=== PATIENT | female | born 1965 | race Caucasian/White ===

== ENCOUNTER 2019-02-06 18:19 | Emergency (ER) | payer MEDICARE, MEDICAID, SELFPAY ==
[2019-02-06 18:21] VITALS: BP 165/94; PULSE 110; RESP 20; TEMP 36.5; O2SAT 99; BMI 35.2
--- NOTE | 2019-02-06 18:26 | ED_ITS ---
Entered by Theresa Freeman, acting as scribe for HPI - Chest Pain General: Chief Complaint: Dizziness Stated Complaint: dizziness Time Seen by Provider: 02/06/19 18:32 Source: patient Mode of arrival: EMS Limitations: no limitations History of Present Illness: HPI narrative: 53 yo female presents with dizziness. per pt she was recently seen and admitted and discharged. pt has chronic shortness of breath. pt denies any other symptoms at this time. Onset (ago): day(s) Prior episodes: Yes Onset: during rest Associated symptoms: Reports dyspnea; Deny abdominal pain, fever(s), nausea or vomiting Review of Systems Const: Reports: other (dizziness episodes); Denies: fever Eyes: Denies: change in vision ENMT: Denies: throat pain or mouth pain Card: Denies: chest pain Resp: Reports: shortness of breath GI: Denies: abdominal pain, nausea, vomiting or diarrhea : Denies: difficulty urinating Musc: Denies: back pain or joint pain Skin/Breast: Denies: rash Neuro: Denies: headache or behavioral changes Psych: Denies: depression Endo: Denies: excessive urination Peter/Lymph: Denies: easy bruising All/Imm: Denies: hives PFSH ED PFSH: Statuses (acute, chronic, etc) shown below reflect problem list status as previously entered and may not be historically accurate Social History Smoking and tobacco status: former smoker Physical Exam Const: COMMON NORMALS: no apparent distress, oriented x3 and healthy appearing HENMT: COMMON NORMALS: normocephalic and external nose normal HEAD & SCALP: normocephalic NOSE: external nose normal Eye: COMMON NORMALS: PERRL PUPIL: Yes PERRL Neck/C-Spine: COMMON NORMALS: full ROM and no lymphadenopathy Chest: COMMONS NORMALS: inspection of chest normal Resp: COMMON NORMALS: normal respiratory effort, no use of accessory muscles and clear to auscultation bilaterally AUSCULTATION: clear to auscultation bilaterally Cardio: COMMON NORMALS: regular rate (tachycardic) and regular rhythm RATE: regular rate (tachycardic) RHYTHM: regular rhythm GI: COMMON NORMALS: normal to inspection, nondistended, normoactive bowel sounds, soft to palpation, non-tender and no masses PALPATION: Yes soft Back/Pelvis: THORACIC SPINE/UPPER BACK: Yes normal to inspection Extremity: COMMON NORMALS: normal to inspection, full ROM and normal capillary refill Neuro: COMMON NORMALS: oriented x3 Psych: COMMON NORMALS: mental status grossly normal and cooperative Skin: COMMON NORMALS: no rashes or lesions noted GENERAL SKIN EXAM: no rashes or lesions noted Course Vital Signs: Vital signs: Vital Signs Temperature 97.9 F 02/07/19 00:03 Pulse Rate 95 02/07/19 01:10 Respiratory Rate 20 H 02/07/19 01:10 Blood Pressure 145/91 02/07/19 00:03 Pulse Oximetry 92 02/07/19 01:10 MDM - Chest Pain MDM Narrative: Medical decision making narrative: Patient presents here with dizziness along with shortness of breath that is chronic in nature. Patient is well-appearing here and in no distress. Patient is stable for discharge and is to follow-up with primary care doctor in 3 to 5 days. Lab Data: Labs: Lab Results 02/06/19 02/06/19 02/06/19 Range/Units 18:45 18:45 18:45 WBC 15.1 H (4.0-10.0) 10^3/ uL RBC 4.04 L (4.1-5.3) 10^6/u L Hgb 12.1 (11.5-15.3) g/dL Hct 37.6 (37.0-47.0) % MCV 93.1 (81-99) fL MCH 30.0 (28.0-34.0) pg MCHC 32.2 (30.0-36.0) g/dL RDW 12.9 (12.1-15.1) % Plt Count 287 (130-400) 10^3/c mm MPV 10.6 H (7.4-10.4) fL Neut % (Auto) 89.7 % Lymph % (Auto) 5.2 % [place] % (Auto) 3.4 % Eos % (Auto) 0.1 % Baso % (Auto) 0.1 % Neut # (Auto) 13.5 H (1.8-7.7) 10^3/u L Lymph # (Auto) 0.8 (0.8-4.8) 10^3/u L [place] # (Auto) 0.5 (0.2-0.9) 10^3/u L Eos # (Auto) 0.0 (0.0-0.8) 10^3/u L Baso # (Auto) 0.0 (0.0-0.1) 10^3/u L Nucleated RBC % (a uto) 0 % Nucleated RBCs # 0.0 /100WBC Sodium 136 (136-145) mmol/L Potassium 4.1 (3.5-5.1) mmol/L Chloride 94 L (98-107) mmol/L Carbon Dioxide 24 (22-29) mmol/L Anion Gap 22.1 H (5-19) BUN 27 H (6-20) mg/dL Creatinine 1.1 H (0.5-0.9) mg/dL GFR Calculation 51.8 L (90-130) mL/min Glucose 186 H (74-109) mg/dL Calcium 10.0 (8.6-10.0) mg/Dl Total Bilirubin 0.7 (0.15-1.2) mg/dL AST 10 (0-32) U/L ALT 9 (0-33) U/L Alkaline Phosphata se 71 (35-105) IU/L Troponin T Baselin e 21 H (0-10) ng/mL Troponin T 120 Min [place] (0-10) ng/mL Delta Troponin T (0-10) ABS# Total Protein 6.7 (6.6-8.7) g/dL Albumin 4.3 (3.5-5.2) g/dL Globulin 2.4 (1.3-4.6) g/dL 02/06/19 Range/Units 20:46 WBC (4.0-10.0) 10^3/ uL RBC (4.1-5.3) 10^6/u L Hgb (11.5-15.3) g/dL Hct (37.0-47.0) % MCV (81-99) fL MCH (28.0-34.0) pg MCHC (30.0-36.0) g/dL RDW (12.1-15.1) % Plt Count (130-400) 10^3/c mm MPV (7.4-10.4) fL Neut % (Auto) % Lymph % (Auto) % [place] % (Auto) % Eos % (Auto) % Baso % (Auto) % Neut # (Auto) (1.8-7.7) 10^3/u L Lymph # (Auto) (0.8-4.8) 10^3/u L [place] # (Auto) (0.2-0.9) 10^3/u L Eos # (Auto) (0.0-0.8) 10^3/u L Baso # (Auto) (0.0-0.1) 10^3/u L Nucleated RBC % (a uto) % Nucleated RBCs # /100WBC Sodium (136-145) mmol/L Potassium (3.5-5.1) mmol/L Chloride (98-107) mmol/L Carbon Dioxide (22-29) mmol/L Anion Gap (5-19) BUN (6-20) mg/dL Creatinine (0.5-0.9) mg/dL GFR Calculation (90-130) mL/min Glucose (74-109) mg/dL Calcium (8.6-10.0) mg/Dl Total Bilirubin (0.15-1.2) mg/dL AST (0-32) U/L ALT (0-33) U/L Alkaline Phosphata se (35-105) IU/L Troponin T Baselin e (0-10) ng/mL Troponin T 120 Min [place] 17.69 H (0-10) ng/mL Delta Troponin T -3.31 L (0-10) ABS# Total Protein (6.6-8.7) g/dL Albumin (3.5-5.2) g/dL Globulin (1.3-4.6) g/dL Imaging Data^: CXR: Attestation: I personally reviewed and interpreted this imaging study as follows: My impression: no acute abnormality EKG Data^: EKG 1: Attestation: I personally reviewed and interpreted this EKG as follows: EKG interpretation date: 02/07/19 EKG interpretation time: 19:40 Interpretation: nsr hr [address] or t wave abnormalities qrs 100 qtc 402 EKG 2: Attestation: I personally reviewed and interpreted this EKG as follows: EKG interpretation date: 02/06/19 EKG interpretation time: 20:45 Interpretation: nsr hr [address] or t wave abnormalites qrs 98 qtc 407 EKG 3: EKG interpretation date: 02/07/19 EKG interpretation time: 00:30 Interpretation: nsr hr [address] or t wave abnormalites qrs 98 qtc 417 Discharge Plan Discharge Patient Disposition: Home, Self-Care Clinical Impression: Dizziness Condition: Stable Discharge Orders: Discharge Order (Routine); Ordered 02/07/19 Ordered By: Tenisha Casey Referrals: Martin Jovel MD [Primary Care Provider] - Discharge Diet: Advance as tolerated Discharge Activity: Resume usual activity Patient Instructions: Dizziness (ED) Discharge Date/Time: 02/07/19 01:00 Coding Level of Care Code ED Or Assistant for Chg Fwd Exam Problem Focused The documentation recorded by the Pete gamboa Bridget Annette, accurately reflects the service I personally performed and the decisions made by Jacinto gleason Korby, MD
[2019-02-06 18:32] VITALS: O2SAT 99
--- NOTE | 2019-02-06 18:32 | XR_ITS ---
WS: [id number] Portable AP upright chest, 02/06/2019 Clinical Data: dyspnea Comparison: Portable chest, 02/01/2019 Findings: No nodules, masses or effusions are seen. The heart is normal. The pulmonary vascularity is not increased. No pneumonia or pneumothorax is seen. Monitor leads are on the chest wall. XR/XR chest 1V 39332 Impression: Negative chest.
--- NOTE | 2019-02-06 18:32 | ECG_ITS ---
Measurements Intervals [place] Rate: 91 P: 51 OR: 112 QRS: 33 QRSD: 98 T: 40 QT: 358 QTc: 442 SINUS RHYTHM WITH SHORT OR INTERVAL POSSIBLE RIGHT VENTRICULAR CONDUCTION DELAY [RSR (QR) IN V1/V2] MINIMAL ST DEPRESSION [0.025+ mV ST DEPRESSION] No previous ECG available for comparison Electronically Signed On 02-07-2019 6:46:03 TOTER by Amanda Bourgeois M.D. [email or web address]/store/[id number]
[2019-02-06] MEDS: sodium chloride 0.9% 1,000 ML 999 ML IV (18:58)
[2019-02-06] MEDS: LORazepam 2 mg/mL INJ 1 mL 1 MG IVP (18:59)
[2019-02-06 19:02] VITALS: BP 169/109; PULSE 85; RESP 21; TEMP 36.7; O2SAT 98
[2019-02-06 19:12] LABS: Troponin(5th) Baseline 21 ng/mL (0-10)
--- NOTE | 2019-02-06 19:27 | PC.NURSE ---
Assisted patient to bedside commode with little assistance. collected urine just in case UA is needed. Noticed patient's IV was not properly secure, altered nurse and was properly re-secured.
[2019-02-06 19:48] LABS: Basophils % 0.1 %; Eosinophils % 0.1 %; Hematocrit 37.6 % (37.0-47.0); Hemoglobin 12.1 g/dL (11.5-15.3); Lymphocytes # 0.8 10^3/uL (0.8-4.8); Lymphocytes % 5.2 %; Mean Corpuscular HGB Conc 32.2 g/dL (30.0-36.0); Mean Corpuscular Volume 93.1 fL (81-99); Mean Platelet Volume 10.6 fL (7.4-10.4); Monocytes # 0.5 10^3/uL (0.2-0.9); Monocytes % 3.4 %; Neutrophils # 13.5 10^3/uL (1.8-7.7); Neutrophils % 89.7 %; Nucleated Red Blood Cells % 0 %; Platelet Count 287 10^3/cmm (130-400); Red Blood Count 4.04 10^6/uL (4.1-5.3); Red Cell Distribution Width 12.9 % (12.1-15.1); White Blood Count 15.1 10^3/uL (4.0-10.0)
--- NOTE | 2019-02-06 19:50 | PC.NURSE ---
Pt resting comfortably. NO needs at present.
[2019-02-06 20:02] VITALS: BP 137/104; PULSE 101; RESP 21; TEMP 36.6; O2SAT 99
[2019-02-06 20:02] LABS: Add RBC Morph No
--- NOTE | 2019-02-06 20:32 | ECG_ITS ---
Measurements Intervals [place] Rate: 98 P: 48 ID: 133 QRS: 30 QRSD: 100 T: 37 QT: 346 QTc: 443 SINUS RHYTHM POSSIBLE RIGHT VENTRICULAR CONDUCTION DELAY [RSR (QR) IN V1/V2] No previous ECG available for comparison Electronically Signed On 02-07-2019 7:01:45 UNINDENTURED APPRENTICE by Amanda Bourgeois M.D. [id number]
[2019-02-06] MEDS: sodium chloride 0.9% 500 ML 999 ML IV (20:52)
--- NOTE | 2019-02-06 21:00 | PC.NURSE ---
At time of EKG patient stated that she was having chest pain, doctor was informed.
[2019-02-06 21:57] VITALS: BP 132/90; PULSE 91; RESP 14; O2SAT 99
[2019-02-06 22:35] LABS: Troponin 5 2HR 17.69 ng/mL (0-10)
[2019-02-06 22:41] LABS: Troponin 5 2HR Delta -3.31 ABS# (0-10)
--- NOTE | 2019-02-06 22:43 | PC.NURSE ---
Patient requested that lights be turned off, lights have been turned off for her comfort.
[2019-02-06 23:00] LABS: Slide Review Slide Review Perform
[2019-02-06 23:37] LABS: Alanine Aminotransferase 9 U/L (0-33); Albumin Level 4.3 g/dL (3.5-5.2); Alkaline Phosphatase 71 IU/L (35-105); Anion Gap 22.1 (5-19); Aspartate Amino Transferase 10 U/L (0-32); Blood Urea Nitrogen 27 mg/dL (6-20); Carbon Dioxide 24 mmol/L (22-29); Chloride 94 mmol/L (98-107); Globulin 2.4 g/dL (1.3-4.6); Glomerular Filtration Rate 51.8 mL/min (90-130); Glucose 186 mg/dL (74-109); Potassium 4.1 mmol/L (3.5-5.1); Sodium 136 mmol/L (136-145); Total Bilirubin 0.7 mg/dL (0.15-1.2); Total Protein 6.7 g/dL (6.6-8.7)
[2019-02-07 00:03] VITALS: BP 145/91; PULSE 85; RESP 17; TEMP 36.6; O2SAT 99
--- NOTE | 2019-02-07 00:32 | ECG_ITS ---
Measurements Intervals [place] Rate: 80 P: 46 NC: 126 QRS: 29 QRSD: 98 T: 31 QT: 380 QTc: 441 SINUS RHYTHM POSSIBLE RIGHT VENTRICULAR CONDUCTION DELAY [RSR (QR) IN V1/V2] Compared to ECG 02/01/2019 19:52:19 Short NC interval no longer present Electronically Signed On 02-07-2019 6:54:40 [employer]KER by Amanda Bourgeois M.D. [id number]
[2019-02-07 01:10] VITALS: PULSE 95; RESP 20; O2SAT 92
== END 2019-02-07 01:00 | disposition home or self-care (01) ==
PROVIDERS: Emergency Provider Emergency Medicine; Family Provider Family Medicine; PCP Family Medicine
DX: R42 Dizziness and giddiness (principal); Z87.891 Personal history of nicotine dependence
CPT/HCPCS: 36415; 71045; 80053; 84484; 85025; 93005; 96360; 96361; 96374; 99283; J2060; J7030; J7040

== ENCOUNTER 2019-02-11 07:28 | Outpatient (CLI) | payer MEDICARE, MEDICAID, SELFPAY | END 2019-02-11 07:29 | disposition home or self-care (01) | PROVIDERS: Family Provider Family Medicine; PCP Family Medicine; Visit Provider Psychiatry & Neurology Clinical Neurophysiology | DX: R07.9 Chest pain, unspecified (principal) ==

== ENCOUNTER 2019-02-18 14:33 | Emergency (ER) | payer MEDICARE, MEDICAID, SELFPAY ==
[2019-02-18 14:34] VITALS: O2SAT 99
[2019-02-18 14:44] VITALS: BP 138/93; PULSE 87; RESP 24; TEMP 36.6; O2SAT 99; BMI 32.8
--- NOTE | 2019-02-18 14:48 | ED_ITS ---
Entered by Theresa Freeman, acting as scribe for HPI - Chest Pain General: Chief Complaint: Chest Pain Stated Complaint: chest pains Time Seen by Provider: 02/18/19 15:01 Source: patient and other (PCP nurse brought her to ED from clinic) Mode of arrival: wheelchair Limitations: no limitations History of Present Illness: HPI narrative: 53 yo female presents with chest pain. pt states this started today while at PCP clinic. pt has had shortness of breath. pt states she gets chest pain chronically but worsened today. pt states she is on oxygen at home as needed. pt denies any other symptoms at this time. MD complaint: chest pain Pertinent past history: other (COPD) Onset (ago): hour(s) (today) Timing of current episode: constant Prior episodes: Yes Onset: during rest Pain location: substernal Pain radiation: back Severity: mild Quality: tightness Exacerbating factors: nothing Associated symptoms: Reports no associated symptoms; Deny abdominal pain, fever(s), nausea, palpitations, syncope or vomiting Review of Systems Const: Denies: fever, chills, body aches, fatigue, malaise or night sweats Eyes: Denies: change in vision or blurry vision ENMT: Denies: throat pain, oral sores/lesions, dental pain, nasal discharge or nasal congestion Card: Denies: palpitations, irregular heart rhythm, edema, syncope, shortness of breath on exertion, shortness of breath when lying down or leg pain with exertion Resp: Denies: wheezing GI: Denies: abdominal pain, nausea, vomiting, vomiting blood, coffee grounds in vomit, difficulty swallowing, heartburn/indigestion, diarrhea, constipation, cramping, blood in stool or black tarry stool : Denies: flank pain, painful urination, urinary frequency, urinary urgency, urinary incontinence or blood in urine Musc: Denies: neck pain, back pain, extremity pain, extremity swelling, joint pain or joint swelling Skin/Breast: Denies: rash, itching or redness Neuro: Denies: headache, numbness in extremities, weakness in extremities, c hanges in sensation, lack of coordination, difficulty walking, frequent falls, dizziness, vertigo or confusion Psych: Denies: anxiety, depression, loss of interest, visual hallucinations, auditory hallucinations, suicidal ideation or homicidal ideation Endo: Denies: excessive urination, excessive thirst, tired all the time or cold intolerance Peter/Lymph: Denies: easy bruising, easy bleeding, petechiae, enlarged lymph nodes or tender lymph nodes PFSH ED PFSH: Statuses (acute, chronic, etc) shown below reflect problem list status as previously entered and may not be historically accurate Social History Smoking and tobacco status: unknown if ever smoked Quit status (tobacco): has quit using tobacco Year quit tobacco: 2018-5 ciggs/day Alcohol intake: never Current gender identity: Female Physical Exam Const: COMMON NORMALS: average body habitus and alert GENERAL APPEARANCE: cooperative, comfortable, well kempt and well developed NUTRITIONAL APPEARANCE: obese ORIENTATION/CONSCIOUSNESS: Yes awake, Yes oriented to person, Yes oriented to place and Yes oriented to time HENMT: COMMON NORMALS: normocephalic, head/scalp atraumatic, EAC's normal, TM's normal bilaterally, external nose normal, moist oral mucous membranes and oropharynx normal HEAD & SCALP: normocephalic and atraumatic NOSE: external nose normal EXTERNAL AUDITORY CANAL: EAC's normal TYMPANIC MEMBRANE: TM's normal bilaterally MOUTH: oral and palatal mucosa normal, lip normal and tongue normal THROAT: posterior oropharynx normal and tonsils normal Eye: COMMON NORMALS: PERRL, EOMs intact bilaterally, conjunctivae normal and no scleral icterus CONJUNCTIVA: Yes conjunctivae normal PUPIL: Yes PERRL Neck/C-Spine: COMMON NORMALS: full ROM, no lymphadenopathy, supple, no meningeal signs and thyroid normal THYROID: thyroid normal and asymmetrical Lymph: LYMPHATIC: no lymphadenopathy noted Cardio: COMMON NORMALS: regular rate and regular rhythm RATE: regular rate RHYTHM: regular rhythm HEART SOUNDS: no murmurs GI: COMMON NORMALS: normal to inspection, nondistended, normoactive bowel sounds, soft to palpation and no hepatosplenomegaly PALPATION: Yes soft and Yes no hepatosplenomegaly : COMMON NORMALS: Yes no CVA tenderness BLADDER/KIDNEY EXAM: Yes no CVA tenderness Back/Pelvis: COMMON NORMALS: no CVA tenderness LUMBAR SPINE/LOWER BACK: Yes normal to inspection Extremity: COMMON NORMALS: no clubbing, cyanosis or edema, no calf tenderness and no pedal edema Neuro: SENSORIUM/ORIENTATION: Yes alert, Yes oriented to person, Yes oriented to place and Yes oriented to time MENINGEAL SIGNS: Yes no meningeal signs Psych: APPEARANCE: Yes well kempt Skin: COMMON NORMALS: no rashes or lesions noted and skin turgor normal GENERAL SKIN EXAM: no rashes or lesions noted and turgor normal Course ED course: Themselves revolved resolved reviewed findings with the patient. No recommendations for admission. Continue same previous prescriptions return if has any complications or problems. Vital Signs: Vital signs: Vital Signs Temperature 97.8 F 02/18/19 14:44 Pulse Rate 70 02/18/19 18:10 Respiratory Rate 15 02/18/19 18:10 Blood Pressure 140/78 02/18/19 18:10 Pulse Oximetry 98 02/18/19 18:10 MDM - Chest Pain Lab Data: Labs: Lab Results 02/18/19 02/18/19 02/18/19 Range/Units 14:58 14:58 14:58 WBC 11.8 H (4.0-10.0) 10^3/ uL RBC 4.24 (4.1-5.3) 10^6/u L Hgb 12.7 (11.5-15.3) g/dL Hct 39.2 (37.0-47.0) % MCV 92.5 (81-99) fL MCH 30.0 (28.0-34.0) pg MCHC 32.4 (30.0-36.0) g/dL RDW 13.3 (12.1-15.1) % Plt Count 325 (130-400) 10^3/c mm MPV 9.6 (7.4-10.4) fL Neut % (Auto) 82.0 % Lymph % (Auto) 12.5 % [place] % (Auto) 3.6 % Eos % (Auto) 0.0 % Baso % (Auto) 0.2 % Neut # (Auto) 9.7 H (1.8-7.7) 10^3/u L Lymph # (Auto) 1.5 (0.8-4.8) 10^3/u L [place] # (Auto) 0.4 (0.2-0.9) 10^3/u L Eos # (Auto) 0.0 (0.0-0.8) 10^3/u L Baso # (Auto) 0.0 (0.0-0.1) 10^3/u L Nucleated RBC % (a uto) 0 % Nucleated RBCs # 0.0 /100WBC Sodium 131 L (136-145) mmol/L Potassium 4.5 (3.5-5.1) mmol/L Chloride 90 L (98-107) mmol/L Carbon Dioxide 26 (22-29) mmol/L Anion Gap 19.5 H (5-19) BUN 29 H (6-20) mg/dL Creatinine 1.0 H (0.5-0.9) mg/dL GFR Calculation 57.8 L (90-130) mL/min Glucose 163 H (74-109) mg/dL Calcium 10.0 (8.6-10.0) mg/Dl Troponin T Baselin e 41 H (0-10) ng/mL Troponin T 120 Min [place] (0-10) ng/mL Delta Troponin T (0-10) ABS# 02/18/19 Range/Units 16:57 WBC (4.0-10.0) 10^3/ uL RBC (4.1-5.3) 10^6/u L Hgb (11.5-15.3) g/dL Hct (37.0-47.0) % MCV (81-99) fL MCH (28.0-34.0) pg MCHC (30.0-36.0) g/dL RDW (12.1-15.1) % Plt Count (130-400) 10^3/c mm MPV (7.4-10.4) fL Neut % (Auto) % Lymph % (Auto) % [place] % (Auto) % Eos % (Auto) % Baso % (Auto) % Neut # (Auto) (1.8-7.7) 10^3/u L Lymph # (Auto) (0.8-4.8) 10^3/u L [place] # (Auto) (0.2-0.9) 10^3/u L Eos # (Auto) (0.0-0.8) 10^3/u L Baso # (Auto) (0.0-0.1) 10^3/u L Nucleated RBC % (a uto) % Nucleated RBCs # /100WBC Sodium (136-145) mmol/L Potassium (3.5-5.1) mmol/L Chloride (98-107) mmol/L Carbon Dioxide (22-29) mmol/L Anion Gap (5-19) BUN (6-20) mg/dL Creatinine (0.5-0.9) mg/dL GFR Calculation (90-130) mL/min Glucose (74-109) mg/dL Calcium (8.6-10.0) mg/Dl Troponin T Baselin e (0-10) ng/mL Troponin T 120 Min [place] 37.64 H (0-10) ng/mL Delta Troponin T -3.36 L (0-10) ABS# Imaging Data^: CXR: Radiologist's impression: [address] [address] XRay Report Signed Patient: Crystal Pierre #: [id number] : 1965Acct#:[id number] Age/Sex: 53 / FADM Date: 02/18/19 Loc: ERRoom/Bed: Attending Dr: Ordering Provider/Ordering MD: Joshua Hale DO Date of Service: 02/18/19 Procedure(s): XR chest 1V portable [id number] Accession Number(s): [id number] Report Number: [id number] WS: [id number] Portable AP upright chest, 02/18/2019 Clinical Data: chest pain Comparison: Portable chest, 02/06/2019 Findings: No nodules, masses or effusions are seen. The heart is normal. The pulmonary vascularity is not remarkable. No pneumonia or pneumothorax is present. The aortic arch and descending aorta show tortuosity. XR/XR chest 1V portable [id number] Impression: Atherosclerosis. Dictated By:Jenae Hutchinson MD Signed By:Jenae Hutchinson MDSigned Date/Time:02/18/191524 DD/ 22 Discharge Plan Discharge Patient Disposition: Home, Self-Care Clinical Impression: Atypical chest pain, Chronic dyspnea Condition: Stable Prescriptions: No Action montelukast [Singulair] 10 mg tablet 10 mg PO DAILY RF: 0 levothyroxine 88 mcg capsule 88 mcg PO DAILY RF: 0 levetiracetam 250 mg tablet 250 mg PO BID RF: 0 potassium chloride 20 mEq tablet extended release 20 meq PO BID RF: 0 aspirin [Adult Aspirin Regimen] 81 mg tablet,delayed release (DR/EC) 81 mg PO DAILY RF: 0 bumetanide 2 mg tablet 2 mg PO DAILY RF: 0 pantoprazole [Protonix] 40 mg tablet,delayed release (DR/EC) 40 mg PO DAILY RF: 0 atorvastatin 20 mg tablet 20 mg PO BEDTIME RF: 0 albuterol sulfate [ProAir HFA] 90 mcg/actuation HFA aerosol inhaler 2 puff INHALATION Q4H PRN (Reason: Shortness Of Breath) RF: 0 metolazone 2.5 mg Tablet See Rx Instructions .ROUTE .COMPLEX RF: 0 Ultram 50 mg Tablet 50 mg PO PRN PRN (Reason: Pain) RF: 0 spironolactone 25 mg Tablet 25 mg PO DAILY RF: 0 diclofenac sodium 1 % Gel 2 - 4 g TOPICAL QID PRN (Reason: UNKNOWN) RF: 0 magnesium oxide 400 mg magnesium Tablet 400 mg PO DAILY RF: 0 albuterol sulfate 2.5 mg /3 mL (0.083 %) Solution For Nebulization 2.5 mg INHALATION Q4H PRN (Reason: Shortness Of Breath) RF: 0 Acetaminophen Extra Strength 500 mg Tablet 500 mg PO PRN RF: 0 isosorbide dinitrate 30 mg Tablet 15 mg PO Q12H RF: 0 Pepto-Bismol 262 mg/15 mL Suspension See Rx Instructions .ROUTE .COMPLEX RF: 0 Tums 200 mg calcium (500 mg) Tablet,Chewable See Rx Instructions .ROUTE .COMPLEX RF: 0 metoprolol tartrate 50 mg Tablet 50 mg PO BID RF: 0 ibuprofen 200 mg Tablet PRN RF: 0 Nitrostat 0.4 mg Tablet, Sublingual 0.4 mg SUBLINGUAL Q5M PRN (Reason: Chest Pain) RF: 0 budesonide 0.5 mg/2 mL Suspension For Nebulization 0.5 mg INHALATION BID RF: 0 Nystop 100,000 unit/gram Powder TOPICAL .CCOMPLEX RF: 0 ipratropium bromide 0.02 % Solution See Rx Instructions .ROUTE .COMPLEX RF: 0 naproxen 500 mg Tablet 500 mg PO PRN RF: 0 Vitamin D3 1,000 unit Tablet,Chewable 1,000 unit PO DAILY RF: 0 Mucinex 600 mg Tablet Extended Release 12hr 1,200 mg PO BID RF: 0 Discharge Orders: Discharge Order (Routine); Ordered 02/18/19 Ordered By: Joshua Hale Referrals: Martin Jovel MD [Primary Care Provider] - Discharge Date/Time: 02/18/19 18:11 Coding Level of Care Code ED Processing Operator for Chg Fwd Exam Problem Focused The documentation recorded by the Pete gamboa Bridget Annette, accurately reflects the service I personally performed and the decisions made by Geoffrey gleason Curtis L, Feb 18, 2019 14:33
--- NOTE | 2019-02-18 15:02 | ECG_ITS ---
Measurements Intervals [place] Rate: 79 P: 48 ME: 109 QRS: 48 QRSD: 90 T: 57 QT: 353 QTc: 405 SINUS RHYTHM WITH SHORT ME INTERVAL POSSIBLE RIGHT VENTRICULAR CONDUCTION DELAY [RSR (QR) IN V1/V2] Compared to ECG 02/07/2019 00:30:55 Short ME interval now present Electronically Signed On 02-18-2019 19:28:23 NON CATEGORICAL PRESCHOOL TEACHER by Funmilayo De La Rosa M.D. [id number] f
--- NOTE | 2019-02-18 15:02 | XR_ITS ---
WS: [id number] Portable AP upright chest, 02/18/2019 Clinical Data: chest pain Comparison: Portable chest, 02/06/2019 Findings: No nodules, masses or effusions are seen. The heart is normal. The pulmonary vascularity is not remarkable. No pneumonia or pneumothorax is present. The aortic arch and descending aorta show t ortuosity. XR/XR chest 1V portable [id number] Impression: Atherosclerosis.
[2019-02-18 15:11] LABS: Basophils % 0.2 %; Hematocrit 39.2 % (37.0-47.0); Hemoglobin 12.7 g/dL (11.5-15.3); Lymphocytes # 1.5 10^3/uL (0.8-4.8); Lymphocytes % 12.5 %; Mean Corpuscular HGB Conc 32.4 g/dL (30.0-36.0); Mean Corpuscular Volume 92.5 fL (81-99); Mean Platelet Volume 9.6 fL (7.4-10.4); Monocytes # 0.4 10^3/uL (0.2-0.9); Monocytes % 3.6 %; Neutrophils # 9.7 10^3/uL (1.8-7.7); Nucleated Red Blood Cells % 0 %; Platelet Count 325 10^3/cmm (130-400); Red Blood Count 4.24 10^6/uL (4.1-5.3); Red Cell Distribution Width 13.3 % (12.1-15.1); White Blood Count 11.8 10^3/uL (4.0-10.0)
[2019-02-18 15:28] LABS: Anion Gap 19.5 (5-19); Blood Urea Nitrogen 29 mg/dL (6-20); Carbon Dioxide 26 mmol/L (22-29); Chloride 90 mmol/L (98-107); Glomerular Filtration Rate 57.8 mL/min (90-130); Glucose 163 mg/dL (74-109); Potassium 4.5 mmol/L (3.5-5.1); Sodium 131 mmol/L (136-145)
[2019-02-18 15:31] LABS: Troponin(5th) Baseline 41 ng/mL (0-10)
[2019-02-18 16:08] VITALS: BP 140/73; PULSE 80; RESP 16; O2SAT 100
--- NOTE | 2019-02-18 16:24 | PC.NURSE ---
Patient assisted to bedside commode by tech.
--- NOTE | 2019-02-18 17:02 | ECG_ITS ---
Measurements Intervals [place] Rate: 74 P: 43 MN: 121 QRS: 17 QRSD: 92 T: 29 QT: 362 QTc: 403 SINUS RHYTHM POSSIBLE RIGHT VENTRICULAR CONDUCTION DELAY [RSR (QR) IN V1/V2] Compared to ECG 02/07/2019 00:30:55 No significant changes Electronically Signed On 02-18-2019 19:37:06 [employer] by Funmilayo De La Rosa M.D. [id number] f
[2019-02-18 17:19] LABS: Troponin 5 2HR 37.64 ng/mL (0-10)
[2019-02-18 17:27] LABS: Troponin 5 2HR Delta -3.36 ABS# (0-10)
[2019-02-18 18:10] VITALS: BP 140/78; PULSE 70; RESP 15; O2SAT 98
== END 2019-02-18 18:11 | disposition home or self-care (01) ==
PROVIDERS: Emergency Provider Family Medicine; Family Provider Family Medicine; PCP Family Medicine
DX: R07.89 Other chest pain (principal); R06.00 Dyspnea, unspecified; Z79.82 Long term (current) use of aspirin; Z87.891 Personal history of nicotine dependence
CPT/HCPCS: 36415; 71045; 80048; 84484; 85025; 93005; 99282

== ENCOUNTER 2019-03-19 06:51 | Day surgery (SDC) | payer MEDICARE, MEDICAID, SELFPAY ==
[2019-03-18 11:26] VITALS: BMI 37.5
--- NOTE | 2019-03-19 07:03 | ANES.PREANE2 ---
Pre-Anesthetic Assessment Pre-Anesthetic Assessment: Height/Weight: Height 1.7 m Weight 108.862 kg Preop Diagnosis: GERD/Colon CA screening Proposed Procedure: Operation Date: 03/19/19 09:00 Proposed Procedures p EGD/COLON [id number] K21.9 Z12.11(Not Applicable) - Gonzalez Caban MD s Colonoscopy(Not Applicable) - Gonzalez Caban MD Was Beta Francisco Javier taken within 24 hours: Yes (05:30) Last Intake: 22:00 Social: Packs per day: 1/2 Pack years: 19 Comment: quit 12/25 Exam: Pre-Anes Outpt Exam: alert, oriented x 3, clear to auscultation bilaterally and regular rate & rhythm Airway: Submandibular: WNL Cervical ROM: Other MP: 2 Dentition: False Pulmonary: Pulmonary: COPD and Sleep apnea Comments: Home 02 @ 2.5 lpm x 3 months qHS CV/HEM: CV/HEM: HTN Comments: Rx'd 5 years stress test negative GI: GI: GERD Metabolic: Metabolic: Thyroid Comments: replacement 3 years, increased 2 months Musc/skel: Musc/skel: Lower Back Pain Neuropsych: Neuropsych: Seizure Comments: Grand mal, last 6 months ago Anesthetic Plan: ASA status: 3 Anesthesia: General PFSH Anesthesia PFSH: Social History Smoking and tobacco status: former smoker Quit status (tobacco): has quit using tobacco Year quit tobacco: 2019 - 1-5 ciggs/day Alcohol intake: never Lives independently: Yes Household members: none Housing: Apartment Current occupational status: disabled History of recent travel: No Current gender identity: Female Data Anesthesia Cardiac Studies: No Data to Display
[2019-03-19 07:50] VITALS: BP 150/87; PULSE 88; RESP 18; TEMP 36.5; O2SAT 98
[2019-03-19] MEDS: sodium chloride 0.9% 1,000 ML 30 ML (08:03)
[2019-03-19 09:23] VITALS: BP 120/76; PULSE 81; RESP 16; TEMP 36.2; O2SAT 97
--- NOTE | 2019-03-19 09:33 | SUR.PHASEII ---
pt transported per TS.
[2019-03-19 09:47] VITALS: BP 127/78; PULSE 79; RESP 16; TEMP 36.2; O2SAT 98
--- NOTE | 2019-03-27 13:59 | W.PM.OPSUD ---
Surgery/Procedure H&P Update DATE OF PROCEDURE: March 19, 2019 DATE H&P PERFORMED: 03/04/19 H&P UPDATE INFORMATION: I have reviewed H&P completed within last 30 days, I have examined patient prior to procedure and No changes to prior documentation PREOP DIAGNOSIS: GERD screening colonoscopy PLANNED PROCEDURE: Operation Date: 03/19/19 09:00 Proposed Procedures p EGD/COLON [id number] K21.9 Z12.11(Not Applicable) - Gonzalez Caban MD s Colonoscopy(Not Applicable) - Gonzalez Caban MD
== END 2019-03-19 10:08 | disposition home or self-care (01) ==
PROVIDERS: Family Provider Family Medicine; PCP Family Medicine; Visit Provider Surgery
PROC: 0DJ08ZZ Inspection of Upper Intestinal Tract, Via Natural or Artificial Opening Endoscopic (ICD-10-PCS; CPT 43235; principal; 2019-03-19 09:00)
PROC: 0DJD8ZZ Inspection of Lower Intestinal Tract, Via Natural or Artificial Opening Endoscopic (ICD-10-PCS; CPT 45378; 2019-03-19 09:00)
DX: Z12.11 Encounter for screening for malignant neoplasm of colon (principal); K21.9 Gastro-esophageal reflux disease without esophagitis; E03.9 Hypothyroidism, unspecified; Z87.891 Personal history of nicotine dependence; G47.30 Sleep apnea, unspecified; I10 Essential (primary) hypertension; J44.9 Chronic obstructive pulmonary disease, unspecified
CPT/HCPCS: 12345; 43235; G0121; J2704; J7030

== ENCOUNTER 2019-03-25 10:05 | Outpatient (CLI) | payer MEDICARE, MEDICAID, SELFPAY ==
--- NOTE | 2019-03-25 10:13 | XR_ITS ---
WS: [id number] XR lumbar spine 2-3V* 19762 REASON FOR EXAM: LOW BACK PAIN FINDINGS: Lumbarization of the first sacral segment with 6 functional lumbar vertebra . Lamina, pedicle, spinous process, transverse processes are all normal. Questionable hemangioma the L5 vertebra. XR/XR lumbar spine 2-3V* 30775 IMPRESSION: Lumbarization of the first sacral segment. Questionable hemangioma the L5 vertebra.
== END 2019-03-25 10:06 | disposition home or self-care (01) ==
LOC: RAD 10:10
PROVIDERS: Family Provider Family Medicine; PCP Family Medicine; Visit Provider Nurse Practitioner Family
DX: Q76.49 Other congenital malformations of spine, not associated with scoliosis (principal)
CPT/HCPCS: 72100

== ENCOUNTER 2019-03-29 23:34 | Emergency (ER) | payer MEDICARE, MEDICAID, SELFPAY ==
[2019-03-29 23:38] VITALS: BP 125/83; PULSE 79; RESP 26; TEMP 36.6; O2SAT 98; BMI 37.5
--- NOTE | 2019-03-29 23:41 | XR_ITS ---
WS: [id number] XR chest 1V portable [id number] REASON FOR EXAM: dyspnea/cough FINDINGS: The heart and mediastinal interfaces are normal. The lung odonnell are well-aerated. There is no pneumonia, pleural effusion, pulmonary edema, or mass e ffect. The hilum and apices are normal. No osseous abnormalities. XR/XR chest 1V portable [id number] IMPRESSION: Negative chest for acute pathology.
[2019-03-30 00:02] LABS: Basophils # 0.1 10^3/uL (0.0-0.1); Basophils % 0.7 %; Eosinophils # 0.3 10^3/uL (0.0-0.8); Eosinophils % 2.6 %; Hematocrit 34.5 % (37.0-47.0); Hemoglobin 10.9 g/dL (11.5-15.3); Lymphocytes # 2.9 10^3/uL (0.8-4.8); Lymphocytes % 25.5 %; Mean Corpuscular HGB Conc 31.6 g/dL (30.0-36.0); Mean Corpuscular Hemoglobin 29.5 pg (28.0-34.0); Mean Corpuscular Volume 93.5 fL (81-99); Mean Platelet Volume 9.8 fL (7.4-10.4); Monocytes % 8.3 %; Neutrophils # 7.1 10^3/uL (1.8-7.7); Nucleated Red Blood Cells % 0 %; Platelet Count 353 10^3/cmm (130-400); Red Blood Count 3.69 10^6/uL (4.1-5.3); Red Cell Distribution Width 13.7 % (12.1-15.1); White Blood Count 11.5 10^3/uL (4.0-10.0)
[2019-03-30 00:15] LABS: Alanine Aminotransferase 9 U/L (0-33); Albumin Level 3.8 g/dL (3.5-5.2); Alkaline Phosphatase 103 IU/L (35-105); Anion Gap 14.4 (5-19); Aspartate Amino Transferase 16 U/L (0-32); Blood Urea Nitrogen 36 mg/dL (6-20); Calcium 9.2 mg/dL (8.5-10.5); Carbon Dioxide 29 mmol/L (22-29); Chloride 95 mmol/L (98-107); Globulin 3.3 g/dL (1.3-4.6); Glomerular Filtration Rate 51.8 mL/min (90-130); Glucose 121 mg/dL (65-115); Potassium 3.4 mmol/L (3.5-5.1); Sodium 135 mmol/L (136-145); Total Bilirubin 0.7 mg/dL (0.15-1.2); Total Protein 7.1 g/dL (6.6-8.7)
[2019-03-30 00:32] LABS: Troponin(5th) Baseline 28 ng/mL (0-10)
[2019-03-30 02:28] LABS: Troponin 5 2HR 25.52 ng/mL (0-10); Troponin 5 2HR Delta -2.48 ABS# (0-10)
--- NOTE | 2019-03-30 02:44 | W.ED.BACK ---
HPI - Back Pain/Injury General: Chief Complaint: Back Pain/Injury Stated Complaint: NECK PAIN X 3 WEEKS Time Seen by Provider: 03/30/19 02:11 History of Present Illness: HPI Narrative: Patient is a 53-year-old female comes in to the ED with neck and back pain after falling 3 weeks ago. Patient is able to ambulate since fall but states she does have some neck and back pain. She denies any bladder or bowel symptoms. She denies any numbness or tingling down the extremities or any weakness to the extremities. Denies any loss of consciousness, or vomiting after fall. Associated symptoms: Deny abdominal pain, chills, dysuria, fatigue, fever(s), hematuria, nausea or vomiting Review of Systems Const: Denies: fever, chills or fatigue Eyes: Denies: change in vision or eye discomfort ENMT: Denies: throat pain, painful swallowing, nasal discharge or nasal congestion Card: Denies: chest pain, palpitations, edema, swelling of feet/ankles, shortness of breath on exertion or shortness of breath when lying down Resp: Denies: shortness of breath, productive cough or non-productive cough GI: Denies: abdominal pain, nausea, vomiting, diarrhea, constipation or blood in stool : Denies: flank pain, painful urination or blood in urine Musc: Reports: neck pain, back pain and extremity swelling (Chronic-Bilateral LE edema) Skin/Breast: Denies: rash or new lesion Neuro: Denies: headache, numbness in extremities or weakness in extremities PFSH ED PFSH: Medical History GERD (gastroesophageal reflux disease) Hypothyroidism (acquired) Seizure disorder Surgical History H/O esophagogastroduodenoscopy 03/19/2019: Normal H/O thyroidectomy History of carpal tunnel surgery History of colonoscopy 03/19/2019: Normal repeat in 10 years Hx of section Social History Smoking and tobacco status: former smoker Quit status (tobacco): has quit using tobacco Year quit tobacco: 2019 - 1-5 ciggs/day Alcohol intake: never Lives independently: Yes Household members: none Housing: Apartment Current occupational status: disabled History of recent travel: No Current gender identity: Female Physical Exam Const: COMMON NORMALS: oriented x3 HENMT: COMMON NORMALS: normocephalic HEAD & SCALP: normocephalic MOUTH: oral and palatal mucosa normal THROAT: posterior oropharynx normal and uvula midline Neck/C-Spine: COMMON NORMALS: supple GENERAL: Yes normal visual inspection CERVICAL SPINE: Yes paracervical muscle tenderness and Yes trapezius muscle tenderness Resp: COMMON NORMALS: normal respiratory effort, no retractions, no use of accessory muscles and clear to auscultation bilaterally AUSCULTATION: clear to auscultation bilaterally Cardio: COMMON NORMALS: regular rate, regular rhythm, S1 normal heart sound, S2 normal heart sound, no gallops, no clicks, no murmurs and peripheral pulses 2+ throughout RATE: regular rate RHYTHM: regular rhythm HEART SOUNDS: S1 normal and S2 normal PERIPHERAL PULSES: pulses 2+ throughout GI: COMMON NORMALS: normal to inspection, nondistended, normoactive bowel sounds, soft to palpation, non-tender, no hepatosplenomegaly and no masses AUSCULTATION: Yes normoactive bowel sounds PALPATION: Yes soft, No tender, Yes no hepatosplenomegaly and No hepatosplenomegaly : COMMON NORMALS: Yes no CVA tenderness BLADDER/KIDNEY EXAM: Yes no CVA tenderness Back/Pelvis: COMMON NORMALS: no CVA tenderness LUMBAR SPINE/LOWER BACK: Yes paraspinal muscle tenderness Neuro: COMMON NORMALS: oriented x3, CN's II-XII intact bilaterally, moves all extremities, no focal motor deficits and no sensory deficits noted SENSORY EXAM: Yes extremities (intact) MOTOR EXAM: strength 5/5 throughout Course ED course: Patient's neck and back pain improved after Toradol and muscle relaxer. Vital Signs: Vital signs: Vital Signs Temperature 97.9 F 03/29/19 23:38 Pulse Rate 75 03/30/19 04:07 Respiratory Rate 14 03/30/19 04:07 Blood Pressure 143/98 03/30/19 04:07 Pulse Oximetry 98 03/30/19 04:07 MDM - Back Pain/Injury Lab Data: Attestation: I reviewed the patient's lab results. Labs: Lab Results 03/29/19 03/29/19 03/29/19 Range/Units 23:41 23:41 23:41 WBC 11.5 H (4.0-10.0) 10^3/ uL RBC 3.69 L (4.1-5.3) 10^6/u L Hgb 10.9 L (11.5-15.3) g/dL Hct 34.5 L (37.0-47.0) % MCV 93.5 (81-99) fL MCH 29.5 (28.0-34.0) pg MCHC 31.6 (30.0-36.0) g/dL RDW 13.7 (12.1-15.1) % Plt Count 353 (130-400) 10^3/c mm MPV 9.8 (7.4-10.4) fL Neut % (Auto) 62.0 % Lymph % (Auto) 25.5 % [place] % (Auto) 8.3 % Eos % (Auto) 2.6 % Baso % (Auto) 0.7 % Neut # (Auto) 7.1 (1.8-7.7) 10^3/u L Lymph # (Auto) 2.9 (0.8-4.8) 10^3/u L [place] # (Auto) 1.0 H (0.2-0.9) 10^3/u L Eos # (Auto) 0.3 (0.0-0.8) 10^3/u L Baso # (Auto) 0.1 (0.0-0.1) 10^3/u L Nucleated RBC % (a uto) 0 % Nucleated RBCs # 0.0 /100WBC Sodium 135 L (136-145) mmol/L Potassium 3.4 L (3.5-5.1) mmol/L Chloride 95 L (98-107) mmol/L Carbon Dioxide 29 (22-29) mmol/L Anion Gap 14.4 (5-19) BUN 36 H (6-20) mg/dL Creatinine 1.1 H (0.5-0.9) mg/dL GFR Calculation 51.8 L (90-130) mL/min Glucose 121 H (65-115) mg/dL Calcium 9.2 (8.5-10.5) mg/dL Total Bilirubin 0.7 (0.15-1.2) mg/dL AST 16 (0-32) U/L ALT 9 (0-33) U/L Alkaline Phosphata se 103 (35-105) IU/L Troponin T Baselin e 28 H (0-10) ng/mL Troponin T 120 Min [place] (0-10) ng/mL [place] Troponin T (0-10) ABS# Total Protein 7.1 (6.6-8.7) g/dL Albumin 3.8 (3.5-5.2) g/dL Globulin 3.3 (1.3-4.6) g/dL 03/30/19 Range/Units 01:58 WBC (4.0-10.0) 10^3/ uL RBC (4.1-5.3) 10^6/u L Hgb (11.5-15.3) g/dL Hct (37.0-47.0) % MCV (81-99) fL MCH (28.0-34.0) pg MCHC (30.0-36.0) g/dL RDW (12.1-15.1) % Plt Count (130-400) 10^3/c mm MPV (7.4-10.4) fL Neut % (Auto) % Lymph % (Auto) % [place] % (Auto) % Eos % (Auto) % Baso % (Auto) % Neut # (Auto) (1.8-7.7) 10^3/u L Lymph # (Auto) (0.8-4.8) 10^3/u L [place] # (Auto) (0.2-0.9) 10^3/u L Eos # (Auto) (0.0-0.8) 10^3/u L Baso # (Auto) (0.0-0.1) 10^3/u L Nucleated RBC % (a uto) % Nucleated RBCs # /100WBC Sodium (136-145) mmol/L Potassium (3.5-5.1) mmol/L Chloride (98-107) mmol/L Carbon Dioxide (22-29) mmol/L Anion Gap (5-19) BUN (6-20) mg/dL Creatinine (0.5-0.9) mg/dL GFR Calculation (90-130) mL/min Glucose (65-115) mg/dL Calcium (8.5-10.5) mg/dL Total Bilirubin (0.15-1.2) mg/dL AST (0-32) U/L ALT (0-33) U/L Alkaline Phosphata se (35-105) IU/L Troponin T Baselin e (0-10) ng/mL Troponin T 120 Min [place] 25.52 H (0-10) ng/mL [place] Troponin T -2.48 L (0-10) ABS# Total Protein (6.6-8.7) g/dL Albumin (3.5-5.2) g/dL Globulin (1.3-4.6) g/dL Discharge Plan Discharge Patient Disposition: Home, Self-Care Clinical Impression: Lumbar back pain Neck muscle strain Qualifiers: Encounter type: initial encounter Qualified Code(s): S16.1XXA - Strain of muscle, fascia and tendon at neck level, initial encounter Condition: Stable Prescriptions: No Action montelukast [Singulair] 10 mg tablet 10 mg PO DAILY RF: 0 levothyroxine 88 mcg capsule 88 mcg PO DAILY RF: 0 levetiracetam 250 mg tablet 250 mg PO BID RF: 0 aspirin [Adult Aspirin Regimen] 81 mg tablet,delayed release (DR/EC) 81 mg PO DAILY RF: 0 bumetanide 2 mg tablet 2 mg PO DAILY RF: 0 pantoprazole [Protonix] 40 mg tablet,delayed release (DR/EC) 40 mg PO DAILY RF: 0 atorvastatin 20 mg tablet 20 mg PO BEDTIME RF: 0 albuterol sulfate [ProAir HFA] 90 mcg/actuation HFA aerosol inhaler 2 puff INHALATION Q4H PRN (Reason: Shortness Of Breath) RF: 0 cetirizine 10 mg capsule 10 mg PO QDAY RF: 0 spironolactone 25 mg Tablet 25 mg PO DAILY RF: 0 diclofenac sodium 1 % Gel 2 - 4 g TOPICAL QID PRN (Reason: UNKNOWN) RF: 0 magnesium oxide 400 mg magnesium Tablet 400 mg PO DAILY RF: 0 isosorbide dinitrate 30 mg Tablet 15 mg PO Q12H RF: 0 bismuth subsalicylate [Pepto-Bismol] 262 mg/15 mL Suspension See Rx Instructions .ROUTE .COMPLEX RF: 0 metoprolol tartrate 50 mg Tablet 50 mg PO BID RF: 0 ibuprofen 200 mg Tablet 200 mg PO PRN PRN (Reason: Pain) RF: 0 budesonide 0.5 mg/2 mL Suspension For Nebulization 0.5 mg INHALATION BID RF: 0 ipratropium bromide 0.02 % Solution See Rx Instructions .ROUTE .COMPLEX RF: 0 naproxen 500 mg Tablet 500 mg PO PRN RF: 0 guaifenesin [Mucinex] 600 mg Tablet Extended Release 12hr 1,200 mg PO BID RF: 0 Discharge Orders: Discharge Order (Routine); Ordered 03/30/19 Ordered By: Alex Vieira Referrals: Martin Jovel MD [Primary Care Provider] - Discharge Diet: Regular Discharge Activity: Increase activity as tolerated Patient Instructions: Back Pain (ED) Activity Restrictions/Additional Instructions: Follow-up with your PCP for reevaluation in 7 days. Take [id number] ibuprofen or naproxen to help with back and neck pain and inflammation. Continue taking her previously prescribed muscle relaxer diclofenac as prescribed. Apply ice or cold pack to back to help with pain. Drink plenty of fluids and stay hydrated. Discharge Date/Time: 03/30/19 04:08 Coding Level of Care Code ED Process Stripper for Dc Serrato Exam Comprehensive
[2019-03-30] MEDS: ketorolac 30 mg/mL INJ IM (03:12)
[2019-03-30] MEDS: orphenadrine 30 mg/mL Inj 2 mL 60 MG IM (03:12)
[2019-03-30 04:07] VITALS: BP 143/98; PULSE 75; RESP 14; O2SAT 98
--- NOTE | 2019-03-30 05:41 | ECG_ITS ---
Measurements Intervals [place] Rate: 72 P: 54 SD: 133 QRS: 52 QRSD: 113 T: 52 QT: 431 QTc: 473 SINUS RHYTHM POSSIBLE LATERAL MYOCARDIAL INFARCTION , PROBABLY OLD [30 ms Q WAVE IN I/a I/aVL/V5/V6] Compared to ECG 02/18/2019 17:03:13 Myocardial infarct finding now present Electronically Signed On 03-30-2019 14:11:15 WHEEL WORKER by Amanda Bourgeois M.D. [email or web address]
== END 2019-03-30 04:08 | disposition home or self-care (01) ==
PROVIDERS: Family Medicine; Emergency Provider Physician Assistant; Family Provider Family Medicine; PCP Family Medicine
DX: S16.1XXA Strain of muscle, fascia and tendon at neck level, initial encounter (principal); M54.5 Low back pain; E03.9 Hypothyroidism, unspecified; G40.909 Epilepsy, unspecified, not intractable, without status epilepticus; Z87.891 Personal history of nicotine dependence; W19.XXXA Unspecified fall, initial encounter
CPT/HCPCS: 71045; 80053; 84484; 85025; 93005; 96372; 99281; 99283; J1885; J2360

== ENCOUNTER 2019-04-03 20:05 | Emergency (ER) | payer MEDICARE, MEDICAID, SELFPAY ==
[2019-04-03 20:13] VITALS: PULSE 74; RESP 18; TEMP 36.4; O2SAT 100
[2019-04-03 21:29] LABS: Basophils # 0.1 10^3/uL (0.0-0.1); Basophils % 0.8 %; Eosinophils # 0.3 10^3/uL (0.0-0.8); Eosinophils % 3.5 %; Hematocrit 35.4 % (37.0-47.0); Hemoglobin 10.9 g/dL (11.5-15.3); Lymphocytes # 2.2 10^3/uL (0.8-4.8); Lymphocytes % 24.9 %; Mean Corpuscular HGB Conc 30.8 g/dL (30.0-36.0); Mean Corpuscular Hemoglobin 30.4 pg (28.0-34.0); Mean Corpuscular Volume 98.6 fL (81-99); Mean Platelet Volume 9.5 fL (7.4-10.4); Monocytes # 0.6 10^3/uL (0.2-0.9); Monocytes % 7.1 %; Neutrophils # 5.7 10^3/uL (1.8-7.7); Neutrophils % 63.1 %; Nucleated Red Blood Cells % 0 %; Platelet Count 328 10^3/cmm (130-400); Red Blood Count 3.59 10^6/uL (4.1-5.3); Red Cell Distribution Width 13.6 % (12.1-15.1)
[2019-04-03 21:48] LABS: Alanine Aminotransferase 11 U/L (0-33); Albumin Level 3.8 g/dL (3.5-5.2); Alkaline Phosphatase 104 IU/L (35-105); Anion Gap 15.1 (5-19); Aspartate Amino Transferase 24 U/L (0-32); Blood Urea Nitrogen 19 mg/dL (6-20); Calcium 9.7 mg/dL (8.5-10.5); Carbon Dioxide 27 mmol/L (22-29); Chloride 98 mmol/L (98-107); Globulin 3.1 g/dL (1.3-4.6); Glomerular Filtration Rate 51.8 mL/min (90-130); Glucose 133 mg/dL (65-115); Potassium 4.1 mmol/L (3.5-5.1); Sodium 136 mmol/L (136-145); Total Bilirubin 0.7 mg/dL (0.15-1.2); Total Protein 6.9 g/dL (6.6-8.7)
--- NOTE | 2019-04-03 21:51 | PC.NURSE ---
Patient started complaining of chest pain. EKG obtained and shown to Dr. Chavez.
== END 2019-04-03 22:03 | disposition left against medical advice (07) ==
LOC: ER 21:05
PROVIDERS: Emergency Medicine; Emergency Provider Emergency Medicine; Family Provider Family Medicine; PCP Family Medicine
DX: R10.9 Unspecified abdominal pain (principal); R11.2 Nausea with vomiting, unspecified; R19.7 Diarrhea, unspecified; Z53.21 Procedure and treatment not carried out due to patient leaving prior to being seen by health care provider
CPT/HCPCS: 36415; 80053; 85025; 99281; 99282

== ENCOUNTER 2019-04-09 16:02 | Emergency (ER) | payer MEDICARE, MEDICAID, SELFPAY ==
[2019-04-09 16:03] VITALS: PULSE 101; RESP 30; TEMP 36.6; O2SAT 100; BMI 38.5
--- NOTE | 2019-04-09 16:06 | ED_ITS ---
Entered by Wojciech Gann LPN, acting as scribe for Buck Macdonald DO Documented by User: Buck Macdonald DO 04/09/19 18:53 HPI - Nausea/Vomiting/Diarrhea General: Chief complaint: Shortness of Breath/Dyspnea Stated complaint: N/V, SOB Time Seen by Provider: 04/09/19 16:06 Source: patient Mode of arrival: EMS Limitations: no limitations History of Present Illness: HPI Narrative: 53 yo female presents with c/o middle and lower back pain that started several days ago. Also reports cough and sob, states she can't remember when this started. She has home O2 to use as needed, has been wearing it continuously for several days. She also uses a home neb. She denies fever, but states she has had chills. Also reporting n/v/d, after eating [employer] about 8 days ago. Associated nausea: Yes Associated symtoms: Reports nausea Review of Systems General: Reports: 10 or more systems reviewed and unremarkable except in HPI and below Resp: Reports: shortness of breath and productive cough GI: Reports: nausea, vomiting and diarrhea Musc: Reports: back pain PFSH ED PFSH: Social History Smoking and tobacco status: former smoker Quit status (tobacco): has quit using tobacco Year quit tobacco: 2019 - 1-5 ciggs/day Alcohol intake: never Lives independently: Yes Household members: none Housing: Apartment Current occupational status: disabled History of recent travel: No Current gender identity: Female Physical Exam Const: COMMON NORMALS: no apparent distress, average body habitus, oriented x3, no limitations, healthy appearing, alert and well nourished HENMT: COMMON NORMALS: normocephalic, head/scalp atraumatic, hearing grossly normal bilaterally, external ears normal, EAC's normal, TM's normal bilaterally, external nose normal, moist oral mucous membranes and oropharynx normal HEAD & SCALP: normocephalic and atraumatic NOSE: external nose normal EXTERNAL EAR: Yes external ears normal EXTERNAL AUDITORY CANAL: EAC's normal TYMPANIC MEMBRANE: TM's normal bilaterally THROAT: postnasal drainage Eye: COMMON NORMALS: PERRL, EOMs intact bilaterally, conjunctivae normal, no scleral icterus, no papilledema, normal visual odonnell by confrontation and fundi normal bilaterally CONJUNCTIVA: Yes conjunctivae normal PUPIL: Yes PERRL DIRECT OPHTHALMOSCOPY: Yes no papilledema and Yes fundi normal bilaterally Neck/C-Spine: COMMON NORMALS: full ROM, no lymphadenopathy, supple, no meningeal signs, no JVD, thyroid normal and no carotid bruits THYROID: thyroid normal Chest: COMMONS NORMALS: inspection of chest normal and palpation of chest normal Resp: COMMON NORMALS: normal respiratory effort, no retractions, no use of accessory muscles, clear to auscultation bilaterally and percussion normal A USCULTATION: clear to auscultation bilaterally PERCUSSION: percussion normal Cardio: COMMON NORMALS: no JVD, regular rate, regular rhythm, S1 normal heart sound, S2 normal heart sound, no gallops, no clicks, no murmurs, no rub and peripheral pulses 2+ throughout RATE: regular rate RHYTHM: regular rhythm HEART SOUNDS: S1 normal and S2 normal PERIPHERAL PULSES: pulses 2+ throughout GI: COMMON NORMALS: normal to inspection, nondistended, normoactive bowel sounds, soft to palpation, non-tender, no hepatosplenomegaly, no masses and no bruits PALPATION: Yes soft and Yes no hepatosplenomegaly : COMMON NORMALS: Yes no CVA tenderness and Yes external appearance normal BLADDER/KIDNEY EXAM: Yes no CVA tenderness Back/Pelvis: COMMON NORMALS: no CVA tenderness Extremity: COMMON NORMALS: normal to inspection, full ROM, normal capillary refill, no joint enlargement, no clubbing, cyanosis or edema, no calf tenderness and no pedal edema Neuro: COMMON NORMALS: oriented x3 SENSORIUM/ORIENTATION: Yes alert MENINGEAL SIGNS: Yes no meningeal signs Skin: COMMON NORMALS: no rashes or lesions noted, no wounds, skin turgor normal, no jaundice, no petechiae and no mottling GENERAL SKIN EXAM: no rashes or lesions noted and turgor normal Course Vital Signs: Vital signs: Vital Signs Temperature 97.8 F 04/09/19 16:03 Pulse Rate 96 04/09/19 20:14 Respiratory Rate 18 04/09/19 20:14 Blood Pressure 147/84 04/09/19 20:14 Pulse Oximetry 98 04/09/19 20:14 MDM - Nausea/Vomiting/Diarrhea Lab Data: Attestation: I reviewed the patient's lab results. Labs: Lab Results 04/09/19 04/09/19 04/09/19 Range/Units 16:40 16:40 16:40 WBC 6.3 (4.0-10.0) 10^3/ uL RBC 3.93 L (4.1-5.3) 10^6/u L Hgb 11.4 L (11.5-15.3) g/dL Hct 36.2 L (37.0-47.0) % MCV 92.1 (81-99) fL MCH 29.0 (28.0-34.0) pg MCHC 31.5 (30.0-36.0) g/dL RDW 13.6 (12.1-15.1) % Plt Count 312 (130-400) 10^3/c mm MPV 9.4 (7.4-10.4) fL Neut % (Auto) 50.6 % Lymph % (Auto) 38.1 % Amelia % (Auto) 10.0 % Eos % (Auto) 0.6 % Baso % (Auto) 0.5 % Neut # (Auto) 3.2 (1.8-7.7) 10^3/u L Lymph # (Auto) 2.4 (0.8-4.8) 10^3/u L Amelia # (Auto) 0.6 (0.2-0.9) 10^3/u L Eos # (Auto) 0.0 (0.0-0.8) 10^3/u L Baso # (Auto) 0.0 (0.0-0.1) 10^3/u L Nucleated RBC % (a uto) 0 % Nucleated RBCs # 0.0 /100WBC Sodium 135 L (136-145) mmol/L Potassium 3.6 (3.5-5.1) mmol/L Chloride 92 L (98-107) mmol/L Carbon Dioxide 25 (22-29) mmol/L Anion Gap 21.6 H (5-19) BUN 16 (6-20) mg/dL Creatinine 1.2 H (0.5-0.9) mg/dL GFR Calculation 46.8 L (90-130) mL/min Glucose 114 (65-115) mg/dL Lactate 2.4 H (0.5-2.2) mmol/L Calcium 9.6 (8.5-10.5) mg/dL Total Bilirubin 0.7 (0.15-1.2) mg/dL AST 20 (0-32) U/L ALT 10 (0-33) U/L Alkaline Phosphata se 99 (35-105) IU/L NT-Pro-B Natriuret Pep 38 (0-125) pg/mL Total Protein 7.7 (6.6-8.7) g/dL Albumin 4.1 (3.5-5.2) g/dL Globulin 3.6 (1.3-4.6) g/dL Lipase 25 (13-60) U/L TSH 7.94 H (0.27-4.20) uIU/ mL Urine Color (Yellow) Urine Appearance (CLEAR) Urine pH (5-7) Ur Specific Gravit y (1.005-1.030) Urine Protein (Negative) Urine Glucose (UA) (Normal) Urine Ketones (Negative) Urine Blood (Negative) Urine Nitrate (Negative) Urine Bilirubin (NEGATIVE) Urine Urobilinogen (Negative) mg/dL Ur Leukocyte Jacqui ase (Negative) Urine RBC (0-2) /hpf Urine WBC (0-5) /hpf Ur Squamous Epith Cells (0-5) Amorphous Sediment Urine Bacteria (NONE) Influenza Type A A g (Negative) POC Influenza B Ag (Negative) 04/09/19 04/09/19 Range/Units 17:22 17:53 WBC (4.0-10.0) 10^3/ uL RBC (4.1-5.3) 10^6/u L Hgb (11.5-15.3) g/dL Hct (37.0-47.0) % MCV (81-99) fL MCH (28.0-34.0) pg MCHC (30.0-36.0) g/dL RDW (12.1-15.1) % Plt Count (130-400) 10^3/c mm MPV (7.4-10.4) fL Neut % (Auto) % Lymph % (Auto) % Amelia % (Auto) % Eos % (Auto) % Baso % (Auto) % Neut # (Auto) (1.8-7.7) 10^3/u L Lymph # (Auto) (0.8-4.8) 10^3/u L Amelia # (Auto) (0.2-0.9) 10^3/u L Eos # (Auto) (0.0-0.8) 10^3/u L Baso # (Auto) (0.0-0.1) 10^3/u L Nucleated RBC % (a uto) % Nucleated RBCs # /100WBC Sodium (136-145) mmol/L Potassium (3.5-5.1) mmol/L Chloride (98-107) mmol/L Carbon Dioxide (22-29) mmol/L Anion Gap (5-19) BUN (6-20) mg/dL Creatinine (0.5-0.9) mg/dL GFR Calculation (90-130) mL/min Glucose (65-115) mg/dL Lactate (0.5-2.2) mmol/L Calcium (8.5-10.5) mg/dL Total Bilirubin (0.15-1.2) mg/dL AST (0-32) U/L ALT (0-33) U/L Alkaline Phosphata se (35-105) IU/L NT-Pro-B Natriuret Pep (0-125) pg/mL Total Protein (6.6-8.7) g/dL Albumin (3.5-5.2) g/dL Globulin (1.3-4.6) g/dL Lipase (13-60) U/L TSH (0.27-4.20) uIU/ mL Urine Color Yellow (Yellow) Urine Appearance Cloudy (CLEAR) Urine pH 5 (5-7) Ur Specific Gravit y 1.015 (1.005-1.030) Urine Protein Neg (Negative) Urine Glucose (UA) Norm (Normal) Urine Ketones Negative (Negative) Urine Blood 2+ H (Negative) Urine Nitrate Negative (Negative) Urine Bilirubin Neg (NEGATIVE) Urine Urobilinogen Norm (Negative) mg/dL Ur Leukocyte Jacqui ase Negative (Negative) Urine RBC 0-4 H (0-2) /hpf Urine WBC None (0-5) /hpf Ur Squamous Epith Cells 5-10 H (0-5) Amorphous Sediment 1+ Urine Bacteria 3+ H (NONE) Influenza Type A A g Positive H (Negative) POC Influenza B Ag Positive H (Negative) Imaging Data^: CXR: Radiologist's impression: IMPRESSION: Negative chest for active pathology. Dictated By:Jasvir Beyer DO Discharge Plan Discharge Patient Disposition: Home, Self-Care Clinical Impression: Influenza Condition: Stable Prescriptions: New Tamiflu 75 mg capsule 75 mg PO BID 5 Days Qty: 10 RF: 0 No Action montelukast [Singulair] 10 mg tablet 10 mg PO DAILY RF: 0 levothyroxine 88 mcg capsule 88 mcg PO DAILY RF: 0 levetiracetam 250 mg tablet 250 mg PO BID RF: 0 aspirin [Adult Aspirin Regimen] 81 mg tablet,delayed release (DR/EC) 81 mg PO DAILY RF: 0 bumetanide 2 mg tablet 2 mg PO DAILY RF: 0 pantoprazole [Protonix] 40 mg tablet,delayed release (DR/EC) 40 mg PO DAILY RF: 0 atorvastatin 20 mg tablet 20 mg PO BEDTIME RF: 0 albuterol sulfate [ProAir HFA] 90 mcg/actuation HFA aerosol inhaler 2 puff INHALATION Q4H PRN (Reason: Shortness Of Breath) RF: 0 cetirizine 10 mg capsule 10 mg PO QDAY RF: 0 spironolactone 25 mg Tablet 25 mg PO DAILY RF: 0 diclofenac sodium 1 % Gel 2 - 4 g TOPICAL QID PRN (Reason: UNKNOWN) RF: 0 magnesium oxide 400 mg magnesium Tablet 400 mg PO DAILY RF: 0 isosorbide dinitrate 30 mg Tablet 15 mg PO Q12H RF: 0 bismuth subsalicylate [Pepto-Bismol] 262 mg/15 mL Suspension See Rx Instructions .ROUTE .COMPLEX RF: 0 metoprolol tartrate 50 mg Tablet 50 mg PO BID RF: 0 ibuprofen 200 mg Tablet 200 mg PO PRN PRN (Reason: Pain) RF: 0 budesonide 0.5 mg/2 mL Suspension For Nebulization 0.5 mg INHALATION BID RF: 0 ipratropium bromide 0.02 % Solution See Rx Instructions .ROUTE .COMPLEX RF: 0 naproxen 500 mg Tablet 500 mg PO PRN RF: 0 guaifenesin [Mucinex] 600 mg Tablet Extended Release 12hr 1,200 mg PO BID RF: 0 Discharge Orders: Discharge Order (Routine); Ordered 04/09/19 Ordered By: Tenisha Casey Referrals: Martin Jovel MD [Primary Care Provider] - Discharge Diet: Advance as tolerated Discharge Activity: Resume usual activity Patient Instructions: Influenza (ED) Discharge Date/Time: 04/09/19 20:14 Coding Level of Care Code ED Corporate Receptionist for Chg Fwd Exam Comprehensive Documented by User: Tenisha Casey MD 04/09/19 20:23 HPI - Nausea/Vomiting/Diarrhea General: Chief complaint: Shortness of Breath/Dyspnea Stated complaint: N/V, SOB Time Seen by Provider: 04/09/19 16:06 PFSH ED PFSH: Social History Smoking and tobacco status: former smoker Quit status (tobacco): has quit using tobacco Year quit tobacco: 2018-5 ciggs/day Alcohol intake: never Lives independently: Yes Household members: none Housing: Apartment Current occupational status: disabled History of recent travel: No Current gender identity: Female Course Vital Signs: Vital signs: Vital Signs Temperature 97.8 F 04/09/19 16:03 Pulse Rate 96 04/09/19 20:14 Respiratory Rate 18 04/09/19 20:14 Blood Pressure 147/84 04/09/19 20:14 Pulse Oximetry 98 04/09/19 20:14 MDM - Nausea/Vomiting/Diarrhea MDM Narrative: Medical decision making narrative: I took patient over from Dr. Goyal. Patient does have influenza. She is well-appearing here. She is not requiring any increased oxygen and is stable for discharge. We will place her on Tamiflu. Lab Data: Labs: Lab Results 04/09/19 04/09/19 04/09/19 Range/Units 16:40 16:40 16:40 WBC 6.3 (4.0-10.0) 10^3/ uL RBC 3.93 L (4.1-5.3) 10^6/u L Hgb 11.4 L (11.5-15.3) g/dL Hct 36.2 L (37.0-47.0) % MCV 92.1 (81-99) fL MCH 29.0 (28.0-34.0) pg MCHC 31.5 (30.0-36.0) g/dL RDW 13.6 (12.1-15.1) % Plt Count 312 (130-400) 10^3/c mm MPV 9.4 (7.4-10.4) fL Neut % (Auto) 50.6 % Lymph % (Auto) 38.1 % Amelia % (Auto) 10.0 % Eos % (Auto) 0.6 % Baso % (Auto) 0.5 % Neut # (Auto) 3.2 (1.8-7.7) 10^3/u L Lymph # (Auto) 2.4 (0.8-4.8) 10^3/u L Amelia # (Auto) 0.6 (0.2-0.9) 10^3/u L Eos # (Auto) 0.0 (0.0-0.8) 10^3/u L Baso # (Auto) 0.0 (0.0-0.1) 10^3/u L Nucleated RBC % (a uto) 0 % Nucleated RBCs # 0.0 /100WBC Sodium 135 L (136-145) mmol/L Potassium 3.6 (3.5-5.1) mmol/L Chloride 92 L (98-107) mmol/L Carbon Dioxide 25 (22-29) mmol/L Anion Gap 21.6 H (5-19) BUN 16 (6-20) mg/dL Creatinine 1.2 H (0.5-0.9) mg/dL GFR Calculation 46.8 L (90-130) mL/min Glucose 114 (65-115) mg/dL Lactate 2.4 H (0.5-2.2) mmol/L Calcium 9.6 (8.5-10.5) mg/dL Total Bilirubin 0.7 (0.15-1.2) mg/dL AST 20 (0-32) U/L ALT 10 (0-33) U/L Alkaline Phosphata se 99 (35-105) IU/L NT-Pro-B Natriuret Pep 38 (0-125) pg/mL Total Protein 7.7 (6.6-8.7) g/dL Albumin 4.1 (3.5-5.2) g/dL Globulin 3.6 (1.3-4.6) g/dL Lipase 25 (13-60) U/L TSH 7.94 H (0.27-4.20) uIU/ mL Urine Color (Yellow) Urine Appearance (CLEAR) Urine pH (5-7) Ur Specific Gravit y (1.005-1.030) Urine Protein (Negative) Urine Glucose (UA) (Normal) Urine Ketones (Negative) Urine Blood (Negative) Urine Nitrate (Negative) Urine Bilirubin (NEGATIVE) Urine Urobilinogen (Negative) mg/dL Ur Leukocyte Jacqui ase (Negative) Urine RBC (0-2) /hpf Urine WBC (0-5) /hpf Ur Squamous Epith Cells (0-5) Amorphous Sediment Urine Bacteria (NONE) Influenza Type A A g (Negative) POC Influenza B Ag (Negative) 04/09/19 04/09/19 Range/Units 17:22 17:53 WBC (4.0-10.0) 10^3/ uL RBC (4.1-5.3) 10^6/u L Hgb (11.5-15.3) g/dL Hct (37.0-47.0) % MCV (81-99) fL MCH (28.0-34.0) pg MCHC (30.0-36.0) g/dL RDW (12.1-15.1) % Plt Count (130-400) 10^3/c mm MPV (7.4-10.4) fL Neut % (Auto) % Lymph % (Auto) % Amelia % (Auto) % Eos % (Auto) % Baso % (Auto) % Neut # (Auto) (1.8-7.7) 10^3/u L Lymph # (Auto) (0.8-4.8) 10^3/u L Amelia # (Auto) (0.2-0.9) 10^3/u L Eos # (Auto) (0.0-0.8) 10^3/u L Baso # (Auto) (0.0-0.1) 10^3/u L Nucleated RBC % (a uto) % Nucleated RBCs # /100WBC Sodium (136-145) mmol/L Potassium (3.5-5.1) mmol/L Chloride (98-107) mmol/L Carbon Dioxide (22-29) mmol/L Anion Gap (5-19) BUN (6-20) mg/dL Creatinine (0.5-0.9) mg/dL GFR Calculation (90-130) mL/min Glucose (65-115) mg/dL Lactate (0.5-2.2) mmol/L Calcium (8.5-10.5) mg/dL Total Bilirubin (0.15-1.2) mg/dL AST (0-32) U/L ALT (0-33) U/L Alkaline Phosphata se (35-105) IU/L NT-Pro-B Natriuret Pep (0-125) pg/mL Total Protein (6.6-8.7) g/dL Albumin (3.5-5.2) g/dL Globulin (1.3-4.6) g/dL Lipase (13-60) U/L TSH (0.27-4.20) uIU/ mL Urine Color Yellow (Yellow) Urine Appearance Cloudy (CLEAR) Urine pH 5 (5-7) Ur Specific Gravit y 1.015 (1.005-1.030) Urine Protein Neg (Negative) Urine Glucose (UA) Norm (Normal) Urine Ketones Negative (Negative) Urine Blood 2+ H (Negative) Urine Nitrate Negative (Negative) Urine Bilirubin Neg (NEGATIVE) Urine Urobilinogen Norm (Negative) mg/dL Ur Leukocyte Jacqui ase Negative (Negative) Urine RBC 0-4 H (0-2) /hpf Urine WBC None (0-5) /hpf Ur Squamous Epith Cells 5-10 H (0-5) Amorphous Sediment 1+ Urine Bacteria 3+ H (NONE) Influenza Type A A g Positive H (Negative) POC Influenza B Ag Positive H (Negative) Imaging Data^: CXR: Radiologist's impression: Patient: Crystal Pierre Unit #: [id number] : 1965 Age/Sex: 53 / F ADM Date: 04/09/19 Loc: ER Room/Bed: Attending Dr: Ordering Provider/Ordering MD: Buck Macdonald DO Date of Service: 04/09/19 Procedure(s): XR chest 1V portable [id number] Accession Number(s): [id number] Report Number: [id number] WS: [id number] XR chest 1V portable [id number] REASON FOR EXAM: dyspnea FINDINGS: The lung odonnell remain normally aerated. No pneumonia, pleural effusion, pulmonary edema, no mass effect. There was no pneumothorax seen. The hilum and apices are normal. The heart is not enlarged. XR/XR chest 1V portable [id number] IMPRESSION: Negative chest for active pathology. Discharge Plan Discharge Patient Disposition: Home, Self-Care Clinical Impression: Influenza Condition: Stable Prescriptions: New Tamiflu 75 mg capsule 75 mg PO BID 5 Days Qty: 10 RF: 0 No Action montelukast [Singulair] 10 mg tablet 10 mg PO DAILY RF: 0 levothyroxine 88 mcg capsule 88 mcg PO DAILY RF: 0 levetiracetam 250 mg tablet 250 mg PO BID RF: 0 aspirin [Adult Aspirin Regimen] 81 mg tablet,delayed release (DR/EC) 81 mg PO DAILY RF: 0 bumetanide 2 mg tablet 2 mg PO DAILY RF: 0 pantoprazole [Protonix] 40 mg tablet,delayed release (DR/EC) 40 mg PO DAILY RF: 0 atorvastatin 20 mg tablet 20 mg PO BEDTIME RF: 0 albuterol sulfate [ProAir HFA] 90 mcg/actuation HFA aerosol inhaler 2 puff INHALATION Q4H PRN (Reason: Shortness Of Breath) RF: 0 cetirizine 10 mg capsule 10 mg PO QDAY RF: 0 spironolactone 25 mg Tablet 25 mg PO DAILY RF: 0 diclofenac sodium 1 % Gel 2 - 4 g TOPICAL QID PRN (Reason: UNKNOWN) RF: 0 magnesium oxide 400 mg magnesium Tablet 400 mg PO DAILY RF: 0 isosorbide dinitrate 30 mg Tablet 15 mg PO Q12H RF: 0 bismuth subsalicylate [Pepto-Bismol] 262 mg/15 mL Suspension See Rx Instructions .ROUTE .COMPLEX RF: 0 metoprolol tartrate 50 mg Tablet 50 mg PO BID RF: 0 ibuprofen 200 mg Tablet 200 mg PO PRN PRN (Reason: Pain) RF: 0 budesonide 0.5 mg/2 mL Suspension For Nebulization 0.5 mg INHALATION BID RF: 0 ipratropium bromide 0.02 % Solution See Rx Instructions .ROUTE .COMPLEX RF: 0 naproxen 500 mg Tablet 500 mg PO PRN RF: 0 guaifenesin [Mucinex] 600 mg Tablet Extended Release 12hr 1,200 mg PO BID RF: 0 Discharge Orders: Discharge Order (Routine); Ordered 04/09/19 Ordered By: Tenisha Casey Referrals: Martin Jovel MD [Primary Care Provider] - Discharge Diet: Advance as tolerated Discharge Activity: Resume usual activity Patient Instructions: Influenza (ED) Discharge Date/Time: 04/09/19 20:14 Coding Level of Care Code ED Corporate Receptionist for [employer] Fwd Exam Comprehensive
--- NOTE | 2019-04-09 16:08 | XR_ITS ---
WS: [id number] XR chest 1V portable [id number] REASON FOR EXAM: dyspnea FINDINGS: The lung odonnell remain normally aerated. No pneumonia, pleural effusion, pulmonary edema, n o mass effect. There was no pneumothorax seen. The hilum and apices are normal. The heart is not enlarged. XR/XR chest 1V portable [id number] IMPRESSION: Negative chest for active pathology.
[2019-04-09 16:27] VITALS: BP 117/77; PULSE 102; O2SAT 99
[2019-04-09 16:50] LABS: Basophils % 0.5 %; Eosinophils % 0.6 %; Hematocrit 36.2 % (37.0-47.0); Hemoglobin 11.4 g/dL (11.5-15.3); Lymphocytes # 2.4 10^3/uL (0.8-4.8); Lymphocytes % 38.1 %; Mean Corpuscular HGB Conc 31.5 g/dL (30.0-36.0); Mean Corpuscular Volume 92.1 fL (81-99); Mean Platelet Volume 9.4 fL (7.4-10.4); Monocytes # 0.6 10^3/uL (0.2-0.9); Neutrophils # 3.2 10^3/uL (1.8-7.7); Neutrophils % 50.6 %; Nucleated Red Blood Cells % 0 %; Platelet Count 312 10^3/cmm (130-400); Red Blood Count 3.93 10^6/uL (4.1-5.3); Red Cell Distribution Width 13.6 % (12.1-15.1); White Blood Count 6.3 10^3/uL (4.0-10.0)
[2019-04-09] MEDS: sodium chloride 0.9% 1,000 ML 999 ML IV (16:50)
[2019-04-09] MEDS: HYDROcodone-acetaminophen 5-325 mg Tablet 1 TAB PO (16:50)
[2019-04-09 17:08] LABS: Lactate (Lactic Acid level) 2.4 mmol/L (0.5-2.2)
[2019-04-09 17:15] LABS: Alanine Aminotransferase 10 U/L (0-33); Albumin Level 4.1 g/dL (3.5-5.2); Alkaline Phosphatase 99 IU/L (35-105); Anion Gap 21.6 (5-19); Aspartate Amino Transferase 20 U/L (0-32); Blood Urea Nitrogen 16 mg/dL (6-20); Calcium 9.6 mg/dL (8.5-10.5); Carbon Dioxide 25 mmol/L (22-29); Chloride 92 mmol/L (98-107); Globulin 3.6 g/dL (1.3-4.6); Glomerular Filtration Rate 46.8 mL/min (90-130); Glucose 114 mg/dL (65-115); Lipase 25 U/L (13-60); NT Pro B Type Natriuretic Pept 38 pg/mL (0-125); Potassium 3.6 mmol/L (3.5-5.1); Sodium 135 mmol/L (136-145); Thyroid Stimulating Hormone 7.94 uIU/mL (0.27-4.20); Total Bilirubin 0.7 mg/dL (0.15-1.2); Total Protein 7.7 g/dL (6.6-8.7)
[2019-04-09 17:43] LABS: Add Urine Microscopic? YES; Bilirubin Urine Neg (NEGATIVE); Blood Urine 2+ (Negative); Glucose Urine UA Norm (Normal); Ketones Urine Negative (Negative); Leukocyte Esterase Urine Negative (Negative); Nitrate Urine Negative (Negative); Protein Urine Neg (Negative); Specific Gravity, Urine 1.015 (1.005-1.030); Urine Appearance Cloudy (CLEAR); Urine Color Yellow (Yellow); Urobilinogen Urine Norm (Negative); pH Urine 5 (5-7)
[2019-04-09 17:53] LABS: RBC Urine 0-4 /hpf (0-2)
[2019-04-09 17:54] LABS: Add Urine Culture? Yes; Amorphous Sediment Urine 1+; Bacteria Urine 3+
[2019-04-09] MEDS: ipratropium-albuterol 3 mL Neb INHALATION (18:26)
[2019-04-09 18:27] VITALS: PULSE 103; RESP 20; O2SAT 100
[2019-04-09 18:28] VITALS: PULSE 99
[2019-04-09 18:51] LABS: Influenza A by IFA Positive (Negative)
[2019-04-09 18:52] LABS: Influenza B by IFA Positive (Negative)
[2019-04-09 19:33] VITALS: BP 129/74; PULSE 100; RESP 22; O2SAT 100
[2019-04-09 20:14] VITALS: BP 147/84; PULSE 96; RESP 18; O2SAT 98
== END 2019-04-09 20:14 | disposition home or self-care (01) ==
PROVIDERS: Family Medicine; Emergency Provider Emergency Medicine; Family Provider Family Medicine; PCP Family Medicine
DX: J11.1 Influenza due to unidentified influenza virus with other respiratory manifestations (principal); Z87.891 Personal history of nicotine dependence; Z99.81 Dependence on supplemental oxygen
CPT/HCPCS: 36415; 71045; 80053; 81001; 83605; 83690; 83880; 84443; 85025; 87040; 87086; 87804; 94640; 96360; 96361; 99282; 99283; J7030

== ENCOUNTER 2019-04-23 14:18 | Emergency (ER) | payer MEDICARE, MEDICAID, SELFPAY ==
[2019-04-23] VITALS (8 sets, daily range): BP systolic 131–157; BP diastolic 65–80; PULSE 73–81; RESP 18–22; TEMP 36.8–36.9; O2SAT 99–100; BMI 39.1
--- NOTE | 2019-04-23 14:44 | ED_ITS ---
Entered by Nicole Bryant, acting as scribe for Wendie Romero MD, [facility] HPI - SOB/Dyspnea General: Chief Complaint: Shortness of Breath/Dyspnea Stated Complaint: INCREASED DYSPNEA Time Seen by Provider: 04/23/19 14:43 Source: patient Mode of arrival: EMS Limitations: no limitations History of Present Illness: HPI Narrative: 53 yo Female presents to ED with complaint of increased shortness of breath, chest congestion, and pain in the back of her neck. Pt states that her symptoms started getting worse on Monday. Pt states that she has had a dry cough. No recent travel and no sick contacts. MD elicited complaint: shortness of breath and cough Pertinent past history: COPD Onset (ago): day(s) Context: recent illness Timing: progressively worsening Exacerbating factors: nothing Relieving factors: nothing Known history of: COPD Associated symptoms: Reports chest congestion and cough; Deny abdominal pain, chest pain, fever(s), nausea, polydipsia, polyuria or vomiting Treatment prior to arrival: none Related Data: Home oxygen amount: as needed at night Review of Systems General: Reports: 10 or more systems reviewed and unremarkable except in HPI and below Const: Denies: fever Eyes: Denies: change in vision or blurry vision ENMT: Denies: throat pain, enlarged tonsils, painful swallowing, hoarseness, mouth pain or swelling of lips/tongue Card: Denies: chest pain Resp: Reports: shortness of breath, non-productive cough and chest congestion GI: Denies: abdominal pain, nausea or vomiting : Denies: flank pain, difficulty urinating, painful urination, urinary frequency, urinary urgency or urinary hesitancy Musc: Denies: neck pain, back pain or extremity swelling Skin/Breast: Denies: rash, itching or redness Neuro: Denies: headache, numbness in extremities or weakness in extremities Endo: Denies: excessive urination, excessive thirst or tired all the time [facility] ED PFSH: Medical History (Updated 04/23/19 @ 18:11 by Wendie Romero MD, [facility]) COPD (chronic obstructive pulmonary disease) GERD (gastroesophageal reflux disease) Hypothyroidism (acquired) Seizure disorder Surgical History H/O esophagogastroduodenoscopy 03/19/2019: Normal H/O thyroidectomy History of carpal tunnel surgery History of colonoscopy 03/19/2019: Normal repeat in 10 years Hx of section Social History Smoking and tobacco status: former smoker Quit status (tobacco): has quit using tobacco Year quit tobacco: 2019 - 1-5 ciggs/day Alcohol intake: never Lives independently: Yes Household members: none Housing: Apartment Current occupational status: disabled History of recent travel: No Current gender identity: Female Physical Exam Const: COMMON NORMALS: no apparent distress, average body habitus, oriented x3, no limitations, healthy appearing, alert and well nourished HENMT: COMMON NORMALS: normocephalic, head/scalp atraumatic and moist oral mucous membranes HEAD & SCALP: normocephalic and atraumatic Eye: COMMON NORMALS: PERRL, EOMs intact bilaterally, conjunctivae normal and no scleral icterus CONJUNCTIVA: Yes conjunctivae normal PUPIL: Yes PERRL Neck/C-Spine: COMMON NORMALS: full ROM, supple, no meningeal signs, no JVD and no carotid bruits Chest: COMMONS NORMALS: inspection of chest normal and palpation of chest normal Resp: COMMON NORMALS: normal respiratory effort, no retractions, no use of accessory muscles and percussion normal; negative for clear to auscultation bilaterally AUSCULTATION: not clear to auscultation bilaterally, crackles Laterality: bilateral and diminished lung sounds bilateral PERCUSSION: percussion normal Cardio: COMMON NORMALS: no JVD, regular rate, regular rhythm, S1 normal heart sound, S2 normal heart sound, no gallops, no clicks, no murmurs, no rub and peripheral pulses 2+ throughout RATE: regular rate RHYTHM: regular rhythm HEART SOUNDS: S1 normal and S2 normal PERIPHERAL PULSES: pulses 2+ throughout GI: COMMON NORMALS: normal to inspection, nondistended, normoactive bowel sounds, soft to palpation, non-tender, no hepatosplenomegaly, no masses and no bruits PALPATION: Yes soft and Yes no hepatosplenomegaly : COMMON NORMALS: Yes no CVA tenderness BLADDER/KIDNEY EXAM: Yes no CVA tenderness Back/Pelvis: COMMON NORMALS: no CVA tenderness Extremity: COMMON NORMALS: normal to inspection, full ROM, normal capillary refill, no calf tenderness and no pedal edema GENERAL: Yes normal exam except as noted RIGHT LOWER EXTREMITY: Yes lower leg Right lower leg: Yes inspection (lymphadema) LEFT LOWER EXTREMITY: Yes lower leg Left lower leg: Yes inspection (lymphadema) Neuro: COMMON NORMALS: oriented x3 SENSORIUM/ORIENTATION: Yes alert MENINGEAL SIGNS: Yes no meningeal signs Skin: COMMON NORMALS: no rashes or lesions noted, no wounds, skin turgor normal, no jaundice, no petechiae and no mottling GENERAL SKIN EXAM: no rashes or lesions noted and turgor normal Course Reevaluation(s): Reevaluation #1: Discussed her lab and imaging findings with her. Chest x-ray and CT scan negative for acute findings, labs negative other than mildly elevated white cell count. We will manage her as a case of COPD exacerbation. She voiced understanding and is in agreement with the plan. Time: 18:10 Vital Signs: Vital signs: Vital Signs Temperature 98.2 F 04/23/19 14:25 Pulse Rate 79 04/23/19 18:18 Respiratory Rate 18 04/23/19 18:13 Blood Pressure 136/73 04/23/19 16:30 Pulse Oximetry 100 04/23/19 18:13 MDM - SOB/Dyspnea MDM Narrative: Medical decision making narrative: 53 year old female with a history of COPD who presents to the ED with complaints of shortness of breath. Evaluation in the ED is unremarkable with negative chest x-ray and chest CT, mild leukocytosis, negative influenza screen. She is discharged home and managed as a case of a COPD exacerbation. Differential Diagnosis: Shortness of Breath Differential Diagnosis: Likely acute exacerbation of chronic obstructive airways disease, congestive heart failure, community acquired pneumonia and pulmonary embolism Medical Records: Attestation: I reviewed the patient's medical records. Lab Data: Attestation: I reviewed the patient's lab results. Labs: Lab Results 04/23/19 04/23/19 04/23/19 Range/Units 15:03 15:03 15:03 WBC 12.5 H (4.0-10.0) 10^3/ uL RBC 3.79 L (4.1-5.3) 10^6/u L Hgb 11.2 L (11.5-15.3) g/dL Hct 35.5 L (37.0-47.0) % MCV 93.7 (81-99) fL MCH 29.6 (28.0-34.0) pg MCHC 31.5 (30.0-36.0) g/dL RDW 13.2 (12.1-15.1) % Plt Count 325 (130-400) 10^3/c mm MPV 10.6 H (7.4-10.4) fL Neut % (Auto) 67.2 % Lymph % (Auto) 22.8 % Ramsey % (Auto) 7.9 % Eos % (Auto) 1.2 % Baso % (Auto) 0.6 % Neut # (Auto) 8.4 H (1.8-7.7) 10^3/u L Lymph # (Auto) 2.9 (0.8-4.8) 10^3/u L Ramsey # (Auto) 1.0 H (0.2-0.9) 10^3/u L Eos # (Auto) 0.2 (0.0-0.8) 10^3/u L Baso # (Auto) 0.1 (0.0-0.1) 10^3/u L Nucleated RBC % (a uto) 0 % Nucleated RBCs # 0.0 /100WBC D-Dimer 0.47 (0-0.59) ug/mIFE U Specimen Type Sample Site ABG pH (7.35-7.45) ABG pCO2 (35-45) mmHg ABG pO2 (80.0-100.0) mmH g ABG HCO3 (22-26) mmol/L ABG Base Excess (-2.0-2.0) mmol/ L Nestor Test Hematocrit (37-47) % Hgb O2 Saturation (95-100) % Carboxyhemoglobin (0.4-20.1) %THgb Methemoglobin (0.4-1.5) % Total Hemoglobin (12-16) g/dL O2 Delivery Device O2 Liters/Min % FiO2 % [employer] Teacher ID Sodium 139 (136-145) mmol/L Potassium 4.1 (3.5-5.1) mmol/L Chloride 96 L (98-107) mmol/L Carbon Dioxide 36 H (22-29) mmol/L Anion Gap 11.1 (5-19) BUN 20 (6-20) mg/dL Creatinine 1.0 H (0.5-0.9) mg/dL GFR Calculation 57.8 L (90-130) mL/min Glucose 110 (65-115) mg/dL Calculated Osmolal ity 285 (285-295) mOsm/k g Lactic Acid (0.5-2.2) mmol/L Calcium 9.4 (8.5-10.5) mg/dL Total Bilirubin 1.2 (0.15-1.2) mg/dL AST 12 (0-32) U/L ALT 6 (0-33) U/L Alkaline Phosphata se 93 (35-105) IU/L Troponin T Baselin e (0-10) ng/mL Troponin T 120 Min solomon (0-10) ng/mL Delta Troponin T (0-10) ABS# NT-Pro-B Natriuret Pep 119 (0-125) pg/mL Total Protein 7.7 (6.6-8.7) g/dL Albumin 3.9 (3.5-5.2) g/dL Globulin 3.8 (1.3-4.6) g/dL Influenza Type A A g (Negative) POC Influenza B Ag (Negative) 04/23/19 04/23/19 04/23/19 Range/Units 15:03 15:03 15:33 WBC (4.0-10.0) 10^3/ uL RBC (4.1-5.3) 10^6/u L Hgb (11.5-15.3) g/dL Hct (37.0-47.0) % MCV (81-99) fL MCH (28.0-34.0) pg MCHC (30.0-36.0) g/dL RDW (12.1-15.1) % Plt Count (130-400) 10^3/c mm MPV (7.4-10.4) fL Neut % (Auto) % Lymph % (Auto) % Ramsey % (Auto) % Eos % (Auto) % Baso % (Auto) % Neut # (Auto) (1.8-7.7) 10^3/u L Lymph # (Auto) (0.8-4.8) 10^3/u L Ramsey # (Auto) (0.2-0.9) 10^3/u L Eos # (Auto) (0.0-0.8) 10^3/u L Baso # (Auto) (0.0-0.1) 10^3/u L Nucleated RBC % (a uto) % Nucleated RBCs # /100WBC D-Dimer (0-0.59) ug/mIFE U Specimen Type Arterial Sample Site Radial, left ABG pH 7.42 (7.35-7.45) ABG pCO2 47.7 H (35-45) mmHg ABG pO2 193.0 H* (80.0-100.0) mmH g ABG HCO3 30.7 H (22-26) mmol/L ABG Base Excess 5.3 H (-2.0-2.0) mmol/ L Nestor Test Pos Hematocrit 34.3 L (37-47) % Hgb O2 Saturation 97.8 (95-100) % Carboxyhemoglobin 0.1 L (0.4-20.1) %THgb Methemoglobin 1.4 (0.4-1.5) % Total Hemoglobin 11.2 L (12-16) g/dL O2 Delivery Device Nc O2 Liters/Min 3.0 % FiO2 32.0 % [employer] Teacher ID ed Sodium (136-145) mmol/L Potassium (3.5-5.1) mmol/L Chloride (98-107) mmol/L Carbon Dioxide (22-29) mmol/L Anion Gap (5-19) BUN (6-20) mg/dL Creatinine (0.5-0.9) mg/dL GFR Calculation (90-130) mL/min Glucose (65-115) mg/dL Calculated Osmolal ity (285-295) mOsm/k g Lactic Acid 1.3 (0.5-2.2) mmol/L Calcium (8.5-10.5) mg/dL Total Bilirubin (0.15-1.2) mg/dL AST (0-32) U/L ALT (0-33) U/L Alkaline Phosphata se (35-105) IU/L Troponin T Baselin e 15 H (0-10) ng/mL Troponin T 120 Min solomon (0-10) ng/mL Delta Troponin T (0-10) ABS# NT-Pro-B Natriuret Pep (0-125) pg/mL Total Protein (6.6-8.7) g/dL Albumin (3.5-5.2) g/dL Globulin (1.3-4.6) g/dL Influenza Type A A g (Negative) POC Influenza B Ag (Negative) 04/23/19 04/23/19 Range/Units 15:48 16:55 WBC (4.0-10.0) 10^3/ uL RBC (4.1-5.3) 10^6/u L Hgb (11.5-15.3) g/dL Hct (37.0-47.0) % MCV (81-99) fL MCH (28.0-34.0) pg MCHC (30.0-36.0) g/dL RDW (12.1-15.1) % Plt Count (130-400) 10^3/c mm MPV (7.4-10.4) fL Neut % (Auto) % Lymph % (Auto) % Ramsey % (Auto) % Eos % (Auto) % Baso % (Auto) % Neut # (Auto) (1.8-7.7) 10^3/u L Lymph # (Auto) (0.8-4.8) 10^3/u L Ramsey # (Auto) (0.2-0.9) 10^3/u L Eos # (Auto) (0.0-0.8) 10^3/u L Baso # (Auto) (0.0-0.1) 10^3/u L Nucleated RBC % (a uto) % Nucleated RBCs # /100WBC D-Dimer (0-0.59) ug/mIFE U Specimen Type Sample Site ABG pH (7.35-7.45) ABG pCO2 (35-45) mmHg ABG pO2 (80.0-100.0) mmH g ABG HCO3 (22-26) mmol/L ABG Base Excess (-2.0-2.0) mmol/ L Nestor Test Hematocrit (37-47) % Hgb O2 Saturation (95-100) % Carboxyhemoglobin (0.4-20.1) %THgb Methemoglobin (0.4-1.5) % Total Hemoglobin (12-16) g/dL O2 Delivery Device O2 Liters/Min % FiO2 % [employer] Teacher ID Sodium (136-145) mmol/L Potassium (3.5-5.1) mmol/L Chloride (98-107) mmol/L Carbon Dioxide (22-29) mmol/L Anion Gap (5-19) BUN (6-20) mg/dL Creatinine (0.5-0.9) mg/dL GFR Calculation (90-130) mL/min Glucose (65-115) mg/dL Calculated Osmolal ity (285-295) mOsm/k g Lactic Acid (0.5-2.2) mmol/L Calcium (8.5-10.5) mg/dL Total Bilirubin (0.15-1.2) mg/dL AST (0-32) U/L ALT (0-33) U/L Alkaline Phosphata se (35-105) IU/L Troponin T Baselin e (0-10) ng/mL Troponin T 120 Min solomon 14.79 H (0-10) ng/mL Delta Troponin T -0.21 L (0-10) ABS# NT-Pro-B Natriuret Pep (0-125) pg/mL Total Protein (6.6-8.7) g/dL Albumin (3.5-5.2) g/dL Globulin (1.3-4.6) g/dL Influenza Type A A g Negative (Negative) POC Influenza B Ag Negative (Negative) Imaging Data^: CXR: Radiologist's impression: [address] [address] XRay Report Signed Patient: Crystal Pierre #: [id number] : 1965Acct#:[id number] Age/Sex: 53 / FADM Date: 04/23/19 Loc: [facility]/Bed: Attending Dr: Ordering Provider/Ordering MD: Wednie Romero MD, [facility] Date of Service: 04/23/19 Procedure(s): XR chest 1V portable [id number] Accession Number(s): [id number] Report Number: [id number] WS: [id number] XR chest 1V portable [id number] REASON FOR EXAM: sob FINDINGS: Normal. Heart and mediastinum The lung odonnell are well aerated no pneumonia pulmonary edema pleural effusion The hilum is and apices normal. No osseous abnormalities. XR/XR chest 1V portable [id number] IMPRESSION: Negative chest for active pathology. Dictated By:Jasvir Beyer DO Signed By:Jasvir Beyer DOSigned Date/Time:04/23/19 1554 DD/ 1553 CT Chest: Radiologist's impression: [facility] [address] [place] [address] CT Scan Report Signed Patient: Crystal Pierre #: [id number] : 1965Acct#:[id number] Age/Sex: 53 / FADM Date: 04/23/19 Loc: [facility]/Bed: Attending Dr: Ordering Provider/Ordering MD: Wendie Romero MD, [facility] Date of Service: 04/23/19 Procedure(s): CT chest wo con [id number] Accession Number(s): [id number] Report Number: [id number] PROCEDURE INFORMATION: Exam: CT Chest Without Contrast Exam date and time: 04/23/2019 4:36 PM Age: 53 years old Clinical indication: Cough and shortness of breath; Prior surgery; Surgery type: Thyroid; Additional info: SOB TECHNIQUE: Imaging protocol: Computed tomography of the chest without contrast. Total DLP: 906.27 mGy-cm Radiation optimization: All CT scans at this facility use at least one of these dose optimization techniques: automated exposure control; mA and/or kV adjustment per patient size (includes targeted exams where dose is matched to clinical indication); or iterative reconstruction. COMPARISON: CT chest w con* [id number] 05/14/2018 10:05 AM FINDINGS: Thyroid: Status post thyroidectomy. Thyroid bed unremarkable. Lungs: No visible active interstitial or alveolar airspace disease. No visible evidence of significant restrictive airway disease. Very tiny subpleural nodule left upper lobe series 3, image 29 measuring under 2 mm. This finding stable since 05/14/2018. Suspect granuloma. No other visible pulmonary nodule bilaterally this examination. Suspect granuloma. For patients at low risk (minimal or absent history of smoking and of other known risk factors), no routine follow-up is indicated. For patients at high risk (history of smoking or of other known risk factors), consider optional CT at 12 months. (horacio Cunningham al., Fleischner Society, 2017). Very minimal dependent atelectasis. Pleural space: Unremarkable. No pneumothorax. No pleural effusion. Heart: Unremarkable. No cardiomegaly. No pericardial effusion. Aorta: The thoracic aorta is nonaneurysmal. Mild arterial sclerotic disease. Lymph nodes: No visible axillary lymphadenopathy. Gallbladder and bile ducts: Status post cholecystectomy. Adrenals: Adrenal glands appear unremarkable. Bones/joints: No visible active musculoskeletal pathology. Age-appropriate degenerative disease of the spine. No visible osteolytic or osteoblastic destructive process. Soft tissues: Unremarkable. Other findings: Remainder of the upper abdominal structures within the field of view intact and unremarkable. CT/CT chest wo con [id number] IMPRESSION: 1. Currently no visible evidence of active cardiopulmonary process. 2. Very tiny subpleural pulmonary nodule left upper lobe measuring under 2 mm. Suspect granuloma. For patients at low risk (minimal or absent history of smoking and of other known risk factors), no routine follow-up is indicated. For patients at high risk (history of smoking or of other known risk factors), consider optional CT at 12 months. (horacio Cunningham al., Fleischner Society, 2017) Radiation Dose CTDIVOL = (mGy): DLP = 906.27 (mGy-cm) Dictated By:Tee Watkins Signed By:Brigid Watkins Date/Time:04/23/191744 DD/ 42 EKG Data^: EKG 1: Computer Generated Interpretation: [address] [address] Electrocardiograph Report Signed Patient: Crystal Pierre #: [id number] : 1965Acct#:[id number] Age/Sex: 53 / FADM Date: 04/23/19 [facility] Attending Dr: Ordering Provider/Ordering MD: Wendie Romero MD, [facility] Date of Service: 04/23/19 Procedure(s): ECG 12 lead EKG Accession Number(s): [id number] Report Number: [id number] Measurements Intervals [place] Rate: 74 P: 56 WI: 135 QRS: 53 QRSD: 98 T: 58 QT: 389 QTc: 434 SINUS RHYTHM POSSIBLE RIGHT VENTRICULAR CONDUCTION DELAY [RSR (QR) IN V1/V2] Compared to ECG 03/30/2019 02:20:38 Myocardial infarct finding no longer present Electronically Signed On 04-23-2019 17:49:00 CDT by Amanda Bourgeois M.D. [email or web address] [id number] Dictated By:Amanda Bourgeois MD Signed By:Amanda Bourgeoisigned Date/Time:04/23/191749 DD/ 50 Discharge Plan Discharge Patient Disposition: Home, Self-Care Clinical Impression: Acute exacerbation of chronic obstructive airways disease Condition: Stable Prescriptions: New azithromycin 250 mg tablet See Rx Instructions .ROUTE .COMPLEX Qty: 6 RF: 0 prednisone 20 mg tablet 40 mg PO DAILY Qty: 10 RF: 0 Continued montelukast [Singulair] 10 mg tablet 10 mg PO DAILY RF: 0 levothyroxine 88 mcg capsule 88 mcg PO DAILY RF: 0 levetiracetam 250 mg tablet 250 mg PO BID RF: 0 aspirin [Adult Aspirin Regimen] 81 mg tablet,delayed release (DR/EC) 81 mg PO DAILY RF: 0 bumetanide 2 mg tablet 2 mg PO DAILY RF: 0 pantoprazole [Protonix] 40 mg tablet,delayed release (DR/EC) 40 mg PO DAILY RF: 0 atorvastatin 20 mg tablet 20 mg PO BEDTIME RF: 0 albuterol sulfate [ProAir HFA] 90 mcg/actuation HFA aerosol inhaler 2 puff INHALATION Q4H PRN (Reason: Shortness Of Breath) RF: 0 cetirizine 10 mg capsule 10 mg PO QDAY RF: 0 Klor-Con 20 mEq Packet 20 meq PO BID RF: 0 Vitamin D3 25 mcg (1,000 unit) Tablet,Chewable 25 mcg PO DAILY RF: 0 spironolactone 25 mg Tablet 25 mg PO DAILY RF: 0 diclofenac sodium 1 % Gel 2 - 4 g TOPICAL QID PRN (Reason: UNKNOWN) RF: 0 magnesium oxide 400 mg magnesium Tablet 400 mg PO DAILY RF: 0 isosorbide dinitrate 30 mg Tablet 15 mg PO Q12H RF: 0 bismuth subsalicylate [Pepto-Bismol] 262 mg/15 mL Suspension See Rx Instructions .ROUTE .COMPLEX RF: 0 metoprolol tartrate 50 mg Tablet 50 mg PO BID RF: 0 budesonide 0.5 mg/2 mL Suspension For Nebulization 0.5 mg INHALATION BID RF: 0 ipratropium bromide 0.02 % Solution See Rx Instructions .ROUTE .COMPLEX RF: 0 naproxen 500 mg Tablet 500 mg PO PRN RF: 0 guaifenesin [Mucinex] 600 mg Tablet Extended Release 12hr 1,200 mg PO BID RF: 0 Discharge Orders: Discharge Order (Routine); Ordered 04/23/19 Ordered By: Wendie Romero Referrals: Martin Jovel MD [Primary Care Provider] - 4-7 days Patient Instructions: Chronic Obstructive Pulmonary Disease (ED) Activity Restrictions/Additional Instructions: Return for any new or worsening symptoms. Take the medications as prescribed. Use your albuterol every 4 hours for the next 2 days then as needed thereafter. Follow-up with your primary care provider within 1 week Coding Level of Care Code ED Inspector And Adjuster [place] for Chg Fwd Exam Comprehensive The documentation recorded by the Annette gamboa Carmen, accurately reflects the service I personally performed and the decisions made by Heather gleason Adegoke I, MD, [facility] Apr 23, 2019 14:18
--- NOTE | 2019-04-23 15:09 | XR_ITS ---
WS: [id number] XR chest 1V portable [id number] REASON FOR EXAM: sob FINDINGS: Normal. Heart and mediastinum The lung odonnell are well aerated no pneumonia pulmonary edema pleural effusion The hilum is and apices normal. No osseous abnormalities. XR/XR chest 1V portable [id number] IMPRESSION: Negative chest for active pathology.
--- NOTE | 2019-04-23 15:09 | ECG_ITS ---
Measurements Intervals [place] Rate: 74 P: 56 IN: 135 QRS: 53 QRSD: 98 T: 58 QT: 389 QTc: 434 SINUS RHYTHM POSSIBLE RIGHT VENTRICULAR CONDUCTION DELAY [RSR (QR) IN V1/V2] Compared to ECG 03/30/2019 02:20:38 Myocardial infarct finding no longer present Electronically Signed On 04-23-2019 17:49:00 CDT by Amanda Bourgeois M.D. [email or web address]
[2019-04-23 15:15] LABS: Basophils # 0.1 10^3/uL (0.0-0.1); Basophils % 0.6 %; Eosinophils # 0.2 10^3/uL (0.0-0.8); Eosinophils % 1.2 %; Hematocrit 35.5 % (37.0-47.0); Hemoglobin 11.2 g/dL (11.5-15.3); Lymphocytes # 2.9 10^3/uL (0.8-4.8); Lymphocytes % 22.8 %; Mean Corpuscular HGB Conc 31.5 g/dL (30.0-36.0); Mean Corpuscular Hemoglobin 29.6 pg (28.0-34.0); Mean Corpuscular Volume 93.7 fL (81-99); Mean Platelet Volume 10.6 fL (7.4-10.4); Monocytes % 7.9 %; Neutrophils # 8.4 10^3/uL (1.8-7.7); Neutrophils % 67.2 %; Nucleated Red Blood Cells % 0 %; Platelet Count 325 10^3/cmm (130-400); Red Blood Count 3.79 10^6/uL (4.1-5.3); Red Cell Distribution Width 13.2 % (12.1-15.1); White Blood Count 12.5 10^3/uL (4.0-10.0)
[2019-04-23 15:27] LABS: Lactic Sepsis W/Reflex 1.3 mmol/L (0.5-2.2)
[2019-04-23 15:39] LABS: Alanine Aminotransferase 6 U/L (0-33); Albumin Level 3.9 g/dL (3.5-5.2); Alkaline Phosphatase 93 IU/L (35-105); Anion Gap 11.1 (5-19); Aspartate Amino Transferase 12 U/L (0-32); Blood Urea Nitrogen 20 mg/dL (6-20); Calcium 9.4 mg/dL (8.5-10.5); Carbon Dioxide 36 mmol/L (22-29); Chloride 96 mmol/L (98-107); Creatinine Clr Calc Pharmacy 83.5769; Globulin 3.8 g/dL (1.3-4.6); Glomerular Filtration Rate 57.8 mL/min (90-130); Glucose 110 mg/dL (65-115); NT Pro B Type Natriuretic Pept 119 pg/mL (0-125); Osmolality Calculated 285 mOsm/kg (285-295); Potassium 4.1 mmol/L (3.5-5.1); Sodium 139 mmol/L (136-145); Total Bilirubin 1.2 mg/dL (0.15-1.2); Total Protein 7.7 g/dL (6.6-8.7)
[2019-04-23 15:44] LABS: ABG PCO2 47.7 mmHg (35-45); ABG PH Result 7.42 (7.35-7.45); Arterial Blood Gas Hematocrit 34.3 % (37-47); Base Excess ABG 5.3 mmol/L (-2.0-2.0); Blood Gas Allen Test Pos; Blood Gas Sample Site Radial, left; Blood Gas Sample Type Arterial; Carboxyhemoglobin 0.1 %THgb (0.4-20.1); HCO3 ABG 30.7 mmol/L (22-26); HGB O2 Sat 97.8 % (95-100); Methemoglobin 1.4 % (0.4-1.5); Oxygen Device NC; Total Hemoglobin 11.2 g/dL (12-16)
[2019-04-23 15:55] LABS: Troponin(5th) Baseline 15 ng/mL (0-10)
[2019-04-23 16:09] LABS: D Dimer 0.47 ug/mIFEU (0-0.59)
--- NOTE | 2019-04-23 16:33 | CTR_ITS ---
PROCEDURE INFORMATION: Exam: CT Chest Without Contrast Exam date and time: 04/23/2019 4:36 PM Age: 53 years old Clinical indication: Cough and shortness of breath; Prior surgery; Surgery type: Thyroid; Additional info: SOB TECHNIQUE: Imaging protocol: Computed tomography of the chest without contrast. Total DLP: 906.27 mGy-cm Radiation optimization: All CT scans at this facility use at least one of these dose optimization techniques: automated exposure control; mA and/or kV adjustment per patient size (includes targeted exams where dose is matched to clinical indication); or iterative reconstruction. COMPARISON: CT chest w con* [id number] 05/14/2018 10:05 AM FINDINGS: Thyroid: Status post thyroidectomy. Thyroid bed unremarkable. Lungs: No visible active interstitial or alveolar airspace disease. No visible evidence of significant restrictive airway disease. Very tiny subpleural nodule left upper lobe series 3, image 29 measuring under 2 mm. This finding stable since 05/14/2018. Suspect granuloma. No other visible pulmonary nodule bilaterally this examination. Suspect granuloma. For patients at low risk (minimal or absent history of smoking and of other known risk factors), no routine follow-up is indicated. For patients at high risk (history of smoking or of other known risk factors), consider optional CT at 12 months. (Octavio et al., Fleischner Society, 2017). Very minimal dependent atelectasis. Pleural space: Unremarkable. No pneumothorax. No pleural effusion. Heart: Unremarkable. No cardiomegaly. No pericardial effusion. Aorta: The thoracic aorta is nonaneurysmal. Mild arterial sclerotic disease. Lymph nodes: No visible axillary lymphadenopathy. Gallbladder and bile ducts: Status post cholecystectomy. Adrenals: Adrenal glands appear unremarkable. Bones/joints: No visible active musculoskeletal pathology. Age-appropriate degenerative disease of the spine. No visible osteolytic or osteoblastic destructive process. Soft tissues: Unremarkable. Other findings: Remainder of the upper abdominal structures within the field of view intact and unremarkable. CT/CT chest wo con [id number] IMPRESSION: 1. Currently no visible evidence of active cardiopulmonary process. 2. Very tiny subpleural pulmonary nodule left upper lobe measuring under 2 mm. Suspect granuloma. For patients at low risk (minimal or absent history of smoking and of other known risk factors), no routine follow-up is indicated. For patients at high risk (history of smoking or of other known risk factors), consider optional CT at 12 months. (Octavio et al., Fleischner Society, 2017) Radiation Dose CTDIVOL = (mGy): DLP = 906.27 (mGy-cm)
[2019-04-23 17:13] LABS: Troponin 5 2HR 14.79 ng/mL (0-10)
[2019-04-23 17:31] LABS: Troponin 5 2HR Delta -0.21 ABS# (0-10)
[2019-04-23 17:56] LABS: Influenza A by IFA Negative (Negative); Influenza B by IFA Negative (Negative)
[2019-04-23] MEDS: ipratropium-albuterol 3 mL Neb INHALATION (18:18)
== END 2019-04-23 18:44 | disposition home or self-care (01) ==
PROVIDERS: Emergency Provider Family Medicine; Family Provider Family Medicine; PCP Family Medicine
DX: J44.1 Chronic obstructive pulmonary disease with (acute) exacerbation (principal); K21.9 Gastro-esophageal reflux disease without esophagitis; E03.9 Hypothyroidism, unspecified; G43.909 Migraine, unspecified, not intractable, without status migrainosus; Z87.891 Personal history of nicotine dependence; R91.1 Solitary pulmonary nodule
CPT/HCPCS: 12345; 36415; 36600; 71045; 71250; 80053; 82805; 83605; 83880; 84484; 85025; 85378; 87804; 93005; 94640; 99282; 99284

== ENCOUNTER 2019-05-10 21:42 | Emergency (ER) | payer MEDICARE, MEDICAID, SELFPAY ==
[2019-05-10] VITALS (9 sets, daily range): BP systolic 108–182; BP diastolic 66–93; PULSE 81–89; RESP 18–28; TEMP 36.7; O2SAT 98–100; BMI 40.2
--- NOTE | 2019-05-10 22:07 | PC.NURSE ---
PATIENT STATES SHE HAS BEEN DIZZY AND SHORT OF BREATH SINCE LAST NIGHT. PATIENT STATES THAT HER CHEST IS HURTING ALSO. PATIENT HAS SOME LOWER BILATERAL EXTREMITY EDEMA. PATIENT STATES HER PAIN 6/10.
--- NOTE | 2019-05-10 22:08 | XR_ITS ---
WS: [id number] PORTABLE CHEST HISTORY: sob COMPARISON: 04/23/2019 Decreased lung volumes. No pneumonia. No pleural effusion or pneumothorax. Cardiac size: Normal. Mediastinum/Aorta: Mediastinum is prominent but similar to prior studies. In part due to the technica l technique and supine position. No osseous abnormality seen. XR/XR chest 1V portable [id number] IMPRESSION: Unremarkable portable chest.
--- NOTE | 2019-05-10 22:08 | ECG_ITS ---
Measurements Intervals [place] Rate: 86 P: 30 IA: 128 QRS: 24 QRSD: 102 T: 34 QT: 381 QTc: 456 SINUS RHYTHM POSSIBLE RIGHT VENTRICULAR CONDUCTION DELAY [RSR (QR) IN V1/V2] Compared to ECG 04/23/2019 17:51:46 No significant changes Electronically Signed On 05-11-2019 20:22:16 CDT by Carla Adams M.D. [email or web address]
[2019-05-10 22:25] LABS: Basophils # 0.1 10^3/uL (0.0-0.1); Basophils % 0.6 %; Eosinophils # 0.2 10^3/uL (0.0-0.8); Eosinophils % 2.3 %; Hematocrit 33.9 % (37.0-47.0); Hemoglobin 10.5 g/dL (11.5-15.3); Lymphocytes # 2.2 10^3/uL (0.8-4.8); Lymphocytes % 21.2 %; Mean Corpuscular Hemoglobin 28.5 pg (28.0-34.0); Mean Corpuscular Volume 91.9 fL (81-99); Mean Platelet Volume 9.8 fL (7.4-10.4); Monocytes # 0.8 10^3/uL (0.2-0.9); Monocytes % 7.3 %; Neutrophils # 7.2 10^3/uL (1.8-7.7); Nucleated Red Blood Cells % 0 %; Platelet Count 347 10^3/cmm (130-400); Red Blood Count 3.69 10^6/uL (4.1-5.3); Red Cell Distribution Width 13.3 % (12.1-15.1); White Blood Count 10.6 10^3/uL (4.0-10.0)
--- NOTE | 2019-05-10 22:43 | W.ED.SOB ---
HPI - SOB/Dyspnea General: Chief Complaint: Shortness of Breath/Dyspnea Stated Complaint: sob/dizzy Time Seen by Provider: 05/10/19 22:00 History of Present Illness: MD elicited complaint: shortness of breath, cough, pain with inspiration and chest pain Pertinent past history: COPD Onset (ago): day(s) (2) Exacerbating factors: exertion and deep breaths Relieving factors: bronchodilators Known history of: COPD Associated symptoms: Reports chest congestion, chest pain and dizziness; Deny abdominal pain, fever(s), nausea or vomiting Treatment prior to arrival: bronchodilator Review of Systems Const: Denies: fever or chills Eyes: Denies: change in vision or blurry vision ENMT: Denies: painful swallowing, swelling of lips/tongue, post nasal drip or facial/sinus pain Card: Reports: chest pain Resp: Reports: chest congestion GI: Denies: abdominal pain, nausea or vomiting : Denies: painful urination or blood in urine Musc: Denies: neck pain or back pain Skin/Breast: Denies: rash, itching or redness Neuro: Reports: dizziness; Denies: headache, vertigo or confusion Psych: Denies: anxiety PFSH ED PFSH: Medical History (Updated 05/11/19 @ 00:08 by Odilon Gama DO) COPD (chronic obstructive pulmonary disease) GERD (gastroesophageal reflux disease) Hypothyroidism (acquired) Seizure disorder Surgical History H/O esophagogastroduodenoscopy 03/19/2019: Normal H/O thyroidectomy History of carpal tunnel surgery History of colonoscopy 03/19/2019: Normal repeat in 10 years Hx of section Social History Smoking and tobacco status: never smoked Quit status (tobacco): has quit using tobacco Year quit tobacco: 2019 - 1-5 ciggs/day Alcohol intake: never Lives independently: Yes Household members: none Housing: Apartment Current occupational status: disabled History of recent travel: No Current gender identity: Female Physical Exam Const: GENERAL APPEARANCE: well developed ORIENTATION/CONSCIOUSNESS: Yes oriented to person, Yes oriented to place and Yes oriented to time HENMT: COMMON NORMALS: normocephalic, external ears normal and external nose normal HEAD & SCALP: normocephalic FACE & SINUS: normal facial exam NOSE: external nose normal and no nasal discharge EXTERNAL EAR: Yes external ears normal MOUTH: tongue normal THROAT: posterior oropharynx normal; no peritonsillar mass Eye: COMMON NORMALS: PERRL, EOMs intact bilaterally and conjunctivae normal EYELID: eyelids normal CONJUNCTIVA: Yes conjunctivae normal PUPIL: Yes PERRL Neck/C-Spine: GENERAL: No tracheal deviation Chest: COMMONS NORMALS: inspection of chest normal CHEST: Yes tenderness Resp: COMMON NORMALS: negative for clear to auscultation bilaterally EFFORT & INSPECTION: Yes tachypneic, No respiratory distress, No retractions, Yes uses accessory muscles and No tracheal deviation AUSCULTATION: not clear to auscultation bilaterally, rhonchi, wheezes and diminished lung sounds Cardio: COMMON NORMALS: regular rate and regular rhythm RATE: regular rate RHYTHM: regular rhythm HEART SOUNDS: no murmurs PERIPHERAL PULSES: radial pulses present GI: INSPECTION: No abdominal distension AUSCULTATION: No hyperactive bowel sounds and No hypoactive bowel sounds PALPATION: No guarding and No rigid PERCUSSION: no dullness to percussion and no tympanic to percussion Neuro: SENSORIUM/ORIENTATION: Yes oriented to person, Yes oriented to place and Yes oriented to time Psych: COMMON NORMALS: mental status grossly normal Skin: COMMON NORMALS: no rashes or lesions noted GENERAL SKIN EXAM: no rashes or lesions noted Course Vital Signs: Vital signs: Vital Signs Temperature 98.1 F 05/10/19 22:01 Pulse Rate 91 05/11/19 00:17 Respiratory Rate 17 05/11/19 00:17 Blood Pressure 127/63 05/11/19 00:17 Pulse Oximetry 94 05/11/19 00:17 MDM - SOB/Dyspnea MDM Narrative: Medical decision making narrative: 53-year-old female, here frequently for similar symptoms. She has been short of breath, mild cough. She states she has had a fever, but none here. Her vitals are good. Her oxygen saturations have been 97 to 100%. Bronchodilator improved her symptoms. She will be placed on scheduled bronchodilator at home, Lab Data: Labs: Lab Results 05/10/19 05/10/19 05/10/19 Range/Units 22:11 22:11 22:16 WBC 10.6 H (4.0-10.0) 10^3/ uL RBC 3.69 L (4.1-5.3) 10^6/u L Hgb 10.5 L (11.5-15.3) g/dL Hct 33.9 L (37.0-47.0) % MCV 91.9 (81-99) fL MCH 28.5 (28.0-34.0) pg MCHC 31.0 (30.0-36.0) g/dL RDW 13.3 (12.1-15.1) % Plt Count 347 (130-400) 10^3/c mm MPV 9.8 (7.4-10.4) fL Neut % (Auto) 68.0 % Lymph % (Auto) 21.2 % Johnston % (Auto) 7.3 % Eos % (Auto) 2.3 % Baso % (Auto) 0.6 % Neut # (Auto) 7.2 (1.8-7.7) 10^3/u L Lymph # (Auto) 2.2 (0.8-4.8) 10^3/u L Johnston # (Auto) 0.8 (0.2-0.9) 10^3/u L Eos # (Auto) 0.2 (0.0-0.8) 10^3/u L Baso # (Auto) 0.1 (0.0-0.1) 10^3/u L Nucleated RBC % (a uto) 0 % Nucleated RBCs # 0.0 /100WBC Sodium 139 (136-145) mmol/L Potassium 3.7 (3.5-5.1) mmol/L Chloride 97 L (98-107) mmol/L Carbon Dioxide 28 (22-29) mmol/L Anion Gap 17.7 (5-19) BUN 15 (6-20) mg/dL Creatinine 1.2 H (0.5-0.9) mg/dL GFR Calculation 46.8 L (90-130) mL/min Glucose 120 H (65-115) mg/dL Calculated Osmolal ity 285 (285-295) mOsm/k g Calcium 9.6 (8.5-10.5) mg/dL Total Bilirubin 0.7 (0.15-1.2) mg/dL AST 15 (0-32) U/L ALT 12 (0-33) U/L Alkaline Phosphata se 99 (35-105) IU/L NT-Pro-B Natriuret Pep 79 (0-125) pg/mL Total Protein 7.8 (6.6-8.7) g/dL Albumin 4.1 (3.5-5.2) g/dL Globulin 3.7 (1.3-4.6) g/dL Influenza Type A A g Negative (Negative) Influenza Type B A g Negative (Negative) Discharge Plan Discharge Patient Disposition: Home, Self-Care Clinical Impression: Acute exacerbation of chronic obstructive airways disease Condition: Stable Prescriptions: New doxycycline hyclate 100 mg capsule 100 mg PO BID 7 Days Qty: 14 RF: 0 prednisone 10 mg tablet 10 mg PO DAILY Qty: 27 RF: 0 No Action montelukast [Singulair] 10 mg tablet 10 mg PO DAILY RF: 0 levothyroxine 88 mcg capsule 88 mcg PO DAILY RF: 0 levetiracetam 250 mg tablet 250 mg PO BID RF: 0 aspirin [Adult Aspirin Regimen] 81 mg tablet,delayed release (DR/EC) 81 mg PO DAILY RF: 0 bumetanide 2 mg tablet 2 mg PO DAILY RF: 0 pantoprazole [Protonix] 40 mg tablet,delayed release (DR/EC) 40 mg PO DAILY RF: 0 atorvastatin 20 mg tablet 20 mg PO BEDTIME RF: 0 albuterol sulfate [ProAir HFA] 90 mcg/actuation HFA aerosol inhaler 2 puff INHALATION Q4H PRN (Reason: Shortness Of Breath) RF: 0 cetirizine 10 mg capsule 10 mg PO QDAY RF: 0 Klor-Con 20 mEq Packet 20 meq PO BID RF: 0 Vitamin D3 25 mcg (1,000 unit) Tablet,Chewable 25 mcg PO DAILY RF: 0 azithromycin 250 mg tablet See Rx Instructions .ROUTE .COMPLEX Qty: 6 RF: 0 prednisone 20 mg tablet 40 mg PO DAILY Qty: 10 RF: 0 spironolactone 25 mg Tablet 25 mg PO DAILY RF: 0 diclofenac sodium 1 % Gel 2 - 4 g TOPICAL QID PRN (Reason: UNKNOWN) RF: 0 magnesium oxide 400 mg magnesium Tablet 400 mg PO DAILY RF: 0 isosorbide dinitrate 30 mg Tablet 15 mg PO Q12H RF: 0 bismuth subsalicylate [Pepto-Bismol] 262 mg/15 mL Suspension See Rx Instructions .ROUTE .COMPLEX RF: 0 metoprolol tartrate 50 mg Tablet 50 mg PO BID RF: 0 budesonide 0.5 mg/2 mL Suspension For Nebulization 0.5 mg INHALATION BID RF: 0 ipratropium bromide 0.02 % Solution See Rx Instructions .ROUTE .COMPLEX RF: 0 naproxen 500 mg Tablet 500 mg PO PRN RF: 0 guaifenesin [Mucinex] 600 mg Tablet Extended Release 12hr 1,200 mg PO BID RF: 0 Discharge Orders: Discharge Order (Routine); Ordered 05/11/19 Ordered By: Odilon Gama Referrals: Martin Jovel MD [Primary Care Provider] - 4-7 days Discharge Diet: Usual diet Discharge Activity: Increase activity as tolerated Patient Instructions: Chronic Obstructive Pulmonary Disease (ED), Chronic Bronchitis (ED) Activity Restrictions/Additional Instructions: If you have a fever, you should consider quarantining at home for up to 2 weeks. Return for continued fever despite 2-3 doses of antibiotics, worsening shortness of breath despite treatment, worsening chest discomfort, other concerning symptoms. Medications as directed. Use your nebulizer machine every 4 hours while awake for the next 48 hours, then as needed. Discharge Date/Time: 05/11/19 00:30 Coding Level of Care Code ED Senior Field Service Engineer for Dc Fwd Exam Comprehensive
[2019-05-10 22:47] LABS: Influenza A by IFA Negative (Negative); Influenza B by IFA Negative (Negative)
[2019-05-10] MEDS: morphine 4 mg/mL SDV 1 mL IVP ×2 (22:49→23:49)
[2019-05-10] MEDS: FUROsemide 10 mg/mL SDV 10mL 60 MG IVP (22:50)
[2019-05-10] MEDS: ondansetron 2 mg/ML SDV 2 mL 4 MG IVP (22:50)
[2019-05-10 22:52] LABS: Alanine Aminotransferase 12 U/L (0-33); Albumin Level 4.1 g/dL (3.5-5.2); Alkaline Phosphatase 99 IU/L (35-105); Anion Gap 17.7 (5-19); Aspartate Amino Transferase 15 U/L (0-32); Blood Urea Nitrogen 15 mg/dL (6-20); Calcium 9.6 mg/dL (8.5-10.5); Carbon Dioxide 28 mmol/L (22-29); Chloride 97 mmol/L (98-107); Globulin 3.7 g/dL (1.3-4.6); Glomerular Filtration Rate 46.8 mL/min (90-130); Glucose 120 mg/dL (65-115); NT Pro B Type Natriuretic Pept 79 pg/mL (0-125); Osmolality Calculated 285 mOsm/kg (285-295); Potassium 3.7 mmol/L (3.5-5.1); Sodium 139 mmol/L (136-145); Total Bilirubin 0.7 mg/dL (0.15-1.2); Total Protein 7.8 g/dL (6.6-8.7)
[2019-05-10] MEDS: ipratropium-albuterol 3 mL Neb INHALATION (23:15)
--- NOTE | 2019-05-10 23:39 | PC.NURSE ---
patient given water per hcp approval.
[2019-05-10] MEDS: LORazepam 2 mg/mL INJ 1 mL 0.5 MG IVP (23:50)
[2019-05-11 00:17] VITALS: BP 127/63; PULSE 91; RESP 17; O2SAT 94
[2019-05-11] MEDS: doxycycline 100 mg Tablet 200 MG PO (00:29)
[2019-05-11] MEDS: predniSONE 20 mg Tablet 40 MG PO (00:29)
== END 2019-05-11 00:30 | disposition home or self-care (01) ==
PROVIDERS: Emergency Provider Emergency Medicine; Family Provider Family Medicine; PCP Family Medicine
DX: J44.1 Chronic obstructive pulmonary disease with (acute) exacerbation (principal); I10 Essential (primary) hypertension; K21.9 Gastro-esophageal reflux disease without esophagitis; E03.9 Hypothyroidism, unspecified; G40.909 Epilepsy, unspecified, not intractable, without status epilepticus; Z79.82 Long term (current) use of aspirin; Z87.891 Personal history of nicotine dependence
CPT/HCPCS: 12345; 71045; 80053; 83880; 85025; 87804; 93005; 94640; 96374; 96375; 96376; 99283; 99284; J1940; J2060; J2270; J2405; J2930; J7512

== ENCOUNTER 2019-05-17 14:32 | Outpatient (CLI) | payer MEDICARE, MEDICAID, SELFPAY ==
--- NOTE | 2019-05-17 14:41 | USCV_ITS ---
Crystal Pierre Age: 53 Gender: F : 1965 Exam Date: 05/17/2019 14:53 Ordering Phys: Mary Fiore QUALITY IMPROVEMENT COORDINATOR QUALITY IMPROVEMENT COORDINATOR Technologist: Latasha Simpson Exam Location: [facility] [place] Indication: LT ARM NUMBNESS HISTORY: PROCEDURES: 2-D, Doppler and augmentation imaging is submitted of the left upper extremity venous system extending from the left jugular vein through the radial and ulnar veins. The cephalic vein and basilic veins are also included. FINDINGS: Normal 2-D, color Doppler and phasicity noted in the left upper extremity venous system extending from the left internal jugular vein through the main forearm. No thrombosis or occlusion noted. CONCLUSIONS No left upper extremity DVT. Dr. Kadi Ceballos DO (Electronically Signed) Final Date: 17 May 2019 15:19 S
== END 2019-05-17 14:33 | disposition home or self-care (01) ==
LOC: RADWPI 14:39
PROVIDERS: Family Provider Family Medicine; PCP Family Medicine; Visit Provider Nurse Practitioner Family
DX: R20.2 Paresthesia of skin (principal); R60.0 Localized edema
CPT/HCPCS: 93971

== ENCOUNTER 2019-05-27 20:48 | Emergency (ER) | payer MEDICARE, MEDICAID, SELFPAY ==
[2019-05-27 20:50] VITALS: BP 143/47; PULSE 84; RESP 18; TEMP 37.1; O2SAT 98; BMI 34.4
--- NOTE | 2019-05-27 21:05 | W.ED.NEUROSD ---
HPI - Neuro Symptoms/Deficit General: Chief Complaint: Neuro Symptoms/Deficit Stated Complaint: LEFT ARM NUMB/TINGLING Time Seen by Provider: 05/27/19 20:55 Source: patient Mode of arrival: ambulatory Limitations: no limitations History of Present Illness: HPI Narrative: 53-year-old female who states she has had left arm paresthesias for the last 2 to 3 weeks. Patient had an ultrasound of her arm that was negative and is set up for nerve conduction study on the . Her PCP is concerned she may have entrapment at the elbow. States the numbness starts at the elbow and goes to her hand. States she has some pain at the elbow to that is mild and rates it a 2 out of 10. She has no other neurologic symptoms. She denies any worsening or improving factors. Onset (ago): week(s) Associated symptoms: Deny chest pain, headache(s), nausea or vomiting Review of Systems Const: Denies: fever, chills, body aches or change in appetite Eyes: Denies: blurry vision or eye discomfort ENMT: Denies: throat pain or dental pain Card: Denies: chest pain Resp: Denies: shortness of breath GI: Denies: abdominal pain, nausea, vomiting or diarrhea : Denies: painful urination Musc: Denies: neck pain or back pain Skin/Breast: Denies: rash Neuro: Denies: headache Psych: Denies: depression Peter/Lymph: Denies: easy bruising All/Imm: Denies: hives PFSH ED PFSH: Medical History COPD (chronic obstructive pulmonary disease) GERD (gastroesophageal reflux disease) Hypothyroidism (acquired) Seizure disorder Surgical History H/O esophagogastroduodenoscopy 03/19/2019: Normal H/O thyroidectomy History of carpal tunnel surgery History of colonoscopy 03/19/2019: Normal repeat in 10 years Hx of section Social History Smoking and tobacco status: never smoked Quit status (tobacco): has quit using tobacco Year quit tobacco: 2019 - 1-5 ciggs/day Alcohol intake: never Lives independently: Yes Household members: none Housing: Apartment Current occupational status: disabled History of recent travel: No Current gender identity: Female Physical Exam Const: COMMON NORMALS: no apparent distress, oriented x3 and healthy appearing HENMT: COMMON NORMALS: normocephalic and head/scalp atraumatic HEAD & SCALP: normocephalic and atraumatic Eye: COMMON NORMALS: PERRL and EOMs intact bilaterally PUPIL: Yes PERRL Neck/C-Spine: COMMON NORMALS: full ROM and supple Chest: COMMONS NORMALS: inspection of chest normal and palpation of chest normal Resp: COMMON NORMALS: normal respiratory effort, no retractions, no use of accessory muscles and clear to auscultation bilaterally AUSCULTATION: clear to auscultation bilaterally Cardio: COMMON NORMALS: regular rate, regular rhythm and no murmurs RATE: regular rate RHYTHM: regular rhythm GI: COMMON NORMALS: normal to inspection, nondistended, normoactive bowel sounds, soft to palpation, non-tender and no masses PALPATION: Yes soft Extremity: COMMON NORMALS: normal to inspection and full ROM Neuro: COMMON NORMALS: oriented x3, moves all extremities and no focal motor deficits Psych: COMMON NORMALS: mental status grossly normal, thought process normal and cooperative THOUGHT PROCESS: normal thought process Skin: COMMON NORMALS: no rashes or lesions noted and no wounds GENERAL SKIN EXAM: no rashes or lesions noted Course Vital Signs: Vital signs: Vital Signs Temperature 98.8 F 05/27/19 20:50 Pulse Rate 84 05/27/19 20:50 Respiratory Rate 18 05/27/19 20:50 Blood Pressure 143/47 05/27/19 20:50 Pulse Oximetry 98 05/27/19 20:50 MDM - Neuro Symptoms/Deficit MDM Narrative: Medical decision making narrative: Patient presents with paresthesias to left arm. She set up for nerve conduction study on the and is to follow-up with that then. Patient placed in Tho wrap. She has no signs of a stroke. She is stable for discharge and is return if worsening. Discharge Plan Discharge Patient Disposition: Home, Self-Care Clinical Impression: Paresthesia Condition: Stable Prescriptions: New EC-Naprosyn 500 mg tablet,delayed release (DR/EC) 500 mg PO BID PRN (Reason: pain) Qty: 20 RF: 0 No Action montelukast [Singulair] 10 mg tablet 10 mg PO DAILY RF: 0 levothyroxine 88 mcg capsule 88 mcg PO DAILY RF: 0 levetiracetam 250 mg tablet 250 mg PO BID RF: 0 aspirin [Adult Aspirin Regimen] 81 mg tablet,delayed release (DR/EC) 81 mg PO DAILY RF: 0 bumetanide 2 mg tablet 2 mg PO DAILY RF: 0 pantoprazole [Protonix] 40 mg tablet,delayed release (DR/EC) 40 mg PO DAILY RF: 0 atorvastatin 20 mg tablet 20 mg PO BEDTIME RF: 0 albuterol sulfate [ProAir HFA] 90 mcg/actuation HFA aerosol inhaler 2 puff INHALATION Q4H PRN (Reason: Shortness Of Breath) RF: 0 cetirizine 10 mg capsule 10 mg PO QDAY RF: 0 Klor-Con 20 mEq Packet 20 meq PO BID RF: 0 Vitamin D3 25 mcg (1,000 unit) Tablet,Chewable 25 mcg PO DAILY RF: 0 azithromycin 250 mg tablet See Rx Instructions .ROUTE .COMPLEX Qty: 6 RF: 0 prednisone 20 mg tablet 40 mg PO DAILY Qty: 10 RF: 0 prednisone 10 mg tablet 10 mg PO DAILY Qty: 27 RF: 0 spironolactone 25 mg Tablet 25 mg PO DAILY RF: 0 diclofenac sodium 1 % Gel 2 - 4 g TOPICAL QID PRN (Reason: UNKNOWN) RF: 0 magnesium oxide 400 mg magnesium Tablet 400 mg PO DAILY RF: 0 isosorbide dinitrate 30 mg Tablet 15 mg PO Q12H RF: 0 bismuth subsalicylate [Pepto-Bismol] 262 mg/15 mL Suspension See Rx Instructions .ROUTE .COMPLEX RF: 0 metoprolol tartrate 50 mg Tablet 50 mg PO BID RF: 0 budesonide 0.5 mg/2 mL Suspension For Nebulization 0.5 mg INHALATION BID RF: 0 ipratropium bromide 0.02 % Solution See Rx Instructions .ROUTE .COMPLEX RF: 0 naproxen 500 mg Tablet 500 mg PO PRN RF: 0 guaifenesin [Mucinex] 600 mg Tablet Extended Release 12hr 1,200 mg PO BID RF: 0 Discharge Orders: Discharge Order (Routine); Ordered 05/27/19 Ordered By: Tenisha Casey Referrals: Martin Jovel MD [Primary Care Provider] - 1-3 days Discharge Diet: Advance as tolerated Discharge Activity: Resume usual activity Patient Instructions: Paresthesia (ED) Coding Level of Care Code ED 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
[2019-05-27] MEDS: ketorolac 30 mg/mL INJ IM (21:10)
== END 2019-05-27 21:18 | disposition home or self-care (01) ==
PROVIDERS: Emergency Provider Emergency Medicine; Family Provider Family Medicine; PCP Family Medicine
DX: R20.2 Paresthesia of skin (principal); Z79.82 Long term (current) use of aspirin; J44.9 Chronic obstructive pulmonary disease, unspecified; Z87.891 Personal history of nicotine dependence; E03.9 Hypothyroidism, unspecified
CPT/HCPCS: 12345; 96372; 99281; 99283; J1885

== ENCOUNTER → 2019-06-03 11:11 | Outpatient (BNVA) | payer MEDICARE, MEDICAID, SELFPAY | PROVIDERS: Family Provider Family Medicine; PCP Family Medicine; Visit Provider Nurse Practitioner Family | DX: M79.642 Pain in left hand (principal) | CPT/HCPCS: 73130 ==

== ENCOUNTER 2019-06-10 13:42 | Outpatient (CLI) | payer MEDICARE, MEDICAID, SELFPAY ==
--- NOTE | 2019-06-10 14:06 | XR_ITS ---
WS: [id number] LEFT WRIST: 3 VIEW(S) TECHNIQUE: PA, oblique and lateral. HISTORY: WRIST PAIN COMPARISON: None available. No acute fracture or dislocation. Mild narrowing of the radiocarpal joint. Mild ulna minus variant. Small erosions at the first metacar pal head. No subluxations. There is cortical thickening involving the distal ulna and radius which ca n be seen with history of smoking. No soft tissue swelling. XR/XR wrist LT min 3V* [id number] IMPRESSION: Mild narrowing of the radial carpal joint. Erosions in the first metacarpal head can be associated with inflammatory arthr opathy.
--- NOTE | 2019-06-10 14:06 | XR_ITS ---
WS: [id number] LEFT ELBOW: 3 VIEW(S) TECHNIQUE: AP, oblique and lateral. HISTORY: ELBOW PAIN COMPARISON: None available. No acute fractures or dislocation. No joint effusion. No soft tissue abnormality. XR/XR elbow LT min 3V* [id number] IMPRESSION: Normal LEFT elbow.
== END 2019-06-10 13:43 | disposition home or self-care (01) ==
LOC: RAD 13:47
PROVIDERS: Family Provider Family Medicine; PCP Nurse Practitioner Family; Visit Provider Nurse Practitioner Family
DX: M25.522 Pain in left elbow (principal); R29.6 Repeated falls; M25.532 Pain in left wrist; M85.88 Other specified disorders of bone density and structure, other site
CPT/HCPCS: 73080; 73110

== ENCOUNTER 2019-06-15 22:00 | Emergency (ER) | payer MEDICARE, MEDICAID, SELFPAY ==
[2019-06-15 22:03] VITALS: BP 149/60; PULSE 95; RESP 18; TEMP 36.7; O2SAT 96; BMI 43.8
--- NOTE | 2019-06-15 22:09 | XR_ITS ---
WS: [id number] XR chest 1V portable [id number] REASON FOR EXAM: cp FINDINGS: The heart and mediastinal interspace normal. The lung odonnell are normally aerated no pneumonia pulmonary edema pleural effusion. The hilum and apices normal. No osseous abnormalities. Chest is similar to May 10, 2019. XR/XR chest 1V portable [id number] IMPRESSION: Negative chest for active pathology.
--- NOTE | 2019-06-15 22:09 | ECG_ITS ---
Measurements Intervals [place] Rate: 94 P: 61 LA: 130 QRS: 45 QRSD: 106 T: 52 QT: 358 QTc: 450 SINUS RHYTHM POSSIBLE RIGHT VENTRICULAR CONDUCTION DELAY [RSR (QR) IN V1/V2] Compared to ECG 05/10/2019 22:28:11 No significant changes Electronically Signed On 06-16-2019 19:59:06 CDT by Funmilayo De La Rosa M.D. [email or web address]
[2019-06-15 23:51] VITALS: RESP 18
[2019-06-15] MEDS: ondansetron 2 mg/ML SDV 2 mL 4 MG IVP (23:51)
[2019-06-15] MEDS: morphine 4 mg/mL SDV 1 mL IVP (23:51)
[2019-06-16] VITALS (7 sets, daily range): BP systolic 110–134; BP diastolic 59–69; PULSE 76–91; RESP 16–22; O2SAT 94–98
--- NOTE | 2019-06-16 00:09 | ECG_ITS ---
Measurements Intervals [place] Rate: 90 P: 54 MI: 131 QRS: 46 QRSD: 107 T: 51 QT: 369 QTc: 452 SINUS RHYTHM POSSIBLE RIGHT VENTRICULAR CONDUCTION DELAY [RSR (QR) IN V1/V2] Compared to ECG 05/10/2019 22:28:11 No significant changes Electronically Signed On 06-16-2019 20:13:51 CDT by Funmilayo De La Rosa M.D. [email or web address]
[2019-06-16 00:49] LABS: Basophils # 0.1 10^3/uL (0.0-0.1); Basophils % 0.7 %; Eosinophils # 0.1 10^3/uL (0.0-0.8); Eosinophils % 1.1 %; Hematocrit 32.4 % (37.0-47.0); Hemoglobin 9.9 g/dL (11.5-15.3); Lymphocytes # 2.4 10^3/uL (0.8-4.8); Lymphocytes % 26.2 %; Mean Corpuscular HGB Conc 30.6 g/dL (30.0-36.0); Mean Corpuscular Hemoglobin 27.8 pg (28.0-34.0); Mean Platelet Volume 9.5 fL (7.4-10.4); Monocytes % 10.9 %; Neutrophils # 5.6 10^3/uL (1.8-7.7); Neutrophils % 60.6 %; Nucleated Red Blood Cells % 0 %; Platelet Count 342 10^3/cmm (130-400); Red Blood Count 3.56 10^6/uL (4.1-5.3); Red Cell Distribution Width 14.2 % (12.1-15.1); White Blood Count 9.2 10^3/uL (4.0-10.0)
[2019-06-16 00:52] LABS: Add Urine Microscopic? NO
[2019-06-16 00:59] LABS: INR 0.98 (0.8-1.2)
[2019-06-16 01:10] LABS: Troponin(5th) Baseline 13 ng/mL (0-10)
[2019-06-16 01:14] LABS: Alanine Aminotransferase 7 U/L (0-33); Albumin Level 3.6 g/dL (3.5-5.2); Alkaline Phosphatase 81 IU/L (35-105); Anion Gap 16.5 (5-19); Aspartate Amino Transferase 13 U/L (0-32); Blood Urea Nitrogen 14 mg/dL (6-20); Carbon Dioxide 29 mmol/L (22-29); Chloride 98 mmol/L (98-107); Globulin 2.8 g/dL (1.3-4.6); Glomerular Filtration Rate 57.8 mL/min (90-130); Glucose 111 mg/dL (65-115); NT Pro B Type Natriuretic Pept 72 pg/mL (0-125); Osmolality Calculated 287 mOsm/kg (285-295); Potassium 3.5 mmol/L (3.5-5.1); Sodium 140 mmol/L (136-145); Total Bilirubin 0.6 mg/dL (0.15-1.2); Total Protein 6.4 g/dL (6.6-8.7)
[2019-06-16 01:16] LABS: Bilirubin Urine Neg (NEGATIVE); Blood Urine Neg (Negative); Glucose Urine UA Norm (Normal); Ketones Urine Negative (Negative); Leukocyte Esterase Urine Negative (Negative); Nitrate Urine Negative (Negative); Protein Urine Neg (Negative); Specific Gravity, Urine 1.015 (1.005-1.030); Urine Appearance Clear (CLEAR); Urine Color Yellow (Yellow); Urobilinogen Urine Norm (Negative); pH Urine 6 (5-7)
[2019-06-16 01:46] LABS: C Reactive Protein 16.4 mg/L (0.0-4.9)
--- NOTE | 2019-06-16 02:18 | ED_ITS ---
HPI - Chest Pain General: Chief Complaint: Chest Pain Stated Complaint: CHEST PAIN Time Seen by Provider: 06/15/19 22:07 History of Present Illness: HPI narrative: 53-year-old female with chest discomfort for 3 days on and off. She states that it hurts in the left side of her chest, goes into her back. She has not been coughing. She has trouble breathing. She states that she has not been wheezing. No fever. MD complaint: chest pain Onset (ago): day(s) (3) Timing of current episode: episodic Prior episodes: Yes Onset: during rest Pain location: substernal and left chest Pain radiation: back Severity: moderate Quality: tightness, heaviness and sharp Relieving factors: nothing Exacerbating factors: exertion Associated symptoms: Reports dyspnea and leg edema; Deny abdominal pain, fever(s), nausea, palpitations or vomiting Review of Systems Const: Denies: fever Eyes: Denies: change in vision ENMT: Denies: painful swallowing or facial/sinus pain Card: Reports: chest pain, edema, swelling of feet/ankles and shortness of breath on exertion; Denies: palpitations, irregular heart rhythm or shortness of breath when lying down Resp: Reports: shortness of breath GI: Denies: abdominal pain, nausea or vomiting : Denies: painful urination, urinary frequency or blood in urine Musc: Denies: neck pain, back pain, redness or joint warmth Skin/Breast: Denies: rash, itching or redness Neuro: Denies: headache, dizziness or vertigo Psych: Denies: anxiety PFSH ED PFSH: Social History Smoking and tobacco status: former smoker Quit status (tobacco): has quit using tobacco Year quit tobacco: 2019 - 1-5 ciggs/day Alcohol intake: never Lives independently: Yes Household members: none Housing: Apartment Current occupational status: disabled History of recent travel: No Current gender identity: Female Physical Exam Const: GENERAL APPEARANCE: well developed ORIENTATION/CONSCIOUSNESS: Yes oriented to person, Yes oriented to place and Yes oriented to time HENMT: COMMON NORMALS: normocephalic and external nose normal HEAD & SCALP: normocephalic NOSE: external nose normal and no nasal discharge THROAT: posterior oropharynx normal; no peritonsillar mass Eye: COMMON NORMALS: PERRL, EOMs intact bilaterally and conjunctivae normal EYELID: eyelids normal CONJUNCTIVA: Yes conjunctivae normal PUPIL: Yes PERRL Neck/C-Spine: GENERAL: No tracheal deviation Chest: COMMONS NORMALS: inspection of chest normal CHEST: Yes tenderness Resp: COMMON NORMALS: clear to auscultation bilaterally EFFORT & INSPECTION: No tachypneic, No respiratory distress, No retractions, No uses accessory muscles and No tracheal deviation AUSCULTATION: clear to auscultation bilaterally, no rhonchi, no wheezes and diminished lung sounds Cardio: COMMON NORMALS: regular rate and regular rhythm RATE: regular rate RHYTHM: regular rhythm HEART SOUNDS: no murmurs PERIPHERAL PULSES: radial pulses present GI: INSPECTION: No abdominal distension AUSCULTATION: No hyperactive bowel sounds and No hypoactive bowel sounds PALPATION: No guarding and No rigid PERCUSSION: no dullness to percussion and no tympanic to percussion Extremity: NARRATIVE EXTREMITY EXAM: 3+ edema bilateral Neuro: SENSORIUM/ORIENTATION: Yes oriented to person, Yes oriented to place and Yes oriented to time Psych: COMMON NORMALS: mental status grossly normal Skin: COMMON NORMALS: no rashes or lesions noted GENERAL SKIN EXAM: no rashes or lesions noted Course Vital Signs: Vital signs: Vital Signs Temperature 98.0 F 06/15/19 22:03 Pulse Rate 76 06/16/19 03:15 Respiratory Rate 20 H 06/16/19 03:30 Blood Pressure 120/59 06/16/19 03:15 Pulse Oximetry 95 06/16/19 03:15 MDM - Chest Pain MDM Narrative: Medical decision making narrative: 53-year-old lady well-known to the emergency department. She presents with reproducible chest pain. Her chest x-ray is negative. White blood cell count is 9.2. Her hemoglobin is stable at 10. Her troponin did not change at 2 hours. Her EKG shows a sinus rhythm without acute ST change. She will be treated for atypical chest pain. Lab Data: Labs: Lab Results 06/16/19 06/16/19 06/16/19 Range/Units 00:43 00:45 00:45 WBC 9.2 (4.0-10.0) 10^3/ uL RBC 3.56 L (4.1-5.3) 10^6/u L Hgb 9.9 L (11.5-15.3) g/dL Hct 32.4 L (37.0-47.0) % MCV 91.0 (81-99) fL MCH 27.8 L (28.0-34.0) pg MCHC 30.6 (30.0-36.0) g/dL RDW 14.2 (12.1-15.1) % Plt Count 342 (130-400) 10^3/c mm MPV 9.5 (7.4-10.4) fL Neut % (Auto) 60.6 % Lymph % (Auto) 26.2 % [place] % (Auto) 10.9 % Eos % (Auto) 1.1 % Baso % (Auto) 0.7 % Neut # (Auto) 5.6 (1.8-7.7) 10^3/u L Lymph # (Auto) 2.4 (0.8-4.8) 10^3/u L [place] # (Auto) 1.0 H (0.2-0.9) 10^3/u L Eos # (Auto) 0.1 (0.0-0.8) 10^3/u L Baso # (Auto) 0.1 (0.0-0.1) 10^3/u L Nucleated RBC % (a uto) 0 % Nucleated RBCs # 0.0 /100WBC PT 13.30 (10.5-13.3) SECO NDS INR 0.98 (0.8-1.2) APTT 30.0 (23.9-36.7) SECO NDS Sodium (136-145) mmol/L Potassium (3.5-5.1) mmol/L Chloride (98-107) mmol/L Carbon Dioxide (22-29) mmol/L Anion Gap (5-19) BUN (6-20) mg/dL Creatinine (0.5-0.9) mg/dL GFR Calculation (90-130) mL/min Glucose (65-115) mg/dL Calculated Osmolal ity (285-295) mOsm/k g Calcium (8.5-10.5) mg/dL Total Bilirubin (0.15-1.2) mg/dL AST (0-32) U/L ALT (0-33) U/L Alkaline Phosphata se (35-105) IU/L Troponin T Baselin e (0-10) ng/mL Troponin T 120 Min [place] (0-10) ng/mL Delta Troponin T (0-10) ABS# C-Reactive Protein (0.0-4.9) mg/L NT-Pro-B Natriuret Pep (0-125) pg/mL Total Protein (6.6-8.7) g/dL Albumin (3.5-5.2) g/dL Globulin (1.3-4.6) g/dL Urine Color Yellow (Yellow) Urine Appearance Clear (CLEAR) Urine pH 6 (5-7) Ur Specific Gravit y 1.015 (1.005-1.030) Urine Protein Neg (Negative) Urine Glucose (UA) Norm (Normal) Urine Ketones Negative (Negative) Urine Blood Neg (Negative) Urine Nitrate Negative (Negative) Urine Bilirubin Neg (NEGATIVE) Urine Urobilinogen Norm (Negative) mg/dL Ur Leukocyte Jacqui ase Negative (Negative) 06/16/19 06/16/19 06/16/19 Range/Units 00:45 00:45 02:40 WBC (4.0-10.0) 10^3/ uL RBC (4.1-5.3) 10^6/u L Hgb (11.5-15.3) g/dL Hct (37.0-47.0) % MCV (81-99) fL MCH (28.0-34.0) pg MCHC (30.0-36.0) g/dL RDW (12.1-15.1) % Plt Count (130-400) 10^3/c mm MPV (7.4-10.4) fL Neut % (Auto) % Lymph % (Auto) % [place] % (Auto) % Eos % (Auto) % Baso % (Auto) % Neut # (Auto) (1.8-7.7) 10^3/u L Lymph # (Auto) (0.8-4.8) 10^3/u L [place] # (Auto) (0.2-0.9) 10^3/u L Eos # (Auto) (0.0-0.8) 10^3/u L Baso # (Auto) (0.0-0.1) 10^3/u L Nucleated RBC % (a uto) % Nucleated RBCs # /100WBC PT (10.5-13.3) SECO NDS INR (0.8-1.2) APTT (23.9-36.7) SECO NDS Sodium 140 (136-145) mmol/L Potassium 3.5 (3.5-5.1) mmol/L Chloride 98 (98-107) mmol/L Carbon Dioxide 29 (22-29) mmol/L Anion Gap 16.5 (5-19) BUN 14 (6-20) mg/dL Creatinine 1.0 H (0.5-0.9) mg/dL GFR Calculation 57.8 L (90-130) mL/min Glucose 111 (65-115) mg/dL Calculated Osmolal ity 287 (285-295) mOsm/k g Calcium 8.0 L (8.5-10.5) mg/dL Total Bilirubin 0.6 (0.15-1.2) mg/dL AST 13 (0-32) U/L ALT 7 (0-33) U/L Alkaline Phosphata se 81 (35-105) IU/L Troponin T Baselin e 13 H (0-10) ng/mL Troponin T 120 Min [place] 13.12 H (0-10) ng/mL Delta Troponin T 0.12 (0-10) ABS# C-Reactive Protein 16.4 H (0.0-4.9) mg/L NT-Pro-B Natriuret Pep 72 (0-125) pg/mL Total Protein 6.4 L (6.6-8.7) g/dL Albumin 3.6 (3.5-5.2) g/dL Globulin 2.8 (1.3-4.6) g/dL Urine Color (Yellow) Urine Appearance (CLEAR) Urine pH (5-7) Ur Specific Gravit y (1.005-1.030) Urine Protein (Negative) Urine Glucose (UA) (Normal) Urine Ketones (Negative) Urine Blood (Negative) Urine Nitrate (Negative) Urine Bilirubin (NEGATIVE) Urine Urobilinogen (Negative) mg/dL Ur Leukocyte Jacqui ase (Negative) Discharge Plan Discharge Patient Disposition: Home, Self-Care Clinical Impression: Atypical chest pain Condition: Stable Prescriptions: No Action montelukast [Singulair] 10 mg tablet 10 mg PO DAILY RF: 0 levothyroxine 88 mcg capsule 88 mcg PO DAILY RF: 0 levetiracetam 250 mg tablet 250 mg PO BID RF: 0 aspirin [Adult Aspirin Regimen] 81 mg tablet,delayed release (DR/EC) 81 mg PO DAILY RF: 0 bumetanide 2 mg tablet 2 mg PO DAILY RF: 0 pantoprazole [Protonix] 40 mg tablet,delayed release (DR/EC) 40 mg PO DAILY RF: 0 atorvastatin 20 mg tablet 20 mg PO BEDTIME RF: 0 albuterol sulfate [ProAir HFA] 90 mcg/actuation HFA aerosol inhaler 2 puff INHALATION Q4H PRN (Reason: Shortness Of Breath) RF: 0 cetirizine 10 mg capsule 10 mg PO QDAY RF: 0 Klor-Con 20 mEq Packet 20 meq PO BID RF: 0 Vitamin D3 25 mcg (1,000 unit) Tablet,Chewable 25 mcg PO DAILY RF: 0 azithromycin 250 mg tablet See Rx Instructions .ROUTE .COMPLEX Qty: 6 RF: 0 prednisone 20 mg tablet 40 mg PO DAILY Qty: 10 RF: 0 prednisone 10 mg tablet 10 mg PO DAILY Qty: 27 RF: 0 EC-Naprosyn 500 mg tablet,delayed release (DR/EC) 500 mg PO BID PRN (Reason: pain) Qty: 20 RF: 0 spironolactone 25 mg Tablet 25 mg PO DAILY RF: 0 diclofenac sodium 1 % Gel 2 - 4 g TOPICAL QID PRN (Reason: UNKNOWN) RF: 0 magnesium oxide 400 mg magnesium Tablet 400 mg PO DAILY RF: 0 isosorbide dinitrate 30 mg Tablet 15 mg PO Q12H RF: 0 bismuth subsalicylate [Pepto-Bismol] 262 mg/15 mL Suspension See Rx Instructions .ROUTE .COMPLEX RF: 0 metoprolol tartrate 50 mg Tablet 50 mg PO BID RF: 0 budesonide 0.5 mg/2 mL Suspension For Nebulization 0.5 mg INHALATION BID RF: 0 ipratropium bromide 0.02 % Solution See Rx Instructions .ROUTE .COMPLEX RF: 0 naproxen 500 mg Tablet 500 mg PO PRN RF: 0 guaifenesin [Mucinex] 600 mg Tablet Extended Release 12hr 1,200 mg PO BID RF: 0 Discharge Orders: Discharge Order (Routine); Ordered 06/16/19 Ordered By: Odilon Gama Referrals: Mary Fiore FNP [Primary Care Provider] - 4-7 days Discharge Diet: Advance as tolerated Discharge Activity: Increase activity as tolerated Patient Instructions: Chest Pain (ED) Activity Restrictions/Additional Instructions: Return for worsening pain despite treatment, worsening shortness of breath, fever greater than 100, other concerning symptoms. Coding Level of Care Code ED Supervisor [employer] for Chg Fwd Exam Comprehensive
[2019-06-16 03:06] LABS: Troponin 5 2HR 13.12 ng/mL (0-10); Troponin 5 2HR Delta 0.12 ABS# (0-10)
[2019-06-16] MEDS: oxyCODONE-APAP 5-325 mg Tablet 1 TAB PO (03:30)
[2019-06-16] MEDS: dexamethasone 10 mg/mL INJ IM (03:32)
== END 2019-06-16 04:57 | disposition home or self-care (01) ==
PROVIDERS: Emergency Provider Emergency Medicine; PCP Nurse Practitioner Family
DX: R07.89 Other chest pain (principal); Z87.891 Personal history of nicotine dependence
CPT/HCPCS: 12345; 71045; 80053; 81003; 83880; 84484; 85025; 85610; 85730; 86140; 93005; 96372; 96374; 96375; 99283; 99284; J1100; J2270; J2405

== ENCOUNTER 2019-06-25 06:00 | Outpatient (RCR) | payer MEDICARE, MEDICAID, SELFPAY | END 2019-07-24 23:00 | disposition home or self-care (01) | LOC: SPT 06:00 | PROVIDERS: PCP Nurse Practitioner Family; Referring Provider Nurse Practitioner Family; Visit Provider Nurse Practitioner Family | DX: I89.0 Lymphedema, not elsewhere classified (principal); R29.6 Repeated falls; R60.9 Edema, unspecified | CPT/HCPCS: 97140; 97162 ==

== ENCOUNTER 2019-06-28 16:58 | Emergency (ER) | payer MEDICARE, MEDICAID, SELFPAY ==
--- NOTE | 2019-06-28 17:02 | XRR_ITS ---
PROCEDURE INFORMATION: Exam: XR Chest, 1 View Exam date and time: 06/28/2019 6:25 PM Age: 53 years old Clinical indication: Chest pain TECHNIQUE: Imaging protocol: XR of the chest Views: 1 view. COMPARISON: CR XR chest 1V portable [id number] 06/15/2019 10:17 PM FINDINGS: Lungs: Mild basilar atelectasis. The lungs are otherwise clear. Pleural space: Unremarkable. No pleural effusion. No pneumothorax. Heart/Mediastinum: Unremarkable. No cardiomegaly. Bones/joints: Unremarkable. XR/XR chest 1V portable [id number] IMPRESSION: No acute findings.
--- NOTE | 2019-06-28 17:02 | ECG_ITS ---
Measurements Intervals [place] Rate: 75 P: 55 [place]: 136 QRS: 33 QRSD: 97 T: 46 QT: 375 QTc: 421 SINUS RHYTHM Compared to ECG 06/16/2019 00:16:08 No significant changes Electronically Signed On 06-28-2019 18:00:00 CDT by Amanda Bourgeois M.D. [email or web address]
[2019-06-28 17:03] VITALS: BP 166/80; PULSE 84; RESP 20; TEMP 36.6; O2SAT 96; BMI 43.8
[2019-06-28 17:33] LABS: Basophils # 0.1 10^3/uL (0.0-0.1); Basophils % 0.5 %; Eosinophils # 0.1 10^3/uL (0.0-0.8); Eosinophils % 0.7 %; Hematocrit 34.1 % (37.0-47.0); Hemoglobin 10.5 g/dL (11.5-15.3); Lymphocytes # 2.2 10^3/uL (0.8-4.8); Lymphocytes % 17.7 %; Mean Corpuscular HGB Conc 30.8 g/dL (30.0-36.0); Mean Corpuscular Hemoglobin 27.6 pg (28.0-34.0); Mean Corpuscular Volume 89.7 fL (81-99); Mean Platelet Volume 9.6 fL (7.4-10.4); Monocytes # 1.1 10^3/uL (0.2-0.9); Monocytes % 8.9 %; Neutrophils # 8.9 10^3/uL (1.8-7.7); Neutrophils % 71.7 %; Nucleated Red Blood Cells % 0 %; Platelet Count 385 10^3/cmm (130-400); Red Cell Distribution Width 14.6 % (12.1-15.1); White Blood Count 12.3 10^3/uL (4.0-10.0)
--- NOTE | 2019-06-28 17:38 | PC.NURSE ---
UA collected and sent to lab
[2019-06-28 17:52] LABS: Alanine Aminotransferase 9 U/L (0-33); Albumin Level 4.3 g/dL (3.5-5.2); Alkaline Phosphatase 98 IU/L (35-105); Anion Gap 16.9 (5-19); Aspartate Amino Transferase 16 U/L (0-32); Blood Urea Nitrogen 12 mg/dL (6-20); Calcium 8.8 mg/dL (8.5-10.5); Carbon Dioxide 28 mmol/L (22-29); Chloride 97 mmol/L (98-107); Globulin 2.4 g/dL (1.3-4.6); Glomerular Filtration Rate 51.8 mL/min (90-130); Glucose 135 mg/dL (65-115); Osmolality Calculated 284 mOsm/kg (285-295); Potassium 3.9 mmol/L (3.5-5.1); Sodium 138 mmol/L (136-145); Total Bilirubin 0.8 mg/dL (0.15-1.2); Total Protein 6.7 g/dL (6.6-8.7)
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
[2019-06-28 17:56] LABS: Troponin(5th) Baseline 16 ng/mL (0-10)
[2019-06-28 19:26] LABS: Troponin 5 2HR 17.54 ng/mL (0-10); Troponin 5 2HR Delta 1.54 ABS# (0-10)
[2019-06-28 20:34] VITALS: BP 126/77; PULSE 80; RESP 18; O2SAT 96
--- NOTE | 2019-06-28 20:39 | PC.NURSE ---
RN agreed and reviews with assessment
--- NOTE | 2019-06-28 23:02 | ECG_ITS ---
Measurements Intervals [place] Rate: 77 P: 57 [place]: 125 QRS: 47 QRSD: 105 T: 53 QT: 388 QTc: 441 SINUS RHYTHM POSSIBLE RIGHT VENTRICULAR CONDUCTION DELAY [RSR (QR) IN V1/V2] Compared to ECG 06/28/2019 17:48:06 No significant changes Electronically Signed On 06-30-2019 11:11:49 CDT by Sameer Dunbar MD [email or web address]
== END 2019-06-28 20:34 | disposition home or self-care (01) ==
PROVIDERS: Physician Assistant; Emergency Provider Emergency Medicine; PCP Nurse Practitioner Family
DX: R06.02 Shortness of breath (principal); Z79.82 Long term (current) use of aspirin; J44.9 Chronic obstructive pulmonary disease, unspecified; Z87.891 Personal history of nicotine dependence; K21.9 Gastro-esophageal reflux disease without esophagitis; E03.9 Hypothyroidism, unspecified
CPT/HCPCS: 12345; 36415; 71045; 80053; 84484; 85025; 93005; 93010; 99282; 99283

== ENCOUNTER 2019-07-02 11:47 | Emergency (ER) | payer MEDICARE, MEDICAID, SELFPAY ==
[2019-07-02 11:50] VITALS: BP 131/66; PULSE 82; RESP 16; TEMP 37; O2SAT 98; BMI 42.5
--- NOTE | 2019-07-02 11:51 | W.ED.NAVMDI ---
HPI - Nausea/Vomiting/Diarrhea General: Chief complaint: Abdominal Pain Stated complaint: NAUSEA/ FEELING FAINT Time Seen by Provider: 07/02/19 11:47 Source: patient and EMS Mode of arrival: EMS Limitations: no limitations History of Present Illness: HPI Narrative: 53-year-old female who is well-known to the ER states she has had nausea and vomiting since Monday. She states she has had abdominal cramping. Patient denies any worsening or improving factors. She denies any fevers. MD elicited complaint: nausea and vomiting Onset (ago): day(s) Associated nausea: Yes Associated abdominal pain: Yes Location of pain: Diffuse Pain consistency: constant Severity: mild Quality: cramping Exacerbating factors: none Relieving factors: none Associated symtoms: Reports nausea; Denies chest pain, dysuria or headache(s) Review of Systems Const: Denies: fever(s), chills, body aches or change in appetite Eyes: Denies: blurry vision or eye discomfort ENMT: Denies: throat pain or dental pain Card: Denies: chest pain Resp: Denies: dyspnea GI: Reports: abdominal pain, nausea and vomiting : Denies: dysuria Musc: Denies: neck pain or back pain Skin/Breast: Denies: rash Neuro: Denies: headache(s) Psych: Denies: depression Peter/Lymph: Denies: easy bruising All/Imm: Denies: urticaria PFSH ED PFSH: Medical History COPD (chronic obstructive pulmonary disease) GERD (gastroesophageal reflux disease) Hypothyroidism (acquired) Seizure disorder Surgical History H/O esophagogastroduodenoscopy 03/19/2019: Normal H/O thyroidectomy History of carpal tunnel surgery History of colonoscopy 03/19/2019: Normal repeat in 10 years Hx of section Social History Smoking and tobacco status: never smoked Quit status (tobacco): has quit using tobacco Year quit tobacco: 2019 - 1-5 ciggs/day Alcohol intake: never Lives independently: Yes Household members: none Housing: Apartment Current occupational status: disabled History of recent travel: No Current gender identity: Female Physical Exam Const: COMMON NORMALS: no acute distress, patient oriented x3 and healthy appearing HENMT: COMMON NORMALS: normocephalic and atraumatic HEAD & SCALP: normocephalic and atraumatic Eye: COMMON NORMALS: Equal, round and reactive pupils present and EOMs intact bilaterally PUPIL: Yes Equal, round and reactive pupils present Neck/C-Spine: COMMON NORMALS: full ROM and supple Chest: COMMONS NORMALS: normal inspection of the chest and normal palpation of entire chest wall Resp: COMMON NORMALS: normal respiratory effort, No retractions, No use of accessory muscles and clear to auscultation bilaterally AUSCULTATION: clear to auscultation bilaterally Cardio: COMMON NORMALS: regular rate, regular rhythm and No murmurs present (Cardio) RATE: regular rate RHYTHM: regular rhythm GI: COMMON NORMALS: Normal to inspection, nondistended, normoactive bowel sounds present, Soft to palpation, non-tender and no masses PALPATION: Yes Soft to palpation Extremity: COMMON NORMALS: normal to inspection and full ROM Neuro: COMMON NORMALS: patient oriented x3, moves all extremities and no focal motor deficits Psych: COMMON NORMALS: mental status grossly normal, Normal thought process present and cooperative THOUGHT PROCESS: Normal thought process present Skin: COMMON NORMALS: no rashes or lesions noted and no wounds GENERAL SKIN EXAM: no rashes or lesions noted Course Vital Signs: Vital signs: Vital Signs Temperature 98.6 F 07/02/19 11:50 Pulse Rate 70 07/02/19 12:27 Respiratory Rate 16 07/02/19 12:27 Blood Pressure 131/66 07/02/19 12:27 Pulse Oximetry 100 07/02/19 12:27 MDM - Nausea/Vomiting/Diarrhea MDM Narrative: Medical decision making narrative: Crystal presents here with nausea is improved here with Reglan. Patient's lab work here is normal and abdominal exam is benign. Patient has no signs of acute surgical cause for nausea. Will prescribe her Reglan for home and she is to follow-up with her primary care doctor. Lab Data: Labs: Lab Results 07/02/19 07/02/19 Range/Units 12:08 12:08 WBC 9.0 (4.0-10.0) 10^3/ uL RBC 3.59 L (4.1-5.3) 10^6/u L Hgb 9.7 L (11.5-15.3) g/dL Hct 32.7 L (37.0-47.0) % MCV 91.1 (81-99) fL MCH 27.0 L (28.0-34.0) pg MCHC 29.7 L (30.0-36.0) g/dL RDW 14.7 (12.1-15.1) % Plt Count 319 (130-400) 10^3/c mm MPV 9.7 (7.4-10.4) fL Neut % (Auto) 64.2 % Lymph % (Auto) 23.5 % [place] % (Auto) 9.2 % Eos % (Auto) 2.0 % Baso % (Auto) 0.8 % Neut # (Auto) 5.8 (1.8-7.7) 10^3/u L Lymph # (Auto) 2.1 (0.8-4.8) 10^3/u L [place] # (Auto) 0.8 (0.2-0.9) 10^3/u L Eos # (Auto) 0.2 (0.0-0.8) 10^3/u L Baso # (Auto) 0.1 (0.0-0.1) 10^3/u L Nucleated RBC % (a uto) 0 % Nucleated RBCs # 0.0 /100WBC Sodium 138 (136-145) mmol/L Potassium 4.1 (3.5-5.1) mmol/L Chloride 101 (98-107) mmol/L Carbon Dioxide 26 (22-29) mmol/L Anion Gap 15.1 (5-19) BUN 8 (6-20) mg/dL Creatinine 0.9 (0.5-0.9) mg/dL GFR Calculation 65.2 L (90-130) mL/min Glucose 131 H (65-115) mg/dL Calculated Osmolal ity 284 L (285-295) mOsm/k g Calcium 8.4 L (8.5-10.5) mg/dL Total Bilirubin 0.9 (0.15-1.2) mg/dL AST 17 (0-32) U/L ALT 7 (0-33) U/L Alkaline Phosphata se 87 (35-105) IU/L Total Protein 6.8 (6.6-8.7) g/dL Albumin 3.7 (3.5-5.2) g/dL Globulin 3.1 (1.3-4.6) g/dL Lipase 21 (13-60) U/L Discharge Plan Discharge Patient Disposition: Home, Self-Care Clinical Impression: Abdominal pain Qualifiers: Abdominal location: generalized Qualified Code(s): R10.84 - Generalized abdominal pain Vomiting Qualifiers: Vomiting type: unspecified Vomiting Intractability: non-intractable Nausea presence: with nausea Qualified Code(s): R11.2 - Nausea with vomiting, unspecified Condition: Stable Prescriptions: New Reglan 10 mg tablet 10 mg PO Q6H PRN (Reason: nausea and vomiting) Qty: 20 RF: 0 No Action montelukast [Singulair] 10 mg tablet 10 mg PO DAILY RF: 0 levothyroxine 88 mcg capsule 88 mcg PO DAILY RF: 0 levetiracetam 250 mg tablet 250 mg PO BID RF: 0 aspirin [Adult Aspirin Regimen] 81 mg tablet,delayed release (DR/EC) 81 mg PO DAILY RF: 0 bumetanide 2 mg tablet 2 mg PO DAILY RF: 0 pantoprazole [Protonix] 40 mg tablet,delayed release (DR/EC) 40 mg PO DAILY RF: 0 atorvastatin 20 mg tablet 20 mg PO BEDTIME RF: 0 albuterol sulfate [ProAir HFA] 90 mcg/actuation HFA aerosol inhaler 2 puff INHALATION Q4H PRN (Reason: Shortness Of Breath) RF: 0 cetirizine 10 mg capsule 10 mg PO QDAY RF: 0 Klor-Con 20 mEq Packet 20 meq PO BID RF: 0 Vitamin D3 25 mcg (1,000 unit) Tablet,Chewable 25 mcg PO DAILY RF: 0 azithromycin 250 mg tablet See Rx Instructions .ROUTE .COMPLEX Qty: 6 RF: 0 prednisone 20 mg tablet 40 mg PO DAILY Qty: 10 RF: 0 prednisone 10 mg tablet 10 mg PO DAILY Qty: 27 RF: 0 EC-Naprosyn 500 mg tablet,delayed release (DR/EC) 500 mg PO BID PRN (Reason: pain) Qty: 20 RF: 0 spironolactone 25 mg Tablet 25 mg PO DAILY RF: 0 diclofenac sodium 1 % Gel 2 - 4 g TOPICAL QID PRN (Reason: UNKNOWN) RF: 0 magnesium oxide 400 mg magnesium Tablet 400 mg PO DAILY RF: 0 isosorbide dinitrate 30 mg Tablet 15 mg PO Q12H RF: 0 bismuth subsalicylate [Pepto-Bismol] 262 mg/15 mL Suspension See Rx Instructions .ROUTE .COMPLEX RF: 0 metoprolol tartrate 50 mg Tablet 50 mg PO BID RF: 0 budesonide 0.5 mg/2 mL Suspension For Nebulization 0.5 mg INHALATION BID RF: 0 ipratropium bromide 0.02 % Solution See Rx Instructions .ROUTE .COMPLEX RF: 0 naproxen 500 mg Tablet 500 mg PO PRN RF: 0 guaifenesin [Mucinex] 600 mg Tablet Extended Release 12hr 1,200 mg PO BID RF: 0 Discharge Orders: Discharge Order (Routine); Ordered 07/02/19 Ordered By: Tenisha Casey Referrals: Mary Fiore FNP [Primary Care Provider] - 1-3 days Discharge Diet: Advance as tolerated Discharge Activity: Resume usual activity Patient Instructions: Abdominal Pain (ED) Coding Level of Care Code ED Outside Plant Field Engineer for Chg Fwd Exam Comprehensive
[2019-07-02] MEDS: sodium chloride 0.9% 1,000 ML 999 ML IV (12:09)
[2019-07-02] MEDS: metoclopramide 5 mg/mL SDV 2 mL IVP (12:09)
[2019-07-02] MEDS: diphenhydrAMINE 50 mg/mL SDV 1mL 25 MG IVP (12:09)
[2019-07-02 12:19] LABS: Basophils # 0.1 10^3/uL (0.0-0.1); Basophils % 0.8 %; Eosinophils # 0.2 10^3/uL (0.0-0.8); Hematocrit 32.7 % (37.0-47.0); Hemoglobin 9.7 g/dL (11.5-15.3); Lymphocytes # 2.1 10^3/uL (0.8-4.8); Lymphocytes % 23.5 %; Mean Corpuscular HGB Conc 29.7 g/dL (30.0-36.0); Mean Corpuscular Volume 91.1 fL (81-99); Mean Platelet Volume 9.7 fL (7.4-10.4); Monocytes # 0.8 10^3/uL (0.2-0.9); Monocytes % 9.2 %; Neutrophils # 5.8 10^3/uL (1.8-7.7); Neutrophils % 64.2 %; Nucleated Red Blood Cells % 0 %; Platelet Count 319 10^3/cmm (130-400); Red Blood Count 3.59 10^6/uL (4.1-5.3); Red Cell Distribution Width 14.7 % (12.1-15.1)
[2019-07-02 12:27] VITALS: BP 131/66; PULSE 70; RESP 16; O2SAT 100
[2019-07-02 12:43] LABS: Alanine Aminotransferase 7 U/L (0-33); Albumin Level 3.7 g/dL (3.5-5.2); Alkaline Phosphatase 87 IU/L (35-105); Anion Gap 15.1 (5-19); Aspartate Amino Transferase 17 U/L (0-32); Blood Urea Nitrogen 8 mg/dL (6-20); Calcium 8.4 mg/dL (8.5-10.5); Carbon Dioxide 26 mmol/L (22-29); Chloride 101 mmol/L (98-107); Globulin 3.1 g/dL (1.3-4.6); Glomerular Filtration Rate 65.2 mL/min (90-130); Glucose 131 mg/dL (65-115); Lipase 21 U/L (13-60); Osmolality Calculated 284 mOsm/kg (285-295); Potassium 4.1 mmol/L (3.5-5.1); Sodium 138 mmol/L (136-145); Total Bilirubin 0.9 mg/dL (0.15-1.2); Total Protein 6.8 g/dL (6.6-8.7)
[2019-07-02 14:23] VITALS: BP 136/75; PULSE 80; RESP 18; O2SAT 94
== END 2019-07-02 14:26 | disposition home or self-care (01) ==
PROVIDERS: Emergency Provider Emergency Medicine; PCP Nurse Practitioner Family
DX: R10.84 Generalized abdominal pain (principal); R11.2 Nausea with vomiting, unspecified; Z79.82 Long term (current) use of aspirin; J44.9 Chronic obstructive pulmonary disease, unspecified; Z87.891 Personal history of nicotine dependence
CPT/HCPCS: 12345; 36415; 80053; 83690; 85025; 96361; 96374; 96375; 99282; 99283; J1200; J2765; J7030

== ENCOUNTER 2019-07-08 06:00 | Outpatient (RCR) | payer MEDICARE, MEDICAID, SELFPAY | END 2019-08-06 23:59 | disposition home or self-care (01) | LOC: SPT 06:00 | PROVIDERS: PCP Nurse Practitioner Family; Visit Provider Nurse Practitioner Family | DX: I89.0 Lymphedema, not elsewhere classified (principal); R29.6 Repeated falls; R60.9 Edema, unspecified | CPT/HCPCS: 97140 ==

== ENCOUNTER → 2019-07-09 14:33 | Outpatient (BNVA) | payer MEDICARE, MEDICAID, SELFPAY | PROVIDERS: PCP Nurse Practitioner Family; Visit Provider Specialist | DX: G56.22 Lesion of ulnar nerve, left upper limb (principal); Z87.891 Personal history of nicotine dependence | CPT/HCPCS: 95908 ==

== ENCOUNTER 2019-07-18 19:21 | Emergency (ER) | payer MEDICARE, MEDICAID, SELFPAY ==
[2019-07-18 19:41] VITALS: BP 137/79; PULSE 63; RESP 14; TEMP 35.8; O2SAT 99; BMI 41.8
[2019-07-18 20:12] LABS: Basophils # 0.1 10^3/uL (0.0-0.1); Basophils % 0.8 %; Eosinophils # 0.2 10^3/uL (0.0-0.8); Eosinophils % 2.4 %; Hematocrit 35.9 % (37.0-47.0); Hemoglobin 10.7 g/dL (11.5-15.3); Lymphocytes % 26.5 %; Mean Corpuscular HGB Conc 29.8 g/dL (30.0-36.0); Mean Corpuscular Hemoglobin 26.6 pg (28.0-34.0); Mean Corpuscular Volume 89.1 fL (81-99); Mean Platelet Volume 9.6 fL (7.4-10.4); Monocytes # 0.8 10^3/uL (0.2-0.9); Monocytes % 10.4 %; Neutrophils # 4.5 10^3/uL (1.8-7.7); Neutrophils % 59.4 %; Nucleated Red Blood Cells % 0 %; Platelet Count 373 10^3/cmm (130-400); Red Blood Count 4.03 10^6/uL (4.1-5.3); Red Cell Distribution Width 14.6 % (12.1-15.1); White Blood Count 7.5 10^3/uL (4.0-10.0)
[2019-07-18 20:27] LABS: Alanine Aminotransferase 7 U/L (0-33); Albumin Level 4.4 g/dL (3.5-5.2); Alkaline Phosphatase 96 IU/L (35-105); Aspartate Amino Transferase 16 U/L (0-32); Blood Urea Nitrogen 21 mg/dL (6-20); Carbon Dioxide 27 mmol/L (22-29); Chloride 96 mmol/L (98-107); Glomerular Filtration Rate 57.8 mL/min (90-130); Glucose 107 mg/dL (65-115); Lipase 29 U/L (13-60); Magnesium 1.7 mg/dL (1.7-2.3); Osmolality Calculated 281 mOsm/kg (285-295); Sodium 137 mmol/L (136-145); Total Bilirubin 0.9 mg/dL (0.15-1.2); Total Protein 7.4 g/dL (6.6-8.7)
--- NOTE | 2019-07-18 22:11 | US_ITS ---
WS: [id number] RIGHT UPPER QUADRANT ULTRASOUND HISTORY: Pain COMPARISON: 03/01/2015 Liver: 17.2 cm in length. Normal size liver with mild coarsened echotexture. No bile duct dilatation or mass. Gallbladder: Prior cholecystectomy. CBD: 0.6 cm Pancreas: Normal size and echogenicity. Right kidney: 10.6 cm in length. Normal echogenicity with no mass or hydronephrosis. Aorta and IVC: Unremarkable. No ascites. US/US gall bladder [id number] IMPRESSION: 1. Status post cholecystectomy. 2. Normal common bile duct. 3. Mild hepatic steatosis.
--- NOTE | 2019-07-18 22:11 | ECG_ITS ---
Measurements Intervals [place] Rate: 72 P: 57 MA: 136 QRS: 48 QRSD: 106 T: 50 QT: 410 QTc: 449 SINUS RHYTHM Compared to ECG 06/28/2019 19:19:27 No significant changes Electronically Signed On 07-20-2019 14:50:26 CDT by Funmilayo De La Rosa M.D. [email or web address]
--- NOTE | 2019-07-18 22:14 | W.ED.ABDPA2 ---
HPI - Abdominal Pain General: Chief Complaint: Abdominal Pain Stated Complaint: n/v Time Seen by Provider: 07/18/19 21:55 History of Present Illness: HPI narrative: Crystal is a 53-year-old female who comes in complaining of epigastric pain. She states the pain is been constant for the past 5 days. She denies any nausea vomiting, diarrhea constipation, fevers or chills, dysuria or urinary frequency/urgency. She is unaware of anything that makes her symptoms better or worse. She has not had symptoms like this before. Patient denies any chest pain or shortness of breath. She does not believe her symptoms are made worse by food. She is not been around anyone ill she has not tried anything at home for this. She describes the pain as moderate. Associated Symptoms: Denies chills, coffee ground emesis, constipation, GI cramping, diarrhea, dysuria, fever(s), heartburn, hematochezia, hematuria, hematemesis, melena, nausea, syncope and vomiting Review of Systems Const: Denies: fever(s), chills, body aches, fatigue, malaise or diaphoresis Eyes: Denies: change in vision, blurry vision, blind spots or photophobia ENMT: Denies: throat pain, odynophagia, hoarseness, swelling of lips/tongue, ear or mastoid pain, ear discharge, change in hearing or nasal discharge Card: Denies: chest pain, palpitations, irregular heart rhythm, edema, lightheadedness, syncope, pre-syncope, dyspnea on exertion or orthopnea Resp: Denies: dyspnea, productive cough, non-productive cough, wheezing, hemoptysis or chest congestion GI: Reports: abdominal pain; Denies: nausea, vomiting, hematemesis, coffee ground emesis, heartburn, diarrhea, constipation, GI cramping, hematochezia or melena : Denies: flank pain, dysuria, urinary frequency, urinary urgency or hematuria Musc: Denies: neck pain, back pain, extremity pain, extremity swelling, joint pain, joint swelling, joint redness, joint warmth or joint stiffness Skin/Breast: Denies: rash, pruritus, erythema, skin tenderness or jaundice Neuro: Denies: headache(s), numbness in extremities, weakness in extremities, sensory changes, lack of coordination, difficulty walking, dizziness, vertigo, confusion or Slurred speech present Peter/Lymph: Denies: easy bruising, easy bleeding, petechiae, purpura or enlarged lymph nodes All/Imm: Denies: urticaria, throat swelling, tongue swelling, facial swelling or acute wheezing PFSH ED PFSH: Medical History COPD (chronic obstructive pulmonary disease) GERD (gastroesophageal reflux disease) Hypothyroidism (acquired) Seizure disorder Surgical History H/O esophagogastroduodenoscopy 03/19/2019: Normal H/O thyroidectomy History of carpal tunnel surgery History of colonoscopy 03/19/2019: Normal repeat in 10 years Hx of section Social History Smoking and tobacco status: former smoker Quit status (tobacco): has quit using tobacco Year quit tobacco: 2019 - 1-5 ciggs/day Alcohol intake: never Lives independently: Yes Household members: none Housing: Apartment Current occupational status: disabled History of recent travel: No Current gender identity: Female Physical Exam Const: COMMON NORMALS: no acute distress, patient oriented x3, no limitations, healthy appearing and well nourished GENERAL APPEARANCE: cooperative, well kempt and well developed HENMT: COMMON NORMALS: normocephalic, atraumatic, external ears normal, EAC's normal and Normal external nose present HEAD & SCALP: normal to inspection, normocephalic and atraumatic FACE & SINUS: normal facial exam and face symmetric NOSE: Normal external nose present and Normal nares present EXTERNAL EAR: Yes external ears normal EXTERNAL AUDITORY CANAL: EAC's normal MOUTH: Normal oral and palatal mucosa present, lip normal and tongue normal Eye: COMMON NORMALS: Equal, round and reactive pupils present and conjunctivae normal GENERAL EYE: appearance normal, both eyes and all related structures ALIGNMENT: Yes alignment normal PERIORBITAL: periorbital findings normal EYELID: eyelids normal CONJUNCTIVA: Yes conjunctivae normal SCLERA: sclerae normal PUPIL: Yes Equal, round and reactive pupils present Neck/C-Spine: COMMON NORMALS: full ROM, no lymphadenopathy, supple, no meningeal signs and no JVD GENERAL: Yes normal visual inspection and Yes trachea midline Chest: COMMONS NORMALS: normal inspection of the chest and normal palpation of entire chest wall Resp: COMMON NORMALS: normal respiratory effort, No retractions and No use of accessory muscles EFFORT & INSPECTION: Yes able to speak in complete sentences and Yes symmetric chest movement AUSCULTATION: no crackles, no rales, no rhonchi and no wheezes Cardio: COMMON NORMALS: no JVD, regular rate, regular rhythm, S1 normal heart sound present and S2 normal heart sound present RATE: regular rate RHYTHM: regular rhythm HEART SOUNDS: S1 normal heart sound present, S2 normal heart sound present, no click, no gallops, no murmurs, no rubs and abnormal split S2 GI: COMMON NORMALS: Soft to palpation and No hepatosplenomegaly present PALPATION: Yes Soft to palpation, No Tenderness to palpation present (GI), No Guarding due to palpation present (GI), No Rigid due to palpation, Yes No hepatosplenomegaly present, No Hernia present, No Palpable mass present and No Pulsatile mass present : COMMON NORMALS: Yes no CVA tenderness BLADDER/KIDNEY EXAM: Yes no CVA tenderness EXTERNAL FEMALE EXAM: No Hernia present Back/Pelvis: COMMON NORMALS: no CVA tenderness, thoracic and lumbar spine normal to inspection, no thoracic nor lumbar tenderness and thoraco-lumbar ROM normal Extremity: COMMON NORMALS: normal to inspection, full ROM, capillary refill normal, no joint enlargement, no clubbing, cyanosis or edema and no calf tenderness Neuro: COMMON NORMALS: patient oriented x3, CN's II-XII intact bilaterally, moves all extremities, no focal motor deficits and no sensory deficits noted MENINGEAL SIGNS: Yes no meningeal signs SPEECH: speech normal Psych: COMMON NORMALS: mental status grossly normal, Normal thought process present, cooperative, normal affect, speech normal and activity/motor behavior normal APPEARANCE: Yes well kempt SPEECH: Yes normal speech THOUGHT PROCESS: Normal thought process present Skin: COMMON NORMALS: no rashes or lesions noted, turgor normal, no jaundice, no petechiae and no mottling GENERAL SKIN EXAM: no rashes or lesions noted and turgor normal Course Vital Signs: Vital signs: Vital Signs Temperature 97.6 F 07/19/19 02:09 Pulse Rate 82 07/19/19 02:09 Respiratory Rate 18 07/19/19 02:09 Blood Pressure 105/61 07/19/19 02:09 Pulse Oximetry 97 07/19/19 02:09 MDM - Abdominal Pain MDM Narrative: Medical decision making narrative: Crystal's pain cannot be reproduced to palpation. She thought she still had her gallbladder but on ultrasound it shows that it was gone. There is no sign of other acute findings. She had no lower abdominal tenderness specifically she had no right lower quadrant abdominal tenderness. I recommended that we do a CT scan but she was tentative and did not want to do so. I even offered to do this without contrast to alleviate any anxiety but she still refused. She wanted to go home as she was feeling better. It seems as though most of her relief came with the GI cocktail. I will place her on Carafate and she understands though she will need to return if her symptoms change or worsen but at this time she is feeling much better and wants to go home. Patient was warned that she was also welcome to return. Lab Data: Attestation: I reviewed the patient's lab results. Labs: Lab Results 07/18/19 07/18/19 07/18/19 Range/Units 20:07 20:07 20:07 WBC 7.5 (4.0-10.0) 10^3/ uL RBC 4.03 L (4.1-5.3) 10^6/u L Hgb 10.7 L (11.5-15.3) g/dL Hct 35.9 L (37.0-47.0) % MCV 89.1 (81-99) fL MCH 26.6 L (28.0-34.0) pg MCHC 29.8 L (30.0-36.0) g/dL RDW 14.6 (12.1-15.1) % Plt Count 373 (130-400) 10^3/c mm MPV 9.6 (7.4-10.4) fL Neut % (Auto) 59.4 % Lymph % (Auto) 26.5 % [place] % (Auto) 10.4 % Eos % (Auto) 2.4 % Baso % (Auto) 0.8 % Neut # (Auto) 4.5 (1.8-7.7) 10^3/u L Lymph # (Auto) 2.0 (0.8-4.8) 10^3/u L [place] # (Auto) 0.8 (0.2-0.9) 10^3/u L Eos # (Auto) 0.2 (0.0-0.8) 10^3/u L Baso # (Auto) 0.1 (0.0-0.1) 10^3/u L Nucleated RBC % (a uto) 0 % Nucleated RBCs # 0.0 /100WBC Sodium 137 (136-145) mmol/L Potassium 4.0 (3.5-5.1) mmol/L Chloride 96 L (98-107) mmol/L Carbon Dioxide 27 (22-29) mmol/L Anion Gap 18.0 (5-19) BUN 21 H (6-20) mg/dL Creatinine 1.0 H (0.5-0.9) mg/dL GFR Calculation 57.8 L (90-130) mL/min Glucose 107 (65-115) mg/dL Calculated Osmolal ity 281 L (285-295) mOsm/k g Calcium 10.0 (8.5-10.5) mg/dL Magnesium 1.7 (1.7-2.3) mg/dL Total Bilirubin 0.9 (0.15-1.2) mg/dL AST 16 (0-32) U/L ALT 7 (0-33) U/L Alkaline Phosphata se 96 (35-105) IU/L Troponin T Baselin e (0-10) ng/L Troponin T 120 Min milind (0-10) ng/L Delta Troponin T Total Protein 7.4 (6.6-8.7) g/dL Albumin 4.4 (3.5-5.2) g/dL Globulin 3.0 (1.3-4.6) g/dL Lipase 29 (13-60) U/L Urine Color (Yellow) Urine Appearance (CLEAR) Urine pH (5-7) Ur Specific Gravit y (1.005-1.030) Urine Protein (Negative) Urine Glucose (UA) (Normal) Urine Ketones (Negative) Urine Blood (Negative) Urine Nitrate (Negative) Urine Bilirubin (NEGATIVE) Urine Urobilinogen (Negative) mg/dL Ur Leukocyte Jacqui ase (Negative) Urine RBC (0-2) /hpf Urine WBC (0-5) /hpf Ur Squamous Epith Cells (0-5) Urine Bacteria (NONE) H. pylori IgG Anti body Negative (Negative) 06/12/2607/19/19 07/19/19 Range/Units 20:07 00:08 00:30 WBC (4.0-10.0) 10^3/ uL RBC (4.1-5.3) 10^6/u L Hgb (11.5-15.3) g/dL Hct (37.0-47.0) % MCV (81-99) fL MCH (28.0-34.0) pg MCHC (30.0-36.0) g/dL RDW (12.1-15.1) % Plt Count (130-400) 10^3/c mm MPV (7.4-10.4) fL Neut % (Auto) % Lymph % (Auto) % [place] % (Auto) % Eos % (Auto) % Baso % (Auto) % Neut # (Auto) (1.8-7.7) 10^3/u L Lymph # (Auto) (0.8-4.8) 10^3/u L [place] # (Auto) (0.2-0.9) 10^3/u L Eos # (Auto) (0.0-0.8) 10^3/u L Baso # (Auto) (0.0-0.1) 10^3/u L Nucleated RBC % (a uto) % Nucleated RBCs # /100WBC Sodium (136-145) mmol/L Potassium (3.5-5.1) mmol/L Chloride (98-107) mmol/L Carbon Dioxide (22-29) mmol/L Anion Gap (5-19) BUN (6-20) mg/dL Creatinine (0.5-0.9) mg/dL GFR Calculation (90-130) mL/min Glucose (65-115) mg/dL Calculated Osmolal ity (285-295) mOsm/k g Calcium (8.5-10.5) mg/dL Magnesium (1.7-2.3) mg/dL Total Bilirubin (0.15-1.2) mg/dL AST (0-32) U/L ALT (0-33) U/L Alkaline Phosphata se (35-105) IU/L Troponin T Baselin e 13 H (0-10) ng/L Troponin T 120 Min milind 13.77 H (0-10) ng/L Delta Troponin T Scrap Piler Total Protein (6.6-8.7) g/dL Albumin (3.5-5.2) g/dL Globulin (1.3-4.6) g/dL Lipase (13-60) U/L Urine Color Yellow (Yellow) Urine Appearance Clear (CLEAR) Urine pH 5 (5-7) Ur Specific Gravit y 1.015 (1.005-1.030) Urine Protein Neg (Negative) Urine Glucose (UA) Norm (Normal) Urine Ketones Negative (Negative) Urine Blood Neg (Negative) Urine Nitrate Negative (Negative) Urine Bilirubin Neg (NEGATIVE) Urine Urobilinogen Norm (Negative) mg/dL Ur Leukocyte Jacqui ase Negative (Negative) Urine RBC Rare (0-2) /hpf Urine WBC Rare (0-5) /hpf Ur Squamous Epith Cells 0-4 H (0-5) Urine Bacteria 1+ H (NONE) H. pylori IgG Anti body (Negative) Imaging Data ^: US: My impression: Tech interpretation -no acute findings. See formal report. EKG Data ^: EKG 1: Attestation: I personally reviewed and interpreted this EKG as follows: EKG interpretation date: 07/19/19 EKG interpretation time: 23:04 Interpretation: Normal sinus rhythm at 72 beats a minute, no acute ST-T wave changes, normal intervals, no blocks, normal axis. Discharge Plan Discharge Patient Disposition: Home, Self-Care Clinical Impression: Abdominal pain Qualifiers: Abdominal location: generalized Qualified Code(s): R10.84 - Generalized abdominal pain Condition: Stable Prescriptions: New Carafate 1 gram tablet 1 gm PO TID 28 Days Qty: 84 RF: 0 No Action montelukast [Singulair] 10 mg tablet 10 mg PO DAILY RF: 0 levothyroxine 88 mcg capsule 88 mcg PO DAILY RF: 0 levetiracetam 250 mg tablet 250 mg PO BID RF: 0 aspirin [Adult Aspirin Regimen] 81 mg tablet,delayed release (DR/EC) 81 mg PO DAILY RF: 0 bumetanide 2 mg tablet 2 mg PO DAILY RF: 0 pantoprazole [Protonix] 40 mg tablet,delayed release (DR/EC) 40 mg PO DAILY RF: 0 atorvastatin 20 mg tablet 20 mg PO BEDTIME RF: 0 albuterol sulfate [ProAir HFA] 90 mcg/actuation HFA aerosol inhaler 2 puff INHALATION Q4H PRN (Reason: Shortness Of Breath) RF: 0 cetirizine 10 mg capsule 10 mg PO QDAY RF: 0 Klor-Con 20 mEq Packet 20 meq PO BID RF: 0 Vitamin D3 25 mcg (1,000 unit) Tablet,Chewable 25 mcg PO DAILY RF: 0 azithromycin 250 mg tablet See Rx Instructions .ROUTE .COMPLEX Qty: 6 RF: 0 prednisone 20 mg tablet 40 mg PO DAILY Qty: 10 RF: 0 prednisone 10 mg tablet 10 mg PO DAILY Qty: 27 RF: 0 EC-Naprosyn 500 mg tablet,delayed release (DR/EC) 500 mg PO BID PRN (Reason: pain) Qty: 20 RF: 0 spironolactone 25 mg Tablet 25 mg PO DAILY RF: 0 diclofenac sodium 1 % Gel 2 - 4 g TOPICAL QID PRN (Reason: UNKNOWN) RF: 0 magnesium oxide 400 mg magnesium Tablet 400 mg PO DAILY RF: 0 isosorbide dinitrate 30 mg Tablet 15 mg PO Q12H RF: 0 bismuth subsalicylate [Pepto-Bismol] 262 mg/15 mL Suspension See Rx Instructions .ROUTE .COMPLEX RF: 0 metoprolol tartrate 50 mg Tablet 50 mg PO BID RF: 0 budesonide 0.5 mg/2 mL Suspension For Nebulization 0.5 mg INHALATION BID RF: 0 ipratropium bromide 0.02 % Solution See Rx Instructions .ROUTE .COMPLEX RF: 0 naproxen 500 mg Tablet 500 mg PO PRN RF: 0 guaifenesin [Mucinex] 600 mg Tablet Extended Release 12hr 1,200 mg PO BID RF: 0 Reglan 10 mg tablet 10 mg PO Q6H PRN (Reason: nausea and vomiting) Qty: 20 RF: 0 Discharge Orders: Discharge Order (Routine); Ordered 07/19/19 Ordered By: Shanique Chavez Referrals: Mary Fiore FNP [Primary Care Provider] - 1-3 days Discharge Diet: Advance as tolerated Discharge Activity: Increase activity as tolerated Patient Instructions: Abdominal Pain (ED) Activity Restrictions/Additional Instructions: Please return to the ER immediately for any of the signs or symptoms listed on your discharge instruction sheets, worsening/changing of your symptoms, you are not getting better as quickly as expected, or for ANY other cause or concerns. You have been offered further evaluation and care here with a CT scan but have declined. If you change your mind or your symptoms worsen in any way you are more than welcome to return at any time for recheck and further evaluation and care. Discharge Date/Time: 07/19/19 02:11 Coding Level of Care Code ED Railroad Firer/Fireman for Dc Fwlinda Exam Comprehensive
[2019-07-18 22:34] LABS: Troponin(5th) Baseline 13 ng/L (0-10)
[2019-07-18 22:35] LABS: H. Pylori IgG Antibody Negative (Negative)
[2019-07-19] VITALS (10 sets, daily range): BP systolic 105–134; BP diastolic 54–84; PULSE 82; RESP 16–18; TEMP 36.4; O2SAT 97–98
[2019-07-19 00:45] LABS: Troponin 5 2HR 13.77 ng/L (0-10)
[2019-07-19] MEDS: lidocaine 2% viscous 15 ML, aluminum-mag hydrox-simethicon 30 ML, sucralfate oral liq 1 GM PO (00:48)
[2019-07-19 00:53] LABS: Bacteria Urine 1+; Bilirubin Urine Neg (NEGATIVE); Blood Urine Neg (Negative); Glucose Urine UA Norm (Normal); Ketones Urine Negative (Negative); Leukocyte Esterase Urine Negative (Negative); Nitrate Urine Negative (Negative); Protein Urine Neg (Negative); RBC Urine RARE /hpf (0-2); Specific Gravity, Urine 1.015 (1.005-1.030); Squamous Epithelial Cell Urine 0-4 (0-5); Urine Appearance Clear (CLEAR); Urine Color Yellow (Yellow); Urobilinogen Urine Norm (Negative); WBC Urine RARE /hpf (0-5); pH Urine 5 (5-7)
== END 2019-07-19 02:11 | disposition home or self-care (01) ==
PROVIDERS: Emergency Provider Emergency Medicine; PCP Nurse Practitioner Family
DX: R10.84 Generalized abdominal pain (principal); Z79.82 Long term (current) use of aspirin; J44.9 Chronic obstructive pulmonary disease, unspecified; Z87.891 Personal history of nicotine dependence
CPT/HCPCS: 12345; 76705; 80053; 81001; 83690; 83735; 84484; 85025; 86677; 93005; 99283; 99284

== ENCOUNTER 2019-07-25 14:53 | Outpatient (RCR) | payer MEDICARE, MEDICAID, SELFPAY | END 2019-08-06 23:59 | disposition home or self-care (01) | LOC: SOT 14:53 | PROVIDERS: PCP Nurse Practitioner Family; Visit Provider Nurse Practitioner Family | DX: G56.22 Lesion of ulnar nerve, left upper limb (principal); R20.2 Paresthesia of skin | CPT/HCPCS: 97110; 97140; 97167; 97530 ==

== ENCOUNTER 2019-07-27 18:57 | Emergency (ER) | payer MEDICARE, MEDICAID, SELFPAY ==
[2019-07-27 19:01] VITALS: BP 135/74; PULSE 83; RESP 18; TEMP 37; O2SAT 96; BMI 41.6
--- NOTE | 2019-07-27 19:02 | ECG_ITS ---
[facility] ED Test Date: 2019-07-27 Pat Name: Crystal Pierre Department: Room: Gender: Female Driller Operator: : 1965 Requested By: Alex Vieira Order Number: [id number] Khanna MD: Amanda Bourgeois M.D. Measurements Intervals [place] Rate: 81 P: 51 [place]: 137 QRS: 29 QRSD: 109 T: 46 QT: 380 QTc: 443 Interpretive Statements SINUS RHYTHM POSSIBLE RIGHT VENTRICULAR CONDUCTION DELAY [RSR (QR) IN V1/V2] MODERATE ST DEPRESSION [0.05+ mV ST DEPRESSION] Compared to ECG 07/18/2019 23:04:01 ST (T wave) deviation now present Electronically Signed On 07-27-2019 22:44:06 CDT by Amanda Bourgeois M.D. [id number]
--- NOTE | 2019-07-27 19:02 | XRR_ITS ---
PROCEDURE INFORMATION: Exam: XR Chest, 1 View Exam date and time: 07/27/2019 7:04 PM Age: 53 years old Clinical indication: Chest pain; Additional info: Cp TECHNIQUE: Imaging protocol: XR of the chest Views: 1 view. 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 The vascularity is within normal limits. No consolidation. Pleural space: Unremarkable. No pleural effusion. No pneumothorax. Heart/Mediastinum: Unchanged cardiomegaly. Bones/joints: No acute abnormality. XR/XR chest 1V portable [id number] IMPRESSION: No acute findings. Unchanged exam.
--- NOTE | 2019-07-27 19:11 | ED_ITS ---
HPI - Abdominal Pain General: Chief Complaint: Abdominal Pain Stated Complaint: CHEST PAIN Time Seen by Provider: 07/27/19 19:11 History of Present Illness: HPI narrative: Patient is a 53-year-old female who comes to the ED with chest pain and abdominal pain. Patient has a past medical history of GERD, hypercholesteremia and hypothyroid disease. Patient says abdominal pain started yesterday and is located in the epigastric region and has been constant. She rates the pain 8 out of 10. Patient also reports chest pain that started today. Chest pain started at rest and does not gotten better throughout the day. Patient also complains of some dizziness that started yesterday as well. Patient says she has been nauseous and has vomited multiple times since yesterday. Associated Symptoms: Reports nausea and vomiting; Denies chills, constipation, diarrhea, dysuria, fever(s), hematochezia and hematuria Review of Systems Const: Denies: fever(s), chills or fatigue Eyes: Denies: change in vision or eye discomfort ENMT: Denies: throat pain, odynophagia, nasal discharge or nasal congestion Card: Reports: chest pain; Denies: palpitations, edema, swelling of feet/ankles, dyspnea on exertion or orthopnea Resp: Denies: dyspnea, productive cough or non-productive cough GI: Reports: abdominal pain, nausea and vomiting; Denies: diarrhea, constipation or hematochezia : Denies: flank pain, dysuria or hematuria Musc: Denies: neck pain, back pain or extremity swelling Skin/Breast: Denies: rash or new lesions Neuro: Denies: headache(s), numbness in extremities or weakness in extremities PFS ED PFSH: Medical History COPD (chronic obstructive pulmonary disease) GERD (gastroesophageal reflux disease) Hypothyroidism (acquired) Seizure disorder Surgical History H/O esophagogastroduodenoscopy 03/19/2019: Normal H/O thyroidectomy History of carpal tunnel surgery History of colonoscopy 03/19/2019: Normal repeat in 10 years Hx of section Social History Smoking and tobacco status: former smoker Quit status (tobacco): has quit using tobacco Year quit tobacco: 2019 - 1-5 ciggs/day Alcohol intake: never Lives independently: Yes Household members: none Housing: Apartment Current occupational status: disabled History of recent travel: No Current gender identity: Female Physical Exam Const: COMMON NORMALS: no acute distress, patient oriented x3 and alert GENERAL APPEARANCE: cooperative, comfortable and disheveled NUTRITIONAL APPEARANCE: obese HENMT: COMMON NORMALS: normocephalic HEAD & SCALP: normocephalic MOUTH: Normal oral and palatal mucosa present THROAT: posterior oropharynx normal and uvula midline Eye: COMMON NORMALS: Equal, round and reactive pupils present PUPIL: Yes Equal, round and reactive pupils present Neck/C-Spine: COMMON NORMALS: supple GENERAL: Yes normal visual inspection Resp: COMMON NORMALS: normal respiratory effort, No retractions, No use of accessory muscles and clear to auscultation bilaterally EFFORT & INSPECTION: Yes able to speak in complete sentences, No tachypneic and No respiratory distress AUSCULTATION: clear to auscultation bilaterally Cardio: COMMON NORMALS: regular rate, regular rhythm, S1 normal heart sound present, S2 normal heart sound present, No gallops present (Cardio), No clicks present (Cardio), No murmurs present (Cardio) and Peripheral pulses 2+ throughout RATE: regular rate RHYTHM: regular rhythm HEART SOUNDS: S1 normal heart sound present and S2 normal heart sound present PERIPHERAL PULSES: Peripheral pulses 2+ throughout GI: COMMON NORMALS: Normal to inspection, nondistended, normoactive bowel sounds present, Soft to palpation and no masses INSPECTION: Yes central obesity PALPATION: Yes Soft to palpation and Yes Tenderness to palpation present (GI) Details: other (Mild tenderness in epigastric region.) : COMMON NORMALS: Yes no CVA tenderness BLADDER/KIDNEY EXAM: Yes no CVA tenderness Back/Pelvis: COMMON NORMALS: no CVA tenderness Extremity: COMMON NORMALS: normal to inspection and no pedal edema Neuro: COMMON NORMALS: patient oriented x3 SENSORIUM/ORIENTATION: Yes alert Skin: COMMON NORMALS: no rashes or lesions noted GENERAL SKIN EXAM: no rashes or lesions noted and dry skin Course Vital Signs: Vital signs: Vital Signs Temperature 98.6 F 07/27/19 19:01 Pulse Rate 79 07/28/19 00:10 Respiratory Rate 16 07/28/19 00:10 Blood Pressure 116/60 07/28/19 00:10 Pulse Oximetry 96 07/28/19 00:10 MDM - Abdominal Pain MDM Narrative: Medical decision making narrative: Patient is a 53-year-old female comes to the ED with epigastric pain. She has been seen here multiple times in the past for same complaint. EKG showed normal sinus rhythm and no ST segment elevation or depression. Troponins were negative. Chest x-ray showed no acute findings. Hemoglobin 9.9, her average hemoglobin level since 07 of may has been 10.2. Patient's symptoms improved after GI cocktail was given. She was diagnosed with GERD and told to continue taking her previously prescribed Carafate for epigastric pain. Patient understood and agreed with plan. Lab Data: Attestation: I reviewed the patient's lab results. Labs: Lab Results 07/27/19 07/27/19 07/27/19 Range/Units 19:26 19:26 19:26 WBC 8.3 (4.0-10.0) 10^3/ uL RBC 3.83 L (4.1-5.3) 10^6/u L Hgb 9.9 L (11.5-15.3) g/dL Hct 34.0 L (37.0-47.0) % MCV 88.8 (81-99) fL MCH 25.8 L (28.0-34.0) pg MCHC 29.1 L (30.0-36.0) g/dL RDW 14.8 (12.1-15.1) % Plt Count 342 (130-400) 10^3/c mm MPV 9.6 (7.4-10.4) fL Neut % (Auto) 62.4 % Lymph % (Auto) 25.9 % [place] % (Auto) 9.0 % Eos % (Auto) 1.7 % Baso % (Auto) 0.6 % Neut # (Auto) 5.2 (1.8-7.7) 10^3/u L Lymph # (Auto) 2.2 (0.8-4.8) 10^3/u L [place] # (Auto) 0.8 (0.2-0.9) 10^3/u L Eos # (Auto) 0.1 (0.0-0.8) 10^3/u L Baso # (Auto) 0.1 (0.0-0.1) 10^3/u L Nucleated RBC % (a uto) 0 % Nucleated RBCs # 0.0 /100WBC Sodium 138 (136-145) mmol/L Potassium 3.3 L (3.5-5.1) mmol/L Chloride 96 L (98-107) mmol/L Carbon Dioxide 29 (22-29) mmol/L Anion Gap 16.3 (5-19) BUN 12 (6-20) mg/dL Creatinine 1.0 H (0.5-0.9) mg/dL GFR Calculation 57.8 L (90-130) mL/min Glucose 134 H (65-115) mg/dL Calculated Osmolal ity 284 L (285-295) mOsm/k g Calcium 9.3 (8.5-10.5) mg/dL Magnesium 1.6 L (1.7-2.3) mg/dL Total Bilirubin 1.4 H (0.15-1.2) mg/dL AST 17 (0-32) U/L ALT 7 (0-33) U/L Alkaline Phosphata se 89 (35-105) IU/L Troponin T Baselin e 18 H (0-10) ng/L Troponin T 120 Min [place] (0-10) ng/L Delta Troponin T (0-10) ABS# Total Protein 7.4 (6.6-8.7) g/dL Albumin 4.0 (3.5-5.2) g/dL Globulin 3.4 (1.3-4.6) g/dL Lipase 22 (13-60) U/L Urine Color (Yellow) Urine Appearance (CLEAR) Urine pH (5-7) Ur Specific Gravit y (1.005-1.030) Urine Protein (Negative) Urine Glucose (UA) (Normal) Urine Ketones (Negative) Urine Blood (Negative) Urine Nitrate (Negative) Urine Bilirubin (NEGATIVE) Urine Urobilinogen (Negative) mg/dL Ur Leukocyte Jacqui ase (Negative) Urine RBC (0-2) /hpf Urine WBC (0-5) /hpf Ur Squamous Epith Cells (0-5) Urine Bacteria (NONE) Urine Mucus 07/27/19 07/27/19 Range/Units 21:24 22:21 WBC (4.0-10.0) 10^3/ uL RBC (4.1-5.3) 10^6/u L Hgb (11.5-15.3) g/dL Hct (37.0-47.0) % MCV (81-99) fL MCH (28.0-34.0) pg MCHC (30.0-36.0) g/dL RDW (12.1-15.1) % Plt Count (130-400) 10^3/c mm MPV (7.4-10.4) fL Neut % (Auto) % Lymph % (Auto) % [place] % (Auto) % Eos % (Auto) % Baso % (Auto) % Neut # (Auto) (1.8-7.7) 10^3/u L Lymph # (Auto) (0.8-4.8) 10^3/u L [place] # (Auto) (0.2-0.9) 10^3/u L Eos # (Auto) (0.0-0.8) 10^3/u L Baso # (Auto) (0.0-0.1) 10^3/u L Nucleated RBC % (a uto) % Nucleated RBCs # /100WBC Sodium (136-145) mmol/L Potassium (3.5-5.1) mmol/L Chloride (98-107) mmol/L Carbon Dioxide (22-29) mmol/L Anion Gap (5-19) BUN (6-20) mg/dL Creatinine (0.5-0.9) mg/dL GFR Calculation (90-130) mL/min Glucose (65-115) mg/dL Calculated Osmolal ity (285-295) mOsm/k g Calcium (8.5-10.5) mg/dL Magnesium (1.7-2.3) mg/dL Total Bilirubin (0.15-1.2) mg/dL AST (0-32) U/L ALT (0-33) U/L Alkaline Phosphata se (35-105) IU/L Troponin T Baselin e (0-10) ng/L Troponin T 120 Min [place] 16.64 H (0-10) ng/L Delta Troponin T -1.36 L (0-10) ABS# Total Protein (6.6-8.7) g/dL Albumin (3.5-5.2) g/dL Globulin (1.3-4.6) g/dL Lipase (13-60) U/L Urine Color Yellow (Yellow) Urine Appearance Clear (CLEAR) Urine pH 5 (5-7) Ur Specific Gravit y 1.015 (1.005-1.030) Urine Protein Neg (Negative) Urine Glucose (UA) Norm (Normal) Urine Ketones Negative (Negative) Urine Blood Trace H (Negative) Urine Nitrate Negative (Negative) Urine Bilirubin Neg (NEGATIVE) Urine Urobilinogen Norm (Negative) mg/dL Ur Leukocyte Jacqui ase Negative (Negative) Urine RBC 0-4 H (0-2) /hpf Urine WBC 0-4 H (0-5) /hpf Ur Squamous Epith Cells 5-10 H (0-5) Urine Bacteria Trace (NONE) Urine Mucus Trace Imaging Data ^: CXR: Attestation: I personally reviewed and interpreted this imaging study as follows: My impression: No acute findings seen. Pending final radiology report. EKG Data ^: EKG 1: Attestation: I personally reviewed and interpreted this EKG as follows: EKG interpretation date: 07/27/19 Interpretation: Normal sinus rhythm, beats per minute, no ST segment elevation or depression seen. P waves present. EKG 2: Attestation: I personally reviewed and interpreted this EKG as follows: EKG interpretation date: 07/27/19 Interpretation: Sinus rhythm, 77 bpm, no ST segment elevation or depression seen. P waves present Discharge Plan Discharge Patient Disposition: Home, Self-Care Clinical Impression: GERD (gastroesophageal reflux disease) Qualifiers: Esophagitis presence: esophagitis presence not specified Qualified Code(s): K21.9 - Gastro-esophageal reflux disease without esophagitis Condition: Stable Prescriptions: No Action montelukast [Singulair] 10 mg tablet 10 mg PO DAILY RF: 0 levothyroxine 88 mcg capsule 88 mcg PO DAILY RF: 0 levetiracetam 250 mg tablet 250 mg PO BID RF: 0 aspirin [Adult Aspirin Regimen] 81 mg tablet,delayed release (DR/EC) 81 mg PO DAILY RF: 0 bumetanide 2 mg tablet 2 mg PO DAILY RF: 0 pantoprazole [Protonix] 40 mg tablet,delayed release (DR/EC) 40 mg PO DAILY RF: 0 atorvastatin 20 mg tablet 20 mg PO BEDTIME RF: 0 albuterol sulfate [ProAir HFA] 90 mcg/actuation HFA aerosol inhaler 2 puff INHALATION Q4H PRN (Reason: Shortness Of Breath) RF: 0 cetirizine 10 mg capsule 10 mg PO QDAY RF: 0 Klor-Con 20 mEq Packet 20 meq PO BID RF: 0 Vitamin D3 25 mcg (1,000 unit) Tablet,Chewable 25 mcg PO DAILY RF: 0 azithromycin 250 mg tablet See Rx Instructions .ROUTE .COMPLEX Qty: 6 RF: 0 prednisone 20 mg tablet 40 mg PO DAILY Qty: 10 RF: 0 prednisone 10 mg tablet 10 mg PO DAILY Qty: 27 RF: 0 EC-Naprosyn 500 mg tablet,delayed release (DR/EC) 500 mg PO BID PRN (Reason: pain) Qty: 20 RF: 0 Carafate 1 gram tablet 1 gm PO TID 28 Days Qty: 84 RF: 0 spironolactone 25 mg Tablet 25 mg PO DAILY RF: 0 diclofenac sodium 1 % Gel 2 - 4 g TOPICAL QID PRN (Reason: UNKNOWN) RF: 0 magnesium oxide 400 mg magnesium Tablet 400 mg PO DAILY RF: 0 isosorbide dinitrate 30 mg Tablet 15 mg PO Q12H RF: 0 bismuth subsalicylate [Pepto-Bismol] 262 mg/15 mL Suspension See Rx Instructions .ROUTE .COMPLEX RF: 0 metoprolol tartrate 50 mg Tablet 50 mg PO BID RF: 0 budesonide 0.5 mg/2 mL Suspension For Nebulization 0.5 mg INHALATION BID RF: 0 ipratropium bromide 0.02 % Solution See Rx Instructions .ROUTE .COMPLEX RF: 0 naproxen 500 mg Tablet 500 mg PO PRN RF: 0 guaifenesin [Mucinex] 600 mg Tablet Extended Release 12hr 1,200 mg PO BID RF: 0 Reglan 10 mg tablet 10 mg PO Q6H PRN (Reason: nausea and vomiting) Qty: 20 RF: 0 Discharge Orders: Discharge Order (Routine); Ordered 07/27/19 Ordered By: Alex Vieira Referrals: Mary Fiore FNP [Primary Care Provider] - Discharge Diet: Regular Discharge Activity: Resume usual activity Patient Instructions: Gastroesophageal Reflux Disease (ED) Activity Restrictions/Additional Instructions: Go to your previously scheduled appointment with your PCP on Monday, July 28 for reevaluation. Make sure to discuss with about your epigastric pain. Continue taking your previously prescribed carafate to help with epigastric pain. Drink plenty of fluids and stay hydrated. You can return to the ED for reevaluation if you have worsening symptoms. 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
[2019-07-27 19:34] LABS: Basophils # 0.1 10^3/uL (0.0-0.1); Basophils % 0.6 %; Eosinophils # 0.1 10^3/uL (0.0-0.8); Eosinophils % 1.7 %; Hemoglobin 9.9 g/dL (11.5-15.3); Lymphocytes # 2.2 10^3/uL (0.8-4.8); Lymphocytes % 25.9 %; Mean Corpuscular HGB Conc 29.1 g/dL (30.0-36.0); Mean Corpuscular Hemoglobin 25.8 pg (28.0-34.0); Mean Corpuscular Volume 88.8 fL (81-99); Mean Platelet Volume 9.6 fL (7.4-10.4); Monocytes # 0.8 10^3/uL (0.2-0.9); Neutrophils # 5.2 10^3/uL (1.8-7.7); Neutrophils % 62.4 %; Nucleated Red Blood Cells % 0 %; Platelet Count 342 10^3/cmm (130-400); Red Blood Count 3.83 10^6/uL (4.1-5.3); Red Cell Distribution Width 14.8 % (12.1-15.1); White Blood Count 8.3 10^3/uL (4.0-10.0)
[2019-07-27] MEDS: ondansetron 2 mg/ML SDV 2 mL 4 MG IVP (19:38)
[2019-07-27 19:43] VITALS: BP 110/55; PULSE 83; RESP 18; O2SAT 96
[2019-07-27 19:46] LABS: Alanine Aminotransferase 7 U/L (0-33); Alkaline Phosphatase 89 IU/L (35-105); Anion Gap 16.3 (5-19); Aspartate Amino Transferase 17 U/L (0-32); Blood Urea Nitrogen 12 mg/dL (6-20); Calcium 9.3 mg/dL (8.5-10.5); Carbon Dioxide 29 mmol/L (22-29); Chloride 96 mmol/L (98-107); Globulin 3.4 g/dL (1.3-4.6); Glomerular Filtration Rate 57.8 mL/min (90-130); Glucose 134 mg/dL (65-115); Lipase 22 U/L (13-60); Magnesium 1.6 mg/dL (1.7-2.3); Osmolality Calculated 284 mOsm/kg (285-295); Potassium 3.3 mmol/L (3.5-5.1); Sodium 138 mmol/L (136-145); Total Bilirubin 1.4 mg/dL (0.15-1.2); Total Protein 7.4 g/dL (6.6-8.7)
[2019-07-27 19:47] LABS: Troponin(5th) Baseline 18 ng/L (0-10)
--- NOTE | 2019-07-27 21:02 | ECG_ITS ---
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 Measurements Intervals [place] Rate: 77 P: 56 FL: 116 QRS: 35 QRSD: 105 T: 45 QT: 403 QTc: 459 Interpretive Statements SINUS RHYTHM WITH SHORT FL INTERVAL POSSIBLE RIGHT VENTRICULAR CONDUCTION DELAY [RSR (QR) IN V1/V2] MODERATE ST DEPRESSION [0.05+ mV ST DEPRESSION] Compared to ECG 07/27/2019 19:15:08 Short [place] interval now present ST (T wave) deviation still present Electronically Signed On 07-27-2019 22:59:58 CDT by Amanda Bourgeois M.D. [id number]
[2019-07-27 21:49] LABS: Troponin 5 2HR 16.64 ng/L (0-10)
[2019-07-27 21:51] LABS: Troponin 5 2HR Delta -1.36 ABS# (0-10)
[2019-07-27 22:19] VITALS: BP 116/62; PULSE 79; RESP 17; O2SAT 98
[2019-07-27 22:44] LABS: Bilirubin Urine Neg (NEGATIVE); Blood Urine Trace (Negative); Glucose Urine UA Norm (Normal); Ketones Urine Negative (Negative); Leukocyte Esterase Urine Negative (Negative); Nitrate Urine Negative (Negative); Protein Urine Neg (Negative); Specific Gravity, Urine 1.015 (1.005-1.030); Urine Appearance Clear (CLEAR); Urine Color Yellow (Yellow); Urobilinogen Urine Norm (Negative); pH Urine 5 (5-7)
[2019-07-27 22:45] LABS: Bacteria Urine TRACE; RBC Urine 0-4 /hpf (0-2); WBC Urine 0-4 /hpf (0-5)
[2019-07-27 22:46] LABS: Add Urine Culture? No; Mucus Urine TRACE
[2019-07-27 23:16] VITALS: BP 99/60; PULSE 81; RESP 18; O2SAT 95
[2019-07-27] MEDS: lidocaine 2% viscous 15 ML, aluminum-mag hydrox-simethicon 30 ML, sucralfate oral liq 1 GM PO (23:16)
[2019-07-28 00:10] VITALS: BP 116/60; PULSE 79; RESP 16; O2SAT 96
--- NOTE | 2019-07-28 00:10 | PC.NURSE ---
Report given to EMS. EMS to transport pt. home
== END 2019-07-28 00:11 | disposition home or self-care (01) ==
PROVIDERS: Emergency Provider Physician Assistant; PCP Nurse Practitioner Family
DX: K21.9 Gastro-esophageal reflux disease without esophagitis (principal); Z79.82 Long term (current) use of aspirin; J44.9 Chronic obstructive pulmonary disease, unspecified; Z87.891 Personal history of nicotine dependence
CPT/HCPCS: 12345; 71045; 80053; 81001; 83690; 83735; 84484; 85025; 93005; 96361; 96374; 96375; 99284; J2405; J7030

== ENCOUNTER 2019-08-07 06:00 | Outpatient (RCR) | payer MEDICARE, MEDICAID, SELFPAY | END 2019-09-06 23:59 | disposition home or self-care (01) | LOC: SOT 06:00 | PROVIDERS: PCP Nurse Practitioner Family; Visit Provider Nurse Practitioner Family | DX: G56.22 Lesion of ulnar nerve, left upper limb (principal); R20.2 Paresthesia of skin | CPT/HCPCS: 97110; 97140; 97530 ==

== ENCOUNTER 2019-08-18 21:48 | Emergency (ER) | payer MEDICARE, MEDICAID, SELFPAY ==
--- NOTE | 2019-08-18 21:53 | ECG_ITS ---
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 Measurements Intervals [place] Rate: 67 P: 49 WV: 134 QRS: 41 QRSD: 109 T: 48 QT: 405 QTc: 430 Interpretive Statements SINUS RHYTHM POSSIBLE RIGHT VENTRICULAR CONDUCTION DELAY [RSR (QR) IN V1/V2] Compared to ECG 07/27/2019 22:15:42 Short [place] interval no longer present ST (T wave) deviation no longer present Electronically Signed On 08-19-2019 16:38:18 CDT by Enrique Haro M.D. [id number]
--- NOTE | 2019-08-18 21:53 | XR_ITS ---
WS: [id number] Portable AP upright chest, 08/18/2019 Clinical Data: chest pain Comparison: Portable chest, 07/27/2019. Findings: No nodules, masses or effusions are seen. The heart is normal. The pulmonary vascularity is not increased. No pneumonia or pneumothorax is seen. XR/XR chest 1V portable [id number] Impression: Negative chest.
[2019-08-18 21:54] VITALS: BP 167/94; PULSE 78; RESP 20; TEMP 36.7; O2SAT 100; BMI 43.8
--- NOTE | 2019-08-18 21:56 | ED_ITS ---
HPI - Chest Pain General: Chief Complaint: Chest Pain Stated Complaint: CHEST PAIN Time Seen by Provider: 08/18/19 21:53 Source: patient Mode of arrival: ambulatory Limitations: no limitations History of Present Illness: HPI narrative: Patient is a 53-year-old female who presents to ED today with a complaint of chest pain that began yesterday. Patient tells me when the pain first began it was intermittent but has now became fairly constant. Patient has been seen here several times over the past few months for chest pains. She does have a history of GERD however states the pain today feels different. 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 Tong but is unaware of when her last visit was. She is not complaining of any shortness of breath or difficulty breathing. She does have chronic lower extremity swelling. This does not seem to be worsening. Patient believes she had a stress test and/or echocardiogram last year. MD complaint: chest pain Onset (ago): day(s) (yesterday) Timing of current episode: episodic and constant Prior episodes: Yes Onset: during rest Pain location: substernal Pain radiation: none Relieving factors: nothing Exacerbating factors: nothing Associated symptoms: Reports leg edema (chronic ); Deny abdominal pain, dyspnea, fever(s), nausea, palpitations, syncope or vomiting Treatment prior to arrival: none Review of Systems Const: Denies: fever(s) or chills Eyes: Denies: change in vision or blurry vision Card: Reports: chest pain and swelling of feet/ankles; Denies: palpitations, irregular heart rhythm, edema, lightheadedness, syncope, pre-syncope, dyspnea on exertion, orthopnea, leg pain with exertion or acrocyanosis Resp: Denies: dyspnea, productive cough, non-productive cough, pain on inspiration, hemoptysis or chest congestion GI: Denies: abdominal pain, nausea, vomiting, heartburn or diarrhea : Denies: flank pain, difficulty voiding or dysuria Musc: Denies: neck pain, back pain or joint pain Skin/Breast: Denies: rash Neuro: Denies: headache(s), numbness in extremities, weakness in extremities or sensory changes PFS ED PFSH: Medical History (Updated 08/18/19 @ 23:08 by LILLIAN Madden) COPD (chronic obstructive pulmonary disease) GERD (gastroesophageal reflux disease) Hypothyroidism (acquired) Seizure disorder Surgical History H/O esophagogastroduodenoscopy 03/19/2019: Normal H/O thyroidectomy History of carpal tunnel surgery History of colonoscopy 03/19/2019: Normal repeat in 10 years Hx of section Social History Smoking and tobacco status: former smoker Quit status (tobacco): has quit using tobacco Year quit tobacco: 2018 1-5 ciggs/day Alcohol intake: never Lives independently: Yes Household members: none Housing: Apartment Current occupational status: disabled History of recent travel: No Current gender identity: Female Physical Exam Const: COMMON NORMALS: no acute distress, patient oriented x3, no limitations and alert NUTRITIONAL APPEARANCE: obese ORIENTATION/CONSCIOUSNESS: Yes oriented to person, Yes oriented to place and Yes oriented to time Chest: COMMONS NORMALS: normal inspection of the chest OTHER: pain with palpation substernal and L anterior chest Resp: COMMON NORMALS: normal respiratory effort and clear to auscultation bilaterally AUSCULTATION: clear to auscultation bilaterally Cardio: COMMON NORMALS: regular rate and regular rhythm RATE: regular rate RHYTHM: regular rhythm GI: COMMON NORMALS: Normal to inspection, nondistended, normoactive bowel sounds present, Soft to palpation, non-tender, No hepatosplenomegaly present and no masses PALPATION: Yes Soft to palpation and Yes No hepatosplenomegaly present Extremity: OTHER: bilateral LE venous stasis and chronic edema Neuro: COMMON NORMALS: patient oriented x3, moves all extremities, no focal motor deficits and no sensory deficits noted SENSORIUM/ORIENTATION: Yes alert, Yes oriented to person, Yes oriented to place and Yes oriented to time Course Vital Signs: Vital signs: Vital Signs Temperature 98.1 F 08/18/19 21:54 Pulse Rate 78 08/18/19 21:54 Respiratory Rate 20 H 08/18/19 21:54 Blood Pressure 167/94 08/18/19 21:54 Pulse Oximetry 100 08/18/19 21:54 MDM - Chest Pain MDM Narrative: Medical decision making narrative: Patient seems to have reproducible chest pain on her exam. Patient's initial troponin is 18. This is exactly the same as it was on 07/26. With her chest pain beginning yesterday, if this was a true ischemic event I would expect this to be elevated. Patient had a stress test on 01/2018 which was normal. EF at that time was 63%. I did speak to her about getting her set up with an outpatient stress test after today's visit however patient tells me that she had spoken to Dr. Adams who did not feel it was necessary. She has an appointment with PCP on 08/30. She can use this for follow-up and they can come up with a plan for outpatient evaluation if nee ded. Her CXR today showing no new changes. EKG w/o changes from previous. Return to ED precautions given. Lab Data: Labs: Lab Results 08/18/19 08/18/19 08/18/19 Range/Units 22:05 22:05 22:05 WBC 7.8 (4.0-10.0) 10^3/ uL RBC 3.94 L (4.1-5.3) 10^6/u L Hgb 10.2 L (11.5-15.3) g/dL Hct 34.8 L (37.0-47.0) % MCV 88.3 (81-99) fL MCH 25.9 L (28.0-34.0) pg MCHC 29.3 L (30.0-36.0) g/dL RDW 14.6 (12.1-15.1) % Plt Count 323 (130-400) 10^3/c mm MPV 10.0 (7.4-10.4) fL Neut % (Auto) 51.7 % Lymph % (Auto) 35.4 % [place] % (Auto) 9.5 % Eos % (Auto) 2.3 % Baso % (Auto) 0.8 % Neut # (Auto) 4.05 (1.8-7.7) 10^3/u L Lymph # (Auto) 2.8 (0.8-4.8) 10^3/u L [place] # (Auto) 0.7 (0.2-0.9) 10^3/u L Eos # (Auto) 0.2 (0.0-0.8) 10^3/u L Baso # (Auto) 0.1 (0.0-0.1) 10^3/u L Nucleated RBC % (a uto) 0 % Nucleated RBCs # 0.0 /100WBC Sodium 137 (136-145) mmol/L Potassium 3.2 L (3.5-5.1) mmol/L Chloride 96 L (98-107) mmol/L Carbon Dioxide 29 (22-29) mmol/L Anion Gap 15.2 (5-19) BUN 20 (6-20) mg/dL Creatinine 0.9 (0.5-0.9) mg/dL GFR Calculation 65.2 L (90-130) mL/min Glucose 106 (65-115) mg/dL Calculated Osmolal ity 281 L (285-295) mOsm/k g Calcium 9.3 (8.5-10.5) mg/dL Total Bilirubin 0.7 (0.15-1.2) mg/dL AST 12 (0-32) U/L ALT 7 (0-33) U/L Alkaline Phosphata se 81 (35-105) IU/L Troponin T Baselin e 18 H (0-10) ng/L Total Protein 7.3 (6.6-8.7) g/dL Albumin 4.0 (3.5-5.2) g/dL Globulin 3.3 (1.3-4.6) g/dL Imaging Data^: CXR: My impression: no acute changes from previous films EKG Data^: EKG 1: EKG interpretation date: 08/18/19 EKG interpretation time: 22:09 Interpretation: Sinus rhythm Rate [address] elevation or depression changes noted No changes when compared to EKGs performed on 07/27/2019, 07/18/2019 Discharge Plan Discharge Patient Disposition: Home, Self-Care Clinical Impression: Atypical chest pain Condition: Stable Prescriptions: No Action montelukast [Singulair] 10 mg tablet 10 mg PO DAILY RF: 0 levothyroxine 88 mcg capsule 88 mcg PO DAILY RF: 0 levetiracetam 250 mg tablet 250 mg PO BID RF: 0 aspirin [Adult Aspirin Regimen] 81 mg tablet,delayed release (DR/EC) 81 mg PO DAILY RF: 0 bumetanide 2 mg tablet 2 mg PO DAILY RF: 0 pantoprazole [Protonix] 40 mg tablet,delayed release (DR/EC) 40 mg PO DAILY RF: 0 atorvastatin 20 mg tablet 20 mg PO BEDTIME RF: 0 albuterol sulfate [ProAir HFA] 90 mcg/actuation HFA aerosol inhaler 2 puff INHALATION Q4H PRN (Reason: Shortness Of Breath) RF: 0 cetirizine 10 mg capsule 10 mg PO QDAY RF: 0 Klor-Con 20 mEq Packet 20 meq PO BID RF: 0 Vitamin D3 25 mcg (1,000 unit) Tablet,Chewable 25 mcg PO DAILY RF: 0 azithromycin 250 mg tablet See Rx Instructions .ROUTE .COMPLEX Qty: 6 RF: 0 prednisone 20 mg tablet 40 mg PO DAILY Qty: 10 RF: 0 prednisone 10 mg tablet 10 mg PO DAILY Qty: 27 RF: 0 EC-Naprosyn 500 mg tablet,delayed release (DR/EC) 500 mg PO BID PRN (Reason: pain) Qty: 20 RF: 0 spironolactone 25 mg Tablet 25 mg PO DAILY RF: 0 diclofenac sodium 1 % Gel 2 - 4 g TOPICAL QID PRN (Reason: UNKNOWN) RF: 0 magnesium oxide 400 mg magnesium Tablet 400 mg PO DAILY RF: 0 isosorbide dinitrate 30 mg Tablet 15 mg PO Q12H RF: 0 bismuth subsalicylate [Pepto-Bismol] 262 mg/15 mL Suspension See Rx Instructions .ROUTE .COMPLEX RF: 0 metoprolol tartrate 50 mg Tablet 50 mg PO BID RF: 0 budesonide 0.5 mg/2 mL Suspension For Nebulization 0.5 mg INHALATION BID RF: 0 ipratropium bromide 0.02 % Solution See Rx Instructions .ROUTE .COMPLEX RF: 0 naproxen 500 mg Tablet 500 mg PO PRN RF: 0 guaifenesin [Mucinex] 600 mg Tablet Extended Release 12hr 1,200 mg PO BID RF: 0 Reglan 10 mg tablet 10 mg PO Q6H PRN (Reason: nausea and vomiting) Qty: 20 RF: 0 Discharge Orders: Discharge Order (Routine); Ordered 08/18/19 Ordered By: Vickie Nelson Referrals: Mary Fiore FNP [Primary Care Provider] - Patient Instructions: Chest Pain - Noncardiac, Chest Pain (ED) Activity Restrictions/Additional Instructions: As discussed please follow-up with primary care on 08/30 your scheduled appointment. You may return to the emergency department for worsening chest pain, shortness of breath, difficulty breathing, fevers, passing out episodes, or any concerns you may have. 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
[2019-08-18 22:30] LABS: Basophils # 0.1 10^3/uL (0.0-0.1); Basophils % 0.8 %; Eosinophils # 0.2 10^3/uL (0.0-0.8); Eosinophils % 2.3 %; Hematocrit 34.8 % (37.0-47.0); Hemoglobin 10.2 g/dL (11.5-15.3); Lymphocytes # 2.8 10^3/uL (0.8-4.8); Lymphocytes % 35.4 %; Mean Corpuscular HGB Conc 29.3 g/dL (30.0-36.0); Mean Corpuscular Hemoglobin 25.9 pg (28.0-34.0); Mean Corpuscular Volume 88.3 fL (81-99); Monocytes # 0.7 10^3/uL (0.2-0.9); Monocytes % 9.5 %; Neutrophils # 4.05 10^3/uL (1.8-7.7); Neutrophils % 51.7 %; Nucleated Red Blood Cells % 0 %; Platelet Count 323 10^3/cmm (130-400); Red Blood Count 3.94 10^6/uL (4.1-5.3); Red Cell Distribution Width 14.6 % (12.1-15.1); White Blood Count 7.8 10^3/uL (4.0-10.0)
[2019-08-18 22:43] LABS: Alanine Aminotransferase 7 U/L (0-33); Alkaline Phosphatase 81 IU/L (35-105); Anion Gap 15.2 (5-19); Aspartate Amino Transferase 12 U/L (0-32); Blood Urea Nitrogen 20 mg/dL (6-20); Calcium 9.3 mg/dL (8.5-10.5); Carbon Dioxide 29 mmol/L (22-29); Chloride 96 mmol/L (98-107); Globulin 3.3 g/dL (1.3-4.6); Glomerular Filtration Rate 65.2 mL/min (90-130); Glucose 106 mg/dL (65-115); Osmolality Calculated 281 mOsm/kg (285-295); Potassium 3.2 mmol/L (3.5-5.1); Sodium 137 mmol/L (136-145); Total Bilirubin 0.7 mg/dL (0.15-1.2); Total Protein 7.3 g/dL (6.6-8.7)
[2019-08-18 22:44] LABS: Troponin(5th) Baseline 18 ng/L (0-10)
[2019-08-18] MEDS: lidocaine 2% viscous 15 ML, aluminum-mag hydrox-simethicon 30 ML, sucralfate oral liq 1 GM PO (22:58)
[2019-08-18 23:41] VITALS: BP 164/82; PULSE 65; RESP 20; O2SAT 100
== END 2019-08-18 23:42 | disposition home or self-care (01) ==
PROVIDERS: Emergency Provider Physician Assistant; PCP Nurse Practitioner Family
DX: R07.89 Other chest pain (principal); Z79.82 Long term (current) use of aspirin; J44.9 Chronic obstructive pulmonary disease, unspecified; Z87.891 Personal history of nicotine dependence
CPT/HCPCS: 12345; 71045; 80053; 84484; 85025; 93005; 99282; 99284

== ENCOUNTER 2019-09-11 12:51 | Outpatient (CLI) | payer MEDICARE, MEDICAID, SELFPAY ==
--- NOTE | 2019-09-11 12:45 | USCV_ITS ---
Crystal Pierre Age: 53 Gender: F : 1965 Exam Date: 09/11/2019 13:11 Ordering Phys: Lilliana Driver Technologist: Jennifer Duque [place] [facility] [place]: HISTORY: Very swollen legs PROCEDURES: The venous duplex Doppler examination of both lower extremities was performed in the standard fashion. The following venous structures were evaluated: common femoral vein, profunda vein, the greater saphenous vein, superficial femoral vein, and the popliteal vein and ssv FINDINGS: No DVT seen in any vessel examine. The only reflux noted is in the Rt GSV below the knee. CONCLUSIONS No evidence of DVT in the above-mentioned identifiable veins. Significant venous reflux of greater than 500 ms ( 1050 msec) was noted at the below-knee greater saphenous vein segment on the right side. The venous segment was 0.64 cm in diameter and 1.91 cm deep from the surface at this level. No significant venous reflux on the left side. The other venous dimensions, and depth from the surface are as mentioned above Dr Funmilayo De La Rosa MD [facility] (Electronically Signed) Final Date: 11 September 2019 18:49 S
--- NOTE | 2019-09-11 13:30 | USCV_ITS ---
Crystal Pierre Age: 53 Gender: F : 1965 Exam Date: 09/11/2019 13:45 Ordering Phys: Lilliana Driver Technologist: Jennifer Duque Exam Location: [facility] – [place] Indication: PT STATES KNOWN HEART FAILURE [place] SOB BP: / HR: 69 Rhythm: Sinus Technical Quality: Very technically difficult study MEASUREMENTS (Male / Female) Normal Values 2D ECHO LV Diastolic Diameter PLAX 4.4 cm 4.2 - 5.9 / 3.9 - 5.3 cm LV Systolic Diameter PLAX 3.7 cm LV Chamber Size 4.1 cm IVS Diastolic Thickness 0.9 cm 0.6 - 1.0 / 0.6 - 0.9 cm IVS Systolic Thickness 1.4 cm LVPW Diastolic Thickness 1.0 cm 0.6 - 1.0 / 0.6 - 0.9 cm LVPW Systolic Thickness 1.1 cm RV Chamber Size 2.5 cm LVOT Diameter 2.0 cm LV Ejection Fraction 2D Teich 35.2 % LV Ejection Fraction MOD 2C 57.5 % LV Ejection Fraction 2C AL 59.6 % LA Diameter 3.7 cm LA Width 3.0 cm LA Height 4.3 cm RA Width 2.7 cm RA Height 4.8 cm Aorta at Sinotubular Diameter 2.7 cm M-MODE LV Diastolic Diameter MM 4.8 cm 4.2 - 5.9 / 3.9 - 5.3 cm LV Systolic Diameter MM 3.0 cm LV Ejection Fraction MM Teich 69.1 % IVS Diastolic Thickness MM 1.1 cm 0.6 - 1.0 / 0.6 - 0.9 cm IVS Systolic Thickness MM 1.3 cm LVPW Diastolic Thickness MM 1.2 cm 0.6 - 1.0 / 0.6 - 0.9 cm LVPW Systolic Thickness MM 1.4 cm RV Diastolic Diameter MM 1.3 cm Aortic Annulus Diameter 3.0 cm LA Ao Ratio MM 1.3 MV E Point Septal Separation 0.4 cm DOPPLER AV Peak Velocity 223.0 cm/s LVOT Peak Velocity 128.0 cm/s AV Area Cont Eq vti 2.2 cm squared AV Area Cont Eq pk 1.9 cm squared MV Area PHT 3.3 cm squared Mitral E to A Ratio 0.9 MV E' Velocity 9.0 cm/s Mitral E to MV E' Ratio 9.0 Mitral E to LV E' Lateral Ratio 8.7 Mitral E to LV E' Septal Ratio 9.4 TR Peak Velocity 7.0 cm/s TR Peak Gradient 0.0 mmHg TR Mean Velocity 165.1 cm/s TR Mean Gradient 12.8 mmHg TR Velocity Time Integral 58.5 cm TV Peak E Velocity 64.0 cm/s PV Peak Velocity 66.0 cm/s RV Acceleration Time 0.2 s RV Ejection Time 0.4 s RV AcT/ET 0.5 FINDINGS Left Ventricle Normal left ventricular size and systolic function, EF 55 %. Grade I/IV diastolic dysfunction (abnormal relaxation filling pattern), normal to mildly elevated filling pressures. Right Ventricle The right ventricle is normal in size and function. Right Atrium The right atrium is normal in size. Left Atrium The left atrium is normal in size. Mitral Valve Thickened mitral valve. Aortic Valve Thickened aortic valve. [id number] aortic valve regurgitation. Tricuspid Valve Mild tricuspid valve regurgitation. Pulmonic Valve Structurally normal pulmonic valve without significant stenosis. There is no pulmonic regurgitation. Pericardium Normal pericardium without effusion. Aorta Normal ascending aorta dimension. CONCLUSIONS Normal left ventricular size and systolic function, EF 55 %. Grade I/IV diastolic dysfunction (abnormal relaxation filling pattern), normal to mildly elevated filling pressures. Thickened aortic valve. [id number] aortic valve regurgitation. Mild tricuspid valve regurgitation. Thickened mitral valve. There is no pericardial effusion. There are no intracardiac masses. Compared to the study from 01/11/2018, there may not be significant change Dr Funmilayo De La Rosa MD [facility] (Electronically Signed) Final Date: 11 September 2019 18:19 S
== END 2019-09-11 12:52 | disposition home or self-care (01) ==
LOC: US 12:53
PROVIDERS: PCP Nurse Practitioner Family; Visit Provider Nurse Practitioner Family
DX: R01.1 Cardiac murmur, unspecified (principal); I87.8 Other specified disorders of veins; R06.02 Shortness of breath; I50.9 Heart failure, unspecified; I08.3 Combined rheumatic disorders of mitral, aortic and tricuspid valves; M79.89 Other specified soft tissue disorders
CPT/HCPCS: 93306; 93970

== ENCOUNTER 2019-09-16 14:25 | Emergency (ER) | payer MEDICARE, MEDICAID, SELFPAY ==
[2019-09-16 14:27] VITALS: BP 141/82; PULSE 64; RESP 18; TEMP 36.9; O2SAT 96; BMI 39.1
--- NOTE | 2019-09-16 14:34 | CT_ITS ---
WS: [id number] CT HEAD TECHNIQUE: Noncontrast CT of the head obtained from the skullbase to the vertex. CLINICAL INFORMATION: fall COMPARISON: 2 ,019 DLP: 1463.[address] scans at [facility] use at least one of these dose optimization techniques: automat ed exposure control; mA and/or kV adjustment per patient size (includes targeted exams where dose is matched to clinical indication); or iterative reconstruction. FINDINGS: No evidence of intracranial hemorrhage or mass effect. Ventricular system and basal cisterns are hannon nt. Mild small vessel changes with mild parenchymal volume loss. No extra-axial fluid collections. No evidence of mass or mass effect. Normal desai-white differentiation. Paranasal sinuses and mastoid air cells are well aerated. .Normal visualized soft tissues. CT/CT head wo con* [id number] IMPRESSION: 1. No evidence of intracranial hemorrhage or mass effect. 2. Normal desai-white differentiation. 3. No acute intracranial findings.
--- NOTE | 2019-09-16 14:34 | XRR_ITS ---
PROCEDURE INFORMATION: Exam: XR Left Knee Exam date and time: 09/16/2019 2:52 PM Age: 53 years old Clinical indication: Injury or trauma; Fall; Initial encounter; Blunt trauma; Knee; Left TECHNIQUE: Imaging protocol: XR Left knee. Views: 3 views. COMPARISON: CR Knee 2 views, LEFT [id number] 10/05/2018 1:56 PM FINDINGS: Bones/joints: There is no fracture or dislocation. There are minimal marginal osteophytes. No focal osseous lesion. No bone erosion or periosteal reaction Soft tissues: Normal. XR/XR knee LT 3V* [id number] IMPRESSION: No fracture.
--- NOTE | 2019-09-16 14:41 | ED_ITS ---
HPI - Fall General: Chief Complaint: Fall Stated Complaint: fall Time Seen by Provider: 09/16/19 14:27 Source: patient and EMS Mode of arrival: EMS Limitations: no limitations History of Present Illness: HPI Narrative: 53-year-old female who is here by EMS after a fall. Patient states she fell yesterday and struck her head. She has had a headache. She did have a loss of consciousness. Denies any chest pain before after the event. Patient also states she has knee pain to the left knee. Onset (ago): day(s) Fall from: standing Fall witnessed: no Place fall occurred: home Loss of consciousness: Yes Prolonged down time: no Associated symptoms-after fall: Reports headache(s); Denies abdominal pain or chest pain Review of Systems Const: Denies: fever(s), chills, body aches or change in appetite Eyes: Denies: blurry vision or eye discomfort ENMT: Denies: throat pain or dental pain Card: Denies: chest pain Resp: Denies: dyspnea GI: Denies: abdominal pain, nausea, vomiting or diarrhea : Denies: dysuria Musc: Reports: extremity pain Skin/Breast: Denies: rash Neuro: Reports: headache(s) Psych: Denies: depression Peter/Lymph: Denies: easy bruising All/Imm: Denies: urticaria PFSH ED PFSH: Medical History Asthma COPD (chronic obstructive pulmonary disease) Emphysema, unspecified Essential (primary) hypertension GERD (gastroesophageal reflux disease) Hypothyroidism (acquired) Moderate aortic regurgitation Seizure disorder SVT (supraventricular tachycardia) Systolic murmur Surgical History H/O esophagogastroduodenoscopy 03/19/2019: Normal H/O thyroidectomy History of carpal tunnel surgery History of colonoscopy 03/19/2019: Normal repeat in 10 years Hx of section Social History Smoking and tobacco status: former smoker Quit status (tobacco): has quit using tobacco Year quit tobacco: 2019 - 1-5 ciggs/day Alcohol intake: never Lives independently: Yes Household members: none Housing: Apartment Current occupational status: disabled History of recent travel: No Current gender identity: Female Physical Exam Const: COMMON NORMALS: no acute distress, patient oriented x3 and healthy appearing HENMT: COMMON NORMALS: normocephalic HEAD & SCALP: normocephalic OTHER: abrasion over right forehead Eye: COMMON NORMALS: Equal, round and reactive pupils present and EOMs intact bilaterally PUPIL: Yes Equal, round and reactive pupils present Neck/C-Spine: COMMON NORMALS: full ROM and supple Chest: COMMONS NORMALS: normal inspection of the chest and normal palpation of entire chest wall Resp: COMMON NORMALS: normal respiratory effort, No retractions, No use of accessory muscles and clear to auscultation bilaterally AUSCULTATION: clear to auscultation bilaterally Cardio: COMMON NORMALS: regular rate, regular rhythm and No murmurs present (Cardio) RATE: regular rate RHYTHM: regular rhythm GI: COMMON NORMALS: Normal to inspection, nondistended, normoactive bowel sounds present, Soft to palpation, non-tender and no masses PALPATION: Yes Soft to palpation Extremity: COMMON NORMALS: normal to inspection and full ROM Neuro: COMMON NORMALS: patient oriented x3, moves all extremities and no focal motor deficits Psych: COMMON NORMALS: mental status grossly normal, Normal thought process present and cooperative THOUGHT PROCESS: Normal thought process present Skin: COMMON NORMALS: no rashes or lesions noted and no wounds GENERAL SKIN EXAM: no rashes or lesions noted Course Vital Signs: Vital signs: Vital Signs Temperature 98.4 F 09/16/19 14:27 Pulse Rate 72 09/16/19 15:26 Respiratory Rate 17 09/16/19 15:26 Blood Pressure 125/81 09/16/19 15:26 Pulse Oximetry 96 09/16/19 15:26 MDM - Fall MDM Narrative: Medical decision making narrative: Patient presents with a closed head injury from a fall. Patient's head CT and knee x-ray are normal. She is well-appearing here and is stable for discharge. She is to follow-up with primary care doctor in 3 to 5 days and return if worsening. Imaging Data^: Other Xray: Attestation: I personally reviewed and interpreted this imaging study as follows: Radiologist's impression: [address] [address] XRay Report Signed Patient: Crystal Pierre Unit #: [id number] : 1965 Age/Sex: 53 / F ADM Date: 09/16/19 Loc: ER Room/Bed: Attending Dr: Ordering Provider/Ordering MD: Tenisha Casey MD Date of Service: 09/16/19 Procedure(s): XR knee LT 3V* [id number] Accession Number(s): [id number] Report Number: [id number] PROCEDURE INFORMATION: Exam: XR Left Knee Exam date and time: 09/16/2019 2:52 PM Age: 53 years old Clinical indication: Injury or trauma; Fall; Initial encounter; Blunt trauma; Knee; Left TECHNIQUE: Imaging protocol: XR Left knee. Views: 3 views. COMPARISON: CR Knee 2 views, LEFT [id number] 10/05/2018 1:56 PM FINDINGS: Bones/joints: There is no fracture or dislocation. There are minimal marginal osteophytes. No focal osseous lesion. No bone erosion or periosteal reaction Soft tissues: Normal. XR/XR knee LT 3V* [id number] IMPRESSION: No fracture. CT Head: Radiologist's impression: [place] [address] CT Scan Report Signed Patient: Crystal Pierre Unit #: [id number] : 1965 Age/Sex: 53 / F ADM Date: 09/16/19 Loc: ER Room/Bed: Attending Dr: Ordering Provider/Ordering MD: Tenisha Casey MD Date of Service: 09/16/19 Procedure(s): CT head wo con* [id number] Accession Number(s): [id number] Report Number: [id number] WS: [id number] CT HEAD TECHNIQUE: Noncontrast CT of the head obtained from the skullbase to the vertex. CLINICAL INFORMATION: fall COMPARISON: DLP: 1463.[address] scans at [facility] use at least one of these dose optimization techniques: automated exposure control; mA and/or kV adjustment per patient size (includes targeted exams where dose is matched to clinical indication); or iterative reconstruction. FINDINGS: No evidence of intracranial hemorrhage or mass effect. Ventricular system and basal cisterns are patent. Mild small vessel changes with mild parenchymal volume loss. No extra- axial fluid collections. No evidence of mass or mass effect. Normal desai-white differentiation. Paranasal sinuses and mastoid air cells are well aerated. .Normal visualized soft tissues. CT/CT head wo con* [id number] IMPRESSION: 1. No evidence of intracranial hemorrhage or mass effect. 2. Normal desai-white differentiation. 3. No acute intracranial findings. Discharge Plan Discharge Patient Disposition: Home Clinical Impression: Closed head injury Qualifiers: Encounter type: initial encounter Qualified Code(s): S09.90XA - Unspecified injury of head, initial encounter Condition: Stable Prescriptions: No Action montelukast [Singulair] 10 mg tablet 10 mg PO DAILY RF: 0 levetiracetam 250 mg tablet 250 mg PO BID RF: 0 aspirin [Adult Aspirin Regimen] 81 mg tablet,delayed release (DR/EC) 81 mg PO DAILY RF: 0 bumetanide 2 mg tablet 2 mg PO DAILY RF: 0 pantoprazole [Protonix] 40 mg tablet,delayed release (DR/EC) 40 mg PO DAILY RF: 0 atorvastatin 20 mg tablet 20 mg PO BEDTIME RF: 0 albuterol sulfate [ProAir HFA] 90 mcg/actuation HFA aerosol inhaler 2 puff INHALATION Q4H PRN (Reason: Shortness Of Breath) RF: 0 cetirizine 10 mg capsule 10 mg PO DAILY RF: 0 potassium chloride [Klor-Con] 20 mEq Packet 20 meq PO BID RF: 0 cholecalciferol (vitamin D3) [Vitamin D3] 25 mcg (1,000 unit) Tablet,Chewable 25 mcg PO DAILY RF: 0 spironolactone 25 mg Tablet 25 mg PO DAILY RF: 0 diclofenac sodium 1 % Gel 2 - 4 g TOPICAL QID PRN (Reason: UNKNOWN) RF: 0 magnesium oxide 400 mg magnesium Tablet 400 mg PO DAILY RF: 0 bismuth subsalicylate [Pepto-Bismol] 262 mg/15 mL Suspension See Rx Instructions .ROUTE .COMPLEX RF: 0 metoprolol tartrate 50 mg Tablet 50 mg PO BID RF: 0 budesonide 0.5 mg/2 mL Suspension For Nebulization 0.5 mg INHALATION BID RF: 0 ipratropium bromide 0.02 % Solution See Rx Instructions .ROUTE .COMPLEX RF: 0 naproxen 500 mg Tablet 500 mg PO Q6H PRN (Reason: Pain) RF: 0 guaifenesin [Mucinex] 600 mg Tablet Extended Release 12hr 1,200 mg PO BID PRN (Reason: Congestion) RF: 0 metoclopramide HCl [Reglan] 10 mg tablet 10 mg PO Q6H PRN (Reason: nausea and vomiting) Qty: 20 RF: 0 sucralfate 1 gram tablet 1 g PO TID PRN (Reason: Stomach Upset) RF: 0 isosorbide mononitrate 30 mg Tablet Extended Release 24 Hr 30 mg PO DAILY RF: 0 levothyroxine 100 mcg Tablet 100 mcg PO DAILY RF: 0 hydroxyzine HCl 10 mg tablet 10 mg PO TID PRN (Reason: Anxiety) RF: 0 Anoro Ellipta 62.5-25 mcg/actuation blister with device 1 ea INHALATION DAILY RF: 0 Discharge Orders: Discharge Order (Routine); Ordered 09/16/19 Ordered By: Tenisha Casey Referrals: Mary Fiore FNP [Primary Care Provider] - 1-3 days Discharge Diet: Advance as tolerated Discharge Activity: Resume usual activity Patient Instructions: Minor Head Injury (ED) Coding Level of Care Code ED Template Maker for Chg Fwd Exam Comprehensive
[2019-09-16 15:26] VITALS: BP 125/81; PULSE 72; RESP 17; O2SAT 96
[2019-09-16 16:31] VITALS: BP 132/74; PULSE 82; RESP 17; O2SAT 97
== END 2019-09-16 16:33 | disposition home or self-care (01) ==
PROVIDERS: Emergency Provider Emergency Medicine; PCP Nurse Practitioner Family
DX: S09.8XXA Other specified injuries of head, initial encounter (principal); Z79.82 Long term (current) use of aspirin; J43.9 Emphysema, unspecified; I10 Essential (primary) hypertension; Z87.891 Personal history of nicotine dependence; W19.XXXA Unspecified fall, initial encounter
CPT/HCPCS: 12345; 70450; 73562; 99281; 99283

== ENCOUNTER 2019-09-26 06:45 | Outpatient (CLI) | payer MEDICARE, MEDICAID, SELFPAY ==
[2019-09-26 06:45] VITALS: BMI 40.7
--- NOTE | 2019-09-26 06:54 | ECG_ITS ---
[facility] Test Date: 2019-09-26 Pat Name: Crystal Pierre Department: Room: Gender: Female Scale Expert: : 1965 Requested By: Lilliana Driver Order Number: [id number] Khanna MD: Carla Adams M.D. Interpretive Statements NAME OF STUDY: LEXISCAN SESTAMIBI STRESS TEST NOTE: Please note that this is the electrocardiogram portion of the Lexiscan/Sestamibi stress test. The perfusion scan will be documented separately. DATA: Baseline heart rate was 69 beats per minute. Baseline blood pressure was 148/79 millimeters of mercury. Target heart rate was 166. Maximum heart rate achieved was 90. which was 54 % of the predicted target heart rate. Maximum blood pressure was 151/79 millimeters of mercury. The reason for ending the test was completion of the protocol. The patient did not experience any symptoms. ELECTROCARDIOGRAM: BASELINE: Sinus rhythm. Normal axis. Otherwise, no ST-T changes suggestive of ischemia noted. No arrhythmia noted. EXERCISE: After Lexiscan injection, no ST-T changes suggestive of ischemic noted. No arrhythmia noted. CONCLUSION: Please note due to baseline abnormality of the EKG specificity and sensitivity of the EKG portion of LexiScan MIBI stress test will be lo 1. EKG not suggestive of ischemia 2. Lexiscan injection unremarkable. 3. Perfusion scan will be documented separately. Electronically Signed On 10-09-2019 19:03:06 CDT by Carla Adams M.D. [id number]
--- NOTE | 2019-09-26 06:55 | NMCV_ITS ---
NM aubree perf SPECT r/s* [id number] Crystal Pierre Age: 53 Gender: F : 1965 Exam Date: 09/26/2019 07:29 Ordering Phys: Lilliana Driver Technologist: PAULINA Mejía Exam Location: [facility] Indications: CHEST PAIN SOB STRESS TEST Please see separate stress test report in [facility] for full findings IMAGE PROTOCOL Rest/Stress 1 Lexiscan Day Radiopharmaceutical Dose (mCi) Administration Site Administered by Rest: Tc-99m 11.0 IV PAULINA Mejía Sestamibi Stress:Tc-99m 33.0 IV PAULINA Carranza Sestamibi Rest: 26-Sep-2019 60 Discovery 630 Stress: 26-Sep-2019 30 Discovery 630 0.4mg Lexiscan. Supine position only as patient was unable to lay prone. SPECT RESULTS Technical Quality: Good Raw Data Analysis: Normal Image Corrections: No attenuation or motion correction applied Summed Stress Score: 10 Summed Rest Score: 5 Summed Difference Score: 5 PERFUSION FINDINGS Small to moderate area of decreases uptake in the mid inferolateral and all apical segments excluding the apical anterior segment with a significant reversibility FUNCTIONAL RESULTS (calculated via Gated SPECT) Stress Image LV EF (%): 80 Stress EDV (mL):94 TID: 0.88 Stress ESV (mL):19 FUNCTIONAL FINDINGS: Segmental wall motion analysis revealing no gross wall motion normalities IMPRESSIONS 1. Myocardial perfusion imaging revealing a small to moderate area of decreased tracer uptake in the mid inferolateral and apical segments with significant reversibility suggestive of ischemia in the distribution of the left circumflex artery mostly with some involvement of the right coronary artery. 2. Normal LV ejection fraction of 80%. 3. LV wall motion analysis with no gross wall motion normalities. 4. Normal LV volume. No similar previous studies are available for comparison Dr Funmilayo De La Rosa MD [facility] (Electronically Signed) Final Date: 26 September 2019 12:42 S
--- NOTE | 2019-09-26 08:28 | SUR.PREOP ---
Patient reports no pain or discomfort prior to the start of the procedure.
[2019-09-26] MEDS: regadenoson 0.4 Mg/5 ml Syringe IVP (08:29)
[2019-09-26 08:41] VITALS: BP 120/76; PULSE 76
== END 2019-09-26 06:46 | disposition home or self-care (01) ==
LOC: CDL 06:45
PROVIDERS: PCP Nurse Practitioner Family; Visit Provider Nurse Practitioner Family
DX: R07.89 Other chest pain (principal); R06.02 Shortness of breath
CPT/HCPCS: 78452; 93017; A9500; J2785

== ENCOUNTER 2019-10-01 18:21 | Emergency (ER) | payer MEDICARE, MEDICAID, SELFPAY ==
--- NOTE | 2019-10-01 18:29 | XRR_ITS ---
PROCEDURE INFORMATION: Exam: XR Chest, 1 View Exam date and time: 10/01/2019 6:41 PM Age: 53 years old Clinical indication: Chest pain; Type not specified; Additional info: Cp TECHNIQUE: Imaging protocol: XR of the chest Views: Frontal portable upright view of the chest. COMPARISON: CR XR chest 1V portable [id number] 08/18/2019 10:12 PM FINDINGS: Lungs: The lungs are clear bilaterally. The pulmonary vasculature is normal. Pleural space: No pleural effusion. No pneumothorax. Heart/Mediastinum: The heart is normal in size and contour. Mediastinum: Stable. Bones/joints: Stable. XR/XR chest 1V portable [id number] IMPRESSION: No acute cardiopulmonary abnormality identified.
--- NOTE | 2019-10-01 18:48 | ED_ITS ---
HPI - Chest Pain General: Chief Complaint: Altered Mental Status Stated Complaint: CHEST PRESSURE, SHORT OF BREATH Time Seen by Provider: 10/01/19 18:26 Source: patient Mode of arrival: ambulatory Limitations: no limitations History of Present Illness: HPI narrative: 53-year-old female who is well- known to the ER states she been having chest pain over the last 2 days. States also had some slight weakness. She denies any worsening improving factors. States her pain is a pressure type pain and rates it a 2 out of 10. Denies any vomiting or diarrhea. Denies any abdominal pain. Associated symptoms: Deny abdominal pain, dyspnea, fever(s), nausea or vomiting Review of Systems Const: Denies: fever(s), chills, body aches or change in appetite Eyes: Denies: blurry vision or eye discomfort ENMT: Denies: throat pain or dental pain Card: Reports: chest pain Resp: Denies: dyspnea GI: Denies: abdominal pain, nausea, vomiting or diarrhea : Denies: dysuria Musc: Denies: neck pain or back pain Skin/Breast: Denies: rash Neuro: Reports: weakness in extremities Psych: Denies: depression Peter/Lymph: Denies: easy bruising All/Imm: Denies: urticaria PFSH ED PFSH: Medical History Asthma COPD (chronic obstructive pulmonary disease) Emphysema, unspecified Essential (primary) hypertension GERD (gastroesophageal reflux disease) Hypothyroidism (acquired) Moderate aortic regurgitation Seizure disorder SVT (supraventricular tachycardia) Systolic murmur Surgical History H/O esophagogastroduodenoscopy 03/19/2019: Normal H/O thyroidectomy History of carpal tunnel surgery History of colonoscopy 03/19/2019: Normal repeat in 10 years Hx of section Social History Smoking and tobacco status: former smoker Quit status (tobacco): has quit using tobacco Year quit tobacco: 2019 - 1-5 ciggs/day Alcohol intake: never Lives independently: Yes Household members: none Housing: Apartment Current occupational status: disabled History of recent travel: No Current gender identity: Female Physical Exam Const: COMMON NORMALS: no acute distress, patient oriented x3 and healthy appearing HENMT: COMMON NORMALS: normocephalic and atraumatic HEAD & SCALP: normocephalic and atraumatic Eye: COMMON NORMALS: Equal, round and reactive pupils present and EOMs intact bilaterally PUPIL: Yes Equal, round and reactive pupils present Neck/C-Spine: COMMON NORMALS: full ROM and supple Chest: COMMONS NORMALS: normal inspection of the chest and normal palpation of entire chest wall Resp: COMMON NORMALS: normal respiratory effort, No retractions, No use of accessory muscles and clear to auscultation bilaterally AUSCULTATION: clear to auscultation bilaterally Cardio: COMMON NORMALS: regular rate, regular rhythm and No murmurs present (Cardio) RATE: regular rate RHYTHM: regular rhythm GI: COMMON NORMALS: Normal to inspection, nondistended, normoactive bowel sounds present, Soft to palpation, non-tender and no masses PALPATION: Yes Soft to palpation Extremity: COMMON NORMALS: normal to inspection and full ROM Neuro: COMMON NORMALS: patient oriented x3, moves all extremities and no focal motor deficits Psych: COMMON NORMALS: mental status grossly normal, Normal thought process present and cooperative THOUGHT PROCESS: Normal thought process present Skin: COMMON NORMALS: no rashes or lesions noted and no wounds GENERAL SKIN EXAM: no rashes or lesions noted Course Vital Signs: Vital signs: Vital Signs Temperature 98.5 F 10/01/19 19:05 Pulse Rate 80 10/01/19 20:31 Respiratory Rate 18 10/01/19 20:31 Blood Pressure 129/76 10/01/19 20:31 Pulse Oximetry 94 10/01/19 20:31 MDM - Chest Pain MDM Narrative: Medical decision making narrative: Patient presents here with chief complaint to me as a chest pain. I did review triage note and she is told me her abdominal pain is minimal. Her abdominal exam here is benign and she has no right lower quadrant tenderness and no signs of surgical abdomen. Her white count here is normal. She states she has been feeling kind of funny but she has not had any altered mental status. Lab work including troponin here are normal. X-ray is normal as well. She feels improved I feel she is stable for discharge. She is to return if worsening. Lab Data: Labs: Lab Results 08/25/20 08/25/20 08/25/20 Range/Units 18:58 18:58 18:58 WBC 9.4 (4.0-10.0) 10^3/ uL RBC 4.25 (4.1-5.3) 10^6/u L Hgb 10.6 L (11.5-15.3) g/dL Hct 36.7 L (37.0-47.0) % MCV 86.4 (81-99) fL MCH 24.9 L (28.0-34.0) pg MCHC 28.9 L (30.0-36.0) g/dL RDW 14.7 (12.1-15.1) % Plt Count 321 (130-400) 10^3/c mm MPV 9.9 (7.4-10.4) fL Neut % (Auto) 60.0 % Lymph % (Auto) 27.6 % [place] % (Auto) 8.9 % Eos % (Auto) 2.6 % Baso % (Auto) 0.7 % Neut # (Auto) 5.63 (1.8-7.7) 10^3/u L Lymph # (Auto) 2.6 (0.8-4.8) 10^3/u L [place] # (Auto) 0.8 (0.2-0.9) 10^3/u L Eos # (Auto) 0.2 (0.0-0.8) 10^3/u L Baso # (Auto) 0.1 (0.0-0.1) 10^3/u L Nucleated RBC % (a uto) 0 % Nucleated RBCs # 0.0 /100WBC Sodium 139 (136-145) mmol/L Potassium 3.5 (3.5-5.1) mmol/L Chloride 99 (98-107) mmol/L Carbon Dioxide 30 H (22-29) mmol/L Anion Gap 13.5 (5-19) BUN 13 (6-20) mg/dL Creatinine 0.9 (0.5-0.9) mg/dL GFR Calculation 65.2 L (90-130) mL/min Glucose 104 (65-115) mg/dL Calculated Osmolal ity 284 L (285-295) mOsm/k g Calcium 9.1 (8.5-10.5) mg/dL Total Bilirubin 0.9 (0.15-1.2) mg/dL AST 14 (0-32) U/L ALT 8 (0-33) U/L Alkaline Phosphata se 96 (35-105) IU/L Troponin T Baselin e 15 H (0-10) ng/L Total Protein 6.7 (6.6-8.7) g/dL Albumin 3.7 (3.5-5.2) g/dL Globulin 3.0 (1.3-4.6) g/dL Imaging Data^: CXR: Attestation: I personally reviewed and interpreted this imaging study as fol lows: My impression: No acute abnormality EKG Data^: EKG 1: Attestation: I personally reviewed and interpreted this EKG as follows: EKG interpretation date: 10/01/19 EKG interpretation time: 19:40 Interpretation: nsr hr [address] or t wave abnormalities qrs 106 qtc 427 Discharge Plan Discharge Patient Disposition: Home Clinical Impression: Chest pain Qualifiers: Chest pain type: unspecified Qualified Code(s): R07.9 - Chest pain, unspecified Condition: Stable Prescriptions: No Action montelukast [Singulair] 10 mg tablet 10 mg PO DAILY RF: 0 levetiracetam 250 mg tablet 250 mg PO BID RF: 0 aspirin [Adult Aspirin Regimen] 81 mg tablet,delayed release (DR/EC) 81 mg PO DAILY RF: 0 bumetanide 2 mg tablet 2 mg PO DAILY RF: 0 pantoprazole [Protonix] 40 mg tablet,delayed release (DR/EC) 40 mg PO DAILY RF: 0 atorvastatin 20 mg tablet 20 mg PO BEDTIME RF: 0 albuterol sulfate [ProAir HFA] 90 mcg/actuation HFA aerosol inhaler 2 puff INHALATION Q4H PRN (Reason: Shortness Of Breath) RF: 0 cetirizine 10 mg capsule 10 mg PO DAILY RF: 0 potassium chloride [Klor-Con] 20 mEq Packet 20 meq PO BID RF: 0 cholecalciferol (vitamin D3) [Vitamin D3] 25 mcg (1,000 unit) Tablet,Chewable 25 mcg PO DAILY RF: 0 spironolactone 25 mg Tablet 25 mg PO DAILY RF: 0 diclofenac sodium 1 % Gel 2 - 4 g TOPICAL QID PRN (Reason: UNKNOWN) RF: 0 magnesium oxide 400 mg magnesium Tablet 400 mg PO DAILY RF: 0 metoprolol tartrate 50 mg Tablet 50 mg PO BID RF: 0 budesonide 0.5 mg/2 mL Suspension For Nebulization 0.5 mg INHALATION BID RF: 0 ipratropium bromide 0.02 % Solution See Rx Instructions .ROUTE .COMPLEX RF: 0 naproxen 500 mg Tablet 500 mg PO Q6H PRN (Reason: Pain) RF: 0 guaifenesin [Mucinex] 600 mg Tablet Extended Release 12hr 1,200 mg PO BID PRN (Reason: Congestion) RF: 0 metoclopramide HCl [Reglan] 10 mg tablet 10 mg PO Q6H PRN (Reason: nausea and vomiting) Qty: 20 RF: 0 sucralfate 1 gram tablet 1 g PO TID PRN (Reason: Stomach Upset) RF: 0 isosorbide mononitrate 30 mg Tablet Extended Release 24 Hr 30 mg PO DAILY RF: 0 levothyroxine 100 mcg Tablet 100 mcg PO DAILY RF: 0 hydroxyzine HCl 10 mg tablet 10 mg PO TID PRN (Reason: Anxiety) RF: 0 Anoro Ellipta 62.5-25 mcg/actuation blister with device 1 ea INHALATION DAILY RF: 0 Discharge Orders: Discharge Order (Routine); Ordered 10/01/19 Ordered By: Tenisha Casey Referrals: Mary Fiore FNP [Primary Care Provider] - 1-3 days Discharge Diet: Advance as tolerated Discharge Activity: Resume usual activity Patient Instructions: Chest Pain (ED) Discharge Date/Time: 10/01/19 20:33 Coding Level of Care Code ED [facility] for [facility]g Fwd Exam Comprehensive
[2019-10-01 19:03] LABS: Basophils # 0.1 10^3/uL (0.0-0.1); Basophils % 0.7 %; Eosinophils # 0.2 10^3/uL (0.0-0.8); Eosinophils % 2.6 %; Hematocrit 36.7 % (37.0-47.0); Hemoglobin 10.6 g/dL (11.5-15.3); Lymphocytes # 2.6 10^3/uL (0.8-4.8); Lymphocytes % 27.6 %; Mean Corpuscular HGB Conc 28.9 g/dL (30.0-36.0); Mean Corpuscular Hemoglobin 24.9 pg (28.0-34.0); Mean Corpuscular Volume 86.4 fL (81-99); Mean Platelet Volume 9.9 fL (7.4-10.4); Monocytes # 0.8 10^3/uL (0.2-0.9); Monocytes % 8.9 %; Neutrophils # 5.63 10^3/uL (1.8-7.7); Nucleated Red Blood Cells % 0 %; Platelet Count 321 10^3/cmm (130-400); Red Blood Count 4.25 10^6/uL (4.1-5.3); Red Cell Distribution Width 14.7 % (12.1-15.1); White Blood Count 9.4 10^3/uL (4.0-10.0)
[2019-10-01 19:05] VITALS: BP 142/72; PULSE 71; RESP 22; TEMP 36.9; O2SAT 93; BMI 40.7
[2019-10-01 19:21] LABS: Alanine Aminotransferase 8 U/L (0-33); Albumin Level 3.7 g/dL (3.5-5.2); Alkaline Phosphatase 96 IU/L (35-105); Anion Gap 13.5 (5-19); Aspartate Amino Transferase 14 U/L (0-32); Blood Urea Nitrogen 13 mg/dL (6-20); Calcium 9.1 mg/dL (8.5-10.5); Carbon Dioxide 30 mmol/L (22-29); Chloride 99 mmol/L (98-107); Glomerular Filtration Rate 65.2 mL/min (90-130); Glucose 104 mg/dL (65-115); Osmolality Calculated 284 mOsm/kg (285-295); Potassium 3.5 mmol/L (3.5-5.1); Sodium 139 mmol/L (136-145); Total Bilirubin 0.9 mg/dL (0.15-1.2); Total Protein 6.7 g/dL (6.6-8.7)
[2019-10-01 19:23] LABS: Troponin(5th) Baseline 15 ng/L (0-10)
[2019-10-01] MEDS: LORazepam 2 mg/mL INJ 1 mL 0.5 MG IVP (19:39)
[2019-10-01 19:41] VITALS: BP 142/72; PULSE 74; RESP 20; O2SAT 97
--- NOTE | 2019-10-01 20:29 | ECG_ITS ---
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 Measurements Intervals [place] Rate: 71 P: 55 MD: 146 QRS: 55 QRSD: 106 T: 57 QT: 404 QTc: 441 Interpretive Statements SINUS RHYTHM Compared to ECG 08/18/2019 22:09:16 No significant changes Electronically Signed On 10-02-2019 18:30:05 CDT by Joseph Wilson M.D. [id number]
[2019-10-01 20:31] VITALS: BP 129/76; PULSE 80; RESP 18; O2SAT 94
== END 2019-10-01 20:33 | disposition home or self-care (01) ==
PROVIDERS: Emergency Provider Emergency Medicine; PCP Nurse Practitioner Family
DX: R07.9 Chest pain, unspecified (principal); Z79.82 Long term (current) use of aspirin; J44.9 Chronic obstructive pulmonary disease, unspecified; I10 Essential (primary) hypertension; Z87.891 Personal history of nicotine dependence
CPT/HCPCS: 12345; 36415; 71045; 80053; 84484; 85025; 93005; 96374; 99283; 99284; J2060

== ENCOUNTER → 2019-10-08 09:09 | Outpatient (BNVA) | payer MEDICARE, MEDICAID, SELFPAY | PROVIDERS: PCP Nurse Practitioner Family; Visit Provider Internal Medicine | DX: Z11.59 Encounter for screening for other viral diseases (principal) | CPT/HCPCS: 87635 ==

== ENCOUNTER 2019-10-10 06:14 | Day surgery (SDC) | payer MEDICARE, MEDICAID, SELFPAY ==
[2019-10-08 12:41] LABS: Basophils # 0.1 10^3/uL (0.0-0.1); Basophils % 0.6 %; Eosinophils # 0.2 10^3/uL (0.0-0.8); Eosinophils % 2.6 %; Hematocrit 38.3 % (37.0-47.0); Hemoglobin 11.1 g/dL (11.5-15.3); Lymphocytes # 2.5 10^3/uL (0.8-4.8); Lymphocytes % 28.2 %; Mean Corpuscular Hemoglobin 24.9 pg (28.0-34.0); Mean Corpuscular Volume 85.9 fL (81-99); Mean Platelet Volume 10.7 fL (7.4-10.4); Monocytes # 0.6 10^3/uL (0.2-0.9); Monocytes % 6.4 %; Nucleated Red Blood Cells % 0 %; Platelet Count 412 10^3/cmm (130-400); Red Blood Count 4.46 10^6/uL (4.1-5.3); Red Cell Distribution Width 14.7 % (12.1-15.1); White Blood Count 8.7 10^3/uL (4.0-10.0)
[2019-10-08 12:55] LABS: INR 0.91 (0.8-1.2)
[2019-10-08 13:05] LABS: Anion Gap 15.8 (5-19); Blood Urea Nitrogen 18 mg/dL (6-20); Calcium 8.9 mg/dL (8.5-10.5); Carbon Dioxide 30 mmol/L (22-29); Chloride 99 mmol/L (98-107); Glomerular Filtration Rate 51.8 mL/min (90-130); Glucose 130 mg/dL (65-115); Osmolality Calculated 290 mOsm/kg (285-295); Potassium 3.8 mmol/L (3.5-5.1); Sodium 141 mmol/L (136-145)
[2019-10-09 12:49] VITALS: BMI 40.7
[2019-10-10] VITALS (23 sets, daily range): BP systolic 113–162; BP diastolic 62–103; PULSE 63–79; RESP 14–25; TEMP 36.9; O2SAT 65–97
--- NOTE | 2019-10-10 06:00 | XACV_ITS ---
Ht: 170 cm Wt: 123 kg BSA: 2.47 m2 Gender: Female : 1965 Exam Priority: Routine Procedure(s): Procedure Description: Diagnostic procedure Procedure Description: O2 saturation Procedure Description: Coronary Angiography Diagnostic Cath Status: Elective Diagnostic Findings No significant disease noted in the Left Main, LAD, Circumflex, or RCA coronary arteries. Coronary angiography shows right dominance. PCI Status: Elective Conclusions No significant disease noted in the Left Main, LAD, Circumflex, or RCA coronary arteries. Right heart cath1-Normal right-sided filling pressure RA 3 mmHg2-Normal right ventricle pressure 28/0 mmHg3-Normal pulmonary artery mean pressure 19 mmHg4-Normal left-sided filling pressures/pulmonary capillary wedge pressureNo step up notedVenogram of inferior vena cava was performed left common iliac vein was not well visualized rule out May Thurner syndrome. Recommendations Continue current medical management and risk factor modification. Advised MR venous angiogram to rule out May Thurner syndrome. Diagnostic RX Recommendation: none Pressures Phase:Rest AO : 125 mmHg / 68 mmHg ( 94 mmHg ) @ 3:27:00 AM 129 mmHg / 69 mmHg ( 95 mmHg ) @ 3:33:00 AM 119 mmHg / 65 mmHg ( 89 mmHg ) @ 3:33:00 AM LV : 120 mmHg / 0 mmHg / @ 3:33:00 AM 120 mmHg / -2 mmHg / @ 3:33:00 AM RV : 28 mmHg / 0 mmHg / @ 4:04:00 AM PA : 29 mmHg / 14 mmHg ( 19 mmHg ) @ 4:02:00 AM 29 mmHg / 8 mmHg ( 18 mmHg ) @ 4:03:00 AM RA : a wave = v wave = mean = 3 mmHg @ 4:05:00 AM O2 Content Phase:Rest PA : O2 Content O2: 70.6 % @ 3:33:00 AM Saturations Phase:Rest AO : 96 % @ 3:27:00 AM RA : 69 % @ 3:33:00 AM RV : 64 % @ 3:33:00 AM PA : 71 % @ 3:33:00 AM Cardiac Output Phase:Rest Thang : 6 l/min @ 3:27:00 AM Thang Cardiac Index: 3 L/min/m2 @ 3:27:00 AM Valves Phase:DefaultPhase AV : 0.0 mmHg @ 9:27:43 AM AV Mean Gradient: 0.0 mmHg @ 9::43 AM Clinical Evaluation EBL: 5mL-10mL Procedural Details Procedure Consent Obtained. Pre-Procedure Time Out. Identified patient by full name and date of as verbalized by the patient/guarantor. Does the consent match the physician's order: Yes. Accurate & Complete Informed Consent: Yes. Inpatient/Outpatient History & Physical on Chart: Yes. If H&P is completed, is and addenduem needed: No; If yes, is the addendum complete: N/A. Relevant Radiology Images available: Yes. The risks, benefits, and alternatives of sedation and/or procedure were discussed by physician. The patient agrees to continue. Procedure started. Correct patient, site and procedure confirmed by cath team. Current diagnosis: Chest Pain. PERRLA. 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 Lungs clear x 5 lobes. IV Site on Arrival: 20 gauge in the left anticubital. IV Fluids: 0.9% NaCl at KVO. 150 mL infused prior to supervisor labor gang. Pre Procedural Pulses: bilateral dorsalis pedis was 3+. Pre Procedural Pulses: bilateral posterior tibial was 3+. Pre Procedural Pulses: bilateral radial was 3+. bilateral groins was prepped with chloroprep then draped in the usual sterile fashion. right radial was prepped with chloroprep then draped in the usual sterile fashion. Physician notified. Baseline sample Acquired. HR: 68 BPM. Equipment: 6F - Radial. ACIST Manifold Kit Model BT 2000. Cardiac Cath Pack. Heparinized Saline (2 units/mL), 1000 mL bag. Physician arrived. Physician scrubbed in. Immediate Pre-Procedure Time Out. Correct Patient: Yes; Correct Procedure: Yes; Correct Site: No; Correct Patient Position: Yes; Correct Supplies: Yes; Dried Flammable Prep: Yes; Blood Products Available: No;. Lidocaine 1% infiltrated to the right radial. Arterial access obtained. A 5 [place] TIG catheter in over wire. Multiple views taken of left coronary artery. Catheter redirected to the RCA. Catheter out. A 5 [place] JR4 catheter in over wire. EDP Sample taken: LV 120/-1,14; HR: 70 BPM; SpO2: 98%. Pullback taken: LV 120/-3,12; AO 129/69(95); Mean: 0mmHg, Peak to Peak: 0mmHg, SEP: 7sec/min; HR: 71 BPM; SpO2: 98%. Multiple views taken of right coronary artery. Switching to groin for venous access for right heart cath. TR band placed. Hemostasis obtained. A TR Band was successful obtaining hemostatsis at the Right Radial artery insertion site. Lidocaine 1% infiltrated to the right groin. Venous access obtained with a micropuncture set. [place] MON catheter inserted. Glidewire inserted. Glidewire out. Oximetry samples were obtained. Normal venous range: 60-85%. Normal arterial range: 95-100%. Pressure measurements obtained. 5FR pigtail inserted over the venous sheath. Venogram performed in [place] @ 10 mL/second for a total of 30 mL. Venous sheath pulled by Gretchen Nunez. Post Procedure: Pulses reassessed and unchanged. No VTE prophylaxis required. PERRLA. 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 Medication's Wasted: Lidocaine 1% = 2mL. Medication's Wasted: Nitro = 49.8 mg. Medication's Wasted: Heparin = 1000 units. Medication's Wasted: Other = Versed 1 mg. Total IV fluids: 350 mL. Contrast type used: Omnipaque 300 mgI/mL, 500 mL bottle. Post-op diagnosis: Possible May Thurner Syndrome. Complications: None. Estimated blood loss: 5mL-10mL. Vital chart was stopped. Procedure completed. Patient transferred by bed to 1st floor. Site: Right Radial artery Sheath Size: 6 Fr Hemostasis Method: TR Band Hemostasis Success: Successful Site: Right Femoral vein Sheath Size: 6 Fr Hemostasis Success: Unsuccessful Procedure Medications Start: 7:46 AM Stop: 7:46 AM Medication: Solu-Medrol (methylprednisolone) Amount: 125 mg Route: I.V. Start: 8:00 AM Stop: 8:00 AM Medication: Versed Amount: 1 mg Route: I.V. Start: 8:00 AM Stop: 8:00 AM Medication: Fentanyl Amount: 50 mcg Route: I.V. Start: 8:18 AM Stop: 8:18 AM Medication: Versed Amount: 1 mg Route: I.V. Start: 8:24 AM Stop: 8:24 AM Medication: Nitrogylcerin Amount: 200 mcg Route: I.A. Start: 8:31 AM Stop: 8:31 AM Medication: Fentanyl Amount: 50 mcg Route: I.V. Start: 8:48 AM Stop: 8:48 AM Medication: Versed Amount: 1 mg Route: I.V. I, the attending physician, have reviewed and verified all procedure medications. Yes, all medications given per verbal order History/Risk Factors Hypertension: Yes Dyslipidemia: Yes Peripheral Arterial Disease (PAD): No Myocardial Infarction (FL): No Obesity: Yes Renal Disease: No Tobacco Use: Former Prior Interventions PCI: No CABG: No Valve Surgery: No Report Signatures Finalized by:Carla Adams MD on 10/22/2019 5:33:29 PM
--- NOTE | 2019-10-10 08:14 | W.PM.OPSUD ---
Surgery/Procedure H&P Update DATE OF PROCEDURE: October 10, 2019 DATE H&P PERFORMED: 09/24/19 H&P UPDATE INFORMATION: I have reviewed H&P completed within last 30 days and I have examined patient prior to procedure PREOP DIAGNOSIS: Patient continues to have chest pain. She has a stress test which showed moderate reversibility in the inferior inferolateral region, she was in the ER with chest pain. She has continuous worsening of shortness of breath and lower extremity edema which is not explainable just on the basis of heart failure. I would like to rule out pulmonary hypertension as well with right heart cath. PLANNED PROCEDURE: Operation Date: 10/10/19 07:00 Proposed Procedures p Cardiac Catheterization left and right heart cath(Bilateral) - Carla Adams MD PATIENT REASSESSED PRIOR TO SEDATION, WITH NO CHANGE NOTED: Yes PHYSICAL EXAM: alert, oriented x 3 and clear to auscultation bilaterally AIRWAY EVAL/ANESTHESIA PLAN: ASA II and Risks, benefits & alternatives of sedation and/or procedure discussed ADDITIONAL INFORMATION: Patient has been explained by myself all the risk benefit and alternative for the procedure. She understand the risk of emergent and urgent surgeries CABG intubation. She agrees with it. We will proceed with it.
--- NOTE | 2019-10-10 10:08 | PC.NURSE ---
Patient arrived to floor from cathode ray tube assembler at 0935. 2 Nurse verification of R radial and R groin insertion sites. Sheath pulled by cathode ray tube assembler. Dressing CDI. TR band in tact with 16 ml of air. Sites asymptomatic. Patient denies any pain at this time. Nurse to continue to monitor.
--- NOTE | 2019-10-10 12:20 | PC.NURSE ---
TR band off at 1125. 16 ml of air removed per protocol. Patient tolerated well. Site asymptomatic. Dressing applied, CDI. Nurse to continue to monitor.
--- NOTE | 2019-10-10 14:00 | PC.NURSE ---
Patient bedrest complete. Ambulated with SBA and walker. Incision sites reassessed, asymptomatic. Patient became dizzy when sitting up in bed and upon standing. Orthostatic BPs obtained. Dr. Adams notified of event. No new orders received. Physician cleared patient for discharge. Nurse to continue to monitor.
--- NOTE | 2019-10-10 14:23 | PC.NURSE ---
Discharge instructions given per the physician's orders. Patient verbalized understanding of the information and did not have any further questions. IV has been removed. Patient is dressed. [employer] contacted for ride home. Nurse to continue to monitor.
== END 2019-10-10 14:38 | disposition home or self-care (01) ==
LOC: CCL 06:14 → CSU 09:22
PROVIDERS: PCP Nurse Practitioner Family; Visit Provider Internal Medicine Cardiovascular Disease
DX: R07.89 Other chest pain (principal); J43.9 Emphysema, unspecified; I10 Essential (primary) hypertension; E03.9 Hypothyroidism, unspecified; G40.909 Epilepsy, unspecified, not intractable, without status epilepticus; E78.5 Hyperlipidemia, unspecified; E66.9 Obesity, unspecified; Z68.41 Body mass index [BMI] 40.0-44.9, adult; Z79.82 Long term (current) use of aspirin; Z87.891 Personal history of nicotine dependence; Z88.0 Allergy status to penicillin; Z88.5 Allergy status to narcotic agent
CPT/HCPCS: 12345; 36415; 80048; 85025; 85610; 93453; C1751; C1769; C1887; C1894; J1644; J2250; J2930; J3010; J3490; J7030; Q9967

== ENCOUNTER → 2019-10-16 15:05 | Outpatient (BNVA) | payer MEDICARE, MEDICAID, SELFPAY | PROVIDERS: PCP Nurse Practitioner Family; Visit Provider Nurse Practitioner Family | DX: E03.9 Hypothyroidism, unspecified (principal); I87.8 Other specified disorders of veins | CPT/HCPCS: 80048; 84439; 84443; 84481 ==

== ENCOUNTER → 2019-10-21 08:47 | Outpatient (BNVA) | payer MEDICARE, MEDICAID, SELFPAY | PROVIDERS: PCP Nurse Practitioner Family; Visit Provider Internal Medicine | DX: Z11.59 Encounter for screening for other viral diseases (principal) | CPT/HCPCS: 87635 ==

== ENCOUNTER → 2019-10-22 10:55 | Outpatient (BNVA) | payer MEDICARE, MEDICAID, SELFPAY | PROVIDERS: PCP Nurse Practitioner Family; Visit Provider Orthopaedic Surgery | DX: Z11.59 Encounter for screening for other viral diseases (principal) | CPT/HCPCS: 87635 ==

== ENCOUNTER 2019-10-24 07:40 | Day surgery (SDC) | payer MEDICARE, MEDICAID, SELFPAY ==
[2019-10-23 10:58] VITALS: BMI 40.7
[2019-10-24] VITALS (8 sets, daily range): BP systolic 108–144; BP diastolic 63–103; PULSE 59–73; RESP 14–25; TEMP 36.2–36.6; O2SAT 95–100
--- NOTE | 2019-10-24 08:22 | P.HP_ITS ---
Same Day Surgery H&P Indication for Procedure/HPI DATE OF PROCEDURE: October 24, 2019 CHIEF COMPLAINT/INDICATIONFOR SURGICAL PROCEDURE: Numbness pain left arm. EMG nerve conduction study shows severe ulnar neuropathy at level of elbow. PREOP DIAGNOSIS: Left cubital tunnel syndrome PLANNED PROCEDRUE: Operation Date: 10/24/19 08:05 Proposed Procedures p Ulna Nerve Decompression 50786 G56.22(Left) - Schuyler Brooks MD Operation Date: 10/24/19 11:45 Proposed Procedures p Ulna Nerve Decompression 75242 G56.22(Left) - Schuyler Brooks MD Medications/Allergies* Home Medications Medication Instructions Recorded Confirmed Type albuterol sulfate 90 mcg/actuation 2 puff INHALATION Q4H PRN 02/15/19 10/24/19 History aerosol inhaler aspirin 81 mg tablet,delayed 81 mg PO DAILY 02/15/19 10/23/19 History release atorvastatin 20 mg tablet 20 mg PO BEDTIME 02/15/19 10/24/19 History bumetanide 2 mg tablet 2 mg PO DAILY tab 02/15/19 10/24/19 History levetiracetam 250 mg tablet 250 mg PO BID 02/15/19 10/24/19 History montelukast 10 mg tablet 10 mg PO DAILY 02/15/19 10/24/19 History pantoprazole 40 mg tablet,delayed 40 mg PO DAILY 02/15/19 10/24/19 History release guaifenesin [Mucinex] 1,200 mg PO BID PRN 02/18/19 10/24/19 History ipratropium bromide 1 ml INHALATION PRN PRN 02/18/19 10/24/19 History magnesium oxide 400 mg PO DAILY 02/18/19 10/24/19 History metoprolol tartrate 50 mg PO BID 02/18/19 10/24/19 History naproxen 500 mg PO Q6H PRN 02/18/19 10/24/19 History spironolactone 25 mg PO DAILY 02/18/19 10/24/19 History cetirizine 10 mg capsule 10 mg PO DAILY 03/04/19 10/24/19 History potassium chloride [Klor-Con] 20 meq PO BID 04/23/19 10/24/19 History hydroxyzine HCl 10 mg PO TID PRN 09/16/19 10/24/19 History isosorbide mononitrate 30 mg PO DAILY 09/16/19 10/24/19 History levothyroxine 100 mcg PO DAILY 09/16/19 10/24/19 History sucralfate 1 g PO TID PRN 09/16/19 10/24/19 History Allergies/Adverse Reactions Allergy/AdvReac Type Severity Reaction Status Date / Time chlorpromazine Allergy Unknown ALGY-Rash Verified 10/24/19 07:58 diphenhydramine Allergy Unknown Unknown Verified 10/24/19 07:58 Iodinated Contrast Media Allergy Unknown ALGY-Hives Verified 10/24/19 07:58 tramadol Allergy Unknown Verified 10/24/19 07:58 amoxicillin AdvReac Unknown ADR-Nausea Verified 10/24/19 07:58 codeine AdvReac Unknown ADR-Vomitin Verified 10/24/19 07:58 g Penicillins AdvReac Unknown ADR-Vomitin Verified 10/24/19 07:58 g Pertinent History/Comorbid Conditions* Medical History (Updated 10/16/19 @ 14:13 by BRITTNEY Waters) Asthma COPD (chronic obstructive pulmonary disease) Emphysema, unspecified Essential (primary) hypertension GERD (gastroesophageal reflux disease) Hypothyroidism (acquired) Moderate aortic regurgitation Seizure disorder SVT (supraventricular tachycardia) Systolic murmur Surgical History (Updated 03/19/19 @ 09:25 by Gonzalez Caban MD) H/O esophagogastroduodenoscopy 03/19/2019: Normal H/O thyroidectomy History of carpal tunnel surgery History of colonoscopy 03/19/2019: Normal repeat in 10 years Hx of section Social History Smoking and tobacco status: former smoker Quit status (tobacco): has quit using tobacco Year quit tobacco: 2018 - 1-5 ciggs/day Alcohol intake: never Lives independently: Yes Household members: none Housing: Apartment Current occupational status: disabled History of recent travel: No Current gender identity: Female Pertinent Exam Findings alert, oriented x 3 and clear to auscultation bilaterally Recommendations Surgery/Procedure today Coding Level of Care Code Acute Turn Down Attendant for Dc Serrato
[2019-10-24 08:34] LABS: Glucose Point of Care 112 mg/dL (70-110)
[2019-10-24] MEDS: sodium chloride 0.9% 1,000 ML 30 ML IV (09:03)
--- NOTE | 2019-10-24 09:09 | ANES.PREANE2 ---
Pre-Anesthetic Assessment Pre-Anesthetic Assessment: Height/Weight: Height 1.7 m Weight 117.934 kg Temp Pulse Resp BP Pulse Ox 97.2 F L 59 L 18 144/103 97 10/24/19 08:08 10/24/19 08:08 10/24/19 08:08 10/24/19 08:08 10/24/19 08:08 Preop Diagnosis: Left cubital tunnel syndrome Proposed Procedure: Operation Date: 10/24/19 08:05 Proposed Procedures p Ulna Nerve Decompression 34947 G56.22(Left) - Schuyler Brooks MD Operation Date: 10/24/19 11:45 Proposed Procedures p Ulna Nerve Decompression 29139 G56.22(Left) - Schuyler Brooks MD Familial anesthetic complications: none Was Beta Francisco Javier taken within 24 hours: Yes Last intake: Intake Last Liquid Date 10/23/19 Last Liquid Time 20:00 Last Solid Date 10/23/19 Last Solid Time 18:00 Social: Social History: No alcohol Comment: former smoker Exam: Pre-Anes Outpt Exam: alert, oriented x 3, clear to auscultation bilaterally and regular rate & rhythm Airway: Cervical ROM: WNL MP: 3 Dentition: False Pulmonary: Pulmonary: Asthma and COPD (oxygen prn) CV/HEM: CV/HEM: HTN Comments: Mild -mod AVR Hx SVT Diastolic CHF echo 2019 EF 55%, angio 2019 shows normal coronaries GI: GI: GERD Metabolic: Metabolic: Thyroid Neuropsych: Neuropsych: Seizure (last one a few months ago) Anesthetic Plan: ASA status: 4 Anesthesia: General Risk of > 500 ml blood loss (7ml/kg in children): No Meds/Allergies Current Medications: Current Medications Generic Name Dose Route Start Last Admin Trade Name Freq PRN Reason Stop Dose Admin Sodium Chloride 1,000 mls @ 30 ml s/hr 10/24/19 08:00 10/24/19 09:03 Sodium Chloride 0.9% IV 10/25/19 07:59 30 mls/hr .Q24H KENY Administration PFSH Anesthesia PFSH: Medical History (Updated 10/16/19 @ 14:13 by BRITTNEY Waters) Asthma COPD (chronic obstructive pulmonary disease) Emphysema, unspecified Essential (primary) hypertension GERD (gastroesophageal reflux disease) Hypothyroidism (acquired) Moderate aortic regurgitation Seizure disorder SVT (supraventricular tachycardia) Systolic murmur Surgical History H/O esophagogastroduodenoscopy 03/19/2019: Normal H/O thyroidectomy History of carpal tunnel surgery History of colonoscopy 03/19/2019: Normal repeat in 10 years Hx of section Social History Smoking and tobacco status: former smoker Quit status (tobacco): has quit using tobacco Year quit tobacco: 2018 - 1-5 ciggs/day Alcohol intake: never Lives independently: Yes Household members: none Housing: Apartment Current occupational status: disabled History of recent travel: No Current gender identity: Female Data Anesthesia Other Labs: Laboratory Results - last 48 hr 10/24/19 08:32 POC Glucose 112 Cardiac Studies: No Data to Display
[2019-10-24] MEDS: clindamycin 600 MG/50 ML PREMIX 100 MG IV (10:20)
--- NOTE | 2019-10-24 11:59 | SUR.PHASEI ---
1157 PATIENT TO PACU FROM OR. RR EVEN AND UNLABORED. ORAL AIRWAY IN PLACE, SPO2 100% ON SIMPLE MASK AT 8L. DRESSING TO LEFT ARM, CDI WITH SLING.
--- NOTE | 2019-10-24 12:00 | P.OP_ITS ---
Operative Report Date of procedure: October 24, 2019 Pre-op Diagnosis: Left cubital tunnel syndrome Post-op diagnosis: same Post-op Findings: Same Procedure Done: Left ulnar nerve decompression Pathology: none sent Surgeon: Schuyler Brooks Anesthesia: General Estimated blood loss (mL): 25 Tourniquet time (min): 14 Findings: The patient's left ulnar nerve was embedded in scar tissue behind the medial epicondyle Condition: stable Disposition: PACU Procedure: The patient was taken to the operating room and given a general anes thesia. A tourniquet was inflated to 225 mmHg. A timeout was performed. A 5 cm long incision was made behind the medial epicondyle. Dissection was accomplished bluntly under loupe magnification identifying the ulnar nerve proximally. Utilizing a hemostat the fascia over the nerve was elevated and incised proximally. Dissection was then carried distally behind the medial epicondyle and into the flexor carpi ulnaris musculature. Dissection was stopped with the first muscular branches identified. Elbow was brought through range of motion with the nerve seen to stay reduced behind the medial epicondyle. No formal transition was thought to be warranted. Wounds were irrigated with saline. Deep tissues were closed with 2-0 Vicryl. Subcutaneous is closed with 3-0 Vicryl. The skin was closed with a running 3-0 Prolene. Steri-Strips were applied. Xeroform gauze, 4 x 4's, compressive labral, and Tho wrap, and a sling were applied. The patient was taken recovery room in stable condition.
--- NOTE | 2019-10-24 12:02 | SUR.PHASEI ---
1202 ORAL AIRWAY REMOVED AT THIS TIME. SPO2 100% ON SIMPLE MASK AT 8L.
--- NOTE | 2019-10-24 12:19 | SUR.PHASEI ---
1215 TO OPS. DENIES PAIN. DRESSING TO LEFT ARM, CDI.
--- NOTE | 2019-10-24 13:00 | ANE.PACU2 ---
Inpatient post-anesthesia follow up: Airway intact: Yes Vital signs: Temperature 97.9 F Pulse Rate 69 Respiratory Rate 16 Blood Pressure 137/81 Pulse Oximetry 96 Oxygen Delivery Me thod Room Air Oxygen Flow Rate 8 Fraction of Inspir ed Oxygen Hydration adequate: Yes Nausea and vomiting: No Pain level: 1 Mental status: Baseline
== END 2019-10-24 13:00 | disposition home or self-care (01) ==
LOC: OR 07:43
PROVIDERS: PCP Nurse Practitioner Family; Visit Provider Orthopaedic Surgery
PROC: (CPT 64718; principal; 2019-10-24 10:00)
DX: G56.22 Lesion of ulnar nerve, left upper limb (principal); J43.9 Emphysema, unspecified; I10 Essential (primary) hypertension; E03.9 Hypothyroidism, unspecified; G40.909 Epilepsy, unspecified, not intractable, without status epilepticus; Z79.82 Long term (current) use of aspirin; Z87.891 Personal history of nicotine dependence; Z88.0 Allergy status to penicillin; Z88.5 Allergy status to narcotic agent
CPT/HCPCS: 64718; 12345; 36416; 82962; J0131; J0330; J1100; J2405; J2704; J3010; J3490; J7030

== ENCOUNTER 2019-10-24 21:06 | Emergency (ER) | payer MEDICARE, MEDICAID, SELFPAY ==
[2019-10-24 21:06] VITALS: BP 129/64; PULSE 88; RESP 20; TEMP 36.7; O2SAT 97; BMI 40.7
--- NOTE | 2019-10-24 21:18 | W.ED.GENADLT ---
Documented by User: Shanique Chavez 10/24/19 23:18 HPI - General Adult General: Chief complaint: General Medical Stated complaint: POSS SEIZURE Time Seen by Provider: 10/24/19 21:08 Source: patient Mode of arrival: ambulatory Limitations: no limitations History of Present Illness: HPI narrative: Crystal is a nice 53-year-old female who comes in concerned that she may have a seizure. The patient has a history of seizures but states she has not had one in quite some time. Patient had surgery today for her left elbow. She denies chest pain, shortness of breath, leg pain or swelling, abdominal pain, or fever. Patient states she just feels very nervous like a seizure may come. She did take her seizure medication today. She cannot remember the last time she did have a seizure. Patient appears very anxious and nervous and she admits to this as well. Associated symptoms: Deny chest pain, dyspnea, headache(s), nausea, rash, palpitations, syncope or vomiting Review of Systems Const: Denies: fever(s) Eyes: Denies: change in vision or blurry vision ENMT: Denies: throat pain, hoarseness or swelling of lips/tongue Card: Denies: chest pain, palpitations, syncope, pre-syncope or dyspnea on exertion Resp: Denies: dyspnea, productive cough, non-productive cough, wheezing, change in phlegm color or hemoptysis GI: Denies: abdominal pain, nausea, vomiting or diarrhea : Denies: flank pain, dysuria, urinary frequency or urinary urgency Musc: Denies: neck pain, back pain or extremity pain Skin/Breast: Denies: rash or pruritus Neuro: Denies: headache(s), numbness in extremities, weakness in extremities or dizziness Peter/Lymph: Denies: easy bruising, easy bleeding, petechiae or purpura All/Imm: Denies: urticaria or throat swelling PFSH ED PFSH: Medical History Asthma COPD (chronic obstructive pulmonary disease) Emphysema, unspecified Essential (primary) hypertension GERD (gastroesophageal reflux disease) Hypothyroidism (acquired) Moderate aortic regurgitation Seizure disorder SVT (supraventricular tachycardia) Systolic murmur Surgical History H/O esophagogastroduodenoscopy 03/19/2019: Normal H/O thyroidectomy History of carpal tunnel surgery History of colonoscopy 03/19/2019: Normal repeat in 10 years Hx of section Social History Smoking and tobacco status: former smoker Quit status (tobacco): has quit using tobacco Year quit tobacco: 2019 - 1-5 ciggs/day Alcohol intake: never Lives independently: Yes Household members: none Housing: Apartment Current occupational status: disabled History of recent travel: No Current gender identity: Female Physical Exam Const: COMMON NORMALS: no acute distress, patient oriented x3, no limitations and alert GENERAL APPEARANCE: cooperative HENMT: COMMON NORMALS: normocephalic, atraumatic, external ears normal, EAC's normal and Normal external nose present HEAD & SCALP: normal to inspection, normocephalic and atraumatic FACE & SINUS: normal facial exam and face symmetric NOSE: Normal external nose present and Normal nares present EXTERNAL EAR: Yes external ears normal EXTERNAL AUDITORY CANAL: EAC's normal MOUTH: Normal oral and palatal mucosa present, lip normal and tongue normal Eye: COMMON NORMALS: Equal, round and reactive pupils present and conjunctivae normal GENERAL EYE: appearance normal, both eyes and all related structures ALIGNMENT: Yes alignment normal PERIORBITAL: periorbital findings normal EYELID: eyelids normal CONJUNCTIVA: Yes conjunctivae normal SCLERA: sclerae normal PUPIL: Yes Equal, round and reactive pupils present Neck/C-Spine: COMMON NORMALS: full ROM, no lymphadenopathy, supple, no meningeal signs and no JVD GENERAL: Yes normal visual inspection and Yes trachea midline Chest: COMMONS NORMALS: normal inspection of the chest and normal palpation of entire chest wall Resp: COMMON NORMALS: normal respiratory effort, No retractions, No use of accessory muscles and clear to auscultation bilaterally EFFORT & INSPECTION: Yes able to speak in complete sentences and Yes symmetric chest movement AUSCULTATION: clear to auscultation bilaterally, no crackles, no rales, no rhonchi and no wheezes Cardio: COMMON NORMALS: no JVD, regular rate, regular rhythm, S1 normal heart sound present and S2 normal heart sound present RATE: regular rate RHYTHM: regular rhythm HEART SOUNDS: S1 normal heart sound present, S2 normal heart sound present, no click, no gallops, no murmurs and no rubs GI: COMMON NORMALS: Soft to palpation and No hepatosplenomegaly present PALPATION: Yes Soft to palpation, No Tenderness to palpation present (GI), No Guarding due to palpation present (GI), No Rigid due to palpation, Yes No hepatosplenomegaly present, No Hernia present, No Palpable mass present and No Pulsatile mass present : COMMON NORMALS: Yes no CVA tenderness BLADDER/KIDNEY EXAM: Yes no CVA tenderness EXTERNAL FEMALE EXAM: No Hernia present Back/Pelvis: COMMON NORMALS: no CVA tenderness, thoracic and lumbar spine normal to inspection, no thoracic nor lumbar tenderness and thoraco-lumbar ROM normal Extremity: COMMON NORMALS: normal to inspection, full ROM, capillary refill normal, no joint enlargement, no clubbing, cyanosis or edema and no calf tenderness Neuro: COMMON NORMALS: patient oriented x3, CN's II-XII intact bilaterally, moves all extremities, no focal motor deficits and no sensory deficits noted SENSORIUM/ORIENTATION: Yes alert MENINGEAL SIGNS: Yes no meningeal signs SPEECH: speech normal Psych: COMMON NORMALS: mental status grossly normal, Normal thought process present, cooperative, normal affect, speech normal and activity/motor behavior normal SPEECH: Yes normal speech THOUGHT PROCESS: Normal thought process present Skin: COMMON NORMALS: no rashes or lesions noted, turgor normal, no jaundice, no petechiae and no mottling GENERAL SKIN EXAM: no rashes or lesions noted and turgor normal Course ED course: 2155 -Crystal is now declining an IV or IV fluids. She states she just wants something for her anxiety and to prevent seizures. I will change her Ativan from IV to p.o. Vital Signs: Vital signs: Vital Signs Temperature 98.0 F 10/24/19 21:06 Pulse Rate 78 10/24/19 23:28 Respiratory Rate 15 10/24/19 23:28 Blood Pressure 113/93 10/24/19 23:28 Pulse Oximetry 96 10/24/19 23:28 MDM - General Adult MDM Narrative: Medical decision making narrative: 9168 -patient's evaluation up to this point is been normal. After 2 mg p.o. Ativan she states that she feels much more relaxed and not nervous. She no longer feels as though a seizure is coming on. Her CMP is pending at this time. Turning over care to Justin Troncoso APN. Plan will be to discharge the patient she wants no further work-up as long as her CMP comes back normal. Lab Data: Labs: Lab Results 10/24/19 10/24/19 Range/Units 22:55 22:55 WBC 9.3 (4.0-10.0) 10^3/ uL RBC 4.15 (4.1-5.3) 10^6/u L Hgb 10.6 L (11.5-15.3) g/dL Hct 34.7 L (37.0-47.0) % MCV 83.6 (81-99) fL MCH 25.5 L (28.0-34.0) pg MCHC 30.5 (30.0-36.0) g/dL RDW 15.1 (12.1-15.1) % Plt Count 319 (130-400) 10^3/c mm MPV 10.2 (7.4-10.4) fL Neut % (Auto) 88.2 % Lymph % (Auto) 9.6 % Reynolds % (Auto) 1.5 % Eos % (Auto) 0.0 % Baso % (Auto) 0.1 % Neut # (Auto) 8.22 H (1.8-7.7) 10^3/u L Lymph # (Auto) 0.9 (0.8-4.8) 10^3/u L Reynolds # (Auto) 0.1 L (0.2-0.9) 10^3/u L Eos # (Auto) 0.0 (0.0-0.8) 10^3/u L Baso # (Auto) 0.0 (0.0-0.1) 10^3/u L Nucleated RBC % (a uto) 0 % Nucleated RBCs # 0.0 /100WBC Sodium 139 (136-145) mmol/L Potassium 3.6 (3.5-5.1) mmol/L Chloride 98 (98-107) mmol/L Carbon Dioxide 28 (22-29) mmol/L Anion Gap 16.6 (5-19) BUN 16 (6-20) mg/dL Creatinine 0.9 (0.5-0.9) mg/dL GFR Calculation 65.2 L (90-130) mL/min Glucose 187 H (65-115) mg/dL Calculated Osmolal ity 294 (285-295) mOsm/k g Calcium 8.4 L (8.5-10.5) mg/dL Total Bilirubin 1.0 (0.15-1.2) mg/dL AST 16 (0-32) U/L ALT 11 (0-33) U/L Alkaline Phosphata se 98 (35-105) IU/L Total Protein 7.2 (6.6-8.7) g/dL Albumin 4.2 (3.5-5.2) g/dL Globulin 3.0 (1.3-4.6) g/dL Discharge Plan Discharge Patient Disposition: Home Clinical Impression: Anxiety Arm pain Qualifiers: Laterality: left Qualified Code(s): M79.602 - Pain in left arm Condition: Stable Prescriptions: No Action montelukast [Singulair] 10 mg tablet 10 mg PO DAILY RF: 0 levetiracetam 250 mg tablet 250 mg PO BID RF: 0 aspirin [Adult Aspirin Regimen] 81 mg tablet,delayed release (DR/EC) 81 mg PO DAILY RF: 0 bumetanide 2 mg tablet 2 mg PO DAILY RF: 0 pantoprazole [Protonix] 40 mg tablet,delayed release (DR/EC) 40 mg PO DAILY RF: 0 atorvastatin 20 mg tablet 20 mg PO BEDTIME RF: 0 albuterol sulfate [ProAir HFA] 90 mcg/actuation HFA aerosol inhaler 2 puff INHALATION Q4H PRN (Reason: Shortness Of Breath) RF: 0 cetirizine 10 mg capsule 10 mg PO DAILY RF: 0 potassium chloride [Klor-Con] 20 mEq Packet 20 meq PO BID RF: 0 spironolactone 25 mg Tablet 25 mg PO DAILY RF: 0 magnesium oxide 400 mg magnesium Tablet 400 mg PO DAILY RF: 0 metoprolol tartrate 50 mg Tablet 50 mg PO BID RF: 0 ipratropium bromide 0.02 % Solution 1 ml inhalation PRN PRN (Reason: SOB) RF: 0 naproxen 500 mg Tablet 500 mg PO Q6H PRN (Reason: Pain) RF: 0 guaifenesin [Mucinex] 600 mg Tablet Extended Release 12hr 1,200 mg PO BID PRN (Reason: Congestion) RF: 0 metoclopramide HCl [Reglan] 10 mg tablet 10 mg PO Q6H PRN (Reason: nausea and vomiting) Qty: 20 RF: 0 sucralfate 1 gram tablet 1 g PO TID PRN (Reason: Stomach Upset) RF: 0 isosorbide mononitrate 30 mg Tablet Extended Release 24 Hr 30 mg PO DAILY RF: 0 levothyroxine 100 mcg Tablet 100 mcg PO DAILY RF: 0 hydroxyzine HCl 10 mg tablet 10 mg PO TID PRN (Reason: Anxiety) RF: 0 [place] 5-325 mg tablet 1 tab PO Q4H PRN (Reason: pain) Qty: 20 RF: 0 Discharge Orders: Discharge Order (Routine); Ordered 10/24/19 Ordered By: Raul Troncoso Referrals: Mary Fiore FNP [Primary Care Provider] - Discharge Diet: Usual diet Discharge Activity: Increase activity as tolerated Activity Restrictions/Additional Instructions: Continue routine medications. Follow-up with primary care tomorrow. Return to the emergency department for new concerns. Coding Level of Care Code ED Director Work for Chg Fwd Exam Comprehensive Documented by User: BRITTNEY Vale 10/24/19 23:58 HPI - General Adult General: Chief complaint: General Medical Stated complaint: POSS SEIZURE Time Seen by Provider: 10/24/19 21:08 PFS ED PFSH: Medical History Asthma COPD (chronic obstructive pulmonary disease) Emphysema, unspecified Essential (primary) hypertension GERD (gastroesophageal reflux disease) Hypothyroidism (acquired) Moderate aortic regurgitation Seizure disorder SVT (supraventricular tachycardia) Systolic murmur Surgical History H/O esophagogastroduodenoscopy 03/19/2019: Normal H/O thyroidectomy History of carpal tunnel surgery History of colonoscopy 03/19/2019: Normal repeat in 10 years Hx of section Social History Smoking and tobacco status: former smoker Quit status (tobacco): has quit using tobacco Year quit tobacco: 2019 - 1-5 ciggs/day Alcohol intake: never Lives independently: Yes Household members: none Housing: Apartment Current occupational status: disabled History of recent travel: No Current gender identity: Female Course Vital Signs: Vital signs: Vital Signs Temperature 98.0 F 10/24/19 21:06 Pulse Rate 78 10/24/19 23:28 Respiratory Rate 15 10/24/19 23:28 Blood Pressure 113/93 10/24/19 23:28 Pulse Oximetry 96 10/24/19 23:28 MDM - General Adult MDM Narrative: Medical decision making narrative: CMP was normal. Recommended patient follow-up with primary care for further evaluation and to continue routine care. Suggestive of arm pain and anxiety. Patient reported understanding of recommendations. Lab Data: Labs: Lab Results 10/24/19 10/24/19 Range/Units 22:55 22:55 WBC 9.3 (4.0-10.0) 10^3/ uL RBC 4.15 (4.1-5.3) 10^6/u L Hgb 10.6 L (11.5-15.3) g/dL Hct 34.7 L (37.0-47.0) % MCV 83.6 (81-99) fL MCH 25.5 L (28.0-34.0) pg MCHC 30.5 (30.0-36.0) g/dL RDW 15.1 (12.1-15.1) % Plt Count 319 (130-400) 10^3/c mm MPV 10.2 (7.4-10.4) fL Neut % (Auto) 88.2 % Lymph % (Auto) 9.6 % Reynolds % (Auto) 1.5 % Eos % (Auto) 0.0 % Baso % (Auto) 0.1 % Neut # (Auto) 8.22 H (1.8-7.7) 10^3/u L Lymph # (Auto) 0.9 (0.8-4.8) 10^3/u L Reynolds # (Auto) 0.1 L (0.2-0.9) 10^3/u L Eos # (Auto) 0.0 (0.0-0.8) 10^3/u L Baso # (Auto) 0.0 (0.0-0.1) 10^3/u L Nucleated RBC % (a uto) 0 % Nucleated RBCs # 0.0 /100WBC Sodium 139 (136-145) mmol/L Potassium 3.6 (3.5-5.1) mmol/L Chloride 98 (98-107) mmol/L Carbon Dioxide 28 (22-29) mmol/L Anion Gap 16.6 (5-19) BUN 16 (6-20) mg/dL Creatinine 0.9 (0.5-0.9) mg/dL GFR Calculation 65.2 L (90-130) mL/min Glucose 187 H (65-115) mg/dL Calculated Osmolal ity 294 (285-295) mOsm/k g Calcium 8.4 L (8.5-10.5) mg/dL Total Bilirubin 1.0 (0.15-1.2) mg/dL AST 16 (0-32) U/L ALT 11 (0-33) U/L Alkaline Phosphata se 98 (35-105) IU/L Total Protein 7.2 (6.6-8.7) g/dL Albumin 4.2 (3.5-5.2) g/dL Globulin 3.0 (1.3-4.6) g/dL Discharge Plan Discharge Patient Disposition: Home Clinical Impression: Anxiety Arm pain Qualifiers: Laterality: left Qualified Code(s): M79.602 - Pain in left arm Condition: Stable Prescriptions: No Action montelukast [Singulair] 10 mg tablet 10 mg PO DAILY RF: 0 levetiracetam 250 mg tablet 250 mg PO BID RF: 0 aspirin [Adult Aspirin Regimen] 81 mg tablet,delayed release (DR/EC) 81 mg PO DAILY RF: 0 bumetanide 2 mg tablet 2 mg PO DAILY RF: 0 pantoprazole [Protonix] 40 mg tablet,delayed release (DR/EC) 40 mg PO DAILY RF: 0 atorvastatin 20 mg tablet 20 mg PO BEDTIME RF: 0 albuterol sulfate [ProAir HFA] 90 mcg/actuation HFA aerosol inhaler 2 puff INHALATION Q4H PRN (Reason: Shortness Of Breath) RF: 0 cetirizine 10 mg capsule 10 mg PO DAILY RF: 0 potassium chloride [Klor-Con] 20 mEq Packet 20 meq PO BID RF: 0 spironolactone 25 mg Tablet 25 mg PO DAILY RF: 0 magnesium oxide 400 mg magnesium Tablet 400 mg PO DAILY RF: 0 metoprolol tartrate 50 mg Tablet 50 mg PO BID RF: 0 ipratropium bromide 0.02 % Solution 1 ml inhalation PRN PRN (Reason: SOB) RF: 0 naproxen 500 mg Tablet 500 mg PO Q6H PRN (Reason: Pain) RF: 0 guaifenesin [Mucinex] 600 mg Tablet Extended Release 12hr 1,200 mg PO BID PRN (Reason: Congestion) RF: 0 metoclopramide HCl [Reglan] 10 mg tablet 10 mg PO Q6H PRN (Reason: nausea and vomiting) Qty: 20 RF: 0 sucralfate 1 gram tablet 1 g PO TID PRN (Reason: Stomach Upset) RF: 0 isosorbide mononitrate 30 mg Tablet Extended Release 24 Hr 30 mg PO DAILY RF: 0 levothyroxine 100 mcg Tablet 100 mcg PO DAILY RF: 0 hydroxyzine HCl 10 mg tablet 10 mg PO TID PRN (Reason: Anxiety) RF: 0 [place] 5-325 mg tablet 1 tab PO Q4H PRN (Reason: pain) Qty: 20 RF: 0 Discharge Orders: Discharge Order (Routine); Ordered 10/24/19 Ordered By: Raul Troncoso Referrals: Mary Fiore FNP [Primary Care Provider] - Discharge Diet: Usual diet Discharge Activity: Increase activity as tolerated Activity Restrictions/Additional Instructions: Continue routine medications. Follow-up with primary care tomorrow. Return to the emergency department for new concerns. Coding Level of Care Code ED Director Work for Dc Fwd Exam Comprehensive
[2019-10-24 21:43] VITALS: BP 118/73; PULSE 79; RESP 16; O2SAT 95
[2019-10-24] MEDS: LORazepam 2 mg Tablet PO (22:07)
[2019-10-24 22:44] VITALS: BP 133/73; PULSE 72; RESP 16; O2SAT 98
[2019-10-24] MEDS: lidocaine 1% INJ 20 mL SUBCUT (22:58)
[2019-10-24 23:02] LABS: Basophils % 0.1 %; Hematocrit 34.7 % (37.0-47.0); Hemoglobin 10.6 g/dL (11.5-15.3); Lymphocytes # 0.9 10^3/uL (0.8-4.8); Lymphocytes % 9.6 %; Mean Corpuscular HGB Conc 30.5 g/dL (30.0-36.0); Mean Corpuscular Hemoglobin 25.5 pg (28.0-34.0); Mean Corpuscular Volume 83.6 fL (81-99); Mean Platelet Volume 10.2 fL (7.4-10.4); Monocytes # 0.1 10^3/uL (0.2-0.9); Monocytes % 1.5 %; Neutrophils # 8.22 10^3/uL (1.8-7.7); Neutrophils % 88.2 %; Nucleated Red Blood Cells % 0 %; Platelet Count 319 10^3/cmm (130-400); Red Blood Count 4.15 10^6/uL (4.1-5.3); Red Cell Distribution Width 15.1 % (12.1-15.1); White Blood Count 9.3 10^3/uL (4.0-10.0)
[2019-10-24 23:25] LABS: Alanine Aminotransferase 11 U/L (0-33); Albumin Level 4.2 g/dL (3.5-5.2); Alkaline Phosphatase 98 IU/L (35-105); Aspartate Amino Transferase 16 U/L (0-32); Blood Urea Nitrogen 16 mg/dL (6-20); Calcium 8.4 mg/dL (8.5-10.5); Carbon Dioxide 28 mmol/L (22-29); Chloride 98 mmol/L (98-107); Glomerular Filtration Rate 65.2 mL/min (90-130); Glucose 187 mg/dL (65-115); Osmolality Calculated 294 mOsm/kg (285-295); Sodium 139 mmol/L (136-145); Total Protein 7.2 g/dL (6.6-8.7)
[2019-10-24 23:28] VITALS: BP 113/93; PULSE 78; RESP 15; O2SAT 96
[2019-10-24 23:39] LABS: Anion Gap 16.6 (5-19); Potassium 3.6 mmol/L (3.5-5.1)
[2019-10-25 00:06] VITALS: BP 112/67; PULSE 85; RESP 18; O2SAT 96
== END 2019-10-25 00:07 | disposition home or self-care (01) ==
PROVIDERS: Emergency Medicine; Emergency Provider Nurse Practitioner Family; PCP Nurse Practitioner Family
DX: F41.9 Anxiety disorder, unspecified (principal); M79.602 Pain in left arm; Z79.82 Long term (current) use of aspirin; J44.9 Chronic obstructive pulmonary disease, unspecified; I10 Essential (primary) hypertension; Z87.891 Personal history of nicotine dependence
CPT/HCPCS: 12345; 80053; 85025; 96361; 96374; 96375; 99281; 99283

== ENCOUNTER 2019-10-26 10:13 | Emergency (ER) | payer MEDICARE, MEDICAID, SELFPAY ==
[2019-10-26 10:14] VITALS: BP 143/79; PULSE 72; RESP 20; TEMP 36.5; O2SAT 100; BMI 40.7
--- NOTE | 2019-10-26 10:27 | ED_ITS ---
HPI - Extremity Problem General: Chief complaint: Extremity Problem,Nontraumatic Stated complaint: LEFT ARM BLEEDING S/P SURGERY Time Seen by Provider: 10/26/19 10:21 Source: patient Mode of arrival: EMS Limitations: no limitations History of Present Illness: HPI Narrative: Recent surgery on [address] Brooks. Patient arrives EMS was sent by home health agency due to to saturation of dressing to left elbow. Patient has no acute injury no recent falls, drainage present on dressing is dried blood. Pain Consistency: intermittent Location: left Severity scale (1-10): 4 Quality: aching Associated symptoms: Reports no associated symptoms Review of Systems General: Reports: 10 or more systems reviewed and unremarkable except in HPI and below Skin/Breast: Reports: other (Saturation of dressing dried blood.) PFSH ED PFSH: Medical History (Updated 10/26/19 @ 10:36 by Alka Pierce APRN) Asthma COPD (chronic obstructive pulmonary disease) Emphysema, unspecified Essential (primary) hypertension GERD (gastroesophageal reflux disease) Hypothyroidism (acquired) Moderate aortic regurgitation Seizure disorder SVT (supraventricular tachycardia) Systolic murmur Surgical History H/O esophagogastroduodenoscopy 03/19/2019: Normal H/O thyroidectomy History of carpal tunnel surgery History of colonoscopy 03/19/2019: Normal repeat in 10 years Hx of section Social History Smoking and tobacco status: former smoker Quit status (tobacco): has quit using tobacco Year quit tobacco: 2019 - 1-5 ciggs/day Alcohol intake: never Lives independently: Yes Household members: none Housing: Apartment Current occupational status: disabled History of recent travel: No Current gender identity: Female Physical Exam Const: COMMON NORMALS: no acute distress, patient oriented x3 and alert GENERAL APPEARANCE: cooperative and well kempt HENMT: COMMON NORMALS: normocephalic, atraumatic, external ears normal and TM's normal bilaterally HEAD & SCALP: normocephalic and atraumatic EXTERNAL EAR: Yes external ears normal TYMPANIC MEMBRANE: TM's normal bilaterally MOUTH: Normal oral and palatal mucosa present Eye: COMMON NORMALS: Equal, round and reactive pupils present GENERAL EYE: appearance normal, both eyes and all related structures PUPIL: Yes Equal, round and reactive pupils present and Yes Pupil accommodation reflex normal Neck/C-Spine: COMMON NORMALS: full ROM, no lymphadenopathy, supple, no JVD, Thyroid normal and No carotid bruits GENERAL: Yes trachea midline THYROID: Thyroid normal, no masses and nontender Lymph: LYMPHATIC: no lymphadenopathy noted Chest: CHEST: Yes Symmetrical chest wall rise Resp: COMMON NORMALS: normal respiratory effort and clear to auscultation bilaterally EFFORT & INSPECTION: Yes able to speak in complete sentences AUSCULTATION: clear to auscultation bilaterally Cardio: COMMON NORMALS: no JVD, regular rhythm and No murmurs present (Cardio) PALPATION: normal PMI RHYTHM: regular rhythm GI: COMMON NORMALS: non-tender, no masses and no bruits INSPECTION: Yes normal to inspection, No scar and No striae AUSCULTATION: Yes normoactive bowel sounds PALPATION: No Tenderness to palpation present (GI), No Guarding due to palpation present (GI), No Rigid due to palpation, No Hernia present and No Rebound tenderness present PERCUSSION: normal to percussion : EXTERNAL FEMALE EXAM: No Hernia present Back/Pelvis: GENERAL BACK: No swelling and No tenderness THORACIC SPINE/UPPER BACK: No pain with ROM Extremity: COMMON NORMALS: normal to inspection, no clubbing, cyanosis or edema and no calf tenderness LEFT UPPER EXTREMITY: Yes elbow joint (Surgical incision clean and approximated Steri-Strips intact no bruising or bleeding noted) Neuro: COMMON NORMALS: patient oriented x3 and moves all extremities SENSORIUM/ORIENTATION: Yes alert CRANIAL NERVES: Yes CN normal except as noted GAIT: Yes Normal gait present MOTOR EXAM: 5/5 motor strength present throughout Psych: COMMON NORMALS: mental status grossly normal APPEARANCE: Yes well kempt Skin: COMMON NORMALS: turgor normal NARRATIVE SKIN EXAM: Normal coloration of skin GENERAL SKIN EXAM: turgor normal LESIONS: no lesions RASHES: no rashes TRAUMA: no lacerations or abrasions WOUNDS: Yes surgical site Details: margins Details: well approximated and well defined Course ED course: Sent for evaluation from home health nurse upon arrival to her home she found her to have a saturated dressing. She did not want to change the dressing her concern was with postoperative bleeding. Baseball sized area at left elbow of dried blood present on Tho wrap upon arrival to the ER. Upon further evaluation of incision wound is clean dry well approximated with no bleeding noted no drainage noted from incision. Crystal states her pain is the same as it has been following surgery, no acute injury. Crystal stated following the home health nurse concerned she felt very anxious and wanted it evaluated. Discussed wound care and expectations following surgery Crystal has a follow-up appointment with Dr. Brooks and agrees to monitor incision and keep it clean and dry. Vital Signs: Vital signs: Vital Signs Temperature 97.7 F 10/26/19 10:14 Pulse Rate 72 10/26/19 10:14 Respiratory Rate 20 H 10/26/19 10:14 Blood Pressure 143/79 10/26/19 10:14 Pulse Oximetry 100 10/26/19 10:14 Discharge Plan Discharge Patient Disposition: Home Clinical Impression: Presence of surgical incision, Problem involving surgical incision Condition: Stable Prescriptions: No Action montelukast [Singulair] 10 mg tablet 10 mg PO DAILY RF: 0 levetiracetam 250 mg tablet 250 mg PO BID RF: 0 aspirin [Adult Aspirin Regimen] 81 mg tablet,delayed release (DR/EC) 81 mg PO DAILY RF: 0 bumetanide 2 mg tablet 2 mg PO DAILY RF: 0 pantoprazole [Protonix] 40 mg tablet,delayed release (DR/EC) 40 mg PO DAILY RF: 0 atorvastatin 20 mg tablet 20 mg PO BEDTIME RF: 0 albuterol sulfate [ProAir HFA] 90 mcg/actuation HFA aerosol inhaler 2 puff INHALATION Q4H PRN (Reason: Shortness Of Breath) RF: 0 cetirizine 10 mg capsule 10 mg PO DAILY RF: 0 potassium chloride [Klor-Con] 20 mEq Packet 20 meq PO BID RF: 0 spironolactone 25 mg Tablet 25 mg PO DAILY RF: 0 magnesium oxide 400 mg magnesium Tablet 400 mg PO DAILY RF: 0 metoprolol tartrate 50 mg Tablet 50 mg PO BID RF: 0 ipratropium bromide 0.02 % Solution 1 ml inhalation PRN PRN (Reason: SOB) RF: 0 naproxen 500 mg Tablet 500 mg PO Q6H PRN (Reason: Pain) RF: 0 guaifenesin [Mucinex] 600 mg Tablet Extended Release 12hr 1,200 mg PO BID PRN (Reason: Congestion) RF: 0 metoclopramide HCl [Reglan] 10 mg tablet 10 mg PO Q6H PRN (Reason: nausea and vomiting) Qty: 20 RF: 0 sucralfate 1 gram tablet 1 g PO TID PRN (Reason: Stomach Upset) RF: 0 isosorbide mononitrate 30 mg Tablet Extended Release 24 Hr 30 mg PO DAILY RF: 0 levothyroxine 100 mcg Tablet 100 mcg PO DAILY RF: 0 hydroxyzine HCl 10 mg tablet 10 mg PO TID PRN (Reason: Anxiety) RF: 0 [place] 5-325 mg tablet 1 tab PO Q4H PRN (Reason: pain) Qty: 20 RF: 0 Discharge Orders: Discharge Order (Routine); Ordered 10/26/19 Ordered By: Alka Pierce Referrals: Mary Fiore FNP [Primary Care Provider] - Schuyler Brooks MD [Physician] - 1-3 days Discharge Diet: Usual diet Discharge Activity: Limit activity as instructed Coding Level of Care Code ED [employer] Coverer for Dc Serrato
--- NOTE | 2019-10-26 11:00 | PC.NURSE ---
3 steri strips appied to wound and island dressing applied, patient tolerated well
[2019-10-26 11:02] VITALS: BP 145/79; PULSE 65; RESP 18; O2SAT 100
== END 2019-10-26 11:07 | disposition home or self-care (01) ==
LOC: ER 11:04
PROVIDERS: Emergency Provider Nurse Practitioner Family; PCP Nurse Practitioner Family
DX: T81.9XXA Unspecified complication of procedure, initial encounter (principal); Z79.82 Long term (current) use of aspirin; J43.9 Emphysema, unspecified; I10 Essential (primary) hypertension; Z87.891 Personal history of nicotine dependence
CPT/HCPCS: 12345; 99281; 99283

== ENCOUNTER → 2019-11-12 14:34 | Outpatient (BNVA) | payer MEDICARE, MEDICAID, SELFPAY | PROVIDERS: PCP Nurse Practitioner Family; Visit Provider Specialist | DX: E03.9 Hypothyroidism, unspecified (principal); F43.10 Post-traumatic stress disorder, unspecified; F81.9 Developmental disorder of scholastic skills, unspecified; G56.22 Lesion of ulnar nerve, left upper limb; I35.1 Nonrheumatic aortic (valve) insufficiency; R56.9 Unspecified convulsions | CPT/HCPCS: 99213 ==

== ENCOUNTER 2019-11-15 14:36 | Outpatient (CLI) | payer MEDICARE, MEDICAID, SELFPAY ==
--- NOTE | 2019-11-15 14:41 | MM_ITS ---
WS: [id number] BILATERAL DIGITAL SCREENING MAMMOGRAPHY WITH CAD CLINICAL INFORMATION: SCREENING HISTORY: Screening mammogram. No current complaints. COMPARISON: TECHNIQUE: Bilateral CC and MLO views. FINDINGS: Scattered fibroglandular densities bilaterally. No suspicious focal mass, asymmetry, calcifications, or architectural distortion. No evidence of malignancy. A few stable punctate calcifications. MM/[place] [id number] IMPRESSION: BI-RADS: 2-Benign FOLLOW UP: 1 Year Follow-up Recommend return to annual screening mammography.
== END 2019-11-15 14:37 | disposition home or self-care (01) ==
LOC: RADSHAW 14:40
PROVIDERS: PCP Nurse Practitioner Family; Visit Provider Nurse Practitioner Family
DX: Z12.31 Encounter for screening mammogram for malignant neoplasm of breast (principal)
CPT/HCPCS: 77067

== ENCOUNTER 2019-11-17 19:51 | Emergency (ER) | payer MEDICARE, MEDICAID, SELFPAY ==
[2019-11-17 20:13] VITALS: BP 141/82; PULSE 61; RESP 16; TEMP 36.4; O2SAT 100; BMI 41.8
--- NOTE | 2019-11-17 20:46 | XRR_ITS ---
PROCEDURE INFORMATION: Exam: XR Chest, 1 View Exam date and time: 11/17/2019 8:49 PM Age: 53 years old Clinical indication: Shortness of breath; Chest pain; Type not specified; Additional info: SOB, cp TECHNIQUE: Imaging protocol: XR of the chest Views: 1 view. COMPARISON: CR XR chest 1V portable [id number] 10/01/2019 6:29 PM FINDINGS: Lungs: Unremarkable. No consolidation. Pleural space: Unremarkable. No pleural effusion. No pneumothorax. Heart/Mediastinum: Unremarkable. No cardiomegaly. Bones/joints: Unremarkable. XR/XR chest 1V portable [id number] IMPRESSION: No acute findings.
[2019-11-17 20:47] VITALS: BP 136/88; BP 142/70; PULSE 70; PULSE 84; RESP 18; RESP 20; O2SAT 97
--- NOTE | 2019-11-17 20:47 | ECG_ITS ---
[facility] Test Date: 2019-11-17 Pat Name: Crystal Pierre Department: Room: Gender: Female Cane Stripper: : 1965 Requested By: Ondina Garcia Order Number: [id number] Clemencia MD: Amanda Bourgeois M.D. Measurements Intervals [place] Rate: 66 P: -1 CA: 136 QRS: 5 QRSD: 110 T: -1 QT: 400 QTc: 422 Interpretive Statements SINUS RHYTHM WITH SINUS ARRHYTHMIA POSSIBLE LEFT VENTRICULAR HYPERTROPHY [VOLTAGE CRITERIA PLUS LAE OR QRS WIDENING] PROBABLE INFERIOR MYOCARDIAL INFARCTION [35 ms Q WAVE IN II/aVF], OF INDETERMINATE AGE Compared to ECG 10/01/2019 19:40:12 Myocardial infarct finding now present Electronically Signed On 11-18-2019 19:58:43 CDT by Amanda Bourgeois M.D. [id number]
[2019-11-17 21:17] VITALS: BP 144/78; PULSE 70; RESP 18; O2SAT 97
--- NOTE | 2019-11-17 21:33 | ED_ITS ---
Documented by User: Ondina Nathan MD 11/24/19 07:26 HPI - Dizziness General: Chief Complaint: Dizziness Stated Complaint: DIZZY/CP Time Seen by Provider: 11/17/19 20:35 History of Present Illness: HPI Narrative: This patient is a 53-year-old female well-known to the ER. She is here today with chest pain shortness of breath and lightheadedness that has been going on for about 3 days. Cardiac history as well as multiple other medical issues. She has had these symptoms in the past. She denies fevers, chills, cough. She does say her weight has been going up and she feels like she is retaining a lot of fluid. she has increased swelling in her feet and legs. MD elicited complaint: dizziness, lightheadedness and near syncope Associated symptoms: Reports chest pain and short of breath; Denies chills, headache(s), malaise, nausea or vomiting Associated neuro symptoms: Deny numbness in extremities Review of Systems General: Reports: 10 or more systems reviewed and unremarkable except in HPI and below Const: Denies: fever(s), chills, fatigue or malaise Eyes: Denies: change in vision ENMT: Denies: odynophagia Card: Reports: chest pain Resp: Reports: dyspnea; Denies: productive cough or non-productive cough GI: Denies: abdominal pain, nausea or vomiting : Denies: flank pain or difficulty voiding Musc: Denies: neck pain or back pain Skin/Breast: Denies: rash Neuro: Denies: headache(s), numbness in extremities or weakness in extremities Peter/Lymph: Denies: easy bruising or easy bleeding PFSH ED PFSH: Medical History Asthma COPD (chronic obstructive pulmonary disease) Emphysema, unspecified Essential (primary) hypertension GERD (gastroesophageal reflux disease) Hypothyroidism (acquired) Moderate aortic regurgitation Seizure disorder SVT (supraventricular tachycardia) Systolic murmur Surgical History H/O esophagogastroduodenoscopy 03/19/2019: Normal H/O thyroidectomy History of carpal tunnel surgery History of colonoscopy 03/19/2019: Normal repeat in 10 years Hx of section Social History Smoking and tobacco status: former smoker Quit status (tobacco): has quit using tobacco Year quit tobacco: 2019 - 1-5 ciggs/day Alcohol intake: never Lives independently: Yes Household members: none Housing: Apartment Current occupational status: disabled History of recent travel: No Current gender identity: Female Physical Exam Const: COMMON NORMALS: no acute distress, patient oriented x3, no limitations and alert GENERAL APPEARANCE: cooperative and comfortable HENMT: HEAD & SCALP: normal to inspection FACE & SINUS: normal facial exam Eye: GENERAL EYE: appearance normal, both eyes and all related structures Neck/C-Spine: COMMON NORMALS: supple, no meningeal signs and no JVD Chest: COMMONS NORMALS: normal inspection of the chest Resp: COMMON NORMALS: normal respiratory effort, No retractions, No use of accessory muscles and clear to auscultation bilaterally AUSCULTATION: clear to auscultation bilaterally OTHER: On her normal oxygen that she is at home Cardio: COMMON NORMALS: no JVD, regular rate, regular rhythm and No murmurs present (Cardio) RATE: regular rate RHYTHM: regular rhythm GI: COMMON NORMALS: Normal to inspection, nondistended, normoactive bowel sounds present, Soft to palpation and non-tender INSPECTION: Yes normal to inspection AUSCULTATION: Yes normoactive bowel sounds PALPATION: Yes Soft to palpation Back/Pelvis: COMMON NORMALS: thoracic and lumbar spine normal to inspection Extremity: COMMON NORMALS: normal to inspection Neuro: COMMON NORMALS: patient oriented x3, moves all extremities, no focal motor deficits and no sensory deficits noted SENSORIUM/ORIENTATION: Yes alert MENINGEAL SIGNS: Yes no meningeal signs Psych: COMMON NORMALS: mental status grossly normal, cooperative and normal affect Skin: COMMON NORMALS: no rashes or lesions noted and turgor normal GENERAL SKIN EXAM: no rashes or lesions noted and turgor normal Course ED course: Crystal does have some significant swelling in her legs. Her exam is otherwise unremarkable. She is in good spirits. She does not appear to be in any respiratory distress. Work-up underway and I will turn her care over to the oncoming provider. Vital Signs: Vital signs: Vital Signs Temperature 97.5 F L 11/17/19 20:13 Pulse Rate 65 11/18/19 02:51 Respiratory Rate 20 H 11/18/19 02:51 Blood Pressure 141/68 11/18/19 02:51 Pulse Oximetry 98 11/18/19 02:51 MDM - Dizziness Lab Data: Labs: Lab Results 11/17/19 11/17/19 11/17/19 Range/Units 20:31 21:50 21:50 WBC 8.0 (4.0-10.0) 10^3/ uL RBC 4.35 (4.1-5.3) 10^6/u L Hgb 11.1 L (11.5-15.3) g/dL Hct 38.0 (37.0-47.0) % MCV 87.4 (81-99) fL MCH 25.5 L (28.0-34.0) pg MCHC 29.2 L (30.0-36.0) g/dL RDW 15.5 H (12.1-15.1) % Plt Count 336 (130-400) 10^3/c mm MPV 10.5 H (7.4-10.4) fL Neut % (Auto) 55.3 % Lymph % (Auto) 32.2 % [place] % (Auto) 8.2 % Eos % (Auto) 3.0 % Baso % (Auto) 1.0 % Neut # (Auto) 4.41 (1.8-7.7) 10^3/u L Lymph # (Auto) 2.6 (0.8-4.8) 10^3/u L [place] # (Auto) 0.7 (0.2-0.9) 10^3/u L Eos # (Auto) 0.2 (0.0-0.8) 10^3/u L Baso # (Auto) 0.1 (0.0-0.1) 10^3/u L Nucleated RBC % (a uto) 0 % Nucleated RBCs # 0.0 /100WBC PT 13.30 (12.1-14.9) SECO NDS INR 0.98 (0.8-1.2) Sodium (136-145) mmol/L Potassium (3.5-5.1) mmol/L Chloride (98-107) mmol/L Carbon Dioxide (22-29) mmol/L Anion Gap (5-19) BUN (6-20) mg/dL Creatinine (0.5-0.9) mg/dL GFR Calculation (90-130) mL/min Glucose (65-115) mg/dL Calculated Osmolal ity (285-295) mOsm/k g Calcium (8.5-10.5) mg/dL Total Bilirubin (0.15-1.2) mg/dL AST (0-32) U/L ALT (0-33) U/L Alkaline Phosphata se (35-105) IU/L Troponin T Baselin e (0-10) ng/L Troponin T 120 Min [place] (0-10) ng/L Delta Troponin T (0-10) ABS# NT-Pro-B Natriuret Pep (0-125) pg/mL Total Protein (6.6-8.7) g/dL Albumin (3.5-5.2) g/dL Globulin (1.3-4.6) g/dL Urine Color Yellow (Yellow) Urine Appearance Clear (CLEAR) Urine pH 5 (5-7) Ur Specific Gravit y 1.015 (1.005-1.030) Urine Protein Neg (Negative) Urine Glucose (UA) Norm (Normal) Urine Ketones Negative (Negative) Urine Blood Trace H (Negative) Urine Nitrate Negative (Negative) Urine Bilirubin Neg (Negative) Urine Urobilinogen Norm (Negative) mg/dL Ur Leukocyte Jacqui ase Negative (Negative) Urine RBC 0-4 H (0-2) /hpf Urine WBC 0-4 H (0-5) /hpf Ur Squamous Epith Cells 10-15 H (0-5) /hpf Amorphous Sediment Not Reportable Urine Bacteria Trace (NONE) /hpf Urine Mucus Trace /hpf 11/17/19 11/17/19 11/17/19 Range/Units 21:50 21:50 23:45 WBC (4.0-10.0) 10^3/ uL RBC (4.1-5.3) 10^6/u L Hgb (11.5-15.3) g/dL Hct (37.0-47.0) % MCV (81-99) fL MCH (28.0-34.0) pg MCHC (30.0-36.0) g/dL RDW (12.1-15.1) % Plt Count (130-400) 10^3/c mm MPV (7.4-10.4) fL Neut % (Auto) % Lymph % (Auto) % [place] % (Auto) % Eos % (Auto) % Baso % (Auto) % Neut # (Auto) (1.8-7.7) 10^3/u L Lymph # (Auto) (0.8-4.8) 10^3/u L [place] # (Auto) (0.2-0.9) 10^3/u L Eos # (Auto) (0.0-0.8) 10^3/u L Baso # (Auto) (0.0-0.1) 10^3/u L Nucleated RBC % (a uto) % Nucleated RBCs # /100WBC PT (12.1-14.9) SECO NDS INR (0.8-1.2) Sodium 143 (136-145) mmol/L Potassium 4.7 (3.5-5.1) mmol/L Chloride 103 (98-107) mmol/L Carbon Dioxide 28 (22-29) mmol/L Anion Gap 16.7 (5-19) BUN 15 (6-20) mg/dL Creatinine 0.8 (0.5-0.9) mg/dL GFR Calculation 74.7 L (90-130) mL/min Glucose 107 (65-115) mg/dL Calculated Osmolal ity 297 H (285-295) mOsm/k g Calcium 9.7 (8.5-10.5) mg/dL Total Bilirubin 0.9 (0.15-1.2) mg/dL AST 10 (0-32) U/L ALT 6 (0-33) U/L Alkaline Phosphata se 102 (35-105) IU/L Troponin T Baselin e 21 H (0-10) ng/L Troponin T 120 Min [place] 16.70 H (0-10) ng/L Delta Troponin T -4.30 L (0-10) ABS# NT-Pro-B Natriuret Pep 131 H (0-125) pg/mL Total Protein 6.6 (6.6-8.7) g/dL Albumin 4.1 (3.5-5.2) g/dL Globulin 2.5 (1.3-4.6) g/dL Urine Color (Yellow) Urine Appearance (CLEAR) Urine pH (5-7) Ur Specific Gravit y (1.005-1.030) Urine Protein (Negative) Urine Glucose (UA) (Normal) Urine Ketones (Negative) Urine Blood (Negative) Urine Nitrate (Negative) Urine Bilirubin (Negative) Urine Urobilinogen (Negative) mg/dL Ur Leukocyte Jacqui ase (Negative) Urine RBC (0-2) /hpf Urine WBC (0-5) /hpf Ur Squamous Epith Cells (0-5) /hpf Amorphous Sediment Urine Bacteria (NONE) /hpf Urine Mucus /hpf Discharge Plan Discharge Patient Disposition: Home Clinical Impression: Chest pain Qualifiers: Chest pain type: unspecified Qualified Code(s): R07.9 - Chest pain, unspecified Condition: Stable Prescriptions: No Action montelukast [Singulair] 10 mg tablet 10 mg PO DAILY RF: 0 levetiracetam 250 mg tablet 250 mg PO BID RF: 0 aspirin [Adult Aspirin Regimen] 81 mg tablet,delayed release (DR/EC) 81 mg PO DAILY RF: 0 bumetanide 2 mg tablet 2 mg PO DAILY RF: 0 pantoprazole [Protonix] 40 mg tablet,delayed release (DR/EC) 40 mg PO DAILY RF: 0 atorvastatin 20 mg tablet 20 mg PO BEDTIME RF: 0 albuterol sulfate [ProAir HFA] 90 mcg/actuation HFA aerosol inhaler 2 puff INHALATION Q4H PRN (Reason: Shortness Of Breath) RF: 0 cetirizine 10 mg capsule 10 mg PO DAILY RF: 0 isosorbide mononitrate 30 mg tablet extended release 24 hr 30 mg PO DAILY Qty: 30 RF: 0 potassium chloride [Klor-Con] 20 mEq Packet 20 meq PO BID RF: 0 spironolactone 25 mg Tablet 25 mg PO DAILY RF: 0 magnesium oxide 400 mg magnesium Tablet 400 mg PO DAILY RF: 0 metoprolol tartrate 50 mg Tablet 50 mg PO BID RF: 0 ipratropium bromide 0.02 % Solution 1 ml inhalation PRN PRN (Reason: SOB) RF: 0 naproxen 500 mg Tablet 500 mg PO Q6H PRN (Reason: Pain) RF: 0 guaifenesin [Mucinex] 600 mg Tablet Extended Release 12hr 1,200 mg PO BID PRN (Reason: Congestion) RF: 0 metoclopramide HCl [Reglan] 10 mg tablet 10 mg PO Q6H PRN (Reason: nausea and vomiting) Qty: 20 RF: 0 sucralfate 1 gram tablet 1 g PO TID PRN (Reason: Stomach Upset) RF: 0 levothyroxine 100 mcg Tablet 100 mcg PO DAILY RF: 0 hydroxyzine HCl 10 mg tablet 10 mg PO TID PRN (Reason: Anxiety) RF: 0 [place] 5-325 mg tablet 1 tab PO Q4H PRN (Reason: pain) Qty: 20 RF: 0 Discharge Orders: Discharge Order (Routine); Ordered 11/18/19 Ordered By: Shanique Chavez Referrals: JAKE RYAN [employer] [Primary Care Provider] - 1-3 days Discharge Diet: Usual diet Discharge Activity: Resume usual activity Patient Instructions: Chest Pain (ED) Activity Restrictions/Additional Instructions: Follow up with your primary care provider to discuss the fluid retention and your chest pain and dizziness. Return to the ED if new or worse symptoms. Please return to the ER immediately for any of the signs or symptoms listed on your discharge instruction sheets, worsening/changing of your symptoms, you are not getting better as quickly as expected, or for ANY other cause or concerns. You have been offered further evaluation and care here including admission for formal cardiac testing but you have declined. Of course any heart problem can be life-threatening so if your symptoms change or worsen in any way please return to the ER for recheck. Be certain to follow-up with your doctor as soon as possible for recheck. Discharge Date/Time: 11/18/19 01:35 Coding Level of Care Code ED Transportation Program Director for Chg Fwd Exam Comprehensive Documented by User: Shanique Chavez 11/18/19 01:00 HPI - Dizziness General: Chief Complaint: Dizziness Stated Complaint: DIZZY/CP Time Seen by Provider: 11/17/19 20:35 PFSH ED PFSH: Medical History Asthma COPD (chronic obstructive pulmonary disease) Emphysema, unspecified Essential (primary) hypertension GERD (gastroesophageal reflux disease) Hypothyroidism (acquired) Moderate aortic regurgitation Seizure disorder SVT (supraventricular tachycardia) Systolic murmur Surgical History H/O esophagogastroduodenoscopy 03/19/2019: Normal H/O thyroidectomy History of carpal tunnel surgery History of colonoscopy 03/19/2019: Normal repeat in 10 years Hx of section Social History Smoking and tobacco status: former smoker Quit status (tobacco): has quit using tobacco Year quit tobacco: 2018 1-5 ciggs/day Alcohol intake: never Lives independently: Yes Household members: none Housing: Apartment Current occupational status: disabled History of recent travel: No Current gender identity: Female Course Vital Signs: Vital signs: Vital Signs Temperature 97.5 F L 11/17/19 20:13 Pulse Rate 65 11/18/19 02:51 Respiratory Rate 20 H 11/18/19 02:51 Blood Pressure 141/68 11/18/19 02:51 Pulse Oximetry 98 11/18/19 02:51 MDM - Dizziness MDM Narrative: Medical decision making narrative: 0055 -patient's care turned over to me at change of shift from Dr. Nathan. Please see her note for history, physical exam and medical decision-making notes. Patient tells me her pain is gone. She has had multiple other episodes like this in the past. Patient feels as though it could be her anxiety. I have recommended and offered to admit the patient to the hospital for further testing but she declines. She wants to go home. She says she has a follow-up appointment very soon with her doctor. She does understand that a heart attack could possibly threaten her and even cause to her life but despite this she declines further testing and would like to be discharged. She does agree to return should her symptoms change or worsen. The patient's EKGs are both at their normal and her troponins are in the normal range for her and have had a negative delta. She declines staying for a third troponin for risk stratification. Again the patient was offered and I recommended she stay for formal cardiac rule a stress test but she would rather follow-up with her regular doctor. Lab Data: Attestation: I reviewed the patient's lab results. Labs: Lab Results 11/17/19 11/17/19 11/17/19 Range/Units 20:31 21:50 21:50 WBC 8.0 (4.0-10.0) 10^3/ uL RBC 4.35 (4.1-5.3) 10^6/u L Hgb 11.1 L (11.5-15.3) g/dL Hct 38.0 (37.0-47.0) % MCV 87.4 (81-99) fL MCH 25.5 L (28.0-34.0) pg MCHC 29.2 L (30.0-36.0) g/dL RDW 15.5 H (12.1-15.1) % Plt Count 336 (130-400) 10^3/c mm MPV 10.5 H (7.4-10.4) fL Neut % (Auto) 55.3 % Lymph % (Auto) 32.2 % [place] % (Auto) 8.2 % Eos % (Auto) 3.0 % Baso % (Auto) 1.0 % Neut # (Auto) 4.41 (1.8-7.7) 10^3/u L Lymph # (Auto) 2.6 (0.8-4.8) 10^3/u L [place] # (Auto) 0.7 (0.2-0.9) 10^3/u L Eos # (Auto) 0.2 (0.0-0.8) 10^3/u L Baso # (Auto) 0.1 (0.0-0.1) 10^3/u L Nucleated RBC % (a uto) 0 % Nucleated RBCs # 0.0 /100WBC PT 13.30 (12.1-14.9) SECO NDS INR 0.98 (0.8-1.2) Sodium (136-145) mmol/L Potassium (3.5-5.1) mmol/L Chloride (98-107) mmol/L Carbon Dioxide (22-29) mmol/L Anion Gap (5-19) BUN (6-20) mg/dL Creatinine (0.5-0.9) mg/dL GFR Calculation (90-130) mL/min Glucose (65-115) mg/dL Calculated Osmolal ity (285-295) mOsm/k g Calcium (8.5-10.5) mg/dL Total Bilirubin (0.15-1.2) mg/dL AST (0-32) U/L ALT (0-33) U/L Alkaline Phosphata se (35-105) IU/L Troponin T Baselin e (0-10) ng/L Troponin T 120 Min [place] (0-10) ng/L Delta Troponin T (0-10) ABS# NT-Pro-B Natriuret Pep (0-125) pg/mL Total Protein (6.6-8.7) g/dL Albumin (3.5-5.2) g/dL Globulin (1.3-4.6) g/dL Urine Color Yellow (Yellow) Urine Appearance Clear (CLEAR) Urine pH 5 (5-7) Ur Specific Gravit y 1.015 (1.005-1.030) Urine Protein Neg (Negative) Urine Glucose (UA) Norm (Normal) Urine Ketones Negative (Negative) Urine Blood Trace H (Negative) Urine Nitrate Negative (Negative) Urine Bilirubin Neg (Negative) Urine Urobilinogen Norm (Negative) mg/dL Ur Leukocyte Jacqui ase Negative (Negative) Urine RBC 0-4 H (0-2) /hpf Urine WBC 0-4 H (0-5) /hpf Ur Squamous Epith Cells 10-15 H (0-5) /hpf Amorphous Sediment Not Reportable Urine Bacteria Trace (NONE) /hpf Urine Mucus Trace /hpf 11/17/19 11/17/19 11/17/19 Range/Units 21:50 21:50 23:45 WBC (4.0-10.0) 10^3/ uL RBC (4.1-5.3) 10^6/u L Hgb (11.5-15.3) g/dL Hct (37.0-47.0) % MCV (81-99) fL MCH (28.0-34.0) pg MCHC (30.0-36.0) g/dL RDW (12.1-15.1) % Plt Count (130-400) 10^3/c mm MPV (7.4-10.4) fL Neut % (Auto) % Lymph % (Auto) % [place] % (Auto) % Eos % (Auto) % Baso % (Auto) % Neut # (Auto) (1.8-7.7) 10^3/u L Lymph # (Auto) (0.8-4.8) 10^3/u L [place] # (Auto) (0.2-0.9) 10^3/u L Eos # (Auto) (0.0-0.8) 10^3/u L Baso # (Auto) (0.0-0.1) 10^3/u L Nucleated RBC % (a uto) % Nucleated RBCs # /100WBC PT (12.1-14.9) SECO NDS INR (0.8-1.2) Sodium 143 (136-145) mmol/L Potassium 4.7 (3.5-5.1) mmol/L Chloride 103 (98-107) mmol/L Carbon Dioxide 28 (22-29) mmol/L Anion Gap 16.7 (5-19) BUN 15 (6-20) mg/dL Creatinine 0.8 (0.5-0.9) mg/dL GFR Calculation 74.7 L (90-130) mL/min Glucose 107 (65-115) mg/dL Calculated Osmolal ity 297 H (285-295) mOsm/k g Calcium 9.7 (8.5-10.5) mg/dL Total Bilirubin 0.9 (0.15-1.2) mg/dL AST 10 (0-32) U/L ALT 6 (0-33) U/L Alkaline Phosphata se 102 (35-105) IU/L Troponin T Baselin e 21 H (0-10) ng/L Troponin T 120 Min [place] 16.70 H (0-10) ng/L Delta Troponin T -4.30 L (0-10) ABS# NT-Pro-B Natriuret Pep 131 H (0-125) pg/mL Total Protein 6.6 (6.6-8.7) g/dL Albumin 4.1 (3.5-5.2) g/dL Globulin 2.5 (1.3-4.6) g/dL Urine Color (Yellow) Urine Appearance (CLEAR) Urine pH (5-7) Ur Specific Gravit y (1.005-1.030) Urine Protein (Negative) Urine Glucose (UA) (Normal) Urine Ketones (Negative) Urine Blood (Negative) Urine Nitrate (Negative) Urine Bilirubin (Negative) Urine Urobilinogen (Negative) mg/dL Ur Leukocyte Jacqui ase (Negative) Urine RBC (0-2) /hpf Urine WBC (0-5) /hpf Ur Squamous Epith Cells (0-5) /hpf Amorphous Sediment Urine Bacteria (NONE) /hpf Urine Mucus /hpf Imaging Data^: CXR: Attestation: I personally reviewed and interpreted this imaging study as follows: My impression: Cardiomegaly otherwise no acute cardiopulmonary findings. EKG Data^: EKG 1: Attestation: I personally reviewed and interpreted this EKG as follows: EKG interpretation date: 11/18/19 EKG interpretation time: 20:05 Interpretation: Normal sinus rhythm at 61 beats a minute, normal axis, no blocks, normal intervals, no acute ST or T wave changes. EKG 2: Attestation: I personally reviewed and interpreted this EKG as follows: EKG interpretation date: 11/18/19 EKG interpretation time: 23:38 Interpretation: Normal sinus rhythm at 66 beats a minute, normal axis, no blocks, normal intervals, no acute ST-T wave changes. Unchanged from previous. Discharge Plan Discharge Patient Disposition: Home Clinical Impression: Chest pain Qualifiers: Chest pain type: unspecified Qualified Code(s): R07.9 - Chest pain, unspecified Condition: Stable Prescriptions: No Action montelukast [Singulair] 10 mg tablet 10 mg PO DAILY RF: 0 levetiracetam 250 mg tablet 250 mg PO BID RF: 0 aspirin [Adult Aspirin Regimen] 81 mg tablet,delayed release (DR/EC) 81 mg PO DAILY RF: 0 bumetanide 2 mg tablet 2 mg PO DAILY RF: 0 pantoprazole [Protonix] 40 mg tablet,delayed release (DR/EC) 40 mg PO DAILY RF: 0 atorvastatin 20 mg tablet 20 mg PO BEDTIME RF: 0 albuterol sulfate [ProAir HFA] 90 mcg/actuation HFA aerosol inhaler 2 puff INHALATION Q4H PRN (Reason: Shortness Of Breath) RF: 0 cetirizine 10 mg capsule 10 mg PO DAILY RF: 0 isosorbide mononitrate 30 mg tablet extended release 24 hr 30 mg PO DAILY Qty: 30 RF: 0 potassium chloride [Klor-Con] 20 mEq Packet 20 meq PO BID RF: 0 spironolactone 25 mg Tablet 25 mg PO DAILY RF: 0 magnesium oxide 400 mg magnesium Tablet 400 mg PO DAILY RF: 0 metoprolol tartrate 50 mg Tablet 50 mg PO BID RF: 0 ipratropium bromide 0.02 % Solution 1 ml inhalation PRN PRN (Reason: SOB) RF: 0 naproxen 500 mg Tablet 500 mg PO Q6H PRN (Reason: Pain) RF: 0 guaifenesin [Mucinex] 600 mg Tablet Extended Release 12hr 1,200 mg PO BID PRN (Reason: Congestion) RF: 0 metoclopramide HCl [Reglan] 10 mg tablet 10 mg PO Q6H PRN (Reason: nausea and vomiting) Qty: 20 RF: 0 sucralfate 1 gram tablet 1 g PO TID PRN (Reason: Stomach Upset) RF: 0 levothyroxine 100 mcg Tablet 100 mcg PO DAILY RF: 0 hydroxyzine HCl 10 mg tablet 10 mg PO TID PRN (Reason: Anxiety) RF: 0 [place] 5-325 mg tablet 1 tab PO Q4H PRN (Reason: pain) Qty: 20 RF: 0 Discharge Orders: Discharge Order (Routine); Ordered 11/18/19 Ordered By: Shanique Chavez Referrals: JAKE RYAN, [employer] [Primary Care Provider] - 1-3 days Discharge Diet: Usual diet Discharge Activity: Resume usual activity Patient Instructions: Chest Pain (ED) Activity Restrictions/Additional Instructions: Follow up with your primary care provider to discuss the fluid retention and your chest pain and dizziness. Return to the ED if new or worse symptoms. Please return to the ER immediately for any of the signs or symptoms listed on your discharge instruction sheets, worsening/changing of your symptoms, you are not getting better as quickly as expected, or for ANY other cause or concerns. You have been offered further evaluation and care here including admission for formal cardiac testing but you have declined. Of course any heart problem can be life-threatening so if your symptoms change or worsen in any way please return to the ER for recheck. Be certain to follow-up with your doctor as soon as possible for recheck. Discharge Date/Time: 11/18/19 01:35 Coding Level of Care Code ED Transportation Program Director for Dc Fwd Exam Comprehensive
[2019-11-17 21:58] LABS: Basophils # 0.1 10^3/uL (0.0-0.1); Eosinophils # 0.2 10^3/uL (0.0-0.8); Hemoglobin 11.1 g/dL (11.5-15.3); Lymphocytes # 2.6 10^3/uL (0.8-4.8); Lymphocytes % 32.2 %; Mean Corpuscular HGB Conc 29.2 g/dL (30.0-36.0); Mean Corpuscular Hemoglobin 25.5 pg (28.0-34.0); Mean Corpuscular Volume 87.4 fL (81-99); Mean Platelet Volume 10.5 fL (7.4-10.4); Monocytes # 0.7 10^3/uL (0.2-0.9); Monocytes % 8.2 %; Neutrophils # 4.41 10^3/uL (1.8-7.7); Neutrophils % 55.3 %; Nucleated Red Blood Cells % 0 %; Platelet Count 336 10^3/cmm (130-400); Red Blood Count 4.35 10^6/uL (4.1-5.3); Red Cell Distribution Width 15.5 % (12.1-15.1)
[2019-11-17 22:00] VITALS: BP 146/70; PULSE 72; RESP 20; O2SAT 98
[2019-11-17 22:21] LABS: INR 0.98 (0.8-1.2)
[2019-11-17 22:32] LABS: Troponin(5th) Baseline 21 ng/L (0-10)
[2019-11-17 22:42] LABS: Alanine Aminotransferase 6 U/L (0-33); Albumin Level 4.1 g/dL (3.5-5.2); Alkaline Phosphatase 102 IU/L (35-105); Anion Gap 16.7 (5-19); Aspartate Amino Transferase 10 U/L (0-32); Blood Urea Nitrogen 15 mg/dL (6-20); Calcium 9.7 mg/dL (8.5-10.5); Carbon Dioxide 28 mmol/L (22-29); Chloride 103 mmol/L (98-107); Globulin 2.5 g/dL (1.3-4.6); Glomerular Filtration Rate 74.7 mL/min (90-130); Glucose 107 mg/dL (65-115); NT Pro B Type Natriuretic Pept 131 pg/mL (0-125); Osmolality Calculated 297 mOsm/kg (285-295); Potassium 4.7 mmol/L (3.5-5.1); Sodium 143 mmol/L (136-145); Total Bilirubin 0.9 mg/dL (0.15-1.2); Total Protein 6.6 g/dL (6.6-8.7)
[2019-11-17 23:00] VITALS: BP 132/78; RESP 20; O2SAT 97
[2019-11-17 23:03] LABS: Add Urine Microscopic? YES; Bilirubin Urine Neg (Negative); Blood Urine Trace (Negative); Glucose Urine UA Norm (Normal); Ketones Urine Negative (Negative); Leukocyte Esterase Urine Negative (Negative); Nitrate Urine Negative (Negative); Protein Urine Neg (Negative); Specific Gravity, Urine 1.015 (1.005-1.030); Urine Appearance Clear (CLEAR); Urine Color Yellow (Yellow); Urobilinogen Urine Norm (Negative); pH Urine 5 (5-7)
[2019-11-17 23:05] LABS: Add Urine Culture? No; Bacteria Urine TRACE /hpf; Mucus Urine TRACE /hpf; RBC Urine 0-4 /hpf (0-2); WBC Urine 0-4 /hpf (0-5)
[2019-11-18 00:17] VITALS: BP 136/70; PULSE 76; RESP 20; O2SAT 98
[2019-11-18 01:17] VITALS: BP 142/70; PULSE 68; RESP 20; O2SAT 97
[2019-11-18 02:51] VITALS: BP 141/68; PULSE 65; RESP 20; O2SAT 98
== END 2019-11-18 01:35 | disposition home or self-care (01) ==
PROVIDERS: Emergency Medicine; Emergency Provider Emergency Medicine; PCP Nurse Practitioner Family
DX: R07.9 Chest pain, unspecified (principal); Z79.82 Long term (current) use of aspirin; J44.9 Chronic obstructive pulmonary disease, unspecified; I10 Essential (primary) hypertension; Z87.891 Personal history of nicotine dependence
CPT/HCPCS: 12345; 71045; 80053; 81001; 83880; 84484; 85025; 85610; 93005; 99282; 99284

== ENCOUNTER → 2019-11-29 16:01 | Outpatient (BNVA) | payer MEDICARE, MEDICAID, SELFPAY | PROVIDERS: PCP Nurse Practitioner Family; Visit Provider Internal Medicine | DX: E03.9 Hypothyroidism, unspecified (principal); F81.9 Developmental disorder of scholastic skills, unspecified; H53.2 Diplopia; R94.6 Abnormal results of thyroid function studies | CPT/HCPCS: 99204 ==

== ENCOUNTER 2019-12-11 19:40 | Emergency (ER) | payer MEDICARE, MEDICAID, SELFPAY ==
[2019-12-11 19:45] VITALS: BP 156/79; PULSE 70; RESP 18; TEMP 36.4; O2SAT 100; BMI 42.7
--- NOTE | 2019-12-11 19:53 | ECG_ITS ---
[facility] Test Date: 2019-12-11 Pat Name: Crystal Pierre Department: Room: Gender: Female News Analyst: : 1965 Requested By: Tenisha Casey Order Number: [id number] Khanna MD: Amanda Bourgeois M.D. Measurements Intervals [place] Rate: 71 P: 53 AR: 138 QRS: 39 QRSD: 114 T: 50 QT: 390 QTc: 424 Interpretive Statements SINUS RHYTHM MODERATE INTRAVENTRICULAR CONDUCTION DELAY [110+ ms QRS DURATION] Compared to ECG 11/17/2019 23:38:42 Intraventricular conduction delay now present Sinus arrhythmia no longer present Myocardial infarct finding no longer present Electronically Signed On 12-11-2019 22:33:51 STITCHING MACHINE OPERATOR by Amanda Bourgeois M.D. [id number]
--- NOTE | 2019-12-11 20:00 | XR_ITS ---
WS: [id number] XR chest 1V portable [id number] REASON FOR EXAM: sob FINDINGS: Compared to the previous examination of 11/17/2019, no significant interval change is identified. The heart and mediastinum are within normal limits. No active pulmonary parenchymal or pleural disease. No significant abnormality of the bony thorax. XR/XR chest 1V portable [id number] IMPRESSION: No acute chest abnormality.
--- NOTE | 2019-12-11 20:00 | W.ED.DIZZY ---
HPI - Dizziness General: Chief Complaint: Dizziness Stated Complaint: dizzy Time Seen by Provider: 12/11/19 19:52 Source: patient Mode of arrival: ambulatory Limitations: no limitations History of Present Illness: HPI Narrative: 53-year-old female who is well-known to the ER states she has had dizziness over the last 2 to 3 days. States she just is felt lightheaded. She denies any vomiting or diarrhea. Denies any chest pain or shortness of breath. Patient denies any worsening or improving factors. She states she is also on a rash in her breast she has noticed recently. 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 Social History Smoking and tobacco status: former smoker Quit status (tobacco): has quit using tobacco Year quit tobacco: 2018-5 ciggs/day Alcohol intake: never Lives independently: Yes Household members: none Housing: Apartment Current occupational status: disabled History of recent travel: No Current gender identity: Female Physical Exam Const: COMMON NORMALS: no acute distress, patient oriented x3 and healthy appearing HENMT: COMMON NORMALS: normocephalic and atraumatic HEAD & SCALP: normocephalic and atraumatic Eye: COMMON NORMALS: Equal, round and reactive pupils present and EOMs intact bilaterally PUPIL: Yes Equal, round and reactive pupils present Neck/C-Spine: COMMON NORMALS: full ROM and supple Chest: COMMONS NORMALS: normal inspection of the chest and normal palpation of entire chest wall Resp: COMMON NORMALS: normal respiratory effort, No retractions, No use of accessory muscles and clear to auscultation bilaterally AUSCULTATION: clear to auscultation bilaterally Cardio: COMMON NORMALS: regular rate, regular rhythm and No murmurs present (Cardio) RATE: regular rate RHYTHM: regular rhythm GI: COMMON NORMALS: Normal to inspection, nondistended, normoactive bowel sounds present, Soft to palpation, non-tender and no masses PALPATION: Yes Soft to palpation Extremity: COMMON NORMALS: normal to inspection and full ROM Neuro: COMMON NORMALS: patient oriented x3, moves all extremities and no focal motor deficits Psych: COMMON NORMALS: mental status grossly normal, Normal thought process present and cooperative THOUGHT PROCESS: Normal thought process present Skin: COMMON NORMALS: no rashes or lesions noted and no wounds NARRATIVE SKIN EXAM: Rash under breasts consistent with Angelique GENERAL SKIN EXAM: no rashes or lesions noted Course Vital Signs: Vital signs: Vital Signs Temperature 97.5 F L 12/11/19 19:45 Pulse Rate 74 12/11/19 22:28 Respiratory Rate 17 12/11/19 22:28 Blood Pressure 139/69 12/11/19 22:28 Pulse Oximetry 97 12/11/19 22:28 MDM - Dizziness MDM Narrative: Medical decision making narrative: 53-year-old who presented here with dizziness that is since resolved. Patient is well-appearing here and lab work is all normal. She is stable for discharge and is to follow-up with PCP and return if worsening. Lab Data: Labs: Lab Results 12/11/19 12/11/19 Range/Units 02:00 02:00 WBC 6.2 (4.0-10.0) 10^3/ uL RBC 3.83 L (4.1-5.3) 10^6/u L Hgb 10.0 L (11.5-15.3) g/dL Hct 36.1 L (37.0-47.0) % MCV 94.3 (81-99) fL MCH 26.1 L (28.0-34.0) pg MCHC 27.7 L (30.0-36.0) g/dL RDW 15.9 H (12.1-15.1) % Plt Count 73 L (130-400) 10^3/c mm MPV 11.8 H (7.4-10.4) fL Neut % (Auto) 54.7 % Lymph % (Auto) 32.1 % [place]ountain % (Auto) 8.4 % Eos % (Auto) 3.4 % Baso % (Auto) 1.1 % Neut # (Auto) 3.39 (1.8-7.7) 10^3/u L Lymph # (Auto) 2.0 (0.8-4.8) 10^3/u L Fountain # (Auto) 0.5 (0.2-0.9) 10^3/u L Eos # (Auto) 0.2 (0.0-0.8) 10^3/u L Baso # (Auto) 0.1 (0.0-0.1) 10^3/u L Nucleated RBC % (a uto) 0.3 % Nucleated RBCs # 0.0 /100WBC Sodium 136 (136-145) mmol/L Potassium 4.8 (3.5-5.1) mmol/L Chloride 103 (98-107) mmol/L Carbon Dioxide 18 L (22-29) mmol/L Anion Gap 19.8 H (5-19) BUN 16 (6-20) mg/dL Creatinine 0.9 (0.5-0.9) mg/dL GFR Calculation 65.2 L (90-130) mL/min Glucose 99 (65-115) mg/dL Calculated Osmolal ity 283 L (285-295) mOsm/k g Calcium 8.6 (8.5-10.5) mg/dL Total Bilirubin 0.7 (0.15-1.2) mg/dL AST 35 H (0-32) U/L ALT 14 (0-33) U/L Alkaline Phosphata se 100 (35-105) IU/L Total Protein 6.9 (6.6-8.7) g/dL Albumin 3.9 (3.5-5.2) g/dL Globulin 3.0 (1.3-4.6) g/dL Imaging Data^: CXR: Attestation: I personally reviewed and interpreted this imaging study as follows: My impression: no aucte abnormality EKG Data^: EKG 1: Attestation: I personally reviewed and interpreted this EKG as follows: EKG interpretation date: 12/11/19 EKG interpretation time: 20:01 Interpretation: nsr hr [address] or t wave abnormalities qrs 114 qtc 412 Discharge Plan Discharge Patient Disposition: Home Clinical Impression: Dizziness Condition: Stable Prescriptions: No Action montelukast [Singulair] 10 mg tablet 10 mg PO DAILY RF: 0 levetiracetam 250 mg tablet 250 mg PO BID RF: 0 aspirin [Adult Aspirin Regimen] 81 mg tablet,delayed release (DR/EC) 81 mg PO DAILY RF: 0 bumetanide 2 mg tablet 2 mg PO DAILY RF: 0 pantoprazole [Protonix] 40 mg tablet,delayed release (DR/EC) 40 mg PO DAILY RF: 0 atorvastatin 20 mg tablet 20 mg PO BEDTIME RF: 0 albuterol sulfate [ProAir HFA] 90 mcg/actuation HFA aerosol inhaler 2 puff INHALATION Q4H PRN (Reason: Shortness Of Breath) RF: 0 cetirizine 10 mg capsule 10 mg PO DAILY RF: 0 isosorbide mononitrate 30 mg tablet extended release 24 hr 30 mg PO DAILY Qty: 30 RF: 0 potassium chloride [Klor-Con] 20 mEq Packet 20 meq PO BID RF: 0 metoprolol succinate 50 mg tablet extended release 24 hr 50 mg PO BID RF: 0 Anoro Ellipta 62.5-25 mcg/actuation blister with device 1 inh INHALATION QAM RF: 0 spironolactone 25 mg Tablet 25 mg PO DAILY RF: 0 magnesium oxide 400 mg magnesium Tablet 400 mg PO DAILY RF: 0 naproxen 500 mg Tablet 500 mg PO Q6H PRN (Reason: Pain) RF: 0 guaifenesin [Mucinex] 600 mg Tablet Extended Release 12hr 1,200 mg PO BID PRN (Reason: Congestion) RF: 0 metoclopramide HCl [Reglan] 10 mg tablet 10 mg PO Q6H PRN (Reason: nausea and vomiting) Qty: 20 RF: 0 sucralfate 1 gram tablet 1 g PO TID PRN (Reason: Stomach Upset) RF: 0 levothyroxine 100 mcg Tablet 100 mcg PO DAILY RF: 0 hydroxyzine HCl 10 mg tablet 10 mg PO TID PRN (Reason: Anxiety) RF: 0 hydrocodone-acetaminophen [[place]] 5-325 mg tablet 1 tab PO Q4H PRN (Reason: pain) Qty: 20 RF: 0 Discharge Orders: Discharge Order (Routine); Ordered 12/11/19 Ordered By: Tenisha Casey Referrals: JAKE RYAN, CASHIER SUPERVISOR [Primary Care Provider] - Discharge Diet: Advance as tolerated Discharge Activity: Resume usual activity Patient Instructions: Dizziness (ED) Discharge Date/Time: 12/11/19 22:30 Coding Level of Care Code 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
[2019-12-11 20:46] LABS: Basophils # 0.1 10^3/uL (0.0-0.1); Basophils % 1.1 %; Eosinophils # 0.2 10^3/uL (0.0-0.8); Eosinophils % 3.4 %; Hematocrit 36.1 % (37.0-47.0); Lymphocytes % 32.1 %; Mean Corpuscular HGB Conc 27.7 g/dL (30.0-36.0); Mean Corpuscular Hemoglobin 26.1 pg (28.0-34.0); Mean Corpuscular Volume 94.3 fL (81-99); Mean Platelet Volume 11.8 fL (7.4-10.4); Monocytes # 0.5 10^3/uL (0.2-0.9); Monocytes % 8.4 %; Neutrophils # 3.39 10^3/uL (1.8-7.7); Neutrophils % 54.7 %; Nucleated Red Blood Cells % 0.3 %; Platelet Count 73 10^3/cmm (130-400); Red Blood Count 3.83 10^6/uL (4.1-5.3); Red Cell Distribution Width 15.9 % (12.1-15.1); White Blood Count 6.2 10^3/uL (4.0-10.0)
[2019-12-11 21:02] VITALS: BP 137/67; PULSE 84; RESP 18; O2SAT 100
[2019-12-11] MEDS: LORazepam 1 mg Tablet PO (21:34)
[2019-12-11 21:57] LABS: Albumin Level 3.9 g/dL (3.5-5.2); Blood Urea Nitrogen 16 mg/dL (6-20); Calcium 8.6 mg/dL (8.5-10.5); Carbon Dioxide 18 mmol/L (22-29); Chloride 103 mmol/L (98-107); Glomerular Filtration Rate 65.2 mL/min (90-130); Glucose 99 mg/dL (65-115); Osmolality Calculated 283 mOsm/kg (285-295); Sodium 136 mmol/L (136-145); Total Bilirubin 0.7 mg/dL (0.15-1.2); Total Protein 6.9 g/dL (6.6-8.7)
[2019-12-11 21:58] LABS: Anion Gap 19.8 (5-19); Potassium 4.8 mmol/L (3.5-5.1)
[2019-12-11 21:59] LABS: Alanine Aminotransferase 14 U/L (0-33); Alkaline Phosphatase 100 IU/L (35-105); Aspartate Amino Transferase 35 U/L (0-32)
[2019-12-11 22:00] VITALS: BP 155/68; PULSE 84; RESP 18; O2SAT 99
[2019-12-11 22:28] VITALS: BP 139/69; PULSE 74; RESP 17; O2SAT 97
--- NOTE | 2019-12-11 22:29 | PC.NURSE ---
This RN agrees with it program engagement director's assessment
== END 2019-12-11 22:30 | disposition home or self-care (01) ==
PROVIDERS: Emergency Provider Emergency Medicine; PCP Nurse Practitioner Family
DX: R42 Dizziness and giddiness (principal); Z79.82 Long term (current) use of aspirin; J43.9 Emphysema, unspecified; I10 Essential (primary) hypertension; Z87.891 Personal history of nicotine dependence
CPT/HCPCS: 12345; 71045; 80053; 85025; 93005; 99282; 99283

== ENCOUNTER 2020-01-07 11:47 | Outpatient (CLI) | payer MEDICARE, MEDICAID, SELFPAY ==
[2020-01-07] MEDS: iodixanol 320 mg/mL 100mL Btl IV (12:21)
--- NOTE | 2020-01-07 13:00 | CT_ITS ---
WS: [id number] CTA ABDOMEN PELVIS TECHNIQUE: Noncontrast plus contrast enhanced CTA of the abdominal aorta with coronal and sagittal re formatted images and additional MIP Images. CLINICAL INFORMATION: lower extremity edema COMPARISON: CTA 5 23,019 DLP: 1417.[address] scans at [facility] use at least one of these dose optimization techniques: automat ed exposure control; mA and/or kV adjustment per patient size (includes targeted exams where dose is matched to clinical indication); or iterative reconstruction. FINDINGS: Diffuse fatty infiltration of the liver. Cholecystectomy clips. Normal GE junction. Lung bases are we ll aerated. Normal spleen. Stable enhancing lesion involving the tail the pancreas measuring 1.5 cm i s unchanged. Enhancement pattern parallels adjacent spleen. This may represent a small splenule. Adrenal glands are normal. Normal renal parenchymal enhancement. No hydronephrosis. No abdominal or p elvic lymphadenopathy. No inguinal lymphadenopathy. No free fluid in the abdomen or pelvis. Celiac and SMA are patent. 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 Proximal renal arteries are patent. Normal caliber abdominal aorta. Normal common iliac arteries bilaterally. IVC and iliac veins are nor mal in appearance. No significant compression of the common iliac or left iliac vein.. No evidence of May-Thurner syndrome. CT/CT angio abdomen pelvis [id number] IMPRESSION: 1. Normal caliber abdominal aorta and common iliac arteries and veins. No evid ence of compression. 2. No free fluid in the abdomen or pelvis. 3. Stable nodule involving the tail of the pancreas measuring 1.5 cm with enha ncement paralleling that of the spleen. This likely represents a small splenule . This demonstrates long-term stability since 2005. 4. Prior cholecystectomy and appendectomy.
== END 2020-01-07 11:48 | disposition home or self-care (01) ==
LOC: CT 11:48
PROVIDERS: PCP Nurse Practitioner Family; Visit Provider Nurse Practitioner Family
DX: R60.0 Localized edema (principal)
CPT/HCPCS: 74174

== ENCOUNTER → 2020-01-13 09:17 | Outpatient (BNVA) | payer MEDICARE, MEDICAID, SELFPAY | PROVIDERS: PCP Nurse Practitioner Family; Visit Provider Orthopaedic Surgery | DX: Z47.89 Encounter for other orthopedic aftercare (principal); S60.212D Contusion of left wrist, subsequent encounter; W01.0XXD Fall on same level from slipping, tripping and stumbling without subsequent striking against object, subsequent encounter | CPT/HCPCS: 73110 ==

== ENCOUNTER 2020-01-30 18:14 | Emergency (ER) | payer MEDICARE, MEDICAID, SELFPAY ==
[2020-01-30 18:29] VITALS: BP 124/82; PULSE 66; RESP 20; TEMP 36.5; O2SAT 99; BMI 37.3
--- NOTE | 2020-01-30 18:29 | XRR_ITS ---
PROCEDURE INFORMATION: Exam: XR Chest, 1 View Exam date and time: 01/30/2020 8:07 PM Age: 54 years old Clinical indication: Chest pain; Additional info: Cp, dizzy TECHNIQUE: Imaging protocol: XR of the chest Views: 1 view. COMPARISON: CR XR chest 1V portable [id number] 12/11/2019 8:03 PM FINDINGS: Lungs: Unremarkable. No consolidation. Pleural space: Small left pleural effusion versus pleural thickening is unchanged. No pneumothorax. Heart/Mediastinum: Unremarkable. No cardiomegaly. Bones/joints: Unremarkable. XR/XR chest 1V portable [id number] IMPRESSION: No acute finding.
[2020-01-30 18:46] LABS: Basophils # 0.1 10^3/uL (0.0-0.1); Eosinophils # 0.3 10^3/uL (0.0-0.8); Eosinophils % 3.2 %; Hematocrit 35.5 % (37.0-47.0); Hemoglobin 10.7 g/dL (11.5-15.3); Lymphocytes # 3.2 10^3/uL (0.8-4.8); Lymphocytes % 33.6 %; Mean Corpuscular HGB Conc 30.1 g/dL (30.0-36.0); Mean Corpuscular Hemoglobin 25.7 pg (28.0-34.0); Mean Corpuscular Volume 85.3 fL (81-99); Mean Platelet Volume 10.4 fL (7.4-10.4); Monocytes # 0.8 10^3/uL (0.2-0.9); Monocytes % 8.5 %; Neutrophils # 5.01 10^3/uL (1.8-7.7); Neutrophils % 53.4 %; Nucleated Red Blood Cells % 0 %; Platelet Count 358 10^3/cmm (130-400); Red Blood Count 4.16 10^6/uL (4.1-5.3); Red Cell Distribution Width 15.3 % (12.1-15.1); White Blood Count 9.4 10^3/uL (4.0-10.0)
[2020-01-30 19:34] LABS: Alanine Aminotransferase 11 U/L (0-33); Albumin Level 4.1 g/dL (3.5-5.2); Alkaline Phosphatase 115 IU/L (35-105); Anion Gap 13.2 (5-19); Aspartate Amino Transferase 16 U/L (0-32); Blood Urea Nitrogen 26 mg/dL (6-20); Calcium 9.3 mg/dL (8.5-10.5); Carbon Dioxide 29 mmol/L (22-29); Chloride 99 mmol/L (98-107); Globulin 2.6 g/dL (1.3-4.6); Glomerular Filtration Rate 42.5 mL/min (90-130); Glucose 109 mg/dL (65-115); Osmolality Calculated 289 mOsm/kg (285-295); Potassium 4.2 mmol/L (3.5-5.1); Sodium 137 mmol/L (136-145); Total Bilirubin 0.6 mg/dL (0.15-1.2); Total Protein 6.7 g/dL (6.6-8.7)
[2020-01-30 19:36] LABS: Troponin(5th) Baseline 21 ng/L (0-10)
--- NOTE | 2020-01-30 20:29 | ECG_ITS ---
[facility] Test Date: 2020-01-30 Pat Name: Crystal Pierre Department: Room: Gender: Female Radio Tester: : 1965 Requested By: Tenisha Casey Order Number: [id number] Cleemncia MD: Amanda Bourgeois M.D. Measurements Intervals [place] Rate: 59 P: 56 WI: 136 QRS: 31 QRSD: 110 T: 48 QT: 433 QTc: 430 Interpretive Statements SINUS BRADYCARDIA POSSIBLE RIGHT VENTRICULAR CONDUCTION DELAY [RSR (QR) IN V1/V2] Compared to ECG 12/11/2019 20:01:49 Sinus rhythm no longer present Intraventricular conduction delay no longer present Electronically Signed On 02-02-2020 10:02:46 GRE[employer]ER [employer] OILER by Amanda Bourgeois M.D. [id number]
--- NOTE | 2020-01-30 20:35 | PC.NURSE ---
lab called to draw second troponin, iv would not draw
[2020-01-30 20:56] VITALS: BP 116/95; PULSE 65; RESP 17; O2SAT 98
--- NOTE | 2020-01-30 20:59 | W.ED.CHESTPA ---
HPI - Chest Pain General: Chief Complaint: Chest Pain Stated Complaint: CHEST PAIN Time Seen by Provider: 01/30/20 20:50 History of Present Illness: Associated symptoms: Deny abdominal pain, dyspnea, fever(s), nausea or vomiting Review of Systems Const: Denies: fever(s), chills, body aches or change in appetite Eyes: Denies: blurry vision or eye discomfort ENMT: Denies: throat pain or dental pain Card: Reports: chest pain Resp: Denies: dyspnea GI: Denies: abdominal pain, nausea, vomiting or diarrhea : Denies: dysuria Musc: Denies: neck pain or back pain Skin/Breast: Denies: rash Neuro: Denies: headache(s) Psych: Denies: depression Peter/Lymph: Denies: easy bruising All/Imm: Denies: urticaria PFSH ED PFSH: Medical History (Updated 01/30/20 @ 21:47 by Tenisha Casey MD) Asthma 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 Social History Smoking and tobacco status: former smoker Quit status (tobacco): has quit using tobacco Year quit tobacco: 2019 - 1-5 ciggs/day Alcohol intake: never Lives independently: Yes Household members: none Housing: Apartment Current occupational status: disabled History of recent travel: No Current gender identity: Female Physical Exam Const: COMMON NORMALS: no acute distress, patient oriented x3 and healthy appearing HENMT: COMMON NORMALS: normocephalic and atraumatic HEAD & SCALP: normocephalic and atraumatic Eye: COMMON NORMALS: Equal, round and reactive pupils present and EOMs intact bilaterally PUPIL: Yes Equal, round and reactive pupils present Neck/C-Spine: COMMON NORMALS: full ROM and supple Chest: COMMONS NORMALS: normal inspection of the chest and normal palpation of entire chest wall Resp: COMMON NORMALS: normal respiratory effort, No retractions, No use of accessory muscles and clear to auscultation bilaterally AUSCULTATION: clear to auscultation bilaterally Cardio: COMMON NORMALS: regular rate, regular rhythm and No murmurs present (Cardio) RATE: regular rate RHYTHM: regular rhythm GI: COMMON NORMALS: Normal to inspection, nondistended, normoactive bowel sounds present, Soft to palpation, non-tender and no masses PALPATION: Yes Soft to palpation Extremity: COMMON NORMALS: normal to inspection and full ROM Neuro: COMMON NORMALS: patient oriented x3, moves all extremities and no focal motor deficits Psych: COMMON NORMALS: mental status grossly normal, Normal thought process present and cooperative THOUGHT PROCESS: Normal thought process present Skin: COMMON NORMALS: no rashes or lesions noted and no wounds GENERAL SKIN EXAM: no rashes or lesions noted Course Vital Signs: Vital signs: Vital Signs Temperature 97.7 F 01/30/20 18:29 Pulse Rate 65 01/30/20 20:56 Respiratory Rate 17 01/30/20 20:56 Blood Pressure 116/95 01/30/20 20:56 Pulse Oximetry 98 01/30/20 20:56 MDM - Chest Pain MDM Narrative: Medical decision making narrative: Crystal presents with chest pain that is atypical in nature. Patient's initial and repeat troponin here negative. She has no signs of acute coronary syndrome. She has no signs of pulmonary embolism. Patient is stable for discharge and is to follow-up PCP and return if worsening. Lab Data: Labs: Lab Results 01/30/20 01/30/20 01/30/20 Range/Units 18:40 18:40 18:40 WBC 9.4 (4.0-10.0) 10^3/ uL RBC 4.16 (4.1-5.3) 10^6/u L Hgb 10.7 L (11.5-15.3) g/dL Hct 35.5 L (37.0-47.0) % MCV 85.3 (81-99) fL MCH 25.7 L (28.0-34.0) pg MCHC 30.1 (30.0-36.0) g/dL RDW 15.3 H (12.1-15.1) % Plt Count 358 (130-400) 10^3/c mm MPV 10.4 (7.4-10.4) fL Neut % (Auto) 53.4 % Lymph % (Auto) 33.6 % Gregory % (Auto) 8.5 % Eos % (Auto) 3.2 % Baso % (Auto) 1.0 % Neut # (Auto) 5.01 (1.8-7.7) 10^3/u L Lymph # (Auto) 3.2 (0.8-4.8) 10^3/u L Gregory # (Auto) 0.8 (0.2-0.9) 10^3/u L Eos # (Auto) 0.3 (0.0-0.8) 10^3/u L Baso # (Auto) 0.1 (0.0-0.1) 10^3/u L Nucleated RBC % (a uto) 0 % Nucleated RBCs # 0.0 /100WBC Sodium 137 (136-145) mmol/L Potassium 4.2 (3.5-5.1) mmol/L Chloride 99 (98-107) mmol/L Carbon Dioxide 29 (22-29) mmol/L Anion Gap 13.2 (5-19) BUN 26 H (6-20) mg/dL Creatinine 1.3 H (0.5-0.9) mg/dL GFR Calculation 42.5 L (90-130) mL/min Glucose 109 (65-115) mg/dL Calculated Osmolal ity 289 (285-295) mOsm/k g Calcium 9.3 (8.5-10.5) mg/dL Total Bilirubin 0.6 (0.15-1.2) mg/dL AST 16 (0-32) U/L ALT 11 (0-33) U/L Alkaline Phosphata se 115 H (35-105) IU/L Troponin T Baselin e 21 H (0-10) ng/L Troponin T 120 Min milind (0-10) ng/L Delta Troponin T (0-10) ABS# Total Protein 6.7 (6.6-8.7) g/dL Albumin 4.1 (3.5-5.2) g/dL Globulin 2.6 (1.3-4.6) g/dL 01/30/20 Range/Units 20:49 WBC (4.0-10.0) 10^3/ uL RBC (4.1-5.3) 10^6/u L Hgb (11.5-15.3) g/dL Hct (37.0-47.0) % MCV (81-99) fL MCH (28.0-34.0) pg MCHC (30.0-36.0) g/dL RDW (12.1-15.1) % Plt Count (130-400) 10^3/c mm MPV (7.4-10.4) fL Neut % (Auto) % Lymph % (Auto) % Gregory % (Auto) % Eos % (Auto) % Baso % (Auto) % Neut # (Auto) (1.8-7.7) 10^3/u L Lymph # (Auto) (0.8-4.8) 10^3/u L Gregory # (Auto) (0.2-0.9) 10^3/u L Eos # (Auto) (0.0-0.8) 10^3/u L Baso # (Auto) (0.0-0.1) 10^3/u L Nucleated RBC % (a uto) % Nucleated RBCs # /100WBC Sodium (136-145) mmol/L Potassium (3.5-5.1) mmol/L Chloride (98-107) mmol/L Carbon Dioxide (22-29) mmol/L Anion Gap (5-19) BUN (6-20) mg/dL Creatinine (0.5-0.9) mg/dL GFR Calculation (90-130) mL/min Glucose (65-115) mg/dL Calculated Osmolal ity (285-295) mOsm/k g Calcium (8.5-10.5) mg/dL Total Bilirubin (0.15-1.2) mg/dL AST (0-32) U/L ALT (0-33) U/L Alkaline Phosphata se (35-105) IU/L Troponin T Baselin e (0-10) ng/L Troponin T 120 Min milind 16.08 H (0-10) ng/L Delta Troponin T -4.92 L (0-10) ABS# Total Protein (6.6-8.7) g/dL Albumin (3.5-5.2) g/dL Globulin (1.3-4.6) g/dL Imaging Data^: CXR: Attestation: I personally reviewed and interpreted this imaging study as follows: My impression: no acute abnormality EKG Data^: EKG 1: Attestation: I personally reviewed and interpreted this EKG as follows: EKG interpretation date: 01/30/20 Interpretation: sinus john paul hr 59qrs 102 qtc 413 EKG 2: Attestation: I personally reviewed and interpreted this EKG as follows: EKG interpretation date: 01/30/20 Interpretation: nsr hr [address] or t wave abnormalities qrs 98 qtc 419 Discharge Plan Discharge Patient Disposition: Home Clinical Impression: Chest pain Qualifiers: Chest pain type: unspecified Qualified Code(s): R07.9 - Chest pain, unspecified Condition: Stable Prescriptions: No Action montelukast [Singulair] 10 mg tablet 10 mg PO DAILY RF: 0 levetiracetam 250 mg tablet 250 mg PO BID RF: 0 aspirin [Adult Aspirin Regimen] 81 mg tablet,delayed release (DR/EC) 81 mg PO DAILY RF: 0 bumetanide 2 mg tablet 2 mg PO DAILY RF: 0 pantoprazole [Protonix] 40 mg tablet,delayed release (DR/EC) 40 mg PO DAILY RF: 0 atorvastatin 20 mg tablet 20 mg PO BEDTIME RF: 0 albuterol sulfate [ProAir HFA] 90 mcg/actuation HFA aerosol inhaler 2 puff INHALATION Q4H PRN (Reason: Shortness Of Breath) RF: 0 hydrocodone-acetaminophen [[place]] 5-325 mg tablet 1 tab PO Q4H PRN (Reason: pain) 7 Days Qty: 30 RF: 0 cetirizine 10 mg capsule 10 mg PO DAILY RF: 0 isosorbide mononitrate 30 mg tablet extended release 24 hr 30 mg PO DAILY Qty: 30 RF: 0 prednisone 20 mg tablet 40 mg PO .COMPLEX Qty: 8 RF: 0 potassium chloride [Klor-Con] 20 mEq Packet 20 meq PO BID RF: 0 metoprolol succinate 50 mg tablet extended release 24 hr 50 mg PO BID RF: 0 Anoro Ellipta 62.5-25 mcg/actuation blister with device 1 inh INHALATION QAM RF: 0 spironolactone 25 mg Tablet 25 mg PO DAILY RF: 0 magnesium oxide 400 mg magnesium Tablet 400 mg PO DAILY RF: 0 naproxen 500 mg Tablet 500 mg PO Q6H PRN (Reason: Pain) RF: 0 guaifenesin [Mucinex] 600 mg Tablet Extended Release 12hr 1,200 mg PO BID PRN (Reason: Congestion) RF: 0 metoclopramide HCl [Reglan] 10 mg tablet 10 mg PO Q6H PRN (Reason: nausea and vomiting) Qty: 20 RF: 0 sucralfate 1 gram tablet 1 g PO TID PRN (Reason: Stomach Upset) RF: 0 levothyroxine 100 mcg Tablet 100 mcg PO DAILY RF: 0 hydroxyzine HCl 10 mg tablet 10 mg PO TID PRN (Reason: Anxiety) RF: 0 hydrocodone-acetaminophen [[place]] 5-325 mg tablet 1 tab PO Q4H PRN (Reason: pain) Qty: 20 RF: 0 Discharge Orders: Discharge ED (Routine); Ordered 01/30/20 Ordered By: Tenisha Casey Referrals: JAKE RYAN, LAWN CARE WORKER [Primary Care Provider] - 1-3 days Discharge Diet: Advance as tolerated Discharge Activity: Resume usual activity Patient Instructions: Chest Pain (ED) Coding Level of Care Code ED Pressing Machine Tender for Chg Fwd Exam Comprehensive
--- NOTE | 2020-01-30 21:03 | PC.NURSE ---
third ekg done at 2100 and shown to ER doctor
[2020-01-30 21:35] LABS: Troponin 5 2HR 16.08 ng/L (0-10)
[2020-01-30 22:06] VITALS: BP 135/70; PULSE 69; RESP 16; O2SAT 98
== END 2020-01-30 22:07 | disposition home or self-care (01) ==
PROVIDERS: Emergency Provider Emergency Medicine; PCP Nurse Practitioner Family
DX: R07.9 Chest pain, unspecified (principal); Z79.82 Long term (current) use of aspirin; J44.9 Chronic obstructive pulmonary disease, unspecified; I10 Essential (primary) hypertension; Z87.891 Personal history of nicotine dependence
CPT/HCPCS: 12345; 36415; 71045; 80053; 84484; 85025; 93005; 99282; 99283

== ENCOUNTER → 2020-02-11 16:15 | Outpatient (BNVA) | payer MEDICARE, MEDICAID, SELFPAY | PROVIDERS: PCP Nurse Practitioner Family; Visit Provider Internal Medicine | DX: E03.9 Hypothyroidism, unspecified (principal); F81.9 Developmental disorder of scholastic skills, unspecified; H53.2 Diplopia | CPT/HCPCS: 99214 ==

== ENCOUNTER 2020-02-14 18:06 | Emergency (ER) | payer MEDICARE, MEDICAID, SELFPAY ==
[2020-02-14 18:34] VITALS: BP 164/104; PULSE 80; RESP 18; TEMP 36.3; O2SAT 99; BMI 44.1
--- NOTE | 2020-02-14 19:45 | W.ED.FALL ---
HPI - Fall General: Chief Complaint: Fall Stated Complaint: blurred vision Time Seen by Provider: 02/14/20 19:45 Source: patient Mode of arrival: ambulatory Limitations: no limitations History of Present Illness: HPI Narrative: 54-year-old female comes in today with complaints of low back pain and dizziness with blurred vision after suffering a fall this morning. Patient states that she does not know why she fell. Patient was helping her aide by carrying a box outside. Patient then fell at home. Patient denies any loss of consciousness. Patient appears well. Patient appears in no acute distress. No signs of injury to the head or low back is noted on exam. 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 Social History Smoking and tobacco status: former smoker Quit status (tobacco): has quit using tobacco Year quit tobacco: 2019 - 1-5 ciggs/day Alcohol intake: never Lives independently: Yes Household members: none Housing: Apartment Current occupational status: disabled History of recent travel: No Current gender identity: Female Physical Exam Const: COMMON NORMALS: no acute distress and patient oriented x3 GENERAL APPEARANCE: cooperative HENMT: COMMON NORMALS: normocephalic, TM's normal bilaterally and Normal external nose present HEAD & SCALP: normal to inspection and normocephalic NOSE: Normal external nose present TYMPANIC MEMBRANE: TM's normal bilaterally MOUTH: Normal oral and palatal mucosa present Eye: GENERAL EYE: appearance normal, both eyes and all related structures Neck/C-Spine: COMMON NORMALS: full ROM Chest: COMMONS NORMALS: normal inspection of the chest Resp: COMMON NORMALS: normal respiratory effort EFFORT & INSPECTION: Yes able to speak in complete sentences Cardio: COMMON NORMALS: regular rate and regular rhythm RATE: regular rate RHYTHM: regular rhythm GI: COMMON NORMALS: non-tender Back/Pelvis: COMMON NORMALS: thoracic and lumbar spine normal to inspection Extremity: COMMON NORMALS: normal to inspection Neuro: COMMON NORMALS: patient oriented x3 and moves all extremities Psych: COMMON NORMALS: mental status grossly normal and cooperative Skin: COMMON NORMALS: no rashes or lesions noted GENERAL SKIN EXAM: no rashes or lesions noted Course Vital Signs: Vital signs: Vital Signs Temperature 97.3 F L 02/14/20 18:34 Pulse Rate 73 02/14/20 21:44 Respiratory Rate 18 02/14/20 21:44 Blood Pressure 145/83 02/14/20 21:44 Pulse Oximetry 100 02/14/20 21:44 MDM - Fall MDM Narrative: Medical decision making narrative: 54-year-old female comes in today with complaints of low back pain and blurred vision. Patient reports that she fell this afternoon and since then has had some blurred vision. Patient then called EMS to have them bring her in to be evaluated. Patient appears well. Patient appears no acute distress. On exam patient there is no focal neural deficits. No weakness in extremities noted. Patient does have some tree trunk lower extremities. Differential diagnosis includes not limited to intracranial hemorrhage, stroke, ACS, CHF, malingering, fracture. CT of the head and lumbar spine noted no acute abnormalities. Laboratory values were remarkable for some mild anemia at 10 and 35 hemoglobin hematocrit. CMP noted no significant abnormality. Reviewed exam with patient with recommendations for treatment and follow-up. Patient reported understanding. Lab Data: Labs: Lab Results 02/14/20 02/14/20 02/14/20 Range/Units 20:56 21:20 21:20 WBC 9.3 (4.0-10.0) 10^3/ uL RBC 4.08 L (4.1-5.3) 10^6/u L Hgb 10.4 L (11.5-15.3) g/dL Hct 35.2 L (37.0-47.0) % MCV 86.3 (81-99) fL MCH 25.5 L (28.0-34.0) pg MCHC 29.5 L (30.0-36.0) g/dL RDW 14.9 (12.1-15.1) % Plt Count 339 (130-400) 10^3/c mm MPV 9.8 (7.4-10.4) fL Neut % (Auto) 61.2 % Lymph % (Auto) 26.0 % [place] % (Auto) 9.4 % Eos % (Auto) 2.3 % Baso % (Auto) 0.8 % Neut # (Auto) 5.69 (1.8-7.7) 10^3/u L Lymph # (Auto) 2.4 (0.8-4.8) 10^3/u L [place] # (Auto) 0.9 (0.2-0.9) 10^3/u L Eos # (Auto) 0.2 (0.0-0.8) 10^3/u L Baso # (Auto) 0.1 (0.0-0.1) 10^3/u L Nucleated RBC % (a uto) 0 % Nucleated RBCs # 0.0 /100WBC Sodium 137 (136-145) mmol/L Potassium 3.8 (3.5-5.1) mmol/L Chloride 97 L (98-107) mmol/L Carbon Dioxide 34 H (22-29) mmol/L Anion Gap 9.8 (5-19) BUN 17 (6-20) mg/dL Creatinine 0.9 (0.5-0.9) mg/dL GFR Calculation 65.0 L (90-130) mL/min Glucose 116 H (65-115) mg/dL Calculated Osmolal ity 287 (285-295) mOsm/k g Calcium 9.4 (8.5-10.5) mg/dL Troponin T Gen 5 n g/L (0-10) ng/L NT-Pro-B Natriuret Pep 55 (0-125) pg/mL Urine Color Yellow (Yellow) Urine Appearance Clear (CLEAR) Urine pH 5 (5-7) Ur Specific Gravit y 1.015 (1.005-1.030) Urine Protein Neg (Negative) Urine Glucose (UA) Norm (Normal) Urine Ketones Negative (Negative) Urine Blood Neg (Negative) Urine Nitrate Negative (Negative) Urine Bilirubin Neg (Negative) Urine Urobilinogen Norm (Negative) mg/dL Ur Leukocyte Jacqui ase Negative (Negative) 02/14/20 Range/Units 21:20 WBC (4.0-10.0) 10^3/ uL RBC (4.1-5.3) 10^6/u L Hgb (11.5-15.3) g/dL Hct (37.0-47.0) % MCV (81-99) fL MCH (28.0-34.0) pg MCHC (30.0-36.0) g/dL RDW (12.1-15.1) % Plt Count (130-400) 10^3/c mm MPV (7.4-10.4) fL Neut % (Auto) % Lymph % (Auto) % [place] % (Auto) % Eos % (Auto) % Baso % (Auto) % Neut # (Auto) (1.8-7.7) 10^3/u L Lymph # (Auto) (0.8-4.8) 10^3/u L [place] # (Auto) (0.2-0.9) 10^3/u L Eos # (Auto) (0.0-0.8) 10^3/u L Baso # (Auto) (0.0-0.1) 10^3/u L Nucleated RBC % (a uto) % Nucleated RBCs # /100WBC Sodium (136-145) mmol/L Potassium (3.5-5.1) mmol/L Chloride (98-107) mmol/L Carbon Dioxide (22-29) mmol/L Anion Gap (5-19) BUN (6-20) mg/dL Creatinine (0.5-0.9) mg/dL GFR Calculation (90-130) mL/min Glucose (65-115) mg/dL Calculated Osmolal ity (285-295) mOsm/k g Calcium (8.5-10.5) mg/dL Troponin T Gen 5 n g/L 19 H (0-10) ng/L NT-Pro-B Natriuret Pep (0-125) pg/mL Urine Color (Yellow) Urine Appearance (CLEAR) Urine pH (5-7) Ur Specific Gravit y (1.005-1.030) Urine Protein (Negative) Urine Glucose (UA) (Normal) Urine Ketones (Negative) Urine Blood (Negative) Urine Nitrate (Negative) Urine Bilirubin (Negative) Urine Urobilinogen (Negative) mg/dL Ur Leukocyte Jacqui ase (Negative) Discharge Plan Discharge Patient Disposition: Home Clinical Impression: Fall (on)(from) sidewalk curb, initial encounter Back pain Qualifiers: Back pain location: low back pain Chronicity: unspecified Back pain laterality: unspecified Sciatica presence: without sciatica Qualified Code(s): M54.5 - Low back pain Condition: Stable Prescriptions: No Action montelukast [Singulair] 10 mg tablet 10 mg PO DAILY@0800 RF: 0 levetiracetam 250 mg tablet 250 mg PO BID@799,1999 RF: 0 aspirin [Adult Aspirin Regimen] 81 mg tablet,delayed release (DR/EC) 81 mg PO DAILY@0800 RF: 0 bumetanide 2 mg tablet 2 mg PO DAILY@0800 RF: 0 pantoprazole [Protonix] 40 mg tablet,delayed release (DR/EC) 40 mg PO DAILY@0800 RF: 0 atorvastatin 20 mg tablet 20 mg PO BEDTIME@1999 RF: 0 albuterol sulfate [ProAir HFA] 90 mcg/actuation HFA aerosol inhaler 2 puff INHALATION Q4H PRN (Reason: Shortness Of Breath) RF: 0 hydrocodone-acetaminophen [Kendall] 5-325 mg tablet 1 tab PO Q4H PRN (Reason: pain) 7 Days Qty: 30 RF: 0 cetirizine 10 mg capsule 10 mg PO DAILY@0800 RF: 0 prednisone 20 mg tablet 40 mg PO .COMPLEX Qty: 8 RF: 0 potassium chloride [Klor-Con] 20 mEq Packet 20 meq PO BID@799,1999 RF: 0 metoprolol succinate 50 mg tablet extended release 24 hr 50 mg PO BID@799,1999 RF: 0 Anoro Ellipta 62.5-25 mcg/actuation blister with device 1 inh INHALATION DAILY@0800 RF: 0 isosorbide mononitrate 30 mg tablet extended release 24 hr 30 mg PO DAILY@0800 RF: 0 spironolactone 25 mg Tablet 25 mg PO DAILY@0800 RF: 0 magnesium oxide 400 mg magnesium Tablet 400 mg PO DAILY@0800 RF: 0 naproxen 500 mg Tablet 500 mg PO Q6H PRN (Reason: Pain) RF: 0 guaifenesin [Mucinex] 600 mg Tablet Extended Release 12hr 1,200 mg PO BID PRN (Reason: Congestion) RF: 0 metoclopramide HCl [Reglan] 10 mg tablet 10 mg PO Q6H PRN (Reason: nausea and vomiting) Qty: 20 RF: 0 sucralfate 1 gram tablet 1 g PO TID@08,12,20 PRN (Reason: Stomach Upset) RF: 0 hydroxyzine HCl 10 mg tablet 10 mg PO TID PRN (Reason: Anxiety) RF: 0 levothyroxine 100 mcg tablet 125 mcg PO DAILY@0700 RF: 0 Discharge Orders: Discharge ED (Routine); Ordered 02/14/20 Ordered By: Raul Troncoso Referrals: JAKE RYAN, HOME STEREO EQUIPMENT INSTALLER [Primary Care Provider] - Discharge Diet: Usual diet Discharge Activity: Increase activity as tolerated Patient Instructions: Acute Low Back Pain (ED) Activity Restrictions/Additional Instructions: Activity as tolerated. Gentle stretching and range of motion exercises. Use a walker to get up and get around to add support and protection from falls. Follow-up with primary care for further treatment. Return to the emergency department for new concerns. Coding Level of Care Code ED Industrial Plant Custodian for Dc Serrato Exam Comprehensive
[2020-02-14 19:48] VITALS: BP 140/94; PULSE 77; RESP 17; O2SAT 99
--- NOTE | 2020-02-14 20:03 | CTR_ITS ---
PROCEDURE INFORMATION: Exam: CT Head Without Contrast Exam date and time: 02/14/2020 8:10 PM Age: 54 years old Clinical indication: Injury or trauma; Blunt trauma (contusions or hematomas); Patient HX: Fall today. C/O blurred vision and dizziness. ; Additional info: Fall, dizziness, blurred vision TECHNIQUE: Imaging protocol: Computed tomography of the head without contrast. Total images: 201 Radiation optimization: All CT scans at this facility use at least one of these dose optimization techniques: automated exposure control; mA and/or kV adjustment per patient size (includes targeted exams where dose is matched to clinical indication); or iterative reconstruction. COMPARISON: CT head wo con* [id number] 09/16/2019 3:43 PM RADIATION DOSE METRICS: Total DLP (mGy-cm): 1170.15 FINDINGS: Brain: Normal. No hemorrhage. Unremarkable white matter. No mass effect. Cerebral ventricles: No ventriculomegaly. Bones/joints: Unremarkable. No acute fracture. Paranasal sinuses: Visualized sinuses are unremarkable. No fluid levels. Mastoid air cells: Visualized mastoid air cells are well aerated. Orbital cavity: Mild dysconjugate gaze. Soft tissues: Unremarkable. CT/CT head wo con* [id number] IMPRESSION: No evidence of active or acute intracranial pathologic process, hemorrhage, or trauma. Radiation Dose CTDIVOL = (mGy): DLP = 1170.15 (mGy-cm)
--- NOTE | 2020-02-14 20:03 | CTR_ITS ---
PROCEDURE INFORMATION: Exam: CT Lumbar Spine Without Contrast Exam date and time: 02/14/2020 8:10 PM Age: 54 years old Clinical indication: Injury or trauma; Blunt trauma (contusions or hematomas); Patient HX: Fall today. C/O low back pain. ; Additional info: Fall, pain TECHNIQUE: Imaging protocol: Computed tomography images of the lumbar spine without contrast. Total images: 416 Radiation optimization: All CT scans at this facility use at least one of these dose optimization techniques: automated exposure control; mA and/or kV adjustment per patient size (includes targeted exams where dose is matched to clinical indication); or iterative reconstruction. COMPARISON: [place] [id number] 08/05/2016 10:58 PM RADIATION DOSE METRICS: Total DLP (mGy-cm): 2296.98 FINDINGS: Vertebrae: No acute fracture. Normal alignment. No visible traumatic spondylolysis or spondylolisthesis. Discs/Spinal canal/Neural foramina: Intervertebral disc space heights preserved. No significant disc protrusion. No severe spinal canal stenosis. No significant neural foraminal narrowing. Soft tissues: Unremarkable. Other findings: Marked obesity. CT/CT lumbar spine wo con* [id number] IMPRESSION: Nonacute. Radiation Dose CTDIVOL = (mGy): DLP = 2296.98 (mGy-cm)
--- NOTE | 2020-02-14 20:05 | ECG_ITS ---
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 Measurements Intervals [place] Rate: 70 P: 57 MN: 143 QRS: 37 QRSD: 106 T: 32 QT: 427 QTc: 464 Interpretive Statements SINUS RHYTHM POSSIBLE RIGHT VENTRICULAR CONDUCTION DELAY [RSR (QR) IN V1/V2] Compared to ECG 01/30/2020 20:58:57 Sinus bradycardia no longer present Electronically Signed On 02-15-2020 17:53:[address] ENGINEER by Amanda Bourgeois M.D. [email or web address]
[2020-02-14 21:27] LABS: Add Urine Microscopic? NO
[2020-02-14 21:39] LABS: Basophils # 0.1 10^3/uL (0.0-0.1); Basophils % 0.8 %; Eosinophils # 0.2 10^3/uL (0.0-0.8); Eosinophils % 2.3 %; Hematocrit 35.2 % (37.0-47.0); Hemoglobin 10.4 g/dL (11.5-15.3); Lymphocytes # 2.4 10^3/uL (0.8-4.8); Mean Corpuscular HGB Conc 29.5 g/dL (30.0-36.0); Mean Corpuscular Hemoglobin 25.5 pg (28.0-34.0); Mean Corpuscular Volume 86.3 fL (81-99); Mean Platelet Volume 9.8 fL (7.4-10.4); Monocytes # 0.9 10^3/uL (0.2-0.9); Monocytes % 9.4 %; Neutrophils # 5.69 10^3/uL (1.8-7.7); Neutrophils % 61.2 %; Nucleated Red Blood Cells % 0 %; Platelet Count 339 10^3/cmm (130-400); Red Blood Count 4.08 10^6/uL (4.1-5.3); Red Cell Distribution Width 14.9 % (12.1-15.1); White Blood Count 9.3 10^3/uL (4.0-10.0)
[2020-02-14 21:44] VITALS: BP 145/83; PULSE 73; RESP 18; O2SAT 100
--- NOTE | 2020-02-14 21:51 | PC.NURSE ---
Placed pt on 2 liters oxygen via nasal cannula. Pt wears 2L at home at night.
[2020-02-14 22:00] LABS: Troponin T (5th) Once 19 ng/L (0-10)
[2020-02-14 22:09] LABS: Anion Gap 9.8 (5-19); Blood Urea Nitrogen 17 mg/dL (6-20); Calcium 9.4 mg/dL (8.5-10.5); Carbon Dioxide 34 mmol/L (22-29); Chloride 97 mmol/L (98-107); Glucose 116 mg/dL (65-115); NT Pro B Type Natriuretic Pept 55 pg/mL (0-125); Osmolality Calculated 287 mOsm/kg (285-295); Potassium 3.8 mmol/L (3.5-5.1); Sodium 137 mmol/L (136-145)
[2020-02-14 22:10] LABS: Bilirubin Urine Neg (Negative); Blood Urine Neg (Negative); Glucose Urine UA Norm (Normal); Ketones Urine Negative (Negative); Leukocyte Esterase Urine Negative (Negative); Nitrate Urine Negative (Negative); Protein Urine Neg (Negative); Specific Gravity, Urine 1.015 (1.005-1.030); Urine Appearance Clear (CLEAR); Urine Color Yellow (Yellow); Urobilinogen Urine Norm (Negative); pH Urine 5 (5-7)
[2020-02-14 22:26] VITALS: BP 142/77; PULSE 77; RESP 18; O2SAT 100
[2020-02-14] MEDS: HYDROcodone-acetaminophen 7.5-325 mg Tablet 1 TAB PO (22:26)
== END 2020-02-14 22:26 | disposition home or self-care (01) ==
PROVIDERS: Emergency Provider Nurse Practitioner Family; PCP Nurse Practitioner Family
DX: M54.5 Low back pain (principal); Z79.82 Long term (current) use of aspirin; J44.9 Chronic obstructive pulmonary disease, unspecified; I10 Essential (primary) hypertension; Z87.891 Personal history of nicotine dependence
CPT/HCPCS: 12345; 36415; 70450; 72131; 80048; 81003; 83880; 84484; 85025; 93005; 99281; 99283

== ENCOUNTER 2020-04-16 06:00 | Outpatient (CLI) | payer MEDICARE, MEDICAID, SELFPAY | END 2020-04-16 06:01 | disposition home or self-care (01) | LOC: LAB 04-06 13:44 | PROVIDERS: PCP Nurse Practitioner Family; Visit Provider Internal Medicine Cardiovascular Disease | DX: I50.32 Chronic diastolic (congestive) heart failure (principal) | CPT/HCPCS: 80048; 83880 ==

== ENCOUNTER → 2020-04-29 11:30 | Outpatient (BNVA) | payer MEDICARE, MEDICAID, SELFPAY | PROVIDERS: PCP Nurse Practitioner Family; Visit Provider Nurse Practitioner Family | DX: I50.32 Chronic diastolic (congestive) heart failure (principal); I35.1 Nonrheumatic aortic (valve) insufficiency; Z87.891 Personal history of nicotine dependence | CPT/HCPCS: 80048; 83880 ==

== ENCOUNTER 2020-05-08 14:35 | Outpatient (CLI) | payer MEDICARE, MEDICAID, SELFPAY ==
--- NOTE | 2020-05-08 14:44 | MR_ITS ---
WS: [id number] MRI HEAD WITH CONTRAST WITH ATTENTION TO THE INTERNAL AUDITORY CANALS TECHNIQUE: Sagittal T1, T2 axial, T2 axial flair, axial susceptibility weighted imaging, axial diffus ion weighted images, and coronal T2 images were obtained. Pre and post T1 axial and post T1 coronal i mages. ADC and FSPGR images. Post gadolinium images with attention to the internal auditory canals. A xial fiesta imaging. CLINICAL INFORMATION: MIXED CONDUCTIVE/SENSORINEURAL HEARING LOSS;OTALGIA RT EAR COMPARISON: CT February 14, 2020 FINDINGS: No evidence of restricted diffusion to suggest acute ischemia. Ventricular system and basal cisterns are patent. Mild small vessel changes. Moderate parenchymal volume loss. Normal posterior fossa. Norm al vascular flow voids at the skull base. No extra-axial fluid collections. No evidence of mass or ma ss effect. Paranasal sinuses and mastoid air cells are well aerated. No hemosiderin on the susceptibly weighted images. No evidence of enhancing IAC or CP angle mass. Nor mal trigeminal nerve root entry zones. Loss of T2 fluid signal intensity on the IAC imaging. 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 Mild narrowing of the right IAC. Left inner ear structures are normal in appearance. M astoid air cells are well aerated. Normal optic chiasm and pituitary infundibulum. Normal cavernous sinuses and Meckel's cave. No abnorm al intracranial enhancement. Normal visualized dural venous sinuses. MR/MR iac's wo/w con* [id number] IMPRESSION: 1. No evidence of restricted diffusion to suggest acute ischemia. 2. Mild small vessel changes with moderate parenchymal volume loss. 3. 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 Left inner ear structures are normal in appearance. This can be further evaluated with temporal bone CT 4. No evidence of enhancing IAC or CP angle mass. 5. Mastoid air cells well aerated. 6. No hemosiderin on susceptibly weighted images.
[2020-05-08] MEDS: gadobenate dimeglumine 20 mL vial IV (15:35)
== END 2020-05-08 14:36 | disposition home or self-care (01) ==
LOC: RADSHAW 14:42
PROVIDERS: PCP Nurse Practitioner Family; Visit Provider Specialist
DX: H90.8 Mixed conductive and sensorineural hearing loss, unspecified (principal); H92.01 Otalgia, right ear
CPT/HCPCS: 70553; A9577

== ENCOUNTER 2020-05-08 22:11 | Emergency (ER) | payer MEDICARE, MEDICAID, SELFPAY ==
[2020-05-08 22:15] VITALS: BP 146/84; PULSE 83; RESP 18; TEMP 36.7; O2SAT 92; BMI 42.5
--- NOTE | 2020-05-08 22:21 | XRR_ITS ---
PROCEDURE INFORMATION: Exam: XR Right Elbow Exam date and time: 05/08/2020 10:24 PM Age: 54 years old Clinical indication: Pain; Elbow; Right TECHNIQUE: Imaging protocol: XR Right elbow. Views: 3 or more views. COMPARISON: No relevant prior studies available. FINDINGS: Bones/joints: Normal. Soft tissues: Normal. XR/XR elbow RT min 3V* [id number] IMPRESSION: No acute findings.
--- NOTE | 2020-05-08 22:21 | XRR_ITS ---
PROCEDURE INFORMATION: Exam: XR Right Shoulder Exam date and time: 05/08/2020 10:24 PM Age: 54 years old Clinical indication: Pain; Shoulder; Right; Additional info: Injury TECHNIQUE: Imaging protocol: XR Right shoulder. Views: 2 or more views. COMPARISON: No relevant prior studies available. FINDINGS: Bones/joints: Normal. Heart/Mediastinum: There is a suggestion of cardiac enlargement on this examination not fully evaluated Soft tissues: Normal. XR/XR shoulder RT min 2V* [id number] IMPRESSION: No acute findings.
--- NOTE | 2020-05-08 22:32 | W.ED.EXTPRO ---
HPI - Extremity Problem General: Chief complaint: Extremity Injury, Upper Stated complaint: fall this morning, right arm in pain Time Seen by Provider: 05/08/20 22:21 Source: patient Mode of arrival: ambulatory Limitations: no limitations History of Present Illness: HPI Narrative: 54-year-old female who states she fell yesterday and landed on her right arm. She got right elbow pain and right shoulder pain from her fall. She does have a contusion to her elbow and states her pain is a 4 out of 10. She denies hitting her head. Denies any other injuries. Denies nausea vomiting. States her pain is worse with movement and improved with rest Associated symptoms: Deny chest pain, fever(s) or rash Review of Systems Const: Denies: fever(s), chills, body aches or change in appetite Eyes: Denies: blurry vision or eye discomfort ENMT: Denies: throat pain or dental pain Card: Denies: chest pain Resp: Denies: dyspnea GI: Denies: abdominal pain, nausea, vomiting or diarrhea : Denies: dysuria Musc: Reports: extremity pain Skin/Breast: Denies: rash Neuro: Denies: headache(s) Psych: Denies: depression Peter/Lymph: Denies: easy bruising All/Imm: Denies: urticaria PFSH ED PFSH: Medical History Asthma 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 Social History Smoking and tobacco status: former smoker Quit status (tobacco): has quit using tobacco Year quit tobacco: 2019 - 1-5 ciggs/day Alcohol intake: never Lives independently: Yes Household members: none Housing: Apartment Current occupational status: disabled History of recent travel: No Current gender identity: Female Physical Exam Const: COMMON NORMALS: no acute distress, patient oriented x3 and healthy appearing HENMT: COMMON NORMALS: normocephalic and atraumatic HEAD & SCALP: normocephalic and atraumatic Eye: COMMON NORMALS: Equal, round and reactive pupils present and EOMs intact bilaterally PUPIL: Yes Equal, round and reactive pupils present Neck/C-Spine: COMMON NORMALS: full ROM and supple Chest: COMMONS NORMALS: normal inspection of the chest and normal palpation of entire chest wall Resp: COMMON NORMALS: normal respiratory effort, No retractions, No use of accessory muscles and clear to auscultation bilaterally AUSCULTATION: clear to auscultation bilaterally Cardio: COMMON NORMALS: regular rate, regular rhythm and No murmurs present (Cardio) RATE: regular rate RHYTHM: regular rhythm GI: COMMON NORMALS: Normal to inspection, nondistended, normoactive bowel sounds present, Soft to palpation, non-tender and no masses PALPATION: Yes Soft to palpation Extremity: COMMON NORMALS: full ROM NARRATIVE EXTREMITY EXAM: Slight contusion to right elbow with tenderness with no obvious deformity Neuro: COMMON NORMALS: patient oriented x3, moves all extremities and no focal motor deficits Psych: COMMON NORMALS: mental status grossly normal, Normal thought process present and cooperative THOUGHT PROCESS: Normal thought process present Skin: COMMON NORMALS: no rashes or lesions noted and no wounds GENERAL SKIN EXAM: no rashes or lesions noted Course Vital Signs: Vital signs: Vital Signs Temperature 98.1 F 05/08/20 22:15 Pulse Rate 68 05/08/20 22:39 Respiratory Rate 18 05/08/20 22:15 Blood Pressure 146/84 05/08/20 22:15 Pulse Oximetry 92 05/08/20 22:15 MDM - Extremity (Nontraumatic) MDM Narrative: Medical decision making narrative: Patient presents here with elbow contusion from a fall. X-ray shows no fracture. She is stable for discharge and is to follow-up with PCP and return if worsening. Imaging Data^: xr right elbow: Attestation: I personally reviewed and interpreted this imaging study as follows: My impression: no acute abnormality xr r shoulder: Attestation: I personally reviewed and interpreted this imaging study as follows: My impression: no acute abnormality Discharge Plan Discharge Patient Disposition: Home Clinical Impression: Fall Qualifiers: Encounter type: initial encounter Qualified Code(s): W19.XXXA - Unspecified fall, initial encounter Contusion of elbow, right Qualifiers: Encounter type: initial encounter Qualified Code(s): S50.01XA - Contusion of right elbow, initial encounter Condition: Stable Prescriptions: No Action montelukast [Singulair] 10 mg tablet 10 mg PO DAILY@0800 RF: 0 levetiracetam 250 mg tablet 250 mg PO BID@0800,1999 RF: 0 aspirin [Adult Aspirin Regimen] 81 mg tablet,delayed release (DR/EC) 81 mg PO DAILY@0800 RF: 0 pantoprazole [Protonix] 40 mg tablet,delayed release (DR/EC) 40 mg PO DAILY@0800 RF: 0 atorvastatin 20 mg tablet 20 mg PO BEDTIME@1999 RF: 0 albuterol sulfate [ProAir HFA] 90 mcg/actuation HFA aerosol inhaler 2 puff INHALATION Q4H PRN (Reason: Shortness Of Breath) RF: 0 metoclopramide HCl [Reglan] 10 mg tablet 10 mg PO Q6H PRN (Reason: nausea and vomiting) RF: 0 metoprolol tartrate 50 mg tablet 50 mg PO BID RF: 0 ipratropium bromide 0.02 % solution 2.5 ml inhalation Q6H PRNRF: 0 budesonide 0.5 mg/2 mL suspension for nebulization 0.5 mg inhalation BID RF: 0 bumetanide 2 mg tablet 2 mg PO DAILY@0800 Qty: 30 RF: 6 potassium chloride 20 mEq tablet extended release 20 meq PO DAILY Qty: 90 RF: 3 cetirizine 10 mg capsule 10 mg PO DAILY@0800 RF: 0 isosorbide mononitrate 30 mg tablet extended release 24 hr 30 mg PO DAILY@0800 RF: 0 spironolactone 25 mg Tablet 25 mg PO DAILY@0800 RF: 0 magnesium oxide 400 mg magnesium Tablet 400 mg PO DAILY@0800 RF: 0 sucralfate 1 gram tablet 1 g PO TID@08,12,20 PRN (Reason: Stomach Upset) RF: 0 hydroxyzine HCl 10 mg tablet 10 mg PO TID PRN (Reason: Anxiety) RF: 0 levothyroxine 100 mcg tablet 100 mcg PO DAILY@0700 RF: 0 Discharge Orders: Discharge ED (Routine); Ordered 05/08/20 Ordered By: Tenisha Casey Referrals: Татьяна Stomr FNP [Primary Care Provider] - 1-3 days Discharge Diet: Advance as tolerated Discharge Activity: Resume usual activity Patient Instructions: Elbow Sprain (ED) Coding Level of Care Code ED Vp Clinical Research for Dc Fwd Exam Comprehensive
[2020-05-08 22:39] VITALS: PULSE 68
[2020-05-08 23:20] VITALS: PULSE 74; RESP 16; O2SAT 98
== END 2020-05-08 23:21 | disposition home or self-care (01) ==
PROVIDERS: Emergency Provider Emergency Medicine; PCP Nurse Practitioner Family
DX: S50.01XA Contusion of right elbow, initial encounter (principal); Z79.82 Long term (current) use of aspirin; J44.9 Chronic obstructive pulmonary disease, unspecified; I11.0 Hypertensive heart disease with heart failure; I50.30 Unspecified diastolic (congestive) heart failure; Z87.891 Personal history of nicotine dependence; W19.XXXA Unspecified fall, initial encounter
CPT/HCPCS: 73030; 73080; 99282

== ENCOUNTER → 2020-05-18 08:48 | Outpatient (BNVA) | payer MEDICARE, MEDICAID, SELFPAY | PROVIDERS: PCP Nurse Practitioner Family; Visit Provider Specialist | DX: M79.642 Pain in left hand (principal) | CPT/HCPCS: 73130 ==

== ENCOUNTER → 2020-05-21 13:26 | Outpatient (BNVA) | payer MEDICARE, MEDICAID, SELFPAY | PROVIDERS: PCP Nurse Practitioner Family; Visit Provider Psychiatry & Neurology Neurology | DX: M25.532 Pain in left wrist (principal); G56.22 Lesion of ulnar nerve, left upper limb; Z87.891 Personal history of nicotine dependence | CPT/HCPCS: 95886; 95908 ==

== ENCOUNTER → 2020-05-27 10:31 | Outpatient (BNVA) | payer MEDICARE, MEDICAID, SELFPAY | PROVIDERS: PCP Nurse Practitioner Family; Visit Provider Specialist | DX: M54.2 Cervicalgia (principal) | CPT/HCPCS: 72050 ==

== ENCOUNTER 2020-05-29 09:32 | Outpatient (CLI) | payer MEDICARE, MEDICAID, SELFPAY ==
--- NOTE | 2020-05-29 09:39 | CT_ITS ---
WS: [id number] CT TEMPORAL BONES TECHNIQUE: Noncontrast CT of the temporal bones with coronal and sagittal reformatted images. 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 FINDINGS: RIGHT: Sclerosis involving the right temporal bone and otic capsule with ossification of the vestibul e and semicircular canals. Complete obliteration of the membranous labyrinth. Ossification of the marlon hlea. Findings compatible with labyrinthitis ossificans. Mastoid air cells are well aerated. Normal external auditory canal. Ossicles are normal in appearance . Middle ear is well aerated. Normal tegmen tympani. Prussak's space is normal. LEFT: Mastoid air cells are well aerated. Normal external auditory canal. Ossicles are normal in appearance . Middle ear is well aerated. Normal tegmen tympani. Semicircular canals and cochlea are normal in ap pearance. Prussak's space is normal. Normal inner ear structures. Normal vestibular aqueduct. Facial nerve recess is normal. Visualized intracranial contents and posterior fossa are normal. CT/CT temporal bone wo con* [id number] IMPRESSION: 1. Sclerosis and ossification with complete bony replacement of the right inne r ear structures and otic capsule compatible with labyrinthitis ossificans. 2. Normal left inner ear structures.
== END 2020-05-29 09:33 | disposition home or self-care (01) ==
LOC: CT 09:35
PROVIDERS: PCP Nurse Practitioner Family; Visit Provider Specialist
DX: H90.8 Mixed conductive and sensorineural hearing loss, unspecified (principal); H92.01 Otalgia, right ear
CPT/HCPCS: 70480

== ENCOUNTER 2020-06-15 09:23 | Outpatient (CLI) | payer MEDICARE, MEDICAID, SELFPAY ==
--- NOTE | 2020-06-15 09:30 | MR_ITS ---
WS: [id number] MRI CERVICAL SPINE NONCONTRAST HISTORY: M54.2 - Cervicalgia COMPARISON: 07/27/[address] 06/09/2016 Technique: Multiplanar, multisequence noncontrast imaging of the cervical spine. Reversal of the normal cervical lordosis. Asymmetric disc space narrowing at C5-6. Patient has known ankylosis involving the facet joints and p edicles and posterior vertebral body at C5-6. Similar findings compared to prior studies. Craniocervical junction, C1 and C2 relationship, odontoid process and soft tissues are normal. C2-C3: Normal. C3-C4: Mild annular disc bulge. No stenosis C4-C5: Mild annular disc bulging and facet arthritis. No significant stenosis. C5-C6: Rudimentary disc. There is mild facet joint arthritis. Mild LEFT foraminal narrowing. C6-C7: Mild annular disc bulging with very mild narrowing of the foramen bilaterally. C7-T1: Normal. Paravertebral soft tissues are normal. MR/MR cervical spin wo con* [id number] IMPRESSION: 1. Reversal of the normal cervical lordosis centered at C5-C6 is similar to pr ior studies. 2. Ankylosis across the posterior C5 and C6 vertebral bodies and the facet nirali nts bilaterally. These findings are probably congenital abnormality. 3. No significant central or foraminal stenosis. Similar changes in the cervic al spine as compared to 2012.
== END 2020-06-15 09:24 | disposition home or self-care (01) ==
LOC: RADSHAW 09:28
PROVIDERS: PCP Nurse Practitioner Family; Visit Provider Specialist
DX: M54.2 Cervicalgia (principal); M43.22 Fusion of spine, cervical region
CPT/HCPCS: 72141

== ENCOUNTER 2020-06-16 19:50 | Observation (INO) | payer MEDICARE, MEDICAID, SELFPAY ==
[2020-06-16] VITALS (13 sets, daily range): BP systolic 118–152; BP diastolic 78–93; PULSE 72–90; RESP 15–24; TEMP 36.6–36.7; O2SAT 92–100; BMI 42.5
--- NOTE | 2020-06-16 19:54 | XRR_ITS ---
PROCEDURE INFORMATION: Exam: XR Chest Exam date and time: 06/16/2020 8:08 PM Age: 54 years old Clinical indication: Dyspnea; Additional info: Dyspnea/chf/copd TECHNIQUE: Imaging protocol: XR of the chest. Views: 1 view. COMPARISON: CR XR chest 1V portable [id number] 01/30/2020 7:54 PM FINDINGS: Lungs: Unremarkable. No consolidation. Mild chronic interstitial lung change. Pleural spaces: Unremarkable. No pleural effusion. No pneumothorax. Heart/Mediastinum: Unremarkable. No cardiomegaly. Bones/joints: Unremarkable. XR/XR chest 1V portable [id number] IMPRESSION: 1. No acute findings. 2. No change from comparison.
--- NOTE | 2020-06-16 19:55 | ECG_ITS ---
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 Measurements Intervals [place] Rate: 69 P: 60 FL: 138 QRS: 51 QRSD: 104 T: 57 QT: 393 QTc: 422 Interpretive Statements SINUS RHYTHM WITH SINUS ARRHYTHMIA Compared to ECG 02/14/2020 20:41:24 No significant changes Electronically Signed On 06-17-2020 18:25:47 CDT by Amanda Bourgeois M.D. [id number]
[2020-06-16 20:31] LABS: ABG PCO2 58.3 mmHg (35-45); ABG PH Result 7.39 (7.35-7.45); Arterial Blood Gas Hematocrit 29.9 % (37-47); Base Excess ABG 8.8 mmol/L (-2.0-2.0); Blood Gas Allen Test Pos; Blood Gas Sample Site Radial, left; Blood Gas Sample Type Arterial; Carboxyhemoglobin 2.3 %THgb (0.4-20.1); HCO3 ABG 35.2 mmol/L (22-26); HGB O2 Sat 92.3 % (95-100); Methemoglobin 1.5 % (0.4-1.5); Oxygen Device NC; Total Hemoglobin 9.8 g/dL (12-16)
--- NOTE | 2020-06-16 20:34 | PC.PHAR ---
pt unable to verify medications-pt states she has a nurse from [facility] sets up her meds-[facility]-medications entered are meds from previous entered med list and from what ext med history has filled recently
[2020-06-16] MEDS: ipratropium-albuterol 3 mL Neb INHALATION (20:37)
[2020-06-16 20:58] LABS: Basophils # 0.1 10^3/uL (0.0-0.1); Basophils % 0.8 %; Eosinophils # 0.3 10^3/uL (0.0-0.8); Eosinophils % 2.7 %; Hematocrit 37.6 % (37.0-47.0); Hemoglobin 11.2 g/dL (11.5-15.3); Lymphocytes # 2.6 10^3/uL (0.8-4.8); Lymphocytes % 25.6 %; Mean Corpuscular HGB Conc 29.8 g/dL (30.0-36.0); Mean Corpuscular Hemoglobin 25.1 pg (28.0-34.0); Mean Corpuscular Volume 84.3 fL (81-99); Mean Platelet Volume 9.7 fL (7.4-10.4); Monocytes # 0.9 10^3/uL (0.2-0.9); Monocytes % 8.7 %; Neutrophils # 6.19 10^3/uL (1.8-7.7); Nucleated Red Blood Cells % 0 %; Platelet Count 327 10^3/cmm (130-400); Red Blood Count 4.46 10^6/uL (4.1-5.3); Red Cell Distribution Width 14.4 % (12.1-15.1)
[2020-06-16 21:13] LABS: D Dimer 0.51 ug/mIFEU (0-0.59)
[2020-06-16 21:21] LABS: Lactate (Lactic Acid level) 0.9 mmol/L (0.5-2.2)
[2020-06-16 21:25] LABS: Bilirubin Urine Neg (Negative); Blood Urine 2+ (Negative); Glucose Urine UA Norm (Normal); Ketones Urine Negative (Negative); Leukocyte Esterase Urine Negative (Negative); Nitrate Urine Negative (Negative); Protein Urine Neg (Negative); Urine Appearance Hazy (CLEAR); Urine Color Yellow (Yellow); Urobilinogen Urine Norm (Negative); pH Urine 5 (5-7)
[2020-06-16 21:25] LABS: Troponin(5th) Baseline 20 ng/L (0-10)
[2020-06-16 21:26] LABS: Add Urine Microscopic? YES
[2020-06-16 21:27] LABS: Add Urine Culture? No; RBC Urine 0-4 /hpf (0-2); WBC Urine RARE /hpf (0-5)
[2020-06-16 21:32] LABS: Alanine Aminotransferase 10 U/L (0-33); Albumin Level 3.9 g/dL (3.5-5.2); Alkaline Phosphatase 107 IU/L (35-105); Anion Gap 11.8 (5-19); Aspartate Amino Transferase 14 U/L (0-32); Blood Urea Nitrogen 17 mg/dL (6-20); Calcium 8.8 mg/dL (8.5-10.5); Carbon Dioxide 34 mmol/L (22-29); Chloride 97 mmol/L (98-107); Globulin 3.1 g/dL (1.3-4.6); Glucose 102 mg/dL (65-115); NT Pro B Type Natriuretic Pept 101 pg/mL (0-125); Osmolality Calculated 290 mOsm/kg (285-295); Potassium 3.8 mmol/L (3.5-5.1); Sodium 139 mmol/L (136-145)
--- NOTE | 2020-06-16 21:55 | ECG_ITS ---
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 Measurements Intervals [place] Rate: 78 P: 64 IN: 140 QRS: 46 QRSD: 106 T: 54 QT: 394 QTc: 450 Interpretive Statements SINUS RHYTHM Compared to ECG 06/16/2020 19:59:28 Sinus arrhythmia no longer present Electronically Signed On 06-17-2020 18:27:49 CDT by Amanda Bourgeois M.D. [id number]
--- NOTE | 2020-06-16 22:14 | ED_ITS ---
HPI - SOB/Dyspnea General: Chief Complaint: Shortness of Breath/Dyspnea Stated Complaint: SOB/DIZZY Time Seen by Provider: 06/16/20 19:54 History of Present Illness: HPI Narrative: The patient is a 54-year-old female with past medical history CHF and COPD. She comes to the ER complaining of increased shortness of breath worsening for the past couple days at home. She wears 2 L via nasal cannula chronically at all times. EMS found her hypoxic at 88% and increased her to 4 L. On arrival she is wheezy bilaterally. She says she has midsternal chest pain when she coughs, moves, takes deep breaths. MD elicited complaint: shortness of breath and cough Pertinent past history: COPD and congestive heart failure Context: occurred during exertion Timing: constant Severity: moderate Exacerbating factors: exertion and coughing Relieving factors: oxygen and bronchodilators Known history of: COPD and congestive heart failure Associated symptoms: Deny abdominal pain, chest pain, dizziness, extremity pain, orthopnea, palpitations or polyuria Review of Systems General: Reports: 10 or more systems reviewed and unremarkable except in HPI and below Const: Denies: fatigue Eyes: Denies: change in vision, blurry vision or eye redness ENMT: Denies: throat pain, swelling of lips/tongue, ear or mastoid pain or nasal congestion Card: Denies: chest pain, palpitations, irregular heart rhythm, edema, dyspnea on exertion or orthopnea Resp: Reports: dyspnea and wheezing; Denies: productive cough or non-productive cough GI: Denies: abdominal pain, diarrhea or GI cramping : Denies: flank pain, difficulty voiding, urinary frequency or urinary urgency Musc: Denies: neck pain, back pain, extremity pain, joint pain, joint redness, limited range of motion or muscle weakness Skin/Breast: Denies: rash, pruritus, erythema, skin pain or skin tenderness Neuro: Denies: headache(s), numbness in extremities, weakness in extremities, sensory changes, difficulty walking, dizziness, confusion or Slurred speech present Psych: Denies: anxiety or depression Endo: Denies: polyuria All/Imm: Denies: urticaria, throat swelling or tongue swelling PFSH ED PFSH: Medical History Asthma 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 Social History Smoking and tobacco status: former smoker Quit status (tobacco): has quit using tobacco Year quit tobacco: 2019 - 1-5 ciggs/day Alcohol intake: never Lives independently: Yes Household members: none Housing: Apartment Current occupational status: disabled History of recent travel: No Current gender identity: Female Physical Exam Const: COMMON NORMALS: no acute distress, average body habitus, patient oriented x3, no limitations, healthy appearing, alert and well nourished GENERAL APPEARANCE: cooperative, comfortable, well kempt and well developed ORIENTATION/CONSCIOUSNESS: Yes awake, Yes oriented to person, Yes oriented to place and Yes oriented to time HENMT: COMMON NORMALS: normocephalic, external ears normal and Normal external nose present HEAD & SCALP: normal to inspection and normocephalic NOSE: Normal external nose present EXTERNAL EAR: Yes external ears normal MOUTH: Normal oral and palatal mucosa present THROAT: posterior oropharynx normal Eye: COMMON NORMALS: Equal, round and reactive pupils present and EOMs intact bilaterally GENERAL EYE: appearance normal, both eyes and all related structures PUPIL: Yes Equal, round and reactive pupils present Neck/C-Spine: COMMON NORMALS: full ROM, no lymphadenopathy, no meningeal signs and no JVD GENERAL: Yes normal visual inspection Lymph: LYMPHATIC: no lymphadenopathy noted Chest: COMMONS NORMALS: normal inspection of the chest and normal palpation of entire chest wall Resp: COMMON NORMALS: No retractions, No use of accessory muscles and percussion normal EFFORT & INSPECTION: Yes able to speak in complete sentences, Yes tachypneic and Yes respiratory distress (mild) AUSCULTATION: wheezes and diminished lung sounds PERCUSSION: percussion normal Cardio: COMMON NORMALS: no JVD, regular rate, regular rhythm, S1 normal heart sound present, S2 normal heart sound present and Peripheral pulses 2+ throughout RATE: regular rate RHYTHM: regular rhythm HEART SOUNDS: S1 normal heart sound present and S2 normal heart sound present PERIPHERAL PULSES: Peripheral pulses 2+ throughout GI: COMMON NORMALS: Normal to inspection, nondistended, normoactive bowel sounds present, Soft to palpation, non-tender and no masses INSPECTION: Yes normal to inspection PALPATION: Yes Soft to palpation : COMMON NORMALS: Yes no CVA tenderness BLADDER/KIDNEY EXAM: Yes no CVA tenderness Back/Pelvis: COMMON NORMALS: no CVA tenderness, thoracic and lumbar spine normal to inspection, no thoracic nor lumbar tenderness and thoraco-lumbar ROM normal Extremity: COMMON NORMALS: normal to inspection, full ROM, capillary refill normal, no joint enlargement and no pedal edema GENERAL: Yes normal exam except as noted Neuro: COMMON NORMALS: patient oriented x3, CN's II-XII intact bilaterally, moves all extremities, no focal motor deficits, no sensory deficits noted and gait normal SENSORIUM/ORIENTATION: Yes alert, Yes oriented to person, Yes oriented to place and Yes oriented to time MENINGEAL SIGNS: Yes no meningeal signs Psych: COMMON NORMALS: mental status grossly normal, Normal thought process present, cooperative, normal affect and speech normal APPEARANCE: Yes well kempt ATTITUDE: Yes calm SPEECH: Yes normal speech THOUGHT PROCESS: Normal thought process present Skin: COMMON NORMALS: no rashes or lesions noted GENERAL SKIN EXAM: no rashes or lesions noted Course Vital Signs: Vital signs: Vital Signs Temperature 98.1 F 06/16/20 19:55 Pulse Rate 77 06/16/20 21:48 Respiratory Rate 22 H 06/16/20 21:00 Blood Pressure 152/79 06/16/20 21:00 Pulse Oximetry 100 06/16/20 21:48 MDM - SOB/Dyspnea MDM Narrative: Medical decision making narrative: Patient comes to the ER complaining of increased shortness of breath. She has a history of COPD and there is requiring more oxygen. She was very wheezy on arrival. Given a DuoNeb and Solu-Medrol. ABG showed increased CO2 and she was eventually placed on BiPAP as well. CXR shows no acute findings. Discussed with Dr. Leblanc who accepts for admission Lab Data: Labs: Lab Results 06/16/20 06/16/20 06/16/20 Range/Units 20:20 20:52 20:52 WBC 10.0 (4.0-10.0) 10^3/ uL RBC 4.46 (4.1-5.3) 10^6/u L Hgb 11.2 L (11.5-15.3) g/dL Hct 37.6 (37.0-47.0) % MCV 84.3 (81-99) fL MCH 25.1 L (28.0-34.0) pg MCHC 29.8 L (30.0-36.0) g/dL RDW 14.4 (12.1-15.1) % Plt Count 327 (130-400) 10^3/c mm MPV 9.7 (7.4-10.4) fL Neut % (Auto) 62.0 % Lymph % (Auto) 25.6 % [place] % (Auto) 8.7 % Eos % (Auto) 2.7 % Baso % (Auto) 0.8 % Neut # (Auto) 6.19 (1.8-7.7) 10^3/u L Lymph # (Auto) 2.6 (0.8-4.8) 10^3/u L [place] # (Auto) 0.9 (0.2-0.9) 10^3/u L Eos # (Auto) 0.3 (0.0-0.8) 10^3/u L Baso # (Auto) 0.1 (0.0-0.1) 10^3/u L Nucleated RBC % (a uto) 0 % Nucleated RBCs # 0.0 /100WBC D-Dimer 0.51 (0-0.59) ug/mIFE U Specimen Type Arterial Sample Site Radial, left ABG pH 7.39 (7.35-7.45) ABG pCO2 58.3 H (35-45) mmHg ABG pO2 101.0 H (80.0-100.0) mmH g ABG HCO3 35.2 H (22-26) mmol/L ABG Base Excess 8.8 H (-2.0-2.0) mmol/ L Nestor Test Pos Hematocrit 29.9 L (37-47) % Hgb O2 Saturation 92.3 L (95-100) % Carboxyhemoglobin 2.3 (0.4-20.1) %THgb Methemoglobin 1.5 (0.4-1.5) % Total Hemoglobin 9.8 L (12-16) g/dL O2 Delivery Device Nc O2 Liters/Min 2.0 % Aging Room Hand ID Jlg Sodium (136-145) mmol/L Potassium (3.5-5.1) mmol/L Chloride (98-107) mmol/L Carbon Dioxide (22-29) mmol/L Anion Gap (5-19) BUN (6-20) mg/dL Creatinine (0.5-0.9) mg/dL GFR Calculation (90-130) mL/min Glucose (65-115) mg/dL Calculated Osmolal ity (285-295) mOsm/k g Lactate (0.5-2.2) mmol/L Calcium (8.5-10.5) mg/dL Total Bilirubin (0.15-1.2) mg/dL AST (0-32) U/L ALT (0-33) U/L Alkaline Phosphata se (35-105) IU/L Troponin T Baselin e (0-10) ng/L NT-Pro-B Natriuret Pep (0-125) pg/mL Total Protein (6.6-8.7) g/dL Albumin (3.5-5.2) g/dL Globulin (1.3-4.6) g/dL Urine Color (Yellow) Urine Appearance (CLEAR) Urine pH (5-7) Ur Specific Gravit y (1.005-1.030) Urine Protein (Negative) Urine Glucose (UA) (Normal) Urine Ketones (Negative) Urine Blood (Negative) Urine Nitrate (Negative) Urine Bilirubin (Negative) Urine Urobilinogen (Negative) mg/dL Ur Leukocyte Jacqui ase (Negative) Urine RBC (0-2) /hpf Urine WBC (0-5) /hpf Ur Squamous Epith Cells (0-5) /hpf Amorphous Sediment Urine Bacteria (NONE) /hpf 06/16/20 06/16/20 06/16/20 Range/Units 20:52 20:52 20:52 WBC (4.0-10.0) 10^3/ uL RBC (4.1-5.3) 10^6/u L Hgb (11.5-15.3) g/dL Hct (37.0-47.0) % MCV (81-99) fL MCH (28.0-34.0) pg MCHC (30.0-36.0) g/dL RDW (12.1-15.1) % Plt Count (130-400) 10^3/c mm MPV (7.4-10.4) fL Neut % (Auto) % Lymph % (Auto) % [place] % (Auto) % Eos % (Auto) % Baso % (Auto) % Neut # (Auto) (1.8-7.7) 10^3/u L Lymph # (Auto) (0.8-4.8) 10^3/u L [place] # (Auto) (0.2-0.9) 10^3/u L Eos # (Auto) (0.0-0.8) 10^3/u L Baso # (Auto) (0.0-0.1) 10^3/u L Nucleated RBC % (a uto) % Nucleated RBCs # /100WBC D-Dimer (0-0.59) ug/mIFE U Specimen Type Sample Site ABG pH (7.35-7.45) ABG pCO2 (35-45) mmHg ABG pO2 (80.0-100.0) mmH g ABG HCO3 (22-26) mmol/L ABG Base Excess (-2.0-2.0) mmol/ L Nestor Test Hematocrit (37-47) % Hgb O2 Saturation (95-100) % Carboxyhemoglobin (0.4-20.1) %THgb Methemoglobin (0.4-1.5) % Total Hemoglobin (12-16) g/dL O2 Delivery Device O2 Liters/Min % Aging Room Hand ID Sodium 139 (136-145) mmol/L Potassium 3.8 (3.5-5.1) mmol/L Chloride 97 L (98-107) mmol/L Carbon Dioxide 34 H (22-29) mmol/L Anion Gap 11.8 (5-19) BUN 17 (6-20) mg/dL Creatinine 0.9 (0.5-0.9) mg/dL GFR Calculation 65.0 L (90-130) mL/min Glucose 102 (65-115) mg/dL Calculated Osmolal ity 290 (285-295) mOsm/k g Lactate 0.9 (0.5-2.2) mmol/L Calcium 8.8 (8.5-10.5) mg/dL Total Bilirubin 1.0 (0.15-1.2) mg/dL AST 14 (0-32) U/L ALT 10 (0-33) U/L Alkaline Phosphata se 107 H (35-105) IU/L Troponin T Baselin e 20 H (0-10) ng/L NT-Pro-B Natriuret Pep 101 (0-125) pg/mL Total Protein 7.0 (6.6-8.7) g/dL Albumin 3.9 (3.5-5.2) g/dL Globulin 3.1 (1.3-4.6) g/dL Urine Color (Yellow) Urine Appearance (CLEAR) Urine pH (5-7) Ur Specific Gravit y (1.005-1.030) Urine Protein (Negative) Urine Glucose (UA) (Normal) Urine Ketones (Negative) Urine Blood (Negative) Urine Nitrate (Negative) Urine Bilirubin (Negative) Urine Urobilinogen (Negative) mg/dL Ur Leukocyte Jacqui ase (Negative) Urine RBC (0-2) /hpf Urine WBC (0-5) /hpf Ur Squamous Epith Cells (0-5) /hpf Amorphous Sediment Urine Bacteria (NONE) /hpf 06/16/20 Range/Units 21:00 WBC (4.0-10.0) 10^3/ uL RBC (4.1-5.3) 10^6/u L Hgb (11.5-15.3) g/dL Hct (37.0-47.0) % MCV (81-99) fL MCH (28.0-34.0) pg MCHC (30.0-36.0) g/dL RDW (12.1-15.1) % Plt Count (130-400) 10^3/c mm MPV (7.4-10.4) fL Neut % (Auto) % Lymph % (Auto) % [place] % (Auto) % Eos % (Auto) % Baso % (Auto) % Neut # (Auto) (1.8-7.7) 10^3/u L Lymph # (Auto) (0.8-4.8) 10^3/u L [place] # (Auto) (0.2-0.9) 10^3/u L Eos # (Auto) (0.0-0.8) 10^3/u L Baso # (Auto) (0.0-0.1) 10^3/u L Nucleated RBC % (a uto) % Nucleated RBCs # /100WBC D-Dimer (0-0.59) ug/mIFE U Specimen Type Sample Site ABG pH (7.35-7.45) ABG pCO2 (35-45) mmHg ABG pO2 (80.0-100.0) mmH g ABG HCO3 (22-26) mmol/L ABG Base Excess (-2.0-2.0) mmol/ L Nestor Test Hematocrit (37-47) % Hgb O2 Saturation (95-100) % Carboxyhemoglobin (0.4-20.1) %THgb Methemoglobin (0.4-1.5) % Total Hemoglobin (12-16) g/dL O2 Delivery Device O2 Liters/Min % Aging Room Hand ID Sodium (136-145) mmol/L Potassium (3.5-5.1) mmol/L Chloride (98-107) mmol/L Carbon Dioxide (22-29) mmol/L Anion Gap (5-19) BUN (6-20) mg/dL Creatinine (0.5-0.9) mg/dL GFR Calculation (90-130) mL/min Glucose (65-115) mg/dL Calculated Osmolal ity (285-295) mOsm/k g Lactate (0.5-2.2) mmol/L Calcium (8.5-10.5) mg/dL Total Bilirubin (0.15-1.2) mg/dL AST (0-32) U/L ALT (0-33) U/L Alkaline Phosphata se (35-105) IU/L Troponin T Baselin e (0-10) ng/L NT-Pro-B Natriuret Pep (0-125) pg/mL Total Protein (6.6-8.7) g/dL Albumin (3.5-5.2) g/dL Globulin (1.3-4.6) g/dL Urine Color Yellow (Yellow) Urine Appearance Hazy A (CLEAR) Urine pH 5 (5-7) Ur Specific Gravit y 1.030 (1.005-1.030) Urine Protein Neg (Negative) Urine Glucose (UA) Norm (Normal) Urine Ketones Negative (Negative) Urine Blood 2+ H (Negative) Urine Nitrate Negative (Negative) Urine Bilirubin Neg (Negative) Urine Urobilinogen Norm (Negative) mg/dL Ur Leukocyte Jacqui ase Negative (Negative) Urine RBC 0-4 H (0-2) /hpf Urine WBC Rare (0-5) /hpf Ur Squamous Epith Cells 5-10 H (0-5) /hpf Amorphous Sediment Not Reportable Urine Bacteria None (NONE) /hpf Discharge Plan Discharge Patient Disposition: Admitted As Inpatient Clinical Impression: Acute exacerbation of chronic obstructive airways disease, Acute hypercapnic respiratory failure Condition: Stable Coding Level of Care Code ED Trip Rider for Dc Fwd Exam Comprehensive
--- NOTE | 2020-06-16 22:29 | PM.HP ---
Providers/Chief Complaint Primary Care Provider: Татьяна Storm Chief Complaint: SOB/DIZZY History of Present Illness Crystal Pierre is a 54 year old female who has been seen by orthopedics for numbness and tingling of her medial digits of left hand was diagnosed withC6-C7 radiculopathy MRI showed moderate cervical stenosis, has history of congestive heart failure, COPD, hypertension, seizure disorder presented today with chief complaint of worsening shortness of breath. Patient is stating that she went to Dr. Childs's clinic today, around evening she started experiencing shortness of breath with chest pain. She takes Bumex on daily basis, uses oxygen 2 L on as-needed basis, currently smokes 2 to 3 cigarettes a day. No recent fever, worsening of cough, nausea, vomiting dysuria or diarrhea. She is describing her symptoms as shortness of breath when she was changing her clothes, she was experiencing wheezing, she was also experiencing left-sided chest pain on deep breathing as well. She does endorse cough which she is attributing to chronic smoker's cough no recent change in sputum color or volume. Diagnostics in the ER revealed compensated acute on chronic hypercapnia, no active signs of pneumonia, she has cushingoid appearance, hemodynamically stable no signs of sepsis no worsening of congestive heart failure, to decrease her work of breathing she was put on BiPAP settings 18/8 FiO2 50% respiratory rate 12, she was saturating well, no active cyanosis or conversational dyspnea ABG revealed compensated hypercapnia EKG without any ischemic or infarctive changes In the ER she received methylprednisolone 125 mg IV along DuoNeb treatment Review of Systems Const: Reports: body aches and change in weight; Denies: fever(s) Eyes: Denies: change in vision ENMT: Denies: throat pain Card: Reports: swelling of feet/ankles and dyspnea on exertion; Denies: chest pain, irregular heart rhythm or syncope Resp: Reports: dyspnea, productive cough and pain on inspiration GI: Denies: abdominal pain : Denies: flank pain Musc: Reports: muscle cramps Skin/Breast: Denies: rash Neuro: Denies: headache(s) Psych: Denies: anxiety Endo: Denies: polyuria Peter/Lymph: Denies: easy bruising All/Imm: Denies: urticaria Medications/Allergies Home Medications Medication Instructions Recorded Confirmed Last Taken Type albuterol sulfate 90 mcg/actuation 2 puff INHALATION Q4H PRN 02/15/19 06/16/20 10/23/19 History aerosol inhaler aspirin 81 mg tablet,delayed 81 mg PO DAILY 02/15/19 06/16/20 02/14/20 History release atorvastatin 20 mg tablet 20 mg PO BEDTIME 02/15/19 06/16/20 02/14/20 History levetiracetam 250 mg tablet 250 mg PO BID 02/15/19 06/16/20 10/23/19 History montelukast 10 mg tablet 10 mg PO DAILY 02/15/19 06/16/20 02/14/20 History pantoprazole 40 mg tablet,delayed 40 mg PO DAILY 02/15/19 06/16/20 02/14/20 History release magnesium oxide 400 mg PO DAILY 02/18/19 06/16/20 02/14/20 History spironolactone 25 mg PO DAILY 02/18/19 06/16/20 02/14/20 History cetirizine 10 mg capsule 10 mg PO DAILY 03/04/19 06/16/20 02/14/20 History hydroxyzine HCl 10 mg PO TID PRN 09/16/19 06/16/20 10/23/19 History sucralfate 1 g PO TID 09/16/19 06/16/20 02/14/20 History isosorbide mononitrate 30 mg PO DAILY 02/14/20 06/16/20 02/14/20 History budesonide 0.5 mg/2 mL suspension 0.5 mg INHALATION BID 04/16/20 06/16/20 Unknown History for nebulization ipratropium bromide 0.02 % 2.5 ml INHALATION Q6H PRN 04/16/20 06/16/20 Unknown History solution for inhalation metoclopramide HCl 10 mg tablet 10 mg PO Q6H PRN tab 04/16/20 06/16/20 Unknown History bumetanide 2 mg PO DAILY 06/16/20 06/16/20 Unknown History diclofenac sodium 2 - 4 g TOPICAL BID PRN 06/16/20 06/16/20 Unknown History levothyroxine 150 mcg PO DAILY 06/16/20 06/16/20 Unknown History metoprolol succinate 50 mg PO BID 06/16/20 06/16/20 Unknown History potassium chloride 20 meq PO DAILY 06/16/20 06/16/20 Unknown History Allergies Allergy/AdvReac Type Severity Reaction Status Date / Time chlorpromazine Allergy Unknown ALGY-Rash Verified 06/16/20 20:00 diphenhydramine Allergy Unknown Unknown Verified 06/16/20 20:00 Iodinated Contrast Media Allergy Unknown ALGY-Hives Verified 06/16/20 20:00 tramadol Allergy Unknown Verified 06/16/20 20:00 amoxicillin AdvReac Unknown ADR-Nausea Verified 06/16/20 20:00 codeine AdvReac Unknown ADR-Vomitin Verified 06/16/20 20:00 g Penicillins AdvReac Unknown ADR-Vomitin Verified 06/16/20 20:00 g PFSH Acute PFSH: Medical History Asthma 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 Social History Smoking and tobacco status: former smoker Quit status (tobacco): has quit using tobacco Year quit tobacco: 2019 - 1-5 ciggs/day Alcohol intake: never Lives independently: Yes Household members: none Housing: Apartment Current occupational status: disabled History of recent travel: No Current gender identity: Female Vitals/I&O/Wt Last Vital Signs Temp 98.1 F 06/16/20 19:55 Pulse 77 06/16/20 21:48 Resp 22 H 06/16/20 21:00 BP 152/79 06/16/20 21:00 Pulse Ox 188 H 06/16/20 21:48 Weight last 48 hrs Weight 123.377 kg Physical Exam Narrative: EXAM NARRATIVE: Middle-age female currently on BiPAP, appears stated age, with active signs of fluid overload/cushingoid appearance Awake alert oriented x3 GCS 15 No neurological deficits No active cyanosis Currently on BiPAP settings changed 12/6 FiO2 50% respiratory rate 11 S1, S2 no murmur appreciated active signs of heart failure Lower extremity lymphedema, venous stasis dermatitis no active cellulitis, keratoderma of left lower extremity noted Abdomen soft, distended, central obesity Bilateral assisted breath sounds no active wheezing noted No joint swelling Has mild intellectual disability She has exotropia of right eye/strabismus Data : 06/16/20 20:52 06/16/20 20:52 A&P Assessment and plan (1) Acute exacerbation of chronic obstructive airways disease: Status: Acute (2) Acute hypercapnic respiratory failure: Status: Acute (3) Cervical radiculopathy: Status: Acute (4) Pain of hand: Status: Acute (5) Diastolic CHF: Status: Acute Qualifiers: Heart failure chronicity: chronic Qualified Code(s): I50.32 - Chronic diastolic (congestive) heart failure (6) Diplopia: Status: Acute (7) Thyroid function study abnormality: Status: Acute (8) Learning disability: Status: Acute Additional A&P Information Acute on chronic hypercapnic respiratory failure Well compensated with appropriate rise in bicarb, currently being admitted because of active wheezing and increased work of breathing Currently doing well on BiPAP pH normal no hypoxia noted We will keep her on BiPAP overnight Patient is actively smoking which I believe is the cause of mild distress, patient was counseled and advised to stop smoking, she uses 2 L of oxygen on as-needed basis, she will definitely benefit from a sleep study, has cushingoid appearance, will check TSH as well continue levothyroxine regimen for now Diastolic congestive heart failure She seems to have chronic lymphedema of lower extremities I will keep her on Bumex 2 mg for now which is her home regimen BNP not high however he has BMI above 40 Chest x-ray does not show any signs of fluid overload or consolidation Cervical radiculopathy No active complaints of her hand numbness Has recently seen Dr. 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
[2020-06-16 23:10] LABS: Troponin 5 2HR 12.33 ng/L (0-10)
[2020-06-16 23:15] LABS: Troponin 5 2HR Delta -7.67 ABS# (0-10)
[2020-06-16 23:18] LABS: Thyroid Stimulating Hormone 0.47 uIU/mL (0.27-4.20)
[2020-06-17 00:44] VITALS: BP 179/78; PULSE 82; RESP 20; O2SAT 95
[2020-06-17] MEDS: enoxaparin 40 mg/0.4 mL Syringe SUBCUT ×2 (01:14→23:34)
[2020-06-17 01:45] VITALS: PULSE 76; RESP 17; O2SAT 96
--- NOTE | 2020-06-17 01:55 | ECG_ITS ---
[facility] ED Test Date: 2020-06-17 Pat Name: Cyrstal Pierre Department: Room: 255 Gender: Female Soot Blower: : 1965 Requested By: Eliud Aranda Order Number: [id number] Khanna MD: Amanda Bourgeois M.D. Measurements Intervals [place] Rate: 76 P: 56 SD: 139 QRS: 45 QRSD: 106 T: 46 QT: 397 QTc: 448 Interpretive Statements SINUS RHYTHM POSSIBLE RIGHT VENTRICULAR CONDUCTION DELAY [RSR (QR) IN V1/V2] Compared to ECG 06/16/2020 22:06:22 No significant changes Electronically Signed On 06-17-2020 18:27:15 CDT by Amanda Bourgeois M.D. [id number]
[2020-06-17 03:09] LABS: Anion Gap 11.6 (5-19); Blood Urea Nitrogen 19 mg/dL (6-20); Calcium 8.8 mg/dL (8.5-10.5); Carbon Dioxide 31 mmol/L (22-29); Chloride 99 mmol/L (98-107); Glomerular Filtration Rate 74.5 mL/min (90-130); Glucose 181 mg/dL (65-115); Osmolality Calculated 293 mOsm/kg (285-295); Potassium 3.6 mmol/L (3.5-5.1); Sodium 138 mmol/L (136-145)
[2020-06-17 03:36] VITALS: PULSE 78; RESP 17; O2SAT 93
[2020-06-17 04:30] VITALS: BP 127/67; PULSE 75; RESP 18; TEMP 36.5; O2SAT 95
[2020-06-17 05:11] LABS: ABG PCO2 47.4 mmHg (35-45); ABG PH Result 7.43 (7.35-7.45); Arterial Blood Gas Hematocrit 34.3 % (37-47); Base Excess ABG 6.5 mmol/L (-2.0-2.0); Blood Gas Allen Test Pos; Blood Gas Sample Site Radial, left; Blood Gas Sample Type Arterial; HCO3 ABG 31.7 mmol/L (22-26); Oxygen Device BIPAP; PO2 ABG 95.9 mmHg (80.0-100.0)
[2020-06-17 07:06] LABS: Glucose Point of Care 177 mg/dL (70-110)
[2020-06-17] MEDS: pantoprazole DR 40 mg Tablet PO (08:17)
[2020-06-17] MEDS: predniSONE 20 mg Tablet 40 MG PO (08:17)
[2020-06-17] MEDS: metoprolol succinate ER (24 HR) 50 mg Tablet PO ×2 (08:17→18:09)
[2020-06-17] MEDS: potassium chloride ER 20 mEq Tablet PO (08:17)
[2020-06-17] MEDS: sucralfate 1 gm Tablet PO ×2 (08:17→18:09)
[2020-06-17] MEDS: levETIRAcetam 500 mg Tablet 250 MG PO ×2 (08:17→18:09)
[2020-06-17] MEDS: montelukast sodium 10 mg Tablet PO (08:17)
[2020-06-17] MEDS: levothyroxine 150 mcg Tablet PO (08:18)
[2020-06-17] MEDS: bumetanide 1 mg Tablet 2 MG PO (08:18)
[2020-06-17] MEDS: spironolactone 25 mg Tablet PO (08:18)
[2020-06-17] MEDS: aspirin 81 mg EC Tablet PO (08:18)
[2020-06-17] MEDS: isosorbide mononitrate ER 30 mg Tablet PO (08:18)
[2020-06-17 12:27] LABS: Glucose Point of Care 166 mg/dL (70-110)
--- NOTE | 2020-06-17 13:45 | PM.PN ---
Subjective Subjective: Interval history: When asked how she is doing, shakes her hand so-so . She is feeling little bit better, but still getting dyspneic/short of breath. Still feeling somewhat far off from her usual. Does not feel ready to return home. Having cough. Having chest congestion, pleuritic chest discomfort. Otherwise denies chest pain at rest. Denies sore throat, headache, nausea, vomiting, diarrhea, muscle aches or chills. She completed her COVID-19 vaccine series April. Vitals/I&O/Wt Last Vital Signs Temp 97.7 F 06/17/20 04:30 Pulse 75 06/17/20 04:30 Resp 18 06/17/20 04:30 BP 127/67 06/17/20 04:30 Pulse Ox 95 06/17/20 04:30 06/16/20 06/17/20 06/17/20 22:59 06:59 14:59 Intake Total 840 / 840 Output Total 200 / 200 700 / 700 Balance -200 / -200 140 / 140 Weight last 48 hrs Weight 123.377 kg Physical Exam Const: COMMON NORMALS: no acute distress and patient oriented x3 NUTRITIONAL APPEARANCE: obese HENMT: COMMON NORMALS: oropharynx normal Neck/C-Spine: COMMON NORMALS: no JVD Resp: COMMON NORMALS: normal respiratory effort AUSCULTATION: wheezes and diminished lung sounds Cardio: COMMON NORMALS: no JVD, regular rhythm, S1 normal heart sound present, S2 normal heart sound present and No murmurs present (Cardio) RHYTHM: regular rhythm HEART SOUNDS: S1 normal heart sound present and S2 normal heart sound present GI: COMMON NORMALS: Normal to inspection, nondistended, normoactive bowel sounds present, Soft to palpation and non-tender PALPATION: Yes Soft to palpation Extremity: COMMON NORMALS: no joint enlargement GENERAL: Yes edema (Chronic lower extremity lymphedema) Neuro: COMMON NORMALS: patient oriented x3 and moves all extremities Skin: COMMON NORMALS: no rashes or lesions noted GENERAL SKIN EXAM: no rashes or lesions noted Data : 06/16/20 20:52 06/17/20 01:53 A&P Assessment and plan (1) Acute exacerbation of chronic obstructive airways disease: Overall with improvement, but still feels somewhat far from baseline. Getting dyspneic, short of breath, with chest congestion, cough, pleuritic discomfort. Still tight, wheezing on exam. Discussed with her we will switch steroids over to IV formulation. Continue breathing treatments. Continue oxygen support. She is weaned off BiPAP support. Obtain sputum culture if able to provide. For now not on antibiotics. Encourage smoking cessation. PE is unlikely. COVID-19 rather unlikely lacking other symptoms, having completed vaccination series in April. Status: Acute (2) Acute hypercapnic respiratory failure: Status: Acute (3) Cervical radiculopathy: Status: Acute (4) Pain of hand: Status: Acute (5) Diastolic CHF: Chronic lymphedema lower extremities. Reported diastolic congestive heart failure. Currently not in exacerbation. Continue home dose of Bumex. Status: Acute Qualifiers: Heart failure chronicity: chronic Qualified Code(s): I50.32 - Chronic diastolic (congestive) heart failure (6) Diplopia: Status: Acute (7) Thyroid function study abnormality: Status: Acute (8) Learning disability: Status: Acute Additional A&P Information Troponin level elevated: EKG with possible right ventricular conduction delay. No signs of acute ischemia. Troponin with moderate elevation without therapy, baseline 20, 2-hour 12.33. No chest pain at rest. She describes pleuritic discomfort. Suspect troponin elevation was secondary to respiratory failure and demand ischemia. Troponin levels appear in line with other values from January and earlier November. Monitor for any changes in symptoms. Continue to encourage smoking cessation. May benefit from additional evaluation/risk stratification. Small to moderate area of decreased tracer uptake noted in the mid inferolateral and apical segments with significant reversibility suggestive of ischemia in distribution of LCx with some involvement of RCA on stress testing 09/26/2019. Follows with cardiology. Full code Consistent carb/cardiac diet Moderate sliding scale DVT prophylaxis Lovenox Attestations Medical Necessity Statement*: Continue hospitalization for assessment management of improved respiratory failure, but persistent COPD exacerbation with severe persistent symptoms of dyspnea, bronchospasm. 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
[2020-06-17 17:34] LABS: Glucose Point of Care 186 mg/dL (70-110)
[2020-06-17 18:15] LABS: Glucose Point of Care 223 mg/dL (70-110)
--- NOTE | 2020-06-17 18:48 | PC.RESP ---
Pulmonary Rehab information sent to patient.
[2020-06-17 19:14] VITALS: BP 128/69; PULSE 71; RESP 16; TEMP 36.8; O2SAT 95
[2020-06-17 20:41] VITALS: PULSE 71; RESP 16; O2SAT 95
[2020-06-17 20:42] LABS: Glucose Point of Care 239 mg/dL (70-110)
[2020-06-17] MEDS: atorvastatin 40 mg Tablet 20 MG PO (21:51)
[2020-06-18] VITALS (13 sets, daily range): BP systolic 108–154; BP diastolic 52–80; PULSE 52–71; RESP 14–22; TEMP 36.1–36.4; O2SAT 94–100
[2020-06-18 06:04] LABS: Basophils % 0.1 %; Hematocrit 36.3 % (37.0-47.0); Hemoglobin 10.7 g/dL (11.5-15.3); Lymphocytes % 11.7 %; Mean Corpuscular HGB Conc 29.5 g/dL (30.0-36.0); Mean Corpuscular Volume 84.8 fL (81-99); Mean Platelet Volume 10.7 fL (7.4-10.4); Monocytes # 0.3 10^3/uL (0.2-0.9); Monocytes % 2.8 %; Neutrophils # 7.44 10^3/uL (1.8-7.7); Neutrophils % 84.6 %; Nucleated Red Blood Cells % 0 %; Platelet Count 285 10^3/cmm (130-400); Red Blood Count 4.28 10^6/uL (4.1-5.3); Red Cell Distribution Width 14.3 % (12.1-15.1); White Blood Count 8.8 10^3/uL (4.0-10.0)
[2020-06-18 06:20] LABS: Blood Urea Nitrogen 24 mg/dL (6-20); Calcium 8.5 mg/dL (8.5-10.5); Carbon Dioxide 33 mmol/L (22-29); Chloride 99 mmol/L (98-107); Glucose 169 mg/dL (65-115); Osmolality Calculated 294 mOsm/kg (285-295); Sodium 138 mmol/L (136-145)
[2020-06-18 06:44] LABS: Glucose Point of Care 180 mg/dL (70-110)
[2020-06-18] MEDS: ipratropium-albuterol 3 mL Neb INHALATION (07:59)
[2020-06-18] MEDS: potassium chloride ER 20 mEq Tablet PO (08:05)
[2020-06-18] MEDS: bumetanide 1 mg Tablet 2 MG PO (08:05)
[2020-06-18] MEDS: spironolactone 25 mg Tablet PO (08:05)
[2020-06-18] MEDS: levothyroxine 150 mcg Tablet PO (08:05)
[2020-06-18] MEDS: metoprolol succinate ER (24 HR) 50 mg Tablet PO ×2 (08:05→19:09)
[2020-06-18] MEDS: montelukast sodium 10 mg Tablet PO (08:05)
[2020-06-18] MEDS: sucralfate 1 gm Tablet PO ×2 (08:05→19:09)
[2020-06-18] MEDS: aspirin 81 mg EC Tablet PO (08:05)
[2020-06-18] MEDS: levETIRAcetam 500 mg Tablet 250 MG PO ×2 (08:06→19:10)
[2020-06-18] MEDS: isosorbide mononitrate ER 30 mg Tablet PO (08:06)
[2020-06-18] MEDS: pantoprazole DR 40 mg Tablet PO (08:06)
[2020-06-18 11:30] LABS: Glucose Point of Care 255 mg/dL (70-110)
--- NOTE | 2020-06-18 16:02 | P.CONIM_ITS ---
Providers/Reason For Consult Consulting Physican/Specialty*: Joseph Wilson MD/ Cardiology Reason for Consult*: Chest pain Requesting Physcian: Jose Garces Attending Physician: Jose Garces Primary Care Provider: Татьяна Storm History of Present Illness History of Present Illness Crystal Pierre is a 54 year old female with PMH of C6-C7 radiculopathy, history of diastolic congestive heart failure, COPD, hypertension, seizure disorder presented with worsening shortness of breath. She was at orthopedic office where she complained of shortness of breath and chest discomfort. She says chest pain has been going on for very long period of time. It is on and off. Nonexertional. At times taking a deep breath hurts on the left side of the chest. She had a stress test performed in September 2019 that was abnormal. This was followed by coronary angiogram performed by Dr. Adams in October 2019 that showed normal coronary arteries. Patient required BiPAP overnight. She had acute on chronic hypercapnia. She is getting treated for COPD exacerbation. Her EKG did not show ischemic changes. Troponins did not trend up significantly. Review of Systems Const: Reports: body aches and change in weight; Denies: fever(s) Eyes: Denies: change in vision ENMT: Denies: throat pain Card: Reports: swelling of feet/ankles and dyspnea on exertion; Denies: chest pain, irregular heart rhythm or syncope Resp: Reports: dyspnea, productive cough and pain on inspiration GI: Denies: abdominal pain : Denies: flank pain Musc: Reports: muscle cramps Skin/Breast: Denies: rash Neuro: Denies: headache(s) Psych: Denies: anxiety Endo: Denies: polyuria Peter/Lymph: Denies: easy bruising All/Imm: Denies: urticaria Meds/Allergies Home Medications and Allergies Home Medications Medication Instructions Recorded Confirmed Last Taken Type albuterol sulfate 90 mcg/actuation 2 puff INHALATION Q4H PRN 02/15/19 06/16/20 10/23/19 History aerosol inhaler aspirin 81 mg tablet,delayed 81 mg PO DAILY 02/15/19 06/16/20 02/14/20 History release atorvastatin 20 mg tablet 20 mg PO BEDTIME 02/15/19 06/16/20 02/14/20 History levetiracetam 250 mg tablet 250 mg PO BID 02/15/19 06/16/20 10/23/19 History montelukast 10 mg tablet 10 mg PO DAILY 02/15/19 06/16/20 02/14/20 History pantoprazole 40 mg tablet,delayed 40 mg PO DAILY 02/15/19 06/16/20 02/14/20 History release magnesium oxide 400 mg PO DAILY 02/18/19 06/16/20 02/14/20 History spironolactone 25 mg PO DAILY 02/18/19 06/16/20 02/14/20 History cetirizine 10 mg capsule 10 mg PO DAILY 03/04/19 06/16/20 02/14/20 History hydroxyzine HCl 10 mg PO TID PRN 09/16/19 06/16/20 10/23/19 History sucralfate 1 g PO TID 09/16/19 06/16/20 02/14/20 History isosorbide mononitrate 30 mg PO DAILY 02/14/20 06/16/20 02/14/20 History budesonide 0.5 mg/2 mL suspension 0.5 mg INHALATION BID 04/16/20 06/16/20 Unknown History for nebulization ipratropium bromide 0.02 % 2.5 ml INHALATION Q6H PRN 04/16/20 06/16/20 Unknown History solution for inhalation metoclopramide HCl 10 mg tablet 10 mg PO Q6H PRN tab 04/16/20 06/16/20 Unknown History bumetanide 2 mg PO DAILY 06/16/20 06/16/20 Unknown History diclofenac sodium 2 - 4 g TOPICAL BID PRN 06/16/20 06/16/20 Unknown History levothyroxine 150 mcg PO DAILY 06/16/20 06/16/20 Unknown History metoprolol succinate 50 mg PO BID 06/16/20 06/16/20 Unknown History potassium chloride 20 meq PO DAILY 06/16/20 06/16/20 Unknown History Allergies Allergy/AdvReac Type Severity Reaction Status Date / Time chlorpromazine Allergy Unknown ALGY-Rash Verified 06/16/20 20:00 diphenhydramine Allergy Unknown Unknown Verified 06/16/20 20:00 Iodinated Contrast Media Allergy Unknown ALGY-Hives Verified 06/16/20 20:00 tramadol Allergy Unknown Verified 06/16/20 20:00 amoxicillin AdvReac Unknown ADR-Nausea Verified 06/16/20 20:00 codeine AdvReac Unknown ADR-Vomitin Verified 06/16/20 20:00 g Penicillins AdvReac Unknown ADR-Vomitin Verified 06/16/20 20:00 g Current Medications Current Medications Generic Name Dose Route Start Last Admin Trade Name Freq PRN Reason Stop Dose Admin Albuterol/Ipratropium 3 ml 06/17/20 00:19 06/18/20 07:59 Ipratropium-Albuterol 3 Ml Neb INHALATION 3 ml Q6H PRN Administration SHORTNESS OF BREATH Aspirin 81 mg 06/17/20 09:00 06/18/20 08:05 Aspirin 81 Mg Ec Tablet PO 81 mg DAILY KENY Administration Atorvastatin Calcium 20 mg 06/17/20 21:00 06/17/20 21:51 Atorvastatin 40 Mg Tablet PO 20 mg BEDTIME KENY Administration Bumetanide 2 mg 06/17/20 09:00 06/18/20 08:05 Bumetanide 1 Mg Tablet PO 2 mg DAILY KENY Administration Enoxaparin Sodium 40 mg 06/17/20 00:19 06/17/20 23:34 Enoxaparin 40 Mg/0.4 Ml Syringe SUBCUT 40 mg Q24H KENY Administration Insulin Aspart 0 unit 06/17/20 08:00 06/18/20 12:55 Insulin Aspart 100 Unit/1 Ml SUBCUT 6 unit WM&BEDTIME KENY Administration Protocol Isosorbide Mononitrate 30 mg 06/17/20 09:00 06/18/20 08:06 Isosorbide Mononitrate Er 30 Mg Tablet PO 30 mg DAILY KENY Administration Levetiracetam 250 mg 06/17/20 09:00 06/18/20 08:06 Levetiracetam 500 Mg Tablet PO 250 mg BID KENY Administration Levothyroxine Sodium 150 mcg 06/17/20 09:00 06/18/20 08:05 Levothyroxine 150 Mcg Tablet PO 150 mcg DAILY KENY Administration Methylprednisolone Sodium Succinate 60 mg 06/17/20 13:45 06/18/20 12:55 Methylprednisolone Sod Succ 125 Mg/2 Ml Inj IVP 60 mg Q6H KENY Administration Metoprolol Succinate 50 mg 06/17/20 09:00 06/18/20 08:05 Metoprolol Succinate Er (24 Hr) 50 Mg Tablet PO 50 mg BID KENY Administration Montelukast Sodium 10 mg 06/17/20 09:00 06/18/20 08:05 Montelukast Sodium 10 Mg Tablet PO 10 mg DAILY KENY Administration Pantoprazole Sodium 40 mg 06/17/20 09:00 06/18/20 08:[address] 40 Mg Tablet PO 40 mg DAILY KENY Administration Potassium Chloride 20 meq 06/17/20 09:00 06/18/20 08:05 Potassium Chloride Er 20 Meq Tablet PO 20 meq DAILY KENY Administration Spironolactone 25 mg 06/17/20 09:00 06/18/20 08:05 Spironolactone 25 Mg Tablet PO 25 mg DAILY KENY Administration Sucralfate 1 gm 06/17/20 09:00 06/18/20 08:05 Sucralfate 1 Gm Tablet PO 1 gm BID KENY Administration PFSH Acute PFSH: Medical History Asthma 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 Social History Smoking and tobacco status: former smoker Quit status (tobacco): has quit using tobacco Year quit tobacco: 2019 - 1-5 ciggs/day Alcohol intake: never Lives independently: Yes Household members: none Housing: Apartment Current occupational status: disabled History of recent travel: No Current gender identity: Female Vitals/I&O/Wt Last Vital Signs Temp 97.6 F 06/18/20 12:00 Pulse 54 L 06/18/20 15:30 Resp 18 06/18/20 12:00 BP 138/74 06/18/20 12:00 Pulse Ox 99 06/18/20 15:30 06/18/20 06/18/20 06/18/20 06:59 14:59 22:59 Intake Total 720 / 720 Output Total 200 / 900 Balance -200 / 420 720 / 720 Weight last 48 hrs Weight 272 lb Physical Exam Narrative: EXAM NARRATIVE: GENERAL: Patient is alert, awake and oriented x3. [] NECK: No jugular vein distension. [] HEENT: No cyanosis. No icterus. No pallor. [] HEART: Regular S1 and S2. grade 3/6 systolic murmur, rub or gallop. [] LUNGS: Clear to auscultate bilaterally. [] ABDOMEN: Soft, nontender and nondistended. Positive bowel sounds. No guarding, rebound or tenderness. [] CENTRAL NERVOUS SYSTEM: Grossly nonfocal. [] EXTREMITIES: Lower extremities with 1+ edema bilaterally. Pulses palpable in the lower extremities, both dorsalis pedis and posterior tibial. [] A&P Assessment and plan (1) Acute exacerbation of chronic obstructive airways disease: Status: Acute (2) Atypical chest pain: Status: Acute (3) Diastolic CHF: Status: Acute Qualifiers: Heart failure chronicity: chronic Qualified Code(s): I50.32 - Chronic diastolic (congestive) heart failure (4) Venous stasis: Status: Acute (5) Moderate aortic regurgitation: Status: Acute Patient had come with respiratory failure. She had recent coronary angiogram that did not reveal significant coronary artery disease. Her EKG did not reveal ischemic changes and troponins have not trended up. We will recommend medical therapy at this time. Her chest pain is atypical. However if it continues, imdur can be uptitrated. We will follow chest pain symptoms while she is in the hospital. LV systolic function on last echocardiogram was normal. Continue current cardiac medications. Thank you for involving us with care of this patient. We will continue to follow. Please call with questions. 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
[2020-06-18 17:08] LABS: Glucose Point of Care 171 mg/dL (70-110)
--- NOTE | 2020-06-18 20:18 | PM.PN ---
Subjective Subjective: Interval history: Today she is feeling a bit better. But was still getting on and off chest pain, at the time of my visit still having some discomfort. Vitals/I&O/Wt Last Vital Signs Temp 96.9 F L 06/18/20 19:39 Pulse 71 06/18/20 19:46 Resp 17 06/18/20 19:46 BP 118/65 06/18/20 19:39 Pulse Ox 99 06/18/20 19:46 06/18/20 06/18/20 06/18/20 06:59 14:59 22:59 Intake Total 720 / 720 240 / 960 Output Total 200 / 900 450 / 450 Balance -200 / 420 720 / 720 -210 / 510 Physical Exam Const: COMMON NORMALS: no acute distress and patient oriented x3 NUTRITIONAL APPEARANCE: obese HENMT: COMMON NORMALS: oropharynx normal Neck/C-Spine: COMMON NORMALS: no JVD Resp: COMMON NORMALS: normal respiratory effort AUSCULTATION: no wheezes and diminished lung sounds (Improving) Cardio: COMMON NORMALS: no JVD, regular rhythm, S1 normal heart sound present, S2 normal heart sound present and No murmurs present (Cardio) RHYTHM: regular rhythm HEART SOUNDS: S1 normal heart sound present and S2 normal heart sound present GI: COMMON NORMALS: Normal to inspection, nondistended, normoactive bowel sounds present, Soft to palpation and non-tender PALPATION: Yes Soft to palpation Extremity: COMMON NORMALS: no joint enlargement GENERAL: Yes edema (Chronic lower extremity lymphedema) Neuro: COMMON NORMALS: patient oriented x3 and moves all extremities Skin: COMMON NORMALS: no rashes or lesions noted GENERAL SKIN EXAM: no rashes or lesions noted Data : 06/18/20 04:58 06/18/20 04:58 A&P Assessment and plan (1) Acute exacerbation of chronic obstructive airways disease: There is some worsening of hypoxia today, requiring 4 L of oxygen. It appears at home usually wears 2 L. Overall wheezing sound somewhat better. Still tight, although with somewhat improved air entry, however, as subjectively she is not feeling a whole lot better, we will continue with IV steroids at this time. Repeat chest x-ray in the morning. As she is having recurrent episode of chest pain which did not appear to be pleuritic, without additional assessment by cardiology given past history of CAD, abnormal stress testing. She is weaned off BiPAP support. Obtain sputum culture if able to provide. For now I am still not seeing evidence of purulent phlegm, so for now holding antibiotic. Encourage smoking cessation. PE is unlikely. COVID-19 rather unlikely lacking other symptoms, having completed vaccination series in April. Status: Acute (2) Atypical chest pain: Appreciate cardiology assessment regarding recurrent chest pain, persistent discomfort. Continue medication therapy at this time. For now continue to monitor in the hospital. Appreciate consideration of increasing Imdur dose in case of persistent symptoms. Status: Acute (3) Acute hypercapnic respiratory failure: Status: Acute (4) Cervical radiculopathy: Status: Acute (5) Pain of hand: Status: Acute (6) Diastolic CHF: Chronic lymphedema lower extremities. Reported diastolic congestive heart failure. Currently not in exacerbation. Continue home dose of Bumex. Status: Acute Qualifiers: Heart failure chronicity: chronic Qualified Code(s): I50.32 - Chronic diastolic (congestive) heart failure (7) Diplopia: Status: Acute (8) Thyroid function study abnormality: Status: Acute (9) Learning disability: Status: Acute Additional A&P Information Troponin level elevated: as above. Attestations Medical Necessity Statement*: Admission of over 2 midnights is required for treatment of COPD with persistent symptoms, dyspnea, assessment and management of recurrent chest pain/persistent chest discomfort with underlying coronary disease and abnormal stress test in the past. 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
[2020-06-18] MEDS: atorvastatin 40 mg Tablet 20 MG PO (21:14)
[2020-06-18 21:33] LABS: Glucose Point of Care 214 mg/dL (70-110)
[2020-06-19] VITALS (8 sets, daily range): BP systolic 115–151; BP diastolic 66–81; PULSE 50–70; RESP 16–19; TEMP 36.3–36.7; O2SAT 88–98
[2020-06-19] MEDS: enoxaparin 40 mg/0.4 mL Syringe SUBCUT (00:30)
[2020-06-19 04:55] LABS: Basophils % 0.1 %; Hematocrit 35.8 % (37.0-47.0); Hemoglobin 10.7 g/dL (11.5-15.3); Lymphocytes % 11.5 %; Mean Corpuscular HGB Conc 29.9 g/dL (30.0-36.0); Mean Corpuscular Volume 83.6 fL (81-99); Mean Platelet Volume 10.8 fL (7.4-10.4); Monocytes # 0.4 10^3/uL (0.2-0.9); Monocytes % 4.4 %; Neutrophils # 7.23 10^3/uL (1.8-7.7); Neutrophils % 83.7 %; Nucleated Red Blood Cells % 0 %; Platelet Count 288 10^3/cmm (130-400); Red Blood Count 4.28 10^6/uL (4.1-5.3); Red Cell Distribution Width 14.4 % (12.1-15.1); White Blood Count 8.6 10^3/uL (4.0-10.0)
[2020-06-19 05:15] LABS: Blood Urea Nitrogen 26 mg/dL (6-20); Calcium 8.6 mg/dL (8.5-10.5); Carbon Dioxide 34 mmol/L (22-29); Chloride 101 mmol/L (98-107); Glucose 165 mg/dL (65-115); Osmolality Calculated 302 mOsm/kg (285-295); Sodium 142 mmol/L (136-145)
--- NOTE | 2020-06-19 06:00 | XR_ITS ---
WS: [id number] Portable AP upright chest, 06/19/2020 Clinical Data: Hypoxia Comparison: Portable chest, 06/16/2020. Findings: No nodules, masses or effusions are seen. The heart is enlarged. The pulmonary vascularity is not increased. No pneumonia or pneumothorax is seen. XR/XR chest 1V portable [id number] Impression: Cardiomegaly
[2020-06-19 06:34] LABS: Glucose Point of Care 174 mg/dL (70-110)
--- NOTE | 2020-06-19 07:36 | P.PN_ITS ---
Subjective Subjective: Interval history: Patient is feeling well. No chest pain complaints. Shortness of breath has improved significantly Vitals/I&O/Wt Last Vital Signs Temp 97.4 F L 06/19/20 03:34 Pulse 63 06/19/20 05:25 Resp 16 06/19/20 03:34 BP 115/66 06/19/20 03:34 Pulse Ox 95 06/19/20 05:25 06/18/20 06/19/20 06/19/20 22:59 06:59 14:59 Intake Total 240 / 960 100 / 1060 Output Total 450 / 450 200 / 650 Balance -210 / 510 -100 / 410 Physical Exam Narrative: EXAM NARRATIVE: GENERAL: Patient is alert, awake and oriented x3. [] NECK: No jugular vein distension. [] HEENT: No cyanosis. No icterus. No pallor. [] HEART: Regular S1 and S2. grade 3/6 systolic murmur, rub or gallop. [] LUNGS: Clear to auscultate bilaterally. [] ABDOMEN: Soft, nontender and nondistended. Positive bowel sounds. No guarding, rebound or tenderness. [] CENTRAL NERVOUS SYSTEM: Grossly nonfocal. [] EXTREMITIES: Lower extremities with 1+ edema bilaterally. Pulses palpable in the lower extremities, both dorsalis pedis and posterior tibial. [] Data : 06/19/20 04:30 06/19/20 04:30 A&P Assessment and plan (1) Acute exacerbation of chronic obstructive airways disease: Status: Resolved (2) Atypical chest pain: (3) Diastolic CHF: Qualifiers: Heart failure chronicity: chronic Qualified Code(s): I50.32 - Chronic diastolic (congestive) heart failure (4) Venous stasis: (5) Moderate aortic regurgitation: Patient had come with respiratory failure. She had recent coronary angiogram that did not reveal significant coronary artery disease. Her EKG did not reveal ischemic changes and troponins have not trended up. We will recommend medical therapy at this time. Imdur can be uptitrated as needed. LV systolic function on last echocardiogram was normal. Continue current cardiac medications. Thank you for involving us with care of this patient. Patient is ready to be discharged from out standpoint. Please call with questions. Attestations Medical Necessity Statement*: Care expected to cross 2 midnights Coding Level of Care Code Acute User Experience Lead for Chg Fwd Diagnoses Acute exacerbation of chronic obstructive airways disease J44.1 Atypical chest pain R07.89 Diastolic CHF I50.32 Heart failure chronicity: chronic Venous stasis I87.8 Moderate aortic regurgitation I35.1
[2020-06-19] MEDS: levothyroxine 150 mcg Tablet PO (09:29)
[2020-06-19] MEDS: bumetanide 1 mg Tablet 2 MG PO (09:29)
[2020-06-19] MEDS: spironolactone 25 mg Tablet PO (09:29)
[2020-06-19] MEDS: isosorbide mononitrate ER 30 mg Tablet PO (09:29)
[2020-06-19] MEDS: sucralfate 1 gm Tablet PO (09:29)
[2020-06-19] MEDS: montelukast sodium 10 mg Tablet PO (09:29)
[2020-06-19] MEDS: aspirin 81 mg EC Tablet PO (09:29)
[2020-06-19] MEDS: potassium chloride ER 20 mEq Tablet PO (09:30)
[2020-06-19] MEDS: metoprolol succinate ER (24 HR) 50 mg Tablet PO (09:30)
[2020-06-19] MEDS: pantoprazole DR 40 mg Tablet PO (09:30)
[2020-06-19] MEDS: levETIRAcetam 500 mg Tablet 250 MG PO (09:30)
[2020-06-19 11:30] LABS: Glucose Point of Care 164 mg/dL (70-110)
--- NOTE | 2020-06-19 14:11 | P.DS_ITS ---
Discharge Providers Date of Admission: 06/16/20 22:32 Date of Discharge: June 19, 2020 Attending Provider at Admission: Carla Leblanc MD Attending Provider at Discharge: Jose Garces Primary Care Provider: Татьяна Storm Diagnoses at Discharge Discharge Diagnosis (1) Acute exacerbation of chronic obstructive airways disease: Status: Acute (2) Atypical chest pain: Status: Acute (3) Acute hypercapnic respiratory failure: Status: Acute (4) Cervical radiculopathy: Status: Acute (5) Pain of hand: Status: Acute (6) Diastolic CHF: Status: Acute Qualifiers: Heart failure chronicity: chronic Qualified Code(s): I50.32 - Chronic diastolic (congestive) heart failure (7) Diplopia: Status: Acute (8) Thyroid function study abnormality: Status: Acute (9) Learning disability: Status: Acute Reason for Visit Reason for Visit: SOB/DIZZY Hospital Course Hospital Course Pleasant 54-year-old lady with COPD, chronic vessel etc., history of sleep apnea, although did not tolerate CPAP previously, seizure disorder, hypothyroidism, HTN, and a number of additional comorbidities was admitted and treated after in the orthopedic clinic she was complaining of shortness of breath, chest pain. Found to be in acute exacerbation of COPD, with hypercapnic respiratory failure. Initially requiring BiPAP support. Treated with initially oral steroid, however, with persistent dyspnea, decreased air entry, wheezing, steroids switched to IV regimen, breathing treatments, and intermittent BiPAP support as needed. She gradually weaned off BiPAP requirement during the day. Oxygenation gradually improved with oxygen requirement decreasing from 4 L to 2 L currently. She has oxygen at home and had been using 2 L as needed. She has diastolic congestive heart failure, although was not found to be in acute exacerbation, and was continued on usual diuretic dose. Her breathing had gradually improved. Today she is feeling much better, feels stronger, and ready to return home. She will complete steroid taper at discharge. She is noted to be still smoking. Previously smoked 1-1/2 packs a day, recently reports she has cut down to about 4 cigarettes/day give or take. Says it has been difficult for her to stop smoking. We are providing her with nicotine patch and lozenges on discharge as per discussion with her. Please continue to encourage her to stop smoking given underlying COPD, chronic hypoxia, as well as underlying coronary disease. During hospitalization she was also assessed by cardiology due to episodic chest pain. Chest pain has been atypical. D-dimer normal on presentation, with low likelihood of PE. With underlying CAD, previously abnormal stress test, consideration was given whether to pursue his additional assessment. She was not found to have evidence of acute UT. For now cardiology recommends continuation of medical therapy. She again needs to focus on smoking cessation. In case of recurrence of symptoms medications may be optimized for better anginal control. Please have her follow-up with cardiology in office for reassessment. As she also has history of sleep apnea diagnosed on a sleep study in 2017, requiring CPAP, although reportedly had not tolerated this previously, she had done quite well here with BiPAP, and feels that she should be able to tolerate CPAP currently. She is referred for a new sleep study. Please follow-up the results with her. Continue follow-up with orthopedics regarding cervical radiculopathy. Physical Exam Const: COMMON NORMALS: no acute distress and patient oriented x3 NUTRITIONAL APPEARANCE: obese HENMT: COMMON NORMALS: oropharynx normal Neck/C-Spine: COMMON NORMALS: no JVD Resp: COMMON NORMALS: normal respiratory effort and clear to auscultation bilaterally AUSCULTATION: clear to auscultation bilaterally, no wheezes and diminished lung sounds (Much better air entry) Cardio: COMMON NORMALS: no JVD, regular rhythm, S1 normal heart sound present, S2 normal heart sound present and No murmurs present (Cardio) RHYTHM: regular rhythm HEART SOUNDS: S1 normal heart sound present and S2 normal heart sound present GI: COMMON NORMALS: Normal to inspection, nondistended, normoactive bowel sounds present, Soft to palpation and non-tender PALPATION: Yes Soft to palpation Extremity: COMMON NORMALS: no joint enlargement GENERAL: Yes edema (Chronic lower extremity lymphedema) Neuro: COMMON NORMALS: patient oriented x3 and moves all extremities Skin: COMMON NORMALS: no rashes or lesions noted GENERAL SKIN EXAM: no rashes or lesions noted Discharge Data Data Completed and Pending: Completed Studies During Hospitalization Category Date Time Status XR chest 1V bladimir ble [id number] Routine Exams 06/19/20 06:00 Completed XR chest 1V bladimir ble [id number] Urgent Exams 06/16/20 19:54 Completed Pending at discharge Category Date Time Status Basic Metabolic P annie AM LABS Lab 06/20/20 04:00 Ordered Complete Blood Co unt w/Auto AM LABS Lab 06/20/20 04:00 [facility]dered Sputum [facility] 06/17/20 13:49 Uncollected Labs from last 24 hours 06/19/20 06/19/20 06/19/20 11:14 06:11 04:30 WBC RBC Hgb Hct MCV MCH MCHC RDW Plt Count MPV Neut % (Auto) Lymph % (Auto) [place] % (Auto) Eos % (Auto) Baso % (Auto) Neut # (Auto) Lymph # (Auto) [place] # (Auto) Eos # (Auto) Baso # (Auto) Nucleated RBC % (a uto) Nucleated RBCs # Sodium 142 Potassium 4.0 Chloride 101 Carbon Dioxide 34 H Anion Gap 11.0 BUN 26 H Creatinine 0.9 GFR Calculation 65.0 L Glucose 165 H POC Glucose 164 H 174 H Calculated Osmolal ity 302 H Calcium 8.6 06/19/20 06/18/20 06/18/20 04:30 21:20 16:55 WBC 8.6 RBC 4.28 Hgb 10.7 L Hct 35.8 L MCV 83.6 MCH 25.0 L MCHC 29.9 L RDW 14.4 Plt Count 288 MPV 10.8 H Neut % (Auto) 83.7 Lymph % (Auto) 11.5 [place] % (Auto) 4.4 Eos % (Auto) 0.0 Baso % (Auto) 0.1 Neut # (Auto) 7.23 Lymph # (Auto) 1.0 [place] # (Auto) 0.4 Eos # (Auto) 0.0 Baso # (Auto) 0.0 Nucleated RBC % (a uto) 0 Nucleated RBCs # 0.0 Sodium Potassium Chloride Carbon Dioxide Anion Gap BUN Creatinine GFR Calculation Glucose POC Glucose 214 H 171 H Calculated Osmolal ity Calcium Vitals: Last Vital Signs Temp 97.8 F 06/19/20 12:00 Pulse 58 L 06/19/20 12:00 Resp 18 06/19/20 12:00 BP 151/81 06/19/20 12:00 Pulse Ox 88 L 06/19/20 13:59 Discharge Plan Discharge Patient Disposition: Home Condition: Stable Prescriptions: New prednisone 20 mg tablet 20 mg PO DAILY Qty: 20 RF: 0 nicotine 14 mg/24 hr patch 24 hour 1 patch transdermal DAILY Qty: 30 RF: 0 nicotine (polacrilex) 2 mg lozenge 2 mg mucous membrane Q1H PRN (Reason: nicotine cravings) Qty: 72 RF: 3 Continued montelukast [Singulair] 10 mg tablet 10 mg PO DAILY RF: 0 levetiracetam 250 mg tablet 250 mg PO BID RF: 0 aspirin [Adult Aspirin Regimen] 81 mg tablet,delayed release (DR/EC) 81 mg PO DAILY RF: 0 pantoprazole [Protonix] 40 mg tablet,delayed release (DR/EC) 40 mg PO DAILY RF: 0 atorvastatin 20 mg tablet 20 mg PO BEDTIME RF: 0 albuterol sulfate [ProAir HFA] 90 mcg/actuation HFA aerosol inhaler 2 puff INHALATION Q4H PRN (Reason: Shortness Of Breath) RF: 0 metoclopramide HCl [Reglan] 10 mg tablet 10 mg PO Q6H PRN (Reason: nausea and vomiting) RF: 0 ipratropium bromide 0.02 % solution 2.5 ml inhalation Q6H PRN (Reason: Shortness Of Breath) RF: 0 budesonide 0.5 mg/2 mL suspension for nebulization 0.5 mg inhalation BID RF: 0 cetirizine 10 mg capsule 10 mg PO DAILY RF: 0 isosorbide mononitrate 30 mg tablet extended release 24 hr 30 mg PO DAILY RF: 0 metoprolol succinate 50 mg tablet extended release 24 hr 50 mg PO BID RF: 0 levothyroxine 150 mcg tablet 150 mcg PO DAILY RF: 0 diclofenac sodium 1 % gel 2 - 4 g TOPICAL BID PRN (Reason: Pain) RF: 0 bumetanide 2 mg tablet 2 mg PO DAILY RF: 0 potassium chloride 20 mEq tablet extended release 20 meq PO DAILY RF: 0 spironolactone 25 mg Tablet 25 mg PO DAILY RF: 0 magnesium oxide 400 mg magnesium Tablet 400 mg PO DAILY RF: 0 sucralfate 1 gram tablet 1 g PO TID RF: 0 hydroxyzine HCl 10 mg tablet 10 mg PO TID PRN (Reason: Anxiety) RF: 0 Discharge Orders: Discharge Order (Routine); Ordered 06/19/20 Ordered By: Jose Garces Other Ambulatory Orders: Sleep Study/Titration (Routine) Timeframe: 3 Days Location: None Selected Ordered By: Jose Garces Referrals: Татьяна Storm FNP [Primary Care Provider] - 06/26/20 11:00 am Discharge Diet: Cardiac and Diabetic Discharge Activity: Increase activity as tolerated and Oxygen as instructed Patient Instructions: Prednisone (By mouth), Chronic Obstructive Pulmonary Disease (GEN), COPD Stoplight Activity Restrictions/Additional Instructions: Please stop smoking as continued smoking will continue to damage your lungs making it more difficult to breathe and lead to other complications like heart attack, stroke, cancer. In case you experience persistent chest pain, or progressively worsening shortness of breath, or other concerning symptoms, please seek medical attention. Discharge Attestations Time Spent in Discharge Care*: greater than 30 min Quality Metrics Clinical Quality Measures During this hospital stay, did patient experience: None Coding Level of Care Code Acute Chg [facility] note Diagnoses Acute exacerbation of chronic obstructive airways disease J44.1 Atypical chest pain R07.89 Acute hypercapnic respiratory failure J96.02 Cervical radiculopathy M54.12 Pain of hand M79.643 Diastolic CHF I50.32 Heart failure chronicity: chronic Diplopia H53.2 Thyroid function study abnormality R94.6 Learning disability F81.9
--- NOTE | 2020-06-19 15:49 | PC.NURSE ---
PT HAS DONE WELL FOR ME TODAY. NO COMPLAINTS OF PAIN. PT HAS BEEN UP TO THE BATHROOM MULTIPLE TIMES TODAY AND HAS DONE WELL WITH STANDBY ASSIST. PT WILL DISCHARGE TODAY. TRANSPORTATION WAS CALLED AND ARRANGED FOR PT. DISCHARGE PAPERWORK WAS GONE OVER WITH PT. ALL QUESTIONS ANSWERED. IV WAS REMOVED. PT TOLERATED WELL. CATHETER TIP INTACT. PT WHEELED OUT IN WHEELCHAIR AND BELONGINGS CARRIED OUT BY THIS NURSE, [employer], AND THE TRANSPORTATION SERVICE PEOPLE. PT SAFELY HELPED INTO [facility]AN AND DISCHARGED FROM HOSPITAL.
== END 2020-06-19 15:54 | disposition home or self-care (01) ==
LOC: ER 22:38 → MEDSURG 23:19
PROVIDERS: Admitting Provider Internal Medicine; Emergency Provider Family Medicine; PCP Nurse Practitioner Family; Visit Provider Internal Medicine
DX: J44.1 Chronic obstructive pulmonary disease with (acute) exacerbation (principal); R07.89 Other chest pain; J96.02 Acute respiratory failure with hypercapnia; M54.12 Radiculopathy, cervical region; M79.643 Pain in unspecified hand; I11.0 Hypertensive heart disease with heart failure; I50.32 Chronic diastolic (congestive) heart failure; H53.2 Diplopia; R94.6 Abnormal results of thyroid function studies; E03.9 Hypothyroidism, unspecified; F81.9 Developmental disorder of scholastic skills, unspecified; I87.8 Other specified disorders of veins; I35.1 Nonrheumatic aortic (valve) insufficiency; Z79.82 Long term (current) use of aspirin; Z87.891 Personal history of nicotine dependence
CPT/HCPCS: 36415; 36416; 36600; 71045; 80048; 80053; 81001; 82803; 82805; 82962; 83605; 83880; 84443; 84484; 85025; 85378; 93005; 94640; 94660; 96361; 96372; 96374; 96375; 99285; G0378; J1650; J1815; J2930; J7512

== ENCOUNTER → 2020-06-30 13:45 | Outpatient (BNVA) | payer MEDICARE, MEDICAID, SELFPAY | PROVIDERS: PCP Nurse Practitioner Family; Visit Provider Specialist | DX: G40.909 Epilepsy, unspecified, not intractable, without status epilepticus (principal); J44.9 Chronic obstructive pulmonary disease, unspecified; Z87.891 Personal history of nicotine dependence | CPT/HCPCS: 99213 ==

== ENCOUNTER 2020-07-03 17:20 | Emergency (ER) | payer MEDICARE, MEDICAID, SELFPAY ==
--- NOTE | 2020-07-03 18:06 | ECG_ITS ---
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 Measurements Intervals [place] Rate: 63 P: 57 [place]: 125 QRS: 48 QRSD: 98 T: 56 QT: 409 QTc: 420 Interpretive Statements SINUS RHYTHM Compared to ECG 06/17/2020 01:56:14 No significant changes Electronically Signed On 07-04-2020 9:45:39 CDT by Amanda Bourgeois M.D. [email or web address]
[2020-07-03 18:25] VITALS: BP 136/76; PULSE 64; RESP 13; TEMP 36.6; O2SAT 100; BMI 42.9
--- NOTE | 2020-07-03 18:32 | XRR_ITS ---
PROCEDURE INFORMATION: Exam: XR Chest Exam date and time: 07/03/2020 6:33 PM Age: 54 years old Clinical indication: Shortness of breath; Patient HX: SOB x2days TECHNIQUE: Imaging protocol: XR of the chest. Views: 1 view. Total images: 1 COMPARISON: CR XR chest 1V portable [id number] 06/19/2020 6:24 AM FINDINGS: Lungs: No visible active interstitial or alveolar airspace disease. Pleural spaces: Unremarkable. No pleural effusion. No pneumothorax. Heart/Mediastinum: Cardiac structures and configuration with mild cardiomegaly. Bones/joints: Unremarkable. Other findings: Obesity. XR/XR chest 1V portable [id number] IMPRESSION: Nonacute.
--- NOTE | 2020-07-03 18:33 | W.ED.CHESTPA ---
HPI - Chest Pain General: Chief Complaint: Chest Pain Stated Complaint: CHEST PAIN / HEADACHE / TREMORS Time Seen by Provider: 07/03/20 18:15 Source: patient Mode of arrival: ambulatory Limitations: no limitations History of Present Illness: HPI narrative: 54-year-old female is very well-known to the ER states that over the last 3 days she has been having some epigastric abdominal pain along with chest pain shortness of breath. She is on 2 L of oxygen at home and is 100% here on her 2 L. She denies any worsening improving factors. States her pain is a sharp pain and rates it a 3 out of 10. Denies any vomiting or diarrhea. Patient is resting comfortably in the room currently. Associated symptoms: Reports abdominal pain and dyspnea; Deny fever(s), nausea or vomiting Review of Systems Const: Denies: fever(s), chills, body aches or change in appetite Eyes: Denies: blurry vision or eye discomfort ENMT: Denies: throat pain or dental pain Card: Reports: chest pain Resp: Reports: dyspnea GI: Reports: abdominal pain; Denies: nausea, vomiting or diarrhea : Denies: dysuria Musc: Denies: neck pain or back pain Skin/Breast: Denies: rash Neuro: Denies: headache(s) Psych: Denies: depression Peter/Lymph: Denies: easy bruising All/Imm: Denies: urticaria PFSH ED PFSH: Medical History Asthma Atypical chest pain Cervical radiculopathy 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 Social History Smoking and tobacco status: former smoker Quit status (tobacco): has quit using tobacco Year quit tobacco: 2019 - 1-5 ciggs/day Alcohol intake: never Lives independently: Yes Household members: none Housing: Apartment Current occupational status: disabled History of recent travel: No Current gender identity: Female Physical Exam Const: COMMON NORMALS: no acute distress, patient oriented x3 and healthy appearing HENMT: COMMON NORMALS: normocephalic and atraumatic HEAD & SCALP: normocephalic and atraumatic Eye: COMMON NORMALS: Equal, round and reactive pupils present and EOMs intact bilaterally PUPIL: Yes Equal, round and reactive pupils present Neck/C-Spine: COMMON NORMALS: full ROM and supple Chest: COMMONS NORMALS: normal inspection of the chest and normal palpation of entire chest wall Resp: COMMON NORMALS: normal respiratory effort, No retractions, No use of accessory muscles and clear to auscultation bilaterally AUSCULTATION: clear to auscultation bilaterally Cardio: COMMON NORMALS: regular rate, regular rhythm and No murmurs present (Cardio) RATE: regular rate RHYTHM: regular rhythm GI: COMMON NORMALS: Normal to inspection, nondistended, normoactive bowel sounds present, Soft to palpation, non-tender and no masses PALPATION: Yes Soft to palpation Extremity: COMMON NORMALS: normal to inspection and full ROM Neuro: COMMON NORMALS: patient oriented x3, moves all extremities and no focal motor deficits Psych: COMMON NORMALS: mental status grossly normal, Normal thought process present and cooperative THOUGHT PROCESS: Normal thought process present Skin: COMMON NORMALS: no rashes or lesions noted and no wounds GENERAL SKIN EXAM: no rashes or lesions noted Course Vital Signs: Vital signs: Vital Signs Temperature 97.9 F 07/03/20 18:25 Pulse Rate 69 07/03/20 20:32 Respiratory Rate 15 07/03/20 20:32 Blood Pressure 148/76 07/03/20 20:32 Pulse Oximetry 100 07/03/20 20:32 MDM - Chest Pain MDM Narrative: Medical decision making narrative: Crystal presents with chest pain along with shortness of breath that is chronic in nature. She is well-appearing here and troponin and x-ray and everything is normal. She has no signs of acute coronary syndrome. She has no signs of pulmonary embolism. She is to follow-up PCP and return if worsening. Lab Data: Labs: Lab Results 07/03/20 07/03/20 07/03/20 Range/Units 19:17 19:18 19:18 WBC 11.3 H (4.0-10.0) 10^3/ uL RBC 4.71 (4.1-5.3) 10^6/u L Hgb 11.9 (11.5-15.3) g/dL Hct 40.0 (37.0-47.0) % MCV 84.9 (81-99) fL MCH 25.3 L (28.0-34.0) pg MCHC 29.8 L (30.0-36.0) g/dL RDW 14.8 (12.1-15.1) % Plt Count 273 (130-400) 10^3/c mm MPV 9.9 (7.4-10.4) fL Neut % (Auto) 65.1 % Lymph % (Auto) 24.0 % [place] % (Auto) 6.5 % Eos % (Auto) 3.2 % Baso % (Auto) 0.7 % Neut # (Auto) 7.35 (1.8-7.7) 10^3/u L Lymph # (Auto) 2.7 (0.8-4.8) 10^3/u L [place] # (Auto) 0.7 (0.2-0.9) 10^3/u L Eos # (Auto) 0.4 (0.0-0.8) 10^3/u L Baso # (Auto) 0.1 (0.0-0.1) 10^3/u L Nucleated RBC % (a uto) 0 % Nucleated RBCs # 0.0 /100WBC Sodium 140 (136-145) mmol/L Potassium 3.8 (3.5-5.1) mmol/L Chloride 96 L (98-107) mmol/L Carbon Dioxide 35 H (22-29) mmol/L Anion Gap 12.8 (5-19) BUN 21 H (6-20) mg/dL Creatinine 0.8 (0.5-0.9) mg/dL GFR Calculation 74.5 L (90-130) mL/min Glucose 103 (65-115) mg/dL Calculated Osmolal ity 293 (285-295) mOsm/k g Calcium 9.0 (8.5-10.5) mg/dL Total Bilirubin 1.3 H (0.15-1.2) mg/dL AST 13 (0-32) U/L ALT 12 (0-33) U/L Alkaline Phosphata se 110 H (35-105) IU/L Troponin T Baselin e 15 H (0-10) ng/L NT-Pro-B Natriuret Pep 74 (0-125) pg/mL Total Protein 7.0 (6.6-8.7) g/dL Albumin 4.4 (3.5-5.2) g/dL Globulin 2.6 (1.3-4.6) g/dL Lipase 32 (13-60) U/L Imaging Data^: CXR: Attestation: I personally reviewed and interpreted this imaging study as follows: Radiologist's impression: no acute abnormality EKG Data^: EKG 1: Attestation: I personally reviewed and interpreted this EKG as follows: EKG interpretation date: 07/03/20 EKG interpretation time: 18:24 Interpretation: nsr hr [address] or t wave abnormalities qrs 98 qtc 416 Discharge Plan Discharge Patient Disposition: Home Clinical Impression: Chest pain Qualifiers: Chest pain type: unspecified Qualified Code(s): R07.9 - Chest pain, unspecified Dyspnea Qualifiers: Dyspnea type: unspecified Qualified Code(s): R06.00 - Dyspnea, unspecified Condition: Stable Prescriptions: No Action montelukast [Singulair] 10 mg tablet 10 mg PO DAILY RF: 0 levetiracetam 250 mg tablet 250 mg PO BID RF: 0 aspirin [Adult Aspirin Regimen] 81 mg tablet,delayed release (DR/EC) 81 mg PO DAILY RF: 0 pantoprazole [Protonix] 40 mg tablet,delayed release (DR/EC) 40 mg PO DAILY RF: 0 atorvastatin 20 mg tablet 20 mg PO BEDTIME RF: 0 albuterol sulfate [ProAir HFA] 90 mcg/actuation HFA aerosol inhaler 2 puff INHALATION Q4H PRN (Reason: Shortness Of Breath) RF: 0 metoclopramide HCl [Reglan] 10 mg tablet 10 mg PO Q6H PRN (Reason: nausea and vomiting) RF: 0 ipratropium bromide 0.02 % solution 2.5 ml inhalation Q6H PRN (Reason: Shortness Of Breath) RF: 0 budesonide 0.5 mg/2 mL suspension for nebulization 0.5 mg inhalation BID RF: 0 cetirizine 10 mg capsule 10 mg PO DAILY RF: 0 isosorbide mononitrate 30 mg tablet extended release 24 hr 30 mg PO DAILY Qty: 90 RF: 1 metoprolol succinate 50 mg tablet extended release 24 hr 50 mg PO BID RF: 0 levothyroxine 150 mcg tablet 150 mcg PO DAILY RF: 0 diclofenac sodium 1 % gel 2 - 4 g TOPICAL BID PRN (Reason: Pain) RF: 0 bumetanide 2 mg tablet 2 mg PO DAILY RF: 0 potassium chloride 20 mEq tablet extended release 20 meq PO DAILY RF: 0 prednisone 20 mg tablet 20 mg PO DAILY Qty: 20 RF: 0 nicotine 14 mg/24 hr patch 24 hour 1 patch transdermal DAILY Qty: 30 RF: 0 nicotine (polacrilex) 2 mg lozenge 2 mg mucous membrane Q1H PRN (Reason: nicotine cravings) Qty: 72 RF: 3 fluticasone propionate 50 mcg/actuation spray,suspension See Rx Instructions .ROUTE .COMPLEX RF: 0 spironolactone 25 mg Tablet 25 mg PO DAILY RF: 0 magnesium oxide 400 mg magnesium Tablet 400 mg PO DAILY RF: 0 sucralfate 1 gram tablet 1 g PO TID RF: 0 hydroxyzine HCl 10 mg tablet 10 mg PO TID PRN (Reason: Anxiety) RF: 0 Discharge Orders: Discharge ED (Routine); Ordered 07/03/20 Ordered By: Tenisha Casey Referrals: Татьяна Storm FNP [Primary Care Provider] - 1-3 days Discharge Diet: Advance as tolerated Discharge Activity: Resume usual activity Patient Instructions: Dyspnea (ED) Coding Level of Care Code ED Sales Representative [employer] for Chg Fwd Exam Comprehensive
[2020-07-03 18:54] VITALS: PULSE 65; RESP 18; O2SAT 99
[2020-07-03 19:21] LABS: Basophils # 0.1 10^3/uL (0.0-0.1); Basophils % 0.7 %; Eosinophils # 0.4 10^3/uL (0.0-0.8); Eosinophils % 3.2 %; Hemoglobin 11.9 g/dL (11.5-15.3); Lymphocytes # 2.7 10^3/uL (0.8-4.8); Mean Corpuscular HGB Conc 29.8 g/dL (30.0-36.0); Mean Corpuscular Hemoglobin 25.3 pg (28.0-34.0); Mean Corpuscular Volume 84.9 fL (81-99); Mean Platelet Volume 9.9 fL (7.4-10.4); Monocytes # 0.7 10^3/uL (0.2-0.9); Monocytes % 6.5 %; Neutrophils # 7.35 10^3/uL (1.8-7.7); Neutrophils % 65.1 %; Nucleated Red Blood Cells % 0 %; Platelet Count 273 10^3/cmm (130-400); Red Blood Count 4.71 10^6/uL (4.1-5.3); Red Cell Distribution Width 14.8 % (12.1-15.1); White Blood Count 11.3 10^3/uL (4.0-10.0)
[2020-07-03 19:33] VITALS: BP 153/80; PULSE 68; RESP 14; O2SAT 99
--- NOTE | 2020-07-03 19:34 | PC.NURSE ---
patient denied any chest pain at this time.
[2020-07-03 19:48] LABS: Troponin(5th) Baseline 15 ng/L (0-10)
[2020-07-03 19:57] LABS: Alanine Aminotransferase 12 U/L (0-33); Albumin Level 4.4 g/dL (3.5-5.2); Alkaline Phosphatase 110 IU/L (35-105); Anion Gap 12.8 (5-19); Aspartate Amino Transferase 13 U/L (0-32); Blood Urea Nitrogen 21 mg/dL (6-20); Carbon Dioxide 35 mmol/L (22-29); Chloride 96 mmol/L (98-107); Globulin 2.6 g/dL (1.3-4.6); Glomerular Filtration Rate 74.5 mL/min (90-130); Glucose 103 mg/dL (65-115); Lipase 32 U/L (13-60); NT Pro B Type Natriuretic Pept 74 pg/mL (0-125); Osmolality Calculated 293 mOsm/kg (285-295); Potassium 3.8 mmol/L (3.5-5.1); Sodium 140 mmol/L (136-145); Total Bilirubin 1.3 mg/dL (0.15-1.2)
[2020-07-03] MEDS: HYDROcodone-acetaminophen 5-325 mg Tablet 1 TAB PO (20:10)
[2020-07-03 20:32] VITALS: BP 148/76; PULSE 69; RESP 15; O2SAT 100
== END 2020-07-03 20:32 | disposition home or self-care (01) ==
PROVIDERS: Emergency Provider Emergency Medicine; PCP Nurse Practitioner Family
DX: R07.9 Chest pain, unspecified (principal); R06.00 Dyspnea, unspecified; Z79.82 Long term (current) use of aspirin; J44.9 Chronic obstructive pulmonary disease, unspecified; I11.0 Hypertensive heart disease with heart failure; I50.30 Unspecified diastolic (congestive) heart failure; Z87.891 Personal history of nicotine dependence
CPT/HCPCS: 71045; 80053; 83690; 83880; 84484; 85025; 93005; 99284

== ENCOUNTER → 2020-07-07 09:32 | Outpatient (BNVA) | payer MEDICARE, MEDICAID, SELFPAY | PROVIDERS: PCP Nurse Practitioner Family; Referring Provider Orthopaedic Surgery; Visit Provider Anesthesiology Pain Medicine | DX: G89.29 Other chronic pain (principal); M50.90 Cervical disc disorder, unspecified, unspecified cervical region; M47.812 Spondylosis without myelopathy or radiculopathy, cervical region; G56.22 Lesion of ulnar nerve, left upper limb; R20.2 Paresthesia of skin; Z79.891 Long term (current) use of opiate analgesic; Z87.891 Personal history of nicotine dependence | CPT/HCPCS: 99204 ==

== ENCOUNTER → 2020-07-15 13:18 | Outpatient (BNVA) | payer MEDICARE, MEDICAID, SELFPAY | PROVIDERS: PCP Nurse Practitioner Family; Visit Provider Anesthesiology Pain Medicine | DX: G89.29 Other chronic pain (principal); M54.2 Cervicalgia; Z87.891 Personal history of nicotine dependence | CPT/HCPCS: 62321; J1100 ==

== ENCOUNTER → 2020-07-28 09:31 | Outpatient (BNVA) | payer MEDICARE, MEDICAID, SELFPAY | PROVIDERS: PCP Nurse Practitioner Family; Visit Provider Anesthesiology Pain Medicine | DX: M50.90 Cervical disc disorder, unspecified, unspecified cervical region (principal); M47.812 Spondylosis without myelopathy or radiculopathy, cervical region; G56.22 Lesion of ulnar nerve, left upper limb; M79.604 Pain in right leg; Z87.891 Personal history of nicotine dependence | CPT/HCPCS: 99212 ==

== ENCOUNTER 2020-08-07 15:50 | Emergency (ER) | payer MEDICARE, MEDICAID, SELFPAY ==
[2020-08-07 16:37] VITALS: BP 109/76; PULSE 75; RESP 22; TEMP 36.7; O2SAT 98; BMI 44.1
--- NOTE | 2020-08-07 18:19 | XRR_ITS ---
PROCEDURE INFORMATION: Exam: XR Chest Exam date and time: 08/07/2020 6:19 PM Age: 54 years old Clinical indication: Shortness of breath; Additional info: Cp TECHNIQUE: Imaging protocol: XR of the chest. Views: 1 view. COMPARISON: CR (CHEST, ) 07/03/2020 6:30 PM FINDINGS: Lungs: Unremarkable. No consolidation. Pleural spaces: Unremarkable. No pleural effusion. No pneumothorax. Heart/Mediastinum: Mild cardiomegaly. Bones/joints: Unremarkable. XR/XR chest 1V portable [id number] IMPRESSION: Mild cardiomegaly, negative for infiltrate
--- NOTE | 2020-08-07 18:22 | ECG_ITS ---
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 Measurements Intervals [place] Rate: 70 P: 56 DE: 138 QRS: 50 QRSD: 103 T: 49 QT: 414 QTc: 448 Interpretive Statements SINUS RHYTHM POSSIBLE LATERAL MYOCARDIAL INFARCTION [30 ms Q WAVE IN I/aVL/V5/V6], PROBABLY OLD Compared to ECG 07/03/2020 18:24:49 Myocardial infarct finding now present Electronically Signed On 08-07-2020 22:09:02 CDT by Joseph Wilson M.D. [id number]
--- NOTE | 2020-08-07 18:25 | USR_ITS ---
PROCEDURE INFORMATION: Exam: US Duplex Lower Extremity Veins, Bilateral Exam date and time: 08/07/2020 6:25 PM Age: 54 years old Clinical indication: Edema, localized; Lower extremity, right and lower extremity, left; Additional info: Le swelling bilaterally TECHNIQUE: Imaging protocol: Real-time duplex ultrasound of the extremities with 2-D desai scale, color Doppler flow and spectral waveform analysis with image documentation. Complete exam focused on the bilateral lower extremity veins. COMPARISON: CR XR knee LT 3V* [id number] 09/16/2019 2:41 PM FINDINGS: Right deep veins: Unremarkable. The common femoral, femoral, proximal profunda femoral and popliteal veins are patent without thrombus. Normal Doppler waveforms. Normal compressibility and/or augmentation response. Right superficial veins: Saphenofemoral junction is patent without thrombus. Left deep veins: Unremarkable. The common femoral, femoral, proximal profunda femoral and popliteal veins are patent without thrombus. Normal Doppler waveforms. Normal compressibility and/or augmentation response. Left superficial veins: Saphenofemoral junction is patent without thrombus. Soft tissues: Unremarkable. US/[place] [id number] IMPRESSION: No evidence of deep vein thrombosis.
[2020-08-07 19:25] LABS: Alanine Aminotransferase 12 U/L (0-33); Albumin Level 3.8 g/dL (3.5-5.2); Alkaline Phosphatase 98 IU/L (35-105); Aspartate Amino Transferase 17 U/L (0-32); Blood Urea Nitrogen 13 mg/dL (6-20); Calcium 8.5 mg/dL (8.5-10.5); Carbon Dioxide 33 mmol/L (22-29); Chloride 99 mmol/L (98-107); Globulin 2.7 g/dL (1.3-4.6); Glomerular Filtration Rate 74.5 mL/min (90-130); Glucose 100 mg/dL (65-115); Lipase 24 U/L (13-60); NT Pro B Type Natriuretic Pept 146 pg/mL (0-125); Osmolality Calculated 290 mOsm/kg (285-295); Sodium 140 mmol/L (136-145); Total Protein 6.5 g/dL (6.6-8.7)
[2020-08-07 19:26] LABS: Anion Gap 13.1 (5-19)
[2020-08-07 19:27] LABS: Potassium 5.1 mmol/L (3.5-5.1)
[2020-08-07 19:42] LABS: Troponin(5th) Baseline 13 ng/L (0-10)
[2020-08-07 19:58] LABS: Basophils # 0.1 10^3/uL (0.0-0.1); Basophils % 0.9 %; Eosinophils # 0.3 10^3/uL (0.0-0.8); Eosinophils % 3.8 %; Hematocrit 41.4 % (37.0-47.0); Hemoglobin 11.1 g/dL (11.5-15.3); Lymphocytes # 2.6 10^3/uL (0.8-4.8); Lymphocytes % 29.6 %; Mean Corpuscular HGB Conc 26.8 g/dL (30.0-36.0); Mean Corpuscular Hemoglobin 25.9 pg (28.0-34.0); Mean Corpuscular Volume 96.5 fL (81-99); Mean Platelet Volume 9.7 fL (7.4-10.4); Monocytes # 0.9 10^3/uL (0.2-0.9); Monocytes % 10.2 %; Neutrophils % 54.9 %; Nucleated Red Blood Cells % 0 %; Platelet Count 270 10^3/cmm (130-400); Red Blood Count 4.29 10^6/uL (4.1-5.3); Red Cell Distribution Width 16.8 % (12.1-15.1); White Blood Count 8.9 10^3/uL (4.0-10.0)
--- NOTE | 2020-08-07 20:22 | ECG_ITS ---
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 Measurements Intervals [place] Rate: 70 P: 145 SD: 142 QRS: 82 QRSD: 97 T: 78 QT: 404 QTc: 436 Interpretive Statements ECTOPIC ATRIAL RHYTHM PROBABLE LATERAL MYOCARDIAL INFARCTION [35 ms Q WAVE IN I/aVL/V5/V6], OF INDETERMINATE AGE Compared to ECG 07/03/2020 18:24:49 Ectopic atrial rhythm now present Myocardial infarct finding now present Sinus rhythm no longer present Electronically Signed On 08-07-2020 21:35:31 CDT by Joseph Wilson M.D. [id number]
[2020-08-07] MEDS: ipratropium-albuterol 3 mL Neb INHALATION (21:21)
[2020-08-07 21:25] VITALS: PULSE 73; RESP 17; O2SAT 99
[2020-08-07 21:32] VITALS: PULSE 75
[2020-08-07 21:39] VITALS: BP 154/66; PULSE 69; RESP 17; O2SAT 99
[2020-08-07 22:03] LABS: Add Urine Microscopic? YES; Bilirubin Urine Neg (Negative); Blood Urine Trace (Negative); Glucose Urine UA Norm (Normal); Ketones Urine Negative (Negative); Leukocyte Esterase Urine Trace (Negative); Nitrate Urine Negative (Negative); Protein Urine Neg (Negative); Specific Gravity, Urine 1.015 (1.005-1.030); Urine Appearance SL Hazy (CLEAR); Urine Color Yellow (Yellow); Urobilinogen Urine Norm (Negative); pH Urine 5 (5-7)
[2020-08-07 22:07] LABS: Add Urine Culture? No; Amorphous Sediment Urine 2+ /hpf; Bacteria Urine 2+ /hpf; WBC Urine 0-4 /hpf (0-5)
--- NOTE | 2020-08-07 22:23 | ED_ITS ---
HPI - SOB/Dyspnea General: Chief Complaint: Shortness of Breath/Dyspnea Stated Complaint: sob, abd pain, increased edema in BLE Time Seen by Provider: 08/07/20 18:08 History of Present Illness: HPI Narrative: The patient is a 54-year-old female with past medical history COPD and diastolic CHF who comes to the ER complaining of right-sided chest pain with deep breaths, shortness of breath, and tightness and swelling in her bilateral lower extremities. MD elicited complaint: shortness of breath Associated symptoms: Reports chest pain (right sided cp with deep breaths); Deny abdominal pain, dizziness, extremity pain, orthopnea, palpitations or polyuria Review of Systems General: Reports: 10 or more systems reviewed and unremarkable except in HPI and below Const: Denies: fatigue Eyes: Denies: change in vision, blurry vision or eye redness ENMT: Denies: throat pain, swelling of lips/tongue, ear or mastoid pain or nasal congestion Card: Reports: chest pain (right sided cp with deep breaths); Denies: palpitations, irregular heart rhythm, edema, dyspnea on exertion or orthopnea Resp: Reports: dyspnea; Denies: productive cough or non-productive cough GI: Denies: abdominal pain, diarrhea or GI cramping : Denies: flank pain, difficulty voiding, urinary frequency or urinary urgency Musc: Denies: neck pain, back pain, extremity pain, joint pain, joint redness, limited range of motion or muscle weakness Skin/Breast: Denies: rash, pruritus, erythema, skin pain or skin tenderness Neuro: Denies: headache(s), numbness in extremities, weakness in extremities, sensory changes, difficulty walking, dizziness, confusion or Slurred speech present Psych: Denies: anxiety or depression Endo: Denies: polyuria All/Imm: Denies: urticaria, throat swelling or tongue swelling PFSH ED PFSH: Medical History Asthma Atypical chest pain Cervical radiculopathy 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 Social History Smoking and tobacco status: former smoker Quit status (tobacco): has quit using tobacco Year quit tobacco: 2018 - 1-5 ciggs/day Alcohol intake: never Lives independently: Yes Household members: none Housing: Apartment Current occupational status: disabled History of recent travel: No Current gender identity: Female Physical Exam Const: COMMON NORMALS: no acute distress, average body habitus, patient oriented x3, no limitations, healthy appearing, alert and well nourished GENERAL APPEARANCE: cooperative, comfortable, well kempt and well developed ORIENTATION/CONSCIOUSNESS: Yes awake, Yes oriented to person, Yes oriented to place and Yes oriented to time HENMT: COMMON NORMALS: normocephalic, external ears normal and Normal external nose present HEAD & SCALP: normal to inspection and normocephalic NOSE: N ormal external nose present EXTERNAL EAR: Yes external ears normal MOUTH: Normal oral and palatal mucosa present THROAT: posterior oropharynx normal Eye: COMMON NORMALS: Equal, round and reactive pupils present and EOMs intact bilaterally GENERAL EYE: appearance normal, both eyes and all related structures PUPIL: Yes Equal, round and reactive pupils present Neck/C-Spine: COMMON NORMALS: full ROM, no lymphadenopathy, no meningeal signs and no JVD GENERAL: Yes normal visual inspection Lymph: LYMPHATIC: no lymphadenopathy noted Chest: COMMONS NORMALS: normal inspection of the chest and normal palpation of entire chest wall Resp: COMMON NORMALS: normal respiratory effort, No retractions, No use of accessory muscles, clear to auscultation bilaterally and percussion normal EFFORT & INSPECTION: Yes able to speak in complete sentences AUSCULTATION: clear to auscultation bilaterally PERCUSSION: percussion normal Cardio: COMMON NORMALS: no JVD, regular rate, regular rhythm, S1 normal heart sound present, S2 normal heart sound present and Peripheral pulses 2+ throughout RATE: regular rate RHYTHM: regular rhythm HEART SOUNDS: S1 normal heart sound present and S2 normal heart sound present PERIPHERAL PULSES: Peripheral pulses 2+ throughout GI: COMMON NORMALS: Normal to inspection, nondistended, normoactive bowel sounds present, Soft to palpation, non-tender and no masses INSPECTION: Yes normal to inspection PALPATION: Yes Soft to palpation : COMMON NORMALS: Yes no CVA tenderness BLADDER/KIDNEY EXAM: Yes no CVA tenderness Back/Pelvis: COMMON NORMALS: no CVA tenderness, thoracic and lumbar spine normal to inspection, no thoracic nor lumbar tenderness and thoraco-lumbar ROM n ormal Extremity: COMMON NORMALS: normal to inspection, full ROM, capillary refill normal, no joint enlargement and no pedal edema GENERAL: Yes normal exam except as noted Neuro: COMMON NORMALS: patient oriented x3, CN's II-XII intact bilaterally, moves all extremities, no focal motor deficits, no sensory deficits noted and gait normal SENSORIUM/ORIENTATION: Yes alert, Yes oriented to person, Yes oriented to place and Yes oriented to time MENINGEAL SIGNS: Yes no meningeal signs Psych: COMMON NORMALS: mental status grossly normal, Normal thought process present, cooperative, normal affect and speech normal APPEARANCE: Yes well kempt ATTITUDE: Yes calm SPEECH: Yes normal speech THOUGHT PROCESS: Normal thought process present Skin: COMMON NORMALS: no rashes or lesions noted GENERAL SKIN EXAM: no rashes or lesions noted Course Vital Signs: Vital signs: Vital Signs Temperature 98.0 F 08/07/20 16:37 Pulse Rate 70 08/07/20 22:34 Respiratory Rate 18 08/07/20 22:34 Blood Pressure 153/62 08/07/20 22:34 Pulse Oximetry 100 08/07/20 22:34 MDM - SOB/Dyspnea MDM Narrative: Medical decision making narrative: Patient came in complaining of shortness of breath and right-sided chest pain with deep breathing as well as mild increase in swelling to bilateral lower extremities. She has known COPD and diastolic CHF and takes diuretics. She was given an albuterol inhaler with improvement of her shortness of breath. Imaging negative for any acute infiltrates. Stable for discharge home with prednisone and albuterol. ER with worsening symptoms at any time. Primary care physician in a few days for a checkup. Lab Data: Labs: Lab Results 08/07/20 08/07/20 08/07/20 Range/Units 18:48 18:48 18:48 WBC Cancelled Corrected WBC Cancelled RBC Cancelled Hgb Cancelled Hct Cancelled MCV Cancelled MCH Cancelled MCHC Cancelled RDW Cancelled Plt Count Cancelled MPV Cancelled Gran % Cancelled Neut % (Auto) Cancelled Lymph % (Auto) Cancelled [place] % (Auto) Cancelled Eos % (Auto) Cancelled Baso % (Auto) Cancelled Neut # (Auto) Cancelled Lymph # (Auto) Cancelled [place] # (Auto) Cancelled Eos # (Auto) Cancelled Baso # (Auto) Cancelled Absolute Gran (aut o) Cancelled Nucleated RBC % (a uto) Cancelled Nucleated RBCs # Cancelled Sodium 140 (136-145) mmol/L Potassium 5.1 (3.5-5.1) mmol/L Chloride 99 (98-107) mmol/L Carbon Dioxide 33 H (22-29) mmol/L Anion Gap 13.1 (5-19) BUN 13 (6-20) mg/dL Creatinine 0.8 (0.5-0.9) mg/dL GFR Calculation 74.5 L (90-130) mL/min Glucose 100 (65-115) mg/dL Calculated Osmolal ity 290 (285-295) mOsm/k g Calcium 8.5 (8.5-10.5) mg/dL Total Bilirubin 1.0 (0.15-1.2) mg/dL AST 17 (0-32) U/L ALT 12 (0-33) U/L Alkaline Phosphata se 98 (35-105) IU/L Troponin T Baselin e 13 H (0-10) ng/L Troponin T 120 Min [place] (0-10) ng/L Delta Troponin T (0-10) ABS# NT-Pro-B Natriuret Pep 146 H (0-125) pg/mL Total Protein 6.5 L (6.6-8.7) g/dL Albumin 3.8 (3.5-5.2) g/dL Globulin 2.7 (1.3-4.6) g/dL Lipase 24 (13-60) U/L Urine Color (Yellow) Urine Appearance (CLEAR) Urine pH (5-7) Ur Specific Gravit y (1.005-1.030) Urine Protein (Negative) Urine Glucose (UA) (Normal) Urine Ketones (Negative) Urine Blood (Negative) Urine Nitrate (Negative) Urine Bilirubin (Negative) Urine Urobilinogen (Negative) mg/dL Ur Leukocyte Jacqui ase (Negative) Urine RBC (0-2) /hpf Urine WBC (0-5) /hpf Ur Squamous Epith Cells (0-5) /hpf Amorphous Sediment /hpf Urine Bacteria (NONE) /hpf 08/07/20 08/07/20 08/07/20 Range/Units 19:50 20:44 21:37 WBC 8.9 Corrected WBC RBC 4.29 Hgb 11.1 L Hct 41.4 MCV 96.5 MCH 25.9 L MCHC 26.8 L RDW 16.8 H Plt Count 270 MPV 9.7 Gran % Neut % (Auto) 54.9 Lymph % (Auto) 29.6 [place] % (Auto) 10.2 Eos % (Auto) 3.8 Baso % (Auto) 0.9 Neut # (Auto) 4.90 Lymph # (Auto) 2.6 [place] # (Auto) 0.9 Eos # (Auto) 0.3 Baso # (Auto) 0.1 Absolute Gran (aut o) Nucleated RBC % (a uto) 0 Nucleated RBCs # 0.0 Sodium (136-145) mmol/L Potassium (3.5-5.1) mmol/L Chloride (98-107) mmol/L Carbon Dioxide (22-29) mmol/L Anion Gap (5-19) BUN (6-20) mg/dL Creatinine (0.5-0.9) mg/dL GFR Calculation (90-130) mL/min Glucose (65-115) mg/dL Calculated Osmolal ity (285-295) mOsm/k g Calcium (8.5-10.5) mg/dL Total Bilirubin (0.15-1.2) mg/dL AST (0-32) U/L ALT (0-33) U/L Alkaline Phosphata se (35-105) IU/L Troponin T Baselin e (0-10) ng/L Troponin T 120 Min [place] 11.60 H (0-10) ng/L Delta Troponin T -1.40 L (0-10) ABS# NT-Pro-B Natriuret Pep (0-125) pg/mL Total Protein (6.6-8.7) g/dL Albumin (3.5-5.2) g/dL Globulin (1.3-4.6) g/dL Lipase (13-60) U/L Urine Color Yellow (Yellow) Urine Appearance Sl hazy (CLEAR) Urine pH 5 (5-7) Ur Specific Gravit y 1.015 (1.005-1.030) Urine Protein Neg (Negative) Urine Glucose (UA) Norm (Normal) Urine Ketones Negative (Negative) Urine Blood Trace H (Negative) Urine Nitrate Negative (Negative) Urine Bilirubin Neg (Negative) Urine Urobilinogen Norm (Negative) mg/dL Ur Leukocyte Jacqui ase Trace H (Negative) Urine RBC 5-10 H (0-2) /hpf Urine WBC 0-4 H (0-5) /hpf Ur Squamous Epith Cells 5-10 H (0-5) /hpf Amorphous Sediment 2+ /hpf Urine Bacteria 2+ H (NONE) /hpf Discharge Plan Discharge Patient Disposition: Home Clinical Impression: Acute exacerbation of chronic obstructive airways disease Condition: Stable Prescriptions: New Medrol (Pako) 4 mg tablets,dose pack See Rx Instructions .ROUTE .COMPLEX Qty: 21 RF: 0 albuterol sulfate 90 mcg/actuation HFA aerosol inhaler 2 inh inhalation Q6H PRN (Reason: shortness of breath or wheezing) 30 Days RF: 0 No Action montelukast [Singulair] 10 mg tablet 10 mg PO DAILY RF: 0 levetiracetam 250 mg tablet 250 mg PO BID RF: 0 aspirin [Adult Aspirin Regimen] 81 mg tablet,delayed release (DR/EC) 81 mg PO DAILY RF: 0 pantoprazole [Protonix] 40 mg tablet,delayed release (DR/EC) 40 mg PO DAILY RF: 0 atorvastatin 20 mg tablet 20 mg PO BEDTIME RF: 0 albuterol sulfate [ProAir HFA] 90 mcg/actuation HFA aerosol inhaler 2 puff INHALATION Q4H PRN (Reason: Shortness Of Breath) RF: 0 metoclopramide HCl [Reglan] 10 mg tablet 10 mg PO Q6H PRN (Reason: nausea and vomiting) RF: 0 ipratropium bromide 0.02 % solution 2.5 ml inhalation Q6H PRN (Reason: Shortness Of Breath) RF: 0 budesonide 0.5 mg/2 mL suspension for nebulization 0.5 mg inhalation BID RF: 0 cetirizine 10 mg capsule 10 mg PO DAILY RF: 0 isosorbide mononitrate 30 mg tablet extended release 24 hr 30 mg PO DAILY Qty: 90 RF: 1 levothyroxine 150 mcg tablet 150 mcg PO DAILY RF: 0 bumetanide 2 mg tablet 2 mg PO DAILY RF: 0 potassium chloride 20 mEq tablet extended release 20 meq PO DAILY RF: 0 nicotine 14 mg/24 hr patch 24 hour 1 patch transdermal DAILY Qty: 30 RF: 0 nicotine (polacrilex) 2 mg lozenge 2 mg mucous membrane Q1H PRN (Reason: nicotine cravings) Qty: 72 RF: 3 fluticasone propionate 50 mcg/actuation spray,suspension See Rx Instructions .ROUTE .COMPLEX RF: 0 spironolactone 25 mg Tablet 25 mg PO DAILY RF: 0 sucralfate 1 gram tablet 1 g PO TID RF: 0 Discharge Orders: Discharge ED (Routine); Ordered 08/07/20 Ordered By: Eliud Aranda Referrals: Татьяна Storm, MIMEOGRAPHER [Primary Care Provider] - Patient Instructions: Chronic Obstructive Pulmonary Disease (ED), Opioid Safety Activity Restrictions/Additional Instructions: You are having an exacerbation of your COPD. Please take the steroids and use inhalers at home to help you with your symptoms. Return to the ER at anytime with worsening symptoms otherwise follow-up with your primary care physician in a few days. 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
[2020-08-07] MEDS: FUROsemide 40 mg Tablet 20 MG PO (22:28)
[2020-08-07] MEDS: predniSONE 20 mg Tablet 40 MG PO (22:28)
[2020-08-07 22:34] VITALS: BP 153/62; PULSE 70; RESP 18; O2SAT 100
== END 2020-08-07 22:35 | disposition home or self-care (01) ==
PROVIDERS: Emergency Provider Family Medicine; PCP Nurse Practitioner Family
DX: J44.1 Chronic obstructive pulmonary disease with (acute) exacerbation (principal); Z79.82 Long term (current) use of aspirin; I11.0 Hypertensive heart disease with heart failure; I50.30 Unspecified diastolic (congestive) heart failure; Z87.891 Personal history of nicotine dependence; R07.9 Chest pain, unspecified
CPT/HCPCS: 71045; 80053; 81001; 83690; 83880; 84484; 85025; 93005; 93970; 94640; 99284; J7512

== ENCOUNTER → 2020-10-21 12:27 | Day surgery (SDC) | payer MEDICARE, MEDICAID, SELFPAY | PROVIDERS: PCP Nurse Practitioner Family; Visit Provider Orthopaedic Surgery | DX: Z01.818 Encounter for other preprocedural examination (principal) | CPT/HCPCS: 80048; 85025; 85610; 93005 ==

== ENCOUNTER → 2020-10-26 09:34 | Outpatient (BNVA) | payer MEDICARE, MEDICAID, SELFPAY | PROVIDERS: PCP Nurse Practitioner Family; Visit Provider Nurse Practitioner Family | DX: I50.32 Chronic diastolic (congestive) heart failure (principal); Z87.891 Personal history of nicotine dependence | CPT/HCPCS: 80048; 83880 ==

== ENCOUNTER 2020-12-02 15:38 | Emergency (ER) | payer MEDICARE, MEDICAID, SELFPAY ==
[2020-12-02 15:52] VITALS: BP 181/81; PULSE 70; RESP 18; TEMP 36.6; O2SAT 97; BMI 34.4
--- NOTE | 2020-12-02 15:59 | W.ED.GENADLT ---
Documented by User: LILLIAN Brown 12/03/20 17:42 HPI - General Adult General: Chief complaint: General Medical Stated complaint: SOB, DIZZY, BLOOD IN L EAR Time Seen by Provider: 12/02/20 15:57 History of Present Illness: HPI narrative: Patient is a 54-year-old female who comes to the ED with shortness of breath and upper respiratory symptoms. Patient has a past medical history of COPD, hypertension, seizures, GERD and heart failure. Patient is on oxygen at home and uses it as needed. Her symptoms started approximately 4 days ago. She says she has had increased shortness of breath over the last 4 days and it gets worse as she gets up and ambulates or if she is lying flat. She also notes having some chest pain that comes along with the episodes of shortness of breath. She is also complaining of having some left ear pain along with bloody drainage and a sore throat. Denies any fever, chills, nausea/vomiting, abdominal pain, bowel symptoms. She does say she has had some increased urinary frequency but denies any dysuria or blood in the urine. Patient does have breathing treatments at home that she is used to try to help with her shortness of breath. Patient has received both the influenza and Covid-19 vaccinations. Associated symptoms: Reports chest pain and dyspnea; Deny headache(s), nausea, rash, palpitations or vomiting Review of Systems Const: Denies: fever(s), chills or fatigue Eyes: Denies: change in vision or eye discomfort ENMT: Reports: throat pain, ear or mastoid pain (left ear) and ear discharge (left ear-bloody drainage); Denies: odynophagia, nasal discharge or nasal congestion Card: Reports: chest pain; Denies: palpitations, edema, swelling of feet/ankles, dyspnea on exertion or orthopnea Resp: Reports: dyspnea; Denies: productive cough or non-productive cough GI: Denies: abdominal pain, nausea, vomiting, diarrhea, constipation or hematochezia : Denies: flank pain, dysuria or hematuria Musc: Denies: neck pain, back pain or extremity swelling Skin/Breast: Denies: rash or new lesions Neuro: Denies: headache(s), numbness in extremities or weakness in extremities PFS ED PFSH: Medical History Asthma Atypical chest pain Cervical radiculopathy Chest pain 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 COPD (chronic obstructive pulmonary disease) Diastolic CHF Diastolic heart failure Emphysema, unspecified Essential (primary) hypertension GERD (gastroesophageal reflux disease) Hypothyroidism (acquired) Learning disability Lower extremity edema Moderate aortic regurgitation Pain of hand Seizure disorder SVT (supraventricular tachycardia) Systolic murmur Thyroid function study abnormality Venous stasis Surgical History H/O esophagogastroduodenoscopy 03/19/2019: Normal H/O thyroidectomy History of carpal tunnel surgery History of colonoscopy 03/19/2019: Normal repeat in 10 years Hx of section Family History Unknown No problems noted. Social History Smoking and tobacco status: former smoker (06/2020) Quit status (tobacco): has quit using tobacco Year quit tobacco: 2018 - 1-5 ciggs/day Alcohol intake: never Lives independently: Yes Household members: none Housing: Apartment Current occupational status: disabled History of recent travel: No Current gender identity: Female Physical Exam Const: COMMON NORMALS: no acute distress, patient oriented x3 and alert GENERAL APPEARANCE: cooperative and comfortable HENMT: COMMON NORMALS: normocephalic, EAC's normal (Right ear normal) and TM's normal bilaterally HEAD & SCALP: normocephalic EXTERNAL AUDITORY CANAL: EAC's normal (Right ear normal) and Abnormal EAC present EAC laterality: left Details: erythema and EAC tenderness TYMPANIC MEMBRANE: TM's normal bilaterally MOUTH: Normal oral and palatal mucosa present THROAT: posterior oropharynx normal and uvula midline Eye: COMMON NORMALS: Equal, round and reactive pupils present PUPIL: Yes Equal, round and reactive pupils present Neck/C-Spine: COMMON NORMALS: supple GENERAL: Yes normal visual inspection Resp: COMMON NORMALS: normal respiratory effort, No retractions, No use of accessory muscles and clear to auscultation bilaterally AUSCULTATION: clear to auscultation bilaterally Cardio: COMMON NORMALS: regular rate, regular rhythm, S1 normal heart sound present, S2 normal heart sound present, No gallops present (Cardio), No clicks present (Cardio), No murmurs present (Cardio) and Peripheral pulses 2+ throughout RATE: regular rate RHYTHM: regular rhythm HEART SOUNDS: S1 normal heart sound present and S2 normal heart sound present PERIPHERAL PULSES: Peripheral pulses 2+ throughout GI: COMMON NORMALS: Normal to inspection, nondistended, normoactive bowel sounds present, Soft to palpation, non-tender and no masses PALPATION: Yes Soft to palpation : COMMON NORMALS: Yes no CVA tenderness BLADDER/KIDNEY EXAM: Yes no CVA tenderness Back/Pelvis: COMMON NORMALS: no CVA tenderness Extremity: COMMON NORMALS: normal to inspection Neuro: COMMON NORMALS: patient oriented x3 and moves all extremities SENSORIUM/ORIENTATION: Yes alert Skin: GENERAL SKIN EXAM: dry skin Course Vital Signs: Vital signs: Vital Signs Temperature 98.2 F 12/02/20 16:20 Pulse Rate 71 12/02/20 19:14 Respiratory Rate 15 12/02/20 19:14 Blood Pressure 105/70 12/02/20 19:14 Pulse Oximetry 100 12/02/20 19:14 [facility] - General Adult Lab Data: Attestation: I reviewed the patient's lab results. Labs: Lab Results 12/02/20 12/02/20 12/02/20 16:35 17:15 17:15 WBC 10.1 10^3/uL H 10 ^3/uL (4.0-10.0) RBC 4.60 10^6/uL 10^6 /uL (4.1-5.3) Hgb 11.4 g/dL L g/dL (11.5-15.3) Hct 38.8 % % (37.0-47.0) MCV 84.3 fl fl (81-99) MCH 24.8 pg L pg (28.0-34.0) MCHC 29.4 g/dL L g/dL (30.0-36.0) RDW 14.8 % % (12.1-15.1) Plt Count 330 10^3/cmm 10^3 /cmm (130-400) MPV 9.9 fL fL (7.4-10.4) Neut % (Auto) 66.9 % % Lymph % (Auto) 21.4 % % [place] % (Auto) 7.6 % % Eos % (Auto) 2.8 % % Baso % (Auto) 0.8 % % Neut # (Auto) 6.75 10^3/uL 10^3 /uL (1.8-7.7) Lymph # (Auto) 2.2 10^3/uL 10^3/ uL (0.8-4.8) [place] # (Auto) 0.8 10^3/uL 10^3/ uL (0.2-0.9) Eos # (Auto) 0.3 10^3/uL 10^3/ uL (0.0-0.8) Baso # (Auto) 0.1 10^3/uL 10^3/ uL (0.0-0.1) Nucleated RBC % (a uto) 0 % % Nucleated RBCs # 0.0 /100WBC /100W BC Sodium 135 mmol/L L mmol /L (136-145) Potassium 4.0 mmol/L mmol/L (3.5-5.1) Chloride 95 mmol/L L mmol/ L (98-107) Carbon Dioxide 31 mmol/L H mmol/ L (22-29) Anion Gap 13.0 (5-19) BUN 13 mg/dL mg/dL (6-20) Creatinine 0.8 mg/dL mg/dL (0.5-0.9) GFR Calculation 74.5 mL/min L mL/ min (90-130) Glucose 102 mg/dL mg/dL (65-115) Calculated Osmolal ity 280 mOsm/kg L mOs m/kg (285-295) Calcium 9.2 mg/dL mg/dL (8.5-10.5) Total Bilirubin 1.0 mg/dL mg/dL (0.15-1.2) AST 13 U/L U/L (0-32) ALT 9 U/L U/L (0-33) Alkaline Phosphata se 99 IU/L IU/L (35-105) Troponin T Baselin e NT-Pro-B Natriuret Pep 109 pg/mL pg/mL (0-125) Total Protein 6.9 g/dL g/dL (6.6-8.7) Albumin 3.9 g/dL g/dL (3.5-5.2) Globulin 3.0 g/dL g/dL (1.3-4.6) Urine Color Urine Appearance Urine pH Ur Specific Gravit y Urine Protein Urine Glucose (UA) Urine Ketones Urine Blood Urine Nitrate Urine Bilirubin Urine Urobilinogen Ur Leukocyte Jacqui ase Urine RBC Urine WBC Ur Squamous Epith Cells Amorphous Sediment Urine Bacteria Urine Mucus Group A Strep Rapi d Negative (Negative) 12/02/20 12/02/20 17:15 17:25 WBC RBC Hgb Hct MCV MCH MCHC RDW Plt Count MPV Neut % (Auto) Lymph % (Auto) [place] % (Auto) Eos % (Auto) Baso % (Auto) Neut # (Auto) Lymph # (Auto) [place] # (Auto) Eos # (Auto) Baso # (Auto) Nucleated RBC % (a uto) Nucleated RBCs # Sodium Potassium Chloride Carbon Dioxide Anion Gap BUN Creatinine GFR Calculation Glucose Calculated Osmolal ity Calcium Total Bilirubin AST ALT Alkaline Phosphata se Troponin T Baselin e 17 ng/L H ng/L (0-10) NT-Pro-B Natriuret Pep Total Protein Albumin Globulin Urine Color Straw (Yellow) Urine Appearance Hazy A (CLEAR) Urine pH 5 (5-7) Ur Specific Gravit y 1.015 (1.005-1.030) Urine Protein Neg (Negative) Urine Glucose (UA) Norm (Normal) Urine Ketones Negative (Negative) Urine Blood Trace H (Negative) Urine Nitrate Negative (Negative) Urine Bilirubin 1+ H (Negative) Urine Urobilinogen Norm mg/dL mg/dL (Negative) Ur Leukocyte Jacqui ase 1+ H (Negative) Urine RBC 0-4 /hpf H /hpf (0-2) Urine WBC 5-10 /hpf H /hpf (0-5) Ur Squamous Epith Cells 5-10 /hpf H /hpf (0-5) Amorphous Sediment Not Reportable Urine Bacteria 1+ /hpf H /hpf (NONE) Urine Mucus 2+ /hpf /hpf Group A Strep Rapi d EKG Data^: EKG 1: Attestation: I personally reviewed and interpreted this EKG as follows: EKG interpretation date: 12/02/20 Interpretation: Normal sinus rhythm, 73 bpm, no ST segment elevation or depression seen. Computer generated interpretation: Chest X-Ray 12/02/20 16:10 IMPRESSION: 1. No acute cardiopulmonary finding. No change. Discharge Plan Discharge Patient Disposition: Home Clinical Impression: Otitis externa Qualifiers: Otitis externa type: unspecified type Chronicity: acute Laterality: left Qualified Code(s): H60.502 - Unspecified acute noninfective otitis externa, left ear Pharyngitis Qualifiers: Pharyngitis/tonsillitis etiology: unspecified etiology Qualified Code(s): J02.9 - Acute pharyngitis, unspecified COPD (chronic obstructive pulmonary disease) Qualifiers: COPD type: unspecified COPD Qualified Code(s): J44.9 - Chronic obstructive pulmonary disease, unspecified Condition: Stable Prescriptions: New Ciprodex 0.3-0.1 % drops,suspension 4 drp otic (ear) BID 7 Days Qty: 7.5 RF: 0 doxycycline monohydrate 100 mg capsule 100 mg PO BID 7 Days Qty: 14 RF: 0 No Action montelukast [Singulair] 10 mg tablet 10 mg PO DAILY RF: 0 levetiracetam 250 mg tablet 250 mg PO BID RF: 0 aspirin [Adult Aspirin Regimen] 81 mg tablet,delayed release (DR/EC) 81 mg PO DAILY RF: 0 pantoprazole [Protonix] 40 mg tablet,delayed release (DR/EC) 40 mg PO DAILY RF: 0 atorvastatin 20 mg tablet 20 mg PO BEDTIME RF: 0 albuterol sulfate [ProAir HFA] 90 mcg/actuation HFA aerosol inhaler 2 puff INHALATION Q4H PRN (Reason: Shortness Of Breath) RF: 0 levothyroxine 150 mcg tablet 150 mcg PO DAILY Qty: 90 RF: 3 metoclopramide HCl [Reglan] 10 mg tablet 10 mg PO Q6H PRN (Reason: nausea and vomiting) RF: 0 ipratropium bromide 0.02 % solution 2.5 ml inhalation Q6H PRN (Reason: Shortness Of Breath) RF: 0 budesonide 0.5 mg/2 mL suspension for nebulization 0.5 mg inhalation BID PRN (Reason: Shortness Of Breath Or Wheezing) RF: 0 prednisone 20 mg tablet 20 mg PO DAILY Qty: 15 RF: 0 cetirizine 10 mg capsule 10 mg PO DAILY RF: 0 bumetanide 2 mg tablet 2 mg PO DAILY RF: 0 potassium chloride 20 mEq tablet extended release 20 meq PO DAILY RF: 0 fluticasone propionate 50 mcg/actuation spray,suspension See Rx Instructions .ROUTE .COMPLEX RF: 0 spironolactone 25 mg tablet 50 mg PO DAILY RF: 0 sucralfate 1 gram tablet 1 g PO TID RF: 0 Discharge Orders: Discharge ED (Routine); Ordered 12/02/20 Ordered By: Raul Troncoso Referrals: Татьяна Storm FNP [Primary Care Provider] - Discharge Diet: Usual diet Discharge Activity: Increase activity as tolerated Patient Instructions: Pharyngitis (ED), Opioid Safety Activity Restrictions/Additional Instructions: Home and rest. Drink plenty of water. Use acetaminophen or ibuprofen as needed for pain. Use eardrops 4 drops in the left ear twice a day for the next 7 days. Take doxycycline 100 mg twice a day for the next 7 days. Follow-up with primary care in 1 week. Return to the emergency department for worsening symptoms or new concerns. Sign Out Sign Out Data: Patient Sign Out occurred on 12/02/20 at 17:08. Patient's care was discussed, and care was transferred from to Raul Troncoso. 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 COPD (chronic obstructive pulmonary disease) Diastolic CHF Diastolic heart failure Emphysema, unspecified Essential (primary) hypertension GERD (gastroesophageal reflux disease) Hypothyroidism (acquired) Learning disability Lower extremity edema Moderate aortic regurgitation Pain of hand Seizure disorder SVT (supraventricular tachycardia) Systolic murmur Thyroid function study abnormality Venous stasis Surgical History H/O esophagogastroduodenoscopy 03/19/2019: Normal H/O thyroidectomy History of carpal tunnel surgery History of colonoscopy 03/19/2019: Normal repeat in 10 years Hx of section Family History Unknown No problems noted. Social History Smoking and tobacco status: former smoker (06/2020) Quit status (tobacco): has quit using tobacco Year quit tobacco: 2019 - 1-5 ciggs/day Alcohol intake: never Lives independently: Yes Household members: none Housing: Apartment Current occupational status: disabled History of recent travel: No Current gender identity: Female Course Vital Signs: Vital signs: Vital Signs Temperature 98.2 F 12/02/20 16:20 Pulse Rate 71 12/02/20 19:14 Respiratory Rate 15 12/02/20 19:14 Blood Pressure 105/70 12/02/20 19:14 Pulse Oximetry 100 12/02/20 19:14 MDM - General Adult MDM Narrative: Medical decision making narrative: 54-year-old female comes in today with complaints of left ear pain, sore throat, and cough with occasional discomfort with deep breath. On exam patient appears chronically ill. Abdomen is obese. Lungs are clear to auscultation. Skin is warm and dry. Evaluation of the left ear canal notes a significant abrasion with some erythema. Differential diagnosis includes but not limited to strep pharyngitis, upper respiratory infection, otitis externa, pneumonia. Chest x-ray noted no significant sign of pneumonia. Laboratory values were unremarkable. EKG was sinus rhythm without any ectopy or ST elevation. Reviewed exam with patient with recommendations for treatment with 1 dose of dexamethasone 10 mg for pharyngitis. We will cover the abrasion to the ear canal with some Ciprodex for possible otitis externa. Patient will be covered with doxycycline 100 mg twice a day due to her COPD. Patient reported understanding of care plan and need for follow-up or return to the ER for worsening symptoms. Lab Data: Labs: Lab Results 12/02/20 12/02/20 12/02/20 16:35 17:15 17:15 WBC 10.1 10^3/uL H 10 ^3/uL (4.0-10.0) RBC 4.60 10^6/uL 10^6 /uL (4.1-5.3) Hgb 11.4 g/dL L g/dL (11.5-15.3) Hct 38.8 % % (37.0-47.0) MCV 84.3 fl fl (81-99) MCH 24.8 pg L pg (28.0-34.0) MCHC 29.4 g/dL L g/dL (30.0-36.0) RDW 14.8 % % (12.1-15.1) Plt Count 330 10^3/cmm 10^3 /cmm (130-400) MPV 9.9 fL fL (7.4-10.4) Neut % (Auto) 66.9 % % Lymph % (Auto) 21.4 % % [place] % (Auto) 7.6 % % Eos % (Auto) 2.8 % % Baso % (Auto) 0.8 % % Neut # (Auto) 6.75 10^3/uL 10^3 /uL (1.8-7.7) Lymph # (Auto) 2.2 10^3/uL 10^3/ uL (0.8-4.8) [place] # (Auto) 0.8 10^3/uL 10^3/ uL (0.2-0.9) Eos # (Auto) 0.3 10^3/uL 10^3/ uL (0.0-0.8) Baso # (Auto) 0.1 10^3/uL 10^3/ uL (0.0-0.1) Nucleated RBC % (a uto) 0 % % Nucleated RBCs # 0.0 /100WBC /100W BC Sodium 135 mmol/L L mmol /L (136-145) Potassium 4.0 mmol/L mmol/L (3.5-5.1) Chloride 95 mmol/L L mmol/ L (98-107) Carbon Dioxide 31 mmol/L H mmol/ L (22-29) Anion Gap 13.0 (5-19) BUN 13 mg/dL mg/dL (6-20) Creatinine 0.8 mg/dL mg/dL (0.5-0.9) GFR Calculation 74.5 mL/min L mL/ min (90-130) Glucose 102 mg/dL mg/dL (65-115) Calculated Osmolal ity 280 mOsm/kg L mOs m/kg (285-295) Calcium 9.2 mg/dL mg/dL (8.5-10.5) Total Bilirubin 1.0 mg/dL mg/dL (0.15-1.2) AST 13 U/L U/L (0-32) ALT 9 U/L U/L (0-33) Alkaline Phosphata se 99 IU/L IU/L (35-105) Troponin T Baselin e NT-Pro-B Natriuret Pep 109 pg/mL pg/mL (0-125) Total Protein 6.9 g/dL g/dL (6.6-8.7) Albumin 3.9 g/dL g/dL (3.5-5.2) Globulin 3.0 g/dL g/dL (1.3-4.6) Urine Color Urine Appearance Urine pH Ur Specific Gravit y Urine Protein Urine Glucose (UA) Urine Ketones Urine Blood Urine Nitrate Urine Bilirubin Urine Urobilinogen Ur Leukocyte Jacqui ase Urine RBC Urine WBC Ur Squamous Epith Cells Amorphous Sediment Urine Bacteria Urine Mucus Group A Strep Rapi d Negative (Negative) 12/02/20 12/02/20 17:15 17:25 WBC RBC Hgb Hct MCV MCH MCHC RDW Plt Count MPV Neut % (Auto) Lymph % (Auto) [place] % (Auto) Eos % (Auto) Baso % (Auto) Neut # (Auto) Lymph # (Auto) [place] # (Auto) Eos # (Auto) Baso # (Auto) Nucleated RBC % (a uto) Nucleated RBCs # Sodium Potassium Chloride Carbon Dioxide Anion Gap BUN Creatinine GFR Calculation Glucose Calculated Osmolal ity Calcium Total Bilirubin AST ALT Alkaline Phosphata se Troponin T Baselin e 17 ng/L H ng/L (0-10) NT-Pro-B Natriuret Pep Total Protein Albumin Globulin Urine Color Straw (Yellow) Urine Appearance Hazy A (CLEAR) Urine pH 5 (5-7) Ur Specific Gravit y 1.015 (1.005-1.030) Urine Protein Neg (Negative) Urine Glucose (UA) Norm (Normal) Urine Ketones Negative (Negative) Urine Blood Trace H (Negative) Urine Nitrate Negative (Negative) Urine Bilirubin 1+ H (Negative) Urine Urobilinogen Norm mg/dL mg/dL (Negative) Ur Leukocyte Jacqui ase 1+ H (Negative) Urine RBC 0-4 /hpf H /hpf (0-2) Urine WBC 5-10 /hpf H /hpf (0-5) Ur Squamous Epith Cells 5-10 /hpf H /hpf (0-5) Amorphous Sediment Not Reportable Urine Bacteria 1+ /hpf H /hpf (NONE) Urine Mucus 2+ /hpf /hpf Group A Strep Rapi d EKG Data^: EKG 1: Computer generated interpretation: Chest X-Ray 12/02/20 16:10 IMPRESSION: 1. No acute cardiopulmonary finding. No change. Discharge Plan Discharge Patient Disposition: Home Clinical Impression: Otitis externa Qualifiers: Otitis externa type: unspecified type Chronicity: acute Laterality: left Qualified Code(s): H60.502 - Unspecified acute noninfective otitis externa, left ear Pharyngitis Qualifiers: Pharyngitis/tonsillitis etiology: unspecified etiology Qualified Code(s): J02.9 - Acute pharyngitis, unspecified COPD (chronic obstructive pulmonary disease) Qualifiers: COPD type: unspecified COPD Qualified Code(s): J44.9 - Chronic obstructive pulmonary disease, unspecified Condition: Stable Prescriptions: New Ciprodex 0.3-0.1 % drops,suspension 4 drp otic (ear) BID 7 Days Qty: 7.5 RF: 0 doxycycline monohydrate 100 mg capsule 100 mg PO BID 7 Days Qty: 14 RF: 0 No Action montelukast [Singulair] 10 mg tablet 10 mg PO DAILY RF: 0 levetiracetam 250 mg tablet 250 mg PO BID RF: 0 aspirin [Adult Aspirin Regimen] 81 mg tablet,delayed release (DR/EC) 81 mg PO DAILY RF: 0 pantoprazole [Protonix] 40 mg tablet,delayed release (DR/EC) 40 mg PO DAILY RF: 0 atorvastatin 20 mg tablet 20 mg PO BEDTIME RF: 0 albuterol sulfate [ProAir HFA] 90 mcg/actuation HFA aerosol inhaler 2 puff INHALATION Q4H PRN (Reason: Shortness Of Breath) RF: 0 levothyroxine 150 mcg tablet 150 mcg PO DAILY Qty: 90 RF: 3 metoclopramide HCl [Reglan] 10 mg tablet 10 mg PO Q6H PRN (Reason: nausea and vomiting) RF: 0 ipratropium bromide 0.02 % solution 2.5 ml inhalation Q6H PRN (Reason: Shortness Of Breath) RF: 0 budesonide 0.5 mg/2 mL suspension for nebulization 0.5 mg inhalation BID PRN (Reason: Shortness Of Breath Or Wheezing) RF: 0 prednisone 20 mg tablet 20 mg PO DAILY Qty: 15 RF: 0 cetirizine 10 mg capsule 10 mg PO DAILY RF: 0 bumetanide 2 mg tablet 2 mg PO DAILY RF: 0 potassium chloride 20 mEq tablet extended release 20 meq PO DAILY RF: 0 fluticasone propionate 50 mcg/actuation spray,suspension See Rx Instructions .ROUTE .COMPLEX RF: 0 spironolactone 25 mg tablet 50 mg PO DAILY RF: 0 sucralfate 1 gram tablet 1 g PO TID RF: 0 Discharge Orders: Discharge ED (Routine); Ordered 12/02/20 Ordered By: Raul Troncoso Referrals: Татьяна Storm CHIEF COOK [Primary Care Provider] - Discharge Diet: Usual diet Discharge Activity: Increase activity as tolerated Patient Instructions: Pharyngitis (ED), Opioid Safety Activity Restrictions/Additional Instructions: Home and rest. Drink plenty of water. Use acetaminophen or ibuprofen as needed for pain. Use eardrops 4 drops in the left ear twice a day for the next 7 days. Take doxycycline 100 mg twice a day for the next 7 days. Follow-up with primary care in 1 week. Return to the emergency department for worsening symptoms or new concerns. Sign Out Sign Out Data: Patient Sign Out occurred on 12/02/20 at 17:08. Patient's care was discussed, and care was transferred from to Raul Troncoso. Coding Level of Care Code ED Licensed Pesticide Applicator for Dc Serrato Exam Comprehensive
--- NOTE | 2020-12-02 16:10 | XR_ITS ---
WS: [id number] Exam: XR chest 1V portable [id number] Date/Time of Exam: 12/02/2020 4:10 PM Reason For Exam: sob Comparison 08/07/2020. The lungs are clear and fully expanded. Cardiomediastinal structures are unremarkable for AP portable technique. No pleural effusions. Regional bony structures appear normal. XR/XR chest 1V portable [id number] IMPRESSION: 1. No acute cardiopulmonary finding. No change.
--- NOTE | 2020-12-02 16:11 | ECG_ITS ---
[facility] Test Date: 2020-12-02 Pat Name: Crystal Pierre Department: Room: Gender: Female Senior Policy Advisor: : 1965 Requested By: Alex Vieira Order Number: [id number] Clemencia MD: Funmilayo De La Rosa M.D. Measurements Intervals [place] Rate: 73 P: 66 W[place]: 136 QRS: 54 QRSD: 106 T: 54 QT: 409 QTc: 453 Interpretive Statements SINUS RHYTHM POSSIBLE RIGHT VENTRICULAR CONDUCTION DELAY [RSR (QR) IN V1/V2] INTERPRETATION BASED ON A DEFAULT AGE OF 40 YEARS Compared to ECG 10/21/2020 12:44:21 No significant changes Electronically Signed On 12-03-2020 1:25:10 CDT by Funmilayo De La Rosa M.D. [id number]
[2020-12-02 16:20] VITALS: BP 139/85; PULSE 71; PULSE 77; RESP 16; TEMP 36.8
[2020-12-02 16:47] LABS: Rapid Strep A Test Negative (Negative)
[2020-12-02 17:26] LABS: Basophils # 0.1 10^3/uL (0.0-0.1); Basophils % 0.8 %; Eosinophils # 0.3 10^3/uL (0.0-0.8); Eosinophils % 2.8 %; Hematocrit 38.8 % (37.0-47.0); Hemoglobin 11.4 g/dL (11.5-15.3); Lymphocytes # 2.2 10^3/uL (0.8-4.8); Lymphocytes % 21.4 %; Mean Corpuscular HGB Conc 29.4 g/dL (30.0-36.0); Mean Corpuscular Hemoglobin 24.8 pg (28.0-34.0); Mean Corpuscular Volume 84.3 fl (81-99); Mean Platelet Volume 9.9 fL (7.4-10.4); Monocytes # 0.8 10^3/uL (0.2-0.9); Monocytes % 7.6 %; Neutrophils # 6.75 10^3/uL (1.8-7.7); Neutrophils % 66.9 %; Nucleated Red Blood Cells % 0 %; Platelet Count 330 10^3/cmm (130-400); Red Cell Distribution Width 14.8 % (12.1-15.1); White Blood Count 10.1 10^3/uL (4.0-10.0)
[2020-12-02 18:04] LABS: Alanine Aminotransferase 9 U/L (0-33); Albumin Level 3.9 g/dL (3.5-5.2); Alkaline Phosphatase 99 IU/L (35-105); Aspartate Amino Transferase 13 U/L (0-32); Blood Urea Nitrogen 13 mg/dL (6-20); Calcium 9.2 mg/dL (8.5-10.5); Carbon Dioxide 31 mmol/L (22-29); Chloride 95 mmol/L (98-107); Creatinine Clr Calc Pharmacy 96.4287; Glomerular Filtration Rate 74.5 mL/min (90-130); Glucose 102 mg/dL (65-115); NT Pro B Type Natriuretic Pept 109 pg/mL (0-125); Osmolality Calculated 280 mOsm/kg (285-295); Sodium 135 mmol/L (136-145); Total Protein 6.9 g/dL (6.6-8.7)
[2020-12-02] MEDS: aspirin 81 mg Chew Tablet 162 MG PO (18:10)
[2020-12-02 18:29] LABS: Add Urine Culture? No; Add Urine Microscopic? YES; Bacteria Urine 1+ /hpf; Bilirubin Urine 1+ (Negative); Blood Urine Trace (Negative); Glucose Urine UA Norm (Normal); Ketones Urine Negative (Negative); Leukocyte Esterase Urine 1+ (Negative); Mucus Urine 2+ /hpf; Nitrate Urine Negative (Negative); Protein Urine Neg (Negative); RBC Urine 0-4 /hpf (0-2); Specific Gravity, Urine 1.015 (1.005-1.030); Urine Appearance Hazy (CLEAR); Urine Color Straw (Yellow); Urobilinogen Urine Norm (Negative); pH Urine 5 (5-7)
[2020-12-02 18:45] LABS: Troponin(5th) Baseline 17 ng/L (0-10)
[2020-12-02] MEDS: doxycycline 100 mg Tablet PO (19:09)
[2020-12-02] MEDS: dexamethasone 4 mg Tablet 10 MG PO (19:09)
[2020-12-02 19:14] VITALS: BP 105/70; PULSE 71; RESP 15; O2SAT 100
== END 2020-12-02 19:37 | disposition home or self-care (01) ==
PROVIDERS: Physician Assistant; Emergency Provider Nurse Practitioner Family; PCP Nurse Practitioner Family
DX: H60.502 Unspecified acute noninfective otitis externa, left ear (principal); J02.9 Acute pharyngitis, unspecified; J44.9 Chronic obstructive pulmonary disease, unspecified; Z79.82 Long term (current) use of aspirin; Z87.891 Personal history of nicotine dependence; K21.9 Gastro-esophageal reflux disease without esophagitis; G40.909 Epilepsy, unspecified, not intractable, without status epilepticus; I11.0 Hypertensive heart disease with heart failure; I50.30 Unspecified diastolic (congestive) heart failure
CPT/HCPCS: 36415; 71045; 80053; 81001; 83880; 84484; 85025; 87040; 87081; 87880; 93005; 99284; J8540

== ENCOUNTER 2020-12-17 08:23 | Emergency (ER) | payer MEDICARE, MEDICAID, SELFPAY ==
--- NOTE | 2020-12-17 08:34 | ED_ITS ---
HPI - Abdominal Pain General: Chief Complaint: Back Pain/Injury Stated Complaint: R LOWER BACK PAIN Time Seen by Provider: 12/17/20 08:27 Source: patient and EMS Mode of arrival: EMS Limitations: no limitations History of Present Illness: HPI narrative: Patient is a 54-year-old female who presents to the ED today with a complaint of right-sided back pain with radiation into her abdomen. Patient tells me pain began fairly abruptly yesterday evening and awoke her from sleep. She states she continued to have pain throughout the night and this morning but therefore decided to call an ambulance. She denies nausea, vomiting, changes in bowel habits. She is not having any urinary symptoms. No fevers. She denies chest pain or shortness of breath. Patient is unaware of any previous abdominal surgeries. She has no history of kidney/ureter stones. MD elicited complaint: abdominal pain and flank pain Onset (ago): hour(s) Pain Consistency: constant Location: RUQ, RLQ and R flank Severity: severe Quality: sharp Relieving factors: nothing Associated Symptoms: Denies change in stool character, chills, diarrhea, dysuria, fever(s), nausea and vomiting Related Data: Patient : No Review of Systems Const: Denies: fever(s), chills, body aches, fatigue or malaise Card: Denies: chest pain or palpitations Resp: Denies: dyspnea GI: Reports: abdominal pain; Denies: nausea, vomiting, diarrhea or change in stool character : Reports: flank pain; Denies: difficulty voiding, dysuria, urinary frequency, urinary urgency or urinary hesitancy Musc: Reports: back pain (R sided); Denies: neck pain, extremity pain, joint pain or joint swelling Skin/Breast: Denies: rash Neuro: Denies: headache(s), numbness in extremities, weakness in extremities or sensory changes PFS ED PFSH: Medical History Asthma Atypical chest pain Cervical radiculopathy Chest pain 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 COPD (chronic obstructive pulmonary disease) Diastolic CHF Diastolic heart failure Emphysema, unspecified Essential (primary) hypertension GERD (gastroesophageal reflux disease) Hypothyroidism (acquired) Learning disability Lower extremity edema Moderate aortic regurgitation Pain of hand Seizure disorder SVT (supraventricular tachycardia) Systolic murmur Thyroid function study abnormality Venous stasis Surgical History H/O esophagogastroduodenoscopy 03/19/2019: Normal H/O thyroidectomy History of carpal tunnel surgery History of colonoscopy 03/19/2019: Normal repeat in 10 years Hx of section Family History Unknown No problems noted. Social History Smoking and tobacco status: former smoker (06/2020) Quit status (tobacco): has quit using tobacco Year quit tobacco: 2018 - -5 ciggs/day Alcohol intake: never Lives independently: Yes Household members: none Housing: Apartment Current occupational status: disabled History of recent travel: No Current gender identity: Female Physical Exam Const: COMMON NORMALS: no acute distress, patient oriented x3, no limitations and alert GENERAL APPEARANCE: cooperative NUTRITIONAL APPEARANCE: obese morbidly obese ORIENTATION/CONSCIOUSNESS: Yes awake, Yes oriented to person, Yes oriented to place and Yes oriented to time HENMT: COMMON NORMALS: normocephalic and atraumatic HEAD & SCALP: normocephalic and atraumatic Resp: COMMON NORMALS: normal respiratory effort and clear to auscultation bilaterally AUSCULTATION: clear to auscultation bilaterally Cardio: COMMON NORMALS: regular rate and regular rhythm RATE: regular rate RHYTHM: regular rhythm GI: COMMON NORMALS: Soft to palpation INSPECTION: Yes normal to inspection AUSCULTATION: Yes normoactive bowel sounds PALPATION: Yes Soft to palpation and Yes Tenderness to palpation present (GI) (throughout R side) OTHER: exam limited secondary to morbid obesity : BLADDER/KIDNEY EXAM: Yes CVA tenderness on the right Back/Pelvis: GENERAL BACK: Yes CVA tenderness THORACIC SPINE/UPPER BACK: No thoracic spinal tenderness LUMBAR SPINE/LOWER BACK: No lumbar spinal tenderness Extremity: COMMON NORMALS: normal to inspection Neuro: COMMON NORMALS: patient oriented x3 SENSORIUM/ORIENTATION: Yes alert, Yes oriented to person, Yes oriented to place and Yes oriented to time Skin: RASHES: no rashes Course ED course: Patient complaining of pruritus. She does have developing rash/hives. Patient did report allergy to IV contrast with her allergy being hives. She was premedicated with IV hydrocortisone as they have done this previously successfully. She has an allergy to diphenhydramine. Following her development of hives I asked what her contraindication is to diphenhydramine and she states it makes her nauseous. We will go ahead and administer this along with Zofran for treatment of her contrast-induced allergy. Vital Signs: Vital signs: Vital Signs Temperature 98.0 F 12/17/20 09:15 Pulse Rate 72 12/17/20 09:15 Respiratory Rate 20 H 12/17/20 09:55 Blood Pressure 136/69 12/17/20 09:15 Pulse Oximetry 95 12/17/20 09:55 MDM - Abdominal Pain MDM Narrative: Medical decision making narrative: Patient clinically appears in no acute distress. Her vital signs are stable. Lab work is unremarkable. Her CT imaging is negative. Patient did have a contrast-induced allergic reaction here that was successfully treated with Benadryl (this was initially held as she had an allergy to Benadryl but given later along with Zofran). Patient's hives have completely subsided. At this time she will be allowed discharge. Return to ED precautions given. Lab Data: Labs: Lab Results 12/17/20 12/17/20 12/17/20 09:50 10:32 10:32 WBC 8.7 10^3/uL 10^3/ uL (4.0-10.0) RBC 4.36 10^6/uL 10^6 /uL (4.1-5.3) Hgb 11.0 g/dL L g/dL (11.5-15.3) Hct 36.9 % L % (37.0-47.0) MCV 84.6 fl fl (81-99) MCH 25.2 pg L pg (28.0-34.0) MCHC 29.8 g/dL L g/dL (30.0-36.0) RDW 15.8 % H % (12.1-15.1) Plt Count 336 10^3/cmm 10^3 /cmm (130-400) MPV 9.6 fL fL (7.4-10.4) Neut % (Auto) 66.2 % % Lymph % (Auto) 21.5 % % [place] % (Auto) 8.0 % % Eos % (Auto) 2.9 % % Baso % (Auto) 0.7 % % Neut # (Auto) 5.76 10^3/uL 10^3 /uL (1.8-7.7) Lymph # (Auto) 1.9 10^3/uL 10^3/ uL (0.8-4.8) [place] # (Auto) 0.7 10^3/uL 10^3/ uL (0.2-0.9) Eos # (Auto) 0.3 10^3/uL 10^3/ uL (0.0-0.8) Baso # (Auto) 0.1 10^3/uL 10^3/ uL (0.0-0.1) Nucleated RBC % (a uto) 0 % % Nucleated RBCs # 0.0 /100WBC /100W BC Sodium 141 mmol/L mmol/L (136-145) Potassium 4.4 mmol/L mmol/L (3.5-5.1) Chloride 100 mmol/L mmol/L (98-107) Carbon Dioxide 32 mmol/L H mmol/ L (22-29) Anion Gap 13.4 (5-19) BUN 11 mg/dL mg/dL (6-20) Creatinine 0.9 mg/dL mg/dL (0.5-0.9) GFR Calculation 65.0 mL/min L mL/ min (90-130) Glucose 104 mg/dL mg/dL (65-115) Calculated Osmolal ity 292 mOsm/kg mOsm/ kg (285-295) Calcium 9.0 mg/dL mg/dL (8.5-10.5) Total Bilirubin 0.8 mg/dL mg/dL (0.15-1.2) AST 12 U/L U/L (0-32) ALT 9 U/L U/L (0-33) Alkaline Phosphata se 95 IU/L IU/L (35-105) Total Protein 6.3 g/dL L g/dL (6.6-8.7) Albumin 3.6 g/dL g/dL (3.5-5.2) Globulin 2.7 g/dL g/dL (1.3-4.6) Lipase 28 U/L U/L (13-60) Urine Color Colorless (Yellow) Urine Appearance Clear (CLEAR) Urine pH 7 (5-7) Ur Specific Gravit y 1.000 L (1.005-1.030) Urine Protein Neg (Negative) Urine Glucose (UA) Norm (Normal) Urine Ketones Negative (Negative) Urine Blood Neg (Negative) Urine Nitrate Negative (Negative) Urine Bilirubin Neg (Negative) Urine Urobilinogen Norm mg/dL mg/dL (Negative) Ur Leukocyte Jacqui ase Negative (Negative) Imaging Data ^: CT Abd/Pel: Radiologist's impression: [facility] [place], [place] [address]FM Scan ReportSigned Patient: Crystal Pierre #: [id number]: 1965Acct#:[id number]/Sex: 54 / FADM Date: 12/17/20Loc: ERRoom/Bed:Attending Dr: Ordering Provider/Ordering MD: Vickie Nelson Date of Service: 12/17/20 Procedure(s): CT abdomen pelvis w con* [id number] Accession Number(s): [id number] Report Number: [id number] WS: [id number] CT ABDOMEN AND PELVIS WITH CONTRAST HISTORY: Right-sided abdominal and back pain. TECHNIQUE: Imaging performed of the abdomen and pelvis with IV contrast. Single phase imaging of the abdomen. Coronal and sagittal reformats are submitted. All CT scans at [facility] use at least one of these dose optimization techniques: automated exposure control; mA and/or kV adjustment per patient size (includes targeted exams where dose is matched to clinical indication); or iterative reconstruction. IV CONTRAST: Visipaque 320; 95 mL IV. Oral contrast: No DLP: 1928.3 mGy.cm COMPARISON: 01/07/2020 Lower thorax: Lung bases are clear. No enlarged heart. No effusion. No hiatal hernia. Liver/biliary system: Normal size with no intrahepatic dilatation. Gallbladder: Status post cholecystectomy. Pancreas: Normal size pancreas. Hyperdense focus well-circumscribed pancreatic tail may be a splenule. This nodule has been present on multiple prior studies with no increase in size. Spleen: Normal size spleen. No mass or infarct. Adrenal glands: Normal. Right kidney: Normal. Left kidney: Normal. Aorta: Mild atherosclerosis with no aneurysm. Lymphadenopathy: None. Free fluid: None. GI tract: No evidence for appendicitis or GI tract obstruction. Abdominal wall: Unremarkable abdominal wall. No hernia. Pelvis: Uterus is anteverted. There is a small amount of fluid in the endometrial canal. Near the endocervical region is a hypodense focus measures 8 mm. Bones: Unremarkable. CT/CT abdomen pelvis w con* [id number] IMPRESSION: 1. No acute abdominal or pelvic abnormalities are identified. No GI tract obstruction. 2. No renal obstruction. 3. Prior cholecystectomy. 4. Small amount of fluid along the endocervical canal and a possible polyp at the endocervical junction. No change since 01/07/2020. Dictated By:Kadi Ceballos DOSigned By:Kadi Ceballos DOSigned Date/Time:12/17/20 1307DD/ 1257 Discharge Plan Discharge Patient Disposition: Home Clinical Impression: Acute right-sided back pain Qualifiers: Back pain location: thoracic back pain Qualified Code(s): M54.6 - Pain in thoracic spine Condition: Stable Prescriptions: No Action montelukast [Singulair] 10 mg tablet 10 mg PO DAILY RF: 0 levetiracetam 250 mg tablet 250 mg PO BID RF: 0 aspirin [Adult Aspirin Regimen] 81 mg tablet,delayed release (DR/EC) 81 mg PO DAILY RF: 0 pantoprazole [Protonix] 40 mg tablet,delayed release (DR/EC) 40 mg PO DAILY RF: 0 atorvastatin 20 mg tablet 20 mg PO BEDTIME RF: 0 albuterol sulfate [ProAir HFA] 90 mcg/actuation HFA aerosol inhaler 2 puff INHALATION Q4H PRN (Reason: Shortness Of Breath) RF: 0 levothyroxine 150 mcg tablet 150 mcg PO DAILY Qty: 90 RF: 3 metoclopramide HCl [Reglan] 10 mg tablet 10 mg PO Q6H PRN (Reason: nausea and vomiting) RF: 0 ipratropium bromide 0.02 % solution 2.5 ml inhalation Q6H PRN (Reason: Shortness Of Breath) RF: 0 budesonide 0.5 mg/2 mL suspension for nebulization 0.5 mg inhalation BID PRN (Reason: Shortness Of Breath Or Wheezing) RF: 0 prednisone 20 mg tablet 20 mg PO DAILY Qty: 15 RF: 0 cetirizine 10 mg capsule 10 mg PO DAILY RF: 0 bumetanide 2 mg tablet 2 mg PO DAILY RF: 0 potassium chloride 20 mEq tablet extended release 20 meq PO DAILY RF: 0 fluticasone propionate 50 mcg/actuation spray,suspension See Rx Instructions .ROUTE .COMPLEX RF: 0 spironolactone 25 mg tablet 50 mg PO DAILY RF: 0 sucralfate 1 gram tablet 1 g PO TID RF: 0 Discharge Orders: Discharge ED (Routine); Ordered 12/17/20 Ordered By: Vickie Nelson Referrals: Татьяна Storm [employer] CLAIM REP [Primary Care Provider] - Coding Level of Care Code ED Chain Dyer for Chg Fwd Exam Comprehensive
[2020-12-17 09:15] VITALS: BP 136/69; PULSE 72; RESP 18; TEMP 36.7; O2SAT 100
[2020-12-17] MEDS: sodium chloride 0.9% 1,000 ML 999 ML IV (09:54)
[2020-12-17 09:55] VITALS: RESP 20; O2SAT 95
[2020-12-17] MEDS: morphine 4 mg/mL SDV 1 mL IVP (09:55)
[2020-12-17] MEDS: ondansetron 2 mg/ML SDV 2 mL 4 MG IVP ×2 (09:56→13:31)
[2020-12-17 10:04] VITALS: BMI 45.8
[2020-12-17 10:16] LABS: Add Urine Microscopic? NO; Charge for UA Resulting for Rev
[2020-12-17 10:25] LABS: Bilirubin Urine Neg (Negative); Blood Urine Neg (Negative); Glucose Urine UA Norm (Normal); Ketones Urine Negative (Negative); Leukocyte Esterase Urine Negative (Negative); Nitrate Urine Negative (Negative); Protein Urine Neg (Negative); Urine Appearance Clear (CLEAR); Urine Color Colorless (Yellow); Urobilinogen Urine Norm (Negative); pH Urine 7 (5-7)
--- NOTE | 2020-12-17 10:27 | CT_ITS ---
WS: [id number] CT ABDOMEN AND PELVIS WITH CONTRAST HISTORY: Right-sided abdominal and back pain. TECHNIQUE: Imaging performed of the abdomen and pelvis with IV contrast. Single phase imaging of the abdomen. Coronal and sagittal reformats are submitted. All CT scans at [facility] use at [address] [facility] one of these dose optimization techniques: automated exposure control; mA and/or kV adjustment per patient size (includes targeted exams where dose is matched to clinical indication); or iterative re construction. IV CONTRAST: Visipaque 320; 95 mL IV. Oral contrast: No DLP: 1928.3 mGy.cm COMPARISON: 01/07/2020 Lower thorax: Lung bases are clear. No enlarged heart. No effusion. No hiatal hernia. Liver/biliary system: Normal size with no intrahepatic dilatation. Gallbladder: Status post cholecystectomy. Pancreas: Normal size pancreas. Hyperdense focus well-circumscribed pancreatic tail may be a splenule . This nodule has been present on multiple prior studies with no increase in size. Spleen: Normal size spleen. No mass or infarct. Adrenal glands: Normal. Right kidney: Normal. Left kidney: Normal. Aorta: Mild atherosclerosis with no aneurysm. Lymphadenopathy: None. Free fluid: None. GI tract: No evidence for appendicitis or GI tract obstruction. Abdominal wall: Unremarkable abdominal wall. No hernia. Pelvis: Uterus is anteverted. There is a small amount of fluid in the endometrial canal. Near the end ocervical region is a hypodense focus measures 8 mm. Bones: Unremarkable. CT/CT abdomen pelvis w con* [id number] IMPRESSION: 1. No acute abdominal or pelvic abnormalities are identified. No GI tract obst ruction. 2. No renal obstruction. 3. Prior cholecystectomy. 4. Small amount of fluid along the endocervical canal and a possible polyp at the endocervical junction. No change since 01/07/2020.
[2020-12-17 10:41] LABS: Basophils # 0.1 10^3/uL (0.0-0.1); Basophils % 0.7 %; Eosinophils # 0.3 10^3/uL (0.0-0.8); Eosinophils % 2.9 %; Hematocrit 36.9 % (37.0-47.0); Lymphocytes # 1.9 10^3/uL (0.8-4.8); Lymphocytes % 21.5 %; Mean Corpuscular HGB Conc 29.8 g/dL (30.0-36.0); Mean Corpuscular Hemoglobin 25.2 pg (28.0-34.0); Mean Corpuscular Volume 84.6 fl (81-99); Mean Platelet Volume 9.6 fL (7.4-10.4); Monocytes # 0.7 10^3/uL (0.2-0.9); Neutrophils # 5.76 10^3/uL (1.8-7.7); Neutrophils % 66.2 %; Nucleated Red Blood Cells % 0 %; Platelet Count 336 10^3/cmm (130-400); Red Blood Count 4.36 10^6/uL (4.1-5.3); Red Cell Distribution Width 15.8 % (12.1-15.1); White Blood Count 8.7 10^3/uL (4.0-10.0)
[2020-12-17] MEDS: hydrocortisone 100 mg/2 mL SDV IVP (10:51)
--- NOTE | 2020-12-17 10:53 | PC.NURSE ---
Pt arrived via EMS from home where she lives alone. Pt reports she was sleeping and woke suddenly with a sharp pain on her lower bag. Pt states she put a hot rag on the area with no improvement, pt reports taking 400mg Ibuprofen then went back top bed. Pt states she was able to rest off and on until this moring when she woke but the pain had not improved and had radiated to the middle of her abdomen as well. Pt reports pain 9/10, vss, pt A/O x4, placed on monitor
[2020-12-17 10:56] LABS: Alanine Aminotransferase 9 U/L (0-33); Albumin Level 3.6 g/dL (3.5-5.2); Alkaline Phosphatase 95 IU/L (35-105); Anion Gap 13.4 (5-19); Aspartate Amino Transferase 12 U/L (0-32); Blood Urea Nitrogen 11 mg/dL (6-20); Carbon Dioxide 32 mmol/L (22-29); Chloride 100 mmol/L (98-107); Globulin 2.7 g/dL (1.3-4.6); Glucose 104 mg/dL (65-115); Lipase 28 U/L (13-60); Osmolality Calculated 292 mOsm/kg (285-295); Potassium 4.4 mmol/L (3.5-5.1); Sodium 141 mmol/L (136-145); Total Bilirubin 0.8 mg/dL (0.15-1.2); Total Protein 6.3 g/dL (6.6-8.7)
[2020-12-17] MEDS: iodixanol 320 mg/mL 100mL Btl IV (12:44)
[2020-12-17] MEDS: diphenhydrAMINE 50 mg/mL SDV 1mL IVP (13:31)
--- NOTE | 2020-12-17 13:50 | XR_ITS ---
WS: [id number] Portable AP upright chest, 12/17/2020 Clinical Data: SOB Comparison: Portable chest, 12/02/2020. Findings: No nodules, masses or effusions are seen. The heart is at the upper limits of normal. The p ulmonary vascularity is not increased. No pneumonia or pneumothorax is seen. XR/XR chest 1V portable [id number] Impression: Cardiomegaly
--- NOTE | 2020-12-17 15:05 | PC.NURSE ---
Call placed to [facility] to arrange a ride home for pt, pt discharged and waiting in ER waiting room.
== END 2020-12-17 15:21 | disposition home or self-care (01) ==
PROVIDERS: Emergency Provider Physician Assistant; PCP Nurse Practitioner Family
DX: M54.6 Pain in thoracic spine (principal); Z79.82 Long term (current) use of aspirin; J44.9 Chronic obstructive pulmonary disease, unspecified; I11.0 Hypertensive heart disease with heart failure; I50.30 Unspecified diastolic (congestive) heart failure; Z87.891 Personal history of nicotine dependence
CPT/HCPCS: 71045; 74177; 80053; 81003; 83690; 85025; 96361; 96374; 96375; 96376; 99283; 99291; J1200; J1720; J2270; J2405; J7030; Q9967

== ENCOUNTER 2021-01-20 10:18 | Inpatient (IN) | payer MEDICARE, MEDICAID, SELFPAY ==
[2021-01-20 10:20] VITALS: BP 116/63; PULSE 74; RESP 18; TEMP 37.1; O2SAT 95; BMI 45.1
--- NOTE | 2021-01-20 11:01 | W.ED.PSYCHS ---
Documented by User: LILLIAN Brown 01/21/21 07:34 HPI - Psych General: Chief Complaint: Psychiatric Symptoms Stated Complaint: AUDITORY AND VISUAL HALLUCINATIONS Time Seen by Provider: 01/20/21 10:46 History of Present Illness: HPI Narrative: Patient is a 55-year-old female comes to the ED with hallucinations. Patient says she has been having hallucinations for the past week. She has been seeing shadows and also feeling people touch her that are not there. She also states to hearing voices but is unable to tell or determine what they are saying. She denies any SI or HI or any thoughts of self-harm. Associated symptoms: Reports auditory hallucinations and visual hallucinations; Deny homicidal ideation or suicidal ideation Review of Systems Const: Denies: fever(s), chills or fatigue Eyes: Denies: change in vision or eye discomfort ENMT: Denies: throat pain, odynophagia, nasal discharge or nasal congestion Card: Denies: chest pain, palpitations, edema, swelling of feet/ankles, dyspnea on exertion or orthopnea Resp: Denies: dyspnea, productive cough or non-productive cough GI: Denies: abdominal pain, nausea, vomiting, diarrhea, constipation or hematochezia : Denies: flank pain, dysuria or hematuria Musc: Denies: neck pain, back pain or extremity swelling Skin/Breast: Denies: rash or new lesions Neuro: Denies: headache(s), numbness in extremities or weakness in extremities Psych: Reports: visual hallucinations, auditory hallucinations and tactile hallucinations; Denies: suicidal ideation or homicidal ideation [facility] ED PFSH: Medical History Asthma Atypical chest pain Cervical radiculopathy Chest pain 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 COPD (chronic obstructive pulmonary disease) Diastolic CHF Diastolic heart failure Emphysema, unspecified Essential (primary) hypertension GERD (gastroesophageal reflux disease) Hypothyroidism (acquired) Learning disability Lower extremity edema Moderate aortic regurgitation Pain of hand Seizure disorder SVT (supraventricular tachycardia) Systolic murmur Thyroid function study abnormality Venous stasis Surgical History H/O esophagogastroduodenoscopy 03/19/2019: Normal H/O thyroidectomy History of carpal tunnel surgery History of colonoscopy 03/19/2019: Normal repeat in 10 years Hx of section Family History Unknown No problems noted. Social History Quit status (tobacco): has quit using tobacco Year quit tobacco: 2019 - 1-5 ciggs/day Alcohol intake: never Lives independently: Yes Household members: none Housing: Apartment Current occupational status: disabled History of recent travel: No Current gender identity: Female Physical Exam Const: COMMON NORMALS: no acute distress, patient oriented x3 and alert GENERAL APPEARANCE: cooperative and comfortable HENMT: COMMON NORMALS: normocephalic HEAD & SCALP: normocephalic MOUTH: Normal oral and palatal mucosa present THROAT: posterior oropharynx normal and uvula midline Neck/C-Spine: COMMON NORMALS: supple GENERAL: Yes normal visual inspection Resp: COMMON NORMALS: normal respiratory effort, No retractions, No use of accessory muscles and clear to auscultation bilaterally AUSCULTATION: clear to auscultation bilaterally Cardio: COMMON NORMALS: regular rate, regular rhythm, S1 normal heart sound present, S2 normal heart sound present, No gallops present (Cardio), No clicks present (Cardio), No murmurs present (Cardio) and Peripheral pulses 2+ throughout RATE: regular rate RHYTHM: regular rhythm HEART SOUNDS: S1 normal heart sound present and S2 normal heart sound present PERIPHERAL PULSES: Peripheral pulses 2+ throughout GI: COMMON NORMALS: Normal to inspection, nondistended, normoactive bowel sounds present, Soft to palpation, non-tender and no masses PALPATION: Yes Soft to palpation : COMMON NORMALS: Yes no CVA tenderness BLADDER/KIDNEY EXAM: Yes no CVA tenderness Back/Pelvis: COMMON NORMALS: no CVA tenderness Extremity: COMMON NORMALS: normal to inspection Neuro: COMMON NORMALS: patient oriented x3 and moves all extremities SENSORIUM/ORIENTATION: Yes alert Psych: COMMON NORMALS: speech normal ATTITUDE: Yes calm ACTIVITY/MOTOR BEHAVIOR: Yes appropriate eye contact SPEECH: Yes normal speech THOUGHT CONTENT: No Suicidality present, No Homicidality present and Yes Hallucination(s) present auditory (Hears voices), visual (See shadows) and tactile (Feels people touching her) Skin: GENERAL SKIN EXAM: dry skin Course Consultations: Consultation #1: I contacted Dr. Bryan and told about patient case. He accepted admission of patient into the NPU. Time: 11:14 Vital Signs: Vital signs: Vital Signs Temperature 98.0 F 01/21/21 06:34 Pulse Rate 63 01/21/21 06:34 Respiratory Rate 16 01/21/21 06:34 Blood Pressure 103/28 01/21/21 06:34 Pulse Oximetry 98 01/21/21 06:34 MDM - Psych MDM Narrative: Medical decision making narrative: Patient is a 55-year-old female comes to the ED with hallucinations. Patient says for the last week she is hearing voices, seeing shadows of people and feels people touching her but no one is around. Denies any other complaints. Vitals stable. Psych screening labs performed and patient is cleared medically to go to psych unit. I contacted Dr. Bryan and told outpatient case he agreed to have patient admitted into the NPU for further evaluation. Lab Data: Attestation: I reviewed the patient's lab results. Labs: Lab Results 01/20/21 01/20/21 01/20/21 11:13 11:13 11:28 WBC 6.3 10^3/uL 10^3/ uL (4.0-10.0) RBC 4.40 10^6/uL 10^6 /uL (4.1-5.3) Hgb 11.1 g/dL L g/dL (11.5-15.3) Hct 37.0 % % (37.0-47.0) MCV 84.1 fl fl (81-99) MCH 25.2 pg L pg (28.0-34.0) MCHC 30.0 g/dL g/dL (30.0-36.0) RDW 15.9 % H % (12.1-15.1) Plt Count 333 10^3/cmm 10^3 /cmm (130-400) MPV 9.9 fL fL (7.4-10.4) Neut % (Auto) 56.6 % % Lymph % (Auto) 27.2 % % [place] % (Auto) 10.1 % % Eos % (Auto) 4.7 % % Baso % (Auto) 1.1 % % Neut # (Auto) 3.58 10^3/uL 10^3 /uL (1.8-7.7) Lymph # (Auto) 1.7 10^3/uL 10^3/ uL (0.8-4.8) [place] # (Auto) 0.6 10^3/uL 10^3/ uL (0.2-0.9) Eos # (Auto) 0.3 10^3/uL 10^3/ uL (0.0-0.8) Baso # (Auto) 0.1 10^3/uL 10^3/ uL (0.0-0.1) Nucleated RBC % (a uto) 0 % % Nucleated RBCs # 0.0 /100WBC /100W BC Sodium Potassium Chloride Carbon Dioxide Anion Gap BUN Creatinine GFR Calculation Glucose Calculated Osmolal ity Calcium Total Bilirubin AST ALT Alkaline Phosphata se Total Protein Albumin Globulin Urine Color Straw (Yellow) Urine Appearance Clear (CLEAR) Urine pH 8 H (5-7) Ur Specific Gravit y 1.005 (1.005-1.030) Urine Protein Neg (Negative) Urine Glucose (UA) Norm (Normal) Urine Ketones Negative (Negative) Urine Blood Neg (Negative) Urine Nitrate Negative (Negative) Urine Bilirubin Neg (Negative) Prot Sulfosalicyli c Acd Negative (Negative) Urine Urobilinogen Norm mg/dL mg/dL (Negative) Ur Leukocyte Jacqui ase Negative (Negative) Salicylates Urine Opiates Scre en Negative ng/mL ng /mL (Negative) Acetaminophen Ur Barbiturates Sc reen Negative ng/mL ng /mL (Negative) Ur Phencyclidine S crn Negative ng/mL ng /mL (Negative) Ur Amphetamines Sc reen Negative ng/mL ng /mL (Negative) U Benzodiazepines Scrn Negative ng/mL ng /mL (Negative) Urine Cocaine Scre en Negative ng/mL ng /mL (Negative) U Marijuana (THC) Screen Negative ng/mL ng /mL (Negative) Ethyl Alcohol 01/20/21 11:28 WBC RBC Hgb Hct MCV MCH MCHC RDW Plt Count MPV Neut % (Auto) Lymph % (Auto) [place] % (Auto) Eos % (Auto) Baso % (Auto) Neut # (Auto) Lymph # (Auto) [place] # (Auto) Eos # (Auto) Baso # (Auto) Nucleated RBC % (a uto) Nucleated RBCs # Sodium 142 mmol/L mmol/L (136-145) Potassium 4.6 mmol/L mmol/L (3.5-5.1) Chloride 98 mmol/L mmol/L (98-107) Carbon Dioxide 29 mmol/L mmol/L (22-29) Anion Gap 19.6 H (5-19) BUN 11 mg/dL mg/dL (6-20) Creatinine 0.8 mg/dL mg/dL (0.5-0.9) GFR Calculation 74.2 mL/min L mL/ min (90-130) Glucose 125 mg/dL H mg/dL (65-115) Calculated Osmolal ity 295 mOsm/kg mOsm/ kg (285-295) Calcium 8.3 mg/dL L mg/dL (8.5-10.5) Total Bilirubin 1.2 mg/dL mg/dL (0.15-1.2) AST 13 U/L U/L (0-32) ALT 10 U/L U/L (0-33) Alkaline Phosphata se 101 IU/L IU/L (35-105) Total Protein 6.7 g/dL g/dL (6.6-8.7) Albumin 4.2 g/dL g/dL (3.5-5.2) Globulin 2.5 g/dL g/dL (1.3-4.6) Urine Color Urine Appearance Urine pH Ur Specific Gravit y Urine Protein Urine Glucose (UA) Urine Ketones Urine Blood Urine Nitrate Urine Bilirubin Prot Sulfosalicyli c Acd Urine Urobilinogen Ur Leukocyte Jacqui ase Salicylates < 0.3 mg/dL L mg/ dL (3-10) Urine Opiates Scre en Acetaminophen < 5.0 ug/mL L ug/ mL (10-30) Ur Barbiturates Sc reen Ur Phencyclidine S crn Ur Amphetamines Sc reen U Benzodiazepines Scrn Urine Cocaine Scre en U Marijuana (THC) Screen Ethyl Alcohol < 10 mg/dL mg/dL (0-10) Discharge Plan Discharge Patient Disposition: Admitted As Inpatient Admit Provider: Mati Bryan Condition: Stable Coding Level of Care Code 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 Documented by User: Joshua Hale DO 01/21/21 07:43 HPI - Psych General: Chief Complaint: Psychiatric Symptoms Stated Complaint: AUDITORY AND VISUAL HALLUCINATIONS Time Seen by Provider: 01/20/21 10:46 PFSH ED PFSH: Medical History Asthma Atypical chest pain Cervical radiculopathy Chest pain 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 COPD (chronic obstructive pulmonary disease) Diastolic CHF Diastolic heart failure Emphysema, unspecified Essential (primary) hypertension GERD (gastroesophageal reflux disease) Hypothyroidism (acquired) Learning disability Lower extremity edema Moderate aortic regurgitation Pain of hand Seizure disorder SVT (supraventricular tachycardia) Systolic murmur Thyroid function study abnormality Venous stasis Surgical History H/O esophagogastroduodenoscopy 03/19/2019: Normal H/O thyroidectomy History of carpal tunnel surgery History of colonoscopy 03/19/2019: Normal repeat in 10 years Hx of section Family History Unknown No problems noted. Social History Quit status (tobacco): has quit using tobacco Year quit tobacco: 2019 - 1-5 ciggs/day Alcohol intake: never Lives independently: Yes Household members: none Housing: Apartment Current occupational status: disabled History of recent travel: No Current gender identity: Female Course Vital Signs: Vital signs: Vital Signs Temperature 98.0 F 01/21/21 06:34 Pulse Rate 63 01/21/21 06:34 Respiratory Rate 16 01/21/21 06:34 Blood Pressure 103/28 01/21/21 06:34 Pulse Oximetry 98 01/21/21 06:34 MDM - Psych MDM Narrative: Medical decision making narrative: Patient has been having hallucinations -auditory and visual. Is even having some sensory hallucinations. Initially seen by Alex Vieira have discussed with Dr. Bryan will admit. Lab Data: Labs: Lab Results 01/20/21 01/20/21 01/20/21 11:13 11:13 11:28 WBC 6.3 10^3/uL 10^3/ uL (4.0-10.0) RBC 4.40 10^6/uL 10^6 /uL (4.1-5.3) Hgb 11.1 g/dL L g/dL (11.5-15.3) Hct 37.0 % % (37.0-47.0) MCV 84.1 fl fl (81-99) MCH 25.2 pg L pg (28.0-34.0) MCHC 30.0 g/dL g/dL (30.0-36.0) RDW 15.9 % H % (12.1-15.1) Plt Count 333 10^3/cmm 10^3 /cmm (130-400) MPV 9.9 fL fL (7.4-10.4) Neut % (Auto) 56.6 % % Lymph % (Auto) 27.2 % % [place] % (Auto) 10.1 % % Eos % (Auto) 4.7 % % Baso % (Auto) 1.1 % % Neut # (Auto) 3.58 10^3/uL 10^3 /uL (1.8-7.7) Lymph # (Auto) 1.7 10^3/uL 10^3/ uL (0.8-4.8) [place] # (Auto) 0.6 10^3/uL 10^3/ uL (0.2-0.9) Eos # (Auto) 0.3 10^3/uL 10^3/ uL (0.0-0.8) Baso # (Auto) 0.1 10^3/uL 10^3/ uL (0.0-0.1) Nucleated RBC % (a uto) 0 % % Nucleated RBCs # 0.0 /100WBC /100W BC Sodium Potassium Chloride Carbon Dioxide Anion Gap BUN Creatinine GFR Calculation Glucose Calculated Osmolal ity Calcium Total Bilirubin AST ALT Alkaline Phosphata se Total Protein Albumin Globulin Urine Color Straw (Yellow) Urine Appearance Clear (CLEAR) Urine pH 8 H (5-7) Ur Specific Gravit y 1.005 (1.005-1.030) Urine Protein Neg (Negative) Urine Glucose (UA) Norm (Normal) Urine Ketones Negative (Negative) Urine Blood Neg (Negative) Urine Nitrate Negative (Negative) Urine Bilirubin Neg (Negative) Prot Sulfosalicyli c Acd Negative (Negative) Urine Urobilinogen Norm mg/dL mg/dL (Negative) Ur Leukocyte Jacqui ase Negative (Negative) Salicylates Urine Opiates Scre en Negative ng/mL ng /mL (Negative) Acetaminophen Ur Barbiturates Sc reen Negative ng/mL ng /mL (Negative) Ur Phencyclidine S crn Negative ng/mL ng /mL (Negative) Ur Amphetamines Sc reen Negative ng/mL ng /mL (Negative) U Benzodiazepines Scrn Negative ng/mL ng /mL (Negative) Urine Cocaine Scre en Negative ng/mL ng /mL (Negative) U Marijuana (THC) Screen Negative ng/mL ng /mL (Negative) Ethyl Alcohol 01/20/21 11:28 WBC RBC Hgb Hct MCV MCH MCHC RDW Plt Count MPV Neut % (Auto) Lymph % (Auto) [place] % (Auto) Eos % (Auto) Baso % (Auto) Neut # (Auto) Lymph # (Auto) [place] # (Auto) Eos # (Auto) Baso # (Auto) Nucleated RBC % (a uto) Nucleated RBCs # Sodium 142 mmol/L mmol/L (136-145) Potassium 4.6 mmol/L mmol/L (3.5-5.1) Chloride 98 mmol/L mmol/L (98-107) Carbon Dioxide 29 mmol/L mmol/L (22-29) Anion Gap 19.6 H (5-19) BUN 11 mg/dL mg/dL (6-20) Creatinine 0.8 mg/dL mg/dL (0.5-0.9) GFR Calculation 74.2 mL/min L mL/ min (90-130) Glucose 125 mg/dL H mg/dL (65-115) Calculated Osmolal ity 295 mOsm/kg mOsm/ kg (285-295) Calcium 8.3 mg/dL L mg/dL (8.5-10.5) Total Bilirubin 1.2 mg/dL mg/dL (0.15-1.2) AST 13 U/L U/L (0-32) ALT 10 U/L U/L (0-33) Alkaline Phosphata se 101 IU/L IU/L (35-105) Total Protein 6.7 g/dL g/dL (6.6-8.7) Albumin 4.2 g/dL g/dL (3.5-5.2) Globulin 2.5 g/dL g/dL (1.3-4.6) Urine Color Urine Appearance Urine pH Ur Specific Gravit y Urine Protein Urine Glucose (UA) Urine Ketones Urine Blood Urine Nitrate Urine Bilirubin Prot Sulfosalicyli c Acd Urine Urobilinogen Ur Leukocyte Jacqui ase Salicylates < 0.3 mg/dL L mg/ dL (3-10) Urine Opiates Scre en Acetaminophen < 5.0 ug/mL L ug/ mL (10-30) Ur Barbiturates Sc reen Ur Phencyclidine S crn Ur Amphetamines Sc reen U Benzodiazepines Scrn Urine Cocaine Scre en U Marijuana (THC) Screen Ethyl Alcohol < 10 mg/dL mg/dL (0-10) Discharge Plan Discharge Patient Disposition: Admitted As Inpatient Admit Provider: Mati Bryan Condition: Stable Coding Level of Care Code 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
--- NOTE | 2021-01-20 11:16 | PC.PHAR ---
pt unable to verify due to AMS. verified with PCP [facility] and [facility]
[2021-01-20 11:36] LABS: Basophils # 0.1 10^3/uL (0.0-0.1); Basophils % 1.1 %; Eosinophils # 0.3 10^3/uL (0.0-0.8); Eosinophils % 4.7 %; Hemoglobin 11.1 g/dL (11.5-15.3); Lymphocytes # 1.7 10^3/uL (0.8-4.8); Lymphocytes % 27.2 %; Mean Corpuscular Hemoglobin 25.2 pg (28.0-34.0); Mean Corpuscular Volume 84.1 fl (81-99); Mean Platelet Volume 9.9 fL (7.4-10.4); Monocytes # 0.6 10^3/uL (0.2-0.9); Monocytes % 10.1 %; Neutrophils # 3.58 10^3/uL (1.8-7.7); Neutrophils % 56.6 %; Nucleated Red Blood Cells % 0 %; Platelet Count 333 10^3/cmm (130-400); Red Cell Distribution Width 15.9 % (12.1-15.1); White Blood Count 6.3 10^3/uL (4.0-10.0)
[2021-01-20 11:39] LABS: Add Urine Microscopic? NO; Charge for UA Resulting for Rev
[2021-01-20 11:52] LABS: Alanine Aminotransferase 10 U/L (0-33); Albumin Level 4.2 g/dL (3.5-5.2); Alkaline Phosphatase 101 IU/L (35-105); Anion Gap 19.6 (5-19); Aspartate Amino Transferase 13 U/L (0-32); Blood Urea Nitrogen 11 mg/dL (6-20); Calcium 8.3 mg/dL (8.5-10.5); Carbon Dioxide 29 mmol/L (22-29); Chloride 98 mmol/L (98-107); Globulin 2.5 g/dL (1.3-4.6); Glomerular Filtration Rate 74.2 mL/min (90-130); Glucose 125 mg/dL (65-115); Osmolality Calculated 295 mOsm/kg (285-295); Potassium 4.6 mmol/L (3.5-5.1); Sodium 142 mmol/L (136-145); Total Bilirubin 1.2 mg/dL (0.15-1.2); Total Protein 6.7 g/dL (6.6-8.7)
[2021-01-20 12:02] LABS: Amphetamines Screen Urine Negative (Negative); Barbiturates Screen Urine Negative (Negative); Benzodiazepines Screen Urine Negative (Negative); Cocaine Screen Urine Negative (Negative); Opiate Screen Urine Negative (Negative); PCP Screen Urine Negative (Negative); THC Screen Urine Negative (Negative)
[2021-01-20 12:03] LABS: Acetaminophen < 5.0 ug/mL (10-30); Alcohol Level < 10 mg/dL (0-10); Salicylate < 0.3 mg/dL (3-10)
[2021-01-20 12:06] LABS: Bilirubin Urine Neg (Negative); Blood Urine Neg (Negative); Glucose Urine UA Norm (Normal); Ketones Urine Negative (Negative); Leukocyte Esterase Urine Negative (Negative); Nitrate Urine Negative (Negative); Protein Urine Neg (Negative); Specific Gravity, Urine 1.005 (1.005-1.030); Sulfosalicylic Acid Urine Negative (Negative); Urine Appearance Clear (CLEAR); Urine Color Straw (Yellow); Urobilinogen Urine Norm (Negative); pH Urine 8 (5-7)
--- NOTE | 2021-01-20 12:47 | PC.NURSE ---
Attempted to call report. Cindi stated that Kareem would call back for report.
[2021-01-20] MEDS: sucralfate 1 gm Tablet PO (20:22)
[2021-01-20] MEDS: atorvastatin 40 mg Tablet 20 MG PO (20:22)
[2021-01-20 22:00] VITALS: BP 116/63; PULSE 74; RESP 18; TEMP 37.1; O2SAT 98
--- NOTE | 2021-01-20 23:12 | PHA.FALL ---
A Pharmacy Consult Was Conducted For Crystal Pierre Due To: Frederick Fall Scale Risk Level: High Fall Risk On 01/20/21 20:00 And A Medication Fall Risk Score Greater Than 10. The Recommendations Are As Follows: 1. Cymbalta: LA: 1,4,7 2. Haloperidol LA: 1,3,4,5,7,8,10 3. Lorazepam LA: 1,3,4,5,6,8,10 4. Metoprolol LA: 1,2,3,4,5,9,10 5. Spironolactone LA: 1,2,5,8 6. Trazodone LA: 1,2,3,4,7,8,10 Medications which cause/contribute to: 1 = sedation/fatigue/lethargy 2 = decreased alertness 3 = postural/orthostatic hypotension 4 = dizziness 5 = decreased neuromuscular function/ataxia 6 = decreased memory/cognitive impairment 7 = blurred vision 8 = confusion 9 = arrhythmias 10 = syncope 11 = anemia
[2021-01-21] MEDS: acetaminophen 325 mg Tablet 650 MG PO ×2 (02:08→20:41)
--- NOTE | 2021-01-21 02:14 | PC.NURSE ---
Patient woke up complaining of a headache, medicated with PRN Tylenol
[2021-01-21 06:00] VITALS: BP 116/63; PULSE 74; RESP 18; TEMP 37.1; O2SAT 98
[2021-01-21 06:34] VITALS: BP 103/28; PULSE 63; RESP 16; TEMP 36.7; O2SAT 98
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
[2021-01-21] MEDS: duloxetine 30 mg Capsule PO (08:51)
[2021-01-21] MEDS: levothyroxine 150 mcg Tablet PO (08:51)
[2021-01-21] MEDS: pantoprazole DR 40 mg Tablet PO (08:51)
[2021-01-21] MEDS: bumetanide 1 mg Tablet 2 MG PO (08:51)
[2021-01-21] MEDS: spironolactone 25 mg Tablet PO (08:51)
[2021-01-21] MEDS: metoprolol succinate ER (24 HR) 50 mg Tablet PO ×2 (08:51→17:16)
[2021-01-21] MEDS: cetirizine 10 mg Tablet PO (08:51)
[2021-01-21] MEDS: aspirin 81 mg EC Tablet PO (08:51)
[2021-01-21] MEDS: montelukast sodium 10 mg Tablet PO (08:51)
[2021-01-21] MEDS: potassium chloride ER 20 mEq Tablet PO (08:51)
[2021-01-21] MEDS: levETIRAcetam 500 mg Tablet 250 MG PO ×2 (08:52→17:16)
[2021-01-21] MEDS: sucralfate 1 gm Tablet PO ×3 (08:52→20:41)
[2021-01-21 10:07] VITALS: PULSE 73; O2SAT 94
[2021-01-21 13:31] VITALS: BP 155/89; PULSE 83; RESP 17; TEMP 37.1; O2SAT 98
[2021-01-21 20:25] VITALS: BP 120/73; PULSE 75; RESP 16; O2SAT 93
[2021-01-21] MEDS: atorvastatin 40 mg Tablet 20 MG PO (20:42)
[2021-01-21] MEDS: trazodone 50 mg Tablet PO (20:42)
[2021-01-21] MEDS: hyDROXYzine 25 mg Capsule 50 MG PO (20:42)
[2021-01-22 06:00] VITALS: PULSE 73; RESP 18; O2SAT 98
[2021-01-22 08:04] VITALS: PULSE 62; RESP 18; O2SAT 94
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
[2021-01-22 09:32] VITALS: PULSE 62; RESP 18; O2SAT 94
[2021-01-22] MEDS: montelukast sodium 10 mg Tablet PO (09:54)
[2021-01-22] MEDS: levETIRAcetam 500 mg Tablet 250 MG PO (09:54)
[2021-01-22] MEDS: spironolactone 25 mg Tablet PO (09:54)
[2021-01-22] MEDS: duloxetine 30 mg Capsule 60 MG PO (09:54)
[2021-01-22] MEDS: levothyroxine 150 mcg Tablet PO (09:54)
[2021-01-22] MEDS: potassium chloride ER 20 mEq Tablet PO (09:54)
[2021-01-22] MEDS: cetirizine 10 mg Tablet PO (09:54)
[2021-01-22] MEDS: metoprolol succinate ER (24 HR) 50 mg Tablet PO (09:54)
[2021-01-22] MEDS: pantoprazole DR 40 mg Tablet PO (09:54)
[2021-01-22] MEDS: aspirin 81 mg EC Tablet PO (09:54)
[2021-01-22] MEDS: acetaminophen 325 mg Tablet 650 MG PO (09:55)
[2021-01-22] MEDS: sucralfate 1 gm Tablet PO (09:55)
[2021-01-22] MEDS: bumetanide 1 mg Tablet 2 MG PO (09:55)
== END 2021-01-22 10:51 | disposition home health service (06) | DRG 882 ==
LOC: ER 10:46 → NP 13:25
PROVIDERS: Admitting Provider Psychiatry & Neurology Psychiatry; Emergency Provider Physician Assistant; PCP Nurse Practitioner Family; Visit Provider Psychiatry & Neurology Psychiatry
DX: F43.10 Post-traumatic stress disorder, unspecified (principal); R44.0 Auditory hallucinations; R44.1 Visual hallucinations; G47.9 Sleep disorder, unspecified; E89.0 Postprocedural hypothyroidism; F81.9 Developmental disorder of scholastic skills, unspecified; K21.9 Gastro-esophageal reflux disease without esophagitis; G40.909 Epilepsy, unspecified, not intractable, without status epilepticus; I10 Essential (primary) hypertension; Z79.82 Long term (current) use of aspirin; Z87.891 Personal history of nicotine dependence
CPT/HCPCS: 36415; 80053; 80306; 80307; 81003; 85025; 97165; 99285; J3490

== ENCOUNTER 2021-02-25 10:18 | Outpatient (CLI) | payer MEDICARE, MEDICAID, SELFPAY ==
[2021-02-25 10:58] LABS: Hematocrit 38.3 % (37.0-47.0); Hemoglobin 11.6 g/dL (11.5-15.3); Mean Corpuscular HGB Conc 30.3 g/dL (30.0-36.0); Mean Corpuscular Hemoglobin 25.2 pg (28.0-34.0); Mean Corpuscular Volume 83.3 fl (81-99); Mean Platelet Volume 10.1 fL (7.4-10.4); Platelet Count 360 10^3/cmm (130-400); Red Cell Distribution Width 15.2 % (12.1-15.1); White Blood Count 7.9 10^3/uL (4.0-10.0)
[2021-02-25 11:22] LABS: Absolute Eosinophils 0.5 10^3/cmm (0.0-0.7); Band Neutrophils Absolute 0.1 10^3/cmm (0.0-1.2); Eosinophils 7 %; Lymphocytes 32 %; Lymphocytes Absolute 2.6 10^3/cmm (1.2-3.4); Monocytes Absolute 0.7 10^3/cmm (0.1-0.6); Platelet Estimate Normal (Normal); Segmented Neutrophils 50 %; Total Cells Counted 100 (0-100)
[2021-02-25 11:24] LABS: Alanine Aminotransferase 10 U/L (0-33); Albumin Level 4.1 g/dL (3.5-5.2); Alkaline Phosphatase 101 IU/L (35-105); Anion Gap 18.1 (5-19); Aspartate Amino Transferase 15 U/L (0-32); Blood Urea Nitrogen 14 mg/dL (6-20); Calcium 8.2 mg/dL (8.5-10.5); Carbon Dioxide 24 mmol/L (22-29); Chloride 101 mmol/L (98-107); Globulin 2.9 g/dL (1.3-4.6); Glomerular Filtration Rate 86.6 mL/min (90-130); Glucose 104 mg/dL (65-115); Lipase 25 U/L (13-60); Osmolality Calculated 289 mOsm/kg (285-295); Potassium 4.1 mmol/L (3.5-5.1); Sodium 139 mmol/L (136-145); Total Bilirubin 1.1 mg/dL (0.15-1.2)
== END 2021-02-25 10:19 | disposition home or self-care (01) ==
LOC: LAB 10:23
PROVIDERS: PCP Nurse Practitioner Family; Visit Provider Nurse Practitioner Family
DX: R10.11 Right upper quadrant pain (principal); R11.11 Vomiting without nausea
CPT/HCPCS: 36415; 80053; 83690; 85007; 85027

== ENCOUNTER 2021-04-05 10:25 | Emergency (ER) | payer MEDICARE, MEDICAID, SELFPAY ==
[2021-04-05 10:39] VITALS: BP 137/76; PULSE 74; RESP 19; TEMP 36.5; O2SAT 95
[2021-04-05 10:40] VITALS: BMI 43.4
[2021-04-05 10:44] VITALS: BP 142/90; PULSE 75
--- NOTE | 2021-04-05 11:12 | XRR_ITS ---
PROCEDURE INFORMATION: Exam: XR Cervical Spine Exam date and time: 04/05/2021 11:12 AM Age: 55 years old Clinical indication: Injury or trauma; Fall; Blunt trauma; Injury date: 04/04/21; Injury details: Fell yesterday chronic neck pain, . PT unable to raise chin or straigten neck any better for xrays; Prior surgery; Surgery type: Thyroid TECHNIQUE: Imaging protocol: XR of the cervical spine. Views: 2 or 3 views. COMPARISON: MR cervical spin wo con* [id number] 06/15/2020 10:05 AM FINDINGS: Bones/joints: Normal. No acute fracture. Normal alignment. Soft tissues: Unremarkable. XR/XR cervical spine 3V* [id number] IMPRESSION: No acute findings.
--- NOTE | 2021-04-05 11:12 | CT_ITS ---
WS: [id number] CT HEAD TECHNIQUE: Noncontrast CT of the head obtained from the skullbase to the vertex. CLINICAL INFORMATION: fall/closed head inj COMPARISON: CT February 14, 2020 DLP: 928.[address] scans at [facility] use at least one of these dose optimization techniques: automated e xposure control; mA and/or kV adjustment per patient size (includes targeted exams where dose is matc hed to clinical indication); or iterative reconstruction. FINDINGS: No evidence of intracranial hemorrhage or mass effect. Ventricular system and basal cisterns are hannon nt. Minimal small vessel changes with mild parenchymal volume loss. No extra-axial fluid collections. No evidence of mass or mass effect. Normal desai-white differentiation. Paranasal sinuses and mastoid air cells are well aerated. .Normal visualized soft tissues. Labyrinthi tis ossificans RIGHT inner ear structures unchanged. CT/CT head wo con* [id number] IMPRESSION: 1. No evidence of intracranial hemorrhage or mass effect. 2. Minimal small vessel changes. Mild parenchymal volume loss. 3. No acute intracranial findings.
--- NOTE | 2021-04-05 11:13 | ECG_ITS ---
[facility] Test Date: 2021-04-05 Pat Name: Crystal Pierre Department: Room: Gender: Female Drilling Manager: : 1965 Requested By: Joshua Garcia Order Number: [id number] Clemencia MD: Funmilayo De La Rosa M.D. Measurements Intervals [place] Rate: 77 P: 63 [place]: 142 QRS: 32 QRSD: 103 T: 42 QT: 405 QTc: 459 Interpretive Statements SINUS RHYTHM POSSIBLE RIGHT VENTRICULAR CONDUCTION DELAY [RSR (QR) IN V1/V2] Compared to ECG 12/02/2020 16:22:51 No significant changes Electronically Signed On 04-05-2021 17:05:30 TOY DESIGNER by Funmilayo De La Rosa M.D. [email or web address] [email or web address] memorial [email or web address].Tus reQRdos/store/OM/[id number]
--- NOTE | 2021-04-05 11:43 | ED_ITS ---
HPI - Fall General: Chief Complaint: Fall Stated Complaint: FALL, DIZZY Time Seen by Provider: 04/05/21 10:34 Source: patient Mode of arrival: EMS History of Present Illness: 55-year-old female presents emergency room with complaints of having fallen. She has an abrasion on the right side of her forehead there is no loss conscious cannot really tell me why she fell she has fallen multiple times in the past. She denies any dysuria urgency or frequency denies any shortness of breath chest pain or abdominal pain. Referred here by her primary care doc because of persistent dizziness lightheadedness MD complaint: fall Onset (ago): day(s) Fall from: standing Fall witnessed: no Place fall occurred: home Loss of consciousness: None Prolonged down time: no Symptoms prior to fall: lightheadedness and dizziness Associated symptoms-after fall: Denies abdominal pain or chest pain Review of Systems Const: Denies: fever(s), chills, body aches, change in appetite, fatigue or malaise ENMT: Denies: throat pain, ear or mastoid pain, nasal discharge or nasal congestion Card: Denies: chest pain, edema, dyspnea on exertion or orthopnea Resp: Denies: dyspnea, productive cough or non-productive cough GI: Denies: abdominal pain, nausea, vomiting, hematemesis, coffee ground emesis, diarrhea, constipation, bloating, hematochezia or melena : Denies: flank pain, difficulty voiding, dysuria, urinary frequency or urinary urgency Skin/Breast: Denies: rash or pruritus [facility] ED PFSH: Medical History Asthma Atypical chest pain Cervical radiculopathy Chest pain 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 COPD (chronic obstructive pulmonary disease) Diastolic CHF Diastolic heart failure Emphysema, unspecified Essential (primary) hypertension GERD (gastroesophageal reflux disease) Hypothyroidism (acquired) Learning disability Lower extremity edema Moderate aortic regurgitation Pain of hand Seizure disorder SVT (supraventricular tachycardia) Systolic murmur Thyroid function study abnormality Venous stasis Surgical History H/O esophagogastroduodenoscopy 03/19/2019: Normal H/O thyroidectomy History of carpal tunnel surgery History of colonoscopy 03/19/2019: Normal repeat in 10 years Hx of section Family History Unknown No problems noted. Social History Quit status (tobacco): has quit using tobacco Year quit tobacco: 2019 - 1-5 ciggs/day Alcohol intake: never Lives independently: Yes Household members: none Housing: Apartment Current occupational status: disabled History of recent travel: No Current gender identity: Female Physical Exam Const: COMMON NORMALS: no acute distress GENERAL APPEARANCE: cooperative and comfortable ORIENTATION/CONSCIOUSNESS: Yes awake HENMT: COMMON NORMALS: normocephalic, atraumatic, hearing grossly normal asif aterally, external ears normal, EAC's normal, TM's normal bilaterally, Normal nasal mucous membranes and turbinates present, moist oral mucous membranes and oropharynx normal HEAD & SCALP: normocephalic and atraumatic NOSE: Normal nasal mucous membranes and turbinates present EXTERNAL EAR: Yes external ears normal EXTERNAL AUDITORY CANAL: EAC's normal TYMPANIC MEMBRANE: TM's normal bilaterally Eye: COMMON NORMALS: Equal, round and reactive pupils present, EOMs intact bilaterally, conjunctivae normal and no scleral icterus CONJUNCTIVA: Yes conjunctivae normal PUPIL: Yes Equal, round and reactive pupils present Neck/C-Spine: COMMON NORMALS: full ROM, no lymphadenopathy, supple and no JVD Resp: COMMON NORMALS: normal respiratory effort, No retractions, No use of accessory muscles and clear to auscultation bilaterally AUSCULTATION: clear to auscultation bilaterally Cardio: COMMON NORMALS: no JVD, regular rate, regular rhythm and No murmurs present (Cardio) RATE: regular rate RHYTHM: regular rhythm GI: COMMON NORMALS: Soft to palpation and No hepatosplenomegaly present AUSCULTATION: Yes normoactive bowel sounds PALPATION: Yes Soft to palpation, No Tenderness to palpation present (GI), No Guarding due to palpation present (GI) and Yes No hepatosplenomegaly present Extremity: COMMON NORMALS: normal to inspection, capillary refill normal, no clubbing, cyanosis or edema, no calf tenderness and no pedal edema Skin: COMMON NORMALS: no rashes or lesions noted GENERAL SKIN EXAM: no rashes or lesions noted Course Vital Signs: Vital signs: Vital Signs Temperature 97.7 F 04/05/21 10:39 Pulse Rate 77 04/05/21 14:00 Respiratory Rate 14 04/05/21 14:00 Blood Pressure 142/90 04/05/21 14:00 Pulse Oximetry 99 04/05/21 14:00 MDM - Fall Medical Decision Making Lab review reviewed with patient no significant abnormality found discharge [facility] home follow-up as needed Medical Records I reviewed the patient's medical records. Lab Data I reviewed the patient's lab results. : 04/05/21 11:50 04/05/21 11:50 Radiology Impressions Cervical Spine X-Ray 04/05/21 11:12 IMPRESSION: No acute findings. Head CT 04/05/21 11:12 IMPRESSION: 1. No evidence of intracranial hemorrhage or mass effect. 2. Minimal small vessel changes. Mild parenchymal volume loss. 3. No acute intracranial findings. Laboratory Results WBC 8.8 10^3/uL (4.0-10.0) 04/05/21 11:50 RBC 4.53 10^6/uL (4.1-5.3) 04/05/21 11:50 Hgb 11.4 g/dL (11.5-15.3) L 04/05/21 11:50 Hct 38.6 % (37.0-47.0) 04/05/21 11:50 MCV 85.2 fl (81-99) 04/05/21 11:50 MCH 25.2 pg (28.0-34.0) L 04/05/21 11:50 MCHC 29.5 g/dL (30.0-36.0) L 04/05/21 11:50 RDW 14.4 % (12.1-15.1) 04/05/21 11:50 Plt Count 327 10^3/cmm (130-400) 04/05/21 11:50 MPV 10.1 fL (7.4-10.4) 04/05/21 11:50 Neut % (Auto) 60.0 % 04/05/21 11:50 Lymph % (Auto) 26.1 % 04/05/21 11:50 [place] % (Auto) 9.0 % 04/05/21 11:50 Eos % (Auto) 3.6 % 04/05/21 11:50 Baso % (Auto) 0.8 % 04/05/21 11:50 Neut # (Auto) 5.28 10^3/uL (1.8-7.7) 04/05/21 11:50 Lymph # (Auto) 2.3 10^3/uL (0.8-4.8) 04/05/21 11:50 [place] # (Auto) 0.8 10^3/uL (0.2-0.9) 04/05/21 11:50 Eos # (Auto) 0.3 10^3/uL (0.0-0.8) 04/05/21 11:50 Baso # (Auto) 0.1 10^3/uL (0.0-0.1) 04/05/21 11:50 Nucleated RBC % (auto) 0 % 04/05/21 11:50 Nucleated RBCs # 0.0 /100WBC 04/05/21 11:50 Sodium 139 mmol/L (136-145) 04/05/21 11:50 Potassium 4.3 mmol/L (3.5-5.1) 04/05/21 11:50 Chloride 97 mmol/L (98-107) L 04/05/21 11:50 Carbon Dioxide 28 mmol/L (22-29) 04/05/21 11:50 Anion Gap 18.3 (5-19) 04/05/21 11:50 BUN 16 mg/dL (6-20) 04/05/21 11:50 Creatinine 1.0 mg/dL (0.5-0.9) H 04/05/21 11:50 GFR Calculation 57.4 mL/min (90-130) L 04/05/21 11:50 Glucose 114 mg/dL (65-115) 04/05/21 11:50 Calculated Osmolality 290 mOsm/kg (285-295) 04/05/21 11:50 Calcium 8.9 mg/dL (8.5-10.5) 04/05/21 11:50 Total Bilirubin 0.7 mg/dL (0.15-1.2) 04/05/21 11:50 AST 19 U/L (0-32) 04/05/21 11:50 ALT 12 U/L (0-33) 04/05/21 11:50 Alkaline Phosphatase 116 IU/L (35-105) H 04/05/21 11:50 Troponin T Baseline Cancelled 04/05/21 11:50 Total Protein 6.7 g/dL (6.6-8.7) 04/05/21 11:50 Albumin 4.3 g/dL (3.5-5.2) 04/05/21 11:50 Globulin 2.4 g/dL (1.3-4.6) 04/05/21 11:50 Discharge Plan Discharge Patient Disposition: Home Clinical Impression: Fall Condition: Stable Prescriptions: No Action montelukast [Singulair] 10 mg tablet 10 mg PO DAILY 0RF levetiracetam 250 mg tablet 250 mg PO BID 0RF aspirin [Adult Aspirin Regimen] 81 mg tablet,delayed release (DR/EC) 81 mg PO DAILY 0RF pantoprazole [Protonix] 40 mg tablet,delayed release (DR/EC) 40 mg PO QAM 0RF atorvastatin 20 mg tablet 20 mg PO BEDTIME 0RF albuterol sulfate [ProAir HFA] 90 mcg/actuation HFA aerosol inhaler 2 puff INHALATION Q4H PRN (Reason: Shortness Of Breath) 0RF budesonide 0.5 mg/2 mL suspension for nebulization 0.5 mg inhalation BID PRN (Reason: Shortness Of Breath Or Wheezing) 0RF cetirizine 10 mg capsule 10 mg PO DAILY 0RF bumetanide 2 mg tablet 2 mg PO DAILY 0RF potassium chloride 20 mEq tablet extended release 20 meq PO DAILY 0RF fluticasone propionate 50 mcg/actuation spray,suspension 1 spray intranasal BID PRN (Reason: Allergy Symptoms) 0RF metoprolol succinate 50 mg Tablet Extended Release 24 Hr 50 mg PO BID 0RF hydroxyzine HCl 10 mg Tablet 10 mg PO TID PRN (Reason: Anxiety) 0RF spironolactone 25 mg tablet 25 mg PO DAILY 0RF sucralfate 1 gram tablet 1 g PO TID 0RF trazodone 50 mg tablet 100 mg PO BEDTIME 0RF Vitamin D2 1,250 mcg (50,000 unit) capsule 50,000 unit PO Q7D 0RF Rx Instructions: on monday duloxetine 60 mg capsule,delayed release(DR/EC) 60 mg PO DAILY 0RF levothyroxine 150 mcg tablet 150 mcg PO QAM 0RF Discharge Orders: Discharge ED (Routine); Ordered 04/05/21 Ordered By: Joshua Hale Referrals: Татьяна Storm FNP [Primary Care Provider] - Patient Instructions: Opioid Safety Activity Restrictions/Additional Instructions: Follow-up with your primary care doctor as needed Coding Level of Care Code ED Art Class Model for Dc Serrato
[2021-04-05 12:03] LABS: Basophils # 0.1 10^3/uL (0.0-0.1); Basophils % 0.8 %; Eosinophils # 0.3 10^3/uL (0.0-0.8); Eosinophils % 3.6 %; Hematocrit 38.6 % (37.0-47.0); Hemoglobin 11.4 g/dL (11.5-15.3); Lymphocytes # 2.3 10^3/uL (0.8-4.8); Lymphocytes % 26.1 %; Mean Corpuscular HGB Conc 29.5 g/dL (30.0-36.0); Mean Corpuscular Hemoglobin 25.2 pg (28.0-34.0); Mean Corpuscular Volume 85.2 fl (81-99); Mean Platelet Volume 10.1 fL (7.4-10.4); Monocytes # 0.8 10^3/uL (0.2-0.9); Neutrophils # 5.28 10^3/uL (1.8-7.7); Nucleated Red Blood Cells % 0 %; Platelet Count 327 10^3/cmm (130-400); Red Blood Count 4.53 10^6/uL (4.1-5.3); Red Cell Distribution Width 14.4 % (12.1-15.1); White Blood Count 8.8 10^3/uL (4.0-10.0)
[2021-04-05 12:33] LABS: Alanine Aminotransferase 12 U/L (0-33); Albumin Level 4.3 g/dL (3.5-5.2); Alkaline Phosphatase 116 IU/L (35-105); Blood Urea Nitrogen 16 mg/dL (6-20); Calcium 8.9 mg/dL (8.5-10.5); Carbon Dioxide 28 mmol/L (22-29); Chloride 97 mmol/L (98-107); Globulin 2.4 g/dL (1.3-4.6); Glomerular Filtration Rate 57.4 mL/min (90-130); Glucose 114 mg/dL (65-115); Osmolality Calculated 290 mOsm/kg (285-295); Sodium 139 mmol/L (136-145); Total Bilirubin 0.7 mg/dL (0.15-1.2); Total Protein 6.7 g/dL (6.6-8.7)
[2021-04-05 12:35] LABS: Anion Gap 18.3 (5-19); Aspartate Amino Transferase 19 U/L (0-32); Potassium 4.3 mmol/L (3.5-5.1)
[2021-04-05 12:44] VITALS: BP 142/90; PULSE 72; RESP 23; O2SAT 100
--- NOTE | 2021-04-05 13:13 | ECG_ITS ---
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 Measurements Intervals [place] Rate: 103 P: 59 ID: [id number] QRS: 10 QRSD: 92 T: 42 QT: 348 QTc: 456 Interpretive Statements SINUS TACHYCARDIA POSSIBLE LEFT ATRIAL ENLARGEMENT [-0.1mV P-WAVE IN V1/V2] SEPTAL MYOCARDIAL INFARCTION , OF INDETERMINATE AGE [40+ ms Q WAVE IN V1/V2] Compared to ECG 04/05/2021 11:23:30 Myocardial infarct finding now present Sinus rhythm no longer present Electronically Signed On 04-05-2021 17:24:29 SPA DIRECTOR/FINANCE by Funmilayo De La Rosa M.D. [id number]
[2021-04-05 14:00] VITALS: BP 142/90; PULSE 77; RESP 14; O2SAT 99
--- NOTE | 2021-04-05 15:05 | PC.NURSE ---
SET UP RIDE WITH MEDICAID THEN PATIENT INSIST THAT SHE DOESNT WANT TO WAIT AND TO CALL [employer]
== END 2021-04-05 15:05 | disposition home or self-care (01) ==
PROVIDERS: Emergency Provider Family Medicine; PCP Nurse Practitioner Family
DX: S00.81XA Abrasion of other part of head, initial encounter (principal); W19.XXXA Unspecified fall, initial encounter; J44.9 Chronic obstructive pulmonary disease, unspecified; Z87.891 Personal history of nicotine dependence; I11.0 Hypertensive heart disease with heart failure; I50.9 Heart failure, unspecified; Z79.82 Long term (current) use of aspirin
CPT/HCPCS: 70450; 72040; 80053; 85025; 93005; 99283

== ENCOUNTER 2021-04-22 09:47 | Outpatient (CLI) | payer MEDICARE, MEDICAID, SELFPAY ==
--- NOTE | 2021-04-22 10:03 | MM_ITS ---
WS: [id number] BILATERAL 3D TOMOSYNTHESIS DIGITAL SCREENING MAMMOGRAPHY WITH CAD CLINICAL INFORMATION: SCREENING HISTORY: Screening mammogram. No current complaints. COMPARISON: November 15, 2019 TECHNIQUE: Bilateral CC and MLO views. FINDINGS: Scattered fibroglandular densities bilaterally. Incidental punctate calcifications. Lucent centered c alcification RIGHT breast. No suspicious focal mass, asymmetry, calcifications, or architectural dist ortion. No evidence of malignancy. MM/[place] [id number] IMPRESSION: BI-RADS: 2-Benign FOLLOW UP: 1 Year Follow-up Recommend return to annual screening mammography.
== END 2021-04-22 09:48 | disposition home or self-care (01) ==
LOC: RADSHAW 09:53
PROVIDERS: PCP Nurse Practitioner Family; Visit Provider Nurse Practitioner Family
DX: Z12.31 Encounter for screening mammogram for malignant neoplasm of breast (principal)
CPT/HCPCS: 77063; 77067

== ENCOUNTER → 2021-05-31 09:49 | Outpatient (BNVA) | payer MEDICARE, MEDICAID, SELFPAY | PROVIDERS: PCP Nurse Practitioner Family; Referring Provider Nurse Practitioner Family; Visit Provider Specialist | DX: G56.20 Lesion of ulnar nerve, unspecified upper limb (principal); G56.22 Lesion of ulnar nerve, left upper limb; Z87.891 Personal history of nicotine dependence | CPT/HCPCS: 73080; 99213; 99214 ==

== ENCOUNTER → 2021-06-10 13:19 | Outpatient (BNVA) | payer MEDICARE, MEDICAID, SELFPAY | PROVIDERS: PCP Nurse Practitioner Family; Visit Provider Internal Medicine | DX: E03.9 Hypothyroidism, unspecified (principal); Z87.891 Personal history of nicotine dependence | CPT/HCPCS: 36415; 84439; 84443; 99213; 99214 ==

== ENCOUNTER → 2021-06-17 15:15 | Outpatient (BNVA) | payer MEDICARE, MEDICAID, SELFPAY | PROVIDERS: PCP Nurse Practitioner Family; Visit Provider Internal Medicine Cardiovascular Disease | DX: I47.1 Supraventricular tachycardia (principal); I11.0 Hypertensive heart disease with heart failure; I50.33 Acute on chronic diastolic (congestive) heart failure; Z87.891 Personal history of nicotine dependence; R60.0 Localized edema; I35.1 Nonrheumatic aortic (valve) insufficiency; G47.30 Sleep apnea, unspecified; Z99.89 Dependence on other enabling machines and devices; R42 Dizziness and giddiness | CPT/HCPCS: 99214 ==

== ENCOUNTER 2021-06-19 19:11 | Emergency (ER) | payer MEDICARE, MEDICAID, SELFPAY ==
[2021-06-19] VITALS (8 sets, daily range): BP systolic 117–148; BP diastolic 67–98; PULSE 71–100; RESP 15–20; TEMP 36.6; O2SAT 96–100
--- NOTE | 2021-06-19 19:50 | XRR_ITS ---
PROCEDURE INFORMATION: Exam: XR Chest Exam date and time: 06/19/2021 7:58 PM Age: 55 years old Clinical indication: Other: Dizzy; Additional info: Dizziness, HX chf TECHNIQUE: Imaging protocol: XR of the chest. Views: 1 view. COMPARISON: CR XR chest 1V portable [id number] 12/17/2020 1:59 PM FINDINGS: Lungs: Lungs are clear. Pleural spaces: There is no pleural effusion or pneumothorax. Heart/Mediastinum: The cardiac silhouette is within normal limits of size given AP technique. Bones/joints: Bones are unremarkable. XR/XR chest 1V portable [id number] IMPRESSION: No acute findings.
--- NOTE | 2021-06-19 19:50 | CTR_ITS ---
PROCEDURE INFORMATION: Exam: CT Head Without Contrast Exam date and time: 06/19/2021 8:28 PM Age: 55 years old Clinical indication: Patient HX: C/O worsening dizziness x 2 weeks TECHNIQUE: Imaging protocol: Computed tomography of the head without contrast. Radiation optimization: All CT scans at this facility use at least one of these dose optimization techniques: automated exposure control; mA and/or kV adjustment per patient size (includes targeted exams where dose is matched to clinical indication); or iterative reconstruction. COMPARISON: CT head wo con* [id number] 04/05/2021 1:07 PM RADIATION DOSE METRICS: Total DLP (mGy-cm): 841.11 FINDINGS: Brain: There is mild diffuse cerebral atrophy. There is no significant mass effect or midline shift. There is no acute intracranial hemorrhage. Cerebral ventricles: There is no significant ventricular dilation. The basal cisterns are unremarkable. Paranasal sinuses: The paranasal sinuses are clear. Mastoid air cells: The mastoid air cells are clear. Bones/joints: The calvarium is intact. Soft tissues: The visible extracranial soft tissues are unremarkable. CT/CT head wo con* [id number] IMPRESSION: No acute intracranial abnormality.
--- NOTE | 2021-06-19 19:52 | ECG_ITS ---
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 Measurements Intervals [place] Rate: 72 P: 149 PA: 133 QRS: -19 QRSD: 94 T: 121 QT: 392 QTc: 431 Interpretive Statements ECTOPIC ATRIAL RHYTHM NONSPECIFIC T-WAVE ABNORMALITY Compared to ECG 04/05/2021 13:05:20 Ectopic atrial rhythm now present T-wave abnormality now present Sinus tachycardia no longer present Myocardial infarct finding no longer present Electronically Signed On 06-21-2021 21:05:00 CDT by Amanda Bourgeois M.D. [id number]
--- NOTE | 2021-06-19 20:05 | ED_ITS ---
HPI - Dizziness General: Chief Complaint: Dizziness Stated Complaint: DIZZY Time Seen by Provider: 06/19/21 19:50 History of Present Illness: HPI Narrative: 55-year-old female comes in today with complaints of dizziness. Patient reports symptoms of dizziness for a little over 2 weeks. Patient reports today it became severe that she was able to stand or stand. Patient appears chronically ill but not toxic. Patient does wear oxygen routinely. Patient has a history of CHF, morbid obesity, chronic back pain, SVT, hypothyroidism, seizure disorder, and GERD. 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 COPD (chronic obstructive pulmonary disease) Diastolic CHF Diastolic heart failure Emphysema, unspecified Essential (primary) hypertension GERD (gastroesophageal reflux disease) Hypothyroidism (acquired) Learning disability Lower extremity edema Moderate aortic regurgitation Pain of hand Seizure disorder SVT (supraventricular tachycardia) Systolic murmur Thyroid function study abnormality Venous stasis Surgical History H/O esophagogastroduodenoscopy 03/19/2019: Normal H/O thyroidectomy History of carpal tunnel surgery History of colonoscopy 03/19/2019: Normal repeat in 10 years Hx of section Family History Unknown No problems noted. Other Adopted Social History Smoking and tobacco status: former smoker Quit status (tobacco): has quit using tobacco Year quit tobacco: 02-10 ci ggs/day Alcohol intake: never Lives independently: Yes Household members: none Housing: Apartment Current occupational status: disabled History of recent travel: No Current gender identity: Female Physical Exam Const: COMMON NORMALS: alert HENMT: COMMON NORMALS: normocephalic HEAD & SCALP: normocephalic Eye: GENERAL EYE: appearance normal, both eyes and all related structures ALIGNMENT: Yes alignment normal Neck/C-Spine: COMMON NORMALS: full ROM Resp: COMMON NORMALS: normal respiratory effort and clear to auscultation bilaterally AUSCULTATION: clear to auscultation bilaterally Cardio: COMMON NORMALS: regular rate RATE: regular rate GI: COMMON NORMALS: non-tender Extremity: NARRATIVE EXTREMITY EXAM: Bilateral lower extremities are edematous which is chronic for patient. No weeping is noted. Pulses are intact in the dorsalis pedis. Neuro: SENSORIUM/ORIENTATION: Yes alert Psych: COMMON NORMALS: cooperative Skin: COMMON NORMALS: negative for no rashes or lesions noted NARRATIVE SKIN EXAM: Patient has dry flaky skin. GENERAL SKIN EXAM: rashes and/or lesions noted Course Vital Signs: Vital signs: Vital Signs Temperature 97.8 F 06/19/21 19:41 Pulse Rate 72 06/19/21 21:05 Respiratory Rate 16 06/19/21 20:44 Blood Pressure 148/78 06/19/21 21:05 Pulse Oximetry 100 06/19/21 20:44 [facility] - Dizziness Medical Decision Making 55-year-old female comes in today with complaints of dizziness. Patient reports increased dizziness over the last 2 weeks. Patient does have a chronic problem with vertigo. Patient reports that today it felt like the rodriguez were coming in on her. On exam lungs are clear to auscultation. Skin was warm and dry. No acute distress was noted. Abdomen soft nontender. No focal neurodeficits were noted. Patient does have some chronic lower extremity edema. Differential diagnosis includes but not limited to vertigo, M?ni?re's disease, CVA, anxiety, CHF. Chest x-ray was normal. Laboratory values were unremarkable and stable. CT of the head was unchanged. Believe the patient most likely has some anxiety and an worsening of her chronic vertigo. Courage patient to continue with her Flonase spray and use her hydroxyzine as needed. Patient reported understanding agreed to plan. Lab Data : 06/19/21 20:15 06/19/21 20:15 Radiology Impressions Chest X-Ray 06/19/21 19:50 IMPRESSION: No acute findings. Head CT 06/19/21 19:50 IMPRESSION: No acute intracranial abnormality. Laboratory Results WBC 8.7 10^3/uL (4.0-10.0) 06/19/21 20:15 RBC 4.85 10^6/uL (4.1-5.3) 06/19/21 20:15 Hgb 12.3 g/dL (11.5-15.3) 06/19/21 20:15 Hct 41.3 % (37.0-47.0) 06/19/21 20:15 MCV 85.2 fl (81-99) 06/19/21 20:15 MCH 25.4 pg (28.0-34.0) L 06/19/21 20:15 MCHC 29.8 g/dL (30.0-36.0) L 06/19/21 20:15 RDW 14.4 % (12.1-15.1) 06/19/21 20:15 Plt Count 342 10^3/cmm (130-400) 06/19/21 20:15 MPV 9.9 fL (7.4-10.4) 06/19/21 20:15 Neut % (Auto) 51.8 % 06/19/21 20:15 Lymph % (Auto) 33.4 % 06/19/21 20:15 Bowman % (Auto) 10.1 % 06/19/21 20:15 Eos % (Auto) 3.6 % 06/19/21 20:15 Baso % (Auto) 0.9 % 06/19/21 20:15 Neut # (Auto) 4.52 10^3/uL (1.8-7.7) 06/19/21 20:15 Lymph # (Auto) 2.9 10^3/uL (0.8-4.8) 06/19/21 20:15 Bowman # (Auto) 0.9 10^3/uL (0.2-0.9) 06/19/21 20:15 Eos # (Auto) 0.3 10^3/uL (0.0-0.8) 06/19/21 20:15 Baso # (Auto) 0.1 10^3/uL (0.0-0.1) 06/19/21 20:15 Nucleated RBC % (auto) 0 % 06/19/21 20:15 Nucleated RBCs # 0.0 /100WBC 06/19/21 20:15 Sodium 139 mmol/L (136-145) 06/19/21 20:15 Potassium 4.1 mmol/L (3.5-5.1) 06/19/21 20:15 Chloride 100 mmol/L (98-107) 06/19/21 20:15 Carbon Dioxide 31 mmol/L (22-29) H 06/19/21 20:15 Anion Gap 12.1 (5-19) 06/19/21 20:15 BUN 17 mg/dL (6-20) 06/19/21 20:15 Creatinine 1.0 mg/dL (0.5-0.9) H 06/19/21 20:15 GFR Calculation 57.4 mL/min (90-130) L 06/19/21 20:15 Glucose 106 mg/dL (65-115) 06/19/21 20:15 Calculated Osmolality 290 mOsm/kg (285-295) 06/19/21 20:15 Calcium 9.1 mg/dL (8.5-10.5) 06/19/21 20:15 Total Bilirubin 0.9 mg/dL (0.15-1.2) 06/19/21 20:15 AST 16 U/L (0-32) 06/19/21 20:15 ALT 13 U/L (0-33) 06/19/21 20:15 Alkaline Phosphatase 88 IU/L (35-105) 06/19/21 20:15 Total Protein 7.1 g/dL (6.6-8.7) 06/19/21 20:15 Albumin 4.3 g/dL (3.5-5.2) 06/19/21 20:15 Globulin 2.8 g/dL (1.3-4.6) 06/19/21 20:15 Urine Color Yellow (Yellow) 06/19/21 20:57 Urine Appearance Clear (CLEAR) 06/19/21 20:57 Urine pH 6 (5-7) 06/19/21 20:57 Ur Specific [place] 1.015 (1.005-1.030) 06/19/21 20:57 Urine Protein Neg (Negative) 06/19/21 20:57 Urine Glucose (UA) Norm (Normal) 06/19/21 20:57 Urine Ketones Negative (Negative) 06/19/21 20:57 Urine Blood Neg (Negative) 06/19/21 20:57 Urine Nitrate Negative (Negative) 06/19/21 20:57 Urine Bilirubin Neg (Negative) 06/19/21 20:57 Urine Urobilinogen Norm mg/dL (Negative) 06/19/21 20:57 Ur Leukocyte Esterase Negative (Negative) 06/19/21 20:57 EKG Data EKG 1: EKG interpretation date: 06/19/21 EKG interpretation time: 20:09 Interpretation: EKG shows a sinus rhythm with a regular rate at [address] elevation or ectopy is noted. No prior exam is available for comparison. Artifact is noted on the EKG. Discharge Plan Discharge Patient Disposition: Home Clinical Impression: Vertigo, Posttraumatic stress disorder Condition: Stable Prescriptions: No Action montelukast [Singulair] 10 mg tablet 10 mg PO DAILY 0RF levetiracetam 250 mg tablet 250 mg PO BID 0RF aspirin [Adult Aspirin Regimen] 81 mg tablet,delayed release (DR/EC) 81 mg PO DAILY 0RF pantoprazole [Protonix] 40 mg tablet,delayed release (DR/EC) 40 mg PO QAM 0RF albuterol sulfate [ProAir HFA] 90 mcg/actuation HFA aerosol inhaler 2 puff INHALATION Q4H PRN (Reason: Shortness Of Breath) 0RF atorvastatin 20 mg tablet 20 mg PO BEDTIME 0RF Rx Instructions: takes 6 days/wk budesonide 0.5 mg/2 mL suspension for nebulization 0.5 mg inhalation BID PRN (Reason: Shortness Of Breath Or Wheezing) 0RF cetirizine 10 mg capsule 10 mg PO DAILY 0RF potassium chloride 20 mEq tablet extended release 20 meq PO DAILY Qty: 90 3RF levothyroxine 150 mcg tablet 150 mcg PO QAM 0RF Rx Instructions: Take one tablet Monday thru Monday and skip Monday. bumetanide 2 mg tablet 2 mg PO DAILY 0RF fluticasone propionate 50 mcg/actuation spray,suspension 1 spray intranasal BID PRN (Reason: Allergy Symptoms) 0RF metoprolol succinate 50 mg Tablet Extended Release 24 Hr 50 mg PO BID 0RF hydroxyzine HCl 10 mg Tablet 10 mg PO TID PRN (Reason: Anxiety) 0RF spironolactone 25 mg tablet 25 mg PO DAILY 0RF sucralfate 1 gram tablet 1 g PO TID 0RF trazodone 50 mg tablet 100 mg PO BEDTIME 0RF Vitamin D2 1,250 mcg (50,000 unit) capsule 50,000 unit PO Q7D 0RF Rx Instructions: on monday duloxetine 60 mg capsule,delayed release(DR/EC) 60 mg PO DAILY 0RF Discharge Orders: Discharge ED (Routine); Ordered 06/19/21 Ordered By: Raul Troncoso Referrals: Татьяна Storm, THEATRE DIRECTOR [Primary Care Provider] - Discharge Diet: Usual diet Discharge Activity: Increase activity as tolerated Patient Instructions: Opioid Safety Activity Restrictions/Additional Instructions: Activity as tolerated. Use a walker to maintain balance. Continue with routine medications. Use Flonase nasal spray as ordered. Take hydroxyzine as needed for dizziness. Follow-up with primary care for further instructions. Return to ER for new concerns Coding Level of Care Code ED Senior Quality Control Technician for Dc Serrato Exam Comprehensive
[2021-06-19 20:24] LABS: Basophils # 0.1 10^3/uL (0.0-0.1); Basophils % 0.9 %; Eosinophils # 0.3 10^3/uL (0.0-0.8); Eosinophils % 3.6 %; Hematocrit 41.3 % (37.0-47.0); Hemoglobin 12.3 g/dL (11.5-15.3); Lymphocytes # 2.9 10^3/uL (0.8-4.8); Lymphocytes % 33.4 %; Mean Corpuscular HGB Conc 29.8 g/dL (30.0-36.0); Mean Corpuscular Hemoglobin 25.4 pg (28.0-34.0); Mean Corpuscular Volume 85.2 fl (81-99); Mean Platelet Volume 9.9 fL (7.4-10.4); Monocytes # 0.9 10^3/uL (0.2-0.9); Monocytes % 10.1 %; Neutrophils # 4.52 10^3/uL (1.8-7.7); Neutrophils % 51.8 %; Nucleated Red Blood Cells % 0 %; Platelet Count 342 10^3/cmm (130-400); Red Blood Count 4.85 10^6/uL (4.1-5.3); Red Cell Distribution Width 14.4 % (12.1-15.1); White Blood Count 8.7 10^3/uL (4.0-10.0)
[2021-06-19 20:40] LABS: Alanine Aminotransferase 13 U/L (0-33); Albumin Level 4.3 g/dL (3.5-5.2); Alkaline Phosphatase 88 IU/L (35-105); Anion Gap 12.1 (5-19); Aspartate Amino Transferase 16 U/L (0-32); Blood Urea Nitrogen 17 mg/dL (6-20); Calcium 9.1 mg/dL (8.5-10.5); Carbon Dioxide 31 mmol/L (22-29); Chloride 100 mmol/L (98-107); Globulin 2.8 g/dL (1.3-4.6); Glomerular Filtration Rate 57.4 mL/min (90-130); Glucose 106 mg/dL (65-115); Osmolality Calculated 290 mOsm/kg (285-295); Potassium 4.1 mmol/L (3.5-5.1); Sodium 139 mmol/L (136-145); Total Bilirubin 0.9 mg/dL (0.15-1.2); Total Protein 7.1 g/dL (6.6-8.7)
[2021-06-19 21:02] LABS: Add Urine Microscopic? NO; Charge for UA Resulting for Rev
[2021-06-19 21:07] LABS: Bilirubin Urine Neg (Negative); Blood Urine Neg (Negative); Glucose Urine UA Norm (Normal); Ketones Urine Negative (Negative); Leukocyte Esterase Urine Negative (Negative); Nitrate Urine Negative (Negative); Protein Urine Neg (Negative); Specific Gravity, Urine 1.015 (1.005-1.030); Urine Appearance Clear (CLEAR); Urine Color Yellow (Yellow); Urobilinogen Urine Norm (Negative); pH Urine 6 (5-7)
== END 2021-06-19 22:20 | disposition home or self-care (01) ==
PROVIDERS: Emergency Provider Nurse Practitioner Family; PCP Nurse Practitioner Family
DX: R42 Dizziness and giddiness (principal); F43.10 Post-traumatic stress disorder, unspecified
CPT/HCPCS: 70450; 71045; 80053; 81003; 85025; 93005; 99285

== ENCOUNTER 2021-06-21 17:04 | Emergency (ER) | payer MEDICARE, MEDICAID, SELFPAY ==
[2021-06-21] VITALS (12 sets, daily range): BP systolic 107–148; BP diastolic 63–104; PULSE 65–79; RESP 16–18; TEMP 37.1; O2SAT 95–100; BMI 42.4
--- NOTE | 2021-06-21 19:02 | ED_ITS ---
HPI - Female Genitourinary General: Chief complaint: Urogenital-Female Stated complaint: difficulty urinating Time Seen by Provider: 06/21/21 17:19 History of Present Illness: Ms. Pierre is a 55-year-old lady with history of SVT, edema, valvular heart disease, hypertension, diastolic heart failure, thyroid disorder presenting to the emergency department with urinary concerns. She reports starting 2 days ago she began having inability to urinate after having blood with urine. She endorses associated back pain and suprapubic abdominal pain. Intensity symptoms has worsened. Intensity is moderate. Quality is aching and sharp. Denies frequent similar episodes in the past. She is still having bowel movements. No other specific changes in health, exacerbating, or alleviating factors identified. 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 COPD (chronic obstructive pulmonary disease) Diastolic CHF Diastolic heart failure Emphysema, unspecified Essential (primary) hypertension GERD (gastroesophageal reflux disease) Hypothyroidism (acquired) Learning disability Lower extremity edema Moderate aortic regurgitation Pain of hand Seizure disorder SVT (supraventricular tachycardia) Systolic murmur Thyroid function study abnormality Venous stasis Surgical History H/O esophagogastroduodenoscopy 03/19/2019: Normal H/O thyroidectomy History of carpal tunnel surgery History of colonoscopy 03/19/2019: Normal repeat in 10 years Hx of section Family History Unknown No problems noted. Other Adopted Social History Smoking and tobacco status: former smoker Quit status (tobacco): has quit using tobacco Year quit tobacco: 2019 - 1-5 ciggs/day Alcohol intake: never Lives independently: Yes Household members: none Housing: Apartment Current occupational status: disabled History of recent travel: No Current gender identity: Female Physical Exam Const: COMMON NORMALS: alert GENERAL APPEARANCE: cooperative and well developed HENMT: COMMON NORMALS: normocephalic and atraumatic HEAD & SCALP: normocephalic and atraumatic Eye: COMMON NORMALS: conjunctivae normal CONJUNCTIVA: Yes conjunctivae normal SCLERA: sclerae normal Neck/C-Spine: COMMON NORMALS: supple GENERAL: Yes trachea midline Resp: COMMON NORMALS: normal respiratory effort EFFORT & INSPECTION: Yes able to speak in complete sentences Cardio: COMMON NORMALS: regular rate and regular rhythm RATE: regular rate RHYTHM: regular rhythm GI: COMMON NORMALS: Soft to palpation PALPATION: Yes Soft to palpation, Yes Tenderness to palpation present (GI) (Suprapubic), No Guarding due to palpation present (GI) and No Rigid due to palpation PERCUSSION: normal to percussion Back/Pelvis: OTHER: Mid back pain Extremity: GENERAL: Yes normal exam except as noted and No edema Neuro: COMMON NORMALS: moves all extremities SENSORIUM/ORIENTATION: Yes alert and No Orientation impaired Psych: COMMON NORMALS: mental status grossly normal and Normal thought process present THOUGHT PROCESS: Normal thought process present Course ED course: - Patient was seen and evaluated by me at bedside - Patient placed on cardiac monitors, IV access obtained - Initial evaluation notable for exam as above - Labs personally interpreted by me -Analgesia given - Labs notable for no leukocytosis, normal hemoglobin. Metabolic panel without acute derangement requiring intervention. Urinalysis with mild hematuria and 1+ bacteria though no WBCs. Upon clarification of clinical history apparently patient has recently completed a course of Augmentin for UTI. - Imaging notable for no acute abnormality to explain symptoms including flank pain or urinary symptoms. - Upon serial reexamination after treatment the patient was mildly improved. She was able to urinate after IV fluids. - Based on patient history, evaluation, and testing as interpreted the most likely cause of the patient's condition is urinary symptoms of uncertain etiology - The results of ED evaluation were discussed with the patient including prescriptions and/or symptomatic cares (if applicable) including appropriate and responsible use, followup plan, and return precautions. The patient verbalized understanding and felt safe for discharge. - Patient discharged in satisfactory condition. Note: Click bubbles or prepopulated odonnell in note writing are used for assistance with data collection and billing and are inherently more limited than narrative and other text portions of this note. Please use narrative for additional clinical history and defer to narrative/free test for any case of contradictory information. If information appears in only free text or click bubble it should be considered present or absent as reported. Please contact note travel writer for clarifications of clinical information or contradictory information. MDM is a brief summary, contradictory or erroneous seeming information should be clarified and full note should be reviewed. Vital Signs: Vital signs: Vital Signs Temperature 98.7 F 06/21/21 17:54 Pulse Rate 74 06/22/21 01:12 Respiratory Rate 18 06/22/21 01:12 Blood Pressure 106/79 06/22/21 01:12 Pulse Oximetry 94 06/22/21 01:12 MDM - Female Medical Decision Making 55-year-old lady presenting to the emergency department due to concern over blood in urine and inability to urinate. No acute abnormality to explain symptoms identified on labs or imaging. No evidence of acute clot retention or significant clot burden in bladder, relatively minor amount of blood noted on urinalysis. Satisfactory for outpatient management. Medical Records I reviewed the patient's medical records. Lab Data I reviewed the patient's lab results. : 06/21/21 19:16 06/21/21 19:16 Radiology Impressions Abdomen/Pelvis CT 06/21/21 20:24 IMPRESSION: 1. No acute abnormality in the abdomen or pelvis. 2. Incidental/nonacute findings are listed in the report. Laboratory Results WBC 9.4 10^3/uL (4.0-10.0) 06/21/21 19:16 RBC 4.73 10^6/uL (4.1-5.3) 06/21/21 19:16 Hgb 12.2 g/dL (11.5-15.3) 06/21/21 19:16 Hct 40.0 % (37.0-47.0) 06/21/21 19:16 MCV 84.6 fl (81-99) 06/21/21 19:16 MCH 25.8 pg (28.0-34.0) L 06/21/21 19:16 MCHC 30.5 g/dL (30.0-36.0) 06/21/21 19:16 RDW 14.4 % (12.1-15.1) 06/21/21 19:16 Plt Count 352 10^3/cmm (130-400) 06/21/21 19:16 MPV 10.3 fL (7.4-10.4) 06/21/21 19:16 Neut % (Auto) 52.6 % 06/21/21 19:16 Lymph % (Auto) 33.3 % 06/21/21 19:16 [place] % (Auto) 9.6 % 06/21/21 19:16 Eos % (Auto) 3.2 % 06/21/21 19:16 Baso % (Auto) 1.0 % 06/21/21 19:16 Neut # (Auto) 4.92 10^3/uL (1.8-7.7) 06/21/21 19:16 Lymph # (Auto) 3.1 10^3/uL (0.8-4.8) 06/21/21 19:16 [place] # (Auto) 0.9 10^3/uL (0.2-0.9) 06/21/21 19:16 Eos # (Auto) 0.3 10^3/uL (0.0-0.8) 06/21/21 19:16 Baso # (Auto) 0.1 10^3/uL (0.0-0.1) 06/21/21 19:16 Nucleated RBC % (auto) 0 % 06/21/21 19:16 Nucleated RBCs # 0.0 /100WBC 06/21/21 19:16 PT 13.10 SECONDS (12.1-14.9) 06/21/21 19:40 INR 0.96 (0.8-1.2) 06/21/21 19:40 Sodium 139 mmol/L (136-145) 06/21/21 19:16 Potassium 4.0 mmol/L (3.5-5.1) 06/21/21 19:16 Chloride 100 mmol/L (98-107) 06/21/21 19:16 Carbon Dioxide 31 mmol/L (22-29) H 06/21/21 19:16 Anion Gap 12.0 (5-19) 06/21/21 19:16 BUN 17 mg/dL (6-20) 06/21/21 19:16 Creatinine 0.9 mg/dL (0.5-0.9) 06/21/21 19:16 GFR Calculation 64.8 mL/min (90-130) L 06/21/21 19:16 Glucose 124 mg/dL (65-115) H 06/21/21 19:16 Calculated Osmolality 291 mOsm/kg (285-295) 06/21/21 19:16 Calcium 9.0 mg/dL (8.5-10.5) 06/21/21 19:16 Total Bilirubin 1.0 mg/dL (0.15-1.2) 06/21/21 19:16 AST 19 U/L (0-32) 06/21/21 19:16 ALT 15 U/L (0-33) 06/21/21 19:16 Alkaline Phosphatase 94 IU/L (35-105) 06/21/21 19:16 Total Protein 7.7 g/dL (6.6-8.7) 06/21/21 19:16 Albumin 4.3 g/dL (3.5-5.2) 06/21/21 19:16 Globulin 3.4 g/dL (1.3-4.6) 06/21/21 19:16 Lipase 23 U/L (13-60) 06/21/21 19:16 Urine Color Yellow (Yellow) 06/21/21 20:04 Urine Appearance Clear (CLEAR) 06/21/21 20:04 Urine pH 5 (5-7) 06/21/21 20:04 Ur Specific S[place] 1.020 (1.005-1.030) 06/21/21 20:04 Urine Protein Neg (Negative) 06/21/21 20:04 Urine Glucose (UA) Norm (Normal) 06/21/21 20:04 Urine Ketones Negative (Negative) 06/21/21 20:04 Urine Blood 3+ (Negative) H 06/21/21 20:04 Urine Nitrate Negative (Negative) 06/21/21 20:04 Urine Bilirubin Neg (Negative) 06/21/21 20:04 Urine Urobilinogen Norm mg/dL (Negative) 06/21/21 20:04 Ur Leukocyte Esterase Negative (Negative) 06/21/21 20:04 Urine RBC 5-10 /hpf (0-2) H 06/21/21 20:04 Urine WBC 0-4 /hpf (0-5) H 06/21/21 20:04 Ur Squamous Epith Cells 0-4 /hpf (0-5) H 06/21/21 20:04 Amorphous Sediment Not Reportable 06/21/21 20:04 Urine Bacteria 1+ /hpf (NONE) H 06/21/21 20:04 Discharge Plan Discharge Patient Disposition: Home Clinical Impression: Urinary tract infection, Flank pain, Hematuria Condition: Stable Prescriptions: New nitrofurantoin macrocrystal 100 mg capsule 100 mg PO BID 7 Days Qty: 14 0RF Rx Instructions: must administer with a meal/food hydrocodone-acetaminophen 5-325 mg tablet 1 tab PO Q6H PRN (Reason: pain) Qty: 4 0RF No Action montelukast [Singulair] 10 mg tablet 10 mg PO DAILY 0RF levetiracetam 250 mg tablet 250 mg PO BID 0RF aspirin [Adult Aspirin Regimen] 81 mg tablet,delayed release (DR/EC) 81 mg PO DAILY 0RF pantoprazole [Protonix] 40 mg tablet,delayed release (DR/EC) 40 mg PO QAM 0RF albuterol sulfate [ProAir HFA] 90 mcg/actuation HFA aerosol inhaler 2 puff INHALATION Q4H PRN (Reason: Shortness Of Breath) 0RF atorvastatin 20 mg tablet 20 mg PO BEDTIME 0RF Rx Instructions: takes 6 days/wk budesonide 0.5 mg/2 mL suspension for nebulization 0.5 mg inhalation BID PRN (Reason: Shortness Of Breath Or Wheezing) 0RF cetirizine 10 mg capsule 10 mg PO DAILY 0RF potassium chloride 20 mEq tablet extended release 20 meq PO DAILY Qty: 90 3RF levothyroxine 150 mcg tablet 150 mcg PO QAM 0RF Rx Instructions: Take one tablet Monday thru Monday and skip Monday. bumetanide 2 mg tablet 2 mg PO DAILY 0RF fluticasone propionate 50 mcg/actuation spray,suspension 1 spray intranasal BID PRN (Reason: Allergy Symptoms) 0RF metoprolol succinate 50 mg Tablet Extended Release 24 Hr 50 mg PO BID 0RF hydroxyzine HCl 10 mg Tablet 10 mg PO TID PRN (Reason: Anxiety) 0RF spironolactone 25 mg tablet 25 mg PO DAILY 0RF sucralfate 1 gram tablet 1 g PO TID 0RF trazodone 50 mg tablet 100 mg PO BEDTIME 0RF ergocalciferol (vitamin D2) [Vitamin D2] 1,250 mcg (50,000 unit) capsule 50,000 unit PO Q7D 0RF Rx Instructions: on monday duloxetine 60 mg capsule,delayed release(DR/EC) 60 mg PO DAILY 0RF Discharge Orders: Discharge ED (Routine); Ordered 06/22/21 Ordered By: Ken Barnes Referrals: Татьяна Storm FNP [Primary Care Provider] - Discharge Diet: Usual diet Discharge Activity: Increase activity as tolerated Patient Instructions: Urinary Tract Infection in Women (ED), Hematuria (ED), Opioid Safety Activity Restrictions/Additional Instructions: Thank you for visiting the emergency department. You were seen and evaluated for abdominal and flank pain. The exact cause of your symptoms is unclear however you may still have mild residual urinary tract infection. You will be treated with antibiotics. Please follow-up with your primary care provider. Please return to the emergency department for worsening symptoms or anything else that you are concerned about and feel needs emergency department evaluation. Coding Level of Care Code ED Stock Patcher for Dc Serrato
[2021-06-21 19:34] LABS: Basophils # 0.1 10^3/uL (0.0-0.1); Eosinophils # 0.3 10^3/uL (0.0-0.8); Eosinophils % 3.2 %; Hemoglobin 12.2 g/dL (11.5-15.3); Lymphocytes # 3.1 10^3/uL (0.8-4.8); Lymphocytes % 33.3 %; Mean Corpuscular HGB Conc 30.5 g/dL (30.0-36.0); Mean Corpuscular Hemoglobin 25.8 pg (28.0-34.0); Mean Corpuscular Volume 84.6 fl (81-99); Mean Platelet Volume 10.3 fL (7.4-10.4); Monocytes # 0.9 10^3/uL (0.2-0.9); Monocytes % 9.6 %; Neutrophils # 4.92 10^3/uL (1.8-7.7); Neutrophils % 52.6 %; Nucleated Red Blood Cells % 0 %; Platelet Count 352 10^3/cmm (130-400); Red Blood Count 4.73 10^6/uL (4.1-5.3); Red Cell Distribution Width 14.4 % (12.1-15.1); White Blood Count 9.4 10^3/uL (4.0-10.0)
[2021-06-21] MEDS: morphine 4 mg/mL SDV 1 mL IVP (19:44)
[2021-06-21 20:00] LABS: Alanine Aminotransferase 15 U/L (0-33); Albumin Level 4.3 g/dL (3.5-5.2); Alkaline Phosphatase 94 IU/L (35-105); Aspartate Amino Transferase 19 U/L (0-32); Blood Urea Nitrogen 17 mg/dL (6-20); Carbon Dioxide 31 mmol/L (22-29); Chloride 100 mmol/L (98-107); Globulin 3.4 g/dL (1.3-4.6); Glomerular Filtration Rate 64.8 mL/min (90-130); Glucose 124 mg/dL (65-115); Lipase 23 U/L (13-60); Osmolality Calculated 291 mOsm/kg (285-295); Sodium 139 mmol/L (136-145); Total Protein 7.7 g/dL (6.6-8.7)
[2021-06-21 20:10] LABS: INR 0.96 (0.8-1.2)
--- NOTE | 2021-06-21 20:11 | PC.PHAR ---
PT HAS A HOME HEALTH NURSE FROM [facility]. THE FABRICATION SUPERVISOR NURSE VINNIE DID NOT ANSWER HER PHONE. PT UNABLE TO VERIFY- MEDICATIONS VERIFIED USING EXTERNAL MED LIST. PT STATED SHE TOOK ALL HER MORNING MEDS.
[2021-06-21 20:22] LABS: Add Urine Microscopic? YES; Bilirubin Urine Neg (Negative); Blood Urine 3+ (Negative); Glucose Urine UA Norm (Normal); Ketones Urine Negative (Negative); Leukocyte Esterase Urine Negative (Negative); Nitrate Urine Negative (Negative); Protein Urine Neg (Negative); Squamous Epithelial Cell Urine 0-4 /hpf (0-5); Urine Appearance Clear (CLEAR); Urine Color Yellow (Yellow); Urobilinogen Urine Norm (Negative); WBC Urine 0-4 /hpf (0-5); pH Urine 5 (5-7)
[2021-06-21 20:23] LABS: Add Urine Culture? Yes; Bacteria Urine 1+ /hpf
--- NOTE | 2021-06-21 20:24 | CTR_ITS ---
PROCEDURE INFORMATION: Exam: CT Abdomen And Pelvis Without Contrast Exam date and time: 06/21/2021 8:42 PM Age: 55 years old Clinical indication: Abdominal pain; Flank; Other: Bilat; Additional info: Flank pain, unable to urinate TECHNIQUE: Imaging protocol: Computed tomography of the abdomen and pelvis without contrast. Radiation optimization: All CT scans at this facility use at least one of these dose optimization techniques: automated exposure control; mA and/or kV adjustment per patient size (includes targeted exams where dose is matched to clinical indication); or iterative reconstruction. COMPARISON: CT abdomen pelvis w con* [id number] 12/17/2020 12:37 PM RADIATION DOSE METRICS: Total DLP (mGy-cm): 1906.06 FINDINGS: Limitations: Evaluation of solid organs and vasculature is limited without intravenous contrast. This is standard protocol for evaluation of possible urolithiasis. Lungs: Dependent atelectasis in the right lung. Pleural spaces: No pleural effusion. Heart: Stable calcification of the aortic valve. Stable mild enlargement of the visualized portions of the heart. Liver: The liver is unremarkable. Gallbladder and bile ducts: Stable findings consistent with a previous cholecystectomy. No biliary ductal dilatation. Pancreas: The pancreas is unremarkable. No pancreatic ductal dilatation. Spleen: The spleen is unremarkable. Adrenal glands: The right and left adrenal glands are unremarkable. Kidneys and ureters: The right and left kidneys are unremarkable. The right and left ureters are unremarkable. Stomach and bowel: Multiple fecaliths in the colon. Increased fecal content in the colon. No acute abnormality in the small bowel. The stomach is collapsed, which can limit evaluation. No focal abnormality in the stomach otherwise. Appendix: Stable changes consistent with a previous appendectomy. Intraperitoneal space: No free intraperitoneal air. No ascites. No loculated fluid collections to suggest an abscess. Vasculature: Mild atherosclerotic changes in the visualized arteries. No evidence for aortic aneurysm. Lymph nodes: No lymphadenopathy. Urinary bladder: The bladder is incompletely filled, which can limit evaluation. No focal abnormality in the bladder however. Reproductive: The uterus, right ovary, and left ovary are unremarkable. Bones/joints: Degenerative changes in the spine, sacroiliac joints, and hips. Soft tissues: No acute abnormality in the extra-abdominal soft tissues. CT/CT kidney stone [id number] IMPRESSION: 1. No acute abnormality in the abdomen or pelvis. 2. Incidental/nonacute findings are listed in the report.
[2021-06-21] MEDS: sodium chloride 0.9% 1,000 ML 999 ML IV (21:02)
[2021-06-22] VITALS: BP 117/65; PULSE 59; RESP 18; O2SAT 100
[2021-06-22 00:30] VITALS: BP 127/79; PULSE 62; RESP 18; O2SAT 100
[2021-06-22 01:00] VITALS: BP 117/73; PULSE 67; RESP 18; O2SAT 96
[2021-06-22 01:12] VITALS: BP 106/79; PULSE 74; RESP 18; O2SAT 94
== END 2021-06-22 01:12 | disposition home or self-care (01) ==
PROVIDERS: Emergency Medicine; Emergency Provider Emergency Medicine; PCP Nurse Practitioner Family
DX: N39.0 Urinary tract infection, site not specified (principal); R10.30 Lower abdominal pain, unspecified; Z79.82 Long term (current) use of aspirin; I11.0 Hypertensive heart disease with heart failure; I50.32 Chronic diastolic (congestive) heart failure
CPT/HCPCS: 51798; 74176; 80053; 81001; 83690; 85025; 85610; 87086; 96361; 96374; 99284; J2270; J7030

== ENCOUNTER 2021-07-03 18:45 | Emergency (ER) | payer MEDICARE, MEDICAID, SELFPAY ==
--- NOTE | 2021-07-03 18:55 | XRR_ITS ---
PROCEDURE INFORMATION: Exam: XR Right Wrist Exam date and time: 07/03/2021 7:06 PM Age: 55 years old Clinical indication: Injury or trauma; Fall; Blunt trauma (contusions or hematomas); Wrist; Right TECHNIQUE: Imaging protocol: XR Right wrist. Views: 3 or more views. COMPARISON: No relevant prior studies available. FINDINGS: Bones/joints: Unremarkable. Ulnar negative variance. Soft tissues: Normal. XR/XR wrist RT min 3V* [id number] IMPRESSION: No acute findings.
[2021-07-03 18:57] VITALS: BP 146/79; PULSE 103; RESP 20; TEMP 36.6; O2SAT 94; BMI 43.4
--- NOTE | 2021-07-03 18:58 | ED_ITS ---
HPI - Extremity Injury (Upper) General: Chief Complaint: Extremity Injury, Upper Stated Complaint: wrist injury post fall Time Seen by Provider: 07/03/21 18:49 History of Present Illness: 55-year-old female presents with right wrist pain and injury. Patient reports that 5 days ago she fell and injured her right wrist. She reports that since then the pain has been getting worse and swollen and more difficult to move. Patient reports that she is try to do some activity with it that it is continue to bother her. Patient presents today because it hurts a lot worse to move. She reports that she injured her wrist in a fall. She has no other injuries from the fall. 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 COPD (chronic obstructive pulmonary disease) Diastolic CHF Diastolic heart failure Emphysema, unspecified Essential (primary) hypertension GERD (gastroesophageal reflux disease) Hypothyroidism (acquired) Learning disability Lower extremity edema Moderate aortic regurgitation Pain of hand Seizure disorder SVT (supraventricular tachycardia) Systolic murmur Thyroid function study abnormality Venous stasis Surgical History H/O esophagogastroduodenoscopy 03/19/2019: Normal H/O thyroidectomy History of carpal tunnel surgery History of colonoscopy 03/19/2019: Normal repeat in 10 years Hx of section Family History Unknown No problems noted. Other Adopted Social History Smoking and tobacco status: former smoker Quit status (tobacco): has quit using tobacco Year quit tobacco: 2019 - 1-5 ciggs/day Alcohol intake: never Lives independently: Yes Household members: none Housing: Apartment Current occupational status: disabled History of recent travel: No Current gender identity: Female Physical Exam Const: COMMON NORMALS: no acute distress, patient oriented x3 and alert Resp: COMMON NORMALS: normal respiratory effort, No retractions and clear to auscultation bilaterally AUSCULTATION: clear to auscultation bilaterally Cardio: COMMON NORMALS: regular rate and regular rhythm RATE: regular rate RHYTHM: regular rhythm GI: COMMON NORMALS: Soft to palpation and non-tender PALPATION: Yes Soft to palpation Extremity: RIGHT UPPER EXTREMITY: Yes wrist (Swelling, tender range of motion, tender to palpation) Neuro: COMMON NORMALS: patient oriented x3, CN's II-XII intact bilaterally and no focal motor deficits SENSORIUM/ORIENTATION: Yes alert Psych: APPEARANCE: Yes grossly normal ATTITUDE: Yes calm Course Vital Signs: Vital signs: Vital Signs Temperature 97.9 F 07/03/21 18:57 Pulse Rate 100 07/03/21 19:03 Respiratory Rate 20 H 07/03/21 19:03 Blood Pressure 146/79 07/03/21 19:03 Pulse Oximetry 95 07/03/21 19:03 MDM - Extremity Injury (Upper) Medical Decision Making Patient with negative x-ray of her wrist. Patient placed in a Velcro wrist splint. She should use topical lidocaine Tylenol ibuprofen for pain. I recommended she wear it for approximately 1 week then start advancing activity as tolerated. Patient stable and discharged home Lab Data Radiology Impressions Wrist X-Ray 07/03/21 18:55 IMPRESSION: No acute findings. Imaging Data Xray Ortho: My impression: No acute finding Discharge Plan Discharge Patient Disposition: Home Clinical Impression: Sprain and strain of wrist Condition: Stable Prescriptions: No Action montelukast [Singulair] 10 mg tablet 10 mg PO DAILY 0RF levetiracetam 250 mg tablet 250 mg PO BID 0RF aspirin [Adult Aspirin Regimen] 81 mg tablet,delayed release (DR/EC) 81 mg PO DAILY 0RF pantoprazole [Protonix] 40 mg tablet,delayed release (DR/EC) 40 mg PO QAM 0RF albuterol sulfate [ProAir HFA] 90 mcg/actuation HFA aerosol inhaler 2 puff INHALATION Q4H PRN (Reason: Shortness Of Breath) 0RF atorvastatin 20 mg tablet 20 mg PO BEDTIME 0RF Rx Instructions: takes 6 days/wk budesonide 0.5 mg/2 mL suspension for nebulization 0.5 mg inhalation BID PRN (Reason: Shortness Of Breath Or Wheezing) 0RF cetirizine 10 mg capsule 10 mg PO DAILY 0RF potassium chloride 20 mEq tablet extended release 20 meq PO DAILY Qty: 90 3RF levothyroxine 150 mcg tablet 150 mcg PO QAM 0RF Rx Instructions: Take one tablet Monday thru Monday and skip Monday. bumetanide 2 mg tablet 2 mg PO DAILY 0RF fluticasone propionate 50 mcg/actuation spray,suspension 1 spray intranasal BID PRN (Reason: Allergy Symptoms) 0RF metoprolol succinate 50 mg Tablet Extended Release 24 Hr 50 mg PO BID 0RF hydroxyzine HCl 10 mg Tablet 10 mg PO TID PRN (Reason: Anxiety) 0RF spironolactone 25 mg tablet 25 mg PO DAILY 0RF sucralfate 1 gram tablet 1 g PO TID 0RF trazodone 50 mg tablet 100 mg PO BEDTIME 0RF ergocalciferol (vitamin D2) [Vitamin D2] 1,250 mcg (50,000 unit) capsule 50,000 unit PO Q7D 0RF Rx Instructions: on monday duloxetine 60 mg capsule,delayed release(DR/EC) 60 mg PO DAILY 0RF hydrocodone-acetaminophen 5-325 mg tablet 1 tab PO Q6H PRN (Reason: pain) Qty: 4 0RF Discharge Orders: Discharge ED (Routine); Ordered 07/03/21 Ordered By: Nikita Ugalde Referrals: Татьяна Storm, DIGITAL ASSET SPECIALIST [Primary Care Provider] - Discharge Diet: Usual diet Discharge Activity: Increase activity as tolerated Activity Restrictions/Additional Instructions: 4% topical lidocaine with menthol. Use as directed on package. This is available [id number] Please wear your wrist brace for approximately 1 week then slowly advance activity as tolerated If symptoms or not improved in approximately 2 weeks follow-up with your primary care provider for repeat x-ray Coding Level of Care Code ED Generator Switchboard Operator for Chg Fwd Exam Detailed
[2021-07-03 19:03] VITALS: BP 128/58; BP 146/79; PULSE 100; PULSE 73; RESP 20; O2SAT 91; O2SAT 95
--- NOTE | 2021-07-03 19:19 | PC.NURSE ---
190 Assumed pt care from Effie AMEZCUA
[2021-07-03 19:56] VITALS: BP 135/54; PULSE 78; RESP 20; O2SAT 94
== END 2021-07-03 19:56 | disposition home or self-care (01) ==
PROVIDERS: Emergency Provider Student in an Organized Health Care Education/Training Program; PCP Nurse Practitioner Family
DX: S63.501A Unspecified sprain of right wrist, initial encounter (principal); S66.911A Strain of unspecified muscle, fascia and tendon at wrist and hand level, right hand, initial encounter; W19.XXXA Unspecified fall, initial encounter
CPT/HCPCS: 73110; 99283

== ENCOUNTER 2021-07-17 23:48 | Emergency (ER) | payer MEDICARE, MEDICAID, SELFPAY ==
[2021-07-17 23:56] VITALS: BP 134/84; PULSE 83; RESP 18; TEMP 36.7; O2SAT 95; BMI 43.9
[2021-07-18 00:04] VITALS: BP 170/128; BP 194/74; BP 196/102; PULSE 117; PULSE 77; PULSE 83
--- NOTE | 2021-07-18 00:21 | ECG_ITS ---
[facility] Test Date: 2021-07-18 Pat Name: Crystal Pierre Department: Room: Gender: Female Clam Grower: : 1965 Requested By: Raul Burroughs Order Number: [id number] Clemencia MD: Funmilayo De La Rosa M.D. Measurements Intervals Brady Rate: 80 P: 67 WI: 139 QRS: 46 QRSD: 100 T: 61 QT: 374 QTc: 433 Interpretive Statements SINUS RHYTHM Compared to ECG 06/19/2021 19:55:43 Ectopic atrial rhythm no longer present T-wave abnormality no longer present Electronically Signed On 07-18-2021 21:12:39 CDT by Funmilayo De La Rosa M.D. [id number]
--- NOTE | 2021-07-18 00:22 | W.ED.DIZZY ---
HPI - Dizziness General: Chief Complaint: Dizziness Stated Complaint: D/high BP Time Seen by Provider: 07/18/21 00:02 History of Present Illness: HPI Narrative: 55-year-old female comes in today for complaints of elevated blood pressure, recurrent dizziness, right wrist pain. Patient had fallen 2 weeks ago and was evaluated in ER for her injury to the wrist. There was negative for any abnormality. Patient continues to complain of pain. Patient also reports some dizziness and noticing her blood pressure is elevated. Patient denies any headache, nausea vomiting, or weakness to 1 side or the other. Speech is clear. 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 COPD (chronic obstructive pulmonary disease) Diastolic CHF Diastolic heart failure Emphysema, unspecified Essential (primary) hypertension GERD (gastroesophageal reflux disease) Hypothyroidism (acquired) Learning disability Lower extremity edema Moderate aortic regurgitation Pain of hand Seizure disorder SVT (supraventricular tachycardia) Systolic murmur Thyroid function study abnormality Venous stasis Surgical History H/O esophagogastroduodenoscopy 03/19/2019: Normal H/O thyroidectomy History of carpal tunnel surgery History of colonoscopy 03/19/2019: Normal repeat in 10 years Hx of section Family History Unknown No problems noted. Other Adopted Social History Smoking and tobacco status: former smoker Quit status (tobacco): has quit using tobacco Year quit tobacco: 2019 - 1-5 ciggs/day Alcohol intake: never Lives independently: Yes Household members: none Housing: Apartment Current occupational status: disabled History of recent travel: No Current gender identity: Female Physical Exam Const: COMMON NORMALS: alert HENMT: COMMON NORMALS: normocephalic HEAD & SCALP: normocephalic Neck/C-Spine: COMMON NORMALS: full ROM Resp: COMMON NORMALS: normal respiratory effort and clear to auscultation bilaterally AUSCULTATION: clear to auscultation bilaterally Cardio: COMMON NORMALS: regular rate RATE: regular rate Extremity: COMMON NORMALS: capillary refill normal Neuro: SENSORIUM/ORIENTATION: Yes alert Skin: COMMON NORMALS: turgor normal GENERAL SKIN EXAM: turgor normal Course Vital Signs: Vital signs: Vital Signs Temperature 98.1 F 07/17/21 23:56 Pulse Rate 77 07/18/21 00:04 Respiratory Rate 18 07/17/21 23:56 Blood Pressure 194/74 07/18/21 00:04 Pulse Oximetry 95 07/17/21 23:56 [facility] - Dizziness Medical Decision Making 55-year-old female comes in today with complaints of dizziness and elevated blood pressure. Patient also reports some pain to her right wrist in which she had injured from 2 weeks ago. On exam patient's wrist has no deformity some mild joint line tenderness. X-ray from previous exam was normal. Lungs are clear to auscultation. Patient has some large lower extremities most likely due to chronic lymphedema. Vital signs were normal with a blood pressure 134 systolic. Orthostats did jump up though with elevation of blood pressure up to 210 sitting. EKG showed normal sinus rhythm. No focal neurodeficits were noted. Differential diagnosis includes uncontrolled hypertension, CHF, anxiety. EKG was normal sinus rhythm, orthostatic blood pressures indicated no dehydration. Believe the patient probably has anxiety and is alone at night which worsens her episodes of distress. There is no sign of CHF. Patient was given 1 mg Ativan to help her relax and recommended to follow-up with primary care for adjustment of her medications to improve her blood pressure control. EKG Data EKG 1: EKG interpretation date: 07/18/21 EKG interpretation time: 00:44 Prior EKG tracings: available for review Interpretation: EKG shows a sinus rhythm with regular rate 80 bpm. Computer interprets as normal. No ST elevation or ectopy is noted. Mild artifact is on the EKG. No changes from prior exam. Discharge Plan Discharge Patient Disposition: Home Clinical Impression: Anxiety Hypertension Qualifiers: Hypertension type: unspecified Qualified Code(s): I10 - Essential (primary) hypertension Condition: Stable Prescriptions: No Action montelukast [Singulair] 10 mg tablet 10 mg PO DAILY 0RF levetiracetam 250 mg tablet 250 mg PO BID 0RF aspirin [Adult Aspirin Regimen] 81 mg tablet,delayed release (DR/EC) 81 mg PO DAILY 0RF pantoprazole [Protonix] 40 mg tablet,delayed release (DR/EC) 40 mg PO QAM 0RF albuterol sulfate [ProAir HFA] 90 mcg/actuation HFA aerosol inhaler 2 puff INHALATION Q4H PRN (Reason: Shortness Of Breath) 0RF atorvastatin 20 mg tablet 20 mg PO BEDTIME 0RF Rx Instructions: takes 6 days/wk budesonide 0.5 mg/2 mL suspension for nebulization 0.5 mg inhalation BID PRN (Reason: Shortness Of Breath Or Wheezing) 0RF cetirizine 10 mg capsule 10 mg PO DAILY 0RF potassium chloride 20 mEq tablet extended release 20 meq PO DAILY Qty: 90 3RF levothyroxine 150 mcg tablet 150 mcg PO QAM 0RF Rx Instructions: Take one tablet Monday thru Monday and skip Monday. bumetanide 2 mg tablet 2 mg PO DAILY 0RF fluticasone propionate 50 mcg/actuation spray,suspension 1 spray intranasal BID PRN (Reason: Allergy Symptoms) 0RF metoprolol succinate 50 mg Tablet Extended Release 24 Hr 50 mg PO BID 0RF hydroxyzine HCl 10 mg Tablet 10 mg PO TID PRN (Reason: Anxiety) 0RF spironolactone 25 mg tablet 25 mg PO DAILY 0RF sucralfate 1 gram tablet 1 g PO TID 0RF trazodone 50 mg tablet 100 mg PO BEDTIME 0RF ergocalciferol (vitamin D2) [Vitamin D2] 1,250 mcg (50,000 unit) capsule 50,000 unit PO Q7D 0RF Rx Instructions: on monday duloxetine 60 mg capsule,delayed release(DR/EC) 60 mg PO DAILY 0RF hydrocodone-acetaminophen 5-325 mg tablet 1 tab PO Q6H PRN (Reason: pain) Qty: 4 0RF Discharge Orders: Discharge ED (Routine); Ordered 07/18/21 Ordered By: Raul Troncoso Referrals: Татьяна Storm FNP [Primary Care Provider] - Discharge Diet: Usual diet Discharge Activity: Increase activity as tolerated Patient Instructions: DASH Eating Plan (ED) Activity Restrictions/Additional Instructions: Follow the Dash eating plan to help with your blood pressure. Continue with routine medications. Follow-up with Татьяна Storm, nurse practitioner, on Monday for repeat evaluation of blood pressure and adjustment of medications. Return to ER for new concerns or worsening symptoms. Coding Level of Care Code ED Semi Automatic Sewing Machine Operator for Chg Fwd Exam Detailed
[2021-07-18] MEDS: LORazepam 1 mg Tablet PO (00:32)
[2021-07-18 00:58] VITALS: BP 170/124; PULSE 81; RESP 18; O2SAT 92
== END 2021-07-18 00:59 | disposition home or self-care (01) ==
PROVIDERS: Emergency Provider Nurse Practitioner Family; PCP Nurse Practitioner Family
DX: F41.9 Anxiety disorder, unspecified (principal); I10 Essential (primary) hypertension; M25.531 Pain in right wrist; Z79.82 Long term (current) use of aspirin; Z79.899 Other long term (current) drug therapy; Z87.891 Personal history of nicotine dependence
CPT/HCPCS: 93005; 99283

== ENCOUNTER → 2021-08-24 09:42 | Outpatient (BNVA) | payer MEDICARE, MEDICAID, SELFPAY | PROVIDERS: PCP Nurse Practitioner Family; Referring Provider Specialist; Visit Provider Specialist | DX: G56.22 Lesion of ulnar nerve, left upper limb (principal) | CPT/HCPCS: 95910; 95913 ==

== ENCOUNTER 2021-08-30 15:23 | Outpatient (CLI) | payer MEDICARE, MEDICAID, SELFPAY ==
--- NOTE | 2021-08-30 15:15 | USCV_ITS ---
Crystal Pierre Age: 55 Gender: F : 1965 Exam Date: 08/30/2021 16:05 Ordering Phys: Funmilayo De La Rosa MD ([email or web address]) Technologist: Jennifer Duque Exam Location[place] [facility] [place] Indication: AR BP: / HR: 68 Rhythm: Sinus Technical Quality: Technically difficult study MEASUREMENTS (Male / Female) Normal Values 2D ECHO LV Diastolic Diameter PLAX 3.4 cm 4.2 - 5.9 / 3.9 - 5.3 cm LV Systolic Diameter PLAX 2.2 cm LV Chamber Size 4.1 cm IVS Diastolic Thickness 1.6 cm 0.6 - 1.0 / 0.6 - 0.9 cm IVS Systolic Thickness 1.3 cm LVPW Diastolic Thickness 1.3 cm 0.6 - 1.0 / 0.6 - 0.9 cm LVPW Systolic Thickness 1.6 cm RV Chamber Size 3.3 cm LVOT Diameter 2.1 cm LV Ejection Fraction 2D Teich 66.9 % LV Ejection Fraction MOD 2C 55.4 % LV Ejection Fraction 2C AL 57.2 % LA Diameter 3.3 cm LA Width 2.6 cm LA Height 4.3 cm RA Width 3.1 cm RA Height 4.3 cm Aorta at Sinotubular Diameter 2.5 cm IVC Diameter 1.8 cm M-MODE Aortic Annulus Diameter 2.7 cm LA Ao Ratio MM 1.5 MV E Point Septal Separation 0.5 cm DOPPLER AV Peak Velocity 211.0 cm/s LVOT Peak Velocity 140.0 cm/s AV Area Cont Eq vti 2.8 cm squared AV Area Cont Eq pk 2.2 cm squared MV Area PHT 4.2 cm squared Mitral E to A Ratio 0.9 MV E' Velocity 43.5 cm/s Mitral E to MV E' Ratio 7.5 Mitral E to LV E' Lateral Ratio 7.7 Mitral E to LV E' Septal Ratio 7.3 TR Peak Velocity 203.1 cm/s TR Peak Gradient 16.5 mmHg TR Mean Velocity 138.1 cm/s TR Mean Gradient 8.5 mmHg TR Velocity Time Integral 47.2 cm TV Peak E Velocity 58.0 cm/s Right Atrial Pressure 5.0 mmHg Pulmonary Artery Systolic Pressu 21.5 mmHg PV Peak Velocity 76.0 cm/s RV Acceleration Time 0.1 s RV Ejection Time 0.4 s RV AcT/ET 0.3 FINDINGS Left Ventricle Normal left ventricular size and systolic function, EF 55%. No regional wall motion abnormalities. Mild left ventricular hypertrophy. Grade I/IV diastolic dysfunction (abnormal relaxation filling pattern), normal to mildly elevated filling pressures. Right Ventricle The right ventricle is normal in size and function. Right Atrium The right atrium is normal in size. Left Atrium The left atrium is normal in size. Mitral Valve Mild mitral valve regurgitation. Aortic Valve Thickened aortic valve. Mild aortic valve regurgitation. Tricuspid Valve No gross abnormalities noted Pulmonic Valve No gross abnormalities noted Pericardium Normal pericardium without effusion. Aorta Normal ascending aorta dimension. IVC The inferior vena cava pulmonary and hepatic veins appear normal. CONCLUSIONS Normal left ventricular size and systolic function, EF 55%. No regional wall motion abnormalities. Mild left ventricular hypertrophy. Grade I/IV diastolic dysfunction (abnormal relaxation filling pattern), normal to mildly elevated filling pressures. Mild mitral valve regurgitation. Thickened aortic valve. Mild aortic valve regurgitation. There is no pericardial effusion. There are no intracardiac masses. Compared to the study from 09/11/2019, there may not be significant change Dr Funmilayo De La Rosa MD FACC (Electronically Signed) Final Date: 31 August 2021 20:59 S
== END 2021-08-30 15:24 | disposition home or self-care (01) ==
LOC: RAD 15:23
PROVIDERS: PCP Nurse Practitioner Family; Visit Provider Internal Medicine Cardiovascular Disease
DX: R06.00 Dyspnea, unspecified (principal); I08.0 Rheumatic disorders of both mitral and aortic valves
CPT/HCPCS: 93306

== ENCOUNTER 2021-09-06 21:30 | Emergency (ER) | payer MEDICARE, MEDICAID, SELFPAY ==
[2021-09-06 22:01] VITALS: BP 152/80; PULSE 74; RESP 18; TEMP 37; O2SAT 93; BMI 40.7
--- NOTE | 2021-09-06 22:10 | W.ED.GENADLT ---
HPI - General Adult General: Chief complaint: General Medical Stated complaint: spider bite to R arm Time Seen by Provider: 09/06/21 21:57 Source: patient Mode of arrival: ambulatory Limitations: no limitations History of Present Illness: 55-year-old female states that this morning she had went outside and had a black spider informed that it bit her. States she had some erythema to the spots and someone to have it checked out she does not believe it was a brown recluse or black . She denies any pain denies any fever denies any drainage at the site. Associated symptoms: Deny chest pain, dyspnea, headache(s), nausea, rash or vomiting Review of Systems Const: Denies: fever(s), chills, body aches or change in appetite Eyes: Denies: blurry vision or eye discomfort ENMT: Denies: throat pain or dental pain Card: Denies: chest pain Resp: Denies: dyspnea GI: Denies: abdominal pain, nausea, vomiting or diarrhea : Denies: dysuria Musc: Denies: neck pain or back pain Skin/Breast: Denies: rash Neuro: Denies: headache(s) Psych: Denies: depression Peter/Lymph: Denies: easy bruising All/Imm: Denies: urticaria PFSH ED PFSH: Medical History Asthma Atypical chest pain Cervical radiculopathy Chest pain 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 COPD (chronic obstructive pulmonary disease) Diastolic CHF Diastolic heart failure Emphysema, unspecified Essential (primary) hypertension GERD (gastroesophageal reflux disease) Hypothyroidism (acquired) Learning disability Lower extremity edema Moderate aortic regurgitation Pain of hand Seizure disorder SVT (supraventricular tachycardia) Systolic murmur Thyroid function study abnormality Venous stasis Surgical History H/O esophagogastroduodenoscopy 03/19/2019: Normal H/O thyroidectomy History of carpal tunnel surgery History of colonoscopy 03/19/2019: Normal repeat in 10 years Hx of section Family History Unknown No problems noted. Other Adopted Social History Smoking and tobacco status: former smoker Quit status (tobacco): has quit using tobacco Year quit tobacco: 2019 - 1-5 ciggs/day Alcohol intake: never Lives independently: Yes Household members: none Housing: Apartment Current occupational status: disabled History of recent travel: No Current gender identity: Female Physical Exam Const: COMMON NORMALS: no acute distress, patient oriented x3 and healthy appearing HENMT: COMMON NORMALS: normocephalic and atraumatic HEAD & SCALP: normocephalic and atraumatic Eye: COMMON NORMALS: Equal, round and reactive pupils present and EOMs intact bilaterally PUPIL: Yes Equal, round and reactive pupils present Neck/C-Spine: COMMON NORMALS: full ROM and supple Chest: COMMONS NORMALS: normal inspection of the chest and normal palpation of entire chest wall Resp: COMMON NORMALS: normal respiratory effort, No retractions, No use of accessory muscles and clear to auscultation bilaterally AUSCULTATION: clear to auscultation bilaterally Cardio: COMMON NORMALS: regular rate, regular rhythm and No murmurs present (Cardio) RATE: regular rate RHYTHM: regular rhythm GI: COMMON NORMALS: Normal to inspection, nondistended, normoactive bowel sounds present, Soft to palpation, non-tender and no masses PALPATION: Yes Soft to palpation Extremity: COMMON NORMALS: normal to inspection and full ROM Neuro: COMMON NORMALS: patient oriented x3, moves all extremities and no focal motor deficits Psych: COMMON NORMALS: mental status grossly normal, Normal thought process present and cooperative THOUGHT PROCESS: Normal thought process present Skin: NARRATIVE SKIN EXAM: Likely spider bite to right forearm slight erythema half dollar size no abscess formation Course Vital Signs: Vital signs: Vital Signs Temperature 98.6 F 09/06/21 22:01 Pulse Rate 74 09/06/21 22:01 Respiratory Rate 18 09/06/21 22:01 Blood Pressure 152/80 09/06/21 22:01 Pulse Oximetry 93 09/06/21 22:01 Oxygen Delivery Me thod 09/06/21 22:01 MDM - General Adult Medical Decision Making Patient presents here with spider bite to her right forearm she does have a mild area of erythema no abscess formation no signs of a brown recluse bite or necrosis at this time we will start her on Bactrim she is to follow-up with PCP and return if worsening she understands agrees to plan. Discharge Plan Discharge Patient Disposition: Home Clinical Impression: Accidental spider bite Condition: Stable Prescriptions: New sulfamethoxazole-trimethoprim [Bactrim DS] 800-160 mg tablet 1 tab PO BID 10 Days Qty: 20 0RF No Action montelukast [Singulair] 10 mg tablet 10 mg PO DAILY levetiracetam 250 mg tablet 250 mg PO BID aspirin [Adult Aspirin Regimen] 81 mg tablet,delayed release (DR/EC) 81 mg PO DAILY pantoprazole [Protonix] 40 mg tablet,delayed release (DR/EC) 40 mg PO QAM albuterol sulfate [ProAir HFA] 90 mcg/actuation HFA aerosol inhaler 2 puff INHALATION Q4H PRN (Reason: Shortness Of Breath) atorvastatin 20 mg tablet 20 mg PO BEDTIME Rx Instructions: takes 6 days/wk budesonide 0.5 mg/2 mL suspension for nebulization 0.5 mg inhalation BID PRN (Reason: Shortness Of Breath Or Wheezing) cetirizine 10 mg capsule 10 mg PO DAILY potassium chloride 20 mEq tablet extended release 20 meq PO DAILY Qty: 90 3RF levothyroxine 150 mcg tablet 150 mcg PO QAM Rx Instructions: Take one tablet Monday thru Monday and skip Monday. bumetanide 2 mg tablet 2 mg PO DAILY metoprolol succinate 50 mg Tablet Extended Release 24 Hr 50 mg PO BID hydroxyzine HCl 10 mg Tablet 10 mg PO TID PRN (Reason: Anxiety) spironolactone 25 mg tablet 25 mg PO DAILY sucralfate 1 gram tablet 1 g PO TID trazodone 50 mg tablet 100 mg PO BEDTIME ergocalciferol (vitamin D2) [Vitamin D2] 1,250 mcg (50,000 unit) capsule 50,000 unit PO Q7D Rx Instructions: on monday duloxetine 60 mg capsule,delayed release(DR/EC) 60 mg PO DAILY hydrocodone-acetaminophen 5-325 mg tablet 1 tab PO Q6H PRN (Reason: pain) Qty: 4 0RF Discharge Orders: Discharge ED (Routine); Ordered 09/06/21 Ordered By: Tenisha Casey Referrals: Татьяна Storm, PEDIATRIC DENTAL HYGIENIST [Primary Care Provider] - Discharge Diet: Advance as tolerated Discharge Activity: Resume usual activity Patient Instructions: Insect Bite or Sting (ED) Coding Level of Care Code ED Farm Boss for Chg Fwd
[2021-09-06] MEDS: sulfamethoxazole-trimeth DS 160-800 mg Tablet 1 TAB PO (22:20)
== END 2021-09-06 22:10 | disposition home or self-care (01) ==
PROVIDERS: Emergency Provider Emergency Medicine; PCP Nurse Practitioner Family
DX: T63.301A Toxic effect of unspecified spider venom, accidental (unintentional), initial encounter (principal); Z79.82 Long term (current) use of aspirin; J44.9 Chronic obstructive pulmonary disease, unspecified; I11.0 Hypertensive heart disease with heart failure; I50.9 Heart failure, unspecified; Z87.891 Personal history of nicotine dependence
CPT/HCPCS: 99283

== ENCOUNTER → 2021-09-29 11:51 | Outpatient (BNVA) | payer MEDICARE, MEDICAID, SELFPAY | PROVIDERS: PCP Nurse Practitioner Family; Visit Provider Internal Medicine Cardiovascular Disease | DX: R42 Dizziness and giddiness (principal); I11.0 Hypertensive heart disease with heart failure; I50.32 Chronic diastolic (congestive) heart failure; I35.1 Nonrheumatic aortic (valve) insufficiency; R07.89 Other chest pain; R06.00 Dyspnea, unspecified; I47.1 Supraventricular tachycardia; G47.30 Sleep apnea, unspecified; F17.200 Nicotine dependence, unspecified, uncomplicated | CPT/HCPCS: 99213; 99214 ==

== ENCOUNTER → 2021-10-07 12:21 | Outpatient (BNVA) | payer MEDICARE, MEDICAID, SELFPAY | PROVIDERS: PCP Nurse Practitioner Family; Referring Provider Specialist; Visit Provider Specialist | DX: R20.0 Anesthesia of skin (principal); R56.9 Unspecified convulsions | CPT/HCPCS: 95860; 99202; 99203 ==

== ENCOUNTER → 2021-10-13 14:09 | Outpatient (BNVA) | payer MEDICARE, MEDICAID, SELFPAY | PROVIDERS: PCP Nurse Practitioner Family; Visit Provider Specialist | DX: M79.642 Pain in left hand (principal); R20.0 Anesthesia of skin | CPT/HCPCS: 99213 ==

== ENCOUNTER 2021-11-01 15:39 | Emergency (ER) | payer MEDICARE, MEDICAID, SELFPAY ==
[2021-11-01 15:44] VITALS: PULSE 93; RESP 18; TEMP 36.8; O2SAT 98; BMI 40.2
--- NOTE | 2021-11-01 15:52 | ECG_ITS ---
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 Measurements Intervals [place] Rate: 84 P: 53 AL: 136 QRS: 41 QRSD: 96 T: 57 QT: 369 QTc: 437 Interpretive Statements SINUS RHYTHM POSSIBLE RIGHT VENTRICULAR CONDUCTION DELAY [RSR (QR) IN V1/V2] Compared to ECG 07/18/2021 00:38:23 No significant changes Electronically Signed On 11-02-2021 0:12:20 CDT by Funmilayo De La Rosa M.D. [email or web address]
--- NOTE | 2021-11-01 15:53 | XRR_ITS ---
PROCEDURE INFORMATION: Exam: XR Chest Exam date and time: 11/01/2021 5:21 PM Age: 55 years old Clinical indication: Cough; Additional info: Cough/chest pain TECHNIQUE: Imaging protocol: Radiologic exam of the chest. Views: 1 view. COMPARISON: CR XR chest 1V portable [id number] 06/19/2021 7:58 PM FINDINGS: Lungs: Unremarkable. No consolidation. Pleural spaces: Unremarkable. No pleural effusion. No pneumothorax. Heart/Mediastinum: Unremarkable. No cardiomegaly. Bones/joints: Unremarkable. XR/XR chest 1V portable [id number] IMPRESSION: No acute findings.
--- NOTE | 2021-11-01 17:06 | W.ED.URI ---
HPI - URI/Sore Throat General: Chief Complaint: Upper Respiratory Infection Stated Complaint: Sent by Jay, chest pain Time Seen by Provider: 11/01/21 17:04 History of Present Illness: 55-year-old female comes in today with difficulty breathing. Patient seeing her primary care today, Татьяна Storm, and was recommended to come to the ER for further evaluation and chest x-ray. On exam patient appears nontoxic. Patient appears in no pain. Patient reports illness for the last 2 to 3 weeks. Patient has a history of heart failure, hypertension, SVT, chronic neck pain, PTSD, hypothyroidism, and GERD. 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 COPD (chronic obstructive pulmonary disease) Diastolic CHF Diastolic heart failure Emphysema, unspecified Essential (primary) hypertension GERD (gastroesophageal reflux disease) Hypothyroidism (acquired) Learning disability Lower extremity edema Moderate aortic regurgitation Pain of hand Seizure disorder SVT (supraventricular tachycardia) Systolic murmur Thyroid function study abnormality Venous stasis Surgical History H/O esophagogastroduodenoscopy 03/19/2019: Normal H/O thyroidectomy History of carpal tunnel surgery History of colonoscopy 03/19/2019: Normal repeat in 10 years Hx of section Family History Unknown No problems noted. Other Adopted Social History Smoking and tobacco status: never smoked Quit status (tobacco): has quit using tobacco Year quit tobacco: 2019 - 1-5 ciggs/day Alcohol intake: never Lives independently: Yes Household members: none Housing: Apartment Current occupational status: disabled History of recent travel: No Current gender identity: Female Physical Exam Const: COMMON NORMALS: alert HENMT: COMMON NORMALS: normocephalic HEAD & SCALP: normocephalic NOSE: Normal nares present THROAT: posterior oropharynx normal Neck/C-Spine: COMMON NORMALS: full ROM Resp: COMMON NORMALS: normal respiratory effort AUSCULTATION: wheezes Cardio: COMMON NORMALS: regular rate and regular rhythm RATE: regular rate RHYTHM: regular rhythm GI: COMMON NORMALS: non-tender Extremity: COMMON NORMALS: no pedal edema Neuro: SENSORIUM/ORIENTATION: Yes alert Skin: COMMON NORMALS: turgor normal GENERAL SKIN EXAM: turgor normal Course Vital Signs: Vital signs: Vital Signs Temperature 98.2 F 11/01/21 15:44 Pulse Rate 80 11/01/21 17:49 Respiratory Rate 16 11/01/21 17:45 Pulse Oximetry 94 11/01/21 17:45 Oxygen Delivery Ok thod 11/01/21 17:45 MDM - URI/Sore Throat Medical Decision Making A 55-year-old female was referred to the ER by her primary care for concerns of shortness of breath after treatment of upper respiratory infection for the last 2 weeks. On exam patient has wheezing throughout her lung odonnell. Patient does have a history of COPD and asthma reported to me. Patient appears nontoxic. Vital signs are normal. Differential diagnosis includes pneumonia, CHF, exacerbation of asthma/COPD. Chest x-ray was unremarkable. Feel the patient probably has an exacerbation of her asthma/COPD. We will start her on nebulizer treatments DuoNeb 4 times a day along with a 5-day course of dexamethasone. Encourage fluids and continuation of albuterol and budesonide inhalers. Patient reported understanding agreed to plan. Lab Data Radiology Impressions Chest X-Ray 11/01/21 15:53 IMPRESSION: No acute findings. Discharge Plan Discharge Patient Disposition: Home Clinical Impression: Diffuse wheezing Dyspnea Qualifiers: Dyspnea type: shortness of breath Qualified Code(s): R06.02 - Shortness of breath Asthma Qualifiers: Asthma severity: moderate Asthma persistence: persistent Asthma complication type: unspecified Qualified Code(s): J45.40 - Moderate persistent asthma, uncomplicated Condition: Stable Prescriptions: New ipratropium-albuterol 0.5 mg-3 mg(2.5 mg base)/3 mL solution for nebulization 3 ml inhalation Q6H Qty: 180 0RF dexamethasone 6 mg tablet 6 mg PO DAILY Qty: 5 0RF No Action montelukast [Singulair] 10 mg tablet 10 mg PO DAILY levetiracetam 250 mg tablet 250 mg PO BID aspirin [Adult Aspirin Regimen] 81 mg tablet,delayed release (DR/EC) 81 mg PO DAILY pantoprazole [Protonix] 40 mg tablet,delayed release (DR/EC) 40 mg PO QAM albuterol sulfate [ProAir HFA] 90 mcg/actuation HFA aerosol inhaler 2 puff INHALATION Q4H PRN (Reason: Shortness Of Breath) atorvastatin 20 mg tablet 20 mg PO BEDTIME Rx Instructions: takes 6 days/wk budesonide 0.5 mg/2 mL suspension for nebulization 0.5 mg inhalation BID PRN (Reason: Shortness Of Breath Or Wheezing) cetirizine 10 mg capsule 10 mg PO DAILY potassium chloride 20 mEq tablet extended release 20 meq PO DAILY Qty: 90 3RF levothyroxine 150 mcg tablet 150 mcg PO QAM Qty: 90 3RF Rx Instructions: Take one tablet Monday thru Monday and skip Monday. bumetanide 2 mg tablet 2 mg PO DAILY metoprolol succinate 50 mg Tablet Extended Release 24 Hr 50 mg PO BID hydroxyzine HCl 10 mg Tablet 10 mg PO TID PRN (Reason: Anxiety) spironolactone 25 mg tablet 25 mg PO DAILY sucralfate 1 gram tablet 1 g PO TID trazodone 50 mg tablet 100 mg PO BEDTIME ergocalciferol (vitamin D2) [Vitamin D2] 1,250 mcg (50,000 unit) capsule 50,000 unit PO Q7D Rx Instructions: on monday duloxetine 60 mg capsule,delayed release(DR/EC) 60 mg PO DAILY hydrocodone-acetaminophen 5-325 mg tablet 1 tab PO Q6H PRN (Reason: pain) Qty: 4 0RF Discharge Orders: Discharge ED (Routine); Ordered 11/01/21 Ordered By: Raul Troncoso Other Ambulatory Orders: DME: Nebulizer with Neb Kit (Order) Location: None Selected Ordered By: Raul Troncoso Referrals: Татьяна Storm, [employer] [Primary Care Provider] - Discharge Diet: Usual diet Discharge Activity: Increase activity as tolerated Patient Instructions: Asthma Exacerbation - Adult, Opioid Safety, Pain Management Activity Restrictions/Additional Instructions: Use nebulizer treatment routinely 4 times a day for the next 7 to 10 days or until follow-up with primary care. Continue with inhalers as prescribed. Take dexamethasone 6 mg daily for the next 5 days. Drink plenty of water with medications. Follow-up with primary care in 1 week. Return to ER for worsening symptoms such as fever greater than 100.4, increasing shortness of breath, or chest pain. Coding Level of Care Code ED Pickle Cutter for Dc Fwlinda Exam Comprehensive
[2021-11-01] MEDS: dexamethasone 10 mg/mL INJ IM (17:33)
[2021-11-01 17:45] VITALS: PULSE 79; RESP 16; O2SAT 94
[2021-11-01] MEDS: ipratropium-albuterol 3 mL Neb INHALATION (17:48)
[2021-11-01 17:49] VITALS: PULSE 80
== END 2021-11-01 18:21 | disposition home or self-care (01) ==
PROVIDERS: Emergency Provider Nurse Practitioner Family; PCP Nurse Practitioner Family
DX: J45.40 Moderate persistent asthma, uncomplicated (principal); Z79.82 Long term (current) use of aspirin; Z87.891 Personal history of nicotine dependence; J44.9 Chronic obstructive pulmonary disease, unspecified; I11.0 Hypertensive heart disease with heart failure; I50.9 Heart failure, unspecified
CPT/HCPCS: 71045; 93005; 94640; 96372; 99284; J1100

== ENCOUNTER 2021-11-16 22:40 | Emergency (ER) | payer MEDICARE, MEDICAID, SELFPAY ==
[2021-11-16 22:52] VITALS: BMI 40.7
[2021-11-16 22:57] VITALS: BP 128/90; PULSE 88; RESP 16; TEMP 37.2; O2SAT 98
--- NOTE | 2021-11-16 23:11 | XRR_ITS ---
PROCEDURE INFORMATION: Exam: XR Chest Exam date and time: 11/16/2021 11:32 PM Age: 55 years old Clinical indication: Patient HX: C/O cough TECHNIQUE: Imaging protocol: Radiologic exam of the chest. Views: 1 view. COMPARISON: CR (CHEST, ) 11/01/2021 5:21 PM FINDINGS: Lungs: The lung volumes are mildly low with mild bronchovascular crowding. Lower lobe opacities likely represent superimposition of breast shadows although atelectasis, inflammation, or infection cannot be excluded. No consolidation. Pleural spaces: Unremarkable. No pleural effusion. No pneumothorax. Heart/Mediastinum: The cardiomediastinal silhouette is stable in appearance. Bones/joints: Unremarkable. XR/XR chest 1V portable [id number] IMPRESSION: 1. Mild peribronchial cuffing can be seen with bronchitis. 2. Otherwise, no acute radiographic findings in the chest.
--- NOTE | 2021-11-16 23:11 | CTR_ITS ---
PROCEDURE INFORMATION: Exam: CT Head Without Contrast Exam date and time: 11/16/2021 11:47 PM Age: 55 years old Clinical indication: Pain; Headache; Patient HX: C/O PENN with dizziness; Additional info: Headache, nausea, headinjury TECHNIQUE: Imaging protocol: Computed tomography of the head without contrast. Radiation optimization: All CT scans at this facility use at least one of these dose optimization techniques: automated exposure control; mA and/or kV adjustment per patient size (includes targeted exams where dose is matched to clinical indication); or iterative reconstruction. COMPARISON: CT head wo con* [id number] 06/19/2021 8:28 PM RADIATION DOSE METRICS: Total DLP (mGy-cm): 1054.18 FINDINGS: Brain: No evidence of acute intracranial hemorrhage. The desai-white matter differentiation is maintained. No mass effect. There is mild crowding at the level of the foramen magnum. Suspected low-lying cerebellar tonsils. Cerebral ventricles: Mild cerebral volume loss and ex vacuo dilation of the ventricles. Minimal nonspecific prominence of the frontal sulci. Paranasal sinuses: Visualized sinuses are unremarkable. No fluid levels. Mastoid air cells: Visualized mastoid air cells are well aerated. Bones/joints: Mild elongation of the shape of the skull. The calvarium appears otherwise grossly unremarkable. No acute fracture. Soft tissues: Unremarkable. CT/CT head wo con* [id number] IMPRESSION: No acute intracranial hemorrhage , mass effect, or midline shift.
--- NOTE | 2021-11-16 23:12 | W.ED.HA ---
HPI - Headache General: Chief Complaint: Headache Stated Complaint: PENN/DIZZY Time Seen by Provider: 11/16/21 22:53 History of Present Illness: 55-year-old female comes in today with complaints of headache and nausea after hitting her head against a wall on Monday. Patient also reports some fever and chills at times. Patient appears nontoxic. Patient appears in no pain. Patient has a history of vertigo, heart failure, hypertension, SVT, posttraumatic stress disease, hypothyroidism, GERD, intellectual disability. 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 COPD (chronic obstructive pulmonary disease) Diastolic CHF Diastolic heart failure Emphysema, unspecified Essential (primary) hypertension GERD (gastroesophageal reflux disease) Hypothyroidism (acquired) Learning disability Lower extremity edema Moderate aortic regurgitation Pain of hand Seizure disorder SVT (supraventricular tachycardia) Systolic murmur Thyroid function study abnormality Venous stasis Surgical History H/O esophagogastroduodenoscopy 03/19/2019: Normal H/O thyroidectomy History of carpal tunnel surgery History of colonoscopy 03/19/2019: Normal repeat in 10 years Hx of section Family History Unknown No problems noted. Other Adopted Social History Smoking and tobacco status: never smoked Quit status (tobacco): has quit using tobacco Year quit tobacco: 2019 - 1-5 ciggs/day Alcohol intake: never Lives independently: Yes Household members: none Housing: Apartment Current occupational status: disabled History of recent travel: No Current gender identity: Female Physical Exam Const: COMMON NORMALS: alert HENMT: HEAD & SCALP: abrasion (Right forehead) Eye: GENERAL EYE: appearance normal, both eyes and all related structures Neck/C-Spine: COMMON NORMALS: full ROM and no meningeal signs Lymph: LYMPHATIC: no lymphadenopathy noted Resp: COMMON NORMALS: normal respiratory effort and clear to auscultation bilaterally AUSCULTATION: clear to auscultation bilaterally Cardio: COMMON NORMALS: regular rate and regular rhythm RATE: regular rate RHYTHM: regular rhythm GI: COMMON NORMALS: Soft to palpation and non-tender PALPATION: Yes Soft to palpation Extremity: COMMON NORMALS: full ROM NARRATIVE EXTREMITY EXAM: Bilateral pedal edema Neuro: SENSORIUM/ORIENTATION: Yes alert MENINGEAL SIGNS: Yes no meningeal signs Skin: COMMON NORMALS: no rashes or lesions noted GENERAL SKIN EXAM: no rashes or lesions noted Course Vital Signs: Vital signs: Vital Signs Temperature 98.9 F 11/16/21 22:57 Pulse Rate 80 11/17/21 01:05 Respiratory Rate 18 11/17/21 01:05 Blood Pressure 120/89 11/17/21 01:05 Pulse Oximetry 98 11/17/21 01:05 Oxygen Delivery Me thod 11/16/21 22:57 Oxygen Flow Rate 3 11/16/21 22:57 MDM - Headache Medical Decision Making Patient comes in [facility] for evaluation after hitting her head against a wall on Monday. Since then patient has had a headache and some dizziness. Patient appears nontoxic. Patient moves all extremities well. Patient is alert and oriented. Vital signs are normal. Differential diagnosis includes but not limited to anxiety, malingering, concussion, intracranial bleeding. CT scan of the head was unremarkable. Chest x-ray was normal. CBC and CMP were unremarkable. Urinalysis showed no signs of infection. Reviewed exam with patient with recommendations for treatment for headache with acetaminophen and rest. Patient reported understanding of care plan and need for follow-up or return to the ER. Lab Data : 11/16/21 00:30 11/17/21 00:30 Radiology Impressions Chest X-Ray 11/16/21 23:11 IMPRESSION: 1. Mild peribronchial cuffing can be seen with bronchitis. 2. Otherwise, no acute radiographic findings in the chest. Head CT 11/16/21 23: IMPRESSION: No acute intracranial hemorrhage , mass effect, or midline shift. Laboratory Results WBC 11.1 10^3/uL (4.0-10.0) H 11/16/21 00:30 RBC 4.46 10^6/uL (4.1-5.3) 11/16/21 00:30 Hgb 12.0 g/dL (11.5-15.3) 11/16/21 00:30 Hct 39.1 % (37.0-47.0) 11/16/21 00:30 MCV 87.7 fl (81-99) 11/16/21 00:30 MCH 26.9 pg (28.0-34.0) L 11/16/21 00: MCHC 30.7 g/dL (30.0-36.0) 11/16/21 00:30 RDW 14.6 % (12.1-15.1) 11/16/21 00:30 Plt Count 277 10^3/cmm (130-400) 11/16/21 00:30 MPV 10.0 fL (7.4-10.4) 11/16/21 00:30 Neut % (Auto) 58.2 % 11/16/21 00:30 Lymph % (Auto) 28.3 % 11/16/21 00:30 [place] % (Auto) 9.2 % 11/16/21 00:30 Eos % (Auto) 3.1 % 11/16/21 00:30 Baso % (Auto) 0.8 % 11/16/21 00:30 Neut # (Auto) 6.50 10^3/uL (1.8-7.7) 11/16/21 00:30 Lymph # (Auto) 3.2 10^3/uL (0.8-4.8) 11/16/21 00:30 [place] # (Auto) 1.0 10^3/uL (0.2-0.9) H 11/16/21 00:30 Eos # (Auto) 0.3 10^3/uL (0.0-0.8) 11/16/21 00:30 Baso # (Auto) 0.1 10^3/uL (0.0-0.1) 11/16/21 00:30 Nucleated RBC % (auto) 0 % 11/16/21 00:30 Nucleated RBCs # 0.0 /100WBC 11/16/21 00:30 Sodium 137 mmol/L (136-145) 11/17/21 00:30 Potassium 3.9 mmol/L (3.5-5.1) 11/17/21 00:30 Chloride 94 mmol/L (98-107) L 11/17/21 00:30 Carbon Dioxide 34 mmol/L (22-29) H 11/17/21 00:30 Anion Gap 12.9 (5-19) 11/17/21 00:30 BUN 16 mg/dL (6-20) 11/17/21 00:30 Creatinine 1.2 mg/dL (0.5-0.9) H 11/17/21 00:30 GFR Calculation 46.5 mL/min (90-130) L 11/17/21 00:30 Glucose 113 mg/dL (65-115) 11/17/21 00:30 Calculated Osmolality 286 mOsm/kg (285-295) 11/17/21 00:30 Calcium 9.6 mg/dL (8.5-10.5) 11/17/21 00:30 Total Bilirubin 1.0 mg/dL (0.15-1.2) 11/17/21 00:30 AST 12 U/L (0-32) 11/17/21 00:30 ALT 10 U/L (0-33) 11/17/21 00:30 Alkaline Phosphatase 83 U/L (35-105) 11/17/21 00:30 Total Protein 6.7 g/dL (6.6-8.7) 11/17/21 00:30 Albumin 3.8 g/dL (3.5-5.2) 11/17/21 00:30 Globulin 2.9 g/dL (1.3-4.6) 11/17/21 00:30 Urine Color Yellow (Yellow) 11/16/21 23:40 Urine Appearance Clear (CLEAR) 11/16/21 23:40 Urine pH 5 (5-7) 11/16/21 23:40 Ur Specific [place] 1.005 (1.005-1.030) 11/16/21 23:40 Urine Protein Neg (Negative) 11/16/21 23:40 Urine Glucose (UA) Norm (Normal) 11/16/21 23:40 Urine Ketones Negative (Negative) 11/16/21 23:40 Urine Blood Neg (Negative) 11/16/21 23:40 Urine Nitrate Negative (Negative) 11/16/21 23:40 Urine Bilirubin Neg (Negative) 11/16/21 23:40 Urine Urobilinogen Norm mg/dL (Negative) 11/16/21 23:40 Ur Leukocyte Esterase Trace (Negative) H 11/16/21 23:40 Urine RBC None /hpf (0-2) 11/16/21 23:40 Urine WBC 0-4 /hpf (0-5) H 11/16/21 23:40 Ur Squamous Epith Cells 0-4 /hpf (0-5) H 11/16/21 23:40 Amorphous Sediment Not Reportable 11/16/21 23:40 Urine Bacteria Trace /hpf (NONE) 11/16/21 23:40 Discharge Plan Discharge Patient Disposition: Home Clinical Impression: Head injury Qualifiers: Encounter type: initial encounter Qualified Code(s): S09.90XA - Unspecified injury of head, initial encounter Abrasion of forehead Qualifiers: Encounter type: initial encounter Qualified Code(s): S00.81XA - Abrasion of other part of head, initial encounter Condition: Stable Prescriptions: No Action montelukast [Singulair] 10 mg tablet 10 mg PO DAILY levetiracetam 250 mg tablet 250 mg PO BID aspirin [Adult Aspirin Regimen] 81 mg tablet,delayed release (DR/EC) 81 mg PO DAILY pantoprazole [Protonix] 40 mg tablet,delayed release (DR/EC) 40 mg PO QAM albuterol sulfate [ProAir HFA] 90 mcg/actuation HFA aerosol inhaler 2 puff INHALATION Q4H PRN (Reason: Shortness Of Breath) atorvastatin 20 mg tablet 20 mg PO BEDTIME Rx Instructions: takes 6 days/wk budesonide 0.5 mg/2 mL suspension for nebulization 0.5 mg inhalation BID PRN (Reason: Shortness Of Breath Or Wheezing) cetirizine 10 mg capsule 10 mg PO DAILY potassium chloride 20 mEq tablet extended release 20 meq PO DAILY Qty: 90 3RF levothyroxine 150 mcg tablet 150 mcg PO QAM Qty: 90 3RF Rx Instructions: Take one tablet Monday thru Monday and skip Monday. bumetanide 2 mg tablet 2 mg PO DAILY metoprolol succinate 50 mg Tablet Extended Release 24 Hr 50 mg PO BID hydroxyzine HCl 10 mg Tablet 10 mg PO TID PRN (Reason: Anxiety) spironolactone 25 mg tablet 25 mg PO DAILY sucralfate 1 gram tablet 1 g PO TID trazodone 50 mg tablet 100 mg PO BEDTIME ergocalciferol (vitamin D2) [Vitamin D2] 1,250 mcg (50,000 unit) capsule 50,000 unit PO Q7D Rx Instructions: on monday duloxetine 60 mg capsule,delayed release(DR/EC) 60 mg PO DAILY ipratropium-albuterol 0.5 mg-3 mg(2.5 mg base)/3 mL solution for nebulization 3 ml inhalation Q6H Qty: 180 0RF dexamethasone 6 mg tablet 6 mg PO DAILY Qty: 5 0RF hydrocodone-acetaminophen 5-325 mg tablet 1 tab PO Q6H PRN (Reason: pain) Qty: 4 0RF Discharge Orders: Discharge ED (Routine); Ordered 11/17/21 Ordered By: Raul Troncoso Referrals: Татьяна Storm FNP [Primary Care Provider] - Discharge Diet: Usual diet Patient Instructions: Abrasion (ED) Activity Restrictions/Additional Instructions: Home and rest. Use acetaminophen as needed for headache or pain. Drink plenty of water with medication. Follow-up with primary care in the morning for further evaluation and treatment as needed. Return to ER for new concerns. Coding Level of Care Code ED Fig Washer for Carmeng Fwd Exam Comprehensive
[2021-11-16 23:49] LABS: Urine Appearance Clear (CLEAR); Urine Color Yellow (Yellow)
[2021-11-16 23:50] LABS: Add Urine Microscopic? YES; Bilirubin Urine Neg (Negative); Blood Urine Neg (Negative); Glucose Urine UA Norm (Normal); Ketones Urine Negative (Negative); Leukocyte Esterase Urine Trace (Negative); Nitrate Urine Negative (Negative); Protein Urine Neg (Negative); Specific Gravity, Urine 1.005 (1.005-1.030); Urobilinogen Urine Norm (Negative); pH Urine 5 (5-7)
[2021-11-17 00:01] LABS: Add Urine Culture? No; Bacteria Urine TRACE /hpf; Squamous Epithelial Cell Urine 0-4 /hpf (0-5); WBC Urine 0-4 /hpf (0-5)
[2021-11-17 00:40] LABS: Basophils # 0.1 10^3/uL (0.0-0.1); Basophils % 0.8 %; Eosinophils # 0.3 10^3/uL (0.0-0.8); Eosinophils % 3.1 %; Hematocrit 39.1 % (37.0-47.0); Lymphocytes # 3.2 10^3/uL (0.8-4.8); Lymphocytes % 28.3 %; Mean Corpuscular HGB Conc 30.7 g/dL (30.0-36.0); Mean Corpuscular Hemoglobin 26.9 pg (28.0-34.0); Mean Corpuscular Volume 87.7 fl (81-99); Monocytes % 9.2 %; Neutrophils % 58.2 %; Nucleated Red Blood Cells % 0 %; Platelet Count 277 10^3/cmm (130-400); Red Blood Count 4.46 10^6/uL (4.1-5.3); Red Cell Distribution Width 14.6 % (12.1-15.1); White Blood Count 11.1 10^3/uL (4.0-10.0)
[2021-11-17 00:55] LABS: Alanine Aminotransferase 10 U/L (0-33); Albumin Level 3.8 g/dL (3.5-5.2); Alkaline Phosphatase 83 U/L (35-105); Anion Gap 12.9 (5-19); Aspartate Amino Transferase 12 U/L (0-32); Blood Urea Nitrogen 16 mg/dL (6-20); Calcium 9.6 mg/dL (8.5-10.5); Carbon Dioxide 34 mmol/L (22-29); Chloride 94 mmol/L (98-107); Globulin 2.9 g/dL (1.3-4.6); Glomerular Filtration Rate 46.5 mL/min (90-130); Glucose 113 mg/dL (65-115); Osmolality Calculated 286 mOsm/kg (285-295); Potassium 3.9 mmol/L (3.5-5.1); Sodium 137 mmol/L (136-145); Total Protein 6.7 g/dL (6.6-8.7)
[2021-11-17 01:05] VITALS: BP 120/89; PULSE 80; RESP 18; O2SAT 98
[2021-11-17] MEDS: acetaminophen 500 mg Tablet 1000 MG PO (01:37)
== END 2021-11-17 01:42 | disposition home or self-care (01) ==
PROVIDERS: Emergency Provider Nurse Practitioner Family; PCP Nurse Practitioner Family
DX: S00.81XA Abrasion of other part of head, initial encounter (principal); S09.90XA Unspecified injury of head, initial encounter; Z79.82 Long term (current) use of aspirin; Z87.891 Personal history of nicotine dependence; J44.9 Chronic obstructive pulmonary disease, unspecified; I11.0 Hypertensive heart disease with heart failure; I50.9 Heart failure, unspecified; W22.09XA Striking against other stationary object, initial encounter
CPT/HCPCS: 70450; 71045; 80053; 81001; 85025; 99285

== ENCOUNTER 2021-12-16 20:07 | Emergency (ER) | payer MEDICARE, MEDICAID, SELFPAY ==
[2021-12-16 20:20] VITALS: BP 138/77; PULSE 73; RESP 18; TEMP 36.8; O2SAT 96; BMI 39.6
[2021-12-16 22:16] LABS: Add Urine Microscopic? NO; Charge for UA Resulting for Rev
[2021-12-16 22:20] LABS: Bilirubin Urine Neg (Negative); Blood Urine Neg (Negative); Glucose Urine UA Norm (Normal); Ketones Urine Negative (Negative); Leukocyte Esterase Urine Negative (Negative); Nitrate Urine Negative (Negative); Protein Urine Neg (Negative); Specific Gravity, Urine 1.015 (1.005-1.030); Urine Appearance Clear (CLEAR); Urine Color Yellow (Yellow); Urobilinogen Urine Norm (Negative); pH Urine 6 (5-7)
[2021-12-16 22:24] VITALS: BP 140/70; PULSE 70; RESP 18; TEMP 36.8; O2SAT 97
[2021-12-16 22:27] LABS: Rapid Strep A Test Negative (Negative)
[2021-12-16 23:16] VITALS: BP 138/72; PULSE 70; RESP 18; TEMP 36.8; O2SAT 98
--- NOTE | 2021-12-17 07:09 | ED_ITS ---
HPI - General Adult General: Chief complaint: General Medical Stated complaint: Sore throat fever n/v Time Seen by Provider: 12/16/21 20:55 History of Present Illness: Patient is in today for sore throat and some nausea. She reports that she has had some nasal congestion and drainage with a sore throat since Monday but it worsened today. She reports that she has had some nausea has vomited 2 times today. She denies any fever or chills. She was seen on Monday this week and tested for strep pharyngitis but that was negative. She reports because her throat is getting worse she is concerned again. 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 COPD (chronic obstructive pulmonary disease) Diastolic CHF Diastolic heart failure Emphysema, unspecified Essential (primary) hypertension GERD (gastroesophageal reflux disease) Hypothyroidism (acquired) Learning disability Lower extremity edema Moderate aortic regurgitation Pain of hand Seizure disorder SVT (supraventricular tachycardia) Systolic murmur Thyroid function study abnormality Venous stasis Surgical History H/O esophagogastroduodenoscopy 03/19/2019: Normal H/O thyroidectomy History of carpal tunnel surgery History of colonoscopy 03/19/2019: Normal repeat in 10 years Hx of section Family History Unknown No problems noted. Other Adopted Social History Smoking and tobacco status: never smoked Quit status (tobacco): has quit using tobacco Year quit tobacco: 2018-5 ciggs/day Alcohol intake: never Lives independently: Yes Household members: none Housing: Apartment Current occupational status: disabled History of recent travel: No Current gender identity: Female Physical Exam Const: COMMON NORMALS: no acute distress, patient oriented x3 and alert HENMT: COMMON NORMALS: TM's normal bilaterally FACE & SINUS: sinuses nontender TYMPANIC MEMBRANE: TM's normal bilaterally THROAT: posterior oropharynx normal, uvula midline and postnasal drainage Lymph: LYMPHATIC: lymphadenopathy (Anterior cervical) Resp: COMMON NORMALS: normal respiratory effort, No use of accessory muscles and clear to auscultation bilaterally AUSCULTATION: clear to auscultation bilaterally Cardio: COMMON NORMALS: regular rate, regular rhythm, S1 normal heart sound present and S2 normal heart sound present RATE: regular rate RHYTHM: regular rhythm HEART SOUNDS: S1 normal heart sound present and S2 normal heart sound present GI: COMMON NORMALS: Normal to inspection, nondistended, normoactive bowel sounds present, Soft to palpation and non-tender PALPATION: Yes Soft to palpation : COMMON NORMALS: Yes no CVA tenderness BLADDER/KIDNEY EXAM: Yes no CVA tenderness Back/Pelvis: COMMON NORMALS: no CVA tenderness Neuro: COMMON NORMALS: patient oriented x3 SENSORIUM/ORIENTATION: Yes alert Course Vital Signs: Vital signs: Vital Signs Temperature 98.2 F 12/16/21 23:16 Pulse Rate 70 12/16/21 23:16 Respiratory Rate 18 12/16/21 23:16 Blood Pressure 138/72 12/16/21 23:16 Pulse Oximetry 98 12/16/21 23:16 Oxygen Delivery Me thod 12/16/21 22:24 MDM - General Adult Medical Decision Making Patient is in today for nasal congestion and drainage with sore throat since Monday. She reports that her throat is worsening. She has been tested on Monday for strep pharyngitis and was negative. Patient has been afebrile. Rapid strep in ER is negative. Physical exam is consistent with anterior cervical lymphadenopathy. Given patient's significant discomfort with the lymphadenopathy I will go ahead and give a short burst of steroids which will also help with her postnasal drainage. Advised patient that this is likely of viral pharyngitis versus allergic rhinitis with postnasal drainage. We discussed conservative treatments at home. Follow-up with primary care provider. Return to the ER as needed for new or worsening symptoms. Lab Data Laboratory Results Urine Color Yellow (Yellow) 12/16/21 22:10 Urine Appearance Clear (CLEAR) 12/16/21 22:10 Urine pH 6 (5-7) 12/16/21 22:10 Ur Specific [place] 1.015 (1.005-1.030) 12/16/21 22:10 Urine Protein Neg (Negative) 12/16/21 22:10 Urine Glucose (UA) Norm (Normal) 12/16/21 22:10 Urine Ketones Negative (Negative) 12/16/21 22:10 Urine Blood Neg (Negative) 12/16/21 22:10 Urine Nitrate Negative (Negative) 12/16/21 22:10 Urine Bilirubin Neg (Negative) 12/16/21 22:10 Urine Urobilinogen Norm mg/dL (Negative) 12/16/21 22:10 Ur Leukocyte Esterase Negative (Negative) 12/16/21 22:10 Group A Strep Rapid Negative (Negative) 12/16/21 22:10 Discharge Plan Discharge Patient Disposition: Home Clinical Impression: Acute viral pharyngitis, Lymphadenopathy Condition: Stable Prescriptions: New prednisone 20 mg tablet 40 mg PO DAILY 3 Days Qty: 6 0RF No Action montelukast [Singulair] 10 mg tablet 10 mg PO DAILY levetiracetam 250 mg tablet 250 mg PO BID aspirin [Adult Aspirin Regimen] 81 mg tablet,delayed release (DR/EC) 81 mg PO DAILY pantoprazole [Protonix] 40 mg tablet,delayed release (DR/EC) 40 mg PO QAM albuterol sulfate [ProAir HFA] 90 mcg/actuation HFA aerosol inhaler 2 puff INHALATION Q4H PRN (Reason: Shortness Of Breath) atorvastatin 20 mg tablet 20 mg PO BEDTIME Rx Instructions: takes 6 days/wk budesonide 0.5 mg/2 mL suspension for nebulization 0.5 mg inhalation BID PRN (Reason: Shortness Of Breath Or Wheezing) cetirizine 10 mg capsule 10 mg PO DAILY potassium chloride 20 mEq tablet extended release 20 meq PO DAILY Qty: 90 3RF levothyroxine 150 mcg tablet 150 mcg PO QAM Qty: 90 3RF Rx Instructions: Take one tablet Monday thru Monday and skip Monday. bumetanide 2 mg tablet 2 mg PO DAILY metoprolol succinate 50 mg Tablet Extended Release 24 Hr 50 mg PO BID hydroxyzine HCl 10 mg Tablet 10 mg PO TID PRN (Reason: Anxiety) spironolactone 25 mg tablet 25 mg PO DAILY sucralfate 1 gram tablet 1 g PO TID trazodone 50 mg tablet 100 mg PO BEDTIME ergocalciferol (vitamin D2) [Vitamin D2] 1,250 mcg (50,000 unit) capsule 50,000 unit PO Q7D Rx Instructions: on monday duloxetine 60 mg capsule,delayed release(DR/EC) 60 mg PO DAILY ipratropium-albuterol 0.5 mg-3 mg(2.5 mg base)/3 mL solution for nebulization 3 ml inhalation Q6H Qty: 180 0RF dexamethasone 6 mg tablet 6 mg PO DAILY Qty: 5 0RF hydrocodone-acetaminophen 5-325 mg tablet 1 tab PO Q6H PRN (Reason: pain) Qty: 4 0RF Discharge Orders: Discharge ED (Routine); Ordered 12/16/21 Ordered By: Carine Funes Referrals: Татьяна Storm TEACHER OF [employer] [Primary Care Provider] - Discharge Diet: Usual diet Discharge Activity: Resume usual activity Patient Instructions: Pharyngitis (ED) Activity Restrictions/Additional Instructions: Take medication as directed. Warm salt water gargles. f/u with PCP as needed. Return to ED as needed for new or worsening symptoms. Coding Level of Care Code ED Insulation Blower for Dc Serrato
== END 2021-12-16 23:15 | disposition home or self-care (01) ==
PROVIDERS: Emergency Medicine; Emergency Provider Nurse Practitioner Family; PCP Nurse Practitioner Family
DX: J02.8 Acute pharyngitis due to other specified organisms (principal); R59.1 Generalized enlarged lymph nodes; Z79.82 Long term (current) use of aspirin; J44.9 Chronic obstructive pulmonary disease, unspecified; I11.0 Hypertensive heart disease with heart failure; I50.30 Unspecified diastolic (congestive) heart failure; Z87.891 Personal history of nicotine dependence
CPT/HCPCS: 81003; 87081; 87880; 99283

== ENCOUNTER 2022-01-06 21:11 | Emergency (ER) | payer MEDICARE, MEDICAID, SELFPAY ==
[2022-01-06 21:24] VITALS: BP 141/79; PULSE 95; RESP 17; TEMP 38.4; O2SAT 92; BMI 44.6
--- NOTE | 2022-01-06 21:43 | XRR_ITS ---
PROCEDURE INFORMATION: Exam: XR Chest Exam date and time: 01/06/2022 10:05 PM Age: 56 years old Clinical indication: Patient HX: C/O fever TECHNIQUE: Imaging protocol: Radiologic exam of the chest. Views: 1 view. COMPARISON: CR (CHEST, ) 11/16/2021 11:32 PM FINDINGS: Lungs: Unremarkable. No consolidation. Pleural spaces: Unremarkable. No pleural effusion. No pneumothorax. Heart/Mediastinum: Unremarkable. No cardiomegaly. Bones/joints: Unremarkable. XR/XR chest 1V portable [id number] IMPRESSION: No acute findings.
--- NOTE | 2022-01-06 21:44 | ECG_ITS ---
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 Measurements Intervals [place] Rate: 92 P: 37 [place]: 119 QRS: 23 QRSD: 93 T: 36 QT: 318 QTc: 394 Interpretive Statements SINUS RHYTHM WITH SHORT [place] INTERVAL POSSIBLE RIGHT VENTRICULAR CONDUCTION DELAY [RSR (QR) IN V1/V2] Compared to ECG 11/01/2021 15:56:41 Short [place] interval now present Electronically Signed On 01-08-2022 7:50:43 HAND HEEL SEAT FITTER by Amanda Bourgeois M.D. [id number]
[2022-01-06 23:04] LABS: Basophils # 0.1 10^3/uL (0.0-0.1); Basophils % 0.7 %; Eosinophils # 0.2 10^3/uL (0.0-0.8); Eosinophils % 2.2 %; Hematocrit 43.1 % (37.0-47.0); Hemoglobin 13.1 g/dL (11.5-15.3); Lymphocytes # 0.8 10^3/uL (0.8-4.8); Mean Corpuscular HGB Conc 30.4 g/dL (30.0-36.0); Mean Corpuscular Hemoglobin 27.1 pg (28.0-34.0); Mean Corpuscular Volume 89.2 fl (81-99); Monocytes # 0.8 10^3/uL (0.2-0.9); Monocytes % 8.6 %; Neutrophils # 7.19 10^3/uL (1.8-7.7); Neutrophils % 79.2 %; Nucleated Red Blood Cells % 0 %; Platelet Count 267 10^3/cmm (130-400); Red Blood Count 4.83 10^6/uL (4.1-5.3); Red Cell Distribution Width 14.5 % (12.1-15.1); White Blood Count 9.1 10^3/uL (4.0-10.0)
[2022-01-06 23:24] LABS: Alanine Aminotransferase 11 U/L (0-33); Albumin Level 4.2 g/dL (3.5-5.2); Alkaline Phosphatase 90 U/L (35-105); Anion Gap 14.2 (5-19); Aspartate Amino Transferase 15 U/L (0-32); Blood Urea Nitrogen 12 mg/dL (6-20); Carbon Dioxide 33 mmol/L (22-29); Chloride 93 mmol/L (98-107); Globulin 2.9 g/dL (1.3-4.6); Glomerular Filtration Rate 57.1 mL/min (90-130); Glucose 129 mg/dL (65-115); Osmolality Calculated 283 mOsm/kg (285-295); Potassium 4.2 mmol/L (3.5-5.1); Sodium 136 mmol/L (136-145); Total Bilirubin 1.1 mg/dL (0.15-1.2); Total Protein 7.1 g/dL (6.6-8.7)
== END 2022-01-07 00:50 | disposition left against medical advice (07) ==
PROVIDERS: Emergency Medicine; Emergency Provider Family Medicine; PCP Nurse Practitioner Family
DX: Z53.21 Procedure and treatment not carried out due to patient leaving prior to being seen by health care provider (principal); R50.9 Fever, unspecified
CPT/HCPCS: 36415; 71045; 80053; 85025; 93005; 99284

== ENCOUNTER 2022-01-11 15:47 | Emergency (ER) | payer MEDICARE, MEDICAID, SELFPAY ==
[2022-01-11 15:48] VITALS: BP 146/83; PULSE 86; RESP 18; TEMP 36.4; O2SAT 96; BMI 26.6
[2022-01-11 15:51] VITALS: BP 140/83; PULSE 80; O2SAT 99
--- NOTE | 2022-01-11 15:53 | W.ED.CHESTPA ---
HPI - Chest Pain General: Chief Complaint: Chest Pain Stated Complaint: CP Time Seen by Provider: 01/11/22 15:53 History of Present Illness: Ms. Pierre is a 56-year-old lady with history of COPD with intermittent home oxygen use, diastolic heart failure, hypertension, hyperlipidemia presented to the emergency department due to shortness of breath and chest discomfort. Onset of symptoms was approximately 4 weeks ago and gradual without known specific provoking events. She has right sided chest pain with occasional radiation of the back and shortness of breath. No exertional component or other typical cardiac features. Does have a cough which is mildly productive. No fevers or other specific infectious symptoms. Intensity symptoms moderate. Course has persisted. No other specific changes in health, exacerbating, or alleviating factors identified. 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 COPD (chronic obstructive pulmonary disease) Diastolic CHF Diastolic heart failure Emphysema, unspecified Essential (primary) hypertension GERD (gastroesophageal reflux disease) Hypothyroidism (acquired) Learning disability Lower extremity edema Moderate aortic regurgitation Pain of hand Seizure disorder SVT (supraventricular tachycardia) Systolic murmur Thyroid function study abnormality Venous stasis Surgical History H/O esophagogastroduodenoscopy 03/19/2019: Normal H/O thyroidectomy History of carpal tunnel surgery History of colonoscopy 03/19/2019: Normal repeat in 10 years Hx of section Family History Unknown No problems noted. Other Adopted Social History Smoking and tobacco status: never smoked Quit status (tobacco): has quit using tobacco Year quit tobacco: 2019 - 1-5 ciggs/day Alcohol intake: never Lives independently: Yes Household members: none Housing: Apartment Current occupational status: disabled History of recent travel: No Current gender identity: Female Physical Exam Const: COMMON NORMALS: alert GENERAL APPEARANCE: cooperative and well developed HENMT: COMMON NORMALS: normocephalic and atraumatic HEAD & SCALP: normocephalic and atraumatic THROAT: posterior oropharynx normal Eye: COMMON NORMALS: conjunctivae normal CONJUNCTIVA: Yes conjunctivae normal SCLERA: sclerae normal Neck/C-Spine: COMMON NORMALS: supple GENERAL: Yes trachea midline Resp: COMMON NORMALS: clear to auscultation bilaterally EFFORT & INSPECTION: Yes able to speak in complete sentences AUSCULTATION: clear to auscultation bilaterally Cardio: COMMON NORMALS: regular rate and regular rhythm RATE: regular rate RHYTHM: regular rhythm GI: COMMON NORMALS: Soft to palpation PALPATION: Yes Soft to palpation and No Tenderness to palpation present (GI) Extremity: GENERAL: Yes normal exam except as noted and No edema Neuro: COMMON NORMALS: moves all extremities SENSORIUM/ORIENTATION: Yes alert and No Orientation impaired Psych: COMMON NORMALS: mental status grossly normal and Normal thought process present THOUGHT PROCESS: Normal thought process present Course Vital Signs: Vital signs: Vital Signs Temperature 97.6 F 01/11/22 15:48 Pulse Rate 65 01/11/22 19:52 Respiratory Rate 20 H 01/11/22 19:52 Blood Pressure 151/82 01/11/22 19:52 Pulse Oximetry 91 01/11/22 19:52 Oxygen Delivery Me thod 01/11/22 18:52 Oxygen Flow Rate 3 01/11/22 18:52 MDM - Chest Pain Medical Decision Making This 56-year-old lady presenting with shortness of breath and chest discomfort. Exam as above. EKG shows sinus rhythm with no STEMI. Hematologic panel and metabolic panel similar to prior. D-dimer is negative. 2-hour delta troponin is negative. Viral studies positive for COVID. Chest x-ray negative for acute infiltrate or pneumothorax Most likely etiology of patient's symptoms is COVID-19. Patient is nontoxic appearing and not requiring more oxygen. Feels improved with steroids and breathing treatment. The results of ED evaluation were discussed with the patient including prescriptions and/or symptomatic cares (if applicable) including appropriate and responsible use, followup plan, and return precautions. The patient verbalized understanding and felt safe for discharge. Medical Records I reviewed the patient's medical records. Lab Data I reviewed the patient's lab results. 01/11/22 15:50 01/11/22 15:50 Radiology Impressions Chest X-Ray 01/11/22 16:10 IMPRESSION: No acute findings. Laboratory Results WBC 8.0 10^3/uL (4.0-10.0) 01/11/22 15:50 RBC 5.11 10^6/uL (4.1-5.3) 01/11/22 15:50 Hgb 14.0 g/dL (11.5-15.3) 01/11/22 15:50 Hct 45.7 % (37.0-47.0) 01/11/22 15:50 MCV 89.4 fl (81-99) 01/11/22 15:50 MCH 27.4 pg (28.0-34.0) L 01/11/22 15:50 MCHC 30.6 g/dL (30.0-36.0) 01/11/22 15:50 RDW 14.4 % (12.1-15.1) 01/11/22 15:50 Plt Count 322 10^3/cmm (130-400) 01/11/22 15:50 MPV 11.0 fL (7.4-10.4) H 01/11/22 15:50 Neut % (Auto) 49.9 % 01/11/22 15:50 Lymph % (Auto) 34.8 % 01/11/22 15:50 [place] % (Auto) 9.0 % 01/11/22 15:50 Eos % (Auto) 5.3 % 01/11/22 15:50 Baso % (Auto) 0.6 % 01/11/22 15:50 Neut # (Auto) 3.99 10^3/uL (1.8-7.7) 01/11/22 15:50 Lymph # (Auto) 2.8 10^3/uL (0.8-4.8) 01/11/22 15:50 [place] # (Auto) 0.7 10^3/uL (0.2-0.9) 01/11/22 15:50 Eos # (Auto) 0.4 10^3/uL (0.0-0.8) 01/11/22 15:50 Baso # (Auto) 0.1 10^3/uL (0.0-0.1) 01/11/22 15:50 Nucleated RBC % (auto) 0 % 01/11/22 15:50 Nucleated RBCs # 0.0 /100WBC 01/11/22 15:50 D-Dimer 0.36 ug/mIFEU (0-0.59) 01/11/22 15:50 Sodium 137 mmol/L (136-145) 01/11/22 15:50 Potassium 4.0 mmol/L (3.5-5.1) 01/11/22 15:50 Chloride 94 mmol/L (98-107) L 01/11/22 15:50 Carbon Dioxide 32 mmol/L (22-29) H 01/11/22 15:50 Anion Gap 15.0 (5-19) 01/11/22 15:50 BUN 15 mg/dL (6-20) 01/11/22 15:50 Creatinine 0.9 mg/dL (0.5-0.9) 01/11/22 15:50 GFR Calculation 64.5 mL/min (90-130) L 01/11/22 15:50 Glucose 107 mg/dL (65-115) 01/11/22 15:50 Calculated Osmolality 285 mOsm/kg (285-295) 01/11/22 15:50 Calcium 9.6 mg/dL (8.5-10.5) 01/11/22 15:50 Total Bilirubin 1.4 mg/dL (0.15-1.2) H 01/11/22 15:50 AST 17 U/L (0-32) 01/11/22 15:50 ALT 11 U/L (0-33) 01/11/22 15:50 Alkaline Phosphatase 90 U/L (35-105) 01/11/22 15:50 Troponin T Baseline 29 ng/L (0-10) H 01/11/22 15:50 Troponin T 120 Minute 31.76 ng/L (0-10) H 01/11/22 18:18 Delta Troponin T 2.76 ABS# (0-10) 01/11/22 18:18 NT-Pro-B Natriuret Pep 82 pg/mL (0-125) 01/11/22 15:50 Total Protein 7.4 g/dL (6.6-8.7) 01/11/22 15:50 Albumin 4.3 g/dL (3.5-5.2) 01/11/22 15:50 Globulin 3.1 g/dL (1.3-4.6) 01/11/22 15:50 Lipase 21 U/L (13-60) 01/11/22 15:50 Nasal Influ A H1 2009 PCR Not detected (NOT DETECT) 01/11/22 16:37 Adenovirus (PCR) Not detected (NOT DETECT) 01/11/22 16:37 C. pneumoniae DNA (PCR) Not detected (NOT DETECT) 01/11/22 16:37 Coronavirus 229E (PCR) Not detected (NOT DETECT) 01/11/22 16:37 Human Metapneumovir PCR Not detected (NOT DETECT) 01/11/22 16:37 Influenza A (H1) PCR Not detected (NOT DETECT) 01/11/22 16:37 Influenza A (H3) PCR Not detected (NOT DETECT) 01/11/22 16:37 Influenza Type A (PCR) Not detected (NOT DETECT) 01/11/22 16:37 Influenza Type B (PCR) Not detected (NOT DETECT) 01/11/22 16:37 M. pneumoniae (PCR) Not detected (NOT DETECT) 01/11/22 16:37 Parainfluenza 1 (PCR) Not detected (NOT DETECT) 01/11/22 16:37 Parainfluenza 2 (PCR) Not detected (NOT DETECT) 01/11/22 16:37 Parainfluenza 3 (PCR) Not detected (NOT DETECT) 01/11/22 16:37 Parainfluenza 4 (PCR) Not detected (NOT DETECT) 01/11/22 16:37 RSV Type A (PCR) Not detected (NOT DETECT) 01/11/22 16:37 RSV Type B (PCR) Not detected (NOT DETECT) 01/11/22 16:37 Entero/Rhino (PCR) Not detected (NOT DETECT) 01/11/22 16:37 SARS-CoV-2 (PCR) Detected (NOT DETECT) A 01/11/22 16:37 Discharge Plan Discharge Patient Disposition: Home Clinical Impression: Chest pain, COVID-19 Condition: Stable Prescriptions: New Decadron 6 mg tablet 6 mg PO DAILY Qty: 14 0RF albuterol sulfate 90 mcg/actuation HFA aerosol inhaler 2 inh inhalation Q4H PRN (Reason: shortness of breath or wheezing) Qty: 8.5 0RF No Action montelukast [Singulair] 10 mg tablet 10 mg PO DAILY levetiracetam 250 mg tablet 250 mg PO BID aspirin [Adult Aspirin Regimen] 81 mg tablet,delayed release (DR/EC) 81 mg PO QAM pantoprazole [Protonix] 40 mg tablet,delayed release (DR/EC) 40 mg PO QAM albuterol sulfate [ProAir HFA] 90 mcg/actuation HFA aerosol inhaler 2 puff INHALATION Q6H PRN (Reason: Shortness Of Breath) atorvastatin 20 mg tablet 20 mg PO BEDTIME budesonide 0.5 mg/2 mL suspension for nebulization 0.5 mg inhalation BID PRN (Reason: Shortness Of Breath Or Wheezing) potassium chloride 20 mEq tablet extended release 20 meq PO DAILY Qty: 90 3RF bumetanide 2 mg tablet 2 mg PO DAILY metoprolol succinate 50 mg Tablet Extended Release 24 Hr 50 mg PO BID hydroxyzine HCl 10 mg Tablet 10 mg PO TID PRN (Reason: Anxiety) spironolactone 25 mg tablet 25 mg PO DAILY sucralfate 1 gram tablet 1 g PO TID trazodone 50 mg tablet 100 mg PO BEDTIME duloxetine 60 mg capsule,delayed release(DR/EC) 60 mg PO DAILY cetirizine 10 mg tablet 10 mg PO DAILY levothyroxine 125 mcg tablet 125 mcg PO DAILY ipratropium-albuterol 0.5 mg-3 mg(2.5 mg base)/3 mL solution for nebulization 3 ml inhalation Q6H PRN (Reason: unknown) Discharge Orders: Discharge ED (Routine); Ordered 01/11/22 Ordered By: Ken Barnes Referrals: Татьяна Storm FINANCIAL DATA ANALYST [Primary Care Provider] - Discharge Diet: Usual diet Discharge Activity: Increase activity as tolerated Patient Instructions: Chest Pain (ED), COVID-19 (Coronavirus Disease 2019) (ED) Activity Restrictions/Additional Instructions: Thank you for visiting the emergency department. You were seen evaluated for chest pain. The exact cause your symptoms is unclear though likely related to COVID-19. I will prescribe steroids and antibiotics. Please also use your albuterol metered-dose inhaler 2 puffs every 4 hours for 24 hours followed by 2 puffs every 6 hours for 24 hours followed by 2 puffs every 8 hours for 24 hours and then return to the normal schedule. Please follow-up with your primary care provider. Return to the emergency department for worsening symptoms or anything else that you are concerned about a feel needs emergency department evaluation. Coding Level of Care Code ED Ambulatory Care Nurse for Dc Serrato
--- NOTE | 2022-01-11 16:10 | XRR_ITS ---
PROCEDURE INFORMATION: Exam: XR Chest Exam date and time: 01/11/2022 4:16 PM Age: 56 years old Clinical indication: Shortness of breath; Additional info: SOB TECHNIQUE: Imaging protocol: Radiologic exam of the chest. Views: 1 view. COMPARISON: CR (CHEST, ) 01/06/2022 10:05 PM FINDINGS: Lungs: Unremarkable. No consolidation. Pleural spaces: Unremarkable. No pleural effusion. No pneumothorax. Heart/Mediastinum: Unremarkable. No cardiomegaly. Bones/joints: Unremarkable. XR/XR chest 1V portable [id number] IMPRESSION: No acute findings.
--- NOTE | 2022-01-11 16:11 | ECG_ITS ---
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 Measurements Intervals [place] Rate: 68 P: 57 [place]: 140 QRS: 21 QRSD: 104 T: 42 QT: 404 QTc: 430 Interpretive Statements SINUS RHYTHM POSSIBLE RIGHT VENTRICULAR CONDUCTION DELAY [RSR (QR) IN V1/V2] POSSIBLE LATERAL MYOCARDIAL INFARCTION , PROBABLY OLD [30 ms Q WAVE IN I/aVL/V5/V6] Compared to ECG 01/06/2022 22:16:31 Myocardial infarct finding now present Short [place] interval no longer present Electronically Signed On 01-11-2022 18:48:06 SPA THERAPIST by Amanda Bourgeois M.D. [id number]
[2022-01-11 16:20] VITALS: PULSE 84; RESP 18; O2SAT 99
[2022-01-11] MEDS: ipratropium-albuterol 3 mL Neb INHALATION (16:21)
--- NOTE | 2022-01-11 16:53 | PC.PHAR ---
pt [facility]-waiting on med list to be faxed-pt states she doesnt take vit d2 [id number] units q7d because she can no longer afford it ext med history shows last filled 10/26/21 28d/s-medications entered are meds that show have been filled recently on ext med history and what was on previous entered med list-notes are made in the pharmacy with last fill dates
[2022-01-11 17:05] LABS: D Dimer 0.36 ug/mIFEU (0-0.59)
[2022-01-11 17:14] LABS: Basophils # 0.1 10^3/uL (0.0-0.1); Basophils % 0.6 %; Eosinophils # 0.4 10^3/uL (0.0-0.8); Eosinophils % 5.3 %; Hematocrit 45.7 % (37.0-47.0); Lymphocytes # 2.8 10^3/uL (0.8-4.8); Lymphocytes % 34.8 %; Mean Corpuscular HGB Conc 30.6 g/dL (30.0-36.0); Mean Corpuscular Hemoglobin 27.4 pg (28.0-34.0); Mean Corpuscular Volume 89.4 fl (81-99); Monocytes # 0.7 10^3/uL (0.2-0.9); Neutrophils # 3.99 10^3/uL (1.8-7.7); Neutrophils % 49.9 %; Nucleated Red Blood Cells % 0 %; Platelet Count 322 10^3/cmm (130-400); Red Blood Count 5.11 10^6/uL (4.1-5.3); Red Cell Distribution Width 14.4 % (12.1-15.1); Troponin(5th) Baseline 29 ng/L (0-10)
[2022-01-11 17:21] VITALS: BP 119/77; PULSE 70; O2SAT 95
[2022-01-11 17:23] LABS: Alanine Aminotransferase 11 U/L (0-33); Albumin Level 4.3 g/dL (3.5-5.2); Alkaline Phosphatase 90 U/L (35-105); Aspartate Amino Transferase 17 U/L (0-32); Blood Urea Nitrogen 15 mg/dL (6-20); Calcium 9.6 mg/dL (8.5-10.5); Carbon Dioxide 32 mmol/L (22-29); Chloride 94 mmol/L (98-107); Globulin 3.1 g/dL (1.3-4.6); Glomerular Filtration Rate 64.5 mL/min (90-130); Glucose 107 mg/dL (65-115); Lipase 21 U/L (13-60); NT Pro B Type Natriuretic Pept 82 pg/mL (0-125); Osmolality Calculated 285 mOsm/kg (285-295); Sodium 137 mmol/L (136-145); Total Bilirubin 1.4 mg/dL (0.15-1.2); Total Protein 7.4 g/dL (6.6-8.7)
[2022-01-11 18:52] VITALS: PULSE 64; O2SAT 97
[2022-01-11 18:53] LABS: Troponin 5 2HR 31.76 ng/L (0-10)
[2022-01-11 18:55] LABS: Troponin 5 2HR Delta 2.76 ABS# (0-10)
[2022-01-11 19:15] LABS: Adenovirus Not Detected (NOT DETECT); Chlamydia Pneumoniae Not Detected (NOT DETECT); Coronavirus 229E,HKU1,NL63,OC4 Not Detected (NOT DETECT); Human Metapneumovirus Not Detected (NOT DETECT); Human Rhinovirus/Enterovirus Not Detected (NOT DETECT); Influenza A Not Detected (NOT DETECT); Influenza A H1 Not Detected (NOT DETECT); Influenza A H1-2009 Not Detected (NOT DETECT); Influenza A H3 Not Detected (NOT DETECT); Influenza B Not Detected (NOT DETECT); Mycoplasma Pneumoniae Not Detected (NOT DETECT); Parainfluenza Virus Type 1 Not Detected (NOT DETECT); Parainfluenza Virus Type 2 Not Detected (NOT DETECT); Parainfluenza Virus Type 3 Not Detected (NOT DETECT); Parainfluenza Virus Type 4 Not Detected (NOT DETECT); Respiratory Syncytial Virus A Not Detected (NOT DETECT); Respiratory Syncytial Virus B Not Detected (NOT DETECT); SARS-COV-2 Detected (NOT DETECT)
[2022-01-11 19:52] VITALS: BP 151/82; PULSE 65; RESP 20; O2SAT 91
--- NOTE | 2022-01-11 22:11 | ECG_ITS ---
[facility] Test Date: 2022-01-11 Pat Name: Crystal Pierre Department: Room: Gender: Female Treasury Accountant: : 1965 Requested By: Ken Barnes Order Number: [id number] Khanna MD: Amanda Bourgeois M.D. Measurements Intervals [place] Rate: 66 P: 68 [place]: 139 QRS: 56 QRSD: 97 T: 63 QT: 419 QTc: 440 Interpretive Statements SINUS RHYTHM Compared to ECG 01/11/2022 17:13:27 Myocardial infarct finding no longer present Electronically Signed On 01-12-2022 7:47:47 PAPER INSERTER by Amanda Bourgeois M.D. [id number]
== END 2022-01-11 19:55 | disposition home or self-care (01) ==
PROVIDERS: Emergency Provider Emergency Medicine; PCP Nurse Practitioner Family
DX: R07.9 Chest pain, unspecified (principal); U07.1 COVID-19; Z79.82 Long term (current) use of aspirin; Z87.891 Personal history of nicotine dependence; J44.9 Chronic obstructive pulmonary disease, unspecified; I11.0 Hypertensive heart disease with heart failure; I50.30 Unspecified diastolic (congestive) heart failure
CPT/HCPCS: 36415; 71045; 80053; 83690; 83880; 84484; 85025; 85378; 87486; 87581; 87633; 93005; 94640; 96374; 99285; J2930

== ENCOUNTER 2022-01-23 00:43 | Emergency (ER) | payer MEDICARE, MEDICAID, SELFPAY ==
[2022-01-23 00:47] VITALS: BP 120/86; PULSE 97; RESP 22; TEMP 36.8; O2SAT 95; BMI 39.4
--- NOTE | 2022-01-23 00:55 | ECG_ITS ---
[facility] Test Date: 2022-01-23 Pat Name: Crystal Pierre Department: Room: Gender: Female Electrical Engineering Designer: : 1965 Requested By: Odilon Johnson Order Number: [id number] Reading MD: Scott Singer Measurements Intervals [place] Rate: 73 P: 58 [place]: 117 QRS: 34 QRSD: 94 T: 49 QT: 374 QTc: 412 Interpretive Statements SINUS RHYTHM WITH SHORT [place] INTERVAL INTERPRETATION BASED ON A DEFAULT AGE OF 40 YEARS Compared to ECG 01/23/2022 00:50:56 No significant changes Electronically Signed On 01-23-2022 15:11:09 OPTOMECHANICAL ENGINEER by Scott Singer [id number]
--- NOTE | 2022-01-23 00:55 | XRR_ITS ---
PROCEDURE INFORMATION: Exam: XR Chest Exam date and time: 01/23/2022 1:07 AM Age: 56 years old Clinical indication: Chest wall pain; Additional info: Cp TECHNIQUE: Imaging protocol: Radiologic exam of the chest. Views: 1 view. COMPARISON: CR XR chest 1V portable [id number] 01/11/2022 4:16 PM FINDINGS: Lungs: Lungs are clear. Pleural spaces: There is no pleural effusion or pneumothorax. Heart/Mediastinum: Cardiomediastinal contours are unremarkable. Bones/joints: Bones are unremarkable. XR/XR chest 1V portable [id number] IMPRESSION: No acute findings.
[2022-01-23 01:06] LABS: Basophils % 0.2 %; Hematocrit 45.8 % (37.0-47.0); Hemoglobin 14.4 g/dL (11.5-15.3); Lymphocytes # 1.5 10^3/uL (0.8-4.8); Lymphocytes % 12.5 %; Mean Corpuscular HGB Conc 31.4 g/dL (30.0-36.0); Mean Corpuscular Hemoglobin 27.7 pg (28.0-34.0); Mean Corpuscular Volume 88.2 fl (81-99); Mean Platelet Volume 10.2 fL (7.4-10.4); Monocytes # 0.7 10^3/uL (0.2-0.9); Monocytes % 5.8 %; Neutrophils % 80.6 %; Nucleated Red Blood Cells % 0 %; Platelet Count 375 10^3/cmm (130-400); Red Blood Count 5.19 10^6/uL (4.1-5.3); Red Cell Distribution Width 14.4 % (12.1-15.1)
[2022-01-23 01:22] LABS: Troponin(5th) Baseline 18 ng/L (0-10)
--- NOTE | 2022-01-23 01:24 | W.ED.CHESTPA ---
HPI - Chest Pain General: Chief Complaint: Chest Pain Stated Complaint: CHEST PAIN Time Seen by Provider: 01/23/22 00:50 Source: patient History of Present Illness: 56-year-old female well-known to the service. She presents with chest pain which she says awoke her this morning. She is complaining of shortness of breath as well. No vomiting or nausea. She notes that she had some pain on and off last night and yesterday. She denies significant cough. She has a history of a recent COVID diagnosis although she notes that she was not terribly ill with the disease. MD complaint: chest pain Pertinent past history: other Onset (ago): minute(s) Timing of current episode: constant Prior episodes: Yes Onset: during rest and awoke with symptoms Pain location: substernal Pain radiation: right arm and left arm Quality: heaviness and sharp Relieving factors: nothing Exacerbating factors: nothing Associated symptoms: Reports dyspnea and leg edema; Deny abdominal pain, diaphoresis, fever(s), nausea, palpitations or vomiting Review of Systems Const: Denies: fever(s) or diaphoresis Eyes: Denies: change in vision ENMT: Denies: throat pain Card: Reports: chest pain; Denies: palpitations Resp: Reports: dyspnea; Denies: productive cough or non-productive cough GI: Denies: abdominal pain, nausea or vomiting Neuro: Denies: headache(s) PFSH ED PFSH: Medical History Asthma Atypical chest pain Cervical radiculopathy Chest pain 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 COPD (chronic obstructive pulmonary disease) Diastolic CHF Diastolic heart failure Emphysema, unspecified Essential (primary) hypertension GERD (gastroesophageal reflux disease) Hypothyroidism (acquired) Learning disability Lower extremity edema Moderate aortic regurgitation Pain of hand Seizure disorder SVT (supraventricular tachycardia) Systolic murmur Thyroid function study abnormality Venous stasis Surgical History H/O esophagogastroduodenoscopy 03/19/2019: Normal H/O thyroidectomy History of carpal tunnel surgery History of colonoscopy 03/19/2019: Normal repeat in 10 years Hx of section Family History Unknown No problems noted. Other Adopted Social History Smoking and tobacco status: never smoked Quit status (tobacco): has quit using tobacco Year quit tobacco: 2019 - 1-5 ciggs/day Alcohol intake: never Lives independently: Yes Household members: none Housing: Apartment Current occupational status: disabled History of recent travel: No Current gender identity: Female Physical Exam Const: GENERAL APPEARANCE: cooperative and anxious; not ill appearing NUTRITIONAL APPEARANCE: obese HENMT: COMMON NORMALS: normocephalic, atraumatic and Normal external nose present HEAD & SCALP: normocephalic and atraumatic NOSE: Normal external nose present and Normal nares present Eye: COMMON NORMALS: Equal, round and reactive pupils present and EOMs intact bilaterally PUPIL: Yes Equal, round and reactive pupils present Neck/C-Spine: GENERAL: Yes trachea midline Chest: CHEST: Yes Symmetrical chest wall rise Resp: COMMON NORMALS: normal respiratory effort and No use of accessory muscles AUSCULTATION: wheezes (mild bilat) Cardio: COMMON NORMALS: regular rate and regular rhythm PALPATION: heave RATE: regular rate RHYTHM: regular rhythm GI: COMMON NORMALS: Normal to inspection, nondistended, normoactive bowel sounds present and Soft to palpation PALPATION: Yes Soft to palpation and Yes Tenderness to palpation present (GI) (epiastric) Extremity: GENERAL: Yes edema (mild) Neuro: CELIO COMA SCALE: document GCS findings Celio coma scale eye opening: Spontaneous Celio coma scale verbal response: Orientated Celio coma scale motor response: Obey commands Celio coma scale total score: 15 Course Vital Signs: Vital signs: Vital Signs Temperature 98.3 F 01/23/22 00:47 Pulse Rate 68 01/23/22 03:15 Respiratory Rate 19 H 01/23/22 03:15 Blood Pressure 123/92 01/23/22 03:15 Pulse Oximetry 94 01/23/22 03:15 Oxygen Delivery Me thod 01/23/22 03:15 MDM - Chest Pain Medical Decision Making 56-year-old female presenting with chest discomfort. Only minimal to mild cough. Some shortness of breath. On the monitor saturations have been 94%. Heart rate is 68. Blood pressure is 123/92. EKG shows a normal sinus rhythm with normal axis. OR interval is mildly short. Rate is 80. No ST or T wave changes are present. Chest x-ray is nonacute. White blood cell count is 12. CBC otherwise not remarkable. BUN is 28. First troponin 18. 2-hour troponin fell by 1.9. She was given morphine for her chest discomfort with improvement. She will be allowed discharge home. Lab Data 01/23/22 00:40 12 00:40 Radiology Impressions Chest X-Ray 01/23/22 00:55 IMPRESSION: No acute findings. Laboratory Results WBC 12.0 10^3/uL (4.0-10.0) H 01/23/22 00:40 RBC 5.19 10^6/uL (4.1-5.3) 01/23/22 00:40 Hgb 14.4 g/dL (11.5-15.3) 01/23/22 00:40 Hct 45.8 % (37.0-47.0) 01/23/22 00:40 MCV 88.2 fl (81-99) 01/23/22 00:40 MCH 27.7 pg (28.0-34.0) L 01/23/22 00:40 MCHC 31.4 g/dL (30.0-36.0) 01/23/22 00:40 RDW 14.4 % (12.1-15.1) 01/23/22 00:40 Plt Count 375 10^3/cmm (130-400) 01/23/22 00:40 MPV 10.2 fL (7.4-10.4) 01/23/22 00:40 Neut % (Auto) 80.6 % 01/23/22 00:40 Lymph % (Auto) 12.5 % 01/23/22 00:40 [place] % (Auto) 5.8 % 01/23/22 00:40 Eos % (Auto) 0.0 % 01/23/22 00:40 Baso % (Auto) 0.2 % 01/23/22 00:40 Neut # (Auto) 9.70 10^3/uL (1.8-7.7) H 01/23/22 00:40 Lymph # (Auto) 1.5 10^3/uL (0.8-4.8) 01/23/22 00:40 [place] # (Auto) 0.7 10^3/uL (0.2-0.9) 01/23/22 00:40 Eos # (Auto) 0.0 10^3/uL (0.0-0.8) 01/23/22 00:40 Baso # (Auto) 0.0 10^3/uL (0.0-0.1) 01/23/22 00:40 Nucleated RBC % (auto) 0 % 01/23/22 00:40 Nucleated RBCs # 0.0 /100WBC 01/23/22 00:40 Sodium 138 mmol/L (136-145) 01/23/22 00:40 Potassium 3.8 mmol/L (3.5-5.1) 01/23/22 00:40 Chloride 94 mmol/L (98-107) L 01/23/22 00:40 Carbon Dioxide 31 mmol/L (22-29) H 01/23/22 00:40 Anion Gap 16.8 (5-19) 01/23/22 00:40 BUN 28 mg/dL (6-20) H 01/23/22 00:40 Creatinine 1.1 mg/dL (0.5-0.9) H 01/23/22 00:40 GFR Calculation 51.2 mL/min (90-130) L 01/23/22 00:40 Glucose 162 mg/dL (65-115) H 01/23/22 00:40 Calculated Osmolality 295 mOsm/kg (285-295) 01/23/22 00:40 Calcium 9.3 mg/dL (8.5-10.5) 01/23/22 00:40 Total Bilirubin 0.9 mg/dL (0.15-1.2) 01/23/22 00:40 AST 13 U/L (0-32) 01/23/22 00:40 ALT 17 U/L (0-33) 01/23/22 00:40 Alkaline Phosphatase 71 U/L (35-105) 01/23/22 00:40 Troponin T Baseline 18 ng/L (0-10) H 01/23/22 00:40 Troponin T 120 Minute 16.09 ng/L (0-10) H 01/23/22 02:33 Delta Troponin T -1.91 ABS# (0-10) L 01/23/22 02:33 NT-Pro-B Natriuret Pep 313 pg/mL (0-125) H 01/23/22 00:40 Total Protein 6.8 g/dL (6.6-8.7) 01/23/22 00:40 Albumin 4.3 g/dL (3.5-5.2) 01/23/22 00:40 Globulin 2.5 g/dL (1.3-4.6) 01/23/22 00:40 Discharge Plan Discharge Patient Disposition: Home Clinical Impression: Chest pain Condition: Stable Prescriptions: No Action montelukast [Singulair] 10 mg tablet 10 mg PO DAILY levetiracetam 250 mg tablet 250 mg PO BID aspirin [Adult Aspirin Regimen] 81 mg tablet,delayed release (DR/EC) 81 mg PO QAM pantoprazole [Protonix] 40 mg tablet,delayed release (DR/EC) 40 mg PO QAM albuterol sulfate [ProAir HFA] 90 mcg/actuation HFA aerosol inhaler 2 puff INHALATION Q6H PRN (Reason: Shortness Of Breath) atorvastatin 20 mg tablet 20 mg PO BEDTIME budesonide 0.5 mg/2 mL suspension for nebulization 0.5 mg inhalation BID PRN (Reason: Shortness Of Breath Or Wheezing) potassium chloride 20 mEq tablet extended release 20 meq PO DAILY Qty: 90 3RF bumetanide 2 mg tablet 2 mg PO DAILY metoprolol succinate 50 mg Tablet Extended Release 24 Hr 50 mg PO BID hydroxyzine HCl 10 mg Tablet 10 mg PO TID PRN (Reason: Anxiety) spironolactone 25 mg tablet 25 mg PO DAILY sucralfate 1 gram tablet 1 g PO TID trazodone 50 mg tablet 100 mg PO BEDTIME duloxetine 60 mg capsule,delayed release(DR/EC) 60 mg PO DAILY cetirizine 10 mg tablet 10 mg PO DAILY levothyroxine 125 mcg tablet 125 mcg PO DAILY ipratropium-albuterol 0.5 mg-3 mg(2.5 mg base)/3 mL solution for nebulization 3 ml inhalation Q6H PRN (Reason: unknown) Decadron 6 mg tablet 6 mg PO DAILY Qty: 14 0RF albuterol sulfate 90 mcg/actuation HFA aerosol inhaler 2 inh inhalation Q4H PRN (Reason: shortness of breath or wheezing) Qty: 8.5 0RF Discharge Orders: Discharge ED (Routine); Ordered 01/23/22 Ordered By: Odilon Gama Referrals: Татьяна Storm, [employer] [Primary Care Provider] - 4-7 days Patient Instructions: Chest Pain (ED) Coding Level of Care Code ED News Anchor for Chg Fwd Exam Comprehensive
[2022-01-23 01:29] LABS: Alanine Aminotransferase 17 U/L (0-33); Albumin Level 4.3 g/dL (3.5-5.2); Alkaline Phosphatase 71 U/L (35-105); Anion Gap 16.8 (5-19); Aspartate Amino Transferase 13 U/L (0-32); Blood Urea Nitrogen 28 mg/dL (6-20); Calcium 9.3 mg/dL (8.5-10.5); Carbon Dioxide 31 mmol/L (22-29); Chloride 94 mmol/L (98-107); Globulin 2.5 g/dL (1.3-4.6); Glomerular Filtration Rate 51.2 mL/min (90-130); Glucose 162 mg/dL (65-115); NT Pro B Type Natriuretic Pept 313 pg/mL (0-125); Osmolality Calculated 295 mOsm/kg (285-295); Potassium 3.8 mmol/L (3.5-5.1); Sodium 138 mmol/L (136-145); Total Bilirubin 0.9 mg/dL (0.15-1.2); Total Protein 6.8 g/dL (6.6-8.7)
[2022-01-23 02:05] VITALS: BP 131/75; PULSE 73; RESP 20; O2SAT 93
[2022-01-23 02:08] VITALS: RESP 23; O2SAT 93
[2022-01-23] MEDS: ondansetron 2 mg/ML SDV 2 mL 4 MG IVP (02:08)
[2022-01-23] MEDS: morphine 4 mg/mL SDV 1 mL IVP (02:08)
[2022-01-23 02:45] VITALS: BP 136/85; PULSE 75; RESP 23; O2SAT 100
--- NOTE | 2022-01-23 02:55 | ECG_ITS ---
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
[2022-01-23 02:59] LABS: Troponin 5 2HR 16.09 ng/L (0-10)
[2022-01-23 03:08] LABS: Troponin 5 2HR Delta -1.91 ABS# (0-10)
[2022-01-23 03:15] VITALS: BP 123/92; PULSE 68; RESP 19; O2SAT 94
[2022-01-23 03:21] VITALS: BP 123/92; PULSE 68; RESP 19; O2SAT 94
== END 2022-01-23 03:29 | disposition home or self-care (01) ==
PROVIDERS: Emergency Provider Emergency Medicine; PCP Nurse Practitioner Family
DX: R07.9 Chest pain, unspecified (principal); Z79.82 Long term (current) use of aspirin; I11.0 Hypertensive heart disease with heart failure; I50.30 Unspecified diastolic (congestive) heart failure; J44.9 Chronic obstructive pulmonary disease, unspecified; Z87.891 Personal history of nicotine dependence
CPT/HCPCS: 71045; 80053; 83880; 84484; 85025; 93005; 96374; 96375; 99285; J2270; J2405

== ENCOUNTER 2022-02-06 19:08 | Emergency (ER) | payer MEDICARE, MEDICAID, SELFPAY ==
[2022-02-06 19:10] VITALS: BP 150/96; PULSE 85; RESP 22; TEMP 36.7; O2SAT 98; BMI 39.6
--- NOTE | 2022-02-06 19:18 | XRR_ITS ---
PROCEDURE INFORMATION: Exam: XR Chest Exam date and time: 02/06/2022 7:44 PM Age: 56 years old Clinical indication: Pain; Chest pressure; Additional info: Cp TECHNIQUE: Imaging protocol: Radiologic exam of the chest. Views: 1 view. COMPARISON: CR (CHEST, ) 01/23/2022 1:07 AM FINDINGS: Lungs: Lungs are clear bilaterally. Pleural spaces: No pleural effusion. No pneumothorax. Heart/Mediastinum: Stable mild enlargement of the cardiac silhouette. Mediastinal contours are unremarkable. Vasculature: Stable vascular calcifications in the aorta. Bones/joints: Unremarkable for age. XR/XR chest 1V portable [id number] IMPRESSION: 1. No acute cardiopulmonary process. 2. Incidental/nonacute findings are listed in the report.
--- NOTE | 2022-02-06 19:21 | W.ED.CHESTPA ---
HPI - Chest Pain General: Chief Complaint: Chest Pain Stated Complaint: CP Time Seen by Provider: 02/06/22 19:11 History of Present Illness: 56-year-old female presents with chest pain. Patient reports that she has been having chest pain for quite a while that little bit different today because it goes to her back. She does not really describe what the chest pain is like. She denies any shortness of breath, fever, chills, nausea vomiting or any other systemic complaints. Associated symptoms: Reports syncope; Deny abdominal pain, dyspnea, fever(s), nausea, palpitations or vomiting Review of Systems Const: Denies: fever(s) or chills Eyes: Denies: change in vision or eye discomfort ENMT: Denies: throat pain or ear or mastoid pain Card: Reports: chest pain, swelling of feet/ankles and syncope; Denies: palpitations or irregular heart rhythm Resp: Denies: dyspnea or productive cough GI: Denies: abdominal pain, nausea or vomiting : Denies: dysuria or urinary frequency Neuro: Denies: headache(s) or dizziness PFS ED PFSH: Medical History Asthma Atypical chest pain Cervical radiculopathy Chest pain 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 COPD (chronic obstructive pulmonary disease) Diastolic CHF Diastolic heart failure Emphysema, unspecified Essential (primary) hypertension GERD (gastroesophageal reflux disease) Hypothyroidism (acquired) Learning disability Lower extremity edema Moderate aortic regurgitation Pain of hand Seizure disorder SVT (supraventricular tachycardia) Systolic murmur Thyroid function study abnormality Venous stasis Surgical History H/O esophagogastroduodenoscopy 03/19/2019: Normal H/O thyroidectomy History of carpal tunnel surgery History of colonoscopy 03/19/2019: Normal repeat in 10 years Hx of section Family History Unknown No problems noted. Other Adopted Social History Smoking and tobacco status: never smoked Quit status (tobacco): has quit using tobacco Year quit tobacco: 2019 - 1-5 ciggs/day Alcohol intake: never Lives independently: Yes Household members: none Housing: Apartment Current occupational status: disabled History of recent travel: No Current gender identity: Female Physical Exam Const: COMMON NORMALS: no acute distress and alert GENERAL APPEARANCE: appears older than stated age HENMT: COMMON NORMALS: normocephalic HEAD & SCALP: normal to inspection and normocephalic Chest: COMMONS NORMALS: normal inspection of the chest and normal palpation of entire chest wall Resp: COMMON NORMALS: normal respiratory effort and No retractions Cardio: COMMON NORMALS: regular rate and regular rhythm RATE: regular rate RHYTHM: regular rhythm GI: COMMON NORMALS: Soft to palpation and non-tender PALPATION: Yes Soft to palpation Extremity: NARRATIVE EXTREMITY EXAM: bilateral lower ext chronic lymphededma Neuro: COMMON NORMALS: CN's II-XII intact bilaterally and no focal motor deficits SENSORIUM/ORIENTATION: Yes alert Psych: COMMON NORMALS: cooperative and denies hallucinations Course Vital Signs: Vital signs: Vital Signs Temperature 98.0 F 02/06/22 19:10 Pulse Rate 83 02/06/22 21:15 Respiratory Rate 14 02/06/22 21:15 Blood Pressure 150/96 02/06/22 21:15 Pulse Oximetry 100 02/06/22 21:15 Oxygen Delivery Me thod 02/06/22 21:15 Oxygen Flow Rate 2 02/06/22 21:15 MDM - Chest Pain Medical Decision Making Patient with chronic chest pain. Patient was stable chest x-ray, stable baseline troponin and EKGs with no significant change. Patient should follow with her primary care provider. She is stable and discharged home Lab Data 02/06/22 20:20 02/06/22 20:20 Radiology Impressions Chest X-Ray 02/06/22 19:18 IMPRESSION: 1. No acute cardiopulmonary process. 2. Incidental/nonacute findings are listed in the report. Laboratory Results WBC 9.7 10^3/uL (4.0-10.0) 02/06/22 20:20 Corrected WBC Cancelled 02/06/22 19:30 RBC 4.60 10^6/uL (4.1-5.3) 02/06/22 20:20 Hgb 13.1 g/dL (11.5-15.3) 02/06/22 20:20 Hct 42.2 % (37.0-47.0) 02/06/22 20:20 MCV 91.7 fl (81-99) 02/06/22 20:20 MCH 28.5 pg (28.0-34.0) 02/06/22 20:20 MCHC 31.0 g/dL (30.0-36.0) 02/06/22 20:20 RDW 15.0 % (12.1-15.1) 02/06/22 20:20 Plt Count 233 10^3/cmm (130-400) 02/06/22 20:20 MPV 9.7 fL (7.4-10.4) 02/06/22 20:20 Gran % Cancelled 02/06/22 19:30 Neut % (Auto) 56.8 % 02/06/22 20:20 Lymph % (Auto) 28.2 % 02/06/22 20:20 [place] % (Auto) 9.1 % 02/06/22 20:20 Eos % (Auto) 4.5 % 02/06/22 20:20 Baso % (Auto) 0.9 % 02/06/22 20:20 Neut # (Auto) 5.49 10^3/uL (1.8-7.7) 02/06/22 20:20 Lymph # (Auto) 2.7 10^3/uL (0.8-4.8) 02/06/22 20:20 [place] # (Auto) 0.9 10^3/uL (0.2-0.9) 02/06/22 20:20 Eos # (Auto) 0.4 10^3/uL (0.0-0.8) 02/06/22 20:20 Baso # (Auto) 0.1 10^3/uL (0.0-0.1) 02/06/22 20:20 Absolute Gran (auto) Cancelled 02/06/22 19:30 Nucleated RBC % (auto) 0 % 02/06/22 20:20 Nucleated RBCs # 0.0 /100WBC 02/06/22 20:20 Sodium 137 mmol/L (136-145) 02/06/22 20:20 Potassium 4.2 mmol/L (3.5-5.1) 02/06/22 20:20 Chloride 93 mmol/L (98-107) L 02/06/22 20:20 Carbon Dioxide 34 mmol/L (22-29) H 02/06/22 20:20 Anion Gap 14.2 (5-19) 02/06/22 20:20 BUN 16 mg/dL (6-20) 02/06/22 20:20 Creatinine 0.8 mg/dL (0.5-0.9) 02/06/22 20:20 GFR Calculation 73.9 mL/min (90-130) L 02/06/22 20:20 Glucose 93 mg/dL (65-115) 02/06/22 20:20 Calculated Osmolality 285 mOsm/kg (285-295) 02/06/22 20:20 Calcium 9.7 mg/dL (8.5-10.5) 02/06/22 20:20 Total Bilirubin 0.7 mg/dL (0.15-1.2) 02/06/22 20:20 AST 19 U/L (0-32) 02/06/22 20:20 ALT 20 U/L (0-33) 02/06/22 20:20 Alkaline Phosphatase 84 U/L (35-105) 02/06/22 20:20 Troponin T Baseline 25 ng/L (0-10) H 02/06/22 20:20 Total Protein 6.5 g/dL (6.6-8.7) L 02/06/22 20:20 Albumin 4.0 g/dL (3.5-5.2) 02/06/22 20:20 Globulin 2.5 g/dL (1.3-4.6) 02/06/22 20:20 Lipase 28 U/L (13-60) 02/06/22 20:20 EKG Data EKG 1: I personally reviewed and interpreted this EKG as follows: EKG interpretation date: 02/06/22 EKG interpretation time: 19:16 Prior EKG tracings: available for review Interpretation: hr 82, nsr, UT 126, QRS 93 no acute changes Discharge Plan Discharge Patient Disposition: Home Clinical Impression: Chronic chest pain Condition: Stable Prescriptions: No Action montelukast [Singulair] 10 mg tablet 10 mg PO DAILY levetiracetam 250 mg tablet 250 mg PO BID aspirin [Adult Aspirin Regimen] 81 mg tablet,delayed release (DR/EC) 81 mg PO QAM pantoprazole [Protonix] 40 mg tablet,delayed release (DR/EC) 40 mg PO QAM albuterol sulfate [ProAir HFA] 90 mcg/actuation HFA aerosol inhaler 2 puff INHALATION Q6H PRN (Reason: Shortness Of Breath) atorvastatin 20 mg tablet 20 mg PO BEDTIME budesonide 0.5 mg/2 mL suspension for nebulization 0.5 mg inhalation BID PRN (Reason: Shortness Of Breath Or Wheezing) potassium chloride 20 mEq tablet extended release 20 meq PO DAILY Qty: 90 3RF bumetanide 2 mg tablet 2 mg PO DAILY metoprolol succinate 50 mg Tablet Extended Release 24 Hr 50 mg PO BID hydroxyzine HCl 10 mg Tablet 10 mg PO TID PRN (Reason: Anxiety) spironolactone 25 mg tablet 25 mg PO DAILY sucralfate 1 gram tablet 1 g PO TID trazodone 50 mg tablet 100 mg PO BEDTIME duloxetine 60 mg capsule,delayed release(DR/EC) 60 mg PO DAILY cetirizine 10 mg tablet 10 mg PO DAILY levothyroxine 125 mcg tablet 125 mcg PO DAILY ipratropium-albuterol 0.5 mg-3 mg(2.5 mg base)/3 mL solution for nebulization 3 ml inhalation Q6H PRN (Reason: unknown) Decadron 6 mg tablet 6 mg PO DAILY Qty: 14 0RF albuterol sulfate 90 mcg/actuation HFA aerosol inhaler 2 inh inhalation Q4H PRN (Reason: shortness of breath or wheezing) Qty: 8.5 0RF Discharge Orders: Discharge ED (Routine); Ordered 02/06/22 Ordered By: Nikita Ugalde Referrals: Татьяна Storm, PRESCHO[employer] PARAPROFESSIONAL [Primary Care Provider] - Discharge Diet: Usual diet Discharge Activity: Resume usual activity Patient Instructions: Chest Pain (ED), Opioid Safety, Pain Management Activity Restrictions/Additional Instructions: Please follow-up with your primary care provider and your health and wellness coach for continued management of your chest pain and recheck of your symptoms. Return to the ER as needed Coding Level of Care Code ED Interlocking Machine Operator for Dc Fwlinda Exam Comprehensive
[2022-02-06 19:29] VITALS: BP 150/96; PULSE 86; RESP 18; O2SAT 99
[2022-02-06] MEDS: aspirin 81 mg Chew Tablet 324 MG PO (19:59)
[2022-02-06 20:35] LABS: Basophils # 0.1 10^3/uL (0.0-0.1); Basophils % 0.9 %; Eosinophils # 0.4 10^3/uL (0.0-0.8); Eosinophils % 4.5 %; Hematocrit 42.2 % (37.0-47.0); Hemoglobin 13.1 g/dL (11.5-15.3); Lymphocytes # 2.7 10^3/uL (0.8-4.8); Lymphocytes % 28.2 %; Mean Corpuscular Hemoglobin 28.5 pg (28.0-34.0); Mean Corpuscular Volume 91.7 fl (81-99); Mean Platelet Volume 9.7 fL (7.4-10.4); Monocytes # 0.9 10^3/uL (0.2-0.9); Monocytes % 9.1 %; Neutrophils # 5.49 10^3/uL (1.8-7.7); Neutrophils % 56.8 %; Nucleated Red Blood Cells % 0 %; Platelet Count 233 10^3/cmm (130-400); White Blood Count 9.7 10^3/uL (4.0-10.0)
[2022-02-06 20:36] VITALS: BP 150/96; PULSE 85; RESP 19; O2SAT 100
[2022-02-06 20:50] LABS: Alanine Aminotransferase 20 U/L (0-33); Alkaline Phosphatase 84 U/L (35-105); Aspartate Amino Transferase 19 U/L (0-32); Blood Urea Nitrogen 16 mg/dL (6-20); Calcium 9.7 mg/dL (8.5-10.5); Carbon Dioxide 34 mmol/L (22-29); Chloride 93 mmol/L (98-107); Globulin 2.5 g/dL (1.3-4.6); Glomerular Filtration Rate 73.9 mL/min (90-130); Glucose 93 mg/dL (65-115); Lipase 28 U/L (13-60); Osmolality Calculated 285 mOsm/kg (285-295); Sodium 137 mmol/L (136-145); Total Bilirubin 0.7 mg/dL (0.15-1.2); Total Protein 6.5 g/dL (6.6-8.7)
[2022-02-06 20:52] LABS: Anion Gap 14.2 (5-19); Potassium 4.2 mmol/L (3.5-5.1)
[2022-02-06 20:55] LABS: Troponin(5th) Baseline 25 ng/L (0-10)
[2022-02-06 21:15] VITALS: BP 150/96; PULSE 83; RESP 14; O2SAT 100
== END 2022-02-06 21:40 | disposition home or self-care (01) ==
PROVIDERS: Emergency Provider Student in an Organized Health Care Education/Training Program; PCP Nurse Practitioner Family
DX: G89.29 Other chronic pain (principal); R07.9 Chest pain, unspecified; Z79.82 Long term (current) use of aspirin; Z87.891 Personal history of nicotine dependence; J44.9 Chronic obstructive pulmonary disease, unspecified; I11.0 Hypertensive heart disease with heart failure; I50.30 Unspecified diastolic (congestive) heart failure
CPT/HCPCS: 36415; 71045; 80053; 83690; 84484; 85025; 99285

== ENCOUNTER 2022-03-11 18:41 | Emergency (ER) | payer MEDICARE, MEDICAID, SELFPAY ==
--- NOTE | 2022-03-11 18:45 | XRR_ITS ---
PROCEDURE INFORMATION: Exam: XR Chest Exam date and time: 03/11/2022 7:05 PM Age: 56 years old Clinical indication: Pain; Chest pressure; Additional info: Cp 1 day, SOB TECHNIQUE: Imaging protocol: Radiologic exam of the chest. Views: 1 view. COMPARISON: CR (CHEST, ) 02/06/2022 7:44 PM FINDINGS: Lungs: Unremarkable. No consolidation. Pleural spaces: Unremarkable. No pleural effusion. No pneumothorax. Heart/Mediastinum: Unremarkable. No cardiomegaly. Bones/joints: Unremarkable. XR/XR chest 1V portable [id number] IMPRESSION: No acute findings.
[2022-03-11 18:54] VITALS: BMI 39.4
[2022-03-11 19:02] VITALS: BP 131/98; PULSE 70; RESP 18; TEMP 36.4; O2SAT 95
--- NOTE | 2022-03-11 19:13 | W.ED.CHESTPA ---
HPI - Chest Pain General: Chief Complaint: Chest Pain Stated Complaint: CHEST PAIN Time Seen by Provider: 03/11/22 18:45 History of Present Illness: Patient is a 56-year-old female comes to the ED via EMS for chest pain. Patient has a history of CHF, COPD and hypertension. She is on 2 L of oxygen at home continuously. While in route EMS gave patient 325 mg of aspirin and a dose of nitro. Patient says the nitro and aspirin have not helped her chest pain at all. She states that her chest pain started just prior to arrival when she was walking to the kitchen. She rates the pain currently a 7 out of 10 and its on the left side of her chest. Endorses shortness of breath. Denies any nausea/vomiting, abdominal pain, bladder or bowel symptoms. Associated symptoms: Reports dyspnea; Deny abdominal pain, fever(s), nausea, palpitations or vomiting Review of Systems Const: Denies: fever(s), chills or fatigue Eyes: Denies: change in vision or eye discomfort ENMT: Denies: throat pain, odynophagia, nasal discharge or nasal congestion Card: Reports: chest pain; Denies: palpitations, edema, swelling of feet/ankles, dyspnea on exertion or orthopnea Resp: Reports: dyspnea; Denies: productive cough or non-productive cough GI: Denies: abdominal pain, nausea, vomiting, diarrhea, constipation or hematochezia : Denies: flank pain, dysuria or hematuria Musc: Denies: neck pain, back pain or extremity swelling Skin/Breast: Denies: rash or new lesions Neuro: Denies: headache(s), numbness in extremities or weakness in extremities PFS ED PFSH: Medical History Asthma Atypical chest pain Cervical radiculopathy Chest pain 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 COPD (chronic obstructive pulmonary disease) Diastolic CHF Diastolic heart failure Emphysema, unspecified Essential (primary) hypertension GERD (gastroesophageal reflux disease) Hypothyroidism (acquired) Learning disability Lower extremity edema Moderate aortic regurgitation Pain of hand Seizure disorder SVT (supraventricular tachycardia) Systolic murmur Thyroid function study abnormality Venous stasis Surgical History H/O esophagogastroduodenoscopy 03/19/2019: Normal H/O thyroidectomy History of carpal tunnel surgery History of colonoscopy 03/19/2019: Normal repeat in 10 years Hx of section Family History Unknown No problems noted. Other Adopted Social History Smoking and tobacco status: never smoked Quit status (tobacco): has quit using tobacco Year quit tobacco: 2018 - 1-5 ciggs/day Alcohol intake: never Lives independently: Yes Household members: none Housing: Apartment Current occupational status: disabled History of recent travel: No Current gender identity: Female Physical Exam Const: COMMON NORMALS: no acute distress, patient oriented x3 and alert HENMT: COMMON NORMALS: normocephalic HEAD & SCALP: normocephalic MOUTH: Normal oral and palatal mucosa present THROAT: posterior oropharynx normal and uvula midline Neck/C-Spine: COMMON NORMALS: supple GENERAL: Yes normal visual inspection Resp: COMMON NORMALS: normal respiratory effort, No retractions, No use of accessory muscles and clear to auscultation bilaterally AUSCULTATION: clear to auscultation bilaterally Cardio: COMMON NORMALS: regular rate, regular rhythm, S1 normal heart sound present, S2 normal heart sound present, No gallops present (Cardio), No clicks present (Cardio), No murmurs present (Cardio) and Peripheral pulses 2+ throughout RATE: regular rate RHYTHM: regular rhythm HEART SOUNDS: S1 normal heart sound present and S2 normal heart sound present PERIPHERAL PULSES: Peripheral pulses 2+ throughout GI: COMMON NORMALS: Normal to inspection, nondistended, normoactive bowel sounds present, Soft to palpation, non-tender and no masses PALPATION: Yes Soft to palpation : COMMON NORMALS: Yes no CVA tenderness BLADDER/KIDNEY EXAM: Yes no CVA tenderness Back/Pelvis: COMMON NORMALS: no CVA tenderness Extremity: COMMON NORMALS: normal to inspection Neuro: COMMON NORMALS: patient oriented x3 SENSORIUM/ORIENTATION: Yes alert GAIT: Yes Normal gait present Skin: GENERAL SKIN EXAM: dry skin Course Vital Signs: Vital signs: Vital Signs Temperature 97.6 F 03/11/22 19:02 Pulse Rate 69 03/11/22 23:00 Respiratory Rate 18 03/11/22 20:47 Blood Pressure 120/78 03/11/22 20:47 Pulse Oximetry 95 03/11/22 19:02 Oxygen Delivery Me thod 03/11/22 19:02 Oxygen Flow Rate 2 03/11/22 19:02 MDM - Chest Pain Medical Decision Making Patient is a 56-year-old female comes to the ED via EMS for chest pain. Patient has a history of CHF, COPD and hypertension. She is on 2 L of oxygen at home continuously. While in route EMS gave patient 325 mg of aspirin and a dose of nitro. Patient says the nitro and aspirin have not helped her chest pain at all. She states that her chest pain started just prior to arrival when she was walking to the kitchen. She rates the pain currently a 7 out of 10 and its on the left side of her chest. Vitals are stable. Patient appears nontoxic in no acute distress or pain. Labs are all unremarkable. EKG shows normal sinus rhythm with no ST segment elevation or depression seen. Chest x-ray shows no acute findings. Troponins are negative. Patient is stable for discharge home and diagnosed with atypical chest pain. Told to follow-up with PCP in the next week for reevaluation. Return ED precautions given. Patient understood and agreed with plan. Lab Data I reviewed the patient's lab results. 03/11/22 20:04 03/11/22 20:04 Radiology Impressions Chest X-Ray 03/11/22 18:45 IMPRESSION: No acute findings. Laboratory Results WBC 6.8 10^3/uL (4.0-10.0) 03/11/22 20:04 RBC 4.37 10^6/uL (4.1-5.3) 03/11/22 20:04 Hgb 12.5 g/dL (11.5-15.3) 03/11/22 20:04 Hct 40.9 % (37.0-47.0) 03/11/22 20:04 MCV 93.6 fl (81-99) 03/11/22 20:04 MCH 28.6 pg (28.0-34.0) 03/11/22 20:04 MCHC 30.6 g/dL (30.0-36.0) 03/11/22 20:04 RDW 14.1 % (12.1-15.1) 03/11/22 20:04 Plt Count 255 10^3/cmm (130-400) 03/11/22 20:04 MPV 10.7 fL (7.4-10.4) H 03/11/22 20:04 Neut % (Auto) 51.6 % 03/11/22 20:04 Lymph % (Auto) 30.3 % 03/11/22 20:04 Roane % (Auto) 10.6 % 03/11/22 20:04 Eos % (Auto) 6.2 % 03/11/22 20:04 Baso % (Auto) 1.0 % 03/11/22 20:04 Neut # (Auto) 3.50 10^3/uL (1.8-7.7) 03/11/22 20:04 Lymph # (Auto) 2.1 10^3/uL (0.8-4.8) 03/11/22 20:04 Roane # (Auto) 0.7 10^3/uL (0.2-0.9) 03/11/22 20:04 Eos # (Auto) 0.4 10^3/uL (0.0-0.8) 03/11/22 20:04 Baso # (Auto) 0.1 10^3/uL (0.0-0.1) 03/11/22 20:04 Nucleated RBC % (auto) 0 % 03/11/22 20:04 Nucleated RBCs # 0.0 /100WBC 03/11/22 20:04 Sodium 141 mmol/L (136-145) 03/11/22 20:04 Potassium 4.8 mmol/L (3.5-5.1) 03/11/22 20:04 Chloride 99 mmol/L (98-107) 03/11/22 20:04 Carbon Dioxide 36 mmol/L (22-29) H 03/11/22 20:04 Anion Gap 10.8 (5-19) 03/11/22 20:04 BUN 14 mg/dL (6-20) 03/11/22 20:04 Creatinine 0.8 mg/dL (0.5-0.9) 03/11/22 20:04 GFR Calculation 73.9 mL/min (90-130) L 03/11/22 20:04 Glucose 114 mg/dL (65-115) 03/11/22 20:04 Calculated Osmolality 293 mOsm/kg (285-295) 03/11/22 20:04 Calcium 9.4 mg/dL (8.5-10.5) 03/11/22 20:04 Total Bilirubin 1.0 mg/dL (0.15-1.2) 03/11/22 20:04 AST 17 U/L (0-32) 03/11/22 20:04 ALT 10 U/L (0-33) 03/11/22 20:04 Alkaline Phosphatase 89 U/L (35-105) 03/11/22 20:04 Troponin T Baseline 20 ng/L (0-10) H 03/11/22 20:04 Troponin T 120 Minute 18.51 ng/L (0-10) H 03/11/22 22:00 Delta Troponin T -1.49 ABS# (0-10) L 03/11/22 22:00 NT-Pro-B Natriuret Pep 218 pg/mL (0-125) H 03/11/22 20:04 Total Protein 6.4 g/dL (6.6-8.7) L 03/11/22 20:04 Albumin 4.0 g/dL (3.5-5.2) 03/11/22 20:04 Globulin 2.4 g/dL (1.3-4.6) 03/11/22 20:04 Lipase 31 U/L (13-60) 03/11/22 20:04 EKG Data EKG 1: EKG interpretation date: 03/11/22 Interpretation: Sinus rhythm, 66 bpm, no ST segment elevation or depression seen. Discharge Plan Discharge Patient Disposition: Home Clinical Impression: Atypical chest pain Condition: Stable Prescriptions: No Action montelukast [Singulair] 10 mg tablet 10 mg PO DAILY levetiracetam 250 mg tablet 250 mg PO BID aspirin [Adult Aspirin Regimen] 81 mg tablet,delayed release (DR/EC) 81 mg PO QAM pantoprazole [Protonix] 40 mg tablet,delayed release (DR/EC) 40 mg PO QAM albuterol sulfate [ProAir HFA] 90 mcg/actuation HFA aerosol inhaler 2 puff INHALATION Q6H PRN (Reason: Shortness Of Breath) atorvastatin 20 mg tablet 20 mg PO BEDTIME budesonide 0.5 mg/2 mL suspension for nebulization 0.5 mg inhalation BID PRN (Reason: Shortness Of Breath Or Wheezing) potassium chloride 20 mEq tablet extended release 20 meq PO DAILY Qty: 90 3RF bumetanide 2 mg tablet 2 mg PO DAILY metoprolol succinate 50 mg Tablet Extended Release 24 Hr 50 mg PO BID hydroxyzine HCl 10 mg Tablet 10 mg PO TID PRN (Reason: Anxiety) spironolactone 25 mg tablet 25 mg PO DAILY sucralfate 1 gram tablet 1 g PO TID trazodone 50 mg tablet 100 mg PO BEDTIME duloxetine 60 mg capsule,delayed release(DR/EC) 60 mg PO DAILY cetirizine 10 mg tablet 10 mg PO DAILY levothyroxine 125 mcg tablet 125 mcg PO DAILY ipratropium-albuterol 0.5 mg-3 mg(2.5 mg base)/3 mL solution for nebulization 3 ml inhalation Q6H PRN (Reason: unknown) Decadron 6 mg tablet 6 mg PO DAILY Qty: 14 0RF albuterol sulfate 90 mcg/actuation HFA aerosol inhaler 2 inh inhalation Q4H PRN (Reason: shortness of breath or wheezing) Qty: 8.5 0RF Discharge Orders: Discharge ED (Routine); Ordered 03/11/22 Ordered By: Alex Vieira Referrals: Татьяна Storm DROP FORGER HELPER [Primary Care Provider] - Discharge Diet: Regular Discharge Activity: Increase activity as tolerated Patient Instructions: Chest Pain (DC), Noncardiac Chest Pain (ED) Activity Restrictions/Additional Instructions: Follow-up with medical provider as directed in the next 5 to 7 days for reevaluation. Take medications as prescribed. Return to the ER or your medical provider if condition worsens. Please read and understand discharge instructions. Thank you for choosing [facility] for your healthcare needs today. Please realize this is an emergency room and that we are providing you with a medical screening exam and this may not be complete and all inclusive of all the testing and or work up that you may need to determine your ailment or severity of your illness. It is very important that you follow up as instructed or that you return to the Emergency Department should you have concerns or if your condition changes or worsens in any way. Coding Level of Care Code ED Circular Head Saw Operator for Dc Serrato Exam Comprehensive
[2022-03-11] MEDS: ondansetron 2 mg/ML SDV 2 mL 4 MG IVP (19:24)
[2022-03-11] MEDS: morphine 4 mg/mL SDV 1 mL IVP (19:24)
[2022-03-11 20:12] LABS: Basophils # 0.1 10^3/uL (0.0-0.1); Eosinophils # 0.4 10^3/uL (0.0-0.8); Eosinophils % 6.2 %; Hematocrit 40.9 % (37.0-47.0); Hemoglobin 12.5 g/dL (11.5-15.3); Lymphocytes # 2.1 10^3/uL (0.8-4.8); Lymphocytes % 30.3 %; Mean Corpuscular HGB Conc 30.6 g/dL (30.0-36.0); Mean Corpuscular Hemoglobin 28.6 pg (28.0-34.0); Mean Corpuscular Volume 93.6 fl (81-99); Mean Platelet Volume 10.7 fL (7.4-10.4); Monocytes # 0.7 10^3/uL (0.2-0.9); Monocytes % 10.6 %; Neutrophils % 51.6 %; Nucleated Red Blood Cells % 0 %; Platelet Count 255 10^3/cmm (130-400); Red Blood Count 4.37 10^6/uL (4.1-5.3); Red Cell Distribution Width 14.1 % (12.1-15.1); White Blood Count 6.8 10^3/uL (4.0-10.0)
[2022-03-11 20:30] LABS: Troponin(5th) Baseline 20 ng/L (0-10)
[2022-03-11 20:38] LABS: Alanine Aminotransferase 10 U/L (0-33); Alkaline Phosphatase 89 U/L (35-105); Blood Urea Nitrogen 14 mg/dL (6-20); Calcium 9.4 mg/dL (8.5-10.5); Carbon Dioxide 36 mmol/L (22-29); Chloride 99 mmol/L (98-107); Globulin 2.4 g/dL (1.3-4.6); Glomerular Filtration Rate 73.9 mL/min (90-130); Glucose 114 mg/dL (65-115); Lipase 31 U/L (13-60); NT Pro B Type Natriuretic Pept 218 pg/mL (0-125); Osmolality Calculated 293 mOsm/kg (285-295); Sodium 141 mmol/L (136-145); Total Protein 6.4 g/dL (6.6-8.7)
--- NOTE | 2022-03-11 20:46 | ECG_ITS ---
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 Measurements Intervals [place] Rate: 66 P: 32 MT: 128 QRS: 37 QRSD: 118 T: 52 QT: 438 QTc: 461 Interpretive Statements SINUS RHYTHM ANTEROLATERAL MYOCARDIAL INFARCTION , OF INDETERMINATE AGE [40+ ms Q WAVE IN I/aVL/V3-V6] Compared to ECG 01/23/2022 02:37:33 Myocardial infarct finding now present Short MT interval no longer present Electronically Signed On 03-11-2022 23:27:59 CONFECTIONERY LABORATORY MANAGER by Joseph Wilson M.D. [email or web address]
[2022-03-11 20:47] VITALS: BP 120/78; RESP 18
[2022-03-11 20:49] LABS: Anion Gap 10.8 (5-19); Potassium 4.8 mmol/L (3.5-5.1)
[2022-03-11 20:50] LABS: Aspartate Amino Transferase 17 U/L (0-32)
[2022-03-11 21:02] LABS: Slide Review Slide Review Perform
[2022-03-11 22:40] LABS: Troponin 5 2HR 18.51 ng/L (0-10)
[2022-03-11 22:44] LABS: Troponin 5 2HR Delta -1.49 ABS# (0-10)
[2022-03-11 23:00] VITALS: PULSE 69
== END 2022-03-11 23:30 | disposition home or self-care (01) ==
PROVIDERS: Emergency Provider Physician Assistant; PCP Nurse Practitioner Family
DX: R07.89 Other chest pain (principal); Z79.82 Long term (current) use of aspirin; J44.9 Chronic obstructive pulmonary disease, unspecified; I11.0 Hypertensive heart disease with heart failure; I50.30 Unspecified diastolic (congestive) heart failure; Z87.891 Personal history of nicotine dependence
CPT/HCPCS: 36415; 71045; 80053; 83690; 83880; 84484; 85025; 93005; 96374; 96375; 99285; J2270; J2405

== ENCOUNTER → 2022-04-06 09:37 | Outpatient (BNVA) | payer MEDICARE, MEDICAID, SELFPAY | PROVIDERS: PCP Nurse Practitioner Family; Visit Provider Orthopaedic Surgery | DX: M79.642 Pain in left hand (principal) | CPT/HCPCS: 99213 ==

== ENCOUNTER 2022-04-08 14:11 | Outpatient (CLI) | payer MEDICARE, MEDICAID, SELFPAY ==
--- NOTE | 2022-04-08 14:20 | XR_ITS ---
WS: [id number] XR wrist RT min 3V* [id number] REASON FOR EXAM: RIGHT WRIST PAIN, FELL ABOUT 10 DAYS AGO FINDINGS: No acute fracture identified. Joint spaces of the wrist are intact and well preserved. No soft tissue abnormality. XR/XR wrist RT min 3V* [id number] IMPRESSION: No acute abnormality.
== END 2022-04-08 14:12 | disposition home or self-care (01) ==
PROVIDERS: PCP Nurse Practitioner Family; Visit Provider Nurse Practitioner Family
DX: M25.531 Pain in right wrist (principal)
CPT/HCPCS: 73110

== ENCOUNTER 2022-04-29 22:12 | Emergency (ER) | payer MEDICARE, MEDICAID, SELFPAY ==
[2022-04-29 22:13] VITALS: BP 155/85; PULSE 76; RESP 18; TEMP 36.8; O2SAT 97; BMI 41.1
--- NOTE | 2022-04-29 22:14 | ED_ITS ---
Documented by User: Ken Barnes MD 05/13/22 15:23 HPI - Chest Pain General: Chief Complaint: Chest Pain Stated Complaint: CP Time Seen by Provider: 04/29/22 22:14 History of Present Illness: Ms. Pierre is a 56-year-old lady with complex past medical history including COPD with chronic hypoxic respiratory failure, valvular heart disease, diastolic heart failure, hypertension, hyperlipidemia presenting to the emergency department for chest pain and shortness of breath. She reports gradually worsening symptoms over the past 2 or 3 weeks. She notes cough and increased edema. Chest pain this evening was worse than it has been and substernal without significant radiation. Symptoms are at times exacerbated by laying flat and exertion. Intensity is moderate. No other specific changes in health, exacerbating, or alleviating factors identified. 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 COPD (chronic obstructive pulmonary disease) Diastolic CHF Diastolic heart failure Emphysema, unspecified Essential (primary) hypertension GERD (gastroesophageal reflux disease) Hypothyroidism (acquired) Learning disability Lower extremity edema Moderate aortic regurgitation Pain of hand Seizure disorder SVT (supraventricular tachycardia) Systolic murmur Thyroid function study abnormality Venous stasis Surgical History H/O esophagogastroduodenoscopy 03/19/2019: Normal H/O thyroidectomy History of carpal tunnel surgery History of colonoscopy 03/19/2019: Normal repeat in 10 years Hx of section Family History Unknown No problems noted. Other Adopted Social History Smoking and tobacco status: never smoked Quit status (tobacco): has quit using tobacco Year quit tobacco: 2019 - 1-5 ciggs/day Alcohol intake: never Lives independently: Yes Household members: none Housing: Apartment Current occupational status: disabled Current gender identity: Female Physical Exam Const: COMMON NORMALS: alert GENERAL APPEARANCE: cooperative and well developed HENMT: COMMON NORMALS: normocephalic and atraumatic HEAD & SCALP: normocephalic and atraumatic THROAT: posterior oropharynx normal Eye: COMMON NORMALS: conjunctivae normal CONJUNCTIVA: Yes conjunctivae normal SCLERA: sclerae normal Neck/C-Spine: COMMON NORMALS: supple GENERAL: Yes trachea midline Resp: COMMON NORMALS: normal respiratory effort EFFORT & INSPECTION: Yes able to speak in complete sentences Cardio: COMMON NORMALS: regular rate and regular rhythm RATE: regular rate RHYTHM: regular rhythm GI: COMMON NORMALS: Soft to palpation PALPATION: Yes Soft to palpation and No Tenderness to palpation present (GI) Extremity: GENERAL: Yes normal exam except as noted and No edema Neuro: COMMON NORMALS: moves all extremities SENSORIUM/ORIENTATION: Yes alert and No Orientation impaired Psych: COMMON NORMALS: mental status grossly normal and Normal thought process present THOUGHT PROCESS: Normal thought process present Course Vital Signs: Vital signs: Vital Signs Temperature 98.3 F 04/29/22 22:13 Pulse Rate 68 04/30/22 02:20 Respiratory Rate 16 04/30/22 02:20 Blood Pressure 162/62 04/30/22 02:20 Pulse Oximetry 97 04/30/22 02:20 Oxygen Delivery Me thod 04/30/22 02:20 Oxygen Flow Rate 2 04/30/22 02:20 MDM - Chest Pain Medical Records I reviewed the patient's medical records. Lab Data I reviewed the patient's lab results. 04/29/22 22:30 04/29/22 22:30 Radiology Impressions Chest X-Ray 04/29/22 22:17 IMPRESSION: 1. No acute cardiopulmonary process. 2. Incidental/nonacute findings are listed in the report. Laboratory Results WBC 8.8 10^3/uL (4.0-10.0) 04/29/22 23:00 Corrected WBC Cancelled 04/29/22 22:30 RBC 4.50 10^6/uL (4.1-5.3) 04/29/22 23:00 Hgb 12.6 g/dL (11.5-15.3) 04/29/22 23:00 Hct 40.8 % (37.0-47.0) 04/29/22 23:00 MCV 90.7 fl (81-99) 04/29/22 23:00 MCH 28.0 pg (28.0-34.0) 04/29/22 23:00 MCHC 30.9 g/dL (30.0-36.0) 04/29/22 23:00 RDW 13.6 % (12.1-15.1) 04/29/22 23:00 Plt Count 327 10^3/cmm (130-400) 04/29/22 23:00 MPV 9.9 fL (7.4-10.4) 04/29/22 23:00 Gran % Cancelled 04/29/22 22:30 Neut % (Auto) 77.5 % 04/29/22 23:00 Lymph % (Auto) 15.9 % 04/29/22 23:00 [place] % (Auto) 5.8 % 04/29/22 23:00 Eos % (Auto) 0.0 % 04/29/22 23:00 Baso % (Auto) 0.3 % 04/29/22 23:00 Neut # (Auto) 6.82 10^3/uL (1.8-7.7) 04/29/22 23:00 Lymph # (Auto) 1.4 10^3/uL (0.8-4.8) 04/29/22 23:00 [place] # (Auto) 0.5 10^3/uL (0.2-0.9) 04/29/22 23:00 Eos # (Auto) 0.0 10^3/uL (0.0-0.8) 04/29/22 23:00 Baso # (Auto) 0.0 10^3/uL (0.0-0.1) 04/29/22 23:00 Absolute Gran (auto) Cancelled 04/29/22 22:30 Nucleated RBC % (auto) 0 % 04/29/22 23:00 Nucleated RBCs # 0.0 /100WBC 04/29/22 23:00 Sodium 142 mmol/L (136-145) 04/29/22 22:30 Potassium 5.0 mmol/L (3.5-5.1) 04/29/22 22:30 Chloride 99 mmol/L (98-107) 04/29/22 22:30 Carbon Dioxide 31 mmol/L (22-29) H 04/29/22 22:30 Anion Gap 17.0 (5-19) 04/29/22 22:30 BUN 28 mg/dL (6-20) H 04/29/22 22:30 Creatinine 1.0 mg/dL (0.5-0.9) H 04/29/22 22:30 GFR Calculation 57.1 mL/min (90-130) L 04/29/22 22:30 Glucose 126 mg/dL (65-115) H 04/29/22 22:30 Calculated Osmolality 301 mOsm/kg (285-295) H 04/29/22 22:30 Calcium 9.2 mg/dL (8.5-10.5) 04/29/22 22:30 Total Bilirubin 0.5 mg/dL (0.15-1.2) 04/29/22 22:30 AST 19 U/L (0-32) 04/29/22 22:30 ALT 11 U/L (0-33) 04/29/22 22:30 Alkaline Phosphatase 78 U/L (35-105) 04/29/22 22:30 Troponin T Baseline 11 ng/L (0-10) H 04/29/22 22:30 Troponin T 120 Minute 11.66 ng/L (0-10) H 04/30/22 00:53 Delta Troponin T 0.66 ABS# (0-10) 04/30/22 00:53 NT-Pro-B Natriuret Pep 379 pg/mL (0-125) H 04/29/22 22:30 Total Protein 7.0 g/dL (6.6-8.7) 04/29/22 22:30 Albumin 4.4 g/dL (3.5-5.2) 04/29/22 22:30 Globulin 2.6 g/dL (1.3-4.6) 04/29/22 22:30 Lipase 31 U/L (13-60) 04/29/22 22:30 SARS-CoV-2 Ag (Rapid) negative (Negative) 04/29/22 22:45 Discharge Plan Discharge Patient Disposition: Home Clinical Impression: Chest pain Condition: Stable Prescriptions: No Action montelukast [Singulair] 10 mg tablet 10 mg PO DAILY levetiracetam 250 mg tablet 250 mg PO BID aspirin [Adult Aspirin Regimen] 81 mg tablet,delayed release (DR/EC) 81 mg PO QAM pantoprazole [Protonix] 40 mg tablet,delayed release (DR/EC) 40 mg PO QAM albuterol sulfate [ProAir HFA] 90 mcg/actuation HFA aerosol inhaler 2 puff INHALATION Q6H PRN (Reason: Shortness Of Breath) atorvastatin 20 mg tablet 20 mg PO BEDTIME budesonide 0.5 mg/2 mL suspension for nebulization 0.5 mg inhalation BID PRN (Reason: Shortness Of Breath Or Wheezing) potassium chloride 20 mEq tablet extended release 20 meq PO DAILY Qty: 90 3RF bumetanide 2 mg tablet 2 mg PO DAILY metoprolol succinate 50 mg Tablet Extended Release 24 Hr 50 mg PO BID hydroxyzine HCl 10 mg Tablet 10 mg PO TID PRN (Reason: Anxiety) spironolactone 25 mg tablet 25 mg PO DAILY sucralfate 1 gram tablet 1 g PO TID trazodone 50 mg tablet 100 mg PO BEDTIME duloxetine 60 mg capsule,delayed release(DR/EC) 60 mg PO DAILY cetirizine 10 mg tablet 10 mg PO DAILY levothyroxine 125 mcg tablet 125 mcg PO DAILY ipratropium-albuterol 0.5 mg-3 mg(2.5 mg base)/3 mL solution for nebulization 3 ml inhalation Q6H PRN (Reason: unknown) Decadron 6 mg tablet 6 mg PO DAILY Qty: 14 0RF albuterol sulfate 90 mcg/actuation HFA aerosol inhaler 2 inh inhalation Q4H PRN (Reason: shortness of breath or wheezing) Qty: 8.5 0RF gabapentin 300 mg capsule See Rx Instructions .ROUTE .COMPLEX Qty: 18 0RF Rx Instructions: take one cap today. Take one cap twice a day tomorrow, then begin taking one cap three times a day until gone Discharge Orders: Discharge ED (Routine); Ordered 04/30/22 Ordered By: Odilon Gama Referrals: Татьяна Storm, ENGLISH INSTRUCTOR [Primary Care Provider] - Discharge Diet: Cardiac Discharge Activity: Increase activity as tolerated Patient Instructions: Chest Pain (ED), Opioid Safety, Pain Management Activity Restrictions/Additional Instructions: Thank you for visiting the emergency department. You were seen and evaluated for chest pain. The exact cause of your symptoms is unclear. Please follow-up with cardiology and your primary care provider. Please continue all your previously prescribed medications. Return to the emergency department for anything that you are concerned about and feel needs emergency department evaluation. 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 COPD (chronic obstructive pulmonary disease) Diastolic CHF Diastolic heart failure Emphysema, unspecified Essential (primary) hypertension GERD (gastroesophageal reflux disease) Hypothyroidism (acquired) Learning disability Lower extremity edema Moderate aortic regurgitation Pain of hand Seizure disorder SVT (supraventricular tachycardia) Systolic murmur Thyroid function study abnormality Venous stasis Surgical History H/O esophagogastroduodenoscopy 03/19/2019: Normal H/O thyroidectomy History of carpal tunnel surgery History of colonoscopy 03/19/2019: Normal repeat in 10 years Hx of section Family History Unknown No problems noted. Other Adopted Social History Smoking and tobacco status: never smoked Quit status (tobacco): has quit using tobacco Year quit tobacco: 2019 - 1-5 ciggs/day Alcohol intake: never Lives independently: Yes Household members: none Housing: Apartment Current occupational status: disabled Current gender identity: Female Course Vital Signs: Vital signs: Vital Signs Temperature 98.3 F 04/29/22 22:13 Pulse Rate 68 04/30/22 02:20 Respiratory Rate 16 03/25/23 02:20 Blood Pressure 162/62 04/30/22 02:20 Pulse Oximetry 97 04/30/22 02:20 Oxygen Delivery Me thod 04/30/22 02:20 Oxygen Flow Rate 2 04/30/22 02:20 MDM - Chest Pain Medical Decision Making 56-year-old female checked out to me by the previous physician at shift change. This lady is well-known to the emergency department. She complains of chest discomfort. Work-up including CBC, BMP, liver enzymes, cardiac enzymes are essentially not remarkable. Her lipase is normal. COVID-19 is negative. Chest x-ray does not have any acute findings. EKG shows a sinus rhythm with normal axis and intervals, rate of [address] changes. She will be allowed discharge home. Lab Data 04/29/22 22:30 04/29/22 22:30 Radiology Impressions Chest X-Ray 04/29/22 22:17 IMPRESSION: 1. No acute cardiopulmonary process. 2. Incidental/nonacute findings are listed in the report. Laboratory Results WBC 8.8 10^3/uL (4.0-10.0) 04/29/22 23:00 Corrected WBC Cancelled 04/29/22 22:30 RBC 4.50 10^6/uL (4.1-5.3) 04/29/22 23:00 Hgb 12.6 g/dL (11.5-15.3) 04/29/22 23:00 Hct 40.8 % (37.0-47.0) 04/29/22 23:00 MCV 90.7 fl (81-99) 04/29/22 23:00 MCH 28.0 pg (28.0-34.0) 04/29/22 23:00 MCHC 30.9 g/dL (30.0-36.0) 04/29/22 23:00 RDW 13.6 % (12.1-15.1) 04/29/22 23:00 Plt Count 327 10^3/cmm (130-400) 04/29/22 23:00 MPV 9.9 fL (7.4-10.4) 04/29/22 23:00 Gran % Cancelled 04/29/22 22:30 Neut % (Auto) 77.5 % 04/29/22 23:00 Lymph % (Auto) 15.9 % 04/29/22 23:00 [place] % (Auto) 5.8 % 04/29/22 23:00 Eos % (Auto) 0.0 % 04/29/22 23:00 Baso % (Auto) 0.3 % 04/29/22 23:00 Neut # (Auto) 6.82 10^3/uL (1.8-7.7) 04/29/22 23:00 Lymph # (Auto) 1.4 10^3/uL (0.8-4.8) 04/29/22 23:00 [place] # (Auto) 0.5 10^3/uL (0.2-0.9) 04/29/22 23:00 Eos # (Auto) 0.0 10^3/uL (0.0-0.8) 04/29/22 23:00 Baso # (Auto) 0.0 10^3/uL (0.0-0.1) 04/29/22 23:00 Absolute Gran (auto) Cancelled 04/29/22 22:30 Nucleated RBC % (auto) 0 % 04/29/22 23:00 Nucleated RBCs # 0.0 /100WBC 04/29/22 23:00 Sodium 142 mmol/L (136-145) 04/29/22 22:30 Potassium 5.0 mmol/L (3.5-5.1) 04/29/22 22:30 Chloride 99 mmol/L (98-107) 04/29/22 22:30 Carbon Dioxide 31 mmol/L (22-29) H 04/29/22 22:30 Anion Gap 17.0 (5-19) 04/29/22 22:30 BUN 28 mg/dL (6-20) H 04/29/22 22:30 Creatinine 1.0 mg/dL (0.5-0.9) H 04/29/22 22:30 GFR Calculation 57.1 mL/min (90-130) L 04/29/22 22:30 Glucose 126 mg/dL (65-115) H 04/29/22 22:30 Calculated Osmolality 301 mOsm/kg (285-295) H 04/29/22 22:30 Calcium 9.2 mg/dL (8.5-10.5) 04/29/22 22:30 Total Bilirubin 0.5 mg/dL (0.15-1.2) 04/29/22 22:30 AST 19 U/L (0-32) 04/29/22 22:30 ALT 11 U/L (0-33) 04/29/22 22:30 Alkaline Phosphatase 78 U/L (35-105) 04/29/22 22:30 Troponin T Baseline 11 ng/L (0-10) H 04/29/22 22:30 Troponin T 120 Minute 11.66 ng/L (0-10) H 04/30/22 00:53 Delta Troponin T 0.66 ABS# (0-10) 04/30/22 00:53 NT-Pro-B Natriuret Pep 379 pg/mL (0-125) H 04/29/22 22:30 Total Protein 7.0 g/dL (6.6-8.7) 04/29/22 22:30 Albumin 4.4 g/dL (3.5-5.2) 04/29/22 22:30 Globulin 2.6 g/dL (1.3-4.6) 04/29/22 22:30 Lipase 31 U/L (13-60) 04/29/22 22:30 SARS-CoV-2 Ag (Rapid) negative (Negative) 04/29/22 22:45 Discharge Plan Discharge Patient Disposition: Home Clinical Impression: Chest pain Condition: Stable Prescriptions: No Action montelukast [Singulair] 10 mg tablet 10 mg PO DAILY levetiracetam 250 mg tablet 250 mg PO BID aspirin [Adult Aspirin Regimen] 81 mg tablet,delayed release (DR/EC) 81 mg PO QAM pantoprazole [Protonix] 40 mg tablet,delayed release (DR/EC) 40 mg PO QAM albuterol sulfate [ProAir HFA] 90 mcg/actuation HFA aerosol inhaler 2 puff INHALATION Q6H PRN (Reason: Shortness Of Breath) atorvastatin 20 mg tablet 20 mg PO BEDTIME budesonide 0.5 mg/2 mL suspension for nebulization 0.5 mg inhalation BID PRN (Reason: Shortness Of Breath Or Wheezing) potassium chloride 20 mEq tablet extended release 20 meq PO DAILY Qty: 90 3RF bumetanide 2 mg tablet 2 mg PO DAILY metoprolol succinate 50 mg Tablet Extended Release 24 Hr 50 mg PO BID hydroxyzine HCl 10 mg Tablet 10 mg PO TID PRN (Reason: Anxiety) spironolactone 25 mg tablet 25 mg PO DAILY sucralfate 1 gram tablet 1 g PO TID trazodone 50 mg tablet 100 mg PO BEDTIME duloxetine 60 mg capsule,delayed release(DR/EC) 60 mg PO DAILY cetirizine 10 mg tablet 10 mg PO DAILY levothyroxine 125 mcg tablet 125 mcg PO DAILY ipratropium-albuterol 0.5 mg-3 mg(2.5 mg base)/3 mL solution for nebulization 3 ml inhalation Q6H PRN (Reason: unknown) Decadron 6 mg tablet 6 mg PO DAILY Qty: 14 0RF albuterol sulfate 90 mcg/actuation HFA aerosol inhaler 2 inh inhalation Q4H PRN (Reason: shortness of breath or wheezing) Qty: 8.5 0RF gabapentin 300 mg capsule See Rx Instructions .ROUTE .COMPLEX Qty: 18 0RF Rx Instructions: take one cap today. Take one cap twice a day tomorrow, then begin taking one cap three times a day until gone Discharge Orders: Discharge ED (Routine); Ordered 04/30/22 Ordered By: Odilon Gama Referrals: Татьяна Storm, ENGLISH INSTRUCTOR [Primary Care Provider] - Discharge Diet: Cardiac Discharge Activity: Increase activity as tolerated Patient Instructions: Chest Pain (ED), Opioid Safety, Pain Management Activity Restrictions/Additional Instructions: Thank you for visiting the emergency department. You were seen and evaluated for chest pain. The exact cause of your symptoms is unclear. Please follow-up with cardiology and your primary care provider. Please continue all your previously prescribed medications. Return to the emergency department for anything that you are concerned about and feel needs emergency department evaluation. Coding Level of Care Code ED Layout Man for Dc Serrato
--- NOTE | 2022-04-29 22:17 | XRR_ITS ---
PROCEDURE INFORMATION: Exam: XR Chest Exam date and time: 04/29/2022 10:29 PM Age: 56 years old Clinical indication: Chest wall pain and on breathing and right-sided and left-sided; Additional info: Cp TECHNIQUE: Imaging protocol: Radiologic exam of the chest. Views: 1 view. COMPARISON: CR (CHEST, ) 03/11/2022 7:05 PM FINDINGS: Lungs: Lungs are clear bilaterally. Pleural spaces: No pleural effusion. No pneumothorax. Heart/Mediastinum: The cardiac silhouette and mediastinal contours are unremarkable. Vasculature: Stable vascular calcifications in the aorta. Bones/joints: Unremarkable for age. XR/XR chest 1V portable [id number] IMPRESSION: 1. No acute cardiopulmonary process. 2. Incidental/nonacute findings are listed in the report.
--- NOTE | 2022-04-29 22:19 | ECG_ITS ---
[facility] Test Date: 2022-04-29 Pat Name: Crystal Pierre Department: Room: Gender: Female Vaccinator: : 1965 Requested By: Ken Barnes Order Number: [id number] Clemencia MD: Joseph Wilson M.D. Measurements Intervals [place] Rate: 74 P: 64 IA: 121 QRS: 57 QRSD: 104 T: 60 QT: 380 QTc: 423 Interpretive Statements SINUS RHYTHM Compared to ECG 03/11/2022 21:02:36 Myocardial infarct finding no longer present Electronically Signed On 04-30-2022 15:24:37 CDT by Joseph Wilson M.D. [id number]
[2022-04-29 23:07] LABS: Basophils % 0.3 %; Hematocrit 40.8 % (37.0-47.0); Hemoglobin 12.6 g/dL (11.5-15.3); Lymphocytes # 1.4 10^3/uL (0.8-4.8); Lymphocytes % 15.9 %; Mean Corpuscular HGB Conc 30.9 g/dL (30.0-36.0); Mean Corpuscular Volume 90.7 fl (81-99); Mean Platelet Volume 9.9 fL (7.4-10.4); Monocytes # 0.5 10^3/uL (0.2-0.9); Monocytes % 5.8 %; Neutrophils # 6.82 10^3/uL (1.8-7.7); Neutrophils % 77.5 %; Nucleated Red Blood Cells % 0 %; Platelet Count 327 10^3/cmm (130-400); Red Cell Distribution Width 13.6 % (12.1-15.1); White Blood Count 8.8 10^3/uL (4.0-10.0)
[2022-04-29 23:07] LABS: Troponin(5th) Baseline 11 ng/L (0-10)
[2022-04-29 23:14] LABS: Alanine Aminotransferase 11 U/L (0-33); Albumin Level 4.4 g/dL (3.5-5.2); Alkaline Phosphatase 78 U/L (35-105); Blood Urea Nitrogen 28 mg/dL (6-20); Calcium 9.2 mg/dL (8.5-10.5); Carbon Dioxide 31 mmol/L (22-29); Chloride 99 mmol/L (98-107); Globulin 2.6 g/dL (1.3-4.6); Glomerular Filtration Rate 57.1 mL/min (90-130); Glucose 126 mg/dL (65-115); Lipase 31 U/L (13-60); NT Pro B Type Natriuretic Pept 379 pg/mL (0-125); Osmolality Calculated 301 mOsm/kg (285-295); Sodium 142 mmol/L (136-145); Total Bilirubin 0.5 mg/dL (0.15-1.2)
[2022-04-29 23:17] LABS: SARS Covid-2 Antigen negative (Negative)
[2022-04-29 23:20] LABS: Aspartate Amino Transferase 19 U/L (0-32)
[2022-04-29] MEDS: ipratropium-albuterol 3 mL Neb INHALATION (23:29)
[2022-04-29 23:32] VITALS: PULSE 65; RESP 16; O2SAT 98
--- NOTE | 2022-04-30 00:17 | ECG_ITS ---
[facility] Test Date: 2022-04-30 Pat Name: Crystal Pierre Department: Room: Gender: Female Certified Performance Technologist: : 1965 Requested By: Ken Barnes Order Number: [id number] Clemencia MD: Joseph Wilson M.D. Measurements Intervals [place] Rate: 62 P: 60 MT: 129 QRS: 54 QRSD: 94 T: 53 QT: 415 QTc: 424 Interpretive Statements SINUS RHYTHM Compared to ECG 03/11/2022 21:02:36 Myocardial infarct finding no longer present Electronically Signed On 04-30-2022 15:25:41 CDT by Joseph Wilson M.D. [id number]
[2022-04-30 01:17] LABS: Troponin 5 2HR 11.66 ng/L (0-10)
[2022-04-30 01:31] LABS: Troponin 5 2HR Delta 0.66 ABS# (0-10)
[2022-04-30 02:20] VITALS: BP 162/62; PULSE 68; RESP 16; O2SAT 97
== END 2022-04-30 02:24 | disposition home or self-care (01) ==
PROVIDERS: Emergency Medicine; Emergency Provider Emergency Medicine; PCP Nurse Practitioner Family
DX: R07.9 Chest pain, unspecified (principal); I11.0 Hypertensive heart disease with heart failure; I50.30 Unspecified diastolic (congestive) heart failure; J43.9 Emphysema, unspecified; E89.0 Postprocedural hypothyroidism; Z79.82 Long term (current) use of aspirin; Z87.891 Personal history of nicotine dependence
CPT/HCPCS: 71045; 80053; 83690; 83880; 84484; 85025; 87426; 93005; 94640; 96374; 99285; J2930

== ENCOUNTER 2022-05-09 12:51 | Emergency (ER) | payer MEDICARE, MEDICAID, SELFPAY ==
[2022-05-09 12:56] VITALS: BP 155/90; PULSE 84; RESP 16; TEMP 37.4; O2SAT 93; BMI 39.9
--- NOTE | 2022-05-09 15:10 | ED_ITS ---
HPI - Extremity Problem General: Chief complaint: Extremity Injury, Upper Stated complaint: left hand pain Time Seen by Provider: 05/09/22 13:23 Source: patient Mode of arrival: ambulatory Limitations: no limitations History of Present Illness: Patient presents to the emergency department today for evaluation treatment of continued chronic left hand pain. Patient's chart review shows that she has been seen and evaluated by orthopedics multiple times and has been seen several times in the emergency department for continued complaints of left hand pain. Patient had some nerve entrapment in the past and even had a procedure but, recent electromyelogram revealed no areas of compression or nerve disruption. Last orthopedic notes indicated that at this point, there is nothing further for them to do. Patient states that the last time she was seen here is because she fell and injured that hand however, evaluation was negative for acute injury and patient was diagnosed with a sprain. Patient states she is supposed to be wrapping her hand but, indicates it is too difficult for her to do with the bandage. She states now she feels like her fingers are locking up . 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 COPD (chronic obstructive pulmonary disease) Diastolic CHF Diastolic heart failure Emphysema, unspecified Essential (primary) hypertension GERD (gastroesophageal reflux disease) Hypothyroidism (acquired) Learning disability Lower extremity edema Moderate aortic regurgitation Pain of hand Seizure disorder SVT (supraventricular tachycardia) Systolic murmur Thyroid function study abnormality Venous stasis Surgical History H/O esophagogastroduodenoscopy 03/19/2019: Normal H/O thyroidectomy History of carpal tunnel surgery History of colonoscopy 03/19/2019: Normal repeat in 10 years Hx of section Family History Unknown No problems noted. Other Adopted Social History Smoking and tobacco status: never smoked Quit status (tobacco): has quit using tobacco Year quit tobacco: 2018 - 1-5 ciggs/day Alcohol intake: never Lives independently: Yes Household members: none Housing: Apartment Current occupational status: disabled Current gender identity: Female Physical Exam Const: COMMON NORMALS: no acute distress, patient oriented x3 and alert HENMT: COMMON NORMALS: normocephalic, atraumatic and hearing grossly normal bilaterally HEAD & SCALP: normocephalic and atraumatic Eye: COMMON NORMALS: Equal, round and reactive pupils present, EOMs intact bilaterally and conjunctivae normal CONJUNCTIVA: Yes conjunctivae normal PUPIL: Yes Equal, round and reactive pupils present Neck/C-Spine: COMMON NORMALS: full ROM and no JVD Lymph: LYMPHATIC: no lymphadenopathy noted Resp: COMMON NORMALS: normal respiratory effort, No retractions and No use of accessory muscles Cardio: COMMON NORMALS: no JVD and regular rate RATE: regular rate Extremity: NARRATIVE EXTREMITY EXAM: Patient with what appears to be pain out of portion on exam. I am barely able to touch the dorsum of her hand without her wincing and indicating her pain. I also am unable to palpate her fingers without her wincing and pulling away. Patient's fingers are pink and warm. No signs of erythema or significant swelling appreciated. Neuro: COMMON NORMALS: patient oriented x3 SENSORIUM/ORIENTATION: Yes alert Psych: COMMON NORMALS: mental status grossly normal, Normal thought process present, cooperative and normal affect THOUGHT PROCESS: Normal thought process present Skin: COMMON NORMALS: no rashes or lesions noted and turgor normal GENERAL SKIN EXAM: no rashes or lesions noted and turgor normal Course Vital Signs: Vital signs: Vital Signs Temperature 99.3 F 05/09/22 12:56 Pulse Rate 84 05/09/22 12:56 Respiratory Rate 16 05/09/22 12:56 Blood Pressure 155/90 05/09/22 12:56 Pulse Oximetry 93 05/09/22 12:56 Oxygen Delivery Me thod 05/09/22 12:56 MDM - Extremity (Nontraumatic) Medical Decision Making Patient presents emergency department today for continued chronic left hand pain. It appears patient has been seen and evaluated multiple times for this including by specialty services-orthopedics which all indicate there is nothing further for them to do as they have not been able to identify a reason for the patient's pain. Patient is not a surgical candidate as there appears to be no signs of any nerve entrapment based on her last EMG. I offered to provide the patient a brace so she does not have to attempt to wrap her wrist and hand. I also noticed patient did not have a prescription for gabapentin and did offer a very short course of this medication to see if it helped. She is to follow-up with orthopedics to let them know if the medication helped as she may require a continued prescription if it seems to alleviate some discomfort or, may need to touch base with them to discuss follow-up as we are quite limited to acutely helping her here in the emergency department. Discharge Plan Discharge Patient Disposition: Home Clinical Impression: Chronic pain of left hand Condition: Stable Prescriptions: New gabapentin 300 mg capsule See Rx Instructions .ROUTE .COMPLEX Qty: 18 0RF Rx Instructions: take one cap today. Take one cap twice a day tomorrow, then begin taking one cap three times a day until gone No Action montelukast [Singulair] 10 mg tablet 10 mg PO DAILY levetiracetam 250 mg tablet 250 mg PO BID aspirin [Adult Aspirin Regimen] 81 mg tablet,delayed release (DR/EC) 81 mg PO QAM pantoprazole [Protonix] 40 mg tablet,delayed release (DR/EC) 40 mg PO QAM albuterol sulfate [ProAir HFA] 90 mcg/actuation HFA aerosol inhaler 2 puff INHALATION Q6H PRN (Reason: Shortness Of Breath) atorvastatin 20 mg tablet 20 mg PO BEDTIME budesonide 0.5 mg/2 mL suspension for nebulization 0.5 mg inhalation BID PRN (Reason: Shortness Of Breath Or Wheezing) potassium chloride 20 mEq tablet extended release 20 meq PO DAILY Qty: 90 3RF bumetanide 2 mg tablet 2 mg PO DAILY metoprolol succinate 50 mg Tablet Extended Release 24 Hr 50 mg PO BID hydroxyzine HCl 10 mg Tablet 10 mg PO TID PRN (Reason: Anxiety) spironolactone 25 mg tablet 25 mg PO DAILY sucralfate 1 gram tablet 1 g PO TID trazodone 50 mg tablet 100 mg PO BEDTIME duloxetine 60 mg capsule,delayed release(DR/EC) 60 mg PO DAILY cetirizine 10 mg tablet 10 mg PO DAILY levothyroxine 125 mcg tablet 125 mcg PO DAILY ipratropium-albuterol 0.5 mg-3 mg(2.5 mg base)/3 mL solution for nebulization 3 ml inhalation Q6H PRN (Reason: unknown) Decadron 6 mg tablet 6 mg PO DAILY Qty: 14 0RF albuterol sulfate 90 mcg/actuation HFA aerosol inhaler 2 inh inhalation Q4H PRN (Reason: shortness of breath or wheezing) Qty: 8.5 0RF Discharge Orders: Discharge ED (Routine); Ordered 05/09/22 Ordered By: Estella Cruz Referrals: Татьяна Storm, INFRASTRUCTURE ADMINISTRATOR [Primary Care Provider] - Discharge Diet: Usual diet Discharge Activity: Increase activity as tolerated Patient Instructions: Chronic Pain (ED) Activity Restrictions/Additional Instructions: After reviewing your chart, it seems like you need to notify your research computing specialist regarding your continued pain in your hand. We will provide you a wrist brace here in the emergency department to help make it easier for you to apply compression in this area and, we will try a new medication to see if it helps with your pain. We recommend following up with your research computing specialist as you may wish to stay on the medication if it seems to work or, may need to discuss other options if you are not getting relief with this new medication. Continue taking the other medications you have as prescribed. Coding Level of Care Code ED Addiction Professional for Dc Serrato
== END 2022-05-09 14:24 | disposition home or self-care (01) ==
PROVIDERS: Emergency Provider Physician Assistant; PCP Nurse Practitioner Family
DX: G89.29 Other chronic pain (principal); M79.642 Pain in left hand; Z79.82 Long term (current) use of aspirin; Z87.891 Personal history of nicotine dependence
CPT/HCPCS: 99283

== ENCOUNTER 2022-05-13 11:53 | Outpatient (CLI) | payer MEDICARE, MEDICAID, SELFPAY ==
[2022-05-13 13:10] LABS: Free T4 Free Thyroxine 1.37 ng/dL (0.82-1.77); Thyroid Stimulating Hormone 6.15 uIU/mL (0.27-4.20)
--- NOTE | 2022-05-13 13:46 | MM_ITS ---
WS: [id number] BILATERAL SCREENING DIGITAL TOMOSYNTHESIS MAMMOGRAM WITH CAD HISTORY: SCREENING COMPARISON: 04/22/2021 and 11/15/2019 Bilateral CC and MLO views with tomosynthesis and synthetic mammography submitted. Computer aided det ection analyzed. Breast composition: There are scattered areas of fibroglandular density. No suspicious masses, microc alcifications or architectural distortion. Benign calcifications within each breast. MM/[place] [id number] IMPRESSION: BI-RADS: 2-Benign FOLLOW UP: 1 Year Follow-up
[2022-05-14 11:39] LABS: T3 Total 83 ng/dL (76-181)
== END 2022-05-13 11:54 | disposition home or self-care (01) ==
PROVIDERS: Internal Medicine; PCP Nurse Practitioner Family; Visit Provider Nurse Practitioner Family
DX: I47.1 Supraventricular tachycardia (principal); Z12.31 Encounter for screening mammogram for malignant neoplasm of breast; E03.9 Hypothyroidism, unspecified; Z79.890 Hormone replacement therapy
CPT/HCPCS: 36415; 77063; 77067; 84439; 84443; 84480; 99213

== ENCOUNTER 2022-05-18 20:24 | Emergency (ER) | payer MEDICARE, MEDICAID, SELFPAY ==
[2022-05-18] VITALS (19 sets, daily range): BP systolic 120–143; BP diastolic 62–84; PULSE 71–73; RESP 16–18; TEMP 36.9; O2SAT 93–100; BMI 40.1
--- NOTE | 2022-05-18 20:42 | XRR_ITS ---
PROCEDURE INFORMATION: Exam: XR Thoracic Spine Exam date and time: 05/18/2022 10:23 PM Age: 56 years old Clinical indication: Pain in thoracic spine; Additional info: Fall with back pain TECHNIQUE: Imaging protocol: Radiologic exam of the thoracic spine. Views: 3 views. COMPARISON: CR (CHEST, ) 05/18/2022 10:17 PM FINDINGS: Bones/joints: Multilevel mild disc space narrowing and productive degenerative endplate changes throughout the spine. Soft tissues: Unremarkable. XR/XR thoracic spine 3V* [id number] IMPRESSION: Multilevel mild disc space narrowing and productive degenerative endplate changes throughout the spine.
--- NOTE | 2022-05-18 20:42 | XRR_ITS ---
PROCEDURE INFORMATION: Exam: XR Left Ribs with PA Chest Exam date and time: 05/18/2022 10:17 PM Age: 56 years old Clinical indication: Chest wall pain; Left; Additional info: Fall with rib pain TECHNIQUE: Imaging protocol: Radiologic exam of the left ribs with PA chest. Views: 3 views COMPARISON: CR (CHEST, ) 04/29/2022 10:29 PM FINDINGS: Lungs: Unremarkable. No consolidation. Pleural spaces: Unremarkable. No pleural effusion. No pneumothorax. Heart/Mediastinum: Unremarkable. No cardiomegaly. Bones/joints: Unremarkable. XR/XR ribs LT mn 3V w CXR1V [id number] IMPRESSION: No acute findings.
--- NOTE | 2022-05-18 20:42 | CTR_ITS ---
PROCEDURE INFORMATION: Exam: CT Head Without Contrast Exam date and time: 05/18/2022 10:04 PM Age: 56 years old Clinical indication: Injury or trauma; Blunt trauma (contusions or hematomas); Patient HX: Fall. PT C/O [facility]. Does not remember fall or if she struck head. History of seizures. ; Additional info: Fall w/ possible loc TECHNIQUE: Imaging protocol: Computed tomography of the head without contrast. Radiation optimization: All CT scans at this facility use at least one of these dose optimization techniques: automated exposure control; mA and/or kV adjustment per patient size (includes targeted exams where dose is matched to clinical indication); or iterative reconstruction. REPORTING DATA: Count of CT and Cardiac NM exams in prior 12 months: This patient has received 3 known CTs and 0 known cardiac nuclear medicine studies in the 12 months prior to the current study. COMPARISON: CT head wo con* [id number] 11/16/2021 11:47 PM RADIATION DOSE METRICS: Total DLP (mGy-cm): 1046.18 FINDINGS: Brain: Normal. No hemorrhage. Unremarkable white matter. No mass effect. Cerebral ventricles: No ventriculomegaly. Paranasal sinuses: Visualized sinuses are unremarkable. No fluid levels. Mastoid air cells: Visualized mastoid air cells are well aerated. Bones/joints: Unremarkable. No acute fracture. Soft tissues: Unremarkable. CT/CT head wo con* [id number] IMPRESSION: No acute intracranial abnormality.
--- NOTE | 2022-05-18 20:42 | XRR_ITS ---
PROCEDURE INFORMATION: Exam: XR Left Femur Exam date and time: 05/18/2022 10:28 PM Age: 56 years old Clinical indication: Pain; Thigh; Left; Additional info: Fall injury, PT needs to go to bathroom before exams. TECHNIQUE: Imaging protocol: Radiologic exam of the left femur. Views: 2 views. COMPARISON: CT kidney stone [id number] 06/21/2021 8:42 PM FINDINGS: Bones/joints: Unremarkable. No acute fracture. Soft tissues: Unremarkable. XR/XR femur LT min 2V* [id number] IMPRESSION: No acute findings.
--- NOTE | 2022-05-18 20:44 | W.ED.FALL ---
HPI - Fall General: Chief Complaint: Fall Stated Complaint: LEG PAIN Time Seen by Provider: 05/18/22 20:32 History of Present Illness: Patient is a 56-year-old female comes to the ED via EMS after fall. Patient has history of COPD and is on 3 L of oxygen at home. Patient is having left thigh pain and bruising, left rib pain, mid back pain and headaches. Patient has a history of seizures and is unsure if she had a seizure and fell, but does not remember falling. She noticed the pain and bruising approximately 2 days ago. Patient does live independently at home. She rates her pain currently a 7 out of 10. Denies any other symptoms such as vision changes, numbness tingling or weakness to 1 side of her face or body. Associated symptoms-after fall: Reports headache(s); Denies abdominal pain, chest pain, hematuria or neck pain Review of Systems Const: Denies: fever(s), chills or fatigue Eyes: Denies: change in vision or eye discomfort ENMT: Denies: throat pain, odynophagia, nasal discharge or nasal congestion Card: Denies: chest pain, palpitations, edema, swelling of feet/ankles, dyspnea on exertion or orthopnea Resp: Denies: dyspnea, productive cough or non-productive cough GI: Denies: abdominal pain, nausea, vomiting, diarrhea, constipation or hematochezia : Denies: flank pain, dysuria or hematuria Musc: Reports: back pain, extremity pain (Left thigh pain) and other (Left rib pain); Denies: neck pain or extremity swelling Skin/Breast: Denies: rash or new lesions Neuro: Reports: headache(s); Denies: numbness in extremities or weakness in extremities PFS ED PFSH: Medical History Asthma Atypical chest pain Cervical radiculopathy Chest pain 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 COPD (chronic obstructive pulmonary disease) Diastolic CHF Diastolic heart failure Emphysema, unspecified Essential (primary) hypertension GERD (gastroesophageal reflux disease) Hypothyroidism (acquired) Learning disability Lower extremity edema Moderate aortic regurgitation Pain of hand Seizure disorder SVT (supraventricular tachycardia) Systolic murmur Thyroid function study abnormality Venous stasis Surgical History H/O esophagogastroduodenoscopy 03/19/2019: Normal H/O thyroidectomy History of carpal tunnel surgery History of colonoscopy 03/19/2019: Normal repeat in 10 years Hx of section Family History Unknown No problems noted. Other Adopted Social History Smoking and tobacco status: never smoked Quit status (tobacco): has quit using tobacco Year quit tobacco: 2018 - 1-5 ciggs/day Alcohol intake: never Lives independently: Yes Household members: none Housing: Apartment Current occupational status: disabled Current gender identity: Female Physical Exam Const: COMMON NORMALS: patient oriented x3 and alert GENERAL APPEARANCE: cooperative and comfortable HENMT: COMMON NORMALS: normocephalic HEAD & SCALP: normocephalic MOUTH: Normal oral and palatal mucosa present THROAT: posterior oropharynx normal and uvula midline Neck/C-Spine: COMMON NORMALS: supple GENERAL: Yes normal visual inspection Resp: COMMON NORMALS: normal respiratory effort, No retractions, No use of accessory muscles and clear to auscultation bilaterally AUSCULTATION: clear to auscultation bilaterally Cardio: COMMON NORMALS: regular rate, regular rhythm, S1 normal heart sound present, S2 normal heart sound present, No gallops present (Cardio), No clicks present (Cardio), No murmurs present (Cardio) and Peripheral pulses 2+ throughout RATE: regular rate RHYTHM: regular rhythm HEART SOUNDS: S1 normal heart sound present and S2 normal heart sound present PERIPHERAL PULSES: Peripheral pulses 2+ throughout GI: COMMON NORMALS: Normal to inspection, nondistended, normoactive bowel sounds present, Soft to palpation, non-tender and no masses PALPATION: Yes Soft to palpation : COMMON NORMALS: Yes no CVA tenderness BLADDER/KIDNEY EXAM: Yes no CVA tenderness Back/Pelvis: COMMON NORMALS: no CVA tenderness Extremity: COMMON NORMALS: normal to inspection Neuro: COMMON NORMALS: patient oriented x3 SENSORIUM/ORIENTATION: Yes alert GAIT: Yes Normal gait present Skin: GENERAL SKIN EXAM: dry skin Course Vital Signs: Vital signs: Vital Signs Temperature 98.4 F 05/18/22 20:26 Pulse Rate 71 05/18/22 23:47 Respiratory Rate 18 05/18/22 23:47 Blood Pressure 139/84 05/18/22 23:47 Pulse Oximetry 95 05/18/22 23:47 Oxygen Delivery Me thod Nasal Cannula 05/18/22 21:42 Oxygen Flow Rate 3 05/18/22 21:42 MDM - Fall Medical Decision Making Patient is a 56-year-old female comes to the ED via EMS after fall. Patient is having left thigh pain and bruising, left rib pain, mid back pain and headaches. Patient has a history of seizures and is unsure if she had a seizure and fell, but does not remember falling. She noticed the pain and bruising approximately 2 days ago. Patient does live independently at home. She rates her pain currently a 7 out of 10. Denies any other symptoms such as vision changes, numbness tingling or weakness to 1 side of her face or body. Vitals are stable. Patient had some bilateral wheezing throughout lungs but rest of exam was benign. X-ray of left femur show no acute fractures or findings. Head CT showed no acute findings. Left ribs and thoracic spine x-ray both showed no acute fractures or findings. Patient diagnosed with fall with no significant injury and was stable for discharge home. Sent home with a prescription for muscle relaxer. Told to follow-up with her PCP in the next week for reevaluation. Return to ED precautions given. Patient understood and agreed with plan. Lab Data Radiology Impressions Femur X-Ray 05/18/22 20:42 IMPRESSION: No acute findings. Head CT 05/18/22 20:42 IMPRESSION: No acute intracranial abnormality. Ribs X-Ray 05/18/22 20:42 IMPRESSION: No acute findings. Thoracic Spine X-Ray 05/18/22 20:42 IMPRESSION: Multilevel mild disc space narrowing and productive degenerative endplate changes throughout the spine. Discharge Plan Discharge Patient Disposition: Home Clinical Impression: Fall with no significant injury Qualifiers: Encounter type: initial encounter Qualified Code(s): W19.XXXA - Unspecified fall, initial encounter Condition: Stable Prescriptions: New methocarbamol 750 mg tablet 750 mg PO Q8H PRN (Reason: Back muscle spasms and pain) Qty: 20 0RF No Action montelukast [Singulair] 10 mg tablet 10 mg PO DAILY levetiracetam 250 mg tablet 250 mg PO BID aspirin [Adult Aspirin Regimen] 81 mg tablet,delayed release (DR/EC) 81 mg PO QAM pantoprazole [Protonix] 40 mg tablet,delayed release (DR/EC) 40 mg PO QAM albuterol sulfate [ProAir HFA] 90 mcg/actuation HFA aerosol inhaler 2 puff INHALATION Q6H PRN (Reason: Shortness Of Breath) atorvastatin 20 mg tablet 20 mg PO BEDTIME budesonide 0.5 mg/2 mL suspension for nebulization 0.5 mg inhalation BID PRN (Reason: Shortness Of Breath Or Wheezing) potassium chloride 20 mEq tablet extended release 20 meq PO DAILY Qty: 90 3RF bumetanide 2 mg tablet 2 mg PO DAILY metoprolol succinate 50 mg Tablet Extended Release 24 Hr 50 mg PO BID hydroxyzine HCl 10 mg Tablet 10 mg PO TID PRN (Reason: Anxiety) spironolactone 25 mg tablet 25 mg PO DAILY sucralfate 1 gram tablet 1 g PO TID trazodone 50 mg tablet 100 mg PO BEDTIME duloxetine 60 mg capsule,delayed release(DR/EC) 60 mg PO DAILY cetirizine 10 mg tablet 10 mg PO DAILY levothyroxine 125 mcg tablet 125 mcg PO DAILY ipratropium-albuterol 0.5 mg-3 mg(2.5 mg base)/3 mL solution for nebulization 3 ml inhalation Q6H PRN (Reason: unknown) Decadron 6 mg tablet 6 mg PO DAILY Qty: 14 0RF albuterol sulfate 90 mcg/actuation HFA aerosol inhaler 2 inh inhalation Q4H PRN (Reason: shortness of breath or wheezing) Qty: 8.5 0RF gabapentin 300 mg capsule See Rx Instructions .ROUTE .COMPLEX Qty: 18 0RF Rx Instructions: take one cap today. Take one cap twice a day tomorrow, then begin taking one cap three times a day until gone Discharge Orders: Discharge ED (Routine); Ordered 05/18/22 Ordered By: Alex Vieira Referrals: Татьяна Storm FNP [Primary Care Provider] - Discharge Diet: Regular Discharge Activity: Increase activity as tolerated Activity Restrictions/Additional Instructions: Follow-up with medical provider as directed in the next 5 to 7 days for reevaluation. Take medications as prescribed. Return to the ER or your medical provider if condition worsens. Please read and understand discharge instructions. Thank you for choosing [facility] for your healthcare needs today. Please realize this is an emergency room and that we are providing you with a medical screening exam and this may not be complete and all inclusive of all the testing and or work up that you may need to determine your ailment or severity of your illness. It is very important that you follow up as instructed or that you return to the Emergency Department should you have concerns or if your condition changes or worsens in any way. Coding Level of Care Code ED Field Sales Executive for Dc Serrato
[2022-05-18] MEDS: HYDROcodone-acetaminophen 7.5-325 mg Tablet 1 TAB PO (21:03)
[2022-05-18] MEDS: ipratropium-albuterol 3 mL Neb 6 ML INHALATION (21:41)
--- NOTE | 2022-05-18 23:45 | PC.NURSE ---
Pt did not have any home oxygen upon discharge. The pt refused to stay in the room with oxygen and stated I will be fine without oxygen until I get home.
== END 2022-05-18 23:49 | disposition home or self-care (01) ==
PROVIDERS: Emergency Provider Physician Assistant; PCP Nurse Practitioner Family
DX: M79.605 Pain in left leg (principal); Z79.82 Long term (current) use of aspirin; S80.12XA Contusion of left lower leg, initial encounter; Z87.891 Personal history of nicotine dependence; J44.9 Chronic obstructive pulmonary disease, unspecified; I11.0 Hypertensive heart disease with heart failure; I50.30 Unspecified diastolic (congestive) heart failure; Z99.81 Dependence on supplemental oxygen; W18.30XA Fall on same level, unspecified, initial encounter
CPT/HCPCS: 70450; 71101; 72072; 73552; 94640; 99284

== ENCOUNTER → 2022-05-20 10:50 | Outpatient (BNVA) | payer MEDICARE, MEDICAID, SELFPAY | PROVIDERS: PCP Nurse Practitioner Family; Visit Provider Nurse Practitioner Family | DX: I47.1 Supraventricular tachycardia (principal); I11.0 Hypertensive heart disease with heart failure; I50.32 Chronic diastolic (congestive) heart failure; Z79.82 Long term (current) use of aspirin | CPT/HCPCS: 99214 ==

== ENCOUNTER 2022-05-24 13:04 | Outpatient (CLI) | payer MEDICARE, MEDICAID, SELFPAY ==
[2022-05-24 14:15] LABS: Free T4 Free Thyroxine 1.55 ng/dL (0.82-1.77); Thyroid Stimulating Hormone 2.05 uIU/mL (0.27-4.20)
[2022-05-25 09:14] LABS: T3 Total 109 ng/dL (76-181)
== END 2022-05-24 13:05 | disposition home or self-care (01) ==
LOC: LAB 13:11
PROVIDERS: PCP Nurse Practitioner Family; Visit Provider Nurse Practitioner Family
DX: Z01.89 Encounter for other specified special examinations (principal)
CPT/HCPCS: 36415; 84439; 84443; 84480

== ENCOUNTER → 2022-06-03 09:06 | Outpatient (BNVA) | payer MEDICARE, MEDICAID, SELFPAY | PROVIDERS: PCP Nurse Practitioner Family; Visit Provider Nurse Practitioner Family | DX: I11.0 Hypertensive heart disease with heart failure (principal); I50.32 Chronic diastolic (congestive) heart failure; Z79.82 Long term (current) use of aspirin | CPT/HCPCS: 99214 ==

== ENCOUNTER 2022-06-24 18:17 | Emergency (ER) | payer MEDICARE, MEDICAID, SELFPAY ==
[2022-06-24 18:20] VITALS: BMI 41.3
[2022-06-24 18:28] VITALS: BP 134/51; PULSE 66; RESP 18; TEMP 36.7; O2SAT 100
--- NOTE | 2022-06-24 18:40 | USR_ITS ---
PROCEDURE INFORMATION: Exam: US Duplex Right Lower Extremity Veins, Limited Exam date and time: 06/24/2022 6:52 PM Age: 56 years old Clinical indication: Pain; Leg, lower; Right; Additional info: Pain in R leg no trauma TECHNIQUE: Imaging protocol: Real-time duplex ultrasound of the right extremity with 2-D desai scale, color Doppler flow and spectral waveform analysis including responses to compression and other maneuvers (when performed) with image documentation. Limited exam was focused on the right lower extremity veins. COMPARISON: CT kidney stone [id number] 06/21/2021 8:42 PM FINDINGS: Right deep veins: Unremarkable. The common femoral, femoral, proximal profunda femoral, popliteal, posterior tibial and peroneal veins are patent without thrombus. Normal Doppler waveforms. Normal compressibility and/or augmentation response. Right superficial veins: Unremarkable. Saphenofemoral junction is patent without thrombus. Soft tissues: Unremarkable. US/[place] [id number] IMPRESSION: No sonographic evidence of deep vein thrombosis.
--- NOTE | 2022-06-24 18:46 | W.ED.EXTPRO ---
HPI - Extremity Problem General: Chief complaint: Extremity Problem,Nontraumatic Stated complaint: chest pain, possible blood clot Time Seen by Provider: 06/24/22 18:29 Source: patient History of Present Illness: 56-year-old female with right leg pain. She states that she has had pain for 2 or 3 days to the right leg. She says it is swollen more so than usual. She denies any trauma. It is not red, or warm. No fever. She also states that she has had increasing chest discomfort which is a chronic problem for her over the last couple of days. She has had a bit of increased trouble breathing as well. She is afebrile. She says she is coughing up thick sputum. She says she did take some prednisone at home without any relief. MD Complaint: extremity pain and extremity swelling Onset (ago): hour(s) Pain Consistency: constant Location: right and lower extremity Quality: burning and aching Radiation: none Relieving factors: nothing Exacerbating factors: range of motion and weight bearing Associated symptoms: Reports arthralgias, chest pain and short of breath; Deny fever(s) Review of Systems Const: Denies: fever(s) ENMT: Denies: throat pain Card: Reports: chest pain Resp: Reports: dyspnea and productive cough GI: Reports: nausea; Denies: abdominal pain : Denies: flank pain Neuro: Denies: headache(s) PFSH ED PFSH: Medical History Asthma Atypical chest pain Cervical radiculopathy Chest pain 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 COPD (chronic obstructive pulmonary disease) Diastolic CHF Diastolic heart failure Emphysema, unspecified Essential (primary) hypertension GERD (gastroesophageal reflux disease) Hypothyroidism (acquired) Learning disability Lower extremity edema Moderate aortic regurgitation Pain of hand Seizure disorder SVT (supraventricular tachycardia) Systolic murmur Thyroid function study abnormality Venous stasis Surgical History H/O esophagogastroduodenoscopy 03/19/2019: Normal H/O thyroidectomy History of carpal tunnel surgery History of colonoscopy 03/19/2019: Normal repeat in 10 years Hx of section Family History Unknown No problems noted. Other Adopted Social History Smoking and tobacco status: never smoked Quit status (tobacco): has quit using tobacco Year quit tobacco: 2018 - 1-5 ciggs/day Alcohol intake: never Substance/Drug Use: never Lives independently: Yes Household members: none Housing: Apartment Current occupational status: disabled Do you think of yourself as: Straight/Heterosexual Current gender identity: Female Physical Exam Const: COMMON NORMALS: no acute distress GENERAL APPEARANCE: cooperative; not ill appearing and not frail appearing NUTRITIONAL APPEARANCE: obese HENMT: COMMON NORMALS: normocephalic, atraumatic and Normal external nose present HEAD & SCALP: normocephalic and atraumatic FACE & SINUS: normal facial exam and face symmetric NOSE: Normal external nose present Eye: COMMON NORMALS: Equal, round and reactive pupils present and EOMs intact bilaterally PUPIL: Yes Equal, round and reactive pupils present Neck/C-Spine: GENERAL: Yes trachea midline Chest: CHEST: Yes Symmetrical chest wall rise Resp: COMMON NORMALS: normal respiratory effort, No retractions, No use of accessory muscles and clear to auscultation bilaterally AUSCULTATION: clear to auscultation bilaterally Cardio: COMMON NORMALS: regular rate and regular rhythm RATE: regular rate RHYTHM: regular rhythm GI: COMMON NORMALS: Normal to inspection, nondistended, normoactive bowel sounds present Extremity: GENERAL: Yes edema (Bilateral even) Neuro: SAROJ COMA SCALE: document GCS findings [place] coma scale eye opening: Spontaneous [place] coma scale verbal response: Orientated [place] coma scale motor response: Obey commands [place] coma scale total score: 15 SENSORY EXAM: Yes extremities (intact) Psych: COMMON NORMALS: speech normal SPEECH: Yes normal speech Skin: COMMON NORMALS: no rashes or lesions noted GENERAL SKIN EXAM: no rashes or lesions noted Course Vital Signs: Vital signs: Vital Signs Temperature 98.1 F 06/24/22 18:28 Pulse Rate 63 06/24/22 21:14 Respiratory Rate 16 06/24/22 21:14 Blood Pressure 113/63 06/24/22 21:14 Pulse Oximetry 99 06/24/22 21:14 Oxygen Delivery Me thod Nasal Cannula 06/24/22 19:09 Oxygen Flow Rate 1.5 06/24/22 19:09 MDM - Extremity (Nontraumatic) Medical Decision Making 56-year-old female well-known to the ER service. She presents with right leg discomfort. Ultrasound for DVT is negative for she has no signs of distress with her chest discomfort. Her chest x-ray is negative. Her EKG shows a sinus rhythm with normal axis, normal intervals, rate of 60, and no acute ST changes. This young lady has had multiple work-ups for chest discomfort with similar symptoms. She is in no distress, with normal vital signs, I do not see a reason for blood work in this patient. We will treat her symptoms. Close outpatient follow-up Lab Data Radiology Impressions Venous Duplex 06/24/22 18:40 IMPRESSION: No sonographic evidence of deep vein thrombosis. Chest X-Ray 06/24/22 19:53 IMPRESSION: No acute radiographic findings. Discharge Plan Discharge Patient Disposition: Home Clinical Impression: Chest pain, Lower extremity edema Condition: Stable Prescriptions: No Action montelukast [Singulair] 10 mg tablet 10 mg PO DAILY levetiracetam 250 mg tablet 250 mg PO BID aspirin [Adult Aspirin Regimen] 81 mg tablet,delayed release (DR/EC) 81 mg PO QAM pantoprazole [Protonix] 40 mg tablet,delayed release (DR/EC) 40 mg PO QAM albuterol sulfate [ProAir HFA] 90 mcg/actuation HFA aerosol inhaler 2 puff INHALATION Q6H PRN (Reason: Shortness Of Breath) atorvastatin 20 mg tablet 20 mg PO BEDTIME budesonide 0.5 mg/2 mL suspension for nebulization 0.5 mg inhalation BID PRN (Reason: Shortness Of Breath Or Wheezing) magnesium oxide 500 mg tablet 500 mg PO DAILY ergocalciferol (vitamin D2) [Vitamin D2] 1,250 mcg (50,000 unit) capsule 1,250 mcg PO DAILY potassium chloride 20 mEq tablet extended release 20 meq PO DAILY Qty: 90 3RF metoprolol succinate 50 mg tablet extended release 24 hr 100 mg PO BID Qty: 180 3RF bumetanide 2 mg tablet 2 mg PO DAILY hydroxyzine HCl 10 mg Tablet 10 mg PO TID PRN (Reason: Anxiety) spironolactone 25 mg tablet 25 mg PO DAILY sucralfate 1 gram tablet 1 g PO TID trazodone 50 mg tablet 100 mg PO BEDTIME duloxetine 60 mg capsule,delayed release(DR/EC) 60 mg PO DAILY cetirizine 10 mg tablet 10 mg PO DAILY ipratropium-albuterol 0.5 mg-3 mg(2.5 mg base)/3 mL solution for nebulization 3 ml inhalation Q6H PRN (Reason: unknown) albuterol sulfate 90 mcg/actuation HFA aerosol inhaler 2 inh inhalation Q4H PRN (Reason: shortness of breath or wheezing) Qty: 8.5 0RF levothyroxine 125 mcg tablet 125 mcg PO DAILY gabapentin 300 mg capsule See Rx Instructions .ROUTE .COMPLEX Qty: 18 0RF Rx Instructions: take one cap today. Take one cap twice a day tomorrow, then begin taking one cap three times a day until gone methocarbamol 750 mg tablet 750 mg PO Q8H PRN (Reason: Back muscle spasms and pain) Qty: 20 0RF Discharge Orders: Discharge ED (Routine); Ordered 06/24/22 Ordered By: Odilon Gama Referrals: Татьяна Storm, SALES ADVISORY MANAGER [Primary Care Provider] - Patient Instructions: Opioid Safety, Pain Management Activity Restrictions/Additional Instructions: Use Tylenol for pain. Ice for the leg and painful areas. Return for worsening shortness of breath, fever greater than 100, worsening pain of the chest, any other concerning symptoms see your doctor early next week Coding Level of Care Code ED Waterproof Bag Cutting Machine Operator for Dc Serrato
[2022-06-24 19:09] VITALS: BP 138/65; PULSE 68; PULSE 72; RESP 16; RESP 17; O2SAT 100
--- NOTE | 2022-06-24 19:16 | ECG_ITS ---
[facility] Test Date: 2022-06-24 Pat Name: Crystal Pierre Department: Room: Gender: Female Debt And Budget Counselor: : 1965 Requested By: Odilon Johnson Order Number: [id number] Khanna MD: Amanda Bourgeois M.D. Measurements Intervals [place] Rate: 61 P: 149 PA: 144 QRS: 83 QRSD: 96 T: 131 QT: 418 QTc: 422 Interpretive Statements ECTOPIC ATRIAL RHYTHM LOW QRS VOLTAGE IN EXTREMITY LEADS [QRS DEFLECTION < 0.5 mV IN LIMB LEADS] ABNORMAL RHYTHM ECG Compared to ECG 04/30/2022 00:10:03 Ectopic atrial rhythm now present Low QRS voltage now present Sinus rhythm no longer present Electronically Signed On 06-25-2022 5:55:46 CDT by Amanda Bourgeois M.D. [id number]
[2022-06-24 19:31] VITALS: BP 99/60; PULSE 67; RESP 17
--- NOTE | 2022-06-24 19:53 | XRR_ITS ---
PROCEDURE INFORMATION: Exam: XR Chest Exam date and time: 06/24/2022 8:05 PM Age: 56 years old Clinical indication: Pain; Chest pressure; Additional info: Cp TECHNIQUE: Imaging protocol: Radiologic exam of the chest. Views: 1 view. COMPARISON: CR (CHEST, ) 05/18/2022 10:17 PM FINDINGS: Lungs: Streaky opacities at the lung bases, likely secondary to atelectasis and/or scarring. No consolidation. Pleural spaces: Unremarkable. No pleural effusion. No pneumothorax. Heart/Mediastinum: Unremarkable. No cardiomegaly. Bones/joints: No acute osseous abnormality. Mild degenerative changes. XR/XR chest 1V portable [id number] IMPRESSION: No acute radiographic findings.
[2022-06-24 20:02] VITALS: BP 133/53; PULSE 69; RESP 15
[2022-06-24 20:31] VITALS: BP 130/62; PULSE 62; RESP 19
[2022-06-24 21:14] VITALS: BP 113/63; PULSE 63; RESP 16; O2SAT 99
== END 2022-06-24 21:16 | disposition home or self-care (01) ==
PROVIDERS: Emergency Provider Emergency Medicine; PCP Nurse Practitioner Family
DX: R07.9 Chest pain, unspecified (principal); R60.0 Localized edema; Z79.82 Long term (current) use of aspirin; Z87.891 Personal history of nicotine dependence; J44.9 Chronic obstructive pulmonary disease, unspecified; I11.0 Hypertensive heart disease with heart failure; I50.30 Unspecified diastolic (congestive) heart failure
CPT/HCPCS: 71045; 93005; 93971; 99285

== ENCOUNTER 2022-07-03 17:05 | Emergency (ER) | payer MEDICARE, MEDICAID, SELFPAY ==
[2022-07-03 17:08] VITALS: BP 172/77; PULSE 80; RESP 14; TEMP 36.7; O2SAT 93; BMI 40.2
--- NOTE | 2022-07-03 17:12 | XRR_ITS ---
PROCEDURE INFORMATION: Exam: XR Left Hip Exam date and time: 07/03/2022 5:36 PM Age: 56 years old Clinical indication: Injury or trauma; Fall; Other: Pain; Additional info: [place] TECHNIQUE: Imaging protocol: Radiologic exam of the left hip. Views: 2 or 3 views hip with pelvis when performed. COMPARISON: CT kidney stone [id number] 06/21/2021 8:42 PM FINDINGS: Bones/joints: Unremarkable. No acute fracture. Soft tissues: Unremarkable. XR/XR hip LT 2-3V wo/w pel* [id number] IMPRESSION: No acute findings.
--- NOTE | 2022-07-03 17:12 | XRR_ITS ---
PROCEDURE INFORMATION: Exam: XR Left Knee Exam date and time: 07/03/2022 5:36 PM Age: 56 years old Clinical indication: Injury or trauma; Fall; Other: Pain TECHNIQUE: Imaging protocol: Radiologic exam of the left knee. Views: 3 views. COMPARISON: CR XR knee LT 3V* [id number] 09/16/2019 2:41 PM FINDINGS: Bones/joints: [id number] tricompartmental osteoarthritis of the knee. Soft tissues: Normal. XR/XR knee LT 3V* [id number] IMPRESSION: 1. Negative for fracture or dislocation 2. [id number] tricompartmental osteoarthritis of the knee.
--- NOTE | 2022-07-03 17:20 | ED_ITS ---
HPI - Fall General: Chief Complaint: Fall Stated Complaint: LEFT SIDE PAIN S/P FALL Time Seen by Provider: 07/03/22 17:09 Source: patient and EMS Mode of arrival: EMS Limitations: no limitations History of Present Illness: 56-year-old female states she was getting out of a cab an hour ago she states she had slipped and fell landed on her left knee she has left knee and left hip pain she is able to stand with EMS she rates her pain a 5 out of 10 denies any injuries other than that denies hitting her head denies chest pain or abdominal pain. 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 COPD (chronic obstructive pulmonary disease) Diastolic CHF Diastolic heart failure Emphysema, unspecified Essential (primary) hypertension GERD (gastroesophageal reflux disease) Hypothyroidism (acquired) Learning disability Lower extremity edema Moderate aortic regurgitation Pain of hand Seizure disorder SVT (supraventricular tachycardia) Systolic murmur Thyroid function study abnormality Venous stasis Surgical History H/O esophagogastroduodenoscopy 03/19/2019: Normal H/O thyroidectomy History of carpal tunnel surgery History of colonoscopy 03/19/2019: Normal repeat in 10 years Hx of section Family History Unknown No problems noted. Other Adopted Social History Smoking and tobacco status: never smoked Quit status (tobacco): has quit using tobacco Year quit tobacco: 2019 - 1-5 ciggs/day Alcohol intake: never Substance/Drug Use: never Lives independently: Yes Household members: none Housing: Apartment Current occupational status: disabled Do you think of yourself as: Straight/Heterosexual Current gender identity: Female Physical Exam Const: COMMON NORMALS: no acute distress, patient oriented x3 and healthy appearing HENMT: COMMON NORMALS: normocephalic and atraumatic HEAD & SCALP: normocephalic and atraumatic Eye: COMMON NORMALS: conjunctivae normal CONJUNCTIVA: Yes conjunctivae normal Neck/C-Spine: COMMON NORMALS: full ROM and supple CERVICAL SPINE: Yes cervical ROM normal and No Cervical spine tenderness Chest: COMMONS NORMALS: normal inspection of the chest and normal palpation of entire chest wall Resp: COMMON NORMALS: normal respiratory effort, No retractions, No use of accessory muscles and clear to auscultation bilaterally AUSCULTATION: clear to auscultation bilaterally Cardio: COMMON NORMALS: regular rate, regular rhythm and No murmurs present (Cardio) RATE: regular rate RHYTHM: regular rhythm GI: COMMON NORMALS: Normal to inspection, nondistended, normoactive bowel sounds present, Soft to palpation, non-tender and no masses PALPATION: Yes Soft to palpation Extremity: COMMON NORMALS: full ROM NARRATIVE EXTREMITY EXAM: Abrasion to left knee slight tenderness to knee and hip no obvious deformity Neuro: COMMON NORMALS: patient oriented x3, moves all extremities and no focal motor deficits Psych: COMMON NORMALS: mental status grossly normal, Normal thought process present and cooperative THOUGHT PROCESS: Normal thought process present Skin: COMMON NORMALS: no rashes or lesions noted and no wounds GENERAL SKIN EXAM: no rashes or lesions noted Course Vital Signs: Vital signs: Vital Signs Temperature 98.1 F 07/03/22 17:08 Pulse Rate 80 07/03/22 18:33 Respiratory Rate 14 07/03/22 17:08 Blood Pressure 172/77 07/03/22 18:33 Pulse Oximetry 93 07/03/22 18:33 Oxygen Delivery Me thod Room Air 07/03/22 17:08 MDM - Fall Medical Decision Making Patient presents with knee abrasion along with contusion from a fall x-rays here are normal she is able ambulate the halls without difficulty no other signs of injury she is stable for discharge to follow-up PCP return if worsening. Lab Data Radiology Impressions Hip/Pelvis X-Ray 07/03/22 17:12 IMPRESSION: No acute findings. Knee X-Ray 07/03/22 17:12 IMPRESSION: 1. Negative for fracture or dislocation 2. [id number] tricompartmental osteoarthritis of the knee. Discharge Plan Discharge Patient Disposition: Home Clinical Impression: Fall, Abrasion of knee Condition: Stable Prescriptions: New Naprosyn 500 mg tablet 500 mg PO BID PRN (Reason: pain) Qty: 20 0RF No Action montelukast [Singulair] 10 mg tablet 10 mg PO DAILY levetiracetam 250 mg tablet 250 mg PO BID aspirin [Adult Aspirin Regimen] 81 mg tablet,delayed release (DR/EC) 81 mg PO QAM pantoprazole [Protonix] 40 mg tablet,delayed release (DR/EC) 40 mg PO QAM albuterol sulfate [ProAir HFA] 90 mcg/actuation HFA aerosol inhaler 2 puff INHALATION Q6H PRN (Reason: Shortness Of Breath) atorvastatin 20 mg tablet 20 mg PO BEDTIME budesonide 0.5 mg/2 mL suspension for nebulization 0.5 mg inhalation BID PRN (Reason: Shortness Of Breath Or Wheezing) magnesium oxide 500 mg tablet 500 mg PO DAILY ergocalciferol (vitamin D2) [Vitamin D2] 1,250 mcg (50,000 unit) capsule 1,250 mcg PO DAILY potassium chloride 20 mEq tablet extended release 20 meq PO DAILY Qty: 90 3RF metoprolol succinate 50 mg tablet extended release 24 hr 100 mg PO BID Qty: 180 3RF bumetanide 2 mg tablet 2 mg PO DAILY hydroxyzine HCl 10 mg Tablet 10 mg PO TID PRN (Reason: Anxiety) spironolactone 25 mg tablet 25 mg PO DAILY sucralfate 1 gram tablet 1 g PO TID trazodone 50 mg tablet 100 mg PO BEDTIME duloxetine 60 mg capsule,delayed release(DR/EC) 60 mg PO DAILY cetirizine 10 mg tablet 10 mg PO DAILY ipratropium-albuterol 0.5 mg-3 mg(2.5 mg base)/3 mL solution for nebulization 3 ml inhalation Q6H PRN (Reason: unknown) albuterol sulfate 90 mcg/actuation HFA aerosol inhaler 2 inh inhalation Q4H PRN (Reason: shortness of breath or wheezing) Qty: 8.5 0RF levothyroxine 125 mcg tablet 125 mcg PO DAILY gabapentin 300 mg capsule See Rx Instructions .ROUTE .COMPLEX Qty: 18 0RF Rx Instructions: take one cap today. Take one cap twice a day tomorrow, then begin taking one cap three times a day until gone methocarbamol 750 mg tablet 750 mg PO Q8H PRN (Reason: Back muscle spasms and pain) Qty: 20 0RF Discharge Orders: Discharge ED (Routine); Ordered 07/03/22 Ordered By: Tenisha Casey Referrals: Татьяна Storm JIG AND FIXTURE BUILDER APPRENTICE [Primary Care Provider] - 1-3 days Discharge Diet: Advance as tolerated Discharge Activity: Resume usual activity Patient Instructions: Contusion in Adults (ED) Coding Level of Care Code ED Construction Job Titles for Dc Serarto
[2022-07-03] MEDS: HYDROcodone-acetaminophen 7.5-325 mg Tablet 1 TAB PO (17:24)
[2022-07-03 18:33] VITALS: BP 172/77; PULSE 80; O2SAT 93
== END 2022-07-03 18:33 | disposition home or self-care (01) ==
PROVIDERS: Emergency Provider Emergency Medicine; PCP Nurse Practitioner Family
DX: S80.212A Abrasion, left knee, initial encounter (principal); W18.39XA Other fall on same level, initial encounter
CPT/HCPCS: 73502; 73562; 99283

== ENCOUNTER 2022-07-13 18:24 | Emergency (ER) | payer MEDICARE, MEDICAID, SELFPAY ==
[2022-07-13 18:25] VITALS: BP 161/92; PULSE 77; RESP 16; TEMP 36.6; O2SAT 99
--- NOTE | 2022-07-13 18:32 | XRR_ITS ---
PROCEDURE INFORMATION: Exam: XR Left Hand Exam date and time: 07/13/2022 6:51 PM Age: 56 years old Clinical indication: Pain; Hand; Left; Additional info: Fall hand pain TECHNIQUE: Imaging protocol: Radiologic exam of the left hand. Views: 3 or more views. COMPARISON: No relevant prior studies available. FINDINGS: Bones/joints: No acute fracture. No dislocation. Normal bone mineralization. Mild degenerative changes at the 1st MCP joint and multiple interphalangeal joints in the left hand.No soft tissue swelling. No radiopaque foreign body. Soft tissues: See Bones/joints finding. XR/XR hand LT min 3V* [id number] IMPRESSION: 1. No acute fracture of the left hand. Followup imaging recommended in 7-14 days if clinical concern for fracture persists. 2. Incidental/nonacute findings are listed in the report.
--- NOTE | 2022-07-13 18:32 | XRR_ITS ---
PROCEDURE INFORMATION: Exam: XR Lumbosacral Spine Exam date and time: 07/13/2022 6:54 PM Age: 56 years old Clinical indication: Low back pain; Additional info: Fall, lbp TECHNIQUE: Imaging protocol: Radiologic exam of the lumbosacral spine. Views: 2 or 3 views. COMPARISON: No relevant prior studies available. FINDINGS: Bones/joints: Mild degenerative changes of the right and left sacroiliac joints. There are 6 [id number] vertebral bodies, these are designated L1 through L6. Small marginal osteophytes from L1-L2 through L6-S1. Mild facet sclerosis and hypertrophy at L5-L6 and L6-S1. Vertebral body height is maintained. No subluxation. Normal bone mineralization. Soft tissues: No paravertebral soft tissue abnormality. No radiopaque foreign body. Organs: Surgical clips in the right upper quadrant consistent with a previous cholecystectomy. XR/XR lumbar spine 2-3V* [id number] IMPRESSION: 1. There are 6 [id number] vertebral bodies, these are designated L1 through L6. 2. No acute fracture of the lumbar spine. CT scan would be recommended if there is continuing clinical concern for fracture. 3. Mild degenerative changes in the visualized spine. 4. Incidental/nonacute findings are listed in the report.
--- NOTE | 2022-07-13 18:34 | ED_ITS ---
HPI - General Adult General: Chief complaint: General Medical Stated complaint: PAIN ALL OVER Time Seen by Provider: 07/13/22 18:28 History of Present Illness: Patient presents to the ER by EMS with complaints of left hand pain left leg pain left low back pain and some shortness of breath. Patient states he is all started on 528 when she fell. Patient was seen here on that day and had x-rays of her hip and pelvis and knee all of which were benign except for some arthritic changes. Patient satting 98% on 2 L per nasal cannula which she wears at home. DuoNeb was given by EMS on route. 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 COPD (chronic obstructive pulmonary disease) Diastolic CHF Diastolic heart failure Emphysema, unspecified Essential (primary) hypertension GERD (gastroesophageal reflux disease) Hypothyroidism (acquired) Learning disability Lower extremity edema Moderate aortic regurgitation Pain of hand Seizure disorder SVT (supraventricular tachycardia) Systolic murmur Thyroid function study abnormality Venous stasis Surgical History H/O esophagogastroduodenoscopy 03/19/2019: Normal H/O thyroidectomy History of carpal tunnel surgery History of colonoscopy 03/19/2019: Normal repeat in 10 years Hx of section Family History Unknown No problems noted. Other Adopted Social History Smoking and tobacco status: never smoked Quit status (tobacco): has quit using tobacco Year quit tobacco: 2019 - 1-5 ciggs/day Alcohol intake: never Substance/Drug Use: never Lives independently: Yes Household members: none Housing: Apartment Current occupational status: disabled Do you think of yourself as: Straight/Heterosexual Current gender identity: Female Physical Exam Const: COMMON NORMALS: no acute distress, average body habitus, patient oriented x3, no limitations, healthy appearing, alert and well nourished HENMT: COMMON NORMALS: normocephalic, atraumatic, hearing grossly normal bilaterally, external ears normal, Normal external nose present and moist oral mucous membranes HEAD & SCALP: normocephalic and atraumatic NOSE: Normal external nose present EXTERNAL EAR: Yes external ears normal Neck/C-Spine: COMMON NORMALS: no JVD Chest: COMMONS NORMALS: normal inspection of the chest and normal palpation of entire chest wall Resp: COMMON NORMALS: normal respiratory effort, No retractions, No use of accessory muscles and clear to auscultation bilaterally AUSCULTATION: clear to auscultation bilaterally Cardio: COMMON NORMALS: no JVD, regular rate, regular rhythm, S1 normal heart sound present, S2 normal heart sound present, No gallops present (Cardio), No clicks present (Cardio), No murmurs present (Cardio) and No rub (Cardio) RATE: regular rate RHYTHM: regular rhythm HEART SOUNDS: S1 normal heart sound present and S2 normal heart sound present GI: COMMON NORMALS: Normal to inspection, nondistended, normoactive bowel uma nds present, Soft to palpation, non-tender, No hepatosplenomegaly present and no masses PALPATION: Yes Soft to palpation and Yes No hepatosplenomegaly present : COMMON NORMALS: Yes no CVA tenderness BLADDER/KIDNEY EXAM: Yes no CVA tenderness Back/Pelvis: COMMON NORMALS: no CVA tenderness LUMBAR SPINE/LOWER BACK: Yes normal to inspection, Yes pain with ROM and Yes paraspinal muscle tenderness Neuro: COMMON NORMALS: patient oriented x3 SENSORIUM/ORIENTATION: Yes alert Course Vital Signs: Vital signs: Vital Signs Temperature 97.9 F 07/13/22 18:25 Pulse Rate 75 07/13/22 18:59 Respiratory Rate 16 07/13/22 18:25 Blood Pressure 161/92 07/13/22 18:59 Pulse Oximetry 97 07/13/22 18:59 Oxygen Delivery Me thod Room Air 07/13/22 18:59 MDM - General Adult Medical Decision Making Patient presents to the ER by EMS with complaints of left-sided pain secondary to a fall 1 approximately 528. She was seen for this fall in this ER on that date. Patient is now complaining of left hand pain and low back pain these areas were x-rayed which were negative for any acute changes. Patient does have arthritis in these areas. Upon further examination of the patient patient was found sleeping soundly in the exam room. Patient be discharged home to follow- up with PCP in approximately 7 to 10 days as needed. Patient can take [id number] Tylenol as needed for pain. Differential Diagnosis Fall, contusion, fracture, arthritis Medical Records I reviewed the patient's medical records. Lab Data I reviewed the patient's lab results. Radiology Impressions Hand X-Ray 07/13/22 18:32 IMPRESSION: 1. No acute fracture of the left hand. Followup imaging recommended in 7-14 days if clinical concern for fracture persists. 2. Incidental/nonacute findings are listed in the report. Lumbar Spine X-Ray 07/13/22 18:32 IMPRESSION: 1. There are 6 [id number] vertebral bodies, these are designated L1 through L6. 2. No acute fracture of the lumbar spine. CT scan would be recommended if there is continuing clinical concern for fracture. 3. Mild degenerative changes in the visualized spine. 4. Incidental/nonacute findings are listed in the report. Discharge Plan Discharge Patient Disposition: Home Clinical Impression: Fall from ground level Low back pain Qualifiers: Chronicity: acute Back pain laterality: bilateral Sciatica presence: without sciatica Qualified Code(s): M54.50 - Low back pain, unspecified Condition: Stable Prescriptions: No Action montelukast [Singulair] 10 mg tablet 10 mg PO DAILY levetiracetam 250 mg tablet 250 mg PO BID aspirin [Adult Aspirin Regimen] 81 mg tablet,delayed release (DR/EC) 81 mg PO QAM pantoprazole [Protonix] 40 mg tablet,delayed release (DR/EC) 40 mg PO QAM albuterol sulfate [ProAir HFA] 90 mcg/actuation HFA aerosol inhaler 2 puff INHALATION Q6H PRN (Reason: Shortness Of Breath) atorvastatin 20 mg tablet 20 mg PO BEDTIME budesonide 0.5 mg/2 mL suspension for nebulization 0.5 mg inhalation BID PRN (Reason: Shortness Of Breath Or Wheezing) magnesium oxide 500 mg tablet 500 mg PO DAILY ergocalciferol (vitamin D2) [Vitamin D2] 1,250 mcg (50,000 unit) capsule 1,250 mcg PO DAILY potassium chloride 20 mEq tablet extended release 20 meq PO DAILY Qty: 90 3RF metoprolol succinate 50 mg tablet extended release 24 hr 100 mg PO BID Qty: 180 3RF bumetanide 2 mg tablet 2 mg PO DAILY hydroxyzine HCl 10 mg Tablet 10 mg PO TID PRN (Reason: Anxiety) spironolactone 25 mg tablet 25 mg PO DAILY sucralfate 1 gram tablet 1 g PO TID trazodone 50 mg tablet 100 mg PO BEDTIME duloxetine 60 mg capsule,delayed release(DR/EC) 60 mg PO DAILY cetirizine 10 mg tablet 10 mg PO DAILY ipratropium-albuterol 0.5 mg-3 mg(2.5 mg base)/3 mL solution for nebulization 3 ml inhalation Q6H PRN (Reason: unknown) albuterol sulfate 90 mcg/actuation HFA aerosol inhaler 2 inh inhalation Q4H PRN (Reason: shortness of breath or wheezing) Qty: 8.5 0RF levothyroxine 125 mcg tablet 125 mcg PO DAILY gabapentin 300 mg capsule See Rx Instructions .ROUTE .COMPLEX Qty: 18 0RF Rx Instructions: take one cap today. Take one cap twice a day tomorrow, then begin taking one cap three times a day until gone methocarbamol 750 mg tablet 750 mg PO Q8H PRN (Reason: Back muscle spasms and pain) Qty: 20 0RF Naprosyn 500 mg tablet 500 mg PO BID PRN (Reason: pain) Qty: 20 0RF Discharge Orders: Discharge ED (Routine); Ordered 07/13/22 Ordered By: Zach Magana Referrals: Татьяна Storm, NUTRITION COUNSELOR [Primary Care Provider] - Patient Instructions: Acute Low Back Pain (ED) Activity Restrictions/Additional Instructions: Please take [id number] Tylenol as directed for your acute pain needs. Please follow-up with your primary care practitioner for further evaluation and treatment. Please return to the ER if signs and symptoms worsen. Coding Level of Care Code ED Transportation Economics Teacher for Dc Serrato
[2022-07-13 18:59] VITALS: BP 161/92; PULSE 75; O2SAT 97
== END 2022-07-13 21:27 | disposition home or self-care (01) ==
PROVIDERS: Emergency Provider Emergency Medicine; PCP Nurse Practitioner Family
DX: M54.50 Low back pain, unspecified (principal); Z79.82 Long term (current) use of aspirin; J44.9 Chronic obstructive pulmonary disease, unspecified; I11.0 Hypertensive heart disease with heart failure; I50.30 Unspecified diastolic (congestive) heart failure; Z87.891 Personal history of nicotine dependence
CPT/HCPCS: 72100; 73130; 99283

== ENCOUNTER 2022-08-18 20:25 | Emergency (ER) | payer MEDICARE, MEDICAID, SELFPAY ==
[2022-08-18 20:30] VITALS: BP 150/80; PULSE 67; RESP 20; TEMP 36.8; O2SAT 94; BMI 38.0
--- NOTE | 2022-08-18 20:41 | ED_ITS ---
HPI - Fall General: Chief Complaint: Fall Stated Complaint: fall/Left leg pain Time Seen by Provider: 08/18/22 20:41 History of Present Illness: A 56-year-old female comes in today with injury to the left knee. Patient reports tripping and falling this morning around 11:00 and hurting her knee. Patient has an abrasion to the anterior knee. Patient is able to lift the leg off the bed. Patient has bilateral lower extremity edema. Patient is obese. Patient reports no injury to the head. Patient has a history of seizure disorder, anxiety disorder, GERD, peripheral edema, CHF, seasonal allergies, hypothyroidism, and reactive airway. 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 COPD (chronic obstructive pulmonary disease) Diastolic CHF Diastolic heart failure Emphysema, unspecified Essential (primary) hypertension GERD (gastroesophageal reflux disease) Hypothyroidism (acquired) Learning disability Lower extremity edema Moderate aortic regurgitation Pain of hand Seizure disorder SVT (supraventricular tachycardia) Systolic murmur Thyroid function study abnormality Venous stasis Surgical History H/O esophagogastroduodenoscopy 03/19/2019: Normal H/O thyroidectomy History of carpal tunnel surgery History of colonoscopy 03/19/2019: Normal repeat in 10 years Hx of section Family History Unknown No problems noted. Other Adopted Social History Smoking and tobacco status: never smoked Quit status (tobacco): has quit using tobacco Year quit tobacco: 2019 - 1-5 ciggs/day Alcohol intake: never Substance/Drug Use: never Lives independently: Yes Household members: none Housing: Apartment Current occupational status: disabled Do you think of yourself as: Straight/Heterosexual Current gender identity: Female Physical Exam Const: COMMON NORMALS: alert HENMT: COMMON NORMALS: atraumatic HEAD & SCALP: atraumatic Neck/C-Spine: COMMON NORMALS: full ROM Resp: COMMON NORMALS: normal respiratory effort Cardio: COMMON NORMALS: regular rate RATE: regular rate GI: COMMON NORMALS: non-tender Extremity: LEFT LOWER EXTREMITY: Yes hip joint (Normal range of motion) and Yes knee joint (Abrasion to the knee, mild swelling anterior knee) Left knee: Yes inspection, Yes palpation, Yes ROM (Decreased range of motion due to pain and swelling) and Yes neurovascular exam Neuro: SENSORIUM/ORIENTATION: Yes alert Skin: TRAUMA: abrasion (Left anterior knee.) Course Vital Signs: Vital signs: Vital Signs Temperature 98.3 F 08/18/22 20:30 Pulse Rate 60 08/18/22 21:01 Respiratory Rate 20 H 08/18/22 20:30 Blood Pressure 139/59 08/18/22 21:01 Pulse Oximetry 95 08/18/22 21:01 Oxygen Delivery Me thod Room Air 08/18/22 21:01 MDM - Fall Medical Decision Making 56-year-old female comes in today reporting a trip and fall this morning. Patient has an abrasion to her anterior left knee. Patient reports crepitus to the knee. On exam patient has some anterior swelling to the knee along with an abrasion. Patient has bilateral lower extremity edema. Patient has good range of motion of the left hip joint. Differential diagnosis includes but not limited to abrasion, contusion, sprain, fracture. X-ray noted no fracture but did note some tricompartment syndrome especially in the patellofemoral joint suggestive of some significant arthritis. Discussed patient's abnormalities especially with arthritis and recommendations for follow-up with primary care. Patient reported understanding of care plan and need for follow-up or return to the ER. Lab Data Radiology Impressions Knee X-Ray 08/18/22 20:44 IMPRESSION: 1. No acute bony injury. 2. 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 3. There is a small joint effusion. Internal derangement is not entirely excluded. If clinical scenario is unresolved, non emergent MR may be helpful. Discharge Plan Discharge Patient Disposition: Home Clinical Impression: Fall from slip, trip, or stumble Qualifiers: Encounter type: initial encounter Qualified Code(s): W01.0XXA - Fall on same level from slipping, tripping and stumbling without subsequent striking against object, initial encounter Abrasion of knee, left Qualifiers: Encounter type: initial encounter Qualified Code(s): S80.212A - Abrasion, left knee, initial encounter Contusion of knee Qualifiers: Encounter type: initial encounter Laterality: left Qualified Code(s): S80.02XA - Contusion of left knee, initial encounter Condition: Stable Prescriptions: No Action montelukast [Singulair] 10 mg tablet 10 mg PO DAILY levetiracetam 250 mg tablet 250 mg PO BID aspirin [Adult Aspirin Regimen] 81 mg tablet,delayed release (DR/EC) 81 mg PO QAM pantoprazole [Protonix] 40 mg tablet,delayed release (DR/EC) 40 mg PO QAM albuterol sulfate [ProAir HFA] 90 mcg/actuation HFA aerosol inhaler 2 puff INHALATION Q6H PRN (Reason: Shortness Of Breath) atorvastatin 20 mg tablet 20 mg PO BEDTIME budesonide 0.5 mg/2 mL suspension for nebulization 0.5 mg inhalation BID PRN (Reason: Shortness Of Breath Or Wheezing) magnesium oxide 500 mg tablet 500 mg PO DAILY ergocalciferol (vitamin D2) [Vitamin D2] 1,250 mcg (50,000 unit) capsule 1,250 mcg PO DAILY potassium chloride 20 mEq tablet extended release 20 meq PO DAILY Qty: 90 3RF metoprolol succinate 50 mg tablet extended release 24 hr 100 mg PO BID Qty: 180 3RF bumetanide 2 mg tablet 2 mg PO DAILY hydroxyzine HCl 10 mg Tablet 10 mg PO TID PRN (Reason: Anxiety) spironolactone 25 mg tablet 25 mg PO DAILY sucralfate 1 gram tablet 1 g PO TID trazodone 50 mg tablet 100 mg PO BEDTIME duloxetine 60 mg capsule,delayed release(DR/EC) 60 mg PO DAILY cetirizine 10 mg tablet 10 mg PO DAILY ipratropium-albuterol 0.5 mg-3 mg(2.5 mg base)/3 mL solution for nebulization 3 ml inhalation Q6H PRN (Reason: unknown) albuterol sulfate 90 mcg/actuation HFA aerosol inhaler 2 inh inhalation Q4H PRN (Reason: shortness of breath or wheezing) Qty: 8.5 0RF levothyroxine 125 mcg tablet 125 mcg PO DAILY gabapentin 300 mg capsule See Rx Instructions .ROUTE .COMPLEX Qty: 18 0RF Rx Instructions: take one cap today. Take one cap twice a day tomorrow, then begin taking one cap three times a day until gone methocarbamol 750 mg tablet 750 mg PO Q8H PRN (Reason: Back muscle spasms and pain) Qty: 20 0RF Naprosyn 500 mg tablet 500 mg PO BID PRN (Reason: pain) Qty: 20 0RF Discharge Orders: Discharge ED (Routine); Ordered 08/18/22 Ordered By: Raul Troncoso Referrals: Татьяна Storm, CUSTOMS CONSULTANT [Primary Care Provider] - Discharge Diet: Usual diet Discharge Activity: Increase activity as tolerated Patient Instructions: Abrasion (ED), Knee Pain (ED) Activity Restrictions/Additional Instructions: Clean wound twice daily and apply [id number] antibiotic ointment. Use acetaminophen and/or ibuprofen as needed for pain and discomfort. Use ice packs for further pain relief. No fracture was noted on the x-ray. You do have some arthritis in the knee which may have been aggravated from the injury. Follow-up with primary care in 1 week for recheck. Return to ED for new concerns. Coding Level of Care Code ED Hydroelectric Plant Operator for Dc Serrato
--- NOTE | 2022-08-18 20:44 | XRR_ITS ---
PROCEDURE INFORMATION: Exam: XR Left Knee Exam date and time: 08/18/2022 8:49 PM Age: 56 years old Clinical indication: Injury or trauma; Fall; Blunt trauma; Knee; Left; Additional info: Fall injury TECHNIQUE: Imaging protocol: Radiologic exam of the left knee. Views: 3 views. COMPARISON: CR XR knee LT 3V* [id number] 09/16/2019 2:41 PM FINDINGS: Bones/joints: No evidence of acute fracture. Small joint effusion. There is sharpening of the intercondylar spines. Amorphous calcification projects over the intercondylar notch, unchanged from prior exam several years ago. Tricompartmental osteoarthritis is noted, most severe in the patellofemoral compartment. Soft tissues: Normal. XR/XR knee LT 3V* [id number] IMPRESSION: 1. No acute bony injury. 2. 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 3. There is a small joint effusion. Internal derangement is not entirely excluded. If clinical scenario is unresolved, non emergent MR may be helpful.
[2022-08-18 21:01] VITALS: BP 139/59; PULSE 60; O2SAT 95
[2022-08-18 21:30] VITALS: BP 140/68; PULSE 67; O2SAT 95
[2022-08-18] MEDS: bacitracin ointment Pkt 1 EACH TOPICAL (21:37)
[2022-08-18 22:01] VITALS: BP 107/67; PULSE 68; RESP 20; O2SAT 96
== END 2022-08-18 22:04 | disposition home or self-care (01) ==
PROVIDERS: Emergency Provider Nurse Practitioner Family; PCP Nurse Practitioner Family
DX: S80.212A Abrasion, left knee, initial encounter (principal); S80.02XA Contusion of left knee, initial encounter; W01.0XXA Fall on same level from slipping, tripping and stumbling without subsequent striking against object, initial encounter
CPT/HCPCS: 73562; 99283

== ENCOUNTER → 2022-08-24 13:46 | Outpatient (BNVA) | payer MEDICARE, MEDICAID, SELFPAY | PROVIDERS: PCP Nurse Practitioner Family; Visit Provider Nurse Practitioner Family | DX: I11.0 Hypertensive heart disease with heart failure (principal); I50.32 Chronic diastolic (congestive) heart failure | CPT/HCPCS: 99214 ==

== ENCOUNTER 2022-08-26 17:05 | Inpatient (IN) | payer MEDICARE, MEDICAID, SELFPAY ==
[2022-08-26] VITALS (14 sets, daily range): BP systolic 113–157; BP diastolic 57–94; PULSE 54–73; RESP 13–24; TEMP 36.4–36.8; O2SAT 94–100; BMI 37.5
--- NOTE | 2022-08-26 17:22 | XRR_ITS ---
PROCEDURE INFORMATION: Exam: XR Chest Exam date and time: 08/26/2022 6:16 PM Age: 56 years old Clinical indication: Dyspnea TECHNIQUE: Imaging protocol: Radiologic exam of the chest. Views: 1 view. COMPARISON: CR XR chest 1V portable [id number] 06/24/2022 8:05 PM FINDINGS: Lungs: Unremarkable. No consolidation. Pleural spaces: Unremarkable. No pleural effusion. No pneumothorax. Heart/Mediastinum: Unremarkable. No cardiomegaly. Bones/joints: Unremarkable. XR/XR chest 1V portable [id number] IMPRESSION: No acute findings.
[2022-08-26 17:49] LABS: ABG PH Result 7.38 (7.35-7.45); Arterial Blood Gas Hematocrit 41.2 % (37-47); Blood Gas Allen Test Pos; Blood Gas Operator Identificat CAK; Blood Gas Sample Site Radial, left; Blood Gas Sample Type Arterial; Carboxyhemoglobin 1.6 %THgb (0.4-20.1); HGB O2 Sat 90.4 % (95-100); Methemoglobin 0.5 % (0.4-1.5); Oxygen Device NC; PO2 ABG 76.1 mmHg (80.0-100.0); Total Hemoglobin 13.5 g/dL (12-16)
[2022-08-26 17:50] LABS: ABG PCO2 66.7 mmHg (35-45)
[2022-08-26 17:53] LABS: Basophils # 0.1 10^3/uL (0.0-0.1); Basophils % 0.7 %; Eosinophils # 0.2 10^3/uL (0.0-0.8); Eosinophils % 2.1 %; Hematocrit 44.6 % (37.0-47.0); Hemoglobin 13.5 g/dL (11.5-15.3); Lymphocytes % 34.1 %; Mean Corpuscular HGB Conc 30.3 g/dL (30.0-36.0); Mean Corpuscular Hemoglobin 27.4 pg (28.0-34.0); Mean Corpuscular Volume 90.7 fl (81-99); Mean Platelet Volume 10.1 fL (7.4-10.4); Monocytes # 0.7 10^3/uL (0.2-0.9); Neutrophils # 4.82 10^3/uL (1.8-7.7); Neutrophils % 54.8 %; Nucleated Red Blood Cells % 0 %; Platelet Count 287 10^3/cmm (130-400); Red Blood Count 4.92 10^6/uL (4.1-5.3); Red Cell Distribution Width 13.4 % (12.1-15.1); White Blood Count 8.8 10^3/uL (4.0-10.0)
[2022-08-26 18:13] LABS: Lactic Sepsis W/Reflex 1.3 mmol/L (0.5-2.2)
[2022-08-26 18:24] LABS: Alanine Aminotransferase 10 U/L (0-33); Albumin Level 4.5 g/dL (3.5-5.2); Alkaline Phosphatase 93 U/L (35-105); Anion Gap 12.3 (5-19); Aspartate Amino Transferase 14 U/L (0-32); Blood Urea Nitrogen 19 mg/dL (6-20); Calcium 9.4 mg/dL (8.5-10.5); Carbon Dioxide 37 mmol/L (22-29); Chloride 96 mmol/L (98-107); Globulin 2.5 g/dL (1.3-4.6); Glomerular Filtration Rate 57.1 mL/min (90-130); Glucose 105 mg/dL (65-115); NT Pro B Type Natriuretic Pept 227 pg/mL (0-125); Osmolality Calculated 295 mOsm/kg (285-295); Potassium 4.3 mmol/L (3.5-5.1); Sodium 141 mmol/L (136-145)
--- NOTE | 2022-08-26 19:59 | W.ED.SOB ---
HPI - SOB/Dyspnea General: Chief Complaint: Shortness of Breath/Dyspnea Stated Complaint: pcp sent for severe sob Time Seen by Provider: 08/26/22 17:24 History of Present Illness: HPI Narrative: 56-year-old female with complex medical history including CHF, COPD, asthma, GERD, hyperlipidemia, thyroid disorder and seizure disorder. She presents emergency room with shortness of breath within the past few days. Patient was seen and evaluated at a local clinic and sent to the emergency room for further evaluation and treatment. Upon present emergency room patient appeared to be lethargic with mild respiratory distress. Patient with audible wheezing and diffuse leg swelling. She revealed some cough denies coughing up blood or vomiting blood. Ever, chills, recent foreign travel or sick contact. 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 COPD (chronic obstructive pulmonary disease) Diastolic CHF Diastolic heart failure Emphysema, unspecified Essential (primary) hypertension GERD (gastroesophageal reflux disease) Hypothyroidism (acquired) Learning disability Lower extremity edema Moderate aortic regurgitation Pain of hand Seizure disorder SVT (supraventricular tachycardia) Systolic murmur Thyroid function study abnormality Venous stasis Surgical History H/O esophagogastroduodenoscopy 03/19/2019: Normal H/O thyroidectomy History of carpal tunnel surgery History of colonoscopy 03/19/2019: Normal repeat in 10 years Hx of section Family History Unknown No problems noted. Other Adopted Social History (Updated 08/26/22 @ 20:59 by Brennen Torres MD) Smoking and tobacco status: former smoker Quit status (tobacco): has quit using tobacco Year quit tobacco: 2019 - 1-5 ciggs/day Alcohol intake: never Substance/Drug Use: never Lives independently: Yes Household members: none Housing: Apartment Current occupational status: disabled Do you think of yourself as: Straight/Heterosexual Current gender identity: Female Physical Exam Const: EXAM LIMITATIONS: altered mental status GENERAL APPEARANCE: other (somnolence ); not in distress, not ill appearing, not Edematous and no odor of alcohol detected Eye: COMMON NORMALS: Equal, round and reactive pupils present, EOMs intact bilaterally, conjunctivae normal, no scleral icterus, no papilledema, normal visual odonnell by confrontation and fundi normal bilaterally CONJUNCTIVA: Yes conjunctivae normal PUPIL: Yes Equal, round and reactive pupils present DIRECT OPHTHALMOSCOPY: Yes no papilledema and Yes fundi normal bilaterally Neck/C-Spine: COMMON NORMALS: full ROM, no lymphadenopathy, supple, no meningeal signs, no JVD, Thyroid normal and No carotid bruits THYROID: Thyroid normal Chest: COMMONS NORMALS: normal inspection of the chest, normal palpation of entire chest wall, normal inspection of the breasts and normal palpation of the breasts Breast/axilla inspection: Yes normal inspection of the breasts BREAST/AXILLA PALPATION: Yes normal palpation of the breasts Resp: COMMON NORMALS: negative for percussion normal AUSCULTATION: crackles, wheezes, diminished lung sounds, no bronchovesicular breath sounds, no egophony, no tactile fremitus, No rub present and no vesicular sounds PERCUSSION: percussion abnormal, no dullness to percussion and no hyperresonance to percussion Cardio: COMMON NORMALS: no JVD Extremity: GENERAL: No amputation, No calf tenderness, No clubbing, No cyanosis, Yes edema, No hypertrophy, No mottling and No pallor Neuro: MENINGEAL SIGNS: Yes no meningeal signs Course Reevaluation(s): Reevaluation #1: Patient was placed on BiPAP and upon reassessment patient improved slightly mentation lopez. Consultations: Consultation #1: Jennifer patient with the hospitalist Dr. Ching Vital Signs: Vital signs: Vital Signs Temperature 97.5 F L 08/26/22 17:11 Pulse Rate 56 L 08/26/22 20:33 Respiratory Rate 19 H 08/26/22 20:29 Blood Pressure 128/59 08/26/22 18:30 Pulse Oximetry 100 08/26/22 20:33 Oxygen Delivery Me thod BiPAP 08/26/22 20:29 Oxygen Flow Rate 3 08/26/22 17:41 Fraction of Inspir ed Oxygen 30 08/26/22 20:33 MDM - SOB/Dyspnea Medical Decision Making Patient was made comfort emergency room had extensive work-up including x-ray labs EKG and troponin. Patient was placed on BiPAP after abnormal ABG. She was given DuoNeb and steroids Differential Diagnosis Likely acute exacerbation of chronic obstructive airways disease, congestive heart failure, community acquired pneumonia, asthma with exacerbation and pulmonary embolism Lab Data 08/26/22 17:40 08/26/22 17:40 Labs/Radiology: Radiology Impressions Chest X-Ray 08/26/22 17:22 IMPRESSION: No acute findings. Laboratory Results WBC 8.8 10^3/uL (4.0-10.0) 08/26/22 17:40 RBC 4.92 10^6/uL (4.1-5.3) 08/26/22 17:40 Hgb 13.5 g/dL (11.5-15.3) 08/26/22 17:40 Hct 44.6 % (37.0-47.0) 08/26/22 17:40 MCV 90.7 fl (81-99) 08/26/22 17:40 MCH 27.4 pg (28.0-34.0) L 08/26/22 17:40 MCHC 30.3 g/dL (30.0-36.0) 08/26/22 17:40 RDW 13.4 % (12.1-15.1) 08/26/22 17:40 Plt Count 287 10^3/cmm (130-400) 08/26/22 17:40 MPV 10.1 fL (7.4-10.4) 08/26/22 17:40 Neut % (Auto) 54.8 % 08/26/22 17:40 Lymph % (Auto) 34.1 % 08/26/22 17:40 Norman % (Auto) 8.0 % 08/26/22 17:40 Eos % (Auto) 2.1 % 08/26/22 17:40 Baso % (Auto) 0.7 % 08/26/22 17:40 Neut # (Auto) 4.82 10^3/uL (1.8-7.7) 08/26/22 17:40 Lymph # (Auto) 3.0 10^3/uL (0.8-4.8) 08/26/22 17:40 Norman # (Auto) 0.7 10^3/uL (0.2-0.9) 08/26/22 17:40 Eos # (Auto) 0.2 10^3/uL (0.0-0.8) 08/26/22 17:40 Baso # (Auto) 0.1 10^3/uL (0.0-0.1) 08/26/22 17:40 Nucleated RBC % (auto) 0 % 08/26/22 17:40 Nucleated RBCs # 0.0 /100WBC 08/26/22 17:40 Specimen Type Arterial 08/26/22 17:36 Sample Site Radial, left 08/26/22 17:36 ABG pH 7.38 (7.35-7.45) 08/26/22 17:36 ABG pCO2 66.7 mmHg (35-45) H* 08/26/22 17:36 ABG pO2 76.1 mmHg (80.0-100.0) L 08/26/22 17:36 ABG HCO3 39.0 mmol/L (22-26) H 08/26/22 17:36 ABG Base Excess 11.0 mmol/L (-2.0-2.0) H 08/26/22 17:36 Nestor Test Pos 08/26/22 17:36 Hematocrit 41.2 % (37-47) 08/26/22 17:36 Hgb O2 Saturation 90.4 % (95-100) L 08/26/22 17:36 Carboxyhemoglobin 1.6 %THgb (0.4-20.1) 08/26/22 17:36 Methemoglobin 0.5 % (0.4-1.5) 08/26/22 17:36 Total Hemoglobin 13.5 g/dL (12-16) 08/26/22 17:36 O2 Delivery Device Nc 08/26/22 17:36 O2 Liters/Min 2.0 % 08/26/22 17:36 FiO2 0.0 % 08/26/22 17:36 Clay Dry Press Mixer Operator ID Cak 08/26/22 17:36 Sodium 141 mmol/L (136-145) 08/26/22 17:40 Potassium 4.3 mmol/L (3.5-5.1) 08/26/22 17:40 Chloride 96 mmol/L (98-107) L 08/26/22 17:40 Carbon Dioxide 37 mmol/L (22-29) H 08/26/22 17:40 Anion Gap 12.3 (5-19) 08/26/22 17:40 BUN 19 mg/dL (6-20) 08/26/22 17:40 Creatinine 1.0 mg/dL (0.5-0.9) H 08/26/22 17:40 GFR Calculation 57.1 mL/min (90-130) L 08/26/22 17:40 Glucose 105 mg/dL (65-115) 08/26/22 17:40 Calculated Osmolality 295 mOsm/kg (285-295) 08/26/22 17:40 Lactic Acid 1.3 mmol/L (0.5-2.2) 08/26/22 17:40 Calcium 9.4 mg/dL (8.5-10.5) 08/26/22 17:40 Total Bilirubin 1.0 mg/dL (0.15-1.2) 08/26/22 17:40 AST 14 U/L (0-32) 08/26/22 17:40 ALT 10 U/L (0-33) 08/26/22 17:40 Alkaline Phosphatase 93 U/L (35-105) 08/26/22 17:40 Troponin T Baseline 13 ng/L (0-10) H 08/26/22 17:40 Troponin T 120 Minute 12.95 ng/L (0-10) H 08/26/22 21:12 Delta Troponin T -0.05 ABS# (0-10) L 08/26/22 21:12 NT-Pro-B Natriuret Pep 227 pg/mL (0-125) H 08/26/22 17:40 Total Protein 7.0 g/dL (6.6-8.7) 08/26/22 17:40 Albumin 4.5 g/dL (3.5-5.2) 08/26/22 17:40 Globulin 2.5 g/dL (1.3-4.6) 08/26/22 17:40 Imaging Data CXR: My impression: No acute findings on the x-ray. EKG Data EKG 1: Computer Generated Interpretation: Sinus rhythm with a rate of75, no ST elevation ST changes. Critical Care Time Critical Care Time: Critical Care Time: Yes Total Critical Care Time: 45 Attestation: Time spent to order labs reviewed past medical records, discussed patient with family, discussed with hospitalist, reassess patient after each treatment. Discharge Plan Discharge Patient Disposition: Admitted As Inpatient Admit Provider: Brennen Torres Clinical Impression: Acute exacerbation of chronic obstructive airways disease, Acute respiratory failure with hypoxia and hypercarbia, Acute dyspnea Condition: Stable Coding Level of Care Code ED Business Mgr for Dc Serrato
[2022-08-26] MEDS: methylPREDNISolone sod succ 40 mg SDV 80 MG IVP (20:14)
[2022-08-26] MEDS: ipratropium-albuterol 3 mL Neb INHALATION ×2 (20:29→20:31)
[2022-08-26] MEDS: albuterol 2.5 mg/3 mL Neb 5 MG INHALATION (20:29)
--- NOTE | 2022-08-26 20:56 | PM.HP ---
Providers/Chief Complaint Admitting Physician: Brennen Torres MD Primary Care Provider: Татьяна Storm Chief Complaint: pcp sent for severe sob History of Present Illness Crystal Pierre is a 56 year old female presenting to the emergency department with 2 weeks of shortness of breath, wheezing, nonproductive cough. She is not for sure if she has had any chest discomfort. She reports she is more swollen than usual. No nausea or vomiting. Relates no fever. Conversation is somewhat difficulty secondary to hearing deficit(hears a little bit better on the left) as well as her being on BiPAP. She came to the emergency department she was placed on BiPAP, received a breathing treatment, and a dose of Solu-Medrol. She reports she is not really better yet. Review of Systems General: Reports: 10 or more systems reviewed and unremarkable except in HPI and below Card: Reports: chest pain and dyspnea on exertion Resp: Reports: dyspnea, non-productive cough and wheezing GI: Reports: abdominal pain, nausea and vomiting Medications/Allergies Home Medications Medication Instructions Recorded Confirmed Last Taken Type albuterol sulfate 90 mcg/actuation 2 puff inhalation Q6H PRN 02/15/19 08/24/22 10/23/19 History aerosol inhaler (ProAir HFA) Shortness Of Breath aspirin 81 mg tablet,delayed 81 mg PO QAM 02/15/19 08/24/22 06/21/21 History release (Adult Aspirin Regimen) levetiracetam 250 mg tablet 250 mg PO BID 02/15/19 08/24/22 06/21/21 History montelukast 10 mg tablet 10 mg PO DAILY 02/15/19 08/24/22 06/21/21 History (Singulair) pantoprazole 40 mg tablet,delayed 40 mg PO QAM 02/15/19 08/24/22 06/21/21 History release (Protonix) sucralfate 1 gram tablet 1 g PO TID 09/16/19 08/24/22 06/21/21 History bumetanide 2 mg tablet 2 mg PO DAILY 06/16/20 08/24/22 06/21/21 History budesonide 0.5 mg/2 mL suspension 0.5 mg inhalation BID PRN 09/22/20 08/24/22 Unknown History for nebulization Shortness Of Breath Or Wheezing spironolactone 25 mg tablet 25 mg PO DAILY 10/26/20 08/24/22 06/21/21 History hydroxyzine HCl 10 mg tablet 10 mg PO TID PRN Anxiety 01/20/21 08/24/22 Unknown History duloxetine 60 mg capsule,delayed 60 mg PO DAILY 04/05/21 08/24/22 06/21/21 History release trazodone 50 mg tablet 100 mg PO BEDTIME 04/05/21 08/24/22 06/20/21 History atorvastatin 20 mg tablet 20 mg PO BEDTIME 06/17/21 08/24/22 06/20/21 History albuterol sulfate 90 mcg/actuation 2 inh inhalation Q4H PRN shortness 01/11/22 08/24/22 Unknown Rx aerosol inhaler of breath or wheezing #8.5 grams cetirizine 10 mg tablet 10 mg PO DAILY 01/11/22 08/24/22 Unknown History ipratropium 0.5 mg-albuterol 3 mg 3 ml inhalation Q6H PRN unknown 01/11/22 08/24/22 Unknown History (2.5 mg base)/3 mL nebulization soln gabapentin 300 mg capsule See Rx Instructions .Route 05/09/22 08/24/22 Unknown Rx .COMPLEX #18 caps potassium chloride 20 mEq 20 meq PO DAILY #90 tabs 05/09/22 08/24/22 Unknown Rx tablet,extended release methocarbamol 750 mg tablet 750 mg PO Q8H PRN Back muscle 05/18/22 08/24/22 Unknown Rx spasms and pain #20 tabs ergocalciferol (vitamin D2) 1,250 1,250 mcg PO DAILY 05/20/22 08/24/22 Unknown History mcg (50,000 unit) capsule (Vitamin D2) levothyroxine 125 mcg tablet 125 mcg PO DAILY 05/20/22 08/24/22 Unknown History magnesium oxide 500 mg tablet 500 mg PO DAILY 05/20/22 08/24/22 Unknown History metoprolol succinate 50 mg 100 mg PO BID #180 tabs 05/23/22 08/24/22 Unknown Rx tablet,extended release 24 hr naproxen 500 mg tablet (Naprosyn) 500 mg PO BID PRN pain #20 tabs 07/03/22 08/24/22 Unknown Rx acetaminophen 500 mg capsule 500 mg PO Q6H PRN 08/24/22 08/24/22 Unknown History azithromycin 250 mg tablet See Rx Instructions PO .COMPLEX 08/24/22 08/24/22 Unknown History Allergies Allergy/AdvReac Type Severity Reaction Status Date / Time chlorpromazine Allergy Unknown ALGY-Rash Verified 08/24/22 12:00 diphenhydramine Allergy Unknown Unknown Verified 08/24/22 12:00 Iodinated Contrast Media Allergy Unknown ALGY-Hives Verified 08/24/22 12:00 tramadol Allergy Unknown Verified 08/24/22 12:00 amoxicillin AdvReac Unknown ADR-Nausea Verified 08/24/22 12:00 codeine AdvReac Unknown ADR-Vomitin Verified 08/24/22 12:00 g Penicillins AdvReac Unknown ADR-Vomitin Verified 08/24/22 12:00 g PFSH Acute PFSH: Medical History Asthma Atypical chest pain Cervical radiculopathy Chest pain 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 COPD (chronic obstructive pulmonary disease) Diastolic CHF Diastolic heart failure Emphysema, unspecified Essential (primary) hypertension GERD (gastroesophageal reflux disease) Hypothyroidism (acquired) Learning disability Lower extremity edema Moderate aortic regurgitation Pain of hand Seizure disorder SVT (supraventricular tachycardia) Systolic murmur Thyroid function study abnormality Venous stasis Surgical History H/O esophagogastroduodenoscopy 03/19/2019: Normal H/O thyroidectomy History of carpal tunnel surgery History of colonoscopy 03/19/2019: Normal repeat in 10 years Hx of section Family History Unknown No problems noted. Other Adopted Social History (Updated 08/26/22 @ 20:59 by Brennen Torres MD) Smoking and tobacco status: former smoker Quit status (tobacco): has quit using tobacco Year quit tobacco: 2019 - 1-5 ciggs/day Alcohol intake: never Substance/Drug Use: never Lives independently: Yes Household members: none Housing: Apartment Current occupational status: disabled Do you think of yourself as: Straight/Heterosexual Current gender identity: Female Vitals/I&O/Wt Last Vital Signs Temp 97.5 F L 08/26/22 17:11 Pulse 56 L 07/21/23 20:33 Resp 19 H 08/26/22 20:29 BP 128/59 08/26/22 18:30 Pulse Ox 100 08/26/22 20:33 O2 Del Method BiPAP 08/26/22 20:29 O2 Flow Rate 3 08/26/22 17:41 FiO2 30 08/26/22 20:33 Weight last 48 hrs Weight 108.862 kg Physical Exam Narrative: General exam demonstrates a white female, on BiPAP, with audible wheezing, who is difficult to communicate with. HEENT: Pupils equally round. Left esotropia is noted. BiPAP is on and oropharynx not examined Neck is supple no lymphadenopathy thyromegaly Cardiovascular regular rate and rhythm, no murmur Lungs bilateral expiratory wheezes Abdomen is soft. Obese. No obvious organomegaly. Nontender. exams deferred Extremities 3+ edema bilaterally. No cyanosis or clubbing Skin no rash Neuro no obvious focal deficits. Data 08/26/22 17:40 08/26/22 17:40 Other Labs: EKG demonstrates sinus rhythm, normal axis, bradycardic, no acute changes by my read Chest x-ray by my read demonstrates no obvious infiltrate. Poor penetration likely secondary to body habitus A blood culture was obtained ABG demonstrated pH 7.38, PCO2 67, PO2 76 on 2 L LFTs are normal Albumin and calcium is normal Troponin baseline is pending. BNP is 227 Micro: Microbiology 08/26/22 18:10 Blood Culture - Preliminary Blood SPECIMEN COLLECTED 08/26/22 17:40 Blood Culture - Preliminary Blood SPECIMEN COLLECTED A&P Assessment and plan (1) Acute exacerbation of chronic obstructive airways disease: Patient has evidence of acute COPD exacerbation Continue IV steroids. These were started in the ER. Doxycycline twice daily No need for sputum culture, no specific infiltrate on x-ray DuoNeb every 4 hours Budesonide twice daily Wean BiPAP as tolerated (2) Acute respiratory failure with hypoxia and hypercarbia: See above Patient may very well have underlying sleep apnea. This should be evaluated as an outpatient. (3) Diastolic heart failure: She has significant edema. Her BNP is slightly elevated. She has some evidence of acute diastolic heart failure. She is on a fair amount of Bumex at home. Initiate Lasix 80 mg every 12 hours BMP, magnesium daily Last echocardiogram demonstrated 1/4 diastolic dysfunction, intact EF, moderate aortic regurgitation in September 2019. We will go ahead and repeat echo. Note that her angiogram at that point demonstrated clear coronaries. Qualifiers: Heart failure chronicity: chronic Qualified Code(s): I50.32 - Chronic diastolic (congestive) heart failure (4) Seizures: Seizure precautions Continue Keppra Plan Multiple other medical problems as outlined in past medical history Full code Lovenox for DVT prophylaxis Attestations Medical Necessity Statement*: Will need greater than 2 midnight stay for acute respiratory failure associated with acute diastolic heart failure and acute COPD exacerbation. Diagnoses Acute exacerbation of chronic obstructive airways disease J44.1 Acute respiratory failure with hypoxia and hypercarbia J96.01; J96.02 Diastolic heart failure I50.32 Heart failure chronicity: chronic Seizures R56.9 Time Spent (min) 50
[2022-08-26 21:06] LABS: Troponin(5th) Baseline 13 ng/L (0-10)
[2022-08-26 21:39] LABS: Troponin 5 2HR 12.95 ng/L (0-10)
[2022-08-26 21:41] LABS: Troponin 5 2HR Delta -0.05 ABS# (0-10)
[2022-08-26] MEDS: FUROsemide 10 mg/mL SDV 10mL 80 MG IVP (22:25)
[2022-08-26] MEDS: enoxaparin 40 mg/0.4 mL Syringe SUBCUT (22:44)
[2022-08-27] VITALS (34 sets, daily range): BP systolic 116–152; BP diastolic 64–92; PULSE 56–73; RESP 14–24; TEMP 36.5–37.1; O2SAT 9–98
[2022-08-27] MEDS: ipratropium-albuterol 3 mL Neb INHALATION ×5 (00:17→16:09)
[2022-08-27 03:38] LABS: Basophils % 0.3 %; Hematocrit 44.1 % (37.0-47.0); Hemoglobin 13.4 g/dL (11.5-15.3); Lymphocytes % 15.3 %; Mean Corpuscular HGB Conc 30.4 g/dL (30.0-36.0); Mean Corpuscular Hemoglobin 27.3 pg (28.0-34.0); Mean Platelet Volume 10.2 fL (7.4-10.4); Monocytes % 0.4 %; Neutrophils % 83.7 %; Nucleated Red Blood Cells % 0 %; Platelet Count 275 10^3/cmm (130-400); Red Cell Distribution Width 13.4 % (12.1-15.1); White Blood Count 6.8 10^3/uL (4.0-10.0)
[2022-08-27 04:02] LABS: Alanine Aminotransferase 9 U/L (0-33); Albumin Level 4.3 g/dL (3.5-5.2); Alkaline Phosphatase 98 U/L (35-105); Anion Gap 16.2 (5-19); Aspartate Amino Transferase 15 U/L (0-32); Blood Urea Nitrogen 19 mg/dL (6-20); Calcium 9.3 mg/dL (8.5-10.5); Carbon Dioxide 36 mmol/L (22-29); Chloride 93 mmol/L (98-107); Globulin 2.9 g/dL (1.3-4.6); Glomerular Filtration Rate 64.5 mL/min (90-130); Glucose 146 mg/dL (65-115); Magnesium 1.7 mg/dL (1.7-2.3); Osmolality Calculated 297 mOsm/kg (285-295); Potassium 4.2 mmol/L (3.5-5.1); Sodium 141 mmol/L (136-145); Total Protein 7.2 g/dL (6.6-8.7)
[2022-08-27] MEDS: pantoprazole DR 40 mg Tablet PO (05:57)
[2022-08-27] MEDS: aspirin 81 mg EC Tablet PO (05:57)
[2022-08-27] MEDS: budesonide 0.5 mg/2 mL Neb INHALATION ×3 (07:41→20:31)
[2022-08-27] MEDS: sucralfate 1 gm Tablet PO ×3 (08:28→20:21)
[2022-08-27] MEDS: levETIRAcetam 500 mg Tablet 250 MG PO ×2 (08:28→17:18)
[2022-08-27] MEDS: levothyroxine 125 mcg Tablet PO (08:29)
[2022-08-27] MEDS: metoprolol succinate ER (24 HR) 50 mg Tablet 100 MG PO ×2 (08:29→17:19)
[2022-08-27] MEDS: montelukast sodium 10 mg Tablet PO (08:29)
[2022-08-27] MEDS: doxycycline 100 mg Tablet PO ×2 (08:30→17:18)
[2022-08-27] MEDS: duloxetine 60 mg Capsule PO (08:30)
[2022-08-27] MEDS: dexamethasone 10 mg/mL INJ 6 MG IVP (08:31)
[2022-08-27] MEDS: FUROsemide 10 mg/mL SDV 10mL 80 MG IVP ×2 (08:31→20:21)
[2022-08-27] MEDS: acetaminophen 325 mg Tablet 650 MG PO (15:26)
--- NOTE | 2022-08-27 17:13 | PM.PN ---
Subjective Subjective: Patient was seen and examined this morning she was complaining of SOB. Medications: Medication Review Details: Generic Name Dose Route Start Last Admin Trade Name Joeyq PRN Reason Stop Dose Admin Acetaminophen 650 mg 08/26/22 21:31 08/27/22 15:26 Acetaminophen 32 5 Mg Tablet PO 650 mg Q6H PRN Administration Mild/Mod Pain Or Temp >/= 101 Albuterol/Ipratrop ium 3 ml 08/27/22 04:00 08/27/22 16:09 Ipratropium-Albu terol 3 Ml Neb INHALATION 3 ml Q4H.RESPIRATORY S CH Administration Aspirin 81 mg 08/27/22 06:00 08/27/22 05:57 Aspirin 81 Mg Ec Tablet PO 81 mg QAM KENY Administration Budesonide 0.5 mg 08/27/22 09:00 08/27/22 10:01 Budesonide 0.5 M g/2 Ml Neb INHALATION 0.5 mg BID KENY Administration Dexamethasone 6 mg 08/27/22 09:00 08/27/22 08:31 Dexamethasone 10 Mg/Ml Inj IVP 6 mg Q24H KENY Administration Doxycycline Monohy drate 100 mg 08/27/22 09:00 08/27/22 08:30 Doxycycline 100 Mg Tablet PO 100 mg BID KENY Administration Protocol Duloxetine HCl 60 mg 08/27/22 09:00 08/27/22 08:30 Duloxetine 60 Mg Capsule PO 60 mg DAILY KENY Administration Enoxaparin Sodium 40 mg 08/26/22 21:31 08/26/22 22:44 Enoxaparin 40 Mg /0.4 Ml Syringe SUBCUT 40 mg Q24H KENY Administration Furosemide 80 mg 08/26/22 21:00 08/27/22 08:31 Furosemide 10 Mg /Ml Sdv 10ml IVP 80 mg Q12H KENY Administration Levetiracetam 250 mg 08/27/22 09:00 08/27/22 08:28 Levetiracetam 50 0 Mg Tablet PO 250 mg BID KENY Administration Levothyroxine Sodi um 125 mcg 08/27/22 09:00 08/27/22 08:29 Levothyroxine 12 5 Mcg Tablet PO 125 mcg DAILY KENY Administration Metoprolol Succina te 100 mg 08/27/22 09:00 08/27/22 08:29 Metoprolol Succi matteo Er (24 Hr) 50 Mg Tablet PO 100 mg BID KENY Administration Montelukast Sodium 10 mg 08/27/22 09:00 08/27/22 08:29 Montelukast Sodi um 10 Mg Tablet PO 10 mg DAILY KENY Administration Pantoprazole Sodiu m 40 mg 08/27/22 06:00 08/27/22 05:[address] 40 Mg Tablet PO 40 mg QAM KENY Administration Sucralfate 1 gm 08/27/22 09:00 08/27/22 15:24 Sucralfate 1 Gm Tablet PO 1 gm TID KENY Administration Vitals/I&O/Wt Last Vital Signs Temp 98.6 F 08/27/22 16:00 Pulse 66 08/27/22 16:00 Resp 14 08/27/22 16:00 BP 152/79 08/27/22 16:00 Pulse Ox 94 08/27/22 16:00 O2 Del Method Nasal Cannula 08/27/22 16:00 O2 Flow Rate 3 08/27/22 16:00 FiO2 30 08/27/22 03:44 08/27/22 08/27/22 08/27/22 06:59 14:59 22:59 Intake Total 240 / 240 Output Total 1470 / 1470 1000 / 1000 Balance -1230 / -1230 -1000 / -1000 Weight last 48 hrs Weight 108.862 kg Physical Exam HENMT: COMMON NORMALS: normocephalic and atraumatic HEAD & SCALP: normocephalic and atraumatic Resp: OTHER: B/L wheezing present in both the lungs odonnell Cardio: COMMON NORMALS: regular rate, regular rhythm, S1 normal heart sound present, S2 normal heart sound present, No gallops present (Cardio), No murmurs present (Cardio), No rub (Cardio) and Peripheral pulses 2+ throughout RATE: regular rate RHYTHM: regular rhythm HEART SOUNDS: S1 normal heart sound present and S2 normal heart sound present PERIPHERAL PULSES: Peripheral pulses 2+ throughout GI: COMMON NORMALS: Normal to inspection, nondistended, normoactive bowel sounds present, Soft to palpation, non-tender, No hepatosplenomegaly present and no masses AUSCULTATION: Yes normoactive bowel sounds PALPATION: Yes Soft to palpation and Yes No hepatosplenomegaly present RECTAL EXAM: deferred Extremity: COMMON NORMALS: no clubbing, cyanosis or edema and no pedal edema Urinary Catheter Management: Camara: Cath Placed During This Visit: yes Reason for Continuing Indwelling Catheter: Accurate Measurement of Urinary Output in Critically Ill Patients Urinary Catheter Date of Insertion: 08/26/22 Urinary Catheter Time of Insertion: 22:00 Data 08/27/22 03:25 08/27/22 03:25 Micro: Microbiology 08/26/22 18:10 Blood Culture - Preliminary Blood SPECIMEN COLLECTED 08/26/22 17:40 Blood Culture - Preliminary Blood SPECIMEN COLLECTED A&P Assessment and plan (1) Acute exacerbation of chronic obstructive airways disease: Continue Dexamethasone 6 mg I.V DAILY, DUO nebs, doxycycline, budesonide inhaler, BIAPAP. xray chest has been reviewed. (2) Acute respiratory failure with hypoxia and hypercarbia: See above Patient may very well have underlying sleep apnea. This should be evaluated as an outpatient. (3) Diastolic heart failure: Acute on chronic Decompensation of HFpEF Follow 2D ECHO,has slightly elevated BNp can be relatively low in the presence of morbid obesity, no significant edema. Last 2D Echo done in 2019 has been reviewed: Continue lasix 80 MG I.V BID Monitor I/O Charting Keep k>4, Mg>2 Monitor BMP Continue telemetry monitoring. 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 Qualifiers: Heart failure chronicity: chronic Qualified Code(s): I50.32 - Chronic diastolic (congestive) heart failure (4) Seizures: Seizure precautions Continue Keppra Plan Full code Lovenox for DVT prophylaxis Attestations Medical Necessity Statement*: Needs to be in hospital for I.V Steroids as well as I.V Diuresis. Coding Level of Care Code Acute Code for Chg Fwd Diagnoses Acute exacerbation of chronic obstructive airways disease J44.1 Acute respiratory failure with hypoxia and hypercarbia J96.01; J96.02 Diastolic heart failure I50.32 Heart failure chronicity: chronic Seizures R56.9
--- NOTE | 2022-08-27 19:00 | PC.NURSE ---
Patient c/o chest discomfort during deep breaths. Provided instruction related to COPD and CHF with fluid overload to include the use of lasix. Patient verbalized understanding but will require reinforcement. Will continue to monitor and provide education.
[2022-08-27] MEDS: trazodone 50 mg Tablet 100 MG PO (20:21)
[2022-08-27] MEDS: atorvastatin 40 mg Tablet PO (20:22)
[2022-08-27] MEDS: enoxaparin 40 mg/0.4 mL Syringe SUBCUT (20:22)
[2022-08-28] VITALS (76 sets, daily range): BP systolic 109–153; BP diastolic 64–85; PULSE 52–77; RESP 13–24; TEMP 36.5–37.1; O2SAT 88–100
[2022-08-28] MEDS: pantoprazole DR 40 mg Tablet PO (05:30)
[2022-08-28] MEDS: aspirin 81 mg EC Tablet PO (05:30)
--- NOTE | 2022-08-28 08:30 | PM.PN ---
Subjective Subjective: Patient was seen and examined this morning her shortness of breath is improving, bilateral lower extremity swelling is improving Medications: Medication Review Details: Generic Name Dose Route Start Last Admin Trade Name Mee PRN Reason Stop Dose Admin Acetaminophen 650 mg 08/26/22 21:31 08/27/22 15:26 Acetaminophen 32 5 Mg Tablet PO 650 mg Q6H PRN Administration Mild/Mod Pain Or Temp >/= 101 Albuterol/Ipratrop ium 3 ml 08/27/22 04:00 08/28/22 05:45 Ipratropium-Albu terol 3 Ml Neb INHALATION Not Given Q4H.RESPIRATORY S CH Aspirin 81 mg 08/27/22 06:00 08/28/22 05:30 Aspirin 81 Mg Ec Tablet PO 81 mg QAM KENY Administration Atorvastatin Calci um 40 mg 08/27/22 21:00 08/27/22 20:22 Atorvastatin 40 Mg Tablet PO 40 mg BEDTIME KENY Administration Dexamethasone 6 mg 08/27/22 09:00 08/27/22 08:31 Dexamethasone 10 Mg/Ml Inj IVP 6 mg Q24H KENY Administration Doxycycline Monohy drate 100 mg 08/27/22 09:00 08/27/22 17:18 Doxycycline 100 Mg Tablet PO 100 mg BID KENY Administration Protocol Duloxetine HCl 60 mg 08/27/22 09:00 08/27/22 08:30 Duloxetine 60 Mg Capsule PO 60 mg DAILY KENY Administration Enoxaparin Sodium 40 mg 08/26/22 21:31 08/27/22 20:22 Enoxaparin 40 Mg /0.4 Ml Syringe SUBCUT 40 mg Q24H KENY Administration Furosemide 80 mg 08/26/22 21:00 08/27/22 20:21 Furosemide 10 Mg /Ml Sdv 10ml IVP 80 mg Q12H KENY Administration Levetiracetam 250 mg 08/27/22 09:00 08/27/22 17:18 Levetiracetam 50 0 Mg Tablet PO 250 mg BID KENY Administration Levothyroxine Sodi um 125 mcg 08/27/22 09:00 08/27/22 08:29 Levothyroxine 12 5 Mcg Tablet PO 125 mcg DAILY KENY Administration Metoprolol Succina te 100 mg 08/27/22 09:00 08/27/22 17:19 Metoprolol Succi matteo Er (24 Hr) 50 Mg Tablet PO 100 mg BID KENY Administration Montelukast Sodium 10 mg 08/27/22 09:00 08/27/22 08:29 Montelukast Sodi um 10 Mg Tablet PO 10 mg DAILY KENY Administration Pantoprazole Sodiu m 40 mg 08/27/22 06:00 08/28/22 05:[address] 40 Mg Tablet PO 40 mg QAM KENY Administration Sucralfate 1 gm 08/27/22 09:00 08/27/22 20:21 Sucralfate 1 Gm Tablet PO 1 gm TID KENY Administration Trazodone HCl 100 mg 08/27/22 21:00 08/27/22 20:21 Trazodone 50 Mg Tablet PO 100 mg BEDTIME KENY Administration Vitals/I&O/Wt Last Vital Signs Temp 97.7 F 08/28/22 04:00 Pulse 63 08/28/22 05:41 Resp 17 08/28/22 04:00 BP 119/64 08/28/22 04:00 Pulse Ox 98 08/28/22 05:41 O2 Del Method BiPAP 08/28/22 04:00 O2 Flow Rate 2 08/28/22 00:46 FiO2 30 08/28/22 05:41 08/27/22 08/28/22 08/28/22 22:59 06:59 14:59 Intake Total 400 / 400 640 / 1040 Output Total 250 / 1250 1250 / 2500 Balance 150 / -850 -610 / -1460 Weight last 48 hrs Weight 108.862 kg Physical Exam HENMT: COMMON NORMALS: normocephalic and atraumatic HEAD & SCALP: normocephalic and atraumatic Resp: OTHER: Minimal bilateral wheezing Cardio: COMMON NORMALS: regular rate, regular rhythm, S1 normal heart sound present, S2 normal heart sound present, No gallops present (Cardio), No murmurs present (Cardio), No rub (Cardio) and Peripheral pulses 2+ throughout RATE: regular rate RHYTHM: regular rhythm HEART SOUNDS: S1 normal heart sound present and S2 normal heart sound present PERIPHERAL PULSES: Peripheral pulses 2+ throughout GI: COMMON NORMALS: Normal to inspection, nondistended, normoactive bowel sounds present, Soft to palpation, non-tender, No hepatosplenomegaly present and no masses AUSCULTATION: Yes normoactive bowel sounds PALPATION: Yes Soft to palpation and Yes No hepatosplenomegaly present RECTAL EXAM: deferred Urinary Catheter Management: Camara: Cath Placed During This Visit: yes Reason for Continuing Indwelling Catheter: Acute Urinary Retention or Obstruction Urinary Catheter Date of Insertion: 08/26/22 Urinary Catheter Time of Insertion: 22:00 Data 08/27/22 03:25 08/27/22 03:25 Micro: Microbiology 08/26/22 18:10 Blood Culture - Preliminary Blood NEGATIVE TO DATE 08/26/22 17:40 Blood Culture - Preliminary Blood NEGATIVE TO DATE A&P Assessment and plan (1) Acute exacerbation of chronic obstructive airways disease: Continue Dexamethasone 6 mg I.V DAILY, DUO nebs, doxycycline, budesonide inhaler, BIAPAP. xray chest has been reviewed. (2) Acute respiratory failure with hypoxia and hypercarbia: See above Patient may very well have underlying sleep apnea. This should be evaluated as an outpatient. (3) Diastolic heart failure: Acute on chronic Decompensation of HFpEF Follow 2D ECHO,has slightly elevated BNp can be relatively low in the presence of morbid obesity, no significant edema. Last 2D Echo done in 2019 has been reviewed: Continue lasix 80 MG I.V BID Monitor I/O Charting Keep k>4, Mg>2 Monitor BMP Continue telemetry monitoring. 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 Qualifiers: Heart failure chronicity: chronic Qualified Code(s): I50.32 - Chronic diastolic (congestive) heart failure (4) Seizures: Seizure precautions Continue Keppra Plan Full code Lovenox for DVT prophylaxis Attestations Medical Necessity Statement*: Patient needs in hospital for management of COPD exacerbation decompensated heart failure. Coding Level of Care Code Acute Code for Chg Fwd Diagnoses Acute exacerbation of chronic obstructive airways disease J44.1 Acute respiratory failure with hypoxia and hypercarbia J96.01; J96.02 Diastolic heart failure I50.32 Heart failure chronicity: chronic Seizures R56.9
[2022-08-28] MEDS: ipratropium-albuterol 3 mL Neb INHALATION ×3 (08:33→23:42)
--- NOTE | 2022-08-28 09:01 | PC.NURSE ---
Patient did not care for breakfast that was brought. Had the kitchen bring cereal.
[2022-08-28] MEDS: sucralfate 1 gm Tablet PO ×3 (09:21→20:10)
[2022-08-28] MEDS: metoprolol succinate ER (24 HR) 50 mg Tablet 100 MG PO ×2 (09:21→17:26)
[2022-08-28] MEDS: levothyroxine 125 mcg Tablet PO (09:22)
[2022-08-28] MEDS: duloxetine 60 mg Capsule PO (09:22)
[2022-08-28] MEDS: levETIRAcetam 500 mg Tablet 250 MG PO ×2 (09:22→17:25)
[2022-08-28] MEDS: montelukast sodium 10 mg Tablet PO (09:22)
[2022-08-28] MEDS: doxycycline 100 mg Tablet PO ×2 (09:22→17:26)
[2022-08-28] MEDS: dexamethasone 10 mg/mL INJ 6 MG IVP (09:23)
[2022-08-28] MEDS: FUROsemide 10 mg/mL SDV 10mL 80 MG IVP ×2 (09:23→20:10)
--- NOTE | 2022-08-28 14:30 | USCV_ITS ---
Crystal Pierre Age: 56 Gender: F : 1965 Exam Date: 08/28/2022 16:11 Ordering Phys: Brent Cedeño MD Technologist: Ramana Torres Exam Location: [facility] – [place] Indication: murmur BP: 130 / 69 HR: 67 Rhythm: Sinus Technical Quality: Adequate MEASUREMENTS (Male / Female) Normal Values 2D ECHO LV Diastolic Diameter PLAX 3.2 cm 4.2 - 5.9 / 3.9 - 5.3 cm LV Systolic Diameter PLAX 2.7 cm IVS Diastolic Thickness 1.0 cm 0.6 - 1.0 / 0.6 - 0.9 cm IVS Systolic Thickness 1.4 cm LVPW Diastolic Thickness 1.1 cm 0.6 - 1.0 / 0.6 - 0.9 cm LVPW Systolic Thickness 1.4 cm LVOT Diameter 2.0 cm LV Ejection Fraction 2D Teich 11.9 % LV Ejection Fraction MOD 2C 49.7 % LV Ejection Fraction 2C AL 49.7 % LA Diameter 3.6 cm M-MODE Aortic Annulus Diameter 3.1 cm LA Ao Ratio MM 1.4 MV E Point Septal Separation 0.9 cm DOPPLER AV Peak Velocity 200.3 cm/s LVOT Peak Velocity 100.0 cm/s AV Area Cont Eq vti 2.1 cm squared AV Area Cont Eq pk 1.6 cm squared MV Area PHT 2.4 cm squared Mitral E to A Ratio 0.7 MV E' Velocity 35.0 cm/s Mitral E to MV E' Ratio 8.4 Mitral E to LV E' Lateral Ratio 8.0 Mitral E to LV E' Septal Ratio 9.0 TR Peak Velocity 139.0 cm/s TR Peak Gradient 7.7 mmHg TV Peak E Velocity 67.0 cm/s Right Atrial Pressure 3.0 mmHg Pulmonary Artery Systolic Pressu 10.7 mmHg RV Acceleration Time 0.2 s FINDINGS Left Ventricle Normal left ventricular size, systolic function and wall thickness, with no regional wall motion abnormalities. Left ventricular ejection fraction is estimated at 65 %. Normal diastolic function. Right Ventricle Probably normal right ventricular size and systolic function. Right Atrium Right atrium not well visualized. Left Atrium Normal left atrial size. Mitral Valve Structurally normal mitral valve. No mitral valve stenosis. Trace mitral valve regurgitation. Aortic Valve Mildly thickened trileaflet aortic valve. No aortic valve stenosis. Mild to moderate aortic valve regurgitation. Tricuspid Valve Structurally normal tricuspid valve. Trace tricuspid valve regurgitation. Pulmonic Valve Structurally normal pulmonic valve. No pulmonary valve stenosis. Trace pulmonary valve regurgitation. Pericardium No pericardial effusion. Aorta Normal size aortic root and proximal ascending aorta. IVC Inferior vena cava not visualized. CONCLUSIONS 1. Normal left ventricular size, systolic function and wall thickness, with no regional wall motion abnormalities. Left ventricular ejection fraction is estimated at 65 %. Normal diastolic function. 2. Mild to moderate aortic valve regurgitation. 4. No change when compared to study dated 08/30/21. Amanda Bourgeois MD (Electronically Signed) Final Date: 29 August 2022 06:03 S
--- NOTE | 2022-08-28 17:41 | PC.NURSE ---
Encouraged activity today but patient refused several times throughout the day. Patient was encouraged to sit up in chair or at least to sit on the edge of bed at meal time. Patient refused all attempts of activity.
[2022-08-28] MEDS: atorvastatin 40 mg Tablet PO (20:10)
[2022-08-28] MEDS: trazodone 50 mg Tablet 100 MG PO (21:16)
[2022-08-28] MEDS: enoxaparin 40 mg/0.4 mL Syringe SUBCUT (21:23)
[2022-08-29] VITALS (18 sets, daily range): BP systolic 112–151; BP diastolic 64–84; PULSE 54–73; RESP 12–18; TEMP 36.4–36.8; O2SAT 91–97
[2022-08-29] MEDS: ipratropium-albuterol 3 mL Neb INHALATION ×5 (03:46→20:37)
[2022-08-29 04:39] LABS: Basophils % 0.1 %; Hematocrit 46.1 % (37.0-47.0); Hemoglobin 14.5 g/dL (11.5-15.3); Lymphocytes # 2.1 10^3/uL (0.8-4.8); Lymphocytes % 19.7 %; Mean Corpuscular HGB Conc 31.5 g/dL (30.0-36.0); Mean Corpuscular Hemoglobin 27.4 pg (28.0-34.0); Mean Corpuscular Volume 87.1 fl (81-99); Mean Platelet Volume 10.7 fL (7.4-10.4); Monocytes % 9.7 %; Neutrophils # 7.32 10^3/uL (1.8-7.7); Nucleated Red Blood Cells % 0 %; Platelet Count 320 10^3/cmm (130-400); Red Blood Count 5.29 10^6/uL (4.1-5.3); Red Cell Distribution Width 13.5 % (12.1-15.1); White Blood Count 10.5 10^3/uL (4.0-10.0)
[2022-08-29 04:59] LABS: Alanine Aminotransferase 9 U/L (0-33); Albumin Level 4.5 g/dL (3.5-5.2); Alkaline Phosphatase 90 U/L (35-105); Aspartate Amino Transferase 13 U/L (0-32); Blood Urea Nitrogen 30 mg/dL (6-20); Calcium 9.6 mg/dL (8.5-10.5); Carbon Dioxide 33 mmol/L (22-29); Chloride 93 mmol/L (98-107); Globulin 2.7 g/dL (1.3-4.6); Glomerular Filtration Rate 57.1 mL/min (90-130); Glucose 119 mg/dL (65-115); Osmolality Calculated 295 mOsm/kg (285-295); Sodium 139 mmol/L (136-145); Total Bilirubin 0.9 mg/dL (0.15-1.2); Total Protein 7.2 g/dL (6.6-8.7)
[2022-08-29 05:02] LABS: Anion Gap 16.5 (5-19); Potassium 3.5 mmol/L (3.5-5.1)
[2022-08-29] MEDS: pantoprazole DR 40 mg Tablet PO (05:30)
[2022-08-29] MEDS: aspirin 81 mg EC Tablet PO (05:30)
[2022-08-29] MEDS: budesonide 0.5 mg/2 mL Neb INHALATION ×2 (07:45→20:37)
[2022-08-29] MEDS: levETIRAcetam 500 mg Tablet 250 MG PO ×2 (08:30→17:41)
[2022-08-29] MEDS: levothyroxine 125 mcg Tablet PO (08:30)
[2022-08-29] MEDS: metoprolol succinate ER (24 HR) 50 mg Tablet 100 MG PO ×2 (08:30→17:42)
[2022-08-29] MEDS: sucralfate 1 gm Tablet PO ×3 (08:30→20:51)
[2022-08-29] MEDS: montelukast sodium 10 mg Tablet PO (08:30)
[2022-08-29] MEDS: doxycycline 100 mg Tablet PO ×2 (08:31→17:41)
[2022-08-29] MEDS: duloxetine 60 mg Capsule PO (08:31)
[2022-08-29] MEDS: dexamethasone 10 mg/mL INJ 6 MG IVP (08:31)
[2022-08-29] MEDS: FUROsemide 10 mg/mL SDV 10mL 80 MG IVP (08:31)
--- NOTE | 2022-08-29 11:07 | PC.SOCIAL ---
[facility] IMM updated: Pg 2 of [facility] dated and reviewed with pt. Copy provided. Copy dated, initialed and placed in chart at 0901.
--- NOTE | 2022-08-29 12:38 | PM.PN ---
Subjective Subjective: Afebrile, hemodynamically stable. Currently on 3 L/min which is her baseline home oxygen requirement. States that lower extremity edema continues to improve. Still slightly dyspneic upon getting out of bed and ambulating, however she was able to ambulate yesterday and give herself a bath. Medications: Reviewed: Yes Medication Review Details: Generic Name Dose Route Start Last Admin Trade Name Mee PRN Reason Stop Dose Admin Acetaminophen 650 mg 08/26/22 21:31 08/27/22 15:26 Acetaminophen 32 5 Mg Tablet PO 650 mg Q6H PRN Administration Mild/Mod Pain Or Temp >/= 101 Albuterol/Ipratrop ium 3 ml 08/27/22 04:00 08/28/22 05:45 Ipratropium-Albu terol 3 Ml Neb INHALATION Not Given Q4H.RESPIRATORY S CH Aspirin 81 mg 08/27/22 06:00 08/28/22 05:30 Aspirin 81 Mg Ec Tablet PO 81 mg QAM KENY Administration Atorvastatin Calci um 40 mg 08/27/22 21:00 08/27/22 20:22 Atorvastatin 40 Mg Tablet PO 40 mg BEDTIME KENY Administration Dexamethasone 6 mg 08/27/22 09:00 08/27/22 08:31 Dexamethasone 10 Mg/Ml Inj IVP 6 mg Q24H KENY Administration Doxycycline Monohy drate 100 mg 08/27/22 09:00 08/27/22 17:18 Doxycycline 100 Mg Tablet PO 100 mg BID KENY Administration Protocol Duloxetine HCl 60 mg 08/27/22 09:00 08/27/22 08:30 Duloxetine 60 Mg Capsule PO 60 mg DAILY KENY Administration Enoxaparin Sodium 40 mg 08/26/22 21:31 08/27/22 20:22 Enoxaparin 40 Mg /0.4 Ml Syringe SUBCUT 40 mg Q24H KENY Administration Furosemide 80 mg 08/26/22 21:00 08/27/22 20:21 Furosemide 10 Mg /Ml Sdv 10ml IVP 80 mg Q12H KENY Administration Levetiracetam 250 mg 08/27/22 09:00 08/27/22 17:18 Levetiracetam 50 0 Mg Tablet PO 250 mg BID KENY Administration Levothyroxine Sodi um 125 mcg 08/27/22 09:00 08/27/22 08:29 Levothyroxine 12 5 Mcg Tablet PO 125 mcg DAILY KENY Administration Metoprolol Succina te 100 mg 08/27/22 09:00 08/27/22 17:19 Metoprolol Succi matteo Er (24 Hr) 50 Mg Tablet PO 100 mg BID KENY Administration Montelukast Sodium 10 mg 08/27/22 09:00 08/27/22 08:29 Montelukast Sodi um 10 Mg Tablet PO 10 mg DAILY KENY Administration Pantoprazole Sodiu m 40 mg 08/27/22 06:00 08/28/22 05:[address] 40 Mg Tablet PO 40 mg QAM KENY Administration Sucralfate 1 gm 08/27/22 09:00 08/27/22 20:21 Sucralfate 1 Gm Tablet PO 1 gm TID KENY Administration Trazodone HCl 100 mg 08/27/22 21:00 08/27/22 20:21 Trazodone 50 Mg Tablet PO 100 mg BEDTIME KENY Administration Vitals/I&O/Wt Last Vital Signs Temp 97.7 F 08/29/22 11:58 Pulse 61 08/29/22 11:58 Resp 17 08/29/22 11:58 BP 147/84 08/29/22 11:58 Pulse Ox 96 08/29/22 11:58 O2 Del Method Nasal Cannula 08/29/22 11:58 O2 Flow Rate 3 08/29/22 11:40 FiO2 30 08/28/22 20:00 08/28/22 08/29/22 08/29/22 22:59 06:59 14:59 Intake Total 720 / 1518 880 / 2398 240 / 240 Output Total 1520 / 1994 1100 / 3095 1050 / 1050 Balance -800 / -477 -220 / -697 -810 / -810 Physical Exam Narrative: General: No acute distress, AO x3 HEENT: PERRLA, pupils bilaterally equal and reactive, pallors not present Chest: Wheezing to auscultation left lung base CVS: S1-S2 regular, no murmurs, no tachycardia, no gallops, no rubs Abdomen: Soft, nontender, no organomegaly, bowel sounds present Neuro: No focal deficits, no facial deformity, AO x3, power 5/5 in all limbs Extremities: Lower extremity pitting edema, per patient much improved over previous exams Urinary Catheter Management: Camara: Cath Placed During This Visit: yes Reason for Continuing Indwelling Catheter: Accurate Measurement of Urinary Output in Critically Ill Patients Urinary Catheter Date of Insertion: 08/26/22 Urinary Catheter Time of Insertion: 22:00 Data 08/29/22 03:53 08/29/22 03:53 A&P Assessment and plan (1) Acute exacerbation of chronic obstructive airways disease: Continue Dexamethasone 6 mg I.V DAILY---> Transition to p.o. prednisone today , DUO nebs, doxycycline, budesonide inhaler, BIAPAP. xray chest without any acute consolidation. (2) Acute respiratory failure with hypoxia and hypercarbia: multifactorial, related to acute on chronic COPD exacerbation, CHF and possible sleep apnea (3) Diastolic heart failure: Acute on chronic Decompensation of HFpEF Follow 2D ECHO,has slightly elevated BNp can be relatively low in the presence of morbid obesity Last 2D Echo on 08/28 Normal left ventricular size, systolic function and wall ?thickness, with no regional wall motion abnormalities. Left ?ventricular ejection fraction is estimated at 65 %. Normal ?diastolic function. Continue lasix 80 MG I.V BID ----> transition to po lasix 80 ng BID today Monitor I/O Charting Keep k>4, Mg>2 Monitor BMP Continue telemetry monitoring. 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 Qualifiers: Heart failure chronicity: chronic Qualified Code(s): I50.32 - Chronic diastolic (congestive) heart failure (4) Seizures: Seizure precautions Continue Keppra Plan Full code Lovenox for DVT prophylaxis Attestations Medical Necessity Statement*: transition iv to po lasix, change iv to po steroids, if continues to do well, anticipate discharge over next 24 hrs Coding Level of Care Code Acute Code for Chg Fwd High MDM includes number and complexity of problems actively addressed during encounter, amount and/or complexity of data reviewed/ordered and described risk of complication, morbidity or mortality of management as documented Diagnoses Acute exacerbation of chronic obstructive airways disease J44.1 Acute respiratory failure with hypoxia and hypercarbia J96.01; J96.02 Diastolic heart failure I50.32 Heart failure chronicity: chronic Seizures R56.9
[2022-08-29] MEDS: FUROsemide 40 mg Tablet 80 MG PO (15:28)
[2022-08-29] MEDS: enoxaparin 40 mg/0.4 mL Syringe SUBCUT (20:51)
[2022-08-29] MEDS: atorvastatin 40 mg Tablet PO (20:51)
[2022-08-29] MEDS: trazodone 50 mg Tablet 100 MG PO (20:55)
[2022-08-30] VITALS (9 sets, daily range): BP systolic 116–144; BP diastolic 58–81; PULSE 49–86; RESP 16–22; TEMP 36.6; O2SAT 95–99
[2022-08-30] MEDS: pantoprazole DR 40 mg Tablet PO (05:29)
[2022-08-30] MEDS: aspirin 81 mg EC Tablet PO (05:29)
[2022-08-30 05:53] LABS: Basophils % 0.1 %; Hematocrit 43.9 % (37.0-47.0); Hemoglobin 13.8 g/dL (11.5-15.3); Lymphocytes # 2.6 10^3/uL (0.8-4.8); Lymphocytes % 23.2 %; Mean Corpuscular HGB Conc 31.4 g/dL (30.0-36.0); Mean Corpuscular Hemoglobin 27.3 pg (28.0-34.0); Mean Corpuscular Volume 86.9 fl (81-99); Mean Platelet Volume 10.8 fL (7.4-10.4); Monocytes % 8.7 %; Neutrophils # 7.39 10^3/uL (1.8-7.7); Neutrophils % 67.4 %; Nucleated Red Blood Cells % 0 %; Platelet Count 294 10^3/cmm (130-400); Red Blood Count 5.05 10^6/uL (4.1-5.3); Red Cell Distribution Width 13.4 % (12.1-15.1)
[2022-08-30 06:12] LABS: Alanine Aminotransferase 9 U/L (0-33); Albumin Level 4.2 g/dL (3.5-5.2); Alkaline Phosphatase 82 U/L (35-105); Anion Gap 16.6 (5-19); Aspartate Amino Transferase 12 U/L (0-32); Blood Urea Nitrogen 29 mg/dL (6-20); Calcium 9.2 mg/dL (8.5-10.5); Carbon Dioxide 33 mmol/L (22-29); Chloride 93 mmol/L (98-107); Globulin 2.3 g/dL (1.3-4.6); Glomerular Filtration Rate 57.1 mL/min (90-130); Glucose 103 mg/dL (65-115); Osmolality Calculated 294 mOsm/kg (285-295); Potassium 3.6 mmol/L (3.5-5.1); Sodium 139 mmol/L (136-145); Total Bilirubin 1.2 mg/dL (0.15-1.2); Total Protein 6.5 g/dL (6.6-8.7)
[2022-08-30] MEDS: montelukast sodium 10 mg Tablet PO (09:09)
[2022-08-30] MEDS: metoprolol succinate ER (24 HR) 50 mg Tablet 100 MG PO (09:09)
[2022-08-30] MEDS: duloxetine 60 mg Capsule PO (09:09)
[2022-08-30] MEDS: sucralfate 1 gm Tablet PO (09:09)
[2022-08-30] MEDS: levothyroxine 125 mcg Tablet PO (09:09)
[2022-08-30] MEDS: levETIRAcetam 500 mg Tablet 250 MG PO (09:09)
[2022-08-30] MEDS: predniSONE 20 mg Tablet 40 MG PO (09:09)
[2022-08-30] MEDS: doxycycline 100 mg Tablet PO (09:10)
[2022-08-30] MEDS: budesonide 0.5 mg/2 mL Neb INHALATION (09:52)
[2022-08-30] MEDS: ipratropium-albuterol 3 mL Neb INHALATION ×2 (09:52→11:18)
[2022-08-30] MEDS: FUROsemide 40 mg Tablet 80 MG PO (09:53)
--- NOTE | 2022-08-30 10:56 | PC.SOCIAL ---
LATE ENTRY: IMM IMM update: pg 2 of IMM dated and reviewed with pt. Copy provided. Copy dated/initialed and placed in pt chart at [id number] 08/29/22
--- NOTE | 2022-08-30 11:44 | PM.DCS ---
Discharge Providers Date of Admission: 08/26/22 21:22 Date of Discharge: August 30, 2022 Attending Provider at Admission: Brennen Torres MD Attending Provider at Discharge: La Martin MD Primary Care Provider: Татьяна Storm Diagnoses at Discharge Discharge Diagnosis (1) Acute exacerbation of chronic obstructive airways disease: Status: Acute (2) Acute respiratory failure with hypoxia and hypercarbia: Status: Acute (3) Diastolic heart failure: Status: Acute Qualifiers: Heart failure chronicity: chronic Qualified Code(s): I50.32 - Chronic diastolic (congestive) heart failure (4) Seizures: Status: Acute Reason for Visit Reason for Visit: pcp sent for severe sob Hospital Course Hospital Course Crystal Pierre is a 56 year old female presenting to the emergency department with 2 weeks of shortness of breath, wheezing, nonproductive cough.?Hospital course as below: (1) Acute exacerbation of chronic obstructive airways disease: She received treatment with e Dexamethasone 6 mg I.V DAILY---> Transition to p.o. prednisone on 08/29, recommeded to continue over next week She received scheduled nebulization with DUO nebs, budesonide and prn BIPAP. xray chest without any acute consolidation.? received doxycycline for possibility of atypical pneumonia contributing (2) Acute respiratory failure with hypoxia and hypercarbia: multifactorial, related to acute on chronic COPD exacerbation, CHF and possible sleep apnea, consider outpatient evaluation with formal sleep study. (3) Diastolic heart failure: Acute on chronic Decompensation of HFpEF 2D Echo on 08/28?showed Normal left ventricular size, systolic function and wall ?thickness, with no regional wall motion abnormalities. Left ?ventricular ejection fraction is estimated at 65 %. Normal ?diastolic function. She recieved treatment with lasix? 80 MG I.V BID ----> transitioned to po Bumex at discharge (home medication). Dose increased to Bumex 2 mg BID from 2mg OD until follow up with cardiology as outpatient in one week. 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 No c/o chest pain Metoprolol succinate was dose adjusted from 100mg BID to 75mg BID due to bradycardia with HR 49-53 Physical Exam Narrative: General: No acute distress, AO x3 HEENT: PERRLA, pupils bilaterally equal and reactive, pallors not present Chest: Normal vesicular breath sounds, no added sounds, equal good air entry bilaterally CVS: S1-S2 regular, no murmurs, no tachycardia, no gallops, no rubs Abdomen: Soft, nontender, no organomegaly, bowel sounds present Neuro: No focal deficits, no facial deformity, AO x3, power 5/5 in all limbs Extremities: Mild B/L edema, non pitting, per patient much improved compared to day of admission Urinary Catheter Management: Camara: Cath Placed During This Visit: yes, but has since been removed by the nurse Reason for Continuing Indwelling Catheter: Accurate Measurement of Urinary Output in Critically Ill Patients Urinary Catheter Date of Insertion: 08/26/22 Urinary Catheter Time of Insertion: 22:00 Date Urinary Catheter Removed: 08/29/22 Time Urinary Catheter Discontinued: 14:12 Discharge Data Studies Completed and Pending Completed Studies During Hospitalization Category Date Time Status XR chest 1V portable [id number] Stat Exams 08/26/22 17:22 Completed CV. echo complete* [id number] Routine Ultrasound 08/28/22 14:30 Completed Pending at discharge Category Date Time Status Blood Culture Stat Lab 08/26/22 18:10 Results Radiology Impressions Chest X-Ray 08/26/22 17:22 IMPRESSION: No acute findings. Laboratory Results WBC 11.0 10^3/uL (4.0-10.0) H 08/30/22 05:10 RBC 5.05 10^6/uL (4.1-5.3) 08/30/22 05:10 Hgb 13.8 g/dL (11.5-15.3) 08/30/22 05:10 Hct 43.9 % (37.0-47.0) 08/30/22 05:10 MCV 86.9 fl (81-99) 08/30/22 05:10 MCH 27.3 pg (28.0-34.0) L 08/30/22 05:10 MCHC 31.4 g/dL (30.0-36.0) 08/30/22 05:10 RDW 13.4 % (12.1-15.1) 08/30/22 05:10 Plt Count 294 10^3/cmm (130-400) 08/30/22 05:10 MPV 10.8 fL (7.4-10.4) H 08/30/22 05:10 Neut % (Auto) 67.4 % 08/30/22 05:10 Lymph % (Auto) 23.2 % 08/30/22 05:10 Motley % (Auto) 8.7 % 08/30/22 05:10 Eos % (Auto) 0.0 % 08/30/22 05:10 Baso % (Auto) 0.1 % 08/30/22 05:10 Neut # (Auto) 7.39 10^3/uL (1.8-7.7) 08/30/22 05:10 Lymph # (Auto) 2.6 10^3/uL (0.8-4.8) 08/30/22 05:10 Motley # (Auto) 1.0 10^3/uL (0.2-0.9) H 08/30/22 05:10 Eos # (Auto) 0.0 10^3/uL (0.0-0.8) 08/30/22 05:10 Baso # (Auto) 0.0 10^3/uL (0.0-0.1) 08/30/22 05:10 Nucleated RBC % (auto) 0 % 08/30/22 05:10 Nucleated RBCs # 0.0 /100WBC 08/30/22 05:10 Specimen Type Arterial 08/26/22 17:36 Sample Site Radial, left 08/26/22 17:36 ABG pH 7.38 (7.35-7.45) 08/26/22 17:36 ABG pCO2 66.7 mmHg (35-45) H* 08/26/22 17:36 ABG pO2 76.1 mmHg (80.0-100.0) L 08/26/22 17:36 ABG HCO3 39.0 mmol/L (22-26) H 08/26/22 17:36 ABG Base Excess 11.0 mmol/L (-2.0-2.0) H 08/26/22 17:36 Nestor Test Pos 08/26/22 17:36 Hematocrit 41.2 % (37-47) 08/26/22 17:36 Hgb O2 Saturation 90.4 % (95-100) L 08/26/22 17:36 Carboxyhemoglobin 1.6 %THgb (0.4-20.1) 08/26/22 17:36 Methemoglobin 0.5 % (0.4-1.5) 08/26/22 17:36 Total Hemoglobin 13.5 g/dL (12-16) 08/26/22 17:36 O2 Delivery Device Nc 08/26/22 17:36 O2 Liters/Min 2.0 % 08/26/22 17:36 FiO2 0.0 % 08/26/22 17:36 [employer]ing [employer] Operator ID Cak 08/26/22 17:36 Sodium 139 mmol/L (136-145) 08/30/22 05:10 Potassium 3.6 mmol/L (3.5-5.1) 08/30/22 05:10 Chloride 93 mmol/L (98-107) L 08/30/22 05:10 Carbon Dioxide 33 mmol/L (22-29) H 08/30/22 05:10 Anion Gap 16.6 (5-19) 08/30/22 05:10 BUN 29 mg/dL (6-20) H 08/30/22 05:10 Creatinine 1.0 mg/dL (0.5-0.9) H 08/30/22 05:10 GFR Calculation 57.1 mL/min (90-130) L 08/30/22 05:10 Glucose 103 mg/dL (65-115) 08/30/22 05:10 Calculated Osmolality 294 mOsm/kg (285-295) 08/30/22 05:10 Lactic Acid 1.3 mmol/L (0.5-2.2) 08/26/22 17:40 Calcium 9.2 mg/dL (8.5-10.5) 08/30/22 05:10 Magnesium 2.0 mg/dL (1.7-2.3) 08/29/22 03:53 Total Bilirubin 1.2 mg/dL (0.15-1.2) 08/30/22 05:10 AST 12 U/L (0-32) 08/30/22 05:10 ALT 9 U/L (0-33) 08/30/22 05:10 Alkaline Phosphatase 82 U/L (35-105) 08/30/22 05:10 Troponin T Baseline 13 ng/L (0-10) H 08/26/22 17:40 Troponin T 120 Minute 12.95 ng/L (0-10) H 08/26/22 21:12 Delta Troponin T -0.05 ABS# (0-10) L 08/26/22 21:12 NT-Pro-B Natriuret Pep 227 pg/mL (0-125) H 08/26/22 17:40 Total Protein 6.5 g/dL (6.6-8.7) L 08/30/22 05:10 Albumin 4.2 g/dL (3.5-5.2) 08/30/22 05:10 Globulin 2.3 g/dL (1.3-4.6) 08/30/22 05:10 Vitals Last Vital Signs Temp 97.8 F 08/30/22 08:00 Pulse 49 L 08/30/22 11:23 Resp 16 08/30/22 11:19 BP 139/63 08/30/22 08:00 Pulse Ox 96 08/30/22 11:19 O2 Del Method Nasal Cannula 08/30/22 11:19 O2 Flow Rate 3 08/30/22 11:19 FiO2 30 08/29/22 20:00 Discharge Plan Discharge Patient Disposition: Home Health Service Condition: Stable Prescriptions: Continued levetiracetam 250 mg tablet 250 mg PO BID aspirin [Adult Aspirin Regimen] 81 mg tablet,delayed release (DR/EC) 81 mg PO QAM pantoprazole [Protonix] 40 mg tablet,delayed release (DR/EC) 40 mg PO QAM albuterol sulfate [ProAir HFA] 90 mcg/actuation HFA aerosol inhaler 2 puff INHALATION Q6H PRN (Reason: Shortness Of Breath) atorvastatin 20 mg tablet 20 mg PO BEDTIME budesonide 0.5 mg/2 mL suspension for nebulization 0.5 mg inhalation BID PRN (Reason: Shortness Of Breath Or Wheezing) magnesium oxide 500 mg tablet 500 mg PO DAILY acetaminophen 500 mg capsule 500 mg PO Q6H PRN (Reason: Pain) potassium chloride 20 mEq tablet extended release 20 meq PO DAILY Qty: 90 3RF hydroxyzine HCl 10 mg Tablet 10 mg PO TID PRN (Reason: Anxiety) spironolactone 25 mg tablet 25 mg PO DAILY trazodone 50 mg tablet 100 mg PO BEDTIME duloxetine 60 mg capsule,delayed release(DR/EC) 60 mg PO DAILY cetirizine 10 mg tablet 10 mg PO DAILY ipratropium-albuterol 0.5 mg-3 mg(2.5 mg base)/3 mL solution for nebulization 3 ml inhalation Q6H PRN (Reason: unknown) levothyroxine 125 mcg tablet 125 mcg PO DAILY gabapentin 300 mg capsule See Rx Instructions .ROUTE .COMPLEX Qty: 18 0RF Rx Instructions: take one cap today. Take one cap twice a day tomorrow, then begin taking one cap three times a day until gone prednisone 20 mg tablet 40 mg PO DAILY 5 Days Qty: 0 0RF Changed metoprolol succinate 50 mg tablet extended release 24 hr 75 mg PO BID Qty: 180 3RF bumetanide 2 mg tablet 2 mg PO BID Qty: 30 0RF Discontinued azithromycin 250 mg tablet See Rx Instructions PO .COMPLEX Rx Instructions: For 250 mg dose pack: take 500 mg today (day 1), then 250 mg for 4 days (days 2-5) PO Discharge Orders: Discharge Order (Routine); Ordered 08/30/22 Ordered By: La Martin Referrals: Татьяна Storm FNP [Primary Care Provider] - Lilliana Driver FNP [Nurse Practitioner] - 7-10 days Patient Instructions: Heart Failure (DC), CHF Stoplight, Opioid Safety Discharge Attestations Time Spent in Discharge Care*: greater than 30 min Quality Metrics Clinical Quality Measures [ No reported AMI, CVA or VTE this stay] Coding Level of Care Code Acute Code for Chg Fwd Diagnoses Acute exacerbation of chronic obstructive airways disease J44.1 Acute respiratory failure with hypoxia and hypercarbia J96.01; J96.02 Diastolic heart failure I50.32 Heart failure chronicity: chronic Seizures R56.9
== END 2022-08-30 14:29 | disposition home or self-care (01) | DRG 291 ==
LOC: ER 20:43 → CSU 21:23
PROVIDERS: Internal Medicine; Admitting Provider Internal Medicine; Emergency Provider Family Medicine; PCP Nurse Practitioner Family; Visit Provider Student in an Organized Health Care Education/Training Program
DX: I11.0 Hypertensive heart disease with heart failure (principal); I50.33 Acute on chronic diastolic (congestive) heart failure; J96.02 Acute respiratory failure with hypercapnia; J96.01 Acute respiratory failure with hypoxia; I25.10 Atherosclerotic heart disease of native coronary artery without angina pectoris; Z95.1 Presence of aortocoronary bypass graft; Z79.82 Long term (current) use of aspirin; Z79.51 Long term (current) use of inhaled steroids; Z79.891 Long term (current) use of opiate analgesic; M54.12 Radiculopathy, cervical region; K21.9 Gastro-esophageal reflux disease without esophagitis; E89.0 Postprocedural hypothyroidism; I35.1 Nonrheumatic aortic (valve) insufficiency; Z87.891 Personal history of nicotine dependence; R56.9 Unspecified convulsions; Z79.52 Long term (current) use of systemic steroids; J43.9 Emphysema, unspecified
CPT/HCPCS: 36415; 36600; 4559F; 51702; 71045; 80053; 82805; 83605; 83735; 83880; 84484; 85025; 87040; 93306; 94640; 94660; 96372; 96374; 96376; 99214; 99285; J1100; J1650; J1940; J2920; J7512; J7613; J7626

== ENCOUNTER → 2022-09-07 09:34 | Outpatient (BNVA) | payer MEDICARE, MEDICAID, SELFPAY | PROVIDERS: PCP Nurse Practitioner Family; Visit Provider Nurse Practitioner Family | DX: I11.0 Hypertensive heart disease with heart failure (principal); I50.32 Chronic diastolic (congestive) heart failure; Z87.891 Personal history of nicotine dependence; R07.9 Chest pain, unspecified | CPT/HCPCS: 36415; 80048; 83880; 99214 ==

== ENCOUNTER 2022-09-12 16:29 | Emergency (ER) | payer MEDICARE, MEDICAID, SELFPAY ==
[2022-09-12 16:04] VITALS: BP 140/70; PULSE 87; TEMP 36.4; O2SAT 99; BMI 36.8
--- NOTE | 2022-09-12 16:20 | XRR_ITS ---
PROCEDURE INFORMATION: Exam: XR Chest Exam date and time: 09/12/2022 4:31 PM Age: 56 years old Clinical indication: Dyspnea TECHNIQUE: Imaging protocol: Radiologic exam of the chest. Views: 1 view. COMPARISON: CR (CHEST, ) 08/26/2022 6:16 PM FINDINGS: Lungs: No consolidation. Pleural spaces: No pleural effusion. No pneumothorax. Heart/Mediastinum: No cardiomegaly. Bones/joints: Unremarkable. XR/XR chest 1V portable [id number] IMPRESSION: 1. No acute abnormality demonstrated. 2. There is no interval change from the prior examination.
[2022-09-12] MEDS: LORazepam 1 mg Tablet PO (16:27)
[2022-09-12 16:47] LABS: Basophils # 0.1 10^3/uL (0.0-0.1); Basophils % 0.7 %; Eosinophils # 0.2 10^3/uL (0.0-0.8); Eosinophils % 2.2 %; Hematocrit 38.2 % (37.0-47.0); Hemoglobin 11.6 g/dL (11.5-15.3); Lymphocytes # 1.9 10^3/uL (0.8-4.8); Lymphocytes % 26.1 %; Mean Corpuscular HGB Conc 30.4 g/dL (30.0-36.0); Mean Corpuscular Hemoglobin 27.4 pg (28.0-34.0); Mean Corpuscular Volume 90.3 fl (81-99); Mean Platelet Volume 9.9 fL (7.4-10.4); Monocytes # 0.6 10^3/uL (0.2-0.9); Monocytes % 8.2 %; Neutrophils # 4.62 10^3/uL (1.8-7.7); Neutrophils % 62.4 %; Nucleated Red Blood Cells % 0 %; Platelet Count 198 10^3/cmm (130-400); Red Blood Count 4.23 10^6/uL (4.1-5.3); Red Cell Distribution Width 14.1 % (12.1-15.1); White Blood Count 7.4 10^3/uL (4.0-10.0)
[2022-09-12 16:52] VITALS: BP 151/96; PULSE 88; RESP 19; O2SAT 98
--- NOTE | 2022-09-12 17:02 | W.ED.SOB ---
HPI - SOB/Dyspnea General: Chief Complaint: Shortness of Breath/Dyspnea Stated Complaint: SOB History of Present Illness: HPI Narrative: She presents to the ER with worsening shortness of breath. Patient is a pretty poor historian. Patient states her shortness of breath became worse this morning and has gotten worse throughout the day. Patient was just released from the hospital on 725 for similar episodes. Patient is currently on 3 L of oxygen per nasal cannula which she wears at all times. Patient is satting 98 to 99% currently. Patient does appear anxious and appears to be mildly hyperventilating. Otherwise in no acute distress with no complaints. 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 COPD (chronic obstructive pulmonary disease) Diastolic CHF Diastolic heart failure Emphysema, unspecified Essential (primary) hypertension GERD (gastroesophageal reflux disease) Hypothyroidism (acquired) Learning disability Lower extremity edema Moderate aortic regurgitation Pain of hand Seizure disorder SVT (supraventricular tachycardia) Systolic murmur Thyroid function study abnormality Venous stasis Surgical History H/O esophagogastroduodenoscopy 03/19/2019: Normal H/O thyroidectomy History of carpal tunnel surgery History of colonoscopy 03/19/2019: Normal repeat in 10 years Hx of section Family History Unknown No problems noted. Other Adopted Social History Smoking and tobacco status: former smoker Quit status (tobacco): has quit using tobacco Year quit tobacco: 2019 - 1-5 ciggs/day Alcohol intake: never Substance/Drug Use: never Lives independently: Yes Household members: none Housing: Apartment Current occupational status: disabled Do you think of yourself as: Straight/Heterosexual Current gender identity: Female Physical Exam Const: COMMON NORMALS: no acute distress, average body habitus, patient oriented x3, no limitations, healthy appearing, alert and well nourished HENMT: COMMON NORMALS: normocephalic, atraumatic, hearing grossly normal bilaterally, external ears normal, Normal external nose present and moist oral mucous membranes HEAD & SCALP: normocephalic and atraumatic NOSE: Normal external nose present EXTERNAL EAR: Yes external ears normal Neck/C-Spine: COMMON NORMALS: full ROM, no lymphadenopathy, supple, no meningeal signs, no JVD and Thyroid normal THYROID: Thyroid normal Chest: COMMONS NORMALS: normal inspection of the chest and normal palpation of entire chest wall Resp: COMMON NORMALS: normal respiratory effort, No retractions, No use of accessory muscles and clear to auscultation bilaterally AUSCULTATION: clear to auscultation bilaterally Cardio: COMMON NORMALS: no JVD, regular rate, regular rhythm, S1 normal heart sound present, S2 normal heart sound present, No gallops present (Cardio), No clicks present (Cardio), No murmurs present (Cardio) and No rub (Cardio) RATE: regular rate RHYTHM: regular rhythm HEART SOUNDS: S1 normal heart sound present and S2 normal heart sound present GI: COMMON NORMALS: Normal to inspection, nondistended, normoactive bowel sounds present, Soft to palpation, non-tender, No hepatosplenomegaly present and no masses PALPATION: Yes Soft to palpation and Yes No hepatosplenomegaly present : COMMON NORMALS: Yes no CVA tenderness BLADDER/KIDNEY EXAM: Yes no CVA tenderness Back/Pelvis: COMMON NORMALS: no CVA tenderness Neuro: COMMON NORMALS: patient oriented x3 SENSORIUM/ORIENTATION: Yes alert MENINGEAL SIGNS: Yes no meningeal signs Course Vital Signs: Vital signs: Vital Signs Temperature 97.6 F 09/12/22 16:04 Pulse Rate 95 09/12/22 17:49 Respiratory Rate 19 H 09/12/22 16:52 Blood Pressure 126/70 09/12/22 17:49 Pulse Oximetry 100 09/12/22 17:49 Oxygen Delivery Me thod Nasal Cannula 09/12/22 17:49 Oxygen Flow Rate 3 09/12/22 17:49 MDM - SOB/Dyspnea Medical Decision Making Patient presents to the ER with complaints of shortness of breath. Patient was mildly tachypneic and anxious upon exam. Lab work was obtained as well as a chest x-ray all of which were essentially benign. Patient is on 3 L of oxygen per nasal cannula and satting 99 to 100%. This is what the patient wears at home. Patient be discharged home to follow-up with her PCP. Differential Diagnosis Likely acute exacerbation of chronic obstructive airways disease and congestive heart failure; Unlikely community acquired pneumonia, asthma with exacerbation or pulmonary embolism Medical Records I reviewed the patient's medical records. Lab Data I reviewed the patient's lab results. 09/12/22 16:39 09/12/22 16:39 Labs/Radiology: Radiology Impressions Chest X-Ray 09/12/22 16:20 IMPRESSION: 1. No acute abnormality demonstrated. 2. There is no interval change from the prior examination. Laboratory Results WBC 7.4 10^3/uL (4.0-10.0) 09/12/22 16:39 RBC 4.23 10^6/uL (4.1-5.3) 09/12/22 16:39 Hgb 11.6 g/dL (11.5-15.3) 09/12/22 16:39 Hct 38.2 % (37.0-47.0) 09/12/22 16:39 MCV 90.3 fl (81-99) 09/12/22 16:39 MCH 27.4 pg (28.0-34.0) L 09/12/22 16:39 MCHC 30.4 g/dL (30.0-36.0) 09/12/22 16:39 RDW 14.1 % (12.1-15.1) 09/12/22 16:39 Plt Count 198 10^3/cmm (130-400) 09/12/22 16:39 MPV 9.9 fL (7.4-10.4) 09/12/22 16:39 Neut % (Auto) 62.4 % 09/12/22 16:39 Lymph % (Auto) 26.1 % 09/12/22 16:39 [place] % (Auto) 8.2 % 09/12/22 16:39 Eos % (Auto) 2.2 % 09/12/22 16:39 Baso % (Auto) 0.7 % 09/12/22 16:39 Neut # (Auto) 4.62 10^3/uL (1.8-7.7) 09/12/22 16:39 Lymph # (Auto) 1.9 10^3/uL (0.8-4.8) 09/12/22 16:39 [place] # (Auto) 0.6 10^3/uL (0.2-0.9) 09/12/22 16:39 Eos # (Auto) 0.2 10^3/uL (0.0-0.8) 09/12/22 16:39 Baso # (Auto) 0.1 10^3/uL (0.0-0.1) 09/12/22 16:39 Nucleated RBC % (auto) 0 % 09/12/22 16:39 Nucleated RBCs # 0.0 /100WBC 09/12/22 16:39 Sodium 145 mmol/L (136-145) 09/12/22 16:39 Potassium 5.4 mmol/L (3.5-5.1) H 09/12/22 16:39 Chloride 106 mmol/L (98-107) 09/12/22 16:39 Carbon Dioxide 30 mmol/L (22-29) H 09/12/22 16:39 Anion Gap 14.4 (5-19) 09/12/22 16:39 BUN 9 mg/dL (6-20) 09/12/22 16:39 Creatinine 0.6 mg/dL (0.5-0.9) 09/12/22 16:39 GFR Calculation 103.0 mL/min (90-130) 09/12/22 16:39 Glucose 86 mg/dL (65-115) 09/12/22 16:39 Calculated Osmolality 298 mOsm/kg (285-295) H 09/12/22 16:39 Calcium 9.1 mg/dL (8.5-10.5) 09/12/22 16:39 Total Bilirubin 0.6 mg/dL (0.15-1.2) 09/12/22 16:39 AST 24 U/L (0-32) 09/12/22 16:39 ALT 24 U/L (0-33) 09/12/22 16:39 Alkaline Phosphatase 85 U/L (35-105) 09/12/22 16:39 NT-Pro-B Natriuret Pep 257 pg/mL (0-125) H 09/12/22 16:39 Total Protein 6.0 g/dL (6.6-8.7) L 09/12/22 16:39 Albumin 3.5 g/dL (3.5-5.2) 09/12/22 16:39 Globulin 2.5 g/dL (1.3-4.6) 09/12/22 16:39 Urine Color Yellow (Yellow) 09/12/22 16:49 Urine Appearance Hazy (CLEAR) A 09/12/22 16:49 Urine pH 7 (5-7) 09/12/22 16:49 Ur Specific [place] 1.010 (1.005-1.030) 09/12/22 16:49 Urine Protein Neg (Negative) 09/12/22 16:49 Urine Glucose (UA) Norm (Normal) 09/12/22 16:49 Urine Ketones Negative (Negative) 09/12/22 16:49 Urine Blood Neg (Negative) 09/12/22 16:49 Urine Nitrate Negative (Negative) 09/12/22 16:49 Urine Bilirubin Neg (Negative) 09/12/22 16:49 Urine Urobilinogen Norm mg/dL (Negative) 09/12/22 16:49 Ur Leukocyte Esterase Trace (Negative) H 09/12/22 16:49 Urine RBC None /hpf (0-2) 09/12/22 16:49 Urine WBC 10-15 /hpf (0-5) H 09/12/22 16:49 Ur Squamous Epith Cells 5-10 /hpf (0-5) H 09/12/22 16:49 Amorphous Sediment Not Reportable 09/12/22 16:49 Urine Bacteria 3+ /hpf (NONE) H 09/12/22 16:49 Discharge Plan Discharge Patient Disposition: Home Clinical Impression: Acute exacerbation of chronic obstructive airways disease Condition: Stable Prescriptions: No Action levetiracetam 250 mg tablet 250 mg PO BID aspirin [Adult Aspirin Regimen] 81 mg tablet,delayed release (DR/EC) 81 mg PO QAM pantoprazole [Protonix] 40 mg tablet,delayed release (DR/EC) 40 mg PO QAM albuterol sulfate [ProAir HFA] 90 mcg/actuation HFA aerosol inhaler 2 puff INHALATION Q6H PRN (Reason: Shortness Of Breath) atorvastatin 20 mg tablet 20 mg PO BEDTIME budesonide 0.5 mg/2 mL suspension for nebulization 0.5 mg inhalation BID PRN (Reason: Shortness Of Breath Or Wheezing) magnesium oxide 500 mg tablet 500 mg PO DAILY acetaminophen 500 mg capsule 500 mg PO Q6H PRN (Reason: Pain) potassium chloride 20 mEq tablet extended release 20 meq PO DAILY Qty: 90 3RF bumetanide 2 mg tablet 2 mg PO DAILY Qty: 90 3RF Rx Instructions: 09/07/22 Decrease to 2mg once daily hydroxyzine HCl 10 mg Tablet 10 mg PO TID PRN (Reason: Anxiety) spironolactone 25 mg tablet 25 mg PO DAILY trazodone 50 mg tablet 100 mg PO BEDTIME duloxetine 60 mg capsule,delayed release(DR/EC) 60 mg PO DAILY cetirizine 10 mg tablet 10 mg PO DAILY ipratropium-albuterol 0.5 mg-3 mg(2.5 mg base)/3 mL solution for nebulization 3 ml inhalation Q6H PRN (Reason: unknown) levothyroxine 125 mcg tablet 125 mcg PO DAILY gabapentin 300 mg capsule See Rx Instructions .ROUTE .COMPLEX Qty: 18 0RF Rx Instructions: take one cap today. Take one cap twice a day tomorrow, then begin taking one cap three times a day until gone prednisone 20 mg tablet 40 mg PO DAILY 5 Days Qty: 0 0RF metoprolol succinate 50 mg tablet extended release 24 hr 75 mg PO BID Qty: 180 3RF Discharge Orders: Discharge ED (Routine); Ordered 09/12/22 Ordered By: Zach Magana Referrals: Татьяна Storm FNP [Primary Care Provider] - 1 week Patient Instructions: COPD (Chronic Obstructive Pulmonary Disease) (ED) Activity Restrictions/Additional Instructions: Please continue to wear your oxygen and do your breathing treatments as prescribed. Please follow-up with your primary care physician in 1 week as needed or sooner. Coding Level of Care Code ED [employer]ume Shop Coordinator for Dc Serrato
[2022-09-12 17:10] LABS: Urine Appearance Hazy (CLEAR); Urine Color Yellow (Yellow); pH Urine 7 (5-7)
[2022-09-12 17:11] LABS: Add Urine Microscopic? YES; Bacteria Urine 3+ /hpf; Bilirubin Urine Neg (Negative); Blood Urine Neg (Negative); Glucose Urine UA Norm (Normal); Ketones Urine Negative (Negative); Leukocyte Esterase Urine Trace (Negative); Nitrate Urine Negative (Negative); Protein Urine Neg (Negative); Urobilinogen Urine Norm (Negative)
[2022-09-12 17:12] LABS: Add Urine Culture? No
[2022-09-12 17:29] LABS: Alanine Aminotransferase 24 U/L (0-33); Albumin Level 3.5 g/dL (3.5-5.2); Alkaline Phosphatase 85 U/L (35-105); Blood Urea Nitrogen 9 mg/dL (6-20); Calcium 9.1 mg/dL (8.5-10.5); Chloride 106 mmol/L (98-107); Globulin 2.5 g/dL (1.3-4.6); Glucose 86 mg/dL (65-115); Osmolality Calculated 298 mOsm/kg (285-295); Sodium 145 mmol/L (136-145); Total Bilirubin 0.6 mg/dL (0.15-1.2)
[2022-09-12 17:37] LABS: Carbon Dioxide 30 mmol/L (22-29); NT Pro B Type Natriuretic Pept 257 pg/mL (0-125)
[2022-09-12 17:38] LABS: Anion Gap 14.4 (5-19); Aspartate Amino Transferase 24 U/L (0-32); Potassium 5.4 mmol/L (3.5-5.1)
[2022-09-12 17:49] VITALS: BP 126/70; PULSE 95; O2SAT 100
[2022-09-12 18:53] VITALS: BP 146/98; PULSE 90; O2SAT 100
--- NOTE | 2022-09-12 18:55 | PC.NURSE ---
Upon discharge, patient did not have her home oxygen. Patient stated I will be fine without it. I don't live very far. Patient was educated on the risks of waiting without oxygen, but patient still insisted on leaving without it.
== END 2022-09-12 18:57 | disposition home or self-care (01) ==
PROVIDERS: Emergency Provider Emergency Medicine; PCP Nurse Practitioner Family
DX: J44.1 Chronic obstructive pulmonary disease with (acute) exacerbation (principal); I11.0 Hypertensive heart disease with heart failure; I50.9 Heart failure, unspecified; E03.9 Hypothyroidism, unspecified; Z79.899 Other long term (current) drug therapy; Z79.82 Long term (current) use of aspirin; Z87.891 Personal history of nicotine dependence; Z99.81 Dependence on supplemental oxygen
CPT/HCPCS: 36415; 71045; 80053; 81001; 83880; 85025; 99284

== ENCOUNTER 2022-10-11 20:00 | Outpatient (CLI) | payer MEDICARE, MEDICAID, SELFPAY | END 2022-10-11 20:01 | disposition home or self-care (01) | LOC: SLEEP 10-12 06:30 | PROVIDERS: PCP Nurse Practitioner Family; Visit Provider Family Medicine | DX: G47.33 Obstructive sleep apnea (adult) (pediatric) (principal); G47.36 Sleep related hypoventilation in conditions classified elsewhere | CPT/HCPCS: 95810 ==

== ENCOUNTER 2022-10-15 20:28 | Emergency (ER) | payer MEDICARE, MEDICAID, SELFPAY ==
[2022-10-15 20:32] VITALS: BP 143/105; PULSE 65; RESP 18; TEMP 36.7; O2SAT 100; BMI 36.8
--- NOTE | 2022-10-15 20:32 | ECG_ITS ---
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 Measurements Intervals [place] Rate: 65 P: 68 ME: 143 QRS: 61 QRSD: 96 T: 64 QT: 402 QTc: 419 Interpretive Statements SINUS RHYTHM Compared to ECG 06/24/2022 19:16:19 Ectopic atrial rhythm no longer present Electronically Signed On 10-16-2022 10:53:51 CDT by Enrique Haro M.D. [id number]
[2022-10-15 20:39] VITALS: BP 143/105; PULSE 42; RESP 17; O2SAT 97
--- NOTE | 2022-10-15 20:45 | ED_ITS ---
HPI - Chest Pain General: Chief Complaint: Chest Pain Stated Complaint: CHEST PAIN Time Seen by Provider: 10/15/22 20:29 History of Present Illness: 56-year-old female presents the emergency department complaining of some chest pressure and tightness with wheezing that started 30 minutes prior to arrival. Patient states she has used her albuterol today. When asked what makes it b vineet, she cannot think of anything in particular. When asked what makes it worse, she states her anxiety does. Patient reports no known coronary artery disease. I do not see any documented in the chart either. Currently she rates it as an 8 out of 10. It is nonradiating. No associated nausea, vomiting, diaphoresis. She has chronic bilateral lower extremity edema which is unchanged. She occasionally has phlegm production and sometimes it looks green. No fevers, chills, sweats. Associated symptoms: Deny abdominal pain, fever(s), nausea, syncope or vomiting Review of Systems General: Reports: 10 or more systems reviewed and unremarkable except in HPI and below Const: Denies: fever(s), chills or body aches Eyes: Denies: change in vision ENMT: Denies: throat pain Card: Denies: chest pain or syncope GI: Denies: abdominal pain, nausea, vomiting or diarrhea : Denies: flank pain, dysuria or urinary frequency Musc: Denies: neck pain or back pain Skin/Breast: Denies: rash or erythema Neuro: Denies: headache(s), numbness in extremities, weakness in extremities, lack of coordination or difficulty walking [facility] ED PFSH: Medical History Asthma Atypical chest pain Cervical radiculopathy Chest pain 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 COPD (chronic obstructive pulmonary disease) Diastolic CHF Diastolic heart failure Emphysema, unspecified Essential (primary) hypertension GERD (gastroesophageal reflux disease) Hypothyroidism (acquired) Learning disability Lower extremity edema Moderate aortic regurgitation Pain of hand Seizure disorder SVT (supraventricular tachycardia) Systolic murmur Thyroid function study abnormality Venous stasis Surgical History H/O esophagogastroduodenoscopy 03/19/2019: Normal H/O thyroidectomy History of carpal tunnel surgery History of colonoscopy 03/19/2019: Normal repeat in 10 years Hx of section Family History Unknown No problems noted. Other Adopted Social History Smoking and tobacco status: former smoker Quit status (tobacco): has quit using tobacco Year quit tobacco: 2019 - 1-5 ciggs/day Alcohol intake: never Substance/Drug Use: never Lives independently: Yes Household members: none Housing: Apartment Current occupational status: disabled Do you think of yourself as: Straight/Heterosexual Current gender identity: Female Physical Exam Narrative: EXAM NARRATIVE: Awake, alert. Morbidly obese. No acute distress. Congenital eye issue, left. Bilateral lower extremity pitting edema noted. Tachypnea noted. Inspiratory and expiratory wheezing with a prolonged expiratory phase is noted. No crackles on respiratory examination. No abdominal tenderness. Heart rate is normal. Const: COMMON NORMALS: no limitations, alert and well nourished EXAM LIMITATIONS: no altered mental status HENMT: COMMON NORMALS: normocephalic, atraumatic and external ears normal HEAD & SCALP: normocephalic and atraumatic EXTERNAL EAR: Yes external ears normal MOUTH: no muffled voice Neck/C-Spine: COMMON NORMALS: no JVD GENERAL: Yes normal visual inspection and Yes trachea midline Cardio: COMMON NORMALS: no JVD, regular rate and regular rhythm RATE: regular rate RHYTHM: regular rhythm GI: COMMON NORMALS: Soft to palpation and non-tender PALPATION: Yes Soft to palpation and No Guarding due to palpation present (GI) Neuro: COMMON NORMALS: moves all extremities, no focal motor deficits and no sensory deficits noted SENSORIUM/ORIENTATION: Yes alert SPEECH: speech normal Psych: COMMON NORMALS: mental status grossly normal, Normal thought process present, cooperative, normal affect and speech normal SPEECH: Yes normal spee ch THOUGHT PROCESS: Normal thought process present Skin: COMMON NORMALS: no rashes or lesions noted, turgor normal and no jaundice GENERAL SKIN EXAM: no rashes or lesions noted and turgor normal Course Vital Signs: Vital signs: Vital Signs Temperature 98.1 F 10/15/22 20:32 Pulse Rate 59 L 10/15/22 23:57 Respiratory Rate 18 10/15/22 23:57 Blood Pressure 146/91 10/15/22 23:57 Pulse Oximetry 91 10/15/22 23:57 Oxygen Delivery Me thod Room Air 10/15/22 22:30 Oxygen Flow Rate 2 10/15/22 20:32 MDM - Chest Pain Medical Decision Making Differential diagnosis includes COPD/asthma exacerbation, CHF exacerbation, acute coronary syndrome, bronchitis, pneumonia, pulmonary embolism, pleural effusion, pneumothorax, anemia, anxiety, malingering, orthopnea, pulmonary hypertension, multiple others. EKG shows sinus rhythm, rate 65, normal axis, QRS 96 ms,, no concerning ST segment elevations or depressions, no ectopy Chest x-ray 1 view on my interpretation shows no focal infiltrates, effusions, pneumothorax, or pulmonary edema. Troponin #1 was minimally elevated. A delta troponin was obtained and the 2- hour delta was -3. Patient was placed on oxygen empirically by EMS for complaint of shortness of breath. I turned her oxygen off and watched her. She was between 94 and 100% on room air. After DuoNeb's, she was reevaluated and her wheezing was significantly improved. Her tachypnea resolved. This appears to suggest a reversible airway obstruction. Only 2 DuoNebs were required to achieve this. This makes me wonder whether she is effectively delivering her albuterol at home. Overall, patient does not have signs of myocardial infarction, pulmonary embolism, pneumonia, or decompensated heart failure. Suspect this is an exacerbation of COPD along with obesity hypoventilation syndrome. Patient may be discharged with outpatient management Lab Data 10/15/22 20:50 10/15/22 20:50 Radiology Impressions Chest X-Ray 10/15/22 22:31 IMPRESSION: No acute findings. Laboratory Results WBC 8.09 10^3/uL (3.29-11.43) 10/15/22 20:50 RBC 4.34 10^6/uL (3.85-5.65) 10/15/22 20:50 Hgb 12.40 g/dL (11.27-16.99) 10/15/22 20:50 Hct 39.6 % (36-47) 10/15/22 20:50 MCV 91.2 fl (85-98) 10/15/22 20:50 MCH 28.6 pg (27-33) 10/15/22 20:50 MCHC 31.3 g/dL (30-55) 10/15/22 20:50 RDW 15.2 % (12.1-15.1) H 10/15/22 20:50 Plt Count 269 10^3/cmm (157-399) 10/15/22 20:50 MPV 10.7 fL (7.4-10.4) H 10/15/22 20:50 Neut % (Auto) 49.7 % 10/15/22 20:50 Lymph % (Auto) 33.4 % 10/15/22 20:50 [place] % (Auto) 9.5 % 10/15/22 20:50 Eos % (Auto) 6.1 % 10/15/22 20:50 Baso % (Auto) 1.1 % 10/15/22 20:50 Neut # (Auto) 4.02 10^3/uL (1.8-7.7) 10/15/22 20:50 Lymph # (Auto) 2.7 10^3/uL (0.8-4.8) 10/15/22 20:50 [place] # (Auto) 0.8 10^3/uL (0.2-0.9) 10/15/22 20:50 Eos # (Auto) 0.5 10^3/uL (0.0-0.8) 10/15/22 20:50 Baso # (Auto) 0.1 10^3/uL (0.0-0.1) 10/15/22 20:50 Nucleated RBC % (auto) 0 % 10/15/22 20:50 Nucleated RBCs # 0.0 /100WBC 10/15/22 20:50 Sodium 142 mmol/L (136-145) 10/15/22 20:50 Potassium 4.3 mmol/L (3.5-5.1) 10/15/22 20:50 Chloride 100 mmol/L (98-107) 10/15/22 20:50 Carbon Dioxide 33 mmol/L (22-29) H 10/15/22 20:50 Anion Gap 13.3 (5-19) 10/15/22 20:50 BUN 10 mg/dL (6-20) 10/15/22 20:50 Creatinine 0.9 mg/dL (0.5-0.9) 10/15/22 20:50 GFR Calculation 64.5 mL/min (90-130) L 10/15/22 20:50 Glucose 111 mg/dL (65-115) 10/15/22 20:50 Calculated Osmolality 294 mOsm/kg (285-295) 10/15/22 20:50 Calcium 8.8 mg/dL (8.5-10.5) 10/15/22 20:50 Troponin T Baseline 23 ng/L (0-10) H 10/15/22 20:50 Troponin T 120 Minute 19.05 ng/L (0-10) H 10/15/22 22:46 Delta Troponin T -3.95 ABS# (0-10) L 10/15/22 22:46 NT-Pro-B Natriuret Pep 346 pg/mL (0-125) H 10/15/22 20:50 Discharge Plan Discharge Patient Disposition: Home Clinical Impression: Chest pain, Wheezing Condition: Stable Prescriptions: No Action levetiracetam 250 mg tablet 250 mg PO BID aspirin [Adult Aspirin Regimen] 81 mg tablet,delayed release (DR/EC) 81 mg PO QAM pantoprazole [Protonix] 40 mg tablet,delayed release (DR/EC) 40 mg PO QAM albuterol sulfate [ProAir HFA] 90 mcg/actuation HFA aerosol inhaler 2 puff INHALATION Q6H PRN (Reason: Shortness Of Breath) atorvastatin 20 mg tablet 20 mg PO BEDTIME budesonide 0.5 mg/2 mL suspension for nebulization 0.5 mg inhalation BID PRN (Reason: Shortness Of Breath Or Wheezing) magnesium oxide 500 mg tablet 500 mg PO DAILY acetaminophen 500 mg capsule 500 mg PO Q6H PRN (Reason: Pain) potassium chloride 20 mEq tablet extended release 20 meq PO DAILY Qty: 90 3RF bumetanide 2 mg tablet 2 mg PO DAILY Qty: 90 3RF Rx Instructions: 09/07/22 Decrease to 2mg once daily hydroxyzine HCl 10 mg Tablet 10 mg PO TID PRN (Reason: Anxiety) spironolactone 25 mg tablet 25 mg PO DAILY trazodone 50 mg tablet 100 mg PO BEDTIME duloxetine 60 mg capsule,delayed release(DR/EC) 60 mg PO DAILY cetirizine 10 mg tablet 10 mg PO DAILY ipratropium-albuterol 0.5 mg-3 mg(2.5 mg base)/3 mL solution for nebulization 3 ml inhalation Q6H PRN (Reason: unknown) levothyroxine 125 mcg tablet 125 mcg PO DAILY gabapentin 300 mg capsule See Rx Instructions .ROUTE .COMPLEX Qty: 18 0RF Rx Instructions: take one cap today. Take one cap twice a day tomorrow, then begin taking one cap three times a day until gone prednisone 20 mg tablet 40 mg PO DAILY 5 Days Qty: 0 0RF metoprolol succinate 50 mg tablet extended release 24 hr 75 mg PO BID Qty: 180 3RF Discharge Orders: Discharge ED (Routine); Ordered 10/15/22 Ordered By: Odilon Gama Referrals: Татьяна Storm FNP [Primary Care Provider] - 4-7 days Discharge Diet: Low Salt and Low Fat Discharge Activity: Resume usual activity Patient Instructions: Chest Pain (ED), Wheezing (ED), Opioid Safety, Pain Management Activity Restrictions/Additional Instructions: Please read all discharge instructions and abide by recommendations and return precautions. Make an appointment to follow-up with your primary care doctor as directed for follow-up. Return to ER if getting worse or other emergent symptoms. Coding Level of Care Code ED [employer] Hand for Dc Serrato
[2022-10-15] MEDS: ALPRAZolam 0.5 mg Tablet PO (20:53)
[2022-10-15] MEDS: dexamethasone 10 mg/mL INJ 6 MG IVP (20:54)
[2022-10-15 21:10] LABS: Basophils # 0.1 10^3/uL (0.0-0.1); Basophils % 1.1 %; Eosinophils # 0.5 10^3/uL (0.0-0.8); Eosinophils % 6.1 %; Hematocrit 39.6 % (36-47); Lymphocytes # 2.7 10^3/uL (0.8-4.8); Lymphocytes % 33.4 %; Mean Corpuscular HGB Conc 31.3 g/dL (30-55); Mean Corpuscular Hemoglobin 28.6 pg (27-33); Mean Corpuscular Volume 91.2 fl (85-98); Mean Platelet Volume 10.7 fL (7.4-10.4); Monocytes # 0.8 10^3/uL (0.2-0.9); Monocytes % 9.5 %; Neutrophils # 4.02 10^3/uL (1.8-7.7); Neutrophils % 49.7 %; Nucleated Red Blood Cells % 0 %; Platelet Count 269 10^3/cmm (157-399); Red Blood Count 4.34 10^6/uL (3.85-5.65); Red Cell Distribution Width 15.2 % (12.1-15.1); White Blood Count 8.09 10^3/uL (3.29-11.43)
[2022-10-15 21:25] LABS: Troponin(5th) Baseline 23 ng/L (0-10)
[2022-10-15 21:34] LABS: Blood Urea Nitrogen 10 mg/dL (6-20); Calcium 8.8 mg/dL (8.5-10.5); Carbon Dioxide 33 mmol/L (22-29); Chloride 100 mmol/L (98-107); Glomerular Filtration Rate 64.5 mL/min (90-130); Glucose 111 mg/dL (65-115); NT Pro B Type Natriuretic Pept 346 pg/mL (0-125); Osmolality Calculated 294 mOsm/kg (285-295); Sodium 142 mmol/L (136-145)
[2022-10-15 21:35] LABS: Anion Gap 13.3 (5-19); Potassium 4.3 mmol/L (3.5-5.1)
[2022-10-15 21:39] VITALS: BP 121/65; PULSE 58; O2SAT 94
[2022-10-15 22:00] VITALS: PULSE 62; O2SAT 93
[2022-10-15 22:30] VITALS: BP 130/61; PULSE 58; RESP 16; O2SAT 93
--- NOTE | 2022-10-15 22:31 | XRR_ITS ---
PROCEDURE INFORMATION: Exam: XR Chest Exam date and time: 10/15/2022 10:48 PM Age: 56 years old Clinical indication: Chest pressure; Prior surgery; Surgery date: 6+ months; Surgery type: Thyroidectomy; Patient HX: C/O chest pain TECHNIQUE: Imaging protocol: Radiologic exam of the chest. Views: 1 view. COMPARISON: CR XR chest 1V portable [id number] 09/12/2022 4:31 PM FINDINGS: Lungs: Unremarkable. No consolidation. Pleural spaces: Unremarkable. No pleural effusion. No pneumothorax. Heart/Mediastinum: Unremarkable. No cardiomegaly. Bones/joints: Unremarkable. XR/XR chest 1V portable [id number] IMPRESSION: No acute findings.
--- NOTE | 2022-10-15 22:34 | ECG_ITS ---
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 Measurements Intervals [place] Rate: 60 P: 60 [place]: 142 QRS: 58 QRSD: 105 T: 60 QT: 436 QTc: 436 Interpretive Statements SINUS RHYTHM Compared to ECG 10/15/2022 20:32:55 No significant changes Electronically Signed On 10-16-2022 10:56:09 CDT by Enrique Haro M.D. [id number]
[2022-10-15 23:20] LABS: Troponin 5 2HR 19.05 ng/L (0-10)
[2022-10-15 23:27] LABS: Troponin 5 2HR Delta -3.95 ABS# (0-10)
[2022-10-15 23:57] VITALS: BP 146/91; PULSE 59; RESP 18; O2SAT 91
== END 2022-10-16 | disposition home or self-care (01) ==
PROVIDERS: Emergency Provider Emergency Medicine; PCP Nurse Practitioner Family
DX: R07.89 Other chest pain (principal); R06.2 Wheezing; E66.01 Morbid (severe) obesity due to excess calories; Z68.36 Body mass index [BMI] 36.0-36.9, adult
CPT/HCPCS: 36415; 71045; 80048; 83880; 84484; 85025; 93005; 96374; 99285; J1100

== ENCOUNTER 2022-10-19 18:33 | Emergency (ER) | payer MEDICARE, MEDICAID, SELFPAY ==
[2022-10-19 18:46] VITALS: BP 150/79; PULSE 63; RESP 18; TEMP 36.9; O2SAT 97
--- NOTE | 2022-10-19 18:47 | XRR_ITS ---
PROCEDURE INFORMATION: Exam: XR Left Hand Exam date and time: 10/19/2022 6:51 PM Age: 56 years old Clinical indication: Pain; Hand; Left; Additional info: Left hand pain ulnar side, no trauma TECHNIQUE: Imaging protocol: Radiologic exam of the left hand. Views: 3 or more views. COMPARISON: CR (UP EXM, ) 07/13/2022 6:51 PM FINDINGS: Bones/joints: Osseous structures are intact. Negative for fracture. Mild DJD at the 1st MCP. Soft tissues: Normal. XR/XR hand LT min 3V* [id number] IMPRESSION: No acute findings.
--- NOTE | 2022-10-19 18:49 | W.ED.GENADLT ---
HPI - General Adult General: Chief complaint: Extremity Problem,Nontraumatic Stated complaint: left hand injury Time Seen by Provider: 10/19/22 18:44 History of Present Illness: Patient presents to the ER with complaints of left hand pain. Patient denies any trauma. Patient states her left ulnar side was numb ever since 2017. But in the last couple days it started hurting. Patient states the pain goes up into her forearm. The pain is worse with movement and palpation. Patient has not tried anything for this pain. 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 COPD (chronic obstructive pulmonary disease) Diastolic CHF Diastolic heart failure Emphysema, unspecified Essential (primary) hypertension GERD (gastroesophageal reflux disease) Hypothyroidism (acquired) Learning disability Lower extremity edema Moderate aortic regurgitation Pain of hand Seizure disorder SVT (supraventricular tachycardia) Systolic murmur Thyroid function study abnormality Venous stasis Surgical History H/O esophagogastroduodenoscopy 03/19/2019: Normal H/O thyroidectomy History of carpal tunnel surgery History of colonoscopy 03/19/2019: Normal repeat in 10 years Hx of section Family History Unknown No problems noted. Other Adopted Social History Smoking and tobacco status: former smoker Quit status (tobacco): has quit using tobacco Year quit tobacco: 2019 - 1-5 ciggs/day Alcohol intake: never Substance/Drug Use: never Lives independently: Yes Household members: none Housing: Apartment Current occupational status: disabled Do you think of yourself as: Straight/Heterosexual Current gender identity: Female Physical Exam Const: COMMON NORMALS: no acute distress, average body habitus, patient oriented x3, no limitations, healthy appearing, alert and well nourished HENMT: COMMON NORMALS: normocephalic, atraumatic, hearing grossly normal bilaterally, external ears normal and Normal nasal mucous membranes and turbinates present HEAD & SCALP: normocephalic and atraumatic NOSE: Normal nasal mucous membranes and turbinates present EXTERNAL EAR: Yes external ears normal Neck/C-Spine: COMMON NORMALS: no JVD Chest: COMMONS NORMALS: normal inspection of the chest and normal palpation of entire chest wall Resp: COMMON NORMALS: normal respiratory effort, No retractions, No use of accessory muscles and clear to auscultation bilaterally AUSCULTATION: clear to auscultation bilaterally Cardio: COMMON NORMALS: no JVD, regular rate, regular rhythm, S1 normal heart sound present, S2 normal heart sound present, No gallops present (Cardio), No clicks present (Cardio), No murmurs present (Cardio) and No rub (Cardio) RATE: regular rate RHYTHM: regular rhythm HEART SOUNDS: S1 normal heart sound present and S2 normal heart sound present GI: COMMON NORMALS: Normal to inspection, nondistended, normoactive bowel sounds present, Soft to palpation, non-tender, No hepatosplenomegaly present and no masses PALPATION: Yes Soft to palpation and Yes No hepatosplenomegaly present Extremity: NARRATIVE EXTREMITY EXAM: There is mild tender to palpation worse over the ulnar side of the left hand. No obvious deformity erythema swelling etc. Neuro: COMMON NORMALS: patient oriented x3 SENSORIUM/ORIENTATION: Yes alert Course Vital Signs: Vital signs: Vital Signs Temperature 98.4 F 10/19/22 18:46 Pulse Rate 63 10/19/22 18:46 Respiratory Rate 18 10/19/22 18:46 Blood Pressure 124/69 10/19/22 19:05 Pulse Oximetry 98 10/19/22 19:05 [facility] - General Adult Medical Decision Making Patient presents to the ER with complaints of left hand pain on the ulnar side. No trauma was noted. X-rays were obtained which were negative. Patient was given 10 mg Decadron IM will be discharged home with 50 mg prednisone p.o. for the next 5 days. It is felt this is more of a inflammatory type process than anything. Patient should follow back up with her PCP on as needed basis within the next 7 days or sooner. Differential Diagnosis Hand pain, osteoarthritis, inflammation Medical Records I reviewed the patient's medical records. Lab Data I reviewed the patient's lab results. Radiology Impressions Hand X-Ray 10/19/22 18:47 IMPRESSION: No acute findings. Discharge Plan Discharge Patient Disposition: Home Clinical Impression: Hand pain, left Condition: Stable Prescriptions: New prednisone 50 mg tablet 50 mg PO DAILY 5 Days Qty: 5 0RF No Action levetiracetam 250 mg tablet 250 mg PO BID aspirin [Adult Aspirin Regimen] 81 mg tablet,delayed release (DR/EC) 81 mg PO QAM pantoprazole [Protonix] 40 mg tablet,delayed release (DR/EC) 40 mg PO QAM albuterol sulfate [ProAir HFA] 90 mcg/actuation HFA aerosol inhaler 2 puff INHALATION Q6H PRN (Reason: Shortness Of Breath) atorvastatin 20 mg tablet 20 mg PO BEDTIME budesonide 0.5 mg/2 mL suspension for nebulization 0.5 mg inhalation BID PRN (Reason: Shortness Of Breath Or Wheezing) magnesium oxide 500 mg tablet 500 mg PO DAILY acetaminophen 500 mg capsule 500 mg PO Q6H PRN (Reason: Pain) potassium chloride 20 mEq tablet extended release 20 meq PO DAILY Qty: 90 3RF bumetanide 2 mg tablet 2 mg PO DAILY Qty: 90 3RF Rx Instructions: 09/07/22 Decrease to 2mg once daily hydroxyzine HCl 10 mg Tablet 10 mg PO TID PRN (Reason: Anxiety) spironolactone 25 mg tablet 25 mg PO DAILY trazodone 50 mg tablet 100 mg PO BEDTIME duloxetine 60 mg capsule,delayed release(DR/EC) 60 mg PO DAILY cetirizine 10 mg tablet 10 mg PO DAILY ipratropium-albuterol 0.5 mg-3 mg(2.5 mg base)/3 mL solution for nebulization 3 ml inhalation Q6H PRN (Reason: unknown) levothyroxine 125 mcg tablet 125 mcg PO DAILY gabapentin 300 mg capsule See Rx Instructions .ROUTE .COMPLEX Qty: 18 0RF Rx Instructions: take one cap today. Take one cap twice a day tomorrow, then begin taking one cap three times a day until gone prednisone 20 mg tablet 40 mg PO DAILY 5 Days Qty: 0 0RF metoprolol succinate 50 mg tablet extended release 24 hr 75 mg PO BID Qty: 180 3RF Discharge Orders: Discharge ED (Routine); Ordered 10/19/22 Ordered By: Zach Magana Referrals: Akila Rivera DO [Primary Care Provider] - Patient Instructions: Arthralgia (ED) Activity Restrictions/Additional Instructions: Take all your medicine as directed. Please follow-up with your family practice physician within the next 7 days or sooner as needed for further evaluation and treatment. 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
[2022-10-19] MEDS: dexamethasone 10 mg/mL INJ IM (18:56)
[2022-10-19 19:05] VITALS: BP 124/69; O2SAT 98
[2022-10-19 20:00] VITALS: BP 127/86; PULSE 65; RESP 18; O2SAT 96
== END 2022-10-19 20:01 | disposition home or self-care (01) ==
PROVIDERS: Emergency Provider Emergency Medicine; PCP Family Medicine
DX: M79.642 Pain in left hand (principal); Z79.82 Long term (current) use of aspirin; J44.9 Chronic obstructive pulmonary disease, unspecified; I11.0 Hypertensive heart disease with heart failure; I50.30 Unspecified diastolic (congestive) heart failure; Z87.891 Personal history of nicotine dependence
CPT/HCPCS: 73130; 96372; 99284; J1100

== ENCOUNTER 2022-11-02 16:58 | Emergency (ER) | payer MEDICARE, MEDICAID, SELFPAY ==
[2022-11-02 17:05] VITALS: BP 132/57; PULSE 70; TEMP 36.6; O2SAT 99; BMI 38.3
--- NOTE | 2022-11-02 17:24 | W.ED.CHESTPA ---
HPI - Chest Pain General: Chief Complaint: Chest Pain Stated Complaint: Chest Pain Time Seen by Provider: 11/02/22 17:01 History of Present Illness: This patient is a 56-year-old white female who presents to the ER with multiple complaints. She states her chest has been hurting this afternoon. It is worse with movement and palpation. She is also having some right sided back pain, left hand pain and left knee pain. She states she has not had any recent injuries however she states she did injure the fifth digit of the left hand a couple of weeks ago and did have x-rays at that time. She continues to have pain in that digit. 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 COPD (chronic obstructive pulmonary disease) Diastolic CHF Diastolic heart failure Emphysema, unspecified Essential (primary) hypertension GERD (gastroesophageal reflux disease) Hypothyroidism (acquired) Learning disability Lower extremity edema Moderate aortic regurgitation Pain of hand Seizure disorder SVT (supraventricular tachycardia) Systolic murmur Thyroid function study abnormality Venous stasis Surgical History H/O esophagogastroduodenoscopy 03/19/2019: Normal H/O thyroidectomy History of carpal tunnel surgery History of colonoscopy 03/19/2019: Normal repeat in 10 years Hx of section Family History Unknown No problems noted. Other Adopted Social History Smoking and tobacco status: former smoker Quit status (tobacco): has quit using tobacco Year quit tobacco: 2019 - 1-5 ciggs/day Alcohol intake: never Substance/Drug Use: never Lives independently: Yes Household members: none Housing: Apartment Current occupational status: disabled Do you think of yourself as: Straight/Heterosexual Current gender identity: Female Physical Exam Const: COMMON NORMALS: no acute distress, patient oriented x3 and no limitations GENERAL APPEARANCE: cooperative and comfortable HENMT: COMMON NORMALS: normocephalic, atraumatic, Normal nasal mucous membranes and turbinates present, moist oral mucous membranes and oropharynx normal HEAD & SCALP: normal to inspection, normocephalic and atraumatic FACE & SINUS: normal facial exam NOSE: Normal nasal mucous membranes and turbinates present Eye: COMMON NORMALS: Equal, round and reactive pupils present, EOMs intact bilaterally and conjunctivae normal GENERAL EYE: appearance normal, both eyes and all related structures CONJUNCTIVA: Yes conjunctivae normal PUPIL: Yes Equal, round and reactive pupils present Neck/C-Spine: COMMON NORMALS: supple and no JVD Chest: COMMONS NORMALS: normal inspection of the chest Resp: COMMON NORMALS: normal respiratory effort and clear to auscultation bilaterally AUSCULTATION: clear to auscultation bilaterally Cardio: COMMON NORMALS: no JVD, regular rate, regular rhythm, No gallops present (Cardio), No murmurs present (Cardio) and No rub (Cardio) RATE: regular rate RHYTHM: regular rhythm GI: COMMON NORMALS: Normal to inspection, nondistended, normoactive bowel sounds present, Soft to palpation and non-tender AUSCULTATION: Yes normoactive bowel sounds PALPATION: Yes Soft to palpation : COMMON NORMALS: Yes no CVA tenderness BLADDER/KIDNEY EXAM: Yes no CVA tenderness Back/Pelvis: COMMON NORMALS: no CVA tenderness and thoracic and lumbar spine normal to inspection Extremity: NARRATIVE EXTREMITY EXAM: Patient did have full range of motion of the fifth digit left hand with discomfort. I did not see any gross abnormalities. She did have painful range of motion of the left knee. Again no gross abnormalities. Negative anterior posterior drawer test. Negative valgus varus stress test. She also had pain to palpation over the sternum reproducing her chest discomfort. Neuro: COMMON NORMALS: patient oriented x3 and CN's II-XII intact bilaterally Psych: COMMON NORMALS: mental status grossly normal, Normal thought process present and cooperative THOUGHT PROCESS: Normal thought process present Skin: COMMON NORMALS: no rashes or lesions noted, turgor normal and no jaundice GENERAL SKIN EXAM: no rashes or lesions noted and turgor normal Course Vital Signs: Vital signs: Vital Signs Temperature 97.9 F 11/02/22 17:05 Pulse Rate 68 11/02/22 19:39 Respiratory Rate 18 11/02/22 19:39 Blood Pressure 139/75 11/02/22 19:39 Pulse Oximetry 98 11/02/22 19:39 Oxygen Delivery Me thod Room Air 11/02/22 18:32 MDM - Chest Pain Medical Decision Making EKG was normal. X-rays of the left knee, fifth digit left hand and chest x-ray were all normal. Those were also read by the radiologist. Patient was given an injection of morphine for her pain. She states she does have pain medication at home. She is on a pain contract evidently. She was discharged in stable condition instructed to follow-up with her pain specialist or primary care physician for ongoing management. Lab Data Radiology Impressions Chest X-Ray 11/02/22 17:25 IMPRESSION: No acute findings. Finger X-Ray 11/02/22 17:25 IMPRESSION: No acute findings. Knee X-Ray 11/02/22 17:25 IMPRESSION: No acute findings. All radiology interpretation(s) finalized by discharge Discharge Plan Discharge Patient Disposition: Home Clinical Impression: Finger sprain, Acute knee pain, Acute chest wall pain Condition: Stable Prescriptions: No Action levetiracetam 250 mg tablet 250 mg PO BID aspirin [Adult Aspirin Regimen] 81 mg tablet,delayed release (DR/EC) 81 mg PO QAM pantoprazole [Protonix] 40 mg tablet,delayed release (DR/EC) 40 mg PO QAM albuterol sulfate [ProAir HFA] 90 mcg/actuation HFA aerosol inhaler 2 puff INHALATION Q6H PRN (Reason: Shortness Of Breath) atorvastatin 20 mg tablet 20 mg PO BEDTIME budesonide 0.5 mg/2 mL suspension for nebulization 0.5 mg inhalation BID PRN (Reason: Shortness Of Breath Or Wheezing) magnesium oxide 500 mg tablet 500 mg PO DAILY acetaminophen 500 mg capsule 500 mg PO Q6H PRN (Reason: Pain) potassium chloride 20 mEq tablet extended release 20 meq PO DAILY Qty: 90 3RF bumetanide 2 mg tablet 2 mg PO DAILY Qty: 90 3RF Rx Instructions: 09/07/22 Decrease to 2mg once daily hydroxyzine HCl 10 mg Tablet 10 mg PO TID PRN (Reason: Anxiety) spironolactone 25 mg tablet 25 mg PO DAILY trazodone 50 mg tablet 100 mg PO BEDTIME duloxetine 60 mg capsule,delayed release(DR/EC) 60 mg PO DAILY cetirizine 10 mg tablet 10 mg PO DAILY ipratropium-albuterol 0.5 mg-3 mg(2.5 mg base)/3 mL solution for nebulization 3 ml inhalation Q6H PRN (Reason: unknown) levothyroxine 125 mcg tablet 125 mcg PO DAILY gabapentin 300 mg capsule See Rx Instructions .ROUTE .COMPLEX Qty: 18 0RF Rx Instructions: take one cap today. 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
--- NOTE | 2022-11-02 17:25 | XRR_ITS ---
PROCEDURE INFORMATION: Exam: XR Left Finger(s) Exam date and time: 11/02/2022 5:32 PM Age: 56 years old Clinical indication: Pain; Finger(s); Left TECHNIQUE: Imaging protocol: Radiologic exam of the left fingers. Ring and little fingers Views: Minimum 2 views. COMPARISON: CR (UP EX, ) 10/19/2022 6:51 PM FINDINGS: Bones/joints: Normal. Soft tissues: Normal. XR/XR finger LT min 2V [id number] IMPRESSION: No acute findings.
--- NOTE | 2022-11-02 17:25 | XRR_ITS ---
PROCEDURE INFORMATION: Exam: XR Left Knee Exam date and time: 11/02/2022 5:36 PM Age: 56 years old Clinical indication: Pain; Knee; Left TECHNIQUE: Imaging protocol: Radiologic exam of the left knee. Views: 3 views. COMPARISON: CR XR knee LT 3V* [id number] 09/16/2019 2:41 PM FINDINGS: Bones/joints: No fracture or other acute abnormality. Joint spaces are unremarkable. Soft tissues: Normal. XR/XR knee LT 3V* [id number] IMPRESSION: No acute findings.
--- NOTE | 2022-11-02 17:25 | XRR_ITS ---
PROCEDURE INFORMATION: Exam: XR Chest Exam date and time: 11/02/2022 5:31 PM Age: 56 years old Clinical indication: Pain; Chest pressure; Additional info: Chest pain TECHNIQUE: Imaging protocol: Radiologic exam of the chest. Views: 1 view. COMPARISON: CR (CHEST, ) 10/15/2022 10:48 PM FINDINGS: Lungs: Reduced lung volumes. No consolidation. Pleural spaces: Unremarkable. No pleural effusion. No pneumothorax. Heart/Mediastinum: Unremarkable. No cardiomegaly. Bones/joints: Unremarkable. XR/XR chest 1V portable [id number] IMPRESSION: No acute findings.
--- NOTE | 2022-11-02 17:29 | ECG_ITS ---
[facility] Test Date: 2022-11-02 Pat Name: Crystal Pierre Department: Room: Gender: Female Academic Support Director: : 1965 Requested By: Benitez Garland Order Number: [id number] Clemencia MD: Funmilayo De La Rosa M.D. Measurements Intervals [place] Rate: 62 P: 48 MT: 143 QRS: 27 QRSD: 98 T: 42 QT: 424 QTc: 432 Interpretive Statements SINUS RHYTHM Compared to ECG 10/15/2022 22:34:11 No significant changes Electronically Signed On 11-02-2022 20:53:41 CDT by Funmilayo De La Rosa M.D. [email or web address]
[2022-11-02 18:32] VITALS: BP 123/71; PULSE 68; O2SAT 96
[2022-11-02] MEDS: morphine 4 mg/mL SDV 1 mL 10 MG IM (19:33)
[2022-11-02] MEDS: ondansetron 4 MG Tablet PO (19:33)
[2022-11-02 19:39] VITALS: BP 139/75; PULSE 68; RESP 18; O2SAT 98
== END 2022-11-02 19:39 | disposition home or self-care (01) ==
PROVIDERS: Emergency Provider Emergency Medicine; PCP Family Medicine
DX: R07.89 Other chest pain (principal); S63.617A Unspecified sprain of left little finger, initial encounter; M25.562 Pain in left knee; Z79.82 Long term (current) use of aspirin; Z87.891 Personal history of nicotine dependence; J44.9 Chronic obstructive pulmonary disease, unspecified; I11.0 Hypertensive heart disease with heart failure; I50.30 Unspecified diastolic (congestive) heart failure; X58.XXXA Exposure to other specified factors, initial encounter
CPT/HCPCS: 71045; 73140; 73562; 93005; 96372; 99284; J2270; Q0162

== ENCOUNTER 2022-11-25 17:10 | Emergency (ER) | payer MEDICARE, MEDICAID, SELFPAY ==
--- NOTE | 2022-11-25 17:15 | ED_ITS ---
HPI - Headache General: Chief Complaint: Head Injury Stated Complaint: head pain Time Seen by Provider: 11/25/22 17:14 History of Present Illness: 56-year-old female comes in today for complaints of dizziness and mild headache. Patient reports on Monday she was going in the house when the door swung back and hit her in the right side of her head. Patient does have a visible ab rasion to the right side of her head. Patient is well-known to this emergency department. Patient has a history of COPD, coronary artery disease, CHF, hypothyroidism, GERD, arrhythmia. Patient appears nontoxic. Patient appears in mild to no pain. 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 COPD (chronic obstructive pulmonary disease) Diastolic CHF Diastolic heart failure Emphysema, unspecified Essential (primary) hypertension GERD (gastroesophageal reflux disease) Hypothyroidism (acquired) Learning disability Lower extremity edema Moderate aortic regurgitation Pain of hand Seizure disorder SVT (supraventricular tachycardia) Systolic murmur Thyroid function study abnormality Venous stasis Surgical History H/O esophagogastroduodenoscopy 03/19/2019: Normal H/O thyroidectomy History of carpal tunnel surgery History of colonoscopy 03/19/2019: Normal repeat in 10 years Hx of section Family History Unknown No problems noted. Other Adopted Social History Smoking and tobacco/nicotine status: former use of tobacco/nicotine Quit status (tobacco/nicotine): has quit using Year quit tobacco: 2019 - 1-5 ciggs/day Alcohol intake: never Substance/Drug Use: never Lives independently: Yes Household members: none Housing: Apartment Current occupational status: disabled Do you think of yourself as: Straight/Heterosexual Current gender identity: Female Physical Exam Const: COMMON NORMALS: alert HENMT: COMMON NORMALS: Normal external nose present HEAD & SCALP: scalp tenderness and other (abrasion right hoahaoism area, 2.5 cm circular) NOSE: Normal external nose present Neck/C-Spine: COMMON NORMALS: full ROM CERVICAL SPINE: No step off deformity and Yes Paracervical muscle tenderness Resp: COMMON NORMALS: normal respiratory effort AUSCULTATION: diminished lung sounds Cardio: COMMON NORMALS: regular rate RATE: regular rate GI: COMMON NORMALS: non-tender Back/Pelvis: COMMON NORMALS: thoracic and lumbar spine normal to inspection Extremity: NARRATIVE EXTREMITY EXAM: edema lower leg asif, taut, no pitting Neuro: SENSORIUM/ORIENTATION: Yes alert Skin: COMMON NORMALS: turgor normal GENERAL SKIN EXAM: turgor normal Course Vital Signs: Vital signs: Vital Signs Temperature 97.7 F 11/25/22 17:22 Pulse Rate 61 11/25/22 18:29 Respiratory Rate 18 11/25/22 18:29 Blood Pressure 147/64 11/25/22 17:22 Pulse Oximetry 98 11/25/22 18:29 Oxygen Delivery Me thod Room Air 11/25/22 18:29 MDM - Headache Medical Decision Making 56-year-old female comes in today for complaints of injury to the right parietal scalp. Patient states on Monday the door came back and hit her in the side of the head. Since then patient has had a mild headache and dizziness. Patient appears nontoxic. Patient moves all extremities well. Patient does have some bilateral lower extremity swelling which she reports is worse. Patient also reports occasional angina which is not abnormal for her. Patient appears in mild to no pain. Vital signs are normal. Differential diagnosis includes intracranial bleed, contusion scalp, concussion syndrome, CHF, electrolyte imbalance. CT of the head, cervical spine and chest x-ray showed no acute findings. CBC was normal. CMP noted a creatinine 1.0, glucose 104, potassium 4 .0, and sodium 141. Patient was able to ambulate back without difficulty with use of her walker. This is normal for patient. Recommend patient continue with routine care and follow-up with primary care for further instructions. Patient stated understanding. Lab Data 11/25/22 17:45 11/25/22 17:45 Radiology Impressions Cervical Spine CT 11/25/22 17:18 IMPRESSION: Degenerative disc calcification with several areas of disc space narrowing most significant at seen C5-C6 in the cervical spine. Chest X-Ray 11/25/22 17:18 IMPRESSION: No acute findings. Head CT 11/25/22 17:18 IMPRESSION: Negative for intracranial hemorrhage or mass effect Laboratory Results WBC 7.77 10^3/uL (3.29-11.43) 11/25/22 17:45 RBC 4.56 10^6/uL (3.85-5.65) 11/25/22 17:45 Hgb 12.80 g/dL (11.27-16.99) 11/25/22 17:45 Hct 42.0 % (36-47) 11/25/22 17:45 MCV 92.1 fl (85-98) 11/25/22 17:45 MCH 28.1 pg (27-33) 11/25/22 17:45 MCHC 30.5 g/dL (30-55) 11/25/22 17:45 RDW 14.4 % (12.1-15.1) 11/25/22 17:45 Plt Count 321 10^3/cmm (157-399) 11/25/22 17:45 MPV 10.0 fL (7.4-10.4) 11/25/22 17:45 Neut % (Auto) 43.6 % 11/25/22 17:45 Lymph % (Auto) 39.4 % 11/25/22 17:45 Twiggs % (Auto) 11.5 % 11/25/22 17:45 Eos % (Auto) 4.2 % 11/25/22 17:45 Baso % (Auto) 1.0 % 11/25/22 17:45 Neut # (Auto) 3.39 10^3/uL (1.8-7.7) 11/25/22 17:45 Lymph # (Auto) 3.1 10^3/uL (0.8-4.8) 11/25/22 17:45 [place] # (Auto) 0.9 10^3/uL (0.2-0.9) 11/25/22 17:45 Eos # (Auto) 0.3 10^3/uL (0.0-0.8) 11/25/22 17:45 Baso # (Auto) 0.1 10^3/uL (0.0-0.1) 11/25/22 17:45 Nucleated RBC % (auto) 0 % 11/25/22 17:45 Nucleated RBCs # 0.0 /100WBC 11/25/22 17:45 Sodium 141 mmol/L (136-145) 11/25/22 17:45 Potassium 4.0 mmol/L (3.5-5.1) 11/25/22 17:45 Chloride 97 mmol/L (98-107) L 11/25/22 17:45 Carbon Dioxide 35 mmol/L (22-29) H 11/25/22 17:45 Anion Gap 13.0 (5-19) 11/25/22 17:45 BUN 18 mg/dL (6-20) 11/25/22 17:45 Creatinine 1.0 mg/dL (0.5-0.9) H 11/25/22 17:45 GFR Calculation 57.1 mL/min (90-130) L 11/25/22 17:45 Glucose 104 mg/dL (65-115) 11/25/22 17:45 Calculated Osmolality 294 mOsm/kg (285-295) 11/25/22 17:45 Calcium 9.2 mg/dL (8.5-10.5) 11/25/22 17:45 Total Bilirubin 0.9 mg/dL (0.15-1.2) 11/25/22 17:45 AST 17 U/L (0-32) 11/25/22 17:45 ALT 9 U/L (0-33) 11/25/22 17:45 Alkaline Phosphatase 98 U/L (35-105) 11/25/22 17:45 NT-Pro-B Natriuret Pep 387 pg/mL (0-125) H 11/25/22 17:45 Total Protein 7.0 g/dL (6.6-8.7) 11/25/22 17:45 Albumin 4.1 g/dL (3.5-5.2) 11/25/22 17:45 Globulin 2.9 g/dL (1.3-4.6) 11/25/22 17:45 All radiology interpretation(s) finalized by discharge EKG Data EKG 1: EKG interpretation date: 11/25/22 EKG interpretation time: 17:31 Prior EKG tracings: not available for review Interpretation: EKG shows a sinus rhythm with a regular rate of [address] elevation or ectopy is noted. No prior exam was available for immediate comparison. Computer generated interpretation: Sinus bradycardia, borderline EKG, unconfirmed report. Discharge Plan Discharge Patient Disposition: Home Clinical Impression: Abrasion head Qualifiers: Encounter type: initial encounter Qualified Code(s): S00.91XA - Abrasion of unspecified part of head, initial encounter Head injury Qualifiers: Encounter type: initial encounter Qualified Code(s): S09.90XA - Unspecified injury of head, initial encounter Condition: Stable Prescriptions: No Action levetiracetam 250 mg tablet 250 mg PO BID aspirin [Adult Aspirin Regimen] 81 mg tablet,delayed release (DR/EC) 81 mg PO QAM pantoprazole [Protonix] 40 mg tablet,delayed release (DR/EC) 40 mg PO QAM albuterol sulfate [ProAir HFA] 90 mcg/actuation HFA aerosol inhaler 2 puff INHALATION Q6H PRN (Reason: Shortness Of Breath) atorvastatin 20 mg tablet 20 mg PO BEDTIME budesonide 0.5 mg/2 mL suspension for nebulization 0.5 mg inhalation BID PRN (Reason: Shortness Of Breath Or Wheezing) magnesium oxide 500 mg tablet 500 mg PO DAILY acetaminophen 500 mg capsule 500 mg PO Q6H PRN (Reason: Pain) potassium chloride 20 mEq tablet extended release 20 meq PO DAILY Qty: 90 3RF bumetanide 2 mg tablet 2 mg PO DAILY Qty: 90 3RF Rx Instructions: 09/07/22 Decrease to 2mg once daily metoprolol succinate 50 mg tablet extended release 24 hr 75 mg PO BID Qty: 180 3RF hydroxyzine HCl 10 mg Tablet 10 mg PO TID PRN (Reason: Anxiety) spironolactone 25 mg tablet 25 mg PO DAILY trazodone 50 mg tablet 100 mg PO BEDTIME duloxetine 60 mg capsule,delayed release(DR/EC) 60 mg PO DAILY cetirizine 10 mg tablet 10 mg PO DAILY ipratropium-albuterol 0.5 mg-3 mg(2.5 mg base)/3 mL solution for nebulization 3 ml inhalation Q6H PRN (Reason: unknown) levothyroxine 125 mcg tablet 125 mcg PO DAILY gabapentin 300 mg capsule See Rx Instructions .ROUTE .COMPLEX Qty: 18 0RF Rx Instructions: take one cap today. Take one cap twice a day tomorrow, then begin taking one cap three times a day until gone prednisone 20 mg tablet 40 mg PO DAILY 5 Days Qty: 0 0RF Discharge Orders: Discharge ED (Routine); Ordered 11/25/22 Ordered By: Raul Troncoso Referrals: Akila Rivera DO [Primary Care Provider] - Discharge Diet: Usual diet Discharge Activity: Increase activity as tolerated Patient Instructions: Head Injury (ED) Activity Restrictions/Additional Instructions: Home and rest. Acetaminophen for pain. Use walker for ambulation. Drink plenty of water and fluids. Follow-up with primary care as needed. Return to ED for new concerns. Coding Level of Care Code ED Strategic Manager for Dc Serrato
--- NOTE | 2022-11-25 17:18 | CTR_ITS ---
PROCEDURE INFORMATION: Exam: CT Head Without Contrast Exam date and time: 11/25/2022 5:51 PM Age: 56 years old Clinical indication: Injury or trauma; Blunt trauma (contusions or hematomas); Patient HX: Patient accidentally struck in head by front door. C/O PENN and dizziness. Abrasion to RT temporal. ; Additional info: Fall injury, persistent SX TECHNIQUE: Imaging protocol: Computed tomography of the head without contrast. Radiation optimization: All CT scans at this facility use at least one of these dose optimization techniques: automated exposure control; mA and/or kV adjustment per patient size (includes targeted exams where dose is matched to clinical indication); or iterative reconstruction. REPORTING DATA: Count of CT and Cardiac NM exams in prior 12 months: This patient has received [address] and 0 known cardiac nuclear medicine studies in the 12 months prior to the current study. COMPARISON: CT head wo con* [id number] 05/18/2022 10:04 PM RADIATION DOSE METRICS: Total DLP (mGy-cm): 1029.5 FINDINGS: Brain: Mild diffuse white matter disease likely reflecting chronic microvascular ischemic changes. Cerebral ventricles: No ventriculomegaly. Paranasal sinuses: Visualized sinuses are unremarkable. No fluid levels. Mastoid air cells: Visualized mastoid air cells are well aerated. Bones/joints: Unremarkable. No acute fracture. Soft tissues: Unremarkable. CT/CT head wo con* [id number] IMPRESSION: Negative for intracranial hemorrhage or mass effect
--- NOTE | 2022-11-25 17:18 | ECG_ITS ---
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 Measurements Intervals [place] Rate: 57 P: 54 MN: 134 QRS: 40 QRSD: 102 T: 49 QT: 431 QTc: 422 Interpretive Statements SINUS BRADYCARDIA Compared to ECG 11/02/2022 17:29:01 Sinus rhythm no longer present Electronically Signed On 11-25-2022 23:07:58 CDT by Joseph Wilson M.D. [id number]
--- NOTE | 2022-11-25 17:18 | XRR_ITS ---
PROCEDURE INFORMATION: Exam: XR Chest Exam date and time: 11/25/2022 6:14 PM Age: 56 years old Clinical indication: Condition or disease; Patient HX: Weakness; Fluid retention; Concern for chf TECHNIQUE: Imaging protocol: Radiologic exam of the chest. Views: 1 view. COMPARISON: CR (CHEST, ) 11/02/2022 5:31 PM FINDINGS: Lungs: Unremarkable. No consolidation. Pleural spaces: Unremarkable. No pleural effusion. No pneumothorax. Heart/Mediastinum: Unremarkable. No cardiomegaly. Bones/joints: Unremarkable. XR/XR chest 1V portable [id number] IMPRESSION: No acute findings.
--- NOTE | 2022-11-25 17:18 | CTR_ITS ---
PROCEDURE INFORMATION: Exam: CT Cervical Spine Without Contrast Exam date and time: 11/25/2022 5:51 PM Age: 56 years old Clinical indication: Injury or trauma; Other: Blunt trauma; Patient HX: Patient accidentally struck in head by front door. C/O PENN and dizziness. Abrasion to RT temporal. ; Additional info: Fall injury TECHNIQUE: Imaging protocol: Computed tomography of the cervical spine without contrast. Radiation optimization: All CT scans at this facility use at least one of these dose optimization techniques: automated exposure control; mA and/or kV adjustment per patient size (includes targeted exams where dose is matched to clinical indication); or iterative reconstruction. REPORTING DATA: Count of CT and Cardiac NM exams in prior 12 months: This patient has received [address] and 0 known cardiac nuclear medicine studies in the 12 months prior to the current study. COMPARISON: MR cervical spin wo con* [id number] 06/15/2020 10:05 AM RADIATION DOSE METRICS: Total DLP (mGy-cm): 490.2 FINDINGS: Bones/joints: No acute fracture. Normal alignment. C2-C3: No significant disc bulge or herniation. No severe spinal canal stenosis. No significant neural foraminal narrowing. C3-C4: No significant disc bulge or herniation. No severe spinal canal stenosis. No significant neural foraminal narrowing. C4-C5: No significant disc bulge or herniation. No severe spinal canal stenosis. No significant neural foraminal narrowing. C5-C6: Degenerative disc calcification with several areas of disc space narrowing most significant at seen C5-C6 in the cervical spine. C6-C7: No significant disc bulge or herniation. No severe spinal canal stenosis. No significant neural foraminal narrowing. C7-T1: No significant disc bulge or herniation. No severe spinal canal stenosis. No significant neural foraminal narrowing. Lungs: Lung apices are normal. Soft tissues: Unremarkable. CT/CT cervical spin wo con* [id number] IMPRESSION: Degenerative disc calcification with several areas of disc space narrowing most significant at seen C5-C6 in the cervical spine.
[2022-11-25 17:22] VITALS: BP 147/64; PULSE 58; RESP 20; TEMP 36.5; O2SAT 95; BMI 38.0
[2022-11-25 17:52] LABS: Basophils # 0.1 10^3/uL (0.0-0.1); Eosinophils # 0.3 10^3/uL (0.0-0.8); Eosinophils % 4.2 %; Lymphocytes # 3.1 10^3/uL (0.8-4.8); Lymphocytes % 39.4 %; Mean Corpuscular HGB Conc 30.5 g/dL (30-55); Mean Corpuscular Hemoglobin 28.1 pg (27-33); Mean Corpuscular Volume 92.1 fl (85-98); Monocytes # 0.9 10^3/uL (0.2-0.9); Monocytes % 11.5 %; Neutrophils # 3.39 10^3/uL (1.8-7.7); Neutrophils % 43.6 %; Nucleated Red Blood Cells % 0 %; Platelet Count 321 10^3/cmm (157-399); Red Blood Count 4.56 10^6/uL (3.85-5.65); Red Cell Distribution Width 14.4 % (12.1-15.1); White Blood Count 7.77 10^3/uL (3.29-11.43)
[2022-11-25 18:26] LABS: Alanine Aminotransferase 9 U/L (0-33); Albumin Level 4.1 g/dL (3.5-5.2); Alkaline Phosphatase 98 U/L (35-105); Aspartate Amino Transferase 17 U/L (0-32); Blood Urea Nitrogen 18 mg/dL (6-20); Calcium 9.2 mg/dL (8.5-10.5); Carbon Dioxide 35 mmol/L (22-29); Chloride 97 mmol/L (98-107); Globulin 2.9 g/dL (1.3-4.6); Glomerular Filtration Rate 57.1 mL/min (90-130); Glucose 104 mg/dL (65-115); NT Pro B Type Natriuretic Pept 387 pg/mL (0-125); Osmolality Calculated 294 mOsm/kg (285-295); Sodium 141 mmol/L (136-145); Total Bilirubin 0.9 mg/dL (0.15-1.2)
[2022-11-25 18:29] VITALS: PULSE 61; RESP 18; O2SAT 98
[2022-11-25 19:44] VITALS: BP 147/64; PULSE 58; O2SAT 94
== END 2022-11-25 19:18 | disposition home or self-care (01) ==
PROVIDERS: Emergency Provider Nurse Practitioner Family; PCP Family Medicine
DX: S00.01XA Abrasion of scalp, initial encounter (principal); Z79.82 Long term (current) use of aspirin; Z87.891 Personal history of nicotine dependence; J44.9 Chronic obstructive pulmonary disease, unspecified; I11.0 Hypertensive heart disease with heart failure; I50.30 Unspecified diastolic (congestive) heart failure; W20.8XXA Other cause of strike by thrown, projected or falling object, initial encounter
CPT/HCPCS: 36415; 70450; 71045; 72125; 80053; 83880; 85025; 93005; 99285

== ENCOUNTER 2022-12-15 19:27 | Emergency (ER) | payer MEDICARE, MEDICAID, SELFPAY ==
[2022-12-15 19:28] VITALS: BP 169/74; PULSE 59; RESP 18; TEMP 36.4; O2SAT 94; BMI 39.1
--- NOTE | 2022-12-15 19:29 | XRR_ITS ---
PROCEDURE INFORMATION: Exam: XR Chest Exam date and time: 12/15/2022 7:46 PM Age: 56 years old Clinical indication: Chest wall pain; Additional info: Chest pain TECHNIQUE: Imaging protocol: Radiologic exam of the chest. Views: 1 view. COMPARISON: CR (CHEST, ) 11/25/2022 6:14 PM FINDINGS: Lungs: Lungs are clear bilaterally. Pleural spaces: No pleural effusion. No pneumothorax. Heart/Mediastinum: Stable mild enlargement of the cardiac silhouette. Vasculature: Stable vascular calcifications in the aorta. Bones/joints: Unremarkable for age. XR/XR chest 1V portable [id number] IMPRESSION: 1. No acute cardiopulmonary process. 2. Incidental/nonacute findings are listed in the report.
--- NOTE | 2022-12-15 19:29 | ECG_ITS ---
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 Measurements Intervals [place] Rate: 57 P: 60 WV: 135 QRS: 40 QRSD: 95 T: 53 QT: 427 QTc: 417 Interpretive Statements SINUS BRADYCARDIA Compared to ECG 11/25/2022 17:25:14 No significant changes Electronically Signed On 12-15-2022 22:42:30 RECREATION WORKER by Joseph Wilson M.D. [id number]
[2022-12-15 19:54] LABS: Basophils # 0.1 10^3/uL (0.0-0.1); Basophils % 0.9 %; Eosinophils # 0.3 10^3/uL (0.0-0.8); Eosinophils % 3.4 %; Hematocrit 41.5 % (36-47); Lymphocytes # 3.5 10^3/uL (0.8-4.8); Lymphocytes % 42.4 %; Mean Corpuscular HGB Conc 31.1 g/dL (30-55); Mean Corpuscular Hemoglobin 28.5 pg (27-33); Mean Corpuscular Volume 91.8 fl (85-98); Mean Platelet Volume 10.1 fL (7.4-10.4); Monocytes # 0.8 10^3/uL (0.2-0.9); Monocytes % 9.8 %; Neutrophils # 3.55 10^3/uL (1.8-7.7); Neutrophils % 43.3 %; Nucleated Red Blood Cells % 0 %; Platelet Count 280 10^3/cmm (157-399); Red Blood Count 4.52 10^6/uL (3.85-5.65); Red Cell Distribution Width 13.5 % (12.1-15.1); White Blood Count 8.19 10^3/uL (3.29-11.43)
[2022-12-15 20:10] LABS: Troponin(5th) Baseline 15 ng/L (0-10)
[2022-12-15 20:20] LABS: Alanine Aminotransferase 11 U/L (0-33); Albumin Level 4.3 g/dL (3.5-5.2); Alkaline Phosphatase 101 U/L (35-105); Anion Gap 15.2 (5-19); Aspartate Amino Transferase 17 U/L (0-32); Blood Urea Nitrogen 11 mg/dL (6-20); Carbon Dioxide 32 mmol/L (22-29); Chloride 97 mmol/L (98-107); Globulin 2.4 g/dL (1.3-4.6); Glomerular Filtration Rate 64.5 mL/min (90-130); Glucose 101 mg/dL (65-115); NT Pro B Type Natriuretic Pept 237 pg/mL (0-125); Osmolality Calculated 290 mOsm/kg (285-295); Potassium 4.2 mmol/L (3.5-5.1); Sodium 140 mmol/L (136-145); Total Bilirubin 1.6 mg/dL (0.15-1.2); Total Protein 6.7 g/dL (6.6-8.7)
--- NOTE | 2022-12-15 20:25 | W.ED.CHESTPA ---
HPI - Chest Pain General: Chief Complaint: Chest Pain Stated Complaint: SOB, Chest Pain Time Seen by Provider: 12/15/22 19:29 History of Present Illness: Patient presents to the ER with complaints of shortness of breath and chest pain after leaning down to play with her cat. Patient states that the chest pain is worse on the right side of her chest and worse when she takes a big deep breath. Patient denies any nausea vomiting diaphoresis. 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 COPD (chronic obstructive pulmonary disease) Diastolic CHF Diastolic heart failure Emphysema, unspecified Essential (primary) hypertension GERD (gastroesophageal reflux disease) Hypothyroidism (acquired) Learning disability Lower extremity edema Moderate aortic regurgitation Pain of hand Seizure disorder SVT (supraventricular tachycardia) Systolic murmur Thyroid function study abnormality Venous stasis Surgical History H/O esophagogastroduodenoscopy 03/19/2019: Normal H/O thyroidectomy History of carpal tunnel surgery History of colonoscopy 03/19/2019: Normal repeat in 10 years Hx of section Family History Unknown No problems noted. Other Adopted Social History Smoking and tobacco/nicotine status: former use of tobacco/nicotine Quit status (tobacco/nicotine): has quit using Year quit tobacco: 2019 - 1-5 ciggs/day Alcohol intake: never Substance/Drug Use: never Lives independently: Yes Household members: none Housing: Apartment Current occupational status: disabled Do you think of yourself as: Straight/Heterosexual Current gender identity: Female Physical Exam Const: COMMON NORMALS: no acute distress, average body habitus, patient oriented x3, no limitations, healthy appearing, alert and well nourished HENMT: COMMON NORMALS: normocephalic, atraumatic, hearing grossly normal bilaterally, external ears normal, Normal external nose present, moist oral mucous membranes and oropharynx normal HEAD & SCALP: normocephalic and atraumatic NOSE: Normal external nose present EXTERNAL EAR: Yes external ears normal Neck/C-Spine: COMMON NORMALS: full ROM, no lymphadenopathy, supple, no meningeal signs, no JVD and Thyroid normal THYROID: Thyroid normal Chest: COMMONS NORMALS: normal inspection of the chest; negative for normal palpation of entire chest wall (Tenderness to palpation of right chest wall anterior that reproduces pain) Resp: COMMON NORMALS: normal respiratory effort, No retractions, No use of accessory muscles and clear to auscultation bilaterally AUSCULTATION: clear to auscultation bilaterally Cardio: COMMON NORMALS: no JVD, regular rate, regular rhythm, S1 normal heart sound present, S2 normal heart sound present, No gallops present (Cardio), No clicks present (Cardio), No murmurs present (Cardio) and No rub (Cardio) RATE: regular rate RHYTHM: regular rhythm HEART SOUNDS: S1 normal heart sound present and S2 normal heart sound present GI: COMMON NORMALS: Normal to inspection, nondistended, normoactive bowel sounds present, Soft to palpation, non-tender, No hepatosplenomegaly present and no masses PALPATION: Yes Soft to palpation and Yes No hepatosplenomegaly present Neuro: COMMON NORMALS: patient oriented x3 SENSORIUM/ORIENTATION: Yes alert MENINGEAL SIGNS: Yes no meningeal signs Course Vital Signs: Vital signs: Vital Signs Temperature 97.6 F 12/15/22 19:28 Pulse Rate 59 L 12/15/22 19:28 Respiratory Rate 18 12/15/22 19:28 Blood Pressure 169/74 12/15/22 19:28 Pulse Oximetry 94 12/15/22 19:28 Oxygen Delivery Me thod Room Air 12/15/22 19:28 MDM - Chest Pain Medical Decision Making Patient has been worked up in a standard chest pain fashion with serial EKGs and serial enzymes. Patient's pain is reproducible with palpation. It is felt that patient's pain is noncardiac in nature when lab work is returned assume patient will be discharged home to follow-up with her PCP. Differential Diagnosis Unlikely acute massive pulmonary embolism, acute respiratory failure, acute myocardial infarction, cardiac arrest or sudden cardiac Medical Records I reviewed the patient's medical records. Lab Data I reviewed the patient's lab results. 12/15/22 19:45 12/15/22 19:45 Radiology Impressions Chest X-Ray 12/15/22 19:29 IMPRESSION: 1. No acute cardiopulmonary process. 2. Incidental/nonacute findings are listed in the report. Laboratory Results WBC 8.19 10^3/uL (3.29-11.43) 12/15/22 19:45 RBC 4.52 10^6/uL (3.85-5.65) 12/15/22 19:45 Hgb 12.90 g/dL (11.27-16.99) 12/15/22 19:45 Hct 41.5 % (36-47) 12/15/22 19:45 MCV 91.8 fl (85-98) 12/15/22 19:45 MCH 28.5 pg (27-33) 12/15/22 19:45 MCHC 31.1 g/dL (30-55) 12/15/22 19:45 RDW 13.5 % (12.1-15.1) 12/15/22 19:45 Plt Count 280 10^3/cmm (157-399) 12/15/22 19:45 MPV 10.1 fL (7.4-10.4) 12/15/22 19:45 Neut % (Auto) 43.3 % 12/15/22 19:45 Lymph % (Auto) 42.4 % 12/15/22 19:45 [place] % (Auto) 9.8 % 12/15/22 19:45 Eos % (Auto) 3.4 % 12/15/22 19:45 Baso % (Auto) 0.9 % 12/15/22 19:45 Neut # (Auto) 3.55 10^3/uL (1.8-7.7) 12/15/22 19:45 Lymph # (Auto) 3.5 10^3/uL (0.8-4.8) 12/15/22 19:45 [place] # (Auto) 0.8 10^3/uL (0.2-0.9) 12/15/22 19:45 Eos # (Auto) 0.3 10^3/uL (0.0-0.8) 12/15/22 19:45 Baso # (Auto) 0.1 10^3/uL (0.0-0.1) 12/15/22 19:45 Nucleated RBC % (auto) 0 % 12/15/22 19:45 Nucleated RBCs # 0.0 /100WBC 12/15/22 19:45 Sodium 140 mmol/L (136-145) 12/15/22 19:45 Potassium 4.2 mmol/L (3.5-5.1) 12/15/22 19:45 Chloride 97 mmol/L (98-107) L 12/15/22 19:45 Carbon Dioxide 32 mmol/L (22-29) H 12/15/22 19:45 Anion Gap 15.2 (5-19) 12/15/22 19:45 BUN 11 mg/dL (6-20) 12/15/22 19:45 Creatinine 0.9 mg/dL (0.5-0.9) 12/15/22 19:45 GFR Calculation 64.5 mL/min (90-130) L 12/15/22 19:45 Glucose 101 mg/dL (65-115) 12/15/22 19:45 Calculated Osmolality 290 mOsm/kg (285-295) 12/15/22 19:45 Calcium 9.0 mg/dL (8.5-10.5) 12/15/22 19:45 Magnesium 2.0 mg/dL (1.7-2.3) 12/15/22 19:45 Total Bilirubin 1.6 mg/dL (0.15-1.2) H 12/15/22 19:45 AST 17 U/L (0-32) 12/15/22 19:45 ALT 11 U/L (0-33) 12/15/22 19:45 Alkaline Phosphatase 101 U/L (35-105) 12/15/22 19:45 Troponin T Baseline 15 ng/L (0-10) H 12/15/22 19:45 Troponin T 120 Minute 13.52 ng/L (0-10) H 12/15/22 21:45 Delta Troponin T -1.48 ABS# (0-10) L 12/15/22 21:45 NT-Pro-B Natriuret Pep 237 pg/mL (0-125) H 12/15/22 19:45 Total Protein 6.7 g/dL (6.6-8.7) 12/15/22 19:45 Albumin 4.3 g/dL (3.5-5.2) 12/15/22 19:45 Globulin 2.4 g/dL (1.3-4.6) 12/15/22 19:45 Urine Color Yellow (Yellow) 12/15/22 20:57 Urine Appearance Clear (CLEAR) 12/15/22 20:57 Urine pH 6 (5-7) 12/15/22 20:57 Ur Specific [place] 1.010 (1.005-1.030) 12/15/22 20:57 Urine Protein Neg (Negative) 12/15/22 20:57 Urine Glucose (UA) Norm (Normal) 12/15/22 20:57 Urine Ketones Negative (Negative) 12/15/22 20:57 Urine Blood Neg (Negative) 12/15/22 20:57 Urine Nitrate Negative (Negative) 12/15/22 20:57 Urine Bilirubin Neg (Negative) 12/15/22 20:57 Urine Urobilinogen Norm mg/dL (Negative) 12/15/22 20:57 Ur Leukocyte Esterase Negative (Negative) 12/15/22 20:57 All radiology interpretation(s) finalized by discharge EKG Data EKG 1: I personally reviewed and interpreted this EKG as follows: EKG interpretation date: 12/15/22 EKG interpretation time: 19:29 Prior EKG tracings: not available for review Interpretation: EKG showed ventricular rate 57 bpm, CO interval 135, QRS duration 95, QTc of 421, sinus bradycardia, no ST-T wave changes EKG 2: I personally reviewed and interpreted this EKG as follows: EKG interpretation date: 12/15/22 EKG interpretation time: 21:32 Prior EKG tracings: available for review Interpretation: EKG shows ventricular rate 53 beats minute, CO interval 143, QRS duration 110, QTc of 440, sinus bradycardia Discharge Plan Discharge Patient Disposition: Home Clinical Impression: Atypical chest pain Condition: Stable Prescriptions: No Action levetiracetam 250 mg tablet 250 mg PO BID aspirin [Adult Aspirin Regimen] 81 mg tablet,delayed release (DR/EC) 81 mg PO QAM pantoprazole [Protonix] 40 mg tablet,delayed release (DR/EC) 40 mg PO QAM albuterol sulfate [ProAir HFA] 90 mcg/actuation HFA aerosol inhaler 2 puff INHALATION Q6H PRN (Reason: Shortness Of Breath) atorvastatin 20 mg tablet 20 mg PO BEDTIME budesonide 0.5 mg/2 mL suspension for nebulization 0.5 mg inhalation BID PRN (Reason: Shortness Of Breath Or Wheezing) magnesium oxide 500 mg tablet 500 mg PO DAILY acetaminophen 500 mg capsule 500 mg PO Q6H PRN (Reason: Pain) potassium chloride 20 mEq tablet extended release 20 meq PO DAILY Qty: 90 3RF bumetanide 2 mg tablet 2 mg PO DAILY Qty: 90 3RF Rx Instructions: 09/07/22 Decrease to 2mg once daily metoprolol succinate 50 mg tablet extended release 24 hr 75 mg PO BID Qty: 180 3RF hydroxyzine HCl 10 mg Tablet 10 mg PO TID PRN (Reason: Anxiety) spironolactone 25 mg tablet 25 mg PO DAILY trazodone 50 mg tablet 100 mg PO BEDTIME duloxetine 60 mg capsule,delayed release(DR/EC) 60 mg PO DAILY cetirizine 10 mg tablet 10 mg PO DAILY ipratropium-albuterol 0.5 mg-3 mg(2.5 mg base)/3 mL solution for nebulization 3 ml inhalation Q6H PRN (Reason: unknown) levothyroxine 125 mcg tablet 125 mcg PO DAILY gabapentin 300 mg capsule See Rx Instructions .ROUTE .COMPLEX Qty: 18 0RF Rx Instructions: take one cap today. Take one cap twice a day tomorrow, then begin taking one cap three times a day until gone prednisone 20 mg tablet 40 mg PO DAILY 5 Days Qty: 0 0RF Discharge Orders: Discharge ED (Routine); Ordered 12/15/22 Ordered By: Zahc Magana Referrals: Akila iRvera DO [Primary Care Provider] - Patient Instructions: Chest Pain - Noncardiac Activity Restrictions/Additional Instructions: All your lab work points to a noncardiac cause of your chest pain. Please follow-up with your family practice doctor in the next 7 to 10 days for further evaluation and treatment as needed. Coding Level of Care Code ED Vehicle And Equipment Cleaner for Dc Serrato
--- NOTE | 2022-12-15 20:46 | PC.NURSE ---
Pt. states that her chest hurts when she takes a deep breath. Pain is reproducible with palpation.
[2022-12-15 21:02] LABS: Add Urine Microscopic? NO; Charge for UA Resulting for Rev
[2022-12-15 21:05] LABS: Bilirubin Urine Neg (Negative); Blood Urine Neg (Negative); Glucose Urine UA Norm (Normal); Ketones Urine Negative (Negative); Leukocyte Esterase Urine Negative (Negative); Nitrate Urine Negative (Negative); Protein Urine Neg (Negative); Urine Appearance Clear (CLEAR); Urine Color Yellow (Yellow); Urobilinogen Urine Norm (Negative); pH Urine 6 (5-7)
--- NOTE | 2022-12-15 21:32 | ECG_ITS ---
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 Measurements Intervals [place] Rate: 53 P: 62 AK: 143 QRS: 44 QRSD: 110 T: 49 QT: 456 QTc: 432 Interpretive Statements SINUS BRADYCARDIA POSSIBLE RIGHT VENTRICULAR CONDUCTION DELAY [RSR (QR) IN V1/V2] Compared to ECG 12/15/2022 19:29:57 No significant changes Electronically Signed On 12-15-2022 22:42:40 GAS METER MECHANIC by Joseph Wilson M.D. [id number]
[2022-12-15 22:17] LABS: Troponin 5 2HR 13.52 ng/L (0-10)
[2022-12-15 22:18] LABS: Troponin 5 2HR Delta -1.48 ABS# (0-10)
[2022-12-15 22:46] VITALS: BP 129/50; PULSE 51; RESP 18; O2SAT 94
== END 2022-12-15 22:47 | disposition home or self-care (01) ==
PROVIDERS: Emergency Provider Emergency Medicine; PCP Family Medicine
DX: R07.89 Other chest pain (principal); Z79.82 Long term (current) use of aspirin; Z87.891 Personal history of nicotine dependence; J44.9 Chronic obstructive pulmonary disease, unspecified; I11.0 Hypertensive heart disease with heart failure; I50.9 Heart failure, unspecified
CPT/HCPCS: 36415; 71045; 80053; 81003; 83735; 83880; 84484; 85025; 93005; 99285

== ENCOUNTER 2023-01-02 14:38 | Outpatient (CLI) | payer MEDICARE, MEDICAID, SELFPAY ==
--- NOTE | 2023-01-02 14:46 | XRR_ITS ---
PROCEDURE INFORMATION: Exam: XR Left Hand Exam date and time: 01/02/2023 3:15 PM Age: 57 years old Clinical indication: Pain; Hand; Left; Prior surgery; Surgery date: 6+ months; Surgery type: Carpal tunnel; Additional info: Left finger pain/pain in 5th digit TECHNIQUE: Imaging protocol: Radiologic exam of the left hand. Views: 3 or more views. COMPARISON: CR XR hand LT min 3V* [id number] 10/19/2022 6:51 PM FINDINGS: Bones/joints: No acute fracture or dislocation identified. Degenerative changes noted most prominently at the 1st metacarpal-phalangeal joint. There is slight ulnar deviation of the 3rd distal phalanx relative to the middle phalanx, similar to previous. Soft tissues: Soft tissue prominence overlying the base of the 5th metacarpal, nonspecific but could reflect swelling XR/XR hand LT 2V [id number] IMPRESSION: 1. No acute osseous abnormality identified.
== END 2023-01-02 14:39 | disposition home or self-care (01) ==
LOC: RAD 14:40
PROVIDERS: PCP Family Medicine; Visit Provider Family Medicine
DX: M79.645 Pain in left finger(s) (principal)
CPT/HCPCS: 73120

== ENCOUNTER 2023-01-07 17:40 | Emergency (ER) | payer MEDICARE, MEDICAID, SELFPAY ==
[2023-01-07 18:43] LABS: Basophils # 0.1 10^3/uL (0.0-0.1); Basophils % 0.9 %; Eosinophils # 0.3 10^3/uL (0.0-0.8); Eosinophils % 3.9 %; Hematocrit 43.2 % (36-47); Lymphocytes # 2.9 10^3/uL (0.8-4.8); Lymphocytes % 36.8 %; Mean Corpuscular HGB Conc 30.3 g/dL (30-55); Mean Corpuscular Hemoglobin 28.6 pg (27-33); Mean Corpuscular Volume 94.3 fl (85-98); Mean Platelet Volume 10.2 fL (7.4-10.4); Monocytes # 0.7 10^3/uL (0.2-0.9); Monocytes % 8.9 %; Neutrophils # 3.91 10^3/uL (1.8-7.7); Neutrophils % 49.2 %; Nucleated Red Blood Cells % 0 %; Platelet Count 264 10^3/cmm (157-399); Red Blood Count 4.58 10^6/uL (3.85-5.65); Red Cell Distribution Width 13.2 % (12.1-15.1); White Blood Count 7.94 10^3/uL (3.29-11.43)
[2023-01-07 18:48] VITALS: BP 122/58; PULSE 64; RESP 16; TEMP 36.8; O2SAT 96; BMI 39.1
[2023-01-07 19:01] LABS: Alanine Aminotransferase 10 U/L (0-33); Albumin Level 4.1 g/dL (3.5-5.2); Alkaline Phosphatase 104 U/L (35-105); Aspartate Amino Transferase 17 U/L (0-32); Blood Urea Nitrogen 14 mg/dL (6-20); Calcium 9.2 mg/dL (8.5-10.5); Carbon Dioxide 34 mmol/L (22-29); Chloride 99 mmol/L (98-107); Globulin 3.1 g/dL (1.3-4.6); Glomerular Filtration Rate 64.3 mL/min (90-130); Glucose 98 mg/dL (65-115); Lipase 35 U/L (13-60); Osmolality Calculated 292 mOsm/kg (285-295); Sodium 141 mmol/L (136-145); Total Bilirubin 1.4 mg/dL (0.15-1.2); Total Protein 7.2 g/dL (6.6-8.7)
--- NOTE | 2023-01-07 20:32 | ED_ITS ---
HPI - Abdominal Pain 2 General: Chief Complaint: Abdominal Pain Stated Complaint: ABD PAIN Time Seen by Provider: 01/07/23 20:17 History of Present Illness: 57-year-old female comes in today with s ome epigastric abdominal pain for the last 2 to 3 days. Patient was seen by her primary care 3 days ago for same complaints and labs were drawn. Patient was noted to have some renal dysfunction was recommended to follow back up in 2 weeks for recheck labs. Patient came in tonight for the concerns of abnormal labs. Patient appears nontoxic. Patient has a history of intellectual disability, CHF, COPD, GERD, hypothyroidism. Patient appears in mild to no pain. 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 COPD (chronic obstructive pulmonary disease) Diastolic CHF Diastolic heart failure Emphysema, unspecified Essential (primary) hypertension GERD (gastroesophageal reflux disease) Hypothyroidism (acquired) Learning disability Lower extremity edema Moderate aortic regurgitation Pain of hand Seizure disorder SVT (supraventricular tachycardia) Systolic murmur Thyroid function study abnormality Venous stasis Surgical History H/O esophagogastroduodenoscopy 03/19/2019: Normal H/O thyroidectomy History of carpal tunnel surgery History of colonoscopy 03/19/2019: Normal repeat in 10 years Hx of section Family History Unknown No problems noted. Other Adopted Social History Smoking and tobacco/nicotine status: former use of tobacco/nicotine Quit status (tobacco/nicotine): has quit using Year quit tobacco: 2019 - 1-5 ciggs/day Alcohol intake: never Substance/Drug Use: never Lives independently: Yes Household members: none Housing: Apartment Current occupational status: disabled Do you think of yourself as: Straight/Heterosexual Current gender identity: Female Physical Exam 2 Const: COMMON NORMALS: alert HENMT: COMMON NORMALS: normocephalic HEAD & SCALP: normocephalic Neck/C-Spine: COMMON NORMALS: full ROM Resp: COMMON NORMALS: normal respiratory effort and clear to auscultation bilaterally AUSCULTATION: clear to auscultation bilaterally Cardio: COMMON NORMALS: regular rate and regular rhythm RATE: regular rate RHYTHM: regular rhythm GI: COMMON NORMALS: Soft to palpation PALPATION: Yes Soft to palpation and Yes Tenderness to palpation present (GI) (Left epigastric) Details: LUQ : COMMON NORMALS: Yes no CVA tenderness BLADDER/KIDNEY EXAM: Yes no CVA tenderness Back/Pelvis: COMMON NORMALS: no CVA tenderness Extremity: NARRATIVE EXTREMITY EXAM: Bilateral lower extremity edema, PVD versus lymphedema. Neuro: SENSORIUM/ORIENTATION: Yes alert Skin: COMMON NORMALS: turgor normal GENERAL SKIN EXAM: turgor normal Course 2 ED course: 2138, patient reports some improvement o f pain after GI cocktail but continues to have nausea. Patient be given 1 mg of of lorazepam for anxiety and reevaluated. Vital Signs: Vital signs: Vital Signs Temperature 98.3 F 01/07/23 18:48 Pulse Rate 64 01/07/23 18:48 Respiratory Rate 16 01/07/23 18:48 Blood Pressure 122/58 01/07/23 18:48 Pulse Oximetry 96 01/07/23 18:48 Oxygen Delivery Me thod Room Air 01/07/23 18:48 MDM - Abdominal Pain Medical Decision Making 57-year-old female comes in today with some epigastric discomfort. Patient also reports some emesis at bedtime. Patient reports symptoms been going on for several days now. Patient had been seen by primary care and labs were done noting some CKD. Patient appears nontoxic at this time. Abdomen soft with some mild epigastric tenderness. Bowel sounds are present. Vital signs are normal. Differential diagnosis includes but not limited to GERD, gastritis, dehydration, malingering versus anxiety. CBC CMP was unremarkable. Patient was treated for her abdominal pain with a GI cocktail with good results. Patient was also treated with Reglan with good results. Patient was given 1 mg of Ativan for anxiety. Patient was able to relax and felt better and was discharged home with recommendations for continuing routine medications and follow-up with primary care. Patient stated understanding and agreed to plan. Lab Data 01/07/23 18:31 01/07/23 18: Labs/Radiology: Laboratory Results WBC 7.94 10^3/uL (3.29-11.43) 01/07/23 18: RBC 4.58 10^6/uL (3.85-5.65) 01/07/23 18: Hgb 13.10 g/dL (11.27-16.99) 01/07/23 18: Hct 43.2 % (36-47) 01/07/23 18: MCV 94.3 fl (85-98) 01/07/23 18: MCH 28.6 pg (27-33) 01/07/23 18: MCHC 30.3 g/dL (30-55) 01/07/23 18: RDW 13.2 % (12.1-15.1) 01/07/23 18: Plt Count 264 10^3/cmm (157-399) 01/07/23 18: MPV 10.2 fL (7.4-10.4) 01/07/23 18: Neut % (Auto) 49.2 % 01/07/23 18: Lymph % (Auto) 36.8 % 01/07/23 18: [place] % (Auto) 8.9 % 01/07/23 18: Eos % (Auto) 3.9 % 01/07/23 18: Baso % (Auto) 0.9 % 01/07/23 18: Neut # (Auto) 3.91 10^3/uL (1.8-7.7) 01/07/23 18: Lymph # (Auto) 2.9 10^3/uL (0.8-4.8) 01/07/23 18: [place] # (Auto) 0.7 10^3/uL (0.2-0.9) 01/07/23 18: Eos # (Auto) 0.3 10^3/uL (0.0-0.8) 01/07/23 18: Baso # (Auto) 0.1 10^3/uL (0.0-0.1) 01/07/23 18:31 Nucleated RBC % (auto) 0 % 01/07/23 18:31 Nucleated RBCs # 0.0 /100WBC 01/07/23 18:31 Sodium 141 mmol/L (136-145) 01/07/23 18:31 Potassium 4.0 mmol/L (3.5-5.1) 01/07/23 18:31 Chloride 99 mmol/L (98-107) 01/07/23 18:31 Carbon Dioxide 34 mmol/L (22-29) H 01/07/23 18:31 Anion Gap 12.0 (5-19) 01/07/23 18:31 BUN 14 mg/dL (6-20) 01/07/23 18:31 Creatinine 0.9 mg/dL (0.5-0.9) 01/07/23 18:31 GFR Calculation 64.3 mL/min (90-130) L 01/07/23 18:31 Glucose 98 mg/dL (65-115) 01/07/23 18:31 Calculated Osmolality 292 mOsm/kg (285-295) 01/07/23 18:31 Calcium 9.2 mg/dL (8.5-10.5) 01/07/23 18:31 Total Bilirubin 1.4 mg/dL (0.15-1.2) H 01/07/23 18:31 AST 17 U/L (0-32) 01/07/23 18:31 ALT 10 U/L (0-33) 01/07/23 18:31 Alkaline Phosphatase 104 U/L (35-105) 01/07/23 18:31 Total Protein 7.2 g/dL (6.6-8.7) 01/07/23 18:31 Albumin 4.1 g/dL (3.5-5.2) 01/07/23 18:31 Globulin 3.1 g/dL (1.3-4.6) 01/07/23 18:31 Lipase 35 U/L (13-60) 01/07/23 18:31 No radiology studies performed this visit Discharge Plan Discharge Patient Disposition: Home Clinical Impression: GERD (gastroesophageal reflux disease) Qualifiers: Esophagitis presence: esophagitis presence not specified Qualified Code(s): K 21.9 - Gastro-esophageal reflux disease without esophagitis Condition: Stable Prescriptions: No Action levetiracetam 250 mg tablet 250 mg PO BID aspirin [Adult Aspirin Regimen] 81 mg tablet,delayed release (DR/EC) 81 mg PO QAM pantoprazole [Protonix] 40 mg tablet,delayed release (DR/EC) 40 mg PO QAM albuterol sulfate [ProAir HFA] 90 mcg/actuation HFA aerosol inhaler 2 puff INHALATION Q6H PRN (Reason: Shortness Of Breath) atorvastatin 20 mg tablet 20 mg PO BEDTIME budesonide 0.5 mg/2 mL suspension for nebulization 0.5 mg inhalation BID PRN (Reason: Shortness Of Breath Or Wheezing) magnesium oxide 500 mg tablet 500 mg PO DAILY acetaminophen 500 mg capsule 500 mg PO Q6H PRN (Reason: Pain) potassium chloride 20 mEq tablet extended release 20 meq PO DAILY Qty: 90 3RF bumetanide 2 mg tablet 2 mg PO DAILY Qty: 90 3RF Rx Instructions: 09/07/22 Decrease to 2mg once daily metoprolol succinate 50 mg tablet extended release 24 hr 75 mg PO BID Qty: 180 3RF hydroxyzine HCl 10 mg Tablet 10 mg PO TID PRN (Reason: Anxiety) spironolactone 25 mg tablet 25 mg PO DAILY trazodone 50 mg tablet 100 mg PO BEDTIME duloxetine 60 mg capsule,delayed release(DR/EC) 60 mg PO DAILY cetirizine 10 mg tablet 10 mg PO DAILY ipratropium-albuterol 0.5 mg-3 mg(2.5 mg base)/3 mL solution for nebulization 3 ml inhalation Q6H PRN (Reason: unknown) levothyroxine 125 mcg tablet 125 mcg PO DAILY gabapentin 300 mg capsule See Rx Instructions .ROUTE .COMPLEX Qty: 18 0RF Rx Instructions: take one cap today. Take one cap twice a day tomorrow, then begin taking one cap three times a day until gone prednisone 20 mg tablet 40 mg PO DAILY 5 Days Qty: 0 0RF Discharge Orders: Discharge ED (Routine); Ordered 01/07/23 Ordered By: Raul Troncoso Referrals: Akila Rivera DO [Primary Care Provider] - Discharge Diet: Advance as tolerated Discharge Activity: Increase activity as tolerated Patient Instructions: Esophageal Spasm (ED) Activity Restrictions/Additional Instructions: Drink plenty of water and fluids. Continue with routine medicines as directed. Follow-up with primary care as needed. Return to ED for new concerns. Coding Level of Care Code ED Communications Supervisor for Dc Serrato
[2023-01-07] MEDS: metoclopramide 5 mg/mL SDV 2 mL 10 MG IM (21:22)
[2023-01-07] MEDS: lidocaine 2% viscous 15 ML, aluminum-mag hydrox-simethicon 30 ML, sucralfate oral liq 1 GM PO (21:25)
[2023-01-07] MEDS: LORazepam 2 mg/mL INJ 1 mL 1 MG IM (22:00)
== END 2023-01-07 23:04 | disposition home or self-care (01) ==
PROVIDERS: Emergency Provider Nurse Practitioner Family; PCP Family Medicine
DX: K21.9 Gastro-esophageal reflux disease without esophagitis (principal); Z79.82 Long term (current) use of aspirin; Z87.891 Personal history of nicotine dependence; J44.9 Chronic obstructive pulmonary disease, unspecified; I11.0 Hypertensive heart disease with heart failure; I50.9 Heart failure, unspecified
CPT/HCPCS: 80053; 83690; 85025; 96372; 99284; J2060; J2765

== ENCOUNTER 2023-01-11 17:13 | Emergency (ER) | payer MEDICARE, MEDICAID, SELFPAY ==
[2023-01-11 17:14] VITALS: BMI 38.3
--- NOTE | 2023-01-11 17:18 | XRR_ITS ---
PROCEDURE INFORMATION: Exam: XR Chest Exam date and time: 01/11/2023 5:22 PM Age: 57 years old Clinical indication: Dyspnea and other: Abd pain TECHNIQUE: Imaging protocol: Radiologic exam of the chest. Views: 1 view. COMPARISON: CR (CHEST, ) 12/15/2022 7:46 PM FINDINGS: Lungs: Unremarkable. No consolidation. Pleural spaces: Unremarkable. No pleural effusion. No pneumothorax. Heart/Mediastinum: Unremarkable. No cardiomegaly. Bones/joints: Unremarkable. XR/XR chest 1V portable [id number] IMPRESSION: No acute findings.
[2023-01-11 17:22] VITALS: BP 144/52; PULSE 58; RESP 17; TEMP 36.6; O2SAT 94
--- NOTE | 2023-01-11 17:22 | W.ED.ABDPA2 ---
HPI - Abdominal Pain General: Chief Complaint: Abdominal Pain Stated Complaint: Upper Abd pain Time Seen by Provider: 01/11/23 17:14 History of Present Illness: 57-year-old female comes in today with multiple complaints consisting of midepigastric pain, shortness of breath, and back pain since . Patient appears nontoxic. Patient has a history of gallbladder removal. Patient also has a history of congestive heart failure, hypertension, intellectual disability, GERD, hyperlipidemia, allergic rhinitis, hypothyroidism, and COPD. 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 COPD (chronic obstructive pulmonary disease) Diastolic CHF Diastolic heart failure Emphysema, unspecified Essential (primary) hypertension GERD (gastroesophageal reflux disease) Hypothyroidism (acquired) Learning disability Lower extremity edema Moderate aortic regurgitation Pain of hand Seizure disorder SVT (supraventricular tachycardia) Systolic murmur Thyroid function study abnormality Venous stasis Surgical History H/O esophagogastroduodenoscopy 03/19/2019: Normal H/O thyroidectomy History of carpal tunnel surgery History of colonoscopy 03/19/2019: Normal repeat in 10 years Hx of section Family History Unknown No problems noted. Other Adopted Social History Smoking and tobacco/nicotine status: former use of tobacco/nicotine Quit status (tobacco/nicotine): has quit using Year quit tobacco: 2019 - 1-5 ciggs/day Alcohol intake: never Substance/Drug Use: never Lives independently: Yes Household members: none Housing: Apartment Current occupational status: disabled Do you think of yourself as: Straight/Heterosexual Current gender identity: Female Physical Exam Const: COMMON NORMALS: alert HENMT: COMMON NORMALS: normocephalic HEAD & SCALP: normocephalic MOUTH: Normal oral and palatal mucosa present Neck/C-Spine: COMMON NORMALS: full ROM Resp: COMMON NORMALS: normal respiratory effort AUSCULTATION: diminished lung sounds Cardio: COMMON NORMALS: regular rate and regular rhythm RATE: regular rate RHYTHM: regular rhythm GI: COMMON NORMALS: Soft to palpation AUSCULTATION: Yes normoactive bowel sounds PALPATION: Yes Soft to palpation and Yes Tenderness to palpation present (GI) (Midepigastric) : BLADDER/KIDNEY EXAM: Yes CVA tenderness on the left Back/Pelvis: GENERAL BACK: Yes CVA tenderness Extremity: NARRATIVE EXTREMITY EXAM: Bilateral lower extremity pedal edema Neuro: SENSORIUM/ORIENTATION: Yes alert Skin: COMMON NORMALS: turgor normal GENERAL SKIN EXAM: turgor normal Course Vital Signs: Vital signs: Vital Signs Temperature 97.8 F 01/11/23 17:22 Pulse Rate 61 01/11/23 18:05 Respiratory Rate 15 01/11/23 18:58 Blood Pressure 131/75 01/11/23 18:05 Pulse Oximetry 96 01/11/23 19:38 Oxygen Delivery Me thod Room Air 01/11/23 19:38 MDM - Abdominal Pain Medical Decision Making Patient presents today with complaints of mid epigastric discomfort/pain, increased shortness of breath, and back pain. On exam patient has some mid epigastric tenderness with deep palpation, muscle tenderness in the left mid to low back, and diminished lung sounds. Vital signs are normal. Differential diagnosis includes but not limited to exacerbation of CHF, GERD, malingering, muscle strains, pancreatitis. Laboratory values were unremarkable. No changes were noted in the troponin at baseline to 2-hour cecelia. EKG was unremarkable. Chest x-ray was normal. Patient was medicated with 4 mg of morphine IM and 10 mg of Reglan with improvement of nausea but minimal improvement of abdominal discomfort. I recommended patient follow-up with primary care for further evaluation and to continue routine medications as directed. I believe this may be secondary to patient's GERD and reflux disease and she may need to be further evaluated for recommendations of other medications. Patient reported understanding and agreed to plan. Patient was stable and discharged to home. Lab Data 01/11/23 19:06 01/11/23 17:48 Labs/Radiology: Radiology Impressions Chest X-Ray 01/11/23 17:18 IMPRESSION: No acute findings. Laboratory Results WBC 7.65 10^3/uL (3.29-11.43) 01/11/23 19:06 Corrected WBC Cancelled 01/11/23 17:48 RBC 4.23 10^6/uL (3.85-5.65) 01/11/23 19:06 Hgb 12.00 g/dL (11.27-16.99) 01/11/23 19:06 Hct 40.1 % (36-47) 01/11/23 19:06 MCV 94.8 fl (85-98) 01/11/23 19:06 MCH 28.4 pg (27-33) 01/11/23 19:06 MCHC 29.9 g/dL (30-55) L 01/11/23 19:06 RDW 13.5 % (12.1-15.1) 01/11/23 19:06 Plt Count 229 10^3/cmm (157-399) 01/11/23 19:06 MPV 10.4 fL (7.4-10.4) 01/11/23 19:06 Gran % Cancelled 01/11/23 17:48 Neut % (Auto) 43.9 % 01/11/23 19:06 Lymph % (Auto) 40.5 % 01/11/23 19:06 [place] % (Auto) 10.6 % 01/11/23 19:06 Eos % (Auto) 3.8 % 01/11/23 19:06 Baso % (Auto) 0.9 % 01/11/23 19:06 Neut # (Auto) 3.36 10^3/uL (1.8-7.7) 01/11/23 19:06 Lymph # (Auto) 3.1 10^3/uL (0.8-4.8) 01/11/23 19:06 [place] # (Auto) 0.8 10^3/uL (0.2-0.9) 01/11/23 19:06 Eos # (Auto) 0.3 10^3/uL (0.0-0.8) 01/11/23 19:06 Baso # (Auto) 0.1 10^3/uL (0.0-0.1) 01/11/23 19:06 Absolute Gran (auto) Cancelled 01/11/23 17:48 Nucleated RBC % (auto) 0 % 01/11/23 19:06 Nucleated RBCs # 0.0 /100WBC 01/11/23 19:06 Sodium 142 mmol/L (136-145) 01/11/23 17:48 Potassium 3.6 mmol/L (3.5-5.1) 01/11/23 17:48 Chloride 100 mmol/L (98-107) 01/11/23 17:48 Carbon Dioxide 33 mmol/L (22-29) H 01/11/23 17:48 Anion Gap 12.6 (5-19) 01/11/23 17:48 BUN 17 mg/dL (6-20) 01/11/23 17:48 Creatinine 1.0 mg/dL (0.5-0.9) H 01/11/23 17:48 GFR Calculation 56.9 mL/min (90-130) L 01/11/23 17:48 Glucose 76 mg/dL (65-115) 01/11/23 17:48 Calculated Osmolality 294 mOsm/kg (285-295) 01/11/23 17:48 Calcium 8.7 mg/dL (8.5-10.5) 01/11/23 17:48 Total Bilirubin 0.9 mg/dL (0.15-1.2) 01/11/23 17:48 AST 15 U/L (0-32) 01/11/23 17:48 ALT 10 U/L (0-33) 01/11/23 17:48 Alkaline Phosphatase 96 U/L (35-105) 01/11/23 17:48 Troponin T Baseline 22 ng/L (0-10) H 01/11/23 17:48 Troponin T 120 Minute 22.79 ng/L (0-10) H 01/11/23 19:14 Delta Troponin T 0.79 ABS# (0-10) 01/11/23 19:14 NT-Pro-B Natriuret Pep 183 pg/mL (0-125) H 01/11/23 17:48 Total Protein 6.5 g/dL (6.6-8.7) L 01/11/23 17:48 Albumin 3.8 g/dL (3.5-5.2) 01/11/23 17:48 Globulin 2.7 g/dL (1.3-4.6) 01/11/23 17:48 Lipase 66 U/L (13-60) H 01/11/23 17:48 Urine Color Yellow (Yellow) 01/11/23 18:25 Urine Appearance Clear (CLEAR) 01/11/23 18:25 Urine pH 5 (5-7) 01/11/23 18:25 Ur Specific [place] 1.020 (1.005-1.030) 01/11/23 18:25 Urine Protein Neg (Negative) 01/11/23 18:25 Urine Glucose (UA) Norm (Normal) 01/11/23 18:25 Urine Ketones Negative (Negative) 01/11/23 18:25 Urine Blood Neg (Negative) 01/11/23 18:25 Urine Nitrate Negative (Negative) 01/11/23 18:25 Urine Bilirubin Neg (Negative) 01/11/23 18:25 Urine Urobilinogen Norm mg/dL (Negative) 01/11/23 18:25 Ur Leukocyte Esterase Negative (Negative) 01/11/23 18:25 All radiology interpretation(s) finalized by discharge EKG Data EKG 1: EKG interpretation date: 01/11/23 EKG interpretation time: 17:39 Interpretation: EKG shows a sinus rhythm with a regular rate at [address] elevation is noted. Significant amount of artifact is noted on exam. No prior exam was available for immediate comparison. Computer generated interpretation: Sinus rhythm, possible right ventricular conduction delay, lateral myocardial infarction of indeterminate age, abnormal EKG, unconfirmed report. Discharge Plan Discharge Patient Disposition: Home Clinical Impression: Abdominal pain Qualifiers: Abdominal location: epigastric Qualified Code(s): R10.13 - Epigastric pain GERD (gastroesophageal reflux disease) Qualifiers: Esophagitis presence: esophagitis presence not specified Qualified Code(s): K21.9 - Gastro-esophageal reflux disease without esophagitis Condition: Stable Prescriptions: No Action levetiracetam 250 mg tablet 250 mg PO BID aspirin [Adult Aspirin Regimen] 81 mg tablet,delayed release (DR/EC) 81 mg PO QAM pantoprazole [Protonix] 40 mg tablet,delayed release (DR/EC) 40 mg PO QAM albuterol sulfate [ProAir HFA] 90 mcg/actuation HFA aerosol inhaler 2 puff INHALATION Q6H PRN (Reason: Shortness Of Breath) atorvastatin 20 mg tablet 20 mg PO BEDTIME budesonide 0.5 mg/2 mL suspension for nebulization 0.5 mg inhalation BID PRN (Reason: Shortness Of Breath Or Wheezing) magnesium oxide 500 mg tablet 500 mg PO DAILY acetaminophen 500 mg capsule 500 mg PO Q6H PRN (Reason: Pain) potassium chloride 20 mEq tablet extended release 20 meq PO DAILY Qty: 90 3RF bumetanide 2 mg tablet 2 mg PO DAILY Qty: 90 3RF Rx Instructions: 09/07/22 Decrease to 2mg once daily metoprolol succinate 50 mg tablet extended release 24 hr 75 mg PO BID Qty: 180 3RF hydroxyzine HCl 10 mg Tablet 10 mg PO TID PRN (Reason: Anxiety) spironolactone 25 mg tablet 25 mg PO DAILY trazodone 50 mg tablet 100 mg PO BEDTIME duloxetine 60 mg capsule,delayed release(DR/EC) 60 mg PO DAILY cetirizine 10 mg tablet 10 mg PO DAILY ipratropium-albuterol 0.5 mg-3 mg(2.5 mg base)/3 mL solution for nebulization 3 ml inhalation Q6H PRN (Reason: unknown) levothyroxine 125 mcg tablet 125 mcg PO DAILY gabapentin 300 mg capsule See Rx Instructions .ROUTE .COMPLEX Qty: 18 0RF Rx Instructions: take one cap today. Take one cap twice a day tomorrow, then begin taking one cap three times a day until gone prednisone 20 mg tablet 40 mg PO DAILY 5 Days Qty: 0 0RF Discharge Orders: Discharge ED (Routine); Ordered 01/11/23 Ordered By: Raul Troncoso Referrals: Akila Rivera DO [Primary Care Provider] - Discharge Diet: Usual diet Discharge Activity: Increase activity as tolerated Patient Instructions: Abdominal Pain (ED) Activity Restrictions/Additional Instructions: Home and rest. Follow-up with primary care for further evaluation and treatment. Primary care may want you to follow-up with the surgeon for endoscopy for evaluation of your reflux and hiatal hernia. Return to emergency department for high fever, blood in vomit or stool, or new concerns. Coding Level of Care Code ED Breaster for Dc Serrato
--- NOTE | 2023-01-11 17:28 | ECG_ITS ---
[facility] Test Date: 2023-01-11 Pat Name: Crystal Pierre Department: Room: Gender: Female Nut Feeder: : 1965 Requested By: Raul Burroughs Order Number: [id number] Clemencia MD: Joseph Wilson M.D. Measurements Intervals [place] Rate: 62 P: 70 [place]: 149 QRS: 59 QRSD: 125 T: 75 QT: 453 QTc: 460 Interpretive Statements SINUS RHYTHM POSSIBLE RIGHT VENTRICULAR CONDUCTION DELAY [RSR (QR) IN V1/V2] LATERAL MYOCARDIAL INFARCTION , OF INDETERMINATE AGE [40+ ms Q WAVE AND/OR ST/T ABNORMALITY IN I/aVL/V5/V6] Compared to ECG 12/15/2022 21:32:58 Myocardial infarct finding now present Sinus bradycardia no longer present Electronically Signed On 01-12-2023 6:02:15 LEDGE MAN by Joseph Wilson M.D. [email or web address]/store/[id number]
[2023-01-11 18:05] VITALS: BP 131/75; PULSE 61; RESP 14; O2SAT 95
[2023-01-11 18:37] LABS: Troponin(5th) Baseline 22 ng/L (0-10)
[2023-01-11 18:44] LABS: Add Urine Microscopic? NO; Charge for UA Resulting for Rev
[2023-01-11 18:47] LABS: Alanine Aminotransferase 10 U/L (0-33); Albumin Level 3.8 g/dL (3.5-5.2); Alkaline Phosphatase 96 U/L (35-105); Anion Gap 12.6 (5-19); Aspartate Amino Transferase 15 U/L (0-32); Blood Urea Nitrogen 17 mg/dL (6-20); Calcium 8.7 mg/dL (8.5-10.5); Carbon Dioxide 33 mmol/L (22-29); Chloride 100 mmol/L (98-107); Globulin 2.7 g/dL (1.3-4.6); Glomerular Filtration Rate 56.9 mL/min (90-130); Glucose 76 mg/dL (65-115); Lipase 66 U/L (13-60); NT Pro B Type Natriuretic Pept 183 pg/mL (0-125); Osmolality Calculated 294 mOsm/kg (285-295); Potassium 3.6 mmol/L (3.5-5.1); Sodium 142 mmol/L (136-145); Total Bilirubin 0.9 mg/dL (0.15-1.2); Total Protein 6.5 g/dL (6.6-8.7)
[2023-01-11 18:50] LABS: Bilirubin Urine Neg (Negative); Blood Urine Neg (Negative); Glucose Urine UA Norm (Normal); Ketones Urine Negative (Negative); Leukocyte Esterase Urine Negative (Negative); Nitrate Urine Negative (Negative); Protein Urine Neg (Negative); Urine Appearance Clear (CLEAR); Urine Color Yellow (Yellow); Urobilinogen Urine Norm (Negative); pH Urine 5 (5-7)
[2023-01-11 18:58] VITALS: RESP 15; O2SAT 96
[2023-01-11] MEDS: morphine 4 mg/mL SDV 1 mL IM (18:58)
[2023-01-11] MEDS: metoclopramide 5 mg/mL SDV 2 mL 10 MG IM (18:59)
[2023-01-11 19:14] LABS: Basophils # 0.1 10^3/uL (0.0-0.1); Basophils % 0.9 %; Eosinophils # 0.3 10^3/uL (0.0-0.8); Eosinophils % 3.8 %; Hematocrit 40.1 % (36-47); Lymphocytes # 3.1 10^3/uL (0.8-4.8); Lymphocytes % 40.5 %; Mean Corpuscular HGB Conc 29.9 g/dL (30-55); Mean Corpuscular Hemoglobin 28.4 pg (27-33); Mean Corpuscular Volume 94.8 fl (85-98); Mean Platelet Volume 10.4 fL (7.4-10.4); Monocytes # 0.8 10^3/uL (0.2-0.9); Monocytes % 10.6 %; Neutrophils # 3.36 10^3/uL (1.8-7.7); Neutrophils % 43.9 %; Nucleated Red Blood Cells % 0 %; Platelet Count 229 10^3/cmm (157-399); Red Blood Count 4.23 10^6/uL (3.85-5.65); Red Cell Distribution Width 13.5 % (12.1-15.1); White Blood Count 7.65 10^3/uL (3.29-11.43)
[2023-01-11 19:36] LABS: Troponin 5 2HR 22.79 ng/L (0-10); Troponin 5 2HR Delta 0.79 ABS# (0-10)
[2023-01-11 19:38] VITALS: O2SAT 96
[2023-01-11 20:22] VITALS: O2SAT 96
== END 2023-01-11 20:23 | disposition home or self-care (01) ==
PROVIDERS: Emergency Provider Nurse Practitioner Family; PCP Family Medicine
DX: K21.9 Gastro-esophageal reflux disease without esophagitis (principal); Z79.82 Long term (current) use of aspirin; Z87.891 Personal history of nicotine dependence; J44.9 Chronic obstructive pulmonary disease, unspecified; I11.0 Hypertensive heart disease with heart failure; I50.30 Unspecified diastolic (congestive) heart failure
CPT/HCPCS: 36415; 71045; 80053; 81003; 83690; 83880; 84484; 85025; 93005; 96372; 99285; J2270; J2765

== ENCOUNTER 2023-02-14 11:52 | Emergency (ER) | payer MEDICARE, MEDICAID, SELFPAY ==
[2023-02-14 11:55] VITALS: PULSE 61; RESP 18; O2SAT 97
[2023-02-14 12:23] LABS: Basophils # 0.1 10^3/uL (0.0-0.1); Basophils % 0.9 %; Eosinophils # 0.3 10^3/uL (0.0-0.8); Eosinophils % 3.7 %; Hematocrit 44.2 % (36-47); Lymphocytes % 36.6 %; Mean Corpuscular HGB Conc 30.8 g/dL (30-55); Mean Corpuscular Volume 91.1 fl (85-98); Mean Platelet Volume 9.9 fL (7.4-10.4); Monocytes # 0.7 10^3/uL (0.2-0.9); Monocytes % 8.7 %; Neutrophils # 4.06 10^3/uL (1.8-7.7); Neutrophils % 49.9 %; Nucleated Red Blood Cells % 0 %; Platelet Count 319 10^3/cmm (157-399); Red Blood Count 4.85 10^6/uL (3.85-5.65); Red Cell Distribution Width 13.7 % (12.1-15.1); White Blood Count 8.14 10^3/uL (3.29-11.43)
[2023-02-14 12:33] LABS: Alanine Aminotransferase 10 U/L (0-33); Albumin Level 4.3 g/dL (3.5-5.2); Alkaline Phosphatase 112 U/L (35-105); Anion Gap 12.2 (5-19); Aspartate Amino Transferase 16 U/L (0-32); Blood Urea Nitrogen 19 mg/dL (6-20); Calcium 9.9 mg/dL (8.5-10.5); Carbon Dioxide 34 mmol/L (22-29); Chloride 98 mmol/L (98-107); Globulin 3.3 g/dL (1.3-4.6); Glomerular Filtration Rate 64.3 mL/min (90-130); Glucose 119 mg/dL (65-115); Osmolality Calculated 293 mOsm/kg (285-295); Potassium 4.2 mmol/L (3.5-5.1); Sodium 140 mmol/L (136-145); Total Protein 7.6 g/dL (6.6-8.7)
--- NOTE | 2023-02-14 12:45 | ED_ITS ---
HPI - Abdominal Pain 2 General: Chief Complaint: Abdominal Pain Stated Complaint: Headache x 2 days Time Seen by Provider: 02/14/23 11:53 Source: patient Mode of arrival: ambulatory History of Present Illness: 49-year-old female who presents emergenc y room with complaints of abdominal discomfort. She had a couple episodes of vomiting subsequently with a headache. Of vomiting as some streaks of blood. No martha red blood she has had some dysuria and foul-smelling urine as well. No recent falls or trauma. She does have some mild dysuria and urgency. MD elicited complaint: abdominal pain Pertinent past history: none Location: Periumbilical Quality: cramping Exacerbating factors: nothing Relieving factors: nothing Associated Symptoms: Reports bloating, GI cramping, hematemesis (Blood-tinged vomitus with streaks no martha blood), nausea and vomiting; Denies anorexia, belching, change in bowel habits, change in stool character, chills, coffee ground emesis, constipation, diarrhea, dyspepsia, dysuria, excessive flatus, fever(s), heartburn, hematochezia, hematuria, fecal incontinence, loose stools, melena, poor appetite and syncope Review of Systems 2 Const: Denies: fever(s) or chills Card: Denies: chest pain or syncope Resp: Denies: dyspnea GI: Reports: abdominal pain, nausea, vomiting, hematemesis (Blood-tinged vomitus with streaks no martha blood), bloating and GI cramping; Denies: coffee ground emesis, heartburn, diarrhea, constipation, belching, excessive flatus, fecal incontinence, change in bowel habits, change in stool character, hematochezia or melena : Denies: dysuria, urinary frequency, urinary urgency or hematuria Musc: Denies: neck pain or back pain Skin/Breast: Denies: rash PFSH ED 2 PFSH: Medical History Diastolic heart failure Chest pain Lower extremity edema Atypical chest pain Cervical radiculopathy Pain of hand Diastolic CHF 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 Other Adopted Social History Smoking and tobacco/nicotine status: former use of tobacco/nicotine Quit status (tobacco/nicotine): has quit using Year quit tobacco: 2018 - 1-5 ciggs/day Alcohol intake: never Substance/Drug Use: never Lives independently: Yes Household members: none Housing: Apartment Current occupational status: disabled Do you think of yourself as: Straight/Heterosexual Current gender identity: Female Physical Exam 2 Const: COMMON NORMALS: no acute distress GENERAL APPEARANCE: cooperative and comfortable ORIENTATION/CONSCIOUSNESS: Yes awake, Yes oriented to person, Yes oriented to place and Yes oriented to time HENMT: COMMON NORMALS: normocephalic, atraumatic and hearing grossly normal bilaterally HEAD & SCALP: normocephalic and atraumatic Resp: COMMON NORMALS: normal respiratory effort, No retractions, No use of accessory muscles and clear to auscultation bilaterally AUSCULTATION: clear to auscultation bilaterally Cardio: COMMON NORMALS: regular rate, regular rhythm and No murmurs present (Cardio) RATE: regular rate RHYTHM: regular rhythm GI: COMMON NORMALS: Soft to palpation and No hepatosplenomegaly present A USCULTATION: Yes normoactive bowel sounds PALPATION: Yes Soft to palpation, No Tenderness to palpation present (GI), No Guarding due to palpation present (GI) and Yes No hepatosplenomegaly present Extremity: COMMON NORMALS: normal to inspection, capillary refill normal, no clubbing, cyanosis or edema, no calf tenderness and no pedal edema Neuro: SENSORIUM/ORIENTATION: Yes oriented to person, Yes oriented to place and Yes oriented to time Skin: COMMON NORMALS: no rashes or lesions noted GENERAL SKIN EXAM: no rashes or lesions noted Course 2 Vital Signs: Vital signs: Vital Signs Pulse Rate 61 02/14/23 11:55 Respiratory Rate 18 02/14/23 11:55 Pulse Oximetry 97 02/14/23 11:55 Oxygen Delivery Me thod Room Air 02/14/23 11:55 MDM - Abdominal Pain Medical Decision Making Labs and imaging reviewed benign abdominal exam no leukocytosis liver functions very staying slightly elevated alkaline phosphatase lipase is normal patient has no further symptoms will discharge home return if has further problems. Differential Diagnosis Likely abdominal pain, acute appendicitis, calculus of kidney, diverticulitis, gastroenteritis and pancreatitis Medical Records I reviewed the patient's medical records. Lab Data I reviewed the patient's lab results. 02/14/23 12:09 02/14/23 12:09 Labs/Radiology: Laboratory Results WBC 8.14 10^3/uL (3.29-11.43) 02/14/23 12:09 RBC 4.85 10^6/uL (3.85-5.65) 02/14/23 12:09 Hgb 13.60 g/dL (11.27-16.99) 02/14/23 12:09 Hct 44.2 % (36-47) 02/14/23 12:09 MCV 91.1 fl (85-98) 02/14/23 12:09 MCH 28.0 pg (27-33) 02/14/23 12:09 MCHC 30.8 g/dL (30-55) 02/14/23 12:09 RDW 13.7 % (12.1-15.1) 02/14/23 12:09 Plt Count 319 10^3/cmm (157-399) 02/14/23 12:09 MPV 9.9 fL (7.4-10.4) 02/14/23 12:09 Neut % (Auto) 49.9 % 02/14/23 12:09 Lymph % (Auto) 36.6 % 02/14/23 12:09 [place] % (Auto) 8.7 % 02/14/23 12:09 Eos % (Auto) 3.7 % 02/14/23 12:09 Baso % (Auto) 0.9 % 02/14/23 12:09 Neut # (Auto) 4.06 10^3/uL (1.8-7.7) 02/14/23 12:09 Lymph # (Auto) 3.0 10^3/uL (0.8-4.8) 02/14/23 12:09 [place] # (Auto) 0.7 10^3/uL (0.2-0.9) 02/14/23 12:09 Eos # (Auto) 0.3 10^3/uL (0.0-0.8) 02/14/23 12:09 Baso # (Auto) 0.1 10^3/uL (0.0-0.1) 02/14/23 12:09 Nucleated RBC % (auto) 0 % 02/14/23 12:09 Nucleated RBCs # 0.0 /100WBC 02/14/23 12:09 Sodium 140 mmol/L (136-145) 02/14/23 12:09 Potassium 4.2 mmol/L (3.5-5.1) 02/14/23 12:09 Chloride 98 mmol/L (98-107) 02/14/23 12:09 Carbon Dioxide 34 mmol/L (22-29) H 02/14/23 12:09 Anion Gap 12.2 (5-19) 02/14/23 12:09 BUN 19 mg/dL (6-20) 02/14/23 12:09 Creatinine 0.9 mg/dL (0.5-0.9) 02/14/23 12:09 GFR Calculation 64.3 mL/min (90-130) L 02/14/23 12:09 Glucose 119 mg/dL (65-115) H 02/14/23 12:09 Calculated Osmolality 293 mOsm/kg (285-295) 02/14/23 12:09 Calcium 9.9 mg/dL (8.5-10.5) 02/14/23 12:09 Total Bilirubin 1.0 mg/dL (0.15-1.2) 02/14/23 12:09 AST 16 U/L (0-32) 02/14/23 12:09 ALT 10 U/L (0-33) 02/14/23 12:09 Alkaline Phosphatase 112 U/L (35-105) H 02/14/23 12:09 Total Protein 7.6 g/dL (6.6-8.7) 02/14/23 12:09 Albumin 4.3 g/dL (3.5-5.2) 02/14/23 12:09 Globulin 3.3 g/dL (1.3-4.6) 02/14/23 12:09 Lipase 44 U/L (13-60) 02/14/23 12:09 Urine Color Light yellow (Yellow) 02/14/23 11:45 Urine Appearance Clear (CLEAR) 02/14/23 11:45 Urine pH 7 (5-7) 02/14/23 11:45 Ur Specific [place] 1.005 (1.005-1.030) 02/14/23 11:45 Urine Protein Neg (Negative) 02/14/23 11:45 Urine Glucose (UA) Norm (Normal) 02/14/23 11:45 Urine Ketones Negative (Negative) 02/14/23 11:45 Urine Blood Neg (Negative) 02/14/23 11:45 Urine Nitrate Negative (Negative) 02/14/23 11:45 Urine Bilirubin Neg (Negative) 02/14/23 11:45 Urine Urobilinogen Norm mg/dL (Negative) 02/14/23 11:45 Ur Leukocyte Esterase Negative (Negative) 02/14/23 11:45 All radiology interpretation(s) finalized by discharge Discharge Plan Discharge Patient Disposition: Home Clinical Impression: Abdominal pain GERD (gastroesophageal reflux disease) Qualifiers: Esophagitis presence: esophagitis presence not specified Qualified Code(s): K 21.9 - Gastro-esophageal reflux disease without esophagitis Clinical Impression: (Ruled Out): Pancreatitis Condition: Stable Prescriptions: New ondansetron HCl 4 mg tablet 4 mg PO Q6H PRN (Reason: nausea and vomiting) Qty: 20 0RF Protonix 40 mg tablet,delayed release (DR/EC) 40 mg PO BID 30 Days Qty: 40 0RF Rx Instructions: Twice daily x 10 days then daily No Action levetiracetam 250 mg tablet 250 mg PO BID aspirin [Adult Aspirin Regimen] 81 mg tablet,delayed release (DR/EC) 81 mg PO QAM pantoprazole [Protonix] 40 mg tablet,delayed release (DR/EC) 40 mg PO QAM albuterol sulfate [ProAir HFA] 90 mcg/actuation HFA aerosol inhaler 2 puff INHALATION Q6H PRN (Reason: Shortness Of Breath) atorvastatin 20 mg tablet 20 mg PO BEDTIME budesonide 0.5 mg/2 mL suspension for nebulization 0.5 mg inhalation BID PRN (Reason: Shortness Of Breath Or Wheezing) magnesium oxide 500 mg tablet 500 mg PO DAILY acetaminophen 500 mg capsule 500 mg PO Q6H PRN (Reason: Pain) potassium chloride 20 mEq tablet extended release 20 meq PO DAILY Qty: 90 3RF bumetanide 2 mg tablet 2 mg PO DAILY Qty: 90 3RF Rx Instructions: 09/07/22 Decrease to 2mg once daily metoprolol succinate 50 mg tablet extended release 24 hr 75 mg PO BID Qty: 180 3RF hydroxyzine HCl 10 mg Tablet 10 mg PO TID PRN (Reason: Anxiety) spironolactone 25 mg tablet 25 mg PO DAILY trazodone 50 mg tablet 100 mg PO BEDTIME duloxetine 60 mg capsule,delayed release(DR/EC) 60 mg PO DAILY cetirizine 10 mg tablet 10 mg PO DAILY ipratropium-albuterol 0.5 mg-3 mg(2.5 mg base)/3 mL solution for nebulization 3 ml inhalation Q6H PRN (Reason: unknown) levothyroxine 125 mcg tablet 125 mcg PO DAILY gabapentin 300 mg capsule See Rx Instructions .ROUTE .COMPLEX Qty: 18 0RF Rx Instructions: take one cap today. Take one cap twice a day tomorrow, then begin taking one cap three times a day until gone prednisone 20 mg tablet 40 mg PO DAILY 5 Days Qty: 0 0RF Discharge Orders: Discharge ED (Routine); Ordered 02/14/23 Ordered By: Joshua Hale Referrals: Akila Rivera, [Primary Care Provider] - Discharge Activity: Increase activity as tolerated Patient Instructions: Clear Liquid Diet (ED), Diet for Stomach Ulcers and Gastritis (ED), Abdominal Pain (ED), Opioid Safety, Pain Management Activity Restrictions/Additional Instructions: Thank you for choosing [facility] for your healthcare needs today. Please realize this is an emergency room and that we are providing you with a medical screening exam and this may not be complete and all inclusive of all the testing and or work up that you may need to determine your ailment or severity of your illness. It is very important that you follow up as instructed or that you return to the Emergency Department should you have concerns or if your condition changes or worsens in any way. Clinical diet for 24 to 48 hours and advance as tolerated increase your pantoprazole to 1 pill twice daily for 10 days then once daily. Use ondansetron as needed for nausea or vomiting Coding Level of Care Code ED Early Childhood Special Educator for Dc Serrato
[2023-02-14 13:06] LABS: Lipase 44 U/L (13-60)
[2023-02-14 15:01] LABS: Add Urine Microscopic? NO; Charge for UA Resulting for Rev
[2023-02-14 15:07] LABS: Bilirubin Urine Neg (Negative); Blood Urine Neg (Negative); Glucose Urine UA Norm (Normal); Ketones Urine Negative (Negative); Leukocyte Esterase Urine Negative (Negative); Nitrate Urine Negative (Negative); Protein Urine Neg (Negative); Specific Gravity, Urine 1.005 (1.005-1.030); Urine Appearance Clear (CLEAR); Urine Color Light yellow (Yellow); Urobilinogen Urine Norm (Negative); pH Urine 7 (5-7)
== END 2023-02-14 15:54 | disposition home or self-care (01) ==
PROVIDERS: Emergency Provider Family Medicine; PCP Family Medicine
DX: K21.9 Gastro-esophageal reflux disease without esophagitis (principal); Z79.82 Long term (current) use of aspirin; Z87.891 Personal history of nicotine dependence; I11.0 Hypertensive heart disease with heart failure; I50.9 Heart failure, unspecified; J44.9 Chronic obstructive pulmonary disease, unspecified
CPT/HCPCS: 36415; 80053; 81003; 83690; 85025; 99283

== ENCOUNTER 2023-03-15 13:37 | Emergency (ER) | payer MEDICARE, MEDICAID, SELFPAY ==
[2023-03-15 13:39] VITALS: BP 133/78; PULSE 65; RESP 16; TEMP 37.3; O2SAT 99; BMI 28.1
--- NOTE | 2023-03-15 13:41 | ECG_ITS ---
[facility] Test Date: 2023-03-15 Pat Name: Crystal Pierre Department: Room: Gender: Female Fruit Washer: : 1965 Requested By: Giuseppe Lopez Order Number: [id number] Clemencia MD: Enrique Haro M.D. Measurements Intervals [place] Rate: 67 P: 62 [place]: 132 QRS: 54 QRSD: 101 T: 55 QT: 408 QTc: 434 Interpretive Statements SINUS RHYTHM POSSIBLE RIGHT VENTRICULAR CONDUCTION DELAY [RSR (QR) IN V1/V2] SEPTAL MYOCARDIAL INFARCTION , OF INDETERMINATE AGE [40+ ms Q WAVE IN V1/V2] Compared to ECG 01/11/2023 17:28:24 No significant changes Electronically Signed On 03-15-2023 16:30:13 RECRUITING SPECIALIST by Enrique Haro M.D. [email or web address] community hospitalCotton & Reed Distilleryfirelands regional [facility].[employer]/store/NU/[id number] f
--- NOTE | 2023-03-15 13:56 | XRR_ITS ---
PROCEDURE INFORMATION: Exam: XR Chest Exam date and time: 03/15/2023 2:08 PM Age: 57 years old Clinical indication: Angina and shortness of breath; Additional info: Cp TECHNIQUE: Imaging protocol: Radiologic exam of the chest. Views: 1 view. COMPARISON: CR (CHEST, ) 01/11/2023 5:22 PM FINDINGS: Lungs: No consolidation. Pleural spaces: No pleural effusion. No pneumothorax. Heart/Mediastinum: No cardiomegaly. Bones/joints: No acute findings. XR/XR chest 1V portable [id number] IMPRESSION: No acute findings.
--- NOTE | 2023-03-15 13:57 | ED_ITS ---
HPI - Chest Pain 2 General: Chief Complaint: Chest Pain Stated Complaint: CHEST PAIN Time Seen by Provider: 03/15/23 13:38 Source: patient Mode of arrival: EMS Limitations: no limitations History of Present Illness: This patient was transported by EMS from her assisted living domicile. She states she has had progressive sore throat of the past couple of days as well as cough which has been somewhat productive of sticky yellow sputum some days and some bloody sputum other days. She states she also has chest pain associated with coughing but no sustained chest pain between her episodes of coughing. She is unknown regarding her exposure to infectious disease but again is in a assisted living facility. She states she has had COVID-19 vaccine, influenza vaccine, possibly pneumonia vaccine. No recent travel. She has had subjective fevers. She does have a history of oxygen dependent COPD and also wears CPAP at night. He also relates that she has a history of congestive heart failure. She states she has been eating fairly normally without any vomiting or diarrhea. Associated symptoms: Reports fever(s); Deny abdominal pain, nausea, palpitations or vomiting Review of Systems 2 Const: Reports: fever(s); Denies: chills Eyes: Denies: change in vision ENMT: Reports: throat pain and odynophagia; Denies: nasal discharge or nasal congestion Card: Reports: chest pain; Denies: palpitations or irregular heart rhythm Resp: Reports: productive cough and wheezing GI: Denies: abdominal pain, nausea or vomiting : Denies: flank pain, difficulty voiding, dysuria or urinary frequency Musc: Reports: extremity swelling; Denies: neck pain, back pain or extremity pain Skin/Breast: Denies: rash or pruritus Neuro: Denies: headache(s), numbness in extremities or weakness in extremities PFSH ED 2 PFSH: Medical History Diastolic heart failure Chest pain Lower extremity edema Atypical chest pain Cervical radiculopathy Pain of hand Diastolic CHF 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 Other Adopted Social History Smoking and tobacco/nicotine status: former use of tobacco/nicotine Quit status (tobacco/nicotine): has quit using Year quit tobacco: 2018 - 1-5 ciggs/day Alcohol intake: never Substance/Drug Use: never Lives independently: Yes Household members: none Housing: Apartment Current occupational status: disabled Do you think of yourself as: Straight/Heterosexual Current gender identity: Female Physical Exam 2 Narrative: EXAM NARRATIVE: Patient is alert makes good eye contact answers questions appropriately. Appears to be comfortable Const: COMMON NORMALS: no acute distress and patient oriented x3 GENERAL APPEARANCE: cooperative and comfortable NUTRITIONAL APPEARANCE: overweight ORIENTATION/CONSCIOUSNESS: Yes awake HENMT: COMMON NORMALS: normocephalic, atraumatic and Normal nasal mucous membranes and turbinates present HEAD & SCALP: normocephalic and atraumatic FACE & SINUS: normal facial exam NOSE: Normal nasal mucous membranes and turbinates present THROAT: uvula midline and posterior oropharynx abnormal erythema; no exudates; no peritonsillar mass Eye: COMMON NORMALS: Equal, round and reactive pupils present, EOMs intact bilaterally and conjunctivae normal CONJUNCTIVA: Yes conjunctivae normal P UPIL: Yes Equal, round and reactive pupils present Neck/C-Spine: COMMON NORMALS: full ROM, no lymphadenopathy, supple and no JVD Chest: COMMONS NORMALS: normal inspection of the chest Resp: COMMON NORMALS: normal respiratory effort and No retractions A USCULTATION: diminished lung sounds Cardio: COMMON NORMALS: no JVD, regular rate, regular rhythm, No murmurs present (Cardio) and Peripheral pulses 2+ throughout RATE: regular rate R HYTHM: regular rhythm PERIPHERAL PULSES: Peripheral pulses 2+ throughout GI: COMMON NORMALS: Soft to palpation INSPECTION: Yes central obesity P ALPATION: Yes Soft to palpation OTHER: Mild tenderness in the epigastrium to palpation. No rebound, guarding, or other peritoneal signs noted. : COMMON NORMALS: Yes no CVA tenderness BLADDER/KIDNEY EXAM: Yes no CVA tenderness Back/Pelvis: COMMON NORMALS: no CVA tenderness, thoracic and lumbar spine normal to inspection, no thoracic nor lumbar tenderness, thoraco-lumbar ROM normal and straight leg raise negative bilaterally Extremity: COMMON NORMALS: normal to inspection, full ROM, capillary refill normal and no calf tenderness NARRATIVE EXTREMITY EXAM: She has some edema to both lower extremities which is associated with hypertrophied dermis with some cobblestoning of the skin. No calf tenderness noted. No erythema of the skin. Neuro: COMMON NORMALS: patient oriented x3, moves all extremities, no focal motor deficits and no sensory deficits noted CRANIAL NERVES: Yes CN normal except as noted Psych: COMMON NORMALS: mental status grossly normal Skin: COMMON NORMALS: no wounds and turgor normal GENERAL SKIN EXAM: turgor normal Course 2 Reevaluation(s): Reevaluation #1: Patient stable doing well with normal vital signs. Her workup is very reassuring. No evidence of to suggest ongoing ischemia or myocardial injury. Chest x-ray is clear. Viral studies for flu and COVID are normal and strep screen is negative. She is drinking fluids well. Not likely represent any ongoing emergency medical condition at this time. She appears to have findings consistent with a viral pharyngitis. Will give her a single dose of dexamethasone to help alleviate some of her symptoms and plan on discharge back to her normal home with return precautions. Time: 16:44 Vital Signs: Vital signs: Vital Signs Temperature 99.1 F 03/15/23 13:39 Pulse Rate 65 03/15/23 13:39 Respiratory Rate 16 03/15/23 13:39 Blood Pressure 133/78 03/15/23 13:39 Pulse Oximetry 99 03/15/23 13:39 Oxygen Delivery Me thod Nasal Cannula 03/15/23 13:39 Oxygen Flow Rate 3 03/15/23 13:39 MDM - Chest Pain Medical Decision Making This patient presented from her normal assisted living facility because of sore throat and other nondescript chest symptoms with a dry nonproductive cough for the past few days. Her past ministry of medical history is notable for oxygen dependent COPD. Clinical exam was unrevealing for any stigmata of serious disease other than she has bilateral brawny edema likely from dependent edema. There is no other concerning findings for infection etc. Workup entailed viral studies to establish possible etiologies strep studies to look for possible strep pharyngitis as well as chest x-ray to evaluate for pneumonia and other pulmonary pathology. Serial troponins and serial electrocardiograms were obtained her initial troponin was slightly over the URL but a repeat troponin was unchanged mitigating against likely ACS or other ongoing myocardial injury. With no evidence of pneumonia, CHF or other concerning findings. Consistent with a viral pharyngitis at this time discussed current findings and return precautions. Stable for discharge. Lab Data I reviewed the patient's lab results. 03/15/23 13:58 03/15/23 13:58 Radiology Impressions Chest X-Ray 03/15/23 13:56 IMPRESSION: No acute findings. Laboratory Results WBC 10.31 10^3/uL (3.29-11.43) 03/15/23 13:58 RBC 4.44 10^6/uL (3.85-5.65) 03/15/23 13:58 Hgb 12.70 g/dL (11.27-16.99) 03/15/23 13:58 Hct 41.1 % (36-47) 03/15/23 13:58 MCV 92.6 fl (85-98) 03/15/23 13:58 MCH 28.6 pg (27-33) 03/15/23 13:58 MCHC 30.9 g/dL (30-55) 03/15/23 13:58 RDW 13.7 % (12.1-15.1) 03/15/23 13:58 Plt Count 290 10^3/cmm (157-399) 03/15/23 13:58 MPV 9.9 fL (7.4-10.4) 03/15/23 13:58 Neut % (Auto) 63.1 % 03/15/23 13:58 Lymph % (Auto) 24.0 % 03/15/23 13:58 [place] % (Auto) 7.9 % 03/15/23 13:58 Eos % (Auto) 3.9 % 03/15/23 13:58 Baso % (Auto) 0.8 % 03/15/23 13:58 Neut # (Auto) 6.52 10^3/uL (1.8-7.7) 03/15/23 13:58 Lymph # (Auto) 2.5 10^3/uL (0.8-4.8) 03/15/23 13:58 [place] # (Auto) 0.8 10^3/uL (0.2-0.9) 03/15/23 13:58 Eos # (Auto) 0.4 10^3/uL (0.0-0.8) 03/15/23 13:58 Baso # (Auto) 0.1 10^3/uL (0.0-0.1) 03/15/23 13:58 Nucleated RBC % (auto) 0 % 03/15/23 13:58 Nucleated RBCs # 0.0 /100WBC 03/15/23 13:58 Sodium 137 mmol/L (136-145) 03/15/23 13:58 Potassium 4.4 mmol/L (3.5-5.1) 03/15/23 13:58 Chloride 93 mmol/L (98-107) L 03/15/23 13:58 Carbon Dioxide 38 mmol/L (22-29) H 03/15/23 13:58 Anion Gap 10.4 (5-19) 03/15/23 13:58 BUN 15 mg/dL (6-20) 03/15/23 13:58 Creatinine 1.0 mg/dL (0.5-0.9) H 03/15/23 13:58 GFR Calculation 56.9 mL/min (90-130) L 03/15/23 13:58 Glucose 113 mg/dL (65-115) 03/15/23 13:58 Calculated Osmolality 286 mOsm/kg (285-295) 03/15/23 13:58 Calcium 8.9 mg/dL (8.5-10.5) 03/15/23 13:58 Total Bilirubin 1.5 mg/dL (0.15-1.2) H 03/15/23 13:58 AST 18 U/L (0-32) 03/15/23 13:58 ALT 11 U/L (0-33) 03/15/23 13:58 Alkaline Phosphatase 124 U/L (35-105) H 03/15/23 13:58 Troponin T Baseline 17 ng/L (0-10) H 03/15/23 13:58 Troponin T 120 Minute 17.22 ng/L (0-10) H 03/15/23 15:44 Delta Troponin T 0.22 ABS# (0-10) 03/15/23 15:44 NT-Pro-B Natriuret Pep 175 pg/mL (0-125) H 03/15/23 13:58 Total Protein 6.8 g/dL (6.6-8.7) 03/15/23 13:58 Albumin 4.2 g/dL (3.5-5.2) 03/15/23 13:58 Globulin 2.6 g/dL (1.3-4.6) 03/15/23 13:58 Influenza Type A Ag negative (Negative) 03/15/23 14:45 Influenza Type B Ag negative (Negative) 03/15/23 14:45 SARS-CoV-2 Ag (Rapid) negative (Negative) 03/15/23 14:45 Group A Strep Rapid Negative (Negative) 03/15/23 15:03 All radiology interpretation(s) finalized by discharge EKG Data EKG 1: I personally reviewed and interpreted this EKG as follows: Interpretation: Contemporaneous review of the resting EKG reveals a underlying ventricular rate of 67 bpm. Normal MD interval, QRS duration, q. directed QT interval, and normal axis. Generally ST segments are reassuring without any evidence of ischemia. Isolated baseline irregularity in aVL and V2 nondiagnostic. EKG 2: Interpretation: Contemporaneous review of second EKG this visit reveals ventricular rate of 59 bpm. Normal MD interval, QRS duration, corrected QT interval. No acute ST-T wave changes and no change from prior tracing this visit. Discharge Plan Discharge Patient Disposition: Home Clinical Impression: Pharyngitis Qualifiers: Pharyngitis/tonsillitis etiology: unspecified etiology Qualified Code(s): J02.9 - Acute pharyngitis, unspecified Condition: Stable Prescriptions: No Action levetiracetam 250 mg tablet 250 mg PO BID aspirin [Adult Aspirin Regimen] 81 mg tablet,delayed release (DR/EC) 81 mg PO QAM albuterol sulfate [ProAir HFA] 90 mcg/actuation HFA aerosol inhaler 2 puff INHALATION Q6H PRN (Reason: Shortness Of Breath) atorvastatin 20 mg tablet 20 mg PO BEDTIME budesonide 0.5 mg/2 mL suspension for nebulization 0.5 mg inhalation BID PRN (Reason: Shortness Of Breath Or Wheezing) magnesium oxide 500 mg tablet 500 mg PO DAILY acetaminophen 500 mg capsule 500 mg PO Q6H PRN (Reason: Pain) potassium chloride 20 mEq tablet extended release 20 meq PO DAILY Qty: 90 3RF bumetanide 2 mg tablet 2 mg PO DAILY Qty: 90 3RF metoprolol succinate 50 mg tablet extended release 24 hr 75 mg PO BID Qty: 180 3RF hydroxyzine HCl 10 mg Tablet 10 mg PO TID PRN (Reason: Anxiety) spironolactone 25 mg tablet 25 mg PO DAILY trazodone 50 mg tablet 100 mg PO BEDTIME duloxetine 60 mg capsule,delayed release(DR/EC) 60 mg PO DAILY cetirizine 10 mg tablet 10 mg PO DAILY ipratropium-albuterol 0.5 mg-3 mg(2.5 mg base)/3 mL solution for nebulization 3 ml inhalation Q6H PRN (Reason: Shortness Of Breath Or Wheezing) ondansetron HCl 4 mg tablet 4 mg PO Q6H PRN (Reason: nausea and vomiting) Qty: 20 0RF sucralfate 1 gram tablet 1 g PO TID levothyroxine 100 mcg tablet 100 mcg PO DAILY montelukast 10 mg tablet 10 mg PO DAILY Protonix 40 mg tablet,delayed release (DR/EC) 40 mg PO DAILY gabapentin 300 mg capsule 300 mg PO TID Discharge Orders: Discharge ED (Routine); Ordered 03/15/23 Ordered By: Giuseppe Lopez Referrals: Akila Rivera DO [Primary Care Provider] - Discharge Diet: Usual diet Discharge Activity: Increase activity as tolerated Patient Instructions: Opioid Safety, Pain Management Activity Restrictions/Additional Instructions: As we discussed while you are in the emergency department he did not have any evidence of serious illness. We have given you a medication in the emergency department to help with some of your sore throat symptoms. If you develop any new or worsening symptoms such as fever persistent chest pain productive cough or other concerns you are welcome to return to the emergency department. Continue all your usual prescribed medications and make sure that you are drinking adequate fluids, at least 2 quarts of water daily in addition to other fluids. Coding Level of Care Code ED [place] for Dc Serrato
[2023-03-15 14:00] VITALS: BP 138/74; PULSE 64; O2SAT 100
[2023-03-15 14:09] LABS: Basophils # 0.1 10^3/uL (0.0-0.1); Basophils % 0.8 %; Eosinophils # 0.4 10^3/uL (0.0-0.8); Eosinophils % 3.9 %; Hematocrit 41.1 % (36-47); Lymphocytes # 2.5 10^3/uL (0.8-4.8); Mean Corpuscular HGB Conc 30.9 g/dL (30-55); Mean Corpuscular Hemoglobin 28.6 pg (27-33); Mean Corpuscular Volume 92.6 fl (85-98); Mean Platelet Volume 9.9 fL (7.4-10.4); Monocytes # 0.8 10^3/uL (0.2-0.9); Monocytes % 7.9 %; Neutrophils # 6.52 10^3/uL (1.8-7.7); Neutrophils % 63.1 %; Nucleated Red Blood Cells % 0 %; Platelet Count 290 10^3/cmm (157-399); Red Blood Count 4.44 10^6/uL (3.85-5.65); Red Cell Distribution Width 13.7 % (12.1-15.1); White Blood Count 10.31 10^3/uL (3.29-11.43)
[2023-03-15 14:31] LABS: Troponin(5th) Baseline 17 ng/L (0-10)
[2023-03-15 14:32] LABS: Alanine Aminotransferase 11 U/L (0-33); Albumin Level 4.2 g/dL (3.5-5.2); Alkaline Phosphatase 124 U/L (35-105); Anion Gap 10.4 (5-19); Aspartate Amino Transferase 18 U/L (0-32); Blood Urea Nitrogen 15 mg/dL (6-20); Calcium 8.9 mg/dL (8.5-10.5); Carbon Dioxide 38 mmol/L (22-29); Chloride 93 mmol/L (98-107); Globulin 2.6 g/dL (1.3-4.6); Glomerular Filtration Rate 56.9 mL/min (90-130); Glucose 113 mg/dL (65-115); Osmolality Calculated 286 mOsm/kg (285-295); Potassium 4.4 mmol/L (3.5-5.1); Sodium 137 mmol/L (136-145); Total Bilirubin 1.5 mg/dL (0.15-1.2); Total Protein 6.8 g/dL (6.6-8.7)
[2023-03-15 14:58] LABS: NT Pro B Type Natriuretic Pept 175 pg/mL (0-125)
[2023-03-15 15:00] VITALS: BP 113/56; PULSE 53; O2SAT 99
--- NOTE | 2023-03-15 15:01 | PC.PHAR ---
PT UNABLE TO VERIFY MEDICATIONS - PT KEPT ON SAYING IF I FILLED IT I TAKE IT- ALL MEDICATIONS VERIFIED HAVE BEEN FILLED AND PICKED UP
[2023-03-15 15:17] LABS: Rapid Strep A Test Negative (Negative)
[2023-03-15 15:18] LABS: Influenza A by IFA negative (Negative); Influenza B by IFA negative (Negative)
[2023-03-15 15:20] LABS: SARS Covid-2 Antigen negative (Negative)
--- NOTE | 2023-03-15 15:41 | ECG_ITS ---
[facility] Test Date: 2023-03-15 Pat Name: Crystal Pierre Department: Room: Gender: Female Maintenance Porter: : 1965 Requested By: Giuseppe Lopez Order Number: [id number] Clemencia MD: Enrique Haro M.D. Measurements Intervals [place] Rate: 59 P: 63 CO: 140 QRS: 62 QRSD: 105 T: 62 QT: 443 QTc: 442 Interpretive Statements SINUS BRADYCARDIA Compared to ECG 03/15/2023 13:41:24 Sinus rhythm no longer present Myocardial infarct finding no longer present Electronically Signed On 03-15-2023 16:32:30 HOLLOW HANDLE BENCH WORKER by Enrique Haro M.D. [email or web address]
[2023-03-15 16:00] VITALS: BP 111/58; PULSE 57; O2SAT 100
[2023-03-15 16:23] LABS: Troponin 5 2HR 17.22 ng/L (0-10); Troponin 5 2HR Delta 0.22 ABS# (0-10)
[2023-03-15] MEDS: dexamethasone 10 mg/mL INJ IVP (17:01)
[2023-03-15 17:23] VITALS: BP 138/63; PULSE 74; O2SAT 100
== END 2023-03-15 17:27 | disposition home or self-care (01) ==
PROVIDERS: Emergency Provider Emergency Medicine; PCP Family Medicine
DX: J02.9 Acute pharyngitis, unspecified (principal); Z79.82 Long term (current) use of aspirin; Z11.52 Encounter for screening for COVID-19; Z87.891 Personal history of nicotine dependence; I11.0 Hypertensive heart disease with heart failure; I50.30 Unspecified diastolic (congestive) heart failure; J44.9 Chronic obstructive pulmonary disease, unspecified
CPT/HCPCS: 36415; 71045; 80053; 83880; 84484; 85025; 87081; 87426; 87804; 87880; 93005; 96374; 99285; J1100

== ENCOUNTER 2023-03-17 11:55 | Emergency (ER) | payer MEDICARE, MEDICAID, SELFPAY ==
[2023-03-17 11:57] VITALS: BP 109/55; PULSE 57; RESP 18; TEMP 36.8; O2SAT 99
--- NOTE | 2023-03-17 12:16 | XR_ITS ---
WS: [id number] XR chest 1V portable [id number] REASON FOR EXAM: dyspnea/cough FINDINGS: The chest is unchanged compared to the exam of 2 days ago. Significant tortuosity and ectasia of the thoracic aorta. Normal heart size. Calcified granulomatous disease bilaterally. No acute or subacute pulmonary parenchymal or pleural abnormality is identified. Mild degenerative spondylosis in the mid and lower thoracic spine. 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 IMPRESSION: Stable chest with no acute abnormality identified.
--- NOTE | 2023-03-17 12:17 | ECG_ITS ---
[facility] Test Date: 2023-03-17 Pat Name: Crystal Pierre Department: Room: Gender: Female Coil Connector: : 1965 Requested By: Joshua Garcia Order Number: [id number] Clemencia MD: Joseph Wilson M.D. Measurements Intervals [place] Rate: 56 P: 65 FL: 128 QRS: 48 QRSD: 102 T: 53 QT: 419 QTc: 406 Interpretive Statements SINUS BRADYCARDIA WITH SINUS ARRHYTHMIA POSSIBLE RIGHT VENTRICULAR CONDUCTION DELAY [RSR (QR) IN V1/V2] Compared to ECG 03/15/2023 15:41:54 No significant changes Electronically Signed On 03-18-2023 5:56:49 WATER RESOURCE SPECIALIST by Joseph Wilson M.D. [id number]
[2023-03-17 12:35] LABS: Basophils % 0.4 %; Eosinophils # 0.1 10^3/uL (0.0-0.8); Eosinophils % 0.7 %; Hematocrit 38.6 % (36-47); Lymphocytes # 2.6 10^3/uL (0.8-4.8); Lymphocytes % 24.7 %; Mean Corpuscular HGB Conc 30.3 g/dL (30-55); Mean Corpuscular Hemoglobin 28.4 pg (27-33); Mean Corpuscular Volume 93.7 fl (85-98); Mean Platelet Volume 9.9 fL (7.4-10.4); Monocytes # 0.9 10^3/uL (0.2-0.9); Monocytes % 8.5 %; Neutrophils # 6.83 10^3/uL (1.8-7.7); Neutrophils % 65.3 %; Nucleated Red Blood Cells % 0 %; Platelet Count 281 10^3/cmm (157-399); Red Blood Count 4.12 10^6/uL (3.85-5.65); White Blood Count 10.45 10^3/uL (3.29-11.43)
[2023-03-17 12:55] LABS: Alanine Aminotransferase 10 U/L (0-33); Albumin Level 3.7 g/dL (3.5-5.2); Alkaline Phosphatase 102 U/L (35-105); Anion Gap 10.2 (5-19); Aspartate Amino Transferase 13 U/L (0-32); Blood Urea Nitrogen 22 mg/dL (6-20); Calcium 9.1 mg/dL (8.5-10.5); Carbon Dioxide 38 mmol/L (22-29); Chloride 101 mmol/L (98-107); Globulin 2.3 g/dL (1.3-4.6); Glomerular Filtration Rate 56.9 mL/min (90-130); Glucose 106 mg/dL (65-115); Osmolality Calculated 304 mOsm/kg (285-295); Potassium 4.2 mmol/L (3.5-5.1); Sodium 145 mmol/L (136-145); Total Bilirubin 0.4 mg/dL (0.15-1.2)
[2023-03-17 12:58] LABS: Troponin(5th) Baseline 13 ng/L (0-10)
[2023-03-17 13:00] LABS: Influenza A by IFA negative (Negative); Influenza B by IFA negative (Negative)
--- NOTE | 2023-03-17 13:05 | W.ED.CHESTPA ---
HPI - Chest Pain General: Chief Complaint: Chest Pain Stated Complaint: chest pain Time Seen by Provider: 03/17/23 11:57 Source: patient Mode of arrival: ambulatory History of Present Illness: 57-year-old female presents emergency room via EMS with complaint of central chest pain rating to the left side of her chest that she has a bit of a sore throat generally does not feel well. She was seen 2 days ago In the emergency room for pharyngitis. At the time of that visit her flu and COVID were negative. She continues to complain of chest discomfort at this time. She is on usually 3 L by nasal cannula oxygen at home. 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 Other Adopted Social History Smoking and tobacco/nicotine status: former use of tobacco/nicotine Quit status (tobacco/nicotine): has quit using Year quit tobacco: 2019 - 1-5 ciggs/day Alcohol intake: never Substance/Drug Use: never Lives independently: Yes Household members: none Housing: Apartment Current occupational status: disabled Do you think of yourself as: Straight/Heterosexual Current gender identity: Female Physical Exam Const: COMMON NORMALS: no acute distress GENERAL APPEARANCE: cooperative and comfortable ORIENTATION/CONSCIOUSNESS: Yes awake HENMT: COMMON NORMALS: normocephalic, atraumatic and hearing grossly normal bilaterally HEAD & SCALP: normocephalic and atraumatic Resp: COMMON NORMALS: normal respiratory effort, No retractions, No use of accessory muscles and clear to auscultation bilaterally AUSCULTATION: clear to auscultation bilaterally Cardio: COMMON NORMALS: regular rate, regular rhythm and No murmurs present (Cardio) RATE: regular rate RHYTHM: regular rhythm GI: COMMON NORMALS: Soft to palpation and No hepatosplenomegaly present AUSCULTATION: Yes normoactive bowel sounds PALPATION: Yes Soft to palpation, No Tenderness to palpation present (GI), No Guarding due to palpation present (GI) and Yes No hepatosplenomegaly present Extremity: COMMON NORMALS: normal to inspection, capillary refill normal, no clubbing, cyanosis or edema, no calf tenderness and no pedal edema Skin: COMMON NORMALS: no rashes or lesions noted GENERAL SKIN EXAM: no rashes or lesions noted Course Vital Signs: Vital signs: Vital Signs Temperature 98.3 F 03/17/23 11:57 Pulse Rate 63 03/17/23 15:04 Respiratory Rate 18 03/17/23 14:34 Blood Pressure 118/69 03/17/23 15:04 Pulse Oximetry 100 03/17/23 15:04 Oxygen Delivery Me thod Nasal Cannula 03/17/23 15:04 Oxygen Flow Rate 3 03/17/23 15:04 MDM - Chest Pain Medical Decision Making EKG does not show acute ST changes reviewed as found on the chart compared to previous EKGs. Troponins do not show significant delta trend. Will discharge patient home suspect this is largely viral upper respiratory infection with pleuritic chest discomfort is worse with deep inspiration. Will discharge her home on her usual oxygen [place] check if she has further problems. Medical Records I reviewed the patient's medical records. Lab Data I reviewed the patient's lab results. 03/17/23 12:27 03/17/23 12:27 Laboratory Results WBC 10.45 10^3/uL (3.29-11.43) 03/17/23 12: RBC 4.12 10^6/uL (3.85-5.65) 03/17/23 12:27 Hgb 11.70 g/dL (11.27-16.99) 03/17/23 12:27 Hct 38.6 % (36-47) 03/17/23 12:27 MCV 93.7 fl (85-98) 03/17/23 12:27 MCH 28.4 pg (27-33) 03/17/23 12:27 MCHC 30.3 g/dL (30-55) 03/17/23 12:27 RDW 14.0 % (12.1-15.1) 03/17/23 12: Plt Count 281 10^3/cmm (157-399) 03/17/23 12: MPV 9.9 fL (7.4-10.4) 03/17/23 12: Neut % (Auto) 65.3 % 03/17/23 12:27 Lymph % (Auto) 24.7 % 03/17/23 12:27 [place] % (Auto) 8.5 % 03/17/23 12:27 Eos % (Auto) 0.7 % 03/17/23 12: Baso % (Auto) 0.4 % 03/17/23 12: Neut # (Auto) 6.83 10^3/uL (1.8-7.7) 03/17/23 12: Lymph # (Auto) 2.6 10^3/uL (0.8-4.8) 03/17/23 12:27 [place] # (Auto) 0.9 10^3/uL (0.2-0.9) 03/17/23 12:27 Eos # (Auto) 0.1 10^3/uL (0.0-0.8) 03/17/23 12: Baso # (Auto) 0.0 10^3/uL (0.0-0.1) 03/17/23 12: Nucleated RBC % (auto) 0 % 03/17/23 12: Nucleated RBCs # 0.0 /100WBC 03/17/23 12:27 Sodium 145 mmol/L (136-145) 03/17/23 12:27 Potassium 4.2 mmol/L (3.5-5.1) 03/17/23 12:27 Chloride 101 mmol/L (98-107) 03/17/23 12:27 Carbon Dioxide 38 mmol/L (22-29) H 03/17/23 12:27 Anion Gap 10.2 (5-19) 03/17/23 12:27 BUN 22 mg/dL (6-20) H 03/17/23 12:27 Creatinine 1.0 mg/dL (0.5-0.9) H 03/17/23 12:27 GFR Calculation 56.9 mL/min (90-130) L 03/17/23 12:27 Glucose 106 mg/dL (65-115) 03/17/23 12:27 Calculated Osmolality 304 mOsm/kg (285-295) H 03/17/23 12:27 Lactic Acid 1.0 mmol/L (0.5-2.2) 03/17/23 12:27 Calcium 9.1 mg/dL (8.5-10.5) 03/17/23 12:27 Total Bilirubin 0.4 mg/dL (0.15-1.2) 03/17/23 12:27 AST 13 U/L (0-32) 03/17/23 12:27 ALT 10 U/L (0-33) 03/17/23 12:27 Alkaline Phosphatase 102 U/L (35-105) 03/17/23 12:27 Troponin T Baseline 13 ng/L (0-10) H 03/17/23 12:27 Troponin T 120 Minute 12.51 ng/L (0-10) H 03/17/23 14:37 Delta Troponin T -0.49 ABS# (0-10) L 03/17/23 14:37 Total Protein 6.0 g/dL (6.6-8.7) L 03/17/23 12:27 Albumin 3.7 g/dL (3.5-5.2) 03/17/23 12:27 Globulin 2.3 g/dL (1.3-4.6) 03/17/23 12:27 Urine Color Yellow (Yellow) 03/17/23 13:51 Urine Appearance Clear (CLEAR) 03/17/23 13:51 Urine pH 5 (5-7) 03/17/23 13:51 Ur Specific [place] 1.020 (1.005-1.030) 03/17/23 13:51 Urine Protein Neg (Negative) 03/17/23 13:51 Urine Glucose (UA) Norm (Normal) 03/17/23 13:51 Urine Ketones 1+ (Negative) H 03/17/23 13:51 Urine Blood Neg (Negative) 03/17/23 13:51 Urine Nitrate Negative (Negative) 03/17/23 13:51 Urine Bilirubin 1+ (Negative) H 03/17/23 13:51 Urine Urobilinogen 1 mg/dL (Negative) H 03/17/23 13:51 Ur Leukocyte Esterase Negative (Negative) 03/17/23 13:51 Coronavirus 229E (PCR) Not detected (NOT DETECT) 03/17/23 12:33 Influenza Type A Ag negative (Negative) 03/17/23 12:33 Influenza Type B Ag negative (Negative) 03/17/23 12:33 SARS-CoV-2 (PCR) Not detected (NOT DETECT) 03/17/23 12:33 All radiology interpretation(s) finalized by discharge Discharge Plan Discharge Patient Disposition: Home Clinical Impression: Atypical chest pain, Viral URI Condition: Stable Prescriptions: No Action levetiracetam 250 mg tablet 250 mg PO BID aspirin [Adult Aspirin Regimen] 81 mg tablet,delayed release (DR/EC) 81 mg PO QAM albuterol sulfate [ProAir HFA] 90 mcg/actuation HFA aerosol inhaler 2 puff INHALATION Q6H PRN (Reason: Shortness Of Breath) atorvastatin 20 mg tablet 20 mg PO BEDTIME magnesium oxide 500 mg tablet 500 mg PO DAILY acetaminophen 500 mg capsule 500 mg PO Q6H PRN (Reason: Pain) potassium chloride 20 mEq tablet extended release 20 meq PO DAILY Qty: 90 3RF bumetanide 2 mg tablet 2 mg PO DAILY Qty: 90 3RF metoprolol succinate 50 mg tablet extended release 24 hr 75 mg PO BID Qty: 180 3RF hydroxyzine HCl 10 mg Tablet 10 mg PO TID PRN (Reason: Anxiety) spironolactone 25 mg tablet 25 mg PO DAILY trazodone 50 mg tablet 100 mg PO BEDTIME duloxetine 60 mg capsule,delayed release(DR/EC) 60 mg PO DAILY cetirizine 10 mg tablet 10 mg PO DAILY albuterol sulfate 2.5 mg /3 mL (0.083 %) solution for nebulization 2.5 mg inhalation QID PRN (Reason: SHORTNESS OF BREATH) ondansetron HCl 4 mg tablet 4 mg PO Q6H PRN (Reason: nausea and vomiting) Qty: 20 0RF sucralfate 1 gram tablet 1 g PO TID levothyroxine 100 mcg tablet 100 mcg PO DAILY montelukast 10 mg tablet 10 mg PO DAILY pantoprazole [Protonix] 40 mg tablet,delayed release (DR/EC) 40 mg PO DAILY gabapentin 300 mg capsule 300 mg PO TID Discharge Orders: Discharge ED (Routine); Ordered 03/17/23 Ordered By: Joshua Hale Referrals: Akila Rivera DO [Primary Care Provider] - Discharge Diet: Usual diet Discharge Activity: Increase activity as tolerated Patient Instructions: Opioid Safety, Pain Management Activity Restrictions/Additional Instructions: Thank you for choosing [facility] for your healthcare needs today. Please realize this is an emergency room and that we are providing you with a medical screening exam and this may not be complete and all inclusive of all the testing and or work up that you may need to determine your ailment or severity of your illness. It is very important that you follow up as instructed or that you return to the Emergency Department should you have concerns or if your condition changes or worsens in any way. You are seen today for complaints of chest discomfort cardiac enzymes and EKG did not show any acute abnormalities. Your laboratory tests were otherwise unremarkable flu and COVID test were negative. Coding Level of Care Code ED Electronic Equipment Repairer for Dc Serrato
[2023-03-17 13:34] VITALS: BP 127/74; PULSE 65; RESP 15; O2SAT 97
[2023-03-17 14:01] LABS: Add Urine Microscopic? NO; Charge for UA Resulting for Rev
[2023-03-17 14:04] VITALS: BP 122/71; PULSE 65; RESP 16; O2SAT 99
[2023-03-17 14:10] LABS: Urine Appearance Clear (CLEAR); Urine Color Yellow (Yellow)
[2023-03-17 14:11] LABS: Bilirubin Urine 1+ (Negative); Blood Urine Neg (Negative); Glucose Urine UA Norm (Normal); Ketones Urine 1+ (Negative); Leukocyte Esterase Urine Negative (Negative); Nitrate Urine Negative (Negative); Protein Urine Neg (Negative); Urobilinogen Urine 1 mg/dL (Negative); pH Urine 5 (5-7)
[2023-03-17 14:27] LABS: Adenovirus Not Detected (NOT DETECT); Chlamydia Pneumoniae Not Detected (NOT DETECT); Coronavirus 229E,HKU1,NL63,OC4 Not Detected (NOT DETECT); Human Metapneumovirus Not Detected (NOT DETECT); Human Rhinovirus/Enterovirus Not Detected (NOT DETECT); Influenza A Not Detected (NOT DETECT); Influenza A H1 Not Detected (NOT DETECT); Influenza A H1-2009 Not Detected (NOT DETECT); Influenza A H3 Not Detected (NOT DETECT); Influenza B Not Detected (NOT DETECT); Mycoplasma Pneumoniae Not Detected (NOT DETECT); Parainfluenza Virus Type 1 Not Detected (NOT DETECT); Parainfluenza Virus Type 2 Not Detected (NOT DETECT); Parainfluenza Virus Type 3 Not Detected (NOT DETECT); Parainfluenza Virus Type 4 Not Detected (NOT DETECT); Respiratory Syncytial Virus A Not Detected (NOT DETECT); Respiratory Syncytial Virus B Not Detected (NOT DETECT); SARS-COV-2 Not Detected (NOT DETECT)
--- NOTE | 2023-03-17 14:33 | ECG_ITS ---
[facility] Test Date: 2023-03-17 Pat Name: Crystal Pierre Department: Room: Gender: Female Location Worker: : 1965 Requested By: Joshua Garcia Order Number: [id number] Clemencia MD: Joseph Wilson M.D. Measurements Intervals [place] Rate: 61 P: 65 NV: 137 QRS: 50 QRSD: 99 T: 53 QT: 411 QTc: 417 Interpretive Statements SINUS RHYTHM POSSIBLE RIGHT VENTRICULAR CONDUCTION DELAY [RSR (QR) IN V1/V2] Compared to ECG 03/17/2023 12:05:39 Sinus bradycardia no longer present Sinus arrhythmia no longer present Electronically Signed On 03-18-2023 6:02:56 GUIDE DOMESTIC TOUR by Joseph Wilson M.D. [email or web address]
[2023-03-17 14:34] VITALS: BP 134/98; PULSE 66; RESP 18; O2SAT 95
[2023-03-17 15:04] VITALS: BP 118/69; PULSE 63; O2SAT 100
[2023-03-17 15:17] LABS: Troponin 5 2HR 12.51 ng/L (0-10)
[2023-03-17 15:18] LABS: Troponin 5 2HR Delta -0.49 ABS# (0-10)
== END 2023-03-17 16:08 | disposition home or self-care (01) ==
PROVIDERS: Emergency Provider Family Medicine; PCP Family Medicine
DX: R07.89 Other chest pain (principal); J06.9 Acute upper respiratory infection, unspecified; Z79.82 Long term (current) use of aspirin; Z11.52 Encounter for screening for COVID-19; Z87.891 Personal history of nicotine dependence; I11.0 Hypertensive heart disease with heart failure; I50.30 Unspecified diastolic (congestive) heart failure; J44.9 Chronic obstructive pulmonary disease, unspecified
CPT/HCPCS: 36415; 71045; 80053; 81003; 83605; 84484; 85025; 87040; 87635; 87804; 93005; 99285

== ENCOUNTER 2023-04-04 18:44 | Emergency (ER) | payer MEDICARE, MEDICAID, SELFPAY ==
[2023-04-04 19:14] VITALS: BP 140/69; PULSE 58; RESP 12; TEMP 36.8; O2SAT 94; BMI 37.5
--- NOTE | 2023-04-04 20:34 | W.ED.WOUNDLC ---
HPI - Wound/Laceration General: Chief Complaint: Wound/Laceration Stated Complaint: Lac Lower leg Time Seen by Provider: 04/04/23 20:26 Source: patient Mode of arrival: ambulatory Limitations: no limitations History of Present Illness: 57-year-old female who states that she is to hold up to her walker and one of the parts of her walker hit her on her left lower leg causing a laceration to her left lower leg. She does have a roughly 6 cm laceration across her lower leg she has minimal pain she still able to ambulate she is up-to-date on her tetanus she denies any other injuries. Associated symptoms: Denies chills, fever(s), nausea or vomiting Review of Systems Const: Denies: fever(s), chills, body aches or change in appetite ENMT: Denies: throat pain or dental pain Card: Denies: chest pain Resp: Denies: dyspnea GI: Denies: abdominal pain, nausea, vomiting or diarrhea Musc: Reports: extremity pain; Denies: neck pain or back pain Skin/Breast: Denies: rash Neuro: Denies: headache(s) PFSH ED PFSH: Medical History (Updated 04/04/23 @ 21:09 by Tenisha Casey MD) Psychiatric care Diastolic heart failure Chest pain Lower extremity edema Atypical chest pain Cervical radiculopathy Pain of hand Diastolic CHF 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 Other Adopted Social History Smoking and tobacco/nicotine status: former use of tobacco/nicotine Quit status (tobacco/nicotine): has quit using Year quit tobacco: 2019 -5 ciggs/day Alcohol intake: never Substance/Drug Use: never Lives independently: Yes Household members: none Housing: Apartment Current occupational status: disabled Do you think of yourself as: Straight/Heterosexual Current gender identity: Female Physical Exam Const: COMMON NORMALS: no acute distress, patient oriented x3 and healthy appearing HENMT: COMMON NORMALS: normocephalic and atraumatic HEAD & SCALP: normocephalic and atraumatic Neck/C-Spine: COMMON NORMALS: full ROM and supple Chest: COMMONS NORMALS: normal inspection of the chest Resp: COMMON NORMALS: normal respiratory effort Cardio: COMMON NORMALS: regular rate, regular rhythm and No murmurs present (Cardio) RATE: regular rate RHYTHM: regular rhythm Extremity: COMMON NORMALS: full ROM NARRATIVE EXTREMITY EXAM: 6 cm laceration to the left lower leg Neuro: COMMON NORMALS: patient oriented x3, moves all extremities and no focal motor deficits Psych: COMMON NORMALS: mental status grossly normal, Normal thought process present and cooperative THOUGHT PROCESS: Normal thought process present Skin: COMMON NORMALS: no rashes or lesions noted GENERAL SKIN EXAM: no rashes or lesions noted Procedures Laceration Laceration 1: Site: lower extremity Side (If applicable): left Size (cm): 7 Description: linear Depth: simple, single layer Local Anesthetic: lidocaine 1% Amount of anesthesia used (mL): 15 Pre-repair: wound explored and irrigated extensively Skin layer closed with: nylon Size (cm): 4-0 Number of sutures: 6 Technique: horizontal mattress Course Vital Signs: Vital signs: Vital Signs Temperature 98.2 F 04/04/23 19:14 Pulse Rate 58 L 04/04/23 19:14 Respiratory Rate 12 04/04/23 19:14 Blood Pressure 140/69 04/04/23 19:14 Pulse Oximetry 94 04/04/23 19:14 Oxygen Delivery Me thod Room Air 04/04/23 19:14 MDM - Wound/Laceration Medical Decision Making Presents with a laceration to her lower leg laceration was repaired here she is up-to-date on tetanus she is well-appearing here she stable for discharge she is to have the sutures removed in 2 weeks return if worsening. Medical Records I reviewed the patient's medical records. No radiology studies performed this visit Discharge Plan Discharge Patient Disposition: Home Clinical Impression: Laceration of left leg Qualifiers: Encounter type: initial encounter Qualified Code(s): S81.812A - Laceration without foreign body, left lower leg, initial encounter Condition: Stable Prescriptions: No Action levetiracetam 250 mg tablet 250 mg PO BID aspirin [Adult Aspirin Regimen] 81 mg tablet,delayed release (DR/EC) 81 mg PO QAM albuterol sulfate [ProAir HFA] 90 mcg/actuation HFA aerosol inhaler 2 puff INHALATION Q6H PRN (Reason: Shortness Of Breath) atorvastatin 20 mg tablet 20 mg PO BEDTIME magnesium oxide 500 mg tablet 500 mg PO DAILY acetaminophen 500 mg capsule 500 mg PO Q6H PRN (Reason: Pain) potassium chloride 20 mEq tablet extended release 20 meq PO DAILY Qty: 90 3RF bumetanide 2 mg tablet 2 mg PO DAILY Qty: 90 3RF metoprolol succinate 50 mg tablet extended release 24 hr 75 mg PO BID Qty: 180 3RF hydroxyzine HCl 10 mg Tablet 10 mg PO TID PRN (Reason: Anxiety) spironolactone 25 mg tablet 25 mg PO DAILY trazodone 50 mg tablet 100 mg PO BEDTIME duloxetine 60 mg capsule,delayed release(DR/EC) 60 mg PO DAILY cetirizine 10 mg tablet 10 mg PO DAILY albuterol sulfate 2.5 mg /3 mL (0.083 %) solution for nebulization 2.5 mg inhalation QID PRN (Reason: SHORTNESS OF BREATH) ondansetron HCl 4 mg tablet 4 mg PO Q6H PRN (Reason: nausea and vomiting) Qty: 20 0RF sucralfate 1 gram tablet 1 g PO TID levothyroxine 100 mcg tablet 100 mcg PO DAILY montelukast 10 mg tablet 10 mg PO DAILY pantoprazole [Protonix] 40 mg tablet,delayed release (DR/EC) 40 mg PO DAILY gabapentin 300 mg capsule 300 mg PO TID Discharge Orders: Discharge ED (Routine); Ordered 04/04/23 Ordered By: Tenisha Casey Referrals: Akila Rivera DO [Primary Care Provider] - 2 weeks Discharge Diet: Advance as tolerated Discharge Activity: Resume usual activity Patient Instructions: Care For Your Stitches (ED), Laceration (ED) Coding Level of Care Code ED Cut Off Saw Set Up Operator for Dc Serrato
[2023-04-04] MEDS: HYDROcodone-acetaminophen 5-325 mg Tablet 1 TAB PO (21:24)
[2023-04-04] MEDS: lidocaine 1% INJ 10 mL (per mL) 20 ML SUBCUT (21:24)
--- NOTE | 2023-04-04 21:39 | PC.NURSE ---
cleansed wound with sterile water and covered with tefla and wrapped with kerlex, secured with tape
== END 2023-04-04 21:40 | disposition home or self-care (01) ==
PROVIDERS: Emergency Provider Emergency Medicine; PCP Family Medicine
DX: S81.812A Laceration without foreign body, left lower leg, initial encounter (principal); Z79.82 Long term (current) use of aspirin; Z87.891 Personal history of nicotine dependence; I11.0 Hypertensive heart disease with heart failure; I50.30 Unspecified diastolic (congestive) heart failure; J44.9 Chronic obstructive pulmonary disease, unspecified; W22.8XXA Striking against or struck by other objects, initial encounter
CPT/HCPCS: 12002; 99283

== ENCOUNTER 2023-05-05 15:00 | Emergency (ER) | payer MEDICARE, MEDICAID, SELFPAY ==
[2023-05-05 15:04] VITALS: BP 125/70; PULSE 63; RESP 18; O2SAT 94
--- NOTE | 2023-05-05 15:08 | ED_ITS ---
HPI - Skin/Abscess/Foreign Bdy General: Chief complaint: Wound/Laceration Stated complaint: Laceration to leg Time Seen by Provider: 05/05/23 15:04 Source: patient and EMS Mode of arrival: EMS Limitations: no limitations History of Present Illness: Patient is a 57-year-old female who is extremely well-known to our emergency department here in regards to a wound to her left leg. She was seen here a m onth ago after she struck the leg on a portion of her wheelchair/walker. She sustained a laceration that was sutured here in the emergency department. She states her sutures were removed on 04/15. She states she bumped it today and the wound reopened thus prompting her to call an ambulance. There is no bleeding upon arrival. 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 Other Adopted Social History Smoking and tobacco/nicotine status: former use of tobacco/nicotine Quit status (tobacco/nicotine): has quit using Year quit tobacco: 2018 - 1-5 ciggs/day Alcohol intake: never Substance/Drug Use: never Lives independently: Yes Household members: none Housing: Apartment Current occupational status: disabled Do you think of yourself as: Straight/Heterosexual Current gender identity: Female Physical Exam Const: COMMON NORMALS: no acute distress and no limitations Extremity: NARRATIVE EXTREMITY EXAM: chronic bilateral LE edema; she has a wound to her anterior L LE that honestly does not appear acutely dehisced; wound is shallow with granulation tissue present; no bleeding; no infection Course Vital Signs: Vital signs: Vital Signs Pulse Rate 67 05/05/23 15:11 Respiratory Rate 16 05/05/23 15:11 Blood Pressure 125/70 05/05/23 15:11 Pulse Oximetry 93 05/05/23 15:11 Oxygen Delivery Me thod Room Air 05/05/23 15:11 MDM - Skin/Abscess/Foreign Bdy Medicial Decision Making Patient here stating her wound from a month ago dehisced. Clinically it does not appear acutely dehisced. It looks like it has probably been dehisced for at least a week or so. Is not infected. Is not draining. There is nothing to indicate closure today. There is nothing to be done from an emergency standpoint other than wound care. Wound care infection precautions for home discussed. Medical Records I reviewed the patient's medical records. No radiology studies performed this visit Discharge Plan Discharge Patient Disposition: Home Clinical Impression: Dehiscence of wound Condition: Stable Prescriptions: No Action levetiracetam 250 mg tablet 250 mg PO BID aspirin [Adult Aspirin Regimen] 81 mg tablet,delayed release (DR/EC) 81 mg PO QAM albuterol sulfate [ProAir HFA] 90 mcg/actuation HFA aerosol inhaler 2 puff INHALATION Q6H PRN (Reason: Shortness Of Breath) atorvastatin 20 mg tablet 20 mg PO BEDTIME magnesium oxide 500 mg tablet 500 mg PO DAILY acetaminophen 500 mg capsule 500 mg PO Q6H PRN (Reason: Pain) potassium chloride 20 mEq tablet extended release 20 meq PO DAILY Qty: 90 3RF bumetanide 2 mg tablet 2 mg PO DAILY Qty: 90 3RF metoprolol succinate 50 mg tablet extended release 24 hr 75 mg PO BID Qty: 180 3RF hydroxyzine HCl 10 mg Tablet 10 mg PO TID PRN (Reason: Anxiety) spironolactone 25 mg tablet 25 mg PO DAILY trazodone 50 mg tablet 100 mg PO BEDTIME duloxetine 60 mg capsule,delayed release(DR/EC) 60 mg PO DAILY cetirizine 10 mg tablet 10 mg PO DAILY albuterol sulfate 2.5 mg /3 mL (0.083 %) solution for nebulization 2.5 mg inhalation QID PRN (Reason: SHORTNESS OF BREATH) ondansetron HCl 4 mg tablet 4 mg PO Q6H PRN (Reason: nausea and vomiting) Qty: 20 0RF sucralfate 1 gram tablet 1 g PO TID levothyroxine 100 mcg tablet 100 mcg PO DAILY montelukast 10 mg tablet 10 mg PO DAILY pantoprazole [Protonix] 40 mg tablet,delayed release (DR/EC) 40 mg PO DAILY gabapentin 300 mg capsule 300 mg PO TID Discharge Orders: Discharge ED (Routine); Ordered 05/05/23 Ordered By: Vickie Nelson Referrals: Akila Rivera, [Primary Care Provider] - Activity Restrictions/Additional Instructions: As we discussed there is nothing to do for your wound from an emergency standpoint. Keep wound clean with warm soap and water. You may apply a small amount of triple antibiotic ointment twice daily. I will need to heal on its own. Monitor for signs of infection such as redness, streaking up your leg, purulent drainage, odor, or fevers. Please seek medical re-evaluation if these occur. Coding Level of Care Code ED Umbrella Finisher for Dc Serrato
[2023-05-05 15:11] VITALS: BP 125/70; PULSE 67; RESP 16; O2SAT 93
[2023-05-05 15:27] VITALS: BP 125/70; PULSE 67; RESP 16; O2SAT 93
== END 2023-05-05 15:28 | disposition home or self-care (01) ==
PROVIDERS: Emergency Provider Physician Assistant; PCP Family Medicine
DX: T81.33XA Disruption of traumatic injury wound repair, initial encounter (principal); I11.0 Hypertensive heart disease with heart failure; I50.9 Heart failure, unspecified; J44.9 Chronic obstructive pulmonary disease, unspecified; Z87.891 Personal history of nicotine dependence
CPT/HCPCS: 99282

== ENCOUNTER 2023-05-16 09:54 | Outpatient (CLI) | payer MEDICARE, MEDICAID, SELFPAY ==
--- NOTE | 2023-05-16 09:56 | MM_ITS ---
WS: [id number] BILATERAL 3D TOMOSYNTHESIS DIGITAL SCREENING MAMMOGRAPHY WITH CAD CLINICAL INFORMATION: SCREENING HISTORY: Screening mammogram. No current complaints. COMPARISON: 2022 TECHNIQUE: Bilateral CC and MLO views. FINDINGS: Scattered fibroglandular densities bilaterally. No suspicious focal mass, asymmetry, calcifications, or architectural distortion. No evidence of malignancy. Few incidental punctate and lucent centered c alcifications. IMPRESSION: MM/[place] [id number] BI-RADS: 2-Benign FOLLOW UP: 1 Year Follow-up Recommend return to annual screening mammography.
== END 2023-05-16 09:55 | disposition home or self-care (01) ==
LOC: RAD 09:55
PROVIDERS: PCP Family Medicine; Visit Provider Family Medicine
DX: Z12.31 Encounter for screening mammogram for malignant neoplasm of breast (principal)
CPT/HCPCS: 77063; 77067

== ENCOUNTER 2023-05-27 20:46 | Emergency (ER) | payer MEDICARE, MEDICAID, SELFPAY ==
[2023-05-27 20:48] VITALS: BP 144/81; PULSE 63; RESP 20; TEMP 36.6; O2SAT 99; BMI 31.3
--- NOTE | 2023-05-27 21:02 | ED_ITS ---
Documented by User: Tenisha Casey MD 05/27/23 21:56 HPI - Abdominal Pain 2 General: Chief Complaint: Abdominal Pain Stated Complaint: ABD PAIN Time Seen by Provider: 05/27/23 20:52 Source: patient and EMS Mode of arrival: EMS Limitations: no limitations History of Present Illness: 53-year-old female who is very well-know n to the ER states she been having left lower quadrant abdominal pain that radiates to her groin over the last 2 days. States pain is a cramping pain she rates a 4 out of 10 currently she denies any dysuria denies any vomiting or diarrhea she denies any fevers denies any worse improved factors. Associated Symptoms: Denies chills, diarrhea, dysuria, fever(s), nausea and vomiting Review of Systems 2 Const: Denies: fever(s), chills, body aches or change in appetite ENMT: Denies: throat pain or dental pain Card: Denies: chest pain Resp: Denies: dyspnea GI: Reports: abdominal pain; Denies: nausea, vomiting or diarrhea : Denies: dysuria Musc: Denies: neck pain or back pain Skin/Breast: Denies: rash Neuro: Denies: headache(s) PFSH ED 2 PFSH: Medical History Psychiatric care Diastolic heart failure Chest pain Lower extremity edema Atypical chest pain Cervical radiculopathy Pain of hand Diastolic CHF 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 Other Adopted Social History Smoking and tobacco/nicotine status: former use of tobacco/nicotine Quit status (tobacco/nicotine): has quit using Year quit tobacco: 2019 - 1-5 ciggs/day Alcohol intake: never Substance/Drug Use: never Lives independently: Yes Household members: none Housing: Apartment Current occupational status: disabled Do you think of yourself as: Straight/Heterosexual Current gender identity: Female Physical Exam 2 Const: COMMON NORMALS: no acute distress, patient oriented x3 and healthy appearing HENMT: COMMON NORMALS: normocephalic and atraumatic HEAD & SCALP: n ormocephalic and atraumatic Neck/C-Spine: COMMON NORMALS: full ROM and supple Chest: COMMONS NORMALS: normal inspection of the chest Resp: COMMON NORMALS: normal respiratory effort, No retractions, No use of accessory muscles and clear to auscultation bilaterally AUSCULTATION: clear to auscultation bilaterally Cardio: COMMON NORMALS: regular rate, regular rhythm and No murmurs present (Cardio) RATE: regular rate RHYTHM: regular rhythm GI: COMMON NORMALS: Normal to inspection, nondistended, normoactive bowel sounds present, Soft to palpation, non-tender and no masses PALPATION: Yes Soft to palpation Extremity: COMMON NORMALS: normal to inspection and full ROM Neuro: COMMON NORMALS: patient oriented x3, moves all extremities and no focal motor deficits Psych: COMMON NORMALS: mental status grossly normal, Normal thought process present and cooperative THOUGHT PROCESS: Normal thought process present Skin: COMMON NORMALS: no rashes or lesions noted and no wounds GENERAL SKIN EXAM: no rashes or lesions noted Course 2 Vital Signs: Vital signs: Vital Signs Temperature 98 F 05/27/23 20:48 Pulse Rate 58 L 05/27/23 23:24 Respiratory Rate 20 H 05/27/23 20:48 Blood Pressure 122/52 05/27/23 23:24 Pulse Oximetry 91 05/27/23 23:24 MDM - Abdominal Pain Medical Decision Making Patient presents here with abdominal pain patient's pending labs and imaging care turned over to Dr. Magana for disposition pending labs and imaging Medical Records I reviewed the patient's medical records. Lab Data I reviewed the patient's lab results. 05/27/23 22:08 05/27/23 22:08 Labs/Radiology: Radiology Impressions Abdomen/Pelvis CT 05/27/23 21:02 IMPRESSION: 1. No bowel obstruction or inflammatory process associated with the bowel. 2. No free air or significant free fluid in the abdomen or pelvis. 3. The appendix is absent. 4. No hydronephrosis or renal calculus. No stone in the bladder. Laboratory Results WBC 8.61 10^3/uL (3.29-11.43) 05/27/23 22:08 RBC 4.21 10^6/uL (3.85-5.65) 05/27/23 22:08 Hgb 12.10 g/dL (11.27-16.99) 05/27/23 22:08 Hct 39.6 % (36-47) 05/27/23 22:08 MCV 94.1 fl (85-98) 05/27/23 22:08 MCH 28.7 pg (27-33) 05/27/23 22:08 MCHC 30.6 g/dL (30-55) 05/27/23 22:08 RDW 12.6 % (12.1-15.1) 05/27/23 22:08 Plt Count 266 10^3/cmm (157-399) 05/27/23 22:08 MPV 10.8 fL (7.4-10.4) H 05/27/23 22:08 Neut % (Auto) 55.0 % 05/27/23 22:08 Lymph % (Auto) 31.5 % 05/27/23 22:08 [place] % (Auto) 8.6 % 05/27/23 22:08 Eos % (Auto) 3.9 % 05/27/23 22:08 Baso % (Auto) 0.9 % 05/27/23 22:08 Neut # (Auto) 4.73 10^3/uL (1.8-7.7) 05/27/23 22:08 Lymph # (Auto) 2.7 10^3/uL (0.8-4.8) 05/27/23 22:08 [place] # (Auto) 0.7 10^3/uL (0.2-0.9) 05/27/23 22:08 Eos # (Auto) 0.3 10^3/uL (0.0-0.8) 05/27/23 22:08 Baso # (Auto) 0.1 10^3/uL (0.0-0.1) 05/27/23 22:08 Nucleated RBC % (auto) 0 % 05/27/23 22:08 Nucleated RBCs # 0.0 /100WBC 05/27/23 22:08 Sodium 138 mmol/L (136-145) 05/27/23 22:08 Potassium 4.4 mmol/L (3.5-5.1) 05/27/23 22:08 Chloride 98 mmol/L (98-107) 05/27/23 22:08 Carbon Dioxide 32 mmol/L (22-29) H 05/27/23 22:08 Anion Gap 12.4 (5-19) 05/27/23 22:08 BUN 15 mg/dL (6-20) 05/27/23 22:08 Creatinine 1.0 mg/dL (0.5-0.9) H 05/27/23 22:08 GFR Calculation 56.9 mL/min (90-130) L 05/27/23 22:08 Glucose 104 mg/dL (65-115) 05/27/23 22:08 Calculated Osmolality 287 mOsm/kg (285-295) 05/27/23 22:08 Calcium 9.0 mg/dL (8.5-10.5) 05/27/23 22:08 Total Bilirubin 0.9 mg/dL (0.15-1.2) 05/27/23 22:08 AST 22 U/L (0-32) 05/27/23 22:08 ALT 9 U/L (0-33) 05/27/23 22:08 Alkaline Phosphatase 102 U/L (35-105) 05/27/23 22:08 Total Protein 6.6 g/dL (6.6-8.7) 05/27/23 22:08 Albumin 3.8 g/dL (3.5-5.2) 05/27/23 22:08 Globulin 2.8 g/dL (1.3-4.6) 05/27/23 22:08 Lipase 46 U/L (13-60) 05/27/23 22:08 Urine Color Yellow (Yellow) 05/28/23 00:00 Urine Appearance Clear (CLEAR) 05/28/23 00:00 Urine pH 5 (5-7) 05/28/23 00:00 Ur Specific [place] 1.010 (1.005-1.030) 05/28/23 00:00 Urine Protein Neg (Negative) 05/28/23 00:00 Urine Glucose (UA) Norm (Normal) 05/28/23 00:00 Urine Ketones Negative (Negative) 05/28/23 00:00 Urine Blood Neg (Negative) 05/28/23 00:00 Urine Nitrate Negative (Negative) 05/28/23 00:00 Urine Bilirubin Neg (Negative) 05/28/23 00:00 Urine Urobilinogen Neg mg/dL (Negative) 05/28/23 00:00 Ur Leukocyte Esterase Negative (Negative) 05/28/23 00:00 All radiology interpretation(s) finalized by discharge Discharge Plan Discharge Patient Disposition: Home Clinical Impression: Abdominal pain Qualifiers: Abdominal location: left lower quadrant Qualified Code(s): R10.32 - Left lower quadrant pain Condition: Stable Prescriptions: No Action levetiracetam 250 mg tablet 250 mg PO BID aspirin [Adult Aspirin Regimen] 81 mg tablet,delayed release (DR/EC) 81 mg PO QAM albuterol sulfate [ProAir HFA] 90 mcg/actuation HFA aerosol inhaler 2 puff INHALATION Q6H PRN (Reason: Shortness Of Breath) atorvastatin 20 mg tablet 20 mg PO BEDTIME magnesium oxide 500 mg tablet 500 mg PO DAILY acetaminophen 500 mg capsule 500 mg PO Q6H PRN (Reason: Pain) bumetanide 2 mg tablet 2 mg PO DAILY Qty: 90 3RF metoprolol succinate 50 mg tablet extended release 24 hr 75 mg PO BID Qty: 180 3RF potassium chloride 20 mEq tablet,ER particles/crystals See Rx Instructions .ROUTE .COMPLEX Qty: 90 3RF Dose Instruction: TAKE 1 TABLET BY MOUTH EVERY DAY Rx Instructions: TAKE 1 TABLET BY MOUTH EVERY DAY hydroxyzine HCl 10 mg Tablet 10 mg PO TID PRN (Reason: Anxiety) spironolactone 25 mg tablet 25 mg PO DAILY trazodone 50 mg tablet 100 mg PO BEDTIME duloxetine 60 mg capsule,delayed release(DR/EC) 60 mg PO DAILY cetirizine 10 mg tablet 10 mg PO DAILY albuterol sulfate 2.5 mg /3 mL (0.083 %) solution for nebulization 2.5 mg inhalation QID PRN (Reason: SHORTNESS OF BREATH) ondansetron HCl 4 mg tablet 4 mg PO Q6H PRN (Reason: nausea and vomiting) Qty: 20 0RF sucralfate 1 gram tablet 1 g PO TID levothyroxine 100 mcg tablet 100 mcg PO DAILY montelukast 10 mg tablet 10 mg PO DAILY pantoprazole [Protonix] 40 mg tablet,delayed release (DR/EC) 40 mg PO DAILY gabapentin 300 mg capsule 300 mg PO TID Discharge Orders: Discharge ED (Routine); Ordered 05/28/23 Ordered By: Zach Magana Referrals: Akila Rivera DO [Primary Care Provider] - 4-7 days Discharge Diet: Advance as tolerated Discharge Activity: Resume usual activity Patient Instructions: Abdominal Pain (ED) Activity Restrictions/Additional Instructions: Your evaluation in ER did not show any acute cause of your abdominal pain. Please follow-up with your family practice physician for further evaluation testing as needed. 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 Other Adopted Social History Smoking and tobacco/nicotine status: former use of tobacco/nicotine Quit status (tobacco/nicotine): has quit using Year quit tobacco: 2019 - 1-5 ciggs/day Alcohol intake: never Substance/Drug Use: never Lives independently: Yes Household members: none Housing: Apartment Current occupational status: disabled Do you think of yourself as: Straight/Heterosexual Current gender identity: Female Course 2 Vital Signs: Vital signs: Vital Signs Temperature 98 F 05/27/23 20:48 Pulse Rate 58 L 05/27/23 23:24 Respiratory Rate 20 H 05/27/23 20:48 Blood Pressure 122/52 05/27/23 23:24 Pulse Oximetry 91 05/27/23 23:24 MDM - Abdominal Pain Medical Decision Making Patient presents here with abdominal pain patient's pending labs and imaging care turned over to Dr. Magana for disposition pending labs and imaging Lab work reviewed as well as abdomen pelvis CT scan, all of which showed no acute findings. Patient be discharged home to follow-up with her PCP within next 7 days for further evaluation and treatment. Lab Data 05/27/23 22:08 05/27/23 22:08 Labs/Radiology: Radiology Impressions Abdomen/Pelvis CT 05/27/23 21:02 IMPRESSION: 1. No bowel obstruction or inflammatory process associated with the bowel. 2. No free air or significant free fluid in the abdomen or pelvis. 3. The appendix is absent. 4. No hydronephrosis or renal calculus. No stone in the bladder. Laboratory Results WBC 8.61 10^3/uL (3.29-11.43) 05/27/23 22:08 RBC 4.21 10^6/uL (3.85-5.65) 05/27/23 22:08 Hgb 12.10 g/dL (11.27-16.99) 05/27/23 22:08 Hct 39.6 % (36-47) 05/27/23 22:08 MCV 94.1 fl (85-98) 05/27/23 22:08 MCH 28.7 pg (27-33) 05/27/23 22:08 MCHC 30.6 g/dL (30-55) 05/27/23 22:08 RDW 12.6 % (12.1-15.1) 05/27/23 22:08 Plt Count 266 10^3/cmm (157-399) 05/27/23 22:08 MPV 10.8 fL (7.4-10.4) H 05/27/23 22:08 Neut % (Auto) 55.0 % 05/27/23 22:08 Lymph % (Auto) 31.5 % 05/27/23 22:08 [place] % (Auto) 8.6 % 05/27/23 22:08 Eos % (Auto) 3.9 % 05/27/23 22:08 Baso % (Auto) 0.9 % 05/27/23 22:08 Neut # (Auto) 4.73 10^3/uL (1.8-7.7) 05/27/23 22:08 Lymph # (Auto) 2.7 10^3/uL (0.8-4.8) 05/27/23 22:08 [place] # (Auto) 0.7 10^3/uL (0.2-0.9) 05/27/23 22:08 Eos # (Auto) 0.3 10^3/uL (0.0-0.8) 05/27/23 22:08 Baso # (Auto) 0.1 10^3/uL (0.0-0.1) 05/27/23 22:08 Nucleated RBC % (auto) 0 % 05/27/23 22:08 Nucleated RBCs # 0.0 /100WBC 05/27/23 22:08 Sodium 138 mmol/L (136-145) 05/27/23 22:08 Potassium 4.4 mmol/L (3.5-5.1) 05/27/23 22:08 Chloride 98 mmol/L (98-107) 05/27/23 22:08 Carbon Dioxide 32 mmol/L (22-29) H 05/27/23 22:08 Anion Gap 12.4 (5-19) 05/27/23 22:08 BUN 15 mg/dL (6-20) 05/27/23 22:08 Creatinine 1.0 mg/dL (0.5-0.9) H 05/27/23 22:08 GFR Calculation 56.9 mL/min (90-130) L 05/27/23 22:08 Glucose 104 mg/dL (65-115) 05/27/23 22:08 Calculated Osmolality 287 mOsm/kg (285-295) 05/27/23 22:08 Calcium 9.0 mg/dL (8.5-10.5) 05/27/23 22:08 Total Bilirubin 0.9 mg/dL (0.15-1.2) 05/27/23 22:08 AST 22 U/L (0-32) 05/27/23 22:08 ALT 9 U/L (0-33) 05/27/23 22:08 Alkaline Phosphatase 102 U/L (35-105) 05/27/23 22:08 Total Protein 6.6 g/dL (6.6-8.7) 05/27/23 22:08 Albumin 3.8 g/dL (3.5-5.2) 05/27/23 22:08 Globulin 2.8 g/dL (1.3-4.6) 05/27/23 22:08 Lipase 46 U/L (13-60) 05/27/23 22:08 Urine Color Yellow (Yellow) 05/28/23 00:00 Urine Appearance Clear (CLEAR) 05/28/23 00:00 Urine pH 5 (5-7) 05/28/23 00:00 Ur Specific [place] 1.010 (1.005-1.030) 05/28/23 00:00 Urine Protein Neg (Negative) 05/28/23 00:00 Urine Glucose (UA) Norm (Normal) 05/28/23 00:00 Urine Ketones Negative (Negative) 05/28/23 00:00 Urine Blood Neg (Negative) 05/28/23 00:00 Urine Nitrate Negative (Negative) 05/28/23 00:00 Urine Bilirubin Neg (Negative) 05/28/23 00:00 Urine Urobilinogen Neg mg/dL (Negative) 05/28/23 00:00 Ur Leukocyte Esterase Negative (Negative) 05/28/23 00:00 Discharge Plan Discharge Patient Disposition: Home Clinical Impression: Abdominal pain Qualifiers: Abdominal location: left lower quadrant Qualified Code(s): R10.32 - Left lower quadrant pain Condition: Stable Prescriptions: No Action levetiracetam 250 mg tablet 250 mg PO BID aspirin [Adult Aspirin Regimen] 81 mg tablet,delayed release (DR/EC) 81 mg PO QAM albuterol sulfate [ProAir HFA] 90 mcg/actuation HFA aerosol inhaler 2 puff INHALATION Q6H PRN (Reason: Shortness Of Breath) atorvastatin 20 mg tablet 20 mg PO BEDTIME magnesium oxide 500 mg tablet 500 mg PO DAILY acetaminophen 500 mg capsule 500 mg PO Q6H PRN (Reason: Pain) bumetanide 2 mg tablet 2 mg PO DAILY Qty: 90 3RF metoprolol succinate 50 mg tablet extended release 24 hr 75 mg PO BID Qty: 180 3RF potassium chloride 20 mEq tablet,ER particles/crystals See Rx Instructions .ROUTE .COMPLEX Qty: 90 3RF Dose Instruction: TAKE 1 TABLET BY MOUTH EVERY DAY Rx Instructions: TAKE 1 TABLET BY MOUTH EVERY DAY hydroxyzine HCl 10 mg Tablet 10 mg PO TID PRN (Reason: Anxiety) spironolactone 25 mg tablet 25 mg PO DAILY trazodone 50 mg tablet 100 mg PO BEDTIME duloxetine 60 mg capsule,delayed release(DR/EC) 60 mg PO DAILY cetirizine 10 mg tablet 10 mg PO DAILY albuterol sulfate 2.5 mg /3 mL (0.083 %) solution for nebulization 2.5 mg inhalation QID PRN (Reason: SHORTNESS OF BREATH) ondansetron HCl 4 mg tablet 4 mg PO Q6H PRN (Reason: nausea and vomiting) Qty: 20 0RF sucralfate 1 gram tablet 1 g PO TID levothyroxine 100 mcg tablet 100 mcg PO DAILY montelukast 10 mg tablet 10 mg PO DAILY pantoprazole [Protonix] 40 mg tablet,delayed release (DR/EC) 40 mg PO DAILY gabapentin 300 mg capsule 300 mg PO TID Discharge Orders: Discharge ED (Routine); Ordered 05/28/23 Ordered By: Zach Magana Referrals: Akila Rivera DO [Primary Care Provider] - 4-7 days Discharge Diet: Advance as tolerated Discharge Activity: Resume usual activity Patient Instructions: Abdominal Pain (ED) Activity Restrictions/Additional Instructions: Your evaluation in ER did not show any acute cause of your abdominal pain. Please follow-up with your family practice physician for further evaluation testing as needed. Coding Level of Care Code ED Sales Account Executive for Dc Serrato
--- NOTE | 2023-05-27 21:02 | CTR_ITS ---
PROCEDURE INFORMATION: Exam: CT Abdomen And Pelvis Without Contrast Exam date and time: 05/27/2023 9:53 PM Age: 57 years old Clinical indication: Abdominal pain; Prior surgery; Surgery date: 6+ months; Surgery type: Gb. Csection; Patient HX: C/O left flank/llq pain. TECHNIQUE: Imaging protocol: Computed tomography of the abdomen and pelvis without contrast. Radiation optimization: All CT scans at this facility use at least one of these dose optimization techniques: automated exposure control; mA and/or kV adjustment per patient size (includes targeted exams where dose is matched to clinical indication); or iterative reconstruction. COMPARISON: CT kidney stone [id number] 06/21/2021 8:42 PM RADIATION DOSE METRICS: Total DLP (mGy-cm): 997.56 FINDINGS: Liver: Normal. No mass. Gallbladder and bile ducts: The gallbladder is absent. Pancreas: Normal. No ductal dilation. Spleen: Normal. No splenomegaly. Adrenal glands: Normal. No mass. Kidneys and ureters: Normal. No hydronephrosis. Stomach and bowel: Unremarkable. No obstruction. No mucosal thickening. Appendix: The appendix is absent. Intraperitoneal space: Unremarkable. No free air. No significant fluid collection. Vasculature: Unremarkable. No abdominal aortic aneurysm. Lymph nodes: Unremarkable. No enlarged lymph nodes. Urinary bladder: Unremarkable as visualized. Reproductive: Unremarkable as visualized. Bones/joints: Unremarkable. No acute fracture. Soft tissues: Unremarkable. CT/CT kidney stone [id number] IMPRESSION: 1. No bowel obstruction or inflammatory process associated with the bowel. 2. No free air or significant free fluid in the abdomen or pelvis. 3. The appendix is absent. 4. No hydronephrosis or renal calculus. No stone in the bladder.
[2023-05-27 21:24] VITALS: PULSE 62; O2SAT 98
[2023-05-27 22:47] LABS: Basophils # 0.1 10^3/uL (0.0-0.1); Basophils % 0.9 %; Eosinophils # 0.3 10^3/uL (0.0-0.8); Eosinophils % 3.9 %; Hematocrit 39.6 % (36-47); Lymphocytes # 2.7 10^3/uL (0.8-4.8); Lymphocytes % 31.5 %; Mean Corpuscular HGB Conc 30.6 g/dL (30-55); Mean Corpuscular Hemoglobin 28.7 pg (27-33); Mean Corpuscular Volume 94.1 fl (85-98); Mean Platelet Volume 10.8 fL (7.4-10.4); Monocytes # 0.7 10^3/uL (0.2-0.9); Monocytes % 8.6 %; Neutrophils # 4.73 10^3/uL (1.8-7.7); Nucleated Red Blood Cells % 0 %; Platelet Count 266 10^3/cmm (157-399); Red Blood Count 4.21 10^6/uL (3.85-5.65); Red Cell Distribution Width 12.6 % (12.1-15.1); White Blood Count 8.61 10^3/uL (3.29-11.43)
[2023-05-27] MEDS: HYDROcodone-acetaminophen 7.5-325 mg Tablet 1 TAB PO (22:56)
[2023-05-27] MEDS: ondansetron 4 MG Tablet PO (22:56)
[2023-05-27 23:18] LABS: Alanine Aminotransferase 9 U/L (0-33); Albumin Level 3.8 g/dL (3.5-5.2); Alkaline Phosphatase 102 U/L (35-105); Aspartate Amino Transferase 22 U/L (0-32); Blood Urea Nitrogen 15 mg/dL (6-20); Carbon Dioxide 32 mmol/L (22-29); Chloride 98 mmol/L (98-107); Creatinine Clr Calc Pharmacy 70.9074; Globulin 2.8 g/dL (1.3-4.6); Glomerular Filtration Rate 56.9 mL/min (90-130); Glucose 104 mg/dL (65-115); Lipase 46 U/L (13-60); Osmolality Calculated 287 mOsm/kg (285-295); Sodium 138 mmol/L (136-145); Total Bilirubin 0.9 mg/dL (0.15-1.2); Total Protein 6.6 g/dL (6.6-8.7)
[2023-05-27 23:20] LABS: Anion Gap 12.4 (5-19); Potassium 4.4 mmol/L (3.5-5.1)
[2023-05-27 23:24] VITALS: BP 122/52; PULSE 58; O2SAT 91
[2023-05-28 00:10] LABS: Add Urine Microscopic? NO; Charge for UA Resulting for Rev
[2023-05-28 00:15] LABS: Bilirubin Urine Neg (Negative); Blood Urine Neg (Negative); Glucose Urine UA Norm (Normal); Ketones Urine Negative (Negative); Leukocyte Esterase Urine Negative (Negative); Nitrate Urine Negative (Negative); Protein Urine Neg (Negative); Urine Appearance Clear (CLEAR); Urine Color Yellow (Yellow); Urobilinogen Urine Neg (Negative); pH Urine 5 (5-7)
[2023-05-28 00:38] VITALS: PULSE 87; O2SAT 91
== END 2023-05-28 00:40 | disposition home or self-care (01) ==
PROVIDERS: Emergency Provider Emergency Medicine; PCP Family Medicine
DX: R10.32 Left lower quadrant pain (principal); Z79.82 Long term (current) use of aspirin; Z87.891 Personal history of nicotine dependence; I11.0 Hypertensive heart disease with heart failure; I50.30 Unspecified diastolic (congestive) heart failure; J44.9 Chronic obstructive pulmonary disease, unspecified
CPT/HCPCS: 74176; 80053; 81003; 83690; 85025; 99285; Q0162

== ENCOUNTER 2023-06-08 20:57 | Observation (INO) | payer MEDICARE, MEDICAID, SELFPAY ==
[2023-06-08 20:58] VITALS: BP 155/74; PULSE 65; RESP 18; TEMP 36.6; O2SAT 94
--- NOTE | 2023-06-08 21:03 | CTR_ITS ---
PROCEDURE INFORMATION: Exam: CT Head Without Contrast Exam date and time: 06/08/2023 9:01 PM Age: 57 years old Clinical indication: Stroke-like symptoms; Altered mental status/memory loss; Additional info: Stroke alert TECHNIQUE: Imaging protocol: Computed tomography of the head without contrast. Radiation optimization: All CT scans at this facility use at least one of these dose optimization techniques: automated exposure control; mA and/or kV adjustment per patient size (includes targeted exams where dose is matched to clinical indication); or iterative reconstruction. Other technique: STROKE PROTOCOL was implemented. COMPARISON: CT head wo con* [id number] 11/25/2022 5:51 PM RADIATION DOSE METRICS: Total DLP (mGy-cm): 909 FINDINGS: Brain: Normal. No hemorrhage. Unremarkable white matter. No mass effect. Cerebral ventricles: No ventriculomegaly. Paranasal sinuses: Visualized sinuses are unremarkable. No fluid levels. Mastoid air cells: Visualized mastoid air cells are well aerated. Bones: Unremarkable. No acute fracture. Soft tissues: Unremarkable. CT/CT head wo con* [id number] IMPRESSION: No acute intracranial abnormality. ASSESSMENT: ASPECTS ([facility] Stroke Program Early CT Score) is 10.
--- NOTE | 2023-06-08 21:10 | ECG_ITS ---
[facility] Test Date: 2023-06-08 Pat Name: Crystal Pierre Department: Room: 256 Gender: Female Branch Operations Specialist: : [id number] Requested By: Zach Magana Order Number: [id number] Clemencia MD: Funmilayo De La Rosa M.D. Measurements Intervals [place] Rate: 56 P: 64 SD: 147 QRS: 52 QRSD: 103 T: 56 QT: 433 QTc: 418 Interpretive Statements SINUS BRADYCARDIA Compared to ECG 03/17/2023 14:33:01 Sinus rhythm no longer present Electronically Signed On 06-08-2023 23:09:06 CDT by Funmilayo De La Rosa M.D. [id number]
--- NOTE | 2023-06-08 21:25 | ED_ITS ---
HPI - Neuro Symptoms/Deficit 2 General: Chief Complaint: Neuro Symptoms/Deficit Stated Complaint: Stroke alert Time Seen by Provider: 06/08/23 21:10 History of Present Illness: Patient was brought in via EMS for strokelike symptoms. EMS stated they were called out for seizure and and then when he got there they was told she had a sudden change in her mentation. The sudden changes noted by a friend about an hour prior to arrival to the ER. They noticed slurring of speech bilateral weakness, blood glucose of 110. Patient did stand up pivot and turn from the CT scanner to the caulk with no assistance. Patient was taken to CT immediately. Dr. Gonzales was available for evaluation in ER. 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 Other Adopted Social History Smoking and tobacco/nicotine status: former use of tobacco/nicotine Quit status (tobacco/nicotine): has quit using Year quit tobacco: 2019 - 1-5 ciggs/day Alcohol intake: never Substance/Drug Use: never Lives independently: Yes Household members: none Housing: Apartment Current occupational status: disabled Do you think of yourself as: Straight/Heterosexual Current gender identity: Female NIH stroke score 2 NIHSS: Level Of Consciousness - 1a: 0 Level Of Consciousness Questions - 1b: Both Correct Level Of Consciousness Commands - 1c: Both Correct Best Gaze - 2: Normal Visual Sal - 3: No Visual Loss Facial Palsy - 4: N ormal Motor Arm Right - 5: No Drift Motor Arm Left - 5: No Drift Motor Leg Right - 6: No Drift Motor Leg Left - 6: No Drift Limb Ataxia - 7: A bsent Sensory - 8: Normal Best Language - 9: No Aphasia Dysarthia - 10: Normal Extinction And Inattention - 11: 0 Score: Total Score: 0 Physical Exam 2 Const: COMMON NORMALS: no acute distress, average body habitus, patient oriented x3, no limitations, healthy appearing, alert and well nourished HENMT: COMMON NORMALS: normocephalic, atraumatic, hearing grossly normal bilaterally, external ears normal, Normal external nose present, moist oral mucous membranes and oropharynx normal HEAD & SCALP: normocephalic and atraumatic NOSE: Normal external nose present EXTERNAL EAR: Yes external ears normal Eye: COMMON NORMALS: Equal, round and reactive pupils present, EOMs intact bilaterally, conjunctivae normal and no scleral icterus CONJUNCTIVA: Yes conjunctivae normal PUPIL: Yes Equal, round and reactive pupils present Neck/C-Spine: COMMON NORMALS: full ROM, no lymphadenopathy, supple, no meningeal signs, no JVD and Thyroid normal THYROID: Thyroid normal Chest: COMMONS NORMALS: normal inspection of the chest and normal palpation of entire chest wall Resp: COMMON NORMALS: normal respiratory effort, No retractions and No use of accessory muscles Cardio: COMMON NORMALS: no JVD, regular rate, regular rhythm, S1 normal heart sound present, S2 normal heart sound present, No gallops present (Cardio), No clicks present (Cardio), No murmurs present (Cardio) and No rub (Cardio) R ATE: regular rate RHYTHM: regular rhythm HEART SOUNDS: S1 normal heart sound present and S2 normal heart sound present GI: COMMON NORMALS: Normal to inspection, nondistended, normoactive bowel sounds present, Soft to palpation, non-tender, No hepatosplenomegaly present and no masses PALPATION: Yes Soft to palpation and Yes No hepatosplenomegaly present Neuro: COMMON NORMALS: patient oriented x3 SENSORIUM/ORIENTATION: Yes alert MENINGEAL SIGNS: Yes no meningeal signs Course 2 Vital Signs: Vital signs: Vital Signs Temperature 97.8 F 06/08/23 23:59 Pulse Rate 61 06/08/23 23:59 Respiratory Rate 16 06/08/23 23:59 Blood Pressure 116/72 06/08/23 23:59 Pulse Oximetry 100 06/08/23 23:59 Oxygen Delivery Me thod Nasal Cannula 06/08/23 23:09 Oxygen Flow Rate 2 06/08/23 23:09 MDM - Neuro Symptoms/Deficit Medical Decision Making Dr. Gonzales at bedside for evaluation and he gives her an NIH of 0, Dr. Gonzales recommended admission for observation and neck to complete the rest of the CVA workup. Dr. Dunbar was consulted who agreed to place patient in [facility] with telemetry. Differential Diagnosis Unlikely carpal tunnel syndrome, convulsions, delirium, subarachnoid hemorrhage, peripheral neuropathy, cerebrovascular accident, multiple sclerosis or transient cerebral ischemia Medical Records I reviewed the patient's medical records. Lab Data I reviewed the patient's lab results. 06/08/23 21:21 06/08/23 21:[address] 06/08/23 21:03 IMPRESSION: No acute intracranial abnormality. ASSESSMENT: ASPECTS (Chanelle Stroke Program Early CT Score) is 10. Laboratory Results WBC 8.70 10^3/uL (3.29-11.43) 06/08/23 21:21 RBC 4.66 10^6/uL (3.85-5.65) 06/08/23 21:21 Hgb 13.30 g/dL (11.27-16.99) 06/08/23 21:21 Hct 43.2 % (36-47) 06/08/23 21:21 MCV 92.7 fl (85-98) 06/08/23 21:21 MCH 28.5 pg (27-33) 06/08/23 21:21 MCHC 30.8 g/dL (30-55) 06/08/23 21:21 RDW 12.4 % (12.1-15.1) 06/08/23 21:21 Plt Count 284 10^3/cmm (157-399) 06/08/23 21:21 MPV 10.3 fL (7.4-10.4) 06/08/23 21:21 Neut % (Auto) 56.2 % 06/08/23 21:21 Lymph % (Auto) 29.2 % 06/08/23 21:21 [place] % (Auto) 9.5 % 06/08/23 21:21 Eos % (Auto) 3.6 % 06/08/23 21:21 Baso % (Auto) 1.3 % 06/08/23 21:21 Neut # (Auto) 4.89 10^3/uL (1.8-7.7) 06/08/23 21:21 Lymph # (Auto) 2.5 10^3/uL (0.8-4.8) 06/08/23 21:21 [place] # (Auto) 0.8 10^3/uL (0.2-0.9) 06/08/23 21:21 Eos # (Auto) 0.3 10^3/uL (0.0-0.8) 06/08/23 21:21 Baso # (Auto) 0.1 10^3/uL (0.0-0.1) 06/08/23 21:21 Nucleated RBC % (auto) 0 % 06/08/23 21:21 Nucleated RBCs # 0.0 /100WBC 06/08/23 21:21 PT 12.60 SECONDS (12.1-14.9) 06/08/23 21:21 INR 0.92 (0.8-1.2) 06/08/23 21:21 APTT 30.0 SECONDS (23.9-36.7) 06/08/23 21:21 Specimen Type Arterial 06/08/23 22:35 Sample Site Brachial, left 06/08/23 22:35 ABG pH 7.37 (7.35-7.45) 06/08/23 22:35 ABG pCO2 64.3 mmHg (35-45) H* 06/08/23 22:35 ABG pO2 52.7 mmHg (80.0-100.0) L 06/08/23 22:35 ABG PO2/FiO2 Ratio 0 06/08/23 22:35 ABG HCO3 37.5 mmol/L (22-26) H 06/08/23 22:35 ABG Base Excess 9.8 mmol/L (-2.0-2.0) H 06/08/23 22:35 Nestor Test Pos 06/08/23 22:35 Hematocrit 39.9 % (37-47) 06/08/23 22:35 O2 Delivery Device None 06/08/23 22:35 FiO2 21.0 % 06/08/23 22:35 Head Of Talent Management ID [email or web address] 06/08/23 22:35 Sodium 140 mmol/L (136-145) 06/08/23 21:21 Potassium 4.2 mmol/L (3.5-5.1) 06/08/23 21:21 Chloride 95 mmol/L (98-107) L 06/08/23 21:21 Carbon Dioxide 36 mmol/L (22-29) H 06/08/23 21:21 Anion Gap 13.2 (5-19) 06/08/23 21:21 BUN 19 mg/dL (6-20) 06/08/23 21:21 Creatinine 0.9 mg/dL (0.5-0.9) 06/08/23 21:21 GFR Calculation 64.3 mL/min (90-130) L 06/08/23 21:21 Glucose 113 mg/dL (65-115) 06/08/23 21:21 Calculated Osmolality 293 mOsm/kg (285-295) 06/08/23 21:21 Calcium 9.6 mg/dL (8.5-10.5) 06/08/23 21:21 Magnesium 2.3 mg/dL (1.7-2.3) 06/08/23 21:21 Total Bilirubin 0.9 mg/dL (0.15-1.2) 06/08/23 21:21 AST 18 U/L (0-32) 06/08/23 21:21 ALT 11 U/L (0-33) 06/08/23 21:21 Alkaline Phosphatase 108 U/L (35-105) H 06/08/23 21:21 Creatine Kinase 111 U/L (26-192) 06/08/23 21:21 Troponin T Baseline 15 ng/L (0-10) H 06/08/23 21:21 C-Reactive Protein 3.0 mg/L (0.0-4.9) 06/08/23 21:21 NT-Pro-B Natriuret Pep 181 pg/mL (0-125) H 06/08/23 21:21 Total Protein 7.3 g/dL (6.6-8.7) 06/08/23 21:21 Albumin 4.5 g/dL (3.5-5.2) 06/08/23 21:21 Globulin 2.8 g/dL (1.3-4.6) 06/08/23 21:21 TSH 10.86 uIU/mL (0.27-4.20) H 06/08/23 21:21 Urine Color Yellow (Yellow) 06/08/23 21:39 Urine Appearance Hazy (CLEAR) A 06/08/23 21:39 Urine pH 6 (5-7) 06/08/23 21:39 Ur Specific Rodman 1.010 (1.005-1.030) 06/08/23 21:39 Urine Protein Neg (Negative) 06/08/23 21:39 Urine Glucose (UA) Norm (Normal) 06/08/23 21:39 Urine Ketones Negative (Negative) 06/08/23 21:39 Urine Blood 2+ (Negative) H 06/08/23 21:39 Urine Nitrate Negative (Negative) 06/08/23 21:39 Urine Bilirubin Neg (Negative) 06/08/23 21:39 Urine Urobilinogen Neg mg/dL (Negative) 06/08/23 21:39 Ur Leukocyte Esterase Trace (Negative) H 06/08/23 21:39 Urine RBC 5-10 /hpf (0-2) H 06/08/23 21:39 Urine WBC 0-4 /hpf (0-5) H 06/08/23 21:39 Ur Squamous Epith Cells 0-4 /hpf (0-5) H 06/08/23 21:39 Amorphous Sediment Not Reportable 06/08/23 21:39 Urine Bacteria 3+ /hpf (NONE) H 06/08/23 21:39 Urine Mucus 2+ /hpf 06/08/23 21:39 Urine Opiates Screen Negative ng/mL (Negative) 06/08/23 21:39 Ur Barbiturates Screen Negative ng/mL (Negative) 06/08/23 21:39 Ur Phencyclidine Scrn Negative ng/mL (Negative) 06/08/23 21:39 Ur Amphetamines Screen Negative ng/mL (Negative) 06/08/23 21:39 U Benzodiazepines Scrn Negative ng/mL (Negative) 06/08/23 21:39 Urine Cocaine Screen Negative ng/mL (Negative) 06/08/23 21:39 U Marijuana (THC) Screen Negative ng/mL (Negative) 06/08/23 21:39 All radiology interpretation(s) finalized by discharge Discharge Plan Discharge Patient Disposition: Placed in Observation Admit Provider: Brennen Torres Clinical Impression: Acute alteration in mental status, Brain TIA Coding Level of Care Code ED Video Arcade Manager for Dc Serrato
--- NOTE | 2023-06-08 21:27 | P.CONIM_ITS ---
Providers/Reason For Consult Consulting Physician/Specialty*: Abhay Gonzales MD neurology and epilepsy Reason for Consult*: Code stroke emergency department room #11/acute care Primary Care Provider: Akila Rivera DO History of Present Illness History of Present Illness Crystal Pierre is a 57 year old female with a history of chronic obstructive airway disease, acute respiratory failure with hypoxia and hypercapnia, asthma, essential hypertension, diastolic heart failure, moderate aortic regurgitation, lower extremity edema, sleep apnea, supraventricular tachycardia, hypothyroidism and cervical disc disease. The patient stated that she had returned home from playing bingo at the care facility where she lives. Patient was reported to be sitting in the chair and was shaking and reported to be Out of it for a few moments at 8:15 PM on 06/08/2023. Code stroke was initiated at 8:49 PM on 06/08/2023 reporting patient's ETA 10 minutes out from the [facility] emergency room. Stat noncontrast head CT was obtained and revealed no acute findings. Serum Accu-Chek 110. NIH score =0. Drug allergies: Chlorpromazine which resulted in a rash Diphenhydramine type reaction unknown Iodinated contrast medium which resulted in hives Tramadol type reaction unknown Amoxicillin which resulted in nausea Codeine which resulted in nausea and vomiting Penicillins which resulted in nausea and vomiting Current medications: Tylenol 500 mg p.o. every 6 hours as needed for pain Albuterol sulfate 2.5 mg inhalation 4 times a day as needed for shortness of breath Albuterol sulfate 90 mcg per accusation 2 puffs every 6 hours as needed for shortness of Aspirin 81 mg p.o. daily Lipitor 20 mg p.o. q. evening Bumetanide 2 mg p.o. daily Certirizine 10 mg p.o. daily Cymbalta 60 mg p.o. daily Neurontin 300 mg p.o. 3 times daily Hydroxyzine 10 mg p.o. 3 times daily as needed for anxiety Keppra 250 mg p.o. twice daily Synthroid 100 mcg p.o. q. Magnesium oxide 500 mg p.o. daily Metoprolol 75 mg p.o. twice daily Singulair 10 mg p.o. daily Zofran 4 mg p.o. every 6 hours as needed for nausea vomiting Protonix 40 mg p.o. daily Potassium chloride 20 mill equivalents p.o. daily Spironolactone 25 mg p.o. daily Sucralfate 1 g p.o. 3 times daily Trazodone 100 mg p.o. nightly Past medical history: Chronic obstructive airway disease Acute respiratory failure with hypoxia and hypercapnia Asthma Essential hypertension Diastolic heart failure Moderate aortic regurgitation Lower extremity edema Sleep apnea Supraventricular tachycardia Hypothyroidism Cervical disc disease Habits: The patient smokes 1 to 2 cigarettes/day. Patient denied other drug use. Social history: [facility] Review of Systems General: Reports: 10 or more systems reviewed and unremarkable except in HPI and below Medications/Allergies Home Medications Medication Instructions Recorded Confirmed Last Taken Type albuterol sulfate 90 mcg/actuation 2 puff inhalation Q6H PRN 02/15/19 03/27/23 10/23/19 History aerosol inhaler (ProAir HFA) Shortness Of Breath aspirin 81 mg tablet,delayed 81 mg PO QAM 02/15/19 03/27/23 03/16/23 History release (Adult Aspirin Regimen) levetiracetam 250 mg tablet 250 mg PO BID 02/15/19 03/27/23 03/16/23 History spironolactone 25 mg tablet 25 mg PO DAILY 10/26/20 03/27/23 03/16/23 History hydroxyzine HCl 10 mg tablet 10 mg PO TID PRN Anxiety 01/20/21 03/27/23 Unknown History duloxetine 60 mg capsule,delayed 60 mg PO DAILY 04/05/21 03/27/23 03/16/23 History release trazodone 50 mg tablet 100 mg PO BEDTIME 04/05/21 03/27/23 03/16/23 History atorvastatin 20 mg tablet 20 mg PO BEDTIME 06/17/21 03/27/23 03/16/23 History cetirizine 10 mg tablet 10 mg PO DAILY 01/11/22 03/27/23 03/16/23 History magnesium oxide 500 mg PO DAILY 05/20/22 03/27/23 03/16/23 History acetaminophen 500 mg capsule 500 mg PO Q6H PRN Pain 08/24/22 03/27/23 Unknown History bumetanide 2 mg tablet 2 mg PO DAILY #90 tabs 09/08/22 03/27/23 03/16/23 Rx metoprolol succinate 50 mg 75 mg (1.5 x 50 mg) PO BID #180 12/20/22 03/27/23 03/16/23 Rx tablet,extended release 24 hr tabs ondansetron HCl 4 mg tablet 4 mg PO Q6H PRN nausea and 02/14/23 03/27/23 Unknown Rx vomiting #20 tabs gabapentin 300 mg capsule 300 mg PO TID 03/15/23 03/27/23 03/16/23 History levothyroxine 100 mcg tablet 100 mcg PO DAILY 03/15/23 03/27/23 03/16/23 History montelukast 10 mg tablet 10 mg PO DAILY 03/15/23 03/27/23 03/16/23 History pantoprazole 40 mg tablet,delayed 40 mg PO DAILY 03/15/23 03/27/23 03/16/23 History release (Protonix) sucralfate 1 gram tablet 1 g PO TID 03/15/23 03/27/23 03/16/23 History albuterol sulfate 2.5 mg/3 mL 2.5 mg inhalation QID PRN 03/17/23 03/27/23 Unknown History (0.083 %) solution for nebulization SHORTNESS OF BREATH potassium chloride 20 mEq See Rx Instructions .Route 05/08/23 Unknown Rx tablet,extended release(part/cryst) .COMPLEX #90 tabs Allergies Allergy/AdvReac Type Severity Reaction Status Date / Time chlorpromazine Allergy Unknown ALGY-Rash Verified 04/04/23 19:14 diphenhydramine Allergy Unknown Unknown Verified 04/04/23 19:14 Iodinated Contrast Media Allergy Unknown ALGY-Hives Verified 04/04/23 19:14 tramadol Allergy Unknown Verified 04/04/23 19:14 amoxicillin AdvReac Unknown ADR-Nausea Verified 04/04/23 19:14 codeine AdvReac Unknown ADR-Vomitin Verified 04/04/23 19:14 g Penicillins AdvReac Unknown ADR-Vomitin Verified 04/04/23 19:14 g PFSH Acute PFSH: Medical History Psychiatric care Diastolic heart failure Chest pain Lower extremity edema Atypical chest pain Cervical radiculopathy Pain of hand Diastolic CHF 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 Other Adopted Social History Smoking and tobacco/nicotine status: former use of tobacco/nicotine Quit status (tobacco/nicotine): has quit using Year quit tobacco: 2019 - -5 ciggs/day Alcohol intake: never Substance/Drug Use: never Lives independently: Yes Household members: none Housing: Apartment Current occupational status: disabled Do you think of yourself as: Straight/Heterosexual Current gender identity: Female Vitals/I&O/Wt Last Vital Signs Temp 97.8 F 06/08/23 20:58 Pulse 65 06/08/23 20:58 Resp 18 06/08/23 20:58 BP 155/74 06/08/23 20:58 Pulse Ox 94 06/08/23 20:58 O2 Del Method Room Air 06/08/23 20:58 Physical Exam Narrative: NIH score = 0 Accu-Chek glucose 110 The patient is alert and oriented x 3. Speech fluent. Head normocephalic. Neck supple. Cranial nerves II through XII intact. Pupils 4 mm round reactive to light and accommodation. Extraocular movements intact. There were no nystagmus. Visual odonnell full via confrontation. Motor testing 5/5 bilaterally. There was no drift. Deep tendon reflex revealed plantar responses bilaterally. There was no clonus. Sensory examination was intact to touch. There was no extinction on double sensory stimulation. There was no ataxia obs erved in either the upper or lower extremities. Throat clear. Lungs clear. Heart regular rhythm and rate. Extremities revealed significant lower extremity edema which is a chronic issue for the patient. A&P Assessment and plan (1) TIA (transient ischemic attack): Impression: 1. Code stroke reported to be initiated secondary to patient reporting to experience some shaking and being Out of it with neurological examination unremarkable and NIH score =0. Therefore, patient was not a candidate for thrombolytics and no thrombolytics were administered. Plan: 1. Complete stroke workup per NIH protocol 2. Recommend obtaining carotid duplex study and 2D echocardiogram if not recently performed 3. Follow-up pending metabolic lab 4. Continue Lipitor and aspirin as prescribed 5. Give patient stroke booklet/information Consult Attestations Medical Necessity Statement: The patient was evaluated by neurology for code stroke emergency department room #11/acute care Coding Level of Care Code 68145 Diagnoses TIA (transient ischemic attack) G45.9
[2023-06-08 21:32] LABS: Basophils # 0.1 10^3/uL (0.0-0.1); Basophils % 1.3 %; Eosinophils # 0.3 10^3/uL (0.0-0.8); Eosinophils % 3.6 %; Hematocrit 43.2 % (36-47); Lymphocytes # 2.5 10^3/uL (0.8-4.8); Lymphocytes % 29.2 %; Mean Corpuscular HGB Conc 30.8 g/dL (30-55); Mean Corpuscular Hemoglobin 28.5 pg (27-33); Mean Corpuscular Volume 92.7 fl (85-98); Mean Platelet Volume 10.3 fL (7.4-10.4); Monocytes # 0.8 10^3/uL (0.2-0.9); Monocytes % 9.5 %; Neutrophils # 4.89 10^3/uL (1.8-7.7); Neutrophils % 56.2 %; Nucleated Red Blood Cells % 0 %; Platelet Count 284 10^3/cmm (157-399); Red Blood Count 4.66 10^6/uL (3.85-5.65); Red Cell Distribution Width 12.4 % (12.1-15.1)
[2023-06-08 21:44] LABS: INR 0.92 (0.8-1.2)
[2023-06-08 21:53] LABS: Amphetamines Screen Urine Negative (Negative); Barbiturates Screen Urine Negative (Negative); Benzodiazepines Screen Urine Negative (Negative); Cocaine Screen Urine Negative (Negative); Opiate Screen Urine Negative (Negative); PCP Screen Urine Negative (Negative); THC Screen Urine Negative (Negative)
[2023-06-08 21:54] LABS: Troponin(5th) Baseline 15 ng/L (0-10)
[2023-06-08 21:55] LABS: Alanine Aminotransferase 11 U/L (0-33); Albumin Level 4.5 g/dL (3.5-5.2); Alkaline Phosphatase 108 U/L (35-105); Anion Gap 13.2 (5-19); Aspartate Amino Transferase 18 U/L (0-32); Blood Urea Nitrogen 19 mg/dL (6-20); Calcium 9.6 mg/dL (8.5-10.5); Carbon Dioxide 36 mmol/L (22-29); Chloride 95 mmol/L (98-107); Creatine Phosphokinase 111 U/L (26-192); Globulin 2.8 g/dL (1.3-4.6); Glomerular Filtration Rate 64.3 mL/min (90-130); Glucose 113 mg/dL (65-115); Magnesium 2.3 mg/dL (1.7-2.3); Osmolality Calculated 293 mOsm/kg (285-295); Potassium 4.2 mmol/L (3.5-5.1); Sodium 140 mmol/L (136-145); Total Bilirubin 0.9 mg/dL (0.15-1.2); Total Protein 7.3 g/dL (6.6-8.7)
[2023-06-08 21:58] LABS: Urine Appearance Hazy (CLEAR); Urine Color Yellow (Yellow)
[2023-06-08 21:59] LABS: Add Urine Microscopic? YES; Bilirubin Urine Neg (Negative); Blood Urine 2+ (Negative); Glucose Urine UA Norm (Normal); Ketones Urine Negative (Negative); Leukocyte Esterase Urine Trace (Negative); Nitrate Urine Negative (Negative); Protein Urine Neg (Negative); Urobilinogen Urine Neg (Negative); pH Urine 6 (5-7)
[2023-06-08 22:00] LABS: Add Urine Culture? Yes; Bacteria Urine 3+ /hpf; Mucus Urine 2+ /hpf; Squamous Epithelial Cell Urine 0-4 /hpf (0-5); WBC Urine 0-4 /hpf (0-5)
[2023-06-08 22:05] LABS: NT Pro B Type Natriuretic Pept 181 pg/mL (0-125); Thyroid Stimulating Hormone 10.86 uIU/mL (0.27-4.20)
[2023-06-08 22:44] LABS: ABG PH Result 7.37 (7.35-7.45); Arterial Blood Gas Hematocrit 39.9 % (37-47); Base Excess ABG 9.8 mmol/L (-2.0-2.0); Blood Gas Allen Test Pos; Blood Gas Sample Site Brachial, left; Blood Gas Sample Type Arterial; HCO3 ABG 37.5 mmol/L (22-26); PO2 ABG 52.7 mmHg (80.0-100.0); PO2 FiO2 Ratio Arterial Blood 0
[2023-06-08 22:45] LABS: ABG PCO2 64.3 mmHg (35-45)
--- NOTE | 2023-06-08 22:50 | P.HP_ITS ---
Documented by User: BERT Oseguera STDHANSA 06/08/23 23:55 Providers/Chief Complaint 2 Primary Care Provider: Akila Rivera DO Chief Complaint: Stroke alert History of Present Illness Crystal Pierre is a 57 year old female with past medical history of CHF, COPD, asthma, hypertension, GERD, hypothyroidism and seizure disorder brought to the emergency department with below listed complaints. Mrs. Pierre came in to the emergency department via EMS with chief complaint of dizziness. Patient lives independently in senior housing locally in [place] and reports that she receives home [facility] services currently. She patient states she was with some friends outside smoking around 1999 and began to get very dizzy, she felt like she was going to pass out. Her friend called ambulance for her at this time. Patient stated she had some associated symptoms of shakiness, and shortness of breath as well. Mrs. Pierre states that she has been having this dizziness for about 2 months and can occur 1-2 times a day with episodes lasting approximately 10 minutes. Patient has known history of COPD, sleep apnea, and seizure, she states she wears CPAP at night and nasal cannula oxygen daily. Patient reports her last seizure was about 3 months ago. Patient states she was supposed to see her primary care provider tomorrow morning regarding this issue. Patient currently denies any dizziness, chest pain, shortness of breath. She reports headache, weakness. While in the emergency department a CBC, CMP, ABG, UA, urine culture, toxicology, head CT, and EKG were ordered and obtained. Review of Systems 2 General: Reports: 10 or more systems reviewed and unremarkable except in HPI and below Medications/Allergies Home Medications Medication Instructions Recorded Confirmed Last Taken Type albuterol sulfate 90 mcg/actuation 2 puff inhalation Q6H PRN 02/15/19 03/27/23 10/23/19 History aerosol inhaler (ProAir HFA) Shortness Of Breath aspirin 81 mg tablet,delayed 81 mg PO QAM 02/15/19 03/27/23 03/16/23 History release (Adult Aspirin Regimen) levetiracetam 250 mg tablet 250 mg PO BID 02/15/19 03/27/23 03/16/23 History spironolactone 25 mg tablet 25 mg PO DAILY 10/26/20 03/27/23 03/16/23 History hydroxyzine HCl 10 mg tablet 10 mg PO TID PRN Anxiety 01/20/21 03/27/23 Unknown History duloxetine 60 mg capsule,delayed 60 mg PO DAILY 04/05/21 03/27/23 03/16/23 History release trazodone 50 mg tablet 100 mg PO BEDTIME 04/05/21 03/27/23 03/16/23 History atorvastatin 20 mg tablet 20 mg PO BEDTIME 06/17/21 03/27/23 03/16/23 History cetirizine 10 mg tablet 10 mg PO DAILY 01/11/22 03/27/23 03/16/23 History magnesium oxide 500 mg PO DAILY 05/20/22 03/27/23 03/16/23 History acetaminophen 500 mg capsule 500 mg PO Q6H PRN Pain 08/24/22 03/27/23 Unknown History bumetanide 2 mg tablet 2 mg PO DAILY #90 tabs 09/08/22 03/27/23 03/16/23 Rx metoprolol succinate 50 mg 75 mg (1.5 x 50 mg) PO BID #180 12/20/22 03/27/23 03/16/23 Rx tablet,extended release 24 hr tabs ondansetron HCl 4 mg tablet 4 mg PO Q6H PRN nausea and 02/14/23 03/27/23 Unknown Rx vomiting #20 tabs gabapentin 300 mg capsule 300 mg PO TID 03/15/23 03/27/23 03/16/23 History levothyroxine 100 mcg tablet 100 mcg PO DAILY 03/15/23 03/27/23 03/16/23 History montelukast 10 mg tablet 10 mg PO DAILY 03/15/23 03/27/23 03/16/23 History pantoprazole 40 mg tablet,delayed 40 mg PO DAILY 03/15/23 03/27/23 03/16/23 History release (Protonix) sucralfate 1 gram tablet 1 g PO TID 03/15/23 03/27/23 03/16/23 History albuterol sulfate 2.5 mg/3 mL 2.5 mg inhalation QID PRN 03/17/23 03/27/23 Unknown History (0.083 %) solution for nebulization SHORTNESS OF BREATH potassium chloride 20 mEq See Rx Instructions .Route 05/08/23 Unknown Rx tablet,extended release(part/cryst) .COMPLEX #90 tabs Allergies Allergy/AdvReac Type Severity Reaction Status Date / Time chlorpromazine Allergy Unknown ALGY-Rash Verified 04/04/23 19:14 diphenhydramine Allergy Unknown Unknown Verified 04/04/23 19:14 Iodinated Contrast Media Allergy Unknown ALGY-Hives Verified 04/04/23 19:14 tramadol Allergy Unknown Verified 04/04/23 19:14 amoxicillin AdvReac Unknown ADR-Nausea Verified 04/04/23 19:14 codeine AdvReac Unknown ADR-Vomitin Verified 04/04/23 19:14 g Penicillins AdvReac Unknown ADR-Vomitin Verified 04/04/23 19:14 g PFSH Acute 2 PFSH: Medical History (Updated 06/08/23 @ 23:39 by Brennen Torres MD) Sleep apnea Psychiatric care Diastolic heart failure Chest pain Lower extremity edema Atypical chest pain Cervical radiculopathy Pain of hand Diastolic CHF 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 Other Adopted Social History Smoking and tobacco/nicotine status: former use of tobacco/nicotine Quit status (tobacco/nicotine): has quit using Year quit tobacco: 2019 - 1-5 ciggs/day Alcohol intake: never Substance/Drug Use: never Lives independently: Yes Household members: none Housing: Apartment Current occupational status: disabled Do you think of yourself as: Straight/Heterosexual Current gender identity: Female Vitals/I&O/Wt Last Vital Signs Temp 97.8 F 06/08/23 20:58 Pulse 65 06/08/23 20:58 Resp 18 06/08/23 20:58 BP 155/74 06/08/23 20:58 Pulse Ox 94 06/08/23 20:58 O2 Del Method Room Air 06/08/23 20:58 Physical Exam 2 Narrative: General: Comfortable appearing female, resting in ER [facility], on RA. HEENT: Head atraumatic, normocephalic to visual inspection, neck supple,no thyromegaly noted. Reports double vision, states this is normal for her and she wears glasses to help. CV: Normal rhythm, bradycardia noted, S1-S2 noted, no murmurs rubs or gallops noted. Pulm: Lungs clear to auscultation bilaterally. GI: Obese abdomen, soft, tender in the bilateral lower quadrants. : Deferred. Extremities: Capillary refill <2 seconds, 2+ edema noted bilateral lower extremities. NEURO: alert and orientated x 3, with slowed speech Data 06/08/23 21:21 06/08/23 21:21 Other Labs: ABG: PH 7.37, pCO2 64.3, pO2 25.7, HCO3 37.5, Base Excess 9.8 Carbon Dioxide: 36mmol/L Baseline Troponin: 15 TSH: 10.86 Prolactin: pending UA: WBC-0-4, RBC 5-10, Squamous Epith Cells 0-4, urine bacteria 3+ Urine Toxicology negative Urine Culture pending Head CT Impression: No acute intracranial abnormality. EKG: Sinus Bradycardia with HR in the 50s A&P Assessment and plan (1) Dizziness: Patient reports dizziness x 2 months occurrences as often as 1-2 times a day for approximately 10minutes, reports had an appointment regarding this complaint with her PCP tomorrow. Will need to reschedule. Cardiac monitoring Fall precautions Denies any recent medication changes. On oxygen at home 2 L nasal cannula, reports history of sleep apnea wears CPAP at night. (2) TIA (transient ischemic attack): Patient is suspected to have TIA with associated symptoms of dizziness, shakiness, headache, weakness. Currently denies dizziness, continues to complain of headache. Blood pressure slightly elevated. Neurology saw the patient, recommended completion of stroke workup in the hospital with echocardiogram and carotid duplex, orders placed. Neurochecks Aspiration precautions Continue aspirin, Lipitor, metoprolol. Initiate Plavix Speech therapy, occupational therapy, physical therapy consulted. (3) COPD (chronic obstructive pulmonary disease): Continue as needed breathing treatment orders. Patient on 2 L nasal cannula baseline, wears CPAP at night for sleep apnea. Patient states she is a current smoker. She smokes 1 to 2 cigarettes daily. Patient educated on risk of smoking, and importance of quitting. Nicotine patch offered. (4) Hypoxia: Current ABG results: PH 7.37, pCO2 64.3, pO2 25.7, HCO3 37.5 CPAP at night, 2 L nasal cannula during the day Cardiac monitoring Follow-up ABG in a.m. (5) Hypothyroidism (acquired): TSH elevated at 10.86 Continue levothyroxine home medication dose. Coding Level of Care Code 87773 Diagnoses Dizziness R42 TIA (transient ischemic attack) G45.9 COPD (chronic obstructive pulmonary disease) J44.9 Hypoxia R09.02 Hypothyroidism (acquired) E03.9 Time Spent (min) 50 Documented by User: Brennen Torres MD 06/09/23 00:01 Providers/Chief Complaint 2 Admitting Physician: Brennen Torres MD, hospitalist Chief Complaint: Stroke alert History of Present Illness Crystal Pierre is a 57 year old female with past medical history of CHF, COPD, asthma, hypertension, GERD, hypothyroidism and seizure disorder brought to the emergency department with below listed complaints. Mrs. Pierre came in to the emergency department via EMS with chief complaint of dizziness. Patient lives independently in senior housing locally in [place] and reports that she receives home [facility] services currently. She patient states she was with some friends outside smoking around 1999 and began to get very dizzy, she felt like she was going to pass out. Her friend called ambulance for her at this time. Patient stated she had some associated symptoms of shakiness, and shortness of breath as well. Mrs. Pierre states that she has been having this dizziness for about 2 months and can occur 1-2 times a day with episodes lasting approximately 10 minutes. Patient has known history of COPD, sleep apnea, and seizure, she states she wears CPAP at night and nasal cannula oxygen daily. Patient reports her last seizure was about 3 months ago. Patient states she was supposed to see her primary care provider tomorrow morning regarding this issue. Patient currently denies any dizziness, chest pain, shortness of breath. She reports headache, weakness. While in the emergency department a CBC, CMP, ABG, UA, urine culture, toxicology, head CT, and EKG were ordered and obtained. There was concern of stroke. A stroke alert was called. Neurology saw the patient. They recommended completion of stroke workup in the hospital, with echocardiogram and carotid duplex. Patient did not lose consciousness during her episode. Medications/Allergies Home Medications Medication Instructions Recorded Confirmed Last Taken Type albuterol sulfate 90 mcg/actuation 2 puff inhalation Q6H PRN 02/15/19 03/27/23 10/23/19 History aerosol inhaler (ProAir HFA) Shortness Of Breath aspirin 81 mg tablet,delayed 81 mg PO QAM 02/15/19 03/27/23 03/16/23 History release (Adult Aspirin Regimen) levetiracetam 250 mg tablet 250 mg PO BID 02/15/19 03/27/23 03/16/23 History spironolactone 25 mg tablet 25 mg PO DAILY 10/26/20 03/27/23 03/16/23 History hydroxyzine HCl 10 mg tablet 10 mg PO TID PRN Anxiety 01/20/21 03/27/23 Unknown History duloxetine 60 mg capsule,delayed 60 mg PO DAILY 04/05/21 03/27/23 03/16/23 History release trazodone 50 mg tablet 100 mg PO BEDTIME 04/05/21 03/27/23 03/16/23 History atorvastatin 20 mg tablet 20 mg PO BEDTIME 06/17/21 03/27/23 03/16/23 History cetirizine 10 mg tablet 10 mg PO DAILY 01/11/22 03/27/23 03/16/23 History magnesium oxide 500 mg PO DAILY 05/20/22 03/27/23 03/16/23 History acetaminophen 500 mg capsule 500 mg PO Q6H PRN Pain 08/24/22 03/27/23 Unknown History bumetanide 2 mg tablet 2 mg PO DAILY #90 tabs 09/08/22 03/27/23 03/16/23 Rx metoprolol succinate 50 mg 75 mg (1.5 x 50 mg) PO BID #180 12/20/22 03/27/23 03/16/23 Rx tablet,extended release 24 hr tabs ondansetron HCl 4 mg tablet 4 mg PO Q6H PRN nausea and 02/14/23 03/27/23 Unknown Rx vomiting #20 tabs gabapentin 300 mg capsule 300 mg PO TID 03/15/23 03/27/23 03/16/23 History levothyroxine 100 mcg tablet 100 mcg PO DAILY 03/15/23 03/27/23 03/16/23 History montelukast 10 mg tablet 10 mg PO DAILY 03/15/23 03/27/23 03/16/23 History pantoprazole 40 mg tablet,delayed 40 mg PO DAILY 03/15/23 03/27/23 03/16/23 History release (Protonix) sucralfate 1 gram tablet 1 g PO TID 03/15/23 03/27/23 03/16/23 History albuterol sulfate 2.5 mg/3 mL 2.5 mg inhalation QID PRN 03/17/23 03/27/23 Unknown History (0.083 %) solution for nebulization SHORTNESS OF BREATH potassium chloride 20 mEq See Rx Instructions .Route 05/08/23 Unknown Rx tablet,extended release(part/cryst) .COMPLEX #90 tabs Allergies Allergy/AdvReac Type Severity Reaction Status Date / Time chlorpromazine Allergy Unknown ALGY-Rash Verified 04/04/23 19:14 diphenhydramine Allergy Unknown Unknown Verified 04/04/23 19:14 Iodinated Contrast Media Allergy Unknown ALGY-Hives Verified 04/04/23 19:14 tramadol Allergy Unknown Verified 04/04/23 19:14 amoxicillin AdvReac Unknown ADR-Nausea Verified 04/04/23 19:14 codeine AdvReac Unknown ADR-Vomitin Verified 04/04/23 19:14 g Penicillins AdvReac Unknown ADR-Vomitin Verified 04/04/23 19:14 g PFSH Acute 2 PFSH: Medical History (Updated 06/08/23 @ 23:39 by Brennen Torres MD) Sleep apnea Psychiatric care Diastolic heart failure Chest pain Lower extremity edema Atypical chest pain Cervical radiculopathy Pain of hand Diastolic CHF 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 Other Adopted Social History Smoking and tobacco/nicotine status: former use of tobacco/nicotine Quit status (tobacco/nicotine): has quit using Year quit tobacco: 2019 - 1-5 ciggs/day Alcohol intake: never Substance/Drug Use: never Lives independently: Yes Household members: none Housing: Apartment Current occupational status: disabled Do you think of yourself as: Straight/Heterosexual Current gender identity: Female Physical Exam 2 Narrative: General: Comfortable appearing female, resting in ER [facility], on RA. Denies dizziness currently. HEENT: Head atraumatic, normocephalic to visual inspection, neck supple,no thyromegaly noted. Reports double vision, states this is normal for her and she wears glasses to help. Right esotropia is noted CV: Normal rhythm, bradycardia noted, S1-S2 noted, no murmurs rubs or gallops noted. Pulm: Lungs clear to auscultation bilaterally. GI: Obese abdomen, soft, tender in the bilateral lower quadrants. : Deferred. Extremities: Capillary refill <2 seconds, 2+ edema noted bilateral lower extremities. NEURO: alert and orientated x 3, with slowed speech. NIHSS scale 0 Data 06/08/23 21:21 06/08/23 21:21 Other Labs: ABG: PH 7.37, pCO2 64.3, pO2 25.7, HCO3 37.5, Base Excess 9.8 Carbon Dioxide: 36mmol/L Baseline Troponin: 15 TSH: 10.86 Prolactin: pending UA: WBC-0-4, RBC 5-10, Squamous Epith Cells 0-4, urine bacteria 3+ Urine Toxicology negative Urine Culture pending Head CT Impression: No acute intracranial abnormality. I reviewed this as well EKG: Sinus Bradycardia with HR in the 50s, normal axis, no acute changes.. I reviewed this as well. A&P Assessment and plan (1) Dizziness: Patient reports dizziness x 2 months occurrences as often as 1-2 times a day for approximately 10minutes, reports had an appointment regarding this complaint with her PCP tomorrow. Will need to reschedule. Cardiac monitoring Fall precautions Echocardiogram, carotid duplex Denies any recent medication changes. On oxygen at home 2 L nasal cannula, reports history of sleep apnea wears CPAP at night. Differential diagnosis is large. Will also check orthostatic blood pressures. Hold Bumex for now. Reduce Neurontin to 100 mg 3 times daily. If this persists, it can be addressed on follow-up with neurology. MRI could be considered if they believe is appropriate. (2) TIA (transient ischemic attack): Patient was suspected to have TIA with associated symptoms of dizziness, shakiness, headache, weakness. Currently denies dizziness, continues to complain of headache. Blood pressure slightly elevated. Neurology saw the patient, recommended completion of stroke workup in the hospital with echocardiogram and carotid duplex, orders placed. She is already on aspirin Neurochecks Aspiration precautions Continue aspirin, Lipitor, metoprolol. Initiate Plavix Speech therapy, occupational therapy, physical therapy consulted. (3) COPD (chronic obstructive pulmonary disease): (4) Hypoxia: Current ABG results: PH 7.37, pCO2 64.3, pO2 25.7, HCO3 37.5 She was not on her oxygen which she usually uses 2 L, when this ABG was initiated. Initiate her oxygen. CPAP at night, 2 L nasal cannula during the day Cardiac monitoring She does have some CO2 retention. Neurontin in patients with significant COPD, along with Lyrica, lead to more complications with CO2 retention. Secondary to this reason, will reduce her Neurontin dosing. (5) Hypothyroidism (acquired): TSH elevated at 10.86 Continue levothyroxine home medication dose. Can have outpatient follow-up and adjustment of hormone. Plan Other medical problems as outlined in past medical history Full code currently Lovenox for DVT prophylaxis Urine is mildly abnormal but she does not really have any symptoms of UTI. Suspect this is asymptomatic bacteriuria Attestations 2 Medical Necessity Statement*: Will need less than 2 midnight stay for evaluation and treatment of dizziness. Diagnoses Dizziness R42 TIA (transient ischemic attack) G45.9 COPD (chronic obstructive pulmonary disease) J44.9 Hypoxia R09.02 Hypothyroidism (acquired) E03.9 Time Spent (min) 50
[2023-06-08 22:52] VITALS: BP 147/96; PULSE 57; RESP 16; O2SAT 95
[2023-06-08 23:09] VITALS: BP 116/72; PULSE 61; RESP 16; O2SAT 100
[2023-06-08 23:45] VITALS: BMI 38.7
[2023-06-08 23:59] VITALS: BP 116/72; PULSE 61; RESP 16; TEMP 36.6; O2SAT 100
[2023-06-09] VITALS (13 sets, daily range): BP systolic 100–135; BP diastolic 40–82; PULSE 45–74; RESP 16–18; TEMP 36.4–36.7; O2SAT 96–100
[2023-06-09 00:03] LABS: Prolactin 14.28 ng/mL (4.8-23.3)
[2023-06-09] MEDS: enoxaparin 40 mg/0.4 mL Syringe SUBCUT ×2 (00:17→22:49)
[2023-06-09] MEDS: atorvastatin 40 mg Tablet PO ×2 (00:17→20:26)
[2023-06-09] MEDS: acetaminophen 325 mg Tablet 650 MG PO ×2 (03:10→14:57)
--- NOTE | 2023-06-09 03:12 | ECG_ITS ---
[facility] Test Date: 2023-06-09 Pat Name: Crystal Pierre Department: Room: 256 Gender: Female [employer]: : 1965 Requested By: Zach Magana Order Number: [id number] Clemencia MD: Joseph Wilson M.D. Measurements Intervals Parks Rate: 58 P: 57 CA: 147 QRS: 48 QRSD: 104 T: 52 QT: 437 QTc: 433 Interpretive Statements SINUS BRADYCARDIA Compared to ECG 06/08/2023 22:58:22 No significant changes Electronically Signed On 06-09-2023 14:27:36 CDT by Joseph Wilson M.D. [id number]
[2023-06-09 04:22] LABS: Chol HDL Ratio 1.98 mg/dL (0.0-4.40); Cholesterol 125 mg/dL (0-200); HDL Cholesterol 63 mg/dL (60-100); LDL Cholesterol Calculated 45 mg/dL (50-129); LDL HDL Ratio 0.71 RATIO (0.00-3.22); Triglycerides 87 mg/dL (0-150)
--- NOTE | 2023-06-09 07:53 | PC.PHAR ---
WAITING FOR MAR FROM [facility]
[2023-06-09] MEDS: pantoprazole DR 40 mg Tablet PO (08:53)
[2023-06-09] MEDS: gabapentin 100 mg Capsule PO ×3 (08:53→20:26)
[2023-06-09] MEDS: levETIRAcetam 500 mg Tablet 250 MG PO ×2 (08:53→17:21)
[2023-06-09] MEDS: aspirin 81 mg EC Tablet PO (08:53)
[2023-06-09] MEDS: duloxetine 60 mg Capsule PO (08:53)
[2023-06-09] MEDS: montelukast sodium 10 mg Tablet PO (08:54)
[2023-06-09] MEDS: clopidogrel 75 mg Tablet PO (08:54)
--- NOTE | 2023-06-09 14:52 | P.PN_ITS ---
Subjective 2 Subjective: seen today feels better poor historian Vitals/I&O/Wt Last Vital Signs Temp 97.6 F 06/09/23 11:00 Pulse 69 06/09/23 12:00 Resp 17 06/09/23 11:00 BP 118/72 06/09/23 12:00 Pulse Ox 98 06/09/23 11:00 O2 Del Method Nasal Cannula 06/09/23 11:00 O2 Flow Rate 2 06/09/23 12:12 FiO2 28 06/09/23 00:21 06/08/23 06/09/23 06/09/23 22:59 06:59 14:59 Intake Total 120 / 120 Balance 120 / 120 Weight last 48 hrs Weight 106.849 kg Weight 112.219 kg Physical Exam 2 Narrative: General: Comfortable appearing female, Denies dizziness currently. HEENT: Head atraumatic, normocephalic to visual inspection, neck supple,no thyromegaly noted. Reports double vision, states this is normal for her and she wears glasses to help. Right esotropia is noted CV: Normal rhythm, RRR, S1-S2 noted, no murmurs rubs or gallops noted. Pulm: Lungs clear to auscultation bilaterally. GI: Obese abdomen, soft, tender in the bilateral lower quadrants. : Deferred. Extremities: Capillary refill <2 seconds, 2+ edema noted bilateral lower extremities. NEURO: alert and orientated x 3, with slowed speech. NIHSS scale 0 Data 06/08/23 21:21 06/08/23 21:21 A&P Assessment and plan (1) Dizziness: Patient reports dizziness x 2 months occurrences as often as 1-2 times a day for approximately 10minutes, reports had an appointment regarding this complaint with her PCP tomorrow. Will need to reschedule. Cardiac monitoring Fall precautions Echocardiogram, carotid duplex Denies any recent medication changes. On oxygen at home 2 L nasal cannula, reports history of sleep apnea wears CPAP at night. Differential diagnosis is large. Will also check orthostatic blood pressures. Hold Bumex for now. Reduce Neurontin to 100 mg 3 times daily. If this persists, it can be addressed on follow-up with neurology. MRI could be considered if they believe is appropriate. (2) TIA (transient ischemic attack): Patient was suspected to have TIA with associated symptoms of dizziness, shakiness, headache, weakness. Currently denies dizziness, continues to complain of headache. Blood pressure slightly elevated. Neurology saw the patient, recommended completion of stroke workup in the hospital with echocardiogram and carotid duplex, orders placed. She is already on aspirin Neurochecks Aspiration precautions Continue aspirin, Lipitor, metoprolol. Initiate Plavix Speech therapy, occupational therapy, physical therapy consulted. (3) COPD (chronic obstructive pulmonary disease): Continue as needed breathing treatment orders. Patient on 2 L nasal cannula baseline, wears CPAP at night for sleep apnea. Patient states she is a current smoker. She smokes 1 to 2 cigarettes daily. Patient educated on risk of smoking, and importance of quitting. Nicotine patch offered. (4) Hypoxia: Current ABG results: PH 7.37, pCO2 64.3, pO2 25.7, HCO3 37.5 She was not on her oxygen which she usually uses 2 L, when this ABG was initiated. Initiate her oxygen. CPAP at night, 2 L nasal cannula during the day Cardiac monitoring She does have some CO2 retention. Neurontin in patients with significant COPD, along with Lyrica, lead to more complications with CO2 retention. Secondary to this reason, will reduce her Neurontin dosing. (5) Hypothyroidism (acquired): TSH elevated at 10.86 Continue levothyroxine home medication dose. Can have outpatient follow-up and adjustment of hormone. Plan Other medical problems as outlined in past medical history Full code currently Lovenox for DVT prophylaxis Urine is mildly abnormal but she does not really have any symptoms of UTI. Suspect this is asymptomatic bacteriuria Continue plan as per HnP PT consult pending Speech therapy consult pending Attestations 2 Medical Necessity Statement*: Will need less than 2 midnight stay for evaluation and treatment of dizziness. Diagnoses Dizziness R42 TIA (transient ischemic attack) G45.9 COPD (chronic obstructive pulmonary disease) J44.9 Hypoxia R09.02 Hypothyroidism (acquired) E03.9
[2023-06-09 15:27] LABS: Free T4 Free Thyroxine 1.07 ng/dL (0.82-1.77)
--- NOTE | 2023-06-09 23:45 | USCV_ITS ---
Crystal Pierre Age: 57 Gender: F : 1965 Exam Date: 06/09/2023 00:55 Ordering Phys: Brennen Torres MD Technologist: SHANT [place] [facility] [place]ication: slurred speech, dizziness, altered mental status, SOB, confusion. Patient cannot answer questions. BP: 116 / 72 HR: 55 Rhythm: Sinus bradycardia Technical Quality: Adequate MEASUREMENTS (Male / Female) Normal Values 2D ECHO LV Diastolic Diameter PLAX 4.6 cm 4.2 - 5.9 / 3.9 - 5.3 cm IVS Diastolic Thickness 1.3 cm 0.6 - 1.0 / 0.6 - 0.9 cm IVS Systolic Thickness 1.6 cm LVPW Diastolic Thickness 1.0 cm 0.6 - 1.0 / 0.6 - 0.9 cm LVPW Systolic Thickness 1.4 cm LVOT Diameter 1.8 cm LV Ejection Fraction 2D Teich 59.3 % LV Ejection Fraction MOD 2C 55.9 % LV Ejection Fraction 2C AL 55.7 % LA Diameter 3.3 cm LA Sys Volume AL 72.7 cm cubed LA Sys Volume Index AL 32.1 cm cubed/m squared Aorta at Sinotubular Diameter 2.6 cm IVC Diameter 1.2 cm M-MODE LA Ao Ratio MM 1.7 AV Cusp Separation MM 1.7 cm DOPPLER AV Peak Velocity 150.0 cm/s LVOT Peak Velocity 133.0 cm/s AV Area Cont Eq vti 2.6 cm squared AV Area Cont Eq pk 2.3 cm squared MV Peak Velocity 117.0 cm/s MV Area PHT 3.6 cm squared Mitral E to A Ratio 1.3 TV Peak E Velocity 38.0 cm/s PV Peak Velocity 88.0 cm/s FINDINGS Left Ventricle Left ventricle is normal in size. LV systolic function is normal with EF 55 to 60%. No regional wall motion abnormalities are seen. Right Ventricle Normal in size and function Right Atrium Normal in size Left Atrium Dilated Mitral Valve Structurally normal mitral valve. Trace mitral regurgitation. Aortic Valve Aortic valve is thickened. Moderate aortic regurgitation. Tricuspid Valve Insufficient TR jet to calculate RVSP Pulmonic Valve Not well visualized Pericardium Normal Aorta Normal in size IVC Appears to be normal CONCLUSIONS LV systolic function is normal with EF of 55-60% Left atrial dilation Trace mitral regurgitation Moderate aortic regurgitation No significant changes compared to echocardiogram from 2022. Joseph Wilson MD (Electronically Signed) Final Date: 09 Jun 2023 14:43 S
--- NOTE | 2023-06-09 23:45 | USCV_ITS ---
Crystal Pierre Age: 57 Gender: F : 1965 Exam Date: 06/09/2023 00:23 Ordering Phys: Brennen Torres MD Technologist: SHANT [place] [facility] [place]: slurred speech, dizziness, altered mental status, confusion, shortness of breath . Head CT is unremarkable. Patient cannot answer questions. Risk Factors: slurred speech, dizziness, altered mental status, confusion, shortness of breath . Head CT is unremarkable. Patient cannot answer questions. Previous Vascular Surgery: unknown Right Brachial BP: 116 / 72 Left Brachial BP: / Right Left Velocity (cm/s) Spectral Plaque Velocity (cm/s) Spectral Plaque Syst/Diast Broadening Syst/Diast Broadening 108.70/20.60 Min None Prox CCA 125.20/ 47.90 Min None 93.20/ 20.60 Min None Mid CCA 112.40/ 32.10 Min None 88.00/ 20.60 Min Homo Distal CCA 94.20 / 24.80 Min Hetro 67.90/ 19.10 Min Homo Prox ICA 83.20 / 19.30 Min Homo 88.00/ 30.50 Min Homo Mid ICA 77.80 / 26.60 Min Homo 106.80/40.40 Min Hetro Distal ICA 124.50/ 51.90 Min Hetro 88.00 Min Homo ECA 85.10 Min Homo 1.20 ICA/CCA 1.30 Antegrade Vertebral Antegrade 60.20/ 24.80 cm/s 84.20/ 32.40 cm/s Tri Subclavian Tri 80.40 123.3 0 CONCLUSIONS Right ICA stenosis <50%. Mild atheromatous plaque right carotid bulb/ICA. Left ICA stenosis <50%. Mild atheromatous plaque left carotid bulb/ICA. Normal antegrade Doppler flow noted in the right vertebral artery. Normal antegrade Doppler flow noted in the left vertebral artery. Leland Pereyra MD (Electronically Signed) Final Date: 09 Jun 2023 08:44 S
[2023-06-10] VITALS (9 sets, daily range): BP systolic 103–177; BP diastolic 50–91; PULSE 54–71; RESP 16–18; TEMP 36.5–37.1; O2SAT 96–100
[2023-06-10] MEDS: levothyroxine 112 mcg Tablet PO (05:11)
[2023-06-10 06:27] LABS: Basophils # 0.1 10^3/uL (0.0-0.1); Basophils % 1.3 %; Eosinophils # 0.2 10^3/uL (0.0-0.8); Eosinophils % 3.9 %; Hematocrit 37.9 % (36-47); Lymphocytes # 2.1 10^3/uL (0.8-4.8); Lymphocytes % 39.4 %; Mean Corpuscular HGB Conc 29.8 g/dL (30-55); Mean Corpuscular Hemoglobin 28.5 pg (27-33); Mean Corpuscular Volume 95.7 fl (85-98); Mean Platelet Volume 11.2 fL (7.4-10.4); Monocytes # 0.6 10^3/uL (0.2-0.9); Monocytes % 10.3 %; Neutrophils # 2.44 10^3/uL (1.8-7.7); Neutrophils % 44.9 %; Nucleated Red Blood Cells % 0 %; Platelet Count 233 10^3/cmm (157-399); Red Blood Count 3.96 10^6/uL (3.85-5.65); Red Cell Distribution Width 12.7 % (12.1-15.1); White Blood Count 5.43 10^3/uL (3.29-11.43)
[2023-06-10 06:44] LABS: Anion Gap 9.4 (5-19); Blood Urea Nitrogen 14 mg/dL (6-20); Calcium 8.8 mg/dL (8.5-10.5); Carbon Dioxide 36 mmol/L (22-29); Chloride 100 mmol/L (98-107); Creatinine Clr Calc Pharmacy 87.2145; Glomerular Filtration Rate 64.3 mL/min (90-130); Glucose 100 mg/dL (65-115); Magnesium 2.2 mg/dL (1.7-2.3); Osmolality Calculated 293 mOsm/kg (285-295); Potassium 4.4 mmol/L (3.5-5.1); Sodium 141 mmol/L (136-145)
[2023-06-10] MEDS: montelukast sodium 10 mg Tablet PO (09:51)
[2023-06-10] MEDS: aspirin 81 mg EC Tablet PO (09:51)
[2023-06-10] MEDS: levETIRAcetam 500 mg Tablet 250 MG PO (09:51)
[2023-06-10] MEDS: pantoprazole DR 40 mg Tablet PO (09:51)
[2023-06-10] MEDS: gabapentin 100 mg Capsule PO ×2 (09:51→15:59)
[2023-06-10] MEDS: duloxetine 60 mg Capsule PO (09:51)
[2023-06-10] MEDS: clopidogrel 75 mg Tablet PO (09:52)
--- NOTE | 2023-06-10 13:15 | P.DS_ITS ---
Discharge Providers Date of Admission: 06/08/23 22:54 Date of Discharge: June 10, 2023 Attending Provider at Admission: Brennen Torres MD Attending Provider at Discharge: Lucille Lowery MD Primary Care Provider: Akila Rivera DO Diagnoses at Discharge Discharge Diagnosis (1) Dizziness: Status: Resolved (2) TIA (transient ischemic attack): Status: Resolved (3) COPD (chronic obstructive pulmonary disease): Status: Acute (4) Hypoxia: Status: Resolved (5) Hypothyroidism (acquired): Status: Acute Reason for Visit Reason for Visit: Stroke alert Hospital Course Hospital Course Patient was admitted for a TIA however neurological examination was unremarkable and NIH score was 0. Patient was not a candidate for any kind of thrombolytics. Patient was seen by neurology on hospital admission. Stroke workup was completed. She was placed on Lipitor aspirin and Plavix was added. Echo was also performed EF 55 to 60%. Carotid Dopplers did not show any significant ICA stenosis. Patient was seen by physical therapy and rehab was recommended however patient was adamant that she will not go to rehab. She lives in senior apartments and would like to go back there. Patient alert oriented x 3 and has capacity to make her decisions. She will be discharged home in stable condition. Provide will be set up for her. Physical Exam Narrative: General: Comfortable appearing female, Denies dizziness currently. HEENT: Head atraumatic, normocephalic to visual inspection, CV: Normal rhythm, RRR, S1-S2 noted, no murmurs rubs or gallops noted. Pulm: Lungs clear to auscultation bilaterally. GI: Obese abdomen, soft, tender in the bilateral lower quadrants. : Deferred. Extremities: Capillary refill <2 seconds, 2+ edema noted bilateral lower extremities. NEURO: alert and orientated x 3, eating sitting up in bed at this time.. NIHSS scale 0 Discharge Data Studies Completed and Pending Completed Studies During Hospitalization Category Date Time Status CT head wo con* [id number] Stat Cat Scan 06/08/23 21:03 Completed CV carotid duplex BI* [id number] Routine Ultrasound 06/09/23 23:45 Completed CV. echo complete* [id number] Routine Ultrasound 06/09/23 23:45 Completed Pending at discharge Category Date Time Status Urine Culture Stat Lab 06/08/23 21:39 Results Radiology Impressions Head CT 06/08/23 21:03 IMPRESSION: No acute intracranial abnormality. ASSESSMENT: ASPECTS (Smith Stroke Program Early CT Score) is 10. Laboratory Results WBC 5.43 10^3/uL (3.29-11.43) 06/10/23 05:28 RBC 3.96 10^6/uL (3.85-5.65) 06/10/23 05:28 Hgb 11.30 g/dL (11.27-16.99) 06/10/23 05:28 Hct 37.9 % (36-47) 06/10/23 05:28 MCV 95.7 fl (85-98) 06/10/23 05:28 MCH 28.5 pg (27-33) 06/10/23 05:28 MCHC 29.8 g/dL (30-55) L 06/10/23 05:28 RDW 12.7 % (12.1-15.1) 06/10/23 05:28 Plt Count 233 10^3/cmm (157-399) 06/10/23 05:28 MPV 11.2 fL (7.4-10.4) H 06/10/23 05:28 Neut % (Auto) 44.9 % 06/10/23 05:28 Lymph % (Auto) 39.4 % 06/10/23 05:28 Harrison % (Auto) 10.3 % 06/10/23 05:28 Eos % (Auto) 3.9 % 06/10/23 05:28 Baso % (Auto) 1.3 % 06/10/23 05:28 Neut # (Auto) 2.44 10^3/uL (1.8-7.7) 06/10/23 05:28 Lymph # (Auto) 2.1 10^3/uL (0.8-4.8) 06/10/23 05:28 Harrison # (Auto) 0.6 10^3/uL (0.2-0.9) 06/10/23 05:28 Eos # (Auto) 0.2 10^3/uL (0.0-0.8) 06/10/23 05:28 Baso # (Auto) 0.1 10^3/uL (0.0-0.1) 06/10/23 05:28 Nucleated RBC % (auto) 0 % 06/10/23 05:28 Nucleated RBCs # 0.0 /100WBC 06/10/23 05:28 PT 12.60 SECONDS (12.1-14.9) 06/08/23 21:21 INR 0.92 (0.8-1.2) 06/08/23 21:21 APTT 30.0 SECONDS (23.9-36.7) 06/08/23 21:21 Specimen Type Arterial 06/08/23 22:35 Sample Site Brachial, left 06/08/23 22:35 ABG pH 7.37 (7.35-7.45) 06/08/23 22:35 ABG pCO2 64.3 mmHg (35-45) H* 06/08/23 22:35 ABG pO2 52.7 mmHg (80.0-100.0) L 06/08/23 22:35 ABG PO2/FiO2 Ratio 0 06/08/23 22:35 ABG HCO3 37.5 mmol/L (22-26) H 06/08/23 22:35 ABG Base Excess 9.8 mmol/L (-2.0-2.0) H 06/08/23 22:35 Nestor Test Pos 06/08/23 22:35 Hematocrit 39.9 % (37-47) 06/08/23 22:35 O2 Delivery Device None 06/08/23 22:35 FiO2 21.0 % 06/08/23 22:35 Cutting Machine Offbearer ID Zitacarmen 06/08/23 22:35 Sodium 141 mmol/L (136-145) 06/10/23 05:28 Potassium 4.4 mmol/L (3.5-5.1) 06/10/23 05:28 Chloride 100 mmol/L (98-107) 06/10/23 05:28 Carbon Dioxide 36 mmol/L (22-29) H 06/10/23 05:28 Anion Gap 9.4 (5-19) 06/10/23 05:28 BUN 14 mg/dL (6-20) 06/10/23 05:28 Creatinine 0.9 mg/dL (0.5-0.9) 06/10/23 05:28 GFR Calculation 64.3 mL/min (90-130) L 06/10/23 05:28 Glucose 100 mg/dL (65-115) 06/10/23 05:28 Calculated Osmolality 293 mOsm/kg (285-295) 06/10/23 05:28 Calcium 8.8 mg/dL (8.5-10.5) 06/10/23 05:28 Magnesium 2.2 mg/dL (1.7-2.3) 06/10/23 05:28 Total Bilirubin 0.9 mg/dL (0.15-1.2) 06/08/23 21:21 AST 18 U/L (0-32) 06/08/23 21:21 ALT 11 U/L (0-33) 06/08/23 21:21 Alkaline Phosphatase 108 U/L (35-105) H 06/08/23 21:21 Creatine Kinase 111 U/L (26-192) 06/08/23 21:21 Troponin T Baseline 15 ng/L (0-10) H 06/08/23 21:21 Troponin T 120 Minute 14.90 ng/L (0-10) H 06/08/23 23:05 Delta Troponin T -0.10 ABS# (0-10) L 06/08/23 23:05 Troponin T Hi Sens 6Hr 12.30 ng/L (0-10) H 06/09/23 03:41 Troponin T Hi Sens 6Hr Delta -2.70 ng/L (0-12) L 06/09/23 03:41 C-Reactive Protein 3.0 mg/L (0.0-4.9) 06/08/23 21:21 NT-Pro-B Natriuret Pep 181 pg/mL (0-125) H 06/08/23 21:21 Total Protein 7.3 g/dL (6.6-8.7) 06/08/23 21:21 Albumin 4.5 g/dL (3.5-5.2) 06/08/23 21:21 Globulin 2.8 g/dL (1.3-4.6) 06/08/23 21:21 Triglycerides 87 mg/dL (0-150) 06/09/23 03:41 Cholesterol 125 mg/dL (0-200) 06/09/23 03:41 LDL Cholesterol, Calc 45 mg/dL (50-129) L 06/09/23 03:41 HDL Cholesterol 63 mg/dL (60-100) 06/09/23 03:41 LDL/HDL Ratio 0.71 RATIO (0.00-3.22) 06/09/23 03:41 Cholesterol/HDL Ratio 1.98 mg/dL (0.0-4.40) 06/09/23 03:41 TSH 10.86 uIU/mL (0.27-4.20) H 06/08/23 21:21 Free T4 1.07 ng/dL (0.82-1.77) 06/09/23 03:41 Prolactin 14.28 ng/mL (4.8-23.3) 06/08/23 21:21 Urine Color Yellow (Yellow) 06/08/23 21:39 Urine Appearance Hazy (CLEAR) A 06/08/23 21:39 Urine pH 6 (5-7) 06/08/23 21:39 Ur Specific [place]kin 1.010 (1.005-1.030) 06/08/23 21:39 Urine Protein Neg (Negative) 06/08/23 21:39 Urine Glucose (UA) Norm (Normal) 06/08/23 21:39 Urine Ketones Negative (Negative) 06/08/23 21:39 Urine Blood 2+ (Negative) H 06/08/23 21:39 Urine Nitrate Negative (Negative) 06/08/23 21:39 Urine Bilirubin Neg (Negative) 06/08/23 21:39 Urine Urobilinogen Neg mg/dL (Negative) 06/08/23 21:39 Ur Leukocyte Esterase Trace (Negative) H 06/08/23 21:39 Urine RBC 5-10 /hpf (0-2) H 06/08/23 21:39 Urine WBC 0-4 /hpf (0-5) H 06/08/23 21:39 Ur Squamous Epith Cells 0-4 /hpf (0-5) H 06/08/23 21:39 Amorphous Sediment Not Reportable 06/08/23 21:39 Urine Bacteria 3+ /hpf (NONE) H 06/08/23 21:39 Urine Mucus 2+ /hpf 06/08/23 21:39 Urine Opiates Screen Negative ng/mL (Negative) 06/08/23 21:39 Ur Barbiturates Screen Negative ng/mL (Negative) 06/08/23 21:39 Ur Phencyclidine Scrn Negative ng/mL (Negative) 06/08/23 21:39 Ur Amphetamines Screen Negative ng/mL (Negative) 05/02/24 21:39 U Benzodiazepines Scrn Negative ng/mL (Negative) 06/08/23 21:39 Urine Cocaine Screen Negative ng/mL (Negative) 06/08/23 21:39 U Marijuana (THC) Screen Negative ng/mL (Negative) 06/08/23 21:39 Vitals Last Vital Signs Temp 98.8 F 06/10/23 11:49 Pulse 58 L 06/10/23 11:49 Resp 17 06/10/23 11:49 BP 107/61 06/10/23 11:49 Pulse Ox 100 06/10/23 11:49 O2 Del Method Nasal Cannula 06/10/23 11:49 O2 Flow Rate 2 06/10/23 11:25 FiO2 21 06/09/23 22:26 Discharge Plan Discharge Patient Disposition: Home Condition: Fair Prescriptions: New clopidogrel 75 mg Tablet 75 mg PO DAILY Qty: 30 0RF Toprol XL 25 mg tablet extended release 24 hr 50 mg PO DAILY Qty: 60 0RF gabapentin 100 mg Capsule 100 mg PO TID Qty: 90 0RF levothyroxine 112 mcg Tablet 112 mcg PO QAM Qty: 30 0RF Continued levetiracetam 250 mg tablet 250 mg PO BID aspirin [Adult Aspirin Regimen] 81 mg tablet,delayed release (DR/EC) 81 mg PO QAM albuterol sulfate [ProAir HFA] 90 mcg/actuation HFA aerosol inhaler 2 puff INHALATION Q6H PRN (Reason: Shortness Of Breath) magnesium oxide 500 mg tablet 500 mg PO DAILY acetaminophen 500 mg capsule 500 mg PO Q6H PRN (Reason: Pain) hydroxyzine HCl 10 mg Tablet 10 mg PO TID PRN (Reason: Anxiety) trazodone 50 mg tablet 100 mg PO BEDTIME duloxetine 60 mg capsule,delayed release(DR/EC) 60 mg PO DAILY cetirizine 10 mg tablet 10 mg PO DAILY albuterol sulfate 2.5 mg /3 mL (0.083 %) solution for nebulization 2.5 mg inhalation QID PRN (Reason: SHORTNESS OF BREATH) ondansetron HCl 4 mg tablet 4 mg PO Q6H PRN (Reason: nausea and vomiting) Qty: 20 0RF sucralfate 1 gram tablet 1 g PO TID montelukast 10 mg tablet 10 mg PO DAILY pantoprazole [Protonix] 40 mg tablet,delayed release (DR/EC) 40 mg PO DAILY Vitamin D3 25 mcg (1,000 unit) Tablet 25 mcg PO DAILY fluticasone propionate 50 mcg/actuation spray,suspension 1 spray INTRANASAL BID Gemtesa 75 mg tablet 75 mg PO DAILY potassium chloride 20 mEq tablet,ER particles/crystals 20 meq PO DAILY bumetanide 2 mg tablet 2 mg PO DAILY Qty: 90 3RF Changed atorvastatin 20 mg tablet 40 mg PO BEDTIME Qty: 60 0RF Discontinued metoprolol succinate 50 mg tablet extended release 24 hr 75 mg PO BID Qty: 180 3RF spironolactone 25 mg tablet 25 mg PO DAILY levothyroxine 100 mcg tablet 100 mcg PO DAILY gabapentin 300 mg capsule 300 mg PO TID Discharge Orders: Discharge Order (Routine); Ordered 06/10/23 Ordered By: Lucille Lowery Referrals: Abhay Gonzales MD [Physician] - 4-7 days (We have notified your physician's clinic of the need for a follow-up appointment to be scheduled. If you have not heard from them within the next 2 business days, please call them directly. ) Akila Rivera DO [Primary Care Provider] - 1-3 days (We have notified your physician's clinic of the need for a follow-up appointment to be scheduled. If you have not heard from them within the next 2 business days, please call them directly. ) Discharge Diet: Cardiac Discharge Activity: Use walker/crutches as instructed, Wheelchair as instructed, As per PT/OT instructions and Oxygen as instructed Patient Instructions: Metoprolol (By mouth) (Lopressor, Toprol XL), Levoth yroxine (By mouth), Gabapentin (By mouth), Clopidogrel (By mouth), Using Oxygen at Home (DC), Hypoxia (GEN), COPD Stoplight, Opioid Safety Discharge Attestations Time Spent in Discharge Care*: less than 30 min Quality Metrics Clinical Quality Measures [ No reported AMI, CVA or VTE this stay] Coding Level of Care Code 04034 Diagnoses Dizziness R42 TIA (transient ischemic attack) G45.9 COPD (chronic obstructive pulmonary disease) J44.9 Hypoxia R09.02 Hypothyroidism (acquired) E03.9
--- NOTE | 2023-06-10 14:57 | DCPLANNER ---
this person called [facility] @ 0700 to set up a medicaid ride home. caller took information and provided trip id#[id number]
== END 2023-06-10 16:15 | disposition home or self-care (01) ==
LOC: ER 22:22 → MEDSURG 22:59
PROVIDERS: Admitting Provider Internal Medicine; Emergency Provider Emergency Medicine; PCP Family Medicine; Visit Provider Internal Medicine
DX: R42 Dizziness and giddiness (principal); G45.9 Transient cerebral ischemic attack, unspecified; J44.9 Chronic obstructive pulmonary disease, unspecified; R09.02 Hypoxemia; E03.9 Hypothyroidism, unspecified; R29.700 NIHSS score 0; G47.30 Sleep apnea, unspecified; I11.0 Hypertensive heart disease with heart failure; I50.30 Unspecified diastolic (congestive) heart failure; K21.9 Gastro-esophageal reflux disease without esophagitis; Z87.891 Personal history of nicotine dependence
CPT/HCPCS: 36415; 36600; 70450; 80048; 80053; 80061; 80306; 81001; 82550; 82803; 83735; 83880; 84146; 84439; 84443; 84484; 85025; 85610; 85730; 86140; 87086; 92523; 92610; 93005; 93306; 93880; 94660; 96372; 97110; 97116; 97162; 97166; 97530; 99285; G0378; J1650

== ENCOUNTER 2023-06-16 17:20 | Emergency (ER) | payer MEDICARE, MEDICAID, SELFPAY ==
[2023-06-16 17:22] VITALS: BP 113/75; PULSE 54; RESP 18; TEMP 36.8; O2SAT 93; BMI 37.5
--- NOTE | 2023-06-16 17:34 | XRR_ITS ---
PROCEDURE INFORMATION: Exam: XR Chest Exam date and time: 06/16/2023 6:30 PM Age: 57 years old Clinical indication: Patient HX: Weakness; Smoker TECHNIQUE: Imaging protocol: Radiologic exam of the chest. Views: 1 view. COMPARISON: CR XR chest 1V portable [id number] 03/17/2023 12:30 PM FINDINGS: Lungs: Unremarkable. No consolidation. Pleural spaces: Unremarkable. No pleural effusion. No pneumothorax. Heart/Mediastinum: Stable borderline cardiac silhouette size, likely magnified on portable radiography. Bones/joints: Unremarkable. XR/XR chest 1V portable [id number] IMPRESSION: No clear-cut acute plain radiographic cardiopulmonary abnormality or interval change from prior imaging.
--- NOTE | 2023-06-16 17:34 | ECG_ITS ---
Test Date: 2023-06-16 Pat Name: Crystal Pierre Department: Room: Gender: Female Chart Reader: : 1965 Requested By: Tenisha Casey Order Number: [id number] Clemencia MD: Joseph Wilson M.D. Measurements Intervals Carmichael Rate: 59 P: 67 SD: 143 QRS: 51 QRSD: 110 T: 54 QT: 432 QTc: 431 Interpretive Statements SINUS BRADYCARDIA Compared to ECG 06/09/2023 02:44:33 No significant changes Electronically Signed On 06-16-2023 23:31:54 CDT by Joseph Wilson M.D. [id number]
--- NOTE | 2023-06-16 17:34 | CTR_ITS ---
PROCEDURE INFORMATION: Exam: CT Head Without Contrast Exam date and time: 06/16/2023 5:42 PM Age: 57 years old Clinical indication: Altered mental status/memory loss; Confusion or disorientation; Additional info: Weakness TECHNIQUE: Imaging protocol: Computed tomography of the head without contrast. Radiation optimization: All CT scans at this facility use at least one of these dose optimization techniques: automated exposure control; mA and/or kV adjustment per patient size (includes targeted exams where dose is matched to clinical indication); or iterative reconstruction. COMPARISON: CT head wo con* [id number] 06/08/2023 9:01 PM RADIATION DOSE METRICS: Total DLP (mGy-cm): 1065.88 FINDINGS: Brain: Normal. No hemorrhage. Unremarkable white matter. No mass effect. Cerebral ventricles: No ventriculomegaly. Paranasal sinuses: Visualized sinuses are unremarkable. No fluid levels. Mastoid air cells: Visualized mastoid air cells are well aerated. Bones: Unremarkable. No acute fracture. Soft tissues: Unremarkable. CT/CT head wo con* [id number] IMPRESSION: No acute intracranial abnormality. Further evaluation with MR as clinically warranted.
--- NOTE | 2023-06-16 17:36 | ED_ITS ---
Documented by User: Tenisha Casey MD 06/16/23 17:38 HPI - Weakness 2 General: Chief complaint: Weakness Stated complaint: left weakness Time Seen by Provider: 06/16/23 17:28 Source: patient and EMS Mode of arrival: EMS Limitations: no limitations History of Present Illness: 57-year-old female is very long to the E R she had been admitted here 4 days ago for a possible TIA she had been having some left arm weakness then. She states her left arm is gotten weaker over the last 2 days. She denies any slurred speech denies any headache she denies any chest pain denies any worsening improving factors. Associated symptoms: Denies chest pain, chills, fever(s), headache(s), nausea or vomiting Review of Systems 2 Const: Denies: fever(s), chills, body aches or change in appetite Eyes: Denies: blurry vision or eye discomfort ENMT: Denies: throat pain or dental pain Card: Denies: chest pain Resp: Denies: dyspnea GI: Denies: abdominal pain, nausea, vomiting or diarrhea Musc: Denies: neck pain or back pain Skin/Breast: Denies: rash Neuro: Denies: headache(s) PFSH ED 2 PFSH: Medical History Sleep apnea Psychiatric care Diastolic heart failure Chest pain Lower extremity edema Atypical chest pain Cervical radiculopathy Pain of hand Diastolic CHF 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 Other Adopted Social History Smoking and tobacco/nicotine status: former use of tobacco/nicotine Quit status (tobacco/nicotine): has quit using Year quit tobacco: 2019 - 1-5 ciggs/day Alcohol intake: never Substance/Drug Use: never Lives independently: Yes Household members: none Housing: Apartment Current occupational status: disabled Do you think of yourself as: Straight/Heterosexual Current gender identity: Female Physical Exam 2 Const: COMMON NORMALS: no acute distress, patient oriented x3 and healthy appearing HENMT: COMMON NORMALS: normocephalic and atraumatic HEAD & SCALP: n ormocephalic and atraumatic Neck/C-Spine: COMMON NORMALS: full ROM and supple Chest: COMMONS NORMALS: normal inspection of the chest Resp: COMMON NORMALS: normal respiratory effort, No retractions, No use of accessory muscles and clear to auscultation bilaterally AUSCULTATION: clear to auscultation bilaterally Cardio: COMMON NORMALS: regular rate, regular rhythm and No murmurs present (Cardio) RATE: regular rate RHYTHM: regular rhythm GI: COMMON NORMALS: Normal to inspection, nondistended, normoactive bowel sounds present, Soft to palpation, non-tender and no masses PALPATION: Yes Soft to palpation Extremity: COMMON NORMALS: normal to inspection and full ROM Neuro: COMMON NORMALS: patient oriented x3, moves all extremities and no focal motor deficits Psych: COMMON NORMALS: mental status grossly normal, Normal thought process present and cooperative THOUGHT PROCESS: Normal thought process present Skin: COMMON NORMALS: no rashes or lesions noted and no wounds GENERAL SKIN EXAM: no rashes or lesions noted Course 2 Vital Signs: Vital signs: Vital Signs Temperature 98.3 F 06/16/23 17:22 Pulse Rate 66 06/16/23 20:01 Respiratory Rate 18 06/16/23 20:01 Blood Pressure 125/76 06/16/23 20:01 Pulse Oximetry 93 06/16/23 20:01 Oxygen Delivery Me thod Room Air 06/16/23 17:22 MDM - Weakness Lab Data 06/16/23 18:24 06/16/23 18:24 Radiology Impressions Chest X-Ray 06/16/23 17:34 IMPRESSION: No clear-cut acute plain radiographic cardiopulmonary abnormality or interval change from prior imaging. Head CT 06/16/23 17:34 IMPRESSION: No acute intracranial abnormality. Further evaluation with MR as clinically warranted. Laboratory Results WBC 7.12 10^3/uL (3.29-11.43) 06/16/23 18: RBC 4.52 10^6/uL (3.85-5.65) 06/16/23 18: Hgb 13.00 g/dL (11.27-16.99) 06/16/23 18: Hct 42.4 % (36-47) 06/16/23 18: MCV 93.8 fl (85-98) 06/16/23 18: MCH 28.8 pg (27-33) 06/16/23 18: MCHC 30.7 g/dL (30-55) 06/16/23: RDW 12.8 % (12.1-15.1) 06/16/23: Plt Count 166 10^3/cmm (157-399) 06/16/23: MPV 10.6 fL (7.4-10.4) H 06/16/23: Neut % (Auto) 44.6 % 06/16/23: Lymph % (Auto) 40.7 % 06/16/23: [place] % (Auto) 9.6 % 06/16/23 18: Eos % (Auto) 3.7 % 06/16/23: Baso % (Auto) 1.3 % 06/16/23: Neut # (Auto) 3.18 10^3/uL (1.8-7.7) 06/16/23: Lymph # (Auto) 2.9 10^3/uL (0.8-4.8) 06/16/23 18: [place] # (Auto) 0.7 10^3/uL (0.2-0.9) 06/16/23 18: Eos # (Auto) 0.3 10^3/uL (0.0-0.8) 06/16/23: Baso # (Auto) 0.1 10^3/uL (0.0-0.1) 06/16/23: Nucleated RBC % (auto) 0 % 06/16/23 18: Nucleated RBCs # 0.0 /100WBC 06/16/23 18: PT 13.00 SECONDS (12.1-14.9) 06/16/23 18:24 INR 0.95 (0.8-1.2) 06/16/23 18:24 Sodium 142 mmol/L (136-145) 06/16/23 18:24 Potassium 3.9 mmol/L (3.5-5.1) 06/16/23 18:24 Chloride 97 mmol/L (98-107) L 06/16/23 18:24 Carbon Dioxide 36 mmol/L (22-29) H 06/16/23 18:24 Anion Gap 12.9 (5-19) 06/16/23 18:24 BUN 20 mg/dL (6-20) 06/16/23 18:24 Creatinine 1.4 mg/dL (0.5-0.9) H 06/16/23 18:24 GFR Calculation 38.6 mL/min (90-130) L 06/16/23 18:24 Glucose 101 mg/dL (65-115) 06/16/23 18:24 Calculated Osmolality 297 mOsm/kg (285-295) H 06/16/23 18:24 Calcium 8.6 mg/dL (8.5-10.5) 06/16/23 18:24 Total Bilirubin 1.1 mg/dL (0.15-1.2) 06/16/23 18:24 AST 20 U/L (0-32) 06/16/23 18:24 ALT 12 U/L (0-33) 06/16/23 18:24 Alkaline Phosphatase 102 U/L (35-105) 06/16/23 18:24 Total Protein 7.5 g/dL (6.6-8.7) 06/16/23 18:24 Albumin 4.3 g/dL (3.5-5.2) 06/16/23 18:24 Globulin 3.2 g/dL (1.3-4.6) 06/16/23 18:24 Discharge Plan Discharge Patient Disposition: Home Clinical Impression: Paresthesia of arm, Left arm weakness Condition: Stable Prescriptions: No Action levetiracetam 250 mg tablet 250 mg PO BID aspirin [Adult Aspirin Regimen] 81 mg tablet,delayed release (DR/EC) 81 mg PO QAM albuterol sulfate [ProAir HFA] 90 mcg/actuation HFA aerosol inhaler 2 puff INHALATION Q6H PRN (Reason: Shortness Of Breath) magnesium oxide 500 mg tablet 500 mg PO DAILY acetaminophen 500 mg capsule 500 mg PO Q6H PRN (Reason: Pain) hydroxyzine HCl 10 mg Tablet 10 mg PO TID PRN (Reason: Anxiety) trazodone 50 mg tablet 100 mg PO BEDTIME duloxetine 60 mg capsule,delayed release(DR/EC) 60 mg PO DAILY cetirizine 10 mg tablet 10 mg PO DAILY albuterol sulfate 2.5 mg /3 mL (0.083 %) solution for nebulization 2.5 mg inhalation QID PRN (Reason: SHORTNESS OF BREATH) ondansetron HCl 4 mg tablet 4 mg PO Q6H PRN (Reason: nausea and vomiting) Qty: 20 0RF sucralfate 1 gram tablet 1 g PO TID montelukast 10 mg tablet 10 mg PO DAILY pantoprazole [Protonix] 40 mg tablet,delayed release (DR/EC) 40 mg PO DAILY Vitamin D3 25 mcg (1,000 unit) Tablet 25 mcg PO DAILY fluticasone propionate 50 mcg/actuation spray,suspension 1 spray INTRANASAL BID Gemtesa 75 mg tablet 75 mg PO DAILY potassium chloride 20 mEq tablet,ER particles/crystals 20 meq PO DAILY clopidogrel 75 mg Tablet 75 mg PO DAILY Qty: 30 0RF Toprol XL 25 mg tablet extended release 24 hr 50 mg PO DAILY Qty: 60 0RF gabapentin 100 mg Capsule 100 mg PO TID Qty: 90 0RF levothyroxine 112 mcg Tablet 112 mcg PO QAM Qty: 30 0RF atorvastatin 20 mg tablet 40 mg PO BEDTIME Qty: 60 0RF bumetanide 2 mg tablet 2 mg PO DAILY Qty: 90 3RF Discharge Orders: Discharge ED (Routine); Ordered 06/16/23 Ordered By: Zach Magana Referrals: Akila Rivera DO [Primary Care Provider] - 1 week Patient Instructions: Paresthesia (ED), Weakness (ED) Activity Restrictions/Additional Instructions: Your evaluation in the ER was essentially unremarkable for any new acute causes of your left arm numbness tingling weakness. It may be that you are having another TIA. You are currently being medically treated for these so please continue all your current medications please keep your appointment previously made for the neurologist. Otherwise please follow-up with your family practice physician within the next 7 days for further evaluation and treatment. Coding Level of Care Code ED [employer] Serrato NIH stroke score NIHSS Level Of Consciousness - 1a: 0 Level Of Consciousness Questions - 1b: Both Correct Level Of Consciousness Commands - 1c: Both Correct Best Gaze - 2: Normal Visual Sal - 3: No Visual Loss Facial Palsy - 4: Normal Motor Arm Right - 5: No Drift Motor Arm Left - 5: Drift Motor Leg Right - 6: No Drift Motor Leg Left - 6: No Drift Limb Ataxia - 7: Absent Sensory - 8: Normal Best Language - 9: No Aphasia Dysarthia - 10: Normal Extinction And Inattention - 11: 0 Score Total Score: 1 Documented by User: Zach Magana DO 06/16/23 23:59 HPI - Weakness 2 General: Chief complaint: Weakness Stated complaint: left weakness Time Seen by Provider: 06/16/23 17:28 [facility] ED 2 PFSH: Medical History Sleep apnea Psychiatric care Diastolic heart failure Chest pain Lower extremity edema Atypical chest pain Cervical radiculopathy Pain of hand Diastolic CHF 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 Other Adopted Social History Smoking and tobacco/nicotine status: former use of tobacco/nicotine Quit status (tobacco/nicotine): has quit using Year quit tobacco: 2019 - 1-5 ciggs/day Alcohol intake: never Substance/Drug Use: never Lives independently: Yes Household members: none Housing: Apartment Current occupational status: disabled Do you think of yourself as: Straight/Heterosexual Current gender identity: Female Course 2 Vital Signs: Vital signs: Vital Signs Temperature 98.3 F 06/16/23 17:22 Pulse Rate 66 06/16/23 20:01 Respiratory Rate 18 06/16/23 20:01 Blood Pressure 125/76 06/16/23 20:01 Pulse Oximetry 93 06/16/23 20:01 Oxygen Delivery Me thod Room Air 06/16/23 17:22 MDM - Weakness Medical Decision Making Patient transferred over shift change, lab work was reviewed as well as chest x- ray and head CT all of which were essentially benign. Patient was just seen and discharged for possible TIA and is on complete treatment for that. This could be unrelated or could be another TIA. Patient will be discharged home to continue her current therapy and follow-up with her PCP within the next 7 days. Lab Data 06/16/23 18:24 06/16/23 18:24 Radiology Impressions Chest X-Ray 06/16/23 17:34 IMPRESSION: No clear-cut acute plain radiographic cardiopulmonary abnormality or interval change from prior imaging. Head CT 06/16/23 17:34 IMPRESSION: No acute intracranial abnormality. Further evaluation with MR as clinically warranted. Laboratory Results WBC 7.12 10^3/uL (3.29-11.43) 06/16/23 18: RBC 4.52 10^6/uL (3.85-5.65) 06/16/23 18: Hgb 13.00 g/dL (11.27-16.99) 06/16/23 18:24 Hct 42.4 % (36-47) 06/16/23 18: MCV 93.8 fl (85-98) 06/16/23 18: MCH 28.8 pg (27-33) 06/16/23 18: MCHC 30.7 g/dL (30-55) 06/16/23 18: RDW 12.8 % (12.1-15.1) 06/16/23 18: Plt Count 166 10^3/cmm (157-399) 06/16/23 18:24 MPV 10.6 fL (7.4-10.4) H 06/16/23 18:24 Neut % (Auto) 44.6 % 06/16/23 18: Lymph % (Auto) 40.7 % 06/16/23 18:24 [place] % (Auto) 9.6 % 06/16/23 18:24 Eos % (Auto) 3.7 % 06/16/23 18: Baso % (Auto) 1.3 % 06/16/23 18:24 Neut # (Auto) 3.18 10^3/uL (1.8-7.7) 06/16/23 18: Lymph # (Auto) 2.9 10^3/uL (0.8-4.8) 06/16/23 18: [place] # (Auto) 0.7 10^3/uL (0.2-0.9) 06/16/23 18: Eos # (Auto) 0.3 10^3/uL (0.0-0.8) 06/16/23 18: Baso # (Auto) 0.1 10^3/uL (0.0-0.1) 06/16/23 18: Nucleated RBC % (auto) 0 % 06/16/23 18: Nucleated RBCs # 0.0 /100WBC 06/16/23 18: PT 13.00 SECONDS (12.1-14.9) 06/16/23 18: INR 0.95 (0.8-1.2) 06/16/23 18:24 Sodium 142 mmol/L (136-145) 06/16/23 18:24 Potassium 3.9 mmol/L (3.5-5.1) 06/16/23 18:24 Chloride 97 mmol/L (98-107) L 06/16/23 18:24 Carbon Dioxide 36 mmol/L (22-29) H 06/16/23 18:24 Anion Gap 12.9 (5-19) 06/16/23 18:24 BUN 20 mg/dL (6-20) 06/16/23 18:24 Creatinine 1.4 mg/dL (0.5-0.9) H 06/16/23 18:24 GFR Calculation 38.6 mL/min (90-130) L 06/16/23 18:24 Glucose 101 mg/dL (65-115) 06/16/23 18:24 Calculated Osmolality 297 mOsm/kg (285-295) H 06/16/23 18:24 Calcium 8.6 mg/dL (8.5-10.5) 06/16/23 18:24 Total Bilirubin 1.1 mg/dL (0.15-1.2) 06/16/23 18:24 AST 20 U/L (0-32) 06/16/23 18:24 ALT 12 U/L (0-33) 06/16/23 18:24 Alkaline Phosphatase 102 U/L (35-105) 06/16/23 18: Total Protein 7.5 g/dL (6.6-8.7) 06/16/23 18: Albumin 4.3 g/dL (3.5-5.2) 06/16/23 18: Globulin 3.2 g/dL (1.3-4.6) 06/16/23 18:24 All radiology interpretation(s) finalized by discharge Discharge Plan Discharge Patient Disposition: Home Clinical Impression: Paresthesia of arm, Left arm weakness Condition: Stable Prescriptions: No Action levetiracetam 250 mg tablet 250 mg PO BID aspirin [Adult Aspirin Regimen] 81 mg tablet,delayed release (DR/EC) 81 mg PO QAM albuterol sulfate [ProAir HFA] 90 mcg/actuation HFA aerosol inhaler 2 puff INHALATION Q6H PRN (Reason: Shortness Of Breath) magnesium oxide 500 mg tablet 500 mg PO DAILY acetaminophen 500 mg capsule 500 mg PO Q6H PRN (Reason: Pain) hydroxyzine HCl 10 mg Tablet 10 mg PO TID PRN (Reason: Anxiety) trazodone 50 mg tablet 100 mg PO BEDTIME duloxetine 60 mg capsule,delayed release(DR/EC) 60 mg PO DAILY cetirizine 10 mg tablet 10 mg PO DAILY albuterol sulfate 2.5 mg /3 mL (0.083 %) solution for nebulization 2.5 mg inhalation QID PRN (Reason: SHORTNESS OF BREATH) ondansetron HCl 4 mg tablet 4 mg PO Q6H PRN (Reason: nausea and vomiting) Qty: 20 0RF sucralfate 1 gram tablet 1 g PO TID montelukast 10 mg tablet 10 mg PO DAILY pantoprazole [Protonix] 40 mg tablet,delayed release (DR/EC) 40 mg PO DAILY Vitamin D3 25 mcg (1,000 unit) Tablet 25 mcg PO DAILY fluticasone propionate 50 mcg/actuation spray,suspension 1 spray INTRANASAL BID Gemtesa 75 mg tablet 75 mg PO DAILY potassium chloride 20 mEq tablet,ER particles/crystals 20 meq PO DAILY clopidogrel 75 mg Tablet 75 mg PO DAILY Qty: 30 0RF Toprol XL 25 mg tablet extended release 24 hr 50 mg PO DAILY Qty: 60 0RF gabapentin 100 mg Capsule 100 mg PO TID Qty: 90 0RF levothyroxine 112 mcg Tablet 112 mcg PO QAM Qty: 30 0RF atorvastatin 20 mg tablet 40 mg PO BEDTIME Qty: 60 0RF bumetanide 2 mg tablet 2 mg PO DAILY Qty: 90 3RF Discharge Orders: Discharge ED (Routine); Ordered 06/16/23 Ordered By: Zach Magana Referrals: Akila Rivera DO [Primary Care Provider] - 1 week Patient Instructions: Paresthesia (ED), Weakness (ED) Activity Restrictions/Additional Instructions: Your evaluation in the ER was essentially unremarkable for any new acute causes of your left arm numbness tingling weakness. It may be that you are having another TIA. You are currently being medically treated for these so please continue all your current medications please keep your appointment previously made for the neurologist. Otherwise please follow-up with your family practice physician within the next 7 days for further evaluation and treatment. Coding Level of Care Code ED [employer] Work[employer] for [employer] Serrato NIH stroke score Score Total Score: 1
[2023-06-16 17:57] VITALS: BP 130/66; PULSE 93; RESP 18; O2SAT 89
[2023-06-16 18:35] LABS: Basophils # 0.1 10^3/uL (0.0-0.1); Basophils % 1.3 %; Eosinophils # 0.3 10^3/uL (0.0-0.8); Eosinophils % 3.7 %; Hematocrit 42.4 % (36-47); Lymphocytes # 2.9 10^3/uL (0.8-4.8); Lymphocytes % 40.7 %; Mean Corpuscular HGB Conc 30.7 g/dL (30-55); Mean Corpuscular Hemoglobin 28.8 pg (27-33); Mean Corpuscular Volume 93.8 fl (85-98); Mean Platelet Volume 10.6 fL (7.4-10.4); Monocytes # 0.7 10^3/uL (0.2-0.9); Monocytes % 9.6 %; Neutrophils # 3.18 10^3/uL (1.8-7.7); Neutrophils % 44.6 %; Nucleated Red Blood Cells % 0 %; Platelet Count 166 10^3/cmm (157-399); Red Blood Count 4.52 10^6/uL (3.85-5.65); Red Cell Distribution Width 12.8 % (12.1-15.1); White Blood Count 7.12 10^3/uL (3.29-11.43)
[2023-06-16 18:41] LABS: INR 0.95 (0.8-1.2)
[2023-06-16 18:50] LABS: Alanine Aminotransferase 12 U/L (0-33); Albumin Level 4.3 g/dL (3.5-5.2); Alkaline Phosphatase 102 U/L (35-105); Anion Gap 12.9 (5-19); Aspartate Amino Transferase 20 U/L (0-32); Blood Urea Nitrogen 20 mg/dL (6-20); Calcium 8.6 mg/dL (8.5-10.5); Carbon Dioxide 36 mmol/L (22-29); Chloride 97 mmol/L (98-107); Creatinine Clr Calc Pharmacy 55.6665; Globulin 3.2 g/dL (1.3-4.6); Glomerular Filtration Rate 38.6 mL/min (90-130); Glucose 101 mg/dL (65-115); Osmolality Calculated 297 mOsm/kg (285-295); Potassium 3.9 mmol/L (3.5-5.1); Sodium 142 mmol/L (136-145); Total Bilirubin 1.1 mg/dL (0.15-1.2); Total Protein 7.5 g/dL (6.6-8.7)
[2023-06-16 20:01] VITALS: BP 125/76; PULSE 66; RESP 18; O2SAT 93
== END 2023-06-16 20:03 | disposition home or self-care (01) ==
PROVIDERS: Emergency Provider Emergency Medicine; PCP Family Medicine
DX: R20.2 Paresthesia of skin (principal); R53.1 Weakness; I11.0 Hypertensive heart disease with heart failure; I50.30 Unspecified diastolic (congestive) heart failure; J44.9 Chronic obstructive pulmonary disease, unspecified; Z87.891 Personal history of nicotine dependence
CPT/HCPCS: 36415; 70450; 71045; 80053; 85025; 85610; 93005; 99285

== ENCOUNTER 2023-06-22 11:50 | Observation (INO) | payer MEDICARE, MEDICAID, SELFPAY ==
[2023-06-22] VITALS (12 sets, daily range): BP systolic 101–146; BP diastolic 49–77; PULSE 51–65; RESP 13–22; TEMP 36.4–36.8; O2SAT 93–100; BMI 38.0; BMI 38.1
--- NOTE | 2023-06-22 12:04 | XR_ITS ---
WS: [id number] Portable AP upright chest, 06/22/2023 Clinical Data: Weakness Comparison: Portable chest, 06/16/2023 Findings: No nodules, masses or effusions are seen. The heart is normal. The pulmonary vascularity is not increased. No pneumonia or pneumothorax is seen. Monitor leads are on the chest wall. XR/XR chest 1V [id number] Impression: Negative chest.
--- NOTE | 2023-06-22 12:05 | ECG_ITS ---
[facility] Test Date: 2023-06-22 Pat Name: Crystal Pierre Department: Room: Gender: Female Pearl Stringer: : 1965 Requested By: Teena Garcia Order Number: [id number] Clemencia MD: Funmilayo De La Rosa M.D. Measurements Intervals [place] Rate: 52 P: 70 NM: 138 QRS: 64 QRSD: 109 T: 72 QT: 422 QTc: 393 Interpretive Statements SINUS BRADYCARDIA PROBABLE LATERAL MYOCARDIAL INFARCTION , OF INDETERMINATE AGE [35 ms Q WAVE IN I/aVL/V5/V6] Compared to ECG 06/16/2023 17:53:03 Myocardial infarct finding now present Electronically Signed On 06-23-2023 0:04:58 CDT by Funmilayo De La Rosa M.D. [id number]
[2023-06-22 12:39] LABS: Basophils # 0.1 10^3/uL (0.0-0.1); Basophils % 1.3 %; Eosinophils # 0.3 10^3/uL (0.0-0.8); Eosinophils % 4.9 %; Hematocrit 41.8 % (36-47); Lymphocytes # 1.9 10^3/uL (0.8-4.8); Lymphocytes % 30.9 %; Mean Corpuscular HGB Conc 29.7 g/dL (30-55); Mean Corpuscular Hemoglobin 28.4 pg (27-33); Mean Corpuscular Volume 95.9 fl (85-98); Mean Platelet Volume 10.5 fL (7.4-10.4); Monocytes # 0.6 10^3/uL (0.2-0.9); Monocytes % 9.9 %; Neutrophils # 3.22 10^3/uL (1.8-7.7); Nucleated Red Blood Cells % 0 %; Platelet Count 249 10^3/cmm (157-399); Red Blood Count 4.36 10^6/uL (3.85-5.65); Red Cell Distribution Width 12.9 % (12.1-15.1); White Blood Count 6.08 10^3/uL (3.29-11.43)
--- NOTE | 2023-06-22 12:45 | PC.PHAR ---
PT HAS NURSE FROM [facility] [phone]. THEY ARE FAXING CURRENT MED LIST. 06/22/23
--- NOTE | 2023-06-22 12:49 | W.ED.WEAKNES ---
HPI - Weakness General: Chief complaint: Weakness Stated complaint: weakness Time Seen by Provider: 06/22/23 11:57 History of Present Illness: 57-year-old female with history of chronic hypoxemic respiratory failure on 2-3 L nasal cannula at all times, obstructive sleep apnea on a CPAP at night, venous stasis, obesity, diastolic heart failure, psychiatric issues, congestive heart failure, COPD, hypertension, GERD, seizure disorder, hypothyroidism who presents to the emergency room with weakness. Says has been going on for about a week. Generalized. She said her home health nurse came in today and called an ambulance. She says she feels a little bit short of breath. She has chronic lower extremity swelling and does not know if this is any worse or better. She lives at home alone and gets around in a wheelchair. No chest pain. No fevers. No nausea or vomiting. No abdominal pain. No focal motor deficits. No altered mental status. Review of Systems Narrative: Constitutional symptoms: Negative except as documented in HPI. Skin symptoms: Negative except as documented in HPI. Eye symptoms: Negative except as documented in HPI. ENMT symptoms: Negative except as documented in HPI. Respiratory symptoms: Negative except as documented in HPI. Cardiovascular symptoms: Negative except as documented in HPI. Gastrointestinal symptoms: Negative except as documented in HPI. Genitourinary symptoms: Negative except as documented in HPI. Musculoskeletal symptoms: Negative except as documented in HPI. Neurologic symptoms: Negative except as documented in HPI. Psychiatric symptoms: Negative except as documented in HPI. Endocrine symptoms: Negative except as documented in HPI. 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 Other Adopted Social History Smoking and tobacco/nicotine status: former use of tobacco/nicotine Quit status (tobacco/nicotine): has quit using Year quit tobacco: 2019 - 1-5 ciggs/day Alcohol intake: never Substance/Drug Use: never Lives independently: Yes Household members: none Housing: Apartment Current occupational status: disabled Do you think of yourself as: Straight/Heterosexual Current gender identity: Female Physical Exam Narrative: EXAM NARRATIVE: General: no acute distress. Skin: Warm, dry. Head: Normocephalic, atraumatic. Neck: Supple, trachea midline. Eye: Extraocular movements are intact. Ears, nose, mouth and throat: mucosa moist. Cardiovascular: Regular, Normal peripheral perfusion. Venous stasis/brawny edema Respiratory: Some mild scattered expiratory wheeze, respirations are non-labored, breath sounds are equal, Symmetrical chest wall expansion. Gastrointestinal: Soft, Nontender, Non distended, Normal bowel sounds. Musculoskeletal: Normal ROM, no deformity. Neurological: Alert and oriented, No focal neurological deficit observed. Psychiatric: Cooperative, patient has an odd affect and is a little bit sleepy. Course Vital Signs: Vital signs: Vital Signs Temperature 98.1 F 06/22/23 11:58 Pulse Rate 51 L 06/22/23 14:56 Respiratory Rate 14 06/22/23 14:56 Blood Pressure 122/62 06/22/23 14:02 Pulse Oximetry 100 06/22/23 14:56 Oxygen Delivery Me thod Nasal Cannula 06/22/23 13:31 Oxygen Flow Rate 2 06/22/23 13:31 MDM - Weakness Medical Decision Making Medical decision making: Differential diagnosis for patient presenting with generalized weakness including but not limited to and based on the above HPI, review of systems and physical exam: Sepsis. Dehydration. Renal failure. Electrolyte abnormalities. Anemia. Congestive heart failure. Hypotension. Coronary syndrome. Hepatitis. Cirrhosis. Infections such as pneumonia, urinary tract infection, [place] illness, Cellulitis, Viral infections including influenza and Covid-19. Workup: labwork and lab/exam driven imaging ordered to evaluate, rule in and rule out above pathologies. EKG: Time 1200 rate 52 sinus bradycardia, No ST-T changes, no ectopy, normal AR & QRS intervals, This was reviewed and interpreted by myself the ER physician at 1205 Repeat EKG: Time 1414 rate 53. Unchanged from previous. Sinus bradycardia, No ST-T changes, no ectopy, normal AR & QRS intervals, This was reviewed and interpreted by myself the ER physician at 1420 Chest x-ray: No acute process. No infiltrate. No pneumothorax. No cardiomegaly. This was reviewed and interpreted by myself the ER physician. Lab Review: Laboratory results were reviewed and interpreted by myself the emergency room physician. White count is 6. Hemoglobin is 12. BMP is positive for a bicarb of 38. This is up some from previous. BUN and creatinine are 15 and 1.0. Her glucose is 123. ABG was ordered secondary to the list. Urinalysis was negative for infection. Lactate was negative. Troponins were negative. AST and ALT were normal. proBNP was 168. AB.35/72/94 on 2 L nasal cannula. I believe she has decompensated some. She obviously does compensate some at home with her high level bicarb. But her pH has dropped 7.35 and her symptoms are consistent with hypercapnia. I reviewed the patient's medical record. Reexamination: Patient is comfortable and stable on a BiPAP. She is maintaining her oxygen sats on 2 L nasal cannula until the BiPAP was started. No altered mental status. No focal motor deficits at this time. She still is little bit somnolent. Consultation: I spoke with the hospitalist who is on-call Dr. Lowery. She agrees to admission. Assessment and plan: Acute on chronic hypercapnic respiratory failure Chronic hypoxemic respiratory failure Encephalopathy Generalized weakness -BiPAP, Solu-Medrol, multiple updrafts -I discussed the patient with the hospitalist on-call who is admitting the patient. - Discussed findings and plan with patient. Answered any questions. - All laboratory values were reviewed and interpreted personally by myself, the ER physician - All imaging was reviewed and interpreted personally by myself, the ER physician. - Evaluation and treatment of this problem were appropriate in the emergency setting -I spent a total of >35 minutes of critical care time managing the patient, independent of any other practitioner. -The time involved in the performance of separately reportable procedures was not counted towards critical care time. Lab Data 06/22/23 12:13 06/22/23 12:13 Radiology Impressions Chest X-Ray 06/22/23 12:04 Impression: Negative chest. Laboratory Results WBC 6.08 10^3/uL (3.29-11.43) 06/22/23 12:13 RBC 4.36 10^6/uL (3.85-5.65) 06/22/23 12:13 Hgb 12.40 g/dL (11.27-16.99) 06/22/23 12:13 Hct 41.8 % (36-47) 06/22/23 12:13 MCV 95.9 fl (85-98) 06/22/23 12:13 MCH 28.4 pg (27-33) 06/22/23 12:13 MCHC 29.7 g/dL (30-55) L 06/22/23 12:13 RDW 12.9 % (12.1-15.1) 06/22/23 12:13 Plt Count 249 10^3/cmm (157-399) 06/22/23 12:13 MPV 10.5 fL (7.4-10.4) H 06/22/23 12:13 Neut % (Auto) 53.0 % 06/22/23 12:13 Lymph % (Auto) 30.9 % 06/22/23 12:13 Christian % (Auto) 9.9 % 06/22/23 12:13 Eos % (Auto) 4.9 % 06/22/23 12:13 Baso % (Auto) 1.3 % 06/22/23 12:13 Neut # (Auto) 3.22 10^3/uL (1.8-7.7) 06/22/23 12:13 Lymph # (Auto) 1.9 10^3/uL (0.8-4.8) 06/22/23 12:13 Christian # (Auto) 0.6 10^3/uL (0.2-0.9) 06/22/23 12:13 Eos # (Auto) 0.3 10^3/uL (0.0-0.8) 06/22/23 12:13 Baso # (Auto) 0.1 10^3/uL (0.0-0.1) 06/22/23 12:13 Nucleated RBC % (auto) 0 % 06/22/23 12:13 Nucleated RBCs # 0.0 /100WBC 06/22/23 12:13 Specimen Type Arterial 06/22/23 14:40 Sample Site Brachial, right 06/22/23 14:40 ABG pH 7.36 (7.35-7.45) 06/22/23 14:40 ABG pCO2 71.6 mmHg (35-45) H* 06/22/23 14:40 ABG pO2 94.0 mmHg (80.0-100.0) 06/22/23 14:40 ABG PO2/FiO2 Ratio 0 06/22/23 14:40 ABG HCO3 40.3 mmol/L (22-26) H 06/22/23 14:40 ABG O2 Saturation 93.9 06/22/23 14:40 ABG Base Excess 11.8 mmol/L (-2.0-2.0) H 06/22/23 14:40 Nestor Test N/a 06/22/23 14:40 A-a O2 Gradient 2.3 mmHg (5-10) L 06/22/23 14:40 Hematocrit 39.1 % (37-47) 06/22/23 14:40 Hgb O2 Saturation 92.7 % (95-100) L 06/22/23 14:40 Carboxyhemoglobin 0.3 %THgb (0.4-20.1) L 06/22/23 14:40 Methemoglobin 1.0 % (0.4-1.5) 06/22/23 14:40 Total Hemoglobin 12.8 g/dL (12-16) 06/22/23 14:40 Sodium 143.0 mmol/L (131-143) 06/22/23 14:40 Potassium 3.7 mmol/L (3.5-5.0) 06/22/23 14:40 Glucose 116.0 mg/dL (70-115) H 06/22/23 14:40 Ionized Calcium 1.2 mmol/L (1.1-1.4) 06/22/23 14:40 O2 Delivery Device Nc 06/22/23 14:40 O2 Liters/Min 2.0 % 06/22/23 14:40 FiO2 28.0 % 06/22/23 14:40 Account Group Supervisor ID Amh 06/22/23 14:40 Sodium 141 mmol/L (136-145) 06/22/23 12:13 Potassium 3.9 mmol/L (3.5-5.1) 06/22/23 12:13 Chloride 96 mmol/L (98-107) L 06/22/23 12:13 Carbon Dioxide 38 mmol/L (22-29) H 06/22/23 12:13 Anion Gap 10.9 (5-19) 06/22/23 12:13 BUN 15 mg/dL (6-20) 06/22/23 12:13 Creatinine 1.0 mg/dL (0.5-0.9) H 06/22/23 12:13 GFR Calculation 56.9 mL/min (90-130) L 06/22/23 12:13 Glucose 123 mg/dL (65-115) H 06/22/23 12:13 Calculated Osmolality 294 mOsm/kg (285-295) 06/22/23 12:13 Lactic Acid 1.4 mmol/L (0.5-2.2) 06/22/23 12:13 Calcium 9.1 mg/dL (8.5-10.5) 06/22/23 12:13 Total Bilirubin 1.1 mg/dL (0.15-1.2) 06/22/23 12:13 AST 21 U/L (0-32) 06/22/23 12:13 ALT 11 U/L (0-33) 06/22/23 12:13 Alkaline Phosphatase 93 U/L (35-105) 06/22/23 12:13 Troponin T Baseline 15 ng/L (0-10) H 06/22/23 12:13 Troponin T 120 Minute 16.47 ng/L (0-10) H 06/22/23 14:30 Delta Troponin T 1.47 ABS# (0-10) 06/22/23 14:30 C-Reactive Protein 4.6 mg/L (0.0-4.9) 06/22/23 12:13 NT-Pro-B Natriuret Pep 168 pg/mL (0-125) H 06/22/23 12:13 Total Protein 6.9 g/dL (6.6-8.7) 06/22/23 12:13 Albumin 3.9 g/dL (3.5-5.2) 06/22/23 12:13 Globulin 3.0 g/dL (1.3-4.6) 06/22/23 12:13 Urine Color Light yellow (Yellow) 06/22/23 14:05 Urine Appearance Clear (CLEAR) 06/22/23 14:05 Urine pH 6.5 (5-7) 06/22/23 14:05 Ur Specific [place] 1.010 (1.005-1.030) 06/22/23 14:05 Urine Protein Neg (Negative) 06/22/23 14:05 Urine Glucose (UA) Norm (Normal) 06/22/23 14:05 Urine Ketones Negative (Negative) 06/22/23 14:05 Urine Blood Neg (Negative) 06/22/23 14:05 Urine Nitrate Negative (Negative) 06/22/23 14:05 Urine Bilirubin Neg (Negative) 06/22/23 14:05 Urine Urobilinogen Norm mg/dL (Negative) 06/22/23 14:05 Ur Leukocyte Esterase Negative (Negative) 06/22/23 14:05 Urine RBC None /hpf (0-2) 06/22/23 14:05 Urine WBC None /hpf (0-5) 06/22/23 14:05 Ur Squamous Epith Cells None /hpf (0-5) 06/22/23 14:05 Amorphous Sediment Not Reportable 06/22/23 14:05 Urine Bacteria None /hpf (NONE) 06/22/23 14:05 Urine Mucus None /hpf 06/22/23 14:05 All radiology interpretation(s) finalized by discharge Discharge Plan Discharge Patient Disposition: Admitted As Inpatient Clinical Impression: COPD with acute exacerbation, Acute and chronic respiratory failure with hypercapnia, Chronic hypoxic respiratory failure, Encephalopathy, Generalized weakness Condition: Stable Coding Level of Care Code ED Hydrodynamics Teacher for Dc Serrato
[2023-06-22 12:55] LABS: Lactic Sepsis W/Reflex 1.4 mmol/L (0.5-2.2)
[2023-06-22 12:59] LABS: Troponin(5th) Baseline 15 ng/L (0-10)
[2023-06-22 13:06] LABS: Alanine Aminotransferase 11 U/L (0-33); Albumin Level 3.9 g/dL (3.5-5.2); Alkaline Phosphatase 93 U/L (35-105); Anion Gap 10.9 (5-19); Aspartate Amino Transferase 21 U/L (0-32); Blood Urea Nitrogen 15 mg/dL (6-20); C Reactive Protein 4.6 mg/L (0.0-4.9); Calcium 9.1 mg/dL (8.5-10.5); Carbon Dioxide 38 mmol/L (22-29); Chloride 96 mmol/L (98-107); Creatinine Clr Calc Pharmacy 78.4601; Glomerular Filtration Rate 56.9 mL/min (90-130); Glucose 123 mg/dL (65-115); NT Pro B Type Natriuretic Pept 168 pg/mL (0-125); Osmolality Calculated 294 mOsm/kg (285-295); Potassium 3.9 mmol/L (3.5-5.1); Sodium 141 mmol/L (136-145); Total Bilirubin 1.1 mg/dL (0.15-1.2); Total Protein 6.9 g/dL (6.6-8.7)
--- NOTE | 2023-06-22 14:05 | ECG_ITS ---
[facility] Test Date: 2023-06-22 Pat Name: Crystal Pierre Department: Room: Gender: Female Director Of Strategic Marketing: : 1965 Requested By: Teena Garcia Order Number: [id number] Clemencia MD: Funmilayo De La Rosa M.D. Measurements Intervals [place] Rate: 53 P: 72 CA: 140 QRS: 69 QRSD: 95 T: 71 QT: 433 QTc: 407 Interpretive Statements SINUS BRADYCARDIA WITH SINUS ARRHYTHMIA Compared to ECG 06/22/2023 12:00:51 Myocardial infarct finding no longer present Electronically Signed On 06-23-2023 0:34:18 CDT by Funmilayo De La Rosa M.D. [id number]
[2023-06-22 14:20] LABS: Bilirubin Urine Neg (Negative); Blood Urine Neg (Negative); Glucose Urine UA Norm (Normal); Ketones Urine Negative (Negative); Leukocyte Esterase Urine Negative (Negative); Nitrate Urine Negative (Negative); Protein Urine Neg (Negative); Urine Appearance Clear (CLEAR); Urine Color Light yellow (Yellow); Urobilinogen Urine Norm (Negative); pH Urine 6.5 (5-7)
[2023-06-22 14:23] LABS: Add Urine Culture? No
[2023-06-22 14:51] LABS: ABG PCO2 71.6 mmHg (35-45); ABG PH Result 7.36 (7.35-7.45); Alveolar-Arterial Oxygen Gradi 2.3 mmHg (5-10); Arterial Blood Gas Hematocrit 39.1 % (37-47); Base Excess ABG 11.8 mmol/L (-2.0-2.0); Blood Gas Operator Identificat AMH; Blood Gas Sample Site Brachial, right; Blood Gas Sample Type Arterial; Carboxyhemoglobin 0.3 %THgb (0.4-20.1); HCO3 ABG 40.3 mmol/L (22-26); HGB O2 Sat 92.7 % (95-100); Ionized Calcium Level - ABG 1.2 mmol/L (1.1-1.4); Oxygen Device NC; Oxygen Saturation ABG 93.9; PO2 FiO2 Ratio Arterial Blood 0; Potassium Level - ABG 3.7 mmol/L (3.5-5.0); Total Hemoglobin 12.8 g/dL (12-16)
[2023-06-22 14:56] LABS: Troponin 5 2HR 16.47 ng/L (0-10); Troponin 5 2HR Delta 1.47 ABS# (0-10)
[2023-06-22] MEDS: ipratropium-albuterol 3 mL Neb INHALATION (15:56)
[2023-06-22] MEDS: albuterol 2.5 mg/3 mL Neb INHALATION (15:57)
[2023-06-22] MEDS: methylPREDNISolone sod succ 125 mg/2 mL INJ IVP (15:59)
--- NOTE | 2023-06-22 16:26 | P.HP_ITS ---
Providers/Chief Complaint 2 Admitting Physician: Lucille Lowery MD Primary Care Provider: Akila Rivera DO Chief Complaint: weakness History of Present Illness Crystal Pierre is a 57 year old female Past medical history of CHF, COPD, asthma, hypertension, GERD, hypothyroidism, seizure disorder presented to the hospital for weakness. She uses CPAP at night for her MARK. She says she has been weak for about a week which is generalized. Her home health nurse came in and called the ambulance. Patient also complained of feeling slightly short of breath. Patient does have chronic lower extremity edema and she lives at home alone and uses a wheelchair. Denies chest pain, fever, nausea, vomiting, abdominal pain, diarrhea, constipation. Patient well-known to me from a previous hospitalization. Patient was recommended to go to rehab however she refused and still wanted to go home. Therefore she was discharged Medications/Allergies Home Medications Medication Instructions Recorded Confirmed Last Taken Type albuterol sulfate 90 mcg/actuation 2 puff inhalation Q6H PRN 02/15/19 06/22/23 10/23/19 History aerosol inhaler (ProAir HFA) Shortness Of Breath aspirin 81 mg tablet,delayed 81 mg PO QAM 02/15/19 06/22/23 06/22/23 History release (Adult Aspirin Regimen) levetiracetam 250 mg tablet 250 mg PO BID 02/15/19 06/22/23 06/22/23 History hydroxyzine HCl 10 mg tablet 10 mg PO TID PRN Anxiety 01/20/21 06/22/23 06/21/23 History duloxetine 60 mg capsule,delayed 60 mg PO QAM 04/05/21 06/22/23 06/22/23 History release trazodone 50 mg tablet 100 mg PO BEDTIME 04/05/21 06/22/23 06/21/23 History cetirizine 10 mg tablet 10 mg PO DAILY 01/11/22 06/22/23 06/22/23 History acetaminophen 500 mg capsule 500 mg PO Q6H PRN Pain 08/24/22 06/22/23 Unknown History ondansetron HCl 4 mg tablet 4 mg PO Q6H PRN nausea and 02/14/23 06/22/23 Unknown Rx vomiting #20 tabs montelukast 10 mg tablet 10 mg PO DAILY 03/15/23 06/22/23 06/22/23 History pantoprazole 40 mg tablet,delayed 40 mg PO DAILY 03/15/23 06/22/23 06/22/23 History release (Protonix) sucralfate 1 gram tablet 1 g PO TID 03/15/23 06/22/23 06/22/23 History albuterol sulfate 2.5 mg/3 mL 2.5 mg inhalation QID PRN 03/17/23 06/22/23 Unknown History (0.083 %) solution for nebulization SHORTNESS OF BREATH cholecalciferol (vitamin D3) 25 25 mcg PO DAILY 06/09/23 06/22/23 06/22/23 History mcg (1,000 unit) tablet (Vitamin D3) fluticasone propionate 50 1 spray intranasal BID 06/09/23 06/22/23 06/22/23 History mcg/actuation nasal spray,suspension potassium chloride 20 mEq 20 meq PO DAILY 06/09/23 06/22/23 06/22/23 History tablet,extended release(part/cryst) vibegron 75 mg tablet (Gemtesa) 75 mg PO DAILY 06/09/23 06/22/23 06/22/23 History atorvastatin 20 mg tablet 40 mg (2 x 20 mg) PO BEDTIME #60 06/10/23 06/22/23 06/21/23 Rx tabs clopidogrel 75 mg tablet 75 mg PO DAILY #30 tabs 06/10/23 06/22/23 06/22/23 Rx gabapentin 100 mg capsule 100 mg PO TID #90 caps 06/10/23 06/22/23 06/22/23 Rx levothyroxine 112 mcg tablet 112 mcg PO QAM #30 tabs 06/10/23 06/22/23 06/22/23 Rx metoprolol succinate 25 mg 50 mg (2 x 25 mg) PO DAILY #60 tabs 06/10/23 06/22/23 06/22/23 Rx tablet,extended release 24 hr (Toprol XL) bumetanide 2 mg tablet 2 mg PO QAM 06/22/23 06/22/23 06/22/23 History magnesium oxide 400 mg PO BEDTIME 06/22/23 06/22/23 06/21/23 History nystatin 100,000 unit/gram topical 1 applic topical DAILY PRN Rash 06/22/23 06/22/23 Unknown History cream spironolactone 25 mg tablet 25 mg PO BEDTIME 06/22/23 06/22/23 06/21/23 History Allergies Allergy/AdvReac Type Severity Reaction Status Date / Time chlorpromazine Allergy Unknown ALGY-Rash Verified 04/04/23 19:14 diphenhydramine Allergy Unknown Unknown Verified 04/04/23 19:14 Iodinated Contrast Media Allergy Unknown ALGY-Hives Verified 04/04/23 19:14 tramadol Allergy Unknown Verified 04/04/23 19:14 amoxicillin AdvReac Unknown ADR-Nausea Verified 04/04/23 19:14 codeine AdvReac Unknown ADR-Vomitin Verified 04/04/23 19:14 g Penicillins AdvReac Unknown ADR-Vomitin Verified 04/04/23 19:14 g PFSH Acute 2 PFSH: Medical History Sleep apnea Psychiatric care Diastolic heart failure Chest pain Lower extremity edema Atypical chest pain Cervical radiculopathy Pain of hand Diastolic CHF 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 Other Adopted Social History Smoking and tobacco/nicotine status: former use of tobacco/nicotine Quit status (tobacco/nicotine): has quit using Year quit tobacco: 2019 - 1-5 ciggs/day Alcohol intake: never Substance/Drug Use: never Lives independently: Yes Household members: none Housing: Apartment Current occupational status: disabled Do you think of yourself as: Straight/Heterosexual Current gender identity: Female Vitals/I&O/Wt Last Vital Signs Temp 98.1 F 06/22/23 11:58 Pulse 65 06/22/23 16:00 Resp 22 H 06/22/23 16:00 BP 146/49 06/22/23 16:00 Pulse Ox 93 06/22/23 16:00 O2 Del Method BiPAP 06/22/23 16:00 O2 Flow Rate 2 06/22/23 13:31 FiO2 28 06/22/23 15:57 Weight last 48 hrs Weight 110.223 kg Physical Exam 2 Narrative: General: Comfortable appearing female, Denies dizziness currently. HEENT: Head atraumatic, normocephalic to visual inspection, CV: Normal rhythm, RRR, S1-S2 noted, no murmurs rubs or gallops noted. Pulm: Lungs clear to auscultation bilaterally. GI: Obese abdomen, soft, nontender Extremities: Capillary refill <2 seconds, 2+ edema noted bilateral lower extremities. NEURO: alert and orientated x 3, eating sitting up in bed at this time on BiPAP. Data 06/23/23 05:33 06/23/23 05:33 Micro: Microbiology 06/22/23 12:13 Blood Culture - Preliminary Blood SPECIMEN COLLECTED 06/22/23 12:29 Blood Culture - Preliminary Blood SPECIMEN COLLECTED A&P Assessment and plan (1) Essential (primary) hypertension: (2) Diastolic heart failure: Qualifiers: Heart failure chronicity: chronic Qualified Code(s): I50.32 - Chronic diastolic (congestive) heart failure (3) Hypothyroidism (acquired): (4) GERD (gastroesophageal reflux disease): Qualifiers: Esophagitis presence: esophagitis presence not specified Qualified Code(s): K21.9 - Gastro-esophageal reflux disease without esophagitis (5) COPD with acute exacerbation: (6) Lower extremity edema: (7) Generalized weakness: (8) Sleep apnea: Plan #COPD exacerbation #Obstructive sleep apnea #Chronically on 2 to 3 L nasal cannula on the clock #Obesity #Diastolic heart failure #Hypertension #GERD #Hypothyroidism #Seizure disorder ? Placed on Solu-Medrol 40 every 12 hours ? Azithromycin 500 daily x 5 days - Sputum Gram stain culture ? Blood cultures obtained in ER ? Continue all home medications. Aspirin, Bumex, atorvastatin, duloxetine, gabapentin, Keppra, levothyroxine, Protonix, sucralfate ? DuoNeb every 6 hours as needed ? PT OT ? Continue BiPAP as needed ? Home oxygen evaluation at discharge. Full code Attestations 2 Medical Necessity Statement*: Will need less than 2 midnight stay for evaluation and treatment of dizziness. Diagnoses Essential (primary) hypertension I10 Chronic diastolic heart failure I50.32 Heart failure chronicity: chronic Hypothyroidism (acquired) E03.9 GERD (gastroesophageal reflux disease) K21.9 Esophagitis presence: esophagitis presence not specified COPD with acute exacerbation J44.1 Lower extremity edema R60.0 Generalized weakness R53.1 Sleep apnea G47.30
[2023-06-22 17:08] LABS: Procalcitonin 0.03 ng/mL (0-0.5); Thyroid Stimulating Hormone 0.93 uIU/mL (0.27-4.20)
[2023-06-22] MEDS: sodium chloride 0.9% 1,000 ML 75 ML IV (17:30)
[2023-06-22] MEDS: azithromycin 500 MG in sodium chloride 0.9% 250 ML 250 MG IV (17:30)
[2023-06-22] MEDS: heparin 5,000 unit/mL INJ 1 mL 5000 UNIT SUBCUT (17:31)
[2023-06-22] MEDS: levETIRAcetam 500 mg Tablet 250 MG PO (17:31)
--- NOTE | 2023-06-22 18:39 | ECG_ITS ---
[facility] Test Date: 2023-06-22 Pat Name: Crystal Pierre Department: Room: 260 Gender: Female Mathematics Technician: : 1965 Requested By: Teena Garcia Order Number: [id number] Clemencia MD: Funmilayo De La Rosa M.D. Measurements Intervals [place] Rate: 64 P: 73 [place]: 144 QRS: 62 QRSD: 106 T: 65 QT: 411 QTc: 427 Interpretive Statements SINUS RHYTHM Compared to ECG 06/22/2023 14:14:55 Sinus bradycardia no longer present Sinus arrhythmia no longer present Electronically Signed On 06-23-2023 0:35:32 CDT by Funmilayo De La Rosa M.D. [id number]
[2023-06-22 19:46] LABS: Troponin 5 6HR 13.06 ng/L (0-10)
[2023-06-22 19:49] LABS: Troponin 5 6HR Delta -1.94 ng/L (0-12)
[2023-06-22] MEDS: atorvastatin 40 mg Tablet PO (21:53)
[2023-06-22] MEDS: magnesium oxide 400 mg tablet PO (21:53)
[2023-06-22] MEDS: sucralfate 1 gm Tablet PO (21:53)
[2023-06-22] MEDS: gabapentin 100 mg Capsule PO (21:53)
[2023-06-22] MEDS: trazodone 50 mg Tablet 100 MG PO (21:53)
[2023-06-23] VITALS (7 sets, daily range): BP systolic 112–127; BP diastolic 52–70; PULSE 56–69; RESP 14–18; TEMP 36.3–36.7; O2SAT 94–100
[2023-06-23] MEDS: methylPREDNISolone sod succ 40 mg/mL INJ IVP (02:53)
[2023-06-23] MEDS: duloxetine 60 mg Capsule PO (05:27)
[2023-06-23] MEDS: bumetanide 1 mg Tablet 2 MG PO (05:27)
[2023-06-23] MEDS: levothyroxine 112 mcg Tablet PO (05:27)
[2023-06-23] MEDS: aspirin 81 mg EC Tablet PO (05:27)
[2023-06-23] MEDS: heparin 5,000 unit/mL INJ 1 mL 5000 UNIT SUBCUT (05:28)
[2023-06-23] MEDS: sodium chloride 0.9% 1,000 ML 75 ML IV (05:32)
[2023-06-23 05:44] LABS: Basophils % 0.2 %; Hematocrit 37.7 % (36-47); Lymphocytes % 23.4 %; Mean Corpuscular HGB Conc 30.2 g/dL (30-55); Mean Corpuscular Hemoglobin 28.9 pg (27-33); Mean Corpuscular Volume 95.7 fl (85-98); Mean Platelet Volume 10.4 fL (7.4-10.4); Monocytes # 0.1 10^3/uL (0.2-0.9); Monocytes % 1.2 %; Neutrophils # 3.14 10^3/uL (1.8-7.7); Nucleated Red Blood Cells % 0 %; Platelet Count 241 10^3/cmm (157-399); Red Blood Count 3.94 10^6/uL (3.85-5.65); Red Cell Distribution Width 12.7 % (12.1-15.1); White Blood Count 4.19 10^3/uL (3.29-11.43)
[2023-06-23 06:06] LABS: Alanine Aminotransferase 9 U/L (0-33); Albumin Level 3.4 g/dL (3.5-5.2); Alkaline Phosphatase 79 U/L (35-105); Blood Urea Nitrogen 18 mg/dL (6-20); Calcium 8.9 mg/dL (8.5-10.5); Carbon Dioxide 30 mmol/L (22-29); Chloride 100 mmol/L (98-107); Creatinine Clr Calc Pharmacy 98.5829; Globulin 2.7 g/dL (1.3-4.6); Glomerular Filtration Rate 73.7 mL/min (90-130); Glucose 146 mg/dL (65-115); Magnesium 1.9 mg/dL (1.7-2.3); Osmolality Calculated 293 mOsm/kg (285-295); Sodium 139 mmol/L (136-145); Total Bilirubin 0.8 mg/dL (0.15-1.2); Total Protein 6.1 g/dL (6.6-8.7)
[2023-06-23 06:09] LABS: Anion Gap 13.5 (5-19); Potassium 4.5 mmol/L (3.5-5.1)
[2023-06-23 06:10] LABS: Aspartate Amino Transferase 15 U/L (0-32)
[2023-06-23] MEDS: gabapentin 100 mg Capsule PO (08:19)
[2023-06-23] MEDS: pantoprazole DR 40 mg Tablet PO (08:19)
[2023-06-23] MEDS: sucralfate 1 gm Tablet PO (08:19)
[2023-06-23] MEDS: cetirizine 10 mg Tablet PO (08:19)
[2023-06-23] MEDS: clopidogrel 75 mg Tablet PO (08:19)
[2023-06-23] MEDS: levETIRAcetam 500 mg Tablet 250 MG PO (08:19)
[2023-06-23] MEDS: cholecalciferol (vitamin D3) 1,000 unit Tablet 1000 UNIT PO (08:19)
[2023-06-23] MEDS: montelukast sodium 10 mg Tablet PO (08:19)
[2023-06-23] MEDS: acetaminophen 325 mg Tablet 650 MG PO (08:21)
--- NOTE | 2023-06-23 09:40 | PC.CHAP ---
Pastoral Care Encounter/Spiritual Assessment Type of Contact [] Declined supervisor precision optical elements visit [] Patient/Family/Request visit [] Outpatient visit [] Follow-up visit [] Physician referral [] Code/Alert [x] Routine visit [] Staff referral [] Actively dying [] Patient sleeping [x] Family support [] [] Out of room [] Palliative care [] [] Receiving care in room [] Pre-surgical visit [] Trauma [] Long length of stay [] ICU visit [] Other: Relational/Emotional Strength [x] Patient feels connected with others/family/visitors/staff [] Distress [] Loneliness/isolation [] Abandonment Spirituality of Patient [x] Person of Keisha [] Attends Taoist of their Keisha [x] Believes in Prayer [] Reads Bible or Tenriism materials [] There are Spiritual issues to be addressed Fabric Separator Operator Interventions [x] Prayer [x] Active listening [x] Non-anxious presence [x] Spiritual/emotional support [] Crisis/trauma care [] Spiritual counseling [] Bereavement support [] Provided bereavement packet [x] Provided Bible/devotional materials [] Provided toy/stuffed animal, coloring book to patient or family member [] Provided Communion [] Anointing/[place] [] Salvation [x] Completed spiritual assessment [] Other: Impact on Illness or Injury [] Angry [] Fearful [] Anxious [] Often cries [] Exhaustion [] Unable to work [] Unable to attend voodoo [] Unable to walk/stand [] Unable to read [] Unable to drive [] Unable to eat/drink [] Unable to sleep [] Unable to be with family [] Patient intubated [] Other: Summary Time spent with patient 5 min
--- NOTE | 2023-06-23 10:30 | PC.SOCIAL ---
IMM Update pg 2 of IMM updated and reviewed w/ patient. Copy provided and copy dated, initialed and placed in chart.
--- NOTE | 2023-06-23 11:12 | P.DS_ITS ---
Discharge Providers Date of Admission: 06/22/23 16:16 Date of Discharge: June 23, 2023 Attending Provider at Admission: Lucille Lowery MD Attending Provider at Discharge: Lucille Lowery MD Primary Care Provider: Akila Rivera DO Diagnoses at Discharge Discharge Diagnosis (1) Essential (primary) hypertension: Status: Acute (2) Diastolic heart failure: Status: Acute Qualifiers: Heart failure chronicity: chronic Qualified Code(s): I50.32 - Chronic diastolic (congestive) heart failure (3) Hypothyroidism (acquired): Status: Acute (4) GERD (gastroesophageal reflux disease): Status: Acute Qualifiers: Esophagitis presence: esophagitis presence not specified Qualified Code(s): K21.9 - Gastro-esophageal reflux disease without esophagitis (5) COPD with acute exacerbation: Status: Acute (6) Lower extremity edema: Status: Acute (7) Generalized weakness: Status: Acute (8) Sleep apnea: Status: Acute Reason for Visit Reason for Visit: weakness Hospital Course Hospital Course Patient admitted for COPD exacerbation. She is on baseline oxygen 2 to 3 L. She says she feels better and her breathing is easier. Lungs are clear to auscultation as well. No gross wheezing or rhonchi appreciated at this time. She says she would like to go home. She has refused to work with PT because she says that there is no way she will go to a [facility]. She wants to go back home. I did discuss with her regarding her generalized weakness which she says it is chronic. She understands that she would benefit from rehab however still would like to go home. Patient will be discharged home in stable condition on a course of 5-day steroids and azithromycin. Physical Exam Narrative: General: Comfortable appearing female, Denies dizziness currently. HEENT: Head atraumatic, normocephalic to visual inspection, CV: Normal rhythm, RRR, S1-S2 noted, no murmurs rubs or gallops noted. Pulm: Lungs clear to auscultation bilaterally. No wheezes no rhonchi. GI: Obese abdomen, soft, nontender Extremities: Capillary refill <2 seconds, 1+ edema noted bilateral lower extremities. NEURO: alert and orientated x 3, eating sitting up in bed at this time on BiPAP. Discharge Data Studies Completed and Pending Completed Studies During Hospitalization Category Date Time Status XR chest 1V [id number] Stat Exams 06/22/23 12:04 Completed Pending at discharge Category Date Time Status Blood Culture Stat Lab 06/22/23 12:13 Results Radiology Impressions Chest X-Ray 06/22/23 12:04 Impression: Negative chest. Laboratory Results WBC 4.19 10^3/uL (3.29-11.43) 06/23/23 05:33 RBC 3.94 10^6/uL (3.85-5.65) 06/23/23 05:33 Hgb 11.40 g/dL (11.27-16.99) 06/23/23 05:33 Hct 37.7 % (36-47) 06/23/23 05:33 MCV 95.7 fl (85-98) 06/23/23 05:33 MCH 28.9 pg (27-33) 06/23/23 05:33 MCHC 30.2 g/dL (30-55) 06/23/23 05:33 RDW 12.7 % (12.1-15.1) 06/23/23 05:33 Plt Count 241 10^3/cmm (157-399) 06/23/23 05:33 MPV 10.4 fL (7.4-10.4) 06/23/23 05:33 Neut % (Auto) 75.0 % 06/23/23 05:33 Lymph % (Auto) 23.4 % 06/23/23 05:33 [place] % (Auto) 1.2 % 06/23/23 05:33 Eos % (Auto) 0.0 % 06/23/23 05:33 Baso % (Auto) 0.2 % 06/23/23 05:33 Neut # (Auto) 3.14 10^3/uL (1.8-7.7) 06/23/23 05:33 Lymph # (Auto) 1.0 10^3/uL (0.8-4.8) 06/23/23 05:33 [place] # (Auto) 0.1 10^3/uL (0.2-0.9) L 06/23/23 05:33 Eos # (Auto) 0.0 10^3/uL (0.0-0.8) 06/23/23 05:33 Baso # (Auto) 0.0 10^3/uL (0.0-0.1) 06/23/23 05:33 Nucleated RBC % (auto) 0 % 06/23/23 05:33 Nucleated RBCs # 0.0 /100WBC 06/23/23 05:33 Specimen Type Arterial 06/22/23 14:40 Sample Site Brachial, right 06/22/23 14:40 ABG pH 7.36 (7.35-7.45) 06/22/23 14:40 ABG pCO2 71.6 mmHg (35-45) H* 06/22/23 14:40 ABG pO2 94.0 mmHg (80.0-100.0) 06/22/23 14:40 ABG PO2/FiO2 Ratio 0 06/22/23 14:40 ABG HCO3 40.3 mmol/L (22-26) H 06/22/23 14:40 ABG O2 Saturation 93.9 06/22/23 14:40 ABG Base Excess 11.8 mmol/L (-2.0-2.0) H 06/22/23 14:40 Nestor Test N/a 06/22/23 14:40 A-a O2 Gradient 2.3 mmHg (5-10) L 06/22/23 14:40 Hematocrit 39.1 % (37-47) 06/22/23 14:40 Hgb O2 Saturation 92.7 % (95-100) L 06/22/23 14:40 Carboxyhemoglobin 0.3 %THgb (0.4-20.1) L 06/22/23 14:40 Methemoglobin 1.0 % (0.4-1.5) 06/22/23 14:40 Total Hemoglobin 12.8 g/dL (12-16) 06/22/23 14:40 Sodium 143.0 mmol/L (131-143) 06/22/23 14:40 Potassium 3.7 mmol/L (3.5-5.0) 06/22/23 14:40 Glucose 116.0 mg/dL (70-115) H 06/22/23 14:40 Ionized Calcium 1.2 mmol/L (1.1-1.4) 06/22/23 14:40 O2 Delivery Device Nc 06/22/23 14:40 O2 Liters/Min 2.0 % 06/22/23 14:40 FiO2 28.0 % 06/22/23 14:40 Access Control Officer ID Amh 06/22/23 14:40 Sodium 139 mmol/L (136-145) 06/23/23 05:33 Potassium 4.5 mmol/L (3.5-5.1) 06/23/23 05:33 Chloride 100 mmol/L (98-107) 06/23/23 05:33 Carbon Dioxide 30 mmol/L (22-29) H 06/23/23 05:33 Anion Gap 13.5 (5-19) 06/23/23 05:33 BUN 18 mg/dL (6-20) 06/23/23 05:33 Creatinine 0.8 mg/dL (0.5-0.9) 06/23/23 05:33 GFR Calculation 73.7 mL/min (90-130) L 06/23/23 05:33 Glucose 146 mg/dL (65-115) H 06/23/23 05:33 Calculated Osmolality 293 mOsm/kg (285-295) 06/23/23 05:33 Lactic Acid 1.4 mmol/L (0.5-2.2) 06/22/23 12:13 Calcium 8.9 mg/dL (8.5-10.5) 06/23/23 05:33 Magnesium 1.9 mg/dL (1.7-2.3) 06/23/23 05:33 Total Bilirubin 0.8 mg/dL (0.15-1.2) 06/23/23 05:33 AST 15 U/L (0-32) 06/23/23 05:33 ALT 9 U/L (0-33) 06/23/23 05:33 Alkaline Phosphatase 79 U/L (35-105) 06/23/23 05:33 Troponin T Baseline 15 ng/L (0-10) H 06/22/23 12:13 Troponin T 120 Minute 16.47 ng/L (0-10) H 06/22/23 14:30 Delta Troponin T 1.47 ABS# (0-10) 06/22/23 14:30 Troponin T Hi Sens 6Hr 13.06 ng/L (0-10) H 06/22/23 19:18 Troponin T Hi Sens 6Hr Delta -1.94 ng/L (0-12) L 06/22/23 19:18 C-Reactive Protein 4.6 mg/L (0.0-4.9) 06/22/23 12:13 NT-Pro-B Natriuret Pep 168 pg/mL (0-125) H 06/22/23 12:13 Total Protein 6.1 g/dL (6.6-8.7) L 06/23/23 05:33 Albumin 3.4 g/dL (3.5-5.2) L 06/23/23 05:33 Globulin 2.7 g/dL (1.3-4.6) 06/23/23 05:33 Procalcitonin 0.03 ng/mL (0-0.5) 06/22/23 14:30 TSH 0.93 uIU/mL (0.27-4.20) 06/22/23 14:30 Urine Color Cancelled 06/22/23 22:10 Urine Appearance Cancelled 06/22/23 22:10 Urine pH Cancelled 06/22/23 22:10 Ur Specific [place] Cancelled 06/22/23 22:10 Urine Protein Cancelled 06/22/23 22:10 Urine Glucose (UA) Cancelled 06/22/23 22:10 Urine Ketones Cancelled 06/22/23 22:10 Urine Blood Cancelled 06/22/23 22:10 Urine Nitrate Cancelled 06/22/23 22:10 Urine Bilirubin Cancelled 06/22/23 22:10 Prot Sulfosalicylic Acd Cancelled 06/22/23 22:10 Urine Urobilinogen Cancelled 06/22/23 22:10 Ur Leukocyte Esterase Cancelled 06/22/23 22:10 Urine RBC None /hpf (0-2) 06/22/23 14:05 Urine WBC None /hpf (0-5) 06/22/23 14:05 Ur Squamous Epith Cells None /hpf (0-5) 06/22/23 14:05 Amorphous Sediment Not Reportable 06/22/23 14:05 Urine Bacteria None /hpf (NONE) 06/22/23 14:05 Urine Mucus None /hpf 06/22/23 14:05 Vitals Last Vital Signs Temp 97.9 F 06/23/23 08:01 Pulse 69 06/23/23 08:25 Resp 17 06/23/23 08:25 BP 124/64 06/23/23 08:01 Pulse Ox 94 06/23/23 08:25 O2 Del Method Nasal Cannula 06/23/23 08:25 O2 Flow Rate 2 06/23/23 08:25 FiO2 28 06/23/23 03:54 Discharge Plan Discharge Patient Disposition: Home Condition: Stable Prescriptions: New prednisone 20 mg tablet 20 mg PO BID 4 Days Qty: 8 0RF azithromycin 500 mg tablet 500 mg PO DAILY 5 Days Qty: 5 0RF Continued levetiracetam 250 mg tablet 250 mg PO BID aspirin [Adult Aspirin Regimen] 81 mg tablet,delayed release (DR/EC) 81 mg PO QAM albuterol sulfate [ProAir HFA] 90 mcg/actuation HFA aerosol inhaler 2 puff INHALATION Q6H PRN (Reason: Shortness Of Breath) acetaminophen 500 mg capsule 500 mg PO Q6H PRN (Reason: Pain) hydroxyzine HCl 10 mg Tablet 10 mg PO TID PRN (Reason: Anxiety) trazodone 50 mg tablet 100 mg PO BEDTIME duloxetine 60 mg capsule,delayed release(DR/EC) 60 mg PO QAM cetirizine 10 mg tablet 10 mg PO DAILY albuterol sulfate 2.5 mg /3 mL (0.083 %) solution for nebulization 2.5 mg inhalation QID PRN (Reason: SHORTNESS OF BREATH) ondansetron HCl 4 mg tablet 4 mg PO Q6H PRN (Reason: nausea and vomiting) Qty: 20 0RF sucralfate 1 gram tablet 1 g PO TID montelukast 10 mg tablet 10 mg PO DAILY pantoprazole [Protonix] 40 mg tablet,delayed release (DR/EC) 40 mg PO DAILY cholecalciferol (vitamin D3) [Vitamin D3] 25 mcg (1,000 unit) Tablet 25 mcg PO DAILY fluticasone propionate 50 mcg/actuation spray,suspension 1 spray INTRANASAL BID Gemtesa 75 mg tablet 75 mg PO DAILY potassium chloride 20 mEq tablet,ER particles/crystals 20 meq PO DAILY clopidogrel 75 mg Tablet 75 mg PO DAILY Qty: 30 0RF metoprolol succinate [Toprol XL] 25 mg tablet extended release 24 hr 50 mg PO DAILY Qty: 60 0RF gabapentin 100 mg Capsule 100 mg PO TID Qty: 90 0RF levothyroxine 112 mcg Tablet 112 mcg PO QAM Qty: 30 0RF atorvastatin 20 mg tablet 40 mg PO BEDTIME Qty: 60 0RF spironolactone 25 mg tablet 25 mg PO BEDTIME nystatin 100,000 unit/gram Cream 1 applic TOPICAL DAILY PRN (Reason: Rash) magnesium oxide 400 mg magnesium Tablet 400 mg PO BEDTIME bumetanide 2 mg tablet 2 mg PO QAM Discharge Orders: Discharge Order (Routine); Ordered 06/23/23 Ordered By: Lucille Lowery Referrals: Akila Rivera DO [Primary Care Provider] - 06/27/23 9:30 am Discharge Diet: Cardiac Discharge Activity: Resume usual activity Patient Instructions: Opioid Safety Discharge Attestations Time Spent in Discharge Care*: less than 30 min Quality Metrics Clinical Quality Measures [ No reported AMI, CVA or VTE this stay] Coding Level of Care Code 99537 Total time (in minutes) for Discharge: 25 Diagnoses Essential (primary) hypertension I10 Chronic diastolic heart failure I50.32 Heart failure chronicity: chronic Hypothyroidism (acquired) E03.9 GERD (gastroesophageal reflux disease) K21.9 Esophagitis presence: esophagitis presence not specified COPD with acute exacerbation J44.1 Lower extremity edema R60.0 Generalized weakness R53.1 Sleep apnea G47.30
== END 2023-06-23 12:42 | disposition home or self-care (01) ==
LOC: ER 15:25 → MEDSURG 18:33
PROVIDERS: Admitting Provider Internal Medicine; Emergency Provider Emergency Medicine; PCP Family Medicine; Visit Provider Internal Medicine
DX: J44.1 Chronic obstructive pulmonary disease with (acute) exacerbation (principal); I11.0 Hypertensive heart disease with heart failure; I50.32 Chronic diastolic (congestive) heart failure; E03.9 Hypothyroidism, unspecified; K21.9 Gastro-esophageal reflux disease without esophagitis; R60.0 Localized edema; R53.1 Weakness; G47.30 Sleep apnea, unspecified; Z99.81 Dependence on supplemental oxygen; G47.33 Obstructive sleep apnea (adult) (pediatric); Z87.891 Personal history of nicotine dependence; J96.22 Acute and chronic respiratory failure with hypercapnia; G93.40 Encephalopathy, unspecified
CPT/HCPCS: 36415; 36600; 71045; 80051; 80053; 81001; 82330; 82805; 83605; 83735; 83880; 84145; 84443; 84484; 85025; 86140; 87040; 93005; 94640; 94660; 94664; 96372; 96374; 97110; 97116; 97161; 97166; 99291; G0378; J0456; J1644; J2919; J7030; J7050; J7613

== ENCOUNTER → 2023-06-27 10:36 | Outpatient (BNVA) | payer MEDICARE, MEDICAID, SELFPAY | PROVIDERS: PCP Family Medicine; Visit Provider Internal Medicine | DX: E03.9 Hypothyroidism, unspecified; T14.8XXA Other injury of unspecified body region, initial encounter; X58.XXXA Exposure to other specified factors, initial encounter; Z79.890 Hormone replacement therapy; Z79.02 Long term (current) use of antithrombotics/antiplatelets | CPT/HCPCS: 99213; 99214 ==

== ENCOUNTER 2023-07-06 21:26 | Emergency (ER) | payer MEDICARE, MEDICAID, SELFPAY ==
[2023-07-06 21:26] VITALS: BP 152/68; PULSE 70; RESP 16; TEMP 36.9; O2SAT 94; BMI 36.3
--- NOTE | 2023-07-06 21:27 | XRR_ITS ---
PROCEDURE INFORMATION: Exam: XR Left Knee Exam date and time: 07/06/2023 9:43 PM Age: 57 years old Clinical indication: Injury or trauma; Fall; Other: Pain; Additional info: Fall, knee pain TECHNIQUE: Imaging protocol: Radiologic exam of the left knee. Views: 3 views. COMPARISON: CR XR knee LT 3V* [id number] 11/02/2022 5:36 PM FINDINGS: Bones/joints: [id number] tricompartmental osteoarthritis of the knee. Soft tissues: Normal. XR/XR knee LT 3V* [id number] IMPRESSION: 1. Negative for fracture or dislocation. 2. Omrw-ng-edeqwftj tricompartmental osteoarthritis of the knee.
--- NOTE | 2023-07-06 21:27 | XRR_ITS ---
PROCEDURE INFORMATION: Exam: XR Left Femur Exam date and time: 07/06/2023 9:37 PM Age: 57 years old Clinical indication: Injury or trauma; Fall; Other: Pain; Additional info: Fall, thigh pain TECHNIQUE: Imaging protocol: Radiologic exam of the left femur. Views: 2 views. COMPARISON: CR XR femur LT min 2V* [id number] 05/18/2022 10:28 PM FINDINGS: Bones/joints: Jzed-[id number] tricompartmental osteoarthritis of the knee. Soft tissues: Unremarkable. XR/XR femur LT min 2V* [id number] IMPRESSION: 1. Negative for fracture or dislocation. 2. Qefg-hy-mjhmiqkf tricompartmental osteoarthritis of the knee.
--- NOTE | 2023-07-06 21:39 | W.ED.EXTPRO ---
HPI - Extremity Problem General: Chief complaint: Extremity Injury, Lower Stated complaint: Fall, Lt leg pain Time Seen by Provider: 07/06/23 21:27 History of Present Illness: 57-year-old female who presents emergency room by ambulance with left knee and thigh pain. She says she had a fall. Did not hit her head. No loss of consciousness. No altered mental status. No focal motor deficits. No nausea or vomiting. No abdominal pain. No chest pain. No shortness of breath. Review of Systems Narrative: Constitutional symptoms: Negative except as documented in HPI. Skin symptoms: Negative except as documented in HPI. Eye symptoms: Negative except as documented in HPI. ENMT symptoms: Negative except as documented in HPI. Respiratory symptoms: Negative except as documented in HPI. Cardiovascular symptoms: Negative except as documented in HPI. Gastrointestinal symptoms: Negative except as documented in HPI. Genitourinary symptoms: Negative except as documented in HPI. Musculoskeletal symptoms: Negative except as documented in HPI. Neurologic symptoms: Negative except as documented in HPI. Psychiatric symptoms: Negative except as documented in HPI. Endocrine symptoms: Negative except as documented in HPI. 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 Other Adopted Social History Smoking and tobacco/nicotine status: former use of tobacco/nicotine Quit status (tobacco/nicotine): has quit using Year quit tobacco: 2019 - 1-5 ciggs/day Alcohol intake: never Substance/Drug Use: never Lives independently: Yes Household members: none Housing: Apartment Current occupational status: disabled Do you think of yourself as: Straight/Heterosexual Current gender identity: Female Physical Exam Narrative: EXAM NARRATIVE: General: Alert, no acute distress. Skin: warm and dry Head: Normocephalic Neck: Trachea midline Eye: Extraocular movements are intact. Ears, nose, mouth and throat: Oral mucosa moist Respiratory: Respirations are non-labored Musculoskeletal: Normal ROM no obvious deformity, some mild tenderness in her lower thigh area knee area. Neurological: Alert and oriented, No focal neurological deficit observed. Psychiatric: Cooperative, appropriate mood & affect. Course Vital Signs: Vital signs: Vital Signs Temperature 98.4 F 07/06/23 21:26 Pulse Rate 74 07/06/23 21:47 Respiratory Rate 16 07/06/23 21:47 Blood Pressure 125/66 07/06/23 21:47 Pulse Oximetry 99 07/06/23 21:47 Oxygen Delivery Me thod Nasal Cannula 07/06/23 21:26 Oxygen Flow Rate 2 07/06/23 21:26 MDM - Extremity (Nontraumatic) Medical Decision Making X-ray of the left knee: No fractures. No dislocations. No obvious effusion. This was reviewed and interpreted by myself the emergency room physician. X-ray of the left femur: No fractures. No dislocations. No obvious effusion. This was reviewed and interpreted by myself the emergency room physician. Assessment and plan: Knee sprain - Discharged home - Discussed plan with patient. Answered any questions. - Evaluation and treatment of this problem were appropriate in the emergency setting. XR interpretation done by ED provider, pending radiology final review Discharge Plan Discharge Patient Disposition: Home Clinical Impression: Knee sprain Condition: Stable Prescriptions: No Action levetiracetam 250 mg tablet 250 mg PO BID aspirin [Adult Aspirin Regimen] 81 mg tablet,delayed release (DR/EC) 81 mg PO QAM albuterol sulfate [ProAir HFA] 90 mcg/actuation HFA aerosol inhaler 2 puff INHALATION Q6H PRN (Reason: Shortness Of Breath) prednisone 20 mg tablet PO sulfamethoxazole-trimethoprim 800-160 mg tablet PO acetaminophen 500 mg capsule 500 mg PO Q6H PRN (Reason: Pain) hydroxyzine HCl 10 mg Tablet 10 mg PO TID PRN (Reason: Anxiety) trazodone 50 mg tablet 100 mg PO BEDTIME duloxetine 60 mg capsule,delayed release(DR/EC) 60 mg PO QAM cetirizine 10 mg tablet 10 mg PO DAILY albuterol sulfate 2.5 mg /3 mL (0.083 %) solution for nebulization 2.5 mg inhalation QID PRN (Reason: SHORTNESS OF BREATH) ondansetron HCl 4 mg tablet 4 mg PO Q6H PRN (Reason: nausea and vomiting) Qty: 20 0RF sucralfate 1 gram tablet 1 g PO TID montelukast 10 mg tablet 10 mg PO DAILY pantoprazole [Protonix] 40 mg tablet,delayed release (DR/EC) 40 mg PO DAILY cholecalciferol (vitamin D3) [Vitamin D3] 25 mcg (1,000 unit) Tablet 25 mcg PO DAILY fluticasone propionate 50 mcg/actuation spray,suspension 1 spray INTRANASAL BID Gemtesa 75 mg tablet 75 mg PO DAILY potassium chloride 20 mEq tablet,ER particles/crystals 20 meq PO DAILY clopidogrel 75 mg Tablet 75 mg PO DAILY Qty: 30 0RF metoprolol succinate [Toprol XL] 25 mg tablet extended release 24 hr 50 mg PO DAILY Qty: 60 0RF gabapentin 100 mg Capsule 100 mg PO TID Qty: 90 0RF levothyroxine 112 mcg Tablet 112 mcg PO QAM Qty: 30 0RF atorvastatin 20 mg tablet 40 mg PO BEDTIME Qty: 60 0RF spironolactone 25 mg tablet 25 mg PO BEDTIME nystatin 100,000 unit/gram Cream 1 applic TOPICAL DAILY PRN (Reason: Rash) magnesium oxide 400 mg magnesium Tablet 400 mg PO BEDTIME bumetanide 2 mg tablet 2 mg PO QAM Discharge Orders: Discharge ED (Routine); Ordered 07/06/23 Ordered By: Teena Ordaz Referrals: Akila Rivera DO [Primary Care Provider] - 4-7 days Discharge Diet: Usual diet Discharge Activity: Increase activity as tolerated Patient Instructions: Opioid Safety, Pain Management Activity Restrictions/Additional Instructions: Thank you for choosing [facility] for your healthcare needs today. Please realize this is an emergency room and that we are providing you with a medical screening exam and this may not be complete and all inclusive of all the testing and or work up that you may need to determine your ailment or severity of your illness. You have been screened and evaluated and felt safe for discharge. Health conditions do change or evolve sometimes and as such it is important that you follow up with your Primary Doctor to be re checked, 3-5 days is a general good time frame for follow up. You are always welcome to return to the ED for re assessment if your symptoms are worsening or you have new concerns Coding Level of Care Code ED Director Post for Dc Serrato
[2023-07-06 21:47] VITALS: BP 125/66; PULSE 74; RESP 16; O2SAT 99
== END 2023-07-06 23:20 | disposition home or self-care (01) ==
PROVIDERS: Emergency Provider Emergency Medicine; PCP Family Medicine
DX: S83.92XA Sprain of unspecified site of left knee, initial encounter (principal); Z79.02 Long term (current) use of antithrombotics/antiplatelets; Z79.82 Long term (current) use of aspirin; Z87.891 Personal history of nicotine dependence; I11.0 Hypertensive heart disease with heart failure; I50.30 Unspecified diastolic (congestive) heart failure; J44.9 Chronic obstructive pulmonary disease, unspecified; W19.XXXA Unspecified fall, initial encounter
CPT/HCPCS: 73552; 73562; 99284

== ENCOUNTER → 2023-07-13 08:38 | Outpatient (BNVA) | payer OTHER, SELFPAY | PROVIDERS: PCP Family Medicine; Visit Provider Psychiatry & Neurology Psychiatry | DX: F41.1 Generalized anxiety disorder (principal); Z79.899 Other long term (current) drug therapy | CPT/HCPCS: 80061; 83036 ==

== ENCOUNTER 2023-07-28 11:17 | Emergency (ER) | payer MEDICARE, MEDICAID, SELFPAY ==
[2023-07-19 09:23] VITALS: BP 132/64; BMI 36.8
[2023-07-28 11:19] VITALS: BP 105/85; PULSE 66; RESP 18; TEMP 36.4; O2SAT 100; BMI 43.7
[2023-07-28 11:23] VITALS: BP 105/85; PULSE 66; RESP 18; TEMP 36.4; O2SAT 100
--- NOTE | 2023-07-28 11:23 | ED_ITS ---
HPI - Fall General: Chief Complaint: Fall Stated Complaint: fall Time Seen by Provider: 07/28/23 11:18 Source: patient and EMS Mode of arrival: EMS Limitations: no limitations History of Present Illness: Patient is a 57-year-old female presents to ED today via EMS following a fall. Patient states she was seated in a chair when she was trying stand to transfer from the chair upright to her walker to ambulate. She states instead of standing up she accidentally slid down from the chair onto her right side. She complains of right shoulder pain, right sided back pain, right knee/lower leg pain. German es striking her head or LOC. complaint: fall Onset (ago): hour(s) Fall from: chair Fall witnessed: no Place fall occurred: home Loss of consciousness: None Prolonged down time: no Symptoms prior to fall: none Location of injury - extremities: Right: shoulder, knee and lower leg Associated symptoms-after fall: Reports no associated symptoms; Denies abdominal pain, chest pain, headache(s), hematuria, lightheadedness or neck pain Review of Systems Eyes: Denies: change in vision, blurry vision, photophobia, eye discharge, floaters or seeing flashes ENMT: Denies: throat pain, odynophagia, ear or mastoid pain, ear discharge, nasal discharge, epistaxis or sinus pain Card: Denies: chest pain, palpitations, lightheadedness, syncope or pre- syncope Resp: Denies: dyspnea or pain on inspiration GI: Denies: abdominal pain : Denies: flank pain or hematuria Musc: Reports: back pain, extremity pain and joint pain; Denies: neck pain or extremity swelling Neuro: Denies: headache(s), numbness in extremities, weakness in extremities, sensory changes or dizziness [facility] ED PFSH: Medical History Major depressive disorder, single episode, severe without psychotic features Sleep apnea Psychiatric care Diastolic heart failure Chest pain Lower extremity edema Atypical chest pain Cervical radiculopathy Pain of hand Diastolic CHF 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 Other Adopted Social History Smoking and tobacco/nicotine status: former use of tobacco/nicotine Quit status (tobacco/nicotine): has quit using Year quit tobacco: 2018 - -5 ciggs/day Alcohol intake: never Substance/Drug Use: never Lives independently: Yes Household members: none Housing: Apartment Current occupational status: disabled Do you think of yourself as: Straight/Heterosexual Current gender identity: Female Physical Exam Const: COMMON NORMALS: no acute distress, average body habitus, patient oriented x3, no limitations, healthy appearing, alert and well nourished GENERAL APPEARANCE: cooperative ORIENTATION/CONSCIOUSNESS: Yes awake, Yes oriented to person, Yes oriented to place and Yes oriented to time HENMT: COMMON NORMALS: normocephalic, atraumatic and TM's normal bilaterally HEAD & SCALP: normal to inspection, normocephalic and atraumatic; no Washburn's sign, no hematoma and no raccoon eyes FACE & SINUS: normal facial exam TYMPANIC MEMBRANE: TM's normal bilaterally MOUTH: other (no intraoral injuries noted) Eye: COMMON NORMALS: Equal, round and reactive pupils present and EOMs intact bilaterally GENERAL EYE: appearance normal, both eyes and all related structures and normal light reflex PUPIL: Yes Equal, round and reactive pupils present DIRECT OPHTHALMOSCOPY: Yes normal light reflex Neck/C-Spine: COMMON NORMALS: full ROM GENERAL: Yes normal visual inspection CERVICAL SPINE: Yes cervical ROM normal, No pain with cervical ROM, No Cervical spine tenderness, No step off deformity and No Paracervical muscle tenderness Chest: COMMONS NORMALS: normal inspection of the chest and normal palpation of entire chest wall Resp: COMMON NORMALS: normal respiratory effort and clear to auscultation bilaterally AUSCULTATION: clear to auscultation bilaterally Cardio: COMMON NORMALS: regular rate and regular rhythm RATE: regular rate RHYTHM: regular rhythm GI: COMMON NORMALS: Normal to inspection, nondistended, normoactive bowel sounds present, Soft to palpation, non-tender, No hepatosplenomegaly present and no masses INSPECTION: Yes normal to inspection and No abdominal wall ecchymosis AUSCULTATION: Yes normoactive bowel sounds PALPATION: Yes Soft to palpation and Yes No hepatosplenomegaly present Back/Pelvis: COMMON NORMALS: thoracic and lumbar spine normal to inspection, no thoracic nor lumbar tenderness and thoraco-lumbar ROM normal LUMBAR SPINE/LOWER BACK: Yes paraspinal muscle tenderness Lumbar paraspinal muscle tenderness: right Extremity: COMMON NORMALS: normal to inspection, capillary refill normal, no joint enlargement, no clubbing, cyanosis or edema and no calf tenderness GENERAL: Yes normal exam except as noted RIGHT UPPER EXTREMITY: Yes shoulder joint (TTP) Right shoulder: Yes Right shoulder joint inspection exam (normal) and Yes Right shoulder joint neurovascular exam (normal) RIGHT LOWER EXTREMITY: Yes knee joint Right knee: Yes inspection (normal), Yes palpation (TTP) and Yes neurovascular exam (normal) and Yes lower leg Right lower leg: Yes inspection (very small area of bruising anterior mid lower leg), Yes palpation (TTP) and Yes neurovascular exam (normal) Neuro: CELIO COMA SCALE: document GCS findings [place] coma scale eye opening: Spontaneous Celio coma scale verbal response: Orientated Celio coma scale motor response: Obey commands Celio coma scale total score: 15 COMMON NORMALS: patient oriented x3, CN's II-XII intact bilaterally, moves all extremities, no focal motor deficits and no sensory deficits noted SENSORIUM/ORIENTATION: Yes alert, Yes oriented to person, Yes oriented to place and Yes oriented to time SPEECH: speech normal GAIT: Yes Normal gait present Skin: COMMON NORMALS: no rashes or lesions noted GENERAL SKIN EXAM: no rashes or lesions noted TRAUMA: no lacerations or abrasions Course Vital Signs: Vital signs: Vital Signs Temperature 97.5 F L 07/28/23 11:23 Pulse Rate 69 07/28/23 12:00 Respiratory Rate 16 07/28/23 12:00 Blood Pressure 151/54 07/28/23 12:00 Pulse Oximetry 96 07/28/23 12:00 Oxygen Delivery Me thod Room Air 07/28/23 12:00 MDM - Fall Medical Decision Making XRs negative. She will be allowed discharge. Medical Records I reviewed the patient's medical records. Lab Data Radiology Impressions Hip/Pelvis X-Ray 07/28/23 11:46 IMPRESSION: 1. No acute hip fracture noted Knee X-Ray 07/28/23 11:46 IMPRESSION: 1. No fracture or joint effusion. Shoulder X-Ray 07/28/23 11:46 IMPRESSION: 1. Negative RIGHT shoulder. Tibia/Fibula X-Ray 07/28/23 11:46 IMPRESSION: 1. No fracture or other significant finding. All radiology interpretation(s) finalized by discharge Discharge Plan Discharge Patient Disposition: Home Clinical Impression: Fall from chair, Pain in right leg, Acute pain of right shoulder Condition: Stable Prescriptions: No Action levetiracetam 250 mg tablet 250 mg PO BID aspirin [Adult Aspirin Regimen] 81 mg tablet,delayed release (DR/EC) 81 mg PO QAM albuterol sulfate [ProAir HFA] 90 mcg/actuation HFA aerosol inhaler 2 puff INHALATION Q6H PRN (Reason: Shortness Of Breath) prednisone 20 mg tablet PO sulfamethoxazole-trimethoprim 800-160 mg tablet PO acetaminophen 500 mg capsule 500 mg PO Q6H PRN (Reason: Pain) hydroxyzine HCl 10 mg Tablet 10 mg PO TID PRN (Reason: Anxiety) trazodone 50 mg tablet 100 mg PO BEDTIME duloxetine 60 mg capsule,delayed release(DR/EC) 60 mg PO QAM cetirizine 10 mg tablet 10 mg PO DAILY albuterol sulfate 2.5 mg /3 mL (0.083 %) solution for nebulization 2.5 mg inhalation QID PRN (Reason: SHORTNESS OF BREATH) ondansetron HCl 4 mg tablet 4 mg PO Q6H PRN (Reason: nausea and vomiting) Qty: 20 0RF sucralfate 1 gram tablet 1 g PO TID montelukast 10 mg tablet 10 mg PO DAILY pantoprazole [Protonix] 40 mg tablet,delayed release (DR/EC) 40 mg PO DAILY cholecalciferol (vitamin D3) [Vitamin D3] 25 mcg (1,000 unit) Tablet 25 mcg PO DAILY fluticasone propionate 50 mcg/actuation spray,suspension 1 spray INTRANASAL BID Gemtesa 75 mg tablet 75 mg PO DAILY potassium chloride 20 mEq tablet,ER particles/crystals 20 meq PO DAILY clopidogrel 75 mg Tablet 75 mg PO DAILY Qty: 30 0RF metoprolol succinate [Toprol XL] 25 mg tablet extended release 24 hr 50 mg PO DAILY Qty: 60 0RF gabapentin 100 mg Capsule 100 mg PO TID Qty: 90 0RF levothyroxine 112 mcg Tablet 112 mcg PO QAM Qty: 30 0RF atorvastatin 20 mg tablet 40 mg PO BEDTIME Qty: 60 0RF spironolactone 25 mg tablet 25 mg PO BEDTIME nystatin 100,000 unit/gram Cream 1 applic TOPICAL DAILY PRN (Reason: Rash) magnesium oxide 400 mg magnesium Tablet 400 mg PO BEDTIME bumetanide 2 mg tablet 2 mg PO QAM Discharge Orders: Discharge ED (Routine); Ordered 07/28/23 Ordered By: Vickie Nelson Referrals: Akila Rivera DO [Primary Care Provider] - Coding Level of Care Code ED Progressive Assembler And Fitter for Dc Serrato
--- NOTE | 2023-07-28 11:46 | XR_ITS ---
WS: [email or web address] Exam: XR shoulder RT min 2V* [id number] Date/Time of Exam: 07/28/2023 11:49 AM Reason For Exam: fall No fracture or dislocation. Soft tissues are unremarkable. The joints are relatively well-maintained. XR/XR shoulder RT min 2V* [id number] IMPRESSION: 1. Negative RIGHT shoulder.
--- NOTE | 2023-07-28 11:46 | XR_ITS ---
WS: [email or web address] Exam: XR tibia fibula RT 2V [id number] Date/Time of Exam: 07/28/2023 11:49 AM Reason For Exam: fall No fracture or dislocation. Articular relationships at the knee and ankle appear normal. Unremarkable soft tissues. XR/XR tibia fibula RT 2V [id number] IMPRESSION: 1. No fracture or other significant finding.
--- NOTE | 2023-07-28 11:46 | XR_ITS ---
WS: [email or web address] Exam: XR knee RT 3V* [id number] Date/Time of Exam: 07/28/2023 11:49 AM Reason For Exam: fall No fracture or dislocation. The joints are preserved. Normal soft tissues. No joint effusion. XR/XR knee RT 3V* [id number] IMPRESSION: 1. No fracture or joint effusion.
--- NOTE | 2023-07-28 11:46 | XR_ITS ---
WS: [email or web address] Exam: XR hip RT 2-3V wo/w pel* [id number] Date/Time of Exam: 07/28/2023 11:49 AM Reason For Exam: fall; one view pelvis too please No acute hip fracture. Mild degenerative change of the joint compartment. Normal soft tissues. The vi sualized pelvis appears to be intact. XR/XR hip RT 2-3V wo/w pel* [id number] IMPRESSION: 1. No acute hip fracture noted
[2023-07-28 12:00] VITALS: BP 151/54; PULSE 69; RESP 16; O2SAT 96
[2023-07-28 12:30] VITALS: BP 165/81; PULSE 63; RESP 16; TEMP 36.4; O2SAT 97
== END 2023-07-28 12:50 | disposition home or self-care (01) ==
PROVIDERS: Emergency Provider Physician Assistant; PCP Family Medicine
DX: M25.511 Pain in right shoulder (principal); M79.604 Pain in right leg; Z79.82 Long term (current) use of aspirin; Z79.02 Long term (current) use of antithrombotics/antiplatelets; Z87.891 Personal history of nicotine dependence; I11.0 Hypertensive heart disease with heart failure; I50.30 Unspecified diastolic (congestive) heart failure; J44.9 Chronic obstructive pulmonary disease, unspecified; W07.XXXA Fall from chair, initial encounter
CPT/HCPCS: 73030; 73502; 73562; 73590; 99284

== ENCOUNTER → 2023-08-03 10:51 | Outpatient (BNVA) | payer MEDICARE, MEDICAID, SELFPAY ==
[2023-07-19 09:23] VITALS: BP 132/64; BMI 36.8
== END ==
PROVIDERS: PCP Family Medicine; Visit Provider Internal Medicine Cardiovascular Disease
DX: I11.0 Hypertensive heart disease with heart failure (principal); I50.32 Chronic diastolic (congestive) heart failure; R60.9 Edema, unspecified; I35.1 Nonrheumatic aortic (valve) insufficiency; I47.10 Supraventricular tachycardia, unspecified; Z87.891 Personal history of nicotine dependence
CPT/HCPCS: 99214

== ENCOUNTER 2023-08-07 12:27 | Emergency (ER) | payer MEDICARE, MEDICAID, SELFPAY ==
[2023-07-19 09:23] VITALS: BP 132/64; BMI 36.8
[2023-08-07] VITALS (7 sets, daily range): BP systolic 103–161; BP diastolic 70–107; PULSE 61–70; RESP 14–18; TEMP 36.6; O2SAT 92–100; BMI 36.6
--- NOTE | 2023-08-07 12:48 | XRR_ITS ---
PROCEDURE INFORMATION: Exam: XR Chest Exam date and time: 08/07/2023 1:01 PM Age: 57 years old Clinical indication: Cough and dyspnea; Additional info: Dyspnea/cough TECHNIQUE: Imaging protocol: Radiologic exam of the chest. Views: 1 view. COMPARISON: CR XR chest 1V [id number] 06/22/2023 12:31 PM FINDINGS: Airway: The airways are patent. Lungs: Patchy left perihilar opacities with mild segmental bronchial wall thickening. Remainder of the lungs are clear. Pleural spaces: No pleural effusions or pneumothorax. Heart/Mediastinum: Cardiomediastinal silhouette is magnified due to technique. Bones/joints: No acute skeletal abnormality or aggressive osseous lesion. XR/XR chest 1V portable [id number] IMPRESSION: Concern for developing left perihilar bronchitis/pneumonia.
--- NOTE | 2023-08-07 13:03 | ECG_ITS ---
[facility] Test Date: 2023-08-07 Pat Name: Crystal Pierre Department: Room: Gender: Female Credit Risk Analytics Manager: : 1965 Requested By: Joshua Garcia Order Number: [id number] Clemencia MD: Funmilayo De La Rosa M.D. Measurements Intervals [place] Rate: 65 P: 62 ID: [id number] QRS: 43 QRSD: 101 T: 52 QT: 398 QTc: 415 Interpretive Statements SINUS RHYTHM Compared to ECG 06/22/2023 18:39:19 No significant changes Electronically Signed On 08-08-2023 21:50:30 CDT by Funmilayo De La Rosa M.D. https://[employer]Narr8[facility] hospitalAMRAS [facility] rehabilitationEarLens/store/OM/[id number]
--- NOTE | 2023-08-07 13:07 | W.ED.ABDPA2 ---
HPI - Abdominal Pain General: Chief Complaint: Abdominal Pain Stated Complaint: ABD PAIN Time Seen by Provider: 08/07/23 12:47 Source: patient Mode of arrival: EMS History of Present Illness: 57-year-old female presents emergency room close abdominal pain that began last night she localizes it to the right upper quadrant. She denies any chest pain or shortness of breath no dysuria urgency or frequency she been very nauseated but no vomiting. No fever sweats or chills. MD elicited complaint: abdominal pain Onset (ago): day(s) (1) Pain Consistency: constant Location: RUQ Severity: mild Quality: cramping Radiation: back Exacerbating factors: eating Relieving factors: nothing Associated Symptoms: Reports nausea; Denies anorexia, belching, bloating, change in bowel habits, change in stool character, chills, coffee ground emesis, constipation, GI cramping, diarrhea, dyspepsia, dysuria, excessive flatus, fever(s), heartburn, hematochezia, hematuria, hematemesis, fecal incontinence, loose stools, melena, poor appetite, syncope and vomiting Review of Systems Const: Denies: fever(s) or chills Card: Denies: chest pain or syncope Resp: Denies: dyspnea GI: Reports: abdominal pain and nausea; Denies: vomiting, hematemesis, coffee ground emesis, heartburn, diarrhea, constipation, bloating, GI cramping, belching, excessive flatus, fecal incontinence, change in bowel habits, change in stool character, hematochezia or melena : Denies: dysuria, urinary frequency, urinary urgency or hematuria Musc: Denies: neck pain or back pain Skin/Breast: Denies: rash Neuro: Reports: headache(s) PFSH ED PFSH: Medical History Major depressive disorder, single episode, severe without psychotic features Sleep apnea Psychiatric care Diastolic heart failure Chest pain Lower extremity edema Atypical chest pain Cervical radiculopathy Pain of hand Diastolic CHF 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 Other Adopted Social History Smoking and tobacco/nicotine status: former use of tobacco/nicotine Quit status (tobacco/nicotine): has quit using Year quit tobacco: 2018 - 1-5 ciggs/day Alcohol intake: never Substance/Drug Use: never Lives independently: Yes Household members: none Housing: Apartment Current occupational status: disabled Do you think of yourself as: Straight/Heterosexual Current gender identity: Female Physical Exam Const: GENERAL APPEARANCE: cooperative and comfortable ORIENTATION/CONSCIOUSNESS: Yes awake, Yes oriented to person, Yes oriented to place and Yes oriented to time HENMT: COMMON NORMALS: normocephalic, atraumatic and hearing grossly normal bilaterally HEAD & SCALP: normocephalic and atraumatic Resp: COMMON NORMALS: normal respiratory effort, No retractions, No use of accessory muscles and clear to auscultation bilaterally AUSCULTATION: clear to auscultation bilaterally Cardio: COMMON NORMALS: regular rate, regular rhythm and No murmurs present (Cardio) RATE: regular rate RHYTHM: regular rhythm GI: COMMON NORMALS: No hepatosplenomegaly present AUSCULTATION: Yes normoactive bowel sounds PALPATION: Yes Tenderness to palpation present (GI), No Guarding due to palpation present (GI) and Yes No hepatosplenomegaly present Extremity: COMMON NORMALS: normal to inspection, capillary refill normal, no clubbing, cyanosis or edema, no calf tenderness and no pedal edema Neuro: SENSORIUM/ORIENTATION: Yes oriented to person, Yes oriented to place and Yes oriented to time Skin: COMMON NORMALS: no rashes or lesions noted GENERAL SKIN EXAM: no rashes or lesions noted Course Vital Signs: Vital signs: Vital Signs Temperature 97.8 F 08/07/23 12:38 Pulse Rate 69 08/07/23 15:42 Respiratory Rate 14 08/07/23 14:30 Blood Pressure 161/70 08/07/23 15:18 Pulse Oximetry 97 08/07/23 15:42 Oxygen Delivery Me thod Room Air 08/07/23 15:42 Oxygen Flow Rate 2 08/07/23 13:42 MDM - Abdominal Pain Medical Decision Making CT of the abdomen unremarkable labs show mild anemia but no leukocytosis urine is negative. Repeat abdominal exam did not show significant pain or discomfort. Discharge home clear liquid diet continue pantoprazole follow-up if not improving Differential Diagnosis Likely abdominal pain Medical Records I reviewed the patient's medical records. Lab Data I reviewed the patient's lab results. 08/07/23 13:17 08/07/23 13:17 Labs/Radiology: Radiology Impressions Chest X-Ray 08/07/23 12:48 IMPRESSION: Concern for developing left perihilar bronchitis/pneumonia. Abdomen/Pelvis CT 08/07/23 13:12 IMPRESSION: No acute abdominopelvic pathology. Laboratory Results WBC 5.51 10^3/uL (3.29-11.43) 08/07/23 13:17 RBC 3.70 10^6/uL (3.85-5.65) L 08/07/23 13:17 Hgb 10.70 g/dL (11.27-16.99) L 08/07/23 13:17 Hct 36.3 % (36-47) 08/07/23 13:17 MCV 98.1 fl (85-98) H 08/07/23 13:17 MCH 28.9 pg (27-33) 08/07/23 13:17 MCHC 29.5 g/dL (30-55) L 08/07/23 13:17 RDW 13.4 % (12.1-15.1) 08/07/23 13:17 Plt Count 214 10^3/cmm (157-399) 08/07/23 13:17 MPV 9.8 fL (7.4-10.4) 08/07/23 13:17 Neut % (Auto) 50.0 % 08/07/23 13:17 Lymph % (Auto) 34.3 % 08/07/23 13:17 [place] % (Auto) 11.1 % 08/07/23 13:17 Eos % (Auto) 3.3 % 08/07/23 13:17 Baso % (Auto) 1.1 % 08/07/23 13:17 Neut # (Auto) 2.76 10^3/uL (1.8-7.7) 08/07/23 13:17 Lymph # (Auto) 1.9 10^3/uL (0.8-4.8) 08/07/23 13:17 [place] # (Auto) 0.6 10^3/uL (0.2-0.9) 08/07/23 13:17 Eos # (Auto) 0.2 10^3/uL (0.0-0.8) 08/07/23 13:17 Baso # (Auto) 0.1 10^3/uL (0.0-0.1) 08/07/23 13:17 Nucleated RBC % (auto) 0 % 08/07/23 13:17 Nucleated RBCs # 0.0 /100WBC 08/07/23 13:17 Sodium 139 mmol/L (136-145) 08/07/23 13:17 Potassium 5.1 mmol/L (3.5-5.1) 08/07/23 13:17 Chloride 101 mmol/L (98-107) 08/07/23 13:17 Carbon Dioxide 35 mmol/L (22-29) H 08/07/23 13:17 Anion Gap 8.1 (5-19) 08/07/23 13:17 BUN 12 mg/dL (6-20) 08/07/23 13:17 Creatinine 0.8 mg/dL (0.5-0.9) 08/07/23 13:17 GFR Calculation 73.7 mL/min (90-130) L 08/07/23 13:17 Glucose 93 mg/dL (65-115) 08/07/23 13:17 Calculated Osmolality 287 mOsm/kg (285-295) 08/07/23 13:17 Calcium 8.3 mg/dL (8.5-10.5) L 08/07/23 13:17 Total Bilirubin 0.8 mg/dL (0.15-1.2) 08/07/23 13:17 AST 13 U/L (0-32) 08/07/23 13:17 ALT 9 U/L (0-33) 08/07/23 13:17 Alkaline Phosphatase 82 U/L (35-105) 08/07/23 13:17 Total Protein 6.1 g/dL (6.6-8.7) L 08/07/23 13:17 Albumin 3.5 g/dL (3.5-5.2) 08/07/23 13:17 Globulin 2.6 g/dL (1.3-4.6) 08/07/23 13:17 Lipase 29 U/L (13-60) 08/07/23 13:17 Urine Color Yellow (Yellow) 08/07/23 15:16 Urine Appearance Clear (CLEAR) 08/07/23 15:16 Urine pH 5 (5-7) 08/07/23 15:16 Ur Specific [place] 1.015 (1.005-1.030) 08/07/23 15:16 Urine Protein Neg (Negative) 08/07/23 15:16 Urine Glucose (UA) Norm (Normal) 08/07/23 15:16 Urine Ketones Negative (Negative) 08/07/23 15:16 Urine Blood Neg (Negative) 08/07/23 15:16 Urine Nitrate Negative (Negative) 08/07/23 15:16 Urine Bilirubin Neg (Negative) 08/07/23 15:16 Urine Urobilinogen Norm mg/dL (Negative) 08/07/23 15:16 Ur Leukocyte Esterase Negative (Negative) 08/07/23 15:16 All radiology interpretation(s) finalized by discharge Discharge Plan Discharge Patient Disposition: Home Clinical Impression: Abdominal pain Condition: Stable Prescriptions: No Action levetiracetam 250 mg tablet 250 mg PO BID aspirin [Adult Aspirin Regimen] 81 mg tablet,delayed release (DR/EC) 81 mg PO QAM albuterol sulfate [ProAir HFA] 90 mcg/actuation HFA aerosol inhaler 2 puff INHALATION Q6H PRN (Reason: Shortness Of Breath) acetaminophen 500 mg capsule 500 mg PO Q6H PRN (Reason: Pain) hydroxyzine HCl 10 mg Tablet 10 mg PO TID PRN (Reason: Anxiety) trazodone 50 mg tablet 100 mg PO BEDTIME duloxetine 60 mg capsule,delayed release(DR/EC) 60 mg PO QAM cetirizine 10 mg tablet 10 mg PO DAILY albuterol sulfate 2.5 mg /3 mL (0.083 %) solution for nebulization 2.5 mg inhalation QID PRN (Reason: SHORTNESS OF BREATH) levothyroxine 100 mcg tablet 100 mcg PO QAM gabapentin 300 mg capsule 300 mg PO TID ondansetron HCl 4 mg tablet 4 mg PO Q6H PRN (Reason: nausea and vomiting) Qty: 20 0RF sucralfate 1 gram tablet 1 g PO TID montelukast 10 mg tablet 10 mg PO DAILY pantoprazole [Protonix] 40 mg tablet,delayed release (DR/EC) 40 mg PO DAILY cholecalciferol (vitamin D3) [Vitamin D3] 25 mcg (1,000 unit) Tablet 25 mcg PO DAILY fluticasone propionate 50 mcg/actuation spray,suspension 1 spray INTRANASAL BID Gemtesa 75 mg tablet 75 mg PO DAILY potassium chloride 20 mEq tablet,ER particles/crystals 20 meq PO DAILY metoprolol succinate [Toprol XL] 25 mg tablet extended release 24 hr 50 mg PO DAILY Qty: 60 0RF atorvastatin 20 mg tablet 40 mg PO BEDTIME Qty: 60 0RF spironolactone 25 mg tablet 25 mg PO BEDTIME bumetanide 2 mg tablet 2 mg PO QAM Discharge Orders: Discharge ED (Routine); Ordered 08/07/23 Ordered By: Joshua Hale Referrals: Akila Rivera DO [Primary Care Provider] - Discharge Diet: Usual diet Discharge Activity: Increase activity as tolerated Patient Instructions: Abdominal Pain (ED), Opioid Safety, Pain Management Activity Restrictions/Additional Instructions: Thank you for choosing [facility] for your healthcare needs today. It is very important that you follow up as instructed or that you return to the Emergency Department should you have concerns or if your condition changes or worsens in any way. You were seen today in the emergency room for abdominal discomfort CT of your abdomen was negative for any acute pathology your laboratory test did not show any acute abnormalities. Recommend clear liquid diet for the next 1 to 2 days and advance as tolerated. Coding Level of Care Code ED Junior Software Engineer for Dc Serrato
--- NOTE | 2023-08-07 13:12 | CTR_ITS ---
PROCEDURE INFORMATION: Exam: CT Abdomen And Pelvis Without Contrast Exam date and time: 08/07/2023 1:40 PM Age: 57 years old Clinical indication: Abdominal pain; Prior surgery; Surgery date: 6+ months; Surgery type: Gb/csection; Patient HX: PT C/O of ruq pain that radiates across abdomen. TECHNIQUE: Imaging protocol: Computed tomography of the abdomen and pelvis without contrast. Radiation optimization: All CT scans at this facility use at least one of these dose optimization techniques: automated exposure control; mA and/or kV adjustment per patient size (includes targeted exams where dose is matched to clinical indication); or iterative reconstruction. COMPARISON: CT kidney stone [id number] 05/27/2023 9:53 PM RADIATION DOSE METRICS: Total DLP (mGy-cm): 1176 FINDINGS: Lungs: Lung bases are clear. Liver: There is enlargement of the liver, measuring 18.2 cm. The liver is otherwise unremarkable. Gallbladder and biliary ducts: Prior cholecystectomy. There is no evidence of biliary ductal dilation. Pancreas: The pancreas is normal. Spleen: The spleen is normal. Adrenal glands: The adrenal glands are normal. Kidneys and ureters: The kidneys are normal. The ureters are normal. Stomach and bowel: No bowel obstruction or significant bowel wall thickening. There is moderately excessive colonic stool content. Stomach is decompressed and difficult to evaluate. The duodenum is unremarkable. Appendix: There has been an appendectomy. Intraperitoneal space: No free fluid, fluid collections, or pneumoperitoneum. Vasculature: The arterial vasculature demonstrates diffuse mild atherosclerotic calcification. No aortic aneurysms. Lymph nodes: No concerning adenopathy. Urinary bladder: The bladder is normal. Reproductive: Reproductive organs are unremarkable as visualized. Bones/joints: Mild multilevel degenerative changes of the spine, as manifested by multilevel anterior osteophytes and multilevel decrease in intervertebral disc space. No acute skeletal abnormality or aggressive osseous lesion. Soft tissues: Calcified injection granulomas are noted in the subcutaneous tissues of the buttocks. No acute body wall soft tissue findings. CT/CT abdomen pelvis wo con [id number] IMPRESSION: No acute abdominopelvic pathology.
[2023-08-07 13:22] LABS: Basophils # 0.1 10^3/uL (0.0-0.1); Basophils % 1.1 %; Eosinophils # 0.2 10^3/uL (0.0-0.8); Eosinophils % 3.3 %; Hematocrit 36.3 % (36-47); Lymphocytes # 1.9 10^3/uL (0.8-4.8); Lymphocytes % 34.3 %; Mean Corpuscular HGB Conc 29.5 g/dL (30-55); Mean Corpuscular Hemoglobin 28.9 pg (27-33); Mean Corpuscular Volume 98.1 fl (85-98); Mean Platelet Volume 9.8 fL (7.4-10.4); Monocytes # 0.6 10^3/uL (0.2-0.9); Monocytes % 11.1 %; Neutrophils # 2.76 10^3/uL (1.8-7.7); Nucleated Red Blood Cells % 0 %; Platelet Count 214 10^3/cmm (157-399); Red Cell Distribution Width 13.4 % (12.1-15.1); White Blood Count 5.51 10^3/uL (3.29-11.43)
[2023-08-07 13:40] LABS: Alanine Aminotransferase 9 U/L (0-33); Albumin Level 3.5 g/dL (3.5-5.2); Alkaline Phosphatase 82 U/L (35-105); Anion Gap 8.1 (5-19); Aspartate Amino Transferase 13 U/L (0-32); Blood Urea Nitrogen 12 mg/dL (6-20); Calcium 8.3 mg/dL (8.5-10.5); Carbon Dioxide 35 mmol/L (22-29); Chloride 101 mmol/L (98-107); Creatinine Clr Calc Pharmacy 96.0994; Globulin 2.6 g/dL (1.3-4.6); Glomerular Filtration Rate 73.7 mL/min (90-130); Glucose 93 mg/dL (65-115); Lipase 29 U/L (13-60); Osmolality Calculated 287 mOsm/kg (285-295); Potassium 5.1 mmol/L (3.5-5.1); Sodium 139 mmol/L (136-145); Total Bilirubin 0.8 mg/dL (0.15-1.2); Total Protein 6.1 g/dL (6.6-8.7)
[2023-08-07 15:20] LABS: Add Urine Microscopic? NO; Charge for UA Resulting for Rev
[2023-08-07 15:24] LABS: Specific Gravity, Urine 1.015 (1.005-1.030); Urine Appearance Clear (CLEAR); Urine Color Yellow (Yellow); pH Urine 5 (5-7)
[2023-08-07 15:25] LABS: Bilirubin Urine Neg (Negative); Blood Urine Neg (Negative); Glucose Urine UA Norm (Normal); Ketones Urine Negative (Negative); Leukocyte Esterase Urine Negative (Negative); Nitrate Urine Negative (Negative); Protein Urine Neg (Negative); Urobilinogen Urine Norm (Negative)
[2023-08-07] MEDS: acetaminophen 325 mg Tablet 650 MG PO (15:41)
== END 2023-08-07 16:11 | disposition home or self-care (01) ==
PROVIDERS: Emergency Provider Family Medicine; PCP Family Medicine
DX: R10.11 Right upper quadrant pain (principal); Z79.82 Long term (current) use of aspirin; Z87.891 Personal history of nicotine dependence; I11.0 Hypertensive heart disease with heart failure; I50.9 Heart failure, unspecified; J44.9 Chronic obstructive pulmonary disease, unspecified
CPT/HCPCS: 71045; 74176; 80053; 81003; 83690; 85025; 93005; 99285

== ENCOUNTER 2023-09-02 20:06 | Emergency (ER) | payer MEDICARE, MEDICAID, SELFPAY ==
[2023-07-19 09:23] VITALS: BP 132/64; BMI 36.8
[2023-09-02 20:13] VITALS: BP 155/86; PULSE 90; RESP 16; TEMP 36.3; O2SAT 98
--- NOTE | 2023-09-02 20:37 | W.ED.HEATRA ---
HPI - Head Injury General: Chief complaint: Neck Pain/Injury Stated complaint: Head and Neck Pain Time Seen by Provider: 09/02/23 20:19 Source: patient Mode of arrival: EMS Limitations: no limitations History of Present Illness: Patient is a 57-year-old female who is well-known to our emergency department here after a wooden bookshelf accidentally came down and struck her on the right side of the head. No LOC. She states she is felt slightly dizzy since the incident. No neck pain. No other injuries or complaints at this time. MD Complaint: head injury Onset (ago): hour(s) Place: home Loss of Consciousness: no Location of injury: parietal and temporal Severity: moderate Radiation: none Other Injuries: none Associated symptoms: Reports vertigo; Deny confusion, nausea, neck pain or vomiting Review of Systems Eyes: Denies: change in vision or blurry vision GI: Denies: nausea or vomiting Musc: Denies: neck pain Neuro: Reports: headache(s) and vertigo; Denies: numbness in extremities, weakness in extremities, sensory changes, confusion or behavioral changes [facility] ED PFSH: Medical History Major depressive disorder, single episode, severe without psychotic features Sleep apnea Psychiatric care Diastolic heart failure Chest pain Lower extremity edema Atypical chest pain Cervical radiculopathy Pain of hand Diastolic CHF 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 Other Adopted Social History Smoking and tobacco/nicotine status: former use of tobacco/nicotine Quit status (tobacco/nicotine): has quit using Year quit tobacco: 2018 - 1-5 ciggs/day Alcohol intake: never Substance/Drug Use: never Lives independently: Yes Household members: none Housing: Apartment Current occupational status: disabled Do you think of yourself as: Straight/Heterosexual Current gender identity: Female Physical Exam Const: COMMON NORMALS: no acute distress, average body habitus, patient oriented x3, no limitations, alert and well nourished HENMT: COMMON NORMALS: normocephalic, EAC's normal and TM's normal bilaterally HEAD & SCALP: normal to inspection and normocephalic HEAD IMAGES: 1. abrasion/small hematoma FACE & SINUS: normal facial exam EXTERNAL AUDITORY CANAL: EAC's normal TYMPANIC MEMBRANE: TM's normal bilaterally Eye: COMMON NORMALS: Equal, round and reactive pupils present and EOMs intact bilaterally GENERAL EYE: appearance normal, both eyes and all related structures and normal light reflex PUPIL: Yes Equal, round and reactive pupils present DIRECT OPHTHALMOSCOPY: Yes normal light reflex Neck/C-Spine: COMMON NORMALS: full ROM GENERAL: Yes normal visual inspection CERVICAL SPINE: No Cervical spine tenderness Neuro: CELIO COMA SCALE: document GCS findings [place] coma scale eye opening: Spontaneous Celio coma scale verbal response: Orientated Celio coma scale motor response: Obey commands Celio coma scale total score: 15 COMMON NORMALS: patient oriented x3 and CN's II-XII intact bilaterally SENSORIUM/ORIENTATION: Yes alert Course Vital Signs: Vital signs: Vital Signs Temperature 97.4 F L 09/02/23 20:13 Pulse Rate 90 09/02/23 20:13 Respiratory Rate 16 09/02/23 20:13 Blood Pressure 155/86 09/02/23 20:13 Pulse Oximetry 98 09/02/23 20:13 [facility] - Head Injury Medcial Decision Making CT scan with bony windows obtained and negative. She will be allowed discharge. Medical Records I reviewed the patient's medical records. Lab Data Radiology Impressions Head CT 09/02/23 20:38 IMPRESSION: No acute intracranial abnormality. All radiology interpretation(s) finalized by discharge Discharge Plan Discharge Patient Disposition: Home Clinical Impression: Contusion of scalp Qualifiers: Encounter type: initial encounter Qualified Code(s): S00.03XA - Contusion of scalp, initial encounter Condition: Stable Prescriptions: No Action levetiracetam 250 mg tablet 250 mg PO BID aspirin [Adult Aspirin Regimen] 81 mg tablet,delayed release (DR/EC) 81 mg PO QAM albuterol sulfate [ProAir HFA] 90 mcg/actuation HFA aerosol inhaler 2 puff INHALATION Q6H PRN (Reason: Shortness Of Breath) acetaminophen 500 mg capsule 500 mg PO Q6H PRN (Reason: Pain) metoprolol succinate [Toprol XL] 25 mg tablet extended release 24 hr 50 mg PO DAILY Qty: 60 0RF hydroxyzine HCl 10 mg Tablet 10 mg PO TID PRN (Reason: Anxiety) trazodone 50 mg tablet 100 mg PO BEDTIME duloxetine 60 mg capsule,delayed release(DR/EC) 60 mg PO QAM cetirizine 10 mg tablet 10 mg PO DAILY albuterol sulfate 2.5 mg /3 mL (0.083 %) solution for nebulization 2.5 mg inhalation QID PRN (Reason: SHORTNESS OF BREATH) levothyroxine 100 mcg tablet 100 mcg PO QAM gabapentin 300 mg capsule 300 mg PO TID ondansetron HCl 4 mg tablet 4 mg PO Q6H PRN (Reason: nausea and vomiting) Qty: 20 0RF sucralfate 1 gram tablet 1 g PO TID montelukast 10 mg tablet 10 mg PO DAILY pantoprazole [Protonix] 40 mg tablet,delayed release (DR/EC) 40 mg PO DAILY cholecalciferol (vitamin D3) [Vitamin D3] 25 mcg (1,000 unit) Tablet 25 mcg PO DAILY fluticasone propionate 50 mcg/actuation spray,suspension 1 spray INTRANASAL BID Gemtesa 75 mg tablet 75 mg PO DAILY potassium chloride 20 mEq tablet,ER particles/crystals 20 meq PO DAILY atorvastatin 20 mg tablet 40 mg PO BEDTIME Qty: 60 0RF spironolactone 25 mg tablet 25 mg PO BEDTIME bumetanide 2 mg tablet 2 mg PO QAM Discharge Orders: Discharge ED (Routine); Ordered 09/02/23 Ordered By: Vickie Nelson Referrals: Akila Rivera DO [Primary Care Provider] - Coding Level of Care Code ED [employer] for Chg Rojelio
--- NOTE | 2023-09-02 20:38 | CTR_ITS ---
PROCEDURE INFORMATION: Exam: CT Head Without Contrast Exam date and time: 09/02/2023 8:51 PM Age: 57 years old Clinical indication: Injury or trauma; Fall; Blunt trauma (contusions or hematomas); Patient HX: Patient fell striking RT side of head against wooden shelf. Contusion behind RT ear. ; Additional info: Trauma; Bruising behind R ear, CT with bony windows TECHNIQUE: Imaging protocol: Computed tomography of the head without contrast. Radiation optimization: All CT scans at this facility use at least one of these dose optimization techniques: automated exposure control; mA and/or kV adjustment per patient size (includes targeted exams where dose is matched to clinical indication); or iterative reconstruction. COMPARISON: CT head wo con* [id number] 06/16/2023 5:42 PM RADIATION DOSE METRICS: Total DLP (mGy-cm): 1084.28 FINDINGS: Brain: Normal. No hemorrhage. Unremarkable white matter. No mass effect. Cerebral ventricles: No ventriculomegaly. Paranasal sinuses: Visualized sinuses are unremarkable. No fluid levels. Mastoid air cells: Visualized mastoid air cells are well aerated. Bones: Unremarkable. No acute fracture. Soft tissues: Unremarkable. CT/CT head wo con* [id number] IMPRESSION: No acute intracranial abnormality.
[2023-09-02 21:51] VITALS: PULSE 92; RESP 18; O2SAT 89
== END 2023-09-02 21:52 | disposition home or self-care (01) ==
PROVIDERS: Emergency Provider Physician Assistant; PCP Family Medicine
DX: S00.03XA Contusion of scalp, initial encounter (principal); Z79.82 Long term (current) use of aspirin; Z87.891 Personal history of nicotine dependence; I11.0 Hypertensive heart disease with heart failure; I50.30 Unspecified diastolic (congestive) heart failure; J44.9 Chronic obstructive pulmonary disease, unspecified; W20.8XXA Other cause of strike by thrown, projected or falling object, initial encounter
CPT/HCPCS: 70450; 99284

== ENCOUNTER 2023-09-15 11:11 | Emergency (ER) | payer MEDICARE, MEDICAID, SELFPAY ==
[2023-07-19 09:23] VITALS: BP 132/64; BMI 36.8
--- NOTE | 2023-09-15 11:13 | XR_ITS ---
WS: [email or web address] XR knee LT 3V* [id number] REASON FOR EXAM: pain FINDINGS: No fracture or focal bone lesion. Mild narrowing of the medial knee joint space with mild to moderate subchondral sclerosis and mild ma rginal osteophytosis. The lateral knee joint space is intact and well preserved. Patellofemoral joint space is intact and well preserved with moderate subchondral sclerosis and moder ate osteophytosis of the patella. XR/XR knee LT 3V* [id number] IMPRESSION: No acute abnormality. Mild osteoarthritis of the left knee.
--- NOTE | 2023-09-15 11:13 | XR_ITS ---
WS: [email or web address] XR hip RT 2-3V wo/w pel* [id number] REASON FOR EXAM: pain FINDINGS: No acute fracture or focal bone lesion. Mild narrowing of the joint space with mild subchondral sclerosis and marginal osteophytosis of the a cetabulum. No significant subchondral bone change in the femoral head. Remainder of the bony pelvis is intact without acute abnormality. XR/XR hip RT 2-3V wo/w pel* [id number] IMPRESSION: No acute abnormality. Mild osteoarthritis of the right hip.
[2023-09-15 11:16] VITALS: BP 121/75; PULSE 67; RESP 16; TEMP 36.7; O2SAT 99; BMI 38.0
--- NOTE | 2023-09-15 14:15 | W.ED.EXTPRO ---
HPI - Extremity Problem General: Chief complaint: Extremity Injury, Lower Stated complaint: left knee/right hip pain Time Seen by Provider: 09/15/23 11:13 History of Present Illness: 57-year-old female 3 days ago tripped and fell she is complaining of pain and bruising to her left knee into her right hip she did not strike her head there is no loss consciousness she is otherwise awake and alert. 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 Other Adopted Social History Smoking and tobacco/nicotine status: former use of tobacco/nicotine Quit status (tobacco/nicotine): has quit using Year quit tobacco: 2019 - 1-5 ciggs/day Alcohol intake: never Substance/Drug Use: never Lives independently: Yes Household members: none Housing: Apartment Current occupational status: disabled Do you think of yourself as: Straight/Heterosexual Current gender identity: Female Physical Exam Const: COMMON NORMALS: no acute distress GENERAL APPEARANCE: cooperative and comfortable ORIENTATION/CONSCIOUSNESS: Yes awake, Yes oriented to person, Yes oriented to place and Yes oriented to time HENMT: COMMON NORMALS: normocephalic, atraumatic and hearing grossly normal bilaterally HEAD & SCALP: normocephalic and atraumatic Resp: COMMON NORMALS: normal respiratory effort, No retractions, No use of accessory muscles and clear to auscultation bilaterally AUSCULTATION: clear to auscultation bilaterally Cardio: COMMON NORMALS: regular rate, regular rhythm and No murmurs present (Cardio) RATE: regular rate RHYTHM: regular rhythm Extremity: COMMON NORMALS: normal to inspection, capillary refill normal, no clubbing, cyanosis or edema, no calf tenderness and no pedal edema Neuro: SENSORIUM/ORIENTATION: Yes oriented to person, Yes oriented to place and Yes oriented to time Skin: COMMON NORMALS: no rashes or lesions noted GENERAL SKIN EXAM: no rashes or lesions noted Course Vital Signs: Vital signs: Vital Signs Temperature 98.1 F 09/15/23 11:16 Pulse Rate 67 09/15/23 11:16 Respiratory Rate 16 09/15/23 11:16 Blood Pressure 121/75 09/15/23 11:16 Pulse Oximetry 99 09/15/23 11:16 Oxygen Delivery Me thod Nasal Cannula 09/15/23 11:16 Oxygen Flow Rate 2 09/15/23 11:16 MDM - Extremity (Nontraumatic) Medical Decision Making No acute findings on exam x-ray is normal. Discharge patient home use anti-inflammatories as needed follow-up as needed Lab Data Radiology Impressions Hip/Pelvis X-Ray 09/15/23 11:13 IMPRESSION: No acute abnormality. Mild osteoarthritis of the right hip. Knee X-Ray 09/15/23 11:13 IMPRESSION: No acute abnormality. Mild osteoarthritis of the left knee. All radiology interpretation(s) finalized by discharge Discharge Plan Discharge Patient Disposition: Home Clinical Impression: Knee pain, left, Hip pain, right Condition: Stable Prescriptions: New diclofenac sodium 75 mg tablet,delayed release (DR/EC) 75 mg PO Q12H PRN (Reason: pain) Qty: 20 0RF No Action levetiracetam 250 mg tablet 250 mg PO BID aspirin [Adult Aspirin Regimen] 81 mg tablet,delayed release (DR/EC) 81 mg PO QAM albuterol sulfate [ProAir HFA] 90 mcg/actuation HFA aerosol inhaler 2 puff INHALATION Q6H PRN (Reason: Shortness Of Breath) acetaminophen 500 mg capsule 500 mg PO Q6H PRN (Reason: Pain) metoprolol succinate [Toprol XL] 25 mg tablet extended release 24 hr 50 mg PO DAILY Qty: 60 0RF hydroxyzine HCl 10 mg Tablet 10 mg PO TID PRN (Reason: Anxiety) trazodone 50 mg tablet 100 mg PO BEDTIME duloxetine 60 mg capsule,delayed release(DR/EC) 60 mg PO QAM cetirizine 10 mg tablet 10 mg PO DAILY albuterol sulfate 2.5 mg /3 mL (0.083 %) solution for nebulization 2.5 mg inhalation QID PRN (Reason: SHORTNESS OF BREATH) levothyroxine 100 mcg tablet 100 mcg PO QAM gabapentin 300 mg capsule 300 mg PO TID ondansetron HCl 4 mg tablet 4 mg PO Q6H PRN (Reason: nausea and vomiting) Qty: 20 0RF sucralfate 1 gram tablet 1 g PO TID montelukast 10 mg tablet 10 mg PO DAILY pantoprazole [Protonix] 40 mg tablet,delayed release (DR/EC) 40 mg PO DAILY cholecalciferol (vitamin D3) [Vitamin D3] 25 mcg (1,000 unit) Tablet 25 mcg PO DAILY fluticasone propionate 50 mcg/actuation spray,suspension 1 spray INTRANASAL BID Gemtesa 75 mg tablet 75 mg PO DAILY potassium chloride 20 mEq tablet,ER particles/crystals 20 meq PO DAILY atorvastatin 20 mg tablet 40 mg PO BEDTIME Qty: 60 0RF spironolactone 25 mg tablet 25 mg PO BEDTIME bumetanide 2 mg tablet 2 mg PO QAM Discharge Orders: Discharge ED (Routine); Ordered 09/15/23 Ordered By: Joshua Hale Referrals: Akila Rivera DO [Primary Care Provider] - Discharge Diet: Usual diet Discharge Activity: Increase activity as tolerated Patient Instructions: Opioid Safety, Pain Management Activity Restrictions/Additional Instructions: Thank you for choosing [facility] for your healthcare needs today. It is very important that you follow up as instructed or that you return to the Emergency Department should you have concerns or if your condition changes or worsens in any way. You were seen today after a fall plain x-rays did not show any fractures. There is some soft tissue bruising. You can use diclofenac and ice to the areas as needed to relieve discomfort. Coding Level of Care Code ED [employer] for Dc Serrato
== END 2023-09-15 14:40 | disposition home or self-care (01) ==
PROVIDERS: Emergency Provider Family Medicine; PCP Family Medicine
DX: M17.12 Unilateral primary osteoarthritis, left knee (principal); M25.562 Pain in left knee; M25.551 Pain in right hip; W01.0XXA Fall on same level from slipping, tripping and stumbling without subsequent striking against object, initial encounter
CPT/HCPCS: 73502; 73562; 99284

== ENCOUNTER 2023-09-29 13:34 | Outpatient (CLI) | payer SELFPAY ==
[2023-07-19 09:23] VITALS: BP 132/64; BMI 36.8
--- NOTE | 2023-09-29 13:48 | XR_ITS ---
WS: [email or web address] Right hand, 2 views, 09/29/2023 Clinical Data: R HAND JOINT PAIN Comparison: None. Findings: No fractures or dislocations are seen. The soft tissues are unremarkable. The joint space s are normal No periarticular demineralization or calcifications are seen. XR/XR hand RT 2V [id number] Impression: Negative right hand.
== END 2023-09-29 13:35 | disposition home or self-care (01) ==
LOC: RAD 13:37
PROVIDERS: PCP Family Medicine; Visit Provider Family Medicine
DX: M79.641 Pain in right hand (principal)
CPT/HCPCS: 73120

== ENCOUNTER 2023-11-11 20:49 | Emergency (ER) | payer MEDICAID, SELFPAY ==
[2023-07-19 09:23] VITALS: BP 132/64; BMI 36.8
[2023-11-11 20:54] VITALS: BP 138/89; PULSE 88; RESP 16; TEMP 36.8; O2SAT 94; BMI 36.6
--- NOTE | 2023-11-11 21:59 | CTR_ITS ---
PROCEDURE INFORMATION: Exam: CT Abdomen And Pelvis Without Contrast Exam date and time: 11/11/2023 10:05 PM Age: 57 years old Clinical indication: Other: Hematuria/dysuria; Abdominal pain; Generalized; Prior surgery; Surgery date: 6+ months; Surgery type: Csection; Patient HX: C/O diffuse abd pain with hematuria and dysuria. ; Additional info: Hematuria, abdominal pain TECHNIQUE: Imaging protocol: Computed tomography of the abdomen and pelvis without contrast. Radiation optimization: All CT scans at this facility use at least one of these dose optimization techniques: automated exposure control; mA and/or kV adjustment per patient size (includes targeted exams where dose is matched to clinical indication); or iterative reconstruction. COMPARISON: CT abdomen pelvis wo con [id number] 08/07/2023 1:40 PM RADIATION DOSE METRICS: Total DLP (mGy-cm): 970.22 FINDINGS: Liver: Normal. No mass. Gallbladder and biliary ducts: Status post cholecystectomy. Pancreas: Normal. No ductal dilation. Spleen: Normal. No splenomegaly. Adrenal glands: Normal. No mass. Kidneys and ureters: Normal. No hydronephrosis. Stomach and bowel: Unremarkable. No obstruction. No mucosal thickening. Appendix: No evidence of appendicitis. Intraperitoneal space: Unremarkable. No free air. No significant fluid collection. Vasculature: Mild atherosclerotic calcifications of the abdominal aorta. No aortic aneurysm. Lymph nodes: Unremarkable. No enlarged lymph nodes. Urinary bladder: Mild thickening along portions of the posterior urinary bladder wall (for example in the right on series 4, images 80 and 81 and on the left on image 84). Reproductive: Unremarkable as visualized. Bones/joints: Similar degenerative changes of the spine. No acute or aggressive osseous lesion. Soft tissues: Calcified injection granulomas again seen in the gluteal region. CT/CT abdomen pelvis wo con [id number] IMPRESSION: 1. Mild focal wall thickening along the posterior aspect of the urinary bladder, incompletely assessed. Consider direct visualization versus CT urogram to exclude neoplasm. 2. No nephrolithiasis or obstructive uropathy.
--- NOTE | 2023-11-11 22:00 | ED_ITS ---
HPI - Female Genitourinary 2 General: Chief complaint: Urogenital-Female Stated complaint: exessive vag bleed post bladder stimulator Time Seen by Provider: 11/11/23 21:34 History of Present Illness: Crystal Mcgrath is a 57-year-old female that presents to the emergency department with complaints of abdominal pain, distention, hematuria, dysuria. Onset of symptoms 3 days ago. Patient reports recently she underwent a trial implantation of a bladder stimulator. This was done on and removed on . Patient is currently scheduled for a permanent implantation on . Patient notes that she woke today with abdominal discomfort, dysuria, burning pain and hematuria. Intermittently has back pain. She denies any injuries or trauma to the abdomen. She has multiple comorbidities and takes numerous medications. Associated symptoms: Deny abdominal pain, headache(s) or nausea Related Data Home Medications Medication Instructions Recorded Confirmed albuterol sulfate 90 mcg/actuation 2 puff inhalation Q6H PRN 02/15/19 08/07/23 aerosol inhaler (ProAir HFA) Shortness Of Breath aspirin 81 mg tablet,delayed 81 mg PO QAM 02/15/19 08/07/23 release (Adult Aspirin Regimen) levetiracetam 250 mg tablet 250 mg PO BID 02/15/19 08/07/23 hydroxyzine HCl 10 mg tablet 10 mg PO TID PRN Anxiety 01/20/21 08/07/23 duloxetine 60 mg capsule,delayed 60 mg PO QAM 04/05/21 08/07/23 release trazodone 50 mg tablet 100 mg PO BEDTIME 04/05/21 08/07/23 cetirizine 10 mg tablet 10 mg PO DAILY 01/11/22 08/07/23 acetaminophen 500 mg capsule 500 mg PO Q6H PRN Pain 08/24/22 08/07/23 montelukast 10 mg tablet 10 mg PO DAILY 03/15/23 08/07/23 pantoprazole 40 mg tablet,delayed 40 mg PO DAILY 03/15/23 08/07/23 release (Protonix) sucralfate 1 gram tablet 1 g PO TID 03/15/23 08/07/23 albuterol sulfate 2.5 mg/3 mL 2.5 mg inhalation QID PRN 03/17/23 08/07/23 (0.083 %) solution for nebulization SHORTNESS OF BREATH cholecalciferol (vitamin D3) 25 25 mcg PO DAILY 06/09/23 08/07/23 mcg (1,000 unit) tablet (Vitamin D3) fluticasone propionate 50 1 spray intranasal BID 06/09/23 08/07/23 mcg/actuation nasal spray,suspension potassium chloride 20 mEq 20 meq PO DAILY 06/09/23 08/07/23 tablet,extended release(part/cryst) vibegron 75 mg tablet (Gemtesa) 75 mg PO DAILY 06/09/23 08/07/23 spironolactone 25 mg tablet 25 mg PO BEDTIME 06/22/23 08/07/23 gabapentin 300 mg capsule 300 mg PO TID 08/07/23 08/07/23 levothyroxine 100 mcg tablet 100 mcg PO QAM 08/07/23 08/07/23 Previous Rx's Medication Instructions Recorded ondansetron HCl 4 mg tablet 4 mg PO Q6H PRN nausea and 02/14/23 vomiting #20 tabs atorvastatin 20 mg tablet 40 mg (2 x 20 mg) PO BEDTIME #60 06/10/23 tabs diclofenac sodium 75 mg 75 mg PO Q12H PRN pain #20 tabs 09/15/23 tablet,delayed release metoprolol succinate 25 mg 50 mg (2 x 25 mg) PO DAILY #180 09/18/23 tablet,extended release 24 hr tabs (Toprol XL) bumetanide 2 mg tablet See Rx Instructions .Route 09/19/23 .COMPLEX #90 tabs phenazopyridine 100 mg tablet 100 mg PO Q8H 6 doses #7 tabs 11/11/23 (Pyridium) sulfamethoxazole 800 1 tab PO BID 7 days #14 tabs 11/11/23 mg-trimethoprim 160 mg tablet (Bactrim DS) Allergies Allergy/AdvReac Type Severity Reaction Status Date / Time chlorpromazine Allergy Unknown ALGY-Rash Verified 09/02/23 20:16 diphenhydramine Allergy Unknown Unknown Verified 09/02/23 20:16 Iodinated Contrast Media Allergy Unknown ALGY-Hives Verified 09/02/23 20:16 tramadol Allergy Unknown Verified 09/02/23 20:16 amoxicillin AdvReac Unknown ADR-Nausea Verified 09/02/23 20:16 codeine AdvReac Unknown ADR-Vomitin Verified 09/02/23 20:16 g Penicillins AdvReac Unknown ADR-Vomitin Verified 09/02/23 20:16 g Review of Systems 2 General: Reports: 10 or more systems reviewed and unremarkable except in HPI and below Const: Denies: fever(s), chills, change in appetite, change in weight, fatigue or malaise Eyes: Denies: change in vision, eye discomfort, eye discharge or eye redness ENMT: Denies: throat pain, enlarged tonsils, odynophagia, hoarseness, ear or mastoid pain, ear discharge, change in hearing, tinnitus, nasal discharge, nasal congestion, post nasal drip or sinus pain Card: Denies: chest pain, palpitations, irregular heart rhythm, edema, dyspnea on exertion, orthopnea or leg pain with exertion Resp: Denies: dyspnea, productive cough, non-productive cough, wheezing, stridor or chest congestion GI: Denies: abdominal pain, nausea, vomiting, dysphagia, diarrhea, constipation, bloating, GI cramping or hematochezia : Denies: flank pain, difficulty voiding, dysuria, urinary frequency, urinary urgency, urinary hesitancy, oliguria or hematuria Musc: Denies: neck pain, back pain, extremity pain, joint pain, joint swelling, joint redness, joint warmth or muscle weakness Skin/Breast: Denies: rash, pruritus, erythema, photosensitivity or new lesions Neuro: Denies: headache(s), numbness in extremities, weakness in extremities, sensory changes, lack of coordination, difficulty walking, frequent falls, dizziness, confusion, Slurred speech present, difficulty communicating thoughts, seizure-like activity or involuntary movements Endo: Denies: polyuria, polydipsia or tired all the time Peter/Lymph: Denies: easy bruising or easy bleeding PFSH ED 2 PFSH: Medical History Major depressive disorder, single episode, severe without psychotic features Sleep apnea Psychiatric care Diastolic heart failure Chest pain Lower extremity edema Atypical chest pain Cervical radiculopathy Pain of hand Diastolic CHF 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 Other Adopted Social History Smoking and tobacco/nicotine status: former use of tobacco/nicotine Quit status (tobacco/nicotine): has quit using Year quit tobacco: 2018-5 ciggs/day Alcohol intake: never Substance/Drug Use: never Lives independently: Yes Household members: none Housing: Apartment Current occupational status: disabled Do you think of yourself as: Straight/Heterosexual Current gender identity: Female Physical Exam 2 Const: COMMON NORMALS: no acute distress, patient oriented x3 and alert G ENERAL APPEARANCE: cooperative ORIENTATION/CONSCIOUSNESS: Yes awake, Yes oriented to person, Yes oriented to place and Yes oriented to time HENMT: COMMON NORMALS: normocephalic and atraumatic HEAD & SCALP: n ormocephalic and atraumatic FACE & SINUS: normal facial exam MOUTH: Normal oral and palatal mucosa present THROAT: posterior oropharynx normal Eye: COMMON NORMALS: Equal, round and reactive pupils present, EOMs intact bilaterally, conjunctivae normal and no scleral icterus GENERAL EYE: a ppearance normal, both eyes and all related structures ALIGNMENT: Yes alignment normal PERIORBITAL: periorbital findings normal CONJUNCTIVA: Yes conjunctivae normal PUPIL: Yes Equal, round and reactive pupils present Neck/C-Spine: COMMON NORMALS: full ROM GENERAL: Yes normal visual inspection Lymph: LYMPHATIC: no lymphadenopathy noted Chest: COMMONS NORMALS: normal inspection of the chest Breast/axilla inspection: Yes no chest deformity, asymmetry, normal contours, no nodules, masses, tenderness Resp: COMMON NORMALS: normal respiratory effort, No retractions, No use of accessory muscles and clear to auscultation bilaterally EFFORT & INSPECTION: Yes able to speak in complete sentences and Yes symmetric chest movement A USCULTATION: clear to auscultation bilaterally Cardio: COMMON NORMALS: regular rate, regular rhythm and Peripheral pulses 2+ throughout RATE: regular rate RHYTHM: regular rhythm PERIPHERAL PULSES: Peripheral pulses 2+ throughout GI: COMMON NORMALS: Normal to inspection, nondistended, normoactive bowel sounds present, Soft to palpation, non-tender and No hepatosplenomegaly present INSPECTION: Yes normal to inspection AUSCULTATION: Yes normoactive bowel sounds PALPATION: Yes Soft to palpation and Yes No hepatosplenomegaly present RECTAL EXAM: deferred : OTHER: Reports suprapubic abdominal discomfort, intermittent back pain. Reports hematuria dysuria frequency and urgency. This all began after a bladder stimulator trial. Extremity: COMMON NORMALS: normal to inspection GENERAL: Yes normal exam except as noted Neuro: COMMON NORMALS: patient oriented x3 SENSORIUM/ORIENTATION: Yes alert, Yes oriented to person, Yes oriented to place and Yes oriented to time CRANIAL NERVES: Yes CN normal except as noted Psych: COMMON NORMALS: mental status grossly normal, Normal thought process present, cooperative, activity/motor behavior normal, denies homicidal ideation and denies suicidal ideation THOUGHT PROCESS: Normal thought process present Skin: COMMON NORMALS: no rashes or lesions noted, no wounds and turgor normal GENERAL SKIN EXAM: no rashes or lesions noted and turgor normal Course 2 Vital Signs: Vital signs: Vital Signs Temperature 98.3 F 11/11/23 20:54 Pulse Rate 88 11/11/23 20:54 Respiratory Rate 16 11/11/23 20:54 Blood Pressure 138/89 11/11/23 20:54 Pulse Oximetry 94 11/11/23 20:54 Oxygen Delivery Me thod Room Air 11/11/23 20:54 [facility] - Female Medical Decision Making Crystal Mcgrath is a 57-year-old female that presents to the emergency department with complaints of abdominal pain, distention, hematuria, dysuria. Onset of symptoms 3 days ago. Patient reports recently she underwent a trial implantation of a bladder stimulator. This was done on and removed on . Patient is currently scheduled for a permanent implantation on . Patient notes that she woke today with abdominal discomfort, dysuria, burning pain and hematuria. Intermittently has back pain. She denies any injuries or trauma to the abdomen. She does report use of aspirin. She had originally held her aspirin the day of implantation but resumed it the following day and has been taking it consistently since then... Patient is going to undergo a CT abdomen pelvis to rule out hemorrhage, hematoma, renal stone, mass. We are going to obtain a urinalysis and laboratory evaluation. Patient underwent CT which revealed questionable left-sided hydronephrosis with no evidence of renal colliculi. Patient does have a thickened bladder wall but no evidence of hematoma. She underwent a CBC chemistry panel and urinalysis. The CBC reveals no leukocytosis, anemias, platelet dysfunction. Patient's chemistry panel reveals no acute abnormality with electrolytes, renal function, liver function. Patient did undergo a urinalysis which revealed hematuria and quite a bit of blood but no definitive infection. In spite of this I think she does have a UTI but she has pain dysuria frequency urgency burning and hematuria. I am going to treat her for UTI since she has had a recent procedure. Also going to have her discontinue her aspirin use. She is going to do this for the next 7 days and then have a repeat urinalysis done at her primary care office or Dr. Van. She will call Monday to notify Dr. Van of her visit and treatment. Case reviewed with Dr. Gama Lab Data 11/11/23 22:36 11/11/23 22:36 Laboratory Results WBC 9.07 10^3/uL (3.29-11.43) 11/11/23:36 RBC 4.19 10^6/uL (3.85-5.65) 11/11/23 22:36 Hgb 12.10 g/dL (11.27-16.99) 11/11/23:36 Hct 39.9 % (36-47) 11/11/23 22:36 MCV 95.2 fl (85-98) 11/11/23 22:36 MCH 28.9 pg (27-33) 11/11/23 22:36 MCHC 30.3 g/dL (30-55) 11/11/23 22:36 RDW 13.1 % (12.1-15.1) 11/11/23 22:36 Plt Count 238 10^3/cmm (157-399) 11/11/23 22:36 MPV 9.9 fL (7.4-10.4) 11/11/23 22:36 Neut % (Auto) 55.5 % 11/11/23 22:36 Lymph % (Auto) 30.5 % 11/11/23 22:36 [place] % (Auto) 10.5 % 11/11/23 22:36 Eos % (Auto) 2.4 % 11/11/23 22:36 Baso % (Auto) 0.9 % 11/11/23 22:36 Neut # (Auto) 5.03 10^3/uL (1.8-7.7) 11/11/23 22:36 Lymph # (Auto) 2.8 10^3/uL (0.8-4.8) 11/11/23 22:36 [place] # (Auto) 1.0 10^3/uL (0.2-0.9) H 11/11/23 22:36 Eos # (Auto) 0.2 10^3/uL (0.0-0.8) 11/11/23 22:36 Baso # (Auto) 0.1 10^3/uL (0.0-0.1) 11/11/23 22:36 Nucleated RBC % (auto) 0 % 11/11/23 22:36 Nucleated RBCs # 0.0 /100WBC 11/11/23 22:36 Sodium 141 mmol/L (136-145) 11/11/23 22:36 Potassium 4.3 mmol/L (3.5-5.1) 11/11/23 22:36 Chloride 100 mmol/L (98-107) 11/11/23 22:36 Carbon Dioxide 33 mmol/L (22-29) H 11/11/23 22:36 Anion Gap 12.3 (5-19) 11/11/23 22:36 BUN 16 mg/dL (6-20) 11/11/23 22:36 Creatinine 0.9 mg/dL (0.5-0.9) 11/11/23 22:36 GFR Calculation 64.3 mL/min (90-130) L 11/11/23 22:36 Glucose 88 mg/dL (65-115) 11/11/23 22:36 Calculated Osmolality 293 mOsm/kg (285-295) 11/11/23 22:36 Calcium 8.9 mg/dL (8.5-10.5) 11/11/23 22:36 Urine Color Yellow (Yellow) 11/11/23 22:40 Urine Appearance Clear (CLEAR) 11/11/23 22:40 Urine pH 5.0 (5-7) 11/11/23 22:40 Ur Specific [place] 1.006 (1.005-1.030) 11/11/23 22:40 Urine Protein Negative (Negative) 11/11/23 22:40 Urine Glucose (UA) Negative (Normal) 11/11/23 22:40 Urine Ketones Negative (Negative) 11/11/23 22:40 Urine Blood 3+ (Negative) A 11/11/23 22:40 Urine Nitrate Negative (Negative) 11/11/23 22:40 Urine Bilirubin Negative (Negative) 11/11/23 22:40 Urine Urobilinogen 0.2 mg/dL (Negative) 11/11/23 22:40 Ur Leukocyte Esterase Trace (Negative) A 11/11/23 22:40 Urine RBC 51-100 /hpf (0-2) H 11/11/23 22:40 Urine WBC 6-10 /hpf (0-5) 11/11/23 22:40 Ur Squamous Epith Cells 0-5 /hpf (0-5) 11/11/23 22:40 Amorphous Sediment Not Reportable 11/11/23 22:40 Urine Bacteria None seen /hpf (NONE) 11/11/23 22:40 Hyaline Casts 0-4 /lpf H 11/11/23 22:40 XR interpretation done by ED provider, pending radiology final review Discharge Plan Discharge Patient Disposition: Home Clinical Impression: Hematuria, Urinary tract infection Condition: Stable Prescriptions: New sulfamethoxazole-trimethoprim [Bactrim DS] 800-160 mg tablet 1 tab PO BID 7 Days Qty: 14 0RF phenazopyridine [Pyridium] 100 mg tablet 100 mg PO Q8H Qty: 7 0RF No Action levetiracetam 250 mg tablet 250 mg PO BID aspirin [Adult Aspirin Regimen] 81 mg tablet,delayed release (DR/EC) 81 mg PO QAM albuterol sulfate [ProAir HFA] 90 mcg/actuation HFA aerosol inhaler 2 puff INHALATION Q6H PRN (Reason: Shortness Of Breath) acetaminophen 500 mg capsule 500 mg PO Q6H PRN (Reason: Pain) metoprolol succinate [Toprol XL] 25 mg tablet extended release 24 hr 50 mg PO DAILY Qty: 180 2RF bumetanide 2 mg tablet See Rx Instructions .ROUTE .COMPLEX Qty: 90 0RF Dose Instruction: TAKE 1 TABLET BY MOUTH EVERY DAY Rx Instructions: TAKE 1 TABLET BY MOUTH EVERY DAY hydroxyzine HCl 10 mg Tablet 10 mg PO TID PRN (Reason: Anxiety) trazodone 50 mg tablet 100 mg PO BEDTIME duloxetine 60 mg capsule,delayed release(DR/EC) 60 mg PO QAM cetirizine 10 mg tablet 10 mg PO DAILY albuterol sulfate 2.5 mg /3 mL (0.083 %) solution for nebulization 2.5 mg inhalation QID PRN (Reason: SHORTNESS OF BREATH) levothyroxine 100 mcg tablet 100 mcg PO QAM gabapentin 300 mg capsule 300 mg PO TID diclofenac sodium 75 mg tablet,delayed release (DR/EC) 75 mg PO Q12H PRN (Reason: pain) Qty: 20 0RF ondansetron HCl 4 mg tablet 4 mg PO Q6H PRN (Reason: nausea and vomiting) Qty: 20 0RF sucralfate 1 gram tablet 1 g PO TID montelukast 10 mg tablet 10 mg PO DAILY pantoprazole [Protonix] 40 mg tablet,delayed release (DR/EC) 40 mg PO DAILY cholecalciferol (vitamin D3) [Vitamin D3] 25 mcg (1,000 unit) Tablet 25 mcg PO DAILY fluticasone propionate 50 mcg/actuation spray,suspension 1 spray INTRANASAL BID Gemtesa 75 mg tablet 75 mg PO DAILY potassium chloride 20 mEq tablet,ER particles/crystals 20 meq PO DAILY atorvastatin 20 mg tablet 40 mg PO BEDTIME Qty: 60 0RF spironolactone 25 mg tablet 25 mg PO BEDTIME Discharge Orders: Discharge ED (Routine); Ordered 11/11/23 Ordered By: Jasmin Reich [facility] [place]: Akila Rivera DO [Primary Care Provider] - Discharge Diet: Advance as tolerated Discharge Activity: Resume usual activity Patient Instructions: Phenazopyridine (By mouth) (Pyridium, Pyridiate, Azo Standard), Urinary Tract Infection in Women (DC), Hematuria (ED), Pain Management Activity Restrictions/Additional Instructions: Call Dr. Van on Monday to let them know that you were in the emergency department this weekend for hematuria?blood in your urine. Please hold your aspirin Please take Bactrim twice a day for 7 days. You will need a repeat urinalysis in 1 week Coding Level of Care Code ED [employer] for Dc [place]
[2023-11-11 22:44] LABS: Basophils # 0.1 10^3/uL (0.0-0.1); Basophils % 0.9 %; Eosinophils # 0.2 10^3/uL (0.0-0.8); Eosinophils % 2.4 %; Hematocrit 39.9 % (36-47); Lymphocytes # 2.8 10^3/uL (0.8-4.8); Lymphocytes % 30.5 %; Mean Corpuscular HGB Conc 30.3 g/dL (30-55); Mean Corpuscular Hemoglobin 28.9 pg (27-33); Mean Corpuscular Volume 95.2 fl (85-98); Mean Platelet Volume 9.9 fL (7.4-10.4); Monocytes % 10.5 %; Neutrophils # 5.03 10^3/uL (1.8-7.7); Neutrophils % 55.5 %; Nucleated Red Blood Cells % 0 %; Platelet Count 238 10^3/cmm (157-399); Red Blood Count 4.19 10^6/uL (3.85-5.65); Red Cell Distribution Width 13.1 % (12.1-15.1); White Blood Count 9.07 10^3/uL (3.29-11.43)
[2023-11-11 22:51] LABS: Bilirubin Urine Negative (Negative); Blood Urine 3+ (Negative); Glucose Urine UA Negative (Normal); Ketones Urine Negative (Negative); Leukocyte Esterase Urine Trace (Negative); Nitrate Urine Negative (Negative); Protein Urine Negative (Negative); Specific Gravity, Urine 1.006 (1.005-1.030); Urine Appearance Clear (CLEAR); Urine Color Yellow (Yellow); Urobilinogen Urine 0.2 mg/dL (Negative)
[2023-11-11 22:56] LABS: Add Urine Microscopic? YES; Bacteria Urine None Seen /hpf; Hyaline Casts Urine 0-4 /lpf; RBC Urine 51-100 /hpf (0-2); Squamous Epithelial Cell Urine 0-5 /hpf (0-5)
[2023-11-11 22:59] LABS: Anion Gap 12.3 (5-19); Blood Urea Nitrogen 16 mg/dL (6-20); Calcium 8.9 mg/dL (8.5-10.5); Carbon Dioxide 33 mmol/L (22-29); Chloride 100 mmol/L (98-107); Creatinine Clr Calc Pharmacy 85.4217; Glomerular Filtration Rate 64.3 mL/min (90-130); Glucose 88 mg/dL (65-115); Osmolality Calculated 293 mOsm/kg (285-295); Potassium 4.3 mmol/L (3.5-5.1); Sodium 141 mmol/L (136-145)
[2023-11-11 23:05] LABS: Add Urine Culture? Yes
[2023-11-11] MEDS: sulfamethoxazole-trimeth DS 160-800 mg Tablet 1 TAB PO (23:31)
[2023-11-11] MEDS: phenazopyridine 100 mg Tablet 200 MG PO (23:31)
[2023-11-11 23:32] VITALS: BP 123/66; PULSE 87; O2SAT 94
[2023-11-11 23:55] VITALS: BP 117/54; PULSE 82; O2SAT 93
== END 2023-11-11 23:58 | disposition home or self-care (01) ==
PROVIDERS: Emergency Provider Nurse Practitioner; PCP Family Medicine
DX: N39.0 Urinary tract infection, site not specified (principal); R31.9 Hematuria, unspecified; Z79.82 Long term (current) use of aspirin; Z87.891 Personal history of nicotine dependence; I11.0 Hypertensive heart disease with heart failure; I50.30 Unspecified diastolic (congestive) heart failure; J44.9 Chronic obstructive pulmonary disease, unspecified
CPT/HCPCS: 36415; 74176; 80048; 81001; 85025; 87077; 87086; 87186; 99284

== ENCOUNTER 2023-11-18 23:46 | Emergency (ER) | payer MEDICARE, MEDICAID, SELFPAY ==
[2023-07-19 09:23] VITALS: BP 132/64; BMI 36.8
[2023-11-19 00:03] VITALS: BP 133/74; PULSE 71; RESP 18; TEMP 36.6; O2SAT 100; BMI 37.5
[2023-11-19 01:19] LABS: Basophils # 0.1 10^3/uL (0.0-0.1); Eosinophils # 0.3 10^3/uL (0.0-0.8); Eosinophils % 4.1 %; Hematocrit 36.9 % (36-47); Lymphocytes # 2.1 10^3/uL (0.8-4.8); Lymphocytes % 29.8 %; Mean Corpuscular HGB Conc 30.1 g/dL (30-55); Mean Corpuscular Hemoglobin 28.8 pg (27-33); Mean Corpuscular Volume 95.8 fl (85-98); Mean Platelet Volume 10.9 fL (7.4-10.4); Monocytes # 0.8 10^3/uL (0.2-0.9); Monocytes % 11.8 %; Neutrophils # 3.78 10^3/uL (1.8-7.7); Neutrophils % 53.2 %; Nucleated Red Blood Cells % 0 %; Platelet Count 231 10^3/cmm (157-399); Red Blood Count 3.85 10^6/uL (3.85-5.65); Red Cell Distribution Width 13.1 % (12.1-15.1); White Blood Count 7.11 10^3/uL (3.29-11.43)
[2023-11-19 01:33] LABS: Alanine Aminotransferase 10 U/L (0-33); Albumin Level 3.9 g/dL (3.5-5.2); Alkaline Phosphatase 97 U/L (35-105); Anion Gap 10.7 (5-19); Aspartate Amino Transferase 22 U/L (0-32); Blood Urea Nitrogen 14 mg/dL (6-20); Calcium 8.2 mg/dL (8.5-10.5); Carbon Dioxide 38 mmol/L (22-29); Chloride 96 mmol/L (98-107); Creatinine Clr Calc Pharmacy 64.9443; Globulin 2.2 g/dL (1.3-4.6); Glomerular Filtration Rate 46.1 mL/min (90-130); Glucose 107 mg/dL (65-115); Osmolality Calculated 291 mOsm/kg (285-295); Potassium 4.7 mmol/L (3.5-5.1); Sodium 140 mmol/L (136-145); Total Bilirubin 0.5 mg/dL (0.15-1.2); Total Protein 6.1 g/dL (6.6-8.7)
[2023-11-19 02:06] LABS: Bilirubin Urine 1+ (Negative); Blood Urine Negative (Negative); Glucose Urine UA Negative (Normal); Ketones Urine Trace (Negative); Leukocyte Esterase Urine Trace (Negative); Protein Urine Negative (Negative); Specific Gravity, Urine 1.018 (1.005-1.030); Urine Appearance Clear (CLEAR); Urine Color Dark Yellow (Yellow); pH Urine 6.5 (5-7)
[2023-11-19 02:11] LABS: Add Urine Microscopic? YES; Bacteria Urine None Seen /hpf; Hyaline Casts Urine 0-4 /lpf; RBC Urine 0-2 /hpf (0-2); Squamous Epithelial Cell Urine 0-5 /hpf (0-5); WBC Urine 0-5 /hpf (0-5)
[2023-11-19 02:25] LABS: Nitrate Urine Negative (Negative)
--- NOTE | 2023-11-19 02:46 | W.ED.ABDPA2 ---
HPI - Abdominal Pain General: Chief Complaint: Abdominal Pain Stated Complaint: high bp, abd pain Time Seen by Provider: 11/19/23 00:09 History of Present Illness: 57-year-old female patient well-known to the ER service. She presents with lower abdominal pain, and high blood pressure at home. She states that she has not been able to urinate since morning time. No fever no vomiting. No diarrhea. No blood in the stool. Related Data Home Medications Medication Instructions Recorded Confirmed albuterol sulfate 90 mcg/actuation 2 puff inhalation Q6H PRN 02/15/19 08/07/23 aerosol inhaler (ProAir HFA) Shortness Of Breath aspirin 81 mg tablet,delayed 81 mg PO QAM 02/15/19 08/07/23 release (Adult Aspirin Regimen) levetiracetam 250 mg tablet 250 mg PO BID 02/15/19 08/07/23 hydroxyzine HCl 10 mg tablet 10 mg PO TID PRN Anxiety 01/20/21 08/07/23 duloxetine 60 mg capsule,delayed 60 mg PO QAM 04/05/21 08/07/23 release trazodone 50 mg tablet 100 mg PO BEDTIME 04/05/21 08/07/23 cetirizine 10 mg tablet 10 mg PO DAILY 01/11/22 08/07/23 acetaminophen 500 mg capsule 500 mg PO Q6H PRN Pain 08/24/22 08/07/23 montelukast 10 mg tablet 10 mg PO DAILY 03/15/23 08/07/23 pantoprazole 40 mg tablet,delayed 40 mg PO DAILY 03/15/23 08/07/23 release (Protonix) sucralfate 1 gram tablet 1 g PO TID 03/15/23 08/07/23 albuterol sulfate 2.5 mg/3 mL 2.5 mg inhalation QID PRN 03/17/23 08/07/23 (0.083 %) solution for nebulization SHORTNESS OF BREATH cholecalciferol (vitamin D3) 25 25 mcg PO DAILY 06/09/23 08/07/23 mcg (1,000 unit) tablet (Vitamin D3) fluticasone propionate 50 1 spray intranasal BID 06/09/23 08/07/23 mcg/actuation nasal spray,suspension potassium chloride 20 mEq 20 meq PO DAILY 06/09/23 08/07/23 tablet,extended release(part/cryst) vibegron 75 mg tablet (Gemtesa) 75 mg PO DAILY 06/09/23 08/07/23 spironolactone 25 mg tablet 25 mg PO BEDTIME 06/22/23 08/07/23 gabapentin 300 mg capsule 300 mg PO TID 08/07/23 08/07/23 levothyroxine 100 mcg tablet 100 mcg PO QAM 08/07/23 08/07/23 Previous Rx's Medication Instructions Recorded ondansetron HCl 4 mg tablet 4 mg PO Q6H PRN nausea and 02/14/23 vomiting #20 tabs atorvastatin 20 mg tablet 40 mg (2 x 20 mg) PO BEDTIME #60 06/10/23 tabs diclofenac sodium 75 mg 75 mg PO Q12H PRN pain #20 tabs 09/15/23 tablet,delayed release metoprolol succinate 25 mg 50 mg (2 x 25 mg) PO DAILY #180 09/18/23 tablet,extended release 24 hr tabs (Toprol XL) bumetanide 2 mg tablet See Rx Instructions .Route 09/19/23 .COMPLEX #90 tabs phenazopyridine 100 mg tablet 100 mg PO Q8H 6 doses #7 tabs 11/11/23 (Pyridium) Allergies Allergy/AdvReac Type Severity Reaction Status Date / Time chlorpromazine Allergy Unknown ALGY-Rash Verified 09/02/23 20:16 diphenhydramine Allergy Unknown Unknown Verified 09/02/23 20:16 Iodinated Contrast Media Allergy Unknown ALGY-Hives Verified 09/02/23 20:16 tramadol Allergy Unknown Verified 09/02/23 20:16 amoxicillin AdvReac Unknown ADR-Nausea Verified 09/02/23 20:16 codeine AdvReac Unknown ADR-Vomitin Verified 09/02/23 20:16 g Penicillins AdvReac Unknown ADR-Vomitin Verified 09/02/23 20:16 g PFSH ED PFSH: Medical History Major depressive disorder, single episode, severe without psychotic features Sleep apnea Psychiatric care Diastolic heart failure Chest pain Lower extremity edema Atypical chest pain Cervical radiculopathy Pain of hand Diastolic CHF 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 Other Adopted Social History Smoking and tobacco/nicotine status: former use of tobacco/nicotine Quit status (tobacco/nicotine): has quit using Year quit tobacco: 2019 - 1-5 ciggs/day Alcohol intake: never Substance/Drug Use: never Lives independently: Yes Household members: none Housing: Apartment Current occupational status: disabled Do you think of yourself as: Straight/Heterosexual Current gender identity: Female Physical Exam Const: COMMON NORMALS: no acute distress GENERAL APPEARANCE: cooperative; not ill appearing and not frail appearing HENMT: COMMON NORMALS: normocephalic, atraumatic and Normal external nose present HEAD & SCALP: normocephalic and atraumatic FACE & SINUS: normal facial exam and face symmetric NOSE: Normal external nose present Eye: COMMON NORMALS: Equal, round and reactive pupils present and EOMs intact bilaterally PUPIL: Yes Equal, round and reactive pupils present Neck/C-Spine: GENERAL: Yes trachea midline Chest: CHEST: Yes Symmetrical chest wall rise Resp: COMMON NORMALS: normal respiratory effort, No retractions, No use of accessory muscles and clear to auscultation bilaterally AUSCULTATION: clear to auscultation bilaterally Cardio: COMMON NORMALS: regular rate and regular rhythm RATE: regular rate RHYTHM: regular rhythm GI: COMMON NORMALS: Normal to inspection, nondistended, normoactive bowel sounds present Extremity: COMMON NORMALS: no pedal edema Neuro: CELIO COMA SCALE: document GCS findings [place] coma scale eye opening: Spontaneous [place] coma scale verbal response: Orientated [place] coma scale motor response: [place] commands [place] coma scale total score: 15 SENSORY EXAM: Yes extremities (intact) Psych: COMMON NORMALS: speech normal SPEECH: Yes normal speech Skin: COMMON NORMALS: no rashes or lesions noted GENERAL SKIN EXAM: no rashes or lesions noted Course Vital Signs: Vital signs: Vital Signs Temperature 98 F 11/19/23 00:03 Pulse Rate 87 11/19/23 05:00 Respiratory Rate 18 11/19/23 00:03 Blood Pressure 143/67 11/19/23 05:00 Pulse Oximetry 94 11/19/23 05:00 MDM - Abdominal Pain Medical Decision Making Vitals are normal. She is afebrile. Hemoglobin is 11. White blood cell count is 7. CRP is 3. There is no urinary tract infection. She has 77 mL in her bladder by bladder scan. Liver enzymes are normal. She will be allowed discharge. She had a CT scan last week showing no acute disease versus mild cystitis. UA negative currently. treated symptoms. stable for DC. outpt followup Lab Data 11/19/23 00:35 11/19/23 00:35 Labs/Radiology: Laboratory Results WBC 7.11 10^3/uL (3.29-11.43) 11/19/23 00:35 RBC 3.85 10^6/uL (3.85-5.65) 11/19/23 00:35 Hgb 11.10 g/dL (11.27-16.99) L 11/19/23 00:35 Hct 36.9 % (36-47) 11/19/23 00:35 MCV 95.8 fl (85-98) 11/19/23 00:35 MCH 28.8 pg (27-33) 11/19/23 00:35 MCHC 30.1 g/dL (30-55) 11/19/23 00:35 RDW 13.1 % (12.1-15.1) 11/19/23 00:35 Plt Count 231 10^3/cmm (157-399) 11/19/23 00:35 MPV 10.9 fL (7.4-10.4) H 11/19/23 00:35 Neut % (Auto) 53.2 % 11/19/23 00:35 Lymph % (Auto) 29.8 % 11/19/23 00:35 [place] % (Auto) 11.8 % 11/19/23 00:35 Eos % (Auto) 4.1 % 11/19/23 00:35 Baso % (Auto) 1.0 % 11/19/23 00:35 Neut # (Auto) 3.78 10^3/uL (1.8-7.7) 11/19/23 00:35 Lymph # (Auto) 2.1 10^3/uL (0.8-4.8) 11/19/23 00:35 [place] # (Auto) 0.8 10^3/uL (0.2-0.9) 11/19/23 00:35 Eos # (Auto) 0.3 10^3/uL (0.0-0.8) 11/19/23 00:35 Baso # (Auto) 0.1 10^3/uL (0.0-0.1) 11/19/23 00:35 Nucleated RBC % (auto) 0 % 11/19/23 00:35 Nucleated RBCs # 0.0 /100WBC 11/19/23 00:35 Sodium 140 mmol/L (136-145) 11/19/23 00:35 Potassium 4.7 mmol/L (3.5-5.1) 11/19/23 00:35 Chloride 96 mmol/L (98-107) L 11/19/23 00:35 Carbon Dioxide 38 mmol/L (22-29) H 11/19/23 00:35 Anion Gap 10.7 (5-19) 11/19/23 00:35 BUN 14 mg/dL (6-20) 11/19/23 00:35 Creatinine 1.2 mg/dL (0.5-0.9) H 11/19/23 00:35 GFR Calculation 46.1 mL/min (90-130) L 11/19/23 00:35 Glucose 107 mg/dL (65-115) 11/19/23 00:35 Calculated Osmolality 291 mOsm/kg (285-295) 11/19/23 00:35 Calcium 8.2 mg/dL (8.5-10.5) L 11/19/23 00:35 Total Bilirubin 0.5 mg/dL (0.15-1.2) 11/19/23 00:35 AST 22 U/L (0-32) 11/19/23 00:35 ALT 10 U/L (0-33) 11/19/23 00:35 Alkaline Phosphatase 97 U/L (35-105) 11/19/23 00:35 C-Reactive Protein 3.0 mg/L (0.0-4.9) 11/19/23 00:35 Total Protein 6.1 g/dL (6.6-8.7) L 11/19/23 00:35 Albumin 3.9 g/dL (3.5-5.2) 11/19/23 00:35 Globulin 2.2 g/dL (1.3-4.6) 11/19/23 00:35 Urine Color Dark yellow (Yellow) A 11/19/23 01:55 Urine Appearance Clear (CLEAR) 11/19/23 01:55 Urine pH 6.5 (5-7) 11/19/23 01:55 Ur Specific [place] 1.018 (1.005-1.030) 11/19/23 01:55 Urine Protein Negative (Negative) 11/19/23 01:55 Urine Glucose (UA) Negative (Normal) 11/19/23 01:55 Urine Ketones Trace (Negative) 11/19/23 01:55 Urine Blood Negative (Negative) 11/19/23 01:55 Urine Nitrate Negative (Negative) 11/19/23 01:55 Urine Bilirubin 1+ (Negative) H 11/19/23 01:55 Urine Urobilinogen 1.0 mg/dL (Negative) 11/19/23 01:55 Ur Leukocyte Esterase Trace (Negative) A 11/19/23 01:55 Urine RBC 0-2 /hpf (0-2) 11/19/23 01:55 Urine WBC 0-5 /hpf (0-5) 11/19/23 01:55 Ur Squamous Epith Cells 0-5 /hpf (0-5) 11/19/23 01:55 Amorphous Sediment Not Reportable 11/19/23 01:55 Urine Bacteria None seen /hpf (NONE) 11/19/23 01:55 Hyaline Casts 0-4 /lpf H 11/19/23 01:55 No radiology studies performed this visit Discharge Plan Discharge Patient Disposition: Home Clinical Impression: Abdominal pain Condition: Stable Prescriptions: No Action levetiracetam 250 mg tablet 250 mg PO BID aspirin [Adult Aspirin Regimen] 81 mg tablet,delayed release (DR/EC) 81 mg PO QAM albuterol sulfate [ProAir HFA] 90 mcg/actuation HFA aerosol inhaler 2 puff INHALATION Q6H PRN (Reason: Shortness Of Breath) acetaminophen 500 mg capsule 500 mg PO Q6H PRN (Reason: Pain) metoprolol succinate [Toprol XL] 25 mg tablet extended release 24 hr 50 mg PO DAILY Qty: 180 2RF bumetanide 2 mg tablet See Rx Instructions .ROUTE .COMPLEX Qty: 90 0RF Dose Instruction: TAKE 1 TABLET BY MOUTH EVERY DAY Rx Instructions: TAKE 1 TABLET BY MOUTH EVERY DAY hydroxyzine HCl 10 mg Tablet 10 mg PO TID PRN (Reason: Anxiety) trazodone 50 mg tablet 100 mg PO BEDTIME duloxetine 60 mg capsule,delayed release(DR/EC) 60 mg PO QAM cetirizine 10 mg tablet 10 mg PO DAILY albuterol sulfate 2.5 mg /3 mL (0.083 %) solution for nebulization 2.5 mg inhalation QID PRN (Reason: SHORTNESS OF BREATH) levothyroxine 100 mcg tablet 100 mcg PO QAM gabapentin 300 mg capsule 300 mg PO TID diclofenac sodium 75 mg tablet,delayed release (DR/EC) 75 mg PO Q12H PRN (Reason: pain) Qty: 20 0RF ondansetron HCl 4 mg tablet 4 mg PO Q6H PRN (Reason: nausea and vomiting) Qty: 20 0RF sucralfate 1 gram tablet 1 g PO TID montelukast 10 mg tablet 10 mg PO DAILY pantoprazole [Protonix] 40 mg tablet,delayed release (DR/EC) 40 mg PO DAILY cholecalciferol (vitamin D3) [Vitamin D3] 25 mcg (1,000 unit) Tablet 25 mcg PO DAILY fluticasone propionate 50 mcg/actuation spray,suspension 1 spray INTRANASAL BID Gemtesa 75 mg tablet 75 mg PO DAILY potassium chloride 20 mEq tablet,ER particles/crystals 20 meq PO DAILY atorvastatin 20 mg tablet 40 mg PO BEDTIME Qty: 60 0RF spironolactone 25 mg tablet 25 mg PO BEDTIME phenazopyridine [Pyridium] 100 mg tablet 100 mg PO Q8H Qty: 7 0RF Discharge Orders: Discharge ED (Routine); Ordered 11/19/23 Ordered By: Odilon Gama Referrals: Akila Rivera DO [Primary Care Provider] - 1-3 days Patient Instructions: Abdominal Pain (ED), Opioid Safety, Pain Management Coding Level of Care Code ED Financial [employer] Assistant for [facility]
[2023-11-19] MEDS: ondansetron 2 mg/ML SDV 2 mL 4 MG IVP (03:28)
[2023-11-19] MEDS: ketorolac 30 mg/mL INJ IVP (03:28)
[2023-11-19 05:00] VITALS: BP 143/67; PULSE 87; O2SAT 94
== END 2023-11-19 06:20 | disposition home or self-care (01) ==
PROVIDERS: Emergency Provider Emergency Medicine; PCP Family Medicine
DX: R10.30 Lower abdominal pain, unspecified (principal); Z79.82 Long term (current) use of aspirin; Z87.891 Personal history of nicotine dependence; I11.0 Hypertensive heart disease with heart failure; I50.30 Unspecified diastolic (congestive) heart failure; J44.9 Chronic obstructive pulmonary disease, unspecified
CPT/HCPCS: 51798; 80053; 81001; 85025; 86140; 96374; 96375; 99284; J1885; J2405

== ENCOUNTER 2023-12-21 14:40 | Emergency (ER) | payer MEDICARE, MEDICAID, SELFPAY ==
[2023-07-19 09:23] VITALS: BP 132/64; BMI 36.8
[2023-12-21 14:47] VITALS: BP 147/48; PULSE 90; RESP 18; TEMP 36.7; O2SAT 96
--- NOTE | 2023-12-21 14:49 | ED_ITS ---
HPI - General Adult 2 General: Chief complaint: Wound/Laceration Stated complaint: right post op hip pain Time Seen by Provider: 12/21/23 14:40 Source: patient and EMS Mode of arrival: EMS Limitations: no limitations History of Present Illness: 57-year-old female is very well-known to the ER patient had a nerve stimulator placed right lower back at [facility] the [facility]. She states she has had pain at the site states the pain is worsened today rates it an 8 out of 10 she denies any fever denies any drainage denies any worse improving factors. Associated symptoms: Deny chest pain, dyspnea, headache(s), nausea, rash or vomiting Related Data Home Medications Medication Instructions Recorded Confirmed albuterol sulfate 90 mcg/actuation 2 puff inhalation Q6H PRN 02/15/19 08/07/23 aerosol inhaler (ProAir HFA) Shortness Of Breath aspirin 81 mg tablet,delayed 81 mg PO QAM 02/15/19 08/07/23 release (Adult Aspirin Regimen) levetiracetam 250 mg tablet 250 mg PO BID 02/15/19 08/07/23 hydroxyzine HCl 10 mg tablet 10 mg PO TID PRN Anxiety 01/20/21 08/07/23 duloxetine 60 mg capsule,delayed 60 mg PO QAM 04/05/21 08/07/23 release trazodone 50 mg tablet 100 mg PO BEDTIME 04/05/21 08/07/23 cetirizine 10 mg tablet 10 mg PO DAILY 01/11/22 08/07/23 acetaminophen 500 mg capsule 500 mg PO Q6H PRN Pain 08/24/22 08/07/23 montelukast 10 mg tablet 10 mg PO DAILY 03/15/23 08/07/23 pantoprazole 40 mg tablet,delayed 40 mg PO DAILY 03/15/23 08/07/23 release (Protonix) sucralfate 1 gram tablet 1 g PO TID 03/15/23 08/07/23 albuterol sulfate 2.5 mg/3 mL 2.5 mg inhalation QID PRN 03/17/23 08/07/23 (0.083 %) solution for nebulization SHORTNESS OF BREATH cholecalciferol (vitamin D3) 25 25 mcg PO DAILY 06/09/23 08/07/23 mcg (1,000 unit) tablet (Vitamin D3) fluticasone propionate 50 1 spray intranasal BID 06/09/23 08/07/23 mcg/actuation nasal spray,suspension potassium chloride 20 mEq 20 meq PO DAILY 06/09/23 08/07/23 tablet,extended release(part/cryst) vibegron 75 mg tablet (Gemtesa) 75 mg PO DAILY 06/09/23 08/07/23 spironolactone 25 mg tablet 25 mg PO BEDTIME 06/22/23 08/07/23 gabapentin 300 mg capsule 300 mg PO TID 08/07/23 08/07/23 levothyroxine 100 mcg tablet 100 mcg PO QAM 08/07/23 08/07/23 Previous Rx's Medication Instructions Recorded ondansetron HCl 4 mg tablet 4 mg PO Q6H PRN nausea and 02/14/23 vomiting #20 tabs atorvastatin 20 mg tablet 40 mg (2 x 20 mg) PO BEDTIME #60 06/10/23 tabs diclofenac sodium 75 mg 75 mg PO Q12H PRN pain #20 tabs 09/15/23 tablet,delayed release metoprolol succinate 25 mg 50 mg (2 x 25 mg) PO DAILY #180 09/18/23 tablet,extended release 24 hr tabs (Toprol XL) bumetanide 2 mg tablet See Rx Instructions .Route 09/19/23 .COMPLEX #90 tabs phenazopyridine 100 mg tablet 100 mg PO Q8H 6 doses #7 tabs 11/11/23 (Pyridium) Allergies Allergy/AdvReac Type Severity Reaction Status Date / Time chlorpromazine Allergy Unknown ALGY-Rash Verified 09/02/23 20:16 diphenhydramine Allergy Unknown Unknown Verified 09/02/23 20:16 Iodinated Contrast Media Allergy Unknown ALGY-Hives Verified 09/02/23 20:16 tramadol Allergy Unknown Verified 09/02/23 20:16 amoxicillin AdvReac Unknown ADR-Nausea Verified 09/02/23 20:16 codeine AdvReac Unknown ADR-Vomitin Verified 09/02/23 20:16 g Penicillins AdvReac Unknown ADR-Vomitin Verified 09/02/23 20:16 g Review of Systems 2 Const: Denies: fever(s), chills, body aches or change in appetite ENMT: Denies: throat pain or dental pain Card: Denies: chest pain Resp: Denies: dyspnea GI: Denies: abdominal pain, nausea, vomiting or diarrhea Musc: Denies: neck pain or back pain Skin/Breast: Denies: rash Neuro: Denies: headache(s) PFSH ED 2 PFSH: Medical History Major depressive disorder, single episode, severe without psychotic features Sleep apnea Psychiatric care Diastolic heart failure Chest pain Lower extremity edema Atypical chest pain Cervical radiculopathy Pain of hand Diastolic CHF 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 Other Adopted Social History Smoking and tobacco/nicotine status: former use of tobacco/nicotine Quit status (tobacco/nicotine): has quit using Year quit tobacco: 2019 - 1-5 ciggs/day Alcohol intake: never Substance/Drug Use: never Lives independently: Yes Household members: none Housing: Apartment Current occupational status: disabled Do you think of yourself as: Straight/Heterosexual Current gender identity: Female Physical Exam 2 Const: COMMON NORMALS: no acute distress, patient oriented x3 and healthy appearing HENMT: COMMON NORMALS: normocephalic and atraumatic HEAD & SCALP: n ormocephalic and atraumatic Neck/C-Spine: COMMON NORMALS: full ROM and supple Chest: COMMONS NORMALS: normal inspection of the chest Resp: COMMON NORMALS: normal respiratory effort GI: COMMON NORMALS: Normal to inspection, nondistended, normoactive bowel sounds present, Soft to palpation, non-tender and no masses PALPATION: Yes Soft to palpation Back/Pelvis: OTHER: Slight dehiscence of her wound over right posterior hip no drainage no erythema Extremity: COMMON NORMALS: normal to inspection and full ROM Neuro: COMMON NORMALS: patient oriented x3, moves all extremities and no focal motor deficits Psych: COMMON NORMALS: mental status grossly normal, Normal thought process present and cooperative THOUGHT PROCESS: Normal thought process present Skin: COMMON NORMALS: no rashes or lesions noted and no wounds GENERAL SKIN EXAM: no rashes or lesions noted Course 2 Vital Signs: Vital signs: Vital Signs Temperature 98.0 F 12/21/23 14:47 Pulse Rate 90 12/21/23 14:47 Respiratory Rate 18 12/21/23 14:47 Blood Pressure 147/48 12/21/23 14:47 Pulse Oximetry 96 12/21/23 14:47 Oxygen Delivery Me thod Nasal Cannula 12/21/23 14:47 Oxygen Flow Rate 3 12/21/23 14:47 MDM - General Adult Medical Decision Making 57-year-old female presented here with pain at her site of her pain stimulator she has no signs of abscess cellulitis is very slight wound dehiscence her blood work here is normal her pains improved she is to follow-up with her surgeon return if worsening she understands agrees to plan Medical Records I reviewed the patient's medical records. Lab Data I reviewed the patient's lab results. 12/21/23 16:03 Laboratory Results WBC 5.85 10^3/uL (3.29-11.43) 12/21/23 16:03 RBC 4.33 10^6/uL (3.85-5.65) 12/21/23 16:03 Hgb 12.50 g/dL (11.27-16.99) 12/21/23 16:03 Hct 40.6 % (36-47) 12/21/23 16:03 MCV 93.8 fl (85-98) 12/21/23 16:03 MCH 28.9 pg (27-33) 12/21/23 16:03 MCHC 30.8 g/dL (30-55) 12/21/23 16:03 RDW 13.3 % (12.1-15.1) 12/21/23 16:03 Plt Count 238 10^3/cmm (157-399) 12/21/23 16:03 MPV 10.6 fL (7.4-10.4) H 12/21/23 16:03 Neut % (Auto) 44.9 % 12/21/23 16:03 Lymph % (Auto) 38.6 % 12/21/23 16:03 [place] % (Auto) 10.3 % 12/21/23 16:03 Eos % (Auto) 4.8 % 12/21/23 16:03 Baso % (Auto) 1.2 % 12/21/23 16:03 Neut # (Auto) 2.63 10^3/uL (1.8-7.7) 12/21/23 16:03 Lymph # (Auto) 2.3 10^3/uL (0.8-4.8) 12/21/23 16:03 [place] # (Auto) 0.6 10^3/uL (0.2-0.9) 12/21/23 16:03 Eos # (Auto) 0.3 10^3/uL (0.0-0.8) 12/21/23 16:03 Baso # (Auto) 0.1 10^3/uL (0.0-0.1) 12/21/23 16:03 Nucleated RBC % (auto) 0 % 12/21/23 16:03 Nucleated RBCs # 0.0 /100WBC 12/21/23 16:03 ESR 20 mm/hr (0-15) H 12/21/23 16:03 C-Reactive Protein 4.4 mg/L (0.0-4.9) 12/21/23 16:03 No radiology studies performed this visit Discharge Plan Discharge Patient Disposition: Home Clinical Impression: Post-op pain Condition: Stable Prescriptions: No Action levetiracetam 250 mg tablet 250 mg PO BID aspirin [Adult Aspirin Regimen] 81 mg tablet,delayed release (DR/EC) 81 mg PO QAM albuterol sulfate [ProAir HFA] 90 mcg/actuation HFA aerosol inhaler 2 puff INHALATION Q6H PRN (Reason: Shortness Of Breath) acetaminophen 500 mg capsule 500 mg PO Q6H PRN (Reason: Pain) metoprolol succinate [Toprol XL] 25 mg tablet extended release 24 hr 50 mg PO DAILY Qty: 180 2RF bumetanide 2 mg tablet See Rx Instructions .ROUTE .COMPLEX Qty: 90 0RF Dose Instruction: TAKE 1 TABLET BY MOUTH EVERY DAY Rx Instructions: TAKE 1 TABLET BY MOUTH EVERY DAY hydroxyzine HCl 10 mg Tablet 10 mg PO TID PRN (Reason: Anxiety) trazodone 50 mg tablet 100 mg PO BEDTIME duloxetine 60 mg capsule,delayed release(DR/EC) 60 mg PO QAM cetirizine 10 mg tablet 10 mg PO DAILY albuterol sulfate 2.5 mg /3 mL (0.083 %) solution for nebulization 2.5 mg inhalation QID PRN (Reason: SHORTNESS OF BREATH) levothyroxine 100 mcg tablet 100 mcg PO QAM gabapentin 300 mg capsule 300 mg PO TID diclofenac sodium 75 mg tablet,delayed release (DR/EC) 75 mg PO Q12H PRN (Reason: pain) Qty: 20 0RF ondansetron HCl 4 mg tablet 4 mg PO Q6H PRN (Reason: nausea and vomiting) Qty: 20 0RF sucralfate 1 gram tablet 1 g PO TID montelukast 10 mg tablet 10 mg PO DAILY pantoprazole [Protonix] 40 mg tablet,delayed release (DR/EC) 40 mg PO DAILY cholecalciferol (vitamin D3) [Vitamin D3] 25 mcg (1,000 unit) Tablet 25 mcg PO DAILY fluticasone propionate 50 mcg/actuation spray,suspension 1 spray INTRANASAL BID Gemtesa 75 mg tablet 75 mg PO DAILY potassium chloride 20 mEq tablet,ER particles/crystals 20 meq PO DAILY atorvastatin 20 mg tablet 40 mg PO BEDTIME Qty: 60 0RF spironolactone 25 mg tablet 25 mg PO BEDTIME phenazopyridine [Pyridium] 100 mg tablet 100 mg PO Q8H Qty: 7 0RF Discharge Orders: Discharge ED (Routine); Ordered 12/21/23 Ordered By: Tenisha Casey Referrals: Akila Rivera DO [Primary Care Provider] - 4-7 days Discharge Diet: Advance as tolerated Discharge Activity: Resume usual activity Patient Instructions: Post Operative Pain Coding Level of Care Code ED Director [employer] for [facility]
[2023-12-21 15:01] VITALS: BP 117/83; PULSE 73; O2SAT 98
[2023-12-21] MEDS: morphine 4 mg/mL SDV 1 mL IVP (15:12)
[2023-12-21 16:00] VITALS: BP 124/40; PULSE 65; O2SAT 98
[2023-12-21 16:23] LABS: Basophils # 0.1 10^3/uL (0.0-0.1); Basophils % 1.2 %; Eosinophils # 0.3 10^3/uL (0.0-0.8); Eosinophils % 4.8 %; Hematocrit 40.6 % (36-47); Lymphocytes # 2.3 10^3/uL (0.8-4.8); Lymphocytes % 38.6 %; Mean Corpuscular HGB Conc 30.8 g/dL (30-55); Mean Corpuscular Hemoglobin 28.9 pg (27-33); Mean Corpuscular Volume 93.8 fl (85-98); Mean Platelet Volume 10.6 fL (7.4-10.4); Monocytes # 0.6 10^3/uL (0.2-0.9); Monocytes % 10.3 %; Neutrophils # 2.63 10^3/uL (1.8-7.7); Neutrophils % 44.9 %; Nucleated Red Blood Cells % 0 %; Platelet Count 238 10^3/cmm (157-399); Red Blood Count 4.33 10^6/uL (3.85-5.65); Red Cell Distribution Width 13.3 % (12.1-15.1); White Blood Count 5.85 10^3/uL (3.29-11.43)
[2023-12-21 16:25] LABS: Erythrocyte Sedimentation Rate 20 mm/hr (0-15)
[2023-12-21 16:51] LABS: C Reactive Protein 4.4 mg/L (0.0-4.9)
[2023-12-21 18:00] VITALS: BP 129/77; PULSE 66; O2SAT 98
[2023-12-21 18:53] VITALS: BP 144/86; PULSE 62; O2SAT 100
[2023-12-21 20:41] VITALS: BP 154/93; PULSE 62; O2SAT 92
== END 2023-12-21 20:44 | disposition home or self-care (01) ==
PROVIDERS: Emergency Provider Emergency Medicine; PCP Family Medicine
DX: G89.18 Other acute postprocedural pain (principal); Z98.890 Other specified postprocedural states
CPT/HCPCS: 85025; 85651; 86140; 96374; 99284; J2270

== ENCOUNTER 2023-12-26 17:51 | Emergency (ER) | payer MEDICARE, MEDICAID, SELFPAY ==
[2023-07-19 09:23] VITALS: BP 132/64; BMI 36.8
[2023-12-26 17:56] VITALS: BP 151/82; PULSE 75; RESP 16; TEMP 36.8; O2SAT 94; BMI 36.8
--- NOTE | 2023-12-26 18:20 | ED_ITS ---
HPI - Wound/Laceration 2 General: Chief Complaint: Wound/Laceration Stated Complaint: Gen Weakness Time Seen by Provider: 12/26/23 18:06 Source: patient Mode of arrival: EMS Limitations: no limitations History of Present Illness: Patient is a 58-year-old female with history of recent spinal stimulator placement on 12/07 who presents emergency department ambulance for the second time this week for evaluation of her incision site. She thinks her Steri-Strips are coming and going and she is having drainage from the site. Also is reporting increased pain. No neurological deficits are reported, no fevers, no recent illness, no other symptoms at this time. Onset (ago): day(s) Location: back (Right lower) Associated symptoms: Denies chills, fever(s), nausea or vomiting Related Data Home Medications Medication Instructions Recorded Confirmed aspirin 81 mg tablet,delayed 81 mg PO QAM 02/15/19 12/21/23 release (Adult Aspirin Regimen) levetiracetam 250 mg tablet 250 mg PO BID 02/15/19 12/21/23 duloxetine 60 mg capsule,delayed 60 mg PO QAM 04/05/21 12/21/23 release trazodone 50 mg tablet 100 mg PO BEDTIME 04/05/21 12/21/23 montelukast 10 mg tablet 10 mg PO DAILY 03/15/23 12/21/23 sucralfate 1 gram tablet 1 g PO TID 03/15/23 12/21/23 albuterol sulfate 2.5 mg/3 mL 2.5 mg inhalation QID PRN 03/17/23 12/21/23 (0.083 %) solution for nebulization SHORTNESS OF BREATH fluticasone propionate 50 1 spray intranasal BID 06/09/23 12/21/23 mcg/actuation nasal spray,suspension potassium chloride 20 mEq 20 meq PO DAILY 06/09/23 12/21/23 tablet,extended release(part/cryst) vibegron 75 mg tablet (Gemtesa) 75 mg PO DAILY 06/09/23 12/21/23 spironolactone 25 mg tablet 25 mg PO BEDTIME 06/22/23 12/21/23 gabapentin 300 mg capsule 300 mg PO TID 08/07/23 12/21/23 levothyroxine 100 mcg tablet 100 mcg PO QAM 08/07/23 12/21/23 Previous Rx's Medication Instructions Recorded atorvastatin 20 mg tablet 40 mg (2 x 20 mg) PO BEDTIME #60 06/10/23 tabs metoprolol succinate 25 mg 50 mg (2 x 25 mg) PO DAILY #180 09/18/23 tablet,extended release 24 hr tabs (Toprol XL) bumetanide 2 mg tablet See Rx Instructions .Route 09/19/23 .COMPLEX #90 tabs phenazopyridine 100 mg tablet 100 mg PO Q8H 6 doses #7 tabs 11/11/23 (Pyridium) Allergies Allergy/AdvReac Type Severity Reaction Status Date / Time chlorpromazine Allergy Unknown ALGY-Rash Verified 09/02/23 20:16 diphenhydramine Allergy Unknown Unknown Verified 09/02/23 20:16 Iodinated Contrast Media Allergy Unknown ALGY-Hives Verified 09/02/23 20:16 tramadol Allergy Unknown Verified 09/02/23 20:16 amoxicillin AdvReac Unknown ADR-Nausea Verified 09/02/23 20:16 codeine AdvReac Unknown ADR-Vomitin Verified 09/02/23 20:16 g Penicillins AdvReac Unknown ADR-Vomitin Verified 09/02/23 20:16 g Review of Systems 2 General: Reports: 10 or more systems reviewed and unremarkable except in HPI and below Const: Denies: fever(s) or chills Card: Denies: chest pain Resp: Denies: dyspnea GI: Denies: abdominal pain, nausea, vomiting or diarrhea Musc: Reports: back pain; Denies: extremity pain or joint pain Skin/Breast: Reports: lesions (Incision site for spinal stimulator right lower back); Denies: rash, skin pain, skin tenderness or new lesions Neuro: Denies: headache(s) PFSH ED 2 PFSH: Medical History Major depressive disorder, single episode, severe without psychotic features Sleep apnea Psychiatric care Diastolic heart failure Chest pain Lower extremity edema Atypical chest pain Cervical radiculopathy Pain of hand Diastolic CHF 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 Other Adopted Social History Smoking and tobacco/nicotine status: former use of tobacco/nicotine Quit status (tobacco/nicotine): has quit using Year quit tobacco: 2019 - 1-5 ciggs/day Alcohol intake: never Substance/Drug Use: never Lives independently: Yes Household members: none Housing: Apartment Current occupational status: disabled Do you think of yourself as: Straight/Heterosexual Current gender identity: Female Physical Exam 2 Const: COMMON NORMALS: no acute distress, patient oriented x3, no limitations, healthy appearing, alert and well nourished HENMT: COMMON NORMALS: normocephalic and atraumatic HEAD & SCALP: n ormocephalic and atraumatic Neck/C-Spine: COMMON NORMALS: full ROM, no lymphadenopathy, supple and no meningeal signs Resp: COMMON NORMALS: normal respiratory effort, No use of accessory muscles and clear to auscultation bilaterally AUSCULTATION: clear to auscultation bilaterally Cardio: COMMON NORMALS: regular rate and regular rhythm RATE: regular rate RHYTHM: regular rhythm Extremity: COMMON NORMALS: full ROM and capillary refill normal NARRATIVE EXTREMITY EXAM: Mild tenderness to palpation of the right lower back surrounding the incision site Neuro: COMMON NORMALS: patient oriented x3 SENSORIUM/ORIENTATION: Yes alert MENINGEAL SIGNS: Yes no meningeal signs Skin: COMMON NORMALS: turgor normal NARRATIVE SKIN EXAM: The incision site to right lower back does not appear to be actively draining any purulent fluid, and overall appears well-healing GENERAL SKIN EXAM: turgor normal Course 2 Vital Signs: Vital signs: Vital Signs Temperature 98.2 F 12/26/23 17:56 Pulse Rate 75 12/26/23 17:56 Respiratory Rate 16 12/26/23 17:56 Blood Pressure 151/82 12/26/23 17:56 Pulse Oximetry 94 12/26/23 17:56 Oxygen Delivery Me thod Room Air 12/26/23 17:56 MDM - Wound/Laceration Medical Decision Making Patient was seen for the same complaint about a week ago, had spinal stimulator placed earlier this month. Exam showed well-healing incision site, no purulent drainage or significant surrounding erythema. Lab work today completely unchanged from prior, essentially we will redress the wound and have patient follow-up with her initial surgeon as she has had multiple complaints of the pain and I believe would benefit from being reevaluated. Vitals have been stable, was given 1 [place] here for pain. Lab Data 12/26/23 18:31 Laboratory Results WBC 8.25 10^3/uL (3.29-11.43) 12/26/23 18: RBC 4.32 10^6/uL (3.85-5.65) 12/26/23 18:31 Hgb 12.40 g/dL (11.27-16.99) 12/26/23 18: Hct 40.2 % (36-47) 12/26/23 18:31 MCV 93.1 fl (85-98) 12/26/23 18:31 MCH 28.7 pg (27-33) 12/26/23 18:31 MCHC 30.8 g/dL (30-55) 12/26/23 18:31 RDW 13.3 % (12.1-15.1) 12/26/23 18:31 Plt Count 290 10^3/cmm (157-399) 12/26/23 18:31 MPV 9.9 fL (7.4-10.4) 12/26/23 18:31 Neut % (Auto) 59.1 % 12/26/23 18:31 Lymph % (Auto) 27.6 % 12/26/23 18:31 [place] % (Auto) 9.0 % 12/26/23 18:31 Eos % (Auto) 3.4 % 12/26/23 18:31 Baso % (Auto) 0.7 % 12/26/23 18:31 Neut # (Auto) 4.87 10^3/uL (1.8-7.7) 12/26/23 18: Lymph # (Auto) 2.3 10^3/uL (0.8-4.8) 12/26/23 18:31 [place] # (Auto) 0.7 10^3/uL (0.2-0.9) 12/26/23 18:31 Eos # (Auto) 0.3 10^3/uL (0.0-0.8) 12/26/23 18:31 Baso # (Auto) 0.1 10^3/uL (0.0-0.1) 12/26/23 18:31 Nucleated RBC % (auto) 0 % 12/26/23 18:31 Nucleated RBCs # 0.0 /100WBC 12/26/23 18:31 ESR 9 mm/hr (0-15) 12/26/23 18:31 C-Reactive Protein 3.0 mg/L (0.0-4.9) 12/26/23 18:31 No radiology studies performed this visit Discharge Plan Discharge Patient Disposition: Home Clinical Impression: Post-op pain Condition: Stable Prescriptions: No Action levetiracetam 250 mg tablet 250 mg PO BID aspirin [Adult Aspirin Regimen] 81 mg tablet,delayed release (DR/EC) 81 mg PO QAM metoprolol succinate [Toprol XL] 25 mg tablet extended release 24 hr 50 mg PO DAILY Qty: 180 2RF bumetanide 2 mg tablet See Rx Instructions .ROUTE .COMPLEX Qty: 90 0RF Dose Instruction: TAKE 1 TABLET BY MOUTH EVERY DAY Rx Instructions: TAKE 1 TABLET BY MOUTH EVERY DAY trazodone 50 mg tablet 100 mg PO BEDTIME duloxetine 60 mg capsule,delayed release(DR/EC) 60 mg PO QAM albuterol sulfate 2.5 mg /3 mL (0.083 %) solution for nebulization 2.5 mg inhalation QID PRN (Reason: SHORTNESS OF BREATH) levothyroxine 100 mcg tablet 100 mcg PO QAM gabapentin 300 mg capsule 300 mg PO TID sucralfate 1 gram tablet 1 g PO TID montelukast 10 mg tablet 10 mg PO DAILY fluticasone propionate 50 mcg/actuation spray,suspension 1 spray INTRANASAL BID Gemtesa 75 mg tablet 75 mg PO DAILY potassium chloride 20 mEq tablet,ER particles/crystals 20 meq PO DAILY atorvastatin 20 mg tablet 40 mg PO BEDTIME Qty: 60 0RF spironolactone 25 mg tablet 25 mg PO BEDTIME phenazopyridine [Pyridium] 100 mg tablet 100 mg PO Q8H Qty: 7 0RF Discharge Orders: Discharge ED (Routine); Ordered 12/26/23 Ordered By: Calvin Ryan Referrals: Akila Rivera DO [Primary Care Provider] - Patient Instructions: Pain Management Activity Restrictions/Additional Instructions: Follow-up with your surgeon for general reevaluation and for any further complaints you may have. Keep wound dressed appropriately, do return if you start having fevers, significant nausea or vomiting, or other systemic signs of illness. Coding Level of Care Code ED Manager Internal for Dc Serrato
[2023-12-26] MEDS: HYDROcodone-acetaminophen 5-325 mg Tablet 1 TAB PO (18:26)
[2023-12-26 18:41] LABS: Basophils # 0.1 10^3/uL (0.0-0.1); Basophils % 0.7 %; Eosinophils # 0.3 10^3/uL (0.0-0.8); Eosinophils % 3.4 %; Hematocrit 40.2 % (36-47); Lymphocytes # 2.3 10^3/uL (0.8-4.8); Lymphocytes % 27.6 %; Mean Corpuscular HGB Conc 30.8 g/dL (30-55); Mean Corpuscular Hemoglobin 28.7 pg (27-33); Mean Corpuscular Volume 93.1 fl (85-98); Mean Platelet Volume 9.9 fL (7.4-10.4); Monocytes # 0.7 10^3/uL (0.2-0.9); Neutrophils # 4.87 10^3/uL (1.8-7.7); Neutrophils % 59.1 %; Nucleated Red Blood Cells % 0 %; Platelet Count 290 10^3/cmm (157-399); Red Blood Count 4.32 10^6/uL (3.85-5.65); Red Cell Distribution Width 13.3 % (12.1-15.1); White Blood Count 8.25 10^3/uL (3.29-11.43)
[2023-12-26 18:47] LABS: Erythrocyte Sedimentation Rate 9 mm/hr (0-15)
[2023-12-26 19:19] VITALS: BP 141/78; PULSE 68; O2SAT 90
== END 2023-12-26 19:21 | disposition home or self-care (01) ==
PROVIDERS: Emergency Provider Physician Assistant; PCP Family Medicine
DX: G89.18 Other acute postprocedural pain (principal); I11.0 Hypertensive heart disease with heart failure; I50.30 Unspecified diastolic (congestive) heart failure; J44.9 Chronic obstructive pulmonary disease, unspecified; Z87.891 Personal history of nicotine dependence; Z79.82 Long term (current) use of aspirin
CPT/HCPCS: 36415; 85025; 85651; 86140; 99283

== ENCOUNTER 2024-01-19 13:03 | Emergency (ER) | payer MEDICARE, MEDICAID, SELFPAY ==
[2023-07-19 09:23] VITALS: BP 132/64; BMI 36.8
[2024-01-19 13:04] VITALS: BP 132/62; PULSE 61; RESP 17; TEMP 36.9; O2SAT 96; BMI 46.8
--- NOTE | 2024-01-19 13:08 | XR_ITS ---
WS: [id number] Exam: XR chest 1V portable [id number] Date/Time of Exam: 01/19/2024 1:09 PM Reason For Exam: cp Comparison 08/07/2023. Lungs are fully inflated and clear. Normal cardiomediastinal silhouette. No pleural effusion. Normal bony structures. XR/XR chest 1V portable [id number] IMPRESSION: 1. No acute cardiopulmonary finding.
--- NOTE | 2024-01-19 13:12 | ECG_ITS ---
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 Measurements Intervals [place] Rate: 52 P: 75 AL: 134 QRS: 59 QRSD: 106 T: 63 QT: 445 QTc: 416 Interpretive Statements SINUS BRADYCARDIA Compared to ECG 08/07/2023 13:03:27 Sinus rhythm no longer present Electronically Signed On 01-19-2024 21:56:36 MANAGER WIND by Joseph Wilson M.D. [email or web address]
[2024-01-19 13:23] VITALS: BP 132/62; PULSE 67; RESP 12; O2SAT 100
--- NOTE | 2024-01-19 13:26 | ED_ITS ---
HPI - SOB/Dyspnea 2 General: Chief Complaint: Shortness of Breath/Dyspnea Stated Complaint: sob, cough Time Seen by Provider: 01/19/24 13:04 Source: patient and EMS Mode of arrival: EMS Limitations: no limitations History of Present Illness: HPI Narrative: 58-year-old female states that over the last few days she has been having increasing nonproductive cough states she has had some dyspnea on that sharp pain when she coughs. Patient is able speak in full senses here she wears 3 L at baseline at home is on her 3 L here with normal saturations. Denies any fever denies any vomiting Associated symptoms: Reports chest pain; Deny abdominal pain, fever(s), nausea or vomiting Related Data Home Medications Medication Instructions Recorded Confirmed aspirin 81 mg tablet,delayed 81 mg PO QAM 02/15/19 01/19/24 release (Adult Aspirin Regimen) levetiracetam 250 mg tablet 250 mg PO BID 02/15/19 01/19/24 duloxetine 60 mg capsule,delayed 60 mg PO QAM 04/05/21 01/19/24 release trazodone 50 mg tablet 100 mg PO BEDTIME 04/05/21 01/19/24 montelukast 10 mg tablet 10 mg PO DAILY 03/15/23 01/19/24 sucralfate 1 gram tablet 1 g PO TID 03/15/23 01/19/24 albuterol sulfate 2.5 mg/3 mL 2.5 mg inhalation QID PRN 03/17/23 01/19/24 (0.083 %) solution for nebulization SHORTNESS OF BREATH fluticasone propionate 50 1 spray intranasal BID 06/09/23 01/19/24 mcg/actuation nasal spray,suspension potassium chloride 20 mEq 20 meq PO DAILY 06/09/23 01/19/24 tablet,extended release(part/cryst) vibegron 75 mg tablet (Gemtesa) 75 mg PO DAILY 06/09/23 01/19/24 spironolactone 25 mg tablet 25 mg PO BEDTIME 06/22/23 01/19/24 gabapentin 300 mg capsule 300 mg PO TID 08/07/23 01/19/24 levothyroxine 100 mcg tablet 100 mcg PO QAM 08/07/23 01/19/24 albuterol sulfate 90 mcg/actuation 2 puff inhalation Q6H PRN 01/19/24 01/19/24 aerosol inhaler Shortness Of Breath Or Wheezing Previous Rx's Medication Instructions Recorded atorvastatin 20 mg tablet 40 mg (2 x 20 mg) PO BEDTIME #60 06/10/23 tabs metoprolol succinate 25 mg 50 mg (2 x 25 mg) PO DAILY #180 09/18/23 tablet,extended release 24 hr tabs (Toprol XL) Allergies Allergy/AdvReac Type Severity Reaction Status Date / Time chlorpromazine Allergy Unknown ALGY-Rash Verified 09/02/23 20:16 diphenhydramine Allergy Unknown Unknown Verified 09/02/23 20:16 Iodinated Contrast Media Allergy Unknown ALGY-Hives Verified 09/02/23 20:16 tramadol Allergy Unknown Verified 09/02/23 20:16 amoxicillin AdvReac Unknown ADR-Nausea Verified 09/02/23 20:16 codeine AdvReac Unknown ADR-Vomitin Verified 09/02/23 20:16 g Penicillins AdvReac Unknown ADR-Vomitin Verified 09/02/23 20:16 g Review of Systems 2 Const: Denies: fever(s), chills, body aches or change in appetite ENMT: Denies: throat pain or dental pain Card: Reports: chest pain Resp: Reports: dyspnea GI: Denies: abdominal pain, nausea, vomiting or diarrhea Musc: Denies: neck pain or back pain Skin/Breast: Denies: rash Neuro: Denies: headache(s) PFSH ED 2 PFSH: Medical History Major depressive disorder, single episode, severe without psychotic features Sleep apnea Psychiatric care Diastolic heart failure Chest pain Lower extremity edema Atypical chest pain Cervical radiculopathy Pain of hand Diastolic CHF 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 Other Adopted Social History Smoking and tobacco/nicotine status: former use of tobacco/nicotine Quit status (tobacco/nicotine): has quit using Year quit tobacco: 2019 - 1-5 ciggs/day Alcohol intake: never Substance/Drug Use: never Lives independently: Yes Household members: none Housing: Apartment Current occupational status: disabled Do you think of yourself as: Straight/Heterosexual Current gender identity: Female Physical Exam 2 Const: COMMON NORMALS: no acute distress, patient oriented x3 and healthy appearing HENMT: COMMON NORMALS: normocephalic and atraumatic HEAD & SCALP: n ormocephalic and atraumatic Neck/C-Spine: COMMON NORMALS: full ROM and supple Chest: COMMONS NORMALS: normal inspection of the chest Resp: COMMON NORMALS: normal respiratory effort, No retractions, No use of accessory muscles and clear to auscultation bilaterally AUSCULTATION: clear to auscultation bilaterally Cardio: COMMON NORMALS: regular rate, regular rhythm and No murmurs present (Cardio) RATE: regular rate RHYTHM: regular rhythm GI: COMMON NORMALS: Normal to inspection, nondistended, normoactive bowel sounds present, Soft to palpation, non-tender and no masses PALPATION: Yes Soft to palpation Extremity: COMMON NORMALS: normal to inspection and full ROM Neuro: COMMON NORMALS: patient oriented x3, moves all extremities and no focal motor deficits Psych: COMMON NORMALS: mental status grossly normal, Normal thought process present and cooperative THOUGHT PROCESS: Normal thought process present Skin: COMMON NORMALS: no rashes or lesions noted and no wounds GENERAL SKIN EXAM: no rashes or lesions noted Course 2 Vital Signs: Vital signs: Vital Signs Temperature 98.4 F 01/19/24 13:04 Pulse Rate 60 01/19/24 14:13 Respiratory Rate 20 H 01/19/24 14:13 Blood Pressure 132/49 01/19/24 14:13 Pulse Oximetry 99 01/19/24 14:13 Oxygen Delivery Me thod Nasal Cannula 01/19/24 14:13 Oxygen Flow Rate 3 01/19/24 14:13 MDM - SOB/Dyspnea Medical Decision Making Patient presents here with shortness of breath likely URI x-ray blood work here is normal she stable for discharge follow-up PCP return if worsening. Medical Records I reviewed the patient's medical records. Lab Data I reviewed the patient's lab results. 01/19/24 14:06 01/19/24 14:06 Labs/Radiology: Radiology Impressions Chest X-Ray 01/19/24 13:08 IMPRESSION: 1. No acute cardiopulmonary finding. Laboratory Results WBC 5.81 10^3/uL (3.29-11.43) 01/19/24 14:06 RBC 4.00 10^6/uL (3.85-5.65) 01/19/24 14:06 Hgb 11.50 g/dL (11.27-16.99) 01/19/24 14:06 Hct 37.9 % (36-47) 01/19/24 14:06 MCV 94.8 fl (85-98) 01/19/24 14:06 MCH 28.8 pg (27-33) 01/19/24 14:06 MCHC 30.3 g/dL (30-55) 01/19/24 14:06 RDW 13.3 % (12.1-15.1) 01/19/24 14:06 Plt Count 230 10^3/cmm (157-399) 01/19/24 14:06 MPV 9.5 fL (7.4-10.4) 01/19/24 14:06 Neut % (Auto) 44.9 % 01/19/24 14:06 Lymph % (Auto) 40.3 % 01/19/24 14:06 [place] % (Auto) 9.1 % 01/19/24 14:06 Eos % (Auto) 4.5 % 01/19/24 14:06 Baso % (Auto) 1.0 % 01/19/24 14:06 Neut # (Auto) 2.61 10^3/uL (1.8-7.7) 01/19/24 14:06 Lymph # (Auto) 2.3 10^3/uL (0.8-4.8) 01/19/24 14:06 [place] # (Auto) 0.5 10^3/uL (0.2-0.9) 01/19/24 14:06 Eos # (Auto) 0.3 10^3/uL (0.0-0.8) 01/19/24 14:06 Baso # (Auto) 0.1 10^3/uL (0.0-0.1) 01/19/24 14:06 Nucleated RBC % (auto) 0 % 01/19/24 14:06 Nucleated RBCs # 0.0 /100WBC 01/19/24 14:06 PT 13.40 SECONDS (12.1-14.9) 01/19/24 14:06 INR 0.99 (0.8-1.2) 01/19/24 14:06 Sodium 139 mmol/L (136-145) 01/19/24 14:06 Potassium 4.2 mmol/L (3.5-5.1) 01/19/24 14:06 Chloride 97 mmol/L (98-107) L 01/19/24 14:06 Carbon Dioxide 34 mmol/L (22-29) H 01/19/24 14:06 Anion Gap 12.2 (5-19) 01/19/24 14:06 BUN 12 mg/dL (6-20) 01/19/24 14:06 Creatinine 0.9 mg/dL (0.5-0.9) 01/19/24 14:06 GFR Calculation 64.1 mL/min (90-130) L 01/19/24 14:06 Glucose 90 mg/dL (65-115) 01/19/24 14:06 Calculated Osmolality 287 mOsm/kg (285-295) 01/19/24 14:06 Calcium 8.7 mg/dL (8.5-10.5) 01/19/24 14:06 Total Bilirubin 1.1 mg/dL (0.15-1.2) 01/19/24 14:06 AST 16 U/L (0-32) 01/19/24 14:06 ALT 10 U/L (0-33) 01/19/24 14:06 Alkaline Phosphatase 108 U/L (35-105) H 01/19/24 14:06 Troponin T Baseline 17 ng/L (0-10) H 01/19/24 14:06 Total Protein 6.2 g/dL (6.6-8.7) L 01/19/24 14:06 Albumin 3.8 g/dL (3.5-5.2) 01/19/24 14:06 Globulin 2.4 g/dL (1.3-4.6) 01/19/24 14:06 Coronavirus (PCR) Negative (Negative) 01/19/24 13:54 Influenza A (PCR) Negative (Negative) 01/19/24 13:54 Influenza Type B (PCR) Negative (Negative) 01/19/24 13:54 RSV (PCR) Negative (Negative) 01/19/24 13:54 All radiology interpretation(s) finalized by discharge EKG Data EKG 1: I personally reviewed and interpreted this EKG as follows: EKG Interpretation Date: 01/19/24 EKG interpretation time: 13:12 Interpretation: sinus john paul hr [address] elevation qrs 106 qtc 425 Discharge Plan Discharge Patient Disposition: Home Clinical Impression: Acute dyspnea Condition: Stable Prescriptions: No Action levetiracetam 250 mg tablet 250 mg PO BID aspirin [Adult Aspirin Regimen] 81 mg tablet,delayed release (DR/EC) 81 mg PO QAM metoprolol succinate [Toprol XL] 25 mg tablet extended release 24 hr 50 mg PO DAILY Qty: 180 2RF trazodone 50 mg tablet 100 mg PO BEDTIME duloxetine 60 mg capsule,delayed release(DR/EC) 60 mg PO QAM albuterol sulfate 2.5 mg /3 mL (0.083 %) solution for nebulization 2.5 mg inhalation QID PRN (Reason: SHORTNESS OF BREATH) levothyroxine 100 mcg tablet 100 mcg PO QAM gabapentin 300 mg capsule 300 mg PO TID albuterol sulfate 90 mcg/actuation HFA aerosol inhaler 2 puff INHALATION Q6H PRN (Reason: Shortness Of Breath Or Wheezing) sucralfate 1 gram tablet 1 g PO TID montelukast 10 mg tablet 10 mg PO DAILY fluticasone propionate 50 mcg/actuation spray,suspension 1 spray INTRANASAL BID Gemtesa 75 mg tablet 75 mg PO DAILY potassium chloride 20 mEq tablet,ER particles/crystals 20 meq PO DAILY atorvastatin 20 mg tablet 40 mg PO BEDTIME Qty: 60 0RF spironolactone 25 mg tablet 25 mg PO BEDTIME Discharge Orders: Discharge ED (Routine); Ordered 01/19/24 Ordered By: Tenisha Casey Referrals: Akila Rivera DO [Primary Care Provider] - Discharge Diet: Advance as tolerated Discharge Activity: Resume usual activity Patient Instructions: Dyspnea (ED) Coding Level of Care Code ED Web Development Intern for Dc Serrato
[2024-01-19 13:50] VITALS: BP 132/49; PULSE 59; RESP 20; O2SAT 100
[2024-01-19 14:12] LABS: Basophils # 0.1 10^3/uL (0.0-0.1); Eosinophils # 0.3 10^3/uL (0.0-0.8); Eosinophils % 4.5 %; Hematocrit 37.9 % (36-47); Lymphocytes # 2.3 10^3/uL (0.8-4.8); Lymphocytes % 40.3 %; Mean Corpuscular HGB Conc 30.3 g/dL (30-55); Mean Corpuscular Hemoglobin 28.8 pg (27-33); Mean Corpuscular Volume 94.8 fl (85-98); Mean Platelet Volume 9.5 fL (7.4-10.4); Monocytes # 0.5 10^3/uL (0.2-0.9); Monocytes % 9.1 %; Neutrophils # 2.61 10^3/uL (1.8-7.7); Neutrophils % 44.9 %; Nucleated Red Blood Cells % 0 %; Platelet Count 230 10^3/cmm (157-399); Red Cell Distribution Width 13.3 % (12.1-15.1); White Blood Count 5.81 10^3/uL (3.29-11.43)
[2024-01-19 14:13] VITALS: BP 132/49; PULSE 60; RESP 20; O2SAT 99
[2024-01-19 14:31] LABS: INR 0.99 (0.8-1.2)
[2024-01-19 14:36] LABS: Covid PCR NEGATIVE (Negative); Influenza A NEGATIVE (Negative); Influenza B NEGATIVE (Negative); Respiratory Syncytial Virus Ce NEGATIVE (Negative)
[2024-01-19 14:37] LABS: Alanine Aminotransferase 10 U/L (0-33); Albumin Level 3.8 g/dL (3.5-5.2); Alkaline Phosphatase 108 U/L (35-105); Anion Gap 12.2 (5-19); Aspartate Amino Transferase 16 U/L (0-32); Blood Urea Nitrogen 12 mg/dL (6-20); Calcium 8.7 mg/dL (8.5-10.5); Carbon Dioxide 34 mmol/L (22-29); Chloride 97 mmol/L (98-107); Creatinine Clr Calc Pharmacy 75.2726; Globulin 2.4 g/dL (1.3-4.6); Glomerular Filtration Rate 64.1 mL/min (90-130); Glucose 90 mg/dL (65-115); Osmolality Calculated 287 mOsm/kg (285-295); Potassium 4.2 mmol/L (3.5-5.1); Sodium 139 mmol/L (136-145); Total Bilirubin 1.1 mg/dL (0.15-1.2); Total Protein 6.2 g/dL (6.6-8.7)
[2024-01-19 14:38] LABS: Troponin(5th) Baseline 17 ng/L (0-10)
[2024-01-19 14:57] VITALS: BP 127/63; PULSE 61; RESP 20; O2SAT 97
== END 2024-01-19 15:00 | disposition home or self-care (01) ==
PROVIDERS: Emergency Provider Emergency Medicine; PCP Family Medicine
DX: R06.00 Dyspnea, unspecified (principal); Z79.82 Long term (current) use of aspirin; Z11.52 Encounter for screening for COVID-19; Z87.891 Personal history of nicotine dependence; I11.0 Hypertensive heart disease with heart failure; I50.30 Unspecified diastolic (congestive) heart failure
CPT/HCPCS: 0241U; 71045; 80053; 84484; 85025; 85610; 93005; 99285

== ENCOUNTER 2024-02-08 18:25 | Emergency (ER) | payer OTHER, MEDICAID, SELFPAY ==
[2023-07-19 09:23] VITALS: BP 132/64; BMI 36.8
[2024-02-08 18:48] VITALS: BP 136/81; PULSE 62; RESP 18; TEMP 36.7; O2SAT 94; BMI 37.0
--- NOTE | 2024-02-08 20:01 | ECG_ITS ---
[facility] Date[facility] 2024-02-08 Pat Name: Crystal Pierre Department: Room: Gender: Female Laboratory Secretary: : 1965 Requested By: Teena Garcia Order Number: [id number] Khanna MD: Funmilayo De La Rosa M.D. Measurements Intervals [place] Rate: 61 P: 67 [place]: 138 QRS: 45 QRSD: 109 T: 52 QT: 436 QTc: 442 Interpretive Statements SINUS RHYTHM POSSIBLE LATERAL MYOCARDIAL INFARCTION , PROBABLY OLD [30 ms Q WAVE IN I/aVL/V5/V6] Compared to ECG 01/19/2024 13:12:31 Myocardial infarct finding now present Sinus bradycardia no longer present Electronically Signed On 02-09-2024 21:35:23 PODIATRIC MEDICINE DOCTOR by Funmilayo De La Rosa M.D. [id number]
[2024-02-08 20:42] LABS: Basophils # 0.1 10^3/uL (0.0-0.1); Eosinophils # 0.3 10^3/uL (0.0-0.8); Eosinophils % 3.1 %; Lymphocytes # 3.9 10^3/uL (0.8-4.8); Lymphocytes % 41.1 %; Mean Corpuscular HGB Conc 30.7 g/dL (30-55); Mean Corpuscular Hemoglobin 29.2 pg (27-33); Mean Corpuscular Volume 95.1 fl (85-98); Mean Platelet Volume 9.8 fL (7.4-10.4); Monocytes # 0.8 10^3/uL (0.2-0.9); Neutrophils # 4.41 10^3/uL (1.8-7.7); Neutrophils % 46.6 %; Nucleated Red Blood Cells % 0 %; Platelet Count 261 10^3/cmm (157-399); Red Blood Count 4.31 10^6/uL (3.85-5.65); Red Cell Distribution Width 13.4 % (12.1-15.1); White Blood Count 9.45 10^3/uL (3.29-11.43)
[2024-02-08 21:01] LABS: Troponin(5th) Baseline 13 ng/L (0-10)
[2024-02-08 21:04] LABS: Blood Urea Nitrogen 13 mg/dL (6-20); Calcium 8.9 mg/dL (8.5-10.5); Carbon Dioxide 33 mmol/L (22-29); Chloride 97 mmol/L (98-107); Creatinine Clr Calc Pharmacy 76.4621; Glomerular Filtration Rate 56.7 mL/min (90-130); Glucose 99 mg/dL (65-115); Osmolality Calculated 292 mOsm/kg (285-295); Sodium 141 mmol/L (136-145)
--- NOTE | 2024-02-08 22:01 | ECG_ITS ---
[facility] Date: 2024-02-08 Pat Name: Crystal Pierre Department: Room: Gender: Female Marketing Underwriter: : 1965 Requested By: Teena Garcia Order Number: [id number] Khanna MD: Funmilayo De La Rosa M.D. Measurements Intervals [place] Rate: 55 P: 57 LA: 142 QRS: 29 QRSD: 109 T: 32 QT: 454 QTc: 438 Interpretive Statements SINUS BRADYCARDIA Compared to ECG 02/08/2024 18:53:57 Sinus rhythm no longer present Myocardial infarct finding no longer present Electronically Signed On 02-09-2024 21:56:08 ADOBE MAKER by Funmilayo De La Rosa M.D. [id number]
--- NOTE | 2024-02-08 22:14 | ED_ITS ---
HPI - Chest Pain 2 General: Chief Complaint: Chest Pain Stated Complaint: chest pain Time Seen by Provider: 02/08/24 21:43 History of Present Illness: Patient is a 58-year-old female that presents to the emergency department with complaints of chest discomfort, shortness of breath, chills, productive cough. Onset of symptoms 2 days ago. Last seen her primary care doctor she reports she had chest pain and she was transported via EMS for further evaluation. Patient reports she has got right lower extremity radiculopathy from lumbar back pain and she has got bilateral lower extremity edema that is chronic in nature. She denies any change to her symptoms in her lower extremities. Medical history includes hyperlipidemia, hypertension, heart failure, cardiovascular disease, hypothyroidism, SVT, aortic regurgitation, COPD, GERD, seizures, psychiatric disorder. Associated symptoms: Reports dyspnea; Deny abdominal pain, fever(s), nausea or vomiting Related Data Home Medications Medication Instructions Recorded Confirmed aspirin 81 mg tablet,delayed 81 mg PO QAM 02/15/19 01/19/24 release (Adult Aspirin Regimen) levetiracetam 250 mg tablet 250 mg PO BID 02/15/19 01/19/24 duloxetine 60 mg capsule,delayed 60 mg PO QAM 04/05/21 01/19/24 release trazodone 50 mg tablet 100 mg PO BEDTIME 04/05/21 01/19/24 montelukast 10 mg tablet 10 mg PO DAILY 03/15/23 01/19/24 sucralfate 1 gram tablet 1 g PO TID 03/15/23 01/19/24 albuterol sulfate 2.5 mg/3 mL 2.5 mg inhalation QID PRN 03/17/23 01/19/24 (0.083 %) solution for nebulization SHORTNESS OF BREATH fluticasone propionate 50 1 spray intranasal BID 06/09/23 01/19/24 mcg/actuation nasal spray,suspension potassium chloride 20 mEq 20 meq PO DAILY 06/09/23 01/19/24 tablet,extended release(part/cryst) vibegron 75 mg tablet (Gemtesa) 75 mg PO DAILY 06/09/23 01/19/24 spironolactone 25 mg tablet 25 mg PO BEDTIME 06/22/23 01/19/24 gabapentin 300 mg capsule 300 mg PO TID 08/07/23 01/19/24 levothyroxine 100 mcg tablet 100 mcg PO QAM 08/07/23 01/19/24 albuterol sulfate 90 mcg/actuation 2 puff inhalation Q6H PRN 01/19/24 01/19/24 aerosol inhaler Shortness Of Breath Or Wheezing Previous Rx's Medication Instructions Recorded atorvastatin 20 mg tablet 40 mg (2 x 20 mg) PO BEDTIME #60 06/10/23 tabs metoprolol succinate 25 mg 50 mg (2 x 25 mg) PO DAILY #180 09/18/23 tablet,extended release 24 hr tabs (Toprol XL) azithromycin 250 mg tablet 250 mg PO DAILY 4 days #4 tabs 02/09/24 cefuroxime axetil 500 mg tablet 500 mg PO BID 5 days #10 tabs 02/09/24 Allergies Allergy/AdvReac Type Severity Reaction Status Date / Time chlorpromazine Allergy Unknown ALGY-Rash Verified 09/02/23 20:16 diphenhydramine Allergy Unknown Unknown Verified 09/02/23 20:16 Iodinated Contrast Media Allergy Unknown ALGY-Hives Verified 09/02/23 20:16 tramadol Allergy Unknown Verified 09/02/23 20:16 amoxicillin AdvReac Unknown ADR-Nausea Verified 09/02/23 20:16 codeine AdvReac Unknown ADR-Vomitin Verified 09/02/23 20:16 g Penicillins AdvReac Unknown ADR-Vomitin Verified 09/02/23 20:16 g Review of Systems 2 Const: Reports: chills, body aches and fatigue; Denies: fever(s) or change in appetite ENMT: Denies: throat pain or dental pain Card: Reports: chest pain and swelling of feet/ankles Resp: Reports: dyspnea and productive cough GI: Denies: abdominal pain, nausea, vomiting or diarrhea Musc: Denies: neck pain or back pain Skin/Breast: Denies: rash Neuro: Denies: headache(s) PFSH ED 2 PFSH: Medical History Major depressive disorder, single episode, severe without psychotic features Sleep apnea Psychiatric care Diastolic heart failure Chest pain Lower extremity edema Atypical chest pain Cervical radiculopathy Pain of hand Diastolic CHF 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 Other Adopted Social History Smoking and tobacco/nicotine status: former use of tobacco/nicotine Quit status (tobacco/nicotine): has quit using Year quit tobacco: 2019 - 1-5 ciggs/day Alcohol intake: never Substance/Drug Use: never Lives independently: Yes Household members: none Housing: Apartment Current occupational status: disabled Do you think of yourself as: Straight/Heterosexual Current gender identity: Female Physical Exam 2 Const: COMMON NORMALS: no acute distress, patient oriented x3 and alert G ENERAL APPEARANCE: cooperative ORIENTATION/CONSCIOUSNESS: Yes awake, Yes oriented to person, Yes oriented to place and Yes oriented to time HENMT: COMMON NORMALS: normocephalic and atraumatic HEAD & SCALP: n ormocephalic and atraumatic FACE & SINUS: normal facial exam MOUTH: Normal oral and palatal mucosa present THROAT: posterior oropharynx normal Eye: COMMON NORMALS: Equal, round and reactive pupils present, EOMs intact bilaterally, conjunctivae normal and no scleral icterus GENERAL EYE: a ppearance normal, both eyes and all related structures ALIGNMENT: Yes alignment normal PERIORBITAL: periorbital findings normal CONJUNCTIVA: Yes conjunctivae normal PUPIL: Yes Equal, round and reactive pupils present Neck/C-Spine: COMMON NORMALS: full ROM GENERAL: Yes normal visual inspection Lymph: LYMPHATIC: no lymphadenopathy noted Chest: COMMONS NORMALS: normal inspection of the chest Breast/axilla inspection: Yes no chest deformity, asymmetry, normal contours, no nodules, masses, tenderness Resp: COMMON NORMALS: normal respiratory effort, No retractions, No use of accessory muscles and clear to auscultation bilaterally EFFORT & INSPECTION: Yes able to speak in complete sentences and Yes symmetric chest movement A USCULTATION: clear to auscultation bilaterally Cardio: COMMON NORMALS: regular rate, regular rhythm and Peripheral pulses 2+ throughout RATE: regular rate RHYTHM: regular rhythm PERIPHERAL PULSES: Peripheral pulses 2+ throughout GI: COMMON NORMALS: Normal to inspection, nondistended, normoactive bowel sounds present, Soft to palpation, non-tender and No hepatosplenomegaly present INSPECTION: Yes normal to inspection AUSCULTATION: Yes normoactive bowel sounds PALPATION: Yes Soft to palpation and Yes No hepatosplenomegaly present RECTAL EXAM: deferred Extremity: COMMON NORMALS: normal to inspection GENERAL: Yes normal exam except as noted Neuro: COMMON NORMALS: patient oriented x3 SENSORIUM/ORIENTATION: Yes alert, Yes oriented to person, Yes oriented to place and Yes oriented to time CRANIAL NERVES: Yes CN normal except as noted Psych: COMMON NORMALS: mental status grossly normal, Normal thought process present, cooperative, activity/motor behavior normal, denies homicidal ideation and denies suicidal ideation THOUGHT PROCESS: Normal thought process present Skin: COMMON NORMALS: no rashes or lesions noted, no wounds and turgor normal GENERAL SKIN EXAM: no rashes or lesions noted and turgor normal Course 2 Vital Signs: Vital signs: Vital Signs Temperature 98.0 F 02/08/24 18:48 Pulse Rate 56 L 02/09/24 02:26 Respiratory Rate 18 02/09/24 01:15 Blood Pressure 128/84 02/09/24 02:26 Pulse Oximetry 96 02/09/24 02:26 Oxygen Delivery Me thod Room Air 02/09/24 01:15 MDM - Chest Pain Medical Decision Making Patient was evaluated in the emergency department today for chest pain, shortness of breath, cough and congestion. EKG completed at 185 and reveals a sinus rhythm with a ventricular rate of 61 beats a minute and a QTc of 442. EKG was reviewed by Dr. Ordaz. There was notation of possible infarct but this appears to be old. EKG repeated at 2210 which reveals sinus bradycardia with a ventricular rate of 55 beats minute and a QTc of 438. No ectopy, ST elevation or abnormal T wave inversion. Chest x-ray was completed at 2255. It reveals no significant change when compared to chest x-ray on 01/19/2024. Patient underwent laboratory evaluation which revealed no leukocytosis, anemias, thrombocytopenia. Here chemistry panel reveals no electrolyte abnormalities. Her BUN and creatinine are at baseline. Troponin was 13 at baseline with a -0.36 as a 2-hour delta. COVID influenza and RSV testing negative. On reexamination she had developed some wheezing in the right lung. A DuoNeb treatment was ordered. I did order a CT chest. It reveals infiltrate versus atelectasis in the right lower lobe. Going to treat her for community acquired pneumonia. She does have an allergy to penicillin. I am going to treat her with Ceftin and azithromycin. Medication started here Heart score of 4. This is a moderate score and risk of M SUSAN 12 to 16%. I believe patient's chest complaints are more respiratory in nature. I have treated her with a DuoNeb Curb score is 0. Lab Data 02/08/24 20:33 02/08/24 20:33 Radiology Impressions Chest X-Ray 02/08/24 22:56 IMPRESSION: No acute findings. Chest CT 02/09/24 00:15 IMPRESSION: No acute intrathoracic process. Laboratory Results WBC 9.45 10^3/uL (3.29-11.43) 02/08/24 20:33 RBC 4.31 10^6/uL (3.85-5.65) 02/08/24 20:33 Hgb 12.60 g/dL (11.27-16.99) 02/08/24 20:33 Hct 41.0 % (36-47) 02/08/24 20:33 MCV 95.1 fl (85-98) 02/08/24 20:33 MCH 29.2 pg (27-33) 02/08/24 20: MCHC 30.7 g/dL (30-55) 02/08/24 20:33 RDW 13.4 % (12.1-15.1) 02/08/24 20:33 Plt Count 261 10^3/cmm (157-399) 02/08/24 20: MPV 9.8 fL (7.4-10.4) 02/08/24 20:33 Neut % (Auto) 46.6 % 02/08/24 20: Lymph % (Auto) 41.1 % 02/08/24 20: Glenn % (Auto) 8.0 % 02/08/24 20:33 Eos % (Auto) 3.1 % 02/08/24 20:33 Baso % (Auto) 1.0 % 02/08/24 20:33 Neut # (Auto) 4.41 10^3/uL (1.8-7.7) 02/08/24 20:33 Lymph # (Auto) 3.9 10^3/uL (0.8-4.8) 02/08/24 20:33 Glenn # (Auto) 0.8 10^3/uL (0.2-0.9) 02/08/24 20: Eos # (Auto) 0.3 10^3/uL (0.0-0.8) 02/08/24 20: Baso # (Auto) 0.1 10^3/uL (0.0-0.1) 02/08/24 20: Nucleated RBC % (auto) 0 % 02/08/24: Nucleated RBCs # 0.0 /100WBC 02/08/24 20:33 Sodium 141 mmol/L (136-145) 02/08/24 20: Potassium 4.0 mmol/L (3.5-5.1) 02/08/24 20: Chloride 97 mmol/L (98-107) L 02/08/24: Carbon Dioxide 33 mmol/L (22-29) H 02/08/24 20:33 Anion Gap 15.0 (5-19) 02/08/24 20:33 BUN 13 mg/dL (6-20) 02/08/24 20: Creatinine 1.0 mg/dL (0.5-0.9) H 02/08/24 20:33 GFR Calculation 56.7 mL/min (90-130) L 02/08/24 20:33 Glucose 99 mg/dL (65-115) 02/08/24 20: Calculated Osmolality 292 mOsm/kg (285-295) 02/08/24 20: Calcium 8.9 mg/dL (8.5-10.5) 02/08/24 20:33 Troponin T Baseline 13 ng/L (0-10) H 02/08/24 20:33 Troponin T 120 Minute 12.64 ng/L (0-10) H 02/08/24 22:37 Delta Troponin T -0.36 ABS# (0-10) L 02/08/24 22:37 Coronavirus (PCR) Negative (Negative) 02/08/24 22:35 Influenza A (PCR) Negative (Negative) 02/08/24 22:35 Influenza Type B (PCR) Negative (Negative) 02/08/24 22:35 RSV (PCR) Negative (Negative) 02/08/24 22:35 XR interpretation done by ED provider, pending radiology final review Discharge Plan Discharge Patient Disposition: Home Clinical Impression: Community acquired pneumonia Condition: Stable Prescriptions: New cefuroxime axetil 500 mg tablet 500 mg PO BID 5 Days Qty: 10 0RF azithromycin 250 mg tablet 250 mg PO DAILY 4 Days Qty: 4 0RF Rx Instructions: start on day 2 of therapy No Action levetiracetam 250 mg tablet 250 mg PO BID aspirin [Adult Aspirin Regimen] 81 mg tablet,delayed release (DR/EC) 81 mg PO QAM metoprolol succinate [Toprol XL] 25 mg tablet extended release 24 hr 50 mg PO DAILY Qty: 180 2RF trazodone 50 mg tablet 100 mg PO BEDTIME duloxetine 60 mg capsule,delayed release(DR/EC) 60 mg PO QAM albuterol sulfate 2.5 mg /3 mL (0.083 %) solution for nebulization 2.5 mg inhalation QID PRN (Reason: SHORTNESS OF BREATH) levothyroxine 100 mcg tablet 100 mcg PO QAM gabapentin 300 mg capsule 300 mg PO TID albuterol sulfate 90 mcg/actuation HFA aerosol inhaler 2 puff INHALATION Q6H PRN (Reason: Shortness Of Breath Or Wheezing) sucralfate 1 gram tablet 1 g PO TID montelukast 10 mg tablet 10 mg PO DAILY fluticasone propionate 50 mcg/actuation spray,suspension 1 spray INTRANASAL BID Gemtesa 75 mg tablet 75 mg PO DAILY potassium chloride 20 mEq tablet,ER particles/crystals 20 meq PO DAILY atorvastatin 20 mg tablet 40 mg PO BEDTIME Qty: 60 0RF spironolactone 25 mg tablet 25 mg PO BEDTIME Discharge Orders: Discharge ED (Routine); Ordered 02/09/24 Ordered By: aJsmin Kowalski Referrals: Akila Rivera DO [Primary Care Provider] - Discharge Diet: Advance as tolerated Discharge Activity: Resume usual activity Patient Instructions: Community Acquired Pneumonia (DC), Pain Management Activity Restrictions/Additional Instructions: You have been diagnosed with a pneumonia. You are started on Ceftin and azithromycin. Please take your medications as prescribed Monitor your symptoms and if you feel you are getting worse and reevaluated by primary care or here in the Coding Level of Care Code ED Nude Model for Dc Serrato
[2024-02-08 22:40] VITALS: BP 141/64; PULSE 62; RESP 15; O2SAT 93
--- NOTE | 2024-02-08 22:56 | XRR_ITS ---
PROCEDURE INFORMATION: Exam: XR Chest Exam date and time: 02/08/2024 11:24 PM Age: 58 years old Clinical indication: Cough TECHNIQUE: Imaging protocol: Radiologic exam of the chest. Views: 1 view. COMPARISON: CR XR chest 1V portable [id number] 01/19/2024 1:33 PM FINDINGS: Lungs: Unremarkable. No consolidation. Pleural spaces: Unremarkable. No pleural effusion. No pneumothorax. Heart/Mediastinum: Unremarkable. No cardiomegaly. Bones/joints: Unremarkable. XR/XR chest 1V [id number] IMPRESSION: No acute findings.
[2024-02-08 23:00] VITALS: BP 145/67; PULSE 55; RESP 16
[2024-02-08 23:00] LABS: Troponin 5 2HR 12.64 ng/L (0-10)
[2024-02-08 23:03] LABS: Troponin 5 2HR Delta -0.36 ABS# (0-10)
[2024-02-08 23:23] LABS: Covid PCR NEGATIVE (Negative); Influenza A NEGATIVE (Negative); Influenza B NEGATIVE (Negative); Respiratory Syncytial Virus Ce NEGATIVE (Negative)
[2024-02-08 23:30] VITALS: BP 145/67; PULSE 69; RESP 23
[2024-02-09] VITALS: BP 141/67; PULSE 65; RESP 18; O2SAT 94
--- NOTE | 2024-02-09 00:15 | CTR_ITS ---
PROCEDURE INFORMATION: Exam: CT Chest Without Contrast; Diagnostic Exam date and time: 02/09/2024 12:22 AM Age: 58 years old Clinical indication: Cough and shortness of breath; Prior surgery; Surgery date: 6+ months; Surgery type: Thyroid; Additional info: SOB cough TECHNIQUE: Imaging protocol: Diagnostic computed tomography of the chest without contrast. Radiation optimization: All CT scans at this facility use at least one of these dose optimization techniques: automated exposure control; mA and/or kV adjustment per patient size (includes targeted exams where dose is matched to clinical indication); or iterative reconstruction. COMPARISON: CR (CHEST, ) 02/08/2024 11:24 PM RADIATION DOSE METRICS: Total DLP (mGy-cm): 514.97 FINDINGS: Lungs: Unremarkable. No consolidation. No masses. Pleural spaces: Unremarkable. No pneumothorax. No pleural effusion. Heart: No detectable coronary artery calcifications.. No cardiomegaly. No pericardial effusion. Lymph nodes: Unremarkable. No enlarged lymph nodes. Vasculature: Hypoplastic celiac artery, please refer to the CT angio abdomen study from 01/07/2020 Bones/joints: Unremarkable. No acute fracture. Soft tissues: Unremarkable. Other findings: . CT/CT chest con [id number] IMPRESSION: No acute intrathoracic process.
[2024-02-09] MEDS: ipratropium-albuterol 3 mL Neb INHALATION (01:12)
[2024-02-09 01:15] VITALS: PULSE 60; RESP 18; O2SAT 95
[2024-02-09] MEDS: cefUROXime 250 mg Tablet 500 MG PO (02:18)
[2024-02-09] MEDS: azithromycin 250 mg Tablet 500 MG PO (02:18)
[2024-02-09 02:26] VITALS: BP 128/84; PULSE 56; O2SAT 96
== END 2024-02-09 02:27 | disposition home or self-care (01) ==
PROVIDERS: Emergency Medicine; Emergency Provider Nurse Practitioner; PCP Family Medicine
DX: J18.9 Pneumonia, unspecified organism (principal); Z11.52 Encounter for screening for COVID-19; Z79.82 Long term (current) use of aspirin; Z87.891 Personal history of nicotine dependence; J44.9 Chronic obstructive pulmonary disease, unspecified; I11.0 Hypertensive heart disease with heart failure; I50.30 Unspecified diastolic (congestive) heart failure
CPT/HCPCS: 36415; 71045; 71250; 80048; 84484; 85025; 87637; 93005; 94640; 99285; Q0144

== ENCOUNTER → 2024-03-01 10:22 | Outpatient (BNVA) | payer MEDICARE, SELFPAY ==
[2023-07-19 09:23] VITALS: BP 132/64; BMI 36.8
== END ==
PROVIDERS: PCP Family Medicine; Visit Provider Nurse Practitioner Family
DX: R07.9 Chest pain, unspecified (principal)
CPT/HCPCS: 93005; 99213

== ENCOUNTER 2024-03-03 21:25 | Emergency (ER) | payer MEDICARE, MEDICAID, SELFPAY ==
[2023-07-19 09:23] VITALS: BP 132/64; BMI 36.8
[2024-03-03 21:54] VITALS: BP 147/84; PULSE 87; RESP 20; TEMP 36.4; O2SAT 96
[2024-03-04] VITALS (11 sets, daily range): BP systolic 107–131; BP diastolic 37–76; PULSE 63–75; RESP 14–29; O2SAT 98–100
--- NOTE | 2024-03-04 00:55 | XRR_ITS ---
PROCEDURE INFORMATION: Exam: XR Chest Exam date and time: 03/04/2024 1:05 AM Age: 58 years old Clinical indication: Chest pressure; Patient HX: C/O chest pain; Additional info: Cp TECHNIQUE: Imaging protocol: Radiologic exam of the chest. Views: 1 view. COMPARISON: CT chest con [id number] 02/09/2024 12:22 AM FINDINGS: Lungs: Unremarkable. No consolidation. Pleural spaces: Unremarkable. No pleural effusion. No pneumothorax. Heart/Mediastinum: Stable cardiomegaly. Bones/joints: Unremarkable. XR/XR chest 1V portable [id number] IMPRESSION: No acute findings.
[2024-03-04 01:15] LABS: Basophils # 0.1 10^3/uL (0.0-0.1); Basophils % 0.8 %; Eosinophils # 0.2 10^3/uL (0.0-0.8); Eosinophils % 2.5 %; Hematocrit 41.7 % (36-47); Lymphocytes % 33.1 %; Mean Corpuscular Hemoglobin 29.1 pg (27-33); Mean Corpuscular Volume 97.2 fl (85-98); Mean Platelet Volume 9.8 fL (7.4-10.4); Monocytes # 0.9 10^3/uL (0.2-0.9); Monocytes % 9.3 %; Neutrophils # 4.92 10^3/uL (1.8-7.7); Neutrophils % 53.8 %; Nucleated Red Blood Cells % 0 %; Platelet Count 262 10^3/cmm (157-399); Red Blood Count 4.29 10^6/uL (3.85-5.65); Red Cell Distribution Width 13.7 % (12.1-15.1); White Blood Count 9.15 10^3/uL (3.29-11.43)
[2024-03-04 01:39] LABS: Troponin(5th) Baseline 18 ng/L (0-10)
[2024-03-04 01:47] LABS: Alanine Aminotransferase 12 U/L (0-33); Alkaline Phosphatase 104 U/L (35-105); Aspartate Amino Transferase 15 U/L (0-32); Blood Urea Nitrogen 15 mg/dL (6-20); Carbon Dioxide 32 mmol/L (22-29); Chloride 97 mmol/L (98-107); Creatinine Clr Calc Pharmacy 76.8094; Globulin 3.1 g/dL (1.3-4.6); Glomerular Filtration Rate 56.7 mL/min (90-130); Glucose 91 mg/dL (65-115); NT Pro B Type Natriuretic Pept 62 pg/mL (0-125); Osmolality Calculated 292 mOsm/kg (285-295); Sodium 141 mmol/L (136-145); Total Bilirubin 0.7 mg/dL (0.15-1.2); Total Protein 7.1 g/dL (6.6-8.7)
[2024-03-04] MEDS: lidocaine 2% viscous 15 ML, aluminum-mag hydrox-simethicon 30 ML, sucralfate oral liq 1 GM PO (01:48)
--- NOTE | 2024-03-04 02:11 | ED_ITS ---
HPI - Chest Pain 2 General: Chief Complaint: Chest Pain Stated Complaint: CHEST PAIN Time Seen by Provider: 03/04/24 00:55 History of Present Illness: 58-year-old female [facility] She presents with chest discomfort. She localizes her chest pain to the left side of her chest and epigastric area. Pain is been ongoing. She has had some shortness of breath. She said she has gained some water weight as well. She was diagnosed with pneumonia couple weeks ago. Is finished her antibiotics for that. She is still coughing, but does not have sputum she says. No fever. Related Data Home Medications Medication Instructions Recorded Confirmed aspirin 81 mg tablet,delayed 81 mg PO QAM 02/15/19 03/01/24 release (Adult Aspirin Regimen) levetiracetam 250 mg tablet 250 mg PO BID 02/15/19 03/01/24 duloxetine 60 mg capsule,delayed 60 mg PO QAM 04/05/21 03/01/24 release trazodone 50 mg tablet 100 mg PO BEDTIME 04/05/21 03/01/24 montelukast 10 mg tablet 10 mg PO DAILY 03/15/23 03/01/24 sucralfate 1 gram tablet 1 g PO TID 03/15/23 03/01/24 albuterol sulfate 2.5 mg/3 mL 2.5 mg inhalation QID PRN 03/17/23 03/01/24 (0.083 %) solution for nebulization SHORTNESS OF BREATH fluticasone propionate 50 1 spray intranasal BID 06/09/23 03/01/24 mcg/actuation nasal spray,suspension potassium chloride 20 mEq 20 meq PO DAILY 06/09/23 03/01/24 tablet,extended release(part/cryst) vibegron 75 mg tablet (Gemtesa) 75 mg PO DAILY 06/09/23 03/01/24 spironolactone 25 mg tablet 25 mg PO BEDTIME 06/22/23 03/01/24 gabapentin 300 mg capsule 300 mg PO TID 08/07/23 03/01/24 levothyroxine 100 mcg tablet 100 mcg PO QAM 08/07/23 03/01/24 albuterol sulfate 90 mcg/actuation 2 puff inhalation Q6H PRN 01/19/24 03/01/24 aerosol inhaler Shortness Of Breath Or Wheezing Previous Rx's Medication Instructions Recorded atorvastatin 20 mg tablet 40 mg (2 x 20 mg) PO BEDTIME #60 06/10/23 tabs metoprolol succinate 25 mg 50 mg (2 x 25 mg) PO DAILY #180 09/18/23 tablet,extended release 24 hr tabs (Toprol XL) bumetanide 2 mg tablet 2 mg PO DAILY #90 tabs 03/01/24 isosorbide mononitrate 30 mg 30 mg PO DAILY #90 tabs 03/01/24 tablet,extended release 24 hr ketorolac 10 mg tablet 10 mg PO TID PRN pain #10 tabs 03/04/24 Allergies Allergy/AdvReac Type Severity Reaction Status Date / Time chlorpromazine Allergy Unknown ALGY-Rash Verified 03/01/24 10:03 diphenhydramine Allergy Unknown Unknown Verified 03/01/24 10:03 Iodinated Contrast Media Allergy Unknown ALGY-Hives Verified 03/01/24 10:03 tramadol Allergy Unknown Verified 03/01/24 10:03 amoxicillin AdvReac Unknown ADR-Nausea Verified 03/01/24 10:03 codeine AdvReac Unknown ADR-Vomitin Verified 03/01/24 10:03 g Penicillins AdvReac Unknown ADR-Vomitin Verified 03/01/24 10:03 g PFSH ED 2 PFSH: Medical History Major depressive disorder, single episode, severe without psychotic features Sleep apnea Psychiatric care Diastolic heart failure Chest pain Lower extremity edema Atypical chest pain Cervical radiculopathy Pain of hand Diastolic CHF 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 Other Adopted Social History Smoking and tobacco/nicotine status: current every day tobacco/nicotine user Quit status (tobacco/nicotine): has quit using Year quit tobacco: 2019 - 1-5 ciggs/day Alcohol intake: never Substance/Drug Use: never Lives independently: Yes Household members: none Housing: Apartment Current occupational status: disabled Do you think of yourself as: Straight/Heterosexual Current gender identity: Female Physical Exam 2 Const: COMMON NORMALS: no acute distress GENERAL APPEARANCE: cooperative and anxious; not ill appearing and not frail appearing HENMT: COMMON NORMALS: normocephalic, atraumatic and Normal external nose present HEAD & SCALP: normocephalic and atraumatic FACE & SINUS: normal facial exam and face symmetric NOSE: Normal external nose present Eye: COMMON NORMALS: Equal, round and reactive pupils present and EOMs intact bilaterally PUPIL: Yes Equal, round and reactive pupils present Neck/C-Spine: GENERAL: Yes trachea midline Chest: CHEST: Yes Symmetrical chest wall rise OTHER: Tenderness to palpation present. Resp: COMMON NORMALS: normal respiratory effort, No retractions, No use of accessory muscles and clear to auscultation bilaterally AUSCULTATION: clear to auscultation bilaterally Cardio: COMMON NORMALS: regular rate and regular rhythm RATE: regular rate RHYTHM: regular rhythm GI: COMMON NORMALS: Normal to inspection, nondistended, normoactive bowel sounds present Extremity: COMMON NORMALS: no pedal edema Neuro: CELIO COMA SCALE: document GCS findings Britt coma scale eye opening: Spontaneous Britt coma scale verbal response: Orientated Celio coma scale motor response: Obey commands Britt coma scale total score: 15 S ENSORY EXAM: Yes extremities (intact) Psych: COMMON NORMALS: speech normal SPEECH: Yes normal speech Skin: NARRATIVE SKIN EXAM: Chronic stasis dermatitis present. Course 2 Vital Signs: Vital signs: Vital Signs Temperature 97.5 F L 03/03/24 21:54 Pulse Rate 71 03/04/24 04:00 Respiratory Rate 14 03/04/24 04:00 Blood Pressure 110/37 03/04/24 04:15 Pulse Oximetry 98 03/04/24 04:00 Oxygen Delivery Me thod Nasal Cannula 03/04/24 04:15 Oxygen Flow Rate 2 03/04/24 04:15 MDM - Chest Pain Medical Decision Making No acute ST wave changes on EKG. Her vitals are stable. Her CBC is normal. Her BMP is not remarkable. Chest is nonacute. BNP is 62. Troponin is 18 which is essentially her baseline. Pain is reproducible. She is given Toradol for this. She has had some improvement. She will be discharged. Lab Data 03/04/24 01:10 03/04/24 01:10 Radiology Impressions Chest X-Ray 03/04/24 00:55 IMPRESSION: No acute findings. Laboratory Results WBC 9.15 10^3/uL (3.29-11.43) 03/04/24 01:10 RBC 4.29 10^6/uL (3.85-5.65) 03/04/24 01:10 Hgb 12.50 g/dL (11.27-16.99) 03/04/24 01:10 Hct 41.7 % (36-47) 03/04/24 01:10 MCV 97.2 fl (85-98) 03/04/24 01:10 MCH 29.1 pg (27-33) 03/04/24 01:10 MCHC 30.0 g/dL (30-55) 03/04/24 01:10 RDW 13.7 % (12.1-15.1) 03/04/24 01:10 Plt Count 262 10^3/cmm (157-399) 03/04/24 01:10 MPV 9.8 fL (7.4-10.4) 03/04/24 01:10 Neut % (Auto) 53.8 % 03/04/24 01:10 Lymph % (Auto) 33.1 % 03/04/24 01:10 [place] % (Auto) 9.3 % 03/04/24 01:10 Eos % (Auto) 2.5 % 03/04/24 01:10 Baso % (Auto) 0.8 % 03/04/24 01:10 Neut # (Auto) 4.92 10^3/uL (1.8-7.7) 03/04/24 01:10 Lymph # (Auto) 3.0 10^3/uL (0.8-4.8) 03/04/24 01:10 [place] # (Auto) 0.9 10^3/uL (0.2-0.9) 03/04/24 01:10 Eos # (Auto) 0.2 10^3/uL (0.0-0.8) 03/04/24 01:10 Baso # (Auto) 0.1 10^3/uL (0.0-0.1) 03/04/24 01:10 Nucleated RBC % (auto) 0 % 03/04/24 01:10 Nucleated RBCs # 0.0 /100WBC 03/04/24 01:10 Sodium 141 mmol/L (136-145) 03/04/24 01:10 Potassium 5.0 mmol/L (3.5-5.1) 03/04/24 01:10 Chloride 97 mmol/L (98-107) L 03/04/24 01:10 Carbon Dioxide 32 mmol/L (22-29) H 03/04/24 01:10 Anion Gap 17.0 (5-19) 03/04/24 01:10 BUN 15 mg/dL (6-20) 03/04/24 01:10 Creatinine 1.0 mg/dL (0.5-0.9) H 03/04/24 01:10 GFR Calculation 56.7 mL/min (90-130) L 03/04/24 01:10 Glucose 91 mg/dL (65-115) 03/04/24 01:10 Calculated Osmolality 292 mOsm/kg (285-295) 03/04/24 01:10 Calcium 9.0 mg/dL (8.5-10.5) 03/04/24 01:10 Total Bilirubin 0.7 mg/dL (0.15-1.2) 03/04/24 01:10 AST 15 U/L (0-32) 03/04/24 01:10 ALT 12 U/L (0-33) 03/04/24 01:10 Alkaline Phosphatase 104 U/L (35-105) 03/04/24 01:10 Troponin T Baseline 18 ng/L (0-10) H 03/04/24 01:10 NT-Pro-B Natriuret Pep 62 pg/mL (0-125) 03/04/24 01:10 Total Protein 7.1 g/dL (6.6-8.7) 03/04/24 01:10 Albumin 4.0 g/dL (3.5-5.2) 03/04/24 01:10 Globulin 3.1 g/dL (1.3-4.6) 03/04/24 01:10 All radiology interpretation(s) finalized by discharge Discharge Plan Discharge Patient Disposition: Home Clinical Impression: Atypical chest pain Condition: Stable Prescriptions: New ketorolac 10 mg tablet 10 mg PO TID PRN (Reason: pain) Qty: 10 0RF No Action levetiracetam 250 mg tablet 250 mg PO BID aspirin [Adult Aspirin Regimen] 81 mg tablet,delayed release (DR/EC) 81 mg PO QAM bumetanide 2 mg tablet 2 mg PO DAILY Qty: 90 3RF isosorbide mononitrate 30 mg tablet extended release 24 hr 30 mg PO DAILY Qty: 90 1RF metoprolol succinate [Toprol XL] 25 mg tablet extended release 24 hr 50 mg PO DAILY Qty: 180 2RF trazodone 50 mg tablet 100 mg PO BEDTIME duloxetine 60 mg capsule,delayed release(DR/EC) 60 mg PO QAM albuterol sulfate 2.5 mg /3 mL (0.083 %) solution for nebulization 2.5 mg inhalation QID PRN (Reason: SHORTNESS OF BREATH) levothyroxine 100 mcg tablet 100 mcg PO QAM gabapentin 300 mg capsule 300 mg PO TID albuterol sulfate 90 mcg/actuation HFA aerosol inhaler 2 puff INHALATION Q6H PRN (Reason: Shortness Of Breath Or Wheezing) sucralfate 1 gram tablet 1 g PO TID montelukast 10 mg tablet 10 mg PO DAILY fluticasone propionate 50 mcg/actuation spray,suspension 1 spray INTRANASAL BID Gemtesa 75 mg tablet 75 mg PO DAILY potassium chloride 20 mEq tablet,ER particles/crystals 20 meq PO DAILY atorvastatin 20 mg tablet 40 mg PO BEDTIME Qty: 60 0RF spironolactone 25 mg tablet 25 mg PO BEDTIME Discharge Orders: Discharge ED (Routine); Ordered 03/04/24 Ordered By: Odilon Gama Referrals: Akila Rivera DO [Primary Care Provider] - Patient Instructions: Chest Pain - Chest Wall, Chest Pain (ED), Opioid Safety, Pain Management Coding Level of Care Code ED Concert Or Lecture [facility] Manager for [facility] Serrato
[2024-03-04] MEDS: ketorolac 30 mg/mL INJ IM (03:11)
[2024-03-04] MEDS: ondansetron 4 MG Tablet PO (03:11)
== END 2024-03-04 04:15 | disposition home or self-care (01) ==
PROVIDERS: Emergency Provider Emergency Medicine; PCP Family Medicine
DX: R07.89 Other chest pain (principal); Z72.0 Tobacco use; I50.30 Unspecified diastolic (congestive) heart failure; J44.9 Chronic obstructive pulmonary disease, unspecified
CPT/HCPCS: 36415; 71045; 80053; 83880; 84484; 85025; 96372; 99285; J1885; Q0162

== ENCOUNTER 2024-03-12 19:18 | Emergency (ER) | payer MEDICARE, MEDICAID, SELFPAY ==
[2023-07-19 09:23] VITALS: BP 132/64; BMI 36.8
[2024-03-12] VITALS (7 sets, daily range): BP systolic 98–142; BP diastolic 49–77; PULSE 63–76; RESP 18–32; TEMP 36.4; O2SAT 91–97
--- NOTE | 2024-03-12 19:19 | CTR_ITS ---
PROCEDURE INFORMATION: Exam: CT Head Without Contrast Exam date and time: 03/12/2024 7:20 PM Age: 58 years old Clinical indication: Stroke-like symptoms; Altered mental status/memory loss; Additional info: Stroke alert TECHNIQUE: Imaging protocol: Computed tomography of the head without contrast. Radiation optimization: All CT scans at this facility use at least one of these dose optimization techniques: automated exposure control; mA and/or kV adjustment per patient size (includes targeted exams where dose is matched to clinical indication); or iterative reconstruction. Other technique: STROKE PROTOCOL was implemented. COMPARISON: CT head wo con* [id number] 09/02/2023 8:51 PM RADIATION DOSE METRICS: Total DLP (mGy-cm): 1144.78 FINDINGS: Brain: Normal. No hemorrhage. Unremarkable white matter. No mass effect. Cerebral ventricles: No ventriculomegaly. Paranasal sinuses: Visualized sinuses are unremarkable. No fluid levels. Mastoid air cells: Visualized mastoid air cells are well aerated. Bones: Unremarkable. No acute fracture. Soft tissues: Unremarkable. CT/CT head wo con* [id number] IMPRESSION: No acute intracranial abnormality. ASSESSMENT: ASPECTS ([place] Stroke Program Early CT Score) is 10.
--- NOTE | 2024-03-12 19:24 | XRR_ITS ---
PROCEDURE INFORMATION: Exam: XR Chest Exam date and time: 03/12/2024 7:35 PM Age: 58 years old Clinical indication: Other: AMS; Additional info: CVA TECHNIQUE: Imaging protocol: Radiologic exam of the chest. Views: 1 view. COMPARISON: CR (CHEST, ) 03/04/2024 1:05 AM FINDINGS: Lungs: Unremarkable. No consolidation. Pleural spaces: Unremarkable. No pleural effusion. No pneumothorax. Heart/Mediastinum: Stable cardiomegaly. Overall, the cardiomediastinal silhouette is stable. Vasculature: The thoracic aorta is tortuous. Bones/joints: Unremarkable. XR/XR chest 1V portable [id number] IMPRESSION: No acute abnormality. Stable cardiomegaly.
--- NOTE | 2024-03-12 19:24 | CTR_ITS ---
PROCEDURE INFORMATION: Exam: CTA Head With Contrast, Arteriography Exam date and time: 03/12/2024 8:16 PM Age: 58 years old Clinical indication: Other: Stroke; Additional info: CVA, right-sided deficit TECHNIQUE: Imaging protocol: Computed tomographic angiography of the head with contrast. Exam focused on the arteries. 3D rendering (Not supervised by radiologist): MIP and/or 3D reconstructed images were created by the technologist. Radiation optimization: All CT scans at this facility use at least one of these dose optimization techniques: automated exposure control; mA and/or kV adjustment per patient size (includes targeted exams where dose is matched to clinical indication); or iterative reconstruction. Contrast material: OMNI; Contrast volume: 100 ml; Contrast route: INTRAVENOUS (IV); COMPARISON: CT head wo con* [id number] 03/12/2024 7:20 PM RADIATION DOSE METRICS: Total DLP (mGy-cm): 403.54 FINDINGS: ANTERIOR CIRCULATION: Right internal carotid artery: Intracranial segment is patent with no significant stenosis. No aneurysm. Right middle cerebral artery: No occlusion or significant stenosis. No aneurysm. Right anterior cerebral artery: No occlusion or significant stenosis. No aneurysm. Left internal carotid artery: Intracranial segment is patent with no significant stenosis. No aneurysm. Left middle cerebral artery: No occlusion or significant stenosis. No aneurysm. Left anterior cerebral artery: No occlusion or significant stenosis. No aneurysm. POSTERIOR CIRCULATION: Right vertebral artery: No occlusion or significant stenosis. No aneurysm. Left vertebral artery: No occlusion or significant stenosis. No aneurysm. Basilar artery: No occlusion or significant stenosis. No aneurysm. Right posterior cerebral artery: No occlusion or significant stenosis. No aneurysm. Left posterior cerebral artery: No occlusion or significant stenosis. No aneurysm. Brain: No definite mass, mass effect, or midline shift. Cerebral ventricles: No ventriculomegaly. Bones/joints: Unremarkable. No acute fracture. Soft tissues: Unremarkable. PROCEDURE INFORMATION: Exam: CTA Neck With Contrast Exam date and time: 03/12/2024 8:16 PM Age: 58 years old Clinical indication: Other: Stroke; Additional info: CVA, right-sided deficit TECHNIQUE: Imaging protocol: Computed tomographic angiography of the neck with contrast. Exam focused on the cervical segments of the vasculature. 3D rendering (Not supervised by radiologist): MIP and/or 3D reconstructed images were created by the technologist. Radiation optimization: All CT scans at this facility use at least one of these dose optimization techniques: automated exposure control; mA and/or kV adjustment per patient size (includes targeted exams where dose is matched to clinical indication); or iterative reconstruction. Contrast material: OMNI; Contrast volume: 100 ml; Contrast route: INTRAVENOUS (IV); COMPARISON: CT head wo con* [id number] 03/12/2024 7:20 PM RADIATION DOSE METRICS: Total DLP (mGy-cm): 0.1 FINDINGS: Right common carotid artery: No stenosis. No dissection or occlusion. Right internal carotid artery: No stenosis of the extracranial segment. No dissection or occlusion. Right external carotid artery: No occlusion or stenosis of the origin. Left common carotid artery: No stenosis. No dissection or occlusion. Left internal carotid artery: No stenosis of the extracranial segment. No dissection or occlusion. Left external carotid artery: No occlusion or stenosis of the origin. Right vertebral artery: No stenosis. No dissection or occlusion. Left vertebral artery: No stenosis. No dissection or occlusion. Soft tissues: Normal. No significant soft tissue swelling. Patient is status post thyroidectomy. Bones/joints: No acute fracture. Multilevel degenerative changes involve the spine. CT/CT angio headneck* [id number] IMPRESSION: No large vessel stenosis or occlusion. IMPRESSION: No stenosis or occlusion. REFERENCES: NASCET CRITERIA. The degree of stenosis in the cervical segment of the internal carotid artery is based on NASCET criteria. Normal is no stenosis. Mild is less than 50% stenosis. Moderate is 50-69% stenosis. Severe is 70% to 99% stenosis. Total occlusion is no detectable patent lumen.
--- NOTE | 2024-03-12 19:45 | W.ED.NEUROSD ---
HPI - Neuro Symptoms/Deficit General: Chief Complaint: Neuro Symptoms/Deficit Stated Complaint: stroke symptoms Time Seen by Provider: 03/12/24 19:24 History of Present Illness: Patient brought in by S ambulance with complaints of strokelike symptoms, right sided weakness of the upper and lower extremities and possible mild slurring. These started approximately 184, patient does have a history of strokes but no deficit. Patient is on no blood thinner. Upon arrival patient was taken directly to CT. Patient not appear to have any neurodeficits at this time other than possibly right lower extremity weakness and right upper extremity weakness however patient appeared to have full strength in these limbs when not being tested and patient that we were not watching her. Related Data Home Medications ?Medication ?Instructions ?Recorded ?Confirmed aspirin 81 mg tablet,delayed 81 mg PO QAM 02/15/19 03/01/24 release (Adult Aspirin Regimen) levetiracetam 250 mg tablet 250 mg PO BID 02/15/19 03/01/24 duloxetine 60 mg capsule,delayed 60 mg PO QAM 04/05/21 03/01/24 release trazodone 50 mg tablet 100 mg PO BEDTIME 04/05/21 03/01/24 montelukast 10 mg tablet 10 mg PO DAILY 03/15/23 03/01/24 sucralfate 1 gram tablet 1 g PO TID 03/15/23 03/01/24 albuterol sulfate 2.5 mg/3 mL 2.5 mg inhalation QID PRN 03/17/23 03/01/24 (0.083 %) solution for nebulization SHORTNESS OF BREATH fluticasone propionate 50 1 spray intranasal BID 06/09/23 03/01/24 mcg/actuation nasal spray,suspension potassium chloride 20 mEq 20 meq PO DAILY 06/09/23 03/01/24 tablet,extended release(part/cryst) vibegron 75 mg tablet (Gemtesa) 75 mg PO DAILY 06/09/23 03/01/24 spironolactone 25 mg tablet 25 mg PO BEDTIME 06/22/23 03/01/24 gabapentin 300 mg capsule 300 mg PO TID 08/07/23 03/01/24 levothyroxine 100 mcg tablet 100 mcg PO QAM 08/07/23 03/01/24 albuterol sulfate 90 mcg/actuation 2 puff inhalation Q6H PRN 01/19/24 03/01/24 aerosol inhaler Shortness Of Breath Or Wheezing Previous Rx's ?Medication ?Instructions ?Recorded atorvastatin 20 mg tablet 40 mg (2 x 20 mg) PO BEDTIME #60 06/10/23 tabs metoprolol succinate 25 mg 50 mg (2 x 25 mg) PO DAILY #180 09/18/23 tablet,extended release 24 hr tabs (Toprol XL) bumetanide 2 mg tablet 2 mg PO DAILY #90 tabs 03/01/24 isosorbide mononitrate 30 mg 30 mg PO DAILY #90 tabs 03/01/24 tablet,extended release 24 hr ketorolac 10 mg tablet 10 mg PO TID PRN pain #10 tabs 03/04/24 Allergies Allergy/AdvReac Type Severity Reaction Status Date / Time chlorpromazine Allergy Unknown ALGY-Rash Verified 03/12/24 19:47 diphenhydramine Allergy Unknown Unknown Verified 03/12/24 19:47 Iodinated Contrast Media Allergy Unknown ALGY-Hives Verified 03/12/24 19:47 tramadol Allergy Unknown Verified 03/12/24 19:47 amoxicillin AdvReac Unknown ADR-Nausea Verified 03/12/24 19:47 codeine AdvReac Unknown ADR-Vomitin Verified 03/12/24 19:47 g Penicillins AdvReac Unknown ADR-Vomitin Verified 03/12/24 19:47 g Review of Systems General: Reports: 10 or more systems reviewed and unremarkable except in HPI and below PFSH ED PFSH: Medical History Major depressive disorder, single episode, severe without psychotic features Sleep apnea Psychiatric care Diastolic heart failure Chest pain Lower extremity edema Atypical chest pain Cervical radiculopathy Pain of hand Diastolic CHF 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 Other Adopted Social History Smoking and tobacco/nicotine status: current every day tobacco/nicotine user Quit status (tobacco/nicotine): has quit using Year quit tobacco: 2019 - 1-5 ciggs/day Alcohol intake: never Substance/Drug Use: never Lives independently: Yes Household members: none Housing: Apartment Current occupational status: disabled Do you think of yourself as: Straight/Heterosexual Current gender identity: Female NIH stroke score NIHSS: Level Of Consciousness - 1a: 0 Level Of Consciousness Questions - 1b: Both Correct Level Of Consciousness Commands - 1c: Both Correct Best Gaze - 2: Normal Visual Sal - 3: No Visual Loss Facial Palsy - 4: Normal Motor Arm Right - 5: No Drift Motor Arm Left - 5: No Drift Motor Leg Right - 6: Drift Motor Leg Left - 6: No Drift Limb Ataxia - 7: Absent Sensory - 8: Normal Best Language - 9: No Aphasia Dysarthia - 10: Normal Extinction And Inattention - 11: 0 Score: Total Score: 1 Physical Exam Const: COMMON NORMALS: no acute distress, average body habitus, patient oriented x3, no limitations, healthy appearing, alert and well nourished HENMT: COMMON NORMALS: normocephalic, atraumatic, hearing grossly normal bilaterally, external ears normal, TM's normal bilaterally and Normal nasal mucous membranes and turbinates present HEAD & SCALP: normocephalic and atraumatic NOSE: Normal nasal mucous membranes and turbinates present EXTERNAL EAR: Yes external ears normal TYMPANIC MEMBRANE: TM's normal bilaterally Eye: COMMON NORMALS: Equal, round and reactive pupils present, EOMs intact bilaterally, conjunctivae normal and no scleral icterus CONJUNCTIVA: Yes conjunctivae normal PUPIL: Yes Equal, round and reactive pupils present Neck/C-Spine: COMMON NORMALS: full ROM, no lymphadenopathy, supple, no meningeal signs, no JVD and Thyroid normal THYROID: Thyroid normal Chest: COMMONS NORMALS: normal inspection of the chest and normal palpation of entire chest wall Resp: COMMON NORMALS: normal respiratory effort, No retractions, No use of accessory muscles and clear to auscultation bilaterally AUSCULTATION: clear to auscultation bilaterally Cardio: COMMON NORMALS: no JVD, regular rate, regular rhythm, S1 normal heart sound present, S2 normal heart sound present, No gallops present (Cardio), No clicks present (Cardio), No murmurs present (Cardio) and No rub (Cardio) RATE: regular rate RHYTHM: regular rhythm HEART SOUNDS: S1 normal heart sound present and S2 normal heart sound present GI: COMMON NORMALS: Normal to inspection, nondistended, normoactive bowel sounds present, Soft to palpation, non-tender, No hepatosplenomegaly present and no masses PALPATION: Yes Soft to palpation and Yes No hepatosplenomegaly present Neuro: COMMON NORMALS: patient oriented x3 SENSORIUM/ORIENTATION: Yes alert MENINGEAL SIGNS: Yes no meningeal signs Course Vital Signs: Vital signs: Vital Signs Temperature 97.5 F L 03/12/24 19:20 Pulse Rate 74 03/12/24 19:20 Respiratory Rate 18 03/12/24 19:20 Blood Pressure 138/76 03/12/24 19:20 Pulse Oximetry 97 03/12/24 19:20 Oxygen Delivery Me thod Room Air 03/12/24 19:20 MDM - Neuro Symptoms/Deficit Medical Decision Making This case was discussed with Dr. Gonzales, all lab work imaging was reviewed. Patient was ambulated to the bathroom and back with no problem. Patient has absolutely no deficit at this time. We are i not sure sure if she actually had a deficit to begin with or if she was playing up her symptoms. Patient is well-known to this ER. Patient will be discharged home. Patient is already on aspirin and atorvastatin, Medical Records I reviewed the patient's medical records. Lab Data I reviewed the patient's lab results. 03/12/24 19:40 03/12/24 20:[address] 03/12/24 19:19 IMPRESSION: No acute intracranial abnormality. ASSESSMENT: ASPECTS (Chanelle Stroke Program Early CT Score) is 10. ADDENDUM: 03/12/241938 COMMENT: THIS REPORT CONTAINS FINDINGS THAT MAY BE CRITICAL TO PATIENT CARE. The exam findings were verbally communicated by me to Zach Magana via telephone conference at 7:38 PM DISPLAY MANAGER on 03/12/2024. The findings were acknowledged and understood. Chest X-Ray 03/12/24 19:24 IMPRESSION: No acute abnormality. Stable cardiomegaly. Head/Neck CTA 03/12/24 19:24 IMPRESSION: No large vessel stenosis or occlusion. IMPRESSION: No stenosis or occlusion. REFERENCES: NASCET CRITERIA. The degree of stenosis in the cervical segment of the internal carotid artery is based on NASCET criteria. Normal is no stenosis. Mild is less than 50% stenosis. Moderate is 50-69% stenosis. Severe is 70% to 99% stenosis. Total occlusion is no detectable patent lumen. Laboratory Results WBC 8.39 10^3/uL (3.29-11.43) 03/12/24 19:40 RBC 4.22 10^6/uL (3.85-5.65) 03/12/24 19:40 Hgb 12.30 g/dL (11.27-16.99) 03/12/24 19:40 Hct 39.4 % (36-47) 03/12/24 19:40 MCV 93.4 fl (85-98) 03/12/24 19:40 MCH 29.1 pg (27-33) 03/12/24 19:40 MCHC 31.2 g/dL (30-55) 03/12/24 19:40 RDW 13.9 % (12.1-15.1) 03/12/24 19:40 Plt Count 226 10^3/cmm (157-399) 03/12/24 19:40 MPV 10.7 fL (7.4-10.4) H 03/12/24 19:40 Neut % (Auto) 55.5 % 03/12/24 19:40 Lymph % (Auto) 31.8 % 03/12/24 19:40 [place] % (Auto) 8.6 % 03/12/24 19:40 Eos % (Auto) 3.1 % 03/12/24 19:40 Baso % (Auto) 0.6 % 03/12/24 19:40 Neut # (Auto) 4.66 10^3/uL (1.8-7.7) 03/12/24 19:40 Lymph # (Auto) 2.7 10^3/uL (0.8-4.8) 03/12/24 19:40 [place] # (Auto) 0.7 10^3/uL (0.2-0.9) 03/12/24 19:40 Eos # (Auto) 0.3 10^3/uL (0.0-0.8) 03/12/24 19:40 Baso # (Auto) 0.1 10^3/uL (0.0-0.1) 03/12/24 19:40 Nucleated RBC % (auto) 0 % 03/12/24 19:40 Nucleated RBCs # 0.0 /100WBC 03/12/24 19:40 PT 11.90 SECONDS (12.1-14.9) L 03/12/24 20:55 INR 0.82 (0.8-1.2) 03/12/24 20:55 APTT 24.4 SECONDS (23.9-36.7) 03/12/24 20:55 Sodium 136 mmol/L (136-145) 03/12/24 20:55 Potassium 4.1 mmol/L (3.5-5.1) 03/12/24 20:55 Chloride 94 mmol/L (98-107) L 03/12/24 20:55 Carbon Dioxide 34 mmol/L (22-29) H 03/12/24 20:55 Anion Gap 12.1 (5-19) 03/12/24 20:55 BUN 18 mg/dL (6-20) 03/12/24 20:55 Creatinine 1.0 mg/dL (0.5-0.9) H 03/12/24 20:55 GFR Calculation 56.7 mL/min (90-130) L 03/12/24 20:55 Glucose 105 mg/dL (65-115) 03/12/24 20:55 Calculated Osmolality 284 mOsm/kg (285-295) L 03/12/24 20:55 Calcium 8.4 mg/dL (8.5-10.5) L 03/12/24 20:55 Magnesium 1.9 mg/dL (1.7-2.3) 03/12/24 20:55 Total Bilirubin 0.7 mg/dL (0.15-1.2) 03/12/24 20:55 AST 19 U/L (0-32) 03/12/24 20:55 ALT 13 U/L (0-33) 03/12/24 20:55 Alkaline Phosphatase 97 U/L (35-105) 03/12/24 20:55 Troponin T Baseline 24 ng/L (0-10) H 03/12/24 19:40 Troponin T 120 Minute 17.93 ng/L (0-10) H 03/12/24 22:09 Delta Troponin T -6.07 ABS# (0-10) L 03/12/24 22:09 C-Reactive Protein 3.0 mg/L (0.0-4.9) 03/12/24 20:55 Total Protein 6.5 g/dL (6.6-8.7) L 03/12/24 20:55 Albumin 3.8 g/dL (3.5-5.2) 03/12/24 20:55 Globulin 2.7 g/dL (1.3-4.6) 03/12/24 20:55 TSH 6.91 uIU/mL (0.27-4.20) H 03/12/24 20:55 Urine Color Yellow (Yellow) 03/12/24 22:04 Urine Appearance Clear (CLEAR) 03/12/24 22:04 Urine pH 7.5 (5-7) 03/12/24 22:04 Ur Specific [place] 1.042 (1.005-1.030) H 03/12/24 22:04 Urine Protein Negative (Negative) 03/12/24 22:04 Urine Glucose (UA) Negative (Normal) 03/12/24 22:04 Urine Ketones Negative (Negative) 03/12/24 22:04 Urine Blood Negative (Negative) 03/12/24 22:04 Urine Nitrate Negative (Negative) 03/12/24 22:04 Urine Bilirubin Negative (Negative) 03/12/24 22:04 Urine Urobilinogen 0.2 mg/dL (Negative) 03/12/24 22:04 Ur Leukocyte Esterase Negative (Negative) 03/12/24 22:04 Urine RBC 0-2 /hpf (0-2) 03/12/24 22:04 Urine WBC 0-5 /hpf (0-5) 03/12/24 22:04 Ur Squamous Epith Cells 0-5 /hpf (0-5) 03/12/24 22:04 Amorphous Sediment Not Reportable 03/12/24 22:04 Urine Bacteria None seen /hpf (NONE) 03/12/24 22:04 Hyaline Casts 1.21 /lpf 03/12/24 22:04 Salicylates < 0.3 mg/dL (3-10) L 03/12/24 20:55 Urine Opiates Screen Negative ng/mL (Negative) 03/12/24 22:04 Acetaminophen < 5.0 ug/mL (10-30) L 03/12/24 20:55 Ur Barbiturates Screen Negative ng/mL (Negative) 03/12/24 22:04 Ur Phencyclidine Scrn Negative ng/mL (Negative) 03/12/24 22:04 Ur Amphetamines Screen Negative ng/mL (Negative) 03/12/24 22:04 U Benzodiazepines Scrn Negative ng/mL (Negative) 03/12/24 22:04 Urine Cocaine Screen Negative ng/mL (Negative) 03/12/24 22:04 U Marijuana (THC) Screen Negative ng/mL (Negative) 03/12/24 22:04 Ethyl Alcohol < 10 mg/dL (0-10) 03/12/24 20:55 All radiology interpretation(s) finalized by discharge Discharge Plan Discharge Patient Disposition: Home Clinical Impression: Right sided weakness Condition: Stable Prescriptions: No Action levetiracetam 250 mg tablet 250 mg PO BID aspirin [Adult Aspirin Regimen] 81 mg tablet,delayed release (DR/EC) 81 mg PO QAM bumetanide 2 mg tablet 2 mg PO DAILY Qty: 90 3RF isosorbide mononitrate 30 mg tablet extended release 24 hr 30 mg PO DAILY Qty: 90 1RF metoprolol succinate [Toprol XL] 25 mg tablet extended release 24 hr 50 mg PO DAILY Qty: 180 2RF trazodone 50 mg tablet 100 mg PO BEDTIME duloxetine 60 mg capsule,delayed release(DR/EC) 60 mg PO QAM albuterol sulfate 2.5 mg /3 mL (0.083 %) solution for nebulization 2.5 mg inhalation QID PRN (Reason: SHORTNESS OF BREATH) levothyroxine 100 mcg tablet 100 mcg PO QAM gabapentin 300 mg capsule 300 mg PO TID albuterol sulfate 90 mcg/actuation HFA aerosol inhaler 2 puff INHALATION Q6H PRN (Reason: Shortness Of Breath Or Wheezing) ketorolac 10 mg tablet 10 mg PO TID PRN (Reason: pain) Qty: 10 0RF sucralfate 1 gram tablet 1 g PO TID montelukast 10 mg tablet 10 mg PO DAILY fluticasone propionate 50 mcg/actuation spray,suspension 1 spray INTRANASAL BID Gemtesa 75 mg tablet 75 mg PO DAILY potassium chloride 20 mEq tablet,ER particles/crystals 20 meq PO DAILY atorvastatin 20 mg tablet 40 mg PO BEDTIME Qty: 60 0RF spironolactone 25 mg tablet 25 mg PO BEDTIME Discharge Orders: Discharge ED (Routine); Ordered 03/12/24 Ordered By: Zach Magana Referrals: Akila Rivera DO [Primary Care Provider] - Patient Instructions: Weakness (ED) Activity Restrictions/Additional Instructions: From your evaluation in the ER you are no longer weak on your right side. All of your testing come back benign. You are able to ambulate to the bathroom and back without any difficulty. Please continue take your aspirin and a atorvastatin along with all your other medicines as directed. Please follow back up with your primary care practitioner within next 7 days for further evaluation and treatment. If your symptoms return please feel free to return to the ER. Print Language: Portuguese Coding Level of Care Code ED Beam Builder for Dc Serrato
--- NOTE | 2024-03-12 19:58 | ECG_ITS ---
[facility] Date: 2024-03-12 Pat Name: Crystal Pierre Department: Room: Gender: Female Makeup Artistry Instructor: : 1965 Requested By: Zach Magana Order Number: [id number] Khanna MD: Joseph Wilson M.D. Measurements Intervals [place] Rate: 61 P: 56 KS: 132 QRS: 32 QRSD: 107 T: 28 QT: 431 QTc: 434 Interpretive Statements SINUS RHYTHM Compared to ECG 03/03/2024 21:32:44 Short [place] interval no longer present Electronically Signed On 03-14-2024 22:02:00 STEEL SAMPLER by Joseph Wilson M.D. [email or web address]
[2024-03-12] MEDS: methylPREDNISolone sod succ 40 mg/mL INJ IVP (20:00)
[2024-03-12 20:11] LABS: Basophils # 0.1 10^3/uL (0.0-0.1); Basophils % 0.6 %; Eosinophils # 0.3 10^3/uL (0.0-0.8); Eosinophils % 3.1 %; Hematocrit 39.4 % (36-47); Lymphocytes # 2.7 10^3/uL (0.8-4.8); Lymphocytes % 31.8 %; Mean Corpuscular HGB Conc 31.2 g/dL (30-55); Mean Corpuscular Hemoglobin 29.1 pg (27-33); Mean Corpuscular Volume 93.4 fl (85-98); Mean Platelet Volume 10.7 fL (7.4-10.4); Monocytes # 0.7 10^3/uL (0.2-0.9); Monocytes % 8.6 %; Neutrophils # 4.66 10^3/uL (1.8-7.7); Neutrophils % 55.5 %; Nucleated Red Blood Cells % 0 %; Platelet Count 226 10^3/cmm (157-399); Red Blood Count 4.22 10^6/uL (3.85-5.65); Red Cell Distribution Width 13.9 % (12.1-15.1); White Blood Count 8.39 10^3/uL (3.29-11.43)
[2024-03-12 20:41] LABS: Troponin(5th) Baseline 24 ng/L (0-10)
[2024-03-12 21:21] LABS: INR 0.82 (0.8-1.2)
[2024-03-12 21:22] LABS: Partial Thromboplastin Time 24.4 SECONDS (23.9-36.7)
[2024-03-12 21:36] LABS: Alanine Aminotransferase 13 U/L (0-33); Albumin Level 3.8 g/dL (3.5-5.2); Alkaline Phosphatase 97 U/L (35-105); Anion Gap 12.1 (5-19); Aspartate Amino Transferase 19 U/L (0-32); Blood Urea Nitrogen 18 mg/dL (6-20); Calcium 8.4 mg/dL (8.5-10.5); Carbon Dioxide 34 mmol/L (22-29); Chloride 94 mmol/L (98-107); Globulin 2.7 g/dL (1.3-4.6); Glomerular Filtration Rate 56.7 mL/min (90-130); Glucose 105 mg/dL (65-115); Magnesium 1.9 mg/dL (1.7-2.3); Osmolality Calculated 284 mOsm/kg (285-295); Potassium 4.1 mmol/L (3.5-5.1); Sodium 136 mmol/L (136-145); Thyroid Stimulating Hormone 6.91 uIU/mL (0.27-4.20); Total Bilirubin 0.7 mg/dL (0.15-1.2); Total Protein 6.5 g/dL (6.6-8.7)
[2024-03-12 21:41] LABS: Acetaminophen < 5.0 ug/mL (10-30); Alcohol Level < 10 mg/dL (0-10); Salicylate < 0.3 mg/dL (3-10)
[2024-03-12 22:15] LABS: Bilirubin Urine Negative (Negative); Blood Urine Negative (Negative); Glucose Urine UA Negative (Normal); Ketones Urine Negative (Negative); Leukocyte Esterase Urine Negative (Negative); Nitrate Urine Negative (Negative); Protein Urine Negative (Negative); Urine Appearance Clear (CLEAR); Urine Color Yellow (Yellow); Urobilinogen Urine 0.2 mg/dL (Negative); pH Urine 7.5 (5-7)
[2024-03-12 22:20] LABS: Add Urine Microscopic? YES; Bacteria Urine None Seen /hpf; Hyaline Casts Urine 1.21 /lpf; RBC Urine 0-2 /hpf (0-2); Squamous Epithelial Cell Urine 0-5 /hpf (0-5); WBC Urine 0-5 /hpf (0-5)
[2024-03-12 22:22] LABS: Amphetamines Screen Urine Negative (Negative); Barbiturates Screen Urine Negative (Negative); Benzodiazepines Screen Urine Negative (Negative); Cocaine Screen Urine Negative (Negative); Opiate Screen Urine Negative (Negative); PCP Screen Urine Negative (Negative); THC Screen Urine Negative (Negative)
[2024-03-12 22:31] LABS: Troponin 5 2HR 17.93 ng/L (0-10)
[2024-03-12 22:34] LABS: Specific Gravity, Urine 1.042 (1.005-1.030)
[2024-03-12 22:34] LABS: Troponin 5 2HR Delta -6.07 ABS# (0-10)
[2024-03-12 22:35] LABS: UA Slide Review UA Slide Review Perf
[2024-03-13 00:03] VITALS: BP 135/72; PULSE 61; O2SAT 95
== END 2024-03-13 00:04 | disposition home or self-care (01) ==
PROVIDERS: Emergency Provider Emergency Medicine; PCP Family Medicine
DX: R53.1 Weakness (principal); Z79.82 Long term (current) use of aspirin; J44.9 Chronic obstructive pulmonary disease, unspecified; I11.0 Hypertensive heart disease with heart failure; I50.30 Unspecified diastolic (congestive) heart failure
CPT/HCPCS: 36415; 70450; 70496; 70498; 71045; 80053; 80306; 80307; 81001; 83735; 84443; 84484; 85025; 85610; 85730; 86140; 93005; 96374; 99285; J2919

== ENCOUNTER 2024-03-23 14:57 | Emergency (ER) | payer MEDICARE, MEDICAID, SELFPAY ==
[2023-07-19 09:23] VITALS: BP 132/64; BMI 36.8
--- NOTE | 2024-03-23 14:58 | XRR_ITS ---
PROCEDURE INFORMATION: Exam: XR Chest Exam date and time: 03/23/2024 3:29 PM Age: 58 years old Clinical indication: Pain; Angina and cough and dyspnea; Chest pressure; Additional info: Dyspnea/cough TECHNIQUE: Imaging protocol: Radiologic exam of the chest. Views: 1 view. COMPARISON: CR (CHEST, ) 03/12/2024 7:35 PM FINDINGS: Lungs: No focal consolidation. Pleural spaces: No evidence of pneumothorax. No evidence of pleural effusion. Heart/Mediastinum: Cardiomediastinal silhouette is within normal limits. Bones/joints: No evidence of acute osseous abnormality. XR/XR chest 1V portable 10115 IMPRESSION: 1. No acute cardiopulmonary abnormality.
--- NOTE | 2024-03-23 14:59 | ECG_ITS ---
[facility] Test Date: 2024-03-23 Pat Name: Crystal Pierre Department: Room: Gender: Female Patient Monitor: : 1965 Requested By: Joshua Garcia Order Number: [id number] Reading MD: MARISA OLSEN Measurements Intervals [place] Rate: 54 P: 51 MN: 138 QRS: 43 QRSD: 102 T: 55 QT: 431 QTc: 412 Interpretive Statements SINUS BRADYCARDIA POSSIBLE RIGHT VENTRICULAR CONDUCTION DELAY [RSR (QR) IN V1/V2] Compared to ECG 03/12/2024 19:58:56 Sinus rhythm no longer present Electronically Signed On 03-23-2024 19:14:18 ATHLETICS TEACHER by MARISA OLSEN [id number]
[2024-03-23 15:01] VITALS: BP 113/60; PULSE 61; RESP 18; TEMP 36.7; O2SAT 95; BMI 37.5
[2024-03-23 15:24] LABS: Basophils # 0.1 10^3/uL (0.0-0.1); Eosinophils # 0.2 10^3/uL (0.0-0.8); Hematocrit 39.4 % (36-47); Lymphocytes # 2.6 10^3/uL (0.8-4.8); Lymphocytes % 36.7 %; Mean Corpuscular HGB Conc 30.5 g/dL (30-55); Mean Corpuscular Hemoglobin 29.5 pg (27-33); Mean Corpuscular Volume 96.8 fl (85-98); Mean Platelet Volume 9.8 fL (7.4-10.4); Monocytes # 0.7 10^3/uL (0.2-0.9); Neutrophils # 3.47 10^3/uL (1.8-7.7); Neutrophils % 48.7 %; Nucleated Red Blood Cells % 0 %; Platelet Count 259 10^3/cmm (157-399); Red Blood Count 4.07 10^6/uL (3.85-5.65); Red Cell Distribution Width 13.7 % (12.1-15.1); White Blood Count 7.11 10^3/uL (3.29-11.43)
[2024-03-23 15:41] LABS: Alanine Aminotransferase 14 U/L (0-33); Albumin Level 4.1 g/dL (3.5-5.2); Alkaline Phosphatase 90 U/L (35-105); Blood Urea Nitrogen 17 mg/dL (6-20); Calcium 8.8 mg/dL (8.5-10.5); Carbon Dioxide 33 mmol/L (22-29); Chloride 97 mmol/L (98-107); Creatinine Clr Calc Pharmacy 76.9827; Globulin 2.4 g/dL (1.3-4.6); Glomerular Filtration Rate 56.7 mL/min (90-130); Glucose 87 mg/dL (65-115); Osmolality Calculated 291 mOsm/kg (285-295); Sodium 140 mmol/L (136-145); Total Bilirubin 0.8 mg/dL (0.15-1.2); Total Protein 6.5 g/dL (6.6-8.7)
[2024-03-23 15:42] LABS: Anion Gap 14.4 (5-19); Aspartate Amino Transferase 19 U/L (0-32); Potassium 4.4 mmol/L (3.5-5.1)
[2024-03-23 15:43] LABS: Troponin(5th) Baseline 24 ng/L (0-10)
--- NOTE | 2024-03-23 15:54 | W.ED.CHESTPA ---
HPI - Chest Pain General: Chief Complaint: Chest Pain Stated Complaint: chest pain Time Seen by Provider: 03/23/24 14:58 History of Present Illness: 58-year-old female presents emergency room complaining of chest pain. She states she has had it for several months. It got worse today after she was smoking a cigarette. She is seeing cardiology she has had workup she is scheduled she tells me for a echocardiogram. She reports wearing 2 L of oxygen at baseline however when I took her off of the oxygen in the room her oxygen saturation remained at 94% while at rest. She is not having any active chest pain now. She has had slight increase in cough recently. No vomiting no diarrhea no associated diaphoresis with the episodes of chest discomfort. Associated symptoms: Deny abdominal pain, dyspnea or fever(s) Related Data Home Medications ?Medication ?Instructions ?Recorded ?Confirmed aspirin 81 mg tablet,delayed 81 mg PO QAM 02/15/19 03/01/24 release (Adult Aspirin Regimen) levetiracetam 250 mg tablet 250 mg PO BID 02/15/19 03/01/24 duloxetine 60 mg capsule,delayed 60 mg PO QAM 04/05/21 03/01/24 release trazodone 50 mg tablet 100 mg PO BEDTIME 04/05/21 03/01/24 montelukast 10 mg tablet 10 mg PO DAILY 03/15/23 03/01/24 sucralfate 1 gram tablet 1 g PO TID 03/15/23 03/01/24 albuterol sulfate 2.5 mg/3 mL 2.5 mg inhalation QID PRN 03/17/23 03/01/24 (0.083 %) solution for nebulization SHORTNESS OF BREATH fluticasone propionate 50 1 spray intranasal BID 06/09/23 03/01/24 mcg/actuation nasal spray,suspension potassium chloride 20 mEq 20 meq PO DAILY 06/09/23 03/01/24 tablet,extended release(part/cryst) vibegron 75 mg tablet (Gemtesa) 75 mg PO DAILY 06/09/23 03/01/24 spironolactone 25 mg tablet 25 mg PO BEDTIME 06/22/23 03/01/24 gabapentin 300 mg capsule 300 mg PO TID 08/07/23 03/01/24 levothyroxine 100 mcg tablet 100 mcg PO QAM 08/07/23 03/01/24 albuterol sulfate 90 mcg/actuation 2 puff inhalation Q6H PRN 01/19/24 03/01/24 aerosol inhaler Shortness Of Breath Or Wheezing Previous Rx's ?Medication ?Instructions ?Recorded atorvastatin 20 mg tablet 40 mg (2 x 20 mg) PO BEDTIME #60 06/10/23 tabs metoprolol succinate 25 mg 50 mg (2 x 25 mg) PO DAILY #180 09/18/23 tablet,extended release 24 hr tabs (Toprol XL) bumetanide 2 mg tablet 2 mg PO DAILY #90 tabs 03/01/24 isosorbide mononitrate 30 mg 30 mg PO DAILY #90 tabs 03/01/24 tablet,extended release 24 hr ketorolac 10 mg tablet 10 mg PO TID PRN pain #10 tabs 03/04/24 Allergies Allergy/AdvReac Type Severity Reaction Status Date / Time chlorpromazine Allergy Unknown ALGY-Rash Verified 03/12/24 19:47 diphenhydramine Allergy Unknown Unknown Verified 03/12/24 19:47 Iodinated Contrast Media Allergy Unknown ALGY-Hives Verified 03/12/24 19:47 tramadol Allergy Unknown Verified 03/12/24 19:47 amoxicillin AdvReac Unknown ADR-Nausea Verified 03/12/24 19:47 codeine AdvReac Unknown ADR-Vomitin Verified 03/12/24 19:47 g Penicillins AdvReac Unknown ADR-Vomitin Verified 03/12/24 19:47 g Review of Systems Const: Denies: fever(s) or chills Card: Reports: chest pain Resp: Denies: dyspnea GI: Denies: abdominal pain : Denies: dysuria, urinary frequency or urinary urgency Musc: Denies: neck pain or back pain Skin/Breast: Denies: rash PFSH ED PFSH: Medical History Major depressive disorder, single episode, severe without psychotic features Sleep apnea Psychiatric care Diastolic heart failure Chest pain Lower extremity edema Atypical chest pain Cervical radiculopathy Pain of hand Diastolic CHF 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 Other Adopted Social History Smoking and tobacco/nicotine status: current every day tobacco/nicotine user Quit status (tobacco/nicotine): has quit using Year quit tobacco: 2018- ciggs/day Alcohol intake: never Substance/Drug Use: never Lives independently: Yes Household members: none Housing: Apartment Current occupational status: disabled Do you think of yourself as: Straight/Heterosexual Current gender identity: Female Physical Exam Const: COMMON NORMALS: no acute distress GENERAL APPEARANCE: cooperative and comfortable ORIENTATION/CONSCIOUSNESS: Yes awake, Yes oriented to person, Yes oriented to place and Yes oriented to time HENMT: COMMON NORMALS: normocephalic, atraumatic and hearing grossly normal bilaterally HEAD & SCALP: normocephalic and atraumatic Resp: COMMON NORMALS: normal respiratory effort, No retractions, No use of accessory muscles and clear to auscultation bilaterally AUSCULTATION: clear to auscultation bilaterally Cardio: COMMON NORMALS: regular rate, regular rhythm and No murmurs present (Cardio) RATE: regular rate RHYTHM: regular rhythm GI: COMMON NORMALS: Soft to palpation and No hepatosplenomegaly present AUSCULTATION: Yes normoactive bowel sounds PALPATION: Yes Soft to palpation, No Tenderness to palpation present (GI), No Guarding due to palpation present (GI) and Yes No hepatosplenomegaly present Extremity: COMMON NORMALS: normal to inspection, capillary refill normal, no clubbing, cyanosis or edema, no calf tenderness and no pedal edema Neuro: SENSORIUM/ORIENTATION: Yes oriented to person, Yes oriented to place and Yes oriented to time Skin: COMMON NORMALS: no rashes or lesions noted GENERAL SKIN EXAM: no rashes or lesions noted Course Vital Signs: Vital signs: Vital Signs Temperature 98.1 F 03/23/24 15:01 Pulse Rate 61 03/23/24 15:01 Respiratory Rate 18 03/23/24 15:01 Blood Pressure 113/60 03/23/24 15:01 Pulse Oximetry 95 03/23/24 15:01 Oxygen Delivery Me thod Nasal Cannula 03/23/24 15:01 Oxygen Flow Rate 2 03/23/24 15:01 MDM - Chest Pain Medical Decision Making Cardiac enzymes and EKG are normal. Troponins trended negative. Will discharge patient home have her follow-up with her primary care doctor. Medical Records I reviewed the patient's medical records. Lab Data I reviewed the patient's lab results. 03/23/24 15:18 03/23/24 15:18 Radiology Impressions Chest X-Ray 03/23/24 14:58 IMPRESSION: 1. No acute cardiopulmonary abnormality. Laboratory Results WBC 7.11 10^3/uL (3.29-11.43) 03/23/24 15:18 RBC 4.07 10^6/uL (3.85-5.65) 03/23/24 15:18 Hgb 12.00 g/dL (11.27-16.99) 03/23/24 15:18 Hct 39.4 % (36-47) 03/23/24 15:18 MCV 96.8 fl (85-98) 03/23/24 15:18 MCH 29.5 pg (27-33) 03/23/24 15:18 MCHC 30.5 g/dL (30-55) 03/23/24 15:18 RDW 13.7 % (12.1-15.1) 03/23/24 15:18 Plt Count 259 10^3/cmm (157-399) 03/23/24 15:18 MPV 9.8 fL (7.4-10.4) 03/23/24 15:18 Neut % (Auto) 48.7 % 03/23/24 15:18 Lymph % (Auto) 36.7 % 03/23/24 15:18 Gordon % (Auto) 10.0 % 03/23/24 15:18 Eos % (Auto) 3.0 % 03/23/24 15:18 Baso % (Auto) 1.0 % 03/23/24 15:18 Neut # (Auto) 3.47 10^3/uL (1.8-7.7) 03/23/24 15:18 Lymph # (Auto) 2.6 10^3/uL (0.8-4.8) 03/23/24 15:18 Gordon # (Auto) 0.7 10^3/uL (0.2-0.9) 03/23/24 15:18 Eos # (Auto) 0.2 10^3/uL (0.0-0.8) 03/23/24 15:18 Baso # (Auto) 0.1 10^3/uL (0.0-0.1) 03/23/24 15:18 Nucleated RBC % (auto) 0 % 03/23/24 15:18 Nucleated RBCs # 0.0 /100WBC 03/23/24 15:18 Sodium 140 mmol/L (136-145) 03/23/24 15:18 Potassium 4.4 mmol/L (3.5-5.1) 03/23/24 15:18 Chloride 97 mmol/L (98-107) L 03/23/24 15:18 Carbon Dioxide 33 mmol/L (22-29) H 03/23/24 15:18 Anion Gap 14.4 (5-19) 03/23/24 15:18 BUN 17 mg/dL (6-20) 03/23/24 15:18 Creatinine 1.0 mg/dL (0.5-0.9) H 03/23/24 15:18 GFR Calculation 56.7 mL/min (90-130) L 03/23/24 15:18 Glucose 87 mg/dL (65-115) 03/23/24 15:18 Calculated Osmolality 291 mOsm/kg (285-295) 03/23/24 15:18 Calcium 8.8 mg/dL (8.5-10.5) 03/23/24 15:18 Total Bilirubin 0.8 mg/dL (0.15-1.2) 03/23/24 15:18 AST 19 U/L (0-32) 03/23/24 15:18 ALT 14 U/L (0-33) 03/23/24 15:18 Alkaline Phosphatase 90 U/L (35-105) 03/23/24 15:18 Troponin T Baseline 24 ng/L (0-10) H 03/23/24 15:18 Troponin T 120 Minute 21.72 ng/L (0-10) H 03/23/24 17:21 Delta Troponin T -2.28 ABS# (0-10) L 03/23/24 17:21 Total Protein 6.5 g/dL (6.6-8.7) L 03/23/24 15:18 Albumin 4.1 g/dL (3.5-5.2) 03/23/24 15:18 Globulin 2.4 g/dL (1.3-4.6) 03/23/24 15:18 All radiology interpretation(s) finalized by discharge Discharge Plan Discharge Patient Disposition: Home Clinical Impression: Atypical chest pain Condition: Stable Prescriptions: No Action levetiracetam 250 mg tablet 250 mg PO BID aspirin [Adult Aspirin Regimen] 81 mg tablet,delayed release (DR/EC) 81 mg PO QAM bumetanide 2 mg tablet 2 mg PO DAILY Qty: 90 3RF isosorbide mononitrate 30 mg tablet extended release 24 hr 30 mg PO DAILY Qty: 90 1RF metoprolol succinate [Toprol XL] 25 mg tablet extended release 24 hr 50 mg PO DAILY Qty: 180 2RF trazodone 50 mg tablet 100 mg PO BEDTIME duloxetine 60 mg capsule,delayed release(DR/EC) 60 mg PO QAM albuterol sulfate 2.5 mg /3 mL (0.083 %) solution for nebulization 2.5 mg inhalation QID PRN (Reason: SHORTNESS OF BREATH) levothyroxine 100 mcg tablet 100 mcg PO QAM gabapentin 300 mg capsule 300 mg PO TID albuterol sulfate 90 mcg/actuation HFA aerosol inhaler 2 puff INHALATION Q6H PRN (Reason: Shortness Of Breath Or Wheezing) ketorolac 10 mg tablet 10 mg PO TID PRN (Reason: pain) Qty: 10 0RF sucralfate 1 gram tablet 1 g PO TID montelukast 10 mg tablet 10 mg PO DAILY fluticasone propionate 50 mcg/actuation spray,suspension 1 spray INTRANASAL BID Gemtesa 75 mg tablet 75 mg PO DAILY potassium chloride 20 mEq tablet,ER particles/crystals 20 meq PO DAILY atorvastatin 20 mg tablet 40 mg PO BEDTIME Qty: 60 0RF spironolactone 25 mg tablet 25 mg PO BEDTIME Discharge Orders: Discharge ED (Routine); Ordered 03/23/24 Ordered By: Joshua Hale Referrals: Akila Rivera DO [Primary Care Provider] - Discharge Diet: Usual diet Discharge Activity: Resume usual activity Patient Instructions: Opioid Safety, Pain Management Activity Restrictions/Additional Instructions: Thank you for choosing [facility] for your healthcare needs today. It is very important that you follow up as instructed or that you return to the Emergency Department should you have concerns or if your condition changes or worsens in any way. You were seen in the emergency room with sick complaint of chest discomfort. Your cardiac enzymes and EKG did not show any acute changes. Recommend you follow-up your primary care doctor as needed continue all of your current medications. Print Language: Armenian Coding Level of Care Code ED Panel Wirer for Dc Serrato
[2024-03-23 16:37] VITALS: BP 96/63; PULSE 60; O2SAT 94
--- NOTE | 2024-03-23 16:59 | ECG_ITS ---
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
[2024-03-23 17:07] VITALS: BP 110/69; PULSE 61; O2SAT 95
[2024-03-23 17:42] LABS: Troponin 5 2HR 21.72 ng/L (0-10)
[2024-03-23 17:44] LABS: Troponin 5 2HR Delta -2.28 ABS# (0-10)
[2024-03-23 18:00] VITALS: BP 117/75; PULSE 58; O2SAT 95
[2024-03-23 18:36] VITALS: BP 121/80; PULSE 52; O2SAT 94
== END 2024-03-23 18:40 | disposition home or self-care (01) ==
PROVIDERS: Emergency Provider Family Medicine; PCP Family Medicine
DX: R07.89 Other chest pain (principal); Z79.82 Long term (current) use of aspirin; Z72.0 Tobacco use; J44.9 Chronic obstructive pulmonary disease, unspecified; I11.0 Hypertensive heart disease with heart failure; I50.30 Unspecified diastolic (congestive) heart failure
CPT/HCPCS: 71045; 80053; 84484; 85025; 93005; 99285

== ENCOUNTER 2024-03-25 08:57 | Outpatient (CLI) | payer MEDICAID, MEDICARE, SELFPAY ==
[2023-07-19 09:23] VITALS: BP 132/64; BMI 36.8
--- NOTE | 2024-03-25 09:15 | USCV_ITS ---
Crystal Pierre Age: 58 Gender: F : 1965 Exam Date: 03/25/2024 09:31 Ordering Phys: Vickie Sales NP Technologist: [place]am [place] [facility] [place] Indication: copd,sob BP: 163 / 128 HR: 61 Rhythm: Sinus Technical Quality: Adequate MEASUREMENTS (Male / Female) Normal Values 2D ECHO LVOT Diameter 2.0 cm LV Ejection Fraction MOD 4C 64.4 % LV Ejection Fraction MOD 2C 70.1 % LV Ejection Fraction 2C AL 69.3 % LA Diameter 3.3 cm RA Systolic Volume 4C AL 29.6 ml RA Systolic Volume 4C MOD 29.1 ml LA Sys Volume AL 47.8 cm cubed LA Sys Volume Index AL 20.7 cm cubed/m squared Aorta at Sinotubular Diameter 2.2 cm IVC Diameter 1.6 cm M-MODE LA Ao Ratio MM 2.1 AV Cusp Separation MM 1.7 cm DOPPLER AV Peak Velocity 212.0 cm/s LVOT Peak Velocity 154.0 cm/s AV Area Cont Eq vti 2.6 cm squared AV Area Cont Eq pk 2.4 cm squared MV Peak Velocity 109.0 cm/s MV Area PHT 3.5 cm squared Mitral E to A Ratio 0.8 TR Peak Velocity 266.0 cm/s TR Peak Gradient 28.3 mmHg TV Peak E Velocity 75.0 cm/s PV Peak Velocity 102.5 cm/s FINDINGS Left Ventricle Normal left ventricular size, systolic function and wall thickness, with no regional wall motion abnormalities. Left ventricular ejection fraction is estimated at 60 %. Grade I/IV diastolic dysfunction (abnormal relaxation filling pattern), normal to mildly elevated filling pressures. Right Ventricle The right ventricle is normal in size and function. Right Atrium The right atrium is normal in size. Left Atrium The left atrium is normal in size. Mitral Valve Mildly thickened mitral valve. No mitral valve stenosis. Mild mitral valve regurgitation. Aortic Valve Moderate aortic valve calcification. No aortic valve stenosis. Mild aortic valve regurgitation. Tricuspid Valve Structurally normal tricuspid valve without significant stenosis or regurgitation. Pulmonary artery systolic pressure is normal. Pulmonic Valve Structurally normal pulmonic valve without significant stenosis. There is no pulmonic regurgitation. Pericardium Normal pericardium without effusion. Aorta Normal ascending aorta dimension. IVC The inferior vena cava appears normal. CONCLUSIONS Normal left ventricular size, systolic function and wall thickness, with no regional wall motion abnormalities. Left ventricular ejection fraction is estimated at 60 %. Grade I/IV diastolic dysfunction (abnormal relaxation filling pattern), normal to mildly elevated filling pressures. Mildly thickened mitral valve. No mitral valve stenosis. Mild mitral valve regurgitation. Right atrial pressure is around 5 mm of mercury. Carla Adams MD (Electronically Signed) Final Date: 03 April 2024 22:19 S
== END 2024-03-25 08:58 | disposition home or self-care (01) ==
LOC: RAD 09:01
PROVIDERS: PCP Family Medicine; Visit Provider Nurse Practitioner Family
DX: I35.1 Nonrheumatic aortic (valve) insufficiency (principal); R93.1 Abnormal findings on diagnostic imaging of heart and coronary circulation; I34.0 Nonrheumatic mitral (valve) insufficiency; I35.8 Other nonrheumatic aortic valve disorders
CPT/HCPCS: 93306

== ENCOUNTER → 2024-04-11 11:16 | Outpatient (BNVA) | payer MEDICARE, MEDICAID, SELFPAY ==
[2023-07-19 09:23] VITALS: BP 132/64; BMI 36.8
== END ==
PROVIDERS: PCP Family Medicine; Visit Provider Nurse Practitioner Family
DX: I11.0 Hypertensive heart disease with heart failure (principal); I50.32 Chronic diastolic (congestive) heart failure; R60.9 Edema, unspecified; I35.1 Nonrheumatic aortic (valve) insufficiency
CPT/HCPCS: 99213

== ENCOUNTER 2024-04-13 22:55 | Emergency (ER) | payer MEDICARE, MEDICAID, SELFPAY ==
[2023-07-19 09:23] VITALS: BP 132/64; BMI 36.8
--- NOTE | 2024-04-13 23:02 | XRR_ITS ---
PROCEDURE INFORMATION: Exam: XR Chest Exam date and time: 04/13/2024 11:12 PM Age: 58 years old Clinical indication: Chest pressure; Chest pain; Cough TECHNIQUE: Imaging protocol: Radiologic exam of the chest. Views: 1 view. COMPARISON: CR (CHEST, ) 03/23/2024 3:29 PM FINDINGS: Lungs: Unremarkable. Pleural spaces: Unremarkable. Heart/Mediastinum: Nonenlarged heart. Bones/joints: No acute fracture. XR/XR chest 1V portable [id number] IMPRESSION: No acute abnormality.
--- NOTE | 2024-04-13 23:02 | ECG_ITS ---
[employer] Test Date: 2024-04-13 Pat Name: Crystal Pierre Department: Room: Gender: Female Child Nutrition Manager: : 1965 Requested By: Raul Burroughs Order Number: [id number] Khanna MD: MARISA OSLEN Measurements Intervals [place] Rate: 71 P: 63 [place]: 145 QRS: 41 QRSD: 110 T: 61 QT: 401 QTc: 439 Interpretive Statements SINUS RHYTHM WITH SINUS ARRHYTHMIA INCOMPLETE RIGHT BUNDLE BRANCH BLOCK [90+ ms QRS DURATION, TERMINAL R IN V1/V2, 40+ ms S IN I/aVL/V4/V5/V6] Compared to ECG 03/23/2024 17:03:07 Incomplete right bundle-branch block now present Sinus bradycardia no longer present Electronically Signed On 04-15-2024 22:17:21 CDT by MARISA OLSEN [id number]
[2024-04-13 23:07] VITALS: BP 119/64; PULSE 72; RESP 18; O2SAT 98
[2024-04-13 23:10] VITALS: BP 129/70; PULSE 74; O2SAT 97
--- NOTE | 2024-04-13 23:24 | W.ED.CHESTPA ---
Documented by User: BRITTNEY Vale 04/14/24 00:31 HPI - Chest Pain General: Chief Complaint: Chest Pain Stated Complaint: chest pain Time Seen by Provider: 04/13/24 22:56 History of Present Illness: 58-year-old female comes in today for complaints of chest discomfort, nausea, vomiting, and diarrhea. Patient appears nontoxic. Patient appears no acute distress. Patient reports no fever. Patient has a history of hypothyroidism, high cholesterol, major depression, intellectual disability. Related Data Home Medications ?Medication ?Instructions ?Recorded ?Confirmed aspirin 81 mg tablet,delayed 81 mg PO QAM 02/15/19 04/11/24 release (Adult Aspirin Regimen) levetiracetam 250 mg tablet 250 mg PO BID 02/15/19 04/11/24 duloxetine 60 mg capsule,delayed 60 mg PO QAM 04/05/21 04/11/24 release trazodone 50 mg tablet 100 mg PO BEDTIME 04/05/21 04/11/24 montelukast 10 mg tablet 10 mg PO DAILY 03/15/23 04/11/24 sucralfate 1 gram tablet 1 g PO TID 03/15/23 04/11/24 albuterol sulfate 2.5 mg/3 mL 2.5 mg inhalation QID PRN 03/17/23 04/11/24 (0.083 %) solution for nebulization SHORTNESS OF BREATH fluticasone propionate 50 1 spray intranasal BID 06/09/23 04/11/24 mcg/actuation nasal spray,suspension potassium chloride 20 mEq 20 meq PO DAILY 06/09/23 04/11/24 tablet,extended release(part/cryst) vibegron 75 mg tablet (Gemtesa) 75 mg PO DAILY 06/09/23 04/11/24 spironolactone 25 mg tablet 25 mg PO BEDTIME 06/22/23 04/11/24 gabapentin 300 mg capsule 300 mg PO TID 08/07/23 04/11/24 levothyroxine 100 mcg tablet 100 mcg PO QAM 08/07/23 04/11/24 albuterol sulfate 90 mcg/actuation 2 puff inhalation Q6H PRN 01/19/24 04/11/24 aerosol inhaler Shortness Of Breath Or Wheezing Previous Rx's ?Medication ?Instructions ?Recorded atorvastatin 20 mg tablet 40 mg (2 x 20 mg) PO BEDTIME #60 06/10/23 tabs metoprolol succinate 25 mg 50 mg (2 x 25 mg) PO DAILY #180 09/18/23 tablet,extended release 24 hr tabs (Toprol XL) bumetanide 2 mg tablet 2 mg PO DAILY #90 tabs 03/01/24 isosorbide mononitrate 30 mg 30 mg PO DAILY #90 tabs 03/01/24 tablet,extended release 24 hr ketorolac 10 mg tablet 10 mg PO TID PRN pain #10 tabs 03/04/24 Allergies Allergy/AdvReac Type Severity Reaction Status Date / Time chlorpromazine Allergy Unknown ALGY-Rash Verified 04/11/24 11:25 diphenhydramine Allergy Unknown Unknown Verified 04/11/24 11:25 Iodinated Contrast Media Allergy Unknown ALGY-Hives Verified 04/11/24 11:25 tramadol Allergy Unknown Verified 04/11/24 11:25 amoxicillin AdvReac Unknown ADR-Nausea Verified 04/11/24 11:25 codeine AdvReac Unknown ADR-Vomitin Verified 04/11/24 11:25 g Penicillins AdvReac Unknown ADR-Vomitin Verified 04/11/24 11:25 g Review of Systems General: Reports: 10 or more systems reviewed and unremarkable except in HPI and below PFSH ED PFSH: Medical History Major depressive disorder, single episode, severe without psychotic features Sleep apnea Psychiatric care Diastolic heart failure Chest pain Lower extremity edema Atypical chest pain Cervical radiculopathy Pain of hand Diastolic CHF 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 Other Adopted Social History Smoking and tobacco/nicotine status: current every day tobacco/nicotine user Quit status (tobacco/nicotine): has quit using Year quit tobacco: 2019 - 1-5 ciggs/day Alcohol intake: never Substance/Drug Use: never Lives independently: Yes Household members: none Housing: Apartment Current occupational status: disabled Do you think of yourself as: Straight/Heterosexual Current gender identity: Female Physical Exam Const: COMMON NORMALS: patient oriented x3 and alert GENERAL APPEARANCE: cooperative HENMT: COMMON NORMALS: normocephalic, TM's normal bilaterally and Normal external nose present HEAD & SCALP: normal to inspection and normocephalic NOSE: Normal external nose present TYMPANIC MEMBRANE: TM's normal bilaterally MOUTH: Normal oral and palatal mucosa present THROAT: posterior oropharynx normal Eye: GENERAL EYE: appearance normal, both eyes and all related structures Neck/C-Spine: COMMON NORMALS: full ROM Lymph: LYMPHATIC: no lymphadenopathy noted Chest: COMMONS NORMALS: normal inspection of the chest Resp: COMMON NORMALS: normal respiratory effort EFFORT & INSPECTION: Yes able to speak in complete sentences Cardio: COMMON NORMALS: regular rate and regular rhythm RATE: regular rate RHYTHM: regular rhythm GI: COMMON NORMALS: non-tender : COMMON NORMALS: Yes no CVA tenderness BLADDER/KIDNEY EXAM: Yes no CVA tenderness Back/Pelvis: COMMON NORMALS: no CVA tenderness and thoracic and lumbar spine normal to inspection Extremity: COMMON NORMALS: normal to inspection Neuro: COMMON NORMALS: patient oriented x3 and moves all extremities SENSORIUM/ORIENTATION: Yes alert Psych: COMMON NORMALS: mental status grossly normal and cooperative Skin: COMMON NORMALS: no rashes or lesions noted GENERAL SKIN EXAM: no rashes or lesions noted Course Vital Signs: Vital signs: Vital Signs Pulse Rate 72 04/14/24 01:02 Respiratory Rate 18 04/13/24 23:07 Blood Pressure 115/62 04/14/24 01:02 Pulse Oximetry 98 04/14/24 01:02 MDM - Chest Pain Medical Decision Making 58-year-old female comes in today for complaints of chest discomfort, nausea, vomiting, and some diarrhea. Patient appears nontoxic. Patient chronically wears oxygen. Patient is morbidly obese. Skin is warm and dry. Turgor is normal. Vital signs are normal. Differential diagnosis dehydration, ACS, gastroenteritis, influenza. Laboratory values were unchanged from prior exams. Patient appears to have some mild chronic kidney disease with a creatinine 1.1. Troponin was stable at 24. Chest x-ray was normal. Patient was given a Zofran and a Tylenol for her discomfort. Patient had improvement of symptoms. Patient was discharged home with recommendations to follow-up with primary care or cardiology. Patient has an appointment to see her primary care on the and does have a scheduled stress test to be completed within the next week or 2. I was unable to find this appointment but was given this information by internal med, Dr. Leblanc. Patient will continue routine treatment and follow-up. Lab Data 04/13/24 23:43 04/13/24 23:43 Radiology Impressions Chest X-Ray 04/13/24 23:02 IMPRESSION: No acute abnormality. Laboratory Results WBC 5.85 10^3/uL (3.29-11.43) 04/13/24 23:43 RBC 4.00 10^6/uL (3.85-5.65) 04/13/24 23:43 Hgb 12.00 g/dL (11.27-16.99) 04/13/24 23:43 Hct 38.8 % (36-47) 04/13/24 23:43 MCV 97.0 fl (85-98) 04/13/24 23:43 MCH 30.0 pg (27-33) 04/13/24 23:43 MCHC 30.9 g/dL (30-55) 04/13/24 23:43 RDW 13.3 % (12.1-15.1) 04/13/24 23:43 Plt Count 181 10^3/cmm (157-399) 04/13/24 23:43 MPV 10.0 fL (7.4-10.4) 04/13/24 23:43 Neut % (Auto) 38.9 % 04/13/24 23:43 Lymph % (Auto) 46.2 % 04/13/24 23:43 Green % (Auto) 9.9 % 04/13/24 23:43 Eos % (Auto) 4.1 % 04/13/24 23:43 Baso % (Auto) 0.7 % 04/13/24 23:43 Neut # (Auto) 2.28 10^3/uL (1.8-7.7) 04/13/24 23:43 Lymph # (Auto) 2.7 10^3/uL (0.8-4.8) 04/13/24 23:43 Green # (Auto) 0.6 10^3/uL (0.2-0.9) 04/13/24 23:43 Eos # (Auto) 0.2 10^3/uL (0.0-0.8) 04/13/24 23:43 Baso # (Auto) 0.0 10^3/uL (0.0-0.1) 04/13/24 23:43 Nucleated RBC % (auto) 0 % 04/13/24 23:43 Nucleated RBCs # 0.0 /100WBC 04/13/24 23:43 Sodium 139 mmol/L (136-145) 04/13/24 23:43 Potassium 3.6 mmol/L (3.5-5.1) 04/13/24 23:43 Chloride 99 mmol/L (98-107) 04/13/24 23:43 Carbon Dioxide 31 mmol/L (22-29) H 04/13/24 23:43 Anion Gap 12.6 (5-19) 04/13/24 23:43 BUN 13 mg/dL (6-20) 04/13/24 23:43 Creatinine 1.1 mg/dL (0.5-0.9) H 04/13/24 23:43 GFR Calculation 50.8 mL/min (90-130) L 04/13/24 23:43 Glucose 102 mg/dL (65-115) 04/13/24 23:43 Calculated Osmolality 288 mOsm/kg (285-295) 04/13/24 23:43 Calcium 8.3 mg/dL (8.5-10.5) L 04/13/24 23:43 Total Bilirubin 0.8 mg/dL (0.15-1.2) 04/13/24 23:43 AST 22 U/L (0-32) 04/13/24 23:43 ALT 13 U/L (0-33) 04/13/24 23:43 Alkaline Phosphatase 83 U/L (35-105) 04/13/24 23:43 Troponin T Baseline 23 ng/L (0-10) H 04/13/24 23:43 Total Protein 6.3 g/dL (6.6-8.7) L 04/13/24 23:43 Albumin 3.9 g/dL (3.5-5.2) 04/13/24 23:43 Globulin 2.4 g/dL (1.3-4.6) 04/13/24 23:43 Lipase 29 U/L (13-60) 04/13/24 23:43 All radiology interpretation(s) finalized by discharge Discharge Plan Discharge Patient Disposition: Home Clinical Impression: Chest pain Qualifiers: Chest pain type: unspecified Qualified Code(s): R07.9 - Chest pain, unspecified GERD (gastroesophageal reflux disease) Qualifiers: Esophagitis presence: esophagitis presence not specified Qualified Code(s): K21.9 - Gastro-esophageal reflux disease without esophagitis Condition: Stable Prescriptions: No Action levetiracetam 250 mg tablet 250 mg PO BID aspirin [Adult Aspirin Regimen] 81 mg tablet,delayed release (DR/EC) 81 mg PO QAM bumetanide 2 mg tablet 2 mg PO DAILY Qty: 90 3RF isosorbide mononitrate 30 mg tablet extended release 24 hr 30 mg PO DAILY Qty: 90 1RF metoprolol succinate [Toprol XL] 25 mg tablet extended release 24 hr 50 mg PO DAILY Qty: 180 2RF trazodone 50 mg tablet 100 mg PO BEDTIME duloxetine 60 mg capsule,delayed release(DR/EC) 60 mg PO QAM albuterol sulfate 2.5 mg /3 mL (0.083 %) solution for nebulization 2.5 mg inhalation QID PRN (Reason: SHORTNESS OF BREATH) levothyroxine 100 mcg tablet 100 mcg PO QAM gabapentin 300 mg capsule 300 mg PO TID albuterol sulfate 90 mcg/actuation HFA aerosol inhaler 2 puff INHALATION Q6H PRN (Reason: Shortness Of Breath Or Wheezing) ketorolac 10 mg tablet 10 mg PO TID PRN (Reason: pain) Qty: 10 0RF sucralfate 1 gram tablet 1 g PO TID montelukast 10 mg tablet 10 mg PO DAILY fluticasone propionate 50 mcg/actuation spray,suspension 1 spray INTRANASAL BID Gemtesa 75 mg tablet 75 mg PO DAILY potassium chloride 20 mEq tablet,ER particles/crystals 20 meq PO DAILY atorvastatin 20 mg tablet 40 mg PO BEDTIME Qty: 60 0RF spironolactone 25 mg tablet 25 mg PO BEDTIME Discharge Orders: Discharge ED (Routine); Ordered 04/14/24 Ordered By: Raul Troncoso Referrals: Akila Rivera DO [Primary Care Provider] - Patient Instructions: Pain Management Activity Restrictions/Additional Instructions: Home and rest. Continue with routine medications as directed. Drink plenty water and fluids. Follow-up with primary care. Print Language: Turkmen Coding Level of Care Code ED Special Education Teaching Assistant for Chg Fwd Documented by User: Odilon Gama DO 04/14/24 03:25 HPI - Chest Pain General: Chief Complaint: Chest Pain Stated Complaint: chest pain Time Seen by Provider: 04/13/24 22:56 Related Data Home Medications ?Medication ?Instructions ?Recorded ?Confirmed aspirin 81 mg tablet,delayed 81 mg PO QAM 02/15/19 04/11/24 release (Adult Aspirin Regimen) levetiracetam 250 mg tablet 250 mg PO BID 02/15/19 04/11/24 duloxetine 60 mg capsule,delayed 60 mg PO QAM 04/05/21 04/11/24 release trazodone 50 mg tablet 100 mg PO BEDTIME 04/05/21 04/11/24 montelukast 10 mg tablet 10 mg PO DAILY 03/15/23 04/11/24 sucralfate 1 gram tablet 1 g PO TID 03/15/23 04/11/24 albuterol sulfate 2.5 mg/3 mL 2.5 mg inhalation QID PRN 03/17/23 04/11/24 (0.083 %) solution for nebulization SHORTNESS OF BREATH fluticasone propionate 50 1 spray intranasal BID 06/09/23 04/11/24 mcg/actuation nasal spray,suspension potassium chloride 20 mEq 20 meq PO DAILY 06/09/23 04/11/24 tablet,extended release(part/cryst) vibegron 75 mg tablet (Gemtesa) 75 mg PO DAILY 06/09/23 04/11/24 spironolactone 25 mg tablet 25 mg PO BEDTIME 06/22/23 04/11/24 gabapentin 300 mg capsule 300 mg PO TID 08/07/23 04/11/24 levothyroxine 100 mcg tablet 100 mcg PO QAM 08/07/23 04/11/24 albuterol sulfate 90 mcg/actuation 2 puff inhalation Q6H PRN 01/19/24 04/11/24 aerosol inhaler Shortness Of Breath Or Wheezing Previous Rx's ?Medication ?Instructions ?Recorded atorvastatin 20 mg tablet 40 mg (2 x 20 mg) PO BEDTIME #60 06/10/23 tabs metoprolol succinate 25 mg 50 mg (2 x 25 mg) PO DAILY #180 09/18/23 tablet,extended release 24 hr tabs (Toprol XL) bumetanide 2 mg tablet 2 mg PO DAILY #90 tabs 03/01/24 isosorbide mononitrate 30 mg 30 mg PO DAILY #90 tabs 03/01/24 tablet,extended release 24 hr ketorolac 10 mg tablet 10 mg PO TID PRN pain #10 tabs 03/04/24 Allergies Allergy/AdvReac Type Severity Reaction Status Date / Time chlorpromazine Allergy Unknown ALGY-Rash Verified 04/11/24 11:25 diphenhydramine Allergy Unknown Unknown Verified 04/11/24 11:25 Iodinated Contrast Media Allergy Unknown ALGY-Hives Verified 04/11/24 11:25 tramadol Allergy Unknown Verified 04/11/24 11:25 amoxicillin AdvReac Unknown ADR-Nausea Verified 04/11/24 11:25 codeine AdvReac Unknown ADR-Vomitin Verified 04/11/24 11:25 g Penicillins AdvReac Unknown ADR-Vomitin Verified 04/11/24 11:25 g PFSH ED PFSH: Medical History Major depressive disorder, single episode, severe without psychotic features Sleep apnea Psychiatric care Diastolic heart failure Chest pain Lower extremity edema Atypical chest pain Cervical radiculopathy Pain of hand Diastolic CHF 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 Other Adopted Social History Smoking and tobacco/nicotine status: current every day tobacco/nicotine user Quit status (tobacco/nicotine): has quit using Year quit tobacco: 2019 - -5 ciggs/day Alcohol intake: never Substance/Drug Use: never Lives independently: Yes Household members: none Housing: Apartment Current occupational status: disabled Do you think of yourself as: Straight/Heterosexual Current gender identity: Female Course Vital Signs: Vital signs: Vital Signs Pulse Rate 72 04/14/24 01:02 Respiratory Rate 18 04/13/24 23:07 Blood Pressure 115/62 04/14/24 01:02 Pulse Oximetry 98 04/14/24 01:02 MDM - Chest Pain Medical Decision Making 58-year-old female comes in today for complaints of chest discomfort, nausea, vomiting, and some diarrhea. Patient appears nontoxic. Patient chronically wears oxygen. Patient is morbidly obese. Skin is warm and dry. Turgor is normal. Vital signs are normal. Differential diagnosis dehydration, ACS, gastroenteritis, influenza. Laboratory values were unchanged from prior exams. Patient appears to have some mild chronic kidney disease with a creatinine 1.1. Troponin was stable at 24. Chest x-ray was normal. Patient was given a Zofran and a Tylenol for her discomfort. Patient had improvement of symptoms. Patient was discharged home with recommendations to follow-up with primary care or cardiology. Patient has an appointment to see her primary care on the and does have a scheduled stress test to be completed within the next week or 2. I was unable to find this appointment but was given this information by internal med, Dr. Leblanc. Patient will continue routine treatment and follow-up. This patient was originally seen by BRITTNEY Morris.? I agree with his history, evaluation, and treatment. Lab Data 04/13/24 23:43 04/13/24 23:43 Radiology Impressions Chest X-Ray 04/13/24 23:02 IMPRESSION: No acute abnormality. Laboratory Results WBC 5.85 10^3/uL (3.29-11.43) 04/13/24 23:43 RBC 4.00 10^6/uL (3.85-5.65) 04/13/24 23:43 Hgb 12.00 g/dL (11.27-16.99) 04/13/24 23:43 Hct 38.8 % (36-47) 04/13/24 23:43 MCV 97.0 fl (85-98) 04/13/24 23:43 MCH 30.0 pg (27-33) 04/13/24 23:43 MCHC 30.9 g/dL (30-55) 04/13/24 23:43 RDW 13.3 % (12.1-15.1) 04/13/24 23:43 Plt Count 181 10^3/cmm (157-399) 04/13/24 23:43 MPV 10.0 fL (7.4-10.4) 04/13/24 23:43 Neut % (Auto) 38.9 % 04/13/24 23:43 Lymph % (Auto) 46.2 % 04/13/24 23:43 Green % (Auto) 9.9 % 04/13/24 23:43 Eos % (Auto) 4.1 % 04/13/24 23:43 Baso % (Auto) 0.7 % 04/13/24 23:43 Neut # (Auto) 2.28 10^3/uL (1.8-7.7) 04/13/24 23:43 Lymph # (Auto) 2.7 10^3/uL (0.8-4.8) 04/13/24 23:43 Green # (Auto) 0.6 10^3/uL (0.2-0.9) 04/13/24 23:43 Eos # (Auto) 0.2 10^3/uL (0.0-0.8) 04/13/24 23:43 Baso # (Auto) 0.0 10^3/uL (0.0-0.1) 04/13/24 23:43 Nucleated RBC % (auto) 0 % 04/13/24 23:43 Nucleated RBCs # 0.0 /100WBC 04/13/24 23:43 Sodium 139 mmol/L (136-145) 04/13/24 23:43 Potassium 3.6 mmol/L (3.5-5.1) 04/13/24 23:43 Chloride 99 mmol/L (98-107) 04/13/24 23:43 Carbon Dioxide 31 mmol/L (22-29) H 04/13/24 23:43 Anion Gap 12.6 (5-19) 04/13/24 23:43 BUN 13 mg/dL (6-20) 04/13/24 23:43 Creatinine 1.1 mg/dL (0.5-0.9) H 04/13/24 23:43 GFR Calculation 50.8 mL/min (90-130) L 04/13/24 23:43 Glucose 102 mg/dL (65-115) 04/13/24 23:43 Calculated Osmolality 288 mOsm/kg (285-295) 04/13/24 23:43 Calcium 8.3 mg/dL (8.5-10.5) L 04/13/24 23:43 Total Bilirubin 0.8 mg/dL (0.15-1.2) 04/13/24 23:43 AST 22 U/L (0-32) 04/13/24 23:43 ALT 13 U/L (0-33) 04/13/24 23:43 Alkaline Phosphatase 83 U/L (35-105) 04/13/24 23:43 Troponin T Baseline 23 ng/L (0-10) H 04/13/24 23:43 Total Protein 6.3 g/dL (6.6-8.7) L 04/13/24 23:43 Albumin 3.9 g/dL (3.5-5.2) 04/13/24 23:43 Globulin 2.4 g/dL (1.3-4.6) 04/13/24 23:43 Lipase 29 U/L (13-60) 04/13/24 23:43 Discharge Plan Discharge Patient Disposition: Home Clinical Impression: Chest pain Qualifiers: Chest pain type: unspecified Qualified Code(s): R07.9 - Chest pain, unspecified GERD (gastroesophageal reflux disease) Qualifiers: Esophagitis presence: esophagitis presence not specified Qualified Code(s): K21.9 - Gastro-esophageal reflux disease without esophagitis Condition: Stable Prescriptions: No Action levetiracetam 250 mg tablet 250 mg PO BID aspirin [Adult Aspirin Regimen] 81 mg tablet,delayed release (DR/EC) 81 mg PO QAM bumetanide 2 mg tablet 2 mg PO DAILY Qty: 90 3RF isosorbide mononitrate 30 mg tablet extended release 24 hr 30 mg PO DAILY Qty: 90 1RF metoprolol succinate [Toprol XL] 25 mg tablet extended release 24 hr 50 mg PO DAILY Qty: 180 2RF trazodone 50 mg tablet 100 mg PO BEDTIME duloxetine 60 mg capsule,delayed release(DR/EC) 60 mg PO QAM albuterol sulfate 2.5 mg /3 mL (0.083 %) solution for nebulization 2.5 mg inhalation QID PRN (Reason: SHORTNESS OF BREATH) levothyroxine 100 mcg tablet 100 mcg PO QAM gabapentin 300 mg capsule 300 mg PO TID albuterol sulfate 90 mcg/actuation HFA aerosol inhaler 2 puff INHALATION Q6H PRN (Reason: Shortness Of Breath Or Wheezing) ketorolac 10 mg tablet 10 mg PO TID PRN (Reason: pain) Qty: 10 0RF sucralfate 1 gram tablet 1 g PO TID montelukast 10 mg tablet 10 mg PO DAILY fluticasone propionate 50 mcg/actuation spray,suspension 1 spray INTRANASAL BID Gemtesa 75 mg tablet 75 mg PO DAILY potassium chloride 20 mEq tablet,ER particles/crystals 20 meq PO DAILY atorvastatin 20 mg tablet 40 mg PO BEDTIME Qty: 60 0RF spironolactone 25 mg tablet 25 mg PO BEDTIME Discharge Orders: Discharge ED (Routine); Ordered 04/14/24 Ordered By: Raul Troncoso Referrals: Akila Rivera DO [Primary Care Provider] - Patient Instructions: Pain Management Activity Restrictions/Additional Instructions: Home and rest. Continue with routine medications as directed. Drink plenty water and fluids. Follow-up with primary care. Print Language: Turkmen Coding Level of Care Code ED Special Education Teaching Assistant for Chg Rojelio
[2024-04-13] MEDS: ondansetron hcl ODT 4 mg Tab PO (23:42)
[2024-04-13] MEDS: acetaminophen 325 mg Tablet 650 MG PO (23:43)
[2024-04-13 23:51] LABS: Basophils % 0.7 %; Eosinophils # 0.2 10^3/uL (0.0-0.8); Eosinophils % 4.1 %; Hematocrit 38.8 % (36-47); Lymphocytes # 2.7 10^3/uL (0.8-4.8); Lymphocytes % 46.2 %; Mean Corpuscular HGB Conc 30.9 g/dL (30-55); Monocytes # 0.6 10^3/uL (0.2-0.9); Monocytes % 9.9 %; Neutrophils # 2.28 10^3/uL (1.8-7.7); Neutrophils % 38.9 %; Nucleated Red Blood Cells % 0 %; Platelet Count 181 10^3/cmm (157-399); Red Cell Distribution Width 13.3 % (12.1-15.1); White Blood Count 5.85 10^3/uL (3.29-11.43)
[2024-04-13 23:55] VITALS: BP 121/66; PULSE 73; O2SAT 95
[2024-04-14 00:07] LABS: Troponin(5th) Baseline 23 ng/L (0-10)
[2024-04-14 00:08] LABS: Alanine Aminotransferase 13 U/L (0-33); Albumin Level 3.9 g/dL (3.5-5.2); Alkaline Phosphatase 83 U/L (35-105); Anion Gap 12.6 (5-19); Aspartate Amino Transferase 22 U/L (0-32); Blood Urea Nitrogen 13 mg/dL (6-20); Calcium 8.3 mg/dL (8.5-10.5); Carbon Dioxide 31 mmol/L (22-29); Chloride 99 mmol/L (98-107); Globulin 2.4 g/dL (1.3-4.6); Glomerular Filtration Rate 50.8 mL/min (90-130); Glucose 102 mg/dL (65-115); Lipase 29 U/L (13-60); Osmolality Calculated 288 mOsm/kg (285-295); Potassium 3.6 mmol/L (3.5-5.1); Sodium 139 mmol/L (136-145); Total Bilirubin 0.8 mg/dL (0.15-1.2); Total Protein 6.3 g/dL (6.6-8.7)
[2024-04-14 00:55] VITALS: BP 115/62; PULSE 72; O2SAT 98
[2024-04-14 01:02] VITALS: BP 115/62; PULSE 72; O2SAT 98
== END 2024-04-14 00:53 | disposition home or self-care (01) ==
PROVIDERS: Emergency Provider Nurse Practitioner Family; PCP Family Medicine
DX: R07.9 Chest pain, unspecified (principal); K21.9 Gastro-esophageal reflux disease without esophagitis; Z79.82 Long term (current) use of aspirin; Z72.0 Tobacco use; J44.9 Chronic obstructive pulmonary disease, unspecified; I11.0 Hypertensive heart disease with heart failure; I50.30 Unspecified diastolic (congestive) heart failure
CPT/HCPCS: 36415; 71045; 80053; 83690; 84484; 85025; 93005; 99285; Q0162

== ENCOUNTER 2024-04-16 09:48 | Outpatient (CLI) | payer MEDICARE, MEDICAID, SELFPAY ==
[2023-07-19 09:23] VITALS: BP 132/64; BMI 36.8
--- NOTE | 2024-04-16 09:57 | CT_ITS ---
WS: [id number] LDCT LUNG CANCER SCREENING HISTORY: NICOTINE DEPENDENCE,CIGARETTES TECHNIQUE: Axial imaging performed from the apices to 1 cm below the costophrenic angles. Coronal and sagittal reformats are submitted with axial MIP series. All CT scans at [facility] use at least one of these dose optimization techniques: automated exposure control; mA and/or kV adjustment per patient size (includes targeted exams where dose is matched to clinical indication); or iterative reconstruction. DLP: 94.39 mGy.cm DIvol: Mean CTDIvol: 2.30 (mGy) COMPARISON: 02/09/2024 Diagnostic quality: Motion artifact. Poor inspiratory effort. Lungs: Mild pulmonary hyperinflation. No pulmonary mass or nodule or endobronchial lesions identified. Limited by motion artifact. Poor inspiratory effort. Heart: Normal size heart with no pericardial effusion.. Other findings: Mild atherosclerosis thoracic aorta. Dilated pulmonary artery. No mediastinal or hilar adenopathy identified. Prior cholecystectomy. No adrenal mass. CT/CT lung screening 54825 IMPRESSION: LUNG-RADS: 1S-Negative with Significant Findings FOLLOW UP: 12 Month: Continue annual screening with LDCT OTHER FINDINGS (S MODIFIER): Pulmonary hypertension.
== END 2024-04-16 09:49 | disposition home or self-care (01) ==
PROVIDERS: PCP Family Medicine; Visit Provider Family Medicine
DX: Z12.2 Encounter for screening for malignant neoplasm of respiratory organs (principal); F17.210 Nicotine dependence, cigarettes, uncomplicated; R91.8 Other nonspecific abnormal finding of lung field; I70.0 Atherosclerosis of aorta; I28.1 Aneurysm of pulmonary artery; Z90.49 Acquired absence of other specified parts of digestive tract
CPT/HCPCS: 71271

== ENCOUNTER 2024-05-01 08:12 | Outpatient (CLI) | payer MEDICARE, MEDICAID, SELFPAY ==
[2023-07-19 09:23] VITALS: BP 132/64; BMI 36.8
--- NOTE | 2024-05-01 08:40 | ECG_ITS ---
[facility] Test Date: 2024-05-01 Pat Name: Crystal Pierre Department: Room: Gender: Female Intelligence Operations Specialist: : [id number] Requested By: Vickie Sales Order Number: [id number] Clemencia MD: MARISA OLSEN Interpretive Statements Lung unchanged pre/post procedure; Intraprocedure shortess of breath; Symptoms resoled by discharge NOTE: Please note that this is the electrocardiogram portion of the Lexiscan/Sestamibi stress test. The perfusion scan will be documented separately. DATA: Baseline heart rate was 62 beats per minute. Baseline blood pressure was 117/60 millimeters of mercury. Target heart rate was 161. Maximum heart rate achieved was 78. which was 48 % of the predicted target heart rate. Maximum blood pressure was 135/65 millimeters of mercury. The reason for ending the test was completion of the protocol. The patient did not experience any symptoms. ELECTROCARDIOGRAM: BASELINE: Sinus rhythm. Normal axis. Otherwise, no ST-T changes suggestive of ischemia noted. No arrhythmia noted. EXERCISE: After Lexiscan injection, no ST-T changes suggestive of ischemic noted. No arrhythmia noted. CONCLUSION: Please note due to baseline abnormality of the EKG specificity and sensitivity of the EKG portion of LexiScan MIBI stress test will be low 1. EKG not suggestive of ischemia 2. Lexiscan injection unremarkable. 3. Perfusion scan will be documented separately. Electronically Signed On 05-20-2024 11:22:22 CDT by MARISA OLSEN [email or web address]
[2024-05-01 08:41] VITALS: BMI 37.5
--- NOTE | 2024-05-01 08:41 | NMCV_ITS ---
NM aubree perf SPECT r/s* [id number] Crystal Pierre Age: 58 Gender: F : 1965 Exam Date: 05/01/2024 09:25 Ordering Phys: Vickie Sales NP Technologist: PAULINA Heller Exam Location: [facility] Indications: cp STRESS TEST Please see separate stress test report in [facility] for full findings IMAGE PROTOCOL Rest/Stress 1 Lexiscan Day Radiopharmaceutical Dose (mCi) Administration Site Administered by Rest: Tc-99m 10.8 IV PAULINA Carranza Sestamibi Stress:Tc-99m 33 IV PAULINA Carranza Sestamibi Rest: 01-May-2024 60 Discovery 630 Stress: 01-May-2024 30 Discovery 630 0.4mg Lexiscan. Supine position only as patient was unable to lay prone. SPECT RESULTS Technical Quality: Good Raw Data Analysis: Normal Image Corrections: No attenuation or motion correction applied Summed Stress Score: 6 Summed Rest Score: 9 Summed Difference Score: 0 PERFUSION FINDINGS There is a medium to large sized fixed perfusion defect seen in apical, apical lateral and inferolateral rodriguez. This is consistent with medium to large sized area of prior infarct in these territories. No evidence of ischemia FUNCTIONAL RESULTS (calculated via Gated SPECT) Stress Image LV EF (%): 78 Stress EDV (mL):99 TID: 0.82 Stress ESV (mL):22 FUNCTIONAL FINDINGS: There is normal left ventricular systolic function. IMPRESSIONS 1. Abnormal myocardial perfusion imaging with medium to large sized area of prior infarct seen in apical, apical lateral and inferolateral rodriguez. 2. LV systolic function is normal Joseph Wilson MD (Electronically Signed) Final Date: 02 May 2024 10:32 S
[2024-05-01] MEDS: regadenoson 0.4 Mg/5 ml Syringe IVP (09:59)
[2024-05-01 10:16] VITALS: BP 115/55; PULSE 66
== END 2024-05-01 08:13 | disposition home or self-care (01) ==
LOC: CDL 08:13
PROVIDERS: PCP Family Medicine; Visit Provider Nurse Practitioner Family
DX: R07.9 Chest pain, unspecified (principal); R93.1 Abnormal findings on diagnostic imaging of heart and coronary circulation
CPT/HCPCS: 36415; 78452; 93017; 96374; A9500; J2785

== ENCOUNTER 2024-05-17 21:13 | Emergency (ER) | payer MEDICARE, MEDICAID, SELFPAY ==
[2023-07-19 09:23] VITALS: BP 132/64; BMI 36.8
[2024-05-17 21:13] VITALS: BP 124/70; PULSE 76; RESP 18; TEMP 36.8; O2SAT 97; BMI 38.3
--- NOTE | 2024-05-17 21:26 | ECG_ITS ---
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 Measurements Intervals [place] Rate: 72 P: 61 WI: 128 QRS: 38 QRSD: 100 T: 53 QT: 373 QTc: 411 Interpretive Statements SINUS RHYTHM Compared to ECG 04/13/2024 23:02:26 Sinus arrhythmia no longer present Incomplete right bundle-branch block no longer present Electronically Signed On 05-18-2024 13:00:23 CDT by Funmilayo De La Rosa M.D. [id number]
[2024-05-17 21:39] VITALS: BP 122/77; PULSE 73; RESP 16; O2SAT 100
--- NOTE | 2024-05-17 21:41 | XRR_ITS ---
PROCEDURE INFORMATION: Exam: XR Chest Exam date and time: 05/17/2024 9:43 PM Age: 58 years old Clinical indication: Pain; Wheezing; Chest pressure; Prior surgery; Surgery date: 6+ months; Surgery type: Thyroid; Patient arrives via [facility] for evaluation of shortness of breath accompanied by cough, possible seizures throughout the day. 2l nc baseline. Glucose 104. PT does have HX of copd, daily smoker, and has chf. ; Additional info: Chest pain wheezing TECHNIQUE: Imaging protocol: Radiologic exam of the chest. Views: 1 view. COMPARISON: CT lung screening [id number] 04/16/2024 10:09 AM FINDINGS: Lungs: Mild bibasilar atelectasis and/or pneumonia. Pleural spaces: Unremarkable. No pleural effusion. No pneumothorax. Heart/Mediastinum: Unremarkable. No cardiomegaly. Bones/joints: Unremarkable. XR/XR chest 1V portable [id number] IMPRESSION: Mild bibasilar atelectasis and/or pneumonia.
--- NOTE | 2024-05-17 21:41 | ECG_ITS ---
[facility] Date: 2024-05-17 Pat Name: Crystal Pierre Department: Room: Gender: Female Port Captain: : 1965 Requested By: Zach Magana Order Number: [id number] Clemencia MD: Funmilayo De La Rosa M.D. Measurements Intervals [place] Rate: 72 P: 61 [place]: 128 QRS: 38 QRSD: 100 T: 53 QT: 373 QTc: 411 Interpretive Statements SINUS RHYTHM Compared to ECG 04/13/2024 23:02:26 Sinus arrhythmia no longer present Incomplete right bundle-branch block no longer present Electronically Signed On 05-18-2024 13:00:26 CDT by Funmilayo De La Rosa M.D. [id number] [id number]
[2024-05-17 22:07] LABS: Basophils # 0.1 10^3/uL (0.0-0.1); Basophils % 0.5 %; Eosinophils # 0.3 10^3/uL (0.0-0.8); Eosinophils % 2.4 %; Hematocrit 39.4 % (36-47); Lymphocytes # 2.3 10^3/uL (0.8-4.8); Lymphocytes % 20.3 %; Mean Corpuscular HGB Conc 30.2 g/dL (30-55); Mean Corpuscular Hemoglobin 29.8 pg (27-33); Mean Corpuscular Volume 98.5 fl (85-98); Mean Platelet Volume 9.7 fL (7.4-10.4); Monocytes % 8.4 %; Neutrophils # 7.83 10^3/uL (1.8-7.7); Neutrophils % 68.1 %; Nucleated Red Blood Cells % 0 %; Platelet Count 239 10^3/cmm (157-399); White Blood Count 11.48 10^3/uL (3.29-11.43)
--- NOTE | 2024-05-17 22:07 | W.ED.SOB ---
HPI - SOB/Dyspnea General: Chief Complaint: Shortness of Breath/Dyspnea Stated Complaint: SOB sharron possible Time Seen by Provider: 05/17/24 21:35 History of Present Illness: HPI Narrative: Patient presents to the ER by EMS for complaints of shortness of breath cough chest pain and possible seizure throughout the day. Patient is normally on 2 L oxygen at baseline and upon arrival she was satting 97%. Glucose is 104. Patient is a daily smoker with a history of COPD and CHF. Related Data Home Medications ?Medication ?Instructions ?Recorded ?Confirmed aspirin 81 mg tablet,delayed 81 mg PO QAM 02/15/19 04/11/24 release (Adult Aspirin Regimen) levetiracetam 250 mg tablet 250 mg PO BID 02/15/19 04/11/24 duloxetine 60 mg capsule,delayed 60 mg PO QAM 04/05/21 04/11/24 release trazodone 50 mg tablet 100 mg PO BEDTIME 04/05/21 04/11/24 montelukast 10 mg tablet 10 mg PO DAILY 03/15/23 04/11/24 sucralfate 1 gram tablet 1 g PO TID 03/15/23 04/11/24 albuterol sulfate 2.5 mg/3 mL 2.5 mg inhalation QID PRN 03/17/23 04/11/24 (0.083 %) solution for nebulization SHORTNESS OF BREATH fluticasone propionate 50 1 spray intranasal BID 06/09/23 04/11/24 mcg/actuation nasal spray,suspension vibegron 75 mg tablet (Gemtesa) 75 mg PO DAILY 06/09/23 04/11/24 spironolactone 25 mg tablet 25 mg PO BEDTIME 06/22/23 04/11/24 gabapentin 300 mg capsule 300 mg PO TID 08/07/23 04/11/24 levothyroxine 100 mcg tablet 100 mcg PO QAM 08/07/23 04/11/24 albuterol sulfate 90 mcg/actuation 2 puff inhalation Q6H PRN 01/19/24 04/11/24 aerosol inhaler Shortness Of Breath Or Wheezing Previous Rx's ?Medication ?Instructions ?Recorded atorvastatin 20 mg tablet 40 mg (2 x 20 mg) PO BEDTIME #60 06/10/23 tabs metoprolol succinate 25 mg 50 mg (2 x 25 mg) PO DAILY #180 09/18/23 tablet,extended release 24 hr tabs (Toprol XL) bumetanide 2 mg tablet 2 mg PO DAILY #90 tabs 03/01/24 isosorbide mononitrate 30 mg 30 mg PO DAILY #90 tabs 03/01/24 tablet,extended release 24 hr ketorolac 10 mg tablet 10 mg PO TID PRN pain #10 tabs 03/04/24 potassium chloride 20 mEq 20 meq PO DAILY #90 tabs 05/06/24 tablet,extended release(part/cryst) Allergies Allergy/AdvReac Type Severity Reaction Status Date / Time chlorpromazine Allergy Unknown ALGY-Rash Verified 04/11/24 11:25 diphenhydramine Allergy Unknown Unknown Verified 04/11/24 11:25 Iodinated Contrast Media Allergy Unknown ALGY-Hives Verified 04/11/24 11:25 tramadol Allergy Unknown Verified 04/11/24 11:25 amoxicillin AdvReac Unknown ADR-Nausea Verified 04/11/24 11:25 codeine AdvReac Unknown ADR-Vomitin Verified 04/11/24 11:25 g Penicillins AdvReac Unknown ADR-Vomitin Verified 04/11/24 11:25 g Review of Systems General: Reports: 10 or more systems reviewed and unremarkable except in HPI and below PFSH ED PFSH: Medical History Major depressive disorder, single episode, severe without psychotic features Sleep apnea Psychiatric care Diastolic heart failure Chest pain Lower extremity edema Atypical chest pain Cervical radiculopathy Pain of hand Diastolic CHF 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 Other Adopted Social History Smoking and tobacco/nicotine status: current every day tobacco/nicotine user Quit status (tobacco/nicotine): has quit using Year quit tobacco: 2019 - 1-5 ciggs/day Alcohol intake: never Substance/Drug Use: never Lives independently: Yes Household members: none Housing: Apartment Current occupational status: disabled Do you think of yourself as: Straight/Heterosexual Current gender identity: Female Physical Exam Const: COMMON NORMALS: no acute distress, average body habitus, patient oriented x3, no limitations, healthy appearing, alert and well nourished HENMT: COMMON NORMALS: normocephalic, atraumatic, hearing grossly normal bilaterally, external ears normal, Normal external nose present, moist oral mucous membranes and oropharynx normal HEAD & SCALP: normocephalic and atraumatic NOSE: Normal external nose present EXTERNAL EAR: Yes external ears normal Neck/C-Spine: COMMON NORMALS: full ROM, no lymphadenopathy, supple, no meningeal signs and no JVD Chest: COMMONS NORMALS: normal inspection of the chest and normal palpation of entire chest wall Resp: COMMON NORMALS: normal respiratory effort, No retractions and No use of accessory muscles Cardio: COMMON NORMALS: no JVD, regular rate, regular rhythm, S1 normal heart sound present, S2 normal heart sound present, No gallops present (Cardio), No clicks present (Cardio), No murmurs present (Cardio) and No rub (Cardio) RATE: regular rate RHYTHM: regular rhythm HEART SOUNDS: S1 normal heart sound present and S2 normal heart sound present GI: COMMON NORMALS: Normal to inspection, nondistended, normoactive bowel sounds present, Soft to palpation, non-tender, No hepatosplenomegaly present and no masses PALPATION: Yes Soft to palpation and Yes No hepatosplenomegaly present Neuro: COMMON NORMALS: patient oriented x3 SENSORIUM/ORIENTATION: Yes alert MENINGEAL SIGNS: Yes no meningeal signs Course Vital Signs: Vital signs: Vital Signs Temperature 98.3 F 05/17/24 21:13 Pulse Rate 68 05/18/24 02:11 Respiratory Rate 18 05/18/24 02:11 Blood Pressure 95/63 05/18/24 02:11 Pulse Oximetry 100 05/18/24 02:11 Oxygen Delivery Me thod Nasal Cannula 05/18/24 00:00 Oxygen Flow Rate 3 05/18/24 00:00 MDM - SOB/Dyspnea Medical Decision Making Lab work was reviewed which is essentially unremarkable, chest x-ray showed mild basilar atelectasis and/or pneumonia, patient was given 1 DuoNeb breathing treatment and breathing improved. White count is 11.48. Patient be discharged home. Medical Records I reviewed the patient's medical records. Lab Data I reviewed the patient's lab results. 05/17/24 22:02 05/17/24 22:02 Labs/Radiology: Radiology Impressions Chest X-Ray 05/17/24 21:41 IMPRESSION: Mild bibasilar atelectasis and/or pneumonia. Laboratory Results WBC 11.48 10^3/uL (3.29-11.43) H 05/17/24 22:02 RBC 4.00 10^6/uL (3.85-5.65) 05/17/24 22:02 Hgb 11.90 g/dL (11.27-16.99) 05/17/24 22:02 Hct 39.4 % (36-47) 05/17/24 22:02 MCV 98.5 fl (85-98) H 05/17/24 22:02 MCH 29.8 pg (27-33) 05/17/24 22:02 MCHC 30.2 g/dL (30-55) 05/17/24 22:02 RDW 13.0 % (12.1-15.1) 05/17/24 22:02 Plt Count 239 10^3/cmm (157-399) 05/17/24 22:02 MPV 9.7 fL (7.4-10.4) 05/17/24 22:02 Neut % (Auto) 68.1 % 05/17/24 22:02 Lymph % (Auto) 20.3 % 05/17/24 22:02 Warren % (Auto) 8.4 % 05/17/24 22:02 Eos % (Auto) 2.4 % 05/17/24 22:02 Baso % (Auto) 0.5 % 05/17/24 22:02 Neut # (Auto) 7.83 10^3/uL (1.8-7.7) H 05/17/24 22:02 Lymph # (Auto) 2.3 10^3/uL (0.8-4.8) 05/17/24 22:02 Warren # (Auto) 1.0 10^3/uL (0.2-0.9) H 05/17/24 22:02 Eos # (Auto) 0.3 10^3/uL (0.0-0.8) 05/17/24 22:02 Baso # (Auto) 0.1 10^3/uL (0.0-0.1) 05/17/24 22:02 Nucleated RBC % (auto) 0 % 05/17/24 22:02 Nucleated RBCs # 0.0 /100WBC 05/17/24 22:02 Sodium 142 mmol/L (136-145) 05/17/24 22:02 Potassium 4.2 mmol/L (3.5-5.1) 05/17/24 22:02 Chloride 97 mmol/L (98-107) L 05/17/24 22:02 Carbon Dioxide 35 mmol/L (22-29) H 05/17/24 22:02 Anion Gap 14.2 (5-19) 05/17/24 22:02 BUN 12 mg/dL (6-20) 05/17/24 22:02 Creatinine 0.9 mg/dL (0.5-0.9) 05/17/24 22:02 GFR Calculation 64.1 mL/min (90-130) L 05/17/24 22:02 Glucose 108 mg/dL (65-115) 05/17/24 22:02 Calculated Osmolality 294 mOsm/kg (285-295) 05/17/24 22:02 Calcium 8.6 mg/dL (8.5-10.5) 05/17/24 22:02 Total Bilirubin 0.8 mg/dL (0.15-1.2) 05/17/24 22:02 AST 18 U/L (0-32) 05/17/24 22:02 ALT 11 U/L (0-33) 05/17/24 22:02 Alkaline Phosphatase 96 U/L (35-105) 05/17/24 22:02 Troponin T Baseline 24 ng/L (0-10) H 05/17/24 22:02 Troponin T 120 Minute 20.53 ng/L (0-10) H 05/18/24 01:00 Delta Troponin T -3.47 ABS# (0-10) L 05/18/24 01:00 Total Protein 6.6 g/dL (6.6-8.7) 05/17/24 22:02 Albumin 4.1 g/dL (3.5-5.2) 05/17/24 22:02 Globulin 2.5 g/dL (1.3-4.6) 05/17/24 22:02 Influenza A (PCR) Negative (Negative) 05/17/24 21:32 Influenza Type B (PCR) Negative (Negative) 05/17/24 21:32 RSV (PCR) Negative (Negative) 05/17/24 21:32 SARS-CoV-2 (PCR) Negative (Negative) 05/17/24 21:32 All radiology interpretation(s) finalized by discharge Discharge Plan Discharge Patient Disposition: Home Clinical Impression: Atypical chest pain, Shortness of breath Condition: Stable Prescriptions: No Action levetiracetam 250 mg tablet 250 mg PO BID aspirin [Adult Aspirin Regimen] 81 mg tablet,delayed release (DR/EC) 81 mg PO QAM bumetanide 2 mg tablet 2 mg PO DAILY Qty: 90 3RF isosorbide mononitrate 30 mg tablet extended release 24 hr 30 mg PO DAILY Qty: 90 1RF metoprolol succinate [Toprol XL] 25 mg tablet extended release 24 hr 50 mg PO DAILY Qty: 180 2RF potassium chloride 20 mEq tablet,ER particles/crystals 20 meq PO DAILY Qty: 90 3RF trazodone 50 mg tablet 100 mg PO BEDTIME duloxetine 60 mg capsule,delayed release(DR/EC) 60 mg PO QAM albuterol sulfate 2.5 mg /3 mL (0.083 %) solution for nebulization 2.5 mg inhalation QID PRN (Reason: SHORTNESS OF BREATH) levothyroxine 100 mcg tablet 100 mcg PO QAM gabapentin 300 mg capsule 300 mg PO TID albuterol sulfate 90 mcg/actuation HFA aerosol inhaler 2 puff INHALATION Q6H PRN (Reason: Shortness Of Breath Or Wheezing) ketorolac 10 mg tablet 10 mg PO TID PRN (Reason: pain) Qty: 10 0RF sucralfate 1 gram tablet 1 g PO TID montelukast 10 mg tablet 10 mg PO DAILY fluticasone propionate 50 mcg/actuation spray,suspension 1 spray INTRANASAL BID Gemtesa 75 mg tablet 75 mg PO DAILY atorvastatin 20 mg tablet 40 mg PO BEDTIME Qty: 60 0RF spironolactone 25 mg tablet 25 mg PO BEDTIME Discharge Orders: Discharge ED (Routine); Ordered 05/18/24 Ordered By: Zach Magana Referrals: Akila Rivera DO [Primary Care Provider] - Patient Instructions: Chest Pain (ED), Shortness of Breath (ED) Activity Restrictions/Additional Instructions: Thank you for choosing [facility] for your healthcare needs today. Please realize that you were seen in the emergency department and that we are providing you with an emergency medical screening exam and this may not be a complete and all exclusive of all testing and/or medical workup we may need to determine your element or severity of your illness. It is very important that you follow-up as instructed with your primary care provider or specialist for the additional evaluation and to discuss your medical treatment plan. You may return to the emergency department should you have concerns or if your condition changes or worsens in any way. Print Language: Turkmen Coding Level of Care Code ED [employer] Sales Beauty Advisor for Dc Serrato
[2024-05-17 22:15] LABS: Influenza A NEGATIVE (Negative); Influenza B NEGATIVE (Negative); Respiratory Syncytial Virus Ce NEGATIVE (Negative); SARS-CoV-2 PCR NEGATIVE (Negative)
[2024-05-17 22:16] VITALS: PULSE 71; RESP 18; O2SAT 100
[2024-05-17] MEDS: ipratropium-albuterol 3 mL Neb INHALATION (22:16)
[2024-05-17 22:21] VITALS: PULSE 69; RESP 19; O2SAT 100
[2024-05-17 22:29] LABS: Alanine Aminotransferase 11 U/L (0-33); Albumin Level 4.1 g/dL (3.5-5.2); Alkaline Phosphatase 96 U/L (35-105); Anion Gap 14.2 (5-19); Aspartate Amino Transferase 18 U/L (0-32); Blood Urea Nitrogen 12 mg/dL (6-20); Calcium 8.6 mg/dL (8.5-10.5); Carbon Dioxide 35 mmol/L (22-29); Chloride 97 mmol/L (98-107); Creatinine Clr Calc Pharmacy 86.5003; Globulin 2.5 g/dL (1.3-4.6); Glomerular Filtration Rate 64.1 mL/min (90-130); Glucose 108 mg/dL (65-115); Osmolality Calculated 294 mOsm/kg (285-295); Potassium 4.2 mmol/L (3.5-5.1); Sodium 142 mmol/L (136-145); Total Bilirubin 0.8 mg/dL (0.15-1.2); Total Protein 6.6 g/dL (6.6-8.7); Troponin(5th) Baseline 24 ng/L (0-10)
[2024-05-17 22:56] VITALS: BP 93/60; PULSE 68; RESP 16
--- NOTE | 2024-05-17 23:41 | ECG_ITS ---
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 Measurements Intervals [place] Rate: 66 P: 66 VT: 129 QRS: 36 QRSD: 105 T: 45 QT: 422 QTc: 443 Interpretive Statements SINUS RHYTHM WITH SINUS ARRHYTHMIA POSSIBLE RIGHT VENTRICULAR CONDUCTION DELAY [RSR (QR) IN V1/V2] Compared to ECG 05/17/2024 21:29:04 No significant changes Electronically Signed On 05-18-2024 13:15:06 CDT by Funmilayo De La Rosa M.D. [id number]
[2024-05-18] VITALS: BP 129/65; PULSE 71; RESP 16; O2SAT 94
[2024-05-18 01:32] LABS: Troponin 5 2HR 20.53 ng/L (0-10)
[2024-05-18 01:35] LABS: Troponin 5 2HR Delta -3.47 ABS# (0-10)
[2024-05-18 02:11] VITALS: BP 95/63; PULSE 68; RESP 18; O2SAT 100
== END 2024-05-18 02:18 | disposition home or self-care (01) ==
PROVIDERS: Emergency Provider Emergency Medicine; PCP Family Medicine
DX: R07.9 Chest pain, unspecified (principal); R06.02 Shortness of breath; Z11.52 Encounter for screening for COVID-19; Z72.0 Tobacco use; J44.9 Chronic obstructive pulmonary disease, unspecified; I11.0 Hypertensive heart disease with heart failure; I50.30 Unspecified diastolic (congestive) heart failure
CPT/HCPCS: 12345; 36415; 71045; 80053; 84484; 85025; 87637; 93005; 94640; 99285; J9999

== ENCOUNTER 2024-05-23 11:14 | Inpatient (IN) | payer MEDICARE, MEDICAID, SELFPAY ==
[2023-07-19 09:23] VITALS: BP 132/64; BMI 36.8
[2024-05-23] VITALS (17 sets, daily range): BP systolic 90–116; BP diastolic 45–74; PULSE 64–83; RESP 14–22; TEMP 36.3–36.5; O2SAT 92–100; BMI 38.3
--- NOTE | 2024-05-23 11:24 | XR_ITS ---
WS: [id number] Portable AP semiupright chest, 05/23/2024 Clinical Data: Shortness of breath Comparison: None. Findings: No nodules, masses or effusions are seen. The heart is normal. The pulmonary vascularity is not increased. No pneumonia or pneumothorax is seen. The aortic arch and descending thoracic aorta show mild tortuosity. There are monitor leads on the chest wall. XR/XR chest 1V portable [id number] Impression: Atherosclerosis.
--- NOTE | 2024-05-23 11:25 | ECG_ITS ---
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 Measurements Intervals [place] Rate: 75 P: 65 MA: 136 QRS: 50 QRSD: 94 T: 58 QT: 383 QTc: 429 Interpretive Statements SINUS RHYTHM Compared to ECG 05/17/2024 23:38:36 Sinus arrhythmia no longer present Electronically Signed On 05-24-2024 08:44:56 CDT by Funmilayo De La Rosa M.D. [id number]
[2024-05-23 11:39] LABS: ABG PH Result 7.41 (7.35-7.45); Arterial Blood Gas Hematocrit 38.2 % (37-47); Base Excess ABG 15.5 mmol/L (-2.0-2.0); Blood Gas Allen Test Pos; Blood Gas Operator Identificat WALCI; Blood Gas Sample Site Radial, right; Blood Gas Sample Type Arterial; Carboxyhemoglobin < 0.3 %THgb (0.4-20.1); HCO3 ABG 43.3 mmol/L (22-26); HGB O2 Sat 94.7 % (95-100); Ionized Calcium Level - ABG 1.2 mmol/L (1.1-1.4); Methemoglobin 1.1 % (0.4-1.5); Oxygen Device NC; Oxygen Saturation ABG 95.7; PO2 ABG 96.8 mmHg (80.0-100.0); Potassium Level - ABG 3.9 mmol/L (3.5-5.0); Total Hemoglobin 12.5 g/dL (12-16)
[2024-05-23 11:39] LABS: Basophils # 0.1 10^3/uL (0.0-0.1); Basophils % 0.6 %; Eosinophils # 0.2 10^3/uL (0.0-0.8); Eosinophils % 2.8 %; Hematocrit 40.3 % (36-47); Lymphocytes # 2.1 10^3/uL (0.8-4.8); Lymphocytes % 25.8 %; Mean Corpuscular HGB Conc 30.3 g/dL (30-55); Mean Corpuscular Hemoglobin 29.8 pg (27-33); Mean Corpuscular Volume 98.3 fl (85-98); Monocytes # 0.8 10^3/uL (0.2-0.9); Monocytes % 10.1 %; Neutrophils # 4.82 10^3/uL (1.8-7.7); Neutrophils % 60.6 %; Nucleated Red Blood Cells % 0 %; Platelet Count 288 10^3/cmm (157-399); Red Cell Distribution Width 12.9 % (12.1-15.1); White Blood Count 7.95 10^3/uL (3.29-11.43)
[2024-05-23 11:40] LABS: ABG PCO2 68.2 mmHg (35-45)
--- NOTE | 2024-05-23 11:56 | W.ED.AMS ---
HPI - Altered Mental Status General: Chief Complaint: Altered Mental Status Stated Complaint: ams - chf - copd Time Seen by Provider: 05/23/24 11:23 History of Present Illness: 58-year-old female with a history of depression, diastolic CHF, chronic edema, learning disability, aortic regurgitation, COPD, chronic hypoxemic respiratory failure on 2 to 3 L nasal cannula at all times, SVT, GERD, seizure disorder and hypothyroidism who presents to the emergency room with shortness of breath and altered mental status. She has no focal motor deficits. She is somnolent and slow to answer questions but can answer some appropriately. She was found this way by home health when they arrived so no known last known well time. No known fevers. She denies chest pain at this time. Related Data Home Medications ?Medication ?Instructions ?Recorded ?Confirmed aspirin 81 mg tablet,delayed 81 mg PO QAM 02/15/19 05/23/24 release (Adult Aspirin Regimen) levetiracetam 250 mg tablet 250 mg PO BID 02/15/19 05/23/24 duloxetine 60 mg capsule,delayed 60 mg PO QAM 04/05/21 05/23/24 release montelukast 10 mg tablet 10 mg PO DAILY 03/15/23 05/23/24 sucralfate 1 gram tablet 1 g PO TID 03/15/23 05/23/24 vibegron 75 mg tablet (Gemtesa) 75 mg PO DAILY 06/09/23 05/23/24 spironolactone 25 mg tablet 25 mg PO BEDTIME 06/22/23 05/23/24 gabapentin 300 mg capsule 300 mg PO TID 08/07/23 05/23/24 levothyroxine 100 mcg tablet 100 mcg PO QAM 08/07/23 05/23/24 albuterol sulfate 90 mcg/actuation 2 puff inhalation Q6H PRN 01/19/24 05/23/24 aerosol inhaler Shortness Of Breath Or Wheezing atorvastatin 20 mg tablet 20 mg PO QPM 05/23/24 05/23/24 diclofenac sodium 1 % topical gel 1 g topical QID 05/23/24 05/23/24 hydroxyzine HCl 10 mg tablet 10 mg PO TID 05/23/24 05/23/24 magnesium oxide 400 mg (241.3 mg 400 mg PO DAILY 05/23/24 05/23/24 magnesium) tablet Previous Rx's ?Medication ?Instructions ?Recorded metoprolol succinate 25 mg 50 mg (2 x 25 mg) PO DAILY #180 09/18/23 tablet,extended release 24 hr tabs (Toprol XL) bumetanide 2 mg tablet 2 mg PO DAILY #90 tabs 03/01/24 isosorbide mononitrate 30 mg 30 mg PO DAILY #90 tabs 03/01/24 tablet,extended release 24 hr potassium chloride 20 mEq 20 meq PO DAILY #90 tabs 05/06/24 tablet,extended release(part/cryst) Allergies Allergy/AdvReac Type Severity Reaction Status Date / Time chlorpromazine Allergy Unknown ALGY-Rash Verified 04/11/24 11:25 diphenhydramine Allergy Unknown Unknown Verified 04/11/24 11:25 Iodinated Contrast Media Allergy Unknown ALGY-Hives Verified 04/11/24 11:25 tramadol Allergy Unknown Verified 04/11/24 11:25 amoxicillin AdvReac Unknown ADR-Nausea Verified 04/11/24 11:25 codeine AdvReac Unknown ADR-Vomitin Verified 04/11/24 11:25 g Penicillins AdvReac Unknown ADR-Vomitin Verified 04/11/24 11:25 g Review of Systems General: Reports: ROS unobtainable due to medical condition PFSH ED PFSH: Medical History Major depressive disorder, single episode, severe without psychotic features Sleep apnea Psychiatric care Diastolic heart failure Chest pain Lower extremity edema Atypical chest pain Cervical radiculopathy Pain of hand Diastolic CHF 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 Other Adopted Social History Smoking and tobacco/nicotine status: current every day tobacco/nicotine user Quit status (tobacco/nicotine): has quit using Year quit tobacco: 2019 - 1-5 ciggs/day Alcohol intake: never Substance/Drug Use: never Lives independently: Yes Household members: none Housing: Apartment Current occupational status: disabled Do you think of yourself as: Straight/Heterosexual Current gender identity: Female Physical Exam Narrative: General: Somnolent but arousable Skin: Warm, dry. Head: Normocephalic, atraumatic. Neck: Supple, trachea midline. Eye: Extraocular movements are intact. Ears, nose, mouth and throat: Oral mucosa moist. Cardiovascular: Regular rate and rhythm, Normal peripheral perfusion. Respiratory: coarse, scattered wheeze, mild increased wob. tachypnea, breath sounds are equal, Symmetrical chest wall expansion. Gastrointestinal: Soft, Nontender, Non distended, Normal bowel sounds. Musculoskeletal: Normal ROM, no deformity. Neurological: Somnolent. No obvious focal motor deficits. She does answer some questions appropriately. Psychiatric: Unable to assess Course Vital Signs: Vital signs: Vital Signs Temperature 97.7 F 05/23/24 11:24 Pulse Rate 74 05/23/24 13:19 Respiratory Rate 16 05/23/24 13:07 Blood Pressure 98/58 05/23/24 11:24 Pulse Oximetry 99 05/23/24 13:07 Oxygen Delivery Me thod BiPAP 05/23/24 13:07 Oxygen Flow Rate 3 05/23/24 11:24 Fraction of Inspir ed Oxygen 32 05/23/24 13:07 MDM - Altered Mental Status Medical Decision Making Differential diagnosis for patient with shortness of breath includes but is not limited to and based on the above HPI, review of systems and physical exam: Pneumonia. Bronchitis. Asthma or COPD with acute exacerbation. Acute coronary syndrome / [place]. Pulmonary embolism. Anxiety. Congestive heart failure. Viral infections including influenza and Covid-19. Atrial fibrillation. Anxiety. Pleural effusion. Pneumothorax. Orders placed to evaluate differential diagnosis based on the above differential, HPI and physical exam AB.41/69/97 with an O2 sat of 95% on 3 L nasal cannula. She has fairly well compensated hypercapnia but given her work of breathing and breath sounds she is being placed on a BiPAP and treated for COPD exacerbation. EKG: Time 11:25 AM. Rate 75. Normal sinus rhythm, No ST-T changes, no ectopy, normal [place] & QRS intervals, This was reviewed and interpreted by myself the ER physician at 11:30 AM Chest x-ray: No acute process. No infiltrate. No pneumothorax. This was reviewed and interpreted by myself the emergency room physician. I also reviewed the radiology report. Lab Review: Laboratory results were reviewed and interpreted by myself the emergency room physician. No leukocytosis. No anemia. No renal failure. Urinalysis is negative for infection. Flu COVID and RSV are negative. proBNP is negative. I reviewed the patient's medical record. Reexamination: Patient appears quite bit more alert now that she is on the BiPAP. Blood pressures remained a little bit soft. O2 sats are good on the BiPAP. No focal motor deficits. Assessment and plan: COPD with acute exacerbation Metabolic encephalopathy Hypercapnic respiratory failure Chronic hypoxemic respiratory failure Mild dehydration ?BiPAP. Solu-Medrol. Multiple updrafts. IV doxycycline. Normal saline bolus -I discussed the patient with the hospitalist on-call who is admitting the patient. - Discussed findings and plan with patient. Answered any questions. - All laboratory values were reviewed and interpreted personally by myself, the ER physician - All imaging was reviewed and interpreted personally by myself, the ER physician. - Evaluation and treatment of this problem were appropriate in the emergency setting Critical care -I spent a total of >35 minutes of critical care time managing the patient, independent of any other practitioner. -The time involved in the performance of separately reportable procedures was not counted towards critical care time. Lab Data 05/23/24 11:02 05/23/24 11:02 Radiology Impressions Chest X-Ray 05/23/24 11:24 Impression: Atherosclerosis. Laboratory Results WBC 7.95 10^3/uL (3.29-11.43) 05/23/24 11:02 RBC 4.10 10^6/uL (3.85-5.65) 05/23/24 11:02 Hgb 12.20 g/dL (11.27-16.99) 05/23/24 11:02 Hct 40.3 % (36-47) 05/23/24 11:02 MCV 98.3 fl (85-98) H 05/23/24 11:02 MCH 29.8 pg (27-33) 05/23/24 11:02 MCHC 30.3 g/dL (30-55) 05/23/24 11:02 RDW 12.9 % (12.1-15.1) 05/23/24 11:02 Plt Count 288 10^3/cmm (157-399) 05/23/24 11:02 MPV 10.0 fL (7.4-10.4) 05/23/24 11:02 Neut % (Auto) 60.6 % 05/23/24 11:02 Lymph % (Auto) 25.8 % 05/23/24 11:02 [place] % (Auto) 10.1 % 05/23/24 11:02 Eos % (Auto) 2.8 % 05/23/24 11:02 Baso % (Auto) 0.6 % 05/23/24 11:02 Neut # (Auto) 4.82 10^3/uL (1.8-7.7) 05/23/24 11:02 Lymph # (Auto) 2.1 10^3/uL (0.8-4.8) 05/23/24 11:02 [place] # (Auto) 0.8 10^3/uL (0.2-0.9) 05/23/24 11:02 Eos # (Auto) 0.2 10^3/uL (0.0-0.8) 05/23/24 11:02 Baso # (Auto) 0.1 10^3/uL (0.0-0.1) 05/23/24 11:02 Nucleated RBC % (auto) 0 % 05/23/24 11:02 Nucleated RBCs # 0.0 /100WBC 05/23/24 11:02 Specimen Type Arterial 05/23/24 11:28 Sample Site Radial, right 05/23/24 11:28 ABG pH 7.41 (7.35-7.45) 05/23/24 11:28 ABG pCO2 68.2 mmHg (35-45) H* 05/23/24 11:28 ABG pO2 96.8 mmHg (80.0-100.0) 05/23/24 11:28 ABG HCO3 43.3 mmol/L (22-26) H 05/23/24 11:28 ABG O2 Saturation 95.7 05/23/24 11:28 ABG Base Excess 15.5 mmol/L (-2.0-2.0) H 05/23/24 11:28 Nestor Test Pos 05/23/24 11:28 A-a O2 Gradient Not Reportable 05/23/24 11:28 Hematocrit 38.2 % (37-47) 05/23/24 11:28 Hgb O2 Saturation 94.7 % (95-100) L 05/23/24 11:28 Carboxyhemoglobin < 0.3 %THgb (0.4-20.1) L 05/23/24 11:28 Methemoglobin 1.1 % (0.4-1.5) 05/23/24 11:28 Total Hemoglobin 12.5 g/dL (12-16) 05/23/24 11:28 Sodium 140.0 mmol/L (131-143) 05/23/24 11:28 Potassium 3.9 mmol/L (3.5-5.0) 05/23/24 11:28 Glucose 106.0 mg/dL (70-115) 05/23/24 11:28 Ionized Calcium 1.2 mmol/L (1.1-1.4) 05/23/24 11:28 O2 Delivery Device Nc 05/23/24 11:28 O2 Liters/Min 3.0 % 05/23/24 11:28 Vp Treasurer ID [place] 05/23/24 11:28 Sodium 141 mmol/L (136-145) 05/23/24 11:02 Potassium 4.4 mmol/L (3.5-5.1) 05/23/24 11:02 Chloride 93 mmol/L (98-107) L 05/23/24 11:02 Carbon Dioxide 38 mmol/L (22-29) H 05/23/24 11:02 Anion Gap 14.4 (5-19) 05/23/24 11:02 BUN 8 mg/dL (6-20) 05/23/24 11:02 Creatinine 0.9 mg/dL (0.5-0.9) 05/23/24 11:02 GFR Calculation 64.1 mL/min (90-130) L 05/23/24 11:02 Glucose 113 mg/dL (65-115) 05/23/24 11:02 Calculated Osmolality 291 mOsm/kg (285-295) 05/23/24 11:02 Lactic Acid 1.4 mmol/L (0.5-2.2) 05/23/24 11:02 Calcium 8.8 mg/dL (8.5-10.5) 05/23/24 11:02 Total Bilirubin 0.8 mg/dL (0.15-1.2) 05/23/24 11:02 AST 16 U/L (0-32) 05/23/24 11:02 ALT 8 U/L (0-33) 05/23/24 11:02 Alkaline Phosphatase 104 U/L (35-105) 05/23/24 11:02 Troponin T Baseline 14 ng/L (0-10) H 05/23/24 11:02 Troponin T 120 Minute Cancelled 05/23/24 13:04 Delta Troponin T Cancelled 05/23/24 13:04 C-Reactive Protein 26.4 mg/L (0.0-4.9) H 05/23/24 11:02 NT-Pro-B Natriuret Pep 153 pg/mL (0-125) H 05/23/24 11:02 Total Protein 7.1 g/dL (6.6-8.7) 05/23/24 11:02 Albumin 4.1 g/dL (3.5-5.2) 05/23/24 11:02 Globulin 3.0 g/dL (1.3-4.6) 05/23/24 11:02 Urine Color Yellow (Yellow) 05/23/24 12:56 Urine Appearance Clear (CLEAR) 05/23/24 12:56 Urine pH 7.0 (5-7) 05/23/24 12:56 Ur Specific [place] 1.008 (1.005-1.030) 05/23/24 12:56 Urine Protein Negative (Negative) 05/23/24 12:56 Urine Glucose (UA) Negative (Normal) 05/23/24 12:56 Urine Ketones Negative (Negative) 05/23/24 12:56 Urine Blood Negative (Negative) 05/23/24 12:56 Urine Nitrate Negative (Negative) 05/23/24 12:56 Urine Bilirubin Negative (Negative) 05/23/24 12:56 Urine Urobilinogen 0.2 mg/dL (Negative) 05/23/24 12:56 Ur Leukocyte Esterase Negative (Negative) 05/23/24 12:56 Urine RBC 0-2 /hpf (0-2) 05/23/24 12:56 Urine WBC 0-5 /hpf (0-5) 05/23/24 12:56 Ur Squamous Epith Cells 0-5 /hpf (0-5) 05/23/24 12:56 Amorphous Sediment Not Reportable 05/23/24 12:56 Urine Bacteria None seen /hpf (NONE) 05/23/24 12:56 Hyaline Casts 8.26 /lpf 05/23/24 12:56 Influenza A (PCR) Negative (Negative) 05/23/24 11:59 Influenza Type B (PCR) Negative (Negative) 05/23/24 11:59 RSV (PCR) Negative (Negative) 05/23/24 11:59 SARS-CoV-2 (PCR) Negative (Negative) 05/23/24 11:59 All radiology interpretation(s) finalized by discharge Discharge Plan Discharge Patient Disposition: Admitted As Inpatient Clinical Impression: Hypercapnic respiratory failure, Chronic hypoxemic respiratory failure, Acute metabolic encephalopathy, Mild dehydration Condition: Stable Coding Level of Care Code ED User Experience Manager for Dc Serrato
[2024-05-23 12:01] LABS: Lactic Sepsis W/Reflex 1.4 mmol/L (0.5-2.2)
[2024-05-23 12:05] LABS: Troponin(5th) Baseline 14 ng/L (0-10)
[2024-05-23 12:13] LABS: Alanine Aminotransferase 8 U/L (0-33); Albumin Level 4.1 g/dL (3.5-5.2); Alkaline Phosphatase 104 U/L (35-105); Blood Urea Nitrogen 8 mg/dL (6-20); C Reactive Protein 26.4 mg/L (0.0-4.9); Calcium 8.8 mg/dL (8.5-10.5); Carbon Dioxide 38 mmol/L (22-29); Chloride 93 mmol/L (98-107); Creatinine Clr Calc Pharmacy 86.5003; Glomerular Filtration Rate 64.1 mL/min (90-130); Glucose 113 mg/dL (65-115); NT Pro B Type Natriuretic Pept 153 pg/mL (0-125); Osmolality Calculated 291 mOsm/kg (285-295); Sodium 141 mmol/L (136-145); Total Bilirubin 0.8 mg/dL (0.15-1.2); Total Protein 7.1 g/dL (6.6-8.7)
[2024-05-23 12:24] LABS: Anion Gap 14.4 (5-19); Aspartate Amino Transferase 16 U/L (0-32); Potassium 4.4 mmol/L (3.5-5.1)
[2024-05-23 12:42] LABS: Influenza A NEGATIVE (Negative); Influenza B NEGATIVE (Negative); Respiratory Syncytial Virus Ce NEGATIVE (Negative); SARS-CoV-2 PCR NEGATIVE (Negative)
[2024-05-23 13:07] LABS: Bilirubin Urine Negative (Negative); Blood Urine Negative (Negative); Glucose Urine UA Negative (Normal); Ketones Urine Negative (Negative); Leukocyte Esterase Urine Negative (Negative); Nitrate Urine Negative (Negative); Protein Urine Negative (Negative); Specific Gravity, Urine 1.008 (1.005-1.030); Urine Appearance Clear (CLEAR); Urine Color Yellow (Yellow); Urobilinogen Urine 0.2 mg/dL (Negative)
[2024-05-23] MEDS: ipratropium-albuterol 3 mL Neb INHALATION ×2 (13:08→20:16)
[2024-05-23] MEDS: albuterol 2.5 mg/3 mL Neb INHALATION (13:08)
[2024-05-23 13:13] LABS: Bacteria Urine None Seen /hpf; Hyaline Casts Urine 8.26 /lpf; RBC Urine 0-2 /hpf (0-2); Squamous Epithelial Cell Urine 0-5 /hpf (0-5); WBC Urine 0-5 /hpf (0-5)
[2024-05-23 13:14] LABS: Add Urine Culture? No; UA Slide Review UA Slide Review Perf
--- NOTE | 2024-05-23 13:24 | ECG_ITS ---
[facility]: 2024-[facility]-23 Pat Name: Crystal Pierre Department: Room: Gender: Female Supervisor [place]: : 1965 Requested By: Teena Garcia Order Number: [id number] Khanna MD: Funmilayo De La Rosa M.D. Measurements Intervals [place] Rate: 72 P: 69 [place]: 132 QRS: 54 QRSD: 88 T: 63 QT: 390 QTc: 429 Interpretive Statements SINUS RHYTHM Compared to ECG 05/23/2024 11:25:14 No significant changes Electronically Signed On 05-24-2024 09:03:21 CDT by Funmilayo De La Rosa M.D. [email or web address]
[2024-05-23 14:22] LABS: ABG PH Result 7.41 (7.35-7.45); Alveolar-Arterial Oxygen Gradi 6.8 mmHg (5-10); Arterial Blood Gas Hematocrit 38.2 % (37-47); Base Excess ABG 15.5 mmol/L (-2.0-2.0); Blood Gas Allen Test Pos; Blood Gas Operator Identificat WALCI; Blood Gas Sample Site Radial, right; Blood Gas Sample Type Arterial; Carboxyhemoglobin < 0.3 %THgb (0.4-20.1); HCO3 ABG 43.2 mmol/L (22-26); HGB O2 Sat 94.3 % (95-100); Ionized Calcium Level - ABG 1.2 mmol/L (1.1-1.4); Oxygen Device BIPAP; Oxygen Saturation ABG 95.1; PO2 ABG 92.7 mmHg (80.0-100.0); PO2 FiO2 Ratio Arterial Blood 289; Total Hemoglobin 12.5 g/dL (12-16)
[2024-05-23 14:23] LABS: ABG PCO2 67.5 mmHg (35-45)
[2024-05-23 15:21] LABS: Troponin 5 2HR 11.22 ng/L (0-10); Troponin 5 2HR Delta -2.78 ABS# (0-10)
[2024-05-23] MEDS: doxycycline 100 MG in sodium chloride 0.9% (plus) 100 ML IV (16:23)
[2024-05-23] MEDS: methylPREDNISolone sod succ 125 mg/2 mL INJ IVP (16:23)
[2024-05-23] MEDS: sodium chloride 0.9% 500 ML 999 ML IV (16:23)
--- NOTE | 2024-05-23 16:43 | CTR_ITS ---
NOTE: Report was unsigned for reason: Report failed to cross to synapse. Original Signature date and time was: 05/23/24 @ 1723 PROCEDURE INFORMATION: Exam: CTA Chest With Contrast Exam date and time: 05/23/2024 5:23 PM Age: 58 years old Clinical indication: Other: Respiratory failure; Additional info: Resp failure TECHNIQUE: Imaging protocol: Computed tomographic angiography of the chest with contrast. Exam focused on the arteries. 3D rendering (Not supervised by radiologist): MIP and/or 3D reconstructed images were created by the technologist. Radiation optimization: All CT scans at this facility use at least one of these dose optimization techniques: automated exposure control; mA and/or kV adjustment per patient size (includes targeted exams where dose is matched to clinical indication); or iterative reconstruction. Contrast material: OMNIPAQUE 350; Contrast volume: 80 ml; Contrast route: INTRAVENOUS (IV); COMPARISON: CT lung screening [id number] 04/16/2024 10:09 AM RADIATION DOSE METRICS: Total DLP (mGy-cm): 407.64 FINDINGS: Pulmonary arteries: No pulmonary embolism evident. Main pulmonary artery is dilated at 3.6 cm. Aorta: No evidence of thoracic aortic aneurysm. Thyroid: Findings compatible with a prior thyroidectomy. Lungs: Streaky areas of scar versus atelectasis noted in the lung bases. There are also some mild ground-glass opacities (example left lower lobe posterolaterally series 5, image 36) and coarsened reticular markings. There are some interspersed areas of bronchial wall thickening and mucous plugging in the lower lobes. Pleural spaces: No pleural effusion. Heart: No significant pathology. No pericardial effusion. Lymph nodes: No evidence of lymphadenopathy. Gallbladder and biliary ducts: Prior cholecystectomy. Bones/joints: Mild degenerative change present in the spine. Soft tissues: No significant pathology. Other findings: Evaluation limited by respiratory degradation[facility]cl [id number] IMPRESSION: 1. No evidence of pulmonary embolism. 2. Bilateral lower lobe bronchitis with mild lower lobe parenchymal changes most likely representing inflammatory disease. 3. Dilatation of main pulmonary artery suggestive of pulmonary arterial hypertension; clinical correlation recommended.
--- NOTE | 2024-05-23 16:50 | PM.HP ---
Providers/Chief Complaint Admitting Physician: Jeff Pratt MD Primary Care Provider: Akila Rivera DO Chief Complaint: ams - chf - copd History of Present Illness Crystal Pierre is a 58 year old female with past medical COPD, chronic hypoxic and hypercapnic respiratory failure, diastolic heart failure, CAD, seizure disorder, intellectual disability, SVT, nursing home resident was brought into the ER today because she was found altered by her nursing care. Patient was found to be hypercapnic in the ER and hence was placed on BiPAP. On examination patient is awake and alert. States she is not really sure why she is in the hospital and last thing she remembers is telling her nursing staff that she is feeling dizzy. Patient states she has been having vomiting and diarrhea for last 2 days. Has been feeling wobbly and tired along with dizziness since today morning. She states she has been having cough and difficulty in breathing which has been getting worse over last 2 to 3 days as well. Review of Systems General: Reports: 10 or more systems reviewed and unremarkable except in HPI and below Const: Denies: fever(s), chills, body aches, change in appetite, change in weight, malaise, night sweats, diaphoresis, change in sleep pattern, daytime sleepiness or snoring Eyes: Denies: change in vision, blurry vision, photophobia, eye discomfort or eye discharge ENMT: Denies: throat pain, enlarged tonsils, hoarseness, mouth pain, oral sores, dry mouth, tinnitus, nasal congestion or post nasal drip Card: Denies: chest pain, palpitations, irregular heart rhythm, edema, swelling of feet/ankles, lightheadedness, syncope, pre-syncope, dyspnea on exertion, orthopnea, leg pain with exertion or acrocyanosis Resp: Denies: dyspnea, productive cough, non-productive cough, wheezing, stridor, pain on inspiration, change in phlegm color, hemoptysis or chest congestion GI: Denies: abdominal pain, nausea, vomiting, hematemesis, coffee ground emesis, dysphagia, heartburn, diarrhea, constipation, bloating, GI cramping, change in bowel habits, pain on defecation, hematochezia or melena : Denies: flank pain, dysuria, urinary frequency, urinary urgency, urinary hesitancy, nocturia or hematuria Musc: Denies: neck pain, back pain, extremity pain, joint pain, joint swelling, joint redness, joint stiffness or limited range of motion Neuro: Denies: headache(s), numbness in extremities, weakness in extremities, sensory changes, lack of coordination, difficulty walking, frequent falls, dizziness, vertigo, confusion, Slurred speech present, difficulty communicating thoughts or seizure-like activity Psych: Denies: anxiety, depression, mood swings, panic attacks, hopelessness or irritability Endo: Denies: polyuria, polydipsia, tired all the time, cold intolerance, excessive sweating, flushing or heat intolerance Peter/Lymph: Denies: easy bruising or easy bleeding All/Imm: Denies: tongue swelling, facial swelling or acute wheezing Medications/Allergies Home Medications ?Medication ?Instructions ?Recorded ?Confirmed ?Last Taken ?Type aspirin 81 mg tablet,delayed 81 mg PO QAM 02/15/19 05/23/24 05/23/24 History release (Adult Aspirin Regimen) levetiracetam 250 mg tablet 250 mg PO BID 02/15/19 05/23/24 05/23/24 History duloxetine 60 mg capsule,delayed 60 mg PO QAM 04/05/21 05/23/24 05/23/24 History release montelukast 10 mg tablet 10 mg PO DAILY 03/15/23 05/23/24 05/23/24 History sucralfate 1 gram tablet 1 g PO TID 03/15/23 05/23/24 05/23/24 History vibegron 75 mg tablet (Gemtesa) 75 mg PO DAILY 06/09/23 05/23/24 05/23/24 History spironolactone 25 mg tablet 25 mg PO BEDTIME 06/22/23 05/23/24 05/22/24 History gabapentin 300 mg capsule 300 mg PO TID 08/07/23 05/23/24 05/23/24 History levothyroxine 100 mcg tablet 100 mcg PO QAM 08/07/23 05/23/24 05/23/24 History metoprolol succinate 25 mg 50 mg (2 x 25 mg) PO DAILY #180 09/18/23 05/23/24 05/23/24 Rx tablet,extended release 24 hr tabs (Toprol XL) albuterol sulfate 90 mcg/actuation 2 puff inhalation Q6H PRN 01/19/24 05/23/24 Unknown History aerosol inhaler Shortness Of Breath Or Wheezing bumetanide 2 mg tablet 2 mg PO DAILY #90 tabs 03/01/24 05/23/24 05/23/24 Rx isosorbide mononitrate 30 mg 30 mg PO DAILY #90 tabs 03/01/24 05/23/24 05/23/24 Rx tablet,extended release 24 hr potassium chloride 20 mEq 20 meq PO DAILY #90 tabs 05/06/24 05/23/24 05/23/24 Rx tablet,extended release(part/cryst) atorvastatin 20 mg tablet 20 mg PO QPM 05/23/24 05/23/24 05/22/24 History diclofenac sodium 1 % topical gel 1 g topical QID 05/23/24 05/23/24 Unknown History hydroxyzine HCl 10 mg tablet 10 mg PO TID 05/23/24 05/23/24 05/23/24 History magnesium oxide 400 mg (241.3 mg 400 mg PO DAILY 05/23/24 05/23/24 05/23/24 History magnesium) tablet Allergies Allergy/AdvReac Type Severity Reaction Status Date / Time chlorpromazine Allergy Unknown ALGY-Rash Verified 04/11/24 11:25 diphenhydramine Allergy Unknown Unknown Verified 04/11/24 11:25 Iodinated Contrast Media Allergy Unknown ALGY-Hives Verified 04/11/24 11:25 tramadol Allergy Unknown Verified 04/11/24 11:25 amoxicillin AdvReac Unknown ADR-Nausea Verified 04/11/24 11:25 codeine AdvReac Unknown ADR-Vomitin Verified 04/11/24 11:25 g Penicillins AdvReac Unknown ADR-Vomitin Verified 04/11/24 11:25 g PFSH Acute PFSH: Medical History (Updated 05/23/24 @ 17:50 by Jeff Pratt MD) Chronic hypoxemic respiratory failure Hypercapnic respiratory failure Hx of myocardial infarction Major depressive disorder, single episode, severe without psychotic features Sleep apnea Psychiatric care Diastolic heart failure Chest pain Lower extremity edema Atypical chest pain Cervical radiculopathy Pain of hand Diastolic CHF 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 Other Adopted Social History Smoking and tobacco/nicotine status: current every day tobacco/nicotine user Quit status (tobacco/nicotine): has quit using Year quit tobacco: 02-10 ciggs/day Alcohol intake: never Substance/Drug Use: never Lives independently: Yes Household members: none Housing: Apartment Current occupational status: disabled Do you think of yourself as: Straight/Heterosexual Current gender identity: Female Vitals/I&O/Wt Last Vital Signs Temp 97.7 F 05/23/24 11:24 Pulse 67 05/23/24 16:30 Resp 16 05/23/24 13:07 BP 116/45 05/23/24 16:30 Pulse Ox 98 05/23/24 16:30 O2 Del Method Nasal Cannula 05/23/24 16:30 O2 Flow Rate 3 05/23/24 12:35 FiO2 32 05/23/24 13:07 Weight last 48 hrs Weight 111.13 kg Physical Exam Narrative: General: No acute distress, AO x3, chronically sick appearing, slow to respond HEENT: PERRLA, pupils bilaterally equal and reactive Chest: Normal vesicular breath sounds, no added sounds, equal good air entry bilaterally CVS: S1-S2 regular, no murmurs, no tachycardia, no gallops, no rubs Abdomen: Soft, nontender, no organomegaly, bowel sounds present Neuro: No focal deficits, no facial deformity, AO x3, power 5/5 in all limbs Data 05/23/24 11:02 05/23/24 11:02 Micro: Microbiology 05/23/24 11:47 Blood Culture - Preliminary Blood SPECIMEN COLLECTED 05/23/24 11:50 Blood Culture - Preliminary Blood SPECIMEN COLLECTED A&P Assessment and plan (1) Acute respiratory failure with hypoxia and hypercarbia: (2) Acute exacerbation of chronic obstructive airways disease: (3) Diastolic heart failure: Qualifiers: Heart failure chronicity: chronic Qualified Code(s): I50.32 - Chronic diastolic (congestive) heart failure (4) Moderate aortic regurgitation: (5) AMS (altered mental status): (6) Acute metabolic encephalopathy: (7) Seizures: (8) Sleep apnea: (9) Hypothyroidism (acquired): Plan 58-year-old female with past medical history of COPD, chronic hypoxia and hypercapnia on chronic oxygen, seizure disorder, diastolic heart failure, presents to the ER today because of altered mental status and found to have acute on chronic hypoxic and hypercapnic respiratory failure. Altered mental status: Most likely in setting of acute metabolic encephalopathy. Could be in setting of acute hypercapnic respiratory failure. Appreciate ABG from admission. Patient does have a history of seizure disorder. Cannot rule out subclinical seizure. Appreciate repeat ABG. Currently awake and alert. Oxygen supplementation keeping saturation over 88%. Continue CPAP at home settings overnight. Check prolactin. Check CT head. Patient did have complete workup for stroke with CT head and CTA head and neck recently in March 2024 which was unremarkable. Did have a Lexiscan stress test with the last 1 month which showed prior infarct without any ischemia. Cannot rule out arrhythmia. Telemetry. Check prolactin level, Keppra level. Check urine drug screen. Continue with home dose of Keppra for now. Check TSH, vitamin B12 and folate level. Physical therapy evaluation. Could be in setting of polypharmacy though less likely. For now continue with home dose of gabapentin. Acute on chronic hypoxic and hypercapnic respiratory failure: History of emphysema. Oxygen supplementation keeping saturation 88%. CPAP nightly. Solu-Medrol 40 mg Q6 hourly. Pulmicort twice daily, DuoNeb every 6 hour. Check MRSA swab, blood culture, sputum culture. Check urine bacterial antigen. Empirically start patient on IV vancomycin and meropenem for now. Add azithromycin atypical coverage. MRSA swab negative will discontinue vancomycin. Check CTA chest. History of diastolic heart failure: Currently seems euvolemic. Fluid restriction to less than 1500 cc. Monitor volume status. Hypertension: Goal blood pressure less than 140/90 mmHg. For now continue with home dose of Imdur, metoprolol. Telemetry to rule out arrhythmia. Dizziness/physical deconditioning: Monitor blood pressures. Monitor for arrhythmia. Patient has a history of SVT. Physical therapy, Occupational Therapy. Continue other chronic home medications. CODE STATUS: Discussed in detail with the patient. She states her friend will be the DPOA. Friend's name is Edwina. Full code. Cardiac diet. Protonix for PUD prophylaxis Heparin 5000 every 8 hourly for DVT prophylaxis. PDMP PDMP Reviewed: Not Reviewed Attestations Medical Necessity Statement*: Admission for more than 2 midnights for management of altered mental status in a patient with history of COPD, seizure disorder, acute on chronic hypoxic and hypercapnic respiratory failure Diagnoses Acute respiratory failure with hypoxia and hypercarbia J96.01; J96.02 Acute exacerbation of chronic obstructive airways disease J44.1 Chronic diastolic heart failure I50.32 Heart failure chronicity: chronic Moderate aortic regurgitation I35.1 AMS (altered mental status) R41.82 Acute metabolic encephalopathy G93.41 Seizures R56.9 Sleep apnea G47.30 Hypothyroidism (acquired) E03.9
[2024-05-23 17:11] LABS: Amphetamines Screen Urine Negative (Negative); Barbiturates Screen Urine Negative (Negative); Benzodiazepines Screen Urine Negative (Negative); Cocaine Screen Urine Negative (Negative); Opiate Screen Urine Negative (Negative); PCP Screen Urine Negative (Negative); THC Screen Urine Negative (Negative)
[2024-05-23] MEDS: famotidine 20 mg/2 mL INJ 40 MG IVP (17:12)
[2024-05-23] MEDS: methylPREDNISolone sod succ 40 mg/mL INJ IVP ×2 (17:12→23:06)
--- NOTE | 2024-05-23 17:24 | ECG_ITS ---
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 Measurements Intervals [place] Rate: 64 P: 66 FL: 149 QRS: 46 QRSD: 98 T: 60 QT: 432 QTc: 447 Interpretive Statements SINUS RHYTHM Compared to ECG 05/23/2024 13:11:21 No significant changes Electronically Signed On 05-24-2024 08:58:06 CDT by Funmilayo De La Rosa M.D. [email or web address]
[2024-05-23 17:32] LABS: D Dimer 0.33 ug/mLFEU (0-0.59)
[2024-05-23] MEDS: iohexol 350 mg/mL 500 mL Btl (per mL) IV (17:35)
[2024-05-23 17:44] LABS: Procalcitonin 0.03 ng/mL (0-0.5)
--- NOTE | 2024-05-23 17:50 | PC.NURSE ---
Admitted to ICU room 6 via stretcher. Transferred to bed. Connected to conveyor monitor. V/S stable.
[2024-05-23 17:53] LABS: Iron 38 ug/dL (37-145); NT Pro B Type Natriuretic Pept 127 pg/mL (0-125); Prolactin 10.16 ng/mL (4.8-23.3); Thyroid Stimulating Hormone 6.39 uIU/mL (0.27-4.20); Vitamin B12 406 pg/mL (232-1245)
[2024-05-23] MEDS: sodium chloride 0.9% 1,000 ML 75 ML IV (18:03)
[2024-05-23] MEDS: levETIRAcetam 500 mg Tablet 250 MG PO (18:05)
[2024-05-23] MEDS: docusate sodium 100 mg Capsule PO (18:06)
[2024-05-23] MEDS: atorvastatin 40 mg Tablet 20 MG PO (18:06)
[2024-05-23] MEDS: pantoprazole 40 mg SDV IVP (18:07)
[2024-05-23] MEDS: heparin 5,000 unit/mL INJ 1 mL 5000 UNIT SUBCUT (18:07)
[2024-05-23] MEDS: vancomycin 2,000 MG/400 ML PIGGYBACK 200 MG IV (18:14)
[2024-05-23 18:23] LABS: Percent Saturation 10.5 % (20-50); Total Iron Binding Capacity 359 mcg/dl; Unsaturated Iron Binding 321 ug/dL (112-347)
[2024-05-23 18:35] LABS: Troponin 5 6HR 14.86 ng/L (0-10); Troponin 5 6HR Delta 0.86 ng/L (0-12)
[2024-05-23 18:37] LABS: Lactic Sepsis W/Reflex 0.8 mmol/L (0.5-2.2)
[2024-05-23 20:14] LABS: MRSA PCR OZH (swab) NOT DETECTED (Not Detecte)
[2024-05-23] MEDS: budesonide 0.5 mg/2 mL Neb INHALATION (20:16)
[2024-05-23] MEDS: sucralfate 1 gm Tablet PO (20:18)
[2024-05-23] MEDS: gabapentin 300 mg Capsule PO (20:18)
[2024-05-23 20:56] LABS: Estmated Average Glucose 111; Hemoglobin A1C 5.5 % (4.0-6.0)
[2024-05-24] VITALS (25 sets, daily range): BP systolic 99–141; BP diastolic 52–76; PULSE 60–92; RESP 14–24; TEMP 36.3–37.3; O2SAT 93–98
[2024-05-24] MEDS: heparin 5,000 unit/mL INJ 1 mL 5000 UNIT SUBCUT ×3 (00:27→17:25)
[2024-05-24] MEDS: ipratropium-albuterol 3 mL Neb INHALATION ×4 (01:51→19:41)
[2024-05-24 04:55] LABS: Basophils % 0.3 %; Eosinophils % 0.2 %; Hematocrit 37.8 % (36-47); Lymphocytes # 0.7 10^3/uL (0.8-4.8); Lymphocytes % 11.3 %; Mean Corpuscular HGB Conc 30.4 g/dL (30-55); Mean Corpuscular Hemoglobin 29.6 pg (27-33); Mean Corpuscular Volume 97.4 fl (85-98); Monocytes # 0.1 10^3/uL (0.2-0.9); Monocytes % 1.2 %; Neutrophils # 5.58 10^3/uL (1.8-7.7); Neutrophils % 86.4 %; Nucleated Red Blood Cells % 0 %; Platelet Count 263 10^3/cmm (157-399); Red Blood Count 3.88 10^6/uL (3.85-5.65); Red Cell Distribution Width 12.8 % (12.1-15.1); White Blood Count 6.46 10^3/uL (3.29-11.43)
[2024-05-24] MEDS: vancomycin 2,000 MG/400 ML PIGGYBACK 200 MG IV (05:19)
[2024-05-24] MEDS: levothyroxine 100 mcg Tablet PO (05:19)
[2024-05-24] MEDS: methylPREDNISolone sod succ 40 mg/mL INJ IVP ×3 (05:19→21:45)
[2024-05-24] MEDS: aspirin 81 mg EC Tablet PO (05:19)
[2024-05-24 05:23] LABS: Chol HDL Ratio 1.98 mg/dL (0.0-4.40); Cholesterol 113 mg/dL (0-200); HDL Cholesterol 57 mg/dL (60-100); LDL Cholesterol Calculated 41 mg/dL (50-129); LDL HDL Ratio 0.72 RATIO (0.00-3.22); Procalcitonin 0.03 ng/mL (0-0.5); Triglycerides 73 mg/dL (0-150)
[2024-05-24 05:38] LABS: Alanine Aminotransferase 7 U/L (0-33); Albumin Level 3.7 g/dL (3.5-5.2); Alkaline Phosphatase 89 U/L (35-105); Anion Gap 14.2 (5-19); Aspartate Amino Transferase 11 U/L (0-32); Blood Urea Nitrogen 13 mg/dL (6-20); Calcium 8.6 mg/dL (8.5-10.5); Carbon Dioxide 32 mmol/L (22-29); Chloride 97 mmol/L (98-107); Creatinine Clr Calc Pharmacy 96.6621; Glomerular Filtration Rate 73.4 mL/min (90-130); Glucose 154 mg/dL (65-115); Magnesium 1.6 mg/dL (1.7-2.3); Osmolality Calculated 291 mOsm/kg (285-295); Phosphorus 2.9 mg/dL (2.5-4.5); Potassium 4.2 mmol/L (3.5-5.1); Sodium 139 mmol/L (136-145); Total Protein 6.7 g/dL (6.6-8.7)
[2024-05-24] MEDS: sodium chloride 0.9% 1,000 ML 75 ML IV ×2 (06:41→19:57)
[2024-05-24] MEDS: budesonide 0.5 mg/2 mL Neb INHALATION ×2 (07:57→19:41)
[2024-05-24] MEDS: gabapentin 300 mg Capsule PO ×3 (08:14→21:44)
[2024-05-24] MEDS: isosorbide mononitrate ER 30 mg Tablet PO (08:14)
[2024-05-24] MEDS: metoprolol succinate ER (24 HR) 25 mg Tablet 50 MG PO (08:14)
[2024-05-24] MEDS: sucralfate 1 gm Tablet PO ×3 (08:14→21:44)
[2024-05-24] MEDS: docusate sodium 100 mg Capsule PO ×2 (08:14→17:25)
[2024-05-24] MEDS: levETIRAcetam 500 mg Tablet 250 MG PO ×2 (08:14→17:25)
[2024-05-24] MEDS: cefTRIAXone 1,000 mg SDV 1000 MG IVP (10:31)
[2024-05-24] MEDS: azithromycin 250 mg Tablet 500 MG PO (10:32)
--- NOTE | 2024-05-24 12:30 | PC.SOCIAL ---
IMM UPDATED IMM dated and initialed, copy given to patient and copy placed in chart.
--- NOTE | 2024-05-24 14:50 | P.PN_ITS ---
Subjective 2 Subjective: No acute events overnight. Patient is awake and alert today. Back to her baseline oxygen supplementation mentation. States she is feeling a lot better. Still complaining of occasional dizziness. Vitals/I&O/Wt Last Vital Signs Temp 97.5 F L 05/24/24 12:49 Pulse 72 05/24/24 13:30 Resp 18 05/24/24 13:30 BP 116/59 05/24/24 12:00 Pulse Ox 95 05/24/24 13:30 O2 Del Method Nasal Cannula 05/24/24 13:30 O2 Flow Rate 2 05/24/24 13:30 FiO2 32 05/23/24 13:07 05/23/24 05/24/24 05/24/24 22:59 06:59 14:59 Intake Total 1000 / 1000 947.5 / 1947.5 640 / 640 Output Total 1750 / 1750 450 / 450 Balance 1000 / 1000 -802.5 / 197.5 190 / 190 Weight last 48 hrs Weight 109.769 kg Weight 109.769 kg Weight 110 kg Weight 111.13 kg Physical Exam 2 Narrative: General: No acute distress, AO x3, chronically sick appearing, slow to respond HEENT: PERRLA, pupils bilaterally equal and reactive Chest: Normal vesicular breath sounds, no added sounds, equal good air entry bilaterally CVS: S1-S2 regular, no murmurs, no tachycardia, no gallops, no rubs Abdomen: Soft, nontender, no organomegaly, bowel sounds present Neuro: No focal deficits, no facial deformity, AO x3, power 5/5 in all limbs Data 05/24/24 04:26 05/24/24 04:26 Micro: Microbiology 05/23/24 11:47 Blood Culture - Preliminary Blood NEGATIVE TO DATE 05/23/24 11:50 Blood Culture - Preliminary Blood NEGATIVE TO DATE 05/23/24 12:56 Bacterial Antigens - Final Urine Kidney A&P Assessment and plan (1) Acute respiratory failure with hypoxia and hypercarbia: (2) Acute exacerbation of chronic obstructive airways disease: (3) Diastolic heart failure: Qualifiers: Heart failure chronicity: chronic Qualified Code(s): I50.32 - Chronic diastolic (congestive) heart failure (4) Moderate aortic regurgitation: (5) AMS (altered mental status): (6) Acute metabolic encephalopathy: (7) Seizures: (8) Sleep apnea: (9) Hypothyroidism (acquired): Plan 58-year-old female with past medical history of COPD, chronic hypoxia and hypercapnia on chronic oxygen, seizure disorder, diastolic heart failure, presents to the ER today because of altered mental status and found to have acute on chronic hypoxic and hypercapnic respiratory failure. Altered mental status: Resolved. Unknown reason. Most likely in setting of acute metabolic encephalopathy due to hypercapnia from COPD exacerbation. Appreciate ABG from admission. Patient does have a history of seizure disorder. Cannot rule out subclinical seizure. Oxygen supplementation keeping saturation over 88%. Continue CPAP at home settings overnight. Negative prolactin. Patient did have complete workup for stroke with CT head and CTA head and neck recently in March 2024 which was unremarkable. Did have a Lexiscan stress test with the last 1 month which showed prior infarct without any ischemia. No arrhythmias on telemetry overnight. Check orthostatic blood pressures. Telemetry. Follow-up Keppra level. Negative urine drug screen.Negative respiratory viral panel. Continue with home dose of Keppra for now. Check free T3 and free T4 mildly elevated TSH. Normal vitamin B12 and folate level. Physical therapy evaluation. Could be in setting of polypharmacy though less likely. For now continue with home dose of gabapentin. Restart home dose of duloxetine. Acute on chronic hypoxic and hypercapnic respiratory failure: History of emphysema. Oxygen supplementation keeping saturation 88%. BiPAP nightly. Will confirm from case management as patient uses a BiPAP or CPAP at home. Patient's pCO2 more than 65. If she uses CPAP we will do an overnight pulse oximetry study to see if she can qualify for BiPAP at home. Wean Solu-Medrol 40 mg every 12 hourly. Pulmicort twice daily, DuoNeb every 6 hour. Negative MRSA swab, follow up blood culture, sputum culture. Negative urine bacterial antigen. Switch to IV ceftriaxone. Vancomycin DC'd as MRSA swab negative. Continue with azithromycin atypical coverage. Negative CTA chest. History of diastolic heart failure: Currently seems euvolemic. Fluid restriction to less than 1500 cc. Monitor volume status. Hypertension: Goal blood pressure less than 140/90 mmHg. For now continue with home dose of Imdur, metoprolol. Telemetry to rule out arrhythmia. Dizziness/physical deconditioning: Monitor blood pressures. Monitor for arrhythmia. Patient has a history of SVT. Physical therapy, Occupational Therapy. Continue other chronic home medications. CODE STATUS: Discussed in detail with the patient. She states her friend will be the DPOA. Friend's name is Edwina. Full code. Cardiac diet. Protonix for PUD prophylaxis Heparin 5000 every 8 hourly for DVT prophylaxis. Transfer to med/surg PDMP PDMP Reviewed: Not Reviewed Attestations 2 Medical Necessity Statement*: Requires further hospitalization for management of altered mental status in setting of hypercapnia due to COPD exacerbation while seizures are ruled out, Diagnoses Acute respiratory failure with hypoxia and hypercarbia J96.01; J96.02 Acute exacerbation of chronic obstructive airways disease J44.1 Chronic diastolic heart failure I50.32 Heart failure chronicity: chronic Moderate aortic regurgitation I35.1 AMS (altered mental status) R41.82 Acute metabolic encephalopathy G93.41 Seizures R56.9 Sleep apnea G47.30 Hypothyroidism (acquired) E03.9
[2024-05-24 15:55] LABS: Free T4 Free Thyroxine 1.14 ng/dL (0.82-1.77)
[2024-05-24] MEDS: atorvastatin 40 mg Tablet 20 MG PO (17:25)
[2024-05-24] MEDS: pantoprazole 40 mg SDV IVP (17:26)
[2024-05-25] VITALS (9 sets, daily range): BP systolic 105–121; BP diastolic 55–76; PULSE 60–89; RESP 14–22; TEMP 36.4–36.7; O2SAT 92–100
[2024-05-25] MEDS: heparin 5,000 unit/mL INJ 1 mL 5000 UNIT SUBCUT ×2 (00:07→09:03)
[2024-05-25] MEDS: ipratropium-albuterol 3 mL Neb INHALATION ×2 (02:10→09:29)
[2024-05-25] MEDS: acetaminophen 325 mg Tablet 650 MG PO (02:11)
[2024-05-25] MEDS: aspirin 81 mg EC Tablet PO (05:15)
[2024-05-25] MEDS: levothyroxine 100 mcg Tablet PO (05:15)
[2024-05-25 05:32] LABS: Basophils % 0.2 %; Lymphocytes # 1.1 10^3/uL (0.8-4.8); Mean Corpuscular Hemoglobin 29.8 pg (27-33); Mean Corpuscular Volume 99.4 fl (85-98); Monocytes # 0.7 10^3/uL (0.2-0.9); Monocytes % 7.1 %; Neutrophils # 7.88 10^3/uL (1.8-7.7); Neutrophils % 80.8 %; Nucleated Red Blood Cells % 0 %; Platelet Count 253 10^3/cmm (157-399); Red Blood Count 3.62 10^6/uL (3.85-5.65); White Blood Count 9.75 10^3/uL (3.29-11.43)
[2024-05-25 05:56] LABS: Alanine Aminotransferase 7 U/L (0-33); Albumin Level 3.4 g/dL (3.5-5.2); Alkaline Phosphatase 81 U/L (35-105); Anion Gap 15.2 (5-19); Aspartate Amino Transferase 11 U/L (0-32); Blood Urea Nitrogen 19 mg/dL (6-20); Calcium 9.3 mg/dL (8.5-10.5); Carbon Dioxide 26 mmol/L (22-29); Chloride 102 mmol/L (98-107); Creatinine Clr Calc Pharmacy 82.4904; Glomerular Filtration Rate 64.1 mL/min (90-130); Glucose 167 mg/dL (65-115); Magnesium 1.9 mg/dL (1.7-2.3); Osmolality Calculated 294 mOsm/kg (285-295); Phosphorus 1.9 mg/dL (2.5-4.5); Potassium 4.2 mmol/L (3.5-5.1); Sodium 139 mmol/L (136-145); Total Bilirubin 0.3 mg/dL (0.15-1.2); Total Protein 6.4 g/dL (6.6-8.7)
[2024-05-25] MEDS: azithromycin 250 mg Tablet 500 MG PO (09:00)
[2024-05-25] MEDS: sucralfate 1 gm Tablet PO ×2 (09:01→14:02)
[2024-05-25] MEDS: levETIRAcetam 500 mg Tablet 250 MG PO (09:01)
[2024-05-25] MEDS: gabapentin 300 mg Capsule PO ×2 (09:01→14:02)
[2024-05-25] MEDS: docusate sodium 100 mg Capsule PO (09:02)
[2024-05-25] MEDS: metoprolol succinate ER (24 HR) 25 mg Tablet 50 MG PO (09:02)
[2024-05-25] MEDS: isosorbide mononitrate ER 30 mg Tablet PO (09:03)
[2024-05-25] MEDS: budesonide 0.5 mg/2 mL Neb INHALATION (09:29)
[2024-05-25 10:15] LABS: Levetiracetam Immunoassy 8.7 mcg/mL (6.0-46.0)
[2024-05-25] MEDS: cefTRIAXone 1,000 mg SDV 1000 MG IVP (10:39)
[2024-05-25] MEDS: methylPREDNISolone sod succ 40 mg/mL INJ IVP (10:40)
--- NOTE | 2024-05-25 10:55 | P.DS_ITS ---
Discharge Providers Date of Admission: 05/23/24 14:44 Date of Discharge: May 25, 2024 Attending Provider at Admission: Jeff Pratt MD Attending Provider at Discharge: Jeff Pratt MD Primary Care Provider: Akila Rivera DO Diagnoses at Discharge Discharge Diagnosis (1) Acute respiratory failure with hypoxia and hypercarbia: Status: Acute (2) Acute exacerbation of chronic obstructive airways disease: Status: Acute (3) Diastolic heart failure: Status: Acute Qualifiers: Heart failure chronicity: chronic Qualified Code(s): I50.32 - Chronic diastolic (congestive) heart failure (4) Moderate aortic regurgitation: Status: Acute (5) AMS (altered mental status): Status: Acute (6) Acute metabolic encephalopathy: Status: Acute (7) Seizures: Status: Acute (8) Sleep apnea: Status: Acute (9) Hypothyroidism (acquired): Status: Acute Reason for Visit Reason for Visit: ams - chf - copd Hospital Course Hospital Course Crystal Pierre is a 58 year old female with past medical COPD, chronic hypoxic and hypercapnic respiratory failure, diastolic heart failure, CAD, seizure disorder, intellectual disability, SVT, snf resident was brought into the ER today because she was found altered by her nursing care. Patient was found to be hypercapnic in the ER and hence was placed on BiPAP. On examination patient is awake and alert. States she is not really sure why she is in the hospital and last thing she remembers is telling her nursing staff that she is feeling dizzy. Patient states she has been having vomiting and diarrhea for last 2 days. Has been feeling wobbly and tired along with dizziness since today morning. She states she has been having cough and difficulty in breathing which has been getting worse over last 2 to 3 days as well. Patient was admitted to the ICU for further evaluation and management of acute on chronic hypoxic and hypercapnic respiratory failure with concerns for COPD exacerbation. There was concern for altered mental status due to acute metabolic encephalopathy on admission. Various etiologies including possible seizure, stroke, infection, ischemia were ruled out. Keppra levels were found to be within normal limits. Urine drug screen was negative. Orthostatic blood pressures were found to be normal. It is believed patient's symptoms are most likely in setting of hypercapnia in setting of COPD exacerbation. During hospitalization patient required BiPAP ventilation while at home she uses CPAP. She underwent overnight pulse oximetry study which has been sent over to [facility] for patient to qualify for BiPAP as an outpatient. She is not discharged hemodynamically stable condition back home with home health for nursing and physical therapy on steroid taper, nebulization treatment along with oral antibiotic for 5 days. Physical Exam Narrative: General: No acute distress, AO x3, chronically sick appearing, HEENT: PERRLA, pupils bilaterally equal and reactive Chest: Normal vesicular breath sounds, no added sounds, equal good air entry bilaterally CVS: S1-S2 regular, no murmurs, no tachycardia, no gallops, no rubs Abdomen: Soft, nontender, no organomegaly, bowel sounds present Neuro: No focal deficits, no facial deformity, AO x3, power 5/5 in all limbs Discharge Data Studies Completed and Pending Completed Studies During Hospitalization Category Date Time Status CTA chest [CT angio chest PE protcl [id number]] Stat Cat Scan 05/23/24 16:43 Completed XR chest 1V portable [id number] Stat Exams 05/23/24 11:24 Completed Pending at discharge Category Date Time Status Blood Culture Stat Lab 05/23/24 11:47 Results C.Diff PCR (Lab) Routine Lab 05/23/24 18:00 Uncollected Complete Blood Count w/Auto AM LABS Lab 05/26/24 04:00 Ordered Comprehensive Metabolic Panel AM LABS Lab 05/26/24 04:00 Ordered Gastrointestinal Pathogen [place] Routine Lab 05/23/24 18:00 Ordered Magnesium AM LABS Lab 05/26/24 04:00 Ordered Phosphorus AM LABS Lab 05/26/24 04:00 Ordered Sputum Culture and Gram Stain Stat Lab 05/24/24 00:28 Results Radiology Impressions Chest X-Ray 05/23/24 11:24 Impression: Atherosclerosis. Chest CTA 05/23/24 16:43 IMPRESSION: 1. No evidence of pulmonary embolism. 2. Bilateral lower lobe bronchitis with mild lower lobe parenchymal changes most likely representing inflammatory disease. 3. Dilatation of main pulmonary artery suggestive of pulmonary arterial hypertension; clinical correlation recommended. Microbiology 05/24/24 00:28 Sputum - Expectorated Sputum Gram Stain - Final 05/23/24 11:47 Blood Blood Culture - Preliminary NEGATIVE TO DATE 05/23/24 11:50 Blood Blood Culture - Preliminary NEGATIVE TO DATE 05/23/24 12:56 Urine Kidney Bacterial Antigens - Final Laboratory Results WBC 9.75 10^3/uL (3.29-11.43) 05/25/24 04: RBC 3.62 10^6/uL (3.85-5.65) L 05/25/24 04:28 Hgb 10.80 g/dL (11.27-16.99) L 05/25/24 04:28 Hct 36.0 % (36-47) 05/25/24 04:28 MCV 99.4 fl (85-98) H 05/25/24 04:28 MCH 29.8 pg (27-33) 05/25/24 04:28 MCHC 30.0 g/dL (30-55) 05/25/24 04:28 RDW 13.0 % (12.1-15.1) 05/25/24 04:28 Plt Count 253 10^3/cmm (157-399) 05/25/24 04:28 MPV 10.0 fL (7.4-10.4) 05/25/24 04:28 Neut % (Auto) 80.8 % 05/25/24 04:28 Lymph % (Auto) 11.0 % 05/25/24 04:28 [place] % (Auto) 7.1 % 05/25/24 04:28 Eos % (Auto) 0.0 % 05/25/24 04:28 Baso % (Auto) 0.2 % 05/25/24 04: Neut # (Auto) 7.88 10^3/uL (1.8-7.7) H 05/25/24 04:28 Lymph # (Auto) 1.1 10^3/uL (0.8-4.8) 05/25/24 04:28 [place] # (Auto) 0.7 10^3/uL (0.2-0.9) 05/25/24 04:28 Eos # (Auto) 0.0 10^3/uL (0.0-0.8) 05/25/24 04:28 Baso # (Auto) 0.0 10^3/uL (0.0-0.1) 05/25/24 04:28 Nucleated RBC % (auto) 0 % 05/25/24 04:28 Nucleated RBCs # 0.0 /100WBC 05/25/24 04:28 D-Dimer 0.33 ug/mLFEU (0-0.59) 05/23/24 11:02 Specimen Type Arterial 05/23/24 14:11 Sample Site Radial, right 05/23/24 14:11 ABG pH 7.41 (7.35-7.45) 05/23/24 14:11 ABG pCO2 67.5 mmHg (35-45) H* 05/23/24 14:11 ABG pO2 92.7 mmHg (80.0-100.0) 05/23/24 14:11 ABG PO2/FiO2 Ratio 289 05/23/24 14:11 ABG HCO3 43.2 mmol/L (22-26) H 05/23/24 14:11 ABG O2 Saturation 95.1 05/23/24 14:11 ABG Base Excess 15.5 mmol/L (-2.0-2.0) H 05/23/24 14:11 Nestor Test Pos 05/23/24 14:11 A-a O2 Gradient 6.8 mmHg (5-10) 05/23/24 14:11 Hematocrit 38.2 % (37-47) 05/23/24 14:11 Hgb O2 Saturation 94.3 % (95-100) L 05/23/24 14:11 Carboxyhemoglobin < 0.3 %THgb (0.4-20.1) L 05/23/24 14:11 Methemoglobin 1.0 % (0.4-1.5) 05/23/24 14:11 Total Hemoglobin 12.5 g/dL (12-16) 05/23/24 14:11 Sodium 140.0 mmol/L (131-143) 05/23/24 14:11 Potassium 4.0 mmol/L (3.5-5.0) 05/23/24 14:11 Glucose 100.0 mg/dL (70-115) 05/23/24 14:11 Ionized Calcium 1.2 mmol/L (1.1-1.4) 05/23/24 14:11 O2 Delivery Device Bipap 05/23/24 14:11 O2 Liters/Min 3.0 % 05/23/24 11:28 FiO2 32.0 % 05/23/24 14:11 Backend Developer ID [place] 05/23/24 14:11 Sodium 139 mmol/L (136-145) 05/25/24 04:28 Potassium 4.2 mmol/L (3.5-5.1) 05/25/24 04:28 Chloride 102 mmol/L (98-107) 05/25/24 04:28 Carbon Dioxide 26 mmol/L (22-29) 05/25/24 04:28 Anion Gap 15.2 (5-19) 05/25/24 04:28 BUN 19 mg/dL (6-20) 05/25/24 04:28 Creatinine 0.9 mg/dL (0.5-0.9) 05/25/24 04:28 GFR Calculation 64.1 mL/min (90-130) L 05/25/24 04:28 Glucose 167 mg/dL (65-115) H 05/25/24 04:28 Estimat Average Glucose 111 05/23/24 11:02 Hemoglobin A1c 5.5 % (4.0-6.0) 05/23/24 11:02 Calculated Osmolality 294 mOsm/kg (285-295) 05/25/24 04:28 Lactic Acid 0.8 mmol/L (0.5-2.2) 05/23/24 18:04 Calcium 9.3 mg/dL (8.5-10.5) 05/25/24 04:28 Phosphorus 1.9 mg/dL (2.5-4.5) L 05/25/24 04:28 Magnesium 1.9 mg/dL (1.7-2.3) 05/25/24 04:28 Iron 38 ug/dL (37-145) 05/23/24 14:56 TIBC 359 mcg/dl 05/23/24 14:56 % Saturation 10.5 % (20-50) L 05/23/24 14:56 Unsat Iron Binding 321 ug/dL (112-347) 05/23/24 14:56 Total Bilirubin 0.3 mg/dL (0.15-1.2) 05/25/24 04:28 AST 11 U/L (0-32) 05/25/24 04:28 ALT 7 U/L (0-33) 05/25/24 04:28 Alkaline Phosphatase 81 U/L (35-105) 05/25/24 04:28 Troponin T Baseline 14 ng/L (0-10) H 05/23/24 11:02 Troponin T 120 Minute 11.22 ng/L (0-10) H 05/23/24 14:56 Delta Troponin T -2.78 ABS# (0-10) L 05/23/24 14:56 Troponin T Hi Sens 6Hr 14.86 ng/L (0-10) H 05/23/24 18:04 Troponin T Hi Sens 6Hr Delta 0.86 ng/L (0-12) 05/23/24 18:04 C-Reactive Protein 26.4 mg/L (0.0-4.9) H 05/23/24 11:02 NT-Pro-B Natriuret Pep 127 pg/mL (0-125) H 05/23/24 14:56 Total Protein 6.4 g/dL (6.6-8.7) L 05/25/24 04:28 Albumin 3.4 g/dL (3.5-5.2) L 05/25/24 04:28 Globulin 3.0 g/dL (1.3-4.6) 05/25/24 04:28 Triglycerides 73 mg/dL (0-150) 05/24/24 04:26 Cholesterol 113 mg/dL (0-200) 05/24/24 04:26 LDL Cholesterol, Calc 41 mg/dL (50-129) L 05/24/24 04:26 HDL Cholesterol 57 mg/dL (60-100) L 05/24/24 04:26 LDL/HDL Ratio 0.72 RATIO (0.00-3.22) 05/24/24 04: Cholesterol/HDL Ratio 1.98 mg/dL (0.0-4.40) 05/24/24 04:26 Vitamin B12 406 pg/mL (232-1245) 05/23/24 14:56 Folate 9.0 ng/mL (4.8-37.3) 05/24/24 04:26 Procalcitonin 0.03 ng/mL (0-0.5) 05/24/24 04:26 TSH 6.39 uIU/mL (0.27-4.20) H 05/23/24 14:56 Free T4 1.14 ng/dL (0.82-1.77) 05/24/24 04:26 Free T3 2.0 PG/ML (2.0-4.4) 05/24/24 04:26 Prolactin 10.16 ng/mL (4.8-23.3) 05/23/24 14:56 Urine Color Yellow (Yellow) 05/23/24 12:56 Urine Appearance Clear (CLEAR) 05/23/24 12:56 Urine pH 7.0 (5-7) 05/23/24 12:56 Ur Specific [place] 1.008 (1.005-1.030) 05/23/24 12:56 Urine Protein Negative (Negative) 05/23/24 12:56 Urine Glucose (UA) Negative (Normal) 05/23/24 12:56 Urine Ketones Negative (Negative) 05/23/24 12:56 Urine Blood Negative (Negative) 05/23/24 12:56 Urine Nitrate Negative (Negative) 05/23/24 12:56 Urine Bilirubin Negative (Negative) 05/23/24 12:56 Urine Urobilinogen 0.2 mg/dL (Negative) 05/23/24 12:56 Ur Leukocyte Esterase Negative (Negative) 05/23/24 12:56 Urine RBC 0-2 /hpf (0-2) 05/23/24 12:56 Urine WBC 0-5 /hpf (0-5) 05/23/24 12:56 Ur Squamous Epith Cells 0-5 /hpf (0-5) 05/23/24 12:56 Amorphous Sediment Not Reportable 05/23/24 12:56 Urine Bacteria None seen /hpf (NONE) 05/23/24 12:56 Hyaline Casts 8.26 /lpf 05/23/24 12:56 Nasal MRSA (PCR) Not detected (Not Detecte) 05/23/24 17:55 Urine Opiates Screen Negative ng/mL (Negative) 05/23/24 12:56 Ur Barbiturates Screen Negative ng/mL (Negative) 05/23/24 12:56 Levetiracetam 8.7 mcg/mL (6.0-46.0) 05/23/24 18:04 Ur Phencyclidine Scrn Negative ng/mL (Negative) 05/23/24 12:56 Ur Amphetamines Screen Negative ng/mL (Negative) 05/23/24 12:56 U Benzodiazepines Scrn Negative ng/mL (Negative) 05/23/24 12:56 Urine Cocaine Screen Negative ng/mL (Negative) 05/23/24 12:56 U Marijuana (THC) Screen Negative ng/mL (Negative) 05/23/24 12:56 Influenza A (PCR) Negative (Negative) 05/23/24 11:59 Influenza Type B (PCR) Negative (Negative) 05/23/24 11:59 RSV (PCR) Negative (Negative) 05/23/24 11:59 SARS-CoV-2 (PCR) Negative (Negative) 05/23/24 11:59 Vitals Last Vital Signs Temp 98.0 F 05/25/24 08:00 Pulse 81 05/25/24 09:33 Resp 16 05/25/24 09:30 BP 109/66 05/25/24 08:00 Pulse Ox 96 05/25/24 09:30 O2 Del Method Nasal Cannula 05/25/24 09:30 O2 Flow Rate 3 05/25/24 09:30 FiO2 32 05/23/24 13:07 Discharge Plan Discharge Patient Disposition: Home Health Service Condition: Stable Prescriptions: New prednisone 10 mg tablet See Taper PO DIRECTED Qty: 42 0RF Taper: predniSONE 60-10 60 mg Daily for 2 Days and 0 Hour 50 mg Daily for 2 Days and 0 Hour 40 mg Daily for 2 Days and 0 Hour 30 mg Daily for 2 Days and 0 Hour 20 mg Daily for 2 Days and 0 Hour 10 mg Daily for 2 Days and 0 Hour Rx Instructions: see taper instructions cefdinir 300 mg capsule 300 mg PO BID 5 Days Qty: 10 0RF Spiriva Respimat 2.5 mcg/actuation mist 2 inh inhalation QAM Qty: 4 0RF Continued levetiracetam 250 mg tablet 250 mg PO BID aspirin [Adult Aspirin Regimen] 81 mg tablet,delayed release (DR/EC) 81 mg PO QAM bumetanide 2 mg tablet 2 mg PO DAILY Qty: 90 3RF isosorbide mononitrate 30 mg tablet extended release 24 hr 30 mg PO DAILY Qty: 90 1RF metoprolol succinate [Toprol XL] 25 mg tablet extended release 24 hr 50 mg PO DAILY Qty: 180 2RF potassium chloride 20 mEq tablet,ER particles/crystals 20 meq PO DAILY Qty: 90 3RF duloxetine 60 mg capsule,delayed release(DR/EC) 60 mg PO QAM levothyroxine 100 mcg tablet 100 mcg PO QAM gabapentin 300 mg capsule 300 mg PO TID albuterol sulfate 90 mcg/actuation HFA aerosol inhaler 2 puff INHALATION Q6H PRN (Reason: Shortness Of Breath Or Wheezing) atorvastatin 20 mg tablet 20 mg PO QPM magnesium oxide 400 mg (241.3 mg magnesium) tablet 400 mg PO DAILY diclofenac sodium 1 % gel 1 g TOPICAL QID sucralfate 1 gram tablet 1 g PO TID montelukast 10 mg tablet 10 mg PO DAILY Gemtesa 75 mg tablet 75 mg PO DAILY Changed hydroxyzine HCl 10 mg tablet 10 mg PO TID PRN (Reason: itching) Qty: 5 0RF Discontinued spironolactone 25 mg tablet 25 mg PO BEDTIME Discharge Orders: Discharge Order (Routine); Ordered 05/25/24 Ordered By: Jeff Pratt Other Ambulatory Orders: DME: BIPAP (Order) Location: None Selected Ordered By: Jeff Pratt Referrals: Akila Rivera DO [Primary Care Provider] - 4-7 days (We have notified your physician's clinic of the need for a follow-up appointment to be scheduled. If you have not heard from them within the next 2 business days, please call them directly. ) Discharge Diet: Regular Discharge Activity: Resume usual activity and Increase activity as tolerated Patient Instructions: Chest Pain (DC), Dehydration (DC), Altered Mental Status (ED), Opioid Safety Activity Restrictions/Additional Instructions: Take steroid taper as prescribed. Continue taking your medications as before. If you do not hear back from case management on Monday regarding your BiPAP please call the hospital or your DME company. Discharge Attestations Time Spent in Discharge Care*: greater than 30 min Specific Discharge Activities: educating patient, discussing with pcp/other providers, discussing with correctional case records supervisor/social workers/dc planners, documenting/other paperwork and evaluating patient/reviewing data Status at Discharge: Cognitive status at discharge: cognitively intact , Behavioral status at discharge: cooperative , Functional status at discharge: uses cane/walker , Overall status at discharge: patient is back to baseline Quality Metrics Clinical Quality Measures [ No reported AMI, CVA or VTE this stay] Coding Level of Care Code 84668 Total time (in minutes) for Discharge: 60 Diagnoses Acute respiratory failure with hypoxia and hypercarbia J96.01; J96.02 Acute exacerbation of chronic obstructive airways disease J44.1 Chronic diastolic heart failure I50.32 Heart failure chronicity: chronic Moderate aortic regurgitation I35.1 AMS (altered mental status) R41.82 Acute metabolic encephalopathy G93.41 Seizures R56.9 Sleep apnea G47.30 Hypothyroidism (acquired) E03.9
--- NOTE | 2024-05-25 12:54 | PC.NURSE ---
[facility] called for a ride setup at 1254pm. [phone] trip number. [facility] is sending ride request to dispatch as [employer] is closed on the weekend.
== END 2024-05-25 14:15 | disposition home health service (06) | DRG 189 ==
LOC: ER 13:44 → ER IP 14:44 → ICU 15:43 → MEDSURG 05-24 18:44
PROVIDERS: Admitting Provider Student in an Organized Health Care Education/Training Program; Emergency Provider Emergency Medicine; PCP Family Medicine; Visit Provider Student in an Organized Health Care Education/Training Program
DX: J96.22 Acute and chronic respiratory failure with hypercapnia (principal); G93.41 Metabolic encephalopathy; J44.1 Chronic obstructive pulmonary disease with (acute) exacerbation; I50.32 Chronic diastolic (congestive) heart failure; J96.21 Acute and chronic respiratory failure with hypoxia; J96.11 Chronic respiratory failure with hypoxia; F32.A Depression, unspecified; K21.9 Gastro-esophageal reflux disease without esophagitis; G40.909 Epilepsy, unspecified, not intractable, without status epilepticus; F17.210 Nicotine dependence, cigarettes, uncomplicated; E86.0 Dehydration; I35.1 Nonrheumatic aortic (valve) insufficiency; J43.9 Emphysema, unspecified; I11.0 Hypertensive heart disease with heart failure; G47.30 Sleep apnea, unspecified; E03.9 Hypothyroidism, unspecified; Z99.81 Dependence on supplemental oxygen; Z79.82 Long term (current) use of aspirin; Z79.899 Other long term (current) drug therapy; Z79.890 Hormone replacement therapy; Z88.5 Allergy status to narcotic agent; Z88.0 Allergy status to penicillin; Z88.8 Allergy status to other drugs, medicaments and biological substances; I34.0 Nonrheumatic mitral (valve) insufficiency
CPT/HCPCS: 36415; 36600; 71045; 71275; 80051; 80053; 80061; 80177; 80306; 81001; 82330; 82607; 82746; 82805; 83036; 83540; 83550; 83605; 83735; 83880; 84100; 84145; 84146; 84439; 84443; 84481; 84484; 85025; 85378; 86140; 86403; 87040; 87070; 87205; 87637; 93005; 94640; 94660; 94664; 96365; 96372; 96375; 97116; 97161; 97165; 99291; J0696; J1644; J2470; J2919; J3372; J3490; J7030; J7040; J7613; J7626; J9999; Q0144

== ENCOUNTER 2024-06-13 20:46 | Emergency (ER) | payer MEDICARE, MEDICAID, SELFPAY ==
[2023-07-19 09:23] VITALS: BP 132/64; BMI 36.8
[2024-06-13 20:46] VITALS: BP 144/71; PULSE 75; RESP 24; O2SAT 100; BMI 35.2
--- NOTE | 2024-06-13 20:53 | XRR_ITS ---
PROCEDURE INFORMATION: Exam: XR Chest Exam date and time: 06/13/2024 9:03 PM Age: 58 years old Clinical indication: Chest wall pain; Additional info: Cp TECHNIQUE: Imaging protocol: Radiologic exam of the chest. Views: 1 view. COMPARISON: CT angio chest PE protcl [id number] 05/23/2024 5:23 PM FINDINGS: Lungs: Unremarkable. No consolidation. Pleural spaces: Unremarkable. No pleural effusion. No pneumothorax. Heart/Mediastinum: Unremarkable. No cardiomegaly. Bones/joints: Unremarkable. XR/XR chest 1V portable [id number] IMPRESSION: No acute findings.
--- NOTE | 2024-06-13 20:53 | ECG_ITS ---
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 Measurements Intervals [place] Rate: 68 P: 73 [place]: 121 QRS: 65 QRSD: 100 T: 71 QT: 390 QTc: 416 Interpretive Statements SINUS RHYTHM Compared to ECG 05/23/2024 18:12:30 No significant changes Electronically Signed On 06-14-2024 13:36:27 CDT by Joseph Wilson M.D. [id number]
[2024-06-13] MEDS: nitroglycerin 0.4 mg sublingual Tablet SUBLINGUAL (21:44)
[2024-06-13] MEDS: aspirin 81 mg Chew Tablet 324 MG PO (21:44)
[2024-06-13 21:58] VITALS: PULSE 67; RESP 17; O2SAT 97
[2024-06-13] MEDS: ipratropium-albuterol 3 mL Neb INHALATION (22:00)
[2024-06-13 22:06] VITALS: PULSE 66
--- NOTE | 2024-06-13 22:09 | W.ED.CHESTPA ---
HPI - Chest Pain General: Chief Complaint: Chest Pain Stated Complaint: CP, SOB Time Seen by Provider: 06/13/24 21:05 History of Present Illness: 58-year-old female presents emerged part with complaint of chest pain and shortness of breath. Patient is normally on 3 L of oxygen. She does still smoke. Did receive breathing treatments prior to arrival by EMS. Related Data Home Medications ?Medication ?Instructions ?Recorded ?Confirmed aspirin 81 mg tablet,delayed 81 mg PO QAM 02/15/19 05/23/24 release (Adult Aspirin Regimen) levetiracetam 250 mg tablet 250 mg PO BID 02/15/19 05/23/24 duloxetine 60 mg capsule,delayed 60 mg PO QAM 04/05/21 05/23/24 release montelukast 10 mg tablet 10 mg PO DAILY 03/15/23 05/23/24 sucralfate 1 gram tablet 1 g PO TID 03/15/23 05/23/24 vibegron 75 mg tablet (Gemtesa) 75 mg PO DAILY 06/09/23 05/23/24 gabapentin 300 mg capsule 300 mg PO TID 08/07/23 05/23/24 levothyroxine 100 mcg tablet 100 mcg PO QAM 08/07/23 05/23/24 albuterol sulfate 90 mcg/actuation 2 puff inhalation Q6H PRN 01/19/24 05/23/24 aerosol inhaler Shortness Of Breath Or Wheezing atorvastatin 20 mg tablet 20 mg PO QPM 05/23/24 05/23/24 diclofenac sodium 1 % topical gel 1 g topical QID 05/23/24 05/23/24 magnesium oxide 400 mg (241.3 mg 400 mg PO DAILY 05/23/24 05/23/24 magnesium) tablet Previous Rx's ?Medication ?Instructions ?Recorded bumetanide 2 mg tablet 2 mg PO DAILY #90 tabs 03/01/24 isosorbide mononitrate 30 mg 30 mg PO DAILY #90 tabs 03/01/24 tablet,extended release 24 hr potassium chloride 20 mEq 20 meq PO DAILY #90 tabs 05/06/24 tablet,extended release(part/cryst) hydroxyzine HCl 10 mg tablet 10 mg PO TID PRN itching #5 tabs 05/25/24 prednisone 10 mg tablet See Taper PO DIRECTED #42 tabs 05/25/24 tiotropium bromide 2.5 2 inh inhalation QAM #4 grams 05/25/24 mcg/actuation mist for inhalation (Spiriva Respimat) metoprolol succinate 25 mg See Rx Instructions .Route 06/04/24 tablet,extended release 24 hr .COMPLEX #180 tabs Allergies Allergy/AdvReac Type Severity Reaction Status Date / Time chlorpromazine Allergy Unknown ALGY-Rash Verified 04/11/24 11:25 diphenhydramine Allergy Unknown Unknown Verified 04/11/24 11:25 Iodinated Contrast Media Allergy Unknown ALGY-Hives Verified 04/11/24 11:25 tramadol Allergy Unknown Verified 04/11/24 11:25 amoxicillin AdvReac Unknown ADR-Nausea Verified 04/11/24 11:25 codeine AdvReac Unknown ADR-Vomitin Verified 04/11/24 11:25 g Penicillins AdvReac Unknown ADR-Vomitin Verified 04/11/24 11:25 g PFSH ED PFSH: Medical History (Updated 06/14/24 @ 00:46 by Rigoberto Liu MD) Chronic hypoxemic respiratory failure Hypercapnic respiratory failure Hx of myocardial infarction Major depressive disorder, single episode, severe without psychotic features Sleep apnea Psychiatric care Diastolic heart failure Chest pain Lower extremity edema Atypical chest pain Cervical radiculopathy Pain of hand Diastolic CHF 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 Other Adopted Social History Smoking and tobacco/nicotine status: current every day tobacco/nicotine user Quit status (tobacco/nicotine): has quit using Year quit tobacco: 2018 - -5 ciggs/day Alcohol intake: never Substance/Drug Use: never Lives independently: Yes Household members: none Housing: Apartment Current occupational status: disabled Do you think of yourself as: Straight/Heterosexual Current gender identity: Female Physical Exam Const: COMMON NORMALS: no acute distress, average body habitus, patient oriented x3, no limitations, healthy appearing, alert and well nourished Neck/C-Spine: COMMON NORMALS: no JVD Resp: COMMON NORMALS: normal respiratory effort, No retractions, No use of accessory muscles and percussion normal PERCUSSION: percussion normal OTHER: End expiratory wheeze Cardio: COMMON NORMALS: no JVD, regular rate, regular rhythm, S1 normal heart sound present, S2 normal heart sound present, No gallops present (Cardio), No clicks present (Cardio), No murmurs present (Cardio), No rub (Cardio) and Peripheral pulses 2+ throughout RATE: regular rate RHYTHM: regular rhythm HEART SOUNDS: S1 normal heart sound present and S2 normal heart sound present PERIPHERAL PULSES: Peripheral pulses 2+ throughout GI: COMMON NORMALS: Normal to inspection, nondistended, normoactive bowel sounds present, Soft to palpation, non-tender, No hepatosplenomegaly present, no masses and no bruits PALPATION: Yes Soft to palpation and Yes No hepatosplenomegaly present Neuro: COMMON NORMALS: patient oriented x3 SENSORIUM/ORIENTATION: Yes alert Course Vital Signs: Vital signs: Vital Signs Pulse Rate 62 06/14/24 00:00 Respiratory Rate 20 H 06/13/24 23:08 Blood Pressure 116/68 06/14/24 00:00 Pulse Oximetry 99 06/14/24 00:00 Oxygen Delivery Me thod Nasal Cannula 06/14/24 00:00 Oxygen Flow Rate 4 06/13/24 23:08 MDM - Chest Pain Medical Decision Making Patient presents emerged part with complaint of shortness of breath and chest pain. She does have a history of COPD. She does receive breathing treatments prior to arrival by EMS. She has no significant abnormality noted on labs or imaging at this time. Her pulse ox is stable on her normal oxygen and she has a negative troponin. Her EKG shows nonspecific ST and T wave changes. No acute ischemic changes. Patient has asymptomatic at time of discharge and states she feels back to her baseline. Lab Data 06/13/24 22:11 06/13/24 22:11 Radiology Impressions Chest X-Ray 06/13/24 20:53 IMPRESSION: No acute findings. Laboratory Results WBC 8.99 10^3/uL (3.29-11.43) 06/13/24 22:11 RBC 3.71 10^6/uL (3.85-5.65) L 06/13/24 22:11 Hgb 11.00 g/dL (11.27-16.99) L 06/13/24 22:11 Hct 36.4 % (36-47) 06/13/24 22:11 MCV 98.1 fl (85-98) H 06/13/24 22:11 MCH 29.6 pg (27-33) 06/13/24 22:11 MCHC 30.2 g/dL (30-55) 06/13/24 22:11 RDW 13.1 % (12.1-15.1) 06/13/24 22:11 Plt Count 245 10^3/cmm (157-399) 06/13/24 22:11 MPV 9.5 fL (7.4-10.4) 06/13/24 22:11 Neut % (Auto) 61.9 % 06/13/24 22:11 Lymph % (Auto) 27.9 % 06/13/24 22:11 [place] % (Auto) 8.2 % 06/13/24 22:11 Eos % (Auto) 1.4 % 06/13/24 22:11 Baso % (Auto) 0.3 % 06/13/24 22:11 Neut # (Auto) 5.55 10^3/uL (1.8-7.7) 06/13/24 22:11 Lymph # (Auto) 2.5 10^3/uL (0.8-4.8) 06/13/24 22:11 [place] # (Auto) 0.7 10^3/uL (0.2-0.9) 06/13/24 22:11 Eos # (Auto) 0.1 10^3/uL (0.0-0.8) 06/13/24 22:11 Baso # (Auto) 0.0 10^3/uL (0.0-0.1) 06/13/24 22:11 Nucleated RBC % (auto) 0 % 06/13/24 22:11 Nucleated RBCs # 0.0 /100WBC 06/13/24 22:11 Sodium 142 mmol/L (136-145) 06/13/24 22:11 Potassium 4.1 mmol/L (3.5-5.1) 06/13/24 22:11 Chloride 98 mmol/L (98-107) 06/13/24 22:11 Carbon Dioxide 39 mmol/L (22-29) H 06/13/24 22:11 Anion Gap 9.1 (5-19) 06/13/24 22:11 BUN 19 mg/dL (6-20) 06/13/24 22:11 Creatinine 0.8 mg/dL (0.5-0.9) 06/13/24 22:11 GFR Calculation 73.4 mL/min (90-130) L 06/13/24 22:11 Glucose 101 mg/dL (65-115) 06/13/24 22:11 Calculated Osmolality 296 mOsm/kg (285-295) H 06/13/24 22:11 Calcium 9.5 mg/dL (8.5-10.5) 06/13/24 22:11 Total Bilirubin 0.6 mg/dL (0.15-1.2) 06/13/24 22:11 AST 13 U/L (0-32) 06/13/24 22:11 ALT 16 U/L (0-33) 06/13/24 22:11 Alkaline Phosphatase 77 U/L (35-105) 06/13/24 22:11 Troponin T Baseline 17 ng/L (0-10) H 06/13/24 22:11 Troponin T 120 Minute 17.04 ng/L (0-10) H 06/14/24 00:07 Delta Troponin T 0.04 ABS# (0-10) 06/14/24 00:07 NT-Pro-B Natriuret Pep 174 pg/mL (0-125) H 06/13/24 22:11 Total Protein 6.4 g/dL (6.6-8.7) L 06/13/24 22:11 Albumin 4.0 g/dL (3.5-5.2) 06/13/24 22:11 Globulin 2.4 g/dL (1.3-4.6) 06/13/24 22:11 Urine Color Yellow (Yellow) 06/13/24 23:07 Urine Appearance Clear (CLEAR) 06/13/24 23:07 Urine pH 5.5 (5-7) 06/13/24 23:07 Ur Specific [place] 1.017 (1.005-1.030) 06/13/24 23:07 Urine Protein Negative (Negative) 06/13/24 23:07 Urine Glucose (UA) Negative (Normal) 06/13/24 23:07 Urine Ketones Negative (Negative) 06/13/24 23:07 Urine Blood Negative (Negative) 06/13/24 23:07 Urine Nitrate Negative (Negative) 06/13/24 23:07 Urine Bilirubin Negative (Negative) 06/13/24 23:07 Urine Urobilinogen 1.0 mg/dL (Negative) 06/13/24 23:07 Ur Leukocyte Esterase Negative (Negative) 06/13/24 23:07 Urine RBC 0-2 /hpf (0-2) 06/13/24 23:07 Urine WBC 0-5 /hpf (0-5) 06/13/24 23:07 Ur Squamous Epith Cells 0-5 /hpf (0-5) 06/13/24 23:07 Amorphous Sediment Not Reportable 06/13/24 23:07 Urine Bacteria None seen /hpf (NONE) 06/13/24 23:07 Hyaline Casts 0-4 /lpf H 06/13/24 23:07 Influenza A (PCR) Negative (Negative) 06/13/24 21:30 Influenza Type B (PCR) Negative (Negative) 06/13/24 21:30 RSV (PCR) Negative (Negative) 06/13/24 21:30 SARS-CoV-2 (PCR) Negative (Negative) 06/13/24 21:30 All radiology interpretation(s) finalized by discharge Discharge Plan Discharge Patient Disposition: Home Clinical Impression: Chest pain Qualifiers: Chest pain type: unspecified Qualified Code(s): R07.9 - Chest pain, unspecified Condition: Stable Prescriptions: No Action levetiracetam 250 mg tablet 250 mg PO BID aspirin [Adult Aspirin Regimen] 81 mg tablet,delayed release (DR/EC) 81 mg PO QAM bumetanide 2 mg tablet 2 mg PO DAILY Qty: 90 3RF isosorbide mononitrate 30 mg tablet extended release 24 hr 30 mg PO DAILY Qty: 90 1RF potassium chloride 20 mEq tablet,ER particles/crystals 20 meq PO DAILY Qty: 90 3RF metoprolol succinate 25 mg tablet extended release 24 hr See Rx Instructions .ROUTE .COMPLEX Qty: 180 2RF Dose Instruction: TAKE 2 TABLETS BY MOUTH EVERY DAY Rx Instructions: TAKE 2 TABLETS BY MOUTH EVERY DAY duloxetine 60 mg capsule,delayed release(DR/EC) 60 mg PO QAM levothyroxine 100 mcg tablet 100 mcg PO QAM gabapentin 300 mg capsule 300 mg PO TID albuterol sulfate 90 mcg/actuation HFA aerosol inhaler 2 puff INHALATION Q6H PRN (Reason: Shortness Of Breath Or Wheezing) atorvastatin 20 mg tablet 20 mg PO QPM magnesium oxide 400 mg (241.3 mg magnesium) tablet 400 mg PO DAILY diclofenac sodium 1 % gel 1 g TOPICAL QID prednisone 10 mg tablet See Taper PO DIRECTED Qty: 42 0RF Taper: predniSONE 60-10 60 mg Daily for 2 Days and 0 Hour 50 mg Daily for 2 Days and 0 Hour 40 mg Daily for 2 Days and 0 Hour 30 mg Daily for 2 Days and 0 Hour 20 mg Daily for 2 Days and 0 Hour 10 mg Daily for 2 Days and 0 Hour Rx Instructions: see taper instructions Spiriva Respimat 2.5 mcg/actuation mist 2 inh inhalation QAM Qty: 4 0RF hydroxyzine HCl 10 mg tablet 10 mg PO TID PRN (Reason: itching) Qty: 5 0RF sucralfate 1 gram tablet 1 g PO TID montelukast 10 mg tablet 10 mg PO DAILY Gemtesa 75 mg tablet 75 mg PO DAILY Discharge Orders: Discharge ED (Routine); Ordered 06/14/24 Ordered By: Rigoberto Liu Referrals: Akila Rivera DO [Primary Care Provider, [employer]] Patient Instructions: Opioid Safety, Pain Management Print Language: Lao Coding Level of Care Code ED Applications Packager for Dc Serrato
[2024-06-13 22:16] LABS: Influenza A NEGATIVE (Negative); Influenza B NEGATIVE (Negative); Respiratory Syncytial Virus Ce NEGATIVE (Negative); SARS-CoV-2 PCR NEGATIVE (Negative)
[2024-06-13 22:28] LABS: Basophils % 0.3 %; Eosinophils # 0.1 10^3/uL (0.0-0.8); Eosinophils % 1.4 %; Hematocrit 36.4 % (36-47); Lymphocytes # 2.5 10^3/uL (0.8-4.8); Lymphocytes % 27.9 %; Mean Corpuscular HGB Conc 30.2 g/dL (30-55); Mean Corpuscular Hemoglobin 29.6 pg (27-33); Mean Corpuscular Volume 98.1 fl (85-98); Mean Platelet Volume 9.5 fL (7.4-10.4); Monocytes # 0.7 10^3/uL (0.2-0.9); Monocytes % 8.2 %; Neutrophils # 5.55 10^3/uL (1.8-7.7); Neutrophils % 61.9 %; Nucleated Red Blood Cells % 0 %; Platelet Count 245 10^3/cmm (157-399); Red Blood Count 3.71 10^6/uL (3.85-5.65); Red Cell Distribution Width 13.1 % (12.1-15.1); White Blood Count 8.99 10^3/uL (3.29-11.43)
[2024-06-13 22:49] LABS: Troponin(5th) Baseline 17 ng/L (0-10)
--- NOTE | 2024-06-13 22:53 | ECG_ITS ---
[facility] Date: [facility]24-[facility]13 Pat Name: Crystal Pierre Department: Room: Gender: Female Seating And Mobility Technologist: : 1965 Requested By: Franck Lobo Order Number: [id number] Clemencia MD: MARISA OLSEN Measurements Intervals [place] Rate: 65 P: 80 WI: 136 QRS: 68 QRSD: 101 T: 70 QT: 402 QTc: 418 Interpretive Statements SINUS RHYTHM Compared to ECG 06/13/2024 20:51:17 No significant changes Electronically Signed On 06-15-2024 16:26:50 CDT by MARISA OLSEN [id number] [id number]
[2024-06-13 22:59] LABS: Alanine Aminotransferase 16 U/L (0-33); Alkaline Phosphatase 77 U/L (35-105); Anion Gap 9.1 (5-19); Aspartate Amino Transferase 13 U/L (0-32); Blood Urea Nitrogen 19 mg/dL (6-20); Calcium 9.5 mg/dL (8.5-10.5); Carbon Dioxide 39 mmol/L (22-29); Chloride 98 mmol/L (98-107); Creatinine Clr Calc Pharmacy 92.9752; Globulin 2.4 g/dL (1.3-4.6); Glomerular Filtration Rate 73.4 mL/min (90-130); Glucose 101 mg/dL (65-115); NT Pro B Type Natriuretic Pept 174 pg/mL (0-125); Osmolality Calculated 296 mOsm/kg (285-295); Potassium 4.1 mmol/L (3.5-5.1); Sodium 142 mmol/L (136-145); Total Bilirubin 0.6 mg/dL (0.15-1.2); Total Protein 6.4 g/dL (6.6-8.7)
[2024-06-13 23:08] VITALS: BP 123/41; PULSE 66; RESP 20; O2SAT 98
[2024-06-13] MEDS: methylPREDNISolone sod succ 125 mg/2 mL INJ IVP (23:10)
[2024-06-13 23:15] LABS: Bilirubin Urine Negative (Negative); Blood Urine Negative (Negative); Glucose Urine UA Negative (Normal); Ketones Urine Negative (Negative); Leukocyte Esterase Urine Negative (Negative); Nitrate Urine Negative (Negative); Protein Urine Negative (Negative); Specific Gravity, Urine 1.017 (1.005-1.030); Urine Appearance Clear (CLEAR); Urine Color Yellow (Yellow); pH Urine 5.5 (5-7)
[2024-06-13 23:19] LABS: Add Urine Microscopic? YES; Bacteria Urine None Seen /hpf; Hyaline Casts Urine 0-4 /lpf; RBC Urine 0-2 /hpf (0-2); Squamous Epithelial Cell Urine 0-5 /hpf (0-5); WBC Urine 0-5 /hpf (0-5)
[2024-06-14] VITALS: BP 116/68; PULSE 62; O2SAT 99
[2024-06-14 00:29] LABS: Troponin 5 2HR 17.04 ng/L (0-10); Troponin 5 2HR Delta 0.04 ABS# (0-10)
[2024-06-14 01:38] VITALS: BP 113/68; PULSE 61; O2SAT 99
== END 2024-06-14 01:00 | disposition home or self-care (01) ==
PROVIDERS: Student in an Organized Health Care Education/Training Program; Emergency Provider Emergency Medicine; PCP Family Medicine
DX: R07.9 Chest pain, unspecified (principal); Z79.82 Long term (current) use of aspirin; Z11.52 Encounter for screening for COVID-19; J44.9 Chronic obstructive pulmonary disease, unspecified; I11.0 Hypertensive heart disease with heart failure; I50.30 Unspecified diastolic (congestive) heart failure
CPT/HCPCS: 36415; 71045; 80048; 80053; 81001; 83880; 84484; 85025; 87637; 93005; 94640; 96374; 99285; J2919; J9999

== ENCOUNTER 2024-06-18 20:10 | Emergency (ER) | payer MEDICARE, MEDICAID, SELFPAY ==
[2023-07-19 09:23] VITALS: BP 132/64; BMI 36.8
[2024-06-18 20:11] VITALS: BP 106/56; PULSE 83; RESP 18; TEMP 36.7; O2SAT 93; BMI 35.0
--- NOTE | 2024-06-18 20:20 | ECG_ITS ---
[facility] Date: 2024-06-18 Pat Name: Crystal Pierre Department: Room: Gender: Female Face Worker: : 1965 Requested By: Tenisha Casey Order Number: [id number] Reading MD: MARISA OLSEN Measurements Intervals [place] Rate: 79 P: 146 [place]: 127 QRS: 97 QRSD: 106 T: 120 QT: 404 QTc: 464 Interpretive Statements SINUS RHYTHM BORDERLINE RIGHT AXIS DEVIATION [QRS AXIS > 90] POSSIBLE RIGHT VENTRICULAR CONDUCTION DELAY [RSR (QR) IN V1/V2] PROBABLE LATERAL MYOCARDIAL INFARCTION , OF INDETERMINATE AGE [35 ms Q WAVE IN I/aVL/V5/V6] Compared to ECG 06/13/2024 22:53:56 NO CHANGE Electronically Signed On 06-20-2024 23:33:11 CDT by MARISA OLSEN [id number]
[2024-06-18] MEDS: LORazepam 1 mg Tablet PO (20:23)
--- NOTE | 2024-06-18 20:24 | W.ED.GENADLT ---
HPI - General Adult General: Chief complaint: General Medical Stated complaint: SEIZURE Time Seen by Provider: 06/18/24 20:13 Source: patient Mode of arrival: ambulatory Limitations: no limitations History of Present Illness: 58-year-old female very well-known to the ER states that her friend had told her today that were good friends and recently she states she became upset and felt like she is having anxiety attack had some shaking send with some improvement currently she denies any seizure denies losing consciousness denies chest pain Associated symptoms: Deny chest pain, dyspnea, headache(s), nausea, rash or vomiting Related Data Home Medications ?Medication ?Instructions ?Recorded ?Confirmed aspirin 81 mg tablet,delayed 81 mg PO QAM 02/15/19 05/23/24 release (Adult Aspirin Regimen) levetiracetam 250 mg tablet 250 mg PO BID 02/15/19 05/23/24 duloxetine 60 mg capsule,delayed 60 mg PO QAM 04/05/21 05/23/24 release montelukast 10 mg tablet 10 mg PO DAILY 03/15/23 05/23/24 sucralfate 1 gram tablet 1 g PO TID 03/15/23 05/23/24 vibegron 75 mg tablet (Gemtesa) 75 mg PO DAILY 06/09/23 05/23/24 gabapentin 300 mg capsule 300 mg PO TID 08/07/23 05/23/24 levothyroxine 100 mcg tablet 100 mcg PO QAM 08/07/23 05/23/24 albuterol sulfate 90 mcg/actuation 2 puff inhalation Q6H PRN 01/19/24 05/23/24 aerosol inhaler Shortness Of Breath Or Wheezing atorvastatin 20 mg tablet 20 mg PO QPM 05/23/24 05/23/24 diclofenac sodium 1 % topical gel 1 g topical QID 05/23/24 05/23/24 magnesium oxide 400 mg (241.3 mg 400 mg PO DAILY 05/23/24 05/23/24 magnesium) tablet Previous Rx's ?Medication ?Instructions ?Recorded bumetanide 2 mg tablet 2 mg PO DAILY #90 tabs 03/01/24 isosorbide mononitrate 30 mg 30 mg PO DAILY #90 tabs 03/01/24 tablet,extended release 24 hr potassium chloride 20 mEq 20 meq PO DAILY #90 tabs 05/06/24 tablet,extended release(part/cryst) hydroxyzine HCl 10 mg tablet 10 mg PO TID PRN itching #5 tabs 05/25/24 prednisone 10 mg tablet See Taper PO DIRECTED #42 tabs 05/25/24 tiotropium bromide 2.5 2 inh inhalation QAM #4 grams 05/25/24 mcg/actuation mist for inhalation (Spiriva Respimat) metoprolol succinate 25 mg See Rx Instructions .Route 06/04/24 tablet,extended release 24 hr .COMPLEX #180 tabs Allergies Allergy/AdvReac Type Severity Reaction Status Date / Time chlorpromazine Allergy Unknown ALGY-Rash Verified 06/18/24 20:15 diphenhydramine Allergy Unknown Unknown Verified 06/18/24 20:15 Iodinated Contrast Media Allergy Unknown ALGY-Hives Verified 06/18/24 20:15 tramadol Allergy Unknown Verified 06/18/24 20:15 amoxicillin AdvReac Unknown ADR-Nausea Verified 06/18/24 20:15 codeine AdvReac Unknown ADR-Vomitin Verified 06/18/24 20:15 g Penicillins AdvReac Unknown ADR-Vomitin Verified 06/18/24 20:15 g Review of Systems Const: Denies: fever(s), chills, body aches or change in appetite Card: Denies: chest pain Resp: Denies: dyspnea GI: Denies: abdominal pain, nausea, vomiting or diarrhea Musc: Denies: neck pain or back pain Skin/Breast: Denies: rash Neuro: Denies: headache(s) Psych: Reports: anxiety PFSH ED PFSH: Medical History Chronic hypoxemic respiratory failure Hypercapnic respiratory failure Hx of myocardial infarction Major depressive disorder, single episode, severe without psychotic features Sleep apnea Psychiatric care Diastolic heart failure Chest pain Lower extremity edema Atypical chest pain Cervical radiculopathy Pain of hand Diastolic CHF 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 Other Adopted Social History Smoking and tobacco/nicotine status: current every day tobacco/nicotine user Quit status (tobacco/nicotine): has quit using Year quit tobacco: 2018- ciggs/day Alcohol intake: never Substance/Drug Use: never Lives independently: Yes Household members: none Housing: Apartment Current occupational status: disabled Do you think of yourself as: Straight/Heterosexual Current gender identity: Female Physical Exam Const: COMMON NORMALS: no acute distress, patient oriented x3 and healthy appearing HENMT: COMMON NORMALS: normocephalic and atraumatic HEAD & SCALP: normocephalic and atraumatic Eye: COMMON NORMALS: conjunctivae normal CONJUNCTIVA: Yes conjunctivae normal Neck/C-Spine: COMMON NORMALS: full ROM and supple Chest: COMMONS NORMALS: normal inspection of the chest Resp: COMMON NORMALS: normal respiratory effort, No retractions, No use of accessory muscles and clear to auscultation bilaterally AUSCULTATION: clear to auscultation bilaterally Cardio: COMMON NORMALS: regular rate, regular rhythm and No murmurs present (Cardio) RATE: regular rate RHYTHM: regular rhythm Extremity: COMMON NORMALS: normal to inspection and full ROM Neuro: COMMON NORMALS: patient oriented x3, moves all extremities and no focal motor deficits Psych: COMMON NORMALS: mental status grossly normal, Normal thought process present and cooperative MOOD & AFFECT: Yes anxious THOUGHT PROCESS: Normal thought process present Skin: COMMON NORMALS: no rashes or lesions noted and no wounds GENERAL SKIN EXAM: no rashes or lesions noted Course Vital Signs: Vital signs: Vital Signs Temperature 98.1 F 06/18/24 20:11 Pulse Rate 83 06/18/24 20:11 Respiratory Rate 18 06/18/24 20:11 Blood Pressure 106/56 06/18/24 20:11 Pulse Oximetry 93 06/18/24 20:11 Oxygen Delivery Me thod Room Air 06/18/24 20:11 MDM - General Adult Medical Decision Making Patient presents for likely anxiety attack she has been well-appearing here she stable for discharge follow-up PCP return if worsening. Medical Records I reviewed the patient's medical records. No radiology studies performed this visit EKG Data EKG 1: I personally reviewed and interpreted this EKG as follows: EKG interpretation date: 06/18/24 EKG interpretation time: 20:20 Interpretation: nsr hr [address] elevation qrs 106 [id number] Discharge Plan Discharge Patient Disposition: Home Clinical Impression: Anxiety Condition: Stable Prescriptions: No Action levetiracetam 250 mg tablet 250 mg PO BID aspirin [Adult Aspirin Regimen] 81 mg tablet,delayed release (DR/EC) 81 mg PO QAM bumetanide 2 mg tablet 2 mg PO DAILY Qty: 90 3RF isosorbide mononitrate 30 mg tablet extended release 24 hr 30 mg PO DAILY Qty: 90 1RF potassium chloride 20 mEq tablet,ER particles/crystals 20 meq PO DAILY Qty: 90 3RF metoprolol succinate 25 mg tablet extended release 24 hr See Rx Instructions .ROUTE .COMPLEX Qty: 180 2RF Dose Instruction: TAKE 2 TABLETS BY MOUTH EVERY DAY Rx Instructions: TAKE 2 TABLETS BY MOUTH EVERY DAY duloxetine 60 mg capsule,delayed release(DR/EC) 60 mg PO QAM levothyroxine 100 mcg tablet 100 mcg PO QAM gabapentin 300 mg capsule 300 mg PO TID albuterol sulfate 90 mcg/actuation HFA aerosol inhaler 2 puff INHALATION Q6H PRN (Reason: Shortness Of Breath Or Wheezing) atorvastatin 20 mg tablet 20 mg PO QPM magnesium oxide 400 mg (241.3 mg magnesium) tablet 400 mg PO DAILY diclofenac sodium 1 % gel 1 g TOPICAL QID prednisone 10 mg tablet See Taper PO DIRECTED Qty: 42 0RF Taper: predniSONE 60-10 60 mg Daily for 2 Days and 0 Hour 50 mg Daily for 2 Days and 0 Hour 40 mg Daily for 2 Days and 0 Hour 30 mg Daily for 2 Days and 0 Hour 20 mg Daily for 2 Days and 0 Hour 10 mg Daily for 2 Days and 0 Hour Rx Instructions: see taper instructions Spiriva Respimat 2.5 mcg/actuation mist 2 inh inhalation QAM Qty: 4 0RF hydroxyzine HCl 10 mg tablet 10 mg PO TID PRN (Reason: itching) Qty: 5 0RF sucralfate 1 gram tablet 1 g PO TID montelukast 10 mg tablet 10 mg PO DAILY Gemtesa 75 mg tablet 75 mg PO DAILY Discharge Orders: Discharge ED (Routine); Ordered 06/18/24 Ordered By: Tenisha Casey Referrals: Akila Rivera DO [Primary Care Provider, [employer]BI[employer] SALES REPRESENTATIVE] Discharge Diet: Advance as tolerated Discharge Activity: Resume usual activity Patient Instructions: Anxiety (ED) Print Language: Maltese Coding Level of Care Code ED Trucker Hand for Dc Serrato
[2024-06-18 21:16] VITALS: BP 127/56; PULSE 79; RESP 16; O2SAT 96
== END 2024-06-18 21:17 | disposition home or self-care (01) ==
PROVIDERS: Emergency Provider Emergency Medicine; PCP Family Medicine
DX: F41.9 Anxiety disorder, unspecified (principal); Z79.82 Long term (current) use of aspirin; Z72.0 Tobacco use; J44.9 Chronic obstructive pulmonary disease, unspecified; I11.0 Hypertensive heart disease with heart failure; I50.30 Unspecified diastolic (congestive) heart failure
CPT/HCPCS: 93005; 99283; J9999

== ENCOUNTER 2024-06-20 14:13 | Outpatient (CLI) | payer MEDICARE, MEDICAID, SELFPAY ==
[2023-07-19 09:23] VITALS: BP 132/64; BMI 36.8
--- NOTE | 2024-06-20 14:18 | MM_ITS ---
WS: [id number] BILATERAL 3D TOMOSYNTHESIS DIGITAL SCREENING MAMMOGRAPHY WITH CAD CLINICAL INFORMATION: SCREENING HISTORY: Screening mammogram. No current complaints. COMPARISON: 2023 TECHNIQUE: Bilateral CC and MLO views. FINDINGS: Scattered fibroglandular densities bilaterally. No suspicious focal mass, asymmetry, calcifications, or architectural distortion. No evidence of malignancy. Punctate and lucent centered calcifications MM/MM scr tomosynthesis [id number] IMPRESSION: DENSITY: There are scattered areas of fibroglandular density. BI-RADS: 2 - Benign. FOLLOW UP: 1 Year Follow-up Recommend return to annual screening mammography.
== END 2024-06-20 14:14 | disposition home or self-care (01) ==
PROVIDERS: PCP Family Medicine; Visit Provider Family Medicine
DX: Z12.31 Encounter for screening mammogram for malignant neoplasm of breast (principal); R92.323 Mammographic fibroglandular density, bilateral breasts; R92.1 Mammographic calcification found on diagnostic imaging of breast
CPT/HCPCS: 77063; 77067

== ENCOUNTER → 2024-06-26 09:58 | Outpatient (BNVA) | payer MEDICAID, MEDICARE, SELFPAY ==
[2023-07-19 09:23] VITALS: BP 132/64; BMI 36.8
== END ==
PROVIDERS: PCP Family Medicine; Visit Provider Internal Medicine
DX: E03.9 Hypothyroidism, unspecified (principal)
CPT/HCPCS: 99214

== ENCOUNTER 2024-06-29 21:54 | Emergency (ER) | payer MEDICARE, MEDICAID, SELFPAY ==
[2023-07-19 09:23] VITALS: BP 132/64; BMI 36.8
--- NOTE | 2024-06-29 21:58 | ECG_ITS ---
[facility] Test Date: 2024-06-29 Pat Name: Crystal Pierre Department: Room: Gender: Female Supervisor Floor Assembly: : 1965 Requested By: Calvin Waggoner Order Number: [id number] Clemencia MD: MARISA OLSEN Measurements Intervals [place] Rate: 82 P: 59 MN: 134 QRS: 41 QRSD: 100 T: 53 QT: 375 QTc: 440 Interpretive Statements SINUS RHYTHM Compared to ECG 06/18/2024 20:20:41 Myocardial infarct finding no longer present Electronically Signed On 07-01-2024 19:06:11 CDT by MARISA OLSEN [id number]
[2024-06-29 22:03] VITALS: BP 135/91; PULSE 80; RESP 18; TEMP 36.8; O2SAT 98; BMI 43.0
[2024-06-29 22:08] VITALS: BP 135/91; PULSE 84; RESP 17; O2SAT 100
--- NOTE | 2024-06-29 22:24 | XRR_ITS ---
PROCEDURE INFORMATION: Exam: XR Chest Exam date and time: 06/29/2024 10:26 PM Age: 58 years old Clinical indication: Chest pressure; Prior surgery; Surgery date: 6+ months; Surgery type: Thyroid; C/O chest pain; Additional info: Cp TECHNIQUE: Imaging protocol: Radiologic exam of the chest. Views: 1 view. COMPARISON: CR (CHEST, ) 06/13/2024 9:03 PM FINDINGS: Lungs: Unremarkable. No consolidation. Pleural spaces: Unremarkable. No pleural effusion. No pneumothorax. Heart/Mediastinum: Unremarkable. No cardiomegaly. Bones/joints: Unremarkable. XR/XR chest 1V portable [id number] IMPRESSION: No acute findings.
[2024-06-29 22:34] LABS: Basophils # 0.1 10^3/uL (0.0-0.1); Eosinophils # 0.1 10^3/uL (0.0-0.8); Eosinophils % 1.3 %; Hematocrit 37.1 % (36-47); Lymphocytes # 1.9 10^3/uL (0.8-4.8); Lymphocytes % 24.1 %; Mean Corpuscular HGB Conc 30.7 g/dL (30-55); Mean Corpuscular Hemoglobin 29.9 pg (27-33); Mean Corpuscular Volume 97.4 fl (85-98); Mean Platelet Volume 10.2 fL (7.4-10.4); Monocytes # 0.8 10^3/uL (0.2-0.9); Monocytes % 9.5 %; Neutrophils # 5.03 10^3/uL (1.8-7.7); Neutrophils % 63.6 %; Nucleated Red Blood Cells % 0 %; Platelet Count 291 10^3/cmm (157-399); Red Blood Count 3.81 10^6/uL (3.85-5.65); Red Cell Distribution Width 13.2 % (12.1-15.1)
--- NOTE | 2024-06-29 22:39 | W.ED.CHESTPA ---
HPI - Chest Pain General: Chief Complaint: Chest Pain Stated Complaint: CP Time Seen by Provider: 06/29/24 22:24 Source: patient Mode of arrival: EMS Limitations: no limitations History of Present Illness: Patient is a 58-year-old female well-known to the emergency department here presenting by ambulance for chest pain that she states began yesterday. Seen here in the emergency department recently for anxiety. Chronically on 3 L of oxygen, has not been newly short of breath requiring more oxygen. States chest pain has been to her left breast goes into her back, noting the pain is severe and constant. No other new symptoms reported. She is stating that this pain is similar to the pain that she has had constantly for years. No other new symptoms at this time. Vitals unremarkable. MD complaint: chest pain Onset (ago): day(s) Timing of current episode: constant Prior episodes: Yes Onset: during rest Pain location: left chest Pain radiation: back Severity: similar to previous episodes Quality: tearing and fullness Relieving factors: nothing Exacerbating factors: nothing Associated symptoms: Deny abdominal pain, dyspnea, fever(s), nausea, palpitations or vomiting Related Data Home Medications ?Medication ?Instructions ?Recorded ?Confirmed aspirin 81 mg tablet,delayed 81 mg PO QAM 02/15/19 06/25/24 release (Adult Aspirin Regimen) levetiracetam 250 mg tablet 250 mg PO BID 02/15/19 06/25/24 duloxetine 60 mg capsule,delayed 60 mg PO QAM 04/05/21 06/25/24 release montelukast 10 mg tablet 10 mg PO DAILY 03/15/23 06/25/24 sucralfate 1 gram tablet 1 g PO TID 03/15/23 06/25/24 vibegron 75 mg tablet (Gemtesa) 75 mg PO DAILY 06/09/23 06/25/24 gabapentin 300 mg capsule 300 mg PO TID 08/07/23 06/25/24 albuterol sulfate 90 mcg/actuation 2 puff inhalation Q6H PRN 01/19/24 06/25/24 aerosol inhaler Shortness Of Breath Or Wheezing atorvastatin 20 mg tablet 20 mg PO QPM 05/23/24 06/25/24 diclofenac sodium 1 % topical gel 1 g topical QID 05/23/24 06/25/24 magnesium oxide 400 mg (241.3 mg 400 mg PO DAILY 05/23/24 06/25/24 magnesium) tablet Previous Rx's ?Medication ?Instructions ?Recorded bumetanide 2 mg tablet 2 mg PO DAILY #90 tabs 03/01/24 isosorbide mononitrate 30 mg 30 mg PO DAILY #90 tabs 03/01/24 tablet,extended release 24 hr potassium chloride 20 mEq 20 meq PO DAILY #90 tabs 05/06/24 tablet,extended release(part/cryst) hydroxyzine HCl 10 mg tablet 10 mg PO TID PRN itching #5 tabs 05/25/24 prednisone 10 mg tablet See Taper PO DIRECTED #42 tabs 05/25/24 tiotropium bromide 2.5 2 inh inhalation QAM #4 grams 05/25/24 mcg/actuation mist for inhalation (Spiriva Respimat) metoprolol succinate 25 mg See Rx Instructions .Route 06/04/24 tablet,extended release 24 hr .COMPLEX #180 tabs levothyroxine 112 mcg tablet 112 mcg PO DAILY #30 tabs 06/26/24 (Synthroid) Allergies Allergy/AdvReac Type Severity Reaction Status Date / Time chlorpromazine Allergy Unknown ALGY-Rash Verified 06/25/24 16:26 diphenhydramine Allergy Unknown Unknown Verified 06/25/24 16:26 Iodinated Contrast Media Allergy Unknown ALGY-Hives Verified 06/25/24 16:26 morphine Allergy ADR-Agitate Verified 06/29/24 23:09 d tramadol Allergy Unknown Verified 06/25/24 16:26 amoxicillin AdvReac Unknown ADR-Nausea Verified 06/25/24 16:26 codeine AdvReac Unknown ADR-Vomitin Verified 06/25/24 16:26 g Penicillins AdvReac Unknown ADR-Vomitin Verified 06/25/24 16:26 g Review of Systems General: Reports: 10 or more systems reviewed and unremarkable except in HPI and below Const: Denies: fever(s), chills or fatigue Eyes: Denies: change in vision ENMT: Denies: throat pain, ear or mastoid pain or nasal discharge Card: Reports: chest pain; Denies: palpitations, swelling of feet/ankles or lightheadedness Resp: Denies: dyspnea or wheezing GI: Denies: abdominal pain, nausea, vomiting, diarrhea or constipation : Denies: flank pain, difficulty voiding, dysuria or urinary frequency Musc: Reports: back pain; Denies: neck pain or joint pain Skin/Breast: Denies: rash Neuro: Denies: headache(s), numbness in extremities or weakness in extremities PFSH ED PFSH: Medical History Chronic hypoxemic respiratory failure Hypercapnic respiratory failure Hx of myocardial infarction Major depressive disorder, single episode, severe without psychotic features Sleep apnea Psychiatric care Diastolic heart failure Chest pain Lower extremity edema Atypical chest pain Cervical radiculopathy Pain of hand Diastolic CHF 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 Other Adopted Social History Smoking and tobacco/nicotine status: current every day tobacco/nicotine user Quit status (tobacco/nicotine): has quit using Year quit tobacco: 2019 - 1-5 ciggs/day Alcohol intake: never Substance/Drug Use: never Lives independently: Yes Household members: none Housing: Apartment Current occupational status: disabled Do you think of yourself as: Straight/Heterosexual Current gender identity: Female Physical Exam Const: COMMON NORMALS: no acute distress, patient oriented x3 and no limitations GENERAL APPEARANCE: cooperative, comfortable and disheveled ORIENTATION/CONSCIOUSNESS: Yes awake, Yes oriented to person, Yes oriented to place and Yes oriented to time HENMT: COMMON NORMALS: normocephalic, atraumatic and hearing grossly normal bilaterally HEAD & SCALP: normocephalic and atraumatic Eye: COMMON NORMALS: Equal, round and reactive pupils present and conjunctivae normal CONJUNCTIVA: Yes conjunctivae normal PUPIL: Yes Equal, round and reactive pupils present Neck/C-Spine: COMMON NORMALS: full ROM, supple and no JVD Resp: COMMON NORMALS: normal respiratory effort, No retractions, No use of accessory muscles and clear to auscultation bilaterally AUSCULTATION: clear to auscultation bilaterally Cardio: COMMON NORMALS: no JVD, regular rate, regular rhythm, No clicks present (Cardio), No murmurs present (Cardio) and No rub (Cardio) RATE: regular rate RHYTHM: regular rhythm GI: COMMON NORMALS: Normal to inspection, nondistended, normoactive bowel sounds present, Soft to palpation and non-tender AUSCULTATION: Yes normoactive bowel sounds PALPATION: Yes Soft to palpation RECTAL EXAM: deferred Back/Pelvis: COMMON NORMALS: thoracic and lumbar spine normal to inspection, no thoracic nor lumbar tenderness and thoraco-lumbar ROM normal Extremity: COMMON NORMALS: normal to inspection, full ROM and capillary refill normal NARRATIVE EXTREMITY EXAM: Chronic venous stasis changes bilaterally, bilateral 2+ pitting edema. Neuro: COMMON NORMALS: patient oriented x3, moves all extremities, no focal motor deficits and no sensory deficits noted SENSORIUM/ORIENTATION: Yes oriented to person, Yes oriented to place and Yes oriented to time Psych: COMMON NORMALS: mental status grossly normal and Normal thought process present THOUGHT PROCESS: Normal thought process present Skin: COMMON NORMALS: no rashes or lesions noted GENERAL SKIN EXAM: no rashes or lesions noted Course Vital Signs: Vital signs: Vital Signs Temperature 98.3 F 06/29/24 22:03 Pulse Rate 84 06/29/24 22:08 Respiratory Rate 17 06/29/24 22:08 Blood Pressure 135/91 06/29/24 22:08 Pulse Oximetry 100 06/29/24 22:08 Oxygen Delivery Me thod Nasal Cannula 06/29/24 22:08 Oxygen Flow Rate 3 06/29/24 22:08 MDM - Chest Pain Medical Decision Making Patient presented by EMS, well-known to the emergency department here, for chest pain she has been seen here multiple times over the past. Stated it went through to her back, started yesterday. Lab work was all unremarkable and unchanged from previous lab work. X-ray unremarkable, EKG normal. She switched her complaint on recheck to stating she did not have chest pain it was left hand pain and swelling that she reported to me she has been trying to tell people about for some time now. Told her we will treat her pain and have her see her regular doctor for general reevaluation, no reason for admission or further lab work to obtain at this time. Lab Data 06/29/24 22:05 06/29/24 22:05 Radiology Impressions Chest X-Ray 06/29/24 22:24 IMPRESSION: No acute findings. Laboratory Results WBC 7.90 10^3/uL (3.29-11.43) 06/29/24 22:05 RBC 3.81 10^6/uL (3.85-5.65) L 06/29/24 22:05 Hgb 11.40 g/dL (11.27-16.99) 06/29/24 22:05 Hct 37.1 % (36-47) 06/29/24 22:05 MCV 97.4 fl (85-98) 06/29/24 22:05 MCH 29.9 pg (27-33) 06/29/24 22:05 MCHC 30.7 g/dL (30-55) 06/29/24 22:05 RDW 13.2 % (12.1-15.1) 06/29/24 22:05 Plt Count 291 10^3/cmm (157-399) 06/29/24 22:05 MPV 10.2 fL (7.4-10.4) 06/29/24 22:05 Neut % (Auto) 63.6 % 06/29/24 22:05 Lymph % (Auto) 24.1 % 06/29/24 22:05 Wood % (Auto) 9.5 % 06/29/24 22:05 Eos % (Auto) 1.3 % 06/29/24 22:05 Baso % (Auto) 1.0 % 06/29/24 22:05 Neut # (Auto) 5.03 10^3/uL (1.8-7.7) 06/29/24 22:05 Lymph # (Auto) 1.9 10^3/uL (0.8-4.8) 06/29/24 22:05 Wood # (Auto) 0.8 10^3/uL (0.2-0.9) 06/29/24 22:05 Eos # (Auto) 0.1 10^3/uL (0.0-0.8) 06/29/24 22:05 Baso # (Auto) 0.1 10^3/uL (0.0-0.1) 06/29/24 22:05 Nucleated RBC % (auto) 0 % 06/29/24 22:05 Nucleated RBCs # 0.0 /100WBC 06/29/24 22:05 Sodium 144 mmol/L (136-145) 06/29/24 22:05 Potassium 4.0 mmol/L (3.5-5.1) 06/29/24 22:05 Chloride 99 mmol/L (98-107) 06/29/24 22:05 Carbon Dioxide 36 mmol/L (22-29) H 06/29/24 22:05 Anion Gap 13.0 (5-19) 06/29/24 22:05 BUN 16 mg/dL (6-20) 06/29/24 22:05 Creatinine 1.1 mg/dL (0.5-0.9) H 06/29/24 22:05 GFR Calculation 50.8 mL/min (90-130) L 06/29/24 22:05 Glucose 107 mg/dL (65-115) 06/29/24 22:05 Calculated Osmolality 300 mOsm/kg (285-295) H 06/29/24 22:05 Calcium 9.1 mg/dL (8.5-10.5) 06/29/24 22:05 Total Bilirubin 0.6 mg/dL (0.15-1.2) 06/29/24 22:05 AST 25 U/L (0-32) 06/29/24 22:05 ALT 16 U/L (0-33) 06/29/24 22:05 Alkaline Phosphatase 97 U/L (35-105) 06/29/24 22:05 Troponin T Baseline 25 ng/L (0-10) H 06/29/24 22:05 Total Protein 6.6 g/dL (6.6-8.7) 06/29/24 22:05 Albumin 4.0 g/dL (3.5-5.2) 06/29/24 22:05 Globulin 2.6 g/dL (1.3-4.6) 06/29/24 22:05 All radiology interpretation(s) finalized by discharge Discharge Plan Discharge Patient Disposition: Home Clinical Impression: Chronic chest pain Condition: Stable Prescriptions: No Action levetiracetam 250 mg tablet 250 mg PO BID aspirin [Adult Aspirin Regimen] 81 mg tablet,delayed release (DR/EC) 81 mg PO QAM levothyroxine [Synthroid] 112 mcg tablet 112 mcg PO DAILY Qty: 30 3RF bumetanide 2 mg tablet 2 mg PO DAILY Qty: 90 3RF isosorbide mononitrate 30 mg tablet extended release 24 hr 30 mg PO DAILY Qty: 90 1RF potassium chloride 20 mEq tablet,ER particles/crystals 20 meq PO DAILY Qty: 90 3RF metoprolol succinate 25 mg tablet extended release 24 hr See Rx Instructions .ROUTE .COMPLEX Qty: 180 2RF Dose Instruction: TAKE 2 TABLETS BY MOUTH EVERY DAY Rx Instructions: TAKE 2 TABLETS BY MOUTH EVERY DAY duloxetine 60 mg capsule,delayed release(DR/EC) 60 mg PO QAM gabapentin 300 mg capsule 300 mg PO TID albuterol sulfate 90 mcg/actuation HFA aerosol inhaler 2 puff INHALATION Q6H PRN (Reason: Shortness Of Breath Or Wheezing) atorvastatin 20 mg tablet 20 mg PO QPM magnesium oxide 400 mg (241.3 mg magnesium) tablet 400 mg PO DAILY diclofenac sodium 1 % gel 1 g TOPICAL QID prednisone 10 mg tablet See Taper PO DIRECTED Qty: 42 0RF Taper: predniSONE 60-10 60 mg Daily for 2 Days and 0 Hour 50 mg Daily for 2 Days and 0 Hour 40 mg Daily for 2 Days and 0 Hour 30 mg Daily for 2 Days and 0 Hour 20 mg Daily for 2 Days and 0 Hour 10 mg Daily for 2 Days and 0 Hour Rx Instructions: see taper instructions Spiriva Respimat 2.5 mcg/actuation mist 2 inh inhalation QAM Qty: 4 0RF hydroxyzine HCl 10 mg tablet 10 mg PO TID PRN (Reason: itching) Qty: 5 0RF sucralfate 1 gram tablet 1 g PO TID montelukast 10 mg tablet 10 mg PO DAILY Gemtesa 75 mg tablet 75 mg PO DAILY Discharge Orders: Discharge ED (Routine); Ordered 06/29/24 Ordered By: Calvin Ryan Referrals: Akila Rivera DO [Primary Care Provider, RECEIVING CHECKER] Patient Instructions: Chest Pain (ED) Activity Restrictions/Additional Instructions: Continue taking home medications. Follow-up with regular doctor for any further complaints. Return with any new chest pain, shortness of breath, or other major concerns. Print Language: Venezuelan Coding Level of Care Code ED Boat Loader Helper for Dc Serrato
[2024-06-29 22:50] LABS: Alanine Aminotransferase 16 U/L (0-33); Alkaline Phosphatase 97 U/L (35-105); Aspartate Amino Transferase 25 U/L (0-32); Blood Urea Nitrogen 16 mg/dL (6-20); Calcium 9.1 mg/dL (8.5-10.5); Carbon Dioxide 36 mmol/L (22-29); Chloride 99 mmol/L (98-107); Creatinine Clr Calc Pharmacy 75.5048; Globulin 2.6 g/dL (1.3-4.6); Glomerular Filtration Rate 50.8 mL/min (90-130); Glucose 107 mg/dL (65-115); Osmolality Calculated 300 mOsm/kg (285-295); Sodium 144 mmol/L (136-145); Total Bilirubin 0.6 mg/dL (0.15-1.2); Total Protein 6.6 g/dL (6.6-8.7); Troponin(5th) Baseline 25 ng/L (0-10)
--- NOTE | 2024-06-29 23:24 | PC.NURSE ---
Went to give patient Morphine IV and she stated she was allergic to Morphine. I doubled checked the allergy list and it was not on her allergy list. I asked her what type of reaction she has and she stated It changes my whole demeanor . I added it to her allergy list and informed the PA.
[2024-06-29] MEDS: HYDROmorphone 0.5 MG/0.5 ML INJ IVP (23:31)
[2024-06-29 23:48] VITALS: BP 137/73; PULSE 84; RESP 21; O2SAT 98
== END 2024-06-29 23:51 | disposition home or self-care (01) ==
PROVIDERS: Emergency Provider Physician Assistant; PCP Family Medicine
DX: R07.9 Chest pain, unspecified (principal); Z99.81 Dependence on supplemental oxygen; J96.11 Chronic respiratory failure with hypoxia; I25.2 Old myocardial infarction; I50.32 Chronic diastolic (congestive) heart failure; J44.9 Chronic obstructive pulmonary disease, unspecified; E03.9 Hypothyroidism, unspecified; I11.0 Hypertensive heart disease with heart failure; G40.909 Epilepsy, unspecified, not intractable, without status epilepticus; F17.210 Nicotine dependence, cigarettes, uncomplicated; Z79.899 Other long term (current) drug therapy; Z79.82 Long term (current) use of aspirin; Z79.890 Hormone replacement therapy
CPT/HCPCS: 36415; 71045; 80053; 84484; 85025; 93005; 96374; 99285; J1171; J2270

== ENCOUNTER 2024-07-03 16:43 | Emergency (ER) | payer MEDICARE, MEDICAID, SELFPAY ==
[2023-07-19 09:23] VITALS: BP 132/64; BMI 36.8
[2024-07-03 17:38] VITALS: BP 135/77; PULSE 84; RESP 16; TEMP 36.8; O2SAT 90
== END 2024-07-03 18:16 | disposition left against medical advice (07) ==
PROVIDERS: Emergency Provider Family Medicine; PCP Family Medicine
DX: Z53.21 Procedure and treatment not carried out due to patient leaving prior to being seen by health care provider (principal); M79.642 Pain in left hand; M25.532 Pain in left wrist
CPT/HCPCS: 73090; 73130

== ENCOUNTER 2024-07-09 17:41 | Emergency (ER) | payer MEDICARE, MEDICAID, SELFPAY ==
[2023-07-19 09:23] VITALS: BP 132/64; BMI 36.8
[2024-07-09 17:57] VITALS: BP 120/77; PULSE 72; TEMP 36.8; O2SAT 100
--- NOTE | 2024-07-09 20:36 | CTR_ITS ---
PROCEDURE INFORMATION: Exam: CT Head Without Contrast Exam date and time: 07/09/2024 9:07 PM Age: 58 years old Clinical indication: Injury or trauma; Fall; Concussion/head injury; Additional info: Fall, head injury TECHNIQUE: Imaging protocol: Computed tomography of the head without contrast. Radiation optimization: All CT scans at this facility use at least one of these dose optimization techniques: automated exposure control; mA and/or kV adjustment per patient size (includes targeted exams where dose is matched to clinical indication); or iterative reconstruction. COMPARISON: CT angio headneck* [id number] 05/08/2024 20:16 RADIATION DOSE METRICS: Total DLP (mGy-cm): 1135.38 FINDINGS: Brain: The patient is asymmetrically positioned within the gantry slightly challenging to resolution. The midline is intact. Beam hardening artifact obscures resolution through the posterior fossa structures. No hemorrhage. Unremarkable white matter. No mass effect. Cerebral ventricles: Ventricles demonstrate normal size shape and configuration and are felt to be in proportion to the degree of widening of the sulci, sylvian fissures and basilar cisterns. Paranasal sinuses: Visualized sinuses are unremarkable. No fluid levels. Mastoid air cells: Visualized mastoid air cells are well aerated. Orbital cavities: Bilateral exophthalmos is noted present. May also be slight prominence of the medial rectus muscles. Bones: Mild hyperostosis frontalis interna is noted range of normal. No acute fracture. Soft tissues: Unremarkable. CT/CT head wo con* [id number] IMPRESSION: 1. No acute intracranial head CT abnormalities identified. 2. 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
--- NOTE | 2024-07-09 21:43 | XRR_ITS ---
PROCEDURE INFORMATION: Exam: XR Right Knee Exam date and time: 07/09/2024 9:44 PM Age: 58 years old Clinical indication: Injury or trauma; Fall; Swelling (edema); Knee; Right; Additional info: Fall today TECHNIQUE: Imaging protocol: Radiologic exam of the right knee. Views: 1 or 2 views. COMPARISON: CR XR knee RT 3V* [id number] 28/07/2023 12:01 FINDINGS: Bones/joints: Slight spurring about the periarticular margins of the patella are noted on the lateral view. This is similar to prior study. Otherwise the visualized bony cortical margins and articulations appear to be intact and unremarkable except for slight narrowing of the medial compartment. Trabecular architecture is preserved. Soft tissues: There is slight fullness in the suprapatellar bursa. XR/XR knee RT 1-2V [id number] IMPRESSION: 1. Mild osteoarthritic/degenerative changes, as described. 2. Nonspecific mild joint effusion.
[2024-07-09 22:00] VITALS: BP 122/78; PULSE 68; RESP 14; O2SAT 100
[2024-07-10] MEDS: acetaminophen 325 mg Tablet 650 MG PO (00:36)
[2024-07-10 00:40] VITALS: BP 111/79; PULSE 67; RESP 14; O2SAT 100
[2024-07-10 01:41] VITALS: BP 115/75; PULSE 61; RESP 16; O2SAT 100
--- NOTE | 2024-07-10 05:30 | W.ED.FALL ---
HPI - Fall General: Chief Complaint: Fall Stated Complaint: Fall, Leg Pain Time Seen by Provider: 07/09/24 20:48 History of Present Illness: Patient is a well-appearing 58-year-old female seen for fall which occurred at home. She states that she fell forward striking her right knee and then gently striking the right side of her head. She describes 3 of 10 head pain and 2 of 10 knee pain which is worse when she walks but she is able to walk. She denies losing consciousness. She has no neck pain or other injuries from the fall. Related Data Home Medications ?Medication ?Instructions ?Recorded ?Confirmed aspirin 81 mg tablet,delayed 81 mg PO QAM 02/15/19 07/03/24 release (Adult Aspirin Regimen) levetiracetam 250 mg tablet 250 mg PO BID 02/15/19 07/03/24 duloxetine 60 mg capsule,delayed 60 mg PO QAM 04/05/21 07/03/24 release montelukast 10 mg tablet 10 mg PO DAILY 03/15/23 07/03/24 sucralfate 1 gram tablet 1 g PO TID 03/15/23 07/03/24 vibegron 75 mg tablet (Gemtesa) 75 mg PO DAILY 06/09/23 07/03/24 gabapentin 300 mg capsule 300 mg PO TID 08/07/23 07/03/24 albuterol sulfate 90 mcg/actuation 2 puff inhalation Q6H PRN 01/19/24 07/03/24 aerosol inhaler Shortness Of Breath Or Wheezing atorvastatin 20 mg tablet 20 mg PO QPM 05/23/24 07/03/24 diclofenac sodium 1 % topical gel 1 g topical QID 05/23/24 07/03/24 magnesium oxide 400 mg (241.3 mg 400 mg PO DAILY 05/23/24 07/03/24 magnesium) tablet Previous Rx's ?Medication ?Instructions ?Recorded bumetanide 2 mg tablet 2 mg PO DAILY #90 tabs 03/01/24 isosorbide mononitrate 30 mg 30 mg PO DAILY #90 tabs 03/01/24 tablet,extended release 24 hr potassium chloride 20 mEq 20 meq PO DAILY #90 tabs 05/06/24 tablet,extended release(part/cryst) hydroxyzine HCl 10 mg tablet 10 mg PO TID PRN itching #5 tabs 05/25/24 prednisone 10 mg tablet See Taper PO DIRECTED #42 tabs 05/25/24 tiotropium bromide 2.5 2 inh inhalation QAM #4 grams 05/25/24 mcg/actuation mist for inhalation (Spiriva Respimat) metoprolol succinate 25 mg See Rx Instructions .Route 06/04/24 tablet,extended release 24 hr .COMPLEX #180 tabs levothyroxine 112 mcg tablet 112 mcg PO DAILY #30 tabs 06/26/24 (Synthroid) Allergies Allergy/AdvReac Type Severity Reaction Status Date / Time chlorpromazine Allergy Unknown ALGY-Rash Verified 07/09/24 18:04 diphenhydramine Allergy Unknown Unknown Verified 07/09/24 18:04 Iodinated Contrast Media Allergy Unknown ALGY-Hives Verified 07/09/24 18:04 morphine Allergy ADR-Agitate Verified 07/09/24 18:04 d tramadol Allergy Unknown Verified 07/09/24 18:04 amoxicillin AdvReac Unknown ADR-Nausea Verified 07/09/24 18:04 codeine AdvReac Unknown ADR-Vomitin Verified 07/09/24 18:04 g Penicillins AdvReac Unknown ADR-Vomitin Verified 07/09/24 18:04 g PFSH ED PFSH: Medical History Chronic hypoxemic respiratory failure Hypercapnic respiratory failure Hx of myocardial infarction Major depressive disorder, single episode, severe without psychotic features Sleep apnea Psychiatric care Diastolic heart failure Chest pain Lower extremity edema Atypical chest pain Cervical radiculopathy Pain of hand Diastolic CHF 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 Other Adopted Social History Smoking and tobacco/nicotine status: current every day tobacco/nicotine user Quit status (tobacco/nicotine): has quit using Year quit tobacco: 2019 - 1-5 ciggs/day Alcohol intake: never Substance/Drug Use: never Lives independently: Yes Household members: none Housing: Apartment Current occupational status: disabled Do you think of yourself as: Straight/Heterosexual Current gender identity: Female Physical Exam Const: COMMON NORMALS: no acute distress, patient oriented x3 and alert HENMT: COMMON NORMALS: normocephalic and atraumatic HEAD & SCALP: normocephalic and atraumatic Eye: COMMON NORMALS: Equal, round and reactive pupils present, EOMs intact bilaterally and no scleral icterus PUPIL: Yes Equal, round and reactive pupils present Resp: COMMON NORMALS: normal respiratory effort and No retractions Cardio: COMMON NORMALS: regular rate, regular rhythm and No murmurs present (Cardio) RATE: regular rate RHYTHM: regular rhythm GI: COMMON NORMALS: Normal to inspection, nondistended, normoactive bowel sounds present, Soft to palpation and non-tender PALPATION: Yes Soft to palpation Extremity: NARRATIVE EXTREMITY EXAM: No obvious swelling or deformity of the right knee. Very mild effusion palpated. Neuro: COMMON NORMALS: patient oriented x3 SENSORIUM/ORIENTATION: Yes alert Skin: COMMON NORMALS: no rashes or lesions noted GENERAL SKIN EXAM: no rashes or lesions noted Course Vital Signs: Vital signs: Vital Signs Temperature 98.3 F 07/09/24 17:57 Pulse Rate 61 07/10/24 01:41 Respiratory Rate 16 07/10/24 01:41 Blood Pressure 115/75 07/10/24 01:41 Pulse Oximetry 100 07/10/24 01:41 Oxygen Delivery Me thod Nasal Cannula 07/09/24 17:57 Oxygen Flow Rate 4 07/09/24 17:57 MDM - Fall Medical Decision Making In summary, patient is a well-appearing 58-year-old female seen for fall. X-ray of the right knee shows nothing acute. CT brain shows nothing acute. I suspect a very mild concussion at worst. She is able to ambulate. She will be discharged in stable and improved condition with follow-up primary care as needed Lab Data Radiology Impressions Head CT 07/09/24 20:36 IMPRESSION: 1. No acute intracranial head CT abnormalities identified. 2. 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 Mild osteoarthritic/degenerative changes, as described. 2. Nonspecific mild joint effusion. All radiology interpretation(s) finalized by discharge Discharge Plan Discharge Patient Disposition: Home Clinical Impression: Fall, Contusion of head, Contusion of knee, right Condition: Stable Prescriptions: No Action levetiracetam 250 mg tablet 250 mg PO BID aspirin [Adult Aspirin Regimen] 81 mg tablet,delayed release (DR/EC) 81 mg PO QAM levothyroxine [Synthroid] 112 mcg tablet 112 mcg PO DAILY Qty: 30 3RF bumetanide 2 mg tablet 2 mg PO DAILY Qty: 90 3RF isosorbide mononitrate 30 mg tablet extended release 24 hr 30 mg PO DAILY Qty: 90 1RF potassium chloride 20 mEq tablet,ER particles/crystals 20 meq PO DAILY Qty: 90 3RF metoprolol succinate 25 mg tablet extended release 24 hr See Rx Instructions .ROUTE .COMPLEX Qty: 180 2RF Dose Instruction: TAKE 2 TABLETS BY MOUTH EVERY DAY Rx Instructions: TAKE 2 TABLETS BY MOUTH EVERY DAY duloxetine 60 mg capsule,delayed release(DR/EC) 60 mg PO QAM gabapentin 300 mg capsule 300 mg PO TID albuterol sulfate 90 mcg/actuation HFA aerosol inhaler 2 puff INHALATION Q6H PRN (Reason: Shortness Of Breath Or Wheezing) atorvastatin 20 mg tablet 20 mg PO QPM magnesium oxide 400 mg (241.3 mg magnesium) tablet 400 mg PO DAILY diclofenac sodium 1 % gel 1 g TOPICAL QID prednisone 10 mg tablet See Taper PO DIRECTED Qty: 42 0RF Taper: predniSONE 60-10 60 mg Daily for 2 Days and 0 Hour 50 mg Daily for 2 Days and 0 Hour 40 mg Daily for 2 Days and 0 Hour 30 mg Daily for 2 Days and 0 Hour 20 mg Daily for 2 Days and 0 Hour 10 mg Daily for 2 Days and 0 Hour Rx Instructions: see taper instructions Spiriva Respimat 2.5 mcg/actuation mist 2 inh inhalation QAM Qty: 4 0RF hydroxyzine HCl 10 mg tablet 10 mg PO TID PRN (Reason: itching) Qty: 5 0RF sucralfate 1 gram tablet 1 g PO TID montelukast 10 mg tablet 10 mg PO DAILY Gemtesa 75 mg tablet 75 mg PO DAILY Discharge Orders: Discharge ED (Routine); Ordered 07/10/24 Ordered By: Arsh Pearson Referrals: Akila Rivera DO [Primary Care Provider, TERMINAL WORKER] Discharge Diet: Advance as tolerated Discharge Activity: Increase activity as tolerated Patient Instructions: Concussion/Head Injury - Adult, Fall Prevention (ED) Activity Restrictions/Additional Instructions: Fortunately, CT scan of your head shows no evidence of intracranial bleed or skull fracture. Your symptoms are consistent with concussion. You also have a small effusion and contusion of the right knee. Please get plenty of rest and take [id number] medication for your pains associated with the fall. Print Language: Surinamese Coding Level of Care Code ED Marketing Professor for Dc Serrato
== END 2024-07-10 01:52 | disposition home or self-care (01) ==
PROVIDERS: Emergency Provider Student in an Organized Health Care Education/Training Program; PCP Family Medicine
DX: S00.93XA Contusion of unspecified part of head, initial encounter (principal); S80.01XA Contusion of right knee, initial encounter; Z79.82 Long term (current) use of aspirin; Z72.0 Tobacco use; J44.9 Chronic obstructive pulmonary disease, unspecified; I11.0 Hypertensive heart disease with heart failure; I50.30 Unspecified diastolic (congestive) heart failure; W19.XXXA Unspecified fall, initial encounter
CPT/HCPCS: 70450; 73560; 99284; J9999

== ENCOUNTER → 2024-07-17 09:47 | Outpatient (BNVA) | payer MEDICARE, MEDICAID, SELFPAY ==
[2023-07-19 09:23] VITALS: BP 132/64; BMI 36.8
== END ==
PROVIDERS: PCP Family Medicine; Visit Provider Internal Medicine Cardiovascular Disease
DX: I11.0 Hypertensive heart disease with heart failure (principal); I50.32 Chronic diastolic (congestive) heart failure; I47.10 Supraventricular tachycardia, unspecified; I35.1 Nonrheumatic aortic (valve) insufficiency; Z79.82 Long term (current) use of aspirin; Z99.81 Dependence on supplemental oxygen; Z87.891 Personal history of nicotine dependence; I25.2 Old myocardial infarction
CPT/HCPCS: 99214

== ENCOUNTER 2024-08-13 20:00 | Outpatient (CLI) | payer MEDICARE, MEDICAID, SELFPAY ==
[2023-07-19 09:23] VITALS: BP 132/64; BMI 36.8
[2024-07-22 10:43] VITALS: BP 123/72; BMI 39.3
== END 2024-08-13 20:01 | disposition home or self-care (01) ==
PROVIDERS: PCP Family Medicine; Visit Provider Internal Medicine Pulmonary Disease
DX: G47.33 Obstructive sleep apnea (adult) (pediatric) (principal); J96.22 Acute and chronic respiratory failure with hypercapnia
CPT/HCPCS: 95811

== ENCOUNTER 2024-08-16 16:16 | Emergency (ER) | payer MEDICARE, MEDICAID, SELFPAY ==
[2024-07-22 10:43] VITALS: BP 123/72; BMI 39.3
[2024-08-16 16:20] VITALS: BP 129/73; PULSE 62; RESP 20; TEMP 36.7; O2SAT 96; BMI 36.3
--- NOTE | 2024-08-16 16:23 | ECG_ITS ---
[facility] Test Date: 2024-08-16 Pat Name: Crystal Pierre Department: Room: Gender: Female Product Safety Head: : 1965 Requested By: Joshua Garcia Order Number: [id number] Clemencia MD: Joseph Wilson M.D. Measurements Intervals [place] Rate: 75 P: 52 ME: 130 QRS: 26 QRSD: 101 T: 34 QT: 391 QTc: 439 Interpretive Statements SINUS RHYTHM WITH SINUS ARRHYTHMIA MINIMAL ST DEPRESSION [0.025+ mV ST DEPRESSION] Compared to ECG 06/29/2024 21:58:51 ST (T wave) deviation now present Electronically Signed On 08-20-2024 14:59:50 CDT by Joseph Wilson M.D. [id number]
--- OUTSIDE RECORDS SUMMARY | 2024-08-16 16:28 | XMS_ITS | Patient Health Record ---
Author Organization [facility] Address [address] [place] [address] Care Team Providers Care Slag Skimmer Name Role Phone Thu Camacho Primary Care Provider [phone] Allergies Allergen (clinical drug ingredient) Drug/Non Drug Allergy documented on EMR Reaction Allergy Type Onset Date Status amoxicillin Amoxicillin Unknown Drug Allergy Act dayan diphenhydramine Benadryl Unknown Drug Allergy A ctive Thorazine Unknown Drug Allergy Active tramadol Tramadol HCl Unknown Drug Allergy Acti ve Iodinated contrast media (substance) Iodinated Diagnostic Agents Unknown Drug Allergy 02/20/2019 Active Penicillin Unknown Drug Allergy Active Reason For Referral No Information Medications Medication SIG (Take, Route, Frequency, Duration) Notes Start Date End Date Status Ipratropium-Albuterol 0.5-2.5 (3) MG/3ML 3 ml as needed Inhalation every 6-8 hrs for 30 days Active Vitamin D (Cholecalciferol) 25 MCG (1000 UT) 1 capsule Orally Once a day Active Magnesium Oxide 400 MG 1 tablet Orally O nce a day for 30 day(s) Active Spironolactone 25 MG TAKE 1 TABLET BY MO UTH EVERY DAY IN THE MORNING for 90 Active Pantoprazole Sodium 40 MG TAKE 1 TABLET BY MOUTH EVERY DAY IN THE MORNING for 90 Active Metoprolol Tartrate 50 MG 1 tablet with food Orally Twice a day for 30 day(s) Active Singulair 10 MG 1 tablet in the even ing Orally Once a day for 30 day(s) Active Symbicort 160-4.5 MCG/ACT 2 puffs Inhala tion Twice a day Active Calcitonin (Cochran) 200 UNIT/ACT 1 spray in 1 nostril, alternating nostrils daily Nasally Once a day Active Levothyroxine Sodium 88 MCG TAKE ONE TAB LET BY MOUTH DAILY SEPERATED FROM OTHER MEDS AND ON AN EMPTY STOMACH for 90 Active Bumetanide 2 MG 1 tab in AM Orally e very 24 hrs Active metOLazone 2.5 MG 1 tablet Orally Once a day in AM for 5 days 03/20/2019 Active Aspirin 81 MG 1 tablet Orally Once a day for 30 day(s) Active Baclofen 5 MG 1 tablet with food o r milk prn Orally Three times a day for 5 days 03/20/2019 Active Potassium Chloride ER 20 MEQ 1 capsule w ith food Orally Twice a day Active Isosorbide Mononitrate ER 30 MG 1/2 tablet in the morning Orally Once a day for 30 day(s) Active Albuterol Sulfate (2.5 MG/3ML) 0.083% 3 ml as needed Inhalation 3-4 times a day Active ProAir HFA 108 (90 Base) MCG/ACT 1 puff as needed Inhalation every 4 hrs Active Spiriva HandiHaler 18 MCG 1 capsule by i nhaling the contents of the capsule using the HandiHaler device Inhalation Once a day Active levETIRAcetam 250 MG TAKE 1 TABLET BY [facility] TWICE A DAY for 90 Active Atorvastatin Calcium 20 MG 1 tablet Oral ly Once a day Active Mucinex 600 MG TAKE 2 TABLET(S) BY MOUTH EVERY 12 HOURS for 30 Active Social History Tobacco Use: Social History Observation Description Date Details (start date - stop date) Former Smoker NA - NA Household Question Answer Notes Marital status: Number of adults in household: 1 Number of children in household: 0 xTobacco Use/Smoking Question Answer Notes Are you a former smoker How long has it been since you last smoked? 3-6 months Alcohol Screen (Audit-C) Question Answer Notes Did you have a drink containing alcohol in the p ast year? No Points 0 Interpretation Negative Problems Problem Type SNOMED Code ICD Code Onset Dates Problem Status W/U Status Risk Notes Problem Acute exacerbation of chronic obstructive airways disease (961022093) Acute exacerbation of chronic obstructive pulmonary disease (COPD) (491.21) Active confirmed [place]-985 911- Problem Acquired hypothyroidism (375615914) Acquired hypothyroidism, other specified cause (244.8) Active confirmed [place]-985 911- Problem Emphysema (22369296) Emphysema, other (492.8) Active confirmed [place]-985 911- Problem Lymphedema (874294577) Lymphedema (457.1) Active confirmed [place]-985 911- Problem Essential hypertension (70134116) Essential hypertension (401.1) Active confirmed [place]-985 911- Problem Edema (801188511) Peripheral extremity edema (782.3) Active confirmed [place]-985 911- Problem Obesity (130280693) Obesity, unspecified (278.00) Problem resolved confirmed [place]-985 911- Problem Abnormal weight gain (024486696) Abnormal weight gain (783.1) Problem resolved confirmed [place]-985 911- Problem Heart sounds abnormal (555417891) Other abnormal heart sounds (785.3) Problem resolved confirmed [place]-985 911- Problem Wheezing (38215411) Wheezing (786.07) Problem resolved confirmed [place]-985 911- Problem Nausea and vomiting (28728527) Nausea with vomiting (787.01) Problem resolved confirmed [place]-985 911- Problem Contusion of knee (70025778) Contusion of knee (924.11) Problem resolved confirmed [place]-985 911- Problem General weakness (37466288) Generalized weakness (780.79) Problem resolved confirmed [place]-985 911- Problem Rash (961362535) Rash (782.1) Problem resolved confirmed [place]-985 911- Problem Low back pain (044235189) Low back pain (724.2) Problem resolved confirmed [place]-985 911- Problem Thoracic back pain (456348536) Upper back pain (724.1) Problem resolved confirmed [place]-985 911- Problem Hypotension (82257553) Hypotension, other (458.8) Problem resolved confirmed [place]-985 911- Problem Screening for malignant neoplasm of colon (815407780) Screening for cancer of colon (V76.51) Problem resolved confirmed [place]-985 911- Problem Backache (548223343) Mid back pain (724.5) Problem resolved confirmed [place]-985 911- Problem Allergic rhinitis caused by pollen (81052975) Allergies (477.0) Problem resolved confirmed [place]-985 911- Problem Sore throat (012585844) Sore Throat (462) Problem resolved confirmed [place]-985 911- Problem Tobacco abuse (47763817) Tobacco abuse (305.1) Problem resolved confirmed [place]-985 911- Problem Chest pain (52858140) Chest pain (786.51) Problem resolved confirmed [place]-985 911- Problem Congestive heart failure (94567375) Congestive heart failure (428.0) Problem resolved confirmed [place]-985 911- Problem Radial styloid tenosynovitis (02750676) de Quervain's tenosynovitis (727.04) Problem resolved confirmed [place]-985 911- Problem Hyponatremia (66852287) Hyponatremia (276.1) Problem resolved confirmed [place]-985 911- Problem Exophthalmos (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) 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) Problem resolved confirmed [place]-985 911- Problem Sinus tachycardia (41426513) Sinus tachycardia (427.89) Problem resolved confirmed [place]-985 911- Problem Postmenopausal osteoporosis (373156307) Postmenopausal osteoporosis (733.01) Problem resolved confirmed [place]-985 911- Problem Supraventricular tachycardia (9309825) SVT (427.0) Problem resolved confirmed [place]-985 911- Problem Impacted cerumen (94508285) Cerumen impaction (380.4) Problem resolved confirmed [place]-985 911- Problem Coagulation/bleedin g tests abnormal (833459183) Prolonged bleeding time (790.92) Problem resolved confirmed [place]-985 911- Problem Cervical radiculopathy (72319955) Cervical radiculopathy (723.4) 019 Problem resolved confirmed [place]-985 911- Problem Abnormal gait (70189805) Gait instability (781.2) 019 Problem resolved confirmed [place]-985 911- Problem Acute gastritis (50919739) Gastritis, acute (535.00) 019 Problem resolved confirmed [place]-985 911- Problem Impacted cerumen (95579580) External cerumen impaction (380.4) 018 Problem resolved confirmed [place]-985 911- Problem Finger pain (35880579) Finger pain (729.5) 019 Problem resolved confirmed [place]-985 911- Problem Pedal edema (795305589) Pedal edema (782.3) 018 Problem resolved confirmed [place]-985 911- Problem Toxic diffuse goiter with no crisis (815236234) Toxic diffuse goiter, 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 crisis or storm (242.00) 019 Problem resolved confirmed [place]-985 911- Problem Gynecological examination normal (472402375211289) Wellness exam (V72.31) 019 Problem resolved confirmed [place]-985 911- Plan Of Treatment No Information Insurance Providers Payer Name Payer Address Payer Phone Subscriber Number Group Number Insured Name Patient Relationship to Insured Coverage Start Date Coverage End Date [place] [address] [address] [place] [address] [id number] Crystal Pierre Self - patient is the insured [place] Medicaid [address] [place] [address] [id number] blank Crystal Pierre Self - patient is the insured Medications Administered Medication Instructions Date of Administration Dosage Notes Albuterol/ipratropium 2.5/0.5 04/09/2019 Medical (General) History Medical History History ICD Code PREVENTIVE HEALTH MAINTENANCE Colonoscopy- 03/19/2019 which was normal Occult Stool: Has never been done Cologuard: Has never been done Endoscopy- 07/28/2016 which showed small hiatal hernia and GERD Nuclear stress test- Has never been done Exercise stress test- Has never been don e Echocardiogram- 01/11/2018 Carotid doppler- Has never been done CT chest- 05/14/2018 which mic wed mildly bulbous appearance to distal pancreatic tail; similar to 2012, mild atherosclerosis of aorta Chest xray: 03/07/2018 which showed no ac milind findings PFTS- 05/14/2018 Sleep Study: 2015 but results are unknow n Bone Density: 07/13/2018 Mammogram- 07/24/2017 which was normal; r efused any further 08/22/2018 Pap- 2010 which was normal; refused any further 08/22/2018 Influenza vaccine- 12/12/2018 Pneumococcal vaccine- 2013; given script 12/12/2017 Prenvar 13- Has never been done Shingles vaccine- Has never been done Shingrix- 11/05/2018 Tetanus vaccine- Unable to recall; given script 11/05/2018 Pertussis Vaccine: Given script 9 Hep C screenin11/28/2017 which was ne gative Eye Exam: 2016 Microalbumin (urine): Has never been don e GYNECOLOGICAL HISTORY Last menses- control- PAST MEDICAL HISTORY Hypertension Asthma COPD Chronic bronchitis Hypothyroidism Seizure disorder Cataract; bilateral Surgical History Surgery Date(Month/Year) Carpal tunnel; bilateral C- Section x 2 Thyroidectomy 2017 Hospitalization History Reason Date(Month/Year) Pneumonia COPD Childbirth
--- OUTSIDE RECORDS SUMMARY | 2024-08-16 16:28 | XMS_ITS | Clinical Summary ---
Author Organization [facility] Address [address] [place] [address] Phone Care Team Providers Care Meter Reader Chief Name Role Phone Татьяна Storm TAPE DECK INSTALLER Primary Care Provider [phone] Medications No known medications Active Problems No known active problems Social History Tobacco Use Types Packs/Day Years Used Date Smoking Tobacco: Never Assessed Comments Unknown Sex and Gender Information Value Date Recorded Sex Assigned at Not on file Legal Sex Female 10:15 AM CDT Gender Identity Not on file Sexual Orientation Not on file Last Filed Vital Signs Vital Sign Reading Time Taken Comments Blood Pressure 138/84 01/19/2021 2:26 PM FRUCTOSE LOADER Pulse 73 01/19/2021 2:26 PM FRUCTOSE LOADER Temperature - - Respiratory Rate - - Oxygen Saturation 96% 01/19/2021 2:26 PM FRUCTOSE LOADER Inhaled Oxygen Concentration - - Weight 130.6 kg (288 lb) 01/19/2021 2:26 PM FRUCTOSE LOADER Height 170.2 cm (5' 7 ) 01/19/2021 2:26 PM FRUCTOSE LOADER Body Mass Index 45.11 01/19/2021 2:26 PM FRUCTOSE LOADER Plan of Treatment Health Maintenance Due Date Last Done Comments DTAP/TDAP/TD VACCINES (1 - Tdap) 12/25/1983 HEPATITIS B VACCINES (1 of 3 - 19+ 3-dose series) 12/07 HPV/Cotest (21-29) 1985 CERVICAL CANCER SCREENING 1994 HPV/Cotest (30-65) 1994 PAP SMEAR 1994 BREAST CANCER SCREENING 2004 COLORECTAL SCREENING 2009 Colorectal Cancer Screening 2009 FIT-DNA Q 3 years 2009 FIT/FOBT Q 1 year 2009 Flex Sig/CT Colonography Q 5 years 2009 ZOSTER VACCINE (1 of 2) 2014 INFLUENZA VACCINE (#1) 2024 Insurance [facility] DUAL COMPLETE HMO DSNP [facility] [id number] MEDICAID [place] Care Teams Meter Reader Chief Relationship Specialty Start Date End Date Татьяна Storm FNP [address] [place] [id number] PCP - General Nurse Practitioner Family 02/03/21
--- OUTSIDE RECORDS SUMMARY | 2024-08-16 16:28 | XMS_ITS | Patient Health Record ---
Author Organization [facility] Address [address] [place], [place] [address] Care Team Providers Care Hydrotel Operator Name Role Phone Aden FOSTER, Jatinder Primary Care Provider Jensen Leiva MD, Franck Unavailable [phone] Allergies Allergen (clinical drug ingredient) Drug/Non Drug Allergy documented on EMR Reaction Allergy Type Onset Date Status None or not verifiab le (as is Current Medications) (uncoded) Unknown Allergy Active Reason For Referral No Information Plan Of Treatment No Information Insurance Providers Payer Name Payer Address Payer Phone Subscriber Number Group Number Insured Name Patient Relationship to Insured Coverage Start Date Coverage End Date [facility] [address] [address] [place] [address] [id number] Crystal Pierre Self - patient is the insured [place] [address] [place] [address] [id number] Crystal Pierre Self - patient is the insured Medical (General) History Medical History History ICD Code See scanned documentation
--- NOTE | 2024-08-16 17:29 | XRR_ITS ---
PROCEDURE INFORMATION: Exam: XR Chest Exam date and time: 08/16/2024 5:34 PM Age: 58 years old Clinical indication: Pain; Chest pressure; Additional info: Chest pain TECHNIQUE: Imaging protocol: Radiologic exam of the chest. Views: 1 view. COMPARISON: CR (CHEST, ) 07/09/2024 9:27 PM FINDINGS: Lungs: Shallow inspiration with mild crowding in the lung bases. The lungs are otherwise clear. No consolidation. Pleural spaces: Slight blunting of the left costophrenic angle. No pneumothorax. Heart/Mediastinum: Mild cardiomegaly. Bones/joints: Unremarkable. XR/XR chest 1V portable [id number] IMPRESSION: 1. No acute pulmonary findings. 2. Possible trace left pleural effusion.
[2024-08-16 17:31] VITALS: BP 125/89; PULSE 68; RESP 16; O2SAT 90
--- NOTE | 2024-08-16 17:31 | W.ED.CHESTPA ---
HPI - Chest Pain General: Chief Complaint: Chest Pain Stated Complaint: nausea - leg swelling Time Seen by Provider: 08/16/24 16:17 History of Present Illness: 58-year-old female with a history of depression, diastolic CHF, chronic edema, learning disability, aortic regurgitation, COPD, chronic hypoxemic respiratory failure on 2 to 3 L nasal cannula at all times, SVT, GERD, seizure disorder and hypothyroidism who presents to the emergency room by ambulance with shortness of breath, increased lower extremity swelling, leg pain and some chest pressure. She is also Adams having some nausea she says. She says she has been maintaining her fluid restriction and she did increase her Lasix but she is continued to have worsening swelling. No altered mental status. No focal motor deficits. No fevers. No abdominal pain. Related Data Home Medications ?Medication ?Instructions ?Recorded ?Confirmed aspirin 81 mg tablet,delayed 81 mg PO QAM 02/15/19 07/17/24 release (Adult Aspirin Regimen) levetiracetam 250 mg tablet 250 mg PO BID 02/15/19 07/17/24 duloxetine 60 mg capsule,delayed 60 mg PO QAM 04/05/21 07/17/24 release montelukast 10 mg tablet 10 mg PO DAILY 03/15/23 07/17/24 sucralfate 1 gram tablet 1 g PO TID 03/15/23 07/17/24 vibegron 75 mg tablet (Gemtesa) 75 mg PO DAILY 06/09/23 07/17/24 gabapentin 300 mg capsule 300 mg PO TID 08/07/23 07/17/24 albuterol sulfate 90 mcg/actuation 2 puff inhalation Q6H PRN 01/19/24 07/17/24 aerosol inhaler Shortness Of Breath Or Wheezing atorvastatin 20 mg tablet 20 mg PO QPM 05/23/24 07/17/24 diclofenac sodium 1 % topical gel 1 g topical QID 05/23/24 07/17/24 magnesium oxide 400 mg (241.3 mg 400 mg PO DAILY 05/23/24 07/17/24 magnesium) tablet Previous Rx's ?Medication ?Instructions ?Recorded bumetanide 2 mg tablet 2 mg PO DAILY #90 tabs 03/01/24 potassium chloride 20 mEq 20 meq PO DAILY #90 tabs 05/06/24 tablet,extended release(part/cryst) hydroxyzine HCl 10 mg tablet 10 mg PO TID PRN itching #5 tabs 05/25/24 prednisone 10 mg tablet See Taper PO DIRECTED #42 tabs 05/25/24 tiotropium bromide 2.5 2 inh inhalation QAM #4 grams 05/25/24 mcg/actuation mist for inhalation (Spiriva Respimat) metoprolol succinate 25 mg See Rx Instructions .Route 06/04/24 tablet,extended release 24 hr .COMPLEX #180 tabs levothyroxine 112 mcg tablet 112 mcg PO DAILY #30 tabs 06/26/24 (Synthroid) isosorbide mononitrate 30 mg See Rx Instructions .Route 08/05/24 tablet,extended release 24 hr .COMPLEX #90 tabs furosemide 40 mg tablet (Lasix) 40 mg PO QAM 5 days #5 tabs 08/16/24 Allergies Allergy/AdvReac Type Severity Reaction Status Date / Time chlorpromazine Allergy Unknown ALGY-Rash Verified 07/17/24 10:05 diphenhydramine Allergy Unknown Unknown Verified 07/17/24 10:05 Iodinated Contrast Media Allergy Unknown ALGY-Hives Verified 07/17/24 10:05 morphine Allergy ADR-Agitate Verified 07/17/24 10:05 d tramadol Allergy Unknown Verified 07/17/24 10:05 amoxicillin AdvReac Unknown ADR-Nausea Verified 07/17/24 10:05 codeine AdvReac Unknown ADR-Vomitin Verified 07/17/24 10:05 g Penicillins AdvReac Unknown ADR-Vomitin Verified 07/17/24 10:05 g Review of Systems Narrative: Constitutional symptoms: Negative except as documented in HPI. Skin symptoms: Negative except as documented in HPI. Eye symptoms: Negative except as documented in HPI. ENMT symptoms: Negative except as documented in HPI. Respiratory symptoms: Negative except as documented in HPI. Cardiovascular symptoms: Negative except as documented in HPI. Gastrointestinal symptoms: Negative except as documented in HPI. Genitourinary symptoms: Negative except as documented in HPI. Musculoskeletal symptoms: Negative except as documented in HPI. Neurologic symptoms: Negative except as documented in HPI. Psychiatric symptoms: Negative except as documented in HPI. Endocrine symptoms: Negative except as documented in HPI. 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 Other Adopted Social History Smoking and tobacco/nicotine status: current every day tobacco/nicotine user Quit status (tobacco/nicotine): has quit using Year quit tobacco: 2019 - 1-5 ciggs/day Alcohol intake: never Substance/Drug Use: never Lives independently: Yes Household members: none Housing: Apartment Current occupational status: disabled Do you think of yourself as: Straight/Heterosexual Current gender identity: Female Physical Exam Narrative: EXAM NARRATIVE: General: Alert, no acute distress. Skin: Warm, dry. Head: Normocephalic, atraumatic. Neck: Supple, trachea midline. Eye: Extraocular movements are intact. Ears, nose, mouth and throat: mucosa moist. Cardiovascular: Regular, Normal peripheral perfusion. 3+ pitting edema of the legs bilaterally Respiratory: Lungs are clear to auscultation, respirations are non-labored, breath sounds are equal, Symmetrical chest wall expansion. Gastrointestinal: Soft, Nontender, Non distended Musculoskeletal: Normal ROM, no deformity. Neurological: Alert and oriented, No focal neurological deficit observed. Psychiatric: Cooperative, appropriate mood & affect. Course Vital Signs: Vital signs: Vital Signs Temperature 98.0 F 08/16/24 16:20 Pulse Rate 78 08/16/24 20:07 Respiratory Rate 16 08/16/24 20:07 Blood Pressure 112/78 08/16/24 20:07 Pulse Oximetry 90 08/16/24 20:07 Oxygen Delivery Me thod Room Air 08/16/24 18:35 MDM - Chest Pain Medical Decision Making Differential diagnosis for patient with shortness of breath includes but is not limited to and based on the above HPI, review of systems and physical exam: Pneumonia. Bronchitis. Asthma or COPD with acute exacerbation. Acute coronary syndrome / [place]. Pulmonary embolism. Anxiety. Congestive heart failure. Viral infections including influenza and Covid-19. Atrial fibrillation. Anxiety. Pleural effusion. Pneumothorax. Orders placed to evaluate differential diagnosis based on the above differential, HPI and physical exam EKG: Time 1623. Rate 75. Normal sinus rhythm, No ST-T changes, no ectopy, normal [place] & QRS intervals, This was reviewed and interpreted by the ER physician at 1628 Lab Review: Laboratory results were reviewed and interpreted by myself the emergency room physician. No leukocytosis. No anemia. No renal failure. Serial troponins are negative. proBNP is just 95. Chest x-ray: No acute process. No infiltrate. No pneumothorax. This was reviewed and interpreted by myself the emergency room physician. I also reviewed the radiology report. I reviewed the patient's medical record. Reexamination: Patient remained stable. No increased work of breathing. No altered mental status. No focal motor deficits. Assessment and plan: Edema Noncardiac chest pain ? IV Lasix 40 mg. Will add 40 mg of Lasix a day for a few days to try to get her swelling down. - Discharged home - Discussed plan with patient. Answered any questions. - Evaluation and treatment of this problem were appropriate in the emergency setting. Lab Data 08/16/24 17:55 08/16/24 17:55 Radiology Impressions Chest X-Ray 08/16/24 17:29 IMPRESSION: 1. No acute pulmonary findings. 2. Possible trace left pleural effusion. Laboratory Results WBC 7.34 10^3/uL (3.29-11.43) 08/16/24 17:55 RBC 3.91 10^6/uL (3.85-5.65) 08/16/24 17:55 Hgb 11.30 g/dL (11.27-16.99) 08/16/24 17:55 Hct 36.9 % (36-47) 08/16/24 17:55 MCV 94.4 fl (85-98) 08/16/24 17:55 MCH 28.9 pg (27-33) 08/16/24 17:55 MCHC 30.6 g/dL (30-55) 08/16/24 17:55 RDW 13.5 % (12.1-15.1) 08/16/24 17:55 Plt Count 232 10^3/cmm (157-399) 08/16/24 17:55 MPV 10.1 fL (7.4-10.4) 08/16/24 17:55 Neut % (Auto) 49.4 % 08/16/24 17:55 Lymph % (Auto) 35.6 % 08/16/24 17:55 [place] % (Auto) 10.8 % 08/16/24 17:55 Eos % (Auto) 3.1 % 08/16/24 17:55 Baso % (Auto) 1.0 % 08/16/24 17:55 Neut # (Auto) 3.63 10^3/uL (1.8-7.7) 08/16/24 17:55 Lymph # (Auto) 2.6 10^3/uL (0.8-4.8) 08/16/24 17:55 [place] # (Auto) 0.8 10^3/uL (0.2-0.9) 08/16/24 17:55 Eos # (Auto) 0.2 10^3/uL (0.0-0.8) 08/16/24 17:55 Baso # (Auto) 0.1 10^3/uL (0.0-0.1) 08/16/24 17:55 Nucleated RBC % (auto) 0 % 08/16/24 17:55 Nucleated RBCs # 0.0 /100WBC 08/16/24 17:55 Sodium 143 mmol/L (136-145) 08/16/24 17:55 Potassium 4.1 mmol/L (3.5-5.1) 08/16/24 17:55 Chloride 98 mmol/L (98-107) 08/16/24 17:55 Carbon Dioxide 32 mmol/L (22-29) H 08/16/24 17:55 Anion Gap 17.1 (5-19) 08/16/24 17:55 BUN 15 mg/dL (6-20) 08/16/24 17:55 Creatinine 0.8 mg/dL (0.5-0.9) 08/16/24 17:55 GFR Calculation 73.4 mL/min (90-130) L 08/16/24 17:55 Glucose 78 mg/dL (65-115) 08/16/24 17:55 Calculated Osmolality 296 mOsm/kg (285-295) H 08/16/24 17:55 Calcium 9.0 mg/dL (8.5-10.5) 08/16/24 17:55 Total Bilirubin 0.8 mg/dL (0.15-1.2) 08/16/24 17:55 AST 19 U/L (0-32) 08/16/24 17:55 ALT 9 U/L (0-33) 08/16/24 17:55 Alkaline Phosphatase 80 U/L (35-105) 08/16/24 17:55 Troponin T Baseline 18 ng/L (0-10) H 08/16/24 17:55 Troponin T 120 Minute 15.05 ng/L (0-10) H 08/16/24 18:50 Delta Troponin T -2.95 ABS# (0-10) L 08/16/24 18:50 NT-Pro-B Natriuret Pep 95 pg/mL (0-125) 08/16/24 17:55 Total Protein 6.5 g/dL (6.6-8.7) L 08/16/24 17:55 Albumin 4.2 g/dL (3.5-5.2) 08/16/24 17:55 Globulin 2.3 g/dL (1.3-4.6) 08/16/24 17:55 All radiology interpretation(s) finalized by discharge Discharge Plan Discharge Patient Disposition: Home Clinical Impression: Edema, Non-cardiac chest pain Condition: Stable Prescriptions: New furosemide [Lasix] 40 mg tablet 40 mg PO QAM 5 Days Qty: 5 0RF No Action levetiracetam 250 mg tablet 250 mg PO BID aspirin [Adult Aspirin Regimen] 81 mg tablet,delayed release (DR/EC) 81 mg PO QAM levothyroxine [Synthroid] 112 mcg tablet 112 mcg PO DAILY Qty: 30 3RF bumetanide 2 mg tablet 2 mg PO DAILY Qty: 90 3RF potassium chloride 20 mEq tablet,ER particles/crystals 20 meq PO DAILY Qty: 90 3RF metoprolol succinate 25 mg tablet extended release 24 hr See Rx Instructions .ROUTE .COMPLEX Qty: 180 2RF Dose Instruction: TAKE 2 TABLETS BY MOUTH EVERY DAY Rx Instructions: TAKE 2 TABLETS BY MOUTH EVERY DAY isosorbide mononitrate 30 mg tablet extended release 24 hr See Rx Instructions .ROUTE .COMPLEX Qty: 90 3RF Dose Instruction: TAKE 1 TABLET BY MOUTH EVERY DAY Rx Instructions: TAKE 1 TABLET BY MOUTH EVERY DAY duloxetine 60 mg capsule,delayed release(DR/EC) 60 mg PO QAM gabapentin 300 mg capsule 300 mg PO TID albuterol sulfate 90 mcg/actuation HFA aerosol inhaler 2 puff INHALATION Q6H PRN (Reason: Shortness Of Breath Or Wheezing) atorvastatin 20 mg tablet 20 mg PO QPM magnesium oxide 400 mg (241.3 mg magnesium) tablet 400 mg PO DAILY diclofenac sodium 1 % gel 1 g TOPICAL QID prednisone 10 mg tablet See Taper PO DIRECTED Qty: 42 0RF Taper: predniSONE 60-10 60 mg Daily for 2 Days and 0 Hour 50 mg Daily for 2 Days and 0 Hour 40 mg Daily for 2 Days and 0 Hour 30 mg Daily for 2 Days and 0 Hour 20 mg Daily for 2 Days and 0 Hour 10 mg Daily for 2 Days and 0 Hour Rx Instructions: see taper instructions Spiriva Respimat 2.5 mcg/actuation mist 2 inh inhalation QAM Qty: 4 0RF hydroxyzine HCl 10 mg tablet 10 mg PO TID PRN (Reason: itching) Qty: 5 0RF sucralfate 1 gram tablet 1 g PO TID montelukast 10 mg tablet 10 mg PO DAILY Gemtesa 75 mg tablet 75 mg PO DAILY Discharge Orders: Discharge ED (Routine); Ordered 08/16/24 Ordered By: Teena Ordaz Referrals: Akila Rivera DO [Primary Care Provider, DOCTOR OF NATUROPATHIC MEDICINE] Discharge Diet: Usual diet Discharge Activity: Increase activity as tolerated Patient Instructions: Opioid Safety, Pain Management, Patient Portal & Kailyn Instructions Activity Restrictions/Additional Instructions: Add in 40 mg of Lasix with your bumetanide in daily for the next 5 days. If you start to feel lightheaded or weak discontinue the Lasix. Thank you for choosing [facility] for your healthcare needs today. You have been screened and evaluated and felt safe for discharge. Health conditions do change or evolve sometimes and as such it is important that you follow up with your Primary Doctor to be re checked, 3-5 days is a general good time frame for follow up. You are always welcome to return to the ED for re assessment if your symptoms are worsening or you have new concerns Print Language: Thai Coding Level of Care Code ED Invoicing Specialist for Dc Serrato
[2024-08-16 18:01] LABS: Hematocrit 36.9 % (36-47); Hemoglobin 11.30 g/dL (11.27-16.99); Mean Corpuscular HGB Conc 30.6 g/dL (30-55); Mean Corpuscular Hemoglobin 28.9 pg (27-33); Mean Corpuscular Volume 94.4 fl (85-98); Nucleated Red Blood Cells % 0 %; Platelet Count 232 10^3/cmm (157-399); Red Blood Count 3.91 10^6/uL (3.85-5.65); White Blood Count 7.34 10^3/uL (3.29-11.43)
[2024-08-16 18:30] LABS: Troponin(5th) Baseline 18 ng/L (0-10)
[2024-08-16 18:35] VITALS: BP 119/66; PULSE 66; RESP 16; O2SAT 91
[2024-08-16 18:37] LABS: Alanine Aminotransferase 9 U/L (0-33); Albumin Level 4.2 g/dL (3.5-5.2); Alkaline Phosphatase 80 U/L (35-105); Blood Urea Nitrogen 15 mg/dL (6-20); Calcium 9.0 mg/dL (8.5-10.5); Carbon Dioxide 32 mmol/L (22-29); Chloride 98 mmol/L (98-107); Creatinine Clr Calc Pharmacy 94.4933; Globulin 2.3 g/dL (1.3-4.6); Glucose 78 mg/dL (65-115); NT Pro B Type Natriuretic Pept 95 pg/mL (0-125); Osmolality Calculated 296 mOsm/kg (285-295); Sodium 143 mmol/L (136-145); Total Protein 6.5 g/dL (6.6-8.7)
[2024-08-16 18:45] LABS: Anion Gap 17.1 (5-19); Aspartate Amino Transferase 19 U/L (0-32); Potassium 4.1 mmol/L (3.5-5.1)
[2024-08-16 19:15] LABS: Troponin 5 2HR 15.05 ng/L (0-10)
[2024-08-16 19:18] LABS: Troponin 5 2HR Delta -2.95 ABS# (0-10)
--- NOTE | 2024-08-16 19:31 | ECG_ITS ---
[employer] Test Date: 2024-08-16 Pat Name: Crystal Pierre Department: Room: Gender: Female Press Assistant: : 1965 Requested By: Teena Garcia Order Number: [id number] Khanna MD: Funmilayo De La Rosa M.D. Measurements Intervals [place] Rate: 74 P: 142 GA: 138 QRS: 72 QRSD: 113 T: 111 QT: 399 QTc: 444 Interpretive Statements ECTOPIC ATRIAL RHYTHM POSSIBLE RIGHT VENTRICULAR CONDUCTION DELAY [RSR (QR) IN V1/V2] LATERAL MYOCARDIAL INFARCTION , OF INDETERMINATE AGE [40+ ms Q WAVE AND/OR ST/T ABNORMALITY IN I/aVL/V5/V6] Compared to ECG 08/16/2024 16:23:38 Ectopic atrial rhythm now present Myocardial infarct finding now present Sinus rhythm no longer present Sinus arrhythmia no longer present ST (T wave) deviation no longer present Electronically Signed On 08-21-2024 16:52:11 CDT by Funmilayo De La Rosa M.D. [email or web address]
[2024-08-16] MEDS: FUROsemide 10 mg/mL SDV 4mL 40 MG IVP (19:41)
[2024-08-16 20:07] VITALS: BP 112/78; PULSE 78; RESP 16; O2SAT 90
== END 2024-08-16 20:03 | disposition home or self-care (01) ==
PROVIDERS: Family Medicine; Emergency Provider Emergency Medicine; PCP Family Medicine
DX: R07.89 Other chest pain (principal); J44.9 Chronic obstructive pulmonary disease, unspecified; J96.11 Chronic respiratory failure with hypoxia; I11.0 Hypertensive heart disease with heart failure; I50.32 Chronic diastolic (congestive) heart failure; I25.2 Old myocardial infarction; F17.210 Nicotine dependence, cigarettes, uncomplicated; G40.909 Epilepsy, unspecified, not intractable, without status epilepticus; E03.9 Hypothyroidism, unspecified; Z79.82 Long term (current) use of aspirin; Z79.899 Other long term (current) drug therapy; Z88.5 Allergy status to narcotic agent; Z91.041 Radiographic dye allergy status
CPT/HCPCS: 36415; 71045; 80053; 83880; 84484; 85025; 93005; 96374; 99285; J1938

== ENCOUNTER 2024-08-19 12:33 | Outpatient (CLI) | payer MEDICARE, MEDICAID, SELFPAY ==
[2024-07-22 10:43] VITALS: BP 123/72; BMI 39.3
[2024-08-19 14:23] LABS: Free T4 Free Thyroxine 1.11 ng/dL (0.82-1.77); Thyroid Stimulating Hormone 8.12 uIU/mL (0.27-4.20)
== END 2024-08-19 12:34 | disposition home or self-care (01) ==
LOC: LAB 12:36
PROVIDERS: Internal Medicine; PCP Family Medicine; Visit Provider Nurse Practitioner Family
DX: T14.8XXA Other injury of unspecified body region, initial encounter (principal); E03.9 Hypothyroidism, unspecified
CPT/HCPCS: 36415; 84439; 84443

== ENCOUNTER → 2024-08-23 10:48 | Outpatient (BNVA) | payer MEDICARE, MEDICAID, SELFPAY ==
[2024-07-22 10:43] VITALS: BP 123/72; BMI 39.3
== END ==
PROVIDERS: PCP Family Medicine; Visit Provider Internal Medicine
DX: E03.9 Hypothyroidism, unspecified (principal); E07.9 Disorder of thyroid, unspecified
CPT/HCPCS: 99214

== ENCOUNTER 2024-09-13 10:42 | Outpatient (CLI) | payer OTHER, MEDICARE, MEDICAID, SELFPAY ==
[2024-07-22 10:43] VITALS: BP 123/72; BMI 39.3
[2024-09-13 12:25] LABS: Free T4 Free Thyroxine 1.09 ng/dL (0.82-1.77); Thyroid Stimulating Hormone 10.33 uIU/mL (0.27-4.20)
== END 2024-09-13 10:43 | disposition home or self-care (01) ==
PROVIDERS: PCP Family Medicine; Visit Provider Internal Medicine
DX: J96.02 Acute respiratory failure with hypercapnia (principal); J96.01 Acute respiratory failure with hypoxia
CPT/HCPCS: 36415; 84439; 84443

== ENCOUNTER → 2024-09-18 09:27 | Outpatient (BNVA) | payer MEDICARE, SELFPAY ==
[2024-07-22 10:43] VITALS: BP 123/72; BMI 39.3
== END ==
PROVIDERS: PCP Family Medicine; Visit Provider Internal Medicine
DX: E03.9 Hypothyroidism, unspecified (principal)
CPT/HCPCS: 99214

== ENCOUNTER → 2024-09-20 11:11 | Outpatient (BNVA) | payer MEDICARE, MEDICAID, SELFPAY ==
[2024-07-22 10:43] VITALS: BP 123/72; BMI 39.3
== END ==
PROVIDERS: PCP Family Medicine; Visit Provider Nurse Practitioner Family
DX: I11.0 Hypertensive heart disease with heart failure (principal); I50.30 Unspecified diastolic (congestive) heart failure; I87.2 Venous insufficiency (chronic) (peripheral); I35.0 Nonrheumatic aortic (valve) stenosis; I47.10 Supraventricular tachycardia, unspecified; Z79.82 Long term (current) use of aspirin; F17.210 Nicotine dependence, cigarettes, uncomplicated; I25.2 Old myocardial infarction; R06.00 Dyspnea, unspecified; I50.32 Chronic diastolic (congestive) heart failure; I10 Essential (primary) hypertension; M79.89 Other specified soft tissue disorders
CPT/HCPCS: 36415; 80048; 83880; 85025; 99214

== ENCOUNTER 2024-10-01 09:00 | Outpatient (CLI) | payer MEDICAID, MEDICARE, SELFPAY ==
[2024-07-22 10:43] VITALS: BP 123/72; BMI 39.3
--- NOTE | 2024-10-01 09:30 | USR_ITS ---
PROCEDURE INFORMATION: Exam: US Duplex Lower Extremity Veins, Bilateral Exam date and time: 10/01/2024 9:19 AM Age: 58 years old Clinical indication: Swelling (edema) of limb; Lower extremity, bilateral; Additional info: Please evaluate for venous insufficiency TECHNIQUE: Imaging protocol: Real-time duplex ultrasound of the bilateral extremities with 2-D desai scale, color Doppler flow and spectral waveform analysis including responses to compression and other maneuvers (when performed) with image documentation. Complete exam focused on the lower extremity veins. COMPARISON: CR (LOW EXM, ) 07/09/2024 9:44 PM FINDINGS: Right deep veins: Unremarkable. The common femoral, femoral, proximal profunda femoral and popliteal veins are patent without thrombus. Normal Doppler waveforms. Normal compressibility and/or augmentation response. Reflux in the right common femoral vein was noted for 1.1 seconds. Left deep veins: Unremarkable. The common femoral, femoral, proximal profunda femoral and popliteal veins are patent without thrombus. Normal Doppler waveforms. Normal compressibility and/or augmentation response. Superficial veins: Greater saphenous veins at the saphenofemoral junctions are patent bilaterally without thrombus. Soft tissues: Unremarkable. US/CV jeferson dup insukatina [facility] [id number] IMPRESSION: 1. No evidence of deep vein thrombosis. 2. Slight reflux in the right common femoral vein which may represent venous insufficiency.
== END 2024-10-01 09:01 | disposition home or self-care (01) ==
LOC: RAD 09:01
PROVIDERS: PCP Family Medicine; Visit Provider Nurse Practitioner Family
DX: M79.89 Other specified soft tissue disorders (principal)
CPT/HCPCS: 93970

== ENCOUNTER 2024-10-15 11:16 | Outpatient (CLI) | payer MEDICARE, MEDICAID, SELFPAY ==
[2024-07-22 10:43] VITALS: BP 123/72; BMI 39.3
[2024-10-15 12:32] LABS: Free T4 Free Thyroxine 1.16 ng/dL (0.82-1.77); Thyroid Stimulating Hormone 13.26 uIU/mL (0.27-4.20)
== END 2024-10-15 11:17 | disposition home or self-care (01) ==
PROVIDERS: PCP Family Medicine; Visit Provider Internal Medicine
DX: J96.02 Acute respiratory failure with hypercapnia (principal); J96.01 Acute respiratory failure with hypoxia; E03.9 Hypothyroidism, unspecified
CPT/HCPCS: 36415; 84439; 84443

== ENCOUNTER 2024-11-15 16:32 | Emergency (ER) | payer MEDICARE, MEDICAID, SELFPAY ==
[2024-07-22 10:43] VITALS: BP 123/72; BMI 39.3
[2024-11-15] VITALS (8 sets, daily range): BP systolic 106–146; BP diastolic 30–87; PULSE 66–102; RESP 14–22; TEMP 36.7; O2SAT 66–100
--- NOTE | 2024-11-15 16:41 | ECG_ITS ---
[employer] Test Date: 2024-11-15 Pat Name: Crystal Pierre Department: Room: Gender: Female Sales Applications Engineer: : 1965 Requested By: Odilon Johnson Order Number: [id number] Reading MD: MARISA OLSEN Measurements Intervals [place] Rate: 65 P: 55 [place]: 133 QRS: 52 QRSD: 109 T: 57 QT: 395 QTc: 413 Interpretive Statements SINUS RHYTHM INCOMPLETE RIGHT BUNDLE BRANCH BLOCK [90+ ms QRS DURATION, TERMINAL R IN V1/V2, 40+ ms S IN I/aVL/V4/V5/V6] Compared to ECG 08/16/2024 19:31:06 Incomplete right bundle-branch block now present Ectopic atrial rhythm no longer present Myocardial infarct finding no longer present Electronically Signed On 11-17-2024 23:18:53 CDT by MARISA OLSEN [id number] [id number]
--- NOTE | 2024-11-15 18:38 | XRR_ITS ---
PROCEDURE INFORMATION: Exam: XR Chest Exam date and time: 11/15/2024 6:49 PM Age: 58 years old Clinical indication: Pain; Chest pressure; Prior surgery; Surgery date: 6+ months; Surgery type: Thyroid; Additional info: Chest pain TECHNIQUE: Imaging protocol: Radiologic exam of the chest. Views: 1 view. COMPARISON: CR (CHEST, ) 08/16/2024 5:34 PM FINDINGS: Lungs: Unremarkable. No consolidation. Pleural spaces: Unremarkable. No pleural effusion. No pneumothorax. Heart/Mediastinum: Unremarkable. No cardiomegaly. Bones/joints: Unremarkable. XR/XR chest 1V portable [id number] IMPRESSION: No acute findings.
[2024-11-15 19:11] LABS: Hematocrit 40.7 % (36-47); Hemoglobin 12.60 g/dL (11.27-16.99); Mean Corpuscular HGB Conc 31.0 g/dL (30-55); Mean Corpuscular Hemoglobin 28.7 pg (27-33); Mean Corpuscular Volume 92.7 fl (85-98); Nucleated Red Blood Cells % 0 %; Platelet Count 305 10^3/cmm (157-399); Red Blood Count 4.39 10^6/uL (3.85-5.65); White Blood Count 8.07 10^3/uL (3.29-11.43)
[2024-11-15 19:18] LABS: Alanine Aminotransferase 10 U/L (0-33); Albumin Level 4.2 g/dL (3.5-5.2); Alkaline Phosphatase 94 U/L (35-105); Blood Urea Nitrogen 14 mg/dL (6-20); Calcium 9.2 mg/dL (8.5-10.5); Carbon Dioxide 36 mmol/L (22-29); Chloride 96 mmol/L (98-107); Globulin 3.1 g/dL (1.3-4.6); Glucose 98 mg/dL (65-115); Osmolality Calculated 294 mOsm/kg (285-295); Sodium 142 mmol/L (136-145); Total Protein 7.3 g/dL (6.6-8.7)
[2024-11-15 19:19] LABS: Troponin(5th) Baseline 15 ng/L (0-10)
[2024-11-15 19:21] LABS: Anion Gap 14.1 (5-19); Aspartate Amino Transferase 21 U/L (0-32); Potassium 4.1 mmol/L (3.5-5.1)
[2024-11-15 19:24] LABS: Add Urine Microscopic? NO
[2024-11-15 19:29] LABS: Glucose Urine UA Negative (Normal); Nitrate Urine Negative (Negative); Specific Gravity, Urine 1.012 (1.005-1.030)
--- NOTE | 2024-11-15 19:33 | XRR_ITS ---
PROCEDURE INFORMATION: Exam: XR Left Hip Exam date and time: 11/15/2024 7:49 PM Age: 58 years old Clinical indication: Hip pain; Left hip; Additional info: Left hip pain TECHNIQUE: Imaging protocol: Radiologic exam of the left hip. Views: 2 or 3 views hip with pelvis when performed. COMPARISON: CT abdomen pelvis wo con [id number] 11/11/2023 10:05 PM FINDINGS: Bones/joints: No acute fracture or subluxation. Soft tissues: Unremarkable. XR/XR hip LT 2-3V wo/w pel* [id number] IMPRESSION: 1. No acute fracture or subluxation. 2. Body habitus obscures detail.
[2024-11-15 19:39] LABS: Charge for UA Resulting for Rev
[2024-11-15 19:54] LABS: Troponin 5 2HR 14.91 ng/L (0-10)
[2024-11-15 20:05] LABS: Troponin 5 2HR Delta -0.09 ABS# (0-10)
[2024-11-15 20:26] LABS: NT Pro B Type Natriuretic Pept 195 pg/mL (0-125)
[2024-11-15 20:33] LABS: Respiratory Syncytial Virus Ce NEGATIVE (Negative); SARS-CoV-2 PCR NEGATIVE (Negative)
--- NOTE | 2024-11-15 20:50 | W.ED.CHESTPA ---
HPI - Chest Pain General: Chief Complaint: Chest Pain Stated Complaint: cp - sore throat Time Seen by Provider: 11/15/24 18:59 History of Present Illness: Patient is a 58-year-old female well-known to the emergency department service presenting with acute onset of wheezing and cough that started today. She reports productive cough with green sputum and chest pain that is constant rather than just with coughing. Patient has a slight fever. She has been using her prescribed breathing treatments which provide minimal relief of her wheezing. She is currently on home oxygen at 3L. Patient also complains of dizziness, which may or may not be exacerbated by coughing episodes. Additionally, she reports left hip pain from a fall that occurred approximately two months ago. She states she is limping due to the pain and has difficulty bending the leg. The pain is localized to the groin area when the hip is manipulated. During the fall, she reports that her left leg went under her while her right leg was straight out. Related Data Home Medications ?Medication ?Instructions ?Recorded ?Confirmed aspirin 81 mg tablet,delayed 81 mg PO QAM 02/15/19 09/20/24 release (Adult Aspirin Regimen) levetiracetam 250 mg tablet 250 mg PO BID 02/15/19 09/20/24 duloxetine 60 mg capsule,delayed 60 mg PO QAM 04/05/21 09/20/24 release montelukast 10 mg tablet 10 mg PO DAILY 03/15/23 09/20/24 sucralfate 1 gram tablet 1 g PO TID 03/15/23 09/20/24 vibegron 75 mg tablet (Gemtesa) 75 mg PO DAILY 06/09/23 09/20/24 gabapentin 300 mg capsule 300 mg PO TID 08/07/23 09/20/24 albuterol sulfate 90 mcg/actuation 2 puff inhalation Q6H PRN 01/19/24 09/20/24 aerosol inhaler Shortness Of Breath Or Wheezing atorvastatin 20 mg tablet 20 mg PO QPM 05/23/24 09/20/24 magnesium oxide 400 mg (241.3 mg 400 mg PO DAILY 05/23/24 09/20/24 magnesium) tablet Previous Rx's ?Medication ?Instructions ?Recorded bumetanide 2 mg tablet 2 mg PO DAILY #90 tabs 03/01/24 potassium chloride 20 mEq 20 meq PO DAILY #90 tabs 05/06/24 tablet,extended release(part/cryst) hydroxyzine HCl 10 mg tablet 10 mg PO TID PRN itching #5 tabs 05/25/24 prednisone 10 mg tablet See Taper PO DIRECTED #42 tabs 05/25/24 tiotropium bromide 2.5 2 inh inhalation QAM #4 grams 05/25/24 mcg/actuation mist for inhalation (Spiriva Respimat) metoprolol succinate 25 mg See Rx Instructions .Route 06/04/24 tablet,extended release 24 hr .COMPLEX #180 tabs isosorbide mononitrate 30 mg See Rx Instructions .Route 08/05/24 tablet,extended release 24 hr .COMPLEX #90 tabs Synthroid 150 mcg tablet 150 mcg PO DAILY #30 tabs 10/21/24 (levothyroxine) doxycycline hyclate 100 mg tablet 100 mg PO BID 7 days #14 tabs 11/15/24 methylprednisolone 4 mg tablets in See Rx Instructions PO .COMPLEX 11/15/24 a dose pack (Medrol (Pako)) #21 ea Allergies Allergy/AdvReac Type Severity Reaction Status Date / Time chlorpromazine Allergy Unknown ALGY-Rash Verified 09/20/24 11:47 diphenhydramine Allergy Unknown Unknown Verified 09/20/24 11:47 Iodinated Contrast Media Allergy Unknown ALGY-Hives Verified 09/20/24 11:47 morphine Allergy ADR-Agitate Verified 09/20/24 11:47 d tramadol Allergy Unknown Verified 09/20/24 11:47 amoxicillin AdvReac Unknown ADR-Nausea Verified 09/20/24 11:47 codeine AdvReac Unknown ADR-Vomitin Verified 09/20/24 11:47 g Penicillins AdvReac Unknown ADR-Vomitin Verified 09/20/24 11:47 g PFSH ED PFSH: Medical History Chronic hypoxemic respiratory failure Hypercapnic respiratory failure Hx of myocardial infarction Major depressive disorder, single episode, severe without psychotic features Sleep apnea Psychiatric care Diastolic heart failure Chest pain Lower extremity edema Atypical chest pain Cervical radiculopathy Pain of hand Diastolic CHF 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 Other Adopted Social History Smoking and tobacco/nicotine status: current every day tobacco/nicotine user (2-6 cigarettes a day) Quit status (tobacco/nicotine): has quit using Year quit tobacco: 2018 1-5 ciggs/day Alcohol intake: never Substance/Drug Use: never Lives independently: Yes Household members: none Housing: Apartment Current occupational status: disabled Do you think of yourself as: Straight/Heterosexual Current gender identity: Female Physical Exam Const: COMMON NORMALS: no acute distress GENERAL APPEARANCE: cooperative; not ill appearing and not frail appearing HENMT: COMMON NORMALS: normocephalic, atraumatic and Normal external nose present HEAD & SCALP: normocephalic and atraumatic FACE & SINUS: normal facial exam and face symmetric NOSE: Normal external nose present Eye: COMMON NORMALS: Equal, round and reactive pupils present and EOMs intact bilaterally PUPIL: Yes Equal, round and reactive pupils present Neck/C-Spine: GENERAL: Yes trachea midline Chest: CHEST: Yes Symmetrical chest wall rise Resp: EFFORT & INSPECTION: Yes able to speak in complete sentences AUSCULTATION: rhonchi and wheezes Cardio: COMMON NORMALS: regular rate and regular rhythm RATE: regular rate RHYTHM: regular rhythm GI: COMMON NORMALS: Normal to inspection, nondistended, normoactive bowel sounds present Extremity: COMMON NORMALS: no pedal edema Neuro: CELIO COMA SCALE: document GCS findings [place] coma scale eye opening: Spontaneous [place] coma scale verbal response: Orientated [place] coma scale motor response: Obey commands Celio coma scale total score: 15 SENSORY EXAM: Yes extremities (intact) Psych: COMMON NORMALS: speech normal SPEECH: Yes normal speech Skin: COMMON NORMALS: no rashes or lesions noted GENERAL SKIN EXAM: no rashes or lesions noted Course Vital Signs: Vital signs: Vital Signs Temperature 98.0 F 11/15/24 16:46 Pulse Rate 66 11/15/24 21:41 Respiratory Rate 18 11/15/24 20:30 Blood Pressure 106/68 11/15/24 21:41 Pulse Oximetry 95 11/15/24 21:41 Oxygen Delivery Me thod Room Air 11/15/24 20:00 Oxygen Flow Rate 3 11/15/24 20:00 MDM - Chest Pain Medical Decision Making Left hip x-ray is negative. Chest x-ray is nonacute. No infiltrate/ pneumonia. CBC is normal. BMP not remarkable. EKG timed 1641 shows a sinus rhythm with an incomplete right bundle branch block. [place] 133, QRS 109. Normal axis. No ST-T wave change. Baseline troponin is 15. Delta is -0.1. BNP is 195. Wheezing improved after DuoNeb. She will be given steroids. Schedule breathing treatments. Antibiotic. Return for worsening symptoms. She is stable for discharge currently. Lab Data 11/15/24 16:16 11/15/24 16:16 Radiology Impressions Chest X-Ray 11/15/24 18:38 IMPRESSION: No acute findings. Hip/Pelvis X-Ray 11/15/24 19:33 IMPRESSION: 1. No acute fracture or subluxation. 2. Body habitus obscures detail. Laboratory Results WBC 8.07 10^3/uL (3.29-11.43) 11/15/24 16:16 RBC 4.39 10^6/uL (3.85-5.65) 11/15/24 16:16 Hgb 12.60 g/dL (11.27-16.99) 11/15/24 16:16 Hct 40.7 % (36-47) 11/15/24 16:16 MCV 92.7 fl (85-98) 11/15/24 16:16 MCH 28.7 pg (27-33) 11/15/24 16:16 MCHC 31.0 g/dL (30-55) 11/15/24 16:16 RDW 13.5 % (12.1-15.1) 11/15/24 16:16 Plt Count 305 10^3/cmm (157-399) 11/15/24 16:16 MPV 11.5 fL (7.4-10.4) H 11/15/24 16:16 Neut % (Auto) 51.7 % 11/15/24 16:16 Lymph % (Auto) 35.9 % 11/15/24 16:16 [place] % (Auto) 8.2 % 11/15/24 16:16 Eos % (Auto) 3.5 % 11/15/24 16:16 Baso % (Auto) 0.6 % 11/15/24 16:16 Neut # (Auto) 4.17 10^3/uL (1.8-7.7) 11/15/24 16:16 Lymph # (Auto) 2.9 10^3/uL (0.8-4.8) 11/15/24 16:16 [place] # (Auto) 0.7 10^3/uL (0.2-0.9) 11/15/24 16:16 Eos # (Auto) 0.3 10^3/uL (0.0-0.8) 11/15/24 16:16 Baso # (Auto) 0.1 10^3/uL (0.0-0.1) 11/15/24 16:16 Nucleated RBC % (auto) 0 % 11/15/24 16:16 Nucleated RBCs # 0.0 /100WBC 11/15/24 16:16 Sodium 142 mmol/L (136-145) 11/15/24 16:16 Potassium 4.1 mmol/L (3.5-5.1) 11/15/24 16:16 Chloride 96 mmol/L (98-107) L 11/15/24 16:16 Carbon Dioxide 36 mmol/L (22-29) H 11/15/24 16:16 Anion Gap 14.1 (5-19) 11/15/24 16:16 BUN 14 mg/dL (6-20) 11/15/24 16:16 Creatinine 0.9 mg/dL (0.5-0.9) 11/15/24 16:16 GFR Calculation 64.1 mL/min (90-130) L 11/15/24 16:16 Glucose 98 mg/dL (65-115) 11/15/24 16:16 Calculated Osmolality 294 mOsm/kg (285-295) 11/15/24 16:16 Calcium 9.2 mg/dL (8.5-10.5) 11/15/24 16:16 Total Bilirubin 1.0 mg/dL (0.15-1.2) 11/15/24 16:16 AST 21 U/L (0-32) 11/15/24 16:16 ALT 10 U/L (0-33) 11/15/24 16:16 Alkaline Phosphatase 94 U/L (35-105) 11/15/24 16:16 Troponin T Baseline 15 ng/L (0-10) H 11/15/24 16:16 Troponin T 120 Minute 14.91 ng/L (0-10) H 11/15/24 19:19 Delta Troponin T -0.09 ABS# (0-10) L 11/15/24 19:19 NT-Pro-B Natriuret Pep 195 pg/mL (0-125) H 11/15/24 19:19 Total Protein 7.3 g/dL (6.6-8.7) 11/15/24 16:16 Albumin 4.2 g/dL (3.5-5.2) 11/15/24 16:16 Globulin 3.1 g/dL (1.3-4.6) 11/15/24 16:16 Urine Color Yellow (Yellow) 11/15/24 18:56 Urine Appearance Clear (CLEAR) 11/15/24 18:56 Urine pH 6.5 (5-7) 11/15/24 18:56 Ur Specific [place] 1.012 (1.005-1.030) 11/15/24 18:56 Urine Protein Negative (Negative) 11/15/24 18:56 Urine Glucose (UA) Negative (Normal) 11/15/24 18:56 Urine Ketones Negative (Negative) 11/15/24 18:56 Urine Blood Negative (Negative) 11/15/24 18:56 Urine Nitrate Negative (Negative) 11/15/24 18:56 Urine Bilirubin Negative (Negative) 11/15/24 18:56 Urine Urobilinogen 0.2 mg/dL (Negative) 11/15/24 18:56 Ur Leukocyte Esterase Negative (Negative) 11/15/24 18:56 Amorphous Sediment Not Reportable 11/15/24 18:56 Influenza A (PCR) Negative (Negative) 11/15/24 19:37 Influenza Type B (PCR) Negative (Negative) 11/15/24 19:37 RSV (PCR) Negative (Negative) 11/15/24 19:37 SARS-CoV-2 (PCR) Negative (Negative) 11/15/24 19:37 All radiology interpretation(s) finalized by discharge Discharge Plan Discharge Patient Disposition: Home Clinical Impression: COPD (chronic obstructive pulmonary disease), Acute exacerbation of chronic obstructive airways disease Condition: Stable Prescriptions: New methylprednisolone [Medrol (Pako)] 4 mg tablets,dose pack See Rx Instructions .ROUTE .COMPLEX Qty: 21 0RF Rx Instructions: orally per package directions doxycycline hyclate 100 mg tablet 100 mg PO BID 7 Days Qty: 14 0RF No Action levetiracetam 250 mg tablet 250 mg PO BID aspirin [Adult Aspirin Regimen] 81 mg tablet,delayed release (DR/EC) 81 mg PO QAM bumetanide 2 mg tablet 2 mg PO DAILY Qty: 90 3RF potassium chloride 20 mEq tablet,ER particles/crystals 20 meq PO DAILY Qty: 90 3RF metoprolol succinate 25 mg tablet extended release 24 hr See Rx Instructions .ROUTE .COMPLEX Qty: 180 2RF Dose Instruction: TAKE 2 TABLETS BY MOUTH EVERY DAY Rx Instructions: TAKE 2 TABLETS BY MOUTH EVERY DAY isosorbide mononitrate 30 mg tablet extended release 24 hr See Rx Instructions .ROUTE .COMPLEX Qty: 90 3RF Dose Instruction: TAKE 1 TABLET BY MOUTH EVERY DAY Rx Instructions: TAKE 1 TABLET BY MOUTH EVERY DAY levothyroxine [Synthroid] 150 mcg tablet 150 mcg PO DAILY Qty: 30 3RF duloxetine 60 mg capsule,delayed release(DR/EC) 60 mg PO QAM gabapentin 300 mg capsule 300 mg PO TID albuterol sulfate 90 mcg/actuation HFA aerosol inhaler 2 puff INHALATION Q6H PRN (Reason: Shortness Of Breath Or Wheezing) atorvastatin 20 mg tablet 20 mg PO QPM magnesium oxide 400 mg (241.3 mg magnesium) tablet 400 mg PO DAILY prednisone 10 mg tablet See Taper PO DIRECTED Qty: 42 0RF Taper: predniSONE 60-10 60 mg Daily for 2 Days and 0 Hour 50 mg Daily for 2 Days and 0 Hour 40 mg Daily for 2 Days and 0 Hour 30 mg Daily for 2 Days and 0 Hour 20 mg Daily for 2 Days and 0 Hour 10 mg Daily for 2 Days and 0 Hour Rx Instructions: see taper instructions Spiriva Respimat 2.5 mcg/actuation mist 2 inh inhalation QAM Qty: 4 0RF hydroxyzine HCl 10 mg tablet 10 mg PO TID PRN (Reason: itching) Qty: 5 0RF sucralfate 1 gram tablet 1 g PO TID montelukast 10 mg tablet 10 mg PO DAILY Gemtesa 75 mg tablet 75 mg PO DAILY Discharge Orders: Discharge ED (Routine); Ordered 11/15/24 Ordered By: Odilon Gama Referrals: Akila Rivera DO [Primary Care Provider, [employer]] - 1-3 days Patient Instructions: COPD (Chronic Obstructive Pulmonary Disease) (ED), Opioid Safety, Pain Management, Patient Portal & [place] Instructions Activity Restrictions/Additional Instructions: Use your albuterol every 4 hours while awake for the first 48 hours for the feel that you needed or not, then as needed. Other medications as directed. Return for worsening shortness of breath, fever despite antibiotics, worsening pain, other concerning symptoms. Call your doctor Monday for follow-up appointment. Print Language: Norwegian Coding Level of Care Code ED Lacquer Machine Feeder for Chg Fwd Heart Score HEART Score Components History: Slightly Suspicous EKG: Normal Age: 45-64 yrs Risk Factors: 1 or 2 Risk Factors Troponin: Baseline Trop <16 ng/L HEART Score RESULT HEART Score: 2
[2024-11-15] MEDS: fentaNYL 50 mcg/mL INJ 2mL IVP (21:11)
[2024-11-15] MEDS: methylPREDNISolone sod succ 125 mg/2 mL INJ IVP (21:11)
[2024-11-15] MEDS: ondansetron 2 mg/ML SDV 2 mL 4 MG IVP (21:11)
== END 2024-11-15 21:42 | disposition home or self-care (01) ==
PROVIDERS: Emergency Provider Emergency Medicine; PCP Family Medicine
DX: J44.1 Chronic obstructive pulmonary disease with (acute) exacerbation (principal); I10 Essential (primary) hypertension; K21.9 Gastro-esophageal reflux disease without esophagitis; I50.30 Unspecified diastolic (congestive) heart failure; F17.210 Nicotine dependence, cigarettes, uncomplicated; Z79.82 Long term (current) use of aspirin
CPT/HCPCS: 36415; 71045; 73502; 80053; 81003; 83880; 84484; 85025; 87637; 93005; 94640; 96374; 96375; 99285; J2405; J2919; J3010; J9999

== ENCOUNTER → 2024-11-20 09:01 | Outpatient (BNVA) | payer MEDICARE, MEDICAID, SELFPAY ==
[2024-07-22 10:43] VITALS: BP 123/72; BMI 39.3
== END ==
PROVIDERS: PCP Family Medicine; Visit Provider Internal Medicine
DX: E03.9 Hypothyroidism, unspecified (principal); R23.8 Other skin changes
CPT/HCPCS: 99214

== ENCOUNTER 2024-11-24 19:24 | Emergency (ER) | payer MEDICARE, MEDICAID, SELFPAY ==
[2024-07-22 10:43] VITALS: BP 123/72; BMI 39.3
--- NOTE | 2024-11-24 19:13 | XRR_ITS ---
PROCEDURE INFORMATION: Exam: XR Chest Exam date and time: 11/24/2024 7:34 PM Age: 58 years old Clinical indication: Pain; Chest pressure; Additional info: Chest pain; SOB; Hypoxia; Copd; Asthma TECHNIQUE: Imaging protocol: Radiologic exam of the chest. Views: 1 view. COMPARISON: CR (CHEST, ) 11/15/2024 6:49 PM FINDINGS: Lungs: Unremarkable. No consolidation. Pleural spaces: Unremarkable. No pleural effusion. No pneumothorax. Heart/Mediastinum: Unremarkable. No cardiomegaly. Bones/joints: Unremarkable. XR/XR chest 1V portable [id number] IMPRESSION: No acute findings.
--- NOTE | 2024-11-24 19:13 | ECG_ITS ---
[facility] Pat Name: Crystal Pierre Department: Room: Gender: Female Medical Chief Technician: : [id number] Requested By: Tenisha Casey Order Number: [id number] Clemencia MD: Funmilayo De La Rosa M.D. Measurements Intervals [place] Rate: 79 P: 53 MD: 135 QRS: 30 QRSD: 102 T: 48 QT: 376 QTc: 433 Interpretive Statements SINUS RHYTHM POSSIBLE RIGHT VENTRICULAR CONDUCTION DELAY [RSR (QR) IN V1/V2] Compared to ECG 11/15/2024 16:41:05 Incomplete right bundle-branch block no longer present Electronically Signed On 11-26-2024 19:26:55 CDT by Funmilayo De La Rosa M.D. [email or web address]
[2024-11-24 19:14] VITALS: BP 144/67; PULSE 74; RESP 16; TEMP 36.6; O2SAT 91; BMI 38.7
--- NOTE | 2024-11-24 19:36 | W.ED.SOB ---
HPI - SOB/Dyspnea General: Chief Complaint: Shortness of Breath/Dyspnea Stated Complaint: SOB/CP Source: patient and EMS Mode of arrival: EMS Limitations: no limitations History of Present Illness: HPI Narrative: 58-year-old female is very well-known to the ER has history of CHF along with COPD states been having some shortness of breath that is going on for 2 to 3 weeks. Patient states she has had a nonproductive cough as well with a sharp chest pains worse with her cough. Patient does wear 2 L oxygen at home is 96% here on her 2 L she denies any fevers denies any vomiting or diarrhea Related Data Home Medications ?Medication ?Instructions ?Recorded ?Confirmed aspirin 81 mg tablet,delayed 81 mg PO QAM 02/15/19 11/20/24 release (Adult Aspirin Regimen) levetiracetam 250 mg tablet 250 mg PO BID 02/15/19 11/20/24 duloxetine 60 mg capsule,delayed 60 mg PO QAM 04/05/21 11/20/24 release montelukast 10 mg tablet 10 mg PO DAILY 03/15/23 11/20/24 sucralfate 1 gram tablet 1 g PO TID 03/15/23 11/20/24 vibegron 75 mg tablet (Gemtesa) 75 mg PO DAILY 06/09/23 11/20/24 gabapentin 300 mg capsule 300 mg PO TID 08/07/23 11/20/24 albuterol sulfate 90 mcg/actuation 2 puff inhalation Q6H PRN 01/19/24 11/20/24 aerosol inhaler Shortness Of Breath Or Wheezing atorvastatin 20 mg tablet 20 mg PO QPM 05/23/24 11/20/24 magnesium oxide 400 mg (241.3 mg 400 mg PO DAILY 05/23/24 11/20/24 magnesium) tablet Previous Rx's ?Medication ?Instructions ?Recorded bumetanide 2 mg tablet 2 mg PO DAILY #90 tabs 03/01/24 potassium chloride 20 mEq 20 meq PO DAILY #90 tabs 05/06/24 tablet,extended release(part/cryst) hydroxyzine HCl 10 mg tablet 10 mg PO TID PRN itching #5 tabs 05/25/24 prednisone 10 mg tablet See Taper PO DIRECTED #42 tabs 05/25/24 tiotropium bromide 2.5 2 inh inhalation QAM #4 grams 05/25/24 mcg/actuation mist for inhalation (Spiriva Respimat) metoprolol succinate 25 mg See Rx Instructions .Route 06/04/24 tablet,extended release 24 hr .COMPLEX #180 tabs isosorbide mononitrate 30 mg See Rx Instructions .Route 08/05/24 tablet,extended release 24 hr .COMPLEX #90 tabs methylprednisolone 4 mg tablets in See Rx Instructions PO .COMPLEX 11/15/24 a dose pack (Medrol (Pako)) #21 ea Synthroid 150 mcg tablet 150 mcg PO DAILY #30 tabs 11/20/24 (levothyroxine) Allergies Allergy/AdvReac Type Severity Reaction Status Date / Time chlorpromazine Allergy Unknown ALGY-Rash Verified 11/24/24 19:22 diphenhydramine Allergy Unknown Unknown Verified 11/24/24 19:22 Iodinated Contrast Media Allergy Unknown ALGY-Hives Verified 11/24/24 19:22 morphine Allergy ADR-Agitate Verified 11/24/24 19:22 d tramadol Allergy Unknown Verified 11/24/24 19:22 amoxicillin AdvReac Unknown ADR-Nausea Verified 11/24/24 19:22 codeine AdvReac Unknown ADR-Vomitin Verified 11/24/24 19:22 g Penicillins AdvReac Unknown ADR-Vomitin Verified 11/24/24 19:22 g Review of Systems Resp: Reports: dyspnea PFSH ED PFSH: Medical History (Updated 11/24/24 @ 20:12 by Tenisha Casey MD) Chronic hypoxemic respiratory failure Hypercapnic respiratory failure Hx of myocardial infarction Major depressive disorder, single episode, severe without psychotic features Sleep apnea Psychiatric care Diastolic heart failure Chest pain Lower extremity edema Atypical chest pain Cervical radiculopathy Pain of hand Diastolic CHF 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 Other Adopted Social History Smoking and tobacco/nicotine status: current every day tobacco/nicotine user Quit status (tobacco/nicotine): has quit using Year quit tobacco: 2019 - 1-5 ciggs/day Alcohol intake: never Substance/Drug Use: never Lives independently: Yes Household members: none Housing: Apartment Current occupational status: disabled Do you think of yourself as: Straight/Heterosexual Current gender identity: Female Physical Exam Const: COMMON NORMALS: no acute distress, patient oriented x3 and healthy appearing HENMT: COMMON NORMALS: normocephalic and atraumatic HEAD & SCALP: normocephalic and atraumatic Neck/C-Spine: COMMON NORMALS: full ROM and supple Chest: COMMONS NORMALS: normal inspection of the chest and normal palpation of entire chest wall Resp: COMMON NORMALS: normal respiratory effort, No retractions, No use of accessory muscles and clear to auscultation bilaterally AUSCULTATION: clear to auscultation bilaterally Cardio: COMMON NORMALS: regular rate, regular rhythm and No murmurs present (Cardio) RATE: regular rate RHYTHM: regular rhythm GI: COMMON NORMALS: Normal to inspection, nondistended, normoactive bowel sounds present, Soft to palpation, non-tender and no masses PALPATION: Yes Soft to palpation Extremity: COMMON NORMALS: normal to inspection and full ROM Neuro: COMMON NORMALS: patient oriented x3, moves all extremities and no focal motor deficits Psych: COMMON NORMALS: mental status grossly normal, Normal thought process present and cooperative THOUGHT PROCESS: Normal thought process present Skin: COMMON NORMALS: no rashes or lesions noted and no wounds GENERAL SKIN EXAM: no rashes or lesions noted Course Vital Signs: Vital signs: Vital Signs Temperature 97.8 F 11/24/24 19:14 Pulse Rate 74 11/24/24 19:14 Respiratory Rate 16 11/24/24 19:14 Blood Pressure 144/67 11/24/24 19:14 Pulse Oximetry 91 11/24/24 19:14 Oxygen Delivery Me thod Room Air 11/24/24 19:14 Clincial Decision Support The following clinical decision support tools were used to aid in care of the patient HEART Score -> History: Slightly Suspicous, EKG: Normal, Age: 45-64 yrs, Risk Factors: 1 or 2 Risk Factors, Troponin: Baseline Trop <16 ng/L. Resulting HEART Score: 2. MDM - SOB/Dyspnea Medical Decision Making Patient presents here with shortness of breath. Differential includes pneumonia, pulm embolism, ACS. Patient's chest x-ray here shows no acute abnormality she has no signs of pneumonia. Patient is not hypoxic no signs of pulmonary emboli she had some atypical chest pain no signs of ACS her troponin here is at her baseline EKG showed normal sinus rhythm heart rate [address] elevation QRS 102 QTc 411. Patient has chronic dyspnea has been and is at her baseline here did give her breathing treatment she has had no hypoxia here she stable for discharge she has to follow-up with PCP and return if worsening I did go over her EKG and imaging and labs she understands agrees to plan Medical Records I reviewed the patient's medical records. Lab Data I reviewed the patient's lab results. 11/24/24 19:35 11/24/24 19:35 Labs/Radiology: Laboratory Results WBC 8.06 10^3/uL (3.29-11.43) 11/24/24 19:35 RBC 4.29 10^6/uL (3.85-5.65) 11/24/24 19:35 Hgb 12.20 g/dL (11.27-16.99) 11/24/24 19:35 Hct 40.0 % (36-47) 11/24/24 19:35 MCV 93.2 fl (85-98) 11/24/24 19:35 MCH 28.4 pg (27-33) 11/24/24 19:35 MCHC 30.5 g/dL (30-55) 11/24/24 19:35 RDW 13.4 % (12.1-15.1) 11/24/24 19:35 Plt Count 207 10^3/cmm (157-399) 11/24/24 19:35 MPV 10.0 fL (7.4-10.4) 11/24/24 19:35 Neut % (Auto) 50.5 % 11/24/24 19:35 Lymph % (Auto) 36.7 % 11/24/24 19:35 [place] % (Auto) 9.2 % 11/24/24 19:35 Eos % (Auto) 2.5 % 11/24/24 19:35 Baso % (Auto) 0.7 % 11/24/24 19:35 Neut # (Auto) 4.07 10^3/uL (1.8-7.7) 11/24/24 19:35 Lymph # (Auto) 3.0 10^3/uL (0.8-4.8) 11/24/24 19:35 [place] # (Auto) 0.7 10^3/uL (0.2-0.9) 11/24/24 19:35 Eos # (Auto) 0.2 10^3/uL (0.0-0.8) 11/24/24 19:35 Baso # (Auto) 0.1 10^3/uL (0.0-0.1) 11/24/24 19:35 Nucleated RBC % (auto) 0 % 11/24/24 19:35 Nucleated RBCs # 0.0 /100WBC 11/24/24 19:35 Sodium 137 mmol/L (136-145) 11/24/24 19:35 Potassium 4.0 mmol/L (3.5-5.1) 11/24/24 19:35 Chloride 94 mmol/L (98-107) L 11/24/24 19:35 Carbon Dioxide 32 mmol/L (22-29) H 11/24/24 19:35 Anion Gap 15.0 (5-19) 11/24/24 19:35 BUN 13 mg/dL (6-20) 11/24/24 19:35 Creatinine 0.8 mg/dL (0.5-0.9) 11/24/24 19:35 GFR Calculation 73.4 mL/min (90-130) L 11/24/24 19:35 Glucose 97 mg/dL (65-115) 11/24/24 19:35 Calculated Osmolality 284 mOsm/kg (285-295) L 11/24/24 19:35 Calcium 9.1 mg/dL (8.5-10.5) 11/24/24 19:35 Total Bilirubin 1.3 mg/dL (0.15-1.2) H 11/24/24 19:35 AST 15 U/L (0-32) 11/24/24 19:35 ALT 9 U/L (0-33) 11/24/24 19:35 Alkaline Phosphatase 94 U/L (35-105) 11/24/24 19:35 Troponin T Baseline 19 ng/L (0-10) H 11/24/24 19:35 NT-Pro-B Natriuret Pep 44 pg/mL (0-125) 11/24/24 19:35 Total Protein 6.5 g/dL (6.6-8.7) L 11/24/24 19:35 Albumin 4.1 g/dL (3.5-5.2) 11/24/24 19:35 Globulin 2.4 g/dL (1.3-4.6) 11/24/24 19:35 All radiology interpretation(s) finalized by discharge EKG Data EKG 1: I personally reviewed and interpreted this EKG as follows: EKG Interpretation Date: 11/24/24 EKG interpretation time: 19:20 Interpretation: nsr hr [address] elevation qrs 102 qtc 411 Discharge Plan Discharge Patient Disposition: Home Clinical Impression: Shortness of breath Chest pain Qualifiers: Chest pain type: unspecified Qualified Code(s): R07.9 - Chest pain, unspecified Condition: Stable Prescriptions: No Action levetiracetam 250 mg tablet 250 mg PO BID aspirin [Adult Aspirin Regimen] 81 mg tablet,delayed release (DR/EC) 81 mg PO QAM bumetanide 2 mg tablet 2 mg PO DAILY Qty: 90 3RF levothyroxine [Synthroid] 150 mcg tablet 150 mcg PO DAILY Qty: 30 3RF potassium chloride 20 mEq tablet,ER particles/crystals 20 meq PO DAILY Qty: 90 3RF metoprolol succinate 25 mg tablet extended release 24 hr See Rx Instructions .ROUTE .COMPLEX Qty: 180 2RF Dose Instruction: TAKE 2 TABLETS BY MOUTH EVERY DAY Rx Instructions: TAKE 2 TABLETS BY MOUTH EVERY DAY isosorbide mononitrate 30 mg tablet extended release 24 hr See Rx Instructions .ROUTE .COMPLEX Qty: 90 3RF Dose Instruction: TAKE 1 TABLET BY MOUTH EVERY DAY Rx Instructions: TAKE 1 TABLET BY MOUTH EVERY DAY duloxetine 60 mg capsule,delayed release(DR/EC) 60 mg PO QAM gabapentin 300 mg capsule 300 mg PO TID albuterol sulfate 90 mcg/actuation HFA aerosol inhaler 2 puff INHALATION Q6H PRN (Reason: Shortness Of Breath Or Wheezing) atorvastatin 20 mg tablet 20 mg PO QPM magnesium oxide 400 mg (241.3 mg magnesium) tablet 400 mg PO DAILY prednisone 10 mg tablet See Taper PO DIRECTED Qty: 42 0RF Taper: predniSONE 60-10 60 mg Daily for 2 Days and 0 Hour 50 mg Daily for 2 Days and 0 Hour 40 mg Daily for 2 Days and 0 Hour 30 mg Daily for 2 Days and 0 Hour 20 mg Daily for 2 Days and 0 Hour 10 mg Daily for 2 Days and 0 Hour Rx Instructions: see taper instructions Spiriva Respimat 2.5 mcg/actuation mist 2 inh inhalation QAM Qty: 4 0RF hydroxyzine HCl 10 mg tablet 10 mg PO TID PRN (Reason: itching) Qty: 5 0RF methylprednisolone [Medrol (Pako)] 4 mg tablets,dose pack See Rx Instructions .ROUTE .COMPLEX Qty: 21 0RF Rx Instructions: orally per package directions sucralfate 1 gram tablet 1 g PO TID montelukast 10 mg tablet 10 mg PO DAILY Gemtesa 75 mg tablet 75 mg PO DAILY Discharge Orders: Discharge ED (Routine); Ordered 11/24/24 Ordered By: Tenisha Casey Referrals: Akila Rivrea DO [Primary Care Provider, [facility]ER] Discharge Diet: Advance as tolerated Discharge Activity: Resume usual activity Patient Instructions: Shortness of Breath (ED) Print Language: Citizen Of [place] Coding Level of Care Code ED Certified Ophthalmic Assistant for Dc Serrato
[2024-11-24 19:41] LABS: Hematocrit 40.0 % (36-47); Hemoglobin 12.20 g/dL (11.27-16.99); Mean Corpuscular HGB Conc 30.5 g/dL (30-55); Mean Corpuscular Hemoglobin 28.4 pg (27-33); Mean Corpuscular Volume 93.2 fl (85-98); Nucleated Red Blood Cells % 0 %; Platelet Count 207 10^3/cmm (157-399); Red Blood Count 4.29 10^6/uL (3.85-5.65); White Blood Count 8.06 10^3/uL (3.29-11.43)
--- OUTSIDE RECORDS SUMMARY | 2024-11-24 19:41 | XMS_ITS | Patient Health Record ---
Author Organization [facility] Address [address] [place] [address] Care Team Providers Care Plastic Cnc Machine Operator Name Role Phone Thu Camacho Primary Care Provider Allergies Allergen (clinical drug ingredient) Drug/Non Drug [...] End Date Status Ipratropium-Albuterol 0.5-2.5 (3) MG/3ML Solution 3 ml as needed Inhalation every 6-8 hrs; Duration: 30 days Active Vitamin D (Cholecalciferol) 25 MCG (1000 UT) Capsule 1 capsule Orally Once a day Active Magnesium Oxide 400 MG Tablet 1 tablet Orally Once a day; Duration: 30 day(s) Active Spironolactone 25 MG Tablet TAKE 1 TABLE T BY MOUTH EVERY DAY IN THE MORNING; Duration: 90 Active Pantoprazole Sodium 40 MG Tablet Delayed Release TAKE 1 TABLET BY MOUTH EVERY DAY IN THE MORNING; Duration: 90 Active Metoprolol Tartrate 50 MG Tablet 1 tablet with food Orally Twice a day; Duration: 30 day(s) Active Singulair 10 MG Tablet 1 tablet in the e vening Orally Once a day; Duration: 30 day(s) Active Symbicort 160-4.5 MCG/ACT Aerosol 2 puffs Inhalation Twice a day Active Calcitonin ([place]) 200 UNIT/ACT Solution 1 spray in 1 nostril, alternating nostrils daily Nasally Once a day Active Levothyroxine Sodium 88 MCG Tablet TAKE ONE TABLET BY MOUTH DAILY SEPERATED FROM OTHER MEDS AND ON AN EMPTY STOMACH; Duration: 90 Active Bumetanide 2 MG Tablet 1 tab in AM Orall y every 24 hrs Active metOLazone 2.5 MG Tablet 1 tablet Orally Once a day in AM; Duration: 5 days 03/20/2019 Active Aspirin 81 MG Tablet Delayed Release 1 tablet Orally Once a day; Duration: 30 day(s) Active Baclofen 5 MG Tablet 1 tablet with food or milk prn Orally Three times a day; Duration: 5 days 03/20/2019 Active Potassium Chloride ER 20 MEQ Tablet Extended Release 1 capsule with food Orally Twice a day Active Isosorbide Mononitrate ER 30 MG Tablet Extended Release 24 Hour 1/2 tablet in the morning Orally Once a day; Duration: 30 day(s) Active Albuterol Sulfate (2.5 MG/3ML) 0.083% Nebulization Solution 3 ml as needed Inhalation 3-4 times a day Active ProAir HFA 108 (90 Base) MCG/ACT Aerosol Solution 1 puff as needed Inhalation every 4 hrs Active Spiriva HandiHaler 18 MCG Capsule 1 capsule by inhaling the contents of the capsule using the HandiHaler device Inhalation Once a day Active levETIRAcetam 250 MG Tablet TAKE 1 TABLE T BY MOUTH TWICE A DAY; Duration: 90 Active Atorvastatin Calcium 20 MG Tablet 1 tablet Orally Once a day Active Mucinex 600 MG Tablet Extended Release 12 Hour TAKE 2 TABLET(S) BY MOUTH EVERY 12 HOURS; Duration: 30 Active Social History Tobacco Use: Social History Observation Description Date Details (start date - stop date) Former Smoker NA - NA Social History Drugs/Alcohol: Social Info Question Answer Notes Alcohol Screen (Audit-C) Did you have a drink containing alcohol in the past year? No Points 0 Interpretation Negative Drugs Have you used drugs other than those for medical reasons in the past 12 months? No Household: Social Info Question Answer Notes Household Marital status: Number of adults in household: 1 Number of children in household: 0 Tobacco Use: Social Info Question Answer Notes xTobacco Use/Smoking Are you a former smoker How long has it been since you last smoked? 3-6 months Additional Details Category Social Info Options Details Drugs/Alcohol: Do you smoke marijuana? De nies Do you drink alcohol? No Problems Problem Type SNOMED Code ICD Code Onset Dates Problem Status W/U Status Risk Notes Problem Obesity (901230883) Obesity, unspecified (278.00) Problem resolved confirmed [place]-985 911- Problem Abnormal weight gain (050210326) Abnormal weight gain (783.1) Problem resolved confirmed [place]-985 911- Problem Heart sounds abnormal (637182008) Other abnormal heart sounds (785.3) Problem resolved confirmed [place]-985 911- Problem Wheezing (13495396) Wheezing (786.07) Problem resolved confirmed [place]-985 911- Problem Nausea and vomiting (19998251) Nausea with vomiting (787.01) Problem resolved confirmed [place]-985 911- Problem Contusion of knee (32067853) Contusion of knee (924.11) Problem resolved confirmed [place]-985 911- Problem General weakness (71181499) Generalized weakness (780.79) Problem resolved confirmed [place]-985 911- Problem Rash (282240374) Rash (782.1) Problem resolved confirmed [place]-985 911- Problem Low back pain (235820731) Low back pain (724.2) Problem resolved confirmed [place]-985 911- Problem Thoracic back pain (546534527) Upper back pain (724.1) Problem resolved confirmed [place]-985 911- Problem Hypotension (16715146) Hypotension, other (458.8) Problem resolved confirmed [place]-985 911- Problem Screening for malignant neoplasm of colon (309857185) Screening for cancer of colon (V76.51) Problem resolved confirmed [place]-985 911- Problem Backache (818973737) Mid back pain (724.5) Problem resolved confirmed [place]-985 911- Problem Allergic rhinitis caused by pollen (43270205) Allergies (477.0) Problem resolved confirmed [place]-985 911- Problem Sore throat (244913781) Sore Throat (462) Problem resolved confirmed [place]-985 911- Problem Tobacco abuse (0942713823) Tobacco abuse (305.1) Problem resolved confirmed [place]-985 911- Problem Acute exacerbation of chronic obstructive airways disease (366632698) Acute exacerbation of chronic obstructive pulmonary disease (COPD) (491.21) Active confirmed [place]-985 911- Problem Chest pain (15969482) Chest pain (786.51) Problem resolved confirmed [place]-985 911- Problem Congestive heart failure (73886254) Congestive heart failure (428.0) Problem resolved confirmed [place]-985 911- Problem Radial styloid tenosynovitis (05931620) de Quervain's tenosynovitis (727.04) Problem resolved confirmed [place]-985 911- Problem Hyponatremia (45688218) Hyponatremia (276.1) Problem resolved confirmed [place]-985 911- Problem 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) Problem resolved confirmed [place]-985 911- Problem Sinus tachycardia (55804937) Sinus tachycardia (427.89) Problem resolved confirmed [place]-985 911- Problem Postmenopausal osteoporosis (064496630) Postmenopausal osteoporosis (733.01) Problem resolved confirmed [place]-985 911- Problem Supraventricular tachycardia (3517833) SVT (427.0) Problem resolved confirmed [place]-985 911- Problem Impacted cerumen (23599808) Cerumen impaction (380.4) Problem resolved confirmed [place]-985 911- Problem Coagulation/bleedin g tests abnormal (154250331) Prolonged bleeding time (790.92) Problem resolved confirmed [place]-985 911- Problem Cervical radiculopathy (65246843) Cervical radiculopathy (723.4) Problem resolved confirmed [place]-985 911- Problem Abnormal gait (47102600) Gait instability (781.2) Problem resolved confirmed [place]-985 911- Problem Acute gastritis (02357863) Gastritis, acute (535.00) Problem resolved confirmed [place]-985 911- Problem Acquired hypothyroidism (443905586) Acquired hypothyroidism, other specified cause (244.8) Active confirmed [place]-985 911- Problem Emphysema (96013595) Emphysema, other (492.8) Active confirmed [place]-985 911- Problem Lymphedema (193993680) Lymphedema (457.1) Active confirmed [place]-985 911- Problem Essential hypertension (87697440) Essential hypertension (401.1) Active confirmed [place]-985 911- Problem Impacted cerumen (65858804) External cerumen impaction (380.4) Problem resolved confirmed [place]-985 911- Problem Finger pain (41851211) Finger pain (729.5) Problem resolved confirmed [place]-985 911- Problem Pedal edema (265229879) Pedal edema (782.3) Problem resolved confirmed [place]-985 911- Problem Edema (406193263) Peripheral extremity edema (782.3) Active confirmed [place]-985 911- Problem 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) Toxic diffuse goiter, 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 crisis or storm (242.00) Problem resolved confirmed [place]-985 911- Problem Gynecological examination normal (914267915511329) Wellness exam (V72.31) Problem resolved confirmed [place]-985 911- Plan Of Treatment No Information Insurance Providers Payer Name Payer Address Payer Phone Subscriber Number Group Number Insured Name Patient Relationship to Insured Coverage Start Date Coverage End Date [place] [address] [address] [place] [address] [id number] Crystal Pierre Self - patient is the insured [place] Medicaid [address] [place] [address] [id number] Crystal Spann Self - patient is the insured Medications [...] appearance to distal pancreatic tail; similar to 2011, mild atherosclerosis of aorta Chest xray: 03/07/2018 which showed no ac [place] findings PFTS- 05/14/2018 Sleep Study: 2015 but results are unknow n Bone Density: 07/13/2018 Mammogram- 07/24/2017 which was normal; r efused any further 08/22/2018 Pap- 2010 which was normal; refused any further 08/22/2018 Influenza vaccine- 12/12/2018 Pneumococcal vaccine- 2012; given script 12/12/2017 Prenvar 13- Has never been done Shingles vaccine- Has never been done Shingrix- 11/05/2018 Tetanus vaccine- Unable to recall; given script 11/05/2018 Pertussis Vaccine: Given script 9 Hep C screenin11/28/2017 which was ne gative Eye Exam: 2017 Microalbumin (urine): Has never been don e GYNECOLOGICAL HISTORY Last menses- control- PAST MEDICAL HISTORY Hypertension Asthma COPD Chronic bronchitis Hypothyroidism Seizure disorder Cataract; bilateral Surgical History Surgery Date(Month/Year) Carpal tunnel; bilateral C- Section x 2 Thyroidectomy 2017 Hospitalization History Reason Date(Month/Year) Pneumonia COPD Childbirth
--- OUTSIDE RECORDS SUMMARY | 2024-11-24 19:41 | XMS_ITS | Clinical Summary ---
Author Organization [facility] Address [address] [place] [address] Phone Care Team Providers Care Malt Specifications Control Assistant Name Role Phone Татьяна Storm CLINICAL TRAINING COORDINATOR Primary Care Provider [phone] Medications No known medications Active Problems No [...] Comments Blood Pressure 138/84 01/19/2021 2:26 PM COMPLIANCE ADMINISTRATOR Pulse 73 01/19/2021 2:26 PM COMPLIANCE ADMINISTRATOR Temperature - - Respiratory Rate - - Oxygen Saturation 96% 01/19/2021 2:26 PM COMPLIANCE ADMINISTRATOR Inhaled Oxygen Concentration - - Weight 130.6 kg (288 lb) 01/19/2021 2:26 PM COMPLIANCE ADMINISTRATOR Height 170.2 cm (5' 7 ) 01/19/2021 2:26 PM COMPLIANCE ADMINISTRATOR Body Mass Index 45.11 01/19/2021 2:26 PM COMPLIANCE ADMINISTRATOR Plan of Treatment Health Maintenance Due Date [...] 2) 2014 INFLUENZA VACCINE (#1) 2024 Insurance [facility] DUAL COMPLETE HMO DSNP [facility] [id number] MEDICAID [place] Care Teams Malt Specifications Control Assistant Relationship Specialty Start Date End Date Татьяна Storm FNP [address] [place] [phone] PCP - General Nurse Practitioner Family 02/03/21
[2024-11-24 20:00] LABS: Troponin(5th) Baseline 19 ng/L (0-10)
[2024-11-24 20:07] LABS: Alanine Aminotransferase 9 U/L (0-33); Albumin Level 4.1 g/dL (3.5-5.2); Alkaline Phosphatase 94 U/L (35-105); Aspartate Amino Transferase 15 U/L (0-32); Blood Urea Nitrogen 13 mg/dL (6-20); Calcium 9.1 mg/dL (8.5-10.5); Carbon Dioxide 32 mmol/L (22-29); Chloride 94 mmol/L (98-107); Creatinine Clr Calc Pharmacy 97.7464; Globulin 2.4 g/dL (1.3-4.6); Glucose 97 mg/dL (65-115); NT Pro B Type Natriuretic Pept 44 pg/mL (0-125); Osmolality Calculated 284 mOsm/kg (285-295); Sodium 137 mmol/L (136-145); Total Protein 6.5 g/dL (6.6-8.7)
[2024-11-24 20:10] LABS: Anion Gap 15.0 (5-19); Potassium 4.0 mmol/L (3.5-5.1)
[2024-11-24 20:36] VITALS: BP 133/71; PULSE 76; O2SAT 94
[2024-11-24 20:45] VITALS: PULSE 86; RESP 20; O2SAT 95
[2024-11-24 20:55] VITALS: PULSE 78; O2SAT 95
[2024-11-24 21:43] VITALS: BP 153/92; PULSE 87; O2SAT 91
== END 2024-11-24 21:44 | disposition home or self-care (01) ==
PROVIDERS: Emergency Provider Emergency Medicine; PCP Family Medicine
DX: R06.02 Shortness of breath (principal); R07.9 Chest pain, unspecified; Z79.82 Long term (current) use of aspirin; Z72.0 Tobacco use; J44.9 Chronic obstructive pulmonary disease, unspecified; I11.0 Hypertensive heart disease with heart failure; I50.30 Unspecified diastolic (congestive) heart failure
CPT/HCPCS: 36415; 71045; 80053; 83880; 84484; 85025; 93005; 94640; 99285; J9999

== ENCOUNTER 2024-12-04 13:18 | Outpatient (CLI) | payer OTHER, SELFPAY ==
[2024-07-22 10:43] VITALS: BP 123/72; BMI 39.3
[2024-12-04 14:13] LABS: Free T4 Free Thyroxine 1.48 ng/dL (0.82-1.77); Thyroid Stimulating Hormone 1.86 uIU/mL (0.27-4.20)
== END 2024-12-04 13:19 | disposition home or self-care (01) ==
LOC: LAB 13:19
PROVIDERS: PCP Family Medicine; Visit Provider Internal Medicine
DX: J96.02 Acute respiratory failure with hypercapnia (principal); J96.01 Acute respiratory failure with hypoxia
CPT/HCPCS: 84439; 84443

== ENCOUNTER 2024-12-09 19:57 | Emergency (ER) | payer MEDICARE, MEDICAID, SELFPAY ==
[2024-07-22 10:43] VITALS: BP 123/72; BMI 39.3
[2024-12-09 19:59] VITALS: BP 124/68; PULSE 72; RESP 18; TEMP 36.8; O2SAT 95; BMI 36.3
--- OUTSIDE RECORDS SUMMARY | 2024-12-09 20:01 | XMS_ITS | Clinical Summary ---
Author Organization [facility] Address [address] [place] [address] Phone Care Team Providers Care Harvest Worker Fruit Name Role Phone Татьяна Storm MANAGER PROTEIN Primary Care Provider [phone] Medications No known medications Active Problems No [...] Comments Blood Pressure 138/84 01/19/2021 2:26 PM BASKET HAND WEAVER Pulse 73 01/19/2021 2:26 PM BASKET HAND WEAVER Temperature - - Respiratory Rate - - Oxygen Saturation 96% 01/19/2021 2:26 PM BASKET HAND WEAVER Inhaled Oxygen Concentration - - Weight 130.6 kg (288 lb) 01/19/2021 2:26 PM BASKET HAND WEAVER Height 170.2 cm (5' 7 ) 01/19/2021 2:26 PM BASKET HAND WEAVER Body Mass Index 45.11 01/19/2021 2:26 PM BASKET HAND WEAVER Plan of Treatment Health Maintenance Due Date [...] 2) 2014 INFLUENZA VACCINE (#1) 2024 Insurance [facility] DUAL COMPLETE HMO DSNP [facility] [id number] MEDICAID [place] Care Teams Harvest Worker Fruit Relationship Specialty Start Date End Date Татьяна Storm FNP [address] [place] [id number] PCP - General Nurse Practitioner Family 02/03/21
--- OUTSIDE RECORDS SUMMARY | 2024-12-09 20:01 | XMS_ITS | Patient Health Record ---
Author Organization [facility] Address [address] [place] [address] Care Team Providers Care Teacher Physically Impaired Name Role Phone Thu Camacho Primary Care [...] puffs Inhalation Twice a day Active Calcitonin ([place]) 200 UNIT/ACT Solution 1 spray in 1 [...] Problem Status W/U Status Risk Notes Problem Gynecological examination normal (538227244237372) Wellness exam (V72.31) Problem resolved confirmed [place]-985 911- Problem Toxic diffuse goiter with no crisis (290948552) Toxic diffuse goiter, 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 crisis or storm (242.00) Problem resolved confirmed [place]-985 911- Problem Pedal edema (755575454) Pedal edema (782.3) Problem resolved confirmed [place]-985 911- Problem Finger pain (53781909) Finger pain (729.5) Problem resolved confirmed [place]-985 911- Problem Impacted cerumen (90054230) External cerumen impaction (380.4) Problem resolved confirmed [place]-985 911- Problem Acute gastritis (51573820) Gastritis, acute (535.00) Problem resolved confirmed [place]-985 911- Problem Abnormal gait (57435020) Gait instability (781.2) Problem resolved confirmed [place]-985 911- Problem Cervical radiculopathy (42720666) Cervical radiculopathy (723.4) Problem resolved confirmed [place]-985 911- Problem Coagulation/bleedin g tests abnormal (946229725) Prolonged bleeding time (790.92) Problem resolved confirmed [place]-985 911- Problem Impacted cerumen (47640283) Cerumen impaction (380.4) Problem resolved confirmed [place]-985 911- Problem Supraventricular tachycardia (1878958) SVT (427.0) Problem resolved confirmed [place]-985 911- Problem Postmenopausal osteoporosis (841512794) Postmenopausal osteoporosis (733.01) Problem resolved confirmed [place]-985 911- Problem Sinus tachycardia (51199904) Sinus tachycardia (427.89) Problem resolved confirmed [place]-985 911- Problem 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) Problem resolved confirmed [place]-985 911- Problem Hyponatremia (14301818) Hyponatremia (276.1) Problem resolved confirmed [place]-985 911- Problem Radial styloid tenosynovitis (86994167) de Quervain's tenosynovitis (727.04) Problem resolved confirmed [place]-985 911- Problem Congestive heart failure (65597744) Congestive heart failure (428.0) Problem resolved confirmed [place]-985 911- Problem Chest pain (20637563) Chest pain (786.51) Problem resolved confirmed [place]-985 911- Problem Tobacco abuse (7428920147) Tobacco abuse (305.1) Problem resolved confirmed [place]-985 911- Problem Sore throat (900252269) Sore Throat (462) Problem resolved confirmed [place]-985 911- Problem Allergic rhinitis caused by pollen (92332058) Allergies (477.0) Problem resolved confirmed [place]-985 911- Problem Backache (781667441) Mid back pain (724.5) Problem resolved confirmed [place]-985 911- Problem Screening for malignant neoplasm of colon (565896296) Screening for cancer of colon (V76.51) Problem resolved confirmed [place]-985 911- Problem Hypotension (44596696) Hypotension, other (458.8) Problem resolved confirmed [place]-985 911- Problem Thoracic back pain (252807459) Upper back pain (724.1) Problem resolved confirmed [place]-985 911- Problem Low back pain (240432327) Low back pain (724.2) Problem resolved confirmed [place]-985 911- Problem Rash (106522382) Rash (782.1) Problem resolved confirmed [place]-985 911- Problem General weakness (53234314) Generalized weakness (780.79) Problem resolved confirmed [place]-985 911- Problem Contusion of knee (72418464) Contusion of knee (924.11) Problem resolved confirmed [place]-985 911- Problem Nausea and vomiting (62095471) Nausea with vomiting (787.01) Problem resolved confirmed [place]-985 911- Problem Wheezing (37370732) Wheezing (786.07) Problem resolved confirmed [place]-985 911- Problem Heart sounds abnormal (371653036) Other abnormal heart sounds (785.3) Problem resolved confirmed [place]-985 911- Problem Abnormal weight gain (574474754) Abnormal weight gain (783.1) Problem resolved confirmed [place]-985 911- Problem Obesity (867846075) Obesity, unspecified (278.00) Problem resolved confirmed [place]-985 911- Problem Edema (144376268) Peripheral extremity edema (782.3) Active confirmed [place]-985 911- Problem Essential hypertension (49024610) Essential hypertension (401.1) Active confirmed [place]-985 911- Problem Lymphedema (872452615) Lymphedema (457.1) Active confirmed [place]-985 911- Problem Emphysema (98714128) Emphysema, other (492.8) Active confirmed [place]-985 911- Problem Acquired hypothyroidism (079736206) Acquired hypothyroidism, other specified cause (244.8) Active confirmed [place]-985 911- Problem Acute exacerbation of chronic obstructive airways disease (201627111) Acute exacerbation of chronic obstructive pulmonary disease (COPD) (491.21) Active confirmed [place]-985 911- Plan Of Treatment No Information Insurance Providers Payer Name Payer Address Payer Phone Subscriber Number Group Number Insured Name Patient Relationship to Insured Coverage Start Date Coverage End Date [place] [address] [address] [place] [address] [id number] Crystal Pierre Self - patient is the insured [place] Medicaid [address] [place] [address] [id number] Crystal Spann Self - patient is the [...] Chest xray: 03/07/2018 which showed no ac unga findings PFTS- 05/14/2018 Sleep Study: 2015 but [...]
--- NOTE | 2024-12-09 20:11 | ECG_ITS ---
[facility] Test Date: 2024-12-09 Pat Name: Crystal Pierre Department: Room: Gender: Female Director Of Recruiting: : 1965 Requested By: Ellyn Benites Order Number: [id number] Clemencia MD: Funmilayo De La Rosa M.D. Measurements Intervals [place] Rate: 80 P: 62 MS: 126 QRS: 45 QRSD: 101 T: 58 QT: 372 QTc: 429 Interpretive Statements SINUS RHYTHM Compared to ECG 11/24/2024 19:20:54 No significant changes Electronically Signed On 12-10-2024 22:04:16 DUMPMAN by Funmilayo De La Rosa M.D. [id number]
--- NOTE | 2024-12-09 20:24 | XRR_ITS ---
PROCEDURE INFORMATION: Exam: XR Chest Exam date and time: 12/09/2024 8:40 PM Age: 58 years old Clinical indication: Shortness of breath TECHNIQUE: Imaging protocol: Radiologic exam of the chest. Views: 2 views. COMPARISON: CR (CHEST, ) 11/24/2024 7:34 PM FINDINGS: Lungs: Haziness of the bilateral lungs, could be related to low lung volumes though can not exclude mild edema or infiltrates, clinical correlation. Pleural spaces: Unremarkable. No pleural effusion. No pneumothorax. Heart/Mediastinum: Unremarkable. No cardiomegaly. Bones/joints: Unremarkable. XR/XR chest 2V* [id number] IMPRESSION: No definite acute cardiopulmonary abnormality, incidentals as above.
[2024-12-09 21:06] LABS: Glucose Urine UA Negative (Normal); Nitrate Urine Negative (Negative); Specific Gravity, Urine 1.028 (1.005-1.030)
[2024-12-09 21:07] LABS: Hematocrit 36.4 % (36-47); Hemoglobin 11.10 g/dL (11.27-16.99); Mean Corpuscular HGB Conc 30.5 g/dL (30-55); Mean Corpuscular Hemoglobin 28.8 pg (27-33); Mean Corpuscular Volume 94.5 fl (85-98); Nucleated Red Blood Cells % 0 %; Platelet Count 305 10^3/cmm (157-399); Red Blood Count 3.85 10^6/uL (3.85-5.65); White Blood Count 9.30 10^3/uL (3.29-11.43)
[2024-12-09 21:10] LABS: Add Urine Microscopic? YES
[2024-12-09 21:55] LABS: Troponin(5th) Baseline 12 ng/L (0-10)
[2024-12-09 22:05] LABS: Alanine Aminotransferase 7 U/L (0-33); Albumin Level 3.8 g/dL (3.5-5.2); Alkaline Phosphatase 95 U/L (35-105); Anion Gap 11.4 (5-19); Aspartate Amino Transferase 11 U/L (0-32); Blood Urea Nitrogen 11 mg/dL (6-20); Calcium 8.9 mg/dL (8.5-10.5); Carbon Dioxide 36 mmol/L (22-29); Chloride 100 mmol/L (98-107); Creatinine Clr Calc Pharmacy 107.9923; Globulin 2.6 g/dL (1.3-4.6); Glucose 118 mg/dL (65-115); NT Pro B Type Natriuretic Pept 191 pg/mL (0-125); Osmolality Calculated 296 mOsm/kg (285-295); Potassium 4.4 mmol/L (3.5-5.1); Sodium 143 mmol/L (136-145); Total Protein 6.4 g/dL (6.6-8.7)
[2024-12-10] VITALS (12 sets, daily range): BP systolic 118–155; BP diastolic 66–86; PULSE 79–89; RESP 18; O2SAT 92–100
[2024-12-10 00:01] LABS: Troponin 5 2HR 12.80 ng/L (0-10); Troponin 5 2HR Delta 0.80 ABS# (0-10)
--- NOTE | 2024-12-10 00:11 | W.ED.GENADLT ---
HPI - General Adult General: Chief complaint: Shortness of Breath/Dyspnea Stated complaint: n/v Time Seen by Provider: 12/10/24 00:09 History of Present Illness: 58yo F w/pmhx of COPD on 3L at home at baseline, diastolic HF w/preserved EF, GERD, lymphedema of the lower extremities w/cc of shortness of breath for 4 weeks, worse in the last day or so. She has not had a fever but reports chills. She reports productive yellow/green sputum. Patient denies hemoptysis or syncope. She denies LE asymmetry/new swelling. She is not experiencing chest pain at this time. She occasionally feels a little nauseated but no abd pain, vomiting, diarrhea, dysuria. She received duoneb per EMS. Related Data Home Medications ?Medication ?Instructions ?Recorded ?Confirmed aspirin 81 mg tablet,delayed 81 mg PO QAM 02/15/19 11/20/24 release (Adult Aspirin Regimen) levetiracetam 250 mg tablet 250 mg PO BID 02/15/19 11/20/24 duloxetine 60 mg capsule,delayed 60 mg PO QAM 04/05/21 11/20/24 release montelukast 10 mg tablet 10 mg PO DAILY 03/15/23 11/20/24 sucralfate 1 gram tablet 1 g PO TID 03/15/23 11/20/24 vibegron 75 mg tablet (Gemtesa) 75 mg PO DAILY 06/09/23 11/20/24 gabapentin 300 mg capsule 300 mg PO TID 08/07/23 11/20/24 albuterol sulfate 90 mcg/actuation 2 puff inhalation Q6H PRN 01/19/24 11/20/24 aerosol inhaler Shortness Of Breath Or Wheezing atorvastatin 20 mg tablet 20 mg PO QPM 05/23/24 11/20/24 magnesium oxide 400 mg (241.3 mg 400 mg PO DAILY 05/23/24 11/20/24 magnesium) tablet Previous Rx's ?Medication ?Instructions ?Recorded bumetanide 2 mg tablet 2 mg PO DAILY #90 tabs 03/01/24 potassium chloride 20 mEq 20 meq PO DAILY #90 tabs 05/06/24 tablet,extended release(part/cryst) hydroxyzine HCl 10 mg tablet 10 mg PO TID PRN itching #5 tabs 05/25/24 prednisone 10 mg tablet See Taper PO DIRECTED #42 tabs 05/25/24 tiotropium bromide 2.5 2 inh inhalation QAM #4 grams 05/25/24 mcg/actuation mist for inhalation (Spiriva Respimat) metoprolol succinate 25 mg See Rx Instructions .Route 06/04/24 tablet,extended release 24 hr .COMPLEX #180 tabs isosorbide mononitrate 30 mg See Rx Instructions .Route 08/05/24 tablet,extended release 24 hr .COMPLEX #90 tabs methylprednisolone 4 mg tablets in See Rx Instructions PO .COMPLEX 11/15/24 a dose pack (Medrol (Pako)) #21 ea Synthroid 150 mcg tablet 150 mcg PO DAILY #30 tabs 11/20/24 (levothyroxine) levofloxacin 750 mg tablet 750 mg PO DAILY 5 days #5 tabs 12/10/24 prednisone 20 mg tablet 20 mg PO BID 5 days #10 tabs 12/10/24 Allergies Allergy/AdvReac Type Severity Reaction Status Date / Time chlorpromazine Allergy Unknown ALGY-Rash Verified 11/24/24 19:22 diphenhydramine Allergy Unknown Unknown Verified 11/24/24 19:22 Iodinated Contrast Media Allergy Unknown ALGY-Hives Verified 11/24/24 19:22 morphine Allergy ADR-Agitate Verified 11/24/24 19:22 d tramadol Allergy Unknown Verified 11/24/24 19:22 amoxicillin AdvReac Unknown ADR-Nausea Verified 11/24/24 19:22 codeine AdvReac Unknown ADR-Vomitin Verified 11/24/24 19:22 g Penicillins AdvReac Unknown ADR-Vomitin Verified 11/24/24 19:22 g PFSH ED PFSH: Medical History (Updated 12/10/24 @ 04:38 by Ellyn Benites MD) Chronic hypoxemic respiratory failure Hypercapnic respiratory failure Hx of myocardial infarction Major depressive disorder, single episode, severe without psychotic features Sleep apnea Psychiatric care Diastolic heart failure Chest pain Lower extremity edema Atypical chest pain Cervical radiculopathy Pain of hand Diastolic CHF 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 Other Adopted Social History Smoking and tobacco/nicotine status: current every day tobacco/nicotine user Quit status (tobacco/nicotine): has quit using Year quit tobacco: 2018 - -5 ciggs/day Alcohol intake: never Substance/Drug Use: never Lives independently: Yes Household members: none Housing: Apartment Current occupational status: disabled Do you think of yourself as: Straight/Heterosexual Current gender identity: Female Physical Exam Narrative: EXAM NARRATIVE: Vital signs were reviewed. Patient is alert and oriented. Patient is breathing comfortably on 3L O2 no increased WOB or accessory muscle use. SpO2 is above 95% on 3L home O2. Patient has diffuse expiratory wheezing, crackles/rhonchi in the lung bases. No hypotension or tachycardia. Abdomen is soft, nondistended and nontender. Patient is moving all extremities, no deformity or gross injury. No lower extremity asymmetry. +2 b/l pitting edema. Course Vital Signs: Vital signs: Vital Signs Temperature 98.2 F 12/09/24 19:59 Pulse Rate 89 12/10/24 05:12 Respiratory Rate 18 12/10/24 03:16 Blood Pressure 134/86 12/10/24 05:12 Pulse Oximetry 93 12/10/24 05:12 Oxygen Delivery Me thod Nasal Cannula 12/10/24 05:00 Oxygen Flow Rate 3 12/10/24 05:00 MDM - General Adult Medical Decision Making 58yo F w/pmhx of COPD on 3L at home at baseline, diastolic HF w/preserved EF, GERD, lymphedema of the lower extremities w/cc of shortness of breath for 4 weeks, worse in the last day or so. Differential diagnosis includes, but is limited to, viral upper respiratory infection, COPD exacerbation, pneumonia, CHF, ACS, pulmonary edema, pneumothorax, PE, other. On exam, patient is hemodynamically stable, is on baseline home O2. Patient was treated with DuoNeb x 3 and IV steroids for expiratory wheezing. Patient was evaluated with EKG which shows normal sinus rhythm with a heart rate of 80, normal axis, normal intervals, no STEMI. Patient was evaluated with CBC, CMP, troponin, BNP, UA, COVID and flu screen. Patient has a normal white blood cell count. Patient has adequate kidney function, no actionable electrolyte abnormalities. She has a minimally elevated troponin but delta is negative as is 6-hour high-sensitivity troponin. BNP is only minimally elevated and given the chest x-ray does not show significant pulmonary edema, she does not have increased lower extremity swelling/edema, her presentation is not consistent with acute on chronic decompensation of congestive heart failure. Chest x-ray shows mild opacities in the lung bases and given her chills, malaise, productive cough and COPD exacerbation, she will be treated with antibiotics, steroids for lung infection complicated by COPD exacerbation. She has an appointment with her primary care physician later today. At this time, patient is feeling better and is amenable to outpatient follow-up. Patient was counseled on supportive care at home, given return precautions and discharged in stable condition with recommendation for outpatient follow-up with primary care nurse or doctor. Lab Data 12/09/24 20:36 12/09/24 21:23 Radiology Impressions Chest X-Ray 12/09/24 20:24 IMPRESSION: No definite acute cardiopulmonary abnormality, incidentals as above. Laboratory Results WBC 9.30 10^3/uL (3.29-11.43) 12/09/24 20:36 RBC 3.85 10^6/uL (3.85-5.65) 12/09/24 20:36 Hgb 11.10 g/dL (11.27-16.99) L 12/09/24 20:36 Hct 36.4 % (36-47) 12/09/24 20:36 MCV 94.5 fl (85-98) 12/09/24 20:36 MCH 28.8 pg (27-33) 12/09/24 20:36 MCHC 30.5 g/dL (30-55) 12/09/24 20:36 RDW 13.0 % (12.1-15.1) 12/09/24 20:36 Plt Count 305 10^3/cmm (157-399) 12/09/24 20:36 MPV 10.8 fL (7.4-10.4) H 12/09/24 20:36 Neut % (Auto) 60.8 % 12/09/24 20:36 Lymph % (Auto) 26.7 % 12/09/24 20:36 [place] % (Auto) 9.2 % 12/09/24 20:36 Eos % (Auto) 2.6 % 12/09/24 20:36 Baso % (Auto) 0.4 % 12/09/24 20:36 Neut # (Auto) 5.65 10^3/uL (1.8-7.7) 12/09/24 20:36 Lymph # (Auto) 2.5 10^3/uL (0.8-4.8) 12/09/24 20:36 [place] # (Auto) 0.9 10^3/uL (0.2-0.9) 12/09/24 20:36 Eos # (Auto) 0.2 10^3/uL (0.0-0.8) 12/09/24 20:36 Baso # (Auto) 0.0 10^3/uL (0.0-0.1) 12/09/24 20:36 Nucleated RBC % (auto) 0 % 12/09/24 20:36 Nucleated RBCs # 0.0 /100WBC 12/09/24 20:36 Sodium 143 mmol/L (136-145) 12/09/24 21:23 Potassium 4.4 mmol/L (3.5-5.1) 12/09/24 21:23 Chloride 100 mmol/L (98-107) 12/09/24 21:23 Carbon Dioxide 36 mmol/L (22-29) H 12/09/24 21:23 Anion Gap 11.4 (5-19) 12/09/24 21:23 BUN 11 mg/dL (6-20) 12/09/24 21:23 Creatinine 0.7 mg/dL (0.5-0.9) 12/09/24 21:23 GFR Calculation 85.6 mL/min (90-130) L 12/09/24 21:23 Glucose 118 mg/dL (65-115) H 12/09/24 21:23 Calculated Osmolality 296 mOsm/kg (285-295) H 12/09/24 21:23 Calcium 8.9 mg/dL (8.5-10.5) 12/09/24 21:23 Total Bilirubin 0.7 mg/dL (0.15-1.2) 12/09/24 21:23 AST 11 U/L (0-32) 12/09/24 21:23 ALT 7 U/L (0-33) 12/09/24 21:23 Alkaline Phosphatase 95 U/L (35-105) 12/09/24 21:23 Troponin T Baseline 12 ng/L (0-10) H 12/09/24 21:23 Troponin T 120 Minute 12.80 ng/L (0-10) H 12/09/24 23:23 Delta Troponin T 0.80 ABS# (0-10) 12/09/24 23:23 Troponin T Hi Sens 6Hr 11.52 ng/L (0-10) H 12/10/24 03:37 Troponin T Hi Sens 6Hr Delta -0.48 ng/L (0-12) L 12/10/24 03:37 NT-Pro-B Natriuret Pep 191 pg/mL (0-125) H 12/09/24 21:23 Total Protein 6.4 g/dL (6.6-8.7) L 12/09/24 21:23 Albumin 3.8 g/dL (3.5-5.2) 12/09/24 21:23 Globulin 2.6 g/dL (1.3-4.6) 12/09/24 21:23 Urine Color Dark yellow (Yellow) A 12/09/24 20:56 Urine Appearance Cloudy (CLEAR) A 12/09/24 20:56 Urine pH 6.5 (5-7) 12/09/24 20:56 Ur Specific [place] 1.028 (1.005-1.030) 12/09/24 20:56 Urine Protein 1+ (Negative) A 12/09/24 20:56 Urine Glucose (UA) Negative (Normal) 12/09/24 20:56 Urine Ketones Trace (Negative) 12/09/24 20:56 Urine Blood Negative (Negative) 12/09/24 20:56 Urine Nitrate Negative (Negative) 12/09/24 20:56 Urine Bilirubin Negative (Negative) 12/09/24 20:56 Urine Urobilinogen 1.0 mg/dL (Negative) 12/09/24 20:56 Ur Leukocyte Esterase Negative (Negative) 12/09/24 20:56 Urine RBC 3-5 /hpf (0-2) 12/09/24 20:56 Urine WBC 0-5 /hpf (0-5) 12/09/24 20:56 Ur Squamous Epith Cells 6-10 /hpf (0-5) 12/09/24 20:56 Amorphous Sediment Not Reportable 12/09/24 20:56 Urine Bacteria 1+ /hpf (NONE) H 12/09/24 20:56 Hyaline Casts 1.21 /lpf 12/09/24 20:56 Influenza A (PCR) Negative (Negative) 12/10/24 01:45 Influenza Type B (PCR) Negative (Negative) 12/10/24 01:45 RSV (PCR) Negative (Negative) 12/10/24 01:45 SARS-CoV-2 (PCR) Negative (Negative) 12/10/24 01:45 All radiology interpretation(s) finalized by discharge EKG Data EKG 1: Interpretation: Normal sinus rhythm with a heart rate of 80, normal axis, normal intervals, no STEMI. Computer generated interpretation: Chest X-Ray 12/09/24 20:24 IMPRESSION: No definite acute cardiopulmonary abnormality, incidentals as above. Discharge Plan Discharge Patient Disposition: Home Clinical Impression: COPD with acute exacerbation, Shortness of breath Pneumonia Qualifiers: Pneumonia type: due to unspecified organism Laterality: bilateral Lung location: lower lobe of lung Qualified Code(s): J18.9 - Pneumonia, unspecified organism Condition: Stable Prescriptions: New prednisone 20 mg tablet 20 mg PO BID 5 Days Qty: 10 0RF levofloxacin 750 mg tablet 750 mg PO DAILY 5 Days Qty: 5 0RF No Action levetiracetam 250 mg tablet 250 mg PO BID aspirin [Adult Aspirin Regimen] 81 mg tablet,delayed release (DR/EC) 81 mg PO QAM bumetanide 2 mg tablet 2 mg PO DAILY Qty: 90 3RF levothyroxine [Synthroid] 150 mcg tablet 150 mcg PO DAILY Qty: 30 3RF potassium chloride 20 mEq tablet,ER particles/crystals 20 meq PO DAILY Qty: 90 3RF metoprolol succinate 25 mg tablet extended release 24 hr See Rx Instructions .ROUTE .COMPLEX Qty: 180 2RF Dose Instruction: TAKE 2 TABLETS BY MOUTH EVERY DAY Rx Instructions: TAKE 2 TABLETS BY MOUTH EVERY DAY isosorbide mononitrate 30 mg tablet extended release 24 hr See Rx Instructions .ROUTE .COMPLEX Qty: 90 3RF Dose Instruction: TAKE 1 TABLET BY MOUTH EVERY DAY Rx Instructions: TAKE 1 TABLET BY MOUTH EVERY DAY duloxetine 60 mg capsule,delayed release(DR/EC) 60 mg PO QAM gabapentin 300 mg capsule 300 mg PO TID albuterol sulfate 90 mcg/actuation HFA aerosol inhaler 2 puff INHALATION Q6H PRN (Reason: Shortness Of Breath Or Wheezing) atorvastatin 20 mg tablet 20 mg PO QPM magnesium oxide 400 mg (241.3 mg magnesium) tablet 400 mg PO DAILY prednisone 10 mg tablet See Taper PO DIRECTED Qty: 42 0RF Taper: predniSONE 60-10 60 mg Daily for 2 Days and 0 Hour 50 mg Daily for 2 Days and 0 Hour 40 mg Daily for 2 Days and 0 Hour 30 mg Daily for 2 Days and 0 Hour 20 mg Daily for 2 Days and 0 Hour 10 mg Daily for 2 Days and 0 Hour Rx Instructions: see taper instructions Spiriva Respimat 2.5 mcg/actuation mist 2 inh inhalation QAM Qty: 4 0RF hydroxyzine HCl 10 mg tablet 10 mg PO TID PRN (Reason: itching) Qty: 5 0RF methylprednisolone [Medrol (Pako)] 4 mg tablets,dose pack See Rx Instructions .ROUTE .COMPLEX Qty: 21 0RF Rx Instructions: orally per package directions sucralfate 1 gram tablet 1 g PO TID montelukast 10 mg tablet 10 mg PO DAILY Gemtesa 75 mg tablet 75 mg PO DAILY Discharge Orders: Discharge ED (Routine); Ordered 12/10/24 Ordered By: Ellyn Benites Referrals: Akila Rivera DO [Primary Care Provider, PLATE FITTER] Patient Instructions: COPD (Chronic Obstructive Pulmonary Disease) (ED), Opioid Safety, Pain Management, Patient Portal & Kailyn Instructions Activity Restrictions/Additional Instructions: Please note that you have been prescribed steroids and antibiotics for COPD exacerbation and possible lung infection. Please continue to monitor your condition closely at home. If your condition worsens or additional concerns arise, please return probably to the emergency department for reassessment. Specifically, continue to monitor for fever despite taking antibiotics, worsening shortness of breath despite antibiotics and steroids, coughing up blood, fainting spell, new chest pain, swelling in 1 leg more than the other, any other concerns that are different or new. Please follow-up with your primary care physician today as scheduled. Please talk to your doctor about repeat chest xray in 4-6 weeks to ensure abnormalities on your chest xray have resolved. Print Language: Spanish Coding Level of Care Code ED Ground Services Instructor for Dc Serrato
--- NOTE | 2024-12-10 02:24 | ECG_ITS ---
[facility]: [facility]10 Pat Name: Crystal Pierre Department: Room: Gender: Female Environmental Program Manager: : 1965 Requested By: Ellyn Benites Order Number: [id number] Clemencia MD: Funmilayo De La Rosa M.D. Measurements Intervals [place] Rate: 82 P: 70 IN: 136 QRS: 56 QRSD: 96 T: 67 QT: 357 QTc: 418 Interpretive Statements SINUS RHYTHM Compared to ECG 12/09/2024 20:11:38 No significant changes Electronically Signed On 12-10-2024 22:19:58 NEW CAR SALES MANAGER by Funmilayo De La Rosa M.D. [email or web address]
[2024-12-10 03:10] LABS: Respiratory Syncytial Virus Ce NEGATIVE (Negative); SARS-CoV-2 PCR NEGATIVE (Negative)
[2024-12-10 04:25] LABS: Troponin 5 6HR 11.52 ng/L (0-10)
[2024-12-10 04:26] LABS: Troponin 5 6HR Delta -0.48 ng/L (0-12)
== END 2024-12-10 05:42 | disposition home or self-care (01) ==
PROVIDERS: Emergency Provider Emergency Medicine; PCP Family Medicine
DX: J44.1 Chronic obstructive pulmonary disease with (acute) exacerbation (principal); R06.02 Shortness of breath; J18.9 Pneumonia, unspecified organism; Z79.82 Long term (current) use of aspirin; Z11.52 Encounter for screening for COVID-19; Z72.0 Tobacco use; I11.0 Hypertensive heart disease with heart failure; I50.30 Unspecified diastolic (congestive) heart failure
CPT/HCPCS: 36415; 71046; 80053; 81001; 83880; 84484; 85025; 87637; 93005; 94640; 96374; 99285; J1100; J7626; J9999

== ENCOUNTER 2025-01-01 13:31 | Emergency (ER) | payer MEDICARE, MEDICAID, SELFPAY ==
[2024-07-22 10:43] VITALS: BP 123/72; BMI 39.3
[2025-01-01 13:31] VITALS: BP 127/78; PULSE 87; RESP 25; TEMP 36.9; O2SAT 97; BMI 38.8
--- NOTE | 2025-01-01 13:39 | ECG_ITS ---
[facility]01 Pat Name: Crystal Pierre Department: Room: Gender: Female Billing Assistant: : 1965 Requested By: Vickie Nelson Order Number: [id number] Khanna MD: Estelle Johnson M.D. Measurements Intervals [place] Rate: 77 P: 58 [place]: 119 QRS: 46 QRSD: 106 T: 57 QT: 395 QTc: 449 Interpretive Statements SINUS RHYTHM WITH SINUS ARRHYTHMIA POSSIBLE LATERAL MYOCARDIAL INFARCTION , PROBABLY OLD [30 ms Q WAVE IN I/aVL/V5/V6] Compared to ECG 12/10/2024 02:39:22 Myocardial infarct finding now present Electronically Signed On 01-02-2025 17:34:51 DIRECTOR OF CORPORATE REAL ESTATE by Estelle Johnson M.D. [email or web address] [id number]
--- NOTE | 2025-01-01 13:39 | XRR_ITS ---
PROCEDURE INFORMATION: Exam: XR Chest Exam date and time: 01/01/2025 1:41 PM Age: 59 years old Clinical indication: Shortness of breath; Additional info: SOB TECHNIQUE: Imaging protocol: Radiologic exam of the chest. Views: 1 view. COMPARISON: CR (CHEST, ) 12/09/2024 8:40 PM FINDINGS: Lungs: Unremarkable. No consolidation. Pleural spaces: Unremarkable. No pleural effusion. No pneumothorax. Heart/Mediastinum: Cardiac silhouette is enlarged. Bones/joints: Unremarkable. Soft tissues: Upper abdominal surgical clips may reflect prior cholecystectomy. XR/XR chest 1V portable [id number] IMPRESSION: No acute cardiopulmonary findings.
--- NOTE | 2025-01-01 13:40 | W.ED.SOB ---
HPI - SOB/Dyspnea General: Chief Complaint: Shortness of Breath/Dyspnea Stated Complaint: SOB Time Seen by Provider: 01/01/25 13:33 Source: patient Mode of arrival: EMS Limitations: no limitations History of Present Illness: HPI Narrative: Patient is a 59 yo female well known to our ED that carries diagnoses of COPD on 3-4L continuous O2 at home, diastolic HF w/preserved EF, GERD, lymphedema of the lower extremities, hyperlipidemia, depression, chronic respiratory failure, hypothyroidism, seizure disorder, among others here with a complaint of shortness of breath and chest pain. She states symptoms have been present for quite a while . She was seen here several weeks ago for similar symptoms including shortness of breath. Patient is satting at 97% upon arrival on her normal 4 L of oxygen. Denies productive cough. No fevers. No sick contacts. MD elicited complaint: shortness of breath and chest pain Pertinent past history: COPD and congestive heart failure Onset (ago): day(s) Timing: constant Known history of: COPD and congestive heart failure Associated symptoms: Reports chest pain; Deny abdominal pain, dizziness, fever(s), hemoptysis, lightheadedness, nausea, palpitations, syncope or vomiting Treatment prior to arrival: oxygen and bronchodilator Related Data Home Medications ?Medication ?Instructions ?Recorded ?Confirmed aspirin 81 mg tablet,delayed 81 mg PO QAM 02/15/19 01/01/25 release (Adult Aspirin Regimen) duloxetine 60 mg capsule,delayed 60 mg PO QAM 04/05/21 01/01/25 release montelukast 10 mg tablet 10 mg PO DAILY 03/15/23 01/01/25 sucralfate 1 gram tablet 1 g PO TID 03/15/23 01/01/25 vibegron 75 mg tablet (Gemtesa) 75 mg PO DAILY 06/09/23 01/01/25 albuterol sulfate 90 mcg/actuation 2 puff inhalation Q6H PRN 01/19/24 01/01/25 aerosol inhaler Shortness Of Breath Or Wheezing atorvastatin 20 mg tablet 20 mg PO QPM 05/23/24 01/01/25 spironolactone 25 mg tablet 25 mg PO DAILY 01/01/25 01/01/25 Previous Rx's ?Medication ?Instructions ?Recorded bumetanide 2 mg tablet 2 mg PO DAILY #90 tabs 03/01/24 potassium chloride 20 mEq 20 meq PO DAILY #90 tabs 05/06/24 tablet,extended release(part/cryst) metoprolol succinate 25 mg See Rx Instructions .Route 06/04/24 tablet,extended release 24 hr .COMPLEX #180 tabs isosorbide mononitrate 30 mg See Rx Instructions .Route 08/05/24 tablet,extended release 24 hr .COMPLEX #90 tabs Synthroid 150 mcg tablet 150 mcg PO DAILY #30 tabs 11/20/24 (levothyroxine) Allergies Allergy/AdvReac Type Severity Reaction Status Date / Time chlorpromazine Allergy Unknown ALGY-Rash Verified 11/24/24 19:22 diphenhydramine Allergy Unknown Unknown Verified 11/24/24 19:22 Iodinated Contrast Media Allergy Unknown ALGY-Hives Verified 11/24/24 19:22 morphine Allergy ADR-Agitate Verified 11/24/24 19:22 d tramadol Allergy Unknown Verified 11/24/24 19:22 amoxicillin AdvReac Unknown ADR-Nausea Verified 11/24/24 19:22 codeine AdvReac Unknown ADR-Vomitin Verified 11/24/24 19:22 g Penicillins AdvReac Unknown ADR-Vomitin Verified 11/24/24 19:22 g Review of Systems Const: Denies: fever(s), chills, body aches, fatigue or malaise Card: Reports: chest pain, edema (chronic-at baseline) and swelling of feet/ankles (chronic-at baseline); Denies: palpitations, irregular heart rhythm, lightheadedness, syncope or pre-syncope Resp: Reports: dyspnea; Denies: productive cough, non-productive cough, change in phlegm color or hemoptysis GI: Denies: abdominal pain, nausea, vomiting or change in bowel habits : Denies: flank pain, dysuria or hematuria Musc: Reports: extremity swelling ([id number]-[id number] baseline); Denies: neck pain or back pain Skin/Breast: Denies: rash Neuro: Denies: headache(s) or dizziness PFSH ED PFSH: Medical History Chronic hypoxemic respiratory failure Hypercapnic respiratory failure Hx of myocardial infarction Major depressive disorder, single episode, severe without psychotic features Sleep apnea Psychiatric care Diastolic heart failure Chest pain Lower extremity edema Atypical chest pain Cervical radiculopathy Pain of hand Diastolic CHF 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 Other Adopted Social History Smoking and tobacco/nicotine status: current every day tobacco/nicotine user Quit status (tobacco/nicotine): has quit using Year quit tobacco: 2018-5 ciggs/day Alcohol intake: never Substance/Drug Use: never Lives independently: Yes Household members: none Housing: Apartment Current occupational status: disabled Do you think of yourself as: Straight/Heterosexual Current gender identity: Female Physical Exam Const: COMMON NORMALS: no acute distress, average body habitus, patient oriented x3, no limitations, alert and well nourished GENERAL APPEARANCE: cooperative HENMT: COMMON NORMALS: normocephalic and atraumatic HEAD & SCALP: normal to inspection, normocephalic and atraumatic Eye: COMMON NORMALS: no scleral icterus Resp: COMMON NORMALS: normal respiratory effort, No retractions and No use of accessory muscles EFFORT & INSPECTION: No labored, No grunting, No stridor, No Actively coughing and No retractions AUSCULTATION: crackles and rhonchi Cardio: COMMON NORMALS: regular rate and regular rhythm RATE: regular rate RHYTHM: regular rhythm Extremity: NARRATIVE EXTREMITY EXAM: chronic lower extremity lymphedema GENERAL: Yes normal exam except as noted Neuro: COMMON NORMALS: patient oriented x3, moves all extremities, no focal motor deficits and no sensory deficits noted SENSORIUM/ORIENTATION: Yes alert Skin: COMMON NORMALS: no rashes or lesions noted GENERAL SKIN EXAM: no rashes or lesions noted Course ED course: Patient reports feeling better after DuoNeb treatments and IV Solu-Medrol. On re-examination, she was resting comfortably asleep/NAD Vital Signs: Vital signs: Vital Signs Temperature 98.4 F 01/01/25 13:31 Pulse Rate 89 01/01/25 15:38 Respiratory Rate 16 01/01/25 15:38 Blood Pressure 130/83 01/01/25 15:38 Pulse Oximetry 97 01/01/25 15:38 Oxygen Delivery Me thod Nasal Cannula 01/01/25 14:04 Oxygen Flow Rate 4 01/01/25 14:04 MDM - SOB/Dyspnea Medical Decision Making Patient here for complaints of chest pain/COPD. Multiple comorbidities noted and documented. Differential diagnosis includes, but not limited to, viral upper respiratory infection, COPD exacerbation, pneumonia, CHF, ACS, pulmonary edema, pneumothorax, PE, among others. Patient is not requiring more O2 than baseline. She was treated here with DuoNeb x 3 and IV steroids and on re-examination feels better and is sleeping comfortably. CXR is unremarkble. No acute changes in her BNP labs. ACS ruled out with serial EKGs/troponins. At this time, patient is feeling better and is amenable to outpatient follow-up. Patient was counseled on supportive care at home, given return precautions and discharged in stable condition with recommendation for outpatient follow-up with primary care provider. Differential Diagnosis Likely acute exacerbation of chronic obstructive airways disease, congestive heart failure, community acquired pneumonia and asthma with exacerbation Medical Records I reviewed the patient's medical records. Lab Data I reviewed the patient's lab results. 01/01/25 13:55 01/01/25 13:55 Labs/Radiology: Radiology Impressions Chest X-Ray 01/01/25 13:39 IMPRESSION: No acute cardiopulmonary findings. Laboratory Results WBC 5.95 10^3/uL (3.29-11.43) 01/01/25 13:55 RBC 3.89 10^6/uL (3.85-5.65) 01/01/25 13:55 Hgb 11.20 g/dL (11.27-16.99) L 01/01/25 13:55 Hct 37.1 % (36-47) 01/01/25 13:55 MCV 95.4 fl (85-98) 01/01/25 13:55 MCH 28.8 pg (27-33) 01/01/25 13:55 MCHC 30.2 g/dL (30-55) 01/01/25 13:55 RDW 13.3 % (12.1-15.1) 01/01/25 13:55 Plt Count 186 10^3/cmm (157-399) 01/01/25 13:55 MPV 9.7 fL (7.4-10.4) 01/01/25 13:55 Neut % (Auto) 42.7 % 01/01/25 13:55 Lymph % (Auto) 40.2 % 01/01/25 13:55 [place] % (Auto) 10.4 % 01/01/25 13:55 Eos % (Auto) 5.5 % 01/01/25 13:55 Baso % (Auto) 1.0 % 01/01/25 13:55 Neut # (Auto) 2.54 10^3/uL (1.8-7.7) 01/01/25 13:55 Lymph # (Auto) 2.4 10^3/uL (0.8-4.8) 01/01/25 13:55 [place] # (Auto) 0.6 10^3/uL (0.2-0.9) 01/01/25 13:55 Eos # (Auto) 0.3 10^3/uL (0.0-0.8) 01/01/25 13:55 Baso # (Auto) 0.1 10^3/uL (0.0-0.1) 01/01/25 13:55 Nucleated RBC % (auto) 0 % 01/01/25 13:55 Nucleated RBCs # 0.0 /100WBC 01/01/25 13:55 Sodium 140 mmol/L (136-145) 01/01/25 13:55 Potassium 4.0 mmol/L (3.5-5.1) 01/01/25 13:55 Chloride 97 mmol/L (98-107) L 01/01/25 13:55 Carbon Dioxide 30 mmol/L (22-29) H 01/01/25 13:55 Anion Gap 17.0 (5-19) 01/01/25 13:55 BUN 13 mg/dL (8-23) 01/01/25 13:55 Creatinine 0.8 mg/dL (0.5-0.9) 01/01/25 13:55 GFR Calculation 73.2 mL/min (90-130) L 01/01/25 13:55 Glucose 97 mg/dL (65-115) 01/01/25 13:55 Calculated Osmolality 290 mOsm/kg (285-295) 01/01/25 13:55 Calcium 8.9 mg/dL (8.5-10.5) 01/01/25 13:55 Total Bilirubin 0.9 mg/dL (0.15-1.2) 01/01/25 13:55 AST 14 U/L (0-32) 01/01/25 13:55 ALT 9 U/L (0-33) 01/01/25 13:55 Alkaline Phosphatase 102 U/L (35-105) 01/01/25 13:55 Troponin T Baseline 15 ng/L (0-10) H 01/01/25 13:55 Troponin T 120 Minute 12.40 ng/L (0-10) H 01/01/25 15:41 Delta Troponin T -2.60 ABS# (0-10) L 01/01/25 15:41 NT-Pro-B Natriuret Pep 127 pg/mL (0-125) H 01/01/25 13:55 Total Protein 6.1 g/dL (6.6-8.7) L 01/01/25 13:55 Albumin 4.0 g/dL (3.5-5.2) 01/01/25 13:55 Globulin 2.1 g/dL (1.3-4.6) 01/01/25 13:55 Procalcitonin 0.06 ng/mL (0-0.5) 01/01/25 13:55 Influenza A (PCR) Negative (Negative) 01/01/25 14:34 Influenza Type B (PCR) Negative (Negative) 01/01/25 14:34 RSV (PCR) Negative (Negative) 01/01/25 14:34 SARS-CoV-2 (PCR) Negative (Negative) 01/01/25 14:34 All radiology interpretation(s) finalized by discharge EKG Data EKG 1: EKG Interpretation Date: 01/01/25 EKG interpretation time: 13:40 Prior EKG tracings: available for review Interpretation: Sinus rhythm Rate [address] elevation or depression changes noted Normal QTc EKG 2: EKG Interpretation Date: 01/01/25 EKG interpretation time: 16:01 Prior EKG tracings: available for review Interpretation: Sinus rhythm Rate 74 No acute changes were noted from EKG performed earlier on same visit No acute ST elevation or depression changes noted Normal QTc Also reviewed and signed off by Dr. Casey Discharge Plan Discharge Patient Disposition: Home Clinical Impression: COPD (chronic obstructive pulmonary disease), Chest pain Condition: Stable Prescriptions: No Action aspirin [Adult Aspirin Regimen] 81 mg tablet,delayed release (DR/EC) 81 mg PO QAM bumetanide 2 mg tablet 2 mg PO DAILY Qty: 90 3RF levothyroxine [Synthroid] 150 mcg tablet 150 mcg PO DAILY Qty: 30 3RF potassium chloride 20 mEq tablet,ER particles/crystals 20 meq PO DAILY Qty: 90 3RF metoprolol succinate 25 mg tablet extended release 24 hr See Rx Instructions .ROUTE .COMPLEX Qty: 180 2RF Dose Instruction: TAKE 2 TABLETS BY MOUTH EVERY DAY Rx Instructions: TAKE 2 TABLETS BY MOUTH EVERY DAY isosorbide mononitrate 30 mg tablet extended release 24 hr See Rx Instructions .ROUTE .COMPLEX Qty: 90 3RF Dose Instruction: TAKE 1 TABLET BY MOUTH EVERY DAY Rx Instructions: TAKE 1 TABLET BY MOUTH EVERY DAY duloxetine 60 mg capsule,delayed release(DR/EC) 60 mg PO QAM albuterol sulfate 90 mcg/actuation HFA aerosol inhaler 2 puff INHALATION Q6H PRN (Reason: Shortness Of Breath Or Wheezing) atorvastatin 20 mg tablet 20 mg PO QPM spironolactone 25 mg tablet 25 mg PO DAILY sucralfate 1 gram tablet 1 g PO TID montelukast 10 mg tablet 10 mg PO DAILY Gemtesa 75 mg tablet 75 mg PO DAILY Discharge Orders: Discharge ED (Routine); Ordered 01/01/25 Ordered By: Vickie Nelson Referrals: Akila Rivera DO [Primary Care Provider, PUBLICATIONS PRODUCTION SUPERVISOR] Patient Instructions: Patient Portal & Kailyn Instructions Activity Restrictions/Additional Instructions: As we discussed, please follow-up with your primary care provider soon as possible for ER follow-up. You may return to the emergency department at anytime for any further concerns you may have. Print Language: French Coding Level of Care Code ED Pewter Fabricator for Dc Serrato
--- OUTSIDE RECORDS SUMMARY | 2025-01-01 13:44 | XMS_ITS | Clinical Summary ---
Author Organization [facility] Address [address] [place] [address] Phone Care Team Providers Care Telegraph Office Manager Name Role Phone Татьяна Storm STEREO EQUIPMENT REPAIRER Primary Care Provider [phone] Medications No known medications Active Problems No [...] Comments Blood Pressure 138/84 01/19/2021 2:26 PM [employer] CREWMEMBER Pulse 73 01/19/2021 2:26 PM [employer] CREWMEMBER Temperature - - Respiratory Rate - - Oxygen Saturation 96% 01/19/2021 2:26 PM [employer] CREWMEMBER Inhaled Oxygen Concentration - - Weight 130.6 kg (288 lb) 01/19/2021 2:26 PM [employer]OCK[employer] SYSTEM CREWMEMBER Height 170.2 cm (5' 7 ) 01/19/2021 2:26 PM M[employer] ROCK[employer] SYSTEM CREWMEMBER Body Mass Index 45.11 01/19/2021 2:26 PM M[employer]IP[employer] ROCK[employer] SYSTEM CREWMEMBER Plan of Treatment Health Maintenance Due Date Last Done Comments DTAP/TDAP/TD VACCINES (1 - Tdap) 12/25/1983 HPV/Cotest (21-29) 1985 CERVICAL CANCER SCREENING 1994 HPV/Cotest (30-65) 1994 PAP SMEAR 1994 BREAST CANCER SCREENING 2004 COLORECTAL SCREENING 2009 Colorectal Cancer Screening 2009 FIT-DNA Q 3 years 2009 FIT/FOBT Q 1 year 2009 Flex Sig/CT Colonography Q 5 years 2009 RSV VACCINE (60+ or ) (1 - Risk 50-74 years 1-dose series) 2014 ZOSTER VACCINE (1 of 2) 2014 INFLUENZA VACCINE (#1) 2024 HEPATITIS B VACCINES Aged Out No long er eligible based on patient's age to complete this topic Insurance [facility] DUAL COMPLETE HMO [facility] [id number] Member Subscriber Plan / Payer (Ef fective 2020-Present) Name:Crystal Pierre Relation to Subscriber:Self Name:Crystal Pierre Payer ID:[id number] (NAIC) Group ID:[id number] Type:HMO Address: [address] [address] [place] Care Teams Telegraph Office Manager Relationship Specialty Start Date End Date Татьяна Storm FNP [address] [place] [id number] PCP - General Nurse Practitioner Family 02/03/21
[2025-01-01 14:04] VITALS: PULSE 77; RESP 16; O2SAT 97
[2025-01-01 14:08] LABS: Hematocrit 37.1 % (36-47); Hemoglobin 11.20 g/dL (11.27-16.99); Mean Corpuscular HGB Conc 30.2 g/dL (30-55); Mean Corpuscular Hemoglobin 28.8 pg (27-33); Mean Corpuscular Volume 95.4 fl (85-98); Nucleated Red Blood Cells % 0 %; Platelet Count 186 10^3/cmm (157-399); Red Blood Count 3.89 10^6/uL (3.85-5.65); White Blood Count 5.95 10^3/uL (3.29-11.43)
[2025-01-01] MEDS: methylPREDNISolone sod succ 125 mg/2 mL INJ IVP (14:20)
[2025-01-01 14:31] LABS: Troponin(5th) Baseline 15 ng/L (0-10)
[2025-01-01 14:56] LABS: Alanine Aminotransferase 9 U/L (0-33); Albumin Level 4.0 g/dL (3.5-5.2); Alkaline Phosphatase 102 U/L (35-105); Anion Gap 17.0 (5-19); Aspartate Amino Transferase 14 U/L (0-32); Blood Urea Nitrogen 13 mg/dL (8-23); Calcium 8.9 mg/dL (8.5-10.5); Carbon Dioxide 30 mmol/L (22-29); Chloride 97 mmol/L (98-107); Globulin 2.1 g/dL (1.3-4.6); Glucose 97 mg/dL (65-115); NT Pro B Type Natriuretic Pept 127 pg/mL (0-125); Osmolality Calculated 290 mOsm/kg (285-295); Potassium 4.0 mmol/L (3.5-5.1); Procalcitonin 0.06 ng/mL (0-0.5); Sodium 140 mmol/L (136-145); Total Protein 6.1 g/dL (6.6-8.7)
[2025-01-01 15:18] LABS: Respiratory Syncytial Virus Ce NEGATIVE (Negative); SARS-CoV-2 PCR NEGATIVE (Negative)
[2025-01-01 15:38] VITALS: BP 130/83; PULSE 89; RESP 16; O2SAT 97
--- NOTE | 2025-01-01 16:01 | ECG_ITS ---
[facility] Test Date: 2025-01-01 Pat Name: Crystal Pierre Department: Room: Gender: Female Charge Weigher: : 1965 Requested By: Vickie Nelson Order Number: [id number] Khanna MD: Estelle Johnson M.D. Measurements Intervals [place]ley Rate: 74 P: 63 CT: 136 QRS: 52 QRSD: 105 T: 62 QT: 415 QTc: 462 Interpretive Statements SINUS RHYTHM Compared to ECG 01/01/2025 13:40:24 Sinus arrhythmia no longer present Short CT interval no longer present Myocardial infarct finding no longer present Electronically Signed On 01-02-2025 18:00:03 I&C TECH by Estelle Johnson M.D. [email or web address]
[2025-01-01 16:24] LABS: Troponin 5 2HR 12.40 ng/L (0-10)
[2025-01-01 16:26] LABS: Troponin 5 2HR Delta -2.60 ABS# (0-10)
[2025-01-01 16:41] VITALS: BP 106/75; PULSE 73; RESP 15; O2SAT 95
--- NOTE | 2025-01-01 16:44 | PC.NURSE ---
pt states going to call friend to pick her up. on 4L NC at baseline keeping on monitoring at this time.
[2025-01-01 16:46] VITALS: BP 100/73; PULSE 82; RESP 17; O2SAT 93
[2025-01-01 18:43] VITALS: PULSE 80; RESP 17; O2SAT 93
== END 2025-01-01 21:51 | disposition home or self-care (01) ==
PROVIDERS: Emergency Provider Physician Assistant; PCP Family Medicine
DX: J44.9 Chronic obstructive pulmonary disease, unspecified (principal); R07.9 Chest pain, unspecified; Z79.82 Long term (current) use of aspirin; Z11.52 Encounter for screening for COVID-19; Z72.0 Tobacco use; E78.5 Hyperlipidemia, unspecified; I11.0 Hypertensive heart disease with heart failure; I50.30 Unspecified diastolic (congestive) heart failure; Z99.81 Dependence on supplemental oxygen
CPT/HCPCS: 36415; 71045; 80053; 83880; 84145; 84484; 85025; 87637; 93005; 94640; 96374; 99285; J2919; J9999

== ENCOUNTER → 2025-01-10 09:23 | Outpatient (BNVA) | payer MEDICARE, MEDICAID, SELFPAY ==
[2024-07-22 10:43] VITALS: BP 123/72; BMI 39.3
== END ==
PROVIDERS: PCP Family Medicine; Referring Provider Family Medicine; Visit Provider Internal Medicine
DX: J44.9 Chronic obstructive pulmonary disease, unspecified (principal); G47.30 Sleep apnea, unspecified; Z99.81 Dependence on supplemental oxygen; F17.210 Nicotine dependence, cigarettes, uncomplicated; Z71.6 Tobacco abuse counseling
CPT/HCPCS: 99204; 99406; Q3014

== ENCOUNTER → 2025-01-13 10:42 | Outpatient (BNVA) | payer MEDICARE, MEDICAID, SELFPAY ==
[2024-07-22 10:43] VITALS: BP 123/72; BMI 39.3
== END ==
PROVIDERS: PCP Family Medicine; Visit Provider Nurse Practitioner Family
DX: I11.0 Hypertensive heart disease with heart failure (principal); I87.2 Venous insufficiency (chronic) (peripheral); J44.9 Chronic obstructive pulmonary disease, unspecified; I50.33 Acute on chronic diastolic (congestive) heart failure; F17.200 Nicotine dependence, unspecified, uncomplicated
CPT/HCPCS: 99214

== ENCOUNTER 2025-01-17 10:42 | Outpatient (CLI) | payer MEDICARE, MEDICAID, SELFPAY ==
[2024-07-22 10:43] VITALS: BP 123/72; BMI 39.3
--- NOTE | 2025-01-17 10:51 | XRR_ITS ---
PROCEDURE INFORMATION: Exam: XR Left Hip Exam date and time: 01/17/2025 10:58 AM Age: 59 years old Clinical indication: Hip pain; Left hip; Pain in RT knee x few months, trouble walking due to pain. ; Additional info: Left groin pain TECHNIQUE: Imaging protocol: Radiologic exam of the left hip. Views: 2 or 3 views hip with pelvis when performed. COMPARISON: CR XR hip LT 2-3V wo/w pel* [id number] 11/15/2024 7:49 PM FINDINGS: Bones/joints: Demineralization consistent with the patient's age. Mild degenerative changes consistent with the patient's age. Spurring seen posterior superolateral left acetabulum. Degenerative changes pubic bones at symphysis pubis and left SI joint. Partially visualized transsacral stimulating electrode. Soft tissues: Unremarkable. XR/XR hip LT 2-3V wo/w pel* [id number] IMPRESSION: 1. Demineralization consistent with the patient's age. 2. Degenerative changes.
--- NOTE | 2025-01-17 10:52 | XRR_ITS ---
PROCEDURE INFORMATION: Exam: XR Right Knee Exam date and time: 01/17/2025 10:58 AM Age: 59 years old Clinical indication: Right; Pain in RT knee x few months, trouble walking due to pain. ; Additional info: Pain in right knee TECHNIQUE: Imaging protocol: Radiologic exam of the right knee. Views: 3 views. COMPARISON: CR (LOW EXM, ) 07/09/2024 9:44 PM FINDINGS: Bones/joints: Findings similar to previous. Mild demineralization consistent with the patient's age. Slight narrowing of the medial joint compartment of the knee early spurring lateral femoral condyle. Mild to moderate degenerative changes patellofemoral articulation of the narrowing. No acute appearing bony abnormality. Soft tissues: Maybe a small suprapatellar bursa effusion. XR/XR knee RT 4V [id number] IMPRESSION: Degenerative changes patellofemoral articulation. Slight narrowing of the medial joint compartment
== END 2025-01-17 10:43 | disposition home or self-care (01) ==
LOC: RAD 10:46
PROVIDERS: PCP Family Medicine; Visit Provider Family Medicine
DX: M25.561 Pain in right knee (principal); M76.9 Unspecified enthesopathy, lower limb, excluding foot
CPT/HCPCS: 73502; 73564

== ENCOUNTER 2025-01-20 16:42 | Emergency (ER) | payer MEDICARE, MEDICAID, SELFPAY ==
[2024-07-22 10:43] VITALS: BP 123/72; BMI 39.3
[2025-01-20 16:43] VITALS: PULSE 75; RESP 18; TEMP 36.7; O2SAT 93
--- NOTE | 2025-01-20 16:46 | W.ED.SEIZURE ---
HPI - Seizure General: Chief Complaint: Seizure Stated Complaint: Seizure Time Seen by Provider: 01/20/25 16:43 History of Present Illness: HPI Narrative: 59-year-old female with a history of seizure disorder, chronic hypoxemic respiratory failure on 3 L nasal cannula at all times, coronary artery disease, sleep apnea, diastolic heart failure, chronic edema, learning disability, COPD, SVT, hypertension, hypothyroidism and seizure disorder who presents emergency room by ambulance after having a possible seizure. She says she just does not feel good. She is tired. Unclear exactly what happened but apparently there was some sort of seizure-like activity. However she was not postictal. She does have known history of seizures. Currently she has no focal motor deficits appears to be at her baseline. She does state she has malaise. She does tell me she has had some trouble urinating. No loss of continence of bowel or bladder. No head injuries. No tongue injuries. Related Data Home Medications ?Medication ?Instructions ?Recorded ?Confirmed aspirin 81 mg tablet,delayed 81 mg PO QAM 02/15/19 01/13/25 release (Adult Aspirin Regimen) duloxetine 60 mg capsule,delayed 60 mg PO QAM 04/05/21 01/13/25 release montelukast 10 mg tablet 10 mg PO DAILY 03/15/23 01/13/25 sucralfate 1 gram tablet 1 g PO TID 03/15/23 01/13/25 vibegron 75 mg tablet (Gemtesa) 75 mg PO DAILY 06/09/23 01/13/25 albuterol sulfate 90 mcg/actuation 2 puff inhalation Q6H PRN 01/19/24 01/13/25 aerosol inhaler Shortness Of Breath Or Wheezing atorvastatin 20 mg tablet 20 mg PO QPM 05/23/24 01/13/25 spironolactone 25 mg tablet 25 mg PO DAILY 01/01/25 01/13/25 isosorbide mononitrate 30 mg 30 mg PO DAILY 01/13/25 01/13/25 tablet,extended release 24 hr metoprolol succinate 25 mg 50 mg PO DAILY 01/13/25 01/13/25 tablet,extended release 24 hr Previous Rx's ?Medication ?Instructions ?Recorded bumetanide 2 mg tablet 2 mg PO DAILY #90 tabs 03/01/24 potassium chloride 20 mEq 20 meq PO DAILY #90 tabs 05/06/24 tablet,extended release(part/cryst) Synthroid 150 mcg tablet 150 mcg PO DAILY #30 tabs 11/20/24 (levothyroxine) budesonide 160 mcg-glycopyr 9 2 inh inhalation BID #5.9 grams 01/10/25 mcg-formot 4.8 mcg/actuation HFA inhaler (Breztri Aerosphere) mucus clearing device #1 ea 01/10/25 cefdinir 300 mg capsule 300 mg PO BID 10 days #20 caps 01/20/25 Allergies Allergy/AdvReac Type Severity Reaction Status Date / Time chlorpromazine Allergy Unknown ALGY-Rash Verified 01/13/25 10:48 diphenhydramine Allergy Unknown Unknown Verified 01/13/25 10:48 Iodinated Contrast Media Allergy Unknown ALGY-Hives Verified 01/13/25 10:48 morphine Allergy ADR-Agitate Verified 01/13/25 10:48 d tramadol Allergy Unknown Verified 01/13/25 10:48 amoxicillin AdvReac Unknown ADR-Nausea Verified 01/13/25 10:48 codeine AdvReac Unknown ADR-Vomitin Verified 01/13/25 10:48 g Penicillins AdvReac Unknown ADR-Vomitin Verified 01/13/25 10:48 g Review of Systems Narrative: Constitutional symptoms: Negative except as documented in HPI. Skin symptoms: Negative except as documented in HPI. Eye symptoms: Negative except as documented in HPI. ENMT symptoms: Negative except as documented in HPI. Respiratory symptoms: Negative except as documented in HPI. Cardiovascular symptoms: Negative except as documented in HPI. Gastrointestinal symptoms: Negative except as documented in HPI. Genitourinary symptoms: Negative except as documented in HPI. Musculoskeletal symptoms: Negative except as documented in HPI. Neurologic symptoms: Negative except as documented in HPI. Psychiatric symptoms: Negative except as documented in HPI. Endocrine symptoms: Negative except as documented in HPI. 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 Other Adopted Social History Smoking and tobacco/nicotine status: current some day tobacco/nicotine user Quit status (tobacco/nicotine): has quit using Year quit tobacco: 2019 - -5 ciggs/day Alcohol intake: never Substance/Drug Use: never Lives independently: Yes Household members: none Housing: Apartment Current occupational status: disabled Do you think of yourself as: Straight/Heterosexual Current gender identity: Female Physical Exam Narrative: EXAM NARRATIVE: General: Alert, no acute distress. Skin: Warm, dry. Head: Normocephalic, atraumatic. Neck: Supple, trachea midline. Eye: Extraocular movements are intact. Ears, nose, mouth and throat: Dry oral mucosa Cardiovascular: Regular, Normal peripheral perfusion. Respiratory: Lungs are clear to auscultation, respirations are non-labored, breath sounds are equal, Symmetrical chest wall expansion. Gastrointestinal: Soft, Nontender, Non distended Musculoskeletal: Normal ROM, no deformity. Neurological: Alert and oriented, No focal neurological deficit observed. Psychiatric: Cooperative, appropriate mood & affect. Course Vital Signs: Vital signs: Vital Signs Temperature 98.1 F 01/20/25 16:43 Pulse Rate 73 01/20/25 18:03 Respiratory Rate 18 01/20/25 16:43 Pulse Oximetry 98 01/20/25 18:03 Oxygen Delivery Me thod Nasal Cannula 01/20/25 18:03 Oxygen Flow Rate 3 01/20/25 18:03 MDM - Seizure MDM Narrative Medical decision making narrative: Medical decision making Patient's reason for coming to the emergency room: Social determinants: I reviewed the patient's medical record. 59-year-old female with a history of seizure disorder, chronic hypoxemic respiratory failure on 3 L nasal cannula at all times, coronary artery disease, sleep apnea, diastolic heart failure, chronic edema, learning disability, COPD, SVT, hypertension, hypothyroidism and seizure disorder I reviewed the patient's current home meds I do not see any seizure medications on the patient's chart. Alternate historians: None Differential diagnosis for this patient with a complaint of seizure like activity would include but not be limited to, and based on the above HPI, review of systems and physical exam: seizure, DT's, alcohol withdrawal, brain malignancy, pseudo-seizure, syncope. Orders placed to evaluate differential diagnosis based on the above differential, HPI and physical exam Lab Review: Laboratory results were reviewed and interpreted by myself the emergency room physician. No leukocytosis. No anemia. No renal failure. Lactic acid was normal at 1.2. So she likely did not have any extensive tonic-clonic seizure activity. Flu COVID and RSV are negative. Patient does have a urinary tract infection Assessment of risk: Level of risk: Moderate risk patient. Multiple comorbidities. Hospitalization considerations: No indication for hospitalization today Reexamination: Patient remained stable. No increased work of breathing. No altered mental status. No focal motor deficits. Assessment and plan: Urinary tract infection Dehydration ? IV Rocephin and IV fluids. - Discharged home - Discussed plan with patient. Answered any questions. - Evaluation and treatment of this problem were appropriate in the emergency setting. Lab Data 01/20/25 17:53 01/20/25 17:53 Labs: Laboratory Results WBC 8.50 10^3/uL (3.29-11.43) 01/20/25 17:53 RBC 4.11 10^6/uL (3.85-5.65) 01/20/25 17:53 Hgb 12.00 g/dL (11.27-16.99) 01/20/25 17:53 Hct 38.3 % (36-47) 01/20/25 17:53 MCV 93.2 fl (85-98) 01/20/25 17:53 MCH 29.2 pg (27-33) 01/20/25 17:53 MCHC 31.3 g/dL (30-55) 01/20/25 17:53 RDW 13.5 % (12.1-15.1) 01/20/25 17:53 Plt Count 297 10^3/cmm (157-399) 01/20/25 17:53 MPV 9.6 fL (7.4-10.4) 01/20/25 17:53 Neut % (Auto) 57.7 % 01/20/25 17:53 Lymph % (Auto) 30.7 % 01/20/25 17:53 [place] % (Auto) 7.9 % 01/20/25 17:53 Eos % (Auto) 2.4 % 01/20/25 17:53 Baso % (Auto) 0.8 % 01/20/25 17:53 Neut # (Auto) 4.91 10^3/uL (1.8-7.7) 01/20/25 17:53 Lymph # (Auto) 2.6 10^3/uL (0.8-4.8) 01/20/25 17:53 [place] # (Auto) 0.7 10^3/uL (0.2-0.9) 01/20/25 17:53 Eos # (Auto) 0.2 10^3/uL (0.0-0.8) 01/20/25 17:53 Baso # (Auto) 0.1 10^3/uL (0.0-0.1) 01/20/25 17:53 Nucleated RBC % (auto) 0 % 01/20/25 17:53 Nucleated RBCs # 0.0 /100WBC 01/20/25 17:53 Sodium 139 mmol/L (136-145) 01/20/25 17:53 Potassium 4.0 mmol/L (3.5-5.1) 01/20/25 17:53 Chloride 97 mmol/L (98-107) L 01/20/25 17:53 Carbon Dioxide 32 mmol/L (22-29) H 01/20/25 17:53 Anion Gap 14.0 (5-19) 01/20/25 17:53 BUN 18 mg/dL (8-23) 01/20/25 17:53 Creatinine 1.0 mg/dL (0.5-0.9) H 01/20/25 17:53 GFR Calculation 56.6 mL/min (90-130) L 01/20/25 17:53 Glucose 100 mg/dL (65-115) 01/20/25 17:53 Calculated Osmolality 290 mOsm/kg (285-295) 01/20/25 17:53 Lactic Acid 1.2 mmol/L (0.5-2.2) 01/20/25 17:53 Calcium 8.7 mg/dL (8.5-10.5) 01/20/25 17:53 Total Bilirubin 1.0 mg/dL (0.15-1.2) 01/20/25 17:53 AST 19 U/L (0-32) 01/20/25 17:53 ALT 8 U/L (0-33) 01/20/25 17:53 Alkaline Phosphatase 91 U/L (35-105) 01/20/25 17:53 Total Protein 6.9 g/dL (6.6-8.7) 01/20/25 17:53 Albumin 3.9 g/dL (3.5-5.2) 01/20/25 17:53 Globulin 3.0 g/dL (1.3-4.6) 01/20/25 17:53 Urine Color Yellow (Yellow) 01/20/25 18:50 Urine Appearance Cloudy (CLEAR) A 01/20/25 18:50 Urine pH 5.5 (5-7) 01/20/25 18:50 Ur Specific [place] 1.017 (1.005-1.030) 01/20/25 18:50 Urine Protein Trace (Negative) A 01/20/25 18:50 Urine Glucose (UA) Negative (Normal) 01/20/25 18:50 Urine Ketones Negative (Negative) 01/20/25 18:50 Urine Blood Non-haemolysed trace (Negative) 01/20/25 18:50 Urine Nitrate Negative (Negative) 01/20/25 18:50 Urine Bilirubin Negative (Negative) 01/20/25 18:50 Urine Urobilinogen 0.2 mg/dL (Negative) 01/20/25 18:50 Ur Leukocyte Esterase 2+ (Negative) A 01/20/25 18:50 Urine RBC 0-2 /hpf (0-2) 01/20/25 18:50 Urine WBC >100 /hpf (0-5) H 01/20/25 18:50 Ur Squamous Epith Cells 0-5 /hpf (0-5) 01/20/25 18:50 Amorphous Sediment Not Reportable 01/20/25 18:50 Urine Bacteria 1+ /hpf (NONE) H 01/20/25 18:50 Hyaline Casts 5.36 /lpf 01/20/25 18:50 Influenza A (PCR) Negative (Negative) 01/20/25 18:00 Influenza Type B (PCR) Negative (Negative) 01/20/25 18:00 RSV (PCR) Negative (Negative) 01/20/25 18:00 SARS-CoV-2 (PCR) Negative (Negative) 01/20/25 18:00 No radiology studies performed this visit Discharge Plan Discharge Patient Disposition: Home Clinical Impression: Urinary tract infection, Dehydration Condition: Stable Prescriptions: New cefdinir 300 mg capsule 300 mg PO BID 10 Days Qty: 20 0RF No Action aspirin [Adult Aspirin Regimen] 81 mg tablet,delayed release (DR/EC) 81 mg PO QAM bumetanide 2 mg tablet 2 mg PO DAILY Qty: 90 3RF (DME) mucus clearing device Device See Rx Instructions .MEDSUPPLY Qty: 1 0RF Rx Instructions: As directed Elroy Aerosphere 160-9-4.8 mcg/actuation HFA aerosol inhaler 2 inh inhalation BID Qty: 5.9 0RF isosorbide mononitrate 30 mg tablet extended release 24 hr 30 mg PO DAILY metoprolol succinate 25 mg tablet extended release 24 hr 50 mg PO DAILY levothyroxine [Synthroid] 150 mcg tablet 150 mcg PO DAILY Qty: 30 3RF potassium chloride 20 mEq tablet,ER particles/crystals 20 meq PO DAILY Qty: 90 3RF duloxetine 60 mg capsule,delayed release(DR/EC) 60 mg PO QAM albuterol sulfate 90 mcg/actuation HFA aerosol inhaler 2 puff INHALATION Q6H PRN (Reason: Shortness Of Breath Or Wheezing) atorvastatin 20 mg tablet 20 mg PO QPM spironolactone 25 mg tablet 25 mg PO DAILY sucralfate 1 gram tablet 1 g PO TID montelukast 10 mg tablet 10 mg PO DAILY Gemtesa 75 mg tablet 75 mg PO DAILY Discharge Orders: Discharge ED (Routine); Ordered 01/20/25 Ordered By: Teena Ordaz Referrals: Akila Rivera DO [Primary Care Provider, DIETARY SERVICES DIRECTOR] Discharge Diet: Usual diet Discharge Activity: Increase activity as tolerated Patient Instructions: Urinary Tract Infection in Women (ED), Opioid Safety, Pain Management, Patient Portal & Kailyn Instructions Activity Restrictions/Additional Instructions: [facility]. You have been screened and evaluated and felt safe for discharge. Health conditions do change or evolve sometimes and as such it is important that you follow up with your Primary Doctor to be re checked, 3-5 days is a general good time frame for follow up. You are always welcome to return to the ED for re assessment if your symptoms are worsening or you have new concerns. (Please note that included in your discharge packet is information concerning opioid safety and pain management. This information is given to all patients who are discharged from the ER regardless of their discharge diagnosis or the medicines they usually take or are prescribed.) Print Language: Burmese Coding Level of Care Code ED Vehicle Washer for Dc Serrato
[2025-01-20 16:53] VITALS: O2SAT 97
[2025-01-20 18:03] VITALS: PULSE 73; O2SAT 98
[2025-01-20 18:07] LABS: Hematocrit 38.3 % (36-47); Hemoglobin 12.00 g/dL (11.27-16.99); Mean Corpuscular HGB Conc 31.3 g/dL (30-55); Mean Corpuscular Hemoglobin 29.2 pg (27-33); Mean Corpuscular Volume 93.2 fl (85-98); Nucleated Red Blood Cells % 0 %; Platelet Count 297 10^3/cmm (157-399); Red Blood Count 4.11 10^6/uL (3.85-5.65); White Blood Count 8.50 10^3/uL (3.29-11.43)
[2025-01-20 18:26] LABS: Alanine Aminotransferase 8 U/L (0-33); Albumin Level 3.9 g/dL (3.5-5.2); Alkaline Phosphatase 91 U/L (35-105); Anion Gap 14.0 (5-19); Aspartate Amino Transferase 19 U/L (0-32); Blood Urea Nitrogen 18 mg/dL (8-23); Calcium 8.7 mg/dL (8.5-10.5); Carbon Dioxide 32 mmol/L (22-29); Chloride 97 mmol/L (98-107); Globulin 3.0 g/dL (1.3-4.6); Glucose 100 mg/dL (65-115); Osmolality Calculated 290 mOsm/kg (285-295); Potassium 4.0 mmol/L (3.5-5.1); Sodium 139 mmol/L (136-145); Total Protein 6.9 g/dL (6.6-8.7)
[2025-01-20 18:27] LABS: Lactic Sepsis W/Reflex 1.2 mmol/L (0.5-2.2)
[2025-01-20 18:45] LABS: Respiratory Syncytial Virus Ce NEGATIVE (Negative); SARS-CoV-2 PCR NEGATIVE (Negative)
[2025-01-20 18:57] LABS: Glucose Urine UA Negative (Normal); Nitrate Urine Negative (Negative); Specific Gravity, Urine 1.017 (1.005-1.030)
--- OUTSIDE RECORDS SUMMARY | 2025-01-20 19:27 | XMS_ITS | Clinical Summary ---
Author Organization [facility] Address [address] [place] [address] Phone Care Team Providers Care Subscription Crew Leader Name Role Phone Татьяна Storm BRITTNEY Primary Care Provider [phone] Medications No known medications Active Problems No [...] Comments Blood Pressure 138/84 01/19/2021 2:26 PM [employer]ICER Pulse 73 01/19/2021 2:26 PM [employer]ION OFFICER Temperature - - Respiratory Rate - - Oxygen Saturation 96% 01/19/2021 2:26 PM [employer]ILE [employer]ENTION OFFICER Inhaled Oxygen Concentration - - Weight 130.6 kg (288 lb) 01/19/2021 2:26 PM JUVENILE [employer]ENTION OFFICER Height 170.2 cm (5' 7 ) 01/19/2021 2:26 PM JUVENILE DETENTION OFFICER Body Mass Index 45.11 01/19/2021 2:26 PM JUVENILE DETENTION OFFICER Plan of Treatment Health Maintenance Due Date [...] patient's age to complete this topic Insurance [facility] DUAL COMPLETE HMO [facility] [id number] [place] Care Teams Subscription Crew Leader Relationship Specialty Start Date End Date Татьяна Storm FNP [address] [place] [id number] PCP - General Nurse Practitioner Family 02/03/21
[2025-01-20] MEDS: cefTRIAXone 1,000 mg SDV 1000 MG IVP (19:59)
[2025-01-20 20:01] VITALS: BP 134/89; PULSE 70; O2SAT 100
[2025-01-20 20:56] VITALS: BP 142/89; PULSE 71; O2SAT 90
[2025-01-20 20:57] VITALS: BP 142/89; PULSE 69; O2SAT 92
== END 2025-01-20 21:06 | disposition home or self-care (01) ==
PROVIDERS: Emergency Provider Emergency Medicine; PCP Family Medicine
DX: N39.0 Urinary tract infection, site not specified (principal); E86.0 Dehydration; Z11.52 Encounter for screening for COVID-19; Z72.0 Tobacco use; J44.9 Chronic obstructive pulmonary disease, unspecified; I11.0 Hypertensive heart disease with heart failure; I50.30 Unspecified diastolic (congestive) heart failure; Z79.82 Long term (current) use of aspirin; I25.10 Atherosclerotic heart disease of native coronary artery without angina pectoris; Z99.81 Dependence on supplemental oxygen
CPT/HCPCS: 36415; 80053; 81001; 83605; 85025; 87040; 87077; 87086; 87186; 87637; 96374; 99284; J0696; J7030